=== PATIENT | female | born 1965 | race Caucasian/White ===

== ENCOUNTER → 2020-07-25 13:47 | Outpatient (BNVA) | payer MEDICAID, SELFPAY | PROVIDERS: Visit Provider Physician Assistant | DX: Z47.1 Aftercare following joint replacement surgery (principal); Z48.02 Encounter for removal of sutures; Z96.652 Presence of left artificial knee joint | CPT/HCPCS: 99212 ==

== ENCOUNTER → 2020-08-22 13:46 | Outpatient (BNVA) | payer MEDICAID, SELFPAY | PROVIDERS: PCP Internal Medicine; Referring Provider Internal Medicine; Visit Provider Orthopaedic Surgery | DX: Z47.1 Aftercare following joint replacement surgery (principal); Z96.652 Presence of left artificial knee joint | CPT/HCPCS: 99212 ==

== ENCOUNTER 2020-09-20 10:00 | Outpatient (RCR) | payer MEDICAID, SELFPAY ==
--- NOTE | 2020-08-09 17:09 | MHC.PT.EP ---
[facility] [place] Office [place] Office [place] Office [address] Kevin Womack [address] [phone] F: [phone] F: [phone] F: [phone] F: [phone] Physical Therapy Plan of Care Date of Evaluation: 08/09/20 Date of Surgery: 07/09/2020 Diagnosis: presence of left artificial knee joint Assessment: pt presents to physical therapy with pain, decreased range of motion, decreased strength, impaired functional mobility, impaired postural awareness, and gait deviations. pt is a good candidate for skilled PT due to age, potential remediation of impairments, typical disease/condition progression and prognosis, comorbidities, and motivation. pt would benefit from tailored strengthening and stretching exercise program, functional training, gait training, postural re-training, neuromuscular re-education, modalities as needed for pain, and equipment safety demonstration. Frequency and Duration: The patient will be seen 2x/wk for 6 wks Short Term Goals: pt will be I w/ HEP to promote self-management of condition. pt will improve L knee extension to 0 deg to remediate gait impairments on even ground w/ LRAD. Roll Out Manager Goals: pt will ascend/descend 12 stairs using reciprocal pattern and LRAD to facilitate access to primary living spaces w/in home. pt will ambulate >1500' w/ LRAD on even ground to facilitate return to community ambulation. Treatment Plan: Modalities to reduce pain, spasms and effusion. Manual therapy to restore motion and function. Therapeutic exercise to improve strength and flexibility. Neuromuscular re-education for posture and balance. Therapeutic activities to return to functional activities of daily living. Please sign and return to therapist. Thank you for your referral.
--- NOTE | 2020-09-20 11:13 | MHC.PT.DC ---
[facility] [place] Office [place] Office [place] Office [address] Kevin Womack [address] [phone] F: [phone] F: [phone] F: [phone] F: [phone] Physical Therapy Discharge Report Diagnosis: presence of left artificial knee joint Date of Surgery: 07/09/2020 Date of Evaluation: 08/09/20 Date of Discharge: 09/20/20 Treatments to Date: 11 Cancellations to Date: 0 No Shows to Date: 0 Discharge Status: Achieved Goals Improved Function Independent with HEP Discharge Summary: The patient has improved in her pain severity, pain frequency, and ability to tolerate therapeutic exercise and activity. She reported a statistically significant improvement in her self-reported outcome measure, LEFI. She has achieved full ROM but requires cueing to push her range to maintain the gains she has to this point. She does not feel limited at home and is able to do all the activities she needs to do. She was educated to continue doing her exercises at home to gain strength and continue to work on her range of motion. She was also educated to continue icing her knee at home after exercise. The patient is discharged from this physical therapy plan of care. Electronically signed by: Yarelis Yeh PT, DPT Please sign and return to therapist. Thank you for your referral.
== END 2020-09-20 11:13 | disposition other institution (70) ==
LOC: HO.PT 10:00
PROVIDERS: PCP Internal Medicine; Visit Provider Physician Assistant
DX: Z47.1 Aftercare following joint replacement surgery (principal); Z96.652 Presence of left artificial knee joint
CPT/HCPCS: 97110; 97140; 97161; 97530

== ENCOUNTER → 2020-09-24 13:41 | Outpatient (BNVA) | payer MEDICAID, SELFPAY | PROVIDERS: PCP Internal Medicine; Visit Provider Physician Assistant | DX: M65.322 Trigger finger, left index finger (principal); M65.332 Trigger finger, left middle finger | CPT/HCPCS: 20550; 99202; J1100 ==

== ENCOUNTER 2020-10-22 14:03 | Outpatient (REF) | payer MEDICAID, SELFPAY | END 2020-10-22 14:04 | disposition home or self-care (01) | LOC: HO.HOSX 14:03 | PROVIDERS: Visit Provider Orthopaedic Surgery | DX: Z13.89 Encounter for screening for other disorder (principal) ==

== ENCOUNTER 2020-10-23 13:38 | Outpatient (REF) | payer MEDICAID, SELFPAY ==
--- NOTE | 2020-10-23 13:40 | XR_ITS ---
EXAMINATION: XR KNEE STANDING, BILATERAL XR KNEE, LEFT CLINICAL INFORMATION: Bilateral knee pain. COMPARISON: Left knee radiographs dated 07/10/2020. TECHNIQUE: AP weightbearing view of the right and left knee. Lateral view of the left knee. FINDINGS: Total right knee arthroplasty. No acute hardware or osseous fracture. No perihardware lucency. No abnormal soft tissue calcification. Total left knee arthroplasty. No acute hardware or osseous fracture. No perihardware lucency. Small superior patellar enthesophyte. Small joint effusion. XR/XR knee standing BI IMPRESSION: 1. Total left knee arthroplasty without evidence of complication. Small joint effusion. 2. Total right knee arthroplasty without evidence of complication.
--- NOTE | 2020-10-23 13:40 | XR_ITS ---
EXAMINATION: XR KNEE STANDING, BILATERAL XR KNEE, LEFT CLINICAL INFORMATION: Bilateral knee pain. COMPARISON: Left knee radiographs dated 07/10/2020. TECHNIQUE: AP weightbearing view of the right and left knee. Lateral view of the left knee. FINDINGS: Total right knee arthroplasty. No acute hardware or osseous fracture. No perihardware lucency. No abnormal soft tissue calcification. Total left knee arthroplasty. No acute hardware or osseous fracture. No perihardware lucency. Small superior patellar enthesophyte. Small joint effusion. XR/XR knee LT 2V IMPRESSION: 1. Total left knee arthroplasty without evidence of complication. Small joint effusion. 2. Total right knee arthroplasty without evidence of complication.
== END 2020-10-23 13:39 | disposition home or self-care (01) ==
LOC: HO.HOSX 13:38
PROVIDERS: Visit Provider Orthopaedic Surgery
DX: M25.562 Pain in left knee (principal); M25.561 Pain in right knee; J45.40 Moderate persistent asthma, uncomplicated; Z91.09 Other allergy status, other than to drugs and biological substances
CPT/HCPCS: 73560; 73565; 99212

== ENCOUNTER → 2020-10-26 09:54 | Outpatient (BNVA) | payer MEDICAID, SELFPAY | PROVIDERS: PCP Internal Medicine; Visit Provider Urology | DX: Z76.89 Persons encountering health services in other specified circumstances (principal) ==

== ENCOUNTER 2020-10-30 14:59 | Outpatient (REF) | payer MEDICAID, SELFPAY ==
--- NOTE | 2020-10-31 12:43 | XR_ITS ---
EXAMINATION: XR SHOULDER, RIGHT CLINICAL INFORMATION: Pain and right shoulder. COMPARISON: None TECHNIQUE: AP external rotation, Grashey, scapular Y, and axillary views of the right shoulder. FINDINGS: There is loss of glenohumeral joint space and AC joint space with periarticular spurring. No visible acute fracture, dislocation or lytic process seen. The soft tissues are normal. 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
== END 2020-10-30 15:00 | disposition home or self-care (01) ==
LOC: HO.HOSX 14:59
PROVIDERS: Visit Provider Orthopaedic Surgery
DX: M25.511 Pain in right shoulder (principal)
CPT/HCPCS: 73030

== ENCOUNTER → 2020-10-31 12:42 | Outpatient (BNVA) | payer MEDICAID, SELFPAY | PROVIDERS: PCP Internal Medicine; Visit Provider Orthopaedic Surgery | DX: M75.41 Impingement syndrome of right shoulder (principal) | CPT/HCPCS: 20610; 99212; J1040 ==

== ENCOUNTER 2020-11-21 15:42 | Outpatient (REF) | payer MEDICAID, SELFPAY ==
--- NOTE | ~2020-11-21 | MM_ITS ---
EXAMINATION: MM SCREENING DIGITAL BREAST TOMOSYNTHESIS, BILATERAL CLINICAL INFORMATION: Screening. Asymptomatic. The lifetime risk of breast cancer based on the Tyrer-Cuzick Model is 5.6%. COMPARISON: Mammography: May 06, 2019 and studies dating back to August 20, 2012 TECHNIQUE: Digital breast tomosynthesis is performed in both the craniocaudal and mediolateral oblique views along with computer-aided detection (CAD). Synthesized 2D images are generated from the tomosynthesis. FINDINGS: There are scattered areas of fibroglandular density (ACR BI-RADS breast composition Category b). There are no significant masses, abnormal calcifications, or other abnormalities. MM/MM tomosynthesis screening BI IMPRESSION: There are no significant changes from prior study. ASSESSMENT: BI-RADS 1: Negative RECOMMENDATION: Routine annual mammography screening. This patient's information was entered into a reminder system with a target due date for their next mammogram.
== END 2020-11-21 15:43 | disposition home or self-care (01) ==
LOC: HO.MAMMO 15:42
PROVIDERS: Visit Provider Internal Medicine
DX: Z12.31 Encounter for screening mammogram for malignant neoplasm of breast (principal)
CPT/HCPCS: 77063; 77067

== ENCOUNTER 2020-12-19 15:00 | Outpatient (REF) | payer MEDICAID, SELFPAY ==
[2020-12-23 12:07] LABS: HPV mRNA E6/E7 rflx Not Detected (Not Detected)
== END 2020-12-19 15:01 | disposition home or self-care (01) ==
LOC: HO.LAB 15:00
PROVIDERS: PCP Internal Medicine; Visit Provider Obstetrics & Gynecology
DX: Z01.419 Encounter for gynecological examination (general) (routine) without abnormal findings (principal); Z11.51 Encounter for screening for human papillomavirus (HPV); N95.8 Other specified menopausal and perimenopausal disorders
CPT/HCPCS: 36415; 87624; 88142

== ENCOUNTER → 2021-04-02 09:24 | Outpatient (BNVA) | payer MEDICAID, SELFPAY | PROVIDERS: PCP Internal Medicine; Visit Provider Orthopaedic Surgery | DX: M75.41 Impingement syndrome of right shoulder (principal) | CPT/HCPCS: 20610; 99212; J1040 ==

== ENCOUNTER 2021-04-02 13:45 | Outpatient (RCR) | payer MEDICAID, SELFPAY | END 2021-04-06 13:19 | disposition home or self-care (01) | LOC: HO.PT 13:45 | PROVIDERS: PCP Internal Medicine; Visit Provider Orthopaedic Surgery | DX: M54.40 Lumbago with sciatica, unspecified side (principal) | CPT/HCPCS: 97112; 97161 ==

== ENCOUNTER 2021-04-04 17:20 | Emergency (ER) | payer MEDICAID, SELFPAY ==
[2021-04-04 17:50] VITALS: BP 148/80; PULSE 53; RESP 18; TEMP 36.4; O2SAT 98; BMI 29.0
[2021-04-04] MEDS: Diphth,Pertus(ACell),Tet Adult 0.5 ML SYRINGE IM (19:13)
--- NOTE | 2021-04-04 19:35 | ED_ITS ---
HPI - Wound/Laceration General Chief Complaint: Wound/Laceration Stated Complaint: toe lac Time Seen by Provider: 04/04/21 18:33 History of Present Illness HPI narrative: Patient complains of laceration to right small toe and nail avulsion, she was walking in sandals hit into something and had bleeding and noticed the toe was nail was off as well as a cut to her right little toe Related Data Previous Rx's Medication Instructions Recorded sennosides 8.6 mg capsule 8.6 mg PO DAILY #1 cap 07/12/20 sennosides 8.6 mg capsule 8.6 mg PO BEDTIME #30 cap 07/26/20 Advair Diskus 250 mcg-50 mcg/dose 1 inh INHALATION BID #60 ea NS 08/15/20 powder for inhalation diclofenac sodium 75 mg 75 mg PO BID #60 tab 08/22/20 tablet,delayed release tamsulosin 0.4 mg capsule 0.4 mg PO DAILY 30 Days #30 cap 10/15/20 estradiol 10 mcg vaginal tablet 10 mcg VAGINAL DAILY #30 tab 12/19/20 amoxicillin 500 mg tablet 2,000 mg PO ONCE 1 Days #4 tab 02/13/21 Allergies Allergy/AdvReac Type Severity Reaction Status Date / Time No Known Allergies Allergy Verified 04/04/21 17:50 Review of Systems Review of Systems: positive for laceration and avulsion of nail to right small toe Negatives are no numbness no weakness no tingling, no other injury Yes all other systems are reviewed and are negative [facility]LY [facility] Past Medical History Source: nursing notes reviewed Medical History Hesitancy of micturition Moderate persistent asthma Surgical History History of total left knee replacement (~06/2020) Social History Social History Alcohol intake: former Advance Directives: No Advance Directives Information Provided: No Patient : No Current occupational status: unemployed Current occupation: Right Handed Gender identity: female Physical Exam Vital Signs: Vital Signs: Last Vital Signs Temp 97.6 F 04/04/21 17:50 Pulse 53 04/04/21 17:50 Resp 18 04/04/21 17:50 BP 148/80 H 04/04/21 17:50 Pulse Ox 98 04/04/21 17:50 Body Mass Index 29.0 general appearance no acute distress Head is normocephalic atraumatic Neck is supple Respiratory no distress The back full range of motion neck Extremities full range of motion x4 The right 5th toe has no tenderness or swelling but the nail is avulsed and there is a superficial 1 cm laceration on the distal phalanx of the toe, otherwise neurovascular intact Course Course Course Narrative: superficial laceration of the right big toe was cleansed and irrigated with normal saline, Steri-Strips are applied and a sterile dressing is applied for the nail avulsion and the superficial laceration of the toe Toe had full range of motion and no evidence of fracture on physical exam Discharge Plan Discharge Clinical Impression: Laceration, Avulsion of nail Patient Disposition: Home, Self-Care Additional Instructions: I applied tape to the small laceration and you can remove the tape and 5 days The nail was off and it should grow back on its own over time Return any time any sign of infection any worse condition You got a tetanus shot Prescriptions: No Action senna 8.6 mg capsule 8.6 mg PO DAILY Qty: 1 RF: 0 senna 8.6 mg capsule 8.6 mg PO BEDTIME Qty: 30 RF: 0 fluticasone propion-salmeterol [Advair Diskus] 250-50 mcg/dose blister with device 1 inh inhalation BID Qty: 60 RF: 3 tamsulosin 0.4 mg capsule 0.4 mg PO DAILY 30 Days Qty: 30 RF: 6 amoxicillin 500 mg tablet 2,000 mg PO ONCE 1 Days Qty: 4 RF: 3 estradiol 10 mcg tablet 10 mcg vaginal DAILY Qty: 30 RF: 8 diclofenac sodium 75 mg tablet,delayed release (DR/EC) 75 mg PO BID Qty: 60 RF: 2 Interventions: ED Discharge Assessment Last Done: 04/04/21 19:42 Discharge Date/Time: 04/04/21 19:44
== END 2021-04-04 19:44 | disposition home or self-care (01) ==
PROVIDERS: Emergency Provider Emergency Medicine; PCP Internal Medicine
DX: S91.214A Laceration without foreign body of right lesser toe(s) with damage to nail, initial encounter (principal); J45.40 Moderate persistent asthma, uncomplicated; Z79.899 Other long term (current) drug therapy; W18.40XA Slipping, tripping and stumbling without falling, unspecified, initial encounter; Y93.01 Activity, walking, marching and hiking; Y92.9 Unspecified place or not applicable; Y99.9 Unspecified external cause status
CPT/HCPCS: 90471; 90715; 99284

== ENCOUNTER → 2021-04-17 15:33 | Outpatient (BNVA) | payer MEDICAID, SELFPAY | PROVIDERS: PCP Internal Medicine; Visit Provider Internal Medicine Pulmonary Disease | DX: J45.40 Moderate persistent asthma, uncomplicated (principal); Z91.09 Other allergy status, other than to drugs and biological substances | CPT/HCPCS: 99212 ==

== ENCOUNTER 2021-05-11 12:58 | Emergency (ER) | payer MEDICAID, SELFPAY ==
--- NOTE | ~2021-05-11 | XR_ITS ---
EXAMINATION: XR CHEST CLINICAL INFORMATION: Chest pain COMPARISON: Chest 10/17/2019 TECHNIQUE: Frontal view of the chest was obtained. FINDINGS: The lungs are well-expanded and clear. The heart size and pulmonary vascularity is normal. There is moderate spondylosis dorsal spine. No lytic process seen. XR/XR chest 1V IMPRESSION: Unremarkable chest exam. Moderate dorsal spine spondylosis.
[2021-05-11 13:00] VITALS: BP 120/65; PULSE 74; RESP 18; TEMP 37; O2SAT 97; BMI 27.1
--- NOTE | 2021-05-11 13:26 | ECG_ITS ---
Test Reason : SOB Blood Pressure : / mmHG Vent. Rate : 061 BPM Atrial Rate : 061 BPM P-R Int : 142 ms QRS Dur : 094 ms QT Int : 410 ms P-R-T Axes : 023 010 025 degrees QTc Int : 412 ms Normal sinus rhythm Nonspecific ST and T wave abnormality Abnormal ECG When compared with ECG of 19-JUN-2020 10:56, No significant change was found Referred By: Catrachito Harris Electronically Signed By:MARY OLIVEROS
--- NOTE | 2021-05-11 13:27 | ED.URI ---
HPI - URI/Sore Throat General Chief Complaint: Upper Respiratory Symptoms Stated Complaint: SOB Time Seen by Provider: 05/11/21 13:26 Source: patient Mode of arrival: ambulatory History of Present Illness HPI Narrative: THIS IS OF 56 YEARS OLD THE PATIENT PRESENTED TO THE EMERGENCY DEPARTMENT WITH A CHIEF COMPLAINT OF SHORTNESS OF BREATH SHE STATES THAT SHE HAS A HISTORY OF ASTHMA HE HAS BEEN USING AN INNER WE WITHOUT ANY IMPROVEMENT. SHE HAS BEEN VACCINATED FOR COVID A BUT SHE HAS BEEN IN CONTACT WITH THE DAUGHTER WAS COVID POSITIVE MD elicited complaint: cough Pertinent past history: asthma Onset (ago): day(s) (1) Consistency: constant Severity: moderate Able to tolerate fluids by mouth: Yes Exacerbating factors: nothing Context: sick contacts Related Data Previous Rx's Medication Instructions Recorded sennosides 8.6 mg capsule (senna) 8.6 mg PO DAILY #1 cap 07/12/20 sennosides 8.6 mg capsule (senna) 8.6 mg PO BEDTIME #30 cap 07/26/20 Advair Diskus 250 mcg-50 mcg/dose 1 inh INHALATION BID #60 ea NS 08/15/20 powder for inhalation (fluticasone propion-salmeterol) diclofenac sodium 75 mg 75 mg PO BID #60 tab 08/22/20 tablet,delayed release tamsulosin 0.4 mg capsule 0.4 mg PO DAILY 30 Days #30 cap 10/15/20 estradiol 10 mcg vaginal tablet 10 mcg VAGINAL DAILY #30 tab 12/19/20 amoxicillin 500 mg tablet 2,000 mg PO ONCE 1 Days #4 tab 02/13/21 albuterol sulfate 90 mcg/actuation 2 puff INHALATION Q4-6H PRN 30 04/17/21 aerosol inhaler Days #1 ea prednisone 20 mg tablet 60 mg PO DAILY #15 tab 05/11/21 Allergies Allergy/AdvReac Type Severity Reaction Status Date / Time No Known Allergies Allergy Verified 05/11/21 13:00 Review of Systems Review of Systems: Yes all other systems are reviewed and are negative ENT: Reports system reviewed and no additional complaints, except as documented Cardiovascular: Cardiovascular: Reports chest pain Respiratory: Respiratory: Reports cough Genitourinary: Genitourinary: Reports no additional female genitourinary complaints Integumentary/Breasts: Skin/Breast: Reports system reviewed and no additional complaints, except as docu PMFSH Past Medical History Attestation statement: The following information was validated with the patient. Medical History Anxiety Arthritis Depression Hesitancy of micturition Moderate persistent asthma Surgical History History of total left knee replacement (~06/2020) Social History Social History Alcohol intake: never Patient Tobacco Use Status: Never used Tobacco Use of substances other than those prescribed or required for medical reasons: No Advance Directives: No Advance Directives Information Provided: No Patient : No Current occupational status: unemployed Current occupation: Right Handed Gender identity: female Physical Exam Vital Signs: Vital Signs: Last Vital Signs Temp 98.6 F 05/11/21 13:00 Pulse 57 05/11/21 16:22 Resp 16 05/11/21 16:22 BP 136/80 05/11/21 16:22 Pulse Ox 97 05/11/21 16:22 Body Mass Index 27.1 Const: General: cooperative, comfortable and anxious Nutritional Appearance: average body habitus HENMT: Other: HEAD EYES NOSE AND THROAT EXAM WITHIN NORMAL LIMIT Mouth: Normal oral and palatal mucosa present Neck: Other: NECK IS SUPPLE Thyroid: Thyroid normal Chest: Chest palpation & inspection: normal inspection of the chest and normal palpation of entire chest wall Resp: Effort & Inspection: normal respiratory effort Auscultation: clear to auscultation bilaterally Cardio: Jugular venous distension: no JVD Rate: regular rate Rhythm: regular rhythm GI: Inspection: Yes normal to inspection Palpation (GI): Soft to palpation, nontender and no guarding Auscultation: normal bowel sounds Skin: General skin exam: no rashes or lesions noted Course Course Course Narrative: Patient oxygenating well O2 sat 99% on room air chest x-ray negative she is covid be positive but I think she can go home therefore will proceed with discharge Discharge Plan Discharge Clinical Impression: COVID Patient Disposition: Home, Self-Care Prescriptions: New prednisone 20 mg tablet 60 mg PO DAILY Qty: 15 RF: 0 No Action senna 8.6 mg capsule 8.6 mg PO DAILY Qty: 1 RF: 0 senna 8.6 mg capsule 8.6 mg PO BEDTIME Qty: 30 RF: 0 fluticasone propion-salmeterol [Advair Diskus] 250-50 mcg/dose blister with device 1 inh inhalation BID Qty: 60 RF: 3 tamsulosin 0.4 mg capsule 0.4 mg PO DAILY 30 Days Qty: 30 RF: 6 amoxicillin 500 mg tablet 2,000 mg PO ONCE 1 Days Qty: 4 RF: 3 albuterol sulfate 90 mcg/actuation HFA aerosol inhaler 2 puff inhalation Q4-6H PRN (Reason: shortness of breath or wheezing) 30 Days Qty: 1 RF: 3 estradiol 10 mcg tablet 10 mcg vaginal DAILY Qty: 30 RF: 8 diclofenac sodium 75 mg tablet,delayed release (DR/EC) 75 mg PO BID Qty: 60 RF: 2
[2021-05-11 13:32] VITALS: BP 128/79; PULSE 60; RESP 17; O2SAT 96
[2021-05-11 13:54] LABS: MANUAL DIFF FLAG NO
[2021-05-11 13:56] LABS: Basophils Percent Auto 0.6 % (0-2); Eosinophils Absolute Auto 0.1 X10*3/uL (0.0-0.4); Eosinophils Percent Auto 1.7 % (0-4); Hematocrit 35.9 % (37-47); Hemoglobin 11.5 g/dl (12.0-16.0); Imm Gran Abs Auto 0.01 X10*3/uL (0.00-0.03); Imm Gran Pct Auto 0.2 % (0.0-0.4); Lymphocytes Absolute Auto 1.3 X10*3/uL (1.2-4.9); Lymphocytes Percent Auto 27.6 % (20-40); Mean Corpuscular Hemoglobin 26.8 pg (27.0-33.0); Mean Corpuscular Volume 83.7 fL (80-98); Mean Platelet Volume 10.3 fL (9.4-12.3); Monocytes Absolute Auto 0.7 X10*3/uL (0.1-1.2); Monocytes Percent Auto 14.3 % (2-11); Neutrophils Absolute Auto 2.6 X10*3/uL (2.0-8.3); Neutrophils Percent Auto 55.6 % (45-73); Platelet Count 299 X10*3/uL (160-400); Red Blood Count 4.29 X10*6/uL (4.20-5.50); Red Cell Distribution Width 14.4 % (11.0-16.0); White Blood Count 4.7 X10*3/uL (4.8-10.8)
[2021-05-11 14:04] LABS: COVID-19 Test Positive (Negative)
[2021-05-11 14:08] LABS: D Dimer 336 NG/ML
[2021-05-11 14:19] LABS: Alanine Aminotransferase 22 U/L (0-31); Alkaline Phosphatase 110 U/L (39-117); Anion Gap 14 (12-20); Aspartate Amino Transferase 40 U/L (5-31); Bilirubin Total 0.3 mg/dL (0.0-1.0); Blood Urea Nitrogen 17 mg/dL (9-16); Calcium 8.5 mg/dL (8.4-10.2); Carbon Dioxide 22 mmol/L (22-29); Chloride 109 mmol/L (96-108); Creatinine Clr Calc Pharmacy 79.6; Estimated Glomerular Filt Rate > 60; Glucose Random 110 mg/dL (60-115); Potassium 3.6 mmol/L (3.3-5.1); Sodium 141 mmol/L (135-145); Total Protein 6.9 g/dL (6.5-8.0)
[2021-05-11 14:22] LABS: B Type Natriuretic Peptide < 10 pg/mL (<100); Troponin-I High Sensitivity < 3.5 ng/L (<3.5-17.0)
[2021-05-11 15:35] VITALS: BP 130/68; PULSE 55; RESP 17; O2SAT 99
[2021-05-11] MEDS: methylPREDNISolone Sod Succ 125 MG/2 ML VIAL IVPUSH (16:21)
[2021-05-11 16:22] VITALS: BP 136/80; PULSE 57; RESP 16; O2SAT 97
== END 2021-05-11 17:00 | disposition home or self-care (01) ==
PROVIDERS: Emergency Provider Emergency Medicine; PCP Internal Medicine
DX: U07.1 COVID-19 (principal); R06.02 Shortness of breath; J45.909 Unspecified asthma, uncomplicated
CPT/HCPCS: 36415; 71045; 80053; 83880; 84484; 85025; 85379; 87635; 93005; 96374; 99284; 99285; J2930

== ENCOUNTER → 2021-05-22 14:57 | Outpatient (BNVA) | payer MEDICAID, SELFPAY | PROVIDERS: PCP Internal Medicine | DX: R39.11 Hesitancy of micturition (principal) | CPT/HCPCS: 51798; 99212 ==

== ENCOUNTER 2021-06-27 11:00 | Outpatient (RCR) | payer MEDICAID, SELFPAY | END 2021-06-27 11:52 | disposition home or self-care (01) | LOC: HO.PT 11:00 | PROVIDERS: PCP Internal Medicine; Visit Provider Physician Assistant | DX: M54.5 Low back pain (principal) | CPT/HCPCS: 97110; 97150; 97161 ==

== ENCOUNTER → 2021-08-27 14:52 | Outpatient (BNVA) | payer MEDICAID, SELFPAY | PROVIDERS: PCP Internal Medicine | DX: R33.9 Retention of urine, unspecified (principal); R39.11 Hesitancy of micturition; J45.40 Moderate persistent asthma, uncomplicated; F41.8 Other specified anxiety disorders; Z96.652 Presence of left artificial knee joint | CPT/HCPCS: 99212 ==

== ENCOUNTER 2021-10-22 15:06 | Outpatient (REF) | payer MEDICAID, SELFPAY ==
--- NOTE | ~2021-10-22 | XR_ITS ---
EXAMINATION: XR SHOULDER, LEFT CLINICAL INFORMATION: Other shoulder lesions, left shoulder COMPARISON: Radiographs left shoulder 06/17/2007. TECHNIQUE: Left shoulder is imaged in 4 views. FINDINGS: No fracture, dislocation, destructive process. There is some fine calcific tendinosis in region of distal superior rotator cuff some mild narrowing at the radial tuberosity. There is a small spur superior lateral acromium. The glenohumeral joint and acromioclavicular joints are unremarkable. Left lung apex is clear. There is hardware with probable disc spacers lower cervical spine. XR/XR shoulder LT min 2V IMPRESSION: 1. Mild calcific tendinosis in region of distal supraspinatus tendon. Small spur greater tuberosity. 2. Acromioclavicular alignment normal. Small spur superior lateral acromium.
== END 2021-10-22 15:07 | disposition home or self-care (01) ==
LOC: CF 15:06
PROVIDERS: PCP Internal Medicine; Visit Provider Internal Medicine Pulmonary Disease
DX: J44.9 Chronic obstructive pulmonary disease, unspecified (principal); J45.40 Moderate persistent asthma, uncomplicated; U09.9 Post COVID-19 condition, unspecified; Z87.891 Personal history of nicotine dependence
CPT/HCPCS: 73030; 99212

== ENCOUNTER 2021-11-01 07:21 | Outpatient (REF) | payer MEDICAID, SELFPAY ==
--- NOTE | ~2021-11-01 | CT_ITS ---
EXAMINATION: CT CHEST WITHOUT CONTRAST CLINICAL INFORMATION: Post COVID condition. COMPARISON: Previous chest x-rays, the most recent 05/11/2021. TECHNIQUE: Multidetector volumetric CT imaging of the chest was done. Axial MIP volume rendering provided. Sagittal and coronal reformatted images were obtained. This CT examination was performed using dose optimization techniques as appropriate, variously including the following: *Automated exposure control *Adjustment of mA and/or kV according to patient size (this includes techniques or standardized protocols for targeted exams where dose is matched to indication/reason for exam; i.e. extremities or head) *Use of iterative reconstruction technique DLP: 148 mGy-cm FINDINGS: WEAVING LOOM OPERATOR: Unremarkable. LUNGS: There is a 3 mm peripheral or subpleural left upper lobe nodule (axial image 75, series 7). Peripheral or subpleural left upper lobe nodule (axial image 103, series 7). There is scarring or atelectasis in the medial right lower lobe adjacent to a vertebral body bony osteophyte. No evidence of interstitial lung disease or pulmonary fibrosis is seen. No endobronchial or endotracheal lesion. No bronchiectasis. MEDIASTINUM: The mediastinum is normal. PLEURA: There is no pleural effusion. No pleural mass or thickening. AXILLAE: No lymphadenopathy. UPPER ABDOMEN: There is a 2 cm soft tissue nodule in the left upper quadrant. This probably represents a splenule. This is unchanged from the lumbar spine CT of February 2009. OSSEOUS STRUCTURES: There are degenerative changes of the spine and shoulders. CT/CT chest wo con IMPRESSION: No evidence of fibrotic lung disease. Two small left upper lobe nodules, probably representing subpleural lymph nodes. mild scarring in the right lower lobe adjacent to vertebral body bony osteophyte. Fleischner guidelines were followed.
== END 2021-11-01 07:22 | disposition home or self-care (01) ==
LOC: HO.CT 07:21
PROVIDERS: PCP Internal Medicine; Visit Provider Internal Medicine Pulmonary Disease
DX: U09.9 Post COVID-19 condition, unspecified (principal)
CPT/HCPCS: 71250

== ENCOUNTER 2021-11-15 10:12 | Outpatient (REF) | payer MEDICAID, SELFPAY ==
--- NOTE | 2021-11-15 17:37 | PFT_ITS ---
INDICATION: Dyspnea. SPIROMETRY: The FEV1 to FVC 85% with an FEV1 of 2.11 L, which is 84% predicted, an FVC of 2.49 L which is 79% predicted. No significant response to bronchodilators noted. Maximum voluntary ventilation 73% predicted. LUNG VOLUMES: Total lung capacity 86% predicted with an expiratory reserve volume of 24% predicted. DIFFUSION CAPACITY: DLCO 66% predicted. COMPARISONS: PFTs from 2020. INTERPRETATION: No definitive obstructive nor restrictive ventilatory defects identified. No significant response to bronchodilators noted. There is some mild decrease in maximum voluntary ventilation, which could be due to secondary to deconditioning. Lung volumes demonstrate a low normal total lung capacity and a decrease in the expiratory reserve volume likely secondary to an elevated BMI. The patient does have a moderate diffusion impairment that is out of proportion to the above findings. When compared to previous PFTs in 2020, there is significant decrease in the FVC. No significant change in the FEV1. Significant improvement of total lung capacity, but significant decrease in the diffusion capacity. Clinical correlation warranted. MD MAICO Dewitt/MARIBEL / [id number]
== END 2021-11-15 10:13 | disposition home or self-care (01) ==
LOC: HO.RESP 10:12
PROVIDERS: PCP Internal Medicine; Visit Provider Internal Medicine Pulmonary Disease
DX: U09.9 Post COVID-19 condition, unspecified (principal)
CPT/HCPCS: 94060; 94727; 94729

== ENCOUNTER 2021-11-25 14:16 | Outpatient (REF) | payer MEDICAID, SELFPAY ==
--- NOTE | ~2021-11-25 | MM_ITS ---
EXAMINATION: MM SCREENING DIGITAL BREAST TOMOSYNTHESIS, BILATERAL CLINICAL INFORMATION: Screening. Asymptomatic. The lifetime risk of breast cancer based on the Tyrer-Cuzick Model is 5%. COMPARISON: Mammography: 11/21/2020, 10/06/2019, 09/09/2018 TECHNIQUE: Digital breast tomosynthesis is performed in both the craniocaudal and mediolateral oblique views along with computer-aided detection (CAD). Synthesized 2D images are generated from the tomosynthesis. FINDINGS: There are scattered areas of fibroglandular density (ACR BI-RADS breast composition Category b). There are no significant masses, abnormal calcifications, or other abnormalities. No interval architectural abnormality. Scattered vascular calcifications again seen. Skin contours are smooth. No significant changes from prior exam. MM/MM tomosynthesis screening BI IMPRESSION: No mammographic evidence of malignancy. ASSESSMENT: BI-RADS 1: Negative RECOMMENDATION: Routine annual mammography screening. This patient's information was entered into a reminder system with a target due date for their next mammogram.
== END 2021-11-25 14:17 | disposition home or self-care (01) ==
LOC: HO.MAMMO 14:16
PROVIDERS: Visit Provider Internal Medicine
DX: Z12.31 Encounter for screening mammogram for malignant neoplasm of breast (principal)
CPT/HCPCS: 77063; 77067

== ENCOUNTER 2021-11-27 15:00 | Outpatient (RCR) | payer MEDICAID, SELFPAY | END 2021-12-06 14:40 | disposition home or self-care (01) | LOC: HO.PT 15:00 | PROVIDERS: PCP Internal Medicine; Visit Provider Physical Medicine & Rehabilitation | DX: M67.814 Other specified disorders of tendon, left shoulder (principal) | CPT/HCPCS: 97110; 97161; 97530 ==

== ENCOUNTER → 2021-12-03 14:43 | Outpatient (BNVA) | payer MEDICAID, SELFPAY | PROVIDERS: PCP Internal Medicine | DX: R39.11 Hesitancy of micturition (principal) | CPT/HCPCS: 51798; 99212 ==

== ENCOUNTER → 2021-12-10 07:35 | Outpatient (REF) | payer MEDICAID, SELFPAY ==
--- NOTE | ~2021-12-10 | XR_ITS ---
EXAMINATION: XR LUMBOSACRAL SPINE CLINICAL INFORMATION: Low back pain. COMPARISON: None. TECHNIQUE: 3 views of the lumbosacral spine. 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 There is normal lumbar lordosis. There are cages for disc fusion at L5-S1, L4-L5 and a disc prosthesis with mika at the L3-L4 disc level, stabilized with posterior hardware. Loss of L2-L3, L1-L2, and transitional-L1 vertebral height. There is mild ventral spondylosis in upper lumbar spine. No lytic process. The SI joints are symmetrical and normal. There is minimal dextroscoliosis. The paravertebral soft tissues are normal. XR/XR lumbar spine 2-3V IMPRESSION: There are 6 lumbar vertebrae. The first lumbar vertebra is designated as transitional vertebra. There are disc fusions at L3-L4, L4-L5 L5-S1 disc levels with posterior hardware at the L3-L4 disc level for stabilization. No visible acute fracture or dislocation. There is minimal dextroscoliosis mid lumbar spine.
--- NOTE | 2021-12-10 07:39 | CA_ITS ---
Transthoracic Echocardiogram Patient (Last, First, Middle): Miguelina Watson, Gender: Female Date of : 1965 Age: 56 Procedure Date: 12/10/2021 Procedure Type: Transthoracic Echocardiogram Location: OP Height: 160.02 cm Weight: 74.84 kg BSA: 1.78 m2 Heart Rate: bpm BP: 145 / 80 mmHg Hospice Aide: RENÉ Referring MD: Dutch Snider MD Symptoms: U09.9 - Post COVID-19 condition, unspecified Study Quality: Good ECG Rhythm: Sinus Conclusions: - The left ventricular systolic function is normal. The calculated ejection fraction is 65% by biplane method. - No obvious valvular pathology seen on this study. Findings Left Ventricle Normal left ventricular cavity size. There is mildly increased left ventricular wall thickness. The left ventricular systolic function is normal. The calculated ejection fraction is 65% by biplane method. There is no evidence of regional wall motion abnormalities. Diastolic function is normal for age. Right Ventricle Normal right ventricular cavity size and systolic function. Atria Both atria are normal in size. Aortic Valve There is a normal trileaflet aortic valve. There is no aortic valve stenosis. There is no aortic valve regurgitation. Mitral Valve The mitral valve appears normal. There is trace mitral valve regurgitation. There is no mitral valve stenosis. Pulmonic Valve The pulmonic valve was not well visualized. Tricuspid Valve Normal tricuspid valve structure. There is trace tricuspid valve regurgitation. The pulmonary artery systolic pressure is normal. Great Vessels The aortic annulus, sinuses of valsalva, and asc aorta are normal in size. Venous The inferior vena cava is normal in size and collapses greater than 50% with inspiration. Pericardium/Pleural There is no evidence of pericardial effusion. Prior Study Comparison No prior study available for comparison. Recommendations, Care & Conclusions No obvious valvular pathology seen on this study. Measurements M-Mode Liner Measurements Normals - Women/Men IVSd: 1.26 0.6-0.9/0.6-1.0 cm LVIDd: 5.57 3.9-5.3/4.2-5.9 cm LVIDd Index: 3.13 1.9-3.2 cm/m2 LVPWd: 0.98 0.6-0.9/0.6-1.0 cm LV Mass: 314.95 67-162/88-224g LV Mass Index: 176.94 43-95/49-115 g/m2 M-Mode Volumes LV EDV: 152.00 2D Linear Measurements IVSd: 1.05 0.6-0.9/0.6-1.0 cm LVIDd: 5.65 3.9-5.3/4.2-5.9 cm LVIDd Index: 3.17 2.4-3.2/2.2-3.1 cm/m2 LVIDs: 3.41 2.0-3.6 cm LVPWd: 1.05 0.7-1.1 cm Ao Root: 3.20 2.1-3.5 cm LA Diam: 3.90 2.7-3.8/3.0-4.0 cm LAIDs Index: 2.19 1.5-2.3 cm/m2 LV Mass: 296.53 67-162/88-224 g LV Mass Index: 166.59 43-95/49-115 g/m2 LVOT Diam: 2.10 3.0+(-)1.3 cm 2D Systolic Function EF 4C: 65.40 >55% EF 2C: 64.80 >55% EF BiP: 65.10 >55% Mitral Valve MV Pk E: 0.44 MV PK A: 0.42 MV Decel Time: 227.00 E/A: 1.10 E'Lateral: 7.29 E'Medial: 7.72 E/E' Med: 5.70 E/E' Lat: 6.00 PHT: 66.00 MVA PHT: 3.33 Decel [place]: 1.95 Aortic Valve AoV Pk Wale: 1.57 AoV Pk Grad: 10.00 LVOT LVOT Pk Wale: 1.06 LVOT Mn Wale: 0.70 LVOT VTI: 0.26 LVOT Pk Grad: 4.00 LVOT Mn Grad: 2.00 LVOT Diam: 2.10 LVOT Area: 3.46 Diastolic Function MV Pk E: 0.44 MV Pk A: 0.42 E/A: 1.10 E'Medial: 7.72 E/E' Med: 5.70 E' Laterial: 7.29 E/E' Lat: 6.00 Right Ventricle TAPSE (mm): 2.69 TVS' Wale: 14.90 Tricuspid Valve TR Pk Wale: 2.30 TR Pk Grad: 21.00 RA Press: 3.00 RVSP: 24.00 Great Vessels Aorta Ao Root-2D: 3.20 2.0-3.7 cm Ao Asc: 3.00 2.1-3.4 cm Updated in Other Vendor System with Status of Final Job Webster MD electronically signed on 12/10/2021 5:14:24 PM with status of Final
== END ==
LOC: HO.CARD 07:35
PROVIDERS: Absent Provider Registered Nurse; PCP Internal Medicine; Visit Provider Internal Medicine Pulmonary Disease
DX: M54.50 Low back pain, unspecified (principal)
CPT/HCPCS: 72100; 93306

== ENCOUNTER 2021-12-16 06:17 | Day surgery (SDC) | payer MEDICAID, SELFPAY ==
[2021-12-10 09:39] VITALS: BMI 29.7
--- NOTE | 2021-12-12 12:45 | MHC.SHP ---
Pre-Procedural Eval Section A Date of Service: 12/12/21 The patient is an INPATIENT: No Changes since office visit: No Cold of Flu in the past 2 weeks, No New Medical Problems, No Changes in Medication and No Patient answered all questions The History & Physical has been completed within 30 days and I have reviewed it.: Yes Section B Chief Complaint: cataract right eye Allergies: Allergies Allergy/AdvReac Type Severity Reaction Status Date / Time No Known Allergies Allergy Verified 12/03/21 14:45 Plan Diagnosis/Plan: Unchanged I have reviewed the history and physical and performed a pertinent physical examination on my patient. No changes have occurred unless specified.
[2021-12-16 06:49] VITALS: BP 123/65; PULSE 63; RESP 16; TEMP 36.6; O2SAT 96
[2021-12-16] MEDS: Tetracaine HCl/PF 0.5% Oph Sol 4 ML DROPS 1 DROP EYE-RIGHT (06:50)
[2021-12-16] MEDS: Tropicamide 1 % Ophth Sol 3 ML BTL 1 DROP EYE-RIGHT ×3 (06:52→06:58)
[2021-12-16] MEDS: Phenylephrine HCL 2.5% Oph SoL 2 ML BOTTLE 1 DROP EYE-RIGHT ×3 (06:54→07:00)
--- NOTE | 2021-12-16 07:08 | HO.ANESPROP2 ---
HPI - Anesthesia Eval Consult details Narrative: Right eye Cataract PMFSH Active Problems Active Problems: All Active Problems (Updated 12/10/21 @ 09:42 by Bijal Cisneros RN) Status post left knee replacement (Acute) Trigger finger, left index finger (Acute) Trigger finger, left middle finger (Acute) Environmental allergies (Acute) Rotator cuff impingement syndrome of right shoulder (Acute) COVID (Acute) Post-COVID syndrome (Acute) Hesitancy of micturition (Acute) Moderate persistent asthma (Acute) Past Medical History Medical History (Updated 12/10/21 @ 09:42 by Bijal Cisneros RN) Anxiety Arthritis COPD (chronic obstructive pulmonary disease) COVID-19 vaccine series completed Depression Hesitancy of micturition History of COVID-19 Moderate persistent asthma Post-COVID syndrome Family History Family history of problems with anesthesia: No Surgical History Surgical History (Updated 12/10/21 @ 09:12 by Bijal Cisneros RN) H/O colonoscopy History of back surgery History of carpal tunnel surgery of right wrist History of total left knee replacement (~06/2020) History of total right knee replacement Hx of shoulder surgery History of Problems with Anesthesia: No Social History Social History Are you a primary home health care social worker to a significant other at home: No Do you presently have visiting nurse or other home services: No Alcohol intake: never Patient Tobacco Use Status: Former Tobacco user Quit Date: 1996 Tobacco use type: Cigarette Use of substances other than those prescribed or required for medical reasons: No Have you been hit, kicked, punched, or otherwise hurt by someone within the past year? If so, by whom?: No Are you DNR?: No Advance Directives: Yes Advance Directives Information Provided: Yes Advance Directives on File: Yes Advance Directives Date on File: 11/12/17 Recently lost weight without trying: No Eating poorly because of decreased appetite: No Nutrition Risks: No Nutritional Risk Current occupational status: unemployed Current occupation: Right Handed Gender identity: Female Meds Allergies Allergy/AdvReac Type Severity Reaction Status Date / Time No Known Allergies Allergy Verified 12/03/21 14:45 Active Medications: Current Medications Lactated Ringer's (Lr) 500 mls @ 50 mls/hr IVCONT .Q10H OLESYA Povidone Iodine (Povidone Iodine 5 % Ophth Soln 30 Ml Bottle) 1 appl EYE-RIGHT PREOP PRN PRN Reason: Pre-Op Surgical Implant Prophy Home Medications Medication Instructions Recorded Confirmed Last Taken Type acetaminophen 500 mg tablet 500 mg PO Q12H PRN 12/03/21 12/10/21 Unknown History diphenhydramine HCl 25 mg capsule 25 mg PO BEDTIME 12/03/21 12/10/21 Unknown History (Banophen) fluticasone propionate 50 1 spray INTRANASAL BID 12/03/21 12/10/21 Unknown History mcg/actuation nasal spray,suspension gabapentin 300 mg capsule 300 mg PO BID 12/03/21 12/10/21 Unknown History hydrochlorothiazide 25 mg tablet 25 mg PO DAILY 12/03/21 12/10/21 Unknown History meloxicam 15 mg tablet 15 mg PO DAILY 12/03/21 12/10/21 Unknown History montelukast 10 mg tablet 10 mg PO BEDTIME 12/03/21 12/10/21 Unknown History omeprazole 20 mg capsule,delayed 20 mg PO DAILY 12/03/21 12/10/21 Unknown History release zolpidem 10 mg tablet 10 mg PO BEDTIME 12/03/21 12/10/21 Unknown History albuterol sulfate 2.5 mg INHALATION TID PRN 12/10/21 12/10/21 Unknown History yvwtnlsjdq-ceamrsp-qmzcreym 50 1 cap PO Q8H PRN 12/10/21 12/10/21 Unknown History mg-325 mg-40 mg capsule Exam Exam Date and Time: December 16, 2021 0708 Height,Weight and Vital Signs: Height 5 ft 2.75 in Weight 75.478 kg Last Vital Signs Temp 97.8 F 12/16/21 06:49 Pulse 63 12/16/21 06:49 Resp 16 12/16/21 06:49 BP 123/65 12/16/21 06:49 Pulse Ox 96 12/16/21 06:49 Airway Mallampati Class: II TM Dist: >3cm Neck ROM: Full Loose/Missing/Broken Teeth: No Heart: rrr+s1s2 Lungs: cta b/l Assessment and Plan Assessment Anesthesia Assessment: Anesthesia Plan Discussed and Chart Reviewed Final Anesthetic Review Family History of Problems with Anesthesia: No History of Problems with Anesthesia: No NPO: Yes ASA Class: III Final Preanesthetic Review: No Changes in Pt Med Stat, Meds/Allgs Chart Reviewed, Consent Obtained/Reviewed and Anes Risks/Benef Reviewed Patient Risk: Intermediate Procedure Risk: Low Assessment/Block/Sedation in SS: Assess/Block/Sedation-SS Anesthetic Plan Anesthetic Plan: MAC: and Agree w/ Assess. and Plan Disposition: Standard PACU
[2021-12-16] MEDS: Lactated Ringers 500 ML 50 ML IVCONT (07:18)
--- NOTE | 2021-12-16 07:59 | HO.PNOPHT ---
Ophthalmology Procedure Procedure Date of Service: 12/16/21 Ophthalmology Viscoelastic: Albino Herman Dual Pack Pro Ophthalmology Lenses: ar40m -3 Procedure Notes: PREOPERATIVE DIAGNOSIS: Decreased visual acuity right eye secondary to cataract POSTOPERATIVE DIAGNOSIS: Same PROCEDURE: Right cataract extraction with intraocular lens insertion SURGEON: Anuel Chaves M.D. ANESTHESIA: Topical/MAC ESTIMATED BLOOD LOSS: None COMPLICATIONS: None After obtaining informed consent, the patient was brought to the operating room suite and placed in the supine position. After adequate sedation per anesthesia, topical drops of Tetracaine were given to the right eye. The eye was then prepped and draped in the usual sterile fashion. The operating room microscope was then positioned over the operative eye and a lid speculum placed. A paracentesis was created. Viscoelastic was then instilled into the anterior chamber. A three plane incision was then created temporally, utilizing a 2.85 mm keratome. Capsulotomy forceps were then utilized to create a circular tear capsulotomy. Hydrodissection and hydrodelineation were carried out until adequate mobilization of the nucleus occurred. Phacoemulsification was then utilized to remove the dense central nucleus followed by removal of the cortical material utilizing the automated aspiration irrigation unit. Viscoelastic was instilled into the posterior capsular bag followed by placement of a posterior chamber intraocular lens without difficulty. The residual Viscoelastic was then removed utilizing the automated IA machine. The wound was checked and found to be watertight. The patient tolerated the procedure well and the lid speculum was removed. Intracameral injection of Vigamox 0.1 mL followed by a subtenon injection of Kenalog-40 0.2 mL were administered. The patient will be seen in the a.m.
[2021-12-16 08:30] VITALS: BP 111/71; PULSE 58; RESP 16; TEMP 36.2; O2SAT 96
== END 2021-12-16 08:35 | disposition home or self-care (01) ==
PROVIDERS: PCP Internal Medicine; Visit Provider Ophthalmology
PROC: (CPT 66985; principal; 2021-12-16 07:50)
DX: H25.11 Age-related nuclear cataract, right eye (principal); H44.23 Degenerative myopia, bilateral; J44.9 Chronic obstructive pulmonary disease, unspecified; J45.40 Moderate persistent asthma, uncomplicated; M19.90 Unspecified osteoarthritis, unspecified site; I10 Essential (primary) hypertension; U09.9 Post COVID-19 condition, unspecified; Z87.891 Personal history of nicotine dependence; Z79.51 Long term (current) use of inhaled steroids; Z79.899 Other long term (current) drug therapy; Z96.653 Presence of artificial knee joint, bilateral
CPT/HCPCS: 66984; J2250; J3010; J3300; V2623

== ENCOUNTER → 2021-12-19 12:51 | Outpatient (BNVA) | payer MEDICAID, SELFPAY | PROVIDERS: PCP Internal Medicine; Visit Provider Internal Medicine Pulmonary Disease | DX: J45.40 Moderate persistent asthma, uncomplicated (principal); R06.00 Dyspnea, unspecified; Z79.899 Other long term (current) drug therapy | CPT/HCPCS: 99212 ==

== ENCOUNTER → 2021-12-24 13:49 | Outpatient (BNVA) | payer MEDICAID, SELFPAY | PROVIDERS: PCP Internal Medicine; Visit Provider Advanced Practice Midwife | DX: Z13.89 Encounter for screening for other disorder (principal) ==

== ENCOUNTER 2021-12-30 06:18 | Day surgery (SDC) | payer MEDICAID, SELFPAY ==
[2021-12-10 09:43] VITALS: BMI 29.7
--- NOTE | 2021-12-27 08:42 | P.CONAN_ITS ---
Documented by User: Sara Zaldivar NP 12/27/21 08:43 HPI - Anesthesia Eval Consult details Narrative: 56yo F for Left Cataract Extraction IOL Insertion PCP cleared Right eye 12/16/21 with MAC: Fent 50, Midaz 2 PMFSH Active Problems Active Problems: All Active Problems (Updated 12/19/21 @ 13:14 by Dutch Snider MD) Dyspnea on exertion (Acute) Status post left knee replacement (Acute) Trigger finger, left index finger (Acute) Trigger finger, left middle finger (Acute) Environmental allergies (Acute) Rotator cuff impingement syndrome of right shoulder (Acute) COVID (Acute) Post-COVID syndrome (Acute) Hesitancy of micturition (Acute) Moderate persistent asthma (Acute) Past Medical History Medical History Anxiety Arthritis COPD (chronic obstructive pulmonary disease) COVID-19 vaccine series completed Depression Hesitancy of micturition History of COVID-19 Moderate persistent asthma Post-COVID syndrome Family History Family history of problems with anesthesia: No Surgical History Surgical History H/O colonoscopy History of back surgery History of carpal tunnel surgery of right wrist History of total left knee replacement (~06/2020) History of total right knee replacement Hx of shoulder surgery History of Problems with Anesthesia: No Social History Social History Are you a primary care manager cna to a significant other at home: No Do you presently have visiting nurse or other home services: No Alcohol intake: never Patient Tobacco Use Status: Former Tobacco user Quit Date: 1996 Tobacco use type: Cigarette Use of substances other than those prescribed or required for medical reasons: No Have you been hit, kicked, punched, or otherwise hurt by someone within the past year? If so, by whom?: No Are you DNR?: No Advance Directives: Yes Advance Directives Information Provided: Yes Advance Directives on File: Yes Advance Directives Date on File: 11/12/17 Recently lost weight without trying: No Eating poorly because of decreased appetite: No Nutrition Risks: No Nutritional Risk Current occupational status: unemployed Current occupation: Right Handed Gender identity: Female Meds Allergies Allergy/AdvReac Type Severity Reaction Status Date / Time No Known Allergies Allergy Verified 12/24/21 14:02 Home Medications Medication Instructions Recorded Confirmed Last Taken Type acetaminophen 500 mg tablet 500 mg PO Q12H PRN 12/03/21 12/10/21 Unknown History diphenhydramine HCl 25 mg capsule 25 mg PO BEDTIME 12/03/21 12/10/21 Unknown History (Banophen) fluticasone propionate 50 1 spray INTRANASAL BID 12/03/21 12/10/21 Unknown History mcg/actuation nasal spray,suspension gabapentin 300 mg capsule 300 mg PO BID 12/03/21 12/10/21 12/30/21 History hydrochlorothiazide 25 mg tablet 25 mg PO DAILY 12/03/21 12/10/21 Unknown H istory meloxicam 15 mg tablet 15 mg PO DAILY 12/03/21 12/10/21 Unknown History montelukast 10 mg tablet 10 mg PO BEDTIME 12/03/21 12/10/21 Unknown History omeprazole 20 mg capsule,delayed 20 mg PO DAILY 12/03/21 12/10/21 Unknown History release zolpidem 10 mg tablet 10 mg PO BEDTIME 12/03/21 12/10/21 Unknown History albuterol sulfate 2.5 mg INHALATION TID PRN 12/10/21 12/10/21 Unknown History hvrvialnfx-rjrzwrc-crlalmec 50 1 cap PO Q8H PRN 12/10/21 12/10/21 Unknown History mg-325 mg-40 mg capsule Exam Exam Date and Time: December 27, 2021 0842 Height,Weight and Vital Signs: Height 5 ft 2.75 in Weight 75.478 kg Narrative Narrative: ECHO 12/2021 Conclusions: - The left ventricular systolic function is normal.? The ? calculated ejection fraction is 65% by biplane method. ? - No obvious valvular pathology seen on this study.? ?? Assessment and Plan Assessment Anesthesia Assessment: Chart Reviewed Final Anesthetic Review Family History of Problems with Anesthesia: No History of Problems with Anesthesia: No Documented by User: Abhi Reynoso MD 12/30/21 07:03 [facility] Past Medical History Medical History Anxiety Arthritis COPD (chronic obstructive pulmonary disease) COVID-19 vaccine series completed Depression Hesitancy of micturition History of COVID-19 Moderate persistent asthma Post-COVID syndrome Surgical History Surgical History H/O colonoscopy History of back surgery History of carpal tunnel surgery of right wrist History of total left knee replacement (~06/2020) History of total right knee replacement Hx of shoulder surgery Social History Social History Are you a primary care manager cna to a significant other at home: No Do you presently have visiting nurse or other home services: No Alcohol intake: never Patient Tobacco Use Status: Former Tobacco user Quit Date: 1996 Tobacco use type: Cigarette Use of substances other than those prescribed or required for medical reasons: No Have you been hit, kicked, punched, or otherwise hurt by someone within the past year? If so, by whom?: No Are you DNR?: No Advance Directives: Yes Advance Directives Information Provided: Yes Advance Directives on File: Yes Advance Directives Date on File: 11/12/17 Recently lost weight without trying: No Eating poorly because of decreased appetite: No Nutrition Risks: No Nutritional Risk Current occupational status: unemployed Current occupation: Right Handed Gender identity: Female Meds Allergies Allergy/AdvReac Type Severity Reaction Status Date / Time No Known Allergies Allergy Verified 12/24/21 14:02 Home Medications Medication Instructions Recorded Confirmed Last Taken Type acetaminophen 500 mg tablet 500 mg PO Q12H PRN 12/03/21 12/10/21 Unknown History diphenhydramine HCl 25 mg capsule 25 mg PO BEDTIME 12/03/21 12/10/21 Unknown History (Banophen) fluticasone propionate 50 1 spray INTRANASAL BID 12/03/21 12/10/21 Unknown History mcg/actuation nasal spray,suspension gabapentin 300 mg capsule 300 mg PO BID 12/03/21 12/10/21 12/30/21 History hydrochlorothiazide 25 mg tablet 25 mg PO DAILY 12/03/21 12/10/21 Unknown History meloxicam 15 mg tablet 15 mg PO DAILY 12/03/21 12/10/21 Unknown History montelukast 10 mg tablet 10 mg PO BEDTIME 12/03/21 12/10/21 Unknown History omeprazole 20 mg capsule,delayed 20 mg PO DAILY 12/03/21 12/10/21 Unknown History release zolpidem 10 mg tablet 10 mg PO BEDTIME 12/03/21 12/10/21 Unknown History albuterol sulfate 2.5 mg INHALATION TID PRN 12/10/21 12/10/21 Unknown History iocktckmqp-vylmtks-gzaaqaib 50 1 cap PO Q8H PRN 12/10/21 12/10/21 Unknown History mg-325 mg-40 mg capsule Exam Airway Mallampati Class: II TM Dist: >3cm Neck ROM: Full Loose/Missing/Broken Teeth: Yes (upper and lower back teeth missing) Heart: rrr+s1s2 Lungs: cta b/l Assessment and Plan Assessment Anesthesia Assessment: Anesthesia Plan Discussed Final Anesthetic Review NPO: Yes ASA Class: II Final Preanesthetic Review: No Changes in Pt Med Stat, Meds/Allgs Chart Reviewed, Consent Obtained/Reviewed and Anes Risks/Benef Reviewed Patient Risk: Intermediate Procedure Risk: Low Assessment/Block/Sedation in SS: Assess/Block/Sedation-SS Anesthetic Plan Anesthetic Plan: MAC: and Agree w/ Assess. and Plan Disposition: Standard PACU
--- NOTE | 2021-12-27 13:12 | MHC.SHP ---
Pre-Procedural Eval Section A Date of Service: 12/27/21 The patient is an INPATIENT: No Changes since office visit: No Cold of Flu in the past 2 weeks, No New Medical Problems, No Changes in Medication and No Patient answered all questions The History & Physical has been completed within 30 days and I have reviewed it.: Yes Section B Chief Complaint: cataract left eye Allergies: Allergies Allergy/AdvReac Type Severity Reaction Status Date / Time No Known Allergies Allergy Verified 12/24/21 14:02 Plan Diagnosis/Plan: Unchanged I have reviewed the history and physical and performed a pertinent physical examination on my patient. No changes have occurred unless specified.
[2021-12-30 06:33] VITALS: BP 123/70; PULSE 58; RESP 16; TEMP 36.8; O2SAT 96
[2021-12-30] MEDS: Tetracaine HCl/PF 0.5% Oph Sol 4 ML DROPS 1 DROP EYE-LEFT (06:36)
[2021-12-30] MEDS: Lactated Ringers 500 ML 50 ML IV (06:39)
[2021-12-30] MEDS: Tropicamide 1 % Ophth Sol 3 ML BTL 1 DROP EYE-LEFT ×3 (06:40→06:46)
[2021-12-30] MEDS: Phenylephrine HCL 2.5% Oph SoL 2 ML BOTTLE 1 DROP EYE-LEFT ×3 (06:42→06:48)
--- NOTE | 2021-12-30 08:04 | HO.PNOPHT ---
Ophthalmology Procedure Procedure Date of Service: 12/30/21 Ophthalmology Viscoelastic: Healon Duet Dual Pack Pro Ophthalmology Lenses: SENSAR AR40 (M -2) Procedure Notes: PREOPERATIVE DIAGNOSIS: Decreased visual acuity left eye secondary to cataract POSTOPERATIVE DIAGNOSIS: Same PROCEDURE: Left cataract extraction with intraocular lens insertion SURGEON: Anuel Chaves M.D. ANESTHESIA: Topical/MAC ESTIMATED BLOOD LOSS: None COMPLICATIONS: None After obtaining informed consent, the patient was brought to the operation room suite and placed in the supine position. After adequate sedation per anesthesia, topical drops of Tetracaine were given to the left eye. The eye was then prepped and draped in the usual sterile fashion. The operating room microscope was then positioned over the operative eye and a lid speculum placed. A paracentesis was created. Viscoelastic was then instilled into the anterior chamber. A three plane incision was then created temporally, utilizing a 2.85 mm keratome. Capsulotomy forceps were then utilized to create a circular tear capsulotomy. Hydrodissection and hydrodelineation were carried out until adequate mobilization of the nucleus occurred. Phacoemulsification was then utilized to remove the dense central nucleus followed by removal of the cortical material utilizing the automated aspiration irrigation unit. Viscoat elastic was instilled into the posterior capsular bag followed by placement of a posterior chamber intraocular lens without difficulty. The residual Viscoat elastic was then removed utilizing the automated IA machine. The wound was check and found to be watertight. The patient tolerated the procedure well and the lid speculum was removed. Intracameral injection of Vigamox 0.1 mL followed by a subtenon injection of Kenalog-40 0.2 mL were administered. The patient will be seen in the a.m.
[2021-12-30 08:39] VITALS: BP 117/63; PULSE 56; RESP 14; TEMP 36; O2SAT 98
== END 2021-12-30 08:41 | disposition home or self-care (01) ==
PROVIDERS: PCP Internal Medicine; Visit Provider Ophthalmology
PROC: (CPT 66985; principal; 2021-12-30 07:50)
DX: H25.12 Age-related nuclear cataract, left eye (principal); H44.23 Degenerative myopia, bilateral; I10 Essential (primary) hypertension; J45.40 Moderate persistent asthma, uncomplicated; Z79.51 Long term (current) use of inhaled steroids; Z79.899 Other long term (current) drug therapy; Z86.16 Personal history of COVID-19; Z87.891 Personal history of nicotine dependence
CPT/HCPCS: 66984; J2250; J3010; J3300; V2623

== ENCOUNTER → 2022-01-23 14:14 | Outpatient (BNVA) | payer MEDICAID, SELFPAY | PROVIDERS: PCP Internal Medicine; Visit Provider Advanced Practice Midwife | DX: Z01.419 Encounter for gynecological examination (general) (routine) without abnormal findings (principal) ==

== ENCOUNTER → 2022-01-30 13:10 | Outpatient (BNVA) | payer MEDICAID, SELFPAY | PROVIDERS: PCP Internal Medicine; Referring Provider Internal Medicine; Visit Provider Internal Medicine | DX: R07.2 Precordial pain (principal); R06.02 Shortness of breath | CPT/HCPCS: 93005; 99202 ==

== ENCOUNTER → 2022-02-05 12:38 | Outpatient (BNVA) | payer MEDICAID, SELFPAY | PROVIDERS: PCP Internal Medicine; Visit Provider Internal Medicine Pulmonary Disease | DX: U09.9 Post COVID-19 condition, unspecified (principal); J45.40 Moderate persistent asthma, uncomplicated | CPT/HCPCS: 99212 ==

== ENCOUNTER → 2022-02-28 09:42 | Outpatient (REF) | payer MEDICAID, SELFPAY ==
--- NOTE | ~2022-02-28 | NM_ITS ---
Myocardial perfusion study Indication: Precordial chest pain to evaluate for myocardial ischemia Technique: The patient was brought in for a Lexiscan perfusion study on 02/28/2022. Patient performed low-level exercise and was injected 0.4 mg of Lexiscan intravenously. Within a minute of injection, 25 mCi of sestamibi was given intravenously. Images were obtained using the SPECT gamma camera interlaced with the gating device. Images were obtained in supine position. Resting perfusion study was performed on 03/07/2022. Patient was administered 25 mCi of sestamibi intravenously at rest. Images were then obtained in supine position. Images obtained with and without CT attenuation. Total DLP 102 mGy-cm. Images were processed with the software and compared side to side in short axis, horizontal long axis and vertical long axis views. Findings: The stress perfusion study showed non attenuated images show minimally reduced uptake in the apex of the LV myocardium. Remainder of the LV myocardium is normally perfused. Attenuation corrected images show normal uptake of radiotracer in all segments of LV myocardium. The gated study shows normal LV systolic function with calculated LVEF of 59%. LV cavity is normal in size. The gated study shows normal systolic wall thickening and contraction of segments. Resting study was stopped optimally processed due to tilted images shows on non attenuated images mildly reduced uptake in the apex of the LV myocardium.. Gating at rest reveals normal systolic wall motion with ejection fraction at 64%. The findings are consistent with likely normal myocardial perfusion. NM/NM cardiolite stress test Impression: 1. Myocardial perfusion imaging study shows likely normal myocardial perfusion 2. Gated LVEF is 59% 3. Transient ischemic dilatation not present EKG is nondiagnostic for ischemia
--- NOTE | 2022-02-28 09:46 | CA_ITS ---
Acquisition Time: 2022-02-28 10:06:02 Total Exercise Time: 00:02:00 Test Indications: COPD Medications: SEE CHART Protocol: LEXISCAN Max HR: 103 BPM 63% of Pred: 162 BPM Max BP: 122/072 mmHG Max Work Load: 1.0 METS Pharmacological stress test with Lexiscan injection, while sitting and kicking her legs, without anginal symptoms, without arrythmia, with normotensive response to injection, with nondiagnostic EKG for ischemia. Nuclear images pending. Test reviewed with Dr Webster Referred By: Job Webster Overread By: SIERRA SAUER
== END ==
LOC: HO.CARD 09:42
PROVIDERS: PCP Internal Medicine; Visit Provider Internal Medicine
DX: R07.2 Precordial pain (principal); R06.02 Shortness of breath
CPT/HCPCS: 78452; 93017; A9500; J0280; J2785

== ENCOUNTER → 2022-03-06 14:04 | Outpatient (BNVA) | payer MEDICAID, SELFPAY | PROVIDERS: PCP Internal Medicine; Referring Provider Internal Medicine; Visit Provider Nurse Practitioner Family | DX: R07.2 Precordial pain (principal); R06.02 Shortness of breath | CPT/HCPCS: 99212 ==

== ENCOUNTER → 2022-03-11 14:11 | Outpatient (BNVA) | payer MEDICAID, SELFPAY | PROVIDERS: PCP Internal Medicine; Referring Provider Internal Medicine; Visit Provider Nurse Practitioner Family | DX: Z13.89 Encounter for screening for other disorder (principal) ==

== ENCOUNTER → 2022-08-06 12:39 | Outpatient (BNVA) | payer MEDICAID, SELFPAY | PROVIDERS: PCP Internal Medicine; Visit Provider Internal Medicine Pulmonary Disease | DX: J45.40 Moderate persistent asthma, uncomplicated (principal); Z91.09 Other allergy status, other than to drugs and biological substances; Z79.899 Other long term (current) drug therapy | CPT/HCPCS: 99212 ==

== ENCOUNTER → 2022-09-02 12:39 | Outpatient (BNVA) | payer MEDICAID, SELFPAY | PROVIDERS: PCP Internal Medicine; Referring Provider Internal Medicine; Visit Provider Internal Medicine | DX: R07.2 Precordial pain (principal); R06.02 Shortness of breath | CPT/HCPCS: 99212 ==

== ENCOUNTER 2022-10-24 14:00 | Outpatient (RCR) | payer MEDICAID, SELFPAY ==
--- NOTE | 2022-10-24 14:42 | MHC.OT.DC ---
[address] [phone] F: [phone] Occupational Therapy Discharge Note Provider: Trista David Diagnosis: Right long and ring finger A1 erika release Date of Surgery: 10/15/22 Date of Evaluation: 10/20/22 Date of Discharge: 10/24/22 Treatments to Date: 2 Cancellations to Date: 0 No Shows to Date: 0 Discharge Status: Achieved Goals Improved Function Independent with HEP Discharge Summary: Pt with painfree right hand digit ext to neutral and flexion to DPC Pt reports full use of right hand without difficulty Pt is indep with her HEP including scar massage Goals met Electronically Signed By: Herlinda Toribio OT CHT CLT Reviewed/agree with student documentation: Therapist: Please Sign and return to therapist, thank you for your referral.
== END 2022-10-24 14:43 | disposition home or self-care (01) ==
LOC: HO.OT 14:00
PROVIDERS: PCP Internal Medicine; Visit Provider Orthopaedic Surgery
DX: M79.641 Pain in right hand (principal)
CPT/HCPCS: 97110; 97140; 97166

== ENCOUNTER → 2022-12-05 12:52 | Outpatient (BNVA) | payer MEDICAID, SELFPAY | PROVIDERS: PCP Internal Medicine; Visit Provider Urology | DX: R39.11 Hesitancy of micturition (principal); R39.198 Other difficulties with micturition; M54.9 Dorsalgia, unspecified; Z79.899 Other long term (current) drug therapy | CPT/HCPCS: 51798; 99212 ==

== ENCOUNTER 2022-12-23 11:11 | Outpatient (REF) | payer MEDICAID, SELFPAY ==
--- NOTE | ~2022-12-23 | MM_ITS ---
EXAMINATION: MM SCREENING DIGITAL BREAST TOMOSYNTHESIS, BILATERAL CLINICAL INFORMATION: Screening. Asymptomatic. The lifetime risk of breast cancer based on the Tyrer-Cuzick Model is 5.1%. COMPARISON: Mammography: November 25, 2021 and studies dating back to September 01, 2016 TECHNIQUE: Digital breast tomosynthesis is performed in both the craniocaudal and mediolateral oblique views along with computer-aided detection (CAD). Synthesized 2D images are generated from the tomosynthesis. FINDINGS: There are scattered areas of fibroglandular density (ACR BI-RADS breast composition Category b). There are no significant masses, abnormal calcifications, or other abnormalities. MM/MM tomosynthesis screening BI IMPRESSION: No significant changes from prior exam. ASSESSMENT: BI-RADS 1: Negative RECOMMENDATION: Routine annual mammography screening. This patient's information was entered into a reminder system with a target due date for their next mammogram.
== END 2022-12-23 11:12 | disposition home or self-care (01) ==
LOC: HO.MAMMO 11:11
PROVIDERS: PCP Internal Medicine; Visit Provider Internal Medicine
DX: Z12.31 Encounter for screening mammogram for malignant neoplasm of breast (principal)
CPT/HCPCS: 77063; 77067

== ENCOUNTER → 2023-01-08 15:23 | Outpatient (BNVA) | payer MEDICAID, SELFPAY | PROVIDERS: PCP Internal Medicine; Visit Provider Urology | DX: R39.11 Hesitancy of micturition (principal); R39.198 Other difficulties with micturition; Z79.52 Long term (current) use of systemic steroids; Z79.899 Other long term (current) drug therapy | CPT/HCPCS: 51798; 99212 ==

== ENCOUNTER 2023-01-28 14:12 | Outpatient (REF) | payer MEDICAID, SELFPAY ==
[2023-01-29 03:42] LABS: CT PCR NOT DETECTED (Not Detect.); NG PCR NOT DETECTED (Not Detect.)
== END 2023-01-28 14:13 | disposition home or self-care (01) ==
LOC: HO.LNP 14:12
PROVIDERS: PCP Internal Medicine; Visit Provider Advanced Practice Midwife
DX: Z01.419 Encounter for gynecological examination (general) (routine) without abnormal findings (principal); N95.1 Menopausal and female climacteric states; Z20.2 Contact with and (suspected) exposure to infections with a predominantly sexual mode of transmission
CPT/HCPCS: 0353U

== ENCOUNTER 2023-05-13 08:37 | Outpatient (REF) | payer MEDICAID, SELFPAY ==
[2023-05-13 12:02] LABS: Anion Gap 19 (12-20); Blood Urea Nitrogen 15 mg/dL (9-16); Calcium 9.3 mg/dL (8.4-10.2); Carbon Dioxide 23 mmol/L (22-29); Chloride 103 mmol/L (96-108); Estimated Glomerular Filt Rate > 60; Glucose Random 151 mg/dL (60-115); Potassium 3.5 mmol/L (3.3-5.1); Sodium 141 mmol/L (135-145)
== END 2023-05-13 08:38 | disposition home or self-care (01) ==
LOC: HO.HHCL 08:37
PROVIDERS: Visit Provider Family Medicine
DX: M79.2 Neuralgia and neuritis, unspecified (principal)
CPT/HCPCS: 36415; 80048

== ENCOUNTER 2023-06-18 15:08 | Outpatient (AMB) | payer MEDICAID, SELFPAY ==
--- NOTE | 2023-06-18 15:13 | MHC.OFFVIS ---
Intake Vital Signs 06/18/23 15:14 Height 5 ft 3 in Weight 165 lb 5.547 oz BMI 29.3 BP 127/70 Blood Pressure Location Rt brachial Position Sitting Pulse 97 Pulse Source Doppler Pulse Oximetry (%) 97 Oxygen Delivery Method Room Air Intake Visit Reasons: Asthma (refills) Allergies bethanechol Allergy (Mild, Verified 06/18/23 15:17) Rash HPI Asthma (refills) HPI Details 58-year-old lady, former 20 pack-year smoker, 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 She has been using Advair 250, Singulair, and albuterol MDI/nebs with good control of her symptoms.? She denies any recent exacerbations. She rarely requires to use her albuterol. [facility] Medical History Anxiety Arthritis COPD (chronic obstructive pulmonary disease) COVID-19 vaccine series completed Depression Hesitancy of micturition History of COVID-19 Moderate persistent asthma Post-COVID syndrome Surgical History H/O colonoscopy History of back surgery History of carpal tunnel surgery of right wrist History of total left knee replacement (~06/2020) History of total right knee replacement Hx of shoulder surgery Family History Mother Heart disease Sister HTN (hypertension) Sister HTN (hypertension) Diabetes Social History Household Members: Spouse Are you a primary medical care evaluation specialist to a significant other at home: No Do you presently have visiting nurse or other home services: No Alcohol intake: never Patient Tobacco Use Status: Former Tobacco user Quit Date: 1996 Tobacco use type: Cigarette Advance Directives Date on File: 11/12/17 Current occupational status: unemployed Current occupation: Right Handed Gender identity: Female Review of Systems Const Denies daytime sleepiness, Denies excessive sweating, Denies fatigue, Denies fever(s), Denies lethargy, Denies malaise, Denies night sweats, Denies snoring and Denies weight loss Eyes Denies blurry vision and Denies itchy eyes ENT Denies nasal congestion, Denies post nasal drip, Denies sinus pain, Denies sinus pressure and Denies other ( Thrush) Card Denies chest pain, Denies pedal edema, Denies dyspnea, Denies orthopnea and Denies paroxysmal nocturnal dyspnea Resp Denies cough, Denies hemoptysis, Denies excessive phlegm production, Denies dyspnea, Denies snoring and Denies wheezing GI Denies abdominal pain and Denies heartburn Musc Denies myalgias, Denies arthralgias and Denies joint swelling Skin/Breast Denies rash Neuro Denies memory loss and Denies seizure-like activity Psych Denies abnormal sleep pattern, Denies anxiety and Denies memory loss Endo Denies excessive sweating, Denies fatigue and Denies heat intolerance Darrian/Lymph Denies easy bruising Aller/Immun Denies itchy eyes, Denies seasonal rhinorrhea and Denies wheezing Physical Exam Vital Signs: Last Vital Signs Pulse 97 06/18/23 15:14 BP 127/70 06/18/23 15:14 Pulse Ox 97 06/18/23 15:14 Oxygen Delivery Method Room Air 06/18/23 15:14 BMI result Body Mass Index 29.3 Const General: no acute distress and alert Nutritional Appearance: not obese Orientation/consciousness: Other orientation findings ( oriented) HEENT Head: Yes atraumatic Eyes General: appearance normal, both eyes and all related structures Sclerae: sclerae normal EOM: EOMs intact bilaterally Neck Neck: Yes supple Lymphatic: no lymphadenopathy noted Resp Effort & Inspection: normal respiratory effort and no use of accessory muscles Auscultation: clear to auscultation bilaterally Cardio Rate: regular rate Rhythm: regular rhythm Heart sounds: no gallops, no murmurs and no rubs Skin General skin exam: other ( warm) Extrem General: No clubbing, No cyanosis and No edema Assessment & Plan Assessment & Plan (1) Moderate persistent asthma: Code(s): J45.40 - Moderate persistent asthma, uncomplicated Plan: Well controlled on current regimen of Advair albuterol MDI/nebs. Continue current regimen. (2) Environmental allergies: Code(s): Z91.09 - Other allergy status, other than to drugs and biological substances Plan: Well controlled on as needed Flonase/Singulair. Continue current regimen. Medications: Changed From fluticasone propion-salmeterol 250-50 mcg/dose (Advair Diskus) 1 inh PO BID 60 ea 0RF J45.40 - Moderate persistent asthma, uncomplicated To fluticasone propion-salmeterol 250-50 mcg/dose (Advair Diskus) 1 inh PO BID 60 ea 12RF 30 days J45.40 - Moderate persistent asthma, uncomplicated Coding Level of Care Code Est Pt Level 4 (59766) Diagnoses Moderate persistent asthma J45.40 Environmental allergies Z91.09
[2023-06-18 15:14] VITALS: BP 127/70; PULSE 97; O2SAT 97; BMI 29.3
== END 2023-06-18 15:45 | disposition home or self-care (01) ==
PROVIDERS: PCP Internal Medicine; Visit Provider Internal Medicine Pulmonary Disease
DX: J45.40 Moderate persistent asthma, uncomplicated (principal); Z91.09 Other allergy status, other than to drugs and biological substances
CPT/HCPCS: 99214

== ENCOUNTER → 2023-06-18 15:08 | Outpatient (BNVA) | payer MEDICAID, SELFPAY | PROVIDERS: PCP Internal Medicine; Visit Provider Internal Medicine Pulmonary Disease | DX: J45.40 Moderate persistent asthma, uncomplicated (principal); Z91.09 Other allergy status, other than to drugs and biological substances | CPT/HCPCS: 99212 ==

== ENCOUNTER 2023-07-09 15:45 | Outpatient (AMB) | payer MEDICAID, SELFPAY ==
--- NOTE | 2023-07-09 15:45 | A.OFFVIS_ITS ---
Intake Intake Visit Reasons: 6m/SANDY Intake Note: Patient presents today for a follow-up on Urinary Retention: Meds- Tamsulosin Allergies to Antibiotic- No Known Allergies Blood Thinner- None PVR- 0 mL Internet Manager Required: Yes Internet Manager Language: Uzbek Information Interpreted: non-clinical & clinical Accompanied by: Self / Same As Patient Allergies bethanechol Allergy (Mild, Verified 06/18/23 15:17) Rash HPI HPI Comments History of Present Illness Details Miguelina is a 58-year-old female who presents today to the office for a follow-up. 07/09/2023? She is followed today for voiding dysfunction and incomplete bladder emptying. She has been on Flomax 0.4 mg daily to bid, She was on bethanechol in the past which has been d/c'd. Patient states that she goes to bathroom frequently during the day time, and infrequently she may leak urine. She does consume 3 cups of coffee and she is on HCTZ diuretic medication. I discussed with the patient that this will contribute her going more frequently to the bathroom. I discussed to avoid dietary bladder irritants to help with her symptoms of urinary urgency. 07/09/2023: Evaluation today?UA? leukocy meri: negative; blood: negative; bladder scan PVR: 0 mL. Review of chart: Comorbidity chronic low back pain.? History of back surgery several years ago. h/o lead placement trial for a back stimulator that was unsuccessful --she had significant pain after the lead was placed so it was removed has been on tramadol and gabapentin for pain. previous discussion regarding causes for her voiding dysfunction may be multifactorial; Nerve related, bladder muscle hypo contractility versus bladder outlet dysfunction. Tx options discussed included pelvic floor physical therapy.? 07/09/2023: Plan: Continue Flomax daily. Follow-up in 1 year. [facility] Medical History COVID-19 vaccine series completed Post-COVID syndrome COPD (chronic obstructive pulmonary disease) History of COVID-19 Arthritis Anxiety Depression Hesitancy of micturition Moderate persistent asthma Surgical History Hx of shoulder surgery History of carpal tunnel surgery of right wrist H/O colonoscopy History of total right knee replacement History of back surgery History of total left knee replacement (~06/2020) Family History Mother Heart disease Sister HTN (hypertension) Sister HTN (hypertension) Diabetes Social History Household Members: Spouse Are you a primary property caretaker to a significant other at home: No Do you presently have visiting nurse or other home services: No Alcohol intake: never Patient Tobacco Use Status: Former Tobacco user Quit Date: 1996 Tobacco use type: Cigarette Advance Directives Date on File: 11/12/17 Current occupational status: unemployed Current occupation: Right Handed Gender identity: Female Review of Systems Const Reports no additional complaints Eyes Reports no additional complaints ENT Reports no additional complaints Card Denies dyspnea Resp Denies cough and Denies dyspnea GI Reports no additional complaints Reports no additional complaints Musc Reports no additional complaints Skin/Breast Denies rash and Denies unusual bruising Neuro Reports no additional complaints Psych Reports no additional complaints Endo Reports no additional complaints Darrian/Lymph Reports no additional complaints Aller/Immun Reports no additional complaints Office Procedures Post Void Residual Post Residual Void Post Void Residual (PVR): 0 47192-[id number] Void Residual by ultrasound Results AMB Urinalysis, Automated UA Leukoctes 0 Anand/uL Last Edit by SONIA Ingram on 07/09/23 15:55 UA Nitrite Negative Last Edit by SONIA Ingram on 07/09/23 15:55 UA Urobilinogen 0.2 mg/dL Last Edit by SONIA Ingram on 07/09/23 15:5 5 UA Protein 0 mg/dL Last Edit by SONIA Ingram on 07/09/23 15:55 UA pH 6.0 Last Edit by SONIA Ingram on 07/09/23 15:55 UA Blood 0 Jose/uL Last Edit by SONIA Ingram on 07/09/23 15:55 UA Specific [place] 1.015 Last Edit by SONIA Ingram on 07/09/23 15: 55 UA Ketone Negative Last Edit by SONIA Ingram on 07/09/23 15:55 UA Bilirubin 0 mg/dL Last Edit by SONIA Ingram on 07/09/23 15:55 UA Glucose 0 mg/dL Last Edit by SONIA Ingram on 07/09/23 15:55 Results Reviewed Results Reviewed: Laboratory Last Values Urine pH (Auto) 6.0 07/09/23 15:54 Specific [place] (Auto) 1.015 07/09/23 15:54 Urine Protein (Auto) 0 mg/dL 07/09/23 15:54 Glucose (UA)(Auto) 0 mg/dL 07/09/23 15:54 Urine Ketones (Auto) Negative 07/09/23 15:54 Urine Blood (Auto) 0 Jose/uL 07/09/23 15:54 Urine Nitrite (Auto) Negative 07/09/23 15:54 Urine Bilirubin (Auto) 0 mg/dL 07/09/23 15:54 Urine Urobilinogen (Auto) 0.2 mg/dL 07/09/23 15:54 Leukocyte Esterase (Auto) 0 Anand/uL 07/09/23 15:54 Assessment & Plan Assessment & Plan (1) Voiding dysfunction: Code(s): N39.8 - Other specified disorders of urinary system (2) Incomplete bladder emptying: Code(s): R33.9 - Retention of urine, unspecified (3) Hesitancy of micturition: Code(s): R39.11 - Hesitancy of micturition Plan Continue Flomax daily. Follow-up in 1 year. Orders: Orders AMB Post Void Residual by ultrasound 07/09/23 N39.8 - Other specified disorders of urinary system AMB Urinalysis Automated 07/09/23 Z13.9 - Encounter for screening, unspecified Medications: Refilled tamsulosin 0.4 mg PO DAILY 90 caps 3RF 30 days Patient Instructions: The patient had an opportunity to ask questions regarding treatment plan. All questions were answered. Imaging, Laboratory studies and physical exam results were discussed and reviewed in detail. No major barriers to understanding were identified. The patient expressed understanding and agreement with the above treatment plan.? ? ? The patient is aware they should contact our office by phone for worsening of their current condition or the appearance of new symptoms. Compliance is encouraged with any medications and followup testing that is ordered.? ? ? It is a privilege to be allowed the opportunity to participate in the urologic care of your patient. If you have any questions or concerns regarding treatment for the above conditions please do not hesitate to contact me. The office telephone contact is [phone].? ? ? This note is constructed in part using voice recognition software. While every effort has been made to ensure accuracy color laboratory technician errors may have been included.? ? ? Yours sincerely,? ? ? Charissa Hurd MD? Coding Level of Care Code Est Pt Level 4 (05426) Diagnoses Voiding dysfunction N39.8 Incomplete bladder emptying R33.9 Hesitancy of micturition R39.11 CPT Codes Post Residual Void - PVR CPT Code: 31428-Uudk Void Residual by ultrasound ([id number])
== END 2023-07-09 16:03 | disposition home or self-care (01) ==
PROVIDERS: PCP Internal Medicine; Visit Provider Urology
DX: N39.8 Other specified disorders of urinary system (principal); R33.9 Retention of urine, unspecified; R39.11 Hesitancy of micturition
CPT/HCPCS: 99214

== ENCOUNTER → 2023-07-09 15:45 | Outpatient (BNVA) | payer MEDICAID, SELFPAY | PROVIDERS: Visit Provider Urology | DX: N39.8 Other specified disorders of urinary system (principal); R33.9 Retention of urine, unspecified; R39.11 Hesitancy of micturition; Z79.899 Other long term (current) drug therapy | CPT/HCPCS: 51798; 81003; 99212 ==

== ENCOUNTER 2023-08-04 14:11 | Outpatient (AMB) | payer MEDICAID, SELFPAY ==
--- NOTE | 2023-08-04 14:22 | A.SPINEOV_ITS ---
Intake Intake Visit Reasons: cervical spine re-evaluation Intake Note: Mrs. Juan Pablo Tyalor is here today for re-evaluation of neck pain. Weight Count Operator Required: No Allergies bethanechol Allergy (Mild, Verified 06/18/23 15:17) Rash Assessment & Plan Assessment & Plan (1) Shoulder pain, left: Code(s): M25.512 - Pain in left shoulder Plan Mrs Almeida is back in the office today for another evaluation. This is a patient who underwent a total disc arthroplasty at [facility] by Dr. Rnadhawa a number of years ago and was doing well until she was seen last year having significant shoulder pain. Her MRI did not reveal any significant nerve compression. The anatomical location the implants were in good position. We did not have any reason to suspect nerve compression as the source of her symptoms, as well as the fact that she had very mechanical signs of shoulder pain with movement. She saw Dr. Lees who is considering doing a total shoulder replacement on her and just wanted to double check to make sure there was nothing going on in terms of cervical radiculopathy which might be causing the symptoms. The patient tells me with good confidence that she can feel it is pain coming across the back part of her shoulder. It does not feel like her previous nerve pain. She has a lot of give-way weakness in the left arm with abduction and internal rotation. She grimaces even trying to grab my hand and squeeze. It gives her pain across the back part of her shoulder region. I reviewed her MRI again done at [facility] in December of 2021 and there is no evidence of nerve compression that I can see nor the radiologist report. I will update the imaging just to be sure that nothing is changed because the last MRI is a year and half old. It sounds to me and on my clinical exam I suspect this is shoulder origin. I will review the MRI with Dr. Epstein once that is completed. Total amount of time spent in this visit was 20 minutes in discussion of symptoms, previous cervical imaging results and subsequent plan of care Tr Epstein MD,PhD [facility] Orders: Orders MR cervical spine wo con Today M25.512 - Pain in left shoulder Coding Level of Care Code Est Pt Level 3 (24689) Diagnoses Shoulder pain, left M25.512
== END 2023-08-04 14:52 | disposition home or self-care (01) ==
PROVIDERS: PCP Internal Medicine; Visit Provider Physician Assistant
DX: M25.512 Pain in left shoulder (principal)
CPT/HCPCS: 99213

== ENCOUNTER → 2023-08-04 14:11 | Outpatient (BNVA) | payer MEDICAID, SELFPAY | PROVIDERS: PCP Internal Medicine; Visit Provider Physician Assistant | DX: M25.512 Pain in left shoulder (principal) | CPT/HCPCS: 99212 ==

== ENCOUNTER 2023-08-11 08:52 | Outpatient (REF) | payer MEDICAID, SELFPAY ==
[2023-08-11 11:45] LABS: Glucose Fasting 110 mg/dL (60-99)
== END 2023-08-11 08:53 | disposition home or self-care (01) ==
LOC: HO.HHCL 08:52
PROVIDERS: Visit Provider Internal Medicine
DX: R73.09 Other abnormal glucose (principal)
CPT/HCPCS: 36415; 82947

== ENCOUNTER 2023-09-30 09:58 | Outpatient (REF) | payer MEDICAID, SELFPAY ==
--- NOTE | ~2023-09-30 | MR_ITS ---
EXAMINATION: MR CERVICAL SPINE WITHOUT CONTRAST CLINICAL INFORMATION: Pain left shoulder. COMPARISON: Cervical spine MRI 08/25/2012. TECHNIQUE: MRI of the cervical spine was obtained using routine sequences without contrast. FINDINGS: There are chronic postoperative changes of an anterior cervical discectomy and fusion at C4-C5 and C5-C6. There is slight anterolisthesis of C7 on T1 that appears to be related to advanced facet degenerative changes at this level. Alignment is otherwise normal. Vertebral body heights are preserved. No acute bone marrow signal changes. There is loss of intervertebral disc height and T2 signal intensity at C7. Disc desiccation at multiple additional levels. There is no cord compression or abnormal intramedullary signal changes. The cervicomedullary junction is normal. Limited visualization of the posterior fossa reveals no abnormal finding. Occipital condyles and lateral C1 masses are intact. 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 C1-C2 articular facets are unremarkable. At C2-C3 the annular contour is normal. No canal or neuroforaminal compromise. At C3-C4. There is a shallow central protrusion superimposed upon a bulging disc. No canal stenosis. Minimal uncovertebral joint spurring. No substantial neuroforaminal encroachment. At C4-C5 there is a bulging disc. No canal stenosis. Uncovertebral joint spurring and conjunction with facet degenerative change causes moderate left and mild right neuroforaminal encroachment. At C5-C6 there is a bulging disc. No canal stenosis. Uncovertebral joint spurring and congestion with facet degenerative change causes moderate right and mild left neuroforaminal encroachment. At C6-C7 there is a bulging disc. No canal stenosis. Uncovertebral joint spurring and conjunction with facet degenerative change causes moderate right and mild left neuroforaminal encroachment. At C7-T1 there is a pseudodisc bulge. Advanced bilateral facet degenerative change. No canal stenosis. Mild bilateral neuroforaminal compression. Visualized soft tissues of the neck are normal. Vascular flow voids are maintained. MR/MR cervical spine wo con IMPRESSION: There are chronic postoperative changes of an anterior cervical discectomy and fusion at C4-C5 and C5-C6. There is multilevel degenerative spondylosis below the fusion. Slight anterolisthesis of C7 on T1 related to advanced facet degenerative changes at this level. No canal compromise or cord compression. No abnormal intramedullary signal changes. There are varying degrees of neuroforaminal encroachment related to uncovertebral joint spurring and facet degenerative change as described above.
== END 2023-09-30 09:59 | disposition home or self-care (01) ==
LOC: HO.MRI 09:58
PROVIDERS: PCP Internal Medicine; Visit Provider Physician Assistant
DX: M25.512 Pain in left shoulder (principal)
CPT/HCPCS: 72141

== ENCOUNTER 2023-10-31 11:14 | Emergency (ER) | payer MEDICAID, SELFPAY ==
--- NOTE | ~2023-10-31 | XR_ITS ---
EXAMINATION: XR LUMBAR SPINE CLINICAL INFORMATION: Reason for Exam fall, midline tenderness COMPARISON: None TECHNIQUE: Frontal lateral and coned-down L5-S1 frontal lateral, total of 3 views 3 views sacrum frontal lateral oblique FINDINGS: Five yji-lhe-eervgvv lumbar vertebrae were identified maintaining normal height and alignments. There are 6 nonrib-bearing lumbar vertebrae, the lower vertebra for the sake of this report considered Well-developed lumbarized S1. There are 2 rods and screws through the vertebral body of L4-L5, hardware intact properly positioned. Placement of intervertebral disc spacer at L5-S1 and S1-S2, hardware properly positioned. Narrowing of intervertebral disc spaces suggest underlying degenerative disc disease. Degenerative osteoarthritic changes of the SI joints bilaterally. Sacrum is intact. Paravertebral soft tissues are unremarkable. There are radiolucencies, most likely superimposed bowel gas.. No radiographic evidence of osteolytic or osteoblastic lesions. XR/XR sacrum coccyx min 2V IMPRESSION: 1. No radiographic evidence of acute fracture. 2. Narrowing of intervertebral disc spaces suggest underlying degenerative disc disease. Bone alignments remain satisfactory. 3. Hardware in place properly positioned. 4. Degenerative osteoarthritis of SI joints. 5. There are 6 nonrib-bearing lumbar vertebrae, the lower vertebra for the sake of this report considered Well-developed lumbarized S1.
--- NOTE | ~2023-10-31 | XR_ITS ---
EXAMINATION: XR HAND, RIGHT CLINICAL INFORMATION: Fall COMPARISON: None available. TECHNIQUE: PA, lateral, and oblique views of the right hand. FINDINGS: The bones and soft tissues are normal. No fracture. Alignment is anatomic. Joint spaces are maintained. No erosions or soft tissue calcifications. XR/XR hand RT min 3V IMPRESSION: No fracture or dislocation.
--- NOTE | ~2023-10-31 | XR_ITS ---
EXAMINATION: XR LUMBAR SPINE CLINICAL INFORMATION: Reason for Exam fall, midline tenderness COMPARISON: None TECHNIQUE: Frontal lateral and coned-down L5-S1 frontal lateral, total of 3 views 3 views sacrum frontal lateral oblique FINDINGS: Five ado-vnt-etddlsd lumbar vertebrae were identified maintaining normal height and alignments. There are 6 nonrib-bearing lumbar vertebrae, the lower vertebra for the sake of this report considered Well-developed lumbarized S1. There are 2 rods and screws through the vertebral body of L4-L5, hardware intact properly positioned. Placement of intervertebral disc spacer at L5-S1 and S1-S2, hardware properly positioned. Narrowing of intervertebral disc spaces suggest underlying degenerative disc disease. Degenerative osteoarthritic changes of the SI joints bilaterally. Sacrum is intact. Paravertebral soft tissues are unremarkable. There are radiolucencies, most likely superimposed bowel gas.. No radiographic evidence of osteolytic or osteoblastic lesions. XR/XR lumbar spine 2-3V IMPRESSION: 1. No radiographic evidence of acute fracture. 2. Narrowing of intervertebral disc spaces suggest underlying degenerative disc disease. Bone alignments remain satisfactory. 3. Hardware in place properly positioned. 4. Degenerative osteoarthritis of SI joints. 5. There are 6 nonrib-bearing lumbar vertebrae, the lower vertebra for the sake of this report considered Well-developed lumbarized S1.
--- NOTE | ~2023-10-31 | XR_ITS ---
EXAMINATION:XR knee RT 3V CLINICAL INFORMATION: Fall COMPARISON: 2020 TECHNIQUE: 4 views frontal lateral obliques FINDINGS: BONES: No fracture or dislocation is present. JOINTS: There is total knee replacement prosthesis device, both femoral and tibial component of which is properly positioned maintaining normal alignment's. No radiologic evidence of device loosening. Patella properly positioned. SOFT TISSUE: Normal XR/XR knee RT 3V IMPRESSION: Status post total knee replacement. The prosthesis is stable.
[2023-10-31 11:26] VITALS: BP 134/70; PULSE 55; RESP 17; TEMP 36; O2SAT 96; BMI 28.8
--- NOTE | 2023-10-31 11:26 | ED.GENADULT ---
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 Related Data Home Medications Medication Instructions Recorded Confirmed acetaminophen 500 mg tablet 500 mg PO Q12H PRN headache 12/03/21 01/08/23 diphenhydramine HCl 25 mg capsule 25 mg PO BEDTIME 12/03/21 01/08/23 (Banophen) fluticasone propionate 50 1 spray intranasal BID 12/03/21 01/08/23 mcg/actuation nasal spray,suspension hydrochlorothiazide 25 mg tablet 25 mg PO DAILY 12/03/21 01/08/23 montelukast 10 mg tablet 10 mg PO BEDTIME 12/03/21 01/08/23 omeprazole 20 mg capsule,delayed 20 mg PO DAILY 12/03/21 01/08/23 release zolpidem 10 mg tablet 10 mg PO BEDTIME 12/03/21 01/08/23 albuterol sulfate 2.5 mg/3 mL 2.5 mg inhalation TID PRN 12/10/21 01/08/23 (0.083 %) solution for nebulization Shortness Of Breath wdseagewag-xkiwifl-dluqsecp 50 1 cap PO Q8H PRN Migraine Headache 12/10/21 01/08/23 mg-325 mg-40 mg capsule escitalopram oxalate 5 mg tablet 5 mg PO QAM 09/02/22 01/08/23 lidocaine 5 % topical patch 1 - 2 patch topical Q12H PRN pain 09/02/22 01/08/23 (Lidoderm) nabumetone 750 mg tablet 750 mg PO DAILY 09/02/22 01/08/23 gabapentin 600 mg tablet 600 mg PO TID 12/05/22 01/08/23 Previous Rx's Medication Instructions Recorded diclofenac sodium 75 mg 75 mg PO BID #60 tabs 08/22/20 tablet,delayed release albuterol sulfate 90 mcg/actuation 2 puff inhalation Q4-6H PRN 04/17/21 aerosol inhaler shortness of breath or wheezing 30 days #1 ea tamsulosin 0.4 mg capsule 0.4 mg PO DAILY 30 days #90 caps 07/09/23 budesonide-formoterol HFA 160 2 puff inhalation BID 30 days 10/20/23 mcg-4.5 mcg/actuation aerosol #10.2 grams inhaler (Symbicort) Allergies Allergy/AdvReac Type Severity Reaction Status Date / Time bethanechol Allergy Mild Rash Verified 06/18/23 15:17 Review of Systems Review of Systems: Pertinent positives and negatives as stated in HPI [facility] Past Medical History Source: nursing notes reviewed Onset Date is defined in the Problem List Problems that require an onset date and time if occurred within 24 hrs of arrival to the ED Aortic Dissection and Rupture; Neurologic impairment; Cardiopulmonary Arrest; Endotracheal Intubation; Insertion or Replacement of Mechanical Circulatory Assist Device Medical History COVID-19 vaccine series completed Post-COVID syndrome COPD (chronic obstructive pulmonary disease) History of COVID-19 Arthritis Anxiety Depression Hesitancy of micturition Moderate persistent asthma Surgical History Hx of shoulder surgery History of carpal tunnel surgery of right wrist H/O colonoscopy History of total right knee replacement History of back surgery History of total left knee replacement (~06/2020) Family History Family History Mother Heart disease Sister HTN (hypertension) Sister HTN (hypertension) Diabetes Social History Social History Household Members: Spouse Are you a primary primary care provider to a significant other at home: No Do you presently have visiting nurse or other home services: No Alcohol intake: never Patient Tobacco Use Status: Former Tobacco user Quit Date: 1996 Tobacco use type: Cigarette Advance Directives: Yes Advance Directives on File: Yes Advance Directives Date on File: 11/12/17 Current occupational status: unemployed Current occupation: Right Handed Gender identity: Female Physical Exam ED Vital Signs: Vital Signs - 24 hr 10/31/23 11:26 10/31/23 13:09 Temperature 96.8 F Pulse Rate 55 53 Respiratory Rate 17 12 Blood Pressure 134/70 127/71 Pulse Oximetry 96 94 Oxygen Delivery Method Room Air Room Air BMI result Body Mass Index 28.8 VITAL SIGNS: Reviewed. GENERAL: Well developed, well nourished, in no acute distress. HEAD: Normocephalic/atraumatic EYES: PERRLA, EOMI EARS: Ext canals without abnormality NOSE: Nares patent bilateral OROPHARYNX: no oral lesions noted, posterior pharynx clear NECK: Supple, no adenopathy, no midline cervical spine tenderness to palpation or step-offs noted. LUNGS: Normal breath sounds. No adventitious sounds or accessory muscle use. SpO2<94> CARDIOVASCULAR: Regular rate and rhythm without noted murmurs ABDOMEN: Soft, non-tender, non-distended with bowel sounds. PELVIS: Stable, nontender BACK: No midline vertebral tenderness to palpation or step-offs noted, obvious chronic scar secondary to prior back surgery MUSCULOSKELETAL: No tenderness, deformities, or effusions noted on gross inspection. EXTREMITIES: No cyanosis, clubbing or edema. RIGHT KNEE: There is a small nickel size ecchymosis that is changing color to the anterior aspect of the knee otherwise no deformity or effusion appreciated. SKIN: Inspection of the skin reveals no rashes NEUROLOGIC: Alert and oriented x 4. Strength and sensation to light touch were grossly intact x 4. Course Course Course Narrative: This is a rapid medical exam: Additional HPI, ROS, PE not included below will be deferred to primary provider. Patient is a 58-year-old Irish speaking female presenting to the ED with complaint of right hand, right knee, and low back pain after slipping down 4 stairs a few days ago. Denies head strike or loss of consciousness. Not anticoagulated. Hx of knee replacement to R knee. Ecchymosis noted to knee in triage. Tenderness over left SI joint and lumbar spine. Plan: x-rays Medical Decision Making Medical Decision Making MDM Narrative: 58-year-old female with history and clinical presentation most consistent with soft tissue aches and pains as well as musculoskeletal, but will proceed with imaging studies and on review of these imaging studies there are no acute findings to suggest fractures or dislocations. Evaluation of the pelvis noted to be stable and patient is otherwise noted to ambulate well. Recommendations for snvv-pqt-vlbgqub analgesics, patient states she has lidocaine patch at home. She is otherwise discharged home in stable condition. Differential Diagnosis Differential Diagnoses: The differential diagnosis associated with the presentation includes Please see the discussion above Admission/Observation Consideration of admission/observation: Escalation of care including admission/observation considered Please see the discussion above Radiology Impression Discussion of test interpretation with radiology: I have reviewed the radiologist's reading. Radiologist Impression: Please see the discussion above External Record Review External record reviewed: Outpatient record, Prior outpatient labs and Prior outpatient radiology Critical Care Time Critical Care Time Critical Care Time: Yes Total Critical Care Time: 30 Attestation: I personally attest to this time spent taking care of the patient. Discharge Plan Discharge Clinical Impression: Musculoskeletal pain, Ecchymosis, Contusion of soft tissue Patient Disposition: Home, Self-Care Instructions: Ecchymosis (ED), Musculoskeletal Pain (ED) Additional Instructions: 1. Reanudar todos los medicamentos caseros seg?n lo recetado. 2. Tylenol 1000 mg, por v?a oral, cada 6 horas seg?n sea necesario para controlar el dolor. Recomiende utilizar los parches de lidoca?na que informa tener. 3. Myrna un seguimiento con hayden m?dico de atenci?n primaria el lunes por la ma?evelyn. Regrese a la mo de emergencias si los s?ntomas empeoran. 1. Resume all home medications as prescribed. 2. Tylenol 1000 mg, orally, every 6 hours as needed for pain control. Recommend using the lidocaine patches that you report having. 3. Please follow-up with primary care doctor on Thursday morning. Return to the ER for any worsening symptoms. Prescriptions: No Action budesonide-formoterol [Symbicort] 160-4.5 mcg/actuation HFA aerosol inhaler 2 puff inhalation BID 30 Days Qty: 10.2 6RF albuterol sulfate 2.5 mg /3 mL (0.083 %) Solution For Nebulization 2.5 mg INHALATION TID PRN (Reason: Shortness Of Breath) granzphztu-wtpetkq-yqspngjf [Butalbital Compound] 50-325-40 mg Capsule 1 cap PO Q8H PRN (Reason: Migraine Headache) albuterol sulfate 90 mcg/actuation HFA aerosol inhaler 2 puff inhalation Q4-6H PRN (Reason: shortness of breath or wheezing) 30 Days Qty: 1 3RF diclofenac sodium 75 mg tablet,delayed release (DR/EC) 75 mg PO BID Qty: 60 2RF gabapentin 600 mg tablet 600 mg PO TID nabumetone 750 mg tablet 750 mg PO DAILY escitalopram oxalate 5 mg tablet 5 mg PO QAM lidocaine [Lidoderm] 5 % adhesive patch,medicated 1 - 2 patch topical Q12H PRN (Reason: pain) montelukast 10 mg tablet 10 mg PO BEDTIME diphenhydramine HCl [Banophen] 25 mg capsule 25 mg PO BEDTIME fluticasone propionate 50 mcg/actuation spray,suspension 1 spray intranasal BID omeprazole 20 mg capsule,delayed release(DR/EC) 20 mg PO DAILY zolpidem 10 mg tablet 10 mg PO BEDTIME hydrochlorothiazide 25 mg tablet 25 mg PO DAILY acetaminophen 500 mg tablet 500 mg PO Q12H PRN (Reason: headache) tamsulosin 0.4 mg capsule 0.4 mg PO DAILY 30 Days Qty: 90 3RF Referrals: Ernie Merritt MD [Primary Care Provider] - Print Language: Irish
[2023-10-31 13:09] VITALS: BP 127/71; PULSE 53; RESP 12; O2SAT 94
[2023-10-31] MEDS: traMADoL HCL 50 MG TABLET 25 MG PO (15:07)
[2023-10-31] MEDS: Acetaminophen 325 MG TABLET 975 MG PO (15:07)
== END 2023-10-31 15:16 | disposition home or self-care (01) ==
PROVIDERS: Emergency Provider Student in an Organized Health Care Education/Training Program; PCP Internal Medicine
DX: S80.01XA Contusion of right knee, initial encounter (principal); W10.8XXA Fall (on) (from) other stairs and steps, initial encounter; M79.18 Myalgia, other site; Y93.9 Activity, unspecified; Y92.9 Unspecified place or not applicable; Y99.9 Unspecified external cause status
CPT/HCPCS: 72100; 72220; 73130; 73562; 99283; 99284

== ENCOUNTER 2023-11-05 14:43 | Outpatient (AMB) | payer MEDICAID, SELFPAY ==
--- NOTE | 2023-11-05 14:54 | A.OFFVIS_ITS ---
Intake Intake Visit Reasons: surgical clearance Allergies bethanechol Allergy (Mild, Verified 06/18/23 15:17) Rash [facility] Medical History COVID-19 vaccine series completed Post-COVID syndrome COPD (chronic obstructive pulmonary disease) History of COVID-19 Arthritis Anxiety Depression Hesitancy of micturition Moderate persistent asthma Surgical History Hx of shoulder surgery History of carpal tunnel surgery of right wrist H/O colonoscopy History of total right knee replacement History of back surgery History of total left knee replacement (~06/2020) Family History Mother Heart disease Sister HTN (hypertension) Sister HTN (hypertension) Diabetes Social History Household Members: Spouse Are you a primary healthcare or medical to a significant other at home: No Do you presently have visiting nurse or other home services: No Alcohol intake: never Patient Tobacco Use Status: Former Tobacco user Quit Date: 1996 Tobacco use type: Cigarette Advance Directives Date on File: 11/12/17 Current occupational status: unemployed Current occupation: Right Handed Gender identity: Female Assessment & Plan Assessment & Plan (1) Shoulder pain: Code(s): M25.519 - Pain in unspecified shoulder Plan Dear Dr Lees We saw Mrs Juan Pablo Taylor back in the office today. She still has the same pain in her subscapular area that she had during her last visit. We reviewed her imaging again, she has the 2 artificial discs at C4-5 and C5-6 but we do not see any residual nerve compression that would explain pain in the subscapular area. It seems to be more mechanical and shoulder of origin. Dr. Epstein recommends that you proceed with shoulder surgery if indicated on your end. Total amount of time spent in this visit was 20 minutes in discussion of symptoms, cervical MRI imaging results and subsequent plan of care Tr Epstein MD,PhD [facility] Coding Level of Care Code Est Pt Level 3 (88421) Diagnoses Shoulder pain M25.519
== END 2023-11-05 15:31 | disposition home or self-care (01) ==
PROVIDERS: PCP Internal Medicine; Visit Provider Physician Assistant
DX: M25.519 Pain in unspecified shoulder (principal)
CPT/HCPCS: 99213

== ENCOUNTER → 2023-11-05 14:43 | Outpatient (BNVA) | payer MEDICAID, SELFPAY | PROVIDERS: PCP Internal Medicine; Visit Provider Physician Assistant | DX: M25.519 Pain in unspecified shoulder (principal) | CPT/HCPCS: 99212 ==

== ENCOUNTER 2023-11-19 13:37 | Outpatient (AMB) | payer MEDICAID, SELFPAY ==
--- NOTE | 2023-11-19 13:56 | MHC.OFFVIS ---
Intake Intake Visit Reasons: Newprob- RT knee pain - Hx of Right TKA 07/09/2020 Intake Note: Miguelina is a 58 year old female who presents today with complaints of right knee pain. Hx of Right TKA 11/12/2015 & Left TKA 07/09/2020. Allergies bethanechol Allergy (Mild, Verified 06/18/23 15:17) Rash HPI Newprob- RT knee pain - Hx of Right TKA 07/09/2020 HPI Details Miguelina is a 58 year old woman who presents with complaints of right knee pain. She has a hx of a right TKA, DOS: 11/12/15, and a left TKA, DOS: 07/09/20. She has been having pain for 1-2 years and her pain occurs when standing from a seated position, ascending and descending stairs. The pain is anterior. She feels limited. She denies fever and chills. There is no swelling. There was no injury. She has unresurfaced patella. [facility] Medical History (Updated 11/23/23 @ 07:37 by David Taylor MD) COVID-19 vaccine series completed Post-COVID syndrome COPD (chronic obstructive pulmonary disease) History of COVID-19 Arthritis Anxiety Depression Hesitancy of micturition Moderate persistent asthma Surgical History (Updated 11/23/23 @ 07:37 by David Taylor MD) Hx of shoulder surgery History of carpal tunnel surgery of right wrist H/O colonoscopy History of total right knee replacement History of back surgery History of total left knee replacement (~06/2020) Family History Mother Heart disease Sister HTN (hypertension) Sister HTN (hypertension) Diabetes Social History Household Members: Spouse Are you a primary resident care provider to a significant other at home: No Do you presently have visiting nurse or other home services: No Alcohol intake: never Patient Tobacco Use Status: Former Tobacco user Quit Date: 1996 Tobacco use type: Cigarette Advance Directives Date on File: 11/12/17 Current occupational status: unemployed Current occupation: Right Handed Gender identity: Female Review of Systems Const All systems reviewed & are unremarkable except as noted in HPI and below Physical Exam Const General: no acute distress, alert and awake Orientation/consciousness: patient oriented x3 HEENT Head: Yes normocephalic and Yes atraumatic Eyes EOM: EOMs intact bilaterally Resp Effort & Inspection: normal respiratory effort and able to speak in complete sentences Cardio Jugular venous distension: no JVD Skin General skin exam: turgor normal Rashes: no rashes Neuro General: patient oriented x3 Extrem Other: Well healed incision Retropatellar TTP and + Patellar grind No joint line tendernes Psych Appearance: grossly normal Affect: normal affect Attitude: cooperative Results Reviewed Results Reviewed: I personally reviewed relevant radiographs. Bilateral total knee arthroplasty in expected post operative position with no hardware complications or evidence of loosening. The patellae are not resurfaced. Assessment & Plan Assessment & Plan (1) Pain in knee region after replacement of knee joint: Code(s): M25.569 - Pain in unspecified knee; Z96.659 - Presence of unspecified artificial knee joint Plan: This is an active and healthy 58 yo with anterior knee pain with PF loading activities. This limits her and she feels NSAID;s and activity modification have not been helpful. She feels that she has tried everything and the pain is getting worse. I discussed treatment options. I recommend patellar resurfacing. I explained the procedure and the risks, benefits and aternatives including pain, infection, stiffness, need for further surgery as well as potential medical complications such as blood clots, pulmonary embolism and cardiac complications. She expressed understanding and we will proceed forward Plan Prepared for David Taylor MD by Gallo Hinton, medical interpreter, on 11/19/23 at 2:00 PM, EST. Coding Level of Care Code Est Pt Level 4 (26097) Diagnoses Pain in knee region after replacement of knee joint M25.569; Z96.659
== END 2023-11-19 14:49 | disposition home or self-care (01) ==
PROVIDERS: PCP Internal Medicine; Visit Provider Orthopaedic Surgery
DX: M25.561 Pain in right knee (principal); Z96.651 Presence of right artificial knee joint
CPT/HCPCS: 99214

== ENCOUNTER → 2023-11-19 13:37 | Outpatient (BNVA) | payer MEDICAID, SELFPAY | PROVIDERS: PCP Internal Medicine; Visit Provider Orthopaedic Surgery | DX: M25.561 Pain in right knee (principal); Z96.653 Presence of artificial knee joint, bilateral | CPT/HCPCS: 99212 ==

== ENCOUNTER 2023-12-10 14:10 | Outpatient (AMB) | payer MEDICAID, SELFPAY ==
--- NOTE | 2023-12-10 14:15 | A.OFFVIS_ITS ---
Intake Vital Signs 12/10/23 14:16 Height 5 ft 3 in Weight 162 lb BMI 28.7 Intake Visit Reasons: [employer] [facility] Referral for VV Allergies No Known Allergies Allergy (Verified 12/10/23 14:20) PFSH Medical History COVID-19 vaccine series completed Post-COVID syndrome COPD (chronic obstructive pulmonary disease) History of COVID-19 Arthritis Anxiety Depression Hesitancy of micturition Moderate persistent asthma Surgical History Hx of shoulder surgery History of carpal tunnel surgery of right wrist H/O colonoscopy History of total right knee replacement History of back surgery History of total left knee replacement (~06/2020) Family History Mother Heart disease Sister HTN (hypertension) Sister HTN (hypertension) Diabetes Social History Household Members: Spouse Are you a primary healthcare recruiter to a significant other at home: No Do you presently have visiting nurse or other home services: No Alcohol intake: never Patient Tobacco Use Status: Former Tobacco user Quit Date: 1996 Tobacco use type: Cigarette Advance Directives Date on File: 11/12/17 Current occupational status: unemployed Current occupation: Right Handed Gender identity: Female Physical Exam Vital Signs: BMI result Body Mass Index 28.7 Coding
[2023-12-10 14:16] VITALS: BMI 28.7
--- NOTE | 2023-12-10 14:16 | A.OFFVIS_ITS ---
Intake Vital Signs 12/10/23 14:16 Height 5 ft 3 in Weight 162 lb BMI 28.7 Intake Visit Reasons: [employer] [facility] Referral for VV Intake Note: New patient presents for VV. Has pain in both legs especially after walking. Accompanied by: Spouse Allergies No Known Allergies Allergy (Verified 12/10/23 14:20) HPI [employer] [facility] Referral for VV HPI Details Very pleasant 58-year-old female patient presents for painful varicose veins. Complaints include pain over varicosities, swelling of lower extremities, cramping, fatigue, and heaviness of the lower extremities. It has been affecting there daily activities including walking. It is noted more so in right leg. Of note she is scheduled for patellar resurfacing by Dr. Taylor Patient denies any previous venous surgery or injections. Patient denies any history of DVT/ PE. Patient denies any history of phlebitis. Trial of compression includes - [id number] They now present for vascular evaluation regarding their varicose veins. [facility] Medical History COVID-19 vaccine series completed Post-COVID syndrome COPD (chronic obstructive pulmonary disease) History of COVID-19 Arthritis Anxiety Depression Hesitancy of micturition Moderate persistent asthma Surgical History Hx of shoulder surgery History of carpal tunnel surgery of right wrist H/O colonoscopy History of total right knee replacement History of back surgery History of total left knee replacement (~06/2020) Family History Mother Heart disease Sister HTN (hypertension) Sister HTN (hypertension) Diabetes Social History Household Members: Spouse Are you a primary managed care provider to a significant other at home: No Do you presently have visiting nurse or other home services: No Alcohol intake: never Patient Tobacco Use Status: Former Tobacco user Quit Date: 1996 Tobacco use type: Cigarette Advance Directives Date on File: 11/12/17 Current occupational status: unemployed Current occupation: Right Handed Gender identity: Female Review of Systems Const Reports as per HPI ENT Reports no additional complaints Card Denies chest pain, Denies chest pain at rest and Denies chest pain with activity Resp Denies chest congestion and Denies cough GI Reports no additional complaints Musc Details: pain over varicosities, aching of lower extremities, swelling, cramping, heaviness and tiredness, itching Denies abnormal gait Skin/Breast Reports pruritus and Denies wounds Neuro Reports no additional complaints and Denies abnormal gait Psych Denies no additional complaints Physical Exam Vital Signs: BMI result Body Mass Index 28.7 Const General: cooperative, healthy appearing and comfortable Orientation/consciousness: oriented to person, oriented to place and oriented to time Neck Carotids: no bruits Chest Chest palpation & inspection: normal inspection of the chest and normal palpatio n of entire chest wall Resp Effort & Inspection: normal respiratory effort and able to speak in complete sentences Cardio Rate: regular rate Heart sounds: S1 normal heart sound present and S2 normal heart sound present Peripheral pulses: Peripheral pulses 2+ throughout GI Inspection: Yes normal to inspection Skin Other: +2 edema, large rope-like varicosities greater than 4 mm CEAP Classification C4 - skin color changes Ep - Etiology Primary As - superficial veins P - reflux General skin exam: dry skin Neuro General: oriented to person, oriented to place and oriented to time Extrem Right lower extremity: full ROM, normal capillary refill and edema Left lower extremity: full ROM, normal capillary refill and edema Psych Mental Status: mental status grossly normal Assessment & Plan Assessment & Plan (1) Varicose veins of right lower extremity with inflammation: Code(s): I83.11 - Varicose veins of right lower extremity with inflammation Plan: In short patient has evidence of venous insufficiency. I have taken the liberty of ordering venous insufficiency testing. We will not intervene until after orthopedic surgery. At the current time I did discuss conservative measures including compression elevation and exercise. Thank you for allowing us to assist in her care. Orders: Orders US venous insuf bilat 1 Week I83.11 - Varicose veins of right lower extremity with inflammation Coding Level of Care Code New Pt Level 4 (82109) Diagnoses Varicose veins of right lower extremity with inflammation I83.11
== END 2023-12-10 14:43 | disposition home or self-care (01) ==
PROVIDERS: PCP Internal Medicine; Visit Provider Surgery Vascular Surgery
DX: I83.11 Varicose veins of right lower extremity with inflammation (principal)
CPT/HCPCS: 99203

== ENCOUNTER → 2023-12-10 14:10 | Outpatient (BNVA) | payer MEDICAID, SELFPAY | PROVIDERS: PCP Internal Medicine; Visit Provider Surgery Vascular Surgery | DX: I83.11 Varicose veins of right lower extremity with inflammation (principal) | CPT/HCPCS: 99202 ==

== ENCOUNTER 2024-01-01 08:23 | Outpatient (REF) | payer MEDICAID, SELFPAY ==
--- NOTE | ~2024-01-01 | MM_ITS ---
EXAMINATION: MM SCREENING DIGITAL BREAST TOMOSYNTHESIS, BILATERAL CLINICAL INFORMATION: Screening. Asymptomatic. COMPARISON: Mammography: Most recently 12/23/2022, and dating back to 08/30/2015. TECHNIQUE: Digital breast tomosynthesis is performed in both the craniocaudal and mediolateral oblique views along with computer-aided detection (CAD). Synthesized 2D images are generated from the tomosynthesis. FINDINGS: There are scattered areas of fibroglandular density (ACR BI-RADS breast composition Category b). There are bilateral vascular and benign type dystrophic calcifications. There are no suspicious masses, suspicious grouped calcifications, or areas of architectural distortion in either breast. The parenchymal pattern is stable from prior exams. No axillary or skin abnormalities. MM/MM tomosynthesis screening BI IMPRESSION: No mammographic evidence of malignancy. ASSESSMENT: BI-RADS BI-RADS 2 - Benign Findings RECOMMENDATION: Routine annual mammography screening. 1 year F/U This examination should not preclude the clinical evaluation of a suspicious palpable abnormality. This patient's information was entered into a reminder system with a target due date for their next mammogram.
== END 2024-01-01 08:24 | disposition home or self-care (01) ==
LOC: HO.MAMMO 08:23
PROVIDERS: PCP Internal Medicine; Visit Provider Internal Medicine
DX: Z12.31 Encounter for screening mammogram for malignant neoplasm of breast (principal)
CPT/HCPCS: 77063; 77067

== ENCOUNTER → 2024-01-01 10:15 | Outpatient (BNV) | payer MEDICAID, SELFPAY | PROVIDERS: PCP Internal Medicine; Visit Provider Radiology Diagnostic Radiology | DX: Z12.31 Encounter for screening mammogram for malignant neoplasm of breast (principal) | CPT/HCPCS: 77063; 77067 ==

== ENCOUNTER 2024-01-05 12:42 | Outpatient (REF) | payer MEDICAID, SELFPAY ==
--- NOTE | ~2024-01-05 | US_ITS ---
EXAMINATION: US LOWER EXTREMITY VENOUS (REFLUX EXAM), BILATERAL CLINICAL INFORMATION: Chronic venous insufficiency with lower extremity varicose veins, pain COMPARISON: None. TECHNIQUE: Color flow triplex imaging and compression Doppler was performed to evaluate both the deep and the superficial systems bilaterally. To evaluate the superficial system, the examination was performed in the upright position. Color-flow Doppler ultrasound and compression ultrasound were utilized. In addition, maneuvers were utilized to demonstrate reflux. FINDINGS: 1. DEEP VENOUS ULTRASOUND OF THE RIGHT LOWER EXTREMITY: Common Femoral Vein: Compressible, normal respiratory variation and augmented flow. Femoral Vein: Compressible, normal color flow and augmentation. Popliteal Vein: Compressible, normal augmentation. Deep Reflux: There is no evidence of reflux in the deep system in either the common femoral vein, superficial femoral or the popliteal vein. There is no evidence of a Michele's cyst. 2. SUPERFICIAL ULTRASOUND WITH DOPPLER OF RIGHT LOWER EXTREMITY: GREAT SAPHENOUS VEIN: Saphenofemoral Junction: 0.6 cm; Reflux: 0 ms Proximal Thigh: 0.6 cm; Reflux: 0 ms Mid Thigh: 0.5 cm; Reflux: 0 ms Distal Thigh: 0.4 cm; Reflux: 0 ms At Knee: 0.5 cm; Reflux: 0 ms Proximal Calf: 0.5 cm; Reflux: 0 ms Mid Calf: 0.3 cm; Reflux: 0 ms Distal Calf: 0.3 cm; Reflux: 0 ms DUPLICATED MEDIAL GREAT SAPHENOUS VEIN: Diameter: None imaged Reflux: NA DUPLICATED LATERAL GREAT SAPHENOUS VEIN: Diameter: 4.2 cm Reflux: None SMALL SAPHENOUS VEIN: Saphenopopliteal Junction: 0.2 cm; Reflux: 0 ms Proximal: 0.2 cm; Reflux: 0 ms Distal: 0.1 cm; Reflux: 0 ms VEIN OF GIACOMINI: Size: NA Reflux: NA PERFORATORS: Location: None significant Size: NA Reflux: NA VARICOSITIES: Location: Proximal and mid thigh, proximal calf Size: 0.3 to 0.4 cm Reflux: None 3. DEEP VENOUS ULTRASOUND OF THE LEFT LOWER EXTREMITY: Common Femoral Vein: Compressible, normal respiratory variation and augmented flow. Femoral Vein: Compressible, normal color flow and augmentation. Popliteal Vein: Compressible, normal augmentation. Deep Reflux: There is no evidence of reflux in the deep system in either the common femoral vein, superficial femoral or the popliteal vein. There is no evidence of a Michele's cyst. 4. SUPERFICIAL ULTRASOUND WITH DOPPLER OF LEFT LOWER EXTREMITY: GREAT SAPHENOUS VEIN: Saphenofemoral Junction: 0.7 cm; Reflux: 0 ms Proximal Thigh: 0.6 cm; Reflux: 0 ms Mid Thigh: 0.4 cm; Reflux: 0 ms Distal Thigh: 0.3 cm; Reflux: 0 ms At Knee: 0.3 cm; Reflux: 0 ms Proximal Calf: 0.3 cm; Reflux: 0 ms Mid Calf: 0.2 cm; Reflux: 0 ms Distal Calf: 0.2 cm; Reflux: 0 ms DUPLICATED MEDIAL GREAT SAPHENOUS VEIN: Diameter: None imaged Reflux: NA DUPLICATED LATERAL GREAT SAPHENOUS VEIN: Diameter: None imaged. Reflux: NA SMALL SAPHENOUS VEIN: Saphenopopliteal Junction: 0.4 cm; Reflux: 0 ms Proximal: 0.4 cm; Reflux: 0 ms Distal: 0.2 cm; Reflux: 0 ms VEIN OF GIACOMINI: Size: NA Reflux: NA PERFORATORS: Location: None significant Size: NA Reflux: NA VARICOSITIES: Location: None significant Size: NA Reflux: NA US/US venous insuf bilat IMPRESSION: Right: No significant venous insufficiency or reflux in the great saphenous vein or small saphenous vein. Multiple varicosities within the thigh and calf without significant reflux as described above Left: No significant venous insufficiency or reflux in the great saphenous vein or small saphenous vein.
== END 2024-01-05 12:43 | disposition home or self-care (01) ==
LOC: HO.US 12:42
PROVIDERS: PCP Internal Medicine; Visit Provider Surgery Vascular Surgery
DX: I83.11 Varicose veins of right lower extremity with inflammation (principal)
CPT/HCPCS: 93970

== ENCOUNTER 2024-01-14 09:03 | Outpatient (REF) | payer MEDICAID, SELFPAY ==
[2024-01-14 11:48] LABS: Glucose Fasting 99 mg/dL (60-99)
== END 2024-01-14 09:04 | disposition home or self-care (01) ==
LOC: HO.HHCL 09:03
PROVIDERS: Visit Provider Internal Medicine
DX: R73.09 Other abnormal glucose (principal)
CPT/HCPCS: 36415; 82947

== ENCOUNTER → 2024-01-20 13:18 | Outpatient (BNV) | payer MEDICAID, SELFPAY | PROVIDERS: Admitting Provider Orthopaedic Surgery; PCP Internal Medicine; Visit Provider Internal Medicine Cardiovascular Disease | DX: R94.31 Abnormal electrocardiogram [ECG] [EKG] (principal) | CPT/HCPCS: 93010 ==

== ENCOUNTER 2024-01-21 14:23 | Outpatient (REF) | payer MEDICAID, SELFPAY ==
[2024-01-21 16:14] LABS: MANUAL DIFF FLAG NO
[2024-01-21 16:18] LABS: Basophils Absolute Auto 0.1 X10*3/uL (0.0-0.2); Basophils Percent Auto 0.8 % (0-2); Eosinophils Absolute Auto 0.1 X10*3/uL (0.0-0.4); Eosinophils Percent Auto 1.4 % (0-4); Hematocrit 38.5 % (37.0-47.0); Hemoglobin 12.1 g/dl (12.0-16.0); Imm Gran Abs Auto 0.01 X10*3/uL (0.00-0.03); Imm Gran Pct Auto 0.1 % (0.0-0.4); Lymphocytes Absolute Auto 2.9 X10*3/uL (1.2-4.9); Mean Corpuscular HGB Conc 31.4 g/dl (31.0-35.0); Mean Corpuscular Hemoglobin 27.6 pg (27.0-33.0); Mean Corpuscular Volume 87.9 fL (80.0-98.0); Mean Platelet Volume 10.3 fL (9.4-12.3); Monocytes Absolute Auto 0.5 X10*3/uL (0.1-1.2); Monocytes Percent Auto 5.7 % (2-11); Neutrophils Absolute Auto 4.8 x10*3/uL (2.0-8.3); Platelet Count 366 X10*3/uL (160-400); Red Blood Count 4.38 X10*6/uL (4.20-5.50); Red Cell Distribution Width 13.5 % (11.0-16.0); White Blood Count 8.4 X10*3/uL (4.8-10.8)
[2024-01-21 16:29] LABS: Anion Gap 11 (12-20); Blood Urea Nitrogen 26 mg/dL (9-16); Calcium 9.1 mg/dL (8.4-10.2); Carbon Dioxide 28 mmol/L (22-29); Chloride 104 mmol/L (96-108); Estimated Glomerular Filt Rate > 60; Glucose Random 99 mg/dL (60-115); Potassium 3.9 mmol/L (3.3-5.1); Sodium 139 mmol/L (135-145)
== END 2024-01-21 14:24 | disposition home or self-care (01) ==
LOC: HO.CHCLDS 14:23
PROVIDERS: Visit Provider Internal Medicine
DX: Z01.818 Encounter for other preprocedural examination (principal); I10 Essential (primary) hypertension
CPT/HCPCS: 36415; 80048; 85025

== ENCOUNTER 2024-01-27 10:15 | Outpatient (AMB) | payer MEDICAID, SELFPAY ==
--- NOTE | 2024-01-27 10:24 | A.OFFVIS_ITS ---
Intake Vital Signs 01/27/24 10:26 Weight 159 lb 13.362 oz BP 120/64 Blood Pressure Location Rt brachial Position Sitting Pulse 70 Pulse Source Pulse Oximeter Pulse Oximetry (%) 95 Oxygen Delivery Method Room Air Intake Visit Reasons: COPD/ [id number] 02/02 Allergies No Known Allergies Allergy (Verified 01/27/24 10:28) Medication List - Last Reconciled 01/27/24 by Donna Villavicencio LPN acetaminophen 500 mg PO Q6-8H PRN albuterol sulfate 2.5 mg inhalation Q6-8H PRN albuterol sulfate 90 mcg/actuation 1 puff inhalation Q4-6H PRN cyclobenzaprine 10 mg PO DAILY diclofenac sodium 50 mg PO DAILY diphenhydramine HCl (Banophen) 25 mg PO BEDTIME PRN escitalopram oxalate 5 mg PO QAM fluticasone furoate 50 mcg/actuation 1 inh inhalation BID fluticasone propion-salmeterol 500-50 mcg/dose (Advair Diskus) 1 inh inhalation BID fluticasone propion-salmeterol 500-50 mcg/dose (Wixela Inhub) 1 inh inhalation BID 30 days gabapentin 600 mg PO TID hydrochlorothiazide 25 mg PO DAILY lidocaine 5% (Lidoderm) 1 - 2 patches topical Q12H PRN montelukast 10 mg PO BEDTIME multivitamin 1 tab PO DAILY nabumetone 750 mg PO DAILY omega 8-krm-pyg-fish oil 1,000 mg (120 mg-180 mg) (Fish Oil) 1 cap PO DAILY omeprazole 20 mg PO DAILY tamsulosin 0.4 mg PO DAILY@1700 tramadol 50 mg PO Q8H PRN zolpidem 10 mg PO BEDTIME PRN HPI COPD/ I-SKD-sueibeie 02/02 HPI Details 58-year-old lady, 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 She has been using Advair 250, Singulair, and albuterol MDI/nebs with good control of her symptoms.? She denies any recent exacerbations. She is planned for right total knee replacement. [facility] Medical History (Updated 01/27/24 @ 10:41 by Dutch Snider MD) Low back pain Pre-diabetes Seasonal allergies GERD (gastroesophageal reflux disease) COVID-19 vaccine series completed Post-COVID syndrome COPD (chronic obstructive pulmonary disease) History of COVID-19 Arthritis Anxiety Depression Hesitancy of micturition Moderate persistent asthma Surgical History Hx of shoulder surgery History of carpal tunnel surgery of right wrist H/O colonoscopy History of total right knee replacement History of back surgery History of total left knee replacement (~06/2020) Family History Mother Heart disease Sister HTN (hypertension) Sister HTN (hypertension) Diabetes Social History (Updated 01/20/24 @ 12:32 by Donna Antunez RN) Household Members: Spouse Housing: House Are you a primary urgent care physician to a significant other at home: No Do you presently have visiting nurse or other home services: No Alcohol intake: never Comment: in bathroom, aware of trip hazard Patient Tobacco Use Status: Former Tobacco user Quit Date: 1996 Tobacco use type: Cigarette Substance Use Type: Marijuana Substance Use Frequency: Weekly Substance Use Frequency Other:: marijuana smoked + edibles at times Advance Directives Date on File: 11/12/17 Current occupational status: unemployed Current occupation: Right Handed Gender identity: Female Review of Systems Const Denies daytime sleepiness, Denies excessive sweating, Denies fatigue, Denies fever(s), Denies lethargy, Denies malaise, Denies night sweats, Denies snoring and Denies weight loss Eyes Denies blurry vision and Denies itchy eyes ENT Denies nasal congestion, Denies post nasal drip, Denies sinus pain, Denies sinus pressure and Denies other ( Thrush) Card Denies chest pain, Denies pedal edema, Denies dyspnea, Denies orthopnea and Denies paroxysmal nocturnal dyspnea Resp Denies cough, Denies hemoptysis, Denies excessive phlegm production, Denies dyspnea, Denies snoring and Denies wheezing GI Denies abdominal pain and Denies heartburn Musc Denies myalgias, Denies arthralgias and Denies joint swelling Skin/Breast Denies rash Neuro Denies memory loss and Denies seizure-like activity Psych Denies abnormal sleep pattern, Denies anxiety and Denies memory loss Endo Denies excessive sweating, Denies fatigue and Denies heat intolerance Darrian/Lymph Denies easy bruising Aller/Immun Denies itchy eyes, Denies seasonal rhinorrhea and Denies wheezing Physical Exam Vital Signs: Last Vital Signs Pulse 70 01/27/24 10:26 BP 120/64 01/27/24 10:26 Pulse Ox 95 01/27/24 10:26 Oxygen Delivery Method Room Air 01/27/24 10:26 Const General: no acute distress and alert Nutritional Appearance: not obese Orientation/consciousness: Other orientation findings ( oriented) HEENT Head: Yes atraumatic Eyes General: appearance normal, both eyes and all related structures Sclerae: sclerae normal EOM: EOMs intact bilaterally Neck Neck: Yes supple Lymphatic: no lymphadenopathy noted Resp Effort & Inspection: normal respiratory effort and no use of accessory muscles Auscultation: clear to auscultation bilaterally Cardio Rate: regular rate Rhythm: regular rhythm Heart sounds: no gallops, no murmurs and no rubs Skin General skin exam: other ( warm) Extrem General: No clubbing, No cyanosis and No edema Assessment & Plan Assessment & Plan (1) Moderate persistent asthma: Code(s): J45.40 - Moderate persistent asthma, uncomplicated Plan: Well controlled on current regimen of Advair and albuterol MDI/nebs. Continue current regimen. (2) Environmental allergies: Code(s): Z91.09 - Other allergy status, other than to drugs and biological substances Plan: Well controlled on Singulair and Flonase. Continue current regimen. (3) Encounter for preoperative pulmonary examination: Code(s): Z01.811 - Encounter for preprocedural respiratory examination Plan: At this time patient is at low risk for pulmonary perioperative complications for the proposed right total replacement under general anesthesia. Coding Level of Care Code Est Pt Level 4 (14074) Diagnoses Moderate persistent asthma J45.40 Environmental allergies Z91.09 Encounter for preoperative pulmonary examination Z01.811
[2024-01-27 10:26] VITALS: BP 120/64; PULSE 70; O2SAT 95
== END 2024-01-27 10:53 | disposition home or self-care (01) ==
PROVIDERS: PCP Internal Medicine; Referring Provider Internal Medicine; Visit Provider Internal Medicine Pulmonary Disease
DX: J45.40 Moderate persistent asthma, uncomplicated (principal); Z91.09 Other allergy status, other than to drugs and biological substances; Z01.811 Encounter for preprocedural respiratory examination
CPT/HCPCS: 99214

== ENCOUNTER → 2024-01-27 10:15 | Outpatient (BNVA) | payer MEDICAID, SELFPAY | PROVIDERS: PCP Internal Medicine; Visit Provider Internal Medicine Pulmonary Disease | DX: Z01.811 Encounter for preprocedural respiratory examination (principal); Z91.09 Other allergy status, other than to drugs and biological substances; J45.40 Moderate persistent asthma, uncomplicated | CPT/HCPCS: 99212 ==

== ENCOUNTER 2024-01-28 10:36 | Outpatient (REF) | payer MEDICAID, SELFPAY ==
--- NOTE | ~2024-01-28 | XR_ITS ---
EXAMINATION: XR KNEE, RIGHT XR KNEE AP STANDING CLINICAL INFORMATION: Pain. COMPARISON: Prior radiographs, most recently dated 10/31/2023 TECHNIQUE: Lateral and axial views of the right knee were obtained. AP bilateral standing view of the knees was obtained. FINDINGS: Prosthetic components of the bilateral total knee arthroplasties are appropriately aligned, without periprosthetic fracture or abnormal lucency. No component migration. No joint effusion. Proximal left santos soft tissue calcifications are redemonstrated, consistent with the radiograph dated 10/23/2020. XR/XR knee RT 3V IMPRESSION: Appropriate alignment of the bilateral total knee arthroplasties, without evidence of complications.
== END 2024-01-28 10:37 | disposition home or self-care (01) ==
LOC: HO.HOSX 10:36
PROVIDERS: Visit Provider Physician Assistant
DX: M25.561 Pain in right knee (principal)
CPT/HCPCS: 73562; 99212

== ENCOUNTER 2024-01-28 11:03 | Outpatient (AMB) | payer MEDICAID, SELFPAY ==
--- NOTE | 2024-01-28 11:18 | MHC.OFFVIS ---
Intake Visit Reasons: Pre Op RT TKA revision 02/03/24 NE Intake Note: Miguelina is a 58 year old female who presents today for a pre op appointment for her RT TKA revision 02/03/24 NE. Allergies No Known Allergies Allergy (Verified 01/27/24 10:28) HPI HPI Pre Op RT TKA revision 02/03/24 NE: Details: 58-year-old right hand dominant female, who is Kosovan speaking, presents in the office today for her preoperative history and physical exam prior to a right total knee arthroplasty revision be performed on 02/03/[address] David Taylor. Patient denies having a walker at home. Patient is no longer taking Diclofenac. She also stopped taking the fish oil about a month ago. Patient has no known allergy history. Patient is currently taking, as follows: -Acetaminophen 500 mg PO Q6-8H PRN -Albuterol sulfate 90 mcg/actuation 1 puff inhalation Q4-6H PRN -Albuterol sulfate 2.5 mg inhalation Q6-8H PRN -Cyclobenzaprine 10 mg PO Daily -Diphenhydramine HCI 25 mg PO Bedtime PRN -Escitalopram oxalate 5 mg PO QAM -Fluticasone propion-salmeterol 500-50 mcg/dose 1 inhalation BID -Fluticasone furoate 50 mcg/actuation 1 inhalation BID -Gabapentin 600 mg PO TID -Hydrochlorothiazide 25 mg PO Daily -Lidocaine 5% 1-2 patches topical Q12H PRN -Montelukast 10 mg PO bedtime -Multivitamin 1 tab PO daily -Nabumetone 750 mg PO daily -[place] 7-rai-jlk-fish oil 1,000 mg 1 cap PO daily -Omeprazole 20 mg PO daily -Tamsulosin 0.4 mg PO daily at 5:00 pm -Tramadol 50 mg PO Q8H PRN -Zolpidem 10 mg PO bedtime PRN Patient has a medical history, as follows: -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 -Incomplete bladder emptying -Precordial chest pain -Enviromental allergies -Moderate persistent asthma -Pre-diabetes -GERD -COPD -Anxiety -Depression -Post-COVID syndrome -Lower back pain Patient has a surgical history, as follows: -Hx of shoulder surgery; 2011-left -Hx of carpal tunnel surgery of right wrist; 2010 -Hx of colonoscopy; 2012 -Hx of total right knee replacement; 2015 -Hx of back surgery; 2020 -Hx of total left knee replacement; 06/2020 Patient has a social history, as follows: -Tobacco: Former quit in 1996, cigarette -Substance use: Marijuana [facility] Medical History (Updated 01/27/24 @ 10:41 by Dutch Snider MD) Low back pain Pre-diabetes Seasonal allergies GERD (gastroesophageal reflux disease) COVID-19 vaccine series completed Post-COVID syndrome COPD (chronic obstructive pulmonary disease) History of COVID-19 Arthritis Anxiety Depression Hesitancy of micturition Moderate persistent asthma Surgical History Hx of shoulder surgery History of carpal tunnel surgery of right wrist H/O colonoscopy History of total right knee replacement History of back surgery History of total left knee replacement (~06/2020) Family History Mother Heart disease Sister HTN (hypertension) Sister HTN (hypertension) Diabetes Social History (Updated 01/20/24 @ 12:32 by Donna Antunez RN) Household Members: Spouse Housing: House Are you a primary interior plant caretaker to a significant other at home: No Do you presently have visiting nurse or other home services: No Alcohol intake: never Comment: in bathroom, aware of trip hazard Patient Tobacco Use Status: Former Tobacco user Quit Date: 1996 Tobacco use type: Cigarette Substance Use Type: Marijuana Advance Directives Date on File: 11/12/17 Current occupational status: unemployed Current occupation: Right Handed Gender identity: Female Review of Systems Const All systems reviewed & are unremarkable except as noted in HPI and below Physical Exam Const General: cooperative, healthy appearing, comfortable, no acute distress, well developed, alert and awake Orientation/consciousness: patient oriented x3 HEENT Head: Yes normal to inspection, Yes normocephalic and Yes atraumatic Eyes General: appearance normal, both eyes and all related structures EOM: EOMs intact bilaterally Neck Neck: Yes normal visual inspection and Yes no lymphadenopathy Resp Effort & Inspection: normal respiratory effort and able to speak in complete sentences Cardio Jugular venous distension: no JVD Rate: regular rate Peripheral pulses: Peripheral pulses 2+ throughout GI Inspection: Yes normal to inspection Palpation (GI): Soft to palpation Skin General skin exam: no rashes or lesions noted Rashes: no rashes Neuro General: patient oriented x3 Extrem Other: Well healed incision Retropatellar TTP and + Patellar grind No joint line tendernes Psych Appearance: grossly normal Mental Status: mental status grossly normal Affect: normal affect Attitude: cooperative Assessment & Plan Assessment & Plan (1) Pain in knee region after replacement of knee joint: Code(s): M25.569 - Pain in unspecified knee; Z96.659 - Presence of unspecified artificial knee joint Category: Medical Plan Ms. Julien is a 58-year-old right hand dominant female, who is Kosovan speaking, presents in the office today for her preoperative history and physical exam prior to a right total knee arthroplasty revision be performed on 02/03/[address] David Taylor. Patient denies having a walker at home. Patient is no longer taking Diclofenac. She also stopped taking the fish oil about a month ago. Patient has no known allergy history. Patient is currently taking, as follows: -Acetaminophen 500 mg PO Q6-8H PRN -Albuterol sulfate 90 mcg/actuation 1 puff inhalation Q4-6H PRN -Albuterol sulfate 2.5 mg inhalation Q6-8H PRN -Cyclobenzaprine 10 mg PO Daily -Diphenhydramine HCI 25 mg PO Bedtime PRN -Escitalopram oxalate 5 mg PO QAM -Fluticasone propion-salmeterol 500-50 mcg/dose 1 inhalation BID -Fluticasone furoate 50 mcg/actuation 1 inhalation BID -Gabapentin 600 mg PO TID -Hydrochlorothiazide 25 mg PO Daily -Lidocaine 5% 1-2 patches topical Q12H PRN -Montelukast 10 mg PO bedtime -Multivitamin 1 tab PO daily -Nabumetone 750 mg PO daily -[place] 5-xqo-ora-fish oil 1,000 mg 1 cap PO daily -Omeprazole 20 mg PO daily -Tamsulosin 0.4 mg PO daily at 5:00 pm -Tramadol 50 mg PO Q8H PRN -Zolpidem 10 mg PO bedtime PRN Patient has a medical history, as follows: -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 -Incomplete bladder emptying -Precordial chest pain -Enviromental allergies -Moderate persistent asthma -Pre-diabetes -GERD -COPD -Anxiety -Depression -Post-COVID syndrome -Lower back pain Patient has a surgical history, as follows: -Hx of shoulder surgery; 2011-left -Hx of carpal tunnel surgery of right wrist; 2010 -Hx of colonoscopy; 2012 -Hx of total right knee replacement; 2015 -Hx of back surgery; 2020 -Hx of total left knee replacement; 06/2020 Patient has a social history, as follows: -Tobacco: Former quit in 1996, cigarette -Substance use: Marijuana I discussed in detail the procedure and what to expect pre and post operatively. We discussed the risks, benefits and alternatives to the surgery and the rehabilitation course. The risks include infection, bleeding, nerve injury, ongoing pain, swelling, and stiffness, perioperative risk of injury to bones and soft tissues, and blood clots. I have answered all questions and with their understanding they have consented to move forward with a right total knee arthroplasty revision be performed on 02/03/[address] David Taylor. Prescription for a walker was sent to the pharmacy. X-rays of the right knee obtained in the office today for preoperative planning. Follow-up will be at the post operative appointment on 02/18/2024 at 1:30 pm, or sooner if needed. Call Brandyn, , after surgery at [phone]. Orders: Orders XR knee RT 3V Today M25.569 - Pain in unspecified knee Medications: New walker Folding front wheeled walker 1 ea 0RF Lt knee arthritis M25.569 - Pain in unspecified knee, Z96.659 - Presence of unspecified artificial knee joint Patient Instructions: Brandyn [phone] Scribed by Negra Mcmanus medical claims representative, for Michelle Peguero PA-C on 01/28/2024 at 11:37 am, EST.
== END 2024-01-28 11:33 | disposition home or self-care (01) ==
PROVIDERS: PCP Internal Medicine; Visit Provider Physician Assistant
DX: M25.561 Pain in right knee (principal); Z96.659 Presence of unspecified artificial knee joint
CPT/HCPCS: 99024

== ENCOUNTER 2024-02-03 07:35 | Inpatient (IN) | payer MEDICAID, SELFPAY ==
--- NOTE | 2024-01-20 | ECG_ITS ---
Test Reason : pre op Blood Pressure : / mmHG Vent. Rate : 052 BPM Atrial Rate : 052 BPM P-R Int : 166 ms QRS Dur : 102 ms QT Int : 408 ms P-R-T Axes : 024 012 030 degrees QTc Int : 379 ms Sinus bradycardia Minimal voltage criteria for LVH, may be normal variant ( [place] product ) Nonspecific T wave abnormality Abnormal ECG When compared with ECG of 11-MAY-2021 13:42, No significant change was found Referred By: Sara Zaldivar Electronically Signed By:Esteban Shields
[2024-01-20 12:02] VITALS: BP 135/67; PULSE 57; RESP 16; O2SAT 98; BMI 28.3
--- NOTE | 2024-01-20 12:25 | HO.ANESPROP2 ---
Documented by User: Sara Zaldivar NP 02/02/24 09:19 HPI - Anesthesia Eval Consult details Narrative: 58yo F for Right Knee Total Revision s/p R TKA 2016 Medically cleared Pulmo cleared No recent illness No CP/SOB within limits of knee pain COPD/Asthma. Rare albuterol use. GERD. ppi daily covers PMFSH Active Problems Active Problems: All Active Problems Varicose veins of right lower extremity with inflammation (Acute) Pain in knee region after replacement of knee joint (Acute) Shoulder pain (Acute) Incomplete bladder emptying (Acute) Voiding dysfunction (Acute) Shoulder pain, left (Acute) Back pain (Acute) Slowing of urinary stream (Acute) SOB (shortness of breath) (Acute) Precordial chest pain (Acute) Encounter for annual routine gynecological examination (Acute) Dyspnea on exertion (Acute) Post-COVID syndrome (Acute) COVID (Acute) Rotator cuff impingement syndrome of right shoulder (Acute) Environmental allergies (Acute) Trigger finger, left middle finger (Acute) Trigger finger, left index finger (Acute) Status post left knee replacement (Acute) History of total right knee replacement (Acute) Hesitancy of micturition (Acute) Moderate persistent asthma (Acute) Past Medical History Medical History (Updated 01/27/24 @ 10:41 by Dutch Snider MD) Low back pain Pre-diabetes Seasonal allergies GERD (gastroesophageal reflux disease) COVID-19 vaccine series completed Post-COVID syndrome COPD (chronic obstructive pulmonary disease) History of COVID-19 Arthritis Anxiety Depression Hesitancy of micturition Moderate persistent asthma Family History Family History Mother Heart disease Sister HTN (hypertension) Sister HTN (hypertension) Diabetes Family history of problems with anesthesia: No Surgical History Surgical History Hx of shoulder surgery History of carpal tunnel surgery of right wrist H/O colonoscopy History of total right knee replacement History of back surgery History of total left knee replacement (~06/2020) History of Problems with Anesthesia: No Social History Social History (Updated 01/20/24 @ 12:32 by Donna Antunez RN) Household Members: Spouse Housing: House Are you a primary foster care therapist to a significant other at home: No Do you presently have visiting nurse or other home services: No Alcohol intake: never Comment: in bathroom, aware of trip hazard Patient Tobacco Use Status: Former Tobacco user Quit Date: 1996 Tobacco use type: Cigarette Use of substances other than those prescribed or required for medical reasons: Yes Substance Use Type: Marijuana Substance Use Type Other:: marijuana smoke + edibles Substance Use Frequency: Weekly Are you DNR?: No Advance Directives: Yes Advance Directives Information Provided: No Advance Directives on File: Yes Advance Directives Date on File: 11/12/17 Recently lost weight without trying: No Nutrition Risks: No Nutritional Risk Poor oral hygiene: No Current occupational status: unemployed Current occupation: Right Handed Gender identity: Female Meds Allergies Allergy/AdvReac Type Severity Reaction Status Date / Time No Known Allergies Allergy Verified 01/27/24 10:28 Home Medications ?Medication ?Instructions ?Recorded ?Confirmed ?Last Taken ?Type acetaminophen 500 mg tablet 500 mg PO Q6-8H PRN headache 12/03/21 02/03/24 Unknown History diphenhydramine HCl 25 mg capsule 25 mg PO BEDTIME PRN Insomnia 12/03/21 01/27/24 Unknown History (Banophen) hydrochlorothiazide 25 mg tablet 25 mg PO DAILY 12/03/21 01/27/24 Unknown History montelukast 10 mg tablet 10 mg PO BEDTIME 12/03/21 01/27/24 Unknown History omeprazole 20 mg capsule,delayed 20 mg PO DAILY 12/03/21 01/27/24 02/03/24 History release zolpidem 10 mg tablet 10 mg PO BEDTIME PRN Insomnia 12/03/21 01/27/24 02/02/24 History albuterol sulfate 2.5 mg/3 mL 2.5 mg inhalation Q6-8H PRN 12/10/21 01/27/24 Unknown History (0.083 %) solution for nebulization Shortness Of Breath escitalopram oxalate 5 mg tablet 5 mg PO QAM 09/02/22 01/27/24 Unknown History lidocaine 5 % topical patch 1 - 2 patch topical Q12H PRN pain 09/02/22 01/27/24 Unknown History (Lidoderm) nabumetone 750 mg tablet 750 mg PO DAILY 09/02/22 01/27/24 Unknown History gabapentin 600 mg tablet 600 mg PO TID 12/05/22 01/27/24 Unknown History albuterol sulfate 90 mcg/actuation 1 puff inhalation Q4-6H PRN 11/02/23 01/27/24 Unknown History aerosol inhaler shortness of breath or wheezing cyclobenzaprine 10 mg tablet 10 mg PO DAILY 11/02/23 01/27/24 Unknown History fluticasone furoate 50 1 inh inhalation BID 11/02/23 01/20/24 Unknown History mcg/actuation blister powder for inhalation tramadol 50 mg tablet 50 mg PO Q8H PRN pain 11/02/23 01/27/24 Unknown History diclofenac sodium 50 mg 50 mg PO DAILY 01/20/24 01/27/24 01/27/24 History tablet,delayed release fluticasone 500 mcg-salmeterol 50 1 inh inhalation BID 01/20/24 01/27/24 Unknown History mcg/dose blistr powdr for inhalation (Advair Diskus) multivitamin 1 tab PO DAILY 01/20/24 01/27/24 Unknown History omega 9-xlz-ckx-fish oil 1,000 mg 1 cap PO DAILY 01/20/24 01/27/24 01/27/24 History (120 mg-180 mg) capsule (Fish Oil) tamsulosin 0.4 mg capsule 0.4 mg PO DAILY@1700 01/20/24 01/27/24 Unknown History Exam Height,Weight and Vital Signs: Height 5 ft 3 in Weight 72.575 kg Last Vital Signs Pulse 57 01/20/24 12:02 Resp 16 01/20/24 12:02 BP 135/67 01/20/24 12:02 Pulse Ox 98 01/20/24 12:02 O2 Del Method Room Air 01/20/24 12:02 Pertinent Lab Results Pertinent Lab Results: Lab Results 01/20/24 01/20/24 01/20/24 Range/Units 12:30 13:05 13:17 WBC 7.5 (4.8-10.8) X10*3/uL RBC 4.41 (4.20-5.50) X10*6/uL Hgb 12.3 (12.0-16.0) g/dl Hct 38.9 (37.0-47.0) % MCV 88.2 (80.0-98.0) fL MCH 27.9 (27.0-33.0) pg MCHC 31.6 (31.0-35.0) g/dl RDW 13.3 (11.0-16.0) % Plt Count 344 (160-400) X10*3/uL MPV 10.3 (9.4-12.3) fL Absolute Nucleated RBC 0.000 (0.0-0.012) X10*3/uL Nucleated RBC % (auto) 0.0 (0.0-0.2) /100WBC Sodium 143 (135-145) mmol/L Potassium 4.1 (3.3-5.1) mmol/L Chloride 105 (96-108) mmol/L Carbon Dioxide 29 (22-29) mmol/L Anion Gap 13 (12-20) BUN 25 H (9-16) mg/dL Creatinine 0.85 (0.5-1.4) mg/dL Estim Creat Clear Calc 67.2 Estimated GFR > 60 Random Glucose 99 (60-115) mg/dL Calcium 8.8 (8.4-10.2) mg/dL Nasal Screen MRSA (PCR) NEGATIVE (Negative) Nasal S. aureus Screen NEGATIVE (Negative) Nasal MRSA/S.aureus Interp SEE NOTE Blood Type O Positive Antibody Screen NEGATIVE Narrative Narrative: EKG 01/2024 Vent. Rate : 052 BPM Atrial Rate : 052 BPM P-R Int : 166 ms QRS Dur : 102 ms QT Int : 408 ms P-R-T Axes : 024 012 030 degrees QTc Int : 379 ms Sinus bradycardia Minimal voltage criteria for LVH, may be normal variant ( [place] product ) Nonspecific T wave abnormality Abnormal ECG When compared with ECG of 11-MAY-2021 13:42, No significant change was found NM cardiolite stress test 2021 Impression: 1. Myocardial perfusion imaging study shows likely normal myocardial perfusion 2. Gated LVEF is 59% 3. Transient ischemic dilatation not present EKG is nondiagnostic for ischemia Airway Loose/Missing/Broken Teeth: Yes (Molars pulled) Heart: RRR Lungs: CTAB Assessment and Plan Assessment Anesthesia Assessment: Anesthesia Plan Discussed and PAT Visit Final Anesthetic Review Family History of Problems with Anesthesia: No History of Problems with Anesthesia: No Documented by User: Tobi Caldwell MD 02/03/24 08:43 [facility] Past Medical History Medical History (Updated 01/27/24 @ 10:41 by Dutch Snider MD) Low back pain Pre-diabetes Seasonal allergies GERD (gastroesophageal reflux disease) COVID-19 vaccine series completed Post-COVID syndrome COPD (chronic obstructive pulmonary disease) History of COVID-19 Arthritis Anxiety Depression Hesitancy of micturition Moderate persistent asthma Family History Family History Mother Heart disease Sister HTN (hypertension) Sister HTN (hypertension) Diabetes Surgical History Surgical History Hx of shoulder surgery History of carpal tunnel surgery of right wrist H/O colonoscopy History of total right knee replacement History of back surgery History of total left knee replacement (~06/2020) Social History Social History (Updated 01/20/24 @ 12:32 by Donna Antunez RN) Household Members: Spouse Housing: House Are you a primary foster care therapist to a significant other at home: No Do you presently have visiting nurse or other home services: No Alcohol intake: never Comment: in bathroom, aware of trip hazard Patient Tobacco Use Status: Former Tobacco user Quit Date: 1996 Tobacco use type: Cigarette Use of substances other than those prescribed or required for medical reasons: Yes Substance Use Type: Marijuana Substance Use Type Other:: marijuana smoke + edibles Substance Use Frequency: Weekly Are you DNR?: No Advance Directives: Yes Advance Directives Information Provided: No Advance Directives on File: Yes Advance Directives Date on File: 11/12/17 Recently lost weight without trying: No Nutrition Risks: No Nutritional Risk Poor oral hygiene: No Current occupational status: unemployed Current occupation: Right Handed Gender identity: Female Meds Allergies Allergy/AdvReac Type Severity Reaction Status Date / Time No Known Allergies Allergy Verified 01/27/24 10:28 Home Medications ?Medication ?Instructions ?Recorded ?Confirmed ?Last Taken ?Type acetaminophen 500 mg tablet 500 mg PO Q6-8H PRN headache 12/03/21 02/03/24 Unknown History diphenhydramine HCl 25 mg capsule 25 mg PO BEDTIME PRN Insomnia 12/03/21 01/27/24 Unknown History (Banophen) hydrochlorothiazide 25 mg tablet 25 mg PO DAILY 12/03/21 01/27/24 Unknown History montelukast 10 mg tablet 10 mg PO BEDTIME 12/03/21 01/27/24 Unknown History omeprazole 20 mg capsule,delayed 20 mg PO DAILY 12/03/21 01/27/24 02/03/24 History release zolpidem 10 mg tablet 10 mg PO BEDTIME PRN Insomnia 12/03/21 01/27/24 02/02/24 History albuterol sulfate 2.5 mg/3 mL 2.5 mg inhalation Q6-8H PRN 12/10/21 01/27/24 Unknown History (0.083 %) solution for nebulization Shortness Of Breath escitalopram oxalate 5 mg tablet 5 mg PO QAM 09/02/22 01/27/24 Unknown History lidocaine 5 % topical patch 1 - 2 patch topical Q12H PRN pain 09/02/22 01/27/24 Unknown History (Lidoderm) nabumetone 750 mg tablet 750 mg PO DAILY 09/02/22 01/27/24 Unknown History gabapentin 600 mg tablet 600 mg PO TID 12/05/22 01/27/24 Unknown History albuterol sulfate 90 mcg/actuation 1 puff inhalation Q4-6H PRN 11/02/23 01/27/24 Unknown History aerosol inhaler shortness of breath or wheezing cyclobenzaprine 10 mg tablet 10 mg PO DAILY 11/02/23 01/27/24 Unknown History fluticasone furoate 50 1 inh inhalation BID 11/02/23 01/20/24 Unknown History mcg/actuation blister powder for inhalation tramadol 50 mg tablet 50 mg PO Q8H PRN pain 11/02/23 01/27/24 Unknown History diclofenac sodium 50 mg 50 mg PO DAILY 01/20/24 01/27/24 01/27/24 History tablet,delayed release fluticasone 500 mcg-salmeterol 50 1 inh inhalation BID 01/20/24 01/27/24 Unknown History mcg/dose blistr powdr for inhalation (Advair Diskus) multivitamin 1 tab PO DAILY 01/20/24 01/27/24 Unknown History omega 3-xjf-mpu-fish oil 1,000 mg 1 cap PO DAILY 04/10/24 04/17/24 04/17/24 History (120 mg-180 mg) capsule (Fish Oil) tamsulosin 0.4 mg capsule 0.4 mg PO DAILY@1700 01/20/24 01/27/24 Unknown History Exam Airway Mallampati Class: II TM Dist: <=3cm Neck ROM: Full Assessment and Plan Assessment Anesthesia Assessment: Chart Reviewed Final Anesthetic Review NPO: Yes ASA Class: III Final Preanesthetic Review: No Changes in Pt Med Stat, Meds/Allgs Chart Reviewed, Consent Obtained/Reviewed and Anes Risks/Benef Reviewed Patient Risk: Intermediate Procedure Risk: Intermediate Assessment/Block/Sedation in SS: Assess/Block/Sedation-SS Anesthetic Plan Anesthetic Plan: GA and Regional Block Disposition: Standard PACU
[2024-01-20 14:05] LABS: Hematocrit 38.9 % (37.0-47.0); Hemoglobin 12.3 g/dl (12.0-16.0); Mean Corpuscular HGB Conc 31.6 g/dl (31.0-35.0); Mean Corpuscular Hemoglobin 27.9 pg (27.0-33.0); Mean Corpuscular Volume 88.2 fL (80.0-98.0); Mean Platelet Volume 10.3 fL (9.4-12.3); Platelet Count 344 X10*3/uL (160-400); Red Blood Count 4.41 X10*6/uL (4.20-5.50); Red Cell Distribution Width 13.3 % (11.0-16.0); White Blood Count 7.5 X10*3/uL (4.8-10.8)
[2024-01-20 14:34] LABS: MRSA Nasal PCR NEGATIVE (Negative); SA Nasal PCR NEGATIVE (Negative)
[2024-01-20 14:48] LABS: Anion Gap 13 (12-20); Blood Urea Nitrogen 25 mg/dL (9-16); Calcium 8.8 mg/dL (8.4-10.2); Carbon Dioxide 29 mmol/L (22-29); Chloride 105 mmol/L (96-108); Creatinine Clr Calc Pharmacy 67.2; Estimated Glomerular Filt Rate > 60; Glucose Random 99 mg/dL (60-115); Potassium 4.1 mmol/L (3.3-5.1); Sodium 143 mmol/L (135-145)
[2024-02-03] VITALS (19 sets, daily range): BP systolic 125–152; BP diastolic 60–86; PULSE 51–88; RESP 10–18; TEMP 36.1–36.5; O2SAT 95–100; BMI 28.3
--- NOTE | ~2024-02-03 | XR_ITS ---
EXAMINATION: XR KNEE, RIGHT CLINICAL INFORMATION: Right patella resurfacing COMPARISON: Previous x-ray 01/28/2024 TECHNIQUE: Four views of the right knee. FINDINGS: 3 component right knee replacement in satisfactory position. New patellar component. No fracture or dislocation. Postoperative changes to the soft tissues. XR/XR knee RT 2V IMPRESSION: Satisfactory appearance of 3 component right knee replacement. No fracture or dislocation.
--- OUTSIDE RECORDS SUMMARY | 2024-02-03 07:38 | XMS_ITS | Continuity of Care Document ---
Author Organization 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 [employer] Name Role Phone Shaina CLEMENTE, Ernie Cortez Primary Care Physi dom Encounter [facility] Date(s): 11/13/22 - 11/20/[address] [id number]- Encounter Diagnosis Back pain(Final) - 11/13/22 Discharge Disposition: A-Transfer VNA/Home Health Attending Physician: Leland Tukcer MD Admitting Physician: Jere Andrade DO Referring Physician: Not on Staff, Referring MD Allergies, Adverse Reactions, Alerts No Known Allergies Immunizations Given and Recorded Vaccine Date Status Refusal Reason [id number] 12y+ bivalent booster vax 07/16/22 Recorded SARS-CoV-2 (COVID-19) mRNA-1273 vaccine 08/28/21 R ecorded SARS-CoV-2 (COVID-19) mRNA-1273 vaccine 02/22/21 R ecorded SARS-CoV-2 (COVID-19) mRNA-1273 vaccine 01/24/21 R ecorded Medications Advair Diskus 250 mcg-50 mcg inhalation powder one puff, Inhalation, 2 times a day, Refills 0, Maintenance, 01/03/21 16:38:00 EDT Start Date: 01/03/21 Status: Ordered Albuterol 0.083% inhalation pamela Refills 0, Maintenance, 09/15/17 13:07:24 Start Date: 09/15/17 Status: Ordered Claritin 10 mg oral tablet 10 mg, 1, tablet, By Mouth, Daily, # 14 tablet, Refills 0, Maintenance, 09/15/17 13:06:57 Start Date: 09/15/17 Stop Date: 09/29/17 Status: Ordered Dilaudid 4 mg oral tablet 8 mg, Tablet, By Mouth, 11/20/22 13:00:00 EST Start Date: 11/20/22 Stop Date: 11/20/22 Status: Completed Dilaudid 8 mg oral tablet See Instructions, PRN as needed for pain, 1 tablet po q 4 hrly prn for 3 days then q 6hrly prn for severe pain, # 30 tablet, 0 Refills, Acute 11/26/22 11:45:00 EST, 11/20/22 11:44:00 EST, Tablet, Partial fill upon patient request if the prescription i... Start Date: 11/20/22 Stop Date: 11/26/22 Status: Ordered Dilaudid Inj 1 mg, Injection, IV Push Slowly, Every 6 hours, PRN for Pain , Severe, Routine, 11/18/22 14:23:00 EST Start Date: 11/18/22 Stop Date: 11/20/22 Status: Discontinued Fish Oil one capsule, By Mouth, Daily, 0 Refills, Maintenance, 09/15/17 13:06:41 EST Start Date: 09/15/17 Status: Ordered Gabapentin 600 mg, Capsule, By Mouth, 11/20/22 9:00:00 EST Start Date: 11/20/22 Stop Date: 11/20/22 Status: Completed gabapentin 600 mg oral tablet 1 tablet = 600 mg, By Mouth, 3 times a day, # 90 tablet, 0 Refills, Maintenance, 11/20/22 11:44:00 EST, Tablet, [facility] 3, Partial fill upon patient request if the prescription is for a schedule II opioid drug., 160, cm, 11/18/22 14:10:... Start Date: 11/20/22 Status: Ordered Naproxen = 500 mg, By Mouth, 2 times a day, 0 Refills, Maintenance, 09/15/17 13:06:46 EST Start Date: 09/15/17 Status: Ordered please supply one walker. Diagnosisi: lumbar disc disorder please supply one walker. Diagnosisi: lumbar disc disorder, See Instructions, # 1 each, Refills 0, Tot. Refills 0, Maintenance, see above, 11/20/22 15:05:00 EST, Supply Start Date: 11/20/22 Status: Ordered ProAir HFA 90 mcg/inh inhalation aerosol with adapter 1, puffs, Inhalation, Every 4 hours, PRN, # 8.5 Gm, Refills 0, Maintenance, 09/15/17 13:07:06, Aerosol Start Date: 09/15/17 Status: Ordered Qvar 80 mcg/inh inhalation aerosol Inhalation, 2 times a day, 0 Refills, Maintenance, 09/15/17 13:07:31 Start Date: 09/15/17 Status: Ordered Singulair 10 mg oral tablet 10 mg, 1, tablet, By Mouth, Daily at bedtime, Refills 0, Maintenance, 09/15/17 13:07:42 EST Start Date: 09/15/17 Status: Ordered Valium 5 mg oral tablet 5 mg, 1, tablet, By Mouth, 4 times a day, PRN, # 10 tablet, Refills 0, Tot. Refills 0, Acute 11/25/22 11:44:00 EST, for anxiety, 11/20/22 11:44:00 EST, Print Requisition, Partial fill upon patient request if the prescription is for a schedule II opioi... Start Date: 11/20/22 Stop Date: 11/25/22 Status: Ordered Yuvafem 10 mcg vaginal tablet 1 tablet = 10 mcg, Vaginally, twice a week no specific days, 0 Refills, Maintenance, 01/03/21 16:49:00 EDT, Partial fill upon patient request if the prescription is for a schedule II opioid drug. Start Date: 01/03/21 Status: Ordered Problem List Condition Confirmation Course Effective Dates Status H ealth Status Informant Asthma Confirmed Active Gastritis Confirmed Active GERD (gastroesophageal reflux disease) Confirmed Active Hyperlipidemia Confirmed Active Hypertension Confirmed Active Obese class I Confirmed Active Results Radiology Reports * Exam Date Time Procedure Performing Provider Status 11/16/22 8:09 PM MRI Lumbar Spine W+W/O Contrast Lakshmi Kwan; Tony (Verified) Notes: (MRI Lumbar Spine W+W/O Contrast) Reason For Exam: History of laminectomy with fusion, aborted spinal stimulator implant with bleeding and severe pain, r/o hematoma and other complications;Radiculopathy Right RESULT: MRI Lumbar Spine W+W/O Contrast MRI Lumbar Spine W+W/O Contrast INDICATION: Reason: Radiculopathy Right; History of laminectomy with fusion, aborted spinal stimulator implant with bleeding and severe pain, r o hematoma and other complications; Clinical Question(s): Other:; Order Comment: Please see Reference Text for complete list of contraindications Other: TECHNIQUE: MRI of the lumbar spine was performed with and without intravenous contrast utilizing sagittal T1, sagittal T2, sagittal STIR, axial T1, and axial T2-weighted sequences, and post-contrast sagittal T1 and axial T1-weighted sequences. 16 mL of Clariscan was administered intravenously. COMPARISON: MRI 08/25/2022 FINDINGS: NUMBERING: The study assumes 5 [id number] lumbar type vertebral bodies. No hematoma is noted within or adjacent to the spinal canal. No abnormal fluid collection is demonstrated within the spinal canal. ALIGNMENT, VERTEBRAE, MARROW, AND DISCS: Anterior and posterior fusion is present from L3 through S1 with bone graft cages at each level and bilateral pedicle screws at L4 and L5. A 7 mm L2-3 spondylolisthesis and a 5 mm T12-L1 retrolisthesis are noted. CONUS: The conus is normal in signal and contour, with normal level of termination at L1. There is no abnormal enhancement. PARASPINAL TISSUES: No mass is identified. There is a small loculated fluid collection posterior tothe region of the right lamina of L3, which may have been resected. The fluid collection measures up to 1.3 cm in diameter. There is no marginal enhancement to suggest this represents an abscess. Thefluid collection lies immediately medial to the right L3 pedicle screw. This is unchanged from 08/15/2022. Epidural lipomatosis is present at the T12-L1 level with prominent anterolateral epidural fat and posterior epidural fat scalloping of the subarachnoid space. Mild to moderate stenosis is produced, accentuated by a 5 mm retrolisthesis at this level and a tiny central disc herniation. This appearance is unchanged. Marked disc space narrowing is noted at this level. A similar pattern of epidural lipomatosis is present at T12-L1 with moderate central stenosis produced. There is near effacement of T2 hyperintense CSF within the subarachnoid space. Mild annular bulging and moderate facet arthropathy contributes to the stenosis. Mild disc space narrowing is present. Moderate annular bulging is present at L1-2. There is prominence of anterolateral and posterior epidural fat with mild facet arthropathy. A moderate degree of central stenosis is produced. A 6 mm L2-3 spondylolisthesis is present. Marked disc space narrowing is noted. Marked facet arthropathy and infolding of the left ligamentum flavum is noted. The right lamina and ligamentum flavum appear to have been resected at the level of L3. Mild central stenosis is produced. No compromise of the canal or foramina is noted at the fused L3-4, L4-5 or L5-S1 levels. The appearance at these levels is unchanged. IMPRESSION: 1. No significant change from 08/15/2022. No fluid collection is demonstrated within the spinal canal. No hematoma is appreciated. 2. Mild to moderate central stenosis at T12-L1, largely related to epidural lipomatosis. 3. Moderate central stenosis at L1-2. 4. Mild central stenosis at L2-3. WSN: [id number] Ordering Physician: Karen Light Dictated By: Adonis Sánchez MD Dictated Date/Time: 11/17/22 7:38 am Reviewed By: Adonis Sánchez MD Signed By: Adonis Sánchez MD Signed Date/Time: 11/17/22 7:38 am Transcribed By: DENA Transcribed Date/Time: 11/17/22 7:22 am * Exam Date Time Procedure Performing Provider Status 11/14/22 12:03 PM Knee 1 or 2 Views Right Cristel Miles ica; Auth (Verified) Notes: (Knee 1 or 2 Views Right) Reason For Exam: right knee pain, tender on palpation, h/o right knee joint replacement;Pain RESULT: Knee 1 or 2 Views Right Knee 1 or 2 Views Right, 2 views Reason: Pain; right knee pain, tender on palpation, h o right knee joint replacement; Clinical Question(s): Bursitis COMPARISON: None. FINDINGS: Total knee arthroplasty. Hardware is intact. There a patellar enthesophytes. No evidence of joint effusion. IMPRESSION: Right total knee arthroplasty. No acute osseous findings. No significant joint effusion. WSN: [id number] Ordering Physician: Krista Foreman Dictated By: Catalina Parker MD Dictated Date/Time: 11/14/22 2:16 pm Reviewed By: Catalina Parker MD Signed By: Catalina Parkre MD Signed Date/Time: 11/14/22 2:16 pm Transcribed By: DENA Transcribed Date/Time: 11/14/22 2:15 pm * Exam Date Time Procedure Performing Provider Status 11/13/22 3:[address] Abdomen and Pelvis W/O Contrast Flavio schofield Malick; Auth (Verified) Notes: (CT Abdomen and Pelvis W/O Contrast) Reason For Exam: Trauma RESULT: CT Abdomen and Pelvis W/O Contrast CT Abdomen and Pelvis W/O Contrast Hx of Present Illness: pt states she went today to get a spinal stimulator inserted post op pt reports increased pain and new pain down her right leg, 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 Thisstudy was performed without oral contrast. Weight- based protocol using automatic tube modulation was used to optimize exposure parameters. CTDIvol Body: 10.26 mGy, DLP Body: 513 mGy*cm. COMPARISON: MRI lumbar spine dated 08/15/2022. FINDINGS: Limited evaluation secondary to lack of intravenous contrast. V Belt Inspector View Findings, Lines and Tubes: None. Visualized Chest: Lung bases are clear. No pleural effusion. The heart is normal in size. No pericardial effusion. Diaphragm: Normal. Liver: Normal. Gallbladder: No CT evidence of gallbladder pathology. Bile ducts: No biliary ductal dilation. Spleen: Normal. Accessory splenic tissue is incidentally noted. Pancreas: Atrophic Adrenal glands: Normal. Kidneys and ureters: No hydronephrosis, stones, or noncontrast evidence of suspicious masses. Bladder: Normal. Reproductive organs: Unremarkable. Stomach, small bowel, and large bowel: Normal caliber bowel loops without any evidence of obstruction. Severe sigmoid diverticulosis without evidence of acute diverticulitis. Mild stool retention in the rectum. Focus of calcification in the mid abdomen measuring up to 1.4 cm, series 601, image 48 may be secondary to epiploic appendicitis versus a calcified lymph node. Appendix: Normal. Peritoneum and retroperitoneum: No ascites or pneumoperitoneum. No omental or mesenteric lesions. Lymph nodes: Please see above. Blood vessels: Normal. No aneurysm. Abdominal and pelvic wall: Mild muscular atrophy of the lower paraspinal muscles. Bones: No acute abnormality. Severe multilevel degenerative change of the thoracolumbar spine. Unremarkable spinal fusion hardware L3-L4 and intervertebral disc spacer devices at the L4-L5 and L5-S1 levels. Severe disc space narrowing at the T12-L1 level with bridging osteophytes. A few foci of gas are seen in the thoracic spinal canal, likely related to recent instrumentation versus degenerativechanges. IMPRESSION: 1. Severe sigmoid diverticulosis without any evidence of acute diverticulitis. 2. Focus of calcification in the mid abdomen measuring up to 1.4 cm, may be secondary to epiploic appendicitis versus a calcified lymph node. 3. Postoperative changes at the lower lumbar spine, stable. Findings were cortexted to TINA Turcios at 4:55 PM on 11/13/2022. I have personally reviewed the images and I agree with this report. WSN: [id number] Ordering Physician: Negra Turcios Dictated By: Pedro Barrett MD Dictated Date/Time: 11/13/22 5:10 pm Reviewed By: Tess Malloy MD Signed By: Tess Malloy MD Signed Date/Time: 11/13/22 5:15 pm Transcribed By: DENA Transcribed Date/Time: 11/13/22 4:56 pm Vital Signs Most recent to oldest [Reference Range]: 1 2 3 Height 160 cm (11/18/22 2:10 PM) 160 cm (11/16/22 2:00 PM) 160 cm (11/16/22 5:09 AM) Weight 79.6 kg (11/14/22 6:36 PM) Oxygen Saturation [94-100 %] 100 % (11/20/22 4:00 AM) 99 % (11/19/22 8:00 PM) 96 % (11/19/22 3:00 PM) Pulse Rate [55-90 bpm] 57 bpm (11/20/22 4:00 AM) 57 bpm (11/19/22 8:00 PM) 55 bpm (11/19/22 3:00 PM) Body Mass Index [18.5-24.99 kg/m2] 31.09 kg/m2 *>HHI* (11/14/22 6:36 PM) Blood Pressure [90-138/55-84 mm Hg] 116/66mm Hg (11/20/22 4:00 AM) 137/64mm Hg (11/19/22 8:00 PM) 118/68mm Hg (11/19/22 3:00 PM) Respiratory Rate [16-30 br/min] 18 br/min (11/20/22 12:19 PM) 18 br/min (11/20/22 10:44 AM) 18 br/min (11/20/22 8:26 AM) Temperature [96.8-100.4 DegF] 97.8 DegF (11/20/22 4:00 AM) 97.4 DegF (11/19/22 8:00 PM) 97.3 DegF (11/19/22 3:00 PM) Liters per Minute 2 L/min (11/14/22 5:40 PM) 2 L/min (11/14/22 3:22 PM) 2 L/min (11/14/22 2:39 PM) Mode of Delivery (Oxygen) Room air (11/20/22 4:00 AM) Room air (11/19/22 8:00 PM) Room air (11/19/22 3:00 PM) Blood pressure sites Arm, left (11/20/22 4:00 AM) Arm, left (11/19/22 8:00 PM) Arm, left (11/19/22 3:00 PM) Temperature Route Oral (11/20/22 4:00 AM) Oral (11/19/22 8:00 PM) Oral (11/19/22 3:00 PM) Dry Weight 79.6 kg (11/14/22 6:36 PM) History and physical note * Mihaela White DO: PERFORM, MODIFY, MODIFY Event Display: History and Physical Hospital Authored Date: Patient: ??ISHMAEL HARRISON ? Age:??57 Years?Sex:??Female?:??1965?? Chief Complaint/Reason for Consultation spinal stimulator inserted today her spine today this morning, bleedign x 45 mins post op, increased/ new pain. original pain was lower back now new pain to right thigh. called rep for stimulator equipement tested stimulator removed History of Present Illness This is a 57-year-old female??who is primarily Tanzanian-speaking??with past medical history of hypertension, gastritis, GERD,??hyperlipidemia, and asthma,??who currently presents to the hospital??after she underwent attempted placement??of??a thoracic spinal stimulator??at the surgery Center [facility].?? The patient has a history of previous??L2-L3 decompression surgery??in 2020.?? She statesthat over the past year, she has had increasing pain??in her??low back??for which she was seen??at the surgery center [facility]. ??She previously had??received a couple of spinal injections??andtoday had presented there??for??thoracic spinal??stimulation.?? The patient developed??worsening low back pain with radiation to her right leg??and right thigh??during her procedure.?? Based on this,she was sent to the ED for further assessment.?? She had lab work done here that showed a mildly elevated white count 11.1, with a hemoglobin of 12.4.?? Other labs were fairly unremarkable except fora mildly elevated alk phos of 108.?? The patient did undergo CT scan of the abdomen pelvis today that showed severe sigmoid diverticulosis with focus of calcification in the mid abdomen measuring up to 1.4 cm, possibly from epiploic appendicitis versus a calcified lymph node.?? There is some postope rative changes noted at the lower lumbar spine that were stable, and a few foci of gas seen in the thoracic spinal canal likely due to instrumentation.?? The patient was treated with multiple doses of pain medication and currently reports her pain at 8 out of 10, which she states is similar to the pain she has been experiencing in the past few days.?? She is now admitted for further management.. Review of Systems A complete review of systems was obtained and noted to be negative except as stated above in the HPI. Objective ? Vital Signs?? Temperature: 97.9 DegF (11/13/22 20:12:00) Temperature Route: Oral (11/13/22 20:12:00) Pulse Rate: 62 bpm (11/13/22 23:01:00) Respiratory Rate:??14 br/min??Low (11/14/22 01:31:00) Systolic Blood Pressure: 128 mm Hg (11/13/22 23:01:00) Diastolic Blood Pressure: 64 mm Hg (11/13/22 23::00) Pulse Pressure: 64 mm Hg (11/13/22 23:01:00) Oxygen Saturation: 98 % (11/13/22 23::00) Liters per Minute: 3 L/min (11/13/22 23::00) Mode of Delivery (Oxygen): Nasal cannula (11/13/22 23:01:00) Early Warning Score: 2 (11/14/22 01:36:42) ? Physical Exam General: Alert, in no acute cardiopulmonary distress. Mental Status: Oriented to person, place and time. Normal affect. Head: Normocephalic. Eyes: Pupils are equal, round and reactive to light. Extraocular muscles intact. Ear, Nose and Throat: Oropharynx clear, mucous membranes moist. Ears and nose without masses, lesions or deformities. Trachea midline. Neck: Supple, Full range of motion. Respiratory: Clear to auscultation and percussion. No wheezing, rales or rhonchi. Cardiovascular: Heart sounds normal. Regular rate and rhythm, no murmurs, rubs or gallops. Gastrointestinal: Abdomen soft, non-tender, non-distended. Normal bowel sounds. No pulsatile mass. No hepatosplenomegaly. Neurologic: Cranial nerves II-XII grossly intact. No focal neurological deficits. Moves all extremities spontaneously. Skin: No rashes or lesions. No petechiae or purpura. No edema. Musculoskeletal: No cyanosis or clubbing. No gross deformities. ??Positive mid to low back pain. Assessment/Plan This is a 57-year-old primarily Tanzanian-speaking??female??with past medical history as noted above,who currently presents to the hospital??from??his surgery center??where she was??getting??thoracic spinal stimulator placed.?? She developed severe??pain??during the procedure which was subsequently??aborted, and she was transferred here for further management.?? There was some??concern for bleeding for approximately??30 to 45 minutes??after her procedure. ?? Acute bilateral back pain ??(M54.9) Back pain ??(M54.9) [facility]?? She presents after a thoracic stimulator placement was attempted today.?? Presently, she states that her current pain is similar to what she has been experiencing over the past several weeks.?? She did undergo CT scan of her abdomen and pelvis that did not show any significant abnormality.?? There was reportedly some concern of postprocedural bleeding, so we will trend H&H on her to make sure it remains stable.?? Pain control, we will use IV Dilaudid as needed, as well as a Lidoderm patch.?? We will also resume patient on her home gabapentin. ?? Hypertension. Patient will be resumed on amlodipine??and hydrochlorothiazide as she normally takes. ?? Asthma. We will substitute Breo for the patient's home Advair. ??We will also continue her on Singulair shenormally takes. ?? Urinary retention. Patient is on tamsulosin which will be continued. ?? CODE STATUS. ??Patient is a full code. ?? DVT prophylaxis.?? In the setting of this patient's recent spinal??instrumentation,??we will avoid pharmacological prophylaxis presently, and just use pneumoboots and encourage early mobilization. ?? Patient seen on November 13, 2022. Total time spent with patient and in coordination of care: including reviewing the chart/medical records, speaking with the patient, formulating and discussing the treatment plan, and documenting thefindings and encounter: ??75 + min ? Histories Allergies Allergies ?(Active and Proposed Allergies Only) NKA? (Severity: Unknown severity, Onset: Unknown) ? Past Medical History/Problem List Active Problems??(5) Asthma Gastritis GERD (gastroesophageal reflux disease) Hyperlipidemia Hypertension Left shoulder osteoarthritis ? Past Surgical History Laminotomy and decompression L2-L3??in 2020 Bilateral total??knee replacement ?? Social History Patient and lives with spouse. Substance Abuse Details:??Type: Patient denies Tobacco abuse Former smoker and quit 25 years ago Alcohol abuse Patient denies ?? Family Medical History Mother at 80 with an [place]. ??Father?when patient was very young??after being killed. Medications Home Medications??(Confirmed with the patient) Acetaminophen daily as needed?? Albuterol (ProAir HFA 90 mcg/inh inhalation aerosol with adapter)?1?puff(s)?Inhalation?Every 4 hours?as needed?for wheezing Amlodipine 10 mg??a day Benadryl 25 mg??daily at bedtime Fluticasone-Salmeterol (Advair Diskus 250 mcg-50 mcg inhalation powder)?one puff?Inhalation?2 times a day Flonase nasal spray 50 mcg??1 spray both nares twice daily Gabapentin (gabapentin 300 mg oral capsule)?300?Milligram?1?capsule?By Mouth?2 times a day Hydrochlorothiazide 25 mg??once daily Lidoderm??patch??1 patch??low back daily Montelukast (Singulair 10 mg oral tablet)?10?Milligram?1?tablet?By Mouth?Daily atbedtime Nabumetone 750 mg?By Mouth??daily as needed Omeprazole 20 mg??one capsule?By Mouth?Daily Tamsulosin 0.4 mg??once daily Zolpidem (zolpidem 10 mg oral tablet)?1?tab(s)?10?Milligram?By Mouth?Daily at bedtime?as needed?for sleep ? Results Recent Labs BLOOD BANK Blood Type O Positive ()?? 11/13/2022 14:22 Antibody Screen Negative ()?? 11/13/2022 14:22 ?? BLOOD COUNT & DIFF WBC 11.1 k/mm3 (High)?? 11/13/2022 12:56 RBC 4.40 m/mm3 ()?? 11/13/2022 12:56 Hgb 11.4 Gm/dL (Low)?? 11/13/2022 19:20 Hct 35.0 % (Low)?? 11/13/2022 19:20 MCV 83.6 femtoliters ()?? 11/13/2022 12:56 MCH 28.2 pg ()?? 11/13/2022 12:56 MCHC 33.7 g/dL ()?? 11/13/2022 12:56 Platelet Count 395 k/mm3 ()?? 11/13/2022 12:56 RDW-SD 41.3 femtoliters ()?? 11/13/2022 12:56 MPV 10.1 femtoliters ()?? 11/13/2022 12:56 Nucleated RBC (Automated) 0.0 #/100 WBC'S ()?? 11/13/2022 12:56 Abs. NRBC 0.0 k/mm3 ()?? 11/13/2022 12:56 Abs. Neut 8.1 k/mm3 (High)?? 11/13/2022 12:56 Abs. Lymph 2.2 k/mm3 ()?? 11/13/2022 12:56 Abs. [place] 0.6 k/mm3 ()?? 11/13/2022 12:56 Abs. Eo 0.1 k/mm3 ()?? 11/13/2022 12:56 Abs. Baso 0.1 k/mm3 ()?? 11/13/2022 12:56 Neut % 73.2 % ()?? 11/13/2022 12:56 Lymph % 19.8 % ()?? 11/13/2022 12:56 [place] % 5.8 % ()?? 11/13/2022 12:56 Eos % 0.5 % ()?? 11/13/2022 12:56 Baso % 0.5 % ()?? 11/13/2022 12:56 Imm Gran 0.2 % ()?? 11/13/2022 12:56 Abs. Imm Gran 0.0 k/mm3 ()?? 11/13/2022 12:56 ?? CHEM GENERAL Sodium 139 mmol/L ()?? 11/13/2022 12:56 Potassium 3.9 mmol/L ()?? 11/13/2022 12:56 Chloride 99 mmol/L ()?? 11/13/2022 12:56 Bicarbonate Level 23 mmol/L ()?? 11/13/2022 12:56 Anion Gap 17 ()?? 11/13/2022 12:56 Glucose Level 106 mg/dL (High)?? 11/13/2022 12:56 BUN 18 mg/dL ()?? 11/13/2022 12:56 Creatinine-Blood 0.7 mg/dL ()?? 11/13/2022 12:56 Estimated GFR Creatinine 100 ML/MIN/1.73 M2 ()?? 11/13/2022 12:56 Calcium 9.6 mg/dL ()?? 11/13/2022 12:56 Protein, Total 7.1 Gm/dL ()?? 11/13/2022 12:56 Albumin 4.6 Gm/dL ()?? 11/13/2022 12:56 AG Ratio 1.8 ()?? 11/13/2022 12:56 Alkaline Phosphatase 108 units/L (High)?? 11/13/2022 12:56 AST (SGOT) 18 units/L ()?? 11/13/2022 12:56 ALT (SGPT) 20 units/L ()?? 11/13/2022 12:56 Bilirubin, Total 0.4 mg/dL ()?? 11/13/2022 12:56 ?? COAG INR 1.2 (High)?? 11/13/2022 12:56 Protime (PT) 12.4 seconds (High)?? 11/13/2022 12:56 ?? VIROLOGY COVID-19 by RT-PCR NEGATIVE ()?? 11/13/2022 12:55 ?(11/13/2022 15:[address] Abdomen and Pelvis W/O Contrast) IMPRESSION:? 1. ??Severe sigmoid diverticulosis without any evidence of acute diverticulitis. 2. ??Focus of calcification in the mid abdomen measuring up to 1.4 cm, may be secondary to epiploicappendicitis versus a calcified lymph node. 3. ??Postoperative changes at the lower lumbar spine, stable. [1] [1]??CT Abdomen and Pelvis W/O Contrast; Tess Malloy MD 11/13/2022 15:46 EST Hospital Progress note * Modesta Fairchild RN: PERFORM, SIGN, VERIFY Event Display: Progress Note Hospital Authored Date: Patient: ISHMAEL HARRISON Age: 57 years Sex: Female : 1965 Associated Diagnoses: None Author: Gurinder CAMARILLO, Modesta Findings Problem Related to Alteration in Comfort : Alteration in Comfort/new 11/20/2022 11:00 EST Alteration in Comfort Related to Other: back pain Goals & Outcomes: Comfort Pt will report acceptable level of comfort & pain control, Pt will state importance of adhering to pain strategy regime, Pt will demonstrate necessary skills to manage pain, Non-verbal indicators will indicate comfort/pain control Interventions Implemented: Comfort Assess pain using appropriate pain scale/tools BH Goals/Interventions, Comfort Yes Comfort, Problem Start 11/18/2022 22:30 Reviewed plan with, Comfort Patient Patient Progression, Comfort Pt progressing according to plan Comfort, Problem Ongoing Yes . Nursing Data Vital Signs : VITAL SIGNS SECTION 11/20/2022 4:00 EST Temperature 97.8 DegF Temperature Route Oral Pulse Rate 57 bpm Respiratory Rate 17 br/min Systolic Blood Pressure 116 mm Hg Diastolic Blood Pressure 66 mm Hg Blood pressure sites Arm, left Pulse Pressure 50 mm Hg Oxygen Saturation 100 % Mode of Delivery (Oxygen) Room air . Narrative/Incidental Pt is alert and oriented x 4. Pt is lebanese speaking only and able to make her needs met. Pt took all medications without difficulty. Pt is calm and cooperative. Pt receiving IV pain medications currently but will switch to PO for d/c home. Pt complains of pain 6 - 8 out of 10. Pt has chronic pain at baseline. Nursing will continue to monitor the patient for the duration of her admission.. Discharge Information Case Management Discharge Plan : Case Management Discharge Plan Data 11/20/2022 9:11 EST Discharge Level of Care at Discharge Homehealth/VNA Discharge VNA/Hospice/Home Care [facility] Discharge Transportation Arranged family Mode of Transportation Arranged car Name of Agency #1 [facility] Service Categories #1 Physical Therapy Service Comments #1 [facility] will contact you within 24-48hours for start of service if you do not hear from them please call Rehabilitation Discharge : Rehab Discharge Index 11/19/2022 13:04 EST Walker: distance >50 11/15/2022 9:00 EST Comments on treatment indicated 57 F s/p aborted nerve stimulator placement at outside facility here with LBP. INDEP without AD and lives in home wiht s/o at baseline. Pt unable to sit EOB d/t pain on eval. See for balance, safety, mobility. Rehab indicated at this time. Distance pt will ambulate 25ft or greater Full chart review completed Yes Plan of care PT Gait training, Transfer training, Therapeutic exercise, Functional Activities, Balance training * Obie Sandoval RN: PERFORM, SIGN, VERIFY Event Display: Progress Note Hospital Authored Date: [id number] Patient: ISHMAEL HARRISON Age: 57 years Sex: Female : 1965 Associated Diagnoses: None Author: Obie Sandoval RN Findings Problem Related to Alteration in Comfort : Alteration in Comfort/new 11/20/2022 3:00 EST Alteration in Comfort Related to Other: back pain Goals & Outcomes: Comfort Pt will report acceptable level of comfort & pain control, Pt will state importance of adhering to pain strategy regime, Pt will demonstrate necessary skills to manage pain, Non-verbal indicators will indicate comfort/pain control Interventions Implemented: Comfort Assess pain using appropriate pain scale/tools, Assess aggravating factors & prevent them accordingly, Assess alleviating factors & promote them accordingly BH Goals/Interventions, Comfort Yes Comfort, Problem Start 11/18/2022 22:30 Reviewed plan with, Comfort Patient Patient Progression, Comfort Pt progressing according to plan Comfort, Problem Ongoing Yes . Narrative/Incidental Patient A&OX4. Patient took HS medications with ease. Call light and personal items within reach. . * Caitlin CLEMENTE, Leland Archibald: PERFORM, MODIFY Event Display: Progress Note Hospital Authored Date: [id number] Patient: ??ISHMAEL HARRISON ? Age:??57 Years?Sex:??Female?:??1965?? Subjective Seen and examined by bedside. Reviewed vitals, labs and imaging. Tanzanian speaking, translates c/o Back pain 7/10 intensity,??BM??today.?? Able to walk with physical therapy. ?? Acute pain service recs - PO Dilaudid 8mg q4 with goal to wean to off on discharge (patient does not take chronic home opioid medication for her chronic pain) - IV Dilaudid 1mg q6 PRN for breakthrough pain - Gabapentin to 500 TID (can go up to 1800 per day) - Valium PO 5mgq6 PRN - Continue Physical therapy - Encourage out of bed to chair, and increase in ambulation - Bowel regimen?? - Rest of care per primary team ?? Review of Systems Neg except as mentioned above. Objective Measurements?? Height: 160 cm (11/18/22) Weight: 79.6 kg (11/14/22) Dry Weight: 79.6 kg (11/14/22) Body Mass Index:??31.09 kg/m2??Critical (11/14/22) ? Vital Signs?? Temperature: 98.3 DegF (11/19/22 05:00:00) Temperature Route: Axillary (11/19/22 05:00:00) Pulse Rate:??49 bpm??Low (11/19/22 05:00:00) Respiratory Rate: 16 br/min (11/19/22 14:53:00) Respiratory Rate: 16 br/min (11/19/22 14:53:00) Systolic Blood Pressure:??145 mm Hg??High (11/19/22 05:00:00) Diastolic Blood Pressure: 67 mm Hg (11/19/22 05:00:00) Blood pressure sites: Arm, left (11/19/22 05:00:00) Oxygen Saturation: 99 % (11/19/22 05:00:00) Mode of Delivery (Oxygen): Room air (11/19/22 05:00:00) Early Warning Score: 1 (11/19/22 14:55:49) ? Intake/Output? 11/13 16:57 11/19 07:00 11/18 07:00 11/17 07:00 11/16 07:00 ?? 11/19 15:13 11/19 15:13 08 06:59 11/18 06:59 11/17 06:59 Intake ? 2435 ?0 ?0 ?950 ?0 Output ? 6300 ? 1000 ? 1400 ? 1100 ?500 Net Total ?-3865 ?-1000 ?-1400 ? -150 ? -500 ? Urine Count ?6 ?0 ?1 ?0 ?3 Diaper Count ?5 ?0 ?1 ?0 ?4 ? Physical Exam Constitutional: Alert, in no acute distress. Head EENT: Extraocular muscle movement intact.??Moist mucous membranes.?? Respiratory: Clear to auscultation. No wheezing or crackles. No use of accessory muscles. Cardiovascular: S1S2 regular. No murmurs, rubs or gallops. Gastrointestinal: Abdomen soft, non-tender, non-distended. Normal bowel sounds. Extremities: No lower extremity pitting??edema. No cyanosis or clubbing. Neurologic: AAOx3, Speech normal. No focal neurological deficits. Psychiatric: Normal mood and affect _ Inpatient Medications Medications (27) Active SCHEDULED: (19) Acetaminophen 325 mg Tablet (Tylenol 325 mg oral tablet) ??975 mg, By Mouth, Every 8 hours Breo Ellipta 100 mcg / 25 mcg Inhaler (Breo Ellipta 100 mcg-25 mcg Inhaler) ??1 puffs, Inhalation, Daily Enoxaparin 40 mg Inj (Enoxaparin Inj) ??40 mg 0.4 mL, Subcutaneous Injection, Daily Escitalopram 10 mg Tablet (escitalopram 10 mg oral tablet) ??5 mg, By Mouth, Daily Fluticasone Propionate 50mcg/inh Nasal [place] (fluticasone 50 mcg/inh nasal spray) ??50 mcg 1 sprays, Nares, Both, 2 times a day Gabapentin 300 mg Capsule (Gabapentin) ??600 mg, By Mouth, 3 times a day Hydrochlorothiazide 25 mg Tablet (hydrochlorothiazide 25 mg oral tablet) ??25 mg, By Mouth, Daily HYDROmorphone 4 mg Tablet (Dilaudid 4 mg oral tablet) ??8 mg, By Mouth, Every 4 hours Ketorolac 30 mg/mL Inj (Toradol Inj) ??15 mg 0.5 mL, IV Push, Every 6 hours Lidocaine 5% Topical Patch (Lidocaine 5% Patch) ??1 each, Topically, Daily Magnesium Hydroxide 8% Susp UD (Milk of Magnesia Liquid) ??30 mL, By Mouth, Daily Montelukast 10 mg Tablet (Singulair 10 mg oral tablet) ??10 mg, By Mouth, Daily at bedtime NaCl 0.9% Flush 3ml (NaCL 0.9% Flush) ??3 mL, IV Push, Every 8 hours Pantoprazole 20 mg EC Tablet (Protonix 20 mg oral delayed release tablet) ??20 mg, By Mouth, Daily Polyethylene Glycol 17 Gm Powder (MiraLax Powder) ??17 Gm 1 pack/packet, By Mouth, Daily PredniSONE 20 mg Tablet (predniSONE 20 mg oral tablet) ??60 mg, By Mouth, Daily Remove Patch (Remove Lidocaine Patch) ??1 each, Topically, Daily at bedtime Senna 8.6 mg / Docusate 50 mg tablet (Docusate/Senna Tablet) ??2 tablet, By Mouth, 2 times a day Tamsulosin 0.4 mg Capsule (tamsulosin 0.4 mg oral capsule) ??0.4 mg, By Mouth, Daily CONTINUOUS: (0) PRN: (8) Albuterol 90mcg/Inhalation Inhaler HFA (albuterol CFC free 90 mcg/inh inhalation aerosol) ??90 mcg 1 puffs, Inhalation, Every 4 hours Diazepam 5 mg Tablet (Valium 5 mg oral tablet) ??5 mg, By Mouth, Every 6 hours HYDROmorphone 1 mg/mL Inj Syringe (Dilaudid Inj) ??1 mg 1 mL, IV Push Slowly, Every 6 hours Melatonin 3 mg Tablet (Melatonin Tablet) ??3 mg, By Mouth, Daily at bedtime NaCl 0.9% Flush 3ml (NaCL 0.9% Flush) ??3 mL, IV Push, Every 8 hours nalOXONE ??400mcg/mL Inj (nalOXONE Inj) ??0.1 mg 0.25 mL, IV Push Slowly, Every 5 minutes Ondansetron 2mg/mL Inj (2mL Vial) (Zofran Inj) ??4 mg, IV Push, Every 6 hours Zolpidem 5 mg Tablet (Ambien Tablet) ??10 mg, By Mouth, Daily at bedtime ? Results Recent Labs BLOOD COUNT & DIFF WBC 10.6 k/mm3 ()?? 11/19/2022 09:03 RBC 4.38 m/mm3 ()?? 11/19/2022 09:03 Hgb 12.2 Gm/dL ()?? 11/19/2022 09:03 Hct 38.1 % ()?? 11/19/2022 09:03 MCV 87.0 femtoliters ()?? 11/19/2022 09:03 MCH 27.9 pg ()?? 11/19/2022 09:03 MCHC 32.0 g/dL (Low)?? 11/19/2022 09:03 Platelet Count 350 k/mm3 ()?? 11/19/2022 09:03 RDW-SD 43.0 femtoliters ()?? 11/19/2022 09:03 MPV 10.1 femtoliters ()?? 11/19/2022 09:03 Nucleated RBC (Automated) 0.0 #/100 WBC'S ()?? 11/19/2022 09:03 Abs. NRBC 0.0 k/mm3 ()?? 11/19/2022 09:03 ?? CHEM GENERAL Sodium 137 mmol/L ()?? 11/18/2022 01:04 Potassium 3.9 mmol/L ()?? 11/18/2022 01:04 Chloride 96 mmol/L (Low)?? 11/18/2022 01:04 Bicarbonate Level 31 mmol/L (High)?? 11/18/2022 01:04 Anion Gap 10 ()?? 11/18/2022 01:04 Glucose Level 107 mg/dL (High)?? 11/18/2022 01:04 BUN 26 mg/dL (High)?? 11/19/2022 09:03 Creatinine-Blood 0.8 mg/dL ()?? 11/18/2022 01:04 Estimated GFR Creatinine 84 ML/MIN/1.73 M2 ()?? 11/18/2022 01:04 Calcium 9.1 mg/dL ()?? 11/18/2022 01:04 ? Assessment/Plan Diagnoses Chief Complaint: spinal stimulator inserted today her spine today this morning, bleedign x 45 mins post op, increased/ new pain. original pain was lower back now new pain to right thigh. called rep for stimulator equipement tested stimulator removed ?? Acute on chronic lumbar radiculopathy?? Refractory pain 2/2 above -MRI w/ wo/ contrast did not show hematoma or other acute findings, reviewed with Dr. Hernandez no further inpatient intervention needed APS recs as above. PT recs home with services. ?? Opioid-induced constipation -escalate simple analgesics, if no BM tomorrow consider Relistor -abdomen exam benign, + flatus and tolerating PO low suspicion for ileus ?? HTN, controlled -HCTZ ?? Asthma not in exacerbation -continue Breo and albuterol prn ?? 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 Discussed with RN/APS. ?? VTE Prophylaxis:??Lovenox ?VTE Prophylaxis Assessment:??VTE Prophylaxis Ordered ?? Code Status:??Full ?Order Code Status:??Code Status Ordered ?? Ongoing Medical Necessity:??Acute pain control ?? Discharge Planning:??DC plan am. ? Note * Modesta Fairchild RN: PERFORM Event Display: Discharge/Transfer Note Hospital Authored Date: [id number] Nursing Discharge Note Entered On: 11/20/2022 13:55 EST Performed On: 11/20/2022 14:04 EST by Modesta Fairchild RN Nursing Discharge Note 2 Discharge Time : 11/20/2022 13:54 EST Discharge Level of Care at Discharge : Homehealth/VNA Discharge VNA/Hospice/Home Care(v001) : [facility] Patient Left Unit Via : Wheelchair Patient Accompanied Off Unit with : Significant other DC Instructions Provided & Signed by Pt : Yes Patient Understands D/C Instructions : Yes Patient Instructions Discharge Signed : Yes Did Pt have Specialty Bed or Wound Vac : No Modesta Fairchild RN - 11/20/2022 13:54 EST * Caitlin CLEMENTE, Leland Archibald: PERFORM, MODIFY, MODIFY Event Display: Discharge/Transfer Note Hospital Authored Date: [id number] Patient: ??ISHMAEL HARRISON ? Age:??57 Years?Sex:??Female?:??1965?? Patient Information Discharge Location: 4 Primary Care Physician: Shaina CLEMENTE, Ernie Cortez Admit Date/Time: 11/13/22 16:57 Discharge Disposition Discharge Disposition: ?? Discharge Diagnosis Acute on chronic lumbar radiculopathy? _ Discharge Medications Albuterol (ProAir HFA 90 mcg/inh inhalation aerosol with adapter)?1?puff(s)?Inhalation?Every 4 hours?as needed?for wheezing Beclomethasone (Qvar 80 mcg/inh inhalation aerosol)?Inhalation?2 times a day Diazepam (Valium 5 mg oral tablet)?5?Milligram?1?tablet?By Mouth?4 times a day?as needed?for anxiety Estradiol Topical (Yuvafem 10 mcg vaginal tablet)?1?tab(s)?10?Microgram?Vaginally?twice a week ??no specific days Fluticasone-Salmeterol (Advair Diskus 250 mcg-50 mcg inhalation powder)?one puff?Inhalation?2 times a day Gabapentin (gabapentin 600 mg oral tablet)?1?tab(s)?600?Milligram?By Mouth?3 times a day Hydromorphone (Dilaudid 8 mg oral tablet)?See Instructions?as needed?as needed for pain?1 tablet po q 4 hrly prn for 3 days then q 6hrly prn for severe pain Loratadine (Claritin 10 mg oral tablet)?10?Milligram?1?tablet?By Mouth?Daily?for 14?Days Montelukast (Singulair 10 mg oral tablet)?10?Milligram?1?tablet?By Mouth?Daily atbedtime Naproxen?500?Milligram?By Mouth?2 times a day [place] [address]-3 Polyunsaturated Fatty Acids (Fish Oil)?one capsule?By Mouth?Daily ? Quality Measures Tobacco Use Treatment:? Vaccinations and Immunoprophylaxis SARS-CoV-2 (COVID-19) mRNA-1273 vaccine: 0.25 Unknown (08/28/21 07:00:00) SARS-CoV-2 (COVID-19) mRNA-1273 vaccine: 0.5 Unknown (02/22/21 08:00:00) SARS-CoV-2 (COVID-19) mRNA-1273 vaccine: 0.5 Unknown (01/24/21 08:00:00) [id number] 12y+ bivalent booster vax: 0.3 Unknown (07/16/22 08:00:00) ?? Medications Started Dilaudid and??Valium Medications Discontinued Ambien Doses Changed Gabapentin Allergies Allergies ?(Active and Proposed Allergies Only) NKA? (Severity: Unknown severity, Onset: Unknown) ? PCP Follow-Up/Heads-Up PCP f/u in 1-2 weeks ?? Hospital Course ??This is a 57-year-old female??who is primarily Tanzanian-speaking??with past medical history of hypertension, gastritis, GERD,??hyperlipidemia, and asthma,??who currently presents to the hospital??after she underwent attempted placement??of??a thoracic spinal stimulator??at the surgery Center [facility].?? The patient has a history of previous??L2-L3 decompression surgery??in 2020.?? She states that over the past year, she has had increasing pain??in her??low back??for which she was seen??at the surgery center [facility]. ??She previously had??received a couple of spinal injections??and today had presented there??for??thoracic spinal??stimulation.?? The patient developed??worsening low back pain with radiation to her right leg??and right thigh??during her procedure.?? Based on this, she was sent to the ED for further assessment.?? She had lab work done here that showed a mildly elevated white count 11.1, with a hemoglobin of 12.4.?? Other labs were fairly unremarkable except for a mildly elevated alk phos of 108.?? The patient did undergo CT scan of the abdomen pelvis today that showed severe sigmoid diverticulosis with focus of calcification in the mid abdomen measuring up to 1.4 cm, possibly from epiploic appendicitis versus a calcified lymph node.?? There is some posto perative changes noted at the lower lumbar spine that were stable, and a few foci of gas seen in the thoracic spinal canal likely due to instrumentation.?? The patient was treated with multiple dosesof pain medication and currently reports her pain at 8 out of 10, which she states is similar to the pain she has been experiencing in the past few days.?? She is now admitted for further management.. Objective Assessment and Plan Acute on chronic lumbar radiculopathy? -MRI w/ wo/ contrast?? shows ??Moderate central stenosis at L1-2, mild central stenosis at L2-3, did not show hematoma. Dr. Hernandez no further inpatient intervention needed. ?? Acute pain services recs - PO Dilaudid 8mg q4 with goal to wean to off on discharge (patient does not take chronic home opioid medication for her chronic pain) - Gabapentin to 500 TID (can go up to 1800 per day) - Valium PO 5mgq6 PRN - Continue home Physical therapy. ?? HTN, controlled -HCTZ ?? Asthma -continue Breo and albuterol prn ?? Insomnia -Held Ambien since pt is taking Valium. ?? Pt is clinically and hemodynamically better at discharge. ?? Vital Signs?? Temperature: 97.8 DegF (11/20/22 04:00:00) Temperature Route: Oral (11/20/22 04:00:00) Pulse Rate: 57 bpm (11/20/22 04:00:00) Respiratory Rate: 18 br/min (11/20/22 10:44:00) Systolic Blood Pressure: 116 mm Hg (11/20/22 04:00:00) Diastolic Blood Pressure: 66 mm Hg (11/20/22 04:00:00) Blood pressure sites: Arm, left (11/20/22 04:00:00) Pulse Pressure: 50 mm Hg (11/20/22 04:00:00) Oxygen Saturation: 100 % (11/20/22 04:00:00) Mode of Delivery (Oxygen): Room air (11/20/22 04:00:00) Early Warning Score: 2 (11/20/22 10:47:07) ? . Physical Exam ?Constitutional: Alert, in no acute distress. ?Head EENT: Extraocular muscle movement intact.??Moist mucous membranes.?Respiratory: Clear to auscultation. No wheezing or crackles. No use of accessory muscles. ?Cardiovascular: S1S2 regular. No murmurs, rubs or gallops. ?Gastrointestinal: Abdomen soft, non-tender, non-distended. Normal bowel sounds. ?Extremities: No lower extremity pitting??edema. No cyanosis or clubbing. ?Neurologic: AAOx3, Speech normal. No focal neurological deficits. ?Psychiatric: Normal mood and affect _ Pending Results COVID-19 (2019 Novel Coronavirus) PCR ordered on 11/20/2022 Type and Screen ordered on 11/13/2022 Home Health Face to Face *Denotes mandatory regan ?? *I certify that this patient is under my care and that I or an allowed non- physician working with me had a face to face encounter with the patient on this date:??11/20/2022 11:11 ?? *The encounter with the patient was in whole, or in part, for the following medical condition, which is the primary diagnosis(es) for home health care:??Acute bilateral back pain (M54.9) Back pain (M54.9) ? *Select the indications for the discipline/s that are being arranged for this patient. Nursing (select all that apply): [_] None [_] Medication management (reconciliation, teaching)?? [_] Chronic disease management?? [_] Wound care and treatment?? [_] Home safety evaluation [_] Administer SQ/IM/IV medications?? [_] Cath care?? [_] Drain care?? [_] Trach or GT care?? Other _ Occupation Therapy (select all that apply): [_] None [_] ADL Management [_x] Fall prevention training [_] Energy conservation [_] Cognitive training Other _ Physical Therapy (select all that apply): [_] None [x_] Functional mobility training [_x] Home exercise program to strengthen [_x] Increase ROM?? [_x] Falls prevention training [_] Home maintenance program for chronic disease Other _ Speech Therapy (select all that apply): [_] None [_] Swallow evaluation and training [_] Speech and language training [_] Cognitive training to process, organize, and/or recall information Other _ ? *Homebound due to (select all that apply): [x_] Inability to leave home without assistance/supervision [x_] Inability to ambulate without assistance [_] Pain [_] Decreased strength and endurance [_] Unsteady gait [_] Severe SOB and fatigue [_] Impaired transfers [_] Inability to negotiate stairs [_] Limited weight bearing [_] Mental status change? *Physician Signature: Leland Tucker_ ?? *By signing this, I certify that I have personally evaluated the patient and agree with the findings and recommendations as documented above. ? TF Results Discharge Labs BLOOD BANK Blood Type O Positive ()?? 11/13/2022 14:22 Antibody Screen Negative ()?? 11/13/2022 14:22 ?? BLOOD COUNT & DIFF WBC 10.6 k/mm3 ()?? 11/19/2022 09:03 RBC 4.38 m/mm3 ()?? 11/19/2022 09:03 Hgb 12.2 Gm/dL ()?? 11/19/2022 09:03 Hct 38.1 % ()?? 11/19/2022 09:03 MCV 87.0 femtoliters ()?? 11/19/2022 09:03 MCH 27.9 pg ()?? 11/19/2022 09:03 MCHC 32.0 g/dL (Low)?? 11/19/2022 09:03 Platelet Count 350 k/mm3 ()?? 11/19/2022 09:03 RDW-SD 43.0 femtoliters ()?? 11/19/2022 09:03 MPV 10.1 femtoliters ()?? 11/19/2022 09:03 Nucleated RBC (Automated) 0.0 #/100 WBC'S ()?? 11/19/2022 09:03 Abs. NRBC 0.0 k/mm3 ()?? 11/19/2022 09:03 Abs. Neut 8.1 k/mm3 (High)?? 11/13/2022 12:56 Abs. Lymph 2.2 k/mm3 ()?? 11/13/2022 12:56 Abs. [place] 0.6 k/mm3 ()?? 11/13/2022 12:56 Abs. Eo 0.1 k/mm3 ()?? 11/13/2022 12:56 Abs. Baso 0.1 k/mm3 ()?? 11/13/2022 12:56 Neut % 73.2 % ()?? 11/13/2022 12:56 Lymph % 19.8 % ()?? 11/13/2022 12:56 [place] % 5.8 % ()?? 11/13/2022 12:56 Eos % 0.5 % ()?? 11/13/2022 12:56 Baso % 0.5 % ()?? 11/13/2022 12:56 Imm Gran 0.2 % ()?? 11/13/2022 12:56 Abs. Imm Gran 0.0 k/mm3 ()?? 11/13/2022 12:56 ?? CHEM GENERAL Sodium 137 mmol/L ()?? 11/18/2022 01:04 Potassium 3.9 mmol/L ()?? 11/18/2022 01:04 Chloride 96 mmol/L (Low)?? 11/18/2022 01:04 Bicarbonate Level 31 mmol/L (High)?? 11/18/2022 01:04 Anion Gap 10 ()?? 11/18/2022 01:04 Glucose Level 107 mg/dL (High)?? 11/18/2022 01:04 BUN 24 mg/dL (High)?? 11/20/2022 01:56 Creatinine-Blood 0.8 mg/dL ()?? 11/18/2022 01:04 Estimated GFR Creatinine 84 ML/MIN/1.73 M2 ()?? 11/18/2022 01:04 Calcium 9.1 mg/dL ()?? 11/18/2022 01:04 Protein, Total 7.1 Gm/dL ()?? 11/13/2022 12:56 Albumin 4.6 Gm/dL ()?? 11/13/2022 12:56 AG Ratio 1.8 ()?? 11/13/2022 12:56 Alkaline Phosphatase 108 units/L (High)?? 11/13/2022 12:56 AST (SGOT) 18 units/L ()?? 11/13/2022 12:56 ALT (SGPT) 20 units/L ()?? 11/13/2022 12:56 Bilirubin, Total 0.4 mg/dL ()?? 11/13/2022 12:56 ? COAG INR 1.2 (High)?? 11/13/2022 12:56 Protime (PT) 12.4 seconds (High)?? 11/13/2022 12:56 ?? VIROLOGY COVID-19 by RT-PCR NEGATIVE ()?? 11/13/2022 12:55 COVID-19 PCR Specimen Source NASAL ()?? 11/17/2022 06:27 COVID-19 PCR Result NEGATIVE ()?? 11/17/2022 06:27 ? 25_ minutes spent on discharge * Aminata Russell RN: PERFORM, SIGN, VERIFY Event Display: Case Management Discharge Plan Authored Date: [id number] Patient: ISHMAEL HARRISON Age: 57 years Sex: Female : 1965 Associated Diagnoses: None Author: Aminata Russell RN Discharge Plan Case Management Discharge Plan : Case Management Discharge Plan Data 11/20/2022 9:11 EST Discharge Level of Care at Discharge Homehealth/VNA Discharge VNA/Hospice/Home Care [facility] Discharge Transportation Arranged family Mode of Transportation Arranged car Name of Agency #1 [facility] Service Categories #1 Physical Therapy Service Comments #1 [facility] will contact you within 24-48hours for start of service if you do not hear from them please call * Aminata Russell RN: PERFORM, SIGN, VERIFY Event Display: Case Management Discharge Plan Authored Date: [id number] Patient: ISHMAEL HARRISON Age: 57 years Sex: Female : 1965 Associated Diagnoses: None Author: Aminata Russell RN Discharge Plan Case Management Discharge Plan : Case Management Discharge Plan Data 11/20/2022 9:11 EST Discharge Level of Care at Discharge Homehealth/VNA Discharge VNA/Hospice/Home Care [facility] Discharge Transportation Arranged family Mode of Transportation Arranged car Name of Agency #1 [facility] Service Categories #1 Physical Therapy Service Comments #1 [facility] will contact you within 24-48hours for start of service if you do not hear from them please call * Modesta Fairchild RN: PERFORM Event Display: Patient Education/Instruction Authored Date: [id number] Inpatient Adult Discharge Instructions [address] [id number] Name: ISHMAEL WOMACK : 1965 Visit: 11/13/2022 16:57:00 Current Date: 11/20/2022 11:53 Account: [id number] Inpatient Adult Discharge Instructions We would like to thank you for allowing us to assist you with your healthcare needs. The following includes patient education materials and information regarding your injury/illness. Our entire staffstrives to provide an excellent experience for our patients and their families. PLEASE ENSURE YOU FOLLOW-UP PER THE INSTRUCTIONS BELOW! ?? YOUR OPINION IS IMPORTANT TO US! Please complete the survey you may receive by mail or email. Your feedback will be used to make improvements to the healthcare experiences of our patients and their families. Surveys are administered by [employer]. ?? If further treatment with your primary care physician or another doctor is recommended, it is important for you to keep the appointment. Call your primary care physician or return to the Emergency Department immediately if your condition worsens, fails to improve, or new symptoms develop. If you need to find a doctor, you can call [facility] for a referral at [phone] or toll free at [phone] ([phone]) or log in to [email or web address] ?? You can view and manage your care through the patient portal or by using a health care ethel of your choosing. [employer] is a website that allows you to securely view your medical information including your hospital discharge summary, office visit summaries, medications and follow-up visits. You can also request appointments, renew medications, and request access to your medical information using a health care ethel of your choosing, or just ask a question. You can enroll at [email or web address] or register during your next office visit. You have been discharged from [facility], Patient Care Unit: S64. If you have any questions regarding these instructions after you leave, please call us and we will be happy to assist you. [facility] Your Care Team Attending Physician Leland Tucker MD Discharging Providers Leland Tucker MD Reason for Admission spinal stimulator inserted today her spine today this morning, bleedign x 45 mins post op, increased/ new pain. original pain was lower back now new pain to right thigh. called rep for stimulator equipement tested stimulator removed Your Diagnosis Back pain Acute bilateral back pain Tests Performed Below is a partial list of the tests performed during your hospitalization. You may have had other tests and procedures not included in this list. Please discuss all test results with your provider. Basic Metabolic Panel BUN CBC CBC w/ Differential Comprehensive Metabolic Panel COVID-19 (2019 Novel Coronavirus) PCR?-- Results Pending -- COVID-19 (Novel Coronavirus), Rapid PCR H + H Hgb + Hct INR CT Abdomen and Pelvis W/O Contrast Lumbar Spine MRI W+W/O Contrast XR Knee 1 or 2 Views Right ? You will be contacted within 72 hours with your results. Primary Care Provider Shaina CLEMENTE, Ernie Cortez Advance Directive Health Care Proxy on File Yes - Health Care Proxy Discharge Vitals Temperature: 97.8 DegF Height: 160 cm Pulse Rate: 57 bpm Weight: 79.6 kg Respiratory Rate: 18 br/min Body Mass Index:??31.09 kg/m2??Critical Systolic Blood Pressure: 116 mm Hg Body surface area: 1.88 Diastolic Blood Pressure: 66 mm Hg ?? Oxygen Saturation: 100 % ?? Studies Pending All tests and labs ordered during this hospital stay have been completed unless listed below. Please discuss all pending results with your provider listed above in these instructions. ?? COVID-19 (2019 Novel Coronavirus) PCR Type and Screen What to do next Instructions From Your Doctor Discharge Orders Discharge Medications ISHMAEL HARRISON :1965 Visit Date:11/13/2022 Medications: Please continue your medications until treatment is completed or stopped by your provider. Medications not listed below should be discontinued. Discuss any questions related to medications with your provider. What How Much When Instructions Next Dose New Diazepam (Valium 5 mg oral tablet) 1 tab(s) Oral 4 times a day as needed for for anxiety Printed Prescription as needed today New Hydromorphone (Dilaudid 8 mg oral tablet) See instructions 1 tablet po q 4 hrly prn for 3 days then q 6hrly prn for severe pain ?? Printed Prescription today at 5pm Changed Gabapentin (gabapentin 600 mg oral tablet) 1 tab(s) Oral 3 times a day [facility] tonight Unchanged Albuterol (Albuterol 0.083% inhalation pamela) tomorrow Unchanged Albuterol (ProAir HFA 90 mcg/ inh inhalation aerosol with adapter) 1 puff(s) Inhalation Every 4 hours as needed for for wheezing as needed Unchanged Beclomethasone (Qvar 80 mcg/ inh inhalation aerosol) Inhalation Twice a day tonight Unchanged Estradiol Topical (Yuvafem 10 mcg vaginal tablet) 1 tab(s) Vaginally twice a week ??no specific days ?? as prescribed Unchanged Fluticasone-Salmeterol (Advair Diskus 250 mcg-50 mcg inhalation powder) one puff Inhalation Twice a day tonight Unchanged Loratadine (Claritin 10 mg oral tablet) 1 tab(s) Oral Daily Duration: 14 Days tomorrow Unchanged Montelukast (Singulair 10 mg oral tablet) 1 tab(s) Oral Daily at Bedtime tonight Unchanged Naproxen 500 Milligram Oral Twice a day tonight Unchanged [address]-3 Polyunsaturated Fatty Acids (Fish Oil) one capsule Oral Daily tomorrow Pharmacy Information [facility]: [address] [place], [place] [id number] [phone] ?? What How Much When Comments Stop Taking Zolpidem (zolpidem 10 mg oral tablet) 1 tab(s) Oral Daily at Bedtime as needed for for sleep Test Results Below is a partial list of the most recent Laboratory test results done prior to this discharge. You may have had other tests and procedures not included in this list. Please discuss all test resultswith your provider. Antibody Screen - Negative (11/13/2022) Blood Type - O Positive (11/13/2022) Basic Metabolic Panel (11/18/2022) ???Sodium - 137 mmol/L???Potassium - 3.9 mmol/L???Chloride - 96 mmol/L???Bicarbonate Level - 31 mmol/L???Anion Gap - 10???Glucose Level - 107 mg/dL???BUN - 27 mg/dL???Creatinine-Blood - 0.8 mg/dL???Estimated GFR Creatinine - 84 ML/MIN/1.73 M2???Calcium - 9.1 mg/dL BUN (11/20/2022) ???BUN - 24 mg/dL CBC (11/19/2022) ???WBC - 10.6 k/mm3???RBC - 4.38 m/mm3???Hgb - 12.2 Gm/dL???Hct - 38.1 %???MCV - 87.0 femtoliters???MCH - 27.9 pg???MCHC - 32.0 g/dL???Platelet Count - 350 k/mm3???RDW-SD - 43.0 femtoliters???MPV - 10.1 femtoliters???Nucleated RBC (Automated) - 0.0 #/100 WBC'S???Abs. NRBC - 0.0 k/mm3 CBC w/ Differential (11/13/2022) ???WBC - 11.1 k/mm3???RBC - 4.40 m/mm3???Hgb - 12.4 Gm/dL???Hct - 36.8 %???MCV - 83.6 femtoliters???MCH - 28.2 pg???MCHC - 33.7 g/dL???Platelet Count - 395 k/mm3???RDW-SD - 41.3 femtoliters???MPV - 10.1 femtoliters???Nucleated RBC (Automated) - 0.0 #/100 WBC'S???Abs. NRBC - 0.0 k/mm3???Abs. Neut - 8.1 k/mm3???Abs. Lymph - 2.2 k/mm3???Abs. [place] - 0.6 k/mm3???Abs. Eo - 0.1 k/mm3???Abs. Baso - 0.1 k/mm3???Neut % - 73.2 %???Lymph % - 19.8 %???[place] % - 5.8 %???Eos % - 0.5 %???Baso % - 0.5 %???Imm Gran - 0.2 %???Abs. Imm Gran - 0.0 k/mm3 Comprehensive Metabolic Panel (11/13/2022) ???Sodium - 139 mmol/L???Potassium - 3.9 mmol/L???Chloride - 99 mmol/L???Bicarbonate Level - 23 mmol/L???Anion Gap - 17???Glucose Level - 106 mg/dL???BUN - 18 mg/dL???Creatinine-Blood - 0.7 mg/dL???Estimated GFR Creatinine - 100 ML/MIN/1.73 M2???Calcium - 9.6 mg/dL???Protein, Total - 7.1 Gm/dL???Alb umin - 4.6 Gm/dL???AG Ratio - 1.8???Alkaline Phosphatase - 108 units/L???AST (SGOT) - 18 units/L???ALT (SGPT) - 20 units/L???Bilirubin, Total - 0.4 mg/dL COVID-19 (Novel Coronavirus), Rapid PCR (11/13/2022) ???COVID-19 by RT-PCR - NEGATIVE H + H (11/15/2022) ???Hgb - 10.3 Gm/dL???Hct - 32.6 % Hgb + Hct (11/14/2022) ???Hgb - 11.3 Gm/dL???Hct - 36.1 % INR (11/13/2022) ???INR - 1.2???Protime (PT) - 12.4 seconds Allergies (NKA means No Known Allergies) NKA Problems Active Problems??(10) Anxiety?? Asthma?? Degenerative Lumbar Disc L3-L4?? Depression?? Gastritis?? GERD (gastroesophageal reflux disease)?? Hyperlipidemia?? Hypertension?? OA?? Obese class I?? Education Materials Below is the list of Educational Leaflet Providered with your Discharge Instructions. Valuables and Belongings I fully understand and agree that [facility] accepts no responsibility for all my personal property including clothing, toilet articles, radios, jewelry, dentures, hearing aids, rings, money, or any other property that is in my possession or is brought to me after admission. I understand certain valuables may be placed in a hospital safe for a short period of time. I understand that the hospital is not liable for loss or damage due to accident, fire, or other natural occurrence while said property is in the safe. I accept full responsibility for any personal property that I keep with me, and will not hold the hospital responsible in case of loss or disappearance. I acknowledge that i have been encouraged to send valuables and belongings home. ?? Review of Valuable and Belonging List: With patient Date for Pt to Sign Valuables/Belongings: 11/16/22 16:21:00 ?? Other Discharge Information ? Case Management Discharge Plan?? Discharge Plan?? Discharge Agency Information?? Discharge Level of Care at Discharge: Homehealth/VNA Name of Agency #1: [facility] Discharge Transportation Arranged: family Service Categories #1: Physical Therapy Mode of Transportation Arranged: car Service Comments #1: [facility] will contact you within 24-48 hours for start of service if you do not hear from them please call Discharge VNA/Hospice/Home Care: [facility] ? Pulmonary Rehab Status?? Pulmonary Rehab Discharge Status?? Respiratory Rate: 18 br/min ? Common Emergency Awareness Tips IS IT A STROKE? Act FAST and Check for these signs: FACE Does the face look uneven? ARM Does one arm drift down? SPEECH Does their speech sound strange? TIME Call at any sign of stroke ?? Heart Attack Signs Chest discomfort: Most heart attacks involve discomfort in the center of the chest and lasts more than a few minutes, or goes away and comes back. It can feel like uncomfortable pressure, squeezing, fullness or pain. Discomfort in upper body: Symptoms can include pain or discomfort in one or both arms, back, neck, jaw or stomach. Shortness of breath: With or without discomfort. Other signs: Breaking out in a cold sweat, nausea, or lightheaded. Remember, MINUTES DO MATTER. If you experience any of these heart attack warning signs, call to get immediate medical attention! ?? Smoking can increase your chances of developing chronic health problems and can cause harmful effects to other family members in your house. If you smoke, you are strongly encouraged to quit. Please call [facility] at [phone] or [phone] ([phone]) or log in to [email or web address] for referrals to smoking cessation programs. ?? The National Suicide Prevention Hotline is available 04/05 if you or someone you know needs to find a reason to keep living. By calling 2-248-882-Roundarch (3360) you'll be connected to a skilled, trained counselor at a crisis center in your area. INPATIENT DISCHARGE INSTRUCTIONS SIGNATURE PAGE CAROLINA VU ISHMAEL Location:[facility] Registration Date and Time:11/13/2022 16:57 EST Primary Care Physician: Shaina CLEMENTE, Ernie Cortez, I ISHMAEL HARRISON, have received the above patient education materials/instructions and have verbalized understanding. If ambulance or transport services are being used I further acknowledgebeing given a choice of service. ?? If you need to contact me, please call me at this number: . Patient/Surveyor Chain Helper Name: Patient/Surveyor Chain Helper Signature: Relationship to Patient: Witness Name/Signature: Date: MR Lumbar spine WO and W contrast IV * BHSPowerscribe , CIS S: TRANSCRIBE Adonis Sánchez MD: VERIFY Event Display: Result: Authored Date: [id number] MRI Lumbar Spine W+W/O Contrast INDICATION: Reason: Radiculopathy Right; History of laminectomy with fusion, aborted spinal stimulator implant with bleeding and severe pain, r o hematoma and other complications; Clinical Question(s): Other:; Order Comment: Please see Reference Text for complete list of contraindications Other: TECHNIQUE: MRI of the lumbar spine was performed with and without intravenous contrast utilizing sagittal T1, sagittal T2, sagittal STIR, axial T1, and axial T2-weighted sequences, and post-contrast sagittal T1 and axial T1-weighted sequences. 16 mL of Clariscan was administered intravenously. COMPARISON: MRI 08/25/2022 FINDINGS: NUMBERING: The study assumes 5 [id number] lumbar type vertebral bodies. No hematoma is noted within or adjacent to the spinal canal. No abnormal fluid collection is demonstrated within the spinal canal. ALIGNMENT, VERTEBRAE, MARROW, AND DISCS: Anterior and posterior fusion is present from L3 through S1 with bone graft cages at each level and bilateral pedicle screws at L4 and L5. A 7 mm L2-3 spondylolisthesis and a 5 mm T12-L1 retrolisthesis are noted. CONUS: The conus is normal in signal and contour, with normal level of termination at L1. There is no abnormal enhancement. PARASPINAL TISSUES: No mass is identified. There is a small loculated fluid collection posterior tothe region of the right lamina of L3, which may have been resected. The fluid collection measures up to 1.3 cm in diameter. There is no marginal enhancement to suggest this represents an abscess. Thefluid collection lies immediately medial to the right L3 pedicle screw. This is unchanged from 08/15/2022. Epidural lipomatosis is present at the T12-L1 level with prominent anterolateral epidural fat and posterior epidural fat scalloping of the subarachnoid space. Mild to moderate stenosis is produced, accentuated by a 5 mm retrolisthesis at this level and a tiny central disc herniation. This appearance is unchanged. Marked disc space narrowing is noted at this level. A similar pattern of epidural lipomatosis is present at T12-L1 with moderate central stenosis produced. There is near effacement of T2 hyperintense CSF within the subarachnoid space. Mild annular bulging and moderate facet arthropathy contributes to the stenosis. Mild disc space narrowing is present. Moderate annular bulging is present at L1-2. There is prominence of anterolateral and posterior epidural fat with mild facet arthropathy. A moderate degree of central stenosis is produced. A 6 mm L2-3 spondylolisthesis is present. Marked disc space narrowing is noted. Marked facet arthropathy and infolding of the left ligamentum flavum is noted. The right lamina and ligamentum flavum appear to have been resected at the level of L3. Mild central stenosis is produced. No compromise of the canal or foramina is noted at the fused L3-4, L4-5 or L5-S1 levels. The appearance at these levels is unchanged. IMPRESSION: 1. No significant change from 08/15/2022. No fluid collection is demonstrated within the spinal canal. No hematoma is appreciated. 2. Mild to moderate central stenosis at T12-L1, largely related to epidural lipomatosis. 3. Moderate central stenosis at L1-2. 4. Mild central stenosis at L2-3. WSN: [id number] Ordering Physician: Karen Light Dictated By: Adonis Sánchez MD Dictated Date/Time: 11/17/22 7:38 am Reviewed By: Adonis Sánchez MD Signed By: Adonis Sánchez MD Signed Date/Time: 11/17/22 7:38 am Transcribed By: DENA Transcribed Date/Time: 11/17/22 7:22 am XR Knee - right 1 or 2 Views * ANGELASPowerscribe , CIS S: Catalina Chi MD: VERIFY Event Display: Result: Authored Date: [id number] Knee 1 or 2 Views Right, 2 views Reason: Pain; right knee pain, tender on palpation, h o right knee joint replacement; Clinical Question(s): Bursitis COMPARISON: None. FINDINGS: Total knee arthroplasty. Hardware is intact. There a patellar enthesophytes. No evidence of joint effusion. IMPRESSION: Right total knee arthroplasty. No acute osseous findings. No significant joint effusion. WSN: [id number] Ordering Physician: Krista Foreman Dictated By: Catalina Parker MD Dictated Date/Time: 11/14/22 2:16 pm Reviewed By: Catalina Parker MD Signed By: Catalina Parker MD Signed Date/Time: 11/14/22 2:16 pm Transcribed By: DENA Transcribed Date/Time: 11/14/22 2:[address] Abdomen and Pelvis WO contrast * ANGELASPowerscravenbe , CIS S: Tess Villasenor MD: VERIFY Pedro Barrett MD A: SIGN Event Display: Result: Authored Date: [id number] CT Abdomen and Pelvis W/O Contrast Hx of Present Illness: pt states she went today to get a spinal stimulator inserted post op pt reports increased pain and new pain down her right leg, 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 Thisstudy was performed without oral contrast. Weight- based protocol using automatic tube modulation was used to optimize exposure parameters. CTDIvol Body: 10.26 mGy, DLP Body: 513 mGy*cm. COMPARISON: MRI lumbar spine dated 08/15/2022. FINDINGS: Limited evaluation secondary to lack of intravenous contrast. V Belt Inspector View Findings, Lines and Tubes: None. Visualized Chest: Lung bases are clear. No pleural effusion. The heart is normal in size. No pericardial effusion. Diaphragm: Normal. Liver: Normal. Gallbladder: No CT evidence of gallbladder pathology. Bile ducts: No biliary ductal dilation. Spleen: Normal. Accessory splenic tissue is incidentally noted. Pancreas: Atrophic Adrenal glands: Normal. Kidneys and ureters: No hydronephrosis, stones, or noncontrast evidence of suspicious masses. Bladder: Normal. Reproductive organs: Unremarkable. Stomach, small bowel, and large bowel: Normal caliber bowel loops without any evidence of obstruction. Severe sigmoid diverticulosis without evidence of acute diverticulitis. Mild stool retention in the rectum. Focus of calcification in the mid abdomen measuring up to 1.4 cm, series 601, image 48 may be secondary to epiploic appendicitis versus a calcified lymph node. Appendix: Normal. Peritoneum and retroperitoneum: No ascites or pneumoperitoneum. No omental or mesenteric lesions. Lymph nodes: Please see above. Blood vessels: Normal. No aneurysm. Abdominal and pelvic wall: Mild muscular atrophy of the lower paraspinal muscles. Bones: No acute abnormality. Severe multilevel degenerative change of the thoracolumbar spine. Unremarkable spinal fusion hardware L3-L4 and intervertebral disc spacer devices at the L4-L5 and L5-S1 levels. Severe disc space narrowing at the T12-L1 level with bridging osteophytes. A few foci of gas are seen in the thoracic spinal canal, likely related to recent instrumentation versus degenerativechanges. IMPRESSION: 1. Severe sigmoid diverticulosis without any evidence of acute diverticulitis. 2. Focus of calcification in the mid abdomen measuring up to 1.4 cm, may be secondary to epiploic appendicitis versus a calcified lymph node. 3. Postoperative changes at the lower lumbar spine, stable. Findings were cortexted to TINA Turcios at 4:55 PM on 11/13/2022. I have personally reviewed the images and I agree with this report. WSN: [id number] Ordering Physician: Negra Turcios Dictated By: Pedro Barrett MD Dictated Date/Time: 11/13/22 5:10 pm Reviewed By: Tess Malloy MD Signed By: Tess Malloy MD Signed Date/Time: 11/13/22 5:15 pm Transcribed By: DENA Transcribed Date/Time: 11/13/22 4:56 pm Patient Care team information Care Team Personnel Name: Shaina CLEMENTE, Ernie Cortez Position: [facility] Outreach Member Role: PCP Address: Address: [address] [place] [address] Name: Annita Coates RN Position: [facility] RN Member Role: Primary Care Nurse Name: Dottie Alfred RN Position: [facility] RN Member Role: Primary Care Nurse Name: Jessica Monroy RN Position: [facility] RN Member Role: Primary Care Nurse Name: Maria Elena Waggoner RN, I Position: [facility] RN Member Role: Primary Care Nurse Name: Vadim Sullivan RN Position: [facility] RN Member Role: Primary Care Nurse Name: Sofía RADER Attending Position: [facility] ED Medicine Name: José Aaron RN Position: [facility] RN Member Role: Patient Care Provider Name: Sierra Boyer Position: [facility] ED TA [facility] Name: Nahid Silverio RN Position: [facility] ED RN W/OE and Tasks Member Role: Patient Care Provider Name: Vanessa Carbajal Position: [facility] ED OA Charge Member Role: ED Associate Care Team Related Persons Name: CLAUDIA HINOJOSA Address: home [address] [place] [address]
--- OUTSIDE RECORDS SUMMARY | 2024-02-03 07:38 | XMS_ITS | Continuity of Care Document ---
Author Organization [facility] ter Address [address] [place] [id number]- Care Team Providers Care Automotive Service Advisor Name Role Phone Shaina CLEMENTE, Ernie Cortez Primary Care Physi dom Encounter [facility] Date(s): 11/19/22 - 12/19/[address] [address]- Attending Physician: Not on Staff, Attending MD Admitting Physician: Not on Staff, Admitting MD Referring Physician: Not on Staff, Referring MD Allergies, Adverse Reactions, Alerts No Known Allergies Immunizations Given and Recorded Vaccine Date Status Refusal Reason [id number] 12y+ bivalent booster vax 07/16/22 Recorded SARS-CoV-2 [...] Date: 09/15/17 Stop Date: 09/29/17 Status: Ordered Fish Oil one capsule, By Mouth, Daily, 0 Refills, Maintenance, 09/15/17 13:06:41 EST Start Date: 09/15/17 Status: Ordered gabapentin 600 mg oral tablet 1 tablet = 600 mg, By Mouth, 3 times a day, # 90 tablet, 0 Refills, Maintenance, 11/20/22 11:44:00 EST, Tablet, [facility], Partial fill upon patient request if [...] 13:07:42 EST Start Date: 09/15/17 Status: Ordered Yuvafem 10 mcg vaginal tablet [...] Confirmed Active Obese class I Confirmed Active Patient Care team information Care Team Personnel Name: Shaina CLEMENTE, Ernie Cortez Position: S Outreach Member Role: PCP Address: Address: [address] [place] [id number]- Name: Dottie Alfred RN Position: S RN Member Role: Primary Care Nurse Name: Jessica Monroy RN Position: S RN Member Role: Primary Care Nurse Name: Maria Elena Waggoner RN, I Position: S RN Member Role: Primary Care Nurse Name: Vadim Sullivan RN Position: S RN Member Role: Primary Care Nurse Care Team Related Persons Name: CLAUDIA HINOJOSA Address: home [address] [place] [id number]
--- OUTSIDE RECORDS SUMMARY | 2024-02-03 07:38 | XMS_ITS | Continuity of Care Document ---
Author Organization [facility] Address [address] [place] [id number]- Care Team Providers Care Garbage Stoker Name Role Phone Shaina CLEMENTE, Ernie Cortez Primary Care Physi dom Encounter 11/21/22 - 12/17/22 [facility] [address] [place] [id number] Discharge Disposition: GOALS MET Allergies, Adverse Reactions, Alerts No Known Allergies Immunizations Given and Recorded Vaccine Date Status Refusal Reason [id number] 12y+ bivalent booster vax 07/16/22 Recorded SARS-CoV-2 [...] 0 Refills, Maintenance, 11/20/22 11:44:00 EST, Tablet, [facility], Partial fill upon patient request [...] Personnel Name: Shaina CLEMENTE, Ernie Cortez Position: [facility] Outreach Member Role: PCP Address: Address: [address] [place] [phone]- Name: Dottie Alfred RN Position: S RN Member Role: Primary Care Nurse Name: Jessica Monroy RN Position: S RN Member Role: Primary Care Nurse Name: Maria Elena Waggoner RN, I Position: S RN Member Role: Primary Care Nurse Name: Vadim Sullivan RN Position: [facility] RN Member Role: Primary Care Nurse Care Team Related Persons Name: CLAUDIA HINOJOSA Address: home [address] [place] [id number]
--- NOTE | 2024-02-03 08:15 | PHA.MEDREC ---
Pharmacy Consult ? Medication Reconciliation Pharmacy has completed the medication reconciliation. Reviewed med rec done by nursing
[2024-02-03] MEDS: Lactated Ringers 1,000 ML 100 ML IVCONT ×3 (08:32→22:12)
--- NOTE | 2024-02-03 09:44 | MHC.SHP ---
Pre-Procedural Eval Section A - 24 Hr Update-Section A only Date of Service: 02/03/24 The patient is an INPATIENT: No Changes since office visit: No Cold of Flu in the past 2 weeks, No New Medical Problems, No Changes in Medication and No Patient answered all questions The patient has been examined within 24 hours of the surgical procedure. The History & Physical has been completed within 30 days and I have reviewed it.: Yes Section B - Complete if H&P > 30 days Chief Complaint: right total knee - patella resurfacing Allergies: Allergies Allergy/AdvReac Type Severity Reaction Status Date / Time No Known Allergies Allergy Verified 01/27/24 10:28 Plan I have reviewed the history and physical and performed a pertinent physical examination on my patient. No changes have occurred unless specified. Time Spent With Patient Time: Total time managing care of this patient today ____ minutes.
--- NOTE | 2024-02-03 10:54 | P.BOP_ITS ---
Brief Operative Note Date of Service: 02/03/24 Pre-op diagnosis: Right knee PF OA Post-op diagnosis: same Procedure: Right knee PF arthroplasty Implants: [place] 32a cemented patella Surgeon: David Taylor MD Anesthesia: GLMA and regional Was an Technology Teacher used for this Procedure?: Yes Technology Teacher: Michelle Peguero Estimated blood loss (mL): 20 Tourniquet time (min): 40 Pathology: none sent Condition: stable Disposition: PACU
[2024-02-03] MEDS: HYDROmorphone HCl 0.5 MG/0.5 ML SYRINGE IVPUSH ×2 (12:48→13:12)
--- NOTE | 2024-02-03 14:17 | PC.NURSE ---
Ernestine from health clinician services assisted with admission process
--- NOTE | 2024-02-03 14:19 | P.CONHOSP_ITS ---
History of Present Illness Data of Consult Service Date: 02/03/24 Primary Care Provider: MD SHIRA Jules Reason for consult: Routine medical management This is a 58-year-old female with pertinent history of moderate persistent asthma, mood disorder, peripheral neuropathy, urinary incontinence, insomnia, gastroesophageal reflux disease, essential hypertension who underwent right knee PF arthroplasty by Dr. Taylor on 02/02. Hospital medicine team consulted for routine medical management. Patient postop doing well, denies any significant new complaints. Review of Systems 2 Review of Systems: Yes all other systems are reviewed and are negative Cardiovascular: Cardiovascular: Reports no additional cardiovascular complaints Respiratory: Respiratory: Reports no additional respiratory complaints Gastrointestinal: Gastrointestinal: Reports no additional gastrointestinal complaints Genitourinary: Genitourinary: Reports no additional female genitourinary complaints [facility] Medical History Low back pain Pre-diabetes Seasonal allergies GERD (gastroesophageal reflux disease) COVID-19 vaccine series completed Post-COVID syndrome COPD (chronic obstructive pulmonary disease) History of COVID-19 Arthritis Anxiety Depression Hesitancy of micturition Moderate persistent asthma Family History Mother Heart disease Sister HTN (hypertension) Sister HTN (hypertension) Diabetes Surgical History Hx of shoulder surgery History of carpal tunnel surgery of right wrist H/O colonoscopy History of total right knee replacement History of back surgery History of total left knee replacement (~06/2020) Social History Household Members: Spouse Housing: House Are you a primary primary care md to a significant other at home: No Do you presently have visiting nurse or other home services: No Alcohol intake: never Comment: in bathroom, aware of trip hazard Patient Tobacco Use Status: Former Tobacco user Quit Date: 1996 Tobacco use type: Cigarette Smoked in Last 30 Days: No Patient Interested in Nicotine Replacement: No Patient Given Instructions on How to Stop Smoking: No Second Hand Smoke Exposure: No Use of substances other than those prescribed or required for medical reasons: Yes Substance Use Type: Marijuana Substance Use Type Other:: marijuana smoke + edibles Substance Use Frequency: Daily Last Used Substance: Days (ago) Currently Displaying Signs/Symptoms of Drug Intoxication Withdrawal: No Any prior treatment program specific to substance use: No Have you been hit, kicked, punched, or otherwise hurt by someone within the past year? If so, by whom?: No Do you feel safe in your current relationship?: Yes Is there a partner from a previous relationship who is making you feel unsafe now?: No Are you made to feel afraid or neglected: No Are you DNR?: No Advance Directives: Yes Advance Directives Information Provided: No Advance Directives on File: Yes Advance Directives Date on File: 11/12/17 Do you have a plan to hurt others: No Plan Recently lost weight without trying: No Nutrition Risks: No Nutritional Risk Patient : No : No Poor oral hygiene: No Current occupational status: unemployed Current occupation: Right Handed Gender identity: Female Meds Allergies Allergy/AdvReac Type Severity Reaction Status Date / Time No Known Allergies Allergy Verified 01/27/24 10:28 Active Medications: Current Medications Acetaminophen (Acetaminophen 325 Mg Tablet) 650 mg PO Q6H PRN PRN Reason: Pain, Mild (Pain Scale 1-3) Albuterol Sulfate (Albuterol Sulfate (0.083%) 2.5 Mg/3 Ml Vial.Neb) 2.5 mg INHALE Q6H PRN PRN Reason: Shortness Of Breath Albuterol Sulfate (Albuterol Sulfate 90 Mcg 8 Gm Inhaler) 1 puff INHALE Q4H PRN PRN Reason: shortness of breath or wheezing Aspirin (Aspirin 325 Mg Tablet) 325 mg PO BID [facility] Celecoxib (Celecoxib 200 Mg Capsule) 200 mg PO BID [facility] Cyclobenzaprine HCl (Cyclobenzaprine Hcl 10 Mg Tablet) 10 mg PO DAILY [facility] Diphenhydramine HCl (Diphenhydramine Hcl 25 Mg Capsule) 25 mg PO BEDTIME PRN PRN Reason: Insomnia Escitalopram Oxalate (Escitalopram Oxalate 5 Mg Tablet) 5 mg PO DAILY [facility] Fluticasone/Vilanterol (Fluticasone/Vilanterol 200/25 Blst.W.Dev) 1 puff INHALE RDAILY [facility] Gabapentin (Gabapentin 600 Mg Tablet) 600 mg PO TID [facility] Hydrochlorothiazide (Hydrochlorothiazide 25 Mg Tablet) 25 mg PO DAILY [facility]; Protocol Hydromorphone HCl (Hydromorphone Hcl 0.5 Mg/0.5 Ml Syringe) 0.25 mg IVPUSH Q4H PRN; Protocol PRN Reason: Pain, Severe (Pain Scale 7-10) Lactated Ringer's (Lr) 1,000 mls @ 100 mls/hr IVCONT .Q10H [facility] Cefazolin Sodium/Dextrose (Ancef) 2 gm in 50 mls @ 100 mls/hr IV POSTOP ONE Stop: 02/03/24 16:29 Lidocaine (Lidocaine 4 % Patch Adh..Patch) 1 patch TRANSDERMA DAILY PRN PRN Reason: Pain, Moderate(Pain Scale 4-6) Montelukast Sodium (Montelukast Sodium 10 Mg Tablet) 10 mg PO BEDTIME [facility] Non-Formulary Medication (Nabumetone) 750 mg PO DAILY [facility] Omeprazole (Omeprazole 20 Mg Capsule.Dr) 20 mg PO DAILY@0630 [facility] Oxycodone HCl (Oxycodone Hcl Immed Release 5 Mg Tablet) 5 mg PO Q4H PRN PRN Reason: Pain, Moderate(Pain Scale 4-6) Oxycodone HCl (Oxycodone Hcl Er 10 Mg Tab.Er.12h) 10 mg PO BID [facility] Sodium Chloride (0.9 % Sodium Chloride Flush 3 Ml Syringe) 3 ml IVFLUSH QSHIFT [facility] Tamsulosin HCl (Tamsulosin Hcl 0.4 Mg Capsule) 0.4 mg PO DAILY@1700 [facility] Zolpidem Tartrate (Zolpidem Tartrate 5 Mg Tablet) 5 mg PO BEDTIME PRN PRN Reason: Insomnia Home Medications ?Medication ?Instructions ?Recorded ?Confirmed ?Last Taken ?Type acetaminophen 500 mg tablet 500 mg PO Q6-8H PRN headache 12/03/21 02/03/24 Unknown History diphenhydramine HCl 25 mg capsule 25 mg PO BEDTIME PRN Insomnia 12/03/21 01/27/24 Unknown History (Banophen) hydrochlorothiazide 25 mg tablet 25 mg PO DAILY 12/03/21 01/27/24 Unknown History montelukast 10 mg tablet 10 mg PO BEDTIME 12/03/21 01/27/24 Unknown History omeprazole 20 mg capsule,delayed 20 mg PO DAILY 12/03/21 01/27/24 02/03/24 History release zolpidem 10 mg tablet 10 mg PO BEDTIME PRN Insomnia 12/03/21 01/27/24 02/02/24 History albuterol sulfate 2.5 mg/3 mL 2.5 mg inhalation Q6-8H PRN 12/10/21 01/27/24 Unknown History (0.083 %) solution for nebulization Shortness Of Breath escitalopram oxalate 5 mg tablet 5 mg PO QAM 09/02/22 01/27/24 Unknown History lidocaine 5 % topical patch 1 - 2 patch topical Q12H PRN pain 09/02/22 01/27/24 Unknown History (Lidoderm) nabumetone 750 mg tablet 750 mg PO DAILY 09/02/22 01/27/24 Unknown History gabapentin 600 mg tablet 600 mg PO TID 12/05/22 01/27/24 Unknown History albuterol sulfate 90 mcg/actuation 1 puff inhalation Q4-6H PRN 11/02/23 01/27/24 Unknown History aerosol inhaler shortness of breath or wheezing cyclobenzaprine 10 mg tablet 10 mg PO DAILY 11/02/23 01/27/24 Unknown History fluticasone furoate 50 1 inh inhalation BID 11/02/23 01/20/24 Unknown History mcg/actuation blister powder for inhalation tramadol 50 mg tablet 50 mg PO Q8H PRN pain 11/02/23 01/27/24 Unknown History diclofenac sodium 50 mg 50 mg PO DAILY 01/20/24 01/27/24 01/27/24 History tablet,delayed release fluticasone 500 mcg-salmeterol 50 1 inh inhalation BID 01/20/24 01/27/24 Unknown History mcg/dose blistr powdr for inhalation (Advair Diskus) multivitamin 1 tab PO DAILY 01/20/24 01/27/24 Unknown History omega 3-qaw-gyo-fish oil 1,000 mg 1 cap PO DAILY 01/20/24 01/27/24 01/27/24 History (120 mg-180 mg) capsule (Fish Oil) tamsulosin 0.4 mg capsule 0.4 mg PO DAILY@1700 01/20/24 01/27/24 Unknown History Physical Exam 2 Vital Signs and Narrative: Vital Signs: Last Vital Signs Temp 97.1 F 02/03/24 13:31 Pulse 63 02/03/24 13:31 Resp 18 02/03/24 13:31 BP 146/84 H 02/03/24 13:31 Pulse Ox 96 02/03/24 13:31 O2 Del Method Room Air 02/03/24 13:31 O2 Flow Rate 2 02/03/24 13:17 BMI result Body Mass Index 28.3 Middle-aged female lying in bed in no distress Neck supple, no JVD Regular rate and rhythm, S1-S2 heard Regular breath sounds bilaterally, no wheezing or crackles appreciated Abdomen soft nontender, no guarding, no rigidity Patient is awake, alert and oriented to self, place, time and person ; no focal motor deficit Psych: Normal mood No pedal edema Results Labs 01/20/24 13:17 01/20/24 13:17 Labs: Laboratory Results - last 24 hr 02/03/24 07:56 Blood Type O Positive Antibody Screen NEGATIVE Imaging Radiologist's Impressions: Impressions Knee X-Ray 02/03/24 11:31 IMPRESSION: Satisfactory appearance of 3 component right knee replacement. No fracture or dislocation. Assessment and Plan (1) Essential hypertension: Status: Acute Plan This is a 58-year-old female with pertinent history of moderate persistent asthma, mood disorder, peripheral neuropathy, urinary incontinence, insomnia, gastroesophageal reflux disease, essential hypertension who underwent right knee PF arthroplasty by Dr. Taylor on 02/02. #. Postop day 0 right knee PF arthroplasty: Management up to Orthopedic surgery #. Essential hypertension: Continue hydrochlorothiazide #. Mood disorder: On Lexapro #. Urinary incontinence: On Flomax #. Insomnia: On zolpidem 10 mg p.r.n. #. Moderate asthma: No exacerbation during admission. Continue home inhalers #. Gastroesophageal reflux disease: On PPI Thank you for the consult. Will sign off.
[2024-02-03] MEDS: oxyCODONE HCl Immed Release 5 MG TABLET PO ×2 (14:23→23:34)
[2024-02-03] MEDS: Gabapentin 600 MG TABLET PO ×2 (14:23→19:52)
[2024-02-03] MEDS: Acetaminophen 325 MG TABLET 650 MG PO (14:24)
[2024-02-03] MEDS: Tamsulosin HCL 0.4 MG CAPSULE PO (16:18)
[2024-02-03] MEDS: ceFAZolin Sodium/Dextrose,Iso 2 GM/50 ML PIGGYBACK IV (16:18)
[2024-02-03] MEDS: HYDROmorphone HCl 0.5 MG/0.5 ML SYRINGE 0.25 MG IVPUSH ×2 (16:26→22:15)
[2024-02-03] MEDS: Celecoxib 200 MG CAPSULE PO (19:52)
[2024-02-03] MEDS: oxyCODONE HCl ER 10 MG TAB.ER.12H PO (19:52)
[2024-02-03] MEDS: Montelukast Sodium 10 MG TABLET PO (19:53)
[2024-02-03] MEDS: Zolpidem Tartrate 5 MG TABLET PO (22:15)
[2024-02-04 02:31] VITALS: BP 125/61; PULSE 55; RESP 16; TEMP 36.4; O2SAT 96
[2024-02-04] MEDS: HYDROmorphone HCl 0.5 MG/0.5 ML SYRINGE 0.25 MG IVPUSH ×2 (03:30→08:27)
[2024-02-04] MEDS: Omeprazole 20 MG CAPSULE.DR PO (06:07)
[2024-02-04 06:18] LABS: MANUAL DIFF FLAG NO
[2024-02-04 06:28] LABS: Basophils Percent Auto 0.2 % (0-2); Eosinophils Absolute Auto 0.1 X10*3/uL (0.0-0.4); Eosinophils Percent Auto 0.4 % (0-4); Hematocrit 32.4 % (37.0-47.0); Hemoglobin 10.5 g/dl (12.0-16.0); Imm Gran Abs Auto 0.06 X10*3/uL (0.00-0.03); Imm Gran Pct Auto 0.5 % (0.0-0.4); Lymphocytes Absolute Auto 2.1 X10*3/uL (1.2-4.9); Lymphocytes Percent Auto 18.1 % (20-40); Mean Corpuscular HGB Conc 32.4 g/dl (31.0-35.0); Mean Corpuscular Volume 86.4 fL (80.0-98.0); Mean Platelet Volume 10.4 fL (9.4-12.3); Monocytes Absolute Auto 0.8 X10*3/uL (0.1-1.2); Monocytes Percent Auto 6.5 % (2-11); Neutrophils Absolute Auto 8.8 x10*3/uL (2.0-8.3); Neutrophils Percent Auto 74.3 % (45-73); Platelet Count 276 X10*3/uL (160-400); Red Blood Count 3.75 X10*6/uL (4.20-5.50); Red Cell Distribution Width 13.6 % (11.0-16.0); White Blood Count 11.8 X10*3/uL (4.8-10.8)
[2024-02-04 06:37] LABS: Anion Gap 8 (12-20); Blood Urea Nitrogen 17 mg/dL (9-16); Calcium 8.4 mg/dL (8.4-10.2); Carbon Dioxide 29 mmol/L (22-29); Chloride 108 mmol/L (96-108); Estimated Glomerular Filt Rate > 60; Glucose Fasting 126 mg/dL (60-99); Potassium 3.8 mmol/L (3.3-5.1); Sodium 141 mmol/L (135-145)
[2024-02-04 07:08] VITALS: BP 126/58; PULSE 61; RESP 16; TEMP 36; O2SAT 95
[2024-02-04] MEDS: Lactated Ringers 1,000 ML 100 ML IVCONT (08:30)
[2024-02-04] MEDS: oxyCODONE HCl ER 10 MG TAB.ER.12H PO (08:31)
[2024-02-04] MEDS: Celecoxib 200 MG CAPSULE PO (08:31)
[2024-02-04] MEDS: Escitalopram Oxalate 5 MG TABLET PO (08:31)
[2024-02-04] MEDS: Gabapentin 600 MG TABLET PO (08:31)
[2024-02-04] MEDS: Cyclobenzaprine HCl 10 MG TABLET PO (08:31)
[2024-02-04] MEDS: hydroCHLOROthiazide 25 MG TABLET PO (08:31)
[2024-02-04] MEDS: Aspirin 325 MG TABLET PO (08:31)
[2024-02-04] MEDS: 0.9 % Sodium Chloride Flush 3 ML SYRINGE IVFLUSH (08:32)
[2024-02-04] MEDS: Fluticasone/Vilanterol 200/25 BLST.W.DEV 1 PUFF INHALE (08:44)
[2024-02-04 08:46] VITALS: PULSE 61; RESP 16; O2SAT 97
--- NOTE | 2024-02-04 09:26 | PM.DS ---
DS: Providers Provider Date of Service: 02/04/24 Date of admission: 02/03/24 07:35 Primary care physician: Ernie Merritt MD Consults: 02/03/24 13:31 Consult to Hospitalist Routine Comment: Consulting Provider: Hospitalist Reason For Exam: routine medical management DS: Diagnosis Discharge Diagnosis (1) Essential hypertension: Status: Acute DS: Summary Hospital Course Hospital Course: The patient underwent a successful Right total knee arthroplasty patella on 02/03/24, was transferred to PACU and then to the floor to recover. During their stay, their vitals were stable, afebrile . Labs were unremarkable, H/H 10.5/32.4 . POD 1 she was started on ASA 325mg tabs po bid for DVT ppx, they also received Physical Therapy services twice a day. Physical therapy should include gait training, ROM to tolerance and quad strength. He is WBAT. Prior to discharge, his dressing was changed, incision clean dry and intact, new Aquacel dressing applied. The Aquacel dressing should remain intact and dry at all times. Any concerns with the dressing, please contact orthopedic office. No showering. The plan is to be discharged home with vna services Time Attestation Discharge Coordination Time (in mins): 30 Quality: Safe Use of Opioids Does Pt have an Active Cancer Diagnosis on the Problem List?: No Quality: Stroke Does the patient have a stroke diagnosis?: No Physical Exam Vital Signs: Vital Signs: Last Vital Signs Temp 96.8 F 02/04/24 07:08 Pulse 61 02/04/24 08:46 Resp 16 02/04/24 08:46 BP 126/58 L 02/04/24 07:08 Pulse Ox 95 02/04/24 07:08 O2 Del Method Room Air 02/04/24 07:08 O2 Flow Rate 2 02/03/24 15:40 BMI result Body Mass Index 28.3 DS: Data Data Completed and Pending Pending studies at discharge: Pending at discharge 02/03/24 10:45 Surgical [PTH] Routine Labs on day of discharge: Laboratory Results - last 24 hr 02/04/24 05:46 WBC 11.8 H RBC 3.75 L Hgb 10.5 L Hct 32.4 L MCV 86.4 MCH 28.0 MCHC 32.4 RDW 13.6 Plt Count 276 MPV 10.4 Immature Gran % (Auto) 0.5 H Neut % (Auto) 74.3 H Lymph % (Auto) 18.1 L Angelina % (Auto) 6.5 Eos % (Auto) 0.4 Baso % (Auto) 0.2 Lymph # (Auto) 2.1 Angelina # (Auto) 0.8 Eos # (Auto) 0.1 Baso # (Auto) 0.0 Abs Immat Gran (auto) 0.06 H Absolute Neuts (auto) 8.8 H Absolute Nucleated RBC 0.000 Nucleated RBC % (auto) 0.0 Sodium 141 Potassium 3.8 Chloride 108 Carbon Dioxide 29 Anion Gap 8 L BUN 17 H Creatinine 0.68 Estim Creat Clear Calc 84.0 Estimated GFR > 60 Fasting Glucose 126 H Calcium 8.4 D Discharge Plan Discharge Anticipated Discharge Date/Time: 02/04/24 08:43 Patient Disposition: Home Health Service Discharge Diagnosis: revision rt tka patella Referrals: Michelle Peguero PA-C [Physician Palletiser Operator] - 2 Weeks (02/18/24 13:[address] [facility] Orth[facility] Surgeons Michelle Peguero PA-C) Discharge Medications: New celecoxib 200 mg Capsule 200 mg PO BID 30 Days Qty: 60 0RF acetaminophen 325 mg Tablet 650 mg PO Q6H PRN (Reason: Pain, Mild (Pain Scale 1-3)) 30 Days Qty: 240 0RF aspirin 325 mg Tablet 325 mg PO BID 42 Days Qty: 84 0RF oxycodone 5 mg Tablet 5 mg PO Q4H PRN (Reason: Pain, Moderate(Pain Scale 4-6)) 7 Days Qty: 42 0RF Rx Instructions: Partial Fill upon patient request. Continued fluticasone propion-salmeterol [Wixela Inhub] 500-50 mcg/dose blister with device 1 inh inhalation BID 30 Days Qty: 60 6RF albuterol sulfate 2.5 mg /3 mL (0.083 %) Solution For Nebulization 2.5 mg INHALATION Q6-8H PRN (Reason: Shortness Of Breath) albuterol sulfate 90 mcg/actuation HFA aerosol inhaler 1 puff inhalation Q4-6H PRN (Reason: shortness of breath or wheezing) fluticasone furoate 50 mcg/actuation Blister With Device 1 inh INHALATION BID cyclobenzaprine 10 mg Tablet 10 mg PO DAILY fluticasone propion-salmeterol [Advair Diskus] 500-50 mcg/dose Blister With Device 1 inh INHALATION BID tamsulosin 0.4 mg capsule 0.4 mg PO DAILY@1700 multivitamin Tablet 1 tab PO DAILY gabapentin 600 mg tablet 600 mg PO TID nabumetone 750 mg tablet 750 mg PO DAILY escitalopram oxalate 5 mg tablet 5 mg PO QAM lidocaine [Lidoderm] 5 % adhesive patch,medicated 1 - 2 patch topical Q12H PRN (Reason: pain) montelukast 10 mg tablet 10 mg PO BEDTIME diphenhydramine HCl [Banophen] 25 mg capsule 25 mg PO BEDTIME PRN (Reason: Insomnia) omeprazole 20 mg capsule,delayed release(DR/EC) 20 mg PO DAILY zolpidem 10 mg tablet 10 mg PO BEDTIME PRN (Reason: Insomnia) hydrochlorothiazide 25 mg tablet 25 mg PO DAILY (DME) walker Misc See Rx Instructions .ROUTE .MEDSUPPLY Qty: 1 0RF Rx Instructions: Folding front wheeled walker Discontinued tramadol 50 mg tablet 50 mg PO Q8H PRN (Reason: pain) diclofenac sodium 50 mg tablet,delayed release (DR/EC) 50 mg PO DAILY omega 3-lpf-nli-fish oil [Fish Oil] 1,000 mg (120 mg-180 mg) Capsule 1 cap PO DAILY acetaminophen 500 mg tablet 500 mg PO Q6-8H PRN (Reason: headache) Discharge Orders: Discharge Order (Routine); Ordered 02/04/24 Ordered By: Fatmata Whitehead Diet: Regular diet Activity on Discharge: Use cane or walker Stand Alone Forms: Patient Portal Discharge page Print Language: Kinyarwanda Care Plan Goals: Restore function of joint Health Concerns: none Plan of Treatment: Physical Therapy Pain management DVT prophylaxis Assessment: Physical Therapy for Total knee arthroplasty: WBAT, gait training, ROM 0-12, quad strength Limit stair climbing No showering, no tub bath-keep dressing clean, dry and intact No driving x6 weeks Continue Aspirin twice a day x 6 weeks Follow up with [facility] Orthopedics in 2 weeks:
--- NOTE | 2024-02-04 09:28 | P.F2F_ITS ---
Service Date Service Date: 02/04/24 Encounter Date of encounter: 02/04/24 Reasons for Services Signs and symptoms assessed: Weakness, poor balance, poor gait mechanics Reason for physical therapy: home safety and mobility, therapeutic exercises, restore joint function, gait/transfer training and ADL training Reason for occupational therapy: home safety and mobility, therapeutic exercises, restore joint function, gait/transfer training and ADL training Homebound: Leaving the home is medically contraindicated at this time without the asist of a device and/or another person due th the listed conditions above and below. Reason homebound: unsteady gait / fall risk, pain with ambulation, poor balance / fall risk and unable to drive Homebound supporting statement: Pt. is considered home bound due to recent surgery. Unable to drive, poor b alance, poor gait mechanics. Certification: Based on the above findings, I certify that this patient is confined to the home and needs intermittent [facility] care, physical therapy and/or speech therapy, or continues to need occupational therapy. The patient is under my care, and I have initiated the establishment of the plan of care. The patient will be followed by a physician who will periodically review the plan of care. Time Spent With Patient Time: Total time managing care of this patient today ____ minutes.
--- NOTE | 2024-02-04 10:50 | MHC.CM.PN ---
CM MET WITH PT WITH COMPUTER HELP DESK REPRESENTATIVE AT BEDSIDE. PT LIVES WITH SPOUSE AND IS INDEPENDET AT BASELINE. + HCP PCP DR. STEEEL DP: HOME WITH NEW [facility] ([facility] CHO[facility]) FOR PT/OT. [facility] REFERRAL SENT. PT HAS OWN RIDE HOME
[2024-02-04] MEDS: oxyCODONE HCl Immed Release 5 MG TABLET PO (11:01)
[2024-02-04] MEDS: Acetaminophen 325 MG TABLET 650 MG PO (11:01)
--- NOTE | 2024-02-04 11:44 | HO.POSTANES ---
Post Anesthesia Evaluation Post Anesthesia Evaluation Date of Service: 02/03/24 Vital Signs: Vital Signs Temp Pulse Resp BP Pulse Ox O2 Del Method 02/04/24 08:46 61 16 02/04/24 07:08 96.8 F 61 16 126/58 L 95 Room Air 02/04/24 02:31 97.5 F 55 16 125/61 96 Room Air Anesthesia: General Endotracheal-GETA Mental Status: Awake Pain Control: Satisfactory Nausea/Vomiting: None Hydration: Adequate Anesthesia-Related Issues: No Anes. Related Issues
--- NOTE | 2024-02-08 08:48 | W.PM.OPN ---
Operative Note Operative Note Date of Service: 02/03/24 Narrative: Date of Service: 02/03/24 Pre-op diagnosis: Right knee PF OA Post-op diagnosis: same Procedure: Right knee PF arthroplasty Implants: [place] 32a cemented patella Surgeon: David Taylor MD Anesthesia: GLMA and regional Was an Thread Winder Automatic used for this Procedure?: Yes Thread Winder Automatic: Michelle Peguero Estimated blood loss (mL): 20 Tourniquet time (min): 40 Pathology: none sent Condition: stable Disposition: PACU Procedure in detail: The patient was brought to the operating room and prepped and draped in standard sterile fashion. A time-out was called to identify proper site proper procedure proper surgeon and IV antibiotics were administered. 1 g of IV tranexamic acid was administered. I began by making a midline incision to the retinaculum and performed a medial parapatellar arthrotomy. The infrapatellar fat pad was incised with cautery wand and the patella was everted. I measured and, using an oscillating patellar blade, removed 1 cm from the undersurface of the patella and then trialed a 32a patellar button. The knee was taken through range of motion I was satisfied with the tracking. I mixed one bag of bone cement on the back table using 3rd gen cementation technique. I then cemented the patella and a clamp were used while the cement dried. Once the cement was hard on the back table all excess cement was removed and I took the knee through a range of motion. I was satisfied with the tracking. I then irrigated copiously. The knee was then closed with a running Quill suture, a 3 0 Vicryl and mika on the skin. Patient was then placed in sterile dressing and brought to recovery room in stable condition there were no known complications.
== END 2024-02-04 13:05 | disposition home health service (06) | DRG 326 ==
LOC: HO.SSSA 07:36 → HO.S3 11:58
PROVIDERS: Nurse Practitioner; Physician Assistant; Admitting Provider Orthopaedic Surgery; PCP Internal Medicine; Visit Provider Orthopaedic Surgery
PROC: 0SRC0J9 Replacement of Right Knee Joint with Synthetic Substitute, Cemented, Open Approach (ICD-10-PCS; CPT 27487; principal; 2024-02-03 09:40)
DX: M17.11 Unilateral primary osteoarthritis, right knee (principal); F39 Unspecified mood [affective] disorder; G62.9 Polyneuropathy, unspecified; G89.18 Other acute postprocedural pain; K21.9 Gastro-esophageal reflux disease without esophagitis; I10 Essential (primary) hypertension; R32 Unspecified urinary incontinence; G47.00 Insomnia, unspecified; J44.9 Chronic obstructive pulmonary disease, unspecified; J45.40 Moderate persistent asthma, uncomplicated; Z87.891 Personal history of nicotine dependence; Z79.51 Long term (current) use of inhaled steroids; Z79.899 Other long term (current) drug therapy
CPT/HCPCS: 36415; 73560; 80048; 85025; 85027; 86850; 86900; 86901; 87640; 87641; 88305; 88311; 93005; 94640; 97116; 97162; C1713; C1776; J0131; J0665; J0690; J1100; J1170; J2250; J2405; J2704; J3010; J7120

== ENCOUNTER → 2024-02-03 07:35 | Outpatient (BNV) | payer MEDICAID, SELFPAY | PROVIDERS: Admitting Provider Orthopaedic Surgery; PCP Internal Medicine; Visit Provider Orthopaedic Surgery | DX: M17.11 Unilateral primary osteoarthritis, right knee (principal) | CPT/HCPCS: 27438; 99238; G0180 ==

== ENCOUNTER → 2024-02-03 07:35 | Outpatient (BNV) | payer MEDICAID, SELFPAY | PROVIDERS: Admitting Provider Orthopaedic Surgery; PCP Internal Medicine; Visit Provider Student in an Organized Health Care Education/Training Program | DX: I10 Essential (primary) hypertension (principal) | CPT/HCPCS: 99222 ==

== ENCOUNTER 2024-02-11 15:04 | Outpatient (AMB) | payer MEDICAID, SELFPAY ==
--- NOTE | 2024-02-11 15:05 | MHC.OFFVIS ---
Intake Visit Reasons: po- RT TKA revision 02/03/24 NE Intake Note: Miguelina 58 yr old female presents today with her for a wound check for her S/P Right TKA revision from 02/03/24. States she was seen with her PCP and her doctor wanted her to be seen due to increase swelling and bruising. Allergies No Known Allergies Allergy (Verified 02/18/24 13:28) HPI HPI po- RT TKA revision 02/03/24 NE: Details: 58 yo female returns to the office today S/P Right TKA revision from 02/03/24 with NE. She was seen by her PCP who referred her to our office due to swelling and redness in the operative knee. She denies fever or chills. Denies recent fall or illnesses. [facility] Medical History Low back pain Pre-diabetes Seasonal allergies GERD (gastroesophageal reflux disease) COVID-19 vaccine series completed Post-COVID syndrome COPD (chronic obstructive pulmonary disease) History of COVID-19 Arthritis Anxiety Depression Hesitancy of micturition Moderate persistent asthma Surgical History Hx of shoulder surgery History of carpal tunnel surgery of right wrist H/O colonoscopy History of total right knee replacement History of back surgery History of total left knee replacement (~06/2020) Family History Mother Heart disease Sister HTN (hypertension) Sister HTN (hypertension) Diabetes Social History Household Members: Spouse Housing: House Are you a primary pharmacist critical care to a significant other at home: No Do you presently have visiting nurse or other home services: No Alcohol intake: never Comment: in bathroom, aware of trip hazard Patient Tobacco Use Status: Former Tobacco user Quit Date: 1996 Tobacco use type: Cigarette Second Hand Smoke Exposure: No Substance Use Type: Marijuana Advance Directives Date on File: 11/12/17 service: No Current occupational status: unemployed Current occupation: Right Handed Gender identity: Female Review of Systems Const All systems reviewed & are unremarkable except as noted in HPI and below Physical Exam Extrem Other: right knee incision clean dry and intact. No joint effusion, no pain with ROM. Calf supple non tender, nvi. Assessment & Plan Assessment & Plan (1) Status post total right knee replacement: Code(s): Z96.651 - Presence of right artificial knee joint Category: Surgical Plan: No evidence of infection or DVT. She will continue with PT and daily activities as tolerated. If she has questions or ocncerns she will contact our office otherise prn. Coding Level of Care Code Global (99860) Diagnoses Status post total right knee replacement Z96.651
== END 2024-02-11 15:07 | disposition home or self-care (01) ==
LOC: HO.HOS 15:04
PROVIDERS: PCP Internal Medicine; Visit Provider Physician Assistant
DX: Z96.651 Presence of right artificial knee joint (principal)
CPT/HCPCS: 99024

== ENCOUNTER → 2024-02-11 15:04 | Outpatient (BNVA) | payer MEDICAID, SELFPAY | PROVIDERS: PCP Internal Medicine; Visit Provider Physician Assistant | DX: Z47.1 Aftercare following joint replacement surgery (principal); Z96.651 Presence of right artificial knee joint | CPT/HCPCS: 99212 ==

== ENCOUNTER 2024-02-18 13:23 | Outpatient (AMB) | payer MEDICAID, SELFPAY ==
--- NOTE | 2024-02-18 13:26 | A.OFFVIS_ITS ---
Vital Signs 02/18/24 13:29 Height 5 ft 3 in Weight 163 lb BMI 28.9 Intake Visit Reasons: PO RT TKA revision 02/03/24 NE Intake Note: Miguelina is a 58 year old female presents today with her for a post op appointment S/P Right TKA revision 02/03/24 NE. Patient reports her knee feels better but having some swelling and pain. Allergies No Known Allergies Allergy (Verified 02/18/24 13:28) HPI HPI PO RT TKA revision 02/03/24 NE: Details: 58-year-old female, who is Khmer speaking, presents in the office today 15 days status post right knee patellofemoral arthroplasty, which was performed on 02/03/[address] Taylor. Patient reports her knee is feeling better. Confirms some pain and edema. Patient presents in the office accompanied by her . PFS Medical History Low back pain Pre-diabetes Seasonal allergies GERD (gastroesophageal reflux disease) COVID-19 vaccine series completed Post-COVID syndrome COPD (chronic obstructive pulmonary disease) History of COVID-19 Arthritis Anxiety Depression Hesitancy of micturition Moderate persistent asthma Surgical History Hx of shoulder surgery History of carpal tunnel surgery of right wrist H/O colonoscopy History of total right knee replacement History of back surgery History of total left knee replacement (~06/2020) Family History Mother Heart disease Sister HTN (hypertension) Sister HTN (hypertension) Diabetes Social History Household Members: Spouse Housing: House Are you a primary customer care team coach to a significant other at home: No Do you presently have visiting nurse or other home services: No Alcohol intake: never Comment: in bathroom, aware of trip hazard Patient Tobacco Use Status: Former Tobacco user Quit Date: 1996 Tobacco use type: Cigarette Second Hand Smoke Exposure: No Substance Use Type: Marijuana Advance Directives Date on File: 11/12/17 service: No Current occupational status: unemployed Current occupation: Right Handed Gender identity: Female Review of Systems Const All systems reviewed & are unremarkable except as noted in HPI and below Physical Exam Vital Signs: BMI result Body Mass Index 28.9 Const General: cooperative, healthy appearing and no acute distress Resp Effort & Inspection: normal respiratory effort and able to speak in complete sentences Cardio Rate: regular rate Peripheral pulses: Peripheral pulses 2+ throughout GI Palpation (GI): Soft to palpation Skin Lesions: no lesions Rashes: no rashes Extrem Other: Right knee: Incision site is clean, dry, and intact. [place] intact. No surrounding erythema or drainage. No signs of infection. ROM is 10-100 degrees. NVI. Assessment & Plan Assessment & Plan (1) Pain in knee region after replacement of knee joint: Code(s): M25.569 - Pain in unspecified knee; Z96.659 - Presence of unspecified artificial knee joint Category: Medical Plan Ms. Julien is a 58-year-old female, who is Khmer speaking, presents in the office today 15 days status post right knee patellofemoral arthroplasty, which was performed on 02/03/[address] Taylor. Patient reports her knee is feeling better. Confirms some pain and edema. Patient presents in the office accompanied by her . Rupesh were removed and steri-stripes were applied. She will attend outpatient PT, which a referral was placed today. Follow up will be in [address] Taylor, or sooner if needed. Patient Instructions: Scribed by Negra Mcmanus medical services assistant, for Michelle Peguero PA-C on 02/18/2024 at 1:29 pm, EST. Coding Level of Care Code Global (13617) Diagnoses Pain in knee region after replacement of knee joint M25.569; Z96.659
[2024-02-18 13:29] VITALS: BMI 28.9
== END 2024-02-18 14:04 | disposition home or self-care (01) ==
PROVIDERS: PCP Internal Medicine; Visit Provider Physician Assistant
DX: M25.569 Pain in unspecified knee (principal); Z96.659 Presence of unspecified artificial knee joint
CPT/HCPCS: 99024

== ENCOUNTER → 2024-02-18 13:23 | Outpatient (BNVA) | payer MEDICAID, SELFPAY | PROVIDERS: PCP Internal Medicine; Visit Provider Physician Assistant | DX: Z47.1 Aftercare following joint replacement surgery (principal); M25.569 Pain in unspecified knee; Z96.659 Presence of unspecified artificial knee joint | CPT/HCPCS: 99212 ==

== ENCOUNTER 2024-03-02 14:01 | Outpatient (AMB) | payer MEDICAID, SELFPAY ==
--- NOTE | 2024-03-02 14:04 | A.OFFVIS_ITS ---
Intake Visit Reasons: PO Right TKA 02/03/2024 NE (wound check) Intake Note: Miguelina a 58 year old female who presents today for a post operative right TKA on 02/03/24 NE. Patient reports redness, swelling and warm to the touch. States pain at the anterior aspect of knee. She was seen by PT yesterday who suggested patient be evaluated. Allergies No Known Allergies Allergy (Verified 03/02/24 15:49) HPI HPI PO Right TKA 02/03/2024 NE (wound check): Details: 58-year-old female who returns to the office today for post-op wound check s/p right TKA, 02/03/[address] Taylor. She was seen at physical therapy where she was suggested to return to our office. She states she has redness, swelling and warmth to touch around the incision site. She also c/o pain at the anterior aspect of her knee. She has no other concerns today. [facility] Medical History Low back pain Pre-diabetes Seasonal allergies GERD (gastroesophageal reflux disease) COVID-19 vaccine series completed Post-COVID syndrome COPD (chronic obstructive pulmonary disease) History of COVID-19 Arthritis Anxiety Depression Hesitancy of micturition Moderate persistent asthma Surgical History Hx of shoulder surgery History of carpal tunnel surgery of right wrist H/O colonoscopy History of total right knee replacement History of back surgery History of total left knee replacement (~06/2020) Family History Mother Heart disease Sister HTN (hypertension) Sister HTN (hypertension) Diabetes Social History Household Members: Spouse Housing: House Are you a primary career development coordinator to a significant other at home: No Do you presently have visiting nurse or other home services: No Alcohol intake: never Comment: in bathroom, aware of trip hazard Patient Tobacco Use Status: Former Tobacco user Quit Date: 1996 Tobacco use type: Cigarette Second Hand Smoke Exposure: No Substance Use Type: Marijuana Advance Directives Date on File: 11/12/17 service: No Current occupational status: unemployed Current occupation: Right Handed Gender identity: Female Review of Systems Const All systems reviewed & are unremarkable except as noted in HPI and below Physical Exam Extrem Other: Right knee: Incision well healed. She has some scant erythema along the incision line. She has trace effusion. Full ROM with no significant pain. Calf supple, nontender. NVI. Assessment & Plan Assessment & Plan (1) Status post total right knee replacement: Code(s): Z96.651 - Presence of right artificial knee joint Category: Surgical Plan It appears she may be having a reaction to suture therefore a prescription for Bactrim was sent to her pharmacy that she will take twice a day for 10 days. She will continue with daily activities as tolerated and see me back next Thursday for a follow-up. If she has worsening symptoms till that time, she will contact the office, otherwise follow-up as planned. Medications: New sulfamethoxazole-trimethoprim 800-160 mg (Bactrim DS) 1 tab PO BID 20 tabs 0RF suture abscess 10 days Patient Instructions: Scribed for Fatmata Whitehead PA-C, by Horacio Wyatt medical insurance collector, on 03/02/2024 at 2:15 PM EST.? I, Fatmata Whitehead PA-C, have personally reviewed and agree with the information entered by the scribe. Coding Level of Care Code Global (08441) Diagnoses Status post total right knee replacement Z96.651
== END 2024-03-02 14:41 | disposition home or self-care (01) ==
LOC: HO.HOS 14:01
PROVIDERS: PCP Internal Medicine; Visit Provider Physician Assistant
DX: Z96.651 Presence of right artificial knee joint (principal)
CPT/HCPCS: 99024

== ENCOUNTER → 2024-03-02 14:01 | Outpatient (BNVA) | payer MEDICAID, SELFPAY | PROVIDERS: PCP Internal Medicine; Visit Provider Physician Assistant | DX: Z96.651 Presence of right artificial knee joint (principal) | CPT/HCPCS: 99212 ==

== ENCOUNTER 2024-03-08 13:08 | Outpatient (AMB) | payer MEDICAID, SELFPAY ==
[2024-03-08 13:25] VITALS: BMI 28.9
--- NOTE | 2024-03-08 13:25 | MHC.OFFVIS ---
Vital Signs 03/08/24 13:25 Height 5 ft 3 in Weight 163 lb BMI 28.9 Intake Visit Reasons: PO Right TKA 02/03/2024 NE (wound check) Intake Note: Miguelina a 58 year old female who presents today for a post operative wound check right TKA on 02/03/24 NE. PAtient reports that she is having continued pain and swelling of the right knee. She is continuing her ABX prescribed Allergies No Known Allergies Allergy (Verified 03/02/24 15:49) HPI HPI PO Right TKA 02/03/2024 NE (wound check): Details: 58-year-old female who returns to the office today for a post-op wound check s/p right TKA, 02/03/[address] Taylor. She states the redness has resolved. She is taking her antibiotics as instructed. She has no other concerns today. [facility] Medical History Low back pain Pre-diabetes Seasonal allergies GERD (gastroesophageal reflux disease) COVID-19 vaccine series completed Post-COVID syndrome COPD (chronic obstructive pulmonary disease) History of COVID-19 Arthritis Anxiety Depression Hesitancy of micturition Moderate persistent asthma Surgical History Hx of shoulder surgery History of carpal tunnel surgery of right wrist H/O colonoscopy History of total right knee replacement History of back surgery History of total left knee replacement (~06/2020) Family History Mother Heart disease Sister HTN (hypertension) Sister HTN (hypertension) Diabetes Social History Household Members: Spouse Housing: House Are you a primary sub acute care nurse to a significant other at home: No Do you presently have visiting nurse or other home services: No Alcohol intake: never Comment: in bathroom, aware of trip hazard Patient Tobacco Use Status: Former Tobacco user Quit Date: 1996 Tobacco use type: Cigarette Second Hand Smoke Exposure: No Substance Use Type: Marijuana Advance Directives Date on File: 11/12/17 service: No Current occupational status: unemployed Current occupation: Right Handed Gender identity: Female Review of Systems Const All systems reviewed & are unremarkable except as noted in HPI and below Physical Exam Vital Signs: BMI result Body Mass Index 28.9 Extrem Other: Right knee: Incision well healed. She has a retained suture that is visible. No surrounding erythema. She has full ROM. Calf supple, nontender. NVI. Assessment & Plan Assessment & Plan (1) Status post total right knee replacement: Code(s): Z96.651 - Presence of right artificial knee joint Category: Surgical Plan Retained sutures were removed today. She will continue with daily activities as tolerated and continue her antibiotics until completed. She will see me back in 7-10 days for a wound check, sooner if needed. Patient Instructions: Scribed for Fatmata Whitehead PA-C, by Horacio Wyatt medical case manager, on 03/08/2024 at 1:45 PM EST.? I, Fatmata Whitehead PA-C, have personally reviewed and agree with the information entered by the scribe. Coding Level of Care Code Global (90451) Diagnoses Status post total right knee replacement Z96.651
== END 2024-03-08 15:07 | disposition home or self-care (01) ==
LOC: HO.HOS 13:08
PROVIDERS: PCP Internal Medicine; Visit Provider Physician Assistant
DX: Z96.651 Presence of right artificial knee joint (principal)
CPT/HCPCS: 99024

== ENCOUNTER → 2024-03-08 13:08 | Outpatient (BNVA) | payer MEDICAID, SELFPAY | PROVIDERS: PCP Internal Medicine; Visit Provider Physician Assistant | DX: Z47.1 Aftercare following joint replacement surgery (principal); Z96.651 Presence of right artificial knee joint | CPT/HCPCS: 99212 ==

== ENCOUNTER 2024-03-14 13:26 | Outpatient (AMB) | payer MEDICAID, SELFPAY ==
--- NOTE | 2024-03-14 13:27 | MHC.OFFVIS ---
Vital Signs 03/14/24 13:27 Height 5 ft 3 in Intake Visit Reasons: PO 6 week RT TKA revision 02/03/24 NE Intake Note: Miguelina a 58 year old female who presents today for a post operative appointment s/p right TKA on 02/03/24 NE. She is taking antibiotics for concerns of infection with redness and swelling at the incision site. She finished her ABX 2 days ago, but still notices some redness on the incision. She has some mild pain. Allergies No Known Allergies Allergy (Verified 03/14/24 13:29) HPI HPI PO 6 week RT TKA revision 02/03/24 NE: Details: Right knee doing well No complaints PFSH Medical History Essential hypertension Low back pain Pre-diabetes Seasonal allergies GERD (gastroesophageal reflux disease) COVID-19 vaccine series completed Post-COVID syndrome COPD (chronic obstructive pulmonary disease) History of COVID-19 Arthritis Anxiety Depression Hesitancy of micturition Moderate persistent asthma Surgical History Hx of shoulder surgery History of carpal tunnel surgery of right wrist H/O colonoscopy History of total right knee replacement History of back surgery History of total left knee replacement (~06/2020) Family History Mother Heart disease Sister HTN (hypertension) Sister HTN (hypertension) Diabetes Social History Household Members: Spouse Housing: House Are you a primary child care cook to a significant other at home: No Do you presently have visiting nurse or other home services: No Alcohol intake: never Comment: in bathroom, aware of trip hazard Patient Tobacco Use Status: Former Tobacco user Tobacco use type: Cigarette Second Hand Smoke Exposure: No Substance Use Type: Marijuana Advance Directives Date on File: 11/12/17 service: No Current occupational status: unemployed Current occupation: Right Handed Gender identity: Female Physical Exam Extrem Other: Full ROM Inc c/d/i Assessment & Plan Assessment & Plan (1) Status post total right knee replacement: Code(s): Z96.651 - Presence of right artificial knee joint Category: Surgical Plan: Doing well Continue strengthening and ROM F/u 6 weeks Coding Level of Care Code Global (82593) Diagnoses Status post total right knee replacement Z96.651
== END 2024-03-14 13:52 | disposition home or self-care (01) ==
PROVIDERS: PCP Internal Medicine; Visit Provider Orthopaedic Surgery
DX: Z96.651 Presence of right artificial knee joint (principal)
CPT/HCPCS: 99024

== ENCOUNTER → 2024-03-14 13:26 | Outpatient (BNVA) | payer MEDICAID, SELFPAY | PROVIDERS: PCP Internal Medicine; Visit Provider Orthopaedic Surgery | DX: Z96.651 Presence of right artificial knee joint (principal) | CPT/HCPCS: 99212 ==

== ENCOUNTER 2024-03-18 06:20 | Day surgery (SDC) | payer MEDICAID, SELFPAY ==
--- NOTE | 2023-11-03 09:48 | P.CONAN_ITS ---
HPI - Anesthesia Eval Consult details Narrative: 58yo F for Colonoscopy [facility] Active Problems Active Problems: All Active Problems (Updated 11/01/23 @ 00:00 by Background Daemon) Incomplete bladder emptying (Acute) Voiding dysfunction (Acute) Shoulder pain, left (Acute) Back pain (Acute) Slowing of urinary stream (Acute) SOB (shortness of breath) (Acute) Precordial chest pain (Acute) Encounter for annual routine gynecological examination (Acute) Dyspnea on exertion (Acute) Status post left knee replacement (Acute) Trigger finger, left index finger (Acute) Trigger finger, left middle finger (Acute) Environmental allergies (Acute) Rotator cuff impingement syndrome of right shoulder (Acute) COVID (Acute) Post-COVID syndrome (Acute) Hesitancy of micturition (Acute) Moderate persistent asthma (Acute) Past Medical History Medical History COVID-19 vaccine series completed Post-COVID syndrome COPD (chronic obstructive pulmonary disease) History of COVID-19 Arthritis Anxiety Depression Hesitancy of micturition Moderate persistent asthma Family History Family History Mother Heart disease Sister HTN (hypertension) Sister HTN (hypertension) Diabetes Family history of problems with anesthesia: No Surgical History Surgical History Hx of shoulder surgery History of carpal tunnel surgery of right wrist H/O colonoscopy History of total right knee replacement History of back surgery History of total left knee replacement (~06/2020) History of Problems with Anesthesia: No Social History Social History Household Members: Spouse Are you a primary child care associate to a significant other at home: No Do you presently have visiting nurse or other home services: No Alcohol intake: never Patient Tobacco Use Status: Former Tobacco user Quit Date: 1996 Tobacco use type: Cigarette Advance Directives Date on File: 11/12/17 Current occupational status: unemployed Current occupation: Right Handed Gender identity: Female Meds Allergies Allergy/AdvReac Type Severity Reaction Status Date / Time bethanechol Allergy Mild Rash Verified 06/18/23 15:17 Home Medications Medication Instructions Recorded Confirmed Last Taken Type acetaminophen 500 mg tablet 500 mg PO Q6-8H PRN headache 12/03/21 11/02/23 Unknown History diphenhydramine HCl 25 mg capsule 25 mg PO BEDTIME PRN Insomnia 12/03/21 11/02/23 Unknown History (Banophen) hydrochlorothiazide 25 mg tablet 25 mg PO DAILY 12/03/21 11/02/23 Unknown History montelukast 10 mg tablet 10 mg PO BEDTIME 12/03/21 11/02/23 Unknown History omeprazole 20 mg capsule,delayed 20 mg PO DAILY 12/03/21 11/02/23 Unknown History release zolpidem 10 mg tablet 10 mg PO BEDTIME PRN Insomnia 12/03/21 11/02/23 Unknown History albuterol sulfate 2.5 mg/3 mL 2.5 mg inhalation Q6-8H PRN 12/10/21 11/02/23 Unknown History (0.083 %) solution for nebulization Shortness Of Breath itqxoavhob-acgvdqo-bcxamsex 50 1 cap PO Q4-6H PRN Migraine 12/10/21 11/02/23 Unknown History mg-325 mg-40 mg capsule Headache escitalopram oxalate 5 mg tablet 5 mg PO QAM 09/02/22 11/02/23 Unknown History lidocaine 5 % topical patch 1 - 2 patch topical Q12H PRN pain 09/02/22 11/02/23 Unknown History (Lidoderm) nabumetone 750 mg tablet 750 mg PO DAILY 09/02/22 11/02/23 Unknown History gabapentin 600 mg tablet 600 mg PO DAILY 12/05/22 11/02/23 Unknown History albuterol sulfate 90 mcg/actuation 1 puff inhalation Q4-6H PRN 11/02/23 11/02/23 Unknown History aerosol inhaler shortness of breath or wheezing clonazepam 0.5 mg tablet mg 11/02/23 11/02/23 Unknown History cyclobenzaprine 10 mg tablet mg 11/02/23 Unknown History fluticasone furoate 50 1 inh inhalation BID 11/02/23 11/02/23 Unknown History mcg/actuation blister powder for inhalation tramadol 50 mg tablet 50 mg PO Q8H PRN pain 11/02/23 Unknown History Assessment and Plan Assessment Anesthesia Assessment: Chart Reviewed Final Anesthetic Review Family History of Problems with Anesthesia: No History of Problems with Anesthesia: No
--- NOTE | 2024-03-16 14:31 | HO.ANESPROP2 ---
Documented by User: Sara Zaldivar NP 03/16/24 14:32 HPI - Anesthesia Eval Consult details Narrative: 58yo F for Colonoscopy s/p TKA 01/2024 with WALDO BALLESTEROS Active Problems Active Problems: All Active Problems Status post total right knee replacement (Acute) Encounter for preoperative pulmonary examination (Acute) Varicose veins of right lower extremity with inflammation (Acute) Pain in knee region after replacement of knee joint (Acute) Shoulder pain (Acute) Incomplete bladder emptying (Acute) Voiding dysfunction (Acute) Shoulder pain, left (Acute) Back pain (Acute) Slowing of urinary stream (Acute) SOB (shortness of breath) (Acute) Precordial chest pain (Acute) Encounter for annual routine gynecological examination (Acute) Dyspnea on exertion (Acute) Post-COVID syndrome (Acute) COVID (Acute) Rotator cuff impingement syndrome of right shoulder (Acute) Environmental allergies (Acute) Trigger finger, left middle finger (Acute) Trigger finger, left index finger (Acute) Status post left knee replacement (Acute) History of total right knee replacement (Acute) Hesitancy of micturition (Acute) Moderate persistent asthma (Acute) Past Medical History Medical History Essential hypertension Low back pain Pre-diabetes Seasonal allergies GERD (gastroesophageal reflux disease) COVID-19 vaccine series completed Post-COVID syndrome COPD (chronic obstructive pulmonary disease) History of COVID-19 Arthritis Anxiety Depression Hesitancy of micturition Moderate persistent asthma Family History Family History Mother Heart disease Sister HTN (hypertension) Sister HTN (hypertension) Diabetes Family history of problems with anesthesia: No Surgical History Surgical History Hx of shoulder surgery History of carpal tunnel surgery of right wrist H/O colonoscopy History of total right knee replacement History of back surgery History of total left knee replacement (~06/2020) History of Problems with Anesthesia: No Social History Social History Household Members: Spouse Housing: House Are you a primary care services manager to a significant other at home: No Do you presently have visiting nurse or other home services: No Alcohol intake: never Comment: in bathroom, aware of trip hazard Patient Tobacco Use Status: Former Tobacco user Tobacco use type: Cigarette Second Hand Smoke Exposure: No Use of substances other than those prescribed or required for medical reasons: No Substance Use Type: Marijuana Are you DNR?: No Advance Directives: No Advance Directives Information Provided: Yes Advance Directives Date on File: 11/12/17 service: No Current occupational status: unemployed Current occupation: Right Handed Gender identity: Female Meds Allergies Allergy/AdvReac Type Severity Reaction Status Date / Time No Known Allergies Allergy Verified 03/14/24 13:29 Home Medications ?Medication ?Instructions ?Recorded ?Confirmed ?Last Taken ?Type diphenhydramine HCl 25 mg capsule 25 mg PO BEDTIME PRN Insomnia 12/03/21 01/27/24 Unknown History (Banophen) hydrochlorothiazide 25 mg tablet 25 mg PO DAILY 12/03/21 01/27/24 Unknown History montelukast 10 mg tablet 10 mg PO BEDTIME 12/03/21 01/27/24 Unknown History omeprazole 20 mg capsule,delayed 20 mg PO DAILY 12/03/21 01/27/24 02/03/24 History release zolpidem 10 mg tablet 10 mg PO BEDTIME PRN Insomnia 12/03/21 01/27/24 02/02/24 History albuterol sulfate 2.5 mg/3 mL 2.5 mg inhalation Q6-8H PRN 12/10/21 01/27/24 Unknown History (0.083 %) solution for nebulization Shortness Of Breath escitalopram oxalate 5 mg tablet 5 mg PO QAM 09/02/22 01/27/24 Unknown History lidocaine 5 % topical patch 1 - 2 patch topical Q12H PRN pain 09/02/22 01/27/24 Unknown History (Lidoderm) nabumetone 750 mg tablet 750 mg PO DAILY 09/02/22 01/27/24 Unknown History gabapentin 600 mg tablet 600 mg PO TID 12/05/22 01/27/24 03/18/24 History albuterol sulfate 90 mcg/actuation 1 puff inhalation Q4-6H PRN 11/02/23 01/27/24 Unknown History aerosol inhaler shortness of breath or wheezing cyclobenzaprine 10 mg tablet 10 mg PO DAILY 11/02/23 01/27/24 Unknown History fluticasone furoate 50 1 inh inhalation BID 11/02/23 01/20/24 Unknown History mcg/actuation blister powder for inhalation fluticasone 500 mcg-salmeterol 50 1 inh inhalation BID 01/20/24 01/27/24 Unknown History mcg/dose blistr powdr for inhalation (Advair Diskus) multivitamin 1 tab PO DAILY 01/20/24 01/27/24 Unknown History tamsulosin 0.4 mg capsule 0.4 mg PO DAILY@1700 01/20/24 01/27/24 Unknown History tramadol 50 mg tablet 50 mg PO Q8H PRN pain 03/18/24 03/18/24 03/18/24 History Exam Pertinent Lab Results Pertinent Lab Results: Lab Results 01/20/24 01/20/24 01/20/24 Range/Units 12:30 13:05 13:17 WBC 7.5 (4.8-10.8) X10*3/uL RBC 4.41 (4.20-5.50) X10*6/uL Hgb 12.3 (12.0-16.0) g/dl Hct 38.9 (37.0-47.0) % MCV 88.2 (80.0-98.0) fL MCH 27.9 (27.0-33.0) pg MCHC 31.6 (31.0-35.0) g/dl RDW 13.3 (11.0-16.0) % Plt Count 344 (160-400) X10*3/uL MPV 10.3 (9.4-12.3) fL Absolute Nucleated RBC 0.000 (0.0-0.012) X10*3/uL Nucleated RBC % (auto) 0.0 (0.0-0.2) /100WBC Sodium 143 (135-145) mmol/L Potassium 4.1 (3.3-5.1) mmol/L Chloride 105 (96-108) mmol/L Carbon Dioxide 29 (22-29) mmol/L Anion Gap 13 (12-20) BUN 25 H (9-16) mg/dL Creatinine 0.85 (0.5-1.4) mg/dL Estim Creat Clear Calc 67.2 Estimated GFR > 60 Random Glucose 99 (60-115) mg/dL Calcium 8.8 (8.4-10.2) mg/dL Nasal Screen MRSA (PCR) NEGATIVE (Negative) Nasal S. aureus Screen NEGATIVE (Negative) Nasal MRSA/S.aureus Interp SEE NOTE Blood Type O Positive Antibody Screen NEGATIVE Narrative Narrative: EKG 01/2024 Vent. Rate : 052 BPM Atrial Rate : 052 BPM P-R Int : 166 ms QRS Dur : 102 ms QT Int : 408 ms P-R-T Axes : 024 012 030 degrees QTc Int : 379 ms Sinus bradycardia Minimal voltage criteria for LVH, may be normal variant ( Ace product ) Nonspecific T wave abnormality Abnormal ECG When compared with ECG of 11-MAY-2021 13:42, No significant change was found NM cardiolite stress test 2021 Impression: 1. Myocardial perfusion imaging study shows likely normal myocardial perfusion 2. Gated LVEF is 59% 3. Transient ischemic dilatation not present EKG is nondiagnostic for ischemia Assessment and Plan Assessment Anesthesia Assessment: Chart Reviewed Final Anesthetic Review Family History of Problems with Anesthesia: No History of Problems with Anesthesia: No Documented by User: Mary Dow MD 03/18/24 07:47 PMFSH Past Medical History Medical History Essential hypertension Low back pain Pre-diabetes Seasonal allergies GERD (gastroesophageal reflux disease) COVID-19 vaccine series completed Post-COVID syndrome COPD (chronic obstructive pulmonary disease) History of COVID-19 Arthritis Anxiety Depression Hesitancy of micturition Moderate persistent asthma Family History Family History Mother Heart disease Sister HTN (hypertension) Sister HTN (hypertension) Diabetes Surgical History Surgical History Hx of shoulder surgery History of carpal tunnel surgery of right wrist H/O colonoscopy History of total right knee replacement History of back surgery History of total left knee replacement (~06/2020) Social History Social History Household Members: Spouse Housing: House Are you a primary care services manager to a significant other at home: No Do you presently have visiting nurse or other home services: No Alcohol intake: never Comment: in bathroom, aware of trip hazard Patient Tobacco Use Status: Former Tobacco user Tobacco use type: Cigarette Second Hand Smoke Exposure: No Use of substances other than those prescribed or required for medical reasons: No Substance Use Type: Marijuana Are you DNR?: No Advance Directives: No Advance Directives Information Provided: Yes Advance Directives Date on File: 11/12/17 service: No Current occupational status: unemployed Current occupation: Right Handed Gender identity: Female Meds Allergies Allergy/AdvReac Type Severity Reaction Status Date / Time No Known Allergies Allergy Verified 03/14/24 13:29 Home Medications ?Medication ?Instructions ?Recorded ?Confirmed ?Last Taken ?Type diphenhydramine HCl 25 mg capsule 25 mg PO BEDTIME PRN Insomnia 12/03/21 01/27/24 Unknown History (Banophen) hydrochlorothiazide 25 mg tablet 25 mg PO DAILY 12/03/21 01/27/24 Unknown History montelukast 10 mg tablet 10 mg PO BEDTIME 12/03/21 01/27/24 Unknown History omeprazole 20 mg capsule,delayed 20 mg PO DAILY 12/03/21 01/27/24 02/03/24 History release zolpidem 10 mg tablet 10 mg PO BEDTIME PRN Insomnia 12/03/21 01/27/24 02/02/24 History albuterol sulfate 2.5 mg/3 mL 2.5 mg inhalation Q6-8H PRN 12/10/21 01/27/24 Unknown History (0.083 %) solution for nebulization Shortness Of Breath escitalopram oxalate 5 mg tablet 5 mg PO QAM 09/02/22 01/27/24 Unknown History lidocaine 5 % topical patch 1 - 2 patch topical Q12H PRN pain 09/02/22 01/27/24 Unknown History (Lidoderm) nabumetone 750 mg tablet 750 mg PO DAILY 09/02/22 01/27/24 Unknown History gabapentin 600 mg tablet 600 mg PO TID 12/05/22 01/27/24 03/18/24 History albuterol sulfate 90 mcg/actuation 1 puff inhalation Q4-6H PRN 11/02/23 01/27/24 Unknown History aerosol inhaler shortness of breath or wheezing cyclobenzaprine 10 mg tablet 10 mg PO DAILY 11/02/23 01/27/24 Unknown History fluticasone furoate 50 1 inh inhalation BID 11/02/23 01/20/24 Unknown History mcg/actuation blister powder for inhalation fluticasone 500 mcg-salmeterol 50 1 inh inhalation BID 01/20/24 01/27/24 Unknown History mcg/dose blistr powdr for inhalation (Advair Diskus) multivitamin 1 tab PO DAILY 01/20/24 01/27/24 Unknown History tamsulosin 0.4 mg capsule 0.4 mg PO DAILY@1700 01/20/24 01/27/24 Unknown History tramadol 50 mg tablet 50 mg PO Q8H PRN pain 03/18/24 03/18/24 03/18/24 History Exam Airway Mallampati Class: II TM Dist: >3cm Neck ROM: Full Heart: rrr Lungs: cta Assessment and Plan Assessment Anesthesia Assessment: Anesthesia Plan Discussed Final Anesthetic Review NPO: Yes ASA Class: III Final Preanesthetic Review: No Changes in Pt Med Stat, Meds/Allgs Chart Reviewed, Consent Obtained/Reviewed and Anes Risks/Benef Reviewed Patient Risk: Intermediate Procedure Risk: Low Anesthetic Plan Anesthetic Plan: MAC: Disposition: Standard PACU
[2024-03-18 06:44] VITALS: BMI 28.4
[2024-03-18 06:46] VITALS: BP 135/70; PULSE 54; RESP 16; TEMP 36.4; O2SAT 97
[2024-03-18] MEDS: Lactated Ringers 1,000 ML 100 ML IVCONT (06:58)
--- NOTE | 2024-03-18 08:28 | PM.OP ---
Brief Operative Note Date of Service: 03/18/24 Pre-op diagnosis: Screening Post-op diagnosis: other (Polyp) Procedure: Colonoscopy to the cecum and TI with bx/removal of polyp Surgeon: Rodrick Millan MD Anesthesia: MAC Was an Research Methods Instructor used for this Procedure?: No Estimated blood loss (mL): 2.0 Pathology: other (A. Cecal polyp) Condition: stable Disposition: PACU
[2024-03-18 08:29] VITALS: BP 97/56; PULSE 56; RESP 15; TEMP 36.7; O2SAT 98
--- NOTE | 2024-03-18 09:27 | OP_ITS ---
DATE OF SERVICE: 03/18/2024 SURGEON: Rodrick Millan MD INDICATIONS: The patient presents for evaluation of colorectal cancer screening. Full consent has been obtained from her for this, including risks of bleeding and perforation. PREOPERATIVE DIAGNOSIS: Colorectal cancer screening. POSTOPERATIVE DIAGNOSIS: PROCEDURE PERFORMED: Colonoscopy to the cecum and terminal ileum with biopsy and removal of polyp. ESTIMATED BLOOD LOSS: COMPLICATIONS: ANESTHESIA: Monitored anesthesia care. ASSISTANTS: SPECIMENS: POSTOPERATIVE DIAGNOSES: Colorectal cancer screening, small colon polyp, diverticulosis, and internal hemorrhoids. DESCRIPTION OF PROCEDURE: The patient was placed in the left lateral decubitus position. The digital rectal exam revealed no abnormalities. The Olympus video pediatric colonoscope was then entered into the rectum and advanced easily to the cecum. Once in the cecum, I did identify cecal pouch with appendiceal orifice and a normal-appearing ileocecal valve. The entire cecum was well visualized and appeared normal other than a 3 or 4 mm polyp, which was biopsied and completely removed with the cold biopsy forceps. The terminal ileum was cannulated and appeared normal. The scope was withdrawn back in the colon. The remainder of the cecum appeared normal. Scope was slowly withdrawn assessing all mucosal surfaces carefully. Preparation was excellent. I did not visualize any other polyps, colitis, nor angiodysplasias. There was a mild amount of sigmoid diverticulosis. In the rectum, scope was retroflexed, visualizing internal hemorrhoids, but no other pathology. The rectal mucosa appeared normal. The scope was straightened and withdrawn from the patient. She tolerated the procedure well and was returned to the recovery area in stable condition. IMPRESSION: 1. Small colon polyp. 2. Diverticulosis. 3. Internal hemorrhoids. PLAN: The results of the biopsies will be checked. If this is a tubular adenoma, I would recommend a followup colonoscopy in 5 years. If it is only hyperplastic, I would recommend a followup colonoscopy in 10 years. She will, otherwise, see me on a p.r.n. basis. MD YOHANA Pinzon/MARIBEL / [id number]
--- NOTE | 2024-03-18 11:47 | PC.NURSE ---
24hr update documented on paper chart.
== END 2024-03-18 09:03 | disposition home or self-care (01) ==
PROVIDERS: PCP Internal Medicine; Visit Provider Internal Medicine
PROC: 0DJD8ZZ Inspection of Lower Intestinal Tract, Via Natural or Artificial Opening Endoscopic (ICD-10-PCS; CPT 45378; principal; 2024-03-18 07:30)
DX: Z12.11 Encounter for screening for malignant neoplasm of colon (principal); D12.0 Benign neoplasm of cecum; K57.30 Diverticulosis of large intestine without perforation or abscess without bleeding; K64.8 Other hemorrhoids; I10 Essential (primary) hypertension; J45.909 Unspecified asthma, uncomplicated; Z79.899 Other long term (current) drug therapy; Z01.419 Encounter for gynecological examination (general) (routine) without abnormal findings
CPT/HCPCS: 45380; 88305; 99396; J2704

== ENCOUNTER 2024-03-22 16:00 | Outpatient (RCR) | payer MEDICAID, SELFPAY ==
--- NOTE | 2024-02-18 14:48 | MHC.PT.EP ---
[facility] [place] [facility] [place] [facility] [place] Office [address] Kevin Womack [address] [phone] F: [phone] F: [phone] F: [phone] F: [phone] Physical Therapy Plan of Care Date of Evaluation: 02/17/24 Date of Surgery: 02/03/24 Diagnosis: Pain in unspecified knee Presence of unspecified artificial knee joint s/p patella resurfacing 02/03/24 Assessment: Pt is a pleasant 58yo F who is s/p right patella resurfacing with Dr. Taylor on 02/03/24. She presents to PT with expected impairments in pain, decreased ROM, decreased quad strength, decreased balance/proprioception, and impaired gait. She is limited functionally by sitting, prolonged standing, walking, stair navigation, bending, and sleeping. She is an excellent candidate for skilled PT in order to address current impairments to facilitate return to PLOF. She is recommended to be seen 2x/week for 4 weeks and will be reassessed at that time Frequency and Duration: The patient will be seen 2x/week for 4 weeks Short Term Goals: Pt will be I with HEP to promote self management of symptoms Pt will improve R knee flexion by at least 10 degrees Senior Care Goals: Pt will achieve full ROM and strength all planes of right knee to assist with standing and walking Pt will ascend/descend 1 flight of stairs with reciprocal pattern safely Pt will demonstrate improvements in function as evidenced by statistically significant improvement in LEFI outcome measure Treatment Plan: Modalities to reduce pain, spasms and effusion. Manual therapy to restore motion and function. Therapeutic exercise to improve strength and flexibility. Neuromuscular re-education for posture and balance. Therapeutic activities to return to functional activities of daily living. Electronically signed by: Agnieszka Kraus, PT, DPT Please sign and return to therapist. Thank you for your referral.
--- NOTE | 2024-03-23 16:47 | MHC.PT.DC ---
[facility] [place] Office [place] Office [place] Office [address] Kevin Womack [address] [phone] F: [phone] F: [phone] F: [phone] F: [phone] Physical Therapy Discharge Report Diagnosis: Pain in unspecified knee Presence of unspecified artificial knee joint s/p patella resurfacing 02/03/24 Date of Surgery: 02/03/24 Date of Evaluation: 02/17/24 Date of Discharge: 03/23/24 Treatments to Date: 9 Cancellations to Date: No Shows to Date: Discharge Status: Achieved Goals Improved Function Independent with HEP Discharge Summary: Pt has made excellent progress since SOC. She has achieved ROM 110 degrees right knee flexion. Her incision is healed well with no redness or swelling noted. She has demonstrated improvements in strength and ambulates with steady gait. She is independent with HEP. She is being D/C from skilled PT. Provided pt with printed, updated copy of HEP. Pt reports no further questions or concerns for PT at time of D/C Electronically signed by: Agnieszka Kraus, PT, DPT Please sign and return to therapist. Thank you for your referral.
== END 2024-03-23 16:47 | disposition home or self-care (01) ==
LOC: HO.PT 16:00
PROVIDERS: PCP Internal Medicine; Visit Provider Physician Assistant
DX: T84.84XA Pain due to internal orthopedic prosthetic devices, implants and grafts, initial encounter (principal); Z96.651 Presence of right artificial knee joint
CPT/HCPCS: 97110; 97112; 97162

== ENCOUNTER 2024-04-01 17:05 | Outpatient (REF) | payer MEDICAID, SELFPAY ==
[2024-04-01 17:20] LABS: Appearance Urine Turbid; Color Urine Yellow; Glucose Urine UA Negative (Negative); Leukocyte Esterase Urine Large (3+) (Negative); Nitrite Urine Negative (Negative); PH 5.5 (5.0-9.0); UMIC TRIGGER UACC YES; Urine Blood Large (3+) (Negative); Urine Ketones Trace mg/dL (Negative); Urine Protein 30 (1+) mg/dL (Neg-Trace)
[2024-04-01 17:40] LABS: Bacteria Urine None Seen (None Seen); RBC Urine >20 /HPF (0-2); Squamous Epithelial Cell Urine 0-2 /HPF (0-2); UACC Culture Trigger YES; WBC Urine >50 /HPF (0-5)
== END 2024-04-01 17:06 | disposition home or self-care (01) ==
LOC: HO.HHCLNP 17:05
PROVIDERS: Visit Provider Student in an Organized Health Care Education/Training Program
DX: R30.9 Painful micturition, unspecified (principal)
CPT/HCPCS: 81001; 87086; 87088; 87186

== ENCOUNTER 2024-04-04 13:38 | Outpatient (AMB) | payer MEDICAID, SELFPAY ==
--- NOTE | 2024-04-04 13:45 | A.OFFVIS_ITS ---
Intake Visit Reasons: f/u s/p US 01/05/24 Intake Note: Patient presents for [facility] follow up. Patient states she is getting leg cramps , but no pain or swelling. She attempted to wear compression socks but said they were too tight. Allergies No Known Allergies Allergy (Verified 04/04/24 13:47) HPI HPI f/u s/p 01/05/24: Details: Very pleasant 58-year-old female presents for follow-up evaluation regarding varicose veins. She has a cluster of varicosities in the right calf more so in the posterior aspect which have been a source of pain and discomfort for her. They occasionally swell and actually on occasion have even become phlebitic. She now presents for follow-up with venous insufficiency testing. [facility] Medical History Essential hypertension Low back pain Pre-diabetes Seasonal allergies GERD (gastroesophageal reflux disease) COVID-19 vaccine series completed Post-COVID syndrome COPD (chronic obstructive pulmonary disease) History of COVID-19 Arthritis Anxiety Depression Hesitancy of micturition Moderate persistent asthma Surgical History History of right knee joint replacement Hx of shoulder surgery History of carpal tunnel surgery of right wrist H/O colonoscopy History of total right knee replacement History of back surgery History of total left knee replacement (~06/2020) Family History Mother Heart disease Sister HTN (hypertension) Sister HTN (hypertension) Diabetes Maternal Grandmother Cervical cancer Social History Household Members: Spouse Housing: House Are you a primary md do resident urgent care to a significant other at home: No Do you presently have visiting nurse or other home services: No Alcohol intake: never Comment: in bathroom, aware of trip hazard Patient Tobacco Use Status: Former Tobacco user Tobacco use type: Cigarette Second Hand Smoke Exposure: No Substance Use Type: Marijuana Advance Directives Date on File: 11/12/17 service: No Current occupational status: unemployed Current occupation: Right Handed Gender identity: Female Review of Systems Const Reports as per HPI ENT Reports no additional complaints Card Denies chest pain, Denies chest pain at rest and Denies chest pain with activity Resp Denies chest congestion and Denies cough GI Reports no additional complaints Musc Details: pain over varicosities, aching of lower extremities, swelling, cramping, heavin ess and tiredness, itching Denies abnormal gait Skin/Breast Reports pruritus and Denies wounds Neuro Reports no additional complaints and Denies abnormal gait Psych Denies no additional complaints Physical Exam Const General: cooperative, healthy appearing and comfortable Orientation/consciousness: oriented to person, oriented to place and oriented to time Neck Carotids: no bruits Chest Chest palpation & inspection: normal inspection of the chest and normal palpation of entire chest wall Resp Effort & Inspection: normal respiratory effort and able to speak in complete sentences Cardio Rate: regular rate Heart sounds: S1 normal heart sound present and S2 normal heart sound present Peripheral pulses: Peripheral pulses 2+ throughout GI Inspection: Yes normal to inspection Skin Other: +2 edema, large rope-like varicosities greater than 4 mm right calf CEAP Classification C4 - skin color changes Ep - Etiology Primary As - superficial veins P - reflux General skin exam: dry skin Neuro General: oriented to person, oriented to place and oriented to time Extrem Right lower extremity: full ROM, normal capillary refill and edema Left lower extremity: full ROM, normal capillary refill and edema Psych Mental Status: mental status grossly normal Results Reviewed Results Reviewed: Brief summary of venous insufficiency testing is as follows: right great saphenous vein: negative right small saphenous vein: negative right accessory vein: none present left great saphenous vein: negative left small saphenous vein: negative left accessory vein: none present Please note there is no evidence of any venous aneurysms or significant tortuosity Assessment & Plan Assessment & Plan (1) Varicose veins of right lower extremity with inflammation: Code(s): I83.11 - Varicose veins of right lower extremity with inflammation Category: Medical Plan: This patient has varicose veins with inflammation. They continue to be a source of discomfort for the patient. The patient has tried conservative treatment with compression, leg elevation and exercise program for over 3 months time. They have been compliant with all treatment. This has provided minimal relief for the patient. I do not anticipate this course of treatment will alter the underlying etiology. The patient has been scheduled for lower extremity venous treatment inclusive of --- right leg microphlebectomy. Risks, benefits, and complications of this procedure has been discussed in detail with the patient including but not limited to bleeding, infection, and the development of a DVT. The patient has demonstrated a clear understanding and has consented. We will schedule the patient as soon as possible. Thank you for allowing us to participate in this patient's care. If there are any questions or concerns please do not hesitate to contact us. Coding Level of Care Code Est Pt Level 4 (09008) Diagnoses Varicose veins of right lower extremity with inflammation I83.11
== END 2024-04-04 14:03 | disposition home or self-care (01) ==
PROVIDERS: PCP Internal Medicine; Visit Provider Surgery Vascular Surgery
DX: I83.11 Varicose veins of right lower extremity with inflammation (principal)
CPT/HCPCS: 99214

== ENCOUNTER → 2024-04-04 13:38 | Outpatient (BNVA) | payer MEDICAID, SELFPAY | PROVIDERS: PCP Internal Medicine; Visit Provider Surgery Vascular Surgery | DX: I83.11 Varicose veins of right lower extremity with inflammation (principal) | CPT/HCPCS: 99212 ==

== ENCOUNTER 2024-04-29 10:57 | Outpatient (REF) | payer MEDICAID, SELFPAY ==
--- NOTE | ~2024-04-29 | US_ITS ---
EXAMINATION: US RETROPERITONEAL COMPLETE (RENAL) CLINICAL INFORMATION: Pain with urination. COMPARISON: CT chest November 01, 2021 TECHNIQUE: Real-time imaging of the kidneys and bladder. FINDINGS: RIGHT KIDNEY: 11.2 x 5.2 x 5.3 cm (SAG x AP x TRV). The kidney is normal in size, contour, and echogenicity. Renal cortical thickness is normal. No calculi or focal parenchymal lesions. No hydronephrosis. LEFT KIDNEY: 10.5 x 5.0 x 4.0 cm (SAG x AP x TRV). The kidney is normal in size and echogenicity. Renal cortical thickness is normal. No renal calculi or hydronephrosis. BLADDER: Well distended and normal. Bilateral ureteral jets are demonstrated. Prevoid bladder volume is 189 mL. Postvoid bladder volume is 7.7 mL. Splenule noted adjacent to the left kidney measuring 1.4 x 1.3 x 1.1 cm, similar to prior chest CT. US/US retroperitoneal comp IMPRESSION: No nephrolithiasis.
== END 2024-04-29 10:58 | disposition home or self-care (01) ==
LOC: HO.US 10:57
PROVIDERS: PCP Internal Medicine; Visit Provider Student in an Organized Health Care Education/Training Program
DX: R30.0 Dysuria (principal); R31.9 Hematuria, unspecified
CPT/HCPCS: 76770

== ENCOUNTER 2024-05-02 10:47 | Outpatient (AMB) | payer MEDICAID, SELFPAY ==
--- NOTE | 2024-05-02 11:04 | MHC.OFFVIS ---
Vital Signs 05/02/24 11:11 Height 5 ft 3 in Weight 159 lb BMI 28.2 Intake Visit Reasons: PO 6 week RT TKA revision 02/03/24 NE Intake Note: Miguelina a 59 year old female who presents today with her spouse for a post operative visit s/p right TKA revision on 02/03/24. Patient reports she is doing well, states her pain has been tolerable. She has no concerns today. Allergies No Known Allergies Allergy (Verified 05/02/24 11:11) HPI HPI PO 6 week RT TKA revision 02/03/24 NE: Details: Miguelina is doing well with no complaints She is walking well [facility] Medical History Essential hypertension Low back pain Pre-diabetes Seasonal allergies GERD (gastroesophageal reflux disease) COVID-19 vaccine series completed Post-COVID syndrome COPD (chronic obstructive pulmonary disease) History of COVID-19 Arthritis Anxiety Depression Hesitancy of micturition Moderate persistent asthma Surgical History History of right knee joint replacement Hx of shoulder surgery History of carpal tunnel surgery of right wrist H/O colonoscopy History of total right knee replacement History of back surgery History of total left knee replacement (~06/2020) Family History Mother Heart disease Sister HTN (hypertension) Sister HTN (hypertension) Diabetes Maternal Grandmother Cervical cancer Social History Household Members: Spouse Housing: House Are you a primary childcare attendant to a significant other at home: No Do you presently have visiting nurse or other home services: No Alcohol intake: never Comment: in bathroom, aware of trip hazard Patient Tobacco Use Status: Former Tobacco user Tobacco use type: Cigarette Second Hand Smoke Exposure: No Substance Use Type: Marijuana Advance Directives Date on File: 11/12/17 service: No Current occupational status: unemployed Current occupation: Right Handed Gender identity: Female Physical Exam Vital Signs: BMI result Body Mass Index 28.2 Extrem Other: full ROM right knee incision c/d/i No effusion Assessment & Plan Assessment & Plan (1) Pain in knee region after replacement of knee joint: Code(s): M25.569 - Pain in unspecified knee; Z96.659 - Presence of unspecified artificial knee joint Category: Medical Plan: s/p PFA in setting of prior unresurfeced patella. She is doing well. May follow up as needed. Coding Level of Care Code Global (90143) Diagnoses Pain in knee region after replacement of knee joint M25.569; Z96.659
[2024-05-02 11:11] VITALS: BMI 28.2
== END 2024-05-02 11:29 | disposition home or self-care (01) ==
PROVIDERS: PCP Internal Medicine; Visit Provider Orthopaedic Surgery
DX: M25.569 Pain in unspecified knee (principal); Z96.659 Presence of unspecified artificial knee joint
CPT/HCPCS: 99024

== ENCOUNTER → 2024-05-02 10:47 | Outpatient (BNVA) | payer MEDICAID, SELFPAY | PROVIDERS: PCP Internal Medicine; Visit Provider Orthopaedic Surgery | DX: Z47.1 Aftercare following joint replacement surgery (principal); M25.561 Pain in right knee; Z96.659 Presence of unspecified artificial knee joint | CPT/HCPCS: 99212 ==

== ENCOUNTER 2024-06-07 14:14 | Outpatient (REF) | payer MEDICAID, SELFPAY ==
--- NOTE | ~2024-06-07 | XR_ITS ---
EXAMINATION: XR PELVIS CLINICAL INFORMATION: Initial pain status post fall. Coccygeal pain. COMPARISON: X-ray of the sacrum and coccyx October 2023 TECHNIQUE: AP view of the pelvis. FINDINGS: No fracture. Hip joint spaces are maintained. Alignment is anatomic. Sacroiliac joints and pubic symphysis are normal. No abnormal soft tissue calcifications. Incidental note made of postsurgical changes in the partially visualized lumbar sacral spine. XR/XR pelvis 1-2V IMPRESSION: No acute osseous abnormalities of the pelvis. Electronically signed by: Ran Still MD 06/28/2024 07:17 AM EDT
== END 2024-06-07 14:15 | disposition home or self-care (01) ==
LOC: HO.HHCX 14:14
PROVIDERS: Visit Provider Internal Medicine
DX: M25.551 Pain in right hip (principal)
CPT/HCPCS: 72170

== ENCOUNTER 2024-06-14 09:25 | Emergency (ER) | payer MEDICAID, SELFPAY ==
--- NOTE | ~2024-06-14 | CT_ITS ---
EXAMINATION: CT PELVIS WITHOUT CONTRAST CLINICAL INFORMATION: Right hip and pelvic pain after fall one week ago COMPARISON: Pelvis radiograph 06/07/2024 TECHNIQUE: Helical scanning was performed with submillimeter collimation through the pelvis. Sagittal and coronal multiplanar 2-D reconstructions were obtained. This CT examination was performed using dose optimization techniques as appropriate, variously including the following: *Automated exposure control *Adjustment of mA and/or kV according to patient size (this includes techniques or standardized protocols for targeted exams where dose is matched to indication/reason for exam; i.e. extremities or head) *Use of iterative reconstruction technique DLP: 352 mGy-cm FINDINGS: There is a large hematoma present in the medial thigh/buttock, measuring 7.3 x 4.3 x 5.1 cm. There are varying degrees of density within this indicating a this is a likely from the patient's injury one week ago is resolving. No acute pelvic or hip fracture is seen. Spinal fusion hardware is present with anteriorly placed interbody devices at L4-L5 and L5-S1. The visualized bowel appears unremarkable aside from colonic diverticulosis without diverticulitis. Retroverted uterus is unremarkable. CT/CT bony pelvis IMPRESSION: 1. No evidence of an acute pelvic or hip fracture. 2. Hematoma in the medial right thigh/buttock as described above. 3. Other incidental findings as described above. Electronically signed by: Jimi Rodriguez MD 06/14/2024 11:40 AM EDT
[2024-06-14 09:30] VITALS: BP 121/62; PULSE 61; RESP 19; TEMP 36.6; O2SAT 99; BMI 28.9
--- NOTE | 2024-06-14 12:31 | ED.GENADULT ---
HPI - General Adult General Chief complaint: General Medical Stated complaint: Fall last week Time Seen by Provider: 06/14/24 09:45 Source: patient and RN notes reviewed Mode of arrival: ambulatory Limitations: no limitations History of Present Illness ED Provider: Wanda Yeung PA-C HPI narrative: This is a 59-year-old female, with a history of COPD, anxiety, depression, asthma, who presents emergency department with complaints of right upper leg, pelvic, and buttock pain status post mechanical fall which occurred 1 week ago. Patient states that she was cleaning out her tub when she accidentally fell and slipped onto her right side. She denies hitting her head or loss consciousness. She went to her primary care physician who ordered an x-ray however she has not heard what the results were. She reports that she has bruising to her leg. She has been able to ambulate without any difficulty. Denies any numbness, tingling or weakness. Denies taking any medications prior to arrival. Chest pain or shortness for breath. No dizziness, blurred vision, headaches. No abdominal tenderness. No other complaints or concerns at this time. MD complaint: Right leg pain, pelvic pain, buttock pain Onset (ago): week(s) Pain Consistency: constant Relieving factors: none Exacerbating factors: none Associated symptoms: denies other symptoms Treatments prior to arrival: none Related Data Home Medications ?Medication ?Instructions ?Recorded ?Confirmed diphenhydramine HCl 25 mg capsule 25 mg PO BEDTIME PRN Insomnia 12/03/21 01/27/24 (Banophen) hydrochlorothiazide 25 mg tablet 25 mg PO DAILY 12/03/21 01/27/24 montelukast 10 mg tablet 10 mg PO BEDTIME 12/03/21 01/27/24 omeprazole 20 mg capsule,delayed 20 mg PO DAILY 12/03/21 01/27/24 release zolpidem 10 mg tablet 10 mg PO BEDTIME PRN Insomnia 12/03/21 01/27/24 albuterol sulfate 2.5 mg/3 mL 2.5 mg inhalation Q6-8H PRN 12/10/21 01/27/24 (0.083 %) solution for nebulization Shortness Of Breath escitalopram oxalate 5 mg tablet 5 mg PO QAM 09/02/22 01/27/24 lidocaine 5 % topical patch 1 - 2 patch topical Q12H PRN pain 09/02/22 01/27/24 (Lidoderm) nabumetone 750 mg tablet 750 mg PO DAILY 09/02/22 01/27/24 gabapentin 600 mg tablet 600 mg PO TID 12/05/22 01/27/24 albuterol sulfate 90 mcg/actuation 1 puff inhalation Q4-6H PRN 11/02/23 01/27/24 aerosol inhaler shortness of breath or wheezing cyclobenzaprine 10 mg tablet 10 mg PO DAILY 11/02/23 01/27/24 fluticasone furoate 50 1 inh inhalation BID 11/02/23 01/20/24 mcg/actuation blister powder for inhalation fluticasone 500 mcg-salmeterol 50 1 inh inhalation BID 01/20/24 01/27/24 mcg/dose blistr powdr for inhalation (Advair Diskus) multivitamin 1 tab PO DAILY 01/20/24 01/27/24 tamsulosin 0.4 mg capsule 0.4 mg PO DAILY@1700 01/20/24 01/27/24 tramadol 50 mg tablet 50 mg PO Q8H PRN pain 03/18/24 03/18/24 Previous Rx's ?Medication ?Instructions ?Recorded walker #1 ea 01/28/24 celecoxib 200 mg capsule 200 mg PO BID 30 days #60 caps 02/19/24 acetaminophen 325 mg tablet 650 mg (2 x 325 mg) PO Q6H PRN for 03/01/24 pain #240 tabs docusate sodium 100 mg capsule 200 mg (2 x 100 mg) PO BID #120 03/04/24 caps fluticasone 500 mcg-salmeterol 50 1 ea PO BID #60 ea 05/23/24 mcg/dose blistr powdr for inhalation (Advair Diskus) acetaminophen 650 mg 650 mg PO Q8H PRN pain #30 tabs 06/14/24 tablet,extended release (Tylenol 8 Hour) ibuprofen 600 mg tablet 600 mg PO Q6H PRN pain #30 tabs 06/14/24 Allergies Allergy/AdvReac Type Severity Reaction Status Date / Time No Known Allergies Allergy Verified 06/14/24 09:33 Review of Systems Review of Systems: Yes all other systems are reviewed and are negative Constitutional: Constitutional: Reports as per [facility] Past Medical History Attestation statement: The following information was validated with the patient. Medical History Essential hypertension Low back pain Pre-diabetes Seasonal allergies GERD (gastroesophageal reflux disease) COVID-19 vaccine series completed Post-COVID syndrome COPD (chronic obstructive pulmonary disease) History of COVID-19 Arthritis Anxiety Depression Hesitancy of micturition Moderate persistent asthma Surgical History History of right knee joint replacement Hx of shoulder surgery History of carpal tunnel surgery of right wrist H/O colonoscopy History of total right knee replacement History of back surgery History of total left knee replacement (~06/2020) Family History Family History Mother Heart disease Sister HTN (hypertension) Sister HTN (hypertension) Diabetes Maternal Grandmother Cervical cancer Social History Social History Household Members: Spouse Housing: House Are you a primary daycare manager to a significant other at home: No Do you presently have visiting nurse or other home services: No Alcohol intake: never Comment: in bathroom, aware of trip hazard Patient Tobacco Use Status: Former Tobacco user Tobacco use type: Cigarette Second Hand Smoke Exposure: No Substance Use Type: Marijuana Advance Directives: Yes Advance Directives on File: Yes Advance Directives Date on File: 12/17/21 Do you have a plan to hurt others: No Plan service: No Current occupational status: unemployed Current occupation: Right Handed Gender identity: Female Physical Exam ED Vital Signs: Vital Signs - 24 hr 06/14/24 09:30 06/14/24 12:50 Temperature 98 F 98 F Pulse Rate 61 61 Respiratory Rate 19 19 Blood Pressure 121/62 121/62 Pulse Oximetry 99 99 Oxygen Delivery Method Room Air Room Air BMI result Body Mass Index 28.9 Const General: cooperative, comfortable and no acute distress Orientation/consciousness: patient oriented x3 Limitations: no limitations HENMT Head: Yes normal to inspection, Yes normocephalic and Yes atraumatic Ears: hearing grossly normal bilaterally General nose exam: Normal external nose present Face and sinus: Yes normal facial exam Mouth: Normal oral and palatal mucosa present, oropharynx normal and moist mucous membranes Throat: Yes posterior oropharynx normal Eyes General: appearance normal, both eyes and all related structures Eyelids: Yes eyelids normal Conjunctivae: conjunctivae normal Sclerae: sclerae normal Pupils: Equal, round and reactive pupils present EOM: EOMs intact bilaterally Neck Neck: Yes normal visual inspection, Yes full ROM and Yes no lymphadenopathy Lymphatic: no lymphadenopathy noted Chest Chest palpation & inspection: normal inspection of the chest Resp Effort & Inspection: normal respiratory effort and able to speak in complete sentences Auscultation: clear to auscultation bilaterally, no crackles, no rales, no rhonchi and no wheezes Cardio Rate: regular rate Rhythm: regular rhythm Heart sounds: S1 normal heart sound present and S2 normal heart sound present GI Inspection: Yes normal to inspection Skin General skin exam: no rashes or lesions noted Trauma: no lacerations or abrasions Wounds: no wounds Neuro General: patient oriented x3 and moves all extremities Cranial nerves: Yes Equal, round and reactive pupils present Extrem Other: Right buttock with extensive healing hematoma noted with mild tenderness palpation, patient has tenderness palpation along the anterior and posterior hip. Able to flex and extend at the hip without difficulty. Scant ecchymosis seen in the pelvic rami region. Mild tenderness palpation. She is ambulatory with steady gait. No open wounds, sores, erythema or warmth. No calf tenderness General: Yes normal to inspection Right upper extremity: normal to inspection Left upper extremity: normal to inspection Right lower extremity: normal to inspection Left lower extremity: normal to inspection Course Reevaluation(s) Reevaluation #1: CT scan reviewed as hematoma in the right medial thigh/buttock. Discussed findings with patient and rehab consultant at bedside. Advised follow-up with PCP. She understands and agrees with plan. Given strict return precautions. Patient stable for discharge. Time: 12:40 Medical Decision Making Medical Decision Making MDM Narrative: This is a 59-year-old female who presents emergency department with complaints of right leg, hip, and pelvic region pain status post mechanical fall which occurred 1 week ago. Patient was cleaning her tub when suddenly she slipped and fell landed onto her right side. She was seen by her primary care physician and an x-ray was ordered, she is unsure what the results were. Patient has extensive bruising noted to her posterior leg, buttocks, and pelvic region. Concerning for fracture. Will obtain pelvic CT to rule out pubic rami fracture. She is ambulatory with steady gait. Fall was purely mechanical, denies any symptoms prior to fall. Denies any head strike or LOC. She is not on blood thinners. Will order CT scan for further evaluation to rule out fracture Differential Diagnosis Differential Diagnoses: The differential diagnosis associated with the presentation includes Fracture, contusion, sprain, strain Admission/Observation Consideration of admission/observation: Escalation of care including admission/observation considered Radiology Impression Discussion of test interpretation with radiology: I have reviewed the radiologist's reading. Radiologist Impression: CT/CT bony pelvis IMPRESSION: 1. No evidence of an acute pelvic or hip fracture. 2. Hematoma in the medial right thigh/buttock as described above. 3. Other incidental findings as described above. Electronically signed by: Jimi Rodriguez MD 06/14/2024 11:40 AM EDT RP Dictated By: Jimi Rodriguez MD External Record Review External record reviewed: Inpatient record, Office record, Outpatient record, Prior outpatient labs, Prior outpatient radiology, Primary care record and Outside ED record Discharge Plan Discharge Clinical Impression: Hematoma Patient Disposition: Home, Self-Care Instructions: Bone Bruise (ED) Additional Instructions: You were seen in the emergency department due to pain in your right leg. Your CT scan shows a hematoma, which has a bruise. Your CT scan did not reveal any broken bones. Please rest, apply ice for your symptoms. Alternate between ibuprofen and Tylenol as needed for pain. If any new or worsening symptoms occur including but not limited to worsening pain, fevers, chills, chest pain, shortness of breath, please return for re-evaluation. Prescriptions: New ibuprofen 600 mg tablet 600 mg PO Q6H PRN (Reason: pain) Qty: 30 0RF acetaminophen [Tylenol 8 Hour] 650 mg tablet extended release 650 mg PO Q8H PRN (Reason: pain) Qty: 30 0RF No Action celecoxib 200 mg capsule 200 mg PO BID 30 Days Qty: 60 0RF acetaminophen 325 mg tablet 650 mg PO Q6H PRN (Reason: for pain) Qty: 240 0RF docusate sodium 100 mg capsule 200 mg PO BID Qty: 120 0RF fluticasone propion-salmeterol [Advair Diskus] 500-50 mcg/dose blister with device 1 ea PO BID Qty: 60 6RF albuterol sulfate 2.5 mg /3 mL (0.083 %) Solution For Nebulization 2.5 mg INHALATION Q6-8H PRN (Reason: Shortness Of Breath) albuterol sulfate 90 mcg/actuation HFA aerosol inhaler 1 puff inhalation Q4-6H PRN (Reason: shortness of breath or wheezing) fluticasone furoate 50 mcg/actuation Blister With Device 1 inh INHALATION BID cyclobenzaprine 10 mg Tablet 10 mg PO DAILY tramadol 50 mg tablet 50 mg PO Q8H PRN (Reason: pain) fluticasone propion-salmeterol [Advair Diskus] 500-50 mcg/dose Blister With Device 1 inh INHALATION BID tamsulosin 0.4 mg capsule 0.4 mg PO DAILY@1700 multivitamin Tablet 1 tab PO DAILY gabapentin 600 mg tablet 600 mg PO TID nabumetone 750 mg tablet 750 mg PO DAILY escitalopram oxalate 5 mg tablet 5 mg PO QAM lidocaine [Lidoderm] 5 % adhesive patch,medicated 1 - 2 patch topical Q12H PRN (Reason: pain) montelukast 10 mg tablet 10 mg PO BEDTIME diphenhydramine HCl [Banophen] 25 mg capsule 25 mg PO BEDTIME PRN (Reason: Insomnia) omeprazole 20 mg capsule,delayed release(DR/EC) 20 mg PO DAILY zolpidem 10 mg tablet 10 mg PO BEDTIME PRN (Reason: Insomnia) hydrochlorothiazide 25 mg tablet 25 mg PO DAILY (DME) walker Misc See Rx Instructions .ROUTE .MEDSUPPLY Qty: 1 0RF Rx Instructions: Folding front wheeled walker Interventions: ED Discharge Assessment Last Done: 06/14/24 12:50 Discharge Date/Time: 06/14/24 12:52 Print Language: Guinean
[2024-06-14 12:50] VITALS: BP 121/62; PULSE 61; RESP 19; TEMP 36.6; O2SAT 99
== END 2024-06-14 12:52 | disposition home or self-care (01) ==
PROVIDERS: Emergency Provider Emergency Medicine; PCP Internal Medicine
DX: S80.11XA Contusion of right lower leg, initial encounter (principal); R10.2 Pelvic and perineal pain; X58.XXXA Exposure to other specified factors, initial encounter; Y92.89 Other specified places as the place of occurrence of the external cause; Y99.8 Other external cause status; Z79.899 Other long term (current) drug therapy; Z87.891 Personal history of nicotine dependence
CPT/HCPCS: 72192; 99282; 99284

== ENCOUNTER 2024-06-24 09:26 | Emergency (ER) | payer MEDICAID, SELFPAY ==
[2024-06-24 09:34] VITALS: BP 122/83; PULSE 54; RESP 16; TEMP 36.8; O2SAT 96; BMI 29.2
--- NOTE | 2024-06-24 11:23 | ED.GENADULT ---
HPI - General Adult General Chief complaint: Back Pain/Injury Stated complaint: Fall-lump on buttock Time Seen by Provider: 06/24/24 10:45 Source: patient Mode of arrival: ambulatory Limitations: no limitations History of Present Illness ED Provider: Speedy Guillermo PA-C HPI narrative: 59-year-old female past medical history of varicose vein, rotator cuff impingement, post COVID syndrome, knee replacement, asthma, presents to ED for evaluation of right buttock hematoma. Patient states she fell 2 weeks ago and was seen here found to have painful lump on right buttock to inner thigh. Patient states it was very blue and black. Patient states over the past week ecchymosis of hematoma has resolved and is actually getting smaller. Patient states area is just [employer] and painful. Patient denies any new trauma Related Data Home Medications ?Medication ?Instructions ?Recorded ?Confirmed diphenhydramine HCl 25 mg capsule 25 mg PO BEDTIME PRN Insomnia 12/03/21 01/27/24 (Banophen) hydrochlorothiazide 25 mg tablet 25 mg PO DAILY 12/03/21 01/27/24 montelukast 10 mg tablet 10 mg PO BEDTIME 12/03/21 01/27/24 omeprazole 20 mg capsule,delayed 20 mg PO DAILY 12/03/21 01/27/24 release zolpidem 10 mg tablet 10 mg PO BEDTIME PRN Insomnia 12/03/21 01/27/24 albuterol sulfate 2.5 mg/3 mL 2.5 mg inhalation Q6-8H PRN 12/10/21 01/27/24 (0.083 %) solution for nebulization Shortness Of Breath escitalopram oxalate 5 mg tablet 5 mg PO QAM 09/02/22 01/27/24 lidocaine 5 % topical patch 1 - 2 patch topical Q12H PRN pain 09/02/22 01/27/24 (Lidoderm) nabumetone 750 mg tablet 750 mg PO DAILY 09/02/22 01/27/24 gabapentin 600 mg tablet 600 mg PO TID 12/05/22 01/27/24 albuterol sulfate 90 mcg/actuation 1 puff inhalation Q4-6H PRN 11/02/23 01/27/24 aerosol inhaler shortness of breath or wheezing cyclobenzaprine 10 mg tablet 10 mg PO DAILY 11/02/23 01/27/24 fluticasone furoate 50 1 inh inhalation BID 11/02/23 01/20/24 mcg/actuation blister powder for inhalation fluticasone 500 mcg-salmeterol 50 1 inh inhalation BID 01/20/24 01/27/24 mcg/dose blistr powdr for inhalation (Advair Diskus) multivitamin 1 tab PO DAILY 01/20/24 01/27/24 tamsulosin 0.4 mg capsule 0.4 mg PO DAILY@1700 01/20/24 01/27/24 tramadol 50 mg tablet 50 mg PO Q8H PRN pain 03/18/24 03/18/24 Previous Rx's ?Medication ?Instructions ?Recorded walker #1 ea 01/28/24 celecoxib 200 mg capsule 200 mg PO BID 30 days #60 caps 02/19/24 acetaminophen 325 mg tablet 650 mg (2 x 325 mg) PO Q6H PRN for 03/01/24 pain #240 tabs docusate sodium 100 mg capsule 200 mg (2 x 100 mg) PO BID #120 03/04/24 caps fluticasone 500 mcg-salmeterol 50 1 ea PO BID #60 ea 05/23/24 mcg/dose blistr powdr for inhalation (Advair Diskus) acetaminophen 650 mg 650 mg PO Q8H PRN pain #30 tabs 06/14/24 tablet,extended release (Tylenol 8 Hour) ibuprofen 600 mg tablet 600 mg PO Q6H PRN pain #30 tabs 06/14/24 Allergies Allergy/AdvReac Type Severity Reaction Status Date / Time No Known Allergies Allergy Verified 06/24/24 09:36 Review of Systems Review of Systems: Right buttock hematoma Yes all other systems are reviewed and are negative [facility] Past Medical History Medical History Essential hypertension Low back pain Pre-diabetes Seasonal allergies GERD (gastroesophageal reflux disease) COVID-19 vaccine series completed Post-COVID syndrome COPD (chronic obstructive pulmonary disease) History of COVID-19 Arthritis Anxiety Depression Hesitancy of micturition Moderate persistent asthma Surgical History History of right knee joint replacement Hx of shoulder surgery History of carpal tunnel surgery of right wrist H/O colonoscopy History of total right knee replacement History of back surgery History of total left knee replacement (~06/2020) Family History Family History Mother Heart disease Sister HTN (hypertension) Sister HTN (hypertension) Diabetes Maternal Grandmother Cervical cancer Social History Social History Household Members: Spouse Housing: House Are you a primary resident care manager to a significant other at home: No Do you presently have visiting nurse or other home services: No Alcohol intake: never Comment: in bathroom, aware of trip hazard Patient Tobacco Use Status: Former Tobacco user Tobacco use type: Cigarette Second Hand Smoke Exposure: No Substance Use Type: Marijuana Advance Directives Date on File: 12/17/21 service: No Current occupational status: unemployed Current occupation: Right Handed Gender identity: Female Physical Exam ED Vital Signs: Vital Signs - 24 hr 06/24/24 09:34 06/24/24 11:57 Temperature 98.3 F 98.3 F Pulse Rate 54 54 Respiratory Rate 16 16 Blood Pressure 122/83 122/83 Pulse Oximetry 96 96 Oxygen Delivery Method Room Air Room Air BMI result Body Mass Index 29.2 Const General: cooperative, healthy appearing, comfortable, no acute distress, well developed, alert, awake and Physically active Orientation/consciousness: patient oriented x3 HENMT Head: Yes normal to inspection, Yes No palpable skull fracture present, Yes normocephalic and Yes atraumatic Eyes General: appearance normal, both eyes and all related structures Neck Neck: Yes normal visual inspection, Yes full ROM, Yes no lymphadenopathy, Yes no meningeal signs, Yes trachea midline, Yes supple, No anterior neck swelling and No tender Chest Chest palpation & inspection: normal inspection of the chest and normal palpation of entire chest wall Resp Effort & Inspection: normal respiratory effort and able to speak in complete sentences Auscultation: clear to auscultation bilaterally Cardio Jugular venous distension: no JVD Heart sounds: S1 normal heart sound present and S2 normal heart sound present GI Inspection: Yes normal to inspection Palpation (GI): Soft to palpation, not firm, nontender, no guarding and not rigid General: No CVA tenderness and Yes no CVA tenderness Back/Spine/Pelvis Back: no CVA tenderness, No CVA tenderness and No back tenderness Skin General skin exam: no rashes or lesions noted, elasticity normal and turgor normal Full body images: 1. lump tender on palpation. Negative for erythema, crepitus, ecchymosis, hotness, coldness, pus discharge, or foul odor. Rectal exam negative for signs of perirectal abscess. Patient actually states hematoma did get smaller. Neuro General: patient oriented x3, gait normal, tone normal, moves all extremities, Normal light touch and pain sensation, no meningeal signs, no focal motor deficits, CN's II-XI intact bilaterally and normal sensation to monofilament Extrem General: Yes normal to inspection, Yes full ROM and Yes capillary refill normal Psych Appearance: grossly normal, well kempt and not disheveled Medical Decision Making Medical Decision Making MDM Narrative: 59-year-old female presents to the ED for right buttock hematoma evaluation. Patient states [employer] but swelling has improved and no longer bluish black. Physical exam negative for signs of cellulitis, necrotizing fasciitis, or worsening hematoma/hematoma extravasasion. Negative for signs of perirectal abscess. Negative for signs of compartment syndrome. Hematoma is improving and getting smaller as per patient. Patient given reassurance and explained worrisome signs informed to return to the ED immediately. No further intervention needed. Differential Diagnosis Differential Diagnoses: The differential diagnosis associated with the presentation includes (Hematoma, contusion) Admission/Observation Consideration of admission/observation: Escalation of care including admission/observation considered Independent Historian Clinical information obtained from an independent historian. History obtained from or confirmed by: Other (Patient) External Record Review External record reviewed: Other (Prior visits) Discharge Plan Discharge Clinical Impression: Hematoma Patient Disposition: Home, Self-Care Instructions: Hematoma (ED), Bone Bruise (ED) Additional Instructions: Your hematoma is improving. Continue taking pain medication as needed. Recommend sitting on a cushion doughnut. Return to the ED immediately for worsening pain, increased in size, redness, bluish black discoloration, pus discharge, foul odor, back pain, rectal bleeding, pain in rectum, urinary/bowel incontinence, lower extremity weakness, severe back pain, fever, chills, or any other concerning symptoms. Prescriptions: No Action celecoxib 200 mg capsule 200 mg PO BID 30 Days Qty: 60 0RF acetaminophen 325 mg tablet 650 mg PO Q6H PRN (Reason: for pain) Qty: 240 0RF docusate sodium 100 mg capsule 200 mg PO BID Qty: 120 0RF fluticasone propion-salmeterol [Advair Diskus] 500-50 mcg/dose blister with device 1 ea PO BID Qty: 60 6RF albuterol sulfate 2.5 mg /3 mL (0.083 %) Solution For Nebulization 2.5 mg INHALATION Q6-8H PRN (Reason: Shortness Of Breath) ibuprofen 600 mg tablet 600 mg PO Q6H PRN (Reason: pain) Qty: 30 0RF acetaminophen [Tylenol 8 Hour] 650 mg tablet extended release 650 mg PO Q8H PRN (Reason: pain) Qty: 30 0RF albuterol sulfate 90 mcg/actuation HFA aerosol inhaler 1 puff inhalation Q4-6H PRN (Reason: shortness of breath or wheezing) fluticasone furoate 50 mcg/actuation Blister With Device 1 inh INHALATION BID cyclobenzaprine 10 mg Tablet 10 mg PO DAILY tramadol 50 mg tablet 50 mg PO Q8H PRN (Reason: pain) fluticasone propion-salmeterol [Advair Diskus] 500-50 mcg/dose Blister With Device 1 inh INHALATION BID tamsulosin 0.4 mg capsule 0.4 mg PO DAILY@1700 multivitamin Tablet 1 tab PO DAILY gabapentin 600 mg tablet 600 mg PO TID nabumetone 750 mg tablet 750 mg PO DAILY escitalopram oxalate 5 mg tablet 5 mg PO QAM lidocaine [Lidoderm] 5 % adhesive patch,medicated 1 - 2 patch topical Q12H PRN (Reason: pain) montelukast 10 mg tablet 10 mg PO BEDTIME diphenhydramine HCl [Banophen] 25 mg capsule 25 mg PO BEDTIME PRN (Reason: Insomnia) omeprazole 20 mg capsule,delayed release(DR/EC) 20 mg PO DAILY zolpidem 10 mg tablet 10 mg PO BEDTIME PRN (Reason: Insomnia) hydrochlorothiazide 25 mg tablet 25 mg PO DAILY (DME) walker Misc See Rx Instructions .ROUTE .MEDSUPPLY Qty: 1 0RF Rx Instructions: Folding front wheeled walker Stand Alone Forms: Work/School Release Interventions: ED Discharge Assessment Last Done: 06/24/24 11:57 Discharge Date/Time: 06/24/24 11:57 Print Language: Vietnamese
[2024-06-24 11:57] VITALS: BP 122/83; PULSE 54; RESP 16; TEMP 36.8; O2SAT 96
== END 2024-06-24 11:57 | disposition home or self-care (01) ==
PROVIDERS: Emergency Provider Emergency Medicine; PCP Internal Medicine
DX: M54.50 Low back pain, unspecified (principal); S30.0XXD Contusion of lower back and pelvis, subsequent encounter; W18.30XD Fall on same level, unspecified, subsequent encounter
CPT/HCPCS: 99282

== ENCOUNTER 2024-08-05 14:06 | Outpatient (AMB) | payer MEDICAID, SELFPAY ==
--- NOTE | 2024-08-05 14:10 | MHC.OFFVIS ---
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: Yes Heavy Equipment Operating Engineer Language: Operations Research Manager Name: [id number] Information Interpreted: non-clinical & clinical Accompanied by: Self / Same As Patient Allergies No Known Allergies Allergy (Verified 08/11/24 14:22) Medication List - Last Reconciled 08/05/24 by Charissa Hurd MD acetaminophen 500 mg PO Q12H PRN albuterol sulfate 2.5 mg inhalation Q6-8H PRN albuterol sulfate 90 mcg/actuation 2 puffs inhalation Q4-6H PRN diclofenac potassium 50 mg PO BID diphenhydramine HCl (Banophen) 25 - 50 mg PO BEDTIME escitalopram oxalate 5 mg PO QAM fluticasone propion-salmeterol 250-50 mcg/dose (Advair Diskus) 1 inh inhalation BID fluticasone propionate 50 mcg/actuation 2 sprays intranasal BID gabapentin 300 mg PO TID hydrochlorothiazide 25 mg PO DAILY lidocaine 5% (Lidoderm) 1 - 2 patches topical Q12H PRN montelukast 10 mg PO BEDTIME multivitamin 1 tab PO DAILY omega [id number]-fish oil 1,000 mg (120 mg-180 mg) (Fish Oil) 1 cap PO DAILY omeprazole 20 mg PO DAILY tamsulosin 0.4 mg PO DAILY@1700 90 days valacyclovir 2,000 mg PO BID walker Folding front wheeled walker zolpidem 10 mg PO BEDTIME PRN HPI Comments Details: 08/05/24--Miguelina is a 59-year-old female who presents today to the office for a follow-up. She is followed today for voiding dysfunction and incomplete bladder emptying. She has been on Flomax 0.4 mg daily to bid, She was on bethanechol in the past which has been d/c'd. Patient states that she goes to bathroom frequently during the day time, and infrequently she may leak urine. She does consume 3 cups of coffee and she is on HCTZ diuretic medication. I discussed with the patient that this will contribute her going more frequently to the bathroom. I discussed to avoid dietary bladder irritants to help with her symptoms of urinary urgency. Review of chart: Comorbidity chronic low back pain.? History of back surgery several years ago. h/o lead placement trial for a back stimulator that was unsuccessful --she had significant pain after the lead was placed so it was removed has been on tramadol and gabapentin for pain. previous discussion regarding causes for her voiding dysfunction may be multifactorial; Nerve related, bladder muscle hypo contractility versus bladder outlet dysfunction. Tx options discussed included pelvic floor physical therapy.? [facility] Medical History (Updated 08/03/24 @ 07:24 by Maria Elena Romero RN) Right-sided ischial pain Tubular adenoma of colon Hematuria Dysuria Overweight Varicose vein of leg Chronic tension-type headache, not intractable Neuropathic pain Hyperlipidemia Carpal tunnel syndrome Cervical radiculopathy Depressive disorder Diverticulosis HTN (hypertension) Osteoarthritis Asthma Essential hypertension Low back pain Pre-diabetes Seasonal allergies GERD (gastroesophageal reflux disease) COVID-19 vaccine series completed Post-COVID syndrome COPD (chronic obstructive pulmonary disease) History of COVID-19 Arthritis Anxiety Depression Hesitancy of micturition Moderate persistent asthma Surgical History (Updated 08/03/24 @ 07:24 by Maria Elena Romero RN) Hx of total knee arthroplasty History of right knee joint replacement Hx of shoulder surgery History of carpal tunnel surgery of right wrist H/O colonoscopy History of total right knee replacement History of back surgery History of total left knee replacement (~06/2020) Family History Mother Heart disease Sister HTN (hypertension) Sister HTN (hypertension) Diabetes Maternal Grandmother Cervical cancer Social History Household Members: Spouse Housing: House Are you a primary acute care surgeon to a significant other at home: No Do you presently have visiting nurse or other home services: No Alcohol intake: never Comment: in bathroom, aware of trip hazard Patient Tobacco Use Status: Former Tobacco user Tobacco use type: Cigarette Second Hand Smoke Exposure: No Substance Use Type: Marijuana Advance Directives Date on File: 12/17/21 service: No Current occupational status: unemployed Current occupation: Right Handed Gender identity: Female Review of Systems Const All systems reviewed & are unremarkable except as noted in HPI and below Reports no additional complaints Eyes Reports no additional complaints ENT Reports no additional complaints Card Reports no additional complaints Resp Reports no additional complaints GI Reports no additional complaints Reports as per HPI Musc Reports no additional complaints Skin/Breast Reports system reviewed and no additional complaints, except as documented Neuro Reports no additional complaints Psych Reports no additional complaints Endo Reports no additional complaints Darrian/Lymph Reports no additional complaints Aller/Immun Reports no additional complaints Office Procedures Post Void Residual Post Residual Void Post Void Residual (PVR): 0 [id number] Void Residual by ultrasound Results AMB Urinalysis, Automated UA Leukoctes 0 Anand/uL Last Edit by YOVANI Barker on 08/05/24 14:24 UA Nitrite Negative Last Edit by Lubna Alvares [facility] on 08/05/24 14:24 UA Urobilinogen 0.2 mg/dL Last Edit by YOVANI Barker on 08/05/24 14:24 UA Protein 0 mg/dL Last Edit by Lubna Alvares [facility] on 08/05/24 14:24 UA pH 6.0 Last Edit by Lubna Alvares [facility] on 08/05/24 14:24 UA Blood 0 Jose/uL Last Edit by Lubna Alvares [facility] on 08/05/24 14:24 UA Specific [place] 1.010 Last Edit by YOVANI Barker on 08/05/24 14:24 UA Ketone Negative Last Edit by Lubna Alvares [facility] on 08/05/24 14:24 UA Bilirubin 0 mg/dL Last Edit by Lubna Alvares [facility] on 08/05/24 14:24 UA Glucose 0 mg/dL Last Edit by Lubna Alvares [facility] on 08/05/24 14:24 Results Reviewed Results Reviewed: Laboratory Last Values Urine pH (Auto) 6.0 08/05/24 14:23 Specific [place] (Auto) 1.010 08/05/24 14:23 Urine Protein (Auto) 0 mg/dL 08/05/24 14:23 Glucose (UA)(Auto) 0 mg/dL 08/05/24 14:23 Urine Ketones (Auto) Negative 08/05/24 14:23 Urine Blood (Auto) 0 Jose/uL 08/05/24 14:23 Urine Nitrite (Auto) Negative 08/05/24 14:23 Urine Bilirubin (Auto) 0 mg/dL 08/05/24 14:23 Urine Urobilinogen (Auto) 0.2 mg/dL 08/05/24 14:23 Leukocyte Esterase (Auto) 0 Anand/uL 08/05/24 14:23 Assessment & Plan Assessment & Plan (1) Voiding dysfunction: Code(s): N39.8 - Other specified disorders of urinary system Category: Medical (2) Incomplete bladder emptying: Code(s): R33.9 - Retention of urine, unspecified Category: Medical (3) Hesitancy of micturition: Code(s): R39.11 - Hesitancy of micturition Category: Medical Plan Continue Flomax daily. Follow-up in 1 year. Orders: Orders AMB Urinalysis Automated 08/05/24 Z13.9 - Encounter for screening, unspecified Coding Level of Care Code Est Pt Level 3 (94855) Diagnoses Voiding dysfunction N39.8 Incomplete bladder emptying R33.9 Hesitancy of micturition R39.11 CPT Codes Post Residual Void - PVR CPT Code: 32351-Btcm Void Residual by ultrasound ([id number])
== END 2024-08-05 14:40 | disposition home or self-care (01) ==
PROVIDERS: PCP Internal Medicine; Referring Provider Internal Medicine; Visit Provider Urology
DX: N39.8 Other specified disorders of urinary system (principal); R33.9 Retention of urine, unspecified; R39.11 Hesitancy of micturition
CPT/HCPCS: 99213

== ENCOUNTER → 2024-08-05 14:06 | Outpatient (BNVA) | payer MEDICAID, SELFPAY | PROVIDERS: PCP Internal Medicine; Visit Provider Urology | DX: N39.8 Other specified disorders of urinary system (principal); R33.9 Retention of urine, unspecified; R39.11 Hesitancy of micturition | CPT/HCPCS: 51798; 81003; 99212 ==

== ENCOUNTER 2024-08-08 07:55 | Day surgery (SDC) | payer MEDICAID, SELFPAY ==
[2024-08-03 07:45] VITALS: BMI 28.3
[2024-08-08] MEDS: Tetracaine HCl/PF 0.5% Oph Sol 4 ML DROPS 1 DROP EYE-LEFT (09:03)
[2024-08-08] MEDS: Cyclopentolate 1 % Ophth Sol 2 ML DRPBTL 1 DROP EYE-LEFT ×3 (09:08→09:29)
[2024-08-08] MEDS: Tropicamide 1 % Ophth Sol 3 ML BTL 1 DROP EYE-LEFT ×3 (09:14→09:31)
[2024-08-08] MEDS: Ketorolac Tromethamine 0.5% Op 10 ML DROPS 1 DROP EYE-LEFT ×3 (09:15→09:33)
[2024-08-08] MEDS: Phenylephrine HCL 2.5% Oph SoL 2 ML BOTTLE 1 DROP EYE-LEFT ×3 (09:17→09:34)
--- NOTE | 2024-08-08 09:18 | P.CONAN_ITS ---
[facility] Active Problems Active Problems: All Active Problems Encounter for well woman exam with routine gynecological exam (Acute) Status post total right knee replacement (Acute) Encounter for preoperative pulmonary examination (Acute) Varicose veins of right lower extremity with inflammation (Acute) Pain in knee region after replacement of knee joint (Acute) Shoulder pain (Acute) Incomplete bladder emptying (Acute) Voiding dysfunction (Acute) Shoulder pain, left (Acute) Back pain (Acute) Slowing of urinary stream (Acute) SOB (shortness of breath) (Acute) Precordial chest pain (Acute) Encounter for annual routine gynecological examination (Acute) Dyspnea on exertion (Acute) Post-COVID syndrome (Acute) COVID (Acute) Rotator cuff impingement syndrome of right shoulder (Acute) Environmental allergies (Acute) Trigger finger, left middle finger (Acute) Trigger finger, left index finger (Acute) Status post left knee replacement (Acute) History of total right knee replacement (Acute) Hesitancy of micturition (Acute) Moderate persistent asthma (Acute) Past Medical History Medical History (Updated 08/03/24 @ 07:24 by Maria Elena Romero RN) Right-sided ischial pain Tubular adenoma of colon Hematuria Dysuria Overweight Varicose vein of leg Chronic tension-type headache, not intractable Neuropathic pain Hyperlipidemia Carpal tunnel syndrome Cervical radiculopathy Depressive disorder Diverticulosis HTN (hypertension) Osteoarthritis Asthma Essential hypertension Low back pain Pre-diabetes Seasonal allergies GERD (gastroesophageal reflux disease) COVID-19 vaccine series completed Post-COVID syndrome COPD (chronic obstructive pulmonary disease) History of COVID-19 Arthritis Anxiety Depression Hesitancy of micturition Moderate persistent asthma Family History Family History Mother Heart disease Sister HTN (hypertension) Sister HTN (hypertension) Diabetes Maternal Grandmother Cervical cancer Family history of problems with anesthesia: No Surgical History Surgical History (Updated 08/03/24 @ 07:24 by Maria Elena Romero RN) Hx of total knee arthroplasty History of right knee joint replacement Hx of shoulder surgery History of carpal tunnel surgery of right wrist H/O colonoscopy History of total right knee replacement History of back surgery History of total left knee replacement (~06/2020) History of Problems with Anesthesia: No Social History Social History Household Members: Spouse Housing: House Are you a primary acute care occupational therapist to a significant other at home: No Do you presently have visiting nurse or other home services: No Alcohol intake: never Comment: in bathroom, aware of trip hazard Patient Tobacco Use Status: Former Tobacco user Tobacco use type: Cigarette Second Hand Smoke Exposure: No Substance Use Type: Marijuana Are you DNR?: No Advance Directives: Yes Advance Directives Information Provided: No Advance Directives on File: Yes Advance Directives Date on File: 12/17/21 Recently lost weight without trying: No Eating poorly because of decreased appetite: No Nutrition Risks: No Nutritional Risk Patient : No : No service: No Current occupational status: unemployed Current occupation: Right Handed Gender identity: Female Meds Allergies Allergy/AdvReac Type Severity Reaction Status Date / Time No Known Allergies Allergy Verified 06/24/24 09:36 Active Medications: Current Medications Cyclopentolate HCl (Cyclopentolate 1 % Ophth Valentina 2 Ml Drpbtl) 1 drop EYE-LEFT Q5M OLESYA Stop: 08/08/24 09:26 Ketorolac Tromethamine (Ketorolac Tromethamine 0.5% Op 10 Ml Drops) 1 drop EYE- LEFT Q5M OLESYA Stop: 08/08/24 09:26 Naloxone HCl (Naloxone Hcl 0.4 Mg/Ml Vial) 0.04 mg IVPUSH Q5M PRN PRN Reason: Excessive sedation or RR < 8 Phenylephrine HCl (Phenylephrine Hcl 2.5% Oph Valentina 2 Ml Bottle) 1 drop EYE-LEFT Q5M OLESYA Stop: 08/08/24 09:26 Povidone Iodine (Povidone Iodine 5 % Ophth Soln 30 Ml Bottle) 1 appl EYE-LEFT PREOP PRN PRN Reason: Pre-Op Surgical Implant Prophy Tropicamide (Tropicamide 1 % Ophth Valentina 3 Ml Btl) 1 drop EYE-LEFT Q5M OLESYA Stop: 08/08/24 09:26 Home Medications ?Medication ?Instructions ?Recorded ?Confirmed ?Last Taken ?Type hydrochlorothiazide 25 mg tablet 25 mg PO DAILY 12/03/21 08/05/24 Unknown History montelukast 10 mg tablet 10 mg PO BEDTIME 12/03/21 08/05/24 Unknown History omeprazole 20 mg capsule,delayed 20 mg PO DAILY 12/03/21 08/05/24 02/03/24 History release zolpidem 10 mg tablet 10 mg PO BEDTIME PRN Insomnia 12/03/21 08/05/24 02/02/24 History albuterol sulfate 2.5 mg/3 mL 2.5 mg inhalation Q6-8H PRN 12/10/21 08/05/24 Unknown History (0.083 %) solution for nebulization Shortness Of Breath escitalopram oxalate 5 mg tablet 5 mg PO QAM 09/02/22 08/05/24 Unknown History lidocaine 5 % topical patch 1 - 2 patch topical Q12H PRN pain 09/02/22 08/05/24 Unknown History (Lidoderm) albuterol sulfate 90 mcg/actuation 2 puff inhalation Q4-6H PRN 11/02/23 08/05/24 Unknown History aerosol inhaler shortness of breath or wheezing multivitamin 1 tab PO DAILY 01/20/24 08/05/24 Unknown History acetaminophen 500 mg tablet 500 mg PO Q12H PRN pain 08/03/24 08/05/24 Unknown History diclofenac potassium 50 mg tablet 50 mg PO BID 08/03/24 08/05/24 Unknown History diphenhydramine HCl 25 mg capsule 25 - 50 mg PO BEDTIME 08/03/24 08/05/24 Unknown History (Banophen) fluticasone 250 mcg-salmeterol 50 1 inh inhalation BID 08/03/24 08/05/24 Unknown History mcg/dose blistr powdr for inhalation (Advair Diskus) fluticasone propionate 50 2 spray intranasal BID 08/03/24 08/05/24 Unknown History mcg/actuation nasal spray,suspension gabapentin 300 mg capsule 300 mg PO TID 08/03/24 08/05/24 Unknown History omega 1-xiz-xmo-fish oil 1,000 mg 1 cap PO DAILY 08/03/24 08/05/24 Unknown History (120 mg-180 mg) capsule (Fish Oil) valacyclovir 1 gram tablet 2,000 mg PO BID 08/03/24 08/05/24 Unknown History Exam Height,Weight and Vital Signs: Height 5 ft 3 in Weight 72.575 kg Airway Mallampati Class: II TM Dist: >3cm Neck ROM: Full Heart: rrr Lungs: cta Assessment and Plan Assessment Anesthesia Assessment: Anesthesia Plan Discussed and Chart Reviewed Final Anesthetic Review Family History of Problems with Anesthesia: No History of Problems with Anesthesia: No NPO: Yes ASA Class: II Final Preanesthetic Review: No Changes in Pt Med Stat, Meds/Allgs Chart Reviewed and Consent Obtained/Reviewed Patient Risk: Low Procedure Risk: Low Anesthetic Plan Anesthetic Plan: MAC: Disposition: Standard PACU
--- NOTE | 2024-08-08 09:43 | MHC.SHP ---
Pre-Procedural Eval Section A - 24 Hr Update-Section A only Date of Service: 08/08/24 The patient is an INPATIENT: No Changes since office visit: No Cold of Flu in the past 2 weeks, No New Medical Problems, No Changes in Medication and No Patient answered all questions The patient has been examined within 24 hours of the surgical procedure. The History & Physical has been completed within 30 days and I have reviewed it.: Yes Section B - Complete if H&P > 30 days Chief Complaint: Displacement of intraocular lens, sequela Allergies: Allergies Allergy/AdvReac Type Severity Reaction Status Date / Time No Known Allergies Allergy Verified 06/24/24 09:36 Plan Diagnosis/Plan: Unchanged I have reviewed the history and physical and performed a pertinent physical examination on my patient. No changes have occurred unless specified. Time Spent With Patient Time: Total time managing care of this patient today ____ minutes.
[2024-08-08 10:18] VITALS: BP 121/61; PULSE 67; RESP 16; TEMP 36.4; O2SAT 100
--- NOTE | 2024-08-08 12:26 | OP_ITS ---
DATE OF SERVICE: 08/08/2024 SURGEON: Anuel Chaves MD PREOPERATIVE DIAGNOSIS: POSTOPERATIVE DIAGNOSIS: Repositioning of intraocular lens, OS. PROCEDURE PERFORMED: Repositioning of intraocular lens, OS. ESTIMATED BLOOD LOSS: COMPLICATIONS: ANESTHESIA: MAC. ASSISTANTS: SPECIMENS: DESCRIPTION OF PROCEDURE: After obtaining informed consent, the patient was brought to the operating room suite and placed in supine position. The left eye was prepped and draped in usual sterile fashion. The operating room microscope was positioned over the left eye. Kenalog injection at the tenons 0.15 mL was given. A paracentesis was created followed by clear cornea utilizing a 3.2 mm keratome. Viscoelastic was then instilled into the anterior chamber where it was noted that the superior haptic was out of the capsular bag. The needle was positioned on the viscoelastic and utilized to break through the scar tissue of that capsule that was surrounding the superior haptic. Viscoelastic was then instilled posteriorly below the intraocular lens to free the lens. The lens was then rotated and the superior haptic was grasped with capsulotomy forceps and then placed directly into the capsular bag. Automated irrigation and aspiration was then utilized to remove as much as viscoelastic as possible. Antibiotic Vigamox 0.1 mL was given intracameral. The wound was water tight. The patient tolerated the procedure well and will be seen in followup. MD BRENNEN Graves/MODL / [id number] MTDD
== END 2024-08-08 10:34 | disposition home or self-care (01) ==
PROVIDERS: PCP Internal Medicine; Visit Provider Ophthalmology
PROC: (CPT 66985; principal; 2024-08-08 09:30)
DX: H52.12 Myopia, left eye (principal); T85 Complications of other internal prosthetic devices, implants and grafts; Y77.2 Prosthetic and other implants, materials and accessory ophthalmic devices associated with adverse incidents; H43.393 Other vitreous opacities, bilateral; Z96.1 Presence of intraocular lens; H04.123 Dry eye syndrome of bilateral lacrimal glands; I10 Essential (primary) hypertension; E78.00 Pure hypercholesterolemia, unspecified; R73.03 Prediabetes; J45.909 Unspecified asthma, uncomplicated; Z79.51 Long term (current) use of inhaled steroids; Z79.899 Other long term (current) drug therapy; Z98.890 Other specified postprocedural states; Z87.891 Personal history of nicotine dependence
CPT/HCPCS: 66825; J2250; J3301

== ENCOUNTER 2024-08-11 13:59 | Outpatient (AMB) | payer MEDICAID, SELFPAY ==
--- NOTE | 2024-08-11 14:19 | MHC.OFFVIS ---
Vital Signs 08/11/24 14:20 Height 5 ft 3 in Weight 163 lb BMI 28.9 BP 111/64 Blood Pressure Location Rt brachial Position Sitting Pulse 62 Pulse Source Doppler Pulse Oximetry (%) 97 Intake Visit Reasons: COPD Allergies No Known Allergies Allergy (Verified 08/11/24 14:22) HPI HPI COPD: Details: 59-year-old lady, former 20 pack-year smoker, 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 She has been using Advair 250, Singulair, and albuterol MDI/nebs with good control of her symptoms.? She denies any recent exacerbations. [facility] Medical History (Updated 08/03/24 @ 07:24 by Maria Elena Romero RN) Right-sided ischial pain Tubular adenoma of colon Hematuria Dysuria Overweight Varicose vein of leg Chronic tension-type headache, not intractable Neuropathic pain Hyperlipidemia Carpal tunnel syndrome Cervical radiculopathy Depressive disorder Diverticulosis HTN (hypertension) Osteoarthritis Asthma Essential hypertension Low back pain Pre-diabetes Seasonal allergies GERD (gastroesophageal reflux disease) COVID-19 vaccine series completed Post-COVID syndrome COPD (chronic obstructive pulmonary disease) History of COVID-19 Arthritis Anxiety Depression Hesitancy of micturition Moderate persistent asthma Surgical History (Updated 08/03/24 @ 07:24 by Maria Elena Romero RN) Hx of total knee arthroplasty History of right knee joint replacement Hx of shoulder surgery History of carpal tunnel surgery of right wrist H/O colonoscopy History of total right knee replacement History of back surgery History of total left knee replacement (~06/2020) Family History Mother Heart disease Sister HTN (hypertension) Sister HTN (hypertension) Diabetes Maternal Grandmother Cervical cancer Social History Household Members: Spouse Housing: House Are you a primary career services director to a significant other at home: No Do you presently have visiting nurse or other home services: No Alcohol intake: never Comment: in bathroom, aware of trip hazard Patient Tobacco Use Status: Former Tobacco user Tobacco use type: Cigarette Second Hand Smoke Exposure: No Substance Use Type: Marijuana Advance Directives Date on File: 12/17/21 service: No Current occupational status: unemployed Current occupation: Right Handed Gender identity: Female Review of Systems Const Denies daytime sleepiness, Denies excessive sweating, Denies fatigue, Denies fever(s), Denies lethargy, Denies malaise, Denies night sweats, Denies snoring and Denies weight loss Eyes Denies blurry vision and Denies itchy eyes ENT Denies nasal congestion, Denies post nasal drip, Denies sinus pain, Denies sinus pressure and Denies other ( Thrush) Card Denies chest pain, Denies pedal edema, Denies dyspnea, Denies orthopnea and Denies paroxysmal nocturnal dyspnea Resp Denies cough, Denies hemoptysis, Denies excessive phlegm production, Denies dyspnea, Denies snoring and Denies wheezing GI Denies abdominal pain and Denies heartburn Musc Denies myalgias, Denies arthralgias and Denies joint swelling Skin/Breast Denies rash Neuro Denies memory loss and Denies seizure-like activity Psych Denies abnormal sleep pattern, Denies anxiety and Denies memory loss Endo Denies excessive sweating, Denies fatigue and Denies heat intolerance Darrian/Lymph Denies easy bruising Aller/Immun Denies itchy eyes, Denies seasonal rhinorrhea and Denies wheezing Physical Exam Vital Signs: Last Vital Signs Pulse 62 08/11/24 14:20 BP 111/64 08/11/24 14:20 Pulse Ox 97 08/11/24 14:20 BMI result Body Mass Index 28.9 Const General: no acute distress and alert Nutritional Appearance: not obese Orientation/consciousness: Other orientation findings ( oriented) HEENT Head: Yes atraumatic Eyes General: appearance normal, both eyes and all related structures Sclerae: sclerae normal EOM: EOMs intact bilaterally Neck Neck: Yes supple Lymphatic: no lymphadenopathy noted Resp Effort & Inspection: normal respiratory effort and no use of accessory muscles Auscultation: clear to auscultation bilaterally Cardio Rate: regular rate Rhythm: regular rhythm Heart sounds: no gallops, no murmurs and no rubs Skin General skin exam: other ( warm) Extrem General: No clubbing, No cyanosis and No edema Assessment & Plan Assessment & Plan (1) Moderate persistent asthma: Code(s): J45.40 - Moderate persistent asthma, uncomplicated Category: Medical Plan: Well controlled on current regimen of Advair, albuterol MDI/nebs. Continue current regimen. (2) Environmental allergies: Code(s): Z91.09 - Other allergy status, other than to drugs and biological substances Category: Medical Plan: Well controlled on Flonase and Singulair, continue current regimen. Coding Level of Care Code Est Pt Level 4 (60207) Diagnoses Moderate persistent asthma J45.40 Environmental allergies Z91.09
[2024-08-11 14:20] VITALS: BP 111/64; PULSE 62; O2SAT 97; BMI 28.9
== END 2024-08-11 14:52 | disposition home or self-care (01) ==
LOC: HO.HPS 14:00
PROVIDERS: PCP Internal Medicine; Visit Provider Internal Medicine Pulmonary Disease
DX: J45.40 Moderate persistent asthma, uncomplicated (principal); Z91.09 Other allergy status, other than to drugs and biological substances
CPT/HCPCS: 99214

== ENCOUNTER → 2024-08-11 13:59 | Outpatient (BNVA) | payer MEDICAID, SELFPAY | PROVIDERS: PCP Internal Medicine; Visit Provider Internal Medicine Pulmonary Disease | DX: J45.40 Moderate persistent asthma, uncomplicated (principal); Z91.09 Other allergy status, other than to drugs and biological substances | CPT/HCPCS: 99212 ==

== ENCOUNTER 2024-08-26 11:09 | Emergency (ER) | payer MEDICAID, SELFPAY ==
--- NOTE | ~2024-08-26 | XR_ITS ---
EXAMINATION: XR LUMBOSACRAL SPINE CLINICAL INFORMATION: Left-sided back pain. Prior surgery. COMPARISON: Most recent lumbar spine radiographs dated 10/31/2023. TECHNIQUE: Three views of the lumbosacral spine. FINDINGS: Redemonstration of 6 nonrib-bearing lumbar-type vertebral bodies with lumbarization of the S1 vertebral body. Posterior stabilization hardware redemonstrated at L4-L5 with intervertebral disc hardware at L5-S1 and S1-S2. No evidence of hardware complication. Grade 1 retrolisthesis of L1 on L2 is unchanged. Multilevel degenerative disc disease with facet arthropathy, unchanged. No acute fracture. No new lytic or blastic osseous lesion. Surgical clips. XR/XR lumbar spine 2-3V IMPRESSION: 1. Posterior stabilization hardware at L4-L5 and L5-S1 without evidence of hardware complication. 2. Grade 1 retrolisthesis of L1 on L2 and multilevel degenerative disc disease and facet arthropathy, unchanged. Electronically signed by: Luc Lieberman MD 08/26/2024 01:29 PM [facility]
[2024-08-26 11:30] VITALS: BP 133/69; PULSE 59; RESP 16; TEMP 36.7; O2SAT 94; BMI 28.7
--- NOTE | 2024-08-26 11:31 | ED_ITS ---
HPI - Back Pain/Injury General Chief Complaint: Back Pain/Injury Stated Complaint: lower L back pain Time Seen by Provider: 08/26/24 14:31 Source: patient Mode of arrival: ambulatory Limitations: no limitations History of Present Illness ED Provider: Speedy LUCAS HPI Narrative: 59-year-old female history of rotator cuff impingement, chronic back pain, and varicose veins presents to ED for low back pain exacerbation. Patient denies any trauma. Patient denies any urinary/bowel incontinence. Patient states no fever or chills. Patient denies any paralysis of lower extremity pain. Patient denies any history of IV drug use or history of any immunocompromise diseases. Related Data Home Medications ?Medication ?Instructions ?Recorded ?Confirmed hydrochlorothiazide 25 mg tablet 25 mg PO DAILY 12/03/21 08/05/24 montelukast 10 mg tablet 10 mg PO BEDTIME 12/03/21 08/05/24 omeprazole 20 mg capsule,delayed 20 mg PO DAILY 12/03/21 08/05/24 release zolpidem 10 mg tablet 10 mg PO BEDTIME PRN Insomnia 12/03/21 08/05/24 albuterol sulfate 2.5 mg/3 mL 2.5 mg inhalation Q6-8H PRN 12/10/21 08/05/24 (0.083 %) solution for nebulization Shortness Of Breath escitalopram oxalate 5 mg tablet 5 mg PO QAM 09/02/22 08/05/24 lidocaine 5 % topical patch 1 - 2 patch topical Q12H PRN pain 09/02/22 08/05/24 (Lidoderm) albuterol sulfate 90 mcg/actuation 2 puff inhalation Q4-6H PRN 11/02/23 08/05/24 aerosol inhaler shortness of breath or wheezing multivitamin 1 tab PO DAILY 01/20/24 08/05/24 acetaminophen 500 mg tablet 500 mg PO Q12H PRN pain 08/03/24 08/05/24 diclofenac potassium 50 mg tablet 50 mg PO BID 08/03/24 08/05/24 diphenhydramine HCl 25 mg capsule 25 - 50 mg PO BEDTIME 08/03/24 08/05/24 (Banophen) fluticasone 250 mcg-salmeterol 50 1 inh inhalation BID 08/03/24 08/05/24 mcg/dose blistr powdr for inhalation (Advair Diskus) fluticasone propionate 50 2 spray intranasal BID 08/03/24 08/05/24 mcg/actuation nasal spray,suspension gabapentin 300 mg capsule 300 mg PO TID 08/03/24 08/05/24 omega 5-gga-nar-fish oil 1,000 mg 1 cap PO DAILY 08/03/24 08/05/24 (120 mg-180 mg) capsule (Fish Oil) valacyclovir 1 gram tablet 2,000 mg PO BID 08/03/24 08/05/24 Previous Rx's ?Medication ?Instructions ?Recorded walker #1 ea 01/28/24 tamsulosin 0.4 mg capsule 0.4 mg PO DAILY@1700 90 days #90 07/07/24 caps oxycodone 5 mg tablet 5 mg PO Q8H PRN pain 3 days #9 tabs 08/26/24 prednisone 20 mg tablet 40 mg (2 x 20 mg) PO DAILY 5 days 08/26/24 #10 tabs Allergies Allergy/AdvReac Type Severity Reaction Status Date / Time No Known Allergies Allergy Verified 08/26/24 11:36 Review of Systems Review of Systems: chronic back pain Yes all other systems are reviewed and are negative PMF Past Medical History Medical History (Updated 08/26/24 @ 15:37 by TINA Felipe) Right-sided ischial pain Tubular adenoma of colon Hematuria Dysuria Overweight Varicose vein of leg Chronic tension-type headache, not intractable Neuropathic pain Hyperlipidemia Carpal tunnel syndrome Cervical radiculopathy Depressive disorder Diverticulosis HTN (hypertension) Osteoarthritis Asthma Essential hypertension Low back pain Pre-diabetes Seasonal allergies GERD (gastroesophageal reflux disease) COVID-19 vaccine series completed Post-COVID syndrome COPD (chronic obstructive pulmonary disease) History of COVID-19 Arthritis Anxiety Depression Hesitancy of micturition Moderate persistent asthma Surgical History (Updated 08/03/24 @ 07:24 by Maria Elena Romero RN) Hx of total knee arthroplasty History of right knee joint replacement Hx of shoulder surgery History of carpal tunnel surgery of right wrist H/O colonoscopy History of total right knee replacement History of back surgery History of total left knee replacement (~06/2020) Family History Family History Mother Heart disease Sister HTN (hypertension) Sister HTN (hypertension) Diabetes Maternal Grandmother Cervical cancer Social History Social History Household Members: Spouse Housing: House Are you a primary progressive care unit registered nurse to a significant other at home: No Do you presently have visiting nurse or other home services: No Alcohol intake: never Comment: in bathroom, aware of trip hazard Patient Tobacco Use Status: Former Tobacco user Tobacco use type: Cigarette Second Hand Smoke Exposure: No Substance Use Type: Marijuana Advance Directives: Yes Advance Directives on File: Yes Advance Directives Date on File: 12/17/21 service: No Current occupational status: unemployed Current occupation: Right Handed Gender identity: Female Physical Exam Vital Signs: Vital Signs: Last Vital Signs Temp 97.6 F 08/26/24 16:00 Pulse 78 08/26/24 16:00 Resp 16 08/26/24 16:00 BP 138/56 L 08/26/24 16:00 Pulse Ox 99 08/26/24 16:00 O2 Del Method Room Air 08/26/24 16:00 BMI result Body Mass Index 28.7 Const: General: cooperative, healthy appearing, comfortable, no acute distress, well developed, alert, awake and Physically active Orientation/consciousness: patient oriented x3 HEENT: Head: Yes normal to inspection, Yes No palpable skull fracture present and Yes normocephalic Eyes: General: appearance normal, both eyes and all related structures Neck: Neck: Yes normal visual inspection, Yes full ROM, Yes no lymphadenopathy, Yes no meningeal signs, Yes trachea midline, Yes supple, No anterior neck swelling and No tender Chest: Chest palpation & inspection: normal inspection of the chest and normal palpation of entire chest wall Resp: Effort & Inspection: normal respiratory effort and able to speak in complete sentences Auscultation: clear to auscultation bilaterally Cardio: Jugular venous distension: no JVD Heart sounds: S1 normal heart sound present and S2 normal heart sound present GI: Inspection: Yes normal to inspection Palpation (GI): Soft to palpation, not firm, nontender, no guarding and not rigid : General: Yes no CVA tenderness Back/Spine/Pelvis: Back: no CVA tenderness and back tenderness (Lumbar spine tenderness) Skin: General skin exam: no rashes or lesions noted, elasticity normal and turgor normal Neuro: General: patient oriented x3, gait normal, tone normal, moves all extremities, Normal light touch and pain sensation, no meningeal signs, no focal motor deficits, CN's II-XI intact bilaterally and normal sensation to monofilament Extrem: General: Yes normal to inspection, Yes full ROM and Yes capillary refill normal Psych: Appearance: grossly normal, well kempt and not disheveled Course Course Course Narrative: This is an RME performed by Katheryn Uribe, [employer]: Additional HPI, ROS, PE not included below will be deferred to primary provider. Patient is a 59-year-old female who presents to the emergency department for evaluation of acute on chronic left lower back pain that radiates down her leg. She admits to a longstanding history of this and has underwent surgery in the past with rods and screws to the lumbar spine through [facility] about 5 years ago. She does admit that the onset of this exacerbation was approximately 1 month ago, and does admit to a fall around this time. Denies bladder bowel dysfunction/incontinence, saddle paresthesias. Has been taking diclofenac and gabapentin as well as Tylenol without any improvement. Plan: XR, placed in waiting room pending bed availability Medications Administered Discontinued Medications Generic Name Dose Route Start Last Admin Trade Name Freq PRN Reason Stop Dose Admin Ketorolac Tromethamine 30 mg 08/26/24 15:13 08/26/24 15:37 Ketorolac Tromethamine 30 Mg/Ml Vial IM 08/26/24 15:14 30 mg ONCE ONE Administration Oxycodone HCl 5 mg 08/26/24 15:13 08/26/24 15:37 Oxycodone Hcl Immed Release 5 Mg Tablet PO 08/26/24 15:14 5 mg ONCE ONE Administration Prednisone 40 mg 08/26/24 15:13 08/26/24 15:37 Prednisone 20 Mg Tablet PO 08/26/24 15:14 40 mg ONCE ONE Administration Medical Decision Making Medical Decision Making [facility] Narrative: See 1-year-old female history of chronic back pain presents to ED for back pain exacerbation without any trauma. Patient denies any urinary/bowel incontinence. Patient states no relief with diclofenac and gabapentin at home. Not suspecting cauda equinus, epidural abscess, kidney stones, osteomyelitis, UTI, hydronephrosis, pyelonephritis. X-ray shows lumbar radiculopathy. We will give Toradol oxycodone and prednisone. Patient explained worrisome signs and informed to return to the ED immediately. Differential Diagnosis Differential Diagnoses: The differential diagnosis associated with the presentation includes (Chronic back pain, fracture, diloscation,) Admission/Observation Consideration of admission/observation: Escalation of care including admission/observation considered Independent Interpretation I performed an independent interpretation of an: Plain X-Ray Radiology Impression Discussion of test interpretation with radiology: I have reviewed the radiologist's reading. Radiologist Impression: XR/XR lumbar spine 2-3V IMPRESSION: 1. Posterior stabilization hardware at L4-L5 and L5-S1 without evidence of hardware complication. 2. Grade 1 retrolisthesis of L1 on L2 and multilevel degenerative disc disease and facet arthropathy, unchanged. Electronically signed by: Luc Lieberman MD 08/26/2024 01:29 PM [employer] Independent Historian Clinical information obtained from an independent historian. History obtained from or confirmed by: Other (patinet) External Record Review External record reviewed: Other (prior visits) Prescription Management I considered prescription management with: Pain Medication Discharge Plan Discharge Clinical Impression: Lumbar radiculopathy Patient Disposition: Home, Self-Care Instructions: Lumbar Radiculopathy (ED) Additional Instructions: You will need follow-up with your primary care provider for referral to physical therapy and possible maybe repeat MRI. Return to the ED immediately for worsening back pain, inability to walk, urinary/bowel incontinence, we akness/paralysis of lower extremities, dysuria, hematuria, flank pain, fever, chills, nausea, vomiting, abdominal pain, or any other concerning symptoms. XR/XR lumbar spine 2-3V IMPRESSION: 1. Posterior stabilization hardware at L4-L5 and L5-S1 without evidence of hardware complication. 2. Grade 1 retrolisthesis of L1 on L2 and multilevel degenerative disc disease and facet arthropathy, unchanged. Electronically signed by: Luc Lieberman MD 08/26/2024 01:29 PM [email or web address] RP Prescriptions: New prednisone 20 mg tablet 40 mg PO DAILY 5 Days Qty: 10 0RF oxycodone 5 mg tablet 5 mg PO Q8H PRN (Reason: pain) 3 Days Qty: 9 0RF Rx Instructions: Partial Fill upon patient request. No Action tamsulosin 0.4 mg capsule 0.4 mg PO DAILY@1700 90 Days Qty: 90 1RF albuterol sulfate 2.5 mg /3 mL (0.083 %) Solution For Nebulization 2.5 mg INHALATION Q6-8H PRN (Reason: Shortness Of Breath) fluticasone propion-salmeterol [Advair Diskus] 250-50 mcg/dose blister with device 1 inh INHALATION BID valacyclovir 1 gram Tablet 2,000 mg PO BID acetaminophen 500 mg tablet 500 mg PO Q12H PRN (Reason: pain) diphenhydramine HCl [Banophen] 25 mg capsule 25 - 50 mg PO BEDTIME diclofenac potassium 50 mg tablet 50 mg PO BID gabapentin 300 mg capsule 300 mg PO TID fluticasone propionate 50 mcg/actuation spray,suspension 2 spray intranasal BID omega 0-iup-xma-fish oil [Fish Oil] 1,000 mg (120 mg-180 mg) Capsule 1 cap PO DAILY albuterol sulfate 90 mcg/actuation HFA aerosol inhaler 2 puff inhalation Q4-6H PRN (Reason: shortness of breath or wheezing) multivitamin Tablet 1 tab PO DAILY escitalopram oxalate 5 mg tablet 5 mg PO QAM lidocaine [Lidoderm] 5 % adhesive patch,medicated 1 - 2 patch topical Q12H PRN (Reason: pain) montelukast 10 mg tablet 10 mg PO BEDTIME omeprazole 20 mg capsule,delayed release(DR/EC) 20 mg PO DAILY zolpidem 10 mg tablet 10 mg PO BEDTIME PRN (Reason: Insomnia) hydrochlorothiazide 25 mg tablet 25 mg PO DAILY (DME) walker Misc See Rx Instructions .ROUTE .MEDSUPPLY Qty: 1 0RF Rx Instructions: Folding front wheeled walker Referrals: Tye Epstein MD, PhD [Physician] - (Lumbar radiculopathy) Interventions: ED Discharge Assessment Last Done: 08/26/24 16:00 Discharge Date/Time: 08/26/24 16:10 Print Language: Malay
[2024-08-26 12:41] VITALS: BP 127/67; PULSE 54; RESP 16; TEMP 36.6; O2SAT 96
[2024-08-26 14:29] VITALS: BP 134/62; PULSE 66; RESP 16; TEMP 36.8; O2SAT 95
[2024-08-26] MEDS: predniSONE 20 MG TABLET 40 MG PO (15:37)
[2024-08-26] MEDS: Ketorolac Tromethamine 30 MG/ML VIAL IM (15:37)
[2024-08-26] MEDS: oxyCODONE HCl Immed Release 5 MG TABLET PO (15:37)
[2024-08-26 16:00] VITALS: BP 138/56; PULSE 78; RESP 16; TEMP 36.4; O2SAT 99
== END 2024-08-26 16:10 | disposition home or self-care (01) ==
PROVIDERS: Emergency Provider Student in an Organized Health Care Education/Training Program; PCP Internal Medicine
DX: M54.16 Radiculopathy, lumbar region (principal); M54.9 Dorsalgia, unspecified; I10 Essential (primary) hypertension; J44.9 Chronic obstructive pulmonary disease, unspecified; J45.40 Moderate persistent asthma, uncomplicated; Z79.899 Other long term (current) drug therapy
CPT/HCPCS: 72100; 96372; 99283; 99284; J1885

== ENCOUNTER 2024-08-29 11:54 | Outpatient (REF) | payer MEDICAID, SELFPAY | END 2024-08-29 11:55 | disposition home or self-care (01) | LOC: HO.HOSX 11:54 | PROVIDERS: Visit Provider Orthopaedic Surgery | DX: M25.561 Pain in right knee (principal); M25.562 Pain in left knee | CPT/HCPCS: 73560; 73562; 99212 ==

== ENCOUNTER 2024-08-29 13:43 | Outpatient (AMB) | payer MEDICAID, SELFPAY ==
--- NOTE | 2024-08-29 13:44 | A.OFFVIS_ITS ---
Vital Signs 08/29/24 14:01 Height 5 ft 3 in Weight 162 lb BMI 28.7 Intake Visit Reasons: OV- RT knee pain TKA revision 02/03/24 NE Intake Note: Miguelina a 59 year old female who presents today with her spouse for a post operative visit s/p right TKA revision(PFA in setting of prior unresurfeced patella) on 02/03/24. Allergies No Known Allergies Allergy (Verified 08/26/24 11:36) HPI HPI OV- RT knee pain TKA revision 02/03/24 NE: Details: Miguelina a 59 year old female who presents today with her spouse for a post operative visit s/p right TKA revision(PFA in setting of prior unresurfeced patella) on 02/03/24. She feels better than before the surgery but still has occasional pain with stairs and with activity. Denies fevers and chills and there is no effusion. [facility] Medical History Right-sided ischial pain Tubular adenoma of colon Hematuria Dysuria Overweight Varicose vein of leg Chronic tension-type headache, not intractable Neuropathic pain Hyperlipidemia Carpal tunnel syndrome Cervical radiculopathy Depressive disorder Diverticulosis HTN (hypertension) Osteoarthritis Asthma Essential hypertension Low back pain Pre-diabetes Seasonal allergies GERD (gastroesophageal reflux disease) COVID-19 vaccine series completed Post-COVID syndrome COPD (chronic obstructive pulmonary disease) History of COVID-19 Arthritis Anxiety Depression Hesitancy of micturition Moderate persistent asthma Surgical History Hx of total knee arthroplasty History of right knee joint replacement Hx of shoulder surgery History of carpal tunnel surgery of right wrist H/O colonoscopy History of total right knee replacement History of back surgery History of total left knee replacement (~06/2020) Family History Mother Heart disease Sister HTN (hypertension) Sister HTN (hypertension) Diabetes Maternal Grandmother Cervical cancer Social History Household Members: Spouse Housing: House Are you a primary healthcare risk control consultant to a significant other at home: No Do you presently have visiting nurse or other home services: No Alcohol intake: never Comment: in bathroom, aware of trip hazard Patient Tobacco Use Status: Former Tobacco user Tobacco use type: Cigarette Second Hand Smoke Exposure: No Substance Use Type: Marijuana Advance Directives Date on File: 12/17/21 service: No Current occupational status: unemployed Current occupation: Right Handed Gender identity: Female Physical Exam Vital Signs: BMI result Body Mass Index 28.7 Extrem Other: Well-healed incision. Full range of motion. No effusion. No pain with palpation. Results Reviewed Results Reviewed: I personally reviewed relevant radiographs. Stable appearance right resurface patella with distal patellar osteophyte but stable. Assessment & Plan Assessment & Plan (1) Status post total right knee replacement: Code(s): Z96.651 - Presence of right artificial knee joint Category: Surgical Plan: Small bony ossicle of the distal patella that was likely present postoperatively although to a lesser extent. This is not really causing her pain or consistent with her symptomatology. I recommend she continue range of motion. No intervention warranted at this time. Orders: Orders 2 XR knee RT 3V 08/29/24 M25.561 - Pain in right knee XR knee LT 1V 08/29/24 M25.569 - Pain in unspecified knee Coding Level of Care Code Est Pt Level 3 (69005) Diagnoses Status post total right knee replacement Z96.651
[2024-08-29 14:01] VITALS: BMI 28.7
== END 2024-08-29 14:39 | disposition home or self-care (01) ==
PROVIDERS: PCP Internal Medicine; Visit Provider Orthopaedic Surgery
DX: Z47.1 Aftercare following joint replacement surgery (principal); Z96.651 Presence of right artificial knee joint
CPT/HCPCS: 99212

== ENCOUNTER 2024-09-02 14:48 | Outpatient (AMB) | payer MEDICAID, SELFPAY ==
--- NOTE | 2024-09-02 15:42 | HO.SPINEOV ---
Intake Visit Reasons: ED f/u Intake Note: Mrs. Julien is here today to f/u after an ED visit. 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 The patient has an extensive lumbar history, with 3 level fusion from L3-S1. Over the last 6 months or so she has been having a increase in back pain on the left side shooting down her left leg. She has been trying to just work around it and hope it would go away. Her back surgeries were done many many years ago and she has not followed up with a back surgeon quite some time. She has been trying [id number] pain medications like Tylenol and diclofenac without much relief. She is starting to feel like her leg is weak. It is very painful and she is unable to sleep at night or walk for more than a few minutes. On my exam she is uncomfortable standing, has tenderness over the lumbar spine. She has a foot long well-healed incision on her midline lumbar spine. She has absent reflexes bilaterally at the patella, straight leg raise at about 45 degrees and some mild iliopsoas weakness. Her x-rays done in the emergency room a few weeks ago show that she has a degenerative listhesis at L2-3. I suspect this is where her issues are coming from, I would like an lumbar MRI with and without tracy and to see her back in the office. Total amount of time spent in this visit was 20 minutes in discussion of symptoms, lumbar imaging results and subsequent plan of care Tr Epstein MD,PhD [facility] Orders: Orders MR lumbar spine wo/w con Today M54.9 - Dorsalgia, unspecified Coding Level of Care Code Est Pt Level 3 (22235) Diagnoses Back pain M54.9
== END 2024-09-02 16:20 | disposition home or self-care (01) ==
PROVIDERS: PCP Internal Medicine; Visit Provider Physician Assistant
DX: M54.9 Dorsalgia, unspecified (principal)
CPT/HCPCS: 99213

== ENCOUNTER → 2024-09-02 14:48 | Outpatient (BNVA) | payer MEDICAID, SELFPAY | PROVIDERS: PCP Internal Medicine; Visit Provider Physician Assistant | DX: M54.9 Dorsalgia, unspecified (principal) | CPT/HCPCS: 99212 ==

== ENCOUNTER 2024-09-23 13:43 | Outpatient (REF) | payer MEDICAID, SELFPAY | END 2024-09-23 13:44 | disposition home or self-care (01) | LOC: HO.HOSX 13:43 | PROVIDERS: PCP Internal Medicine; Visit Provider Physician Assistant | DX: M54.9 Dorsalgia, unspecified (principal); Z98.1 Arthrodesis status | CPT/HCPCS: 72110; 99212 ==

== ENCOUNTER 2024-09-23 13:43 | Outpatient (AMB) | payer MEDICAID, SELFPAY ==
--- NOTE | 2024-09-23 13:52 | A.SPINEOV_ITS ---
Intake Visit Reasons: MRI f/u and surgical discussion Intake Note: Ms. Julien is here today to F/u on the results to her MRI Rn Gyn Required: Yes Rn Gyn Name: Tablet Allergies No Known Allergies Allergy (Verified 09/23/24 13:53) Assessment & Plan Assessment & Plan (1) Back pain: Code(s): M54.9 - Dorsalgia, unspecified Category: Medical Plan Mrs Julien was seen in the office today, I used the specialty development consultant phone iPad with specialty development consultant [phone]. She has had chronic back pain in the middle center of the back more on the left side radiating upward. She also has a component of left leg radiculopathy which radiates down to her calf. She had a previous fusion from L3-S1. These were done at [facility] with . She has been through numerous rounds of postoperative injections and physical therapy since her last surgery and her pain only continues to escalate. Dr. Epstein and I reviewed her MRI done at [facility], CT done at [facility] in her standing x-rays done here in the office today. 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 This would include L2-3, L1-2 and T12 region. There are signs of degenerative endplate sclerosis, Modic endplate changes and a spondylolisthesis at L2-3. Certainly these things could be involved with her chronic back pain, but there is no way to know 100% if this is a cause. In order to treat this with surgery it would involve fusing all of the above- mentioned segments. Specifically the surgery would be an oblique lumbar interbody fusion L2-3, trans Kambin lumbar interbody fusion L1-2 and T12-L1, as well as pedicle screws at T11 to stabilize the thoracolumbar junction. The only thing is, we have no way to guarantee significant success with her chronic pain. In fact there is a chance we could give her more pain by fusing all of her lumbar spine [address] Epstein would only offer this to the patient if she absolutely was in intractable chronic pain that caused her profound impact on her quality of life. I urged her to take some time to think about this and to have an open discussion with her about what this would mean [facility] in terms of recovery, her overall spine health etc.. I would like to see her back in a few months and we can re-evaluate see where she is at. I did discuss the possibility of a spinal cord stimulator but this was already trialed and it made her pain worse. Total amount of time spent in this visit was 20 minutes in discussion of symptoms, lumbar imaging results and subsequent plan of care Tr Epstein MD,PhD [facility] Orders: Orders XR lumbar spine 4V min Today M54.9 - Dorsalgia, unspecified Coding Level of Care Code Est Pt Level 3 (20068) Diagnoses Back pain M54.9
== END 2024-09-23 15:26 | disposition home or self-care (01) ==
PROVIDERS: PCP Internal Medicine; Visit Provider Physician Assistant
DX: M54.9 Dorsalgia, unspecified (principal)
CPT/HCPCS: 99213

== ENCOUNTER 2024-10-20 13:04 | Outpatient (AMB) | payer MEDICAID, SELFPAY ==
[2024-10-20 13:10] VITALS: BP 133/65; PULSE 70; O2SAT 97; BMI 28.9
--- NOTE | 2024-10-20 13:10 | MHC.OFFVIS ---
Vital Signs 10/20/24 13:10 Height 5 ft 3 in Weight 163 lb 4 oz BMI 28.9 BP 133/65 Blood Pressure Location Lt brachial Position Sitting Pulse 70 Pulse Source Pulse Oximeter Pulse Oximetry (%) 97 Oxygen Delivery Method Room Air Intake Visit Reasons: Chronic midline low back pain Allergies No Known Allergies Allergy (Verified 10/20/24 13:14) HPI HPI Chronic midline low back pain: Details: Patient is a pleasant 59 years old Lao speaking female with history of rotator cuff impingement, chronic back pain with h/o lumbar fusion L3-S1 in 2003, posterior neural foraminotomy at L2-L3 [place] [address] Bailey, varicose veins, mild persistent asthma, chronic neuropathy, osteoarthritis, cervical radiculopathy, chronic headaches, depression, h/o bilateral TKR, chronic left shoulder pain, presents today for initial evaluation for chronic low back pain with radiculopathy. Denies any recent trauma, injury or falls. Reports history of multiple surgeries and falls. Patient reports midline low back pain with radiation into both lower lower extremities predominantly posteriorly but also experiences significant bilateral groin pain, worse on the right side with SLR testing. She reports her back pain is also radiates upward and into her left flank and partially left side of middle of abdomen. Patient was previously followed by [facility] by Dr. Clint Newberry in the past and had undergone multiple injection and incomplete SCS trial in the past which she attributes to miscommunication due to language barrier. Per referral notes, patient was admitted to [facility] 11/13/22-11/20/22 due to worsening low back pain with radiation to her right thigh and right leg after an thoracic spinal stimulation procedure which was aborted due to severe pain during the procedure. She was treated with gabapentin, diazepam and hydromorphine. She is willing to undergo repeat SCS trial in the near future in our office but requests epidural steroid injection to alleviate her radicular symptoms. Patient was also seen at [facility] on 08/26/24 with c/o low back pain with radiculopathy. Patient was seen by [facility] providers last month and was deemed not surgical after recent lumbar spine MRI results. Per most recent Neurosurgical evaluation, patient was discussed about an oblique lumbar interbody fusion L2-3, trans Kambin lumbar interbody fusion L1-2 and T12-L1, as well as pedicle screws at T11 to stabilize the thoracolumbar junction if her back pain caused a profound impact on her quality of life. Patient is hesitant towards additional back surgery.?Pain affects her daily activities and functioning, mobility, sleep, mood, social interactions and quality of life. Patient receives Psychological counseling for chronic pain and depression through [facility]. Back pain has been resistant to physical therapy (completed 02/17/24-03/23/24), home exercise program, TENS unit, oral and topical medication and activity modifications. Denies any fever or chills, bladder or bowel dysfunction or saddle anesthesia. Reports bilateral weakness of lower extremities due to back pain, left worse than right. Oswestry Low Back Pain Disability Score=32 (severe disability) Location: Lower back pain radiates upward (more on left) and lower extremities, L>R Duration: Chronic pain, worsening for past 1-2 years Characteristics of symptom or complaint: Throbbing, shooting, stabbing, pinching, radiating, tingling, burning, sore Aggravating or associated factors: Movements, walking, standing, bending, lifting, ADLs, sleep, cold Relieving factors: Rest, heat/cold, Tylenol, NSAIDs, gabapentin, PFSH Medical History Right-sided ischial pain Tubular adenoma of colon Hematuria Dysuria Overweight Varicose vein of leg Chronic tension-type headache, not intractable Neuropathic pain Hyperlipidemia Carpal tunnel syndrome Cervical radiculopathy Depressive disorder Diverticulosis HTN (hypertension) Osteoarthritis Asthma Essential hypertension Low back pain Pre-diabetes Seasonal allergies GERD (gastroesophageal reflux disease) COVID-19 vaccine series completed Post-COVID syndrome COPD (chronic obstructive pulmonary disease) History of COVID-19 Arthritis Anxiety Depression Hesitancy of micturition Moderate persistent asthma Surgical History Hx of total knee arthroplasty History of right knee joint replacement Hx of shoulder surgery History of carpal tunnel surgery of right wrist H/O colonoscopy History of total right knee replacement History of back surgery History of total left knee replacement (~06/2020) Family History Mother Heart disease Sister HTN (hypertension) Sister HTN (hypertension) Diabetes Maternal Grandmother Cervical cancer Social History Household Members: Spouse Housing: House Are you a primary acute care surgeon to a significant other at home: No Do you presently have visiting nurse or other home services: No Alcohol intake: never Comment: in bathroom, aware of trip hazard Patient Tobacco Use Status: Former Tobacco user Tobacco use type: Cigarette Second Hand Smoke Exposure: No Substance Use Type: Marijuana Advance Directives Date on File: 12/17/21 service: No Current occupational status: unemployed Current occupation: Right Handed Gender identity: Female Review of Systems Const All systems reviewed & are unremarkable except as noted in HPI and below Physical Exam Vital Signs: Last Vital Signs Pulse 70 10/20/24 13:10 BP 133/65 10/20/24 13:10 Pulse Ox 97 10/20/24 13:10 Oxygen Delivery Method Room Air 10/20/24 13:10 BMI result Body Mass Index 28.9 General: Appears afebrile. Moderate distress due to back pain. Alert and oriented. Mood and affect appropriate. Pleasant. Follows and participates in conversation appropriately. Respiratory effort is unlabored. No cough. Able to transition from sit to stand unassisted. Reports moderate-severe increase in lower back pain and cramping in her toes, L>R with toe standing, looses balance with heel standing due to increased back pain. General: Yes no CVA tenderness Back/Spine/Pelvis Other: Unable to perform lumbar ROM due to pain. Antalgic gait, no limping. Demonstrates 4/5 strength of quadriceps bilaterally as well as flexion/dorsiflexion of bilateral feet against resistance. 2+ pedal pulses bilaterally. Straight leg rise with dorsiflexion positive bilaterally. Diminished patellar and achilles reflexes bilaterally. Facet loading test positive bilaterally. Abbey sign positive bilaterally. SLR testing reproduces moderate-severe groin pain, right worse than left. Valsalva maneuver is positive. Back: no CVA tenderness Cervical Spine: cervical ROM normal, cervical muscular tenderness, pain with cervical ROM and No Cervical spine tenderness Thoracic/Lumbar Spine: thoracic and lumbar spine normal to inspection, Thoracic/lumbar spine scar(s), Lasegue's sign positive bilateral and localized, pain with thoraco-lumbar ROM, paraspinal muscle tenderness, thoraco-lumbar ROM limited, thoracic spinal tenderness (mid to lower thoracic) and lumbar spinal tenderness (L4-S1) Pelvis: buttock tenderness bilaterally and sciatic notch tenderness bilateral Sacroiliac joints: bilaterally tender to palpation Results Reviewed Results Reviewed: MR SPINE LUMBAR w + wo CONTRAST 09/16/24 at [facility] INDICATION: Dorsalgia. Lower back pain intermittently radiating down right leg for two years. Additional History: Lumbar fusion five years ago. TECHNIQUE: Unenhanced and enhanced multiplanar, multisequence MR imaging of the lumbar spine. Dotarem 15 mL was administered intravenously. No contrast waste documented. COMPARISON: None Available. FINDINGS: Straightening of normal lumbar lordosis. Approximate 5 mm degenerative retrolisthesis of T12 on L1. Approximate 5 mm degenerative anterolisthesis of L2 on L3. Postoperative changes of L3, L4 and L5 fusion with bilateral pedicle screws L3-L4 and laminectomies at these levels. Loss of intervertebral disc space height throughout the remainder the examination with endplate Modic type II changes and facet arthrosis. Conus and cauda equina of normal appearance. The conus tip T12-L1. Question a disc protrusion and extrusion at the level of T11. This is only partially visualized on this lumbar examination. Question a moderate associated central stenosis and contribution to moderate LEFT foraminal narrowing. Examination through the T12-L1 intervertebral level revealing facet arthrosis. Posterior disc osteophyte. Approximate 5 mm degenerative retrolisthesis of T12 on L1. There is a moderate central stenosis. Bilateral lateral recess encroachment. Mild LEFT foraminal narrowing. Moderate RIGHT foraminal narrowing. Examination through the L1-L2 intervertebral level revealing facet arthrosis. Prominence of ligamentum flavum. Posterior disc osteophyte. Moderate central stenosis. Bilateral lateral recess encroachment. Mild bilateral foraminal narrowing. Examination through the L2-L3 intervertebral level revealing facet arthrosis. Prominence of the ligamentum flavum. Apparent RIGHT laminectomy. Mild central stenosis. Bilateral lateral recess encroachment. No significant foraminal narrowing. Examination through the fused L3-L4 intervertebral level without central stenosis or foraminal narrowing. Examination through the fused L4-L5 intervertebral level without central stenosis or significant foraminal narrowing. Examination through the fused L5-S1 intervertebral level without central stenosis or foraminal narrowing. IMPRESSION: Straightening of normal lumbar lordosis. Approximate 5 mm degenerative retrolisthesis of T12 on L1. Approximate 5 mm degenerative anterolisthesis of L2 on L3. Postoperative changes of L3, L4 and L5 fusion with bilateral pedicle screws L3 and L4 and laminectomies at these levels. Loss of intervertebral disc space height throughout the remainder the examination with endplate Modic type II changes and facet arthrosis. The conus tip T12-L1. Question a disc protrusion and extrusion at the level of T11. This is only partially visualized on this lumbar examination. Question a moderate associated central stenosis and contribution to moderate LEFT foraminal narrowing. Consider dedicated evaluation of the lower thoracic spine with and without the use of intravenous contrast. T12-L1 facet arthrosis. Posterior disc osteophyte. Approximate 5 mm degenerative retrolisthesis of T12 on L1. There is a moderate central stenosis. Bilateral lateral recess encroachment. Mild LEFT foraminal narrowing. Moderate RIGHT foraminal narrowing. L1-L2 facet arthrosis. Prominence of ligamentum flavum. Posterior disc osteophyte. Moderate central stenosis. Bilateral lateral recess encroachment. Mild bilateral foraminal narrowing. L2-L3 facet arthrosis. Prominence of the ligamentum flavum. Apparent RIGHT laminectomy. Mild central stenosis. No significant foraminal narrowing. Examination through the postoperative levels without central stenosis or significant foraminal narrowing. XR LUMBOSACRAL SPINE 08/26/24 CLINICAL INFORMATION: Left-sided back pain. Prior surgery. COMPARISON: Most recent lumbar spine radiographs dated 10/31/2023. TECHNIQUE: Three views of the lumbosacral spine. FINDINGS: Redemonstration of 6 nonrib-bearing lumbar-type vertebral bodies with lumbarization of the S1 vertebral body. Posterior stabilization hardware redemonstrated at L4-L5 with intervertebral disc hardware at L5-S1 and S1-S2. No evidence of hardware complication. Grade 1 retrolisthesis of L1 on L2 is unchanged. Multilevel degenerative disc disease with facet arthropathy, unchanged. No acute fracture. No new lytic or blastic osseous lesion. Surgical clips. IMPRESSION: 1. Posterior stabilization hardware at L4-L5 and L5-S1 without evidence of hardware complication. 2. Grade 1 retrolisthesis of L1 on L2 and multilevel degenerative disc disease and facet arthropathy, unchanged. Assessment & Plan Assessment & Plan (1) Lumbar post-laminectomy syndrome: Code(s): M96.1 - Postlaminectomy syndrome, not elsewhere classified Category: Medical (2) Lumbar spinal stenosis: Code(s): M48.061 - Spinal stenosis, lumbar region without neurogenic claudication Category: Medical (3) Degenerative thoracic spinal stenosis: Code(s): M48.04 - Spinal stenosis, thoracic region Category: Medical (4) Thoracic radiculopathy: Code(s): M54.14 - Radiculopathy, thoracic region Category: Medical (5) Spondylolisthesis of thoracolumbar region: Code(s): M43.15 - Spondylolisthesis, thoracolumbar region Category: Medical (6) Chronic low back pain: Code(s): M54.50 - Low back pain, unspecified; G89.29 - Other chronic pain Category: Medical Plan Discussed interventional treatments for chronic back pain with spinal stenosis and radicular components as well as post-laminectomy syndrome. We will proceed with Caudal NIC with Catheter under sedation and fluoroscopy for radicular pain. Expectations, risks and benefits were reviewed. Patient is aware she will be contacted to schedule this procedure. Medical release request sent to [facility] for previous injections and procedures. We reviewed neuromodulation procedures today including SCS trial vs implant. Patient is willing to reconsider this in the near future. Informative pamphlets were provided to patient today. Thoracic spine MRI to evaluate moderate associated central stenosis and contribution to moderate LEFT foraminal narrowing at T11-T12 noted on recent lumbar spine and recommendation to consider thoracic MRI with and without contrast. Patient reports radicular symptoms with mid back pain radiating into her left side and left flank areas. Short script sent for acute on chronic back pain with radicular symptoms. Patient report prior use of oxycodone without any side effects. She is aware to continue to monitor for any side effects. Precautions, safety and storage of medication were discussed with patient and her . Narcan sent today as well. All questions were answered and the patient is in agreement of plan. Follow-up after injection/MRI results and sooner as needed. Orders: Orders MR thoracic spine wo/w con Today M43.15 - Spondylolisthesis, thoracolumbar region, M48.04 - Spinal stenosis, thoracic region, M54.14 - Radiculopathy, thoracic region Medications: New naloxone 4 mg/actuation (Narcan) spray 1 dose into ONE nostril; alternate nostrils w each dose until help arrives 4 mg intranasal Q2M PRN 2 ea 0RF opioid overdose M96.1 - Postlaminectomy syndrome, not elsewhere classified oxycodone Partial Fill upon patient request. 5 mg PO Q8H 10 days PRN 30 tabs 0RF pain (scale score 7-10) M48.061 - Spinal stenosis, lumbar region without neurogenic claudication, M96.1 - Postlaminectomy syndrome, not elsewhere classified Coding Level of Care Code New Pt Level 4 (55546) Complex EM visit Add On G2211 Diagnoses Lumbar post-laminectomy syndrome M96.1 Lumbar spinal stenosis M48.061 Degenerative thoracic spinal stenosis M48.04 Thoracic radiculopathy M54.14 Spondylolisthesis of thoracolumbar region M43.15 Chronic low back pain M54.50; G89.29
== END 2024-10-20 13:54 | disposition home or self-care (01) ==
PROVIDERS: PCP Internal Medicine; Visit Provider Nurse Practitioner Family
DX: M96.1 Postlaminectomy syndrome, not elsewhere classified (principal); M48.061 Spinal stenosis, lumbar region without neurogenic claudication; M48.04 Spinal stenosis, thoracic region; M54.14 Radiculopathy, thoracic region; M43.15 Spondylolisthesis, thoracolumbar region; M54.50 Low back pain, unspecified; G89.29 Other chronic pain
CPT/HCPCS: 99204

== ENCOUNTER → 2024-10-20 13:04 | Outpatient (BNVA) | payer MEDICAID, SELFPAY | PROVIDERS: PCP Internal Medicine; Visit Provider Nurse Practitioner Family | DX: M96.1 Postlaminectomy syndrome, not elsewhere classified (principal); M48.061 Spinal stenosis, lumbar region without neurogenic claudication; M48.04 Spinal stenosis, thoracic region; M54.14 Radiculopathy, thoracic region; M43.15 Spondylolisthesis, thoracolumbar region; M54.50 Low back pain, unspecified; G89.29 Other chronic pain | CPT/HCPCS: 99212 ==

== ENCOUNTER 2024-10-25 17:20 | Outpatient (REF) | payer MEDICAID, SELFPAY ==
[2024-10-25 17:31] LABS: Appearance Urine Clear; Color Urine Yellow; Glucose Urine UA Negative (Negative); Leukocyte Esterase Urine Negative (Negative); Nitrite Urine Negative (Negative); PH 5.5 (5.0-9.0); Specific Gravity - Urine 1.015 (1.005-1.025); Urine Blood Negative (Negative); Urine Ketones Negative (Negative); Urine Protein Negative (Neg-Trace)
[2024-10-25 17:33] LABS: Bacteria Urine None Seen (None Seen); Hyaline Casts Urine 0-2 /LPF (0-2); RBC Urine 0-2 /HPF (0-2); Squamous Epithelial Cell Urine 0-2 /HPF (0-2); WBC Urine 0-5 /HPF (0-5)
== END 2024-10-25 17:21 | disposition home or self-care (01) ==
LOC: HO.HHCLNP 17:20
PROVIDERS: Visit Provider Family Medicine
DX: R39.9 Unspecified symptoms and signs involving the genitourinary system (principal)
CPT/HCPCS: 81001

== ENCOUNTER 2024-11-08 15:06 | Outpatient (AMB) | payer MEDICAID, SELFPAY ==
--- NOTE | 2024-11-08 15:15 | A.OFFVIS_ITS ---
Vital Signs 11/08/24 15:20 Height 5 ft 3 in Weight 163 lb BMI 28.9 BP 144/70 H Blood Pressure Location Lt brachial Position Sitting Pulse 61 Pulse Source Pulse Oximeter Intake Visit Reasons: Discuss MRI Results Intake Note: Pain today 07/21 Sanding Machine Tender Automatic Required: Yes Sanding Machine Tender Automatic Language: Plant Pathologist Services: Sanding Machine Tender Automatic Offered & Declined Sanding Machine Tender Automatic Name: Spouse Brandyn Accompanied by: Spouse Allergies No Known Allergies Allergy (Verified 11/08/24 15:21) HPI Comments Details: Patient presents today for follow up to discuss recent thoracic spine MRI results. Patient reports worsening mid and low back pain with radiculopathy. She reports recent fall over 2 weeks ago when she fell on ice and reports increased back pain. We are awaiting insurance approval for Caudal NIC. Thoracic spine MRI results were discussed with patient and her Brandyn who she requested as mortgage specialist. We will proceed with Oncology evaluation to further evaluate T11 thoracic epidural lesion. Patient became emotionally tearful as her brother from liver cancer. She is aware lesion might represent disc protrusion and extrusion or fibrous calcified lesion. Denies any recent cough, cold, infection, fever or any significant changes in medical history since last office visit. PRIOR: Patient is a pleasant 59 years old Portuguese speaking female with history of rotator cuff impingement, chronic back pain with h/o lumbar fusion L3-S1 in 2003, posterior neural foraminotomy at L2-L3 [place] [address] Bailey, varicose veins, mild persistent asthma, chronic neuropathy, osteoarthritis, cervical radiculopathy, chronic headaches, depression, h/o bilateral TKR, chronic left shoulder pain, presents today for initial evaluation for chronic low back pain with radiculopathy. Denies any recent trauma, injury or falls. Reports history of multiple surgeries and falls. Patient reports midline low back pain with radiation into both lower lower extremities predominantly posteriorly but also experiences significant bilateral groin pain, worse on the right side with SLR testing. She reports her back pain is also radiates upward and into her left flank and partially left side of middle of abdomen. Patient was previously followed by [facility] by Dr. Clint Newberry in the past and had undergone multiple injection and incomplete SCS trial in the past which she attributes to miscommunication due to language barrier. Per referral notes, patient was admitted to [facility] 11/13/22-11/20/22 due to worsening low back pain with radiation to her right thigh and right leg after an thoracic spinal stimulation procedure which was aborted due to severe pain during the procedure. She was treated with gabapentin, diazepam and hydromorphine. She is willing to undergo repeat SCS trial in the near future in our office but requests epidural steroid injection to alleviate her radicular symptoms. Patient was also seen at [facility] on 08/26/24 with c/o low back pain with radiculopathy. Patient was seen by [facility] providers last month and was deemed not surgical after recent lumbar spine MRI results. Per most recent Neurosurgical evaluation, patient was discussed about an oblique lumbar interbody fusion L2- 3, trans Kambin lumbar interbody fusion L1-2 and T12-L1, as well as pedicle screws at T11 to stabilize the thoracolumbar junction if her back pain caused a profound impact on her quality of life. Patient is hesitant towards additional back surgery. Pain affects her daily activities and functioning, mobility, sleep, mood, social interactions and quality of life. Patient receives Psychological counseling for chronic pain and depression through [facility]. Back pain has been resistant to physical therapy (completed 02/17/24-03/23/24), home exercise program, TENS unit, oral and topical medication and activity modifications. Denies any fever or chills, bladder or bowel dysfunction or saddle anesthesia. Reports bilateral weakness of lower extremities due to back pain, left worse than right. Oswestry Low Back Pain Disability Score=32 (severe disability) Location: Lower back pain radiates upward (more on left) and lower extremities, L>R Duration: Chronic pain, worsening for past 1-2 years Characteristics of symptom or complaint: Throbbing, shooting, stabbing, pinching, radiating, tingling, burning, sore Aggravating or associated factors: Movements, walking, standing, bending, liftin g, ADLs, sleep, cold Relieving factors: Rest, heat/cold, Tylenol, NSAIDs, gabapentin, PFSH Medical History Right-sided ischial pain Tubular adenoma of colon Hematuria Dysuria Overweight Varicose vein of leg Chronic tension-type headache, not intractable Neuropathic pain Hyperlipidemia Carpal tunnel syndrome Cervical radiculopathy Depressive disorder Diverticulosis HTN (hypertension) Osteoarthritis Asthma Essential hypertension Low back pain Pre-diabetes Seasonal allergies GERD (gastroesophageal reflux disease) COVID-19 vaccine series completed Post-COVID syndrome COPD (chronic obstructive pulmonary disease) History of COVID-19 Arthritis Anxiety Depression Hesitancy of micturition Moderate persistent asthma Surgical History Hx of total knee arthroplasty History of right knee joint replacement Hx of shoulder surgery History of carpal tunnel surgery of right wrist H/O colonoscopy History of total right knee replacement History of back surgery History of total left knee replacement (~06/2020) Family History Mother Heart disease Sister HTN (hypertension) Sister HTN (hypertension) Diabetes Maternal Grandmother Cervical cancer Social History Household Members: Spouse Housing: House Are you a primary care team assistant to a significant other at home: No Do you presently have visiting nurse or other home services: No Alcohol intake: never Comment: in bathroom, aware of trip hazard Patient Tobacco Use Status: Former Tobacco user Tobacco use type: Cigarette Second Hand Smoke Exposure: No Substance Use Type: Marijuana Advance Directives Date on File: 12/17/21 service: No Current occupational status: unemployed Current occupation: Right Handed Gender identity: Female Review of Systems Const All systems reviewed & are unremarkable except as noted in HPI and below Physical Exam Vital Signs: Last Vital Signs Pulse 61 11/08/24 15:20 BP 144/70 H 11/08/24 15:20 BMI result Body Mass Index 28.9 General: Appears afebrile. Moderate distress due to back pain. Alert and oriented. Mood and affect appropriate. Pleasant. Follows and participates in conversation appropriately. Respiratory effort is unlabored. No cough. Able to transition from sit to stand unassisted. Reports moderate-severe increase in lower back pain and cramping in her toes, L>R with toe standing, looses balance with heel standing due to increased back pain. General: Yes no CVA tenderness Back/Spine/Pelvis Other: Unable to perform lumbar ROM due to pain. Antalgic gait, no limping. Demonstrates 4/5 strength of quadriceps bilaterally as well as flexion/dorsiflexion of bilateral feet against resistance. 2+ pedal pulses bilaterally. Straight leg rise with dorsiflexion positive bilaterally. Diminished patellar and achilles reflexes bilaterally. Facet loading test positive bilaterally. Abbey sign positive bilaterally. SLR testing reproduces moderate-severe groin pain, right worse than left. Valsalva maneuver is positive. Back: no CVA tenderness Cervical Spine: cervical ROM normal, cervical muscular tenderness, pain with cervical ROM, No cervical spasm and No Cervical spine tenderness Thoracic/Lumbar Spine: thoracic and lumbar spine normal to inspection, Thoracic/lumbar spine scar(s), Lasegue's sign positive bilateral and localized, pain with thoraco-lumbar ROM, paraspinal muscle tenderness, thoraco-lumbar ROM limited, thoracic spinal tenderness (mid to lower thoracic) and lumbar spinal tenderness (L4-S1) Pelvis: buttock tenderness bilaterally and sciatic notch tenderness bilateral Sacroiliac joints: bilaterally tender to palpation Extrem General: Yes capillary refill normal, Yes no clubbing, cyanosis or edema and Yes no calf tenderness Results Reviewed Results Reviewed: MR THORACIC w + wo CONTRAST 11/01/24 INDICATION: Spinal stenosis, thoracic region. Spondylosis, thoracolumbar region. TECHNIQUE: Unenhanced and enhanced multiplanar, multisequence MR imaging of the thoracic spine. Dotarem 15 mL was administered intravenously. No contrast waste documented. COMPARISON: None available. FINDINGS: Normal alignment is demonstrated. Vertebral heights are well maintained. Bone marrow signal is within normal limits, and no suspicious osseous lesion is identified. Thoracic cord demonstrates normal course, caliber, and signal characteristics. No epidural fluid collection or hematoma is identified. There is a stable anterior epidural enhancing T1 hypointense and T2 hyperintense lesion at T11 impressing upon the anterior aspect of the thecal sac and thoracic cord along with hypertrophic facet arthropathy and ligamentum flavum hypertrophy causing moderate T11 central canal stenosis. Neural foramina are patent throughout. Visualized chest and abdomen are grossly unremarkable. IMPRESSION: 1.There is a stable anterior epidural enhancing lesion at the level of T11 along with hypertrophic facet arthropathy and ligamentum flavum hypertrophy causing moderate T11 central canal stenosis. Imaging characteristics suggest either disc fragment in the epidural space versus a fibrous calcified lesion. 2.No focal disc herniation or exiting nerve root encroachment seen. MR SPINE LUMBAR w + wo CONTRAST 09/16/24 at [facility] INDICATION: Dorsalgia. Lower back pain intermittently radiating down right leg for two years. Additional History: Lumbar fusion five years ago. TECHNIQUE: Unenhanced and enhanced multiplanar, multisequence MR imaging of the lumbar spine. Dotarem 15 mL was administered intravenously. No contrast waste documented. COMPARISON: None Available. FINDINGS: Straightening of normal lumbar lordosis. Approximate 5 mm degenerative retrolisthesis of T12 on L1. Approximate 5 mm degenerative anterolisthesis of L2 on L3. Postoperative changes of L3, L4 and L5 fusion with bilateral pedicle screws L3-L4 and laminectomies at these levels. Loss of intervertebral disc space heig ht throughout the remainder the examination with endplate Modic type II changes and facet arthrosis. Conus and cauda equina of normal appearance. The conus tip T12-L1. Question a disc protrusion and extrusion at the level of T11. This is only partially visualized on this lumbar examination. Question a moderate associated central stenosis and contribution to moderate LEFT foraminal narrowing. Examination through the T12-L1 intervertebral level revealing facet arthrosis. Posterior disc osteophyte. Approximate 5 mm degenerative retrolisthesis of T12 on L1. There is a moderate central stenosis. Bilateral lateral recess encroachment. Mild LEFT foraminal narrowing. Moderate RIGHT foraminal narrowing. Examination through the L1-L2 intervertebral level revealing facet arthrosis. Prominence of ligamentum flavum. Posterior disc osteophyte. Moderate central stenosis. Bilateral lateral recess encroachment. Mild bilateral foraminal narrowing. Examination through the L2-L3 intervertebral level revealing facet arthrosis. Prominence of the ligamentum flavum. Apparent RIGHT laminectomy. Mild central stenosis. Bilateral lateral recess encroachment. No significant foraminal narrowing. Examination through the fused L3-L4 intervertebral level without central stenosis or foraminal narrowing. Examination through the fused L4-L5 intervertebral level without central stenosis or significant foraminal narrowing. Examination through the fused L5-S1 intervertebral level without central stenosis or foraminal narrowing. IMPRESSION: Straightening of normal lumbar lordosis. Approximate 5 mm degenerative retrolisthesis of T12 on L1. Approximate 5 mm degenerative anterolisthesis of L2 on L3. Postoperative changes of L3, L4 and L5 fusion with bilateral pedicle screws L3 and L4 and laminectomies at these levels. Loss of intervertebral disc space height throughout the remainder the examination with endplate Modic type II changes and facet arthrosis. The conus tip T12-L1. Question a disc protrusion and extrusion at the level of T11. This is only partially visualized on this lumbar examination. Question a moderate associated central stenosis and contribution to moderate LEFT foraminal na rrowing. Consider dedicated evaluation of the lower thoracic spine with and without the use of intravenous contrast. T12-L1 facet arthrosis. Posterior disc osteophyte. Approximate 5 mm degenerative retrolisthesis of T12 on L1. There is a moderate central stenosis. Bilateral lateral recess encroachment. Mild LEFT foraminal narrowing. Moderate RIGHT foraminal narrowing. L1-L2 facet arthrosis. Prominence of ligamentum flavum. Posterior disc osteophyte. Moderate central stenosis. Bilateral lateral recess encroachment. Mild bilateral foraminal narrowing. L2-L3 facet arthrosis. Prominence of the ligamentum flavum. Apparent RIGHT laminectomy. Mild central stenosis. No significant foraminal narrowing. Examination through the postoperative levels without central stenosis or significant foraminal narrowing. XR LUMBOSACRAL SPINE 08/26/24 CLINICAL INFORMATION: Left-sided back pain. Prior surgery. COMPARISON: Most recent lumbar spine radiographs dated 10/31/2023. TECHNIQUE: Three views of the lumbosacral spine. FINDINGS: Redemonstration of 6 nonrib-bearing lumbar-type vertebral bodies with lumbarization of the S1 vertebral body. Posterior stabilization hardware redemonstrated at L4-L5 with intervertebral disc hardware at L5-S1 and S1-S2. No evidence of hardware complication. Grade 1 retrolisthesis of L1 on L2 is unchanged. Multilevel degenerative disc disease with facet arthropathy, unchanged. No acute fracture. No new lytic or blastic osseous lesion. Surgical clips. IMPRESSION: 1. Posterior stabilization hardware at L4-L5 and L5-S1 without evidence of hardware complication. 2. Grade 1 retrolisthesis of L1 on L2 and multilevel degenerative disc disease and facet arthropathy, unchanged. Assessment & Plan Assessment & Plan (1) Epidural adhesions: Code(s): G96.12 - Meningeal adhesions (cerebral) (spinal) Category: Medical (2) Degenerative thoracic spinal stenosis: Code(s): M48.04 - Spinal stenosis, thoracic region Category: Medical (3) Lumbar post-laminectomy syndrome: Code(s): M96.1 - Postlaminectomy syndrome, not elsewhere classified Category: Medical (4) Lumbar spinal stenosis: Code(s): M48.061 - Spinal stenosis, lumbar region without neurogenic claudication Category: Medical (5) Spondylolisthesis of thoracolumbar region: Code(s): M43.15 - Spondylolisthesis, thoracolumbar region Category: Medical (6) Chronic low back pain: Code(s): M54.50 - Low back pain, unspecified; G89.29 - Other chronic pain Category: Medical Plan Discussed thoracic spine MRI results with patient and family. Will proceed with [facility] Oncology evaluation of epidural lesion at T11. Pending prior authorization for Caudal NIC with catheter for radicular and spinal stenosis related pain. Expectations, risks and benefits were reviewed again today. Patient is aware she will be contacted to schedule this procedure. She reports short script of oxycodone has been partially effective for her symptoms without any side effects. Patient is aware to call if pain worsens or if she develops any red flag symptoms to seek emergency care. Patient denies any cauda equina syndrome symptoms at this time. All questions were answered and the patient is in agreement of plan. Follow-up after injection and sooner as needed. Orders: Referrals Hematology & Oncology Referral G96.12 - Meningeal adhesions (cerebral) (spinal), M48.04 - Spinal stenosis, thoracic region, R93.7 - Abnormal findings on diagnostic imaging of other parts of musculoskeletal system Coding Level of Care Code Est Pt Level 4 (67340) Complex EM visit Add On G2211 Diagnoses Epidural adhesions G96.12 Degenerative thoracic spinal stenosis M48.04 Lumbar post-laminectomy syndrome M96.1 Lumbar spinal stenosis M48.061 Spondylolisthesis of thoracolumbar region M43.15 Chronic low back pain M54.50; G89.29
[2024-11-08 15:20] VITALS: BP 144/70; PULSE 61; BMI 28.9
--- OUTSIDE RECORDS SUMMARY | 2024-11-08 16:04 | XMS_ITS | Encounter Summary ---
Author Organization [employer] Address [address] [place] [address] [address] [place] [address] Care Team Providers Care Valve Repairer Reclamation Name Role Phone Ernie Noriega MD Primary Care Provide r Reason for Visit * Reason Onset Date Comments Med Refill 03/15/2024 Encounter Details Date Type Department Care Team ([facility] st Contact Info) Description 03/15/2024 Refill [facility] [address] [place] [address] Ofelia Melgar MD [address] [place] [address] Chronic midline low back pain without sciatica; Cervical radiculopathy Social History Tobacco Use Types Packs/Day Years Used Date Smoking Tobacco: Former Cigarettes Passive Smoke Exposure: Past Smokeless Tobacco: Never Alcohol Use Standard Drinks/Week Comments Never 0 (1 standard drink = 0.6 oz pur e alcohol) Depression Answer Date Recorded Patient Health Questionnaire-9 Score 2 01/21/2024 Patient Health Questionnaire-9 Score 2 01/21/2024 Last PHQ-9: Questionnaire Data Not on file 0 01/21/2024 Housing Stability Answer Date Recorded What is your housing situation today? I have robinmerrick ramírez 01/21/[address] you li ve. Do you have problems with any of the following? None of the above 01/21/2024 Food Insecurity Answer Date Recorded Within the past 12 months, y ou worried that your food would run out before you got money to buy more: Never True 01/21/2024 Within the past 12 months,th e food you bought just didn't last and you didn't have enough money to get more: Never True 08/2024 Transportation Answer Date Recorded In the past 12 months, has l ack of transportation kept you from medical appts, meetings, work or from getting things needed for daily living? No 01/21/2024 Utilities Answer Date Recorded In the past 12 months, has t he electric, gas, oil or water company threatened to shut off services in your home? No 01/21/2024 Depression Answer Date Recorded Patient Health Questionnaire-2 Score 1 01/21/2024 Comments Unknown Sex and Gender Information Value Date Recorded Sex Assigned at Female 08/11/2022 10:15 AM EDT Legal Sex Female 10:15 AM EDT Gender Identity Female 08/11/2022 10:15 AM EDT Sexual Orientation Straight 08/11/2022 10 :15 AM EDT documented as of this encounter Plan of Treatment Upcoming Encounters Date Type Department Care Team (Late st Contact Info) Description 01/12/2025 3:00 PM EDT Office Visit [facility] [address] [place] [address] Ernie Noriega MD [address] [place] [address] documented as of this encounter Visit Diagnoses Diagnosis Chronic midline low back pain without sciatica Cervical radiculopathy Brachial neuritis or radiculitis nos documented in this encounter Additional Health Concerns Assessment Noted Time PHQ-9 Depression Total Score: 2 01/21/20 24 1:25 PM EDT documented as of this encounter Care Teams Valve Repairer Reclamation Relationship Specialty Start Date End Date Ernie Noriega MD [address] [place] [address] PCP - General Internal Medicine 08/25/19 documented as of this encounter
--- OUTSIDE RECORDS SUMMARY | 2024-11-08 16:04 | XMS_ITS | Encounter Summary ---
Author Organization [employer] Address [address] [place] [address] [address] [place] [address] Care Team Providers Care Procurement Forester Name Role Phone Ernie Noriega MD Primary Care Provide r Reason for Visit * Reason Onset Date Comments Med Refill 06/25/2024 Encounter Details Date Type Department Care Team ([facility] st Contact Info) Description 06/25/2024 Refill [facility] [address] [place] [address] Ernie Noriega MD [address] [place] [address] Chronic midline low back pain without sciatica; [...] is your housing situation today? I have robin desiree 01/21/[address] you li [...] Description 01/12/2025 3:00 PM EDT Office Visit [facility] [address] [place] [address] Ernie Noriega MD [address] [place] [address] documented as of this encounter Visit Diagnoses Diagnosis Chronic midline low back pain without sciatica Cervical radiculopathy Brachial neuritis or radiculitis nos documented in this encounter Additional Health Concerns Assessment Noted Time PHQ-9 Depression Total Score: 2 01/21/20 24 1:25 PM EDT documented as of this encounter Care Teams Procurement Forester Relationship Specialty Start Date End Date Ernie Noriega MD [address] [place] [address] PCP - General Internal Medicine 08/25/19 documented as of this encounter
--- OUTSIDE RECORDS SUMMARY | 2024-11-08 16:04 | XMS_ITS | Encounter Summary ---
Author Organization [employer] Address [address] [place] [address] [address] [place] [address] Care Team Providers Care Dye Weigher Helper Name Role Phone Ernie Noriega MD Primary Care Provide r Reason for Visit * Reason Onset Date Comments Med Refill 01/26/2024 Encounter Details Date Type Department Care Team ([facility] st Contact Info) Description 01/26/2024 Refill [facility] [address] [place] [address] Ilsa Robison, ANP [address] [place] [address] Chronic midline low back pain without sciatica; [...] Description 01/12/2025 3:00 PM EDT Office Visit [facility] [address] [place] [address] Ernie Noriega MD [address] [place] [address] documented as of this encounter Visit Diagnoses Diagnosis Chronic midline low back pain without sciatica Cervical radiculopathy Brachial neuritis or radiculitis nos documented in this encounter Additional Health Concerns Assessment Noted Time PHQ-9 Depression Total Score: 2 01/21/20 24 1:25 PM EDT documented as of this encounter Care Teams Dye Weigher Helper Relationship Specialty Start Date End Date Ernie Noriega MD [address] [place] [address] PCP - General Internal Medicine 08/25/19 documented as of this encounter
--- OUTSIDE RECORDS SUMMARY | 2024-11-08 16:04 | XMS_ITS | Clinical Summary ---
Author Organization 175 [facility] Address [address] [place] [phone] Phone Care Team Providers Care Deicer Repairer Electric Name Role Phone Ernie Merritt MD Primary Care Provi bobo Allergies No known active allergies Medications Medication Sig Dispensed Refills Start Date End Date Status acetaminophen (TYLENOL) 500 mg tablet TOME DEBBIE TABLETA ABRAHAM VECES AL FERNANDO FOR PAIN 04/03/2023 Active fluticasone propion-salmetero L (ADVAIR DISKUS) 100-50 mcg/dose diskus inhaler Inhale 1 Puff into the lungs every 12 hours. Active gabapentin (NEURONTIN) 300 mg capsule Take 300 mg by mouth 2 times daily. Active hydroCHLOROthiazi de 12.5 mg tablet Take 12.5 mg by mouth daily. Active ibuprofen (ADVIL,MOTRIN) 600 mg tablet Take 1 Tablet by mouth every 8 hours as needed for Pain (Take with food. do not take with meloxicam) for up to 60 doses. 08/14/2023 Active montelukast (SINGULAIR) 10 mg tablet Take 10 mg by mouth at bedtime. Active zolpidem (AMBIEN) 10 mg tablet Take 10 mg by mouth at bedtime as needed. Active oxyCODONE (ROXICODONE) 5 mg immediate release tablet every 4 (four) hours if needed for severe pain. Active diclofenac (VOLTAREN) 50 mg EC tablet TOME DEBBIE TABLETA POR VIA ORAL DOS VECES AL FERNANDO CUANDO SEA NECESARIO PARA EL DOLOR CON ALIMENTO, DONT TAKE WITH IBUPROFEN 03/01/2024 11/07/2024 Discontinued tamsulosin (FLOMAX) 0.4 mg 24 hr capsule Take 0.4 mg by mouth daily. Take 30 mins after same meal every day. 11/07/2024 Discontinued Active Problems Problem Noted Date Diagnosed Date Acquired trigger finger of left index finger De Quervain's tenosynovitis, left 09/01/2023 Trigger thumb of right hand 07/03/2021 Encounters Date Type Department Care Team Description 11/04/2024 Telephone Orthopedic Surgery [facility] 175 [facility] [address] [place] [phone] Eulalia Velez 08/15/2024 Telephone Orthopedic Surgery [facility] 160 175 [facility] 160 [place] [phone] [place] [address] Scan (LT Shoulder Blueprint - Continued Documentation) from Last 3 Months Surgical History Surgery Date Site/Laterality Comments CARPAL TUNNEL RELEASE Bilateral Medical History Medical History Date Comments Essential hypertension DX:Essent ial hypertension Asthma Arthritis Joint pain Social History Tobacco Use Types Packs/Day Years Used Date Smoking Tobacco: Never Smokeless Tobacco: Never Alcohol Use Standard Drinks/Week Comments Never 0 (1 standard drink = 0.6 oz pur e alcohol) Sex and Gender Information Value Date Recorded Sex Assigned at Not on file Gender Identity Not on file Sexual Orientation Not on file Job Start Date Occupation Industry Not on file Not on file Not on file Obstetrics History Last Filed Vital Signs Vital Sign Reading Time Taken Comments Blood Pressure 136/72 11/02/2023 3:03 PM EST R A rm Pulse 59 11/02/2023 3:03 PM EST Temperature - - Respiratory Rate - - Oxygen Saturation - - Inhaled Oxygen Concentration - - Weight 73.9 kg (163 lb) 11/07/2024 10:00 AM EST Height 160 cm (5' 3 ) 11/07/2024 10:00 AM EST Body Mass Index 28.87 11/07/2024 10:00 AM EST Plan of Treatment Upcoming Encounters Date Type Department Care Team (Latest Contact Info) Description 11/23/2024 11:00 AM EST Office Visit Orthopedic Surgery [facility] 160 175 [facility] [address] [place] [address] Leroy Lees MD 175 [facility] 160 [place] [address] 12/07/2024 1:30 PM EST Hospital Encounter [facility] Main OR [address] [place] [phone] Trista David MD [address] [phone] 12/07/2024 1:30 PM EST - 12/07/2024 3:00 PM EST Surgery [facility] Main OR [address] [place] [phone] Trista David MD [address] [phone] LEFT A1 JOAO/TRIGGER FINGER RELEASE INDEX FINGER [[id number] (CPT??)] Scheduled Procedures Name Priority Associated Diagnoses Date/Ti me RELEASE TRIGGER FINGER Trigger finger, unspecified finger 12/07/2024 1:30 PM EST Health Maintenance Due Date Last Done Comments Breast Cancer Screening 1963 DTaP,Tdap,and Td Vaccines (1 - Tdap) 1982 Cervical Cancer Screening: P ap Smear 1984 Zoster Vaccines (1 of 2) 2013 Colorectal Cancer Screening: Colonoscopy 09/21/2022 Depression Screening 09/21/2022 HIV Screening 09/21/2022 Hepatitis C Screening 09/21/2022 Social Influencers of Health Screening 09/21/2022 COVID-19 Vaccine ( - 2023-2 5 season) 2024 Influenza Vaccine (#1) 2024 RSV Immunization Patients 60 + Years Old (1 - 1-dose 75+ series) 2038 HIB Vaccines Aged Out No longer eligi ble based on patient's age to complete this topic HPV Vaccines Aged Out No longer eligi ble based on patient's age to complete this topic Hepatitis A Vaccines Aged Out No long er eligible based on patient's age to complete this topic Hepatitis B Vaccines Aged Out No long er eligible based on patient's age to complete this topic IPV Vaccines Aged Out No longer eligi ble based on patient's age to complete this topic MMR Vaccines Aged Out No longer eligi ble based on patient's age to complete this topic Meningococcal ACWY Vaccine Aged Out N o longer eligible based on patient's age to complete this topic Pneumococcal Vaccine: Pediat rics (0 to 5 Years) and At-Risk Patients (6 to 64 Years) Aged Out No longer eligible b ased on patient's age to complete this topic RSV Immunization Patients Un bobo 20 months Aged Out No longer eligible b ased on patient's age to complete this topic Varicella Vaccines Aged Out No longer eligible based on patient's age to complete this topic Care Teams Deicer Repairer Electric Relationship Specialty Start Date End Date Ernie Merritt MD [address] [place] [address] [place] [phone] PCP - General Internal Medicine 05/20/21
--- OUTSIDE RECORDS SUMMARY | 2024-11-08 16:05 | XMS_ITS | Encounter Summary ---
Author Organization [employer] Address [address] [place] [address] 7t [place] [address] Care Team Providers Care Business Solutions Director Name Role Phone Ernie Noriega MD Primary Care Provide r Reason for Visit * Reason Onset Date Comments Med Refill 08/17/2023 Encounter Details Date Type Department Care Team ([facility] st Contact Info) Description 08/17/2023 Telephone [facility] MEDICINE [address] [place], [place] [phone] Ernie Noriega MD 230 [place], [place] [phone] Med Refill Social History Tobacco Use Types Packs/Day Years Used Date Smoking Tobacco: Former Cigarettes Passive Smoke Exposure: Past Smokeless Tobacco: Never Alcohol Use Standard Drinks/Week Comments Never 0 (1 standard drink = 0.6 oz pur e alcohol) Depression Answer Date Recorded Patient Health Questionnaire-9 Score 0 12/02/2022 Housing Stability Answer Date Recorded What is your housing situation today? I have robin ramírez 07/29/[address] you li ve. Do you have problems with any of the following? None of the above 07/29/2023 Food Insecurity Answer Date Recorded Within the past 12 months, y ou worried that your food would run out before you got money to buy more: Never True 07/29/2023 Within the past 12 months,th e food you bought just didn't last and you didn't have enough money to get more: Never True Transportation Answer Date Recorded In the past 12 months, has l ack of transportation kept you from medical appts, meetings, work or from getting things needed for daily living? No 07/29/2023 Utilities Answer Date Recorded In the past 12 months, has t he electric, gas, oil or water company threatened to shut off services in your home? No 07/29/2023 Depression Answer Date Recorded Patient Health Questionnaire-2 Score 0 12/02/2022 Comments Unknown Sex and Gender Information Value Date Recorded Sex Assigned at Female 08/11/2022 10:15 AM EDT Legal Sex Female 10:15 AM EDT Gender Identity Female 08/11/2022 10:15 AM EDT Sexual Orientation Straight 08/11/2022 10 :15 AM EDT documented as of this encounter Miscellaneous Notes * Telephone Encounter - Tiffanie Emmanuel - 08/17/2023 9:23 AM EST Tc from pt requesting med refill on traMADol (Ultram) 50 MG tablet Please sent to [facility]/pharmacy #[id number] [place], [place] - [address] [place] [address] documented in this encounter Plan of Treatment Upcoming Encounters Date Type Department Care Team (Late st Contact Info) Description 01/12/2025 3:00 PM EDT Office Visit [facility] MEDICINE [address] [place] [address] Ernie Noriega MD 230 [place] [address] documented as of this encounter Visit Diagnoses Not on filedocumented in this encounter Additional Health Concerns Assessment Noted Time PHQ-9 Depression Total Score: 0 12/02/19 23 2:38 PM EST documented as of this encounter Care Teams Business Solutions Director Relationship Specialty Start Date End Date Ernie Noriega MD 230 [place] [address] PCP - General Internal Medicine 08/25/19 documented as of this encounter
--- OUTSIDE RECORDS SUMMARY | 2024-11-08 16:05 | XMS_ITS | Encounter Summary ---
Author Organization [employer] Address [address] [place] [address] 7t [place] [address] Care Team Providers Care Business Team Leader Name Role Phone Ernie Noriega MD Primary Care Provide r Reason for Visit * Reason Comments Med Refill Encounter Details Date Type Department Care Team ([facility] st Contact Info) Description 07/28/2024 Refill [facility] MEDICINE 230 [place], [place] [phone] Ernie Noriega MD 230 [place] [address] Primary osteoarthritis of knee, unspecified laterality Social History Tobacco Use Types Packs/Day Years [...] housing situation today? I have robin ramírez 01/21/[address] you [...] Description 01/12/2025 3:00 PM EDT Office Visit [facility] MEDICINE [address] [place] [phone] Ernie Noriega MD [address] [place] [phone] documented as of this encounter Visit Diagnoses Diagnosis Primary osteoarthritis of knee, unspecified laterality documented in this encounter Additional Health Concerns Assessment Noted Time PHQ-9 Depression Total Score: 2 01/21/20 24 1:25 PM EDT documented as of this encounter Care Teams Business Team Leader Relationship Specialty Start Date End Date Ernie Noriega MD [address] [place] [phone] PCP - General Internal Medicine 08/25/19 documented as of this encounter
--- OUTSIDE RECORDS SUMMARY | 2024-11-08 16:05 | XMS_ITS | Encounter Summary ---
Author Organization [employer] Address [address] [place] [address] 7t [place] [address] Care Team Providers Care Forklift Material Handler Name Role Phone Ernie Noriega MD Primary Care Provide r Reason for Visit * Reason Onset Date Comments Med Refill 10/27/2023 Encounter Details Date Type Department Care Team ([facility] st Contact Info) Description 10/27/2023 Refill [facility] MEDICINE 230 [place] [address] Ernie Noriega MD 230 [place] [address] Mild persistent asthma without complication; Pain; Chronic midline low back pain without sciatica; [...] housing situation today? I have robinmerrick ramírez 07/29/[address] you [...] Description 01/12/2025 3:00 PM EDT Office Visit [facility] MEDICINE [address] [place] [phone] Ernie Noriega MD [address] [place] [address] documented as of this encounter Visit Diagnoses Diagnosis Mild persistent asthma without complication Pain Generalized pain Chronic midline low back pain without sciatica Cervical radiculopathy Brachial neuritis or radiculitis nos documented in this encounter Additional Health Concerns Assessment Noted Time PHQ-9 Depression Total Score: 0 12/02/19 23 2:38 PM EST documented as of this encounter Care Teams Forklift Material Handler Relationship Specialty Start Date End Date Ernie Noriega MD [address] [place] [phone] PCP - General Internal Medicine 08/25/19 documented as of this encounter
--- OUTSIDE RECORDS SUMMARY | 2024-11-08 16:05 | XMS_ITS | Encounter Summary ---
Author Organization [employer] Address [address] [place] [address] 7t [place] [address] Care Team Providers Care Ui Developer Designer Name Role Phone Ernie Noriega MD Primary Care Provide r Reason for Visit * Reason Comments Med Refill Encounter Details Date Type Department Care Team ([facility] st Contact Info) Description 10/16/2024 Refill [facility] MEDICINE 230 [place] [address] Sugar Mitchell MD 230 [place] [address] Social History Tobacco Use Types Packs/Day Years [...] Recorded Patient Health Questionnaire-2 Score 1 01/21/2024 Internet Access Answer Date Recorded Internet Access Q1 Yes 10/03/2024 Internet Access Q2 Not on file 10/03/2024 Comments Unknown Sex and Gender Information Value [...] Description 01/12/2025 3:00 PM EDT Office Visit [facility] 230 [place] [address] Ernie Noriega MD 230 [place] [address] documented as of this encounter Visit Diagnoses Not on filedocumented in this encounter Additional Health Concerns Assessment Noted Time PHQ-9 Depression Total Score: 2 01/21/20 24 1:25 PM EDT documented as of this encounter Care Teams Ui Developer Designer Relationship Specialty Start Date End Date Ernie Noriega MD [address] [place] [phone] PCP - General Internal Medicine 08/25/19 documented as of this encounter
--- OUTSIDE RECORDS SUMMARY | 2024-11-08 16:05 | XMS_ITS | Encounter Summary ---
Author Organization [employer] Address [address] [place] [address] 7t [place] [address] Care Team Providers Care Mail Distribution Clerk Name Role Phone Ernie Noriega MD Primary Care Provide r Reason for Visit * Reason Onset Date Comments Med Refill 10/25/2024 Encounter Details Date Type Department Care Team ([facility] st Contact Info) Description 10/25/2024 Refill [facility] MEDICINE 230 [place] [address] Ernie Noriega MD 230 [place] [address] Chronic midline low back pain without sciatica Social History Tobacco Use Types Packs/Day Years [...] your housing situation today? I have robin sing 01/21/[address] you li [...] Description 01/12/2025 3:00 PM EDT Office Visit [facility] MEDICINE 230 [place] [address] Ernie Noriega MD 230 [place] [address] documented as of this encounter Visit Diagnoses Diagnosis Chronic midline low back pain without sciatica documented in this encounter Additional Health Concerns Assessment Noted Time PHQ-9 Depression Total Score: 2 01/21/20 24 1:25 PM EDT documented as of this encounter Care Teams Mail Distribution Clerk Relationship Specialty Start Date End Date Ernie Noriega MD [address] [place] [phone] PCP - General Internal Medicine 08/25/19 documented as of this encounter
--- OUTSIDE RECORDS SUMMARY | 2024-11-08 16:05 | XMS_ITS | Encounter Summary ---
Author Organization [employer] [facility] Address [address] [place] [address] 7t [place] [address] Care Team Providers Care Concert Singer Name Role Phone Ernie Noriega MD Primary Care Provide r Encounter Details Date Type Department Care Team (Late st Contact Info) Description 04/13/2023 Orders Only [facility] MEDICINE [address] [place] [address] [phone] Sugar Mitchell MD [address] [place] [address] [phone] Neuropathic pain of right lower extremity (Primary Dx) Social History Tobacco Use Types Packs/Day Years Used Date Smoking Tobacco: Former Cigarettes Passive Smoke Exposure: Past Smokeless Tobacco: Never Alcohol Use Standard Drinks/Week Comments Never 0 (1 standard drink = 0.6 oz pur e alcohol) Depression Answer Date Recorded Patient Health Questionnaire-9 Score 0 12/02/2022 Depression Answer Date Recorded Patient Health Questionnaire-2 [...] Description 01/12/2025 3:00 PM EDT Office Visit [facility] MEDICINE [address] [place] [address] Ernie Noriega MD 230 [place], [place] [phone] documented as of this encounter Procedures Procedure Name Priority Date/Time Associated Diagnosis Comments BASIC METABOLIC PANEL Routine 05/13/2023 8:40 AM EDT Neuropathic pain of right lower extremity documented in this encounter Results * (ABNORMAL) Basic Metabolic Panel (05/13/2023 8:40 AM EDT) Sodium 141 135 - 145 mmol/L [facility] Potassium 3.5 3.3 - 5.1 mmol/L [facility] Chloride 103 96 - 108 mmol/L [facility] Carbon Dioxide 23 22 - 29 mmol/L [facility] Anion Gap 19 12 - 20 [facility] Urea Nitrogen (BUN) 15 9 - 16 mg/dL [facility] Creatinine, Serum 0.78 0.5 - 1.4 mg/dL [facility] Estimated Glomerular Filt Rate >60 [facility] Comment:NOTE: For -Am erican individuals, multiply the result by 1.210.Chronic Kidney Disease: Estimated GFR < 60 mL/min/1.27n4Flhxhw Kidney Disease: Estimated GFR < 15 mL/min/1.73m2 Glucose 151(H) 60 - 115 mg/dL [facility] Calcium 9.3 8.4 - 10.2 mg/dL [facility] Blood Venous blood specimen / Unknown 05/13/2023 8:40 AM EDT 05/13/2023 11:14 AM EDT us Sugar Mitchell MD LAB BLOOD ORDERABLES Final Resul t [facility] [address] [place] [phone] documented in this encounter Visit Diagnoses Diagnosis Neuropathic pain of right lower extremity- Primary documented in this encounter Additional Health Concerns Assessment Noted Time PHQ-9 Depression Total Score: 0 12/02/19 23 2:38 PM EST documented as of this encounter Care Teams Concert Singer Relationship Specialty Start Date End Date Ernie Noriega MD 230 [place] [address] PCP - General Internal Medicine 08/25/19 documented as of this encounter
--- OUTSIDE RECORDS SUMMARY | 2024-11-08 16:05 | XMS_ITS | Encounter Summary ---
Author Organization [employer] Address [address] [place] [address] 7t [place] [address] Care Team Providers Care Director Of Partner Marketing Name Role Phone Ernie Noriega MD Primary Care Provide r Reason for Visit * Reason Onset Date Comments Med Refill 08/13/2024 Encounter Details Date Type Department Care Team ([facility] st Contact Info) Description 08/13/2024 Refill [facility] MEDICINE 230 [place] [address] Ernie Noriega MD 230 [place] [address] Seasonal allergies Social History Tobacco Use Types Packs/Day Years [...] Description 01/12/2025 3:00 PM EDT Office Visit [facility] MEDICINE [address] [place] [phone] Ernie Noriega MD 230 [place] [address] documented as of this encounter Visit Diagnoses Diagnosis Seasonal allergies Allergic rhinitis, cause unspecified documented in this encounter Additional Health Concerns Assessment Noted Time PHQ-9 Depression Total Score: 2 01/21/20 24 1:25 PM EDT documented as of this encounter Care Teams Director Of Partner Marketing Relationship Specialty Start Date End Date Ernie Noriega MD [address] [place] [phone] PCP - General Internal Medicine 08/25/19 documented as of this encounter
--- OUTSIDE RECORDS SUMMARY | 2024-11-08 16:05 | XMS_ITS | Encounter Summary ---
Author Organization [employer] [facility] Address [address] [place] [address] 7 [place] [address] Care Team Providers Care Facing Baster Name Role Phone Ernie Noriega MD Primary Care Provide r Reason for Visit * Reason Onset Date Comments Appointment Request 02/17/2023 Encounter Details Date Type Department Care Team ([facility] st Contact Info) Description 02/17/2023 Telephone [facility] MEDICINE 230 [place] [address] Ernie Noriega MD 230 [place] [address] Appointment Request Social History Tobacco Use Types Packs/Day Years [...] * Telephone Encounter - Tiffanie Emmanuel - 02/17/2023 12:05 PM EDT Tc from pt requesting an appt with provider in regards to discuss regarding a colonoscopy due to advise by her hospital mortician in [facility] Please contact pt AT [phone] Upper Sorbian Speaker documented in this encounter Plan of Treatment Upcoming Encounters Date Type Department Care Team (Late st Contact Info) Description 01/12/2025 3:00 PM EDT Office Visit [facility] MEDICINE [address] [place] [address] Ernie Noriega MD 230 [place] [address] documented as of this encounter Visit Diagnoses Not on filedocumented in this encounter Additional Health Concerns Assessment Noted Time PHQ-9 Depression Total Score: 0 12/02/19 23 2:38 PM EST documented as of this encounter Care Teams Facing Baster Relationship Specialty Start Date End Date Ernie Noriega MD 230 [place], [place] [phone] PCP - General Internal Medicine 08/25/19 documented as of this encounter
--- OUTSIDE RECORDS SUMMARY | 2024-11-08 16:05 | XMS_ITS | Encounter Summary ---
Author Organization [employer] Address [address] [place] [address] 7 [place] [address] Care Team Providers Care Sanitary Aide Name Role Phone Ernie Noriega MD Primary Care Provide r Reason for Visit * Reason Onset Date Comments Med Refill 10/25/2023 Encounter Details Date Type Department Care Team ([facility] st Contact Info) Description 10/25/2023 Refill [facility] MEDICINE 230 [place] [address] Ernie Noriega MD 230 [place] [address] Social History Tobacco Use Types Packs/Day Years [...] Description 01/12/2025 3:00 PM EDT Office Visit [facility] MEDICINE [address] [place] [address] Ernie Noriega MD 230 [place] [address] documented as of this encounter Visit Diagnoses Not on filedocumented in this encounter Additional Health Concerns Assessment Noted Time PHQ-9 Depression Total Score: 0 12/02/19 23 2:38 PM EST documented as of this encounter Care Teams Sanitary Aide Relationship Specialty Start Date End Date Ernie Noriega MD 230 [place] [address] PCP - General Internal Medicine 08/25/19 documented as of this encounter
--- OUTSIDE RECORDS SUMMARY | 2024-11-08 16:05 | XMS_ITS | Encounter Summary ---
Author Organization [employer] Address [address] [place] [address] 7t [place] [address] Care Team Providers Care Foundation Drill Operator Helper Name Role Phone Ernie Noriega MD Primary Care Provide r Reason for Visit * Reason Onset Date Comments Med Refill 11/04/2023 Encounter Details Date Type Department Care Team ([facility] st Contact Info) Description 11/04/2023 Refill [facility] MEDICINE [address] [place] [address] Ernie Noriega MD 230 [place] [address] Chronic midline low back pain without sciatica; Cervical radiculopathy; Seasonal allergies Social History Tobacco Use Types [...] Description 01/12/2025 3:00 PM EDT Office Visit [facility] MEDICINE [address] [place] [address] Ernie Noriega MD [address] [place] [phone] documented as of this encounter Visit Diagnoses Diagnosis Chronic midline low back pain without sciatica Cervical radiculopathy Brachial neuritis or radiculitis nos Seasonal allergies Allergic rhinitis, cause unspecified documented in this encounter Additional Health Concerns Assessment Noted Time PHQ-9 Depression Total Score: 0 12/02/19 23 2:38 PM EST documented as of this encounter Care Teams Foundation Drill Operator Helper Relationship Specialty Start Date End Date Ernie Noriega MD [address] [place] [phone] PCP - General Internal Medicine 08/25/19 documented as of this encounter
--- OUTSIDE RECORDS SUMMARY | 2024-11-08 16:05 | XMS_ITS | Encounter Summary ---
Author Organization [employer] Address [address] [place] [address] 7t [place] [address] Care Team Providers Care Toll Test Desk Worker Name Role Phone Ernie Noriega MD Primary Care Provide r Reason for Visit * Reason Onset Date Comments Med Refill 08/12/2024 Encounter Details Date Type Department Care Team ([facility] st Contact Info) Description 08/12/2024 Refill [facility] 230 [place] [address] Ilsa Robison, ANP 230 [place] [address] Primary osteoarthritis of knee, unspecified laterality Social [...] your housing situation today? I have robin ramíerz 01/21/[address] you li [...] Description 01/12/2025 3:00 PM EDT Office Visit [facility] [address] [place] [address] Ernie Noriega MD [address] [place] [address] documented as of this encounter Visit Diagnoses Diagnosis Primary osteoarthritis of knee, unspecified laterality documented in this encounter Additional Health Concerns Assessment Noted Time PHQ-9 Depression Total Score: 2 01/21/20 24 1:25 PM EDT documented as of this encounter Care Teams Toll Test Desk Worker Relationship Specialty Start Date End Date Ernie Noriega MD [address] [place] [address] PCP - General Internal Medicine 08/25/19 documented as of this encounter
--- OUTSIDE RECORDS SUMMARY | 2024-11-08 16:05 | XMS_ITS | Encounter Summary ---
Author Organization [employer] Address [address] [place] [address] 7t [place] [address] Care Team Providers Care Import/Export Freight Forwarder Name Role Phone Ernie Noriega MD Primary Care Provide r Reason for Visit * Reason Comments Med Refill Encounter Details Date Type Department Care Team ([facility] st Contact Info) Description 11/20/2023 Refill [facility] 230 [place], [place] [phone] Ernie Noriega MD 230 [place] [address] Pain Social History Tobacco Use Types Packs/Day Years [...] Description 01/12/2025 3:00 PM EDT Office Visit [facility] 230 [place] [address] Ernie Noriega MD 230 [place] [address] documented as of this encounter Visit Diagnoses Diagnosis Pain Generalized pain documented in this encounter Additional Health Concerns Assessment Noted Time PHQ-9 Depression Total Score: 0 12/02/19 23 2:38 PM EST documented as of this encounter Care Teams Import/Export Freight Forwarder Relationship Specialty Start Date End Date Ernie Noriega MD 230 [place] [address] PCP - General Internal Medicine 08/25/19 documented as of this encounter
--- OUTSIDE RECORDS SUMMARY | 2024-11-08 16:05 | XMS_ITS | Encounter Summary ---
Author Organization [employer] Address [address] [place] [address] 7 [place] [address] Care Team Providers Care Metal Hanging Supervisor Name Role Phone Ernie Noriega MD Primary Care Provide r Reason for Visit * Reason Onset Date Comments Med Refill 10/14/2024 Encounter Details Date Type Department Care Team ([facility] st Contact Info) Description 10/14/2024 Telephone [facility] MED[facility]INE 230 [place] [address] Ernie Noriega MD 230 [place], [place] [phone] Med Refill Social History Tobacco Use Types [...] encounter Miscellaneous Notes * Telephone Encounter - Tess Perez LPN - 10/14/2024 2:33 PM EST Script was sent to [facility] #[id number] on 10/13/24. * Telephone Encounter - Mansoor Chavez - 10/14/2024 2:28 PM EST TC from pt requesting medication refill. Medications needing refill : gabapentin (Neurontin) 300 MG capsule To be sent to: [facility]/pharmacy #[id number] - documented in this encounter Plan of Treatment Upcoming Encounters Date Type Department Care Team (Late st Contact Info) Description 01/12/2025 3:00 PM EDT Office Visit [facility] MED[facility]INE 230 [place] [address] Ernie Noriega MD 230 [place] [address] documented as of this encounter Visit Diagnoses Not on filedocumented in this encounter Additional Health Concerns Assessment Noted Time PHQ-9 Depression Total Score: 2 01/21/20 24 1:25 PM EDT documented as of this encounter Care Teams Metal Hanging Supervisor Relationship Specialty Start Date End Date Ernie Noriega MD [address] [place] [address] PCP - General Internal Medicine 08/25/19 documented as of this encounter
--- OUTSIDE RECORDS SUMMARY | 2024-11-08 16:05 | XMS_ITS | Encounter Summary ---
Author Organization [employer] Address [address] [place] [address] 7t [place] [address] Care Team Providers Care Manager Internal Name Role Phone Ernie Noriega MD Primary Care Provide r Reason for Visit * Reason Onset Date Comments Med Refill 10/17/2024 Encounter Details Date Type Department Care Team ([facility] st Contact Info) Description 10/17/2024 Refill [facility] 230 [place] [address] Ernie Noriega MD 230 [place] [address] Primary osteoarthritis of knee, unspecified laterality Social [...] Description 01/12/2025 3:00 PM EDT Office Visit [facility] [address] [place] [address] Ernie Noriega MD 230 [place] [address] documented as of this encounter Visit Diagnoses Diagnosis Primary osteoarthritis of knee, unspecified laterality documented in this encounter Additional Health Concerns Assessment Noted Time PHQ-9 Depression Total Score: 2 01/21/20 24 1:25 PM EDT documented as of this encounter Care Teams Manager Internal Relationship Specialty Start Date End Date Ernie Noriega MD [address] [place] [address] PCP - General Internal Medicine 08/25/19 documented as of this encounter
--- OUTSIDE RECORDS SUMMARY | 2024-11-08 16:05 | XMS_ITS | Encounter Summary ---
Author Organization [employer] [facility] Address [address] [place] [address] 7t [place] [address] Care Team Providers Care Product Applications Scientist Name Role Phone Ernie Noriega MD Primary Care Provide r Encounter Details Date Type Department Care Team (Latest Contact Info) Description 06/19/2022 Abstract [facility] CONVERSIONS Dental, Provider, DDS Social History Tobacco Use Types Packs/Day Years Used Date Smoking Tobacco: Never Assessed Comments Unknown Sex and Gender Information Value [...] 3:00 PM EDT Office Visit [facility] MEDICINE 230 [place] [address] Ernie Noriega MD [address] [place] [address] documented as of this encounter Visit Diagnoses Not on filedocumented in this encounter Care Teams Product Applications Scientist Relationship Specialty Start Date End Date Ernie Noriega MD [address] [place] [address] PCP - General Internal Medicine 08/25/19 documented as of this encounter
--- OUTSIDE RECORDS SUMMARY | 2024-11-08 16:05 | XMS_ITS | Encounter Summary ---
Author Organization [employer] Address [address] [place] [address] 7t [place] [address] Care Team Providers Care Nuclear Medicine Technologist Name Role Phone Ernie Noriega MD Primary Care Provide r Reason for Visit * Reason Onset Date Comments Med Refill 11/03/2023 Encounter Details Date Type Department Care Team ([facility] st Contact Info) Description 11/03/2023 Refill [facility] 230 [place] [address] Ernie Noriega MD 230 [place] [address] Seasonal allergies Social History Tobacco Use Types [...] Description 01/12/2025 3:00 PM EDT Office Visit [facility] 230 [place] [address] Ernie Noriega MD [address] [place] [address] documented as of this encounter Visit Diagnoses Diagnosis Seasonal allergies Allergic rhinitis, cause unspecified documented in this encounter Additional Health Concerns Assessment Noted Time PHQ-9 Depression Total Score: 0 12/02/19 23 2:38 PM EST documented as of this encounter Care Teams Nuclear Medicine Technologist Relationship Specialty Start Date End Date Ernie Noriega MD 230 [place] [address] PCP - General Internal Medicine 08/25/19 documented as of this encounter
--- OUTSIDE RECORDS SUMMARY | 2024-11-08 16:05 | XMS_ITS | Encounter Summary ---
Author Organization [employer] [facility] Address [address] [place] [address] 7t [place] [address] Care Team Providers Care Family Medicine Chair Name Role Phone Ernie Noriega MD Primary Care Provide r Encounter Details Date Type Department Care Team (Latest Contact Info) Description 03/07/2021 Abstract [facility] CONVERSIONS [...] [facility] MEDICINE 230 [place] [address] Ernie Noriega MD 230 [place] [address] documented as of this encounter Visit Diagnoses Not on filedocumented in this encounter Care Teams Family Medicine Chair Relationship Specialty Start Date End Date Ernie Noriega MD [address] [place] [address] PCP - General Internal Medicine 08/25/19 documented as of this encounter
--- OUTSIDE RECORDS SUMMARY | 2024-11-08 16:05 | XMS_ITS | Encounter Summary ---
Author Organization [employer] Address [address] [place] [address] 7t [place] [address] Care Team Providers Care Financial Aid Manager Name Role Phone Ernie Noriega MD Primary Care Provide r Reason for Visit * Reason Onset Date Comments Med Refill 11/07/2024 Encounter Details Date Type Department Care Team ([facility] st Contact Info) Description 11/07/2024 Refill [facility] 230 [place] [address] Ernie Noriega MD [address] [place] [address] Chronic midline low back pain without sciatica [...] Description 01/12/2025 3:00 PM EDT Office Visit [facility] [address] [place] [address] Ernie Noriega MD [address] [place] [address] documented as of this encounter Visit Diagnoses Diagnosis Chronic midline low back pain without sciatica documented in this encounter Additional Health Concerns Assessment Noted Time PHQ-9 Depression Total Score: 2 01/21/20 24 1:25 PM EDT documented as of this encounter Care Teams Financial Aid Manager Relationship Specialty Start Date End Date Ernie Noriega MD [address] [place] [address] PCP - General Internal Medicine 08/25/19 documented as of this encounter
--- OUTSIDE RECORDS SUMMARY | 2024-11-08 16:05 | XMS_ITS | Encounter Summary ---
Author Organization [facility] Address [address] [place] [address] Care Team Providers Care Senior Civil Engineer Name Role Phone Ernie Merritt MD Primary Care [phone] Encounter Details Date Type Department Care Team (Late st Contact Info) Description 11/04/2024 Telephone Orthopedic Surgery - [place] [facility] [address] [place] [phone] Eulalia Velez Social History Tobacco Use Types Packs/Day Years [...] file Not on file Not on file documented as of this encounter Progress Notes * Eulalia Velez - 11/04/2024 11:08 AM EST Spoke with the patient via spanish medical interpreter regarding possibly moving her surgery to November as we had a cancellation. The patient stated that she would like to keep the surgery on the as she is scheduled to have a cortisone injection in her shoulder. Looking at the patient's appointment desk, that visit is scheduled for 11/23/[address] Lees. documented in this encounter Plan of Treatment Upcoming Encounters Date Type Department Care Team (Latest Contact Info) Description 11/23/2024 11:00 AM EST Office Visit Orthopedic Surgery [facility] [address] [facility] [address] [place] [address] Leroy Lees MD 175 [facility] [address] [place], [place] [phone] 12/07/2024 1:30 PM EST Hospital Encounter [facility] Main [place] [address] [place] [phone] Trista David MD 175 [facility] [address] [place] [address] 12/07/2024 1:30 PM EST - 12/07/2024 3:00 PM EST Surgery [facility] [place] [address] [place] [address] Trista David MD 175 [facility] [address] [place] [phone] LEFT A1 JOAO/TRIGGER FINGER RELEASE INDEX FINGER [05213 (CPT??)] Scheduled Procedures Name Priority Associated Diagnoses Date/Ti me RELEASE TRIGGER FINGER Trigger finger, unspecified finger 12/07/2024 1:30 PM EST documented as of this encounter Visit Diagnoses Not on filedocumented in this encounter Care Teams Senior Civil Engineer Relationship Specialty Start Date End Date Ernie Merritt MD [address] [place] [address] [place] [phone] PCP - General Internal Medicine 05/20/21 documented as of this encounter
--- OUTSIDE RECORDS SUMMARY | 2024-11-08 16:05 | XMS_ITS | Encounter Summary ---
Author Organization [employer] Address [address] [place] [address] 7t [place] [address] Care Team Providers Care Dolly Operator Name Role Phone Ernie Noriega MD Primary Care Provide r Reason for Visit * Reason Comments Med Refill Encounter Details Date Type Department Care Team ([facility] st Contact Info) Description 08/28/2023 Refill [facility] 230 [place] [address] Perlita Woody MD 230 [place] [address] Primary hypertension Social History Tobacco Use Types Packs/Day Years [...] Description 01/12/2025 3:00 PM EDT Office Visit [facility] MEDICINE [address] [place] [address] Ernie Noriega MD 230 [place] [address] documented as of this encounter Visit Diagnoses Diagnosis Primary hypertension Unspecified essential hypertension documented in this encounter Additional Health Concerns Assessment Noted Time PHQ-9 Depression Total Score: 0 12/02/19 23 2:38 PM EST documented as of this encounter Care Teams Dolly Operator Relationship Specialty Start Date End Date Ernie Noriega MD 230 [place] [address] PCP - General Internal Medicine 08/25/19 documented as of this encounter
--- OUTSIDE RECORDS SUMMARY | 2024-11-08 16:05 | XMS_ITS | Encounter Summary ---
Author Organization [employer] [facility] Address [address] [place] [address] 7 [place] [address] Care Team Providers Care Middle School Coach Name Role Phone Ernie Noriega MD Primary Care Provide r Encounter Details Date Type Department Care Team (Late st Contact Info) Description 02/18/2023 Abstract [facility] MEDICINE [address] [place] [phone] Ernie Noriega MD [address] [place] [address] [phone] Social History Tobacco Use Types Packs/Day Years [...] Office Visit [facility] MEDICINE [address] [place] [phone] Ernie Noriega MD [address] [place] [address] [phone] documented as of this encounter Procedures Procedure Name Priority Date/Time Associated Diagnosis Comments COLONOSCOPY Routine 06/15/2013 documented in this encounter Results * Colonoscopy (06/15/2013) Colonoscopy Normal Normal 06/15/2013 Narrative Lis, Chery - 06/15/2013 12:03 PM EDT Recommended 10 years follow up us Historical Provider HEALTH MAINTENANCE Edited Result - Final documented in this encounter Visit Diagnoses Not on filedocumented in this encounter Additional Health Concerns Assessment Noted Time PHQ-9 Depression Total Score: 0 12/02/19 23 2:38 PM EST documented as of this encounter Care Teams Middle School Coach Relationship Specialty Start Date End Date Ernie Noriega MD [address] [place] [address] PCP - General Internal Medicine 08/25/19 documented as of this encounter
--- OUTSIDE RECORDS SUMMARY | 2024-11-08 16:05 | XMS_ITS | Encounter Summary ---
Author Organization [employer] Address [address] [facility] 7t [place] [address] Care Team Providers Care Instructional Systems Specialist Name Role Phone Ernie Noriega MD Primary Care Provide r Reason for Visit * Reason Comments UTI Encounter Details Date Type Department Care Team ([facility] st Contact Info) Description 10/25/2024 1:20 PM EST Office Visit [facility] 230 [place] [address] Ofelia Melgar MD 230 [place] [address] UTI symptoms Social History Tobacco Use Types Packs/Day Years [...] AM EDT documented as of this encounter Last Filed Vital Signs Vital Sign Reading Time Taken Comments Blood Pressure 139/84 10/25/2024 12:58 PM EST Pulse 69 10/25/2024 12:58 PM EST Temperature 36.7 ??C (98.1 ??F) 10/25/2024 12:[address] Respiratory Rate 16 10/25/2024 12:58 PM EST Oxygen Saturation 98% 10/25/2024 12:58 PM EST Inhaled Oxygen Concentration - - Weight 74.8 kg (165 lb) 10/25/2024 12:58 PM EST Height - - Body Mass Index 29.23 10/13/2024 2:49 PM EST documented in this encounter Progress Notes * Ofelia Melgar MD - 10/25/2024 1:20 PM EST Gurdeep Julien is a 59 y.o. female here for evaluation of dysuria and frequency beginning 1 weeks ago. Other associated symptoms include: chills, diarrhea, and hematuria. Fever has been absent. Symptoms which are not present include: abdominal pain, chills, and hematuria. UTI history: none and Last03/2024 . Antibiotic use within past three months: none Treated 04/01/24 for UTI for following isolate: Escherichia coli Quant > 100,000 cfu/mL Escherichia coli: Ampicillin >=32(R) Escherichia coli: Cefazolin <=4(S) Escherichia coli: Ceftriaxone <=0.25(S) Escherichia coli: Gentamicin <=1(S) Escherichia coli: Levofloxacin <=0.12(S) Escherichia coli: Nitrofurantoin 64(I) Escherichia coli: Trimethoprim/Sulfamethoxazole <=20(S) Specimen Source: Urine clean catch Treated with cefadroxile 500 mg BID for 5 days 03/2024 Renal US 04/29/24 RIGHT KIDNEY: 11.2 x 5.2 x 5.3 cm (SAG x AP x TRV). The kidney is normal in size, contour, and echogenicity. Renal cortical thickness is normal. No calculi or focal parenchymal lesions. No hydronephrosis. LEFT KIDNEY: 10.5 x 5.0 x 4.0 cm (SAG x AP x TRV). The kidney is normal in size and echogenicity. Renal cortical thickness is normal. No renal calculi or hydronephrosis. BLADDER: Well distended and normal. Bilateral ureteral jets are demonstrated. Prevoid bladder volume is 189 mL. Postvoid bladder volume is 7.7 mL. Splenule noted adjacent to the left kidney measuring 1.4 x 1.3 x 1.1 cm, similar to prior chest CT. Office Visit on 10/25/2024 Component Date Value Ref Range Status Color, UA 10/25/2024 Yellow Final Clarity, UA 10/25/2024 Clear Final Glucose, UA 10/25/2024 Negative Final Bilirubin, UA 10/25/2024 Negative Final Ketones, UA 10/25/2024 Negative Final Spec Grav, UA 10/25/2024 1.010 Final Blood, UA 10/25/2024 Negative Negative, None Detected Final pH, UA 10/25/2024 5.5 Final Protein, UA 10/25/2024 Negative Final Urobilinogen, UA 10/25/2024 0.2 Final Leukocytes, UA 10/25/2024 Negative Negative, Rare, Trace Final Nitrite, UA 10/25/2024 Negative Negative, None Detected Final Appearance, UA 10/25/2024 OK Final Objective BP 139/84 (BP Location: Right arm, Patient Position: Sitting, BP Cuff Size: Adult) Pulse 69 Temp 98.1 ??F (36.7 ??C) (Oral) Resp 16 Wt 165 lb (74.8 kg) SpO2 98% BMI 29.23 kg/m?? Physical Exam Constitutional: Appearance: Normal appearance. Cardiovascular: Rate and Rhythm: Normal rate and regular rhythm. Heart sounds: Normal heart sounds. Pulmonary: Effort: Pulmonary effort is normal. Breath sounds: Normal breath sounds. Abdominal: Tenderness: There is no abdominal tenderness. Comments: Mild supropubic tenderness No CVA tenderness Musculoskeletal: Cervical back: Normal range of motion and neck supple. Neurological: General: No focal deficit present. Mental Status: She is alert. Psychiatric: Behavior: Behavior normal. Miguelina was seen today for uti. Diagnoses and all orders for this visit: UTI symptoms - POCT urinalysis dipstick manually resulted - Urinalysis, Complete, with Reflex to Culture; Future - sulfamethoxazole-trimethoprim (Bactrim DS) 800-160 MG tablet; Take 1 tablet by mouth 2 times daily for 3 days. Problem List Items Addressed This Visit UTI symptoms Relevant Medications sulfamethoxazole-trimethoprim (Bactrim DS) 800-160 MG tablet Other Relevant Orders POCT urinalysis dipstick manually resulted (Completed) Urinalysis, Complete, with Reflex to Culture Likely acute UTI based on history, exam and urine dip. No clinical evidence of acute abdomen or pyelonephritis. Denies antibiotic use in the past 90 days. Allergies reviewed. -Urinalysis and urine culture sent to the lab -Empiric antibiotics started -Potential adverse effects of the medication reviewed -Discussed strategies to prevent future infections: Increase fluids. Urinate after sex. Avoid bladder irritants. -Report fever, chills, worsening symptoms or abdominal/flank pain -Advised to seek medical attention if no improvement or worsening of symptoms -ER precautions reviewed. documented in this encounter Miscellaneous Notes * Assessment & Plan Note - Ofelia Melgar MD - 10/25/2024 1:16 PM EST Associated Problem(s): UTI symptoms documented in this encounter Plan of Treatment Upcoming Encounters Date Type Department Care Team (Late st Contact Info) Description 01/12/2025 3:00 PM EDT Office Visit [facility] 230 [place] [address] Ernie Noriega MD 230 [place] [address] documented as of this encounter Procedures Procedure Name Priority Date/Time Associated Diagnosis Comments POCT URINALYSIS DIPSTICK Routine 10/25/2024 1:03 PM EST UTI symptoms URINALYSIS, COMPLETE, WITH REFLEX TO CULTURE Routine 10/25/2024 12:00 AM EST UTI symptoms documented in this encounter Results * POCT urinalysis dipstick manually resulted (10/25/2024 1:03 PM EST) Color, UA Yellow Clarity, UA Clear Glucose, UA Negative Bilirubin, UA Negative Ketones, UA Negative Spec Grav, UA 1.010 Blood, UA Negative Negative, None Detected pH, UA 5.5 Protein, UA Negative Urobilinogen, UA 0.2 Leukocytes, UA Negative Negative, Rare, Trace Nitrite, UA Negative Negative, None Detected Appearance, UA OK Urine 10/25/2024 1:03 PM EST Ofelia Melgar MD POINT OF CARE TEST ENTER/E DIT ORDERABLES Final Result * Urinalysis, Complete, with Reflex to Culture (10/25/2024 12:00 AM EST) Color Urine Yellow [facility] Appearance Urine Clear [facility] PH 5.5 5.0 - 9.0 [facility] Glucose Urine UA Negative Negative mg/dL [facility] Urine Blood Negative Negative [facility] Specific [place] - Urine 1.015 1.005 - 1.025 [facility] Urine Protein Negative Neg-Trace mg/dL [facility] Urine Ketones Negative Negative mg/dL [facility] Nitrite Urine Negative Negative [facility] Leukocyte Esterase Urine Negative Negative [facility] RBC Urine 0-2 0 - 2 /HPF [facility] Urine WBC 0-5 0 - 5 /HPF [facility] Urine Squamous Epithelial Cell 0-2 0 - 2 /HPF [facility] Urine Bacteria None Seen None Seen [facility] Hyaline Casts, Urine 0-2 0 - 2 /LPF [facility] Urine 10/25/2024 10/25/2024 Narrative [facility] - 10/25/2024 5:35 PM EST Urine, Clean Catch us Ofelia Melgar MD LAB URINE ORDERABLES Final Result [facility] [address] [place] [phone] documented in this encounter Visit Diagnoses Diagnosis UTI symptoms documented in this encounter Additional Health Concerns Assessment Noted Time PHQ-9 Depression Total Score: 2 01/21/20 24 1:25 PM EDT documented as of this encounter Care Teams Instructional Systems Specialist Relationship Specialty Start Date End Date Ernie Noriega MD [address] [place] [phone] PCP - General Internal Medicine 08/25/19 documented as of this encounter
--- OUTSIDE RECORDS SUMMARY | 2024-11-08 16:05 | XMS_ITS | Encounter Summary ---
Author Organization [employer] Address [address] [place] [address] 7t [place] [address] Care Team Providers Care Property Disposal Officer Name Role Phone Ernie Noriega MD Primary Care Provide r Reason for Visit * Reason Comments Med Refill Encounter Details Date Type Department Care Team ([facility] st Contact Info) Description 08/10/2023 Refill [facility] [address] [place] [address] Ernie Noriega MD [address] [place] [address] Primary osteoarthritis of knee, unspecified laterality; Chronic midline low back pain without sciatica; Cervical radiculopathy; Pain Social History Tobacco Use Types Packs/Day Years Used Date Smoking Tobacco: Former Cigarettes Passive Smoke Exposure: Past Smokeless Tobacco: Never Alcohol Use Standard Drinks/Week Comments Never 0 (1 standard drink = 0.6 oz pur e alcohol) Depression Answer Date Recorded Patient Health Questionnaire-9 Score 0 12/02/2022 Housing Stability Answer Date Recorded What is your housing situation today? I have robni ramírez 07/29/[address] you [...] Description 01/12/2025 3:00 PM EDT Office Visit [facility] [address] [place] [address] Ernie Noriega MD [address] [place] [address] documented as of this encounter Visit Diagnoses Diagnosis Primary osteoarthritis of knee, unspecified laterality Chronic midline low back pain without sciatica Cervical radiculopathy Brachial neuritis or radiculitis nos Pain Generalized pain documented in this encounter Additional Health Concerns Assessment Noted Time PHQ-9 Depression Total Score: 0 12/02/19 23 2:38 PM EST documented as of this encounter Care Teams Property Disposal Officer Relationship Specialty Start Date End Date Ernie Noriega MD [address] [place] [address] PCP - General Internal Medicine 08/25/19 documented as of this encounter
--- OUTSIDE RECORDS SUMMARY | 2024-11-08 16:05 | XMS_ITS | Encounter Summary ---
Author Organization [employer] Address [address] [place] [address] 7t [place] [address] Care Team Providers Care Agricultural Pilot Name Role Phone Ernie Noriega MD Primary Care Provide r Reason for Visit * Reason Comments Med Refill Encounter Details Date Type Department Care Team ([facility] st Contact Info) Description 08/26/2023 Refill [facility] [address] [place] [address] Perlita Woody MD [address] [place] [address] Seasonal allergies Social History Tobacco Use Types [...] Description 01/12/2025 3:00 PM EDT Office Visit [facility] [address] [place] [address] Ernie Noriega MD [address] [place] [address] documented as of this encounter Visit Diagnoses Diagnosis Seasonal allergies Allergic rhinitis, cause unspecified documented in this encounter Additional Health Concerns Assessment Noted Time PHQ-9 Depression Total Score: 0 12/02/19 23 2:38 PM EST documented as of this encounter Care Teams Agricultural Pilot Relationship Specialty Start Date End Date Ernie Noriega MD [address] [place] [address] PCP - General Internal Medicine 08/25/19 documented as of this encounter
--- OUTSIDE RECORDS SUMMARY | 2024-11-08 16:05 | XMS_ITS | Encounter Summary ---
Author Organization [employer] Address [address] [place] [address] 7t [place] [address] Care Team Providers Care Safety Instructor Name Role Phone Ernie Noriega MD Primary Care Provide r Reason for Visit * Reason Onset Date Comments Med Refill 11/01/2024 Encounter Details Date Type Department Care Team ([facility] st Contact Info) Description 11/01/2024 Refill [facility] [address] [place] [address] Sugar Mitchell MD [address] [place] [address] Seasonal allergies Social History Tobacco Use Types [...] Description 01/12/2025 3:00 PM EDT Office Visit [facility] [address] [place] [address] Ernie Noriega MD [address] [place] [address] documented as of this encounter Visit Diagnoses Diagnosis Seasonal allergies Allergic rhinitis, cause unspecified documented in this encounter Additional Health Concerns Assessment Noted Time PHQ-9 Depression Total Score: 2 01/21/20 24 1:25 PM EDT documented as of this encounter Care Teams Safety Instructor Relationship Specialty Start Date End Date Ernie Noriega MD [address] [place] [address] PCP - General Internal Medicine 08/25/19 documented as of this encounter
--- OUTSIDE RECORDS SUMMARY | 2024-11-08 16:05 | XMS_ITS | Encounter Summary ---
Author Organization [employer] Address [address] [place] [address] 7t [place] [address] Care Team Providers Care Appliance Line Assembler Name Role Phone Ernie Noriega MD Primary Care Provide r Reason for Visit * Reason Onset Date Comments Med Refill 10/27/2023 Encounter Details Date Type Department Care Team ([facility] st Contact Info) Description 10/27/2023 Refill [facility] [address] [place] [address] Ernie Noriega MD [address] [place] [address] Seasonal allergies; Pain Social History Tobacco Use Types Packs/Day [...] 3:00 PM EDT Office Visit [facility] [address] [place] [address] Ernie Noriega MD [address] [place] [address] documented as of this encounter Visit Diagnoses Diagnosis Seasonal allergies Allergic rhinitis, cause unspecified Pain Generalized pain documented in this encounter Additional Health Concerns Assessment Noted Time PHQ-9 Depression Total Score: 0 12/02/19 23 2:38 PM EST documented as of this encounter Care Teams Appliance Line Assembler Relationship Specialty Start Date End Date Ernie Noriega MD [address] [place] [address] PCP - General Internal Medicine 08/25/19 documented as of this encounter
--- OUTSIDE RECORDS SUMMARY | 2024-11-08 16:05 | XMS_ITS | Encounter Summary ---
Author Organization [employer] Address [address] [place] [address] 7t [place] [address] Care Team Providers Care School Library Media Program Director Name Role Phone Ernie Noriega MD Primary Care Provide r Reason for Visit * Reason Onset Date Comments Med Refill 11/01/2024 Encounter Details Date Type Department Care Team ([facility] st Contact Info) Description 11/01/2024 Refill [facility] [address] [place] [address] Sugar Mitchell MD [address] [place] [address] Seasonal allergies Social History Tobacco Use Types [...] 01/12/2025 3:00 PM EDT Office Visit [facility] [address] [place] [address] Ernie Noriega MD [address] [place] [address] documented as of this encounter Visit Diagnoses Diagnosis Seasonal allergies Allergic rhinitis, cause unspecified documented in this encounter Additional Health Concerns Assessment Noted Time PHQ-9 Depression Total Score: 2 01/21/20 24 1:25 PM EDT documented as of this encounter Care Teams School Library Media Program Director Relationship Specialty Start Date End Date Ernie Noriega MD [address] [place] [address] PCP - General Internal Medicine 08/25/19 documented as of this encounter
--- OUTSIDE RECORDS SUMMARY | 2024-11-08 16:05 | XMS_ITS | Encounter Summary ---
Author Organization [employer] Address [address] [facility] 7t [place] [address] Care Team Providers Care General Accounting Manager Name Role Phone Ernie Noriega MD Primary Care Provide r Encounter Details Date Type Department Care Team (Latest Contact Info) Description 10/25/2024 Travel Social History Tobacco Use Types Packs/Day Years [...] Description 01/12/2025 3:00 PM EDT Office Visit [facility] [address] [place] [address] Ernie Noriega MD 230 [place] [address] documented as of this encounter Visit Diagnoses Not on filedocumented in this encounter Additional Health Concerns Assessment Noted Time PHQ-9 Depression Total Score: 2 01/21/20 24 1:25 PM EDT documented as of this encounter Care Teams General Accounting Manager Relationship Specialty Start Date End Date Ernie Noriega MD [address] [place] [address] PCP - General Internal Medicine 08/25/19 documented as of this encounter
--- OUTSIDE RECORDS SUMMARY | 2024-11-08 16:05 | XMS_ITS | Encounter Summary ---
Author Organization [employer] Address [address] [place] [address] 7t [place] [address] Care Team Providers Care Mobile Web Application Developer Name Role Phone Ernie Noriega MD Primary Care Provide r Reason for Visit * Reason Onset Date Comments Med Refill 11/04/2023 Encounter Details Date Type Department Care Team ([facility] st Contact Info) Description 11/04/2023 Refill [facility] 230 [place] [address] Ernie Noriega MD 230 [place] [address] Pain Social History Tobacco Use Types Packs/Day [...] Description 01/12/2025 3:00 PM EDT Office Visit [facility] [address] [place] [address] Ernie Noriega MD [address] [place] [address] documented as of this encounter Visit Diagnoses Diagnosis Pain Generalized pain documented in this encounter Additional Health Concerns Assessment Noted Time PHQ-9 Depression Total Score: 0 12/02/19 23 2:38 PM EST documented as of this encounter Care Teams Mobile Web Application Developer Relationship Specialty Start Date End Date Ernie Noriega MD [address] [place] [address] PCP - General Internal Medicine 08/25/19 documented as of this encounter
--- OUTSIDE RECORDS SUMMARY | 2024-11-08 16:05 | XMS_ITS | Encounter Summary ---
Author Organization [employer] Address [address] [place] [address] 7t [place] [address] Care Team Providers Care Sizer Hand Name Role Phone Ernie Noriega MD Primary Care Provide r Reason for Visit * Reason Onset Date Comments Med Refill 04/16/2024 Encounter Details Date Type Department Care Team ([facility] st Contact Info) Description 04/16/2024 Refill [facility] [address] [place] [address] Ernie Noriega MD [address] [place] [address] Essential hypertension Social History Tobacco Use Types Packs/Day [...] Description 01/12/2025 3:00 PM EDT Office Visit [facility] 230 [place] [address] Ernie Noriega MD [address] [place] [address] documented as of this encounter Visit Diagnoses Diagnosis Essential hypertension Unspecified essential hypertension documented in this encounter Additional Health Concerns Assessment Noted Time PHQ-9 Depression Total Score: 2 01/21/20 24 1:25 PM EDT documented as of this encounter Care Teams Sizer Hand Relationship Specialty Start Date End Date Ernie Noriega MD [address] [place] [address] PCP - General Internal Medicine 08/25/19 documented as of this encounter
--- OUTSIDE RECORDS SUMMARY | 2024-11-08 16:05 | XMS_ITS | Encounter Summary ---
Author Organization [employer] Address [address] [place] [address] 7t [place] [address] Care Team Providers Care Sales And Customer Relations Rep Name Role Phone Ernie Noriega MD Primary Care Provide r Reason for Visit * Reason Onset Date Comments Med Refill 10/27/2023 Encounter Details Date Type Department Care Team ([facility] st Contact Info) Description 10/27/2023 Refill [facility] 230 [place] [address] Perlita Woody MD [address] [place] [address] Primary hypertension Social History Tobacco Use Types [...] 01/12/2025 3:00 PM EDT Office Visit [facility] [address] [place] [address] Ernie Noriega MD [address] [place] [address] documented as of this encounter Visit Diagnoses Diagnosis Primary hypertension Unspecified essential hypertension documented in this encounter Additional Health Concerns Assessment Noted Time PHQ-9 Depression Total Score: 0 12/02/19 23 2:38 PM EST documented as of this encounter Care Teams Sales And Customer Relations Rep Relationship Specialty Start Date End Date Ernie Noriega MD 230 [place] [address] PCP - General Internal Medicine 08/25/19 documented as of this encounter
--- OUTSIDE RECORDS SUMMARY | 2024-11-08 16:05 | XMS_ITS | Encounter Summary ---
Author Organization [employer] Address [address] [place] [address] 7t [place] [address] Care Team Providers Care Low Voltage Electrician Name Role Phone Ernie Noriega MD Primary Care Provide r Reason for Visit * Reason Comments Med Refill Encounter Details Date Type Department Care Team ([facility] st Contact Info) Description 10/16/2023 Refill [facility] [address] [place], [place] [phone] Ernie Noriega MD [address] [place] [address] Pain Social History Tobacco Use Types Packs/Day [...] [facility] [address] [place] [address] Ernie Noriega MD [address] [place] [address] documented as of this encounter Visit Diagnoses Diagnosis Pain Generalized pain documented in this encounter Additional Health Concerns Assessment Noted Time PHQ-9 Depression Total Score: 0 12/02/19 23 2:38 PM EST documented as of this encounter Care Teams Low Voltage Electrician Relationship Specialty Start Date End Date Ernie Noriega MD [address] [place] [address] PCP - General Internal Medicine 08/25/19 documented as of this encounter
--- OUTSIDE RECORDS SUMMARY | 2024-11-08 16:05 | XMS_ITS | Encounter Summary ---
Author Organization [employer] Address [address] [place] [address] 7t [place] [address] Care Team Providers Care Echo Vascular Technologist Name Role Phone Ernie Noriega MD Primary Care Provide r Reason for Visit * Reason Onset Date Comments Med Refill 04/24/2024 Encounter Details Date Type Department Care Team ([facility] st Contact Info) Description 04/24/2024 Refill [facility] 230 [place] [address] Ernie Noriega MD [address] [place] [address] Essential hypertension Social History Tobacco Use Types [...] Description 01/12/2025 3:00 PM EDT Office Visit [facility] [address] [place] [address] Ernie Noriega MD [address] [place] [address] documented as of this encounter Visit Diagnoses Diagnosis Essential hypertension Unspecified essential hypertension documented in this encounter Additional Health Concerns Assessment Noted Time PHQ-9 Depression Total Score: 2 01/21/20 24 1:25 PM EDT documented as of this encounter Care Teams Echo Vascular Technologist Relationship Specialty Start Date End Date Ernie Noriega MD [address] [place] [address] PCP - General Internal Medicine 08/25/19 documented as of this encounter
--- OUTSIDE RECORDS SUMMARY | 2024-11-08 16:05 | XMS_ITS | Encounter Summary ---
Author Organization [employer] Address [address] [place] [address] 7 [place] [address] Care Team Providers Care Benefits Counselor Name Role Phone Ernie Noriega MD Primary Care Provide r Reason for Visit * Reason Onset Date Comments Med Refill 10/25/2024 Encounter Details Date Type Department Care Team ([facility] Contact Info) Description 10/25/2024 Telephone [facility] [address] [place] [address] Ernie Noriega MD [address] [place] [address] Med Refill Social History Tobacco Use Types [...] encounter Miscellaneous Notes * Telephone Encounter - Catalina West RN - 10/25/2024 1:12 PM EST TC placed to pt and LVM to call back the office regarding Gabapentin prescription * Telephone Encounter - Shirley Kwong - 10/25/2024 12:23 PM EST Pt walked in stating pcp prescribed pt 300mg of gabapentin pt states she needs 600mg due to medication only lasting a month. documented in this encounter Plan of Treatment Upcoming Encounters Date Type Department Care Team (Late st Contact Info) Description 01/12/2025 3:00 PM EDT Office Visit [facility] [address] [place] [address] Ernie Noriega MD [address] [place] [address] documented as of this encounter Visit Diagnoses Not on filedocumented in this encounter Additional Health Concerns Assessment Noted Time PHQ-9 Depression Total Score: 2 01/21/20 24 1:25 PM EDT documented as of this encounter Care Teams Benefits Counselor Relationship Specialty Start Date End Date Ernie Noriega MD [address] [place] [address] PCP - General Internal Medicine 08/25/19 documented as of this encounter
--- OUTSIDE RECORDS SUMMARY | 2024-11-08 16:05 | XMS_ITS | Encounter Summary ---
Author Organization [employer] Address [address] [place] [address] 7t [place] [address] Care Team Providers Care Tack Maker Name Role Phone Ernie Noriega MD Primary Care Provide r Reason for Visit * Reason Onset Date Comments Med Refill 10/25/2023 Encounter Details Date Type Department Care Team ([facility] st Contact Info) Description 10/25/2023 Refill [facility] 230 [place] [address] Perlita Woody MD [address] [place] [address] Primary hypertension Social History Tobacco Use Types [...] Description 01/12/2025 3:00 PM EDT Office Visit [facility] [address] [place] [address] Ernie Noriega MD 230 [place] [address] documented as of this encounter Visit Diagnoses Diagnosis Primary hypertension Unspecified essential hypertension documented in this encounter Additional Health Concerns Assessment Noted Time PHQ-9 Depression Total Score: 0 12/02/19 23 2:38 PM EST documented as of this encounter Care Teams Tack Maker Relationship Specialty Start Date End Date Ernie Noriega MD [address] [place] [address] PCP - General Internal Medicine 08/25/19 documented as of this encounter
--- OUTSIDE RECORDS SUMMARY | 2024-11-08 16:06 | XMS_ITS | Encounter Summary ---
Author Organization [facility] Address [address] [place] [address] 7t [place] [address] Care Team Providers Care Pinking Machine Operator Name Role Phone Ernie Noriega MD Primary Care Provide r Encounter Details Date Type Department Care Team ([facility] Contact Info) Description 12/09/2022 Orders Only [facility] [address] [place] [address] Suha Alexander, RN Social History Tobacco Use Types Packs/Day Years [...] Orientation Straight 08/11/2022 10 :15 AM EDT COVID-19 Exposure Response Date Recorded In the last 10 days, have yo u been in contact with someone who was confirmed or suspected to have Coronavirus/COVID-19? No / Unsure 12/02/2022 2:22 PM EST documented as of this encounter Plan of Treatment Upcoming Encounters Date Type Department Care Team ([facility] Contact Info) Description 01/12/2025 3:00 PM EDT Office Visit [facility] 230 [place] [address] Ernie Noriega MD 230 [place] [address] documented as of this encounter Procedures Procedure Name Priority Date/Time Associated Diagnosis Comments BI MAMMOGRAM SCREENING TOMOSYNTHESIS BILATERAL Routine 12/23/2022 11:35 AM EDT documented in this encounter Results * BI Mammogram Screening Tomosynthesis Bilateral (12/23/2022 11:35 AM EDT) Anatomical Region Laterality Modality Breast Bilateral Mammography 12/23/2022 11:3 5 AM EDT Narrative 12/24/2022 5:15 PM EDT ? [facility] [place] ? [address] ?[place] [id number] ? Mammography Report ? Signed ? Patient: Miguelina Watson ?MR#: ?? [id number] ? : 1965 ?Acct:[id number] ? Age/Sex: 57 / F ?ADM Date: 12/23/22 ? Loc: HO.MAMMO ? Attending Dr: Ernie Merritt MD ? Ordering Physician: Ernie Merritt MD ?Resu ?? lts: 1Negative ? Date of Service: 12/23/22 ?Follow Up: 1 Year From Orig ?? inal Mammogram ? Procedure(s): MM tomosynthesis screening BI ?? Accession Number(s): [id number] ? cc: Ernie Merritt MD ? EXAMINATION: ?? MM SCREENING DIGITAL BREAST TOMOSYNTHESIS, BILATERAL ? CLINICAL INFORMATION: ? Screening. Asymptomatic. ? The lifetime risk of breast cancer based on the Tyrer-Cuzick Model is ?? 5.1%. ? COMPARISON: ?? Mammography: November 25, 2021 and studies dating back to September 01, ?? 2016 ? TECHNIQUE: ?? Digital breast tomosynthesis is performed in both the craniocaudal and ?? mediolateral oblique views along with computer-aided detection (CAD). ?? Synthesized 2D images are generated from the tomosynthesis. ? FINDINGS: ?? There are scattered areas of fibroglandular density (ACR BI-RADS breast ?? composition Category b). ? There are no significant masses, abnormal calcifications, or other ?? abnormalities. ? MM/MM tomosynthesis screening BI ?? IMPRESSION: ?? No significant changes from prior exam. ? ASSESSMENT: ? BI-RADS 1: Negative ? RECOMMENDATION: ?? Routine annual mammography screening. ? This patient's information was entered into a reminder system with a ?? target due date for their next mammogram. ? Dictated By: ?Eyad Zelaya MD ? Signed By: ?<Electronically signed by Eyad Zelaya MD in OV> ?12/24/22 1712 ? DD/ 1135 ? TD/TT: ? Reconstructive Surgeon: SK ? Procedure Note Tiesha, Rene - 12/24/2022 [facility] [address] [place] [address] Dr. [place], [place] T [id number] Mammography Report Signed [id number] : 1965Acct:[id number] Age/Sex: 57 / FADM Date: 12/23/22 Loc: [facility] Attending Dr: Ernie Merritt MD Ordering Physician: Ernie Merritt MDResu lts: 1Negative Date of Service: 12/23/22Follow Up: 1 Year From Orig inal Mammogram Procedure(s): MM tomosynthesis screening BI Accession Number(s): [id number] cc: Ernie Merritt MD EXAMINATION: MM SCREENING DIGITAL BREAST TOMOSYNTHESIS, BILATERAL CLINICAL INFORMATION: Screening. Asymptomatic. The lifetime risk of breast cancer based on the Tyrer-Cuzick Model is 5.1%. COMPARISON: Mammography: November 25, 2021 and studies dating back to September 01, 2016 TECHNIQUE: Digital breast tomosynthesis is performed in both the craniocaudal and mediolateral oblique views along with computer-aided detection (CAD). Synthesized 2D images are generated from the tomosynthesis. FINDINGS: There are scattered areas of fibroglandular density (ACR BI-RADS breast composition Category b). There are no significant masses, abnormal calcifications, or other abnormalities. MM/MM tomosynthesis screening BI IMPRESSION: No significant changes from prior exam. ASSESSMENT: BI-RADS 1: Negative RECOMMENDATION: Routine annual mammography screening. This patient's information was entered into a reminder system with a target due date for their next mammogram. Dictated By: Eyad Zelaya MD Signed By: <Electronically signed by Eyad Zelaya MD in OV> 12/24/22 1712 DD/ 1135 TD/TT: Reconstructive Surgeon: [facility] External Provider IMG BI PROCEDURES Edited Result - Final documented in this encounter Visit Diagnoses Not on filedocumented in this encounter Additional Health Concerns Assessment Noted Time PHQ-9 Depression Total Score: 0 12/02/19 23 2:38 PM EST documented as of this encounter Care Teams Pinking Machine Operator Relationship Specialty Start Date End Date Ernie Noriega MD [address] [place] [address] PCP - General Internal Medicine 08/25/19 documented as of this encounter
--- OUTSIDE RECORDS SUMMARY | 2024-11-08 16:06 | XMS_ITS ---
Author Organization [facility] Address [address] [place] [address] Care Team Providers Care Injection Molding Supervisor Name Role Phone Milton Ro MD, Ernie Primary Care Provide r Rodrick Juarez [phone] REASON FOR VISIT screening Encounters Encounter Location Date Provider Diagnosis [facility] [address] [place], [place] [id number] 02/03/2024 Rodrick Millan PLAN OF TREATMENT No Information
--- OUTSIDE RECORDS SUMMARY | 2024-11-08 16:06 | XMS_ITS | Encounter Summary ---
Author Organization [employer] Address [address] [place] [address] [address] [place] [address] Care Team Providers Care Toe Puncher Name Role Phone Ernie Noriega MD Primary Care Provide r Reason for Visit * Reason Onset Date Comments Med Refill 09/18/2023 Encounter Details Date Type Department Care Team ([facility] st Contact Info) Description 09/18/2023 Telephone [facility] [address] [place] [address] Ernie Noriega MD [address] [place], [place] [phone] Med Refill Social History Tobacco Use Types [...] * Telephone Encounter - Tiffanie Emmanuel - 09/18/2023 1:01 PM EST Tc from pt requesting med refill on traMADol (Ultram) 50 MG tablet Please sent to [facility]/pharmacy #[id number] [place], [place] - [address] [place] [address] documented in this encounter Plan of Treatment Upcoming Encounters Date Type Department Care Team (Late st Contact Info) Description 01/12/2025 3:00 PM EDT Office Visit [facility] [address] [place], [place] [phone] Ernie Noriega MD [address] [place] [address] documented as of this encounter Visit Diagnoses Not on filedocumented in this encounter Additional Health Concerns Assessment Noted Time PHQ-9 Depression Total Score: 0 12/02/19 23 2:38 PM EST documented as of this encounter Care Teams Toe Puncher Relationship Specialty Start Date End Date Ernie Noriega MD [address] [place], [place] [phone] PCP - General Internal Medicine 08/25/19 documented as of this encounter
--- OUTSIDE RECORDS SUMMARY | 2024-11-08 16:06 | XMS_ITS | Clinical Summary ---
Author Organization [employer] Address [address] [place] [address] [address] [place] [address] Care Team Providers Care Rubber Compounder Name Role Phone Ernie Noriega MD Primary Care Provide r Allergies No known active allergies Medications zolpidem (Ambien) 10 MG tablet Take 1 tablet by mouth. 09/29/20 19 Active albuterol 108 (90 Base) MCG/ACT inhaler Inhale 2 puffs every 4 (four) hours if needed. 08/25/20 19 Active Fluticasone-Salme terol 250-50 MCG/ACT aerosol powder Inhale 1 puff every 12 (twelve) hours. Active Banophen 25 MG capsule Take 1-2 capsules by mouth if needed at bedtime. 11/10/19 23 Active escitalopram (Lexapro) 5 MG tablet Take 1 tablet by mouth in the morning. 11/01/19 23 Active tamsulosin (Flomax) 0.4 MG 24 hr capsule Take 1 capsule by mouth 1 (one) time each day. 09/23/20 22 Active Multiple Vitamins-Minerals (Centrum Women) tablet Take 1 tablet by mouth 1 (one) time each day. OTC Active omega-3 (Fish Oil) 1000 MG capsule Take 1,000 mg by mouth in the morning. OTC Active valACYclovir (Valtrex) 1 g tablet Take 2 tabs twice daily for one day per flare 12 tablet 02/24/20 23 Active omeprazole (PriLOSEC) [address] capsuleIndication s:Gastritis without bleeding, unspecified chronicity, unspecified gastritis type TAKE 1 CAPSULE BY MOUTH EVERY DAY BEFORE A MEAL 90 capsule 3 12/15/19 24 Active Blood Pressure kitIndications:Es sential hypertension Use daily 1 kit 07/16/20 24 Active montelukast (Singulair) 10 MG tabletIndications :Mild persistent asthma without complication TAKE 1 TABLET BY MOUTH EVERY DAY 90 tablet 2 06/07/20 24 Active hydroCHLOROthiazi de (HYDRODiuril) 25 MG tabletIndications :Primary hypertension TOME 1 TABLETA POR VIA ORAL TODOS LOS SUAREZ EN LA MANANA 90 tablet 08/17/20 24 Active diclofenac (Cataflam) 50 MG tabletIndications :Ischial pain, right TAKE 1 TABLET BY MOUTH TWICE A DAY 60 tablet 3 09/20/20 24 Active lidocaine (Lidoderm) 5 % patchIndications: Primary osteoarthritis of knee, unspecified laterality APPLY 1 TO 2 PATCHES TOPICALLY AND LEAVE ON UP TO 12 HOURS DAILY IF NEEDED FOR PAIN 60 patch 1 09/20/20 24 Active Acetaminophen Extra Strength 500 MG tabletIndications :Pain TAKE 1 TABLET BY MOUTH EVERY 12 HOURS IF NEEDED FOR PAIN 60 tablet 3 10/11/20 24 Active gabapentin (Neurontin) 300 MG capsuleIndication s:Chronic midline low back pain without sciatica Take 2 capsules (600 mg) by mouth 3 times daily. 180 capsule 1 10/13/19 25 Active albuterol (2.5 MG/3ML) 0.083% nebulizer solution INHALE 1 VIAL (3ML) VIA NEBULIZER THREE TIMES A DAY 75 mL 1 11/03/19 25 Active fluticasone (Flonase) 50 MCG/ACT nasal sprayIndications: Seasonal allergies USE 2 SPRAYS INTO EACH NOSTRIL 2 TIMES DAILY 48 mL 11/03/19 25 Active Acetaminophen Extra Strength 500 MG tabletIndications :Pain TAKE 1 TABLET BY MOUTH EVERY 12 HOURS IF NEEDED FOR PAIN 60 tablet 3 04/26/20 24 2023 Discontinued albuterol (2.5 MG/3ML) 0.083% nebulizer solution INHALE 1 VIAL (3ML) VIA NEBULIZER THREE TIMES A DAY 75 mL 1 08/15/20 24 2024 Discontinued fluticasone (Flonase) 50 MCG/ACT nasal sprayIndications: Seasonal allergies USE 2 SPRAYS INTO EACH NOSTRIL 2 TIMES DAILY 48 mL 08/15/20 24 2024 Discontinued(R eorder (will not trigger notification to Pharmacy)) gabapentin (Neurontin) 300 MG capsuleIndication s:Chronic midline low back pain without sciatica,Cervical radiculopathy TOME 1 CAPSULA POR VIA ORAL ABRAHAM VECES AL FERNANDO 90 capsule 11 09/28/20 24 2024 Discontinued(R eorder (will not trigger notification to Pharmacy)) albuterol (2.5 MG/3ML) 0.083% nebulizer solution INHALE 1 VIAL (3ML) VIA NEBULIZER THREE TIMES A DAY 75 mL 1 10/17/19 25 2024 Discontinued(R eorder (will not trigger notification to Pharmacy)) sulfamethoxazole- trimethoprim (Bactrim DS) 800-160 MG tabletIndications :Urinary Tract Infection Take 1 tablet by mouth 2 times daily for 3 days. 6 tablet 10/25/192024 Active Problems Problem Noted Date Diagnosed Date UTI symptoms 10/25/2024 Assessment & Plan (10/25/2024 1:16 PM EST): Tubular adenoma of colon 06/07/2024 Assessment & Plan (06/07/2024 12:52 PM EDT): Seen on colonoscopy 03/18/2024 Dr Millan, 5 years recommended Ischial pain, right 06/07/2024 Assessment & Plan (06/07/2024 1:57 PM EDT): Pt s/p fall, landed on her buttocks while taking a shower in her bath tub On exam large ecchymosis right buttock. Pt c/o pain when sitting Plan: Plain films of her pelvis and coccyx Donut sit NSAIDS Dysuria 04/01/2024 Assessment & Plan (04/01/2024 4:48 PM EDT): -urine dipstick today : blood large, ketones trace,protein 100, nitrates neg and LE small Will tx empirically for possible UTI for cystitis w no clinical finding for pyelonephritis ,given hematuria at her age and chronic bladder complaints will obtain image -UA w reflex to cx -bladder US to r/o masses/stones -start cefadroxile 500 mg BID for 5 days ,will call pt if need to change ATB or stop -pyridium x 3 days -tylenol prn -alarm signs and Symptoms discussed -continue care w urologist -PCP apt 06/07/2024 Hematuria 04/01/2024 Overweight (BMI 25.0-29.9) 02/11/2024 Assessment & Plan (02/11/2024 2:30 PM EDT): Patient has been counseled and educated about diet and exercise. Personal goal of weight loss discussed Varicose veins of leg with pain, right Assessment & Plan (06/07/2024 12:50 PM EDT): Painful Evaluated by Dr Adarsh Villalba, last note from 03/2024 Assessment & Plan (11/03/2023 1:29 PM EST): Painful Will refer to Dr Adarsh Villalba Pre-diabetes 05/28/2023 Assessment & Plan (11/03/2023 1:20 PM EST): Random Glucose was 151 but non fasting Fasting was 110 08/11/2023 Assessment & Plan (05/28/2023 3:36 PM EDT): Glucose was 151 but non fasting Will repeat fasting Chronic tension-type headache, not intractable 0 05/28/2023 Assessment & Plan (05/28/2023 3:45 PM EDT): Uses Tramadol PRN Preventative health care 03/12/2023 Assessment & Plan (06/07/2024 12:53 PM EDT): Mammogram: 01/01/2024 NL Pap Smear: 11/21/2020 Negative with co-testing 5 yr f/u Colonoscopy: 03/18/2024 Tubular adenoma, 5 year follow up recommended Dr. Millan Assessment & Plan (02/11/2024 2:31 PM EDT): Mammogram: 01/01/2024 NL Pap Smear: 11/21/2020 Negative with co-testing 5 yr f/u Colonoscopy: 06/15/2013. Already scheduled for Follow up April 04, 2024 Assessment & Plan (05/28/2023 3:46 PM EDT): Mammogram: 12/23/2022 NL Pap Smear: 11/21/2020 Negative with co-testing 5 yr f/u Colonoscopy: 06/15/2013. Already scheduled for Follow up Assessment & Plan (03/12/2023 11:31 AM EDT): Mammogram: 12/23/2022 NL Pap Smear: 11/21/2020 Negative with co-testing 5 yr f/u Colonoscopy: 06/15/2013. Will refer back Neuropathic pain of right lower extremity 2022 Assessment & Plan (01/12/2023 2:03 PM EDT): Pt here explicitly requesting a second opinion with a Neurologist given her moderate to severe and debilitating right Lower extremity Pain Of note she has chronic low back pain, treated at [facility] by Dr Clint Newberry. Hx of AP fusion from L4-sacrum in 2003. She has received epidural injections initially with good results but that is no longer the case. Pt developed lumbar spinal stenosis and on 01/14/2021 underwent Posterior neural foraminotomy L2-L3 by Dr. Bailey. She was admitted to [facility] from 11/13/2022 until 11/20/2022 due to worsening low back pain with radiation to her right thigh and right leg after an experimental thoracic spinal stimulation procedure at the surgery center [facility] (She was referred there by [facility]). Procedure was aborted after pt experienced severe pain during the procedure. Patient treated with multiple rounds of pain medication with reported pain of 8/10. Acute pain service recommended increase in gabapentin dose hydromorphone and diazepam. Per Dr. Bethea, no further inpatient intervention needed. Patient to continue PT. Condition stabilized and patient was discharged home to follow up with us. Her Gabapentin was increased to 600 mg po TID Today she says she is always in pain. She requires assistance walking to bathroom during the night or morning. She does not want to follow-up with [facility] d/t the severe pain she experienced with her procedure which was attempted placement of thoracic spinal stimulator. She completed PT at home and she has been trying acupuncture with minimal benefit. Pt wants a second opinion by a Neurologist. She uses Tramadol for pain. Referral to neurology will be placed Hyperlipidemia 12/04/2022 Shoulder pain, left 12/04/2022 Assessment & Plan (01/06/2023 3:24 PM EDT): Pt under the care of Orthopaedic specialist Dr Lees at [facility]. Pt would like to hold off on procedure until her back feels better. I contacted the office of Orthopaedic surgeon who stated this was an elective procedure and was ok with delaying until pt felt ready Assessment & Plan (12/04/2022 8:31 AM EST): Pt had initially come in for a Preoperative exam. Under the care of Orthopaedic specialist Dr Lees at [facility]. Pt would like to hold off on procedure until her back feels better. I contacted the office of Orthopaedic surgeon who stated this was an elective procedure and was ok with delaying until pt felt ready Essential hypertension 10/03/2022 Assessment & Plan (10/13/2024 3:36 PM EST): Patient with Hypertension currently controlled on a regimen of Hctz 25 mg po daily Most recent electrolytes, Bun and Creatinine done on: Lab Results Component Value Date NA 139 01/21/2024 NA 141 05/13/2023 K 3.9 01/21/2024 K 3.5 05/13/2023 CL 104 01/21/2024 CL 103 05/13/2023 BUN 26 (H) 01/21/2024 BUN 15 05/13/2023 CREATININE 0.79 01/21/2024 CREATININE 0.78 05/13/2023 were within normal limits. Plan: Continue current regimen patient advised to adhere to a low sodium diet, encouraged about medication compliance, counseled about weight loss. Assessment & Plan (06/07/2024 1:52 PM EDT): Patient with Hypertension currently controlled on a regimen of Hctz 25 mg po daily Most recent electrolytes, Bun and Creatinine done on: 01/21/2024 were within normal limits. Plan: Continue current regimen patient advised to adhere to a low sodium diet, encouraged about medication compliance, counseled about weight loss. Assessment & Plan (02/11/2024 2:21 PM EDT): Patient with Hypertension currently controlled on a regimen of Hctz 25 mg po daily Most recent electrolytes, Bun and Creatinine done on: 01/21/2024 were within normal limits. Plan: Continue current regimen patient advised to adhere to a low sodium diet, encouraged about medication compliance, counseled about weight loss. Assessment & Plan (01/21/2024 1:54 PM EDT): Patient with Hypertension currently controlled on a regimen of Hctz 25 mg po daily Most recent electrolytes, Bun and Creatinine done on: 05/13/2023 were within normal limits. Today will order a repeat BMP Plan: Continue current regimen patient advised to adhere to a low sodium diet, encouraged about medication compliance, counseled about weight loss. Pt instructed to take his hydrochlorothiazide with a small sip of water to prevent her BP from going up during the procedure Assessment & Plan (11/03/2023 1:19 PM EST): Patient with Hypertension currently controlled on a regimen of Hctz 25 mg po daily Most recent electrolytes, Bun and Creatinine done on: 05/13/2023 were within normal limits. Plan: Continue current regimen patient advised to adhere to a low sodium diet, encouraged about medication compliance, counseled about weight loss. Assessment & Plan (05/28/2023 3:34 PM EDT): Patient with Hypertension currently controlled on a regimen of Hctz 25 mg po daily Most recent electrolytes, Bun and Creatinine done on: 05/2023 were within normal limits. Plan: Continue current regimen patient advised to adhere to a low sodium diet, encouraged about medication compliance, counseled about weight loss. Grade I hemorrhoids 12/21/2018 Cervical radiculopathy 09/22/2017 Assessment & Plan (11/03/2023 1:23 PM EST): Patient is here for a f/u She is s/p C4-5, C5-C6 ACDF. MRI of her C-spine on 05/25/2017 showed a right paramedian disc herniation C4-C5 slightly impinging on spinal cord with mild degree of spondylitic myelomalacia with bilateral neural foraminal narrowing ( left > right ) . central disc herniation at C5-C6, and C6-C7 as well as progression of facet arthropathy C7- T1 for pain control she was taking medication: Naproxen and Gabapentin She also has a [employer] [place] Card recommended by [facility] treating physician. pt utilizes the liquid form. She is no longer under the care of [facility] I had been prescribing tramadol to use 1 tab po q 8 hrs prn for pain and Nabumetone 750 mg po daily ( 06/05/2022) Pt used to follow with Neurosurgery Dr Randhawa who performed a C4-5, C5-6 anterior Cervical discectomy with placement of artificial disc and last saw her 11/18/2018 NCS of her right upper extremity that was Normal Pt received Pt with no good results in the past. Most recent MRI Cervical Spine 09/30/2023 showed: IMPRESSION: There are chronic postoperative changes of an anterior cervical discectomy and fusion at C4-C5 and C5-C6. There is multilevel degenerative spondylosis below the fusion. Slight anterolisthesis of C7 on T1 related to advanced facet degenerative changes at this level. No canal compromise or cord compression. No abnormal intramedullary signal changes. There are varying degrees of neuroforaminal encroachment related to uncovertebral joint spurring and facet degenerative change as described above. Assessment & Plan (05/28/2023 3:26 PM EDT): Patient is here for a f/u She is s/p C4-5, C5-C6 ACDF. Initially she was happy with her post op results and reported no longer pain on her arm. Previous MRI of her C-spine on 05/25/2017 showed a right paramedian disc herniation C4-C5 slightly impinging on spinal cord with mild degree of spondylitic myelomalacia with bilateral neural foraminal narrowing ( left > right ) . central disc herniation at C5-C6, and C6-C7 as well as progression of facet arthropathy C7- T1 for pain control she was taking medication: Naproxen and Gabapentin She also has a [employer] [place] Card recommended by [facility] treating physician. pt utilizes the liquid form. She is no longer under the care of [facility] I had been prescribing tramadol to use 1 tab po q 8 hrs prn for pain and Nabumetone 750 mg po daily ( 06/05/2022) Pt used to follow with Neurosurgery Dr Randhawa who performed a C4-5, C5-6 anterior Cervical discectomy with placement of artificial disc and last saw her 11/18/2018 NCS of her right upper extremity that was Normal Pt received Pt with no good results in the past. Assessment & Plan (12/02/2022 3:00 PM EST): Patient is here for a f/u She is s/p C4-5, C5-C6 ACDF. Initially she was happy with her post op results and reported no longer pain on her arm. Previous MRI of her C-spine on 05/25/2017 showed a right paramedian disc herniation C4-C5 slightly impinging on spinal cord with mild degree of spondylitic myelomalacia with bilateral neural foraminal narrowing ( left > right ) . central disc herniation at C5-C6, and C6-C7 as well as progression of facet arthropathy C7- T1 for pain control she was taking medication: Naproxen and Gabapentin She also has a [employer] [place] Card recommended by [facility] treating physician. pt utilizes the liquid form. She is no longer under the care of [facility] I had been prescribing tramadol to use 1 tab po q 8 hrs prn for pain and Nabumetone 750 mg po daily ( 06/05/2022) Pt used to follow with Neurosurgery Dr Randhawa who performed a C4-5, C5-6 anterior Cervical discectomy with placement of artificial disc and last saw her 11/18/2018 NCS of her right upper extremity that was Normal Pt received Pt with no good results in the past. Pt was seen on a subsequent visit by Dr Soto who referred her back to [facility] for back pain History of total knee arthroplasty 07/15/2016 Assessment & Plan (06/07/2024 12:49 PM EDT): S/P Right TKR by Dr Arenas Last seen by Dr Taylor 04/2024 Assessment & Plan (05/28/2023 3:43 PM EDT): S/P Right TKR by Dr Arenas Mild persistent asthma 10/18/2015 Assessment & Plan (10/13/2024 3:27 PM EST): Patient is here for a f/u no recent exacerbations She is also on a regimen of: Advair, Pro-Air MDI QID PRN and Singulair 10 mg po daily she is under the care of Pulmonology Dr Snider, last seen 08/11/2024 Continue current regimen 6 month f/u Assessment & Plan (02/11/2024 2:23 PM EDT): Patient is here for a f/u no recent exacerbations She is also on a regimen of: Flovent 220mcg 1 puffs BID, Pro-Air MDI QID PRN and Singulair 10 mg po daily she is under the care of Pulmonology Dr Snider Continue current regimen 6 month f/u Assessment & Plan (05/28/2023 3:46 PM EDT): Patient is here for a f/u no recent exacerbations She is also on a regimen of: Flovent 220mcg 1 puffs BID, Pro-Air MDI QID PRN and Singulair 10 mg po daily she is under the care of Pulmonology Dr Snider Continue current regimen 6 month f/u Osteoarthritis of knee 03/10/2014 Assessment & Plan (06/07/2024 12:49 PM EDT): Pt S/p right TKR 02/03/[address] Taylor 04/2024 Assessment & Plan (02/11/2024 2:29 PM EDT): Pt S/p right TKR 02/03/2024 Today she has a dressing in place, she has a follow up appointment for 02/18/2024 Carpal tunnel syndrome 03/10/2014 Assessment & Plan (05/28/2023 3:47 PM EDT): Pt with c/o this, evaluated in the past with steroid injections Seem by Dr castaneda in the past Diverticulosis of sigmoid colon 07/18/2013 Assessment & Plan (05/28/2023 3:44 PM EDT): Pt underwent colorectal cancer screening by Dr Millan on 06/15/2013 and showed sigmoid diverticulosis and internal hemorrhoids. 10 year f/u recommended 2022, already scheduled Depressive disorder 10/29/2012 Assessment & Plan (05/28/2023 3:42 PM EDT): Under the care of Dr Almeida at [facility]. see med list for current psychiatric meds, no changes. she has been stable they have requested me to continue his medications for insomnia, Ambien and Benadryl Chronic low back pain 05/12/2012 Assessment & Plan (10/13/2024 3:42 PM EST): Pt here for a f/u Hx of chronic low back pain, treated in the past at [facility] by Dr Clint Newberry. Hx of AP fusion from L4-sacrum in 2003. She received epidural injections with good results in the past. but that was no longer the case. Pt developed lumbar spinal stenosis and on 01/14/2021 underwent Posterior neural foraminotomy L2-L3by Dr. Bailey. She was admitted to [facility] from 11/13/2022 until 11/20/2022 due to worsening low back pain with radiation to her right thigh and right leg after an experimental thoracic spinal stimulation procedure at the surgery center [facility] (She was referred there by [facility]). Procedure was aborted after pt experienced severe pain during the procedure. Patient treated with multiple rounds of pain medication with reported pain of 8/10. Acute pain service recommended increase in gabapentin dose hydromorphone and diazepam. Per Dr. Bethea, no further inpatient intervention needed. Patient to continue PT. Condition stabilized and patient was discharged home to follow up with us. Her Gabapentin was increased to 600 mg po TID She was seen by Neurology as well who recommended no further work up from their perspective Since our last visit pt hasd presented to the ER with c/o low back pain She was referred to Spine surgeon Dr. 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 This would include L2-3, L1-2 and T12 region. There are signs of degenerative endplate sclerosis, Modic endplate changes and a spondylolisthesis at L2-3. He also stated that any potential surgical intervention would be an oblique lumbar interbody fusion L2-3, trans Kambin lumbar interbody fusion L1-2 and T12-L1, as well as pedicle screws at T11 to stabilize the thoracolumbar junction. The only thing is, they have no way to guarantee significant success with her chronic pain. In fact there is a chance they could give her more pain by fusing all of her lumbar spine [address] Epstein would only offer this to the patient if she absolutely was in intractable chronic pain that caused her profound impact on her quality of life. Given the fact that the spine surgeon is unable to offer any surgical intervention that could help, pt is interested in being evaluated at the pain clinic. Pt today c/o pain 07/21 Plan: Refer to Pain Clinic Assessment & Plan (05/28/2023 3:25 PM EDT): Pt here for a f/u Hx of chronic low back pain, she had been receiving treatment at [facility] by Dr Clint Newberry. Hx of AP fusion from L4-sacrum in 2003. She has received epidural injections with good results in the past. but that was no longer the case. Pt developed lumbar spinal stenosis and on 01/14/2021 underwent Posterior neural foraminotomy L2-L3by Dr. Bailey. Patient is here for a follow up. She was recently admitted to [facility] from 11/13/2022 until 11/20/2022 due to worsening low back pain with radiation to her right thigh and right leg after an experimental thoracic spinal stimulation procedure at the surgery center [facility] (She was referred there by [facility]). Procedure was aborted after pt experienced severe pain during the procedure. Patient treated with multiple rounds of pain medication with reported pain of 8/10. Acute pain service recommended increase in gabapentin dose hydromorphone and diazepam. Per Dr. Bethea, no further inpatient intervention needed. Patient to continue PT. Condition stabilized and patient was discharged home to follow up with us. Her Gabapentin was increased to 600 mg po TID Today she says she is always in pain but pain is not very strong. She requires assistance walking to bathroom during the night or morning. She does not want to follow-up with [facility] d/t the severe pain she experienced with her procedure which was attempted placement of thoracic spinal stimulator. I have recommended she at least followed one more time to close the loop. She was seen recently and was told there was nothing lse they could do for her She was seen by Neurology as well who recommended no further work up from their perspective Assessment & Plan (01/06/2023 3:24 PM EDT): Pt here for a f/u She has chronic low back pain, she had been receiving treatment at [facility] by Dr Clint Newberry. Hx of AP fusion from L4-sacrum in 2003. She has received epidural injections with good results in the past. but that was no longer the case. Pt developed lumbar spinal stenosis and on 01/14/2021 underwent Posterior neural foraminotomy L2-L3by Dr. Bailey. She was admitted to [facility] from 11/13/2022 until 11/20/2022 due to worsening low back pain with radiation to her right thigh and right leg after an experimental thoracic spinal stimulation procedure at the surgery center [facility] (She was referred there by [facility]). Procedure was aborted after pt experienced severe pain during the procedure. Patient treated with multiple rounds of pain medication with reported pain of 8/10. Acute pain service recommended increase in gabapentin dose hydromorphone and diazepam. Per Dr. Bethea, no further inpatient intervention needed. Patient to continue PT. Condition stabilized and patient was discharged home to follow up with us. Her Gabapentin was increased to 600 mg po TID Today she says she is always in pain but pain. She requires assistance walking to bathroom during the night or morning. She does not want to follow-up with [facility] d/t the severe pain she experienced with her procedure which was attempted placement of thoracic spinal stimulator. I have recommended she at least followed one more time to close the loop. But she refuses She completed PT at home and she has been trying acupuncture with minimal benefit. Pt would like a second opinion by a Neurologist. She uses Tramadol for pain. Referral to neurology will be placed Assessment & Plan (12/04/2022 8:23 AM EST): Pt here for a f/u Hx of chronic low back pain, she had been receiving treatment at [facility] by Dr Clint Newberry. Hx of AP fusion from L4-sacrum in 2003. She has received epidural injections with good results in the past. but that was no longer the case. Pt developed lumbar spinal stenosis and on 01/14/2021 underwent Posterior neural foraminotomy L2-L3by Dr. Bailey. Patient is here for a follow up. She was recently admitted to [facility] from 11/13/2022 until 11/20/2022 due to worsening low back pain with radiation to her right thigh and right leg after an experimental thoracic spinal stimulation procedure at the surgery center [facility] (She was referred there by [facility]). Procedure was aborted after pt experienced severe pain during the procedure. Patient treated with multiple rounds of pain medication with reported pain of 8/10. Acute pain service recommended increase in gabapentin dose hydromorphone and diazepam. Per Dr. Bethea, no further inpatient intervention needed. Patient to continue PT. Condition stabilized and patient was discharged home to follow up with us. Her Gabapentin was increased to 600 mg po TID Today she says she is always in pain but pain is not very strong. She requires assistance walking to bathroom during the night or morning. She does not want to follow-up with [facility] d/t the severe pain she experienced with her procedure which was attempted placement of thoracic spinal stimulator. I have recommended she at least followed one more time to close the loop. She does have PT at home. She is eager to try acupuncture. She understands not to take tramadol with dilaudid. GERD (gastroesophageal reflux disease) 2 Resolved Problems Problem Noted Date Diagnosed Date Resolved Date Preoperative examination 01/21/202411/2023 Assessment & Plan (01/21/2024 5:01 PM EDT): Patient is here for a preoperative exam Patient is scheduled for:Right total Knee Revision Date of Surgery: 02/03/2024 By: Dr. David Taylor Anesthesia:General & a Nerve Block After careful review of patient's most recent laboratory tests: BMP, CBC 01/21/2024 normal EKG: within normal limits And today's Physical examination I do not see any contraindication for patient to undergo this: intermediate Risk surgical intervention. Patient has been advised to follow up after the procedure has been completed Hordeolum externum of left lower eyelid 07/29/2023 11/03/2023 Assessment & Plan (07/29/2023 11:24 AM EDT): -Recommended warm compresses. -No evidence of infection. Encounters Date Type Department Care Team Description 11/07/2024 Refill [facility] [address] [place] [address] Ernie Noriega MD Chronic midline low back pain without sciatica 11/01/2024 Refill [facility] [address] [place] [address] Sugar Mitchell MD Seasonal allergies 11/01/2024 Refill [facility] [address] [place] [address] Sugar Mitchell MD Seasonal allergies 10/25/2024 1:20 PM EST Office Visit [facility] [address] [place] [address] Ofelia Melgar MD UTI symptoms 10/25/2024 Refill [facility] [address] [place] [address] Ernie Noriega MD Chronic midline low back pain without sciatica 10/25/2024 Telephone [facility] [address] [place] [address] Ernie Noriega MD Med Refill 10/25/2024 Travel 10/17/2024 Refill [facility] [address] [place] [address] Ernie Noriega MD Primary osteoarthritis of knee, unspecified laterality 10/16/2024 Refill [facility] [address] [place] [address] Sugar Mitchell MD 10/14/2024 Telephone [facility] [address] [place] [address] Ernie Noriega MD Med Refill 10/13/2024 3:00 PM EST Office Visit [facility] [address] [place] [address] Ernie Noriega MD Essential hypertension (Primary Dx); Mild persistent asthma without complication; Chronic midline low back pain without sciatica 10/13/2024 Refill [facility] [address], [place] [address] Ernie Noriega MD Chronic midline low back pain without sciatica 10/13/2024 Travel 10/12/2024 Travel 10/12/2024 Refill [facility] [address] [place] [address] Ernie Noriega MD Primary osteoarthritis of knee, unspecified laterality 10/10/2024 Refill [facility] [address], [place] [address] Ernie Noriega MD Pain 10/06/2024 Travel 10/03/2024 Telephone [facility] [address] [place] [address] Ernie Noriega MD 10/03/2024 Patient Outreach [facility] [address] [place] [address] Ernie Noriega MD Pre-visit Planning (SDOH screening was completed on 01/21/2024) 09/28/2024 Telephone [facility] [address] [place] [address] Ernie Noriega MD Med Refill 09/28/2024 Refill [facility] [address], [place] [address] Ernie Noriega MD Primary osteoarthritis of knee, unspecified laterality 09/28/2024 Refill [facility] [address], [place] [address] Ernie Noriega MD Chronic midline low back pain without sciatica; Cervical radiculopathy 09/27/2024 Refill [facility] [address], [place] [address] Ernie Noriega MD Chronic midline low back pain without sciatica; Cervical radiculopathy 09/18/2024 Refill [facility] [address], [place] [address] Ilsa Robison ANP Primary osteoarthritis of knee, unspecified laterality 09/18/2024 Refill [facility] [address] [place] [address] Ernie Noriega MD Ischial pain, right; Primary osteoarthritis of knee, unspecified laterality 09/13/2024 Telephone [facility] [place] [address] Chris ReginaMARIA T robb DME Donut cushion L&C 09/02/2024 Telephone [facility] [address] [place] [address] Filipe Perez MA DME form L&C 08/30/2024 Telephone [facility] [address] [place] [address] Mady Caldwell, DIRECTOR VETERINARY Follow-up 08/29/2024 Patient Outreach [facility] [address] [place] [address] Kiana Randolph RN Transition Of Care (Tcm) 08/26/2024 Orders Only [facility] External Provider, [facility] 08/19/2024 Telephone [facility] [address] [place] [address] Ernie Noriega MD october08/18/2024 Telephone [facility] [address] [place] [address] Ernie Noriega MD Durable Medical Equipment 08/16/2024 Refill [facility] [address] [place] [address] Ernie Noriega MD Primary hypertension 08/13/2024 Refill [facility] [address] [place] [address] Ilsa Robison ANP Seasonal allergies 08/13/2024 Refill [facility] [address] [place] [address] Ernie Noriega MD Seasonal allergies 08/12/2024 Telephone [facility] [address] [place] [address] Ernie Noriega MD Durable Medical Equipment 08/12/2024 Refill [facility] [address] [place] [address] Ilsa Robison ANP Primary osteoarthritis of knee, unspecified laterality from Last 3 Months Immunizations Name Administration Dates Next Due Influenza injectable quadriv alent IIV4 with preservative 07/22/2018,07/07/2017,08/09/2015 Influenza injectable quadriv alent preservative free 07/21/2023,07/16/2022,08/03/2021,06/20,06/14/2019,07/15/2016 Influenza, IIV3, injectable 06/28/2014 Influenza, Split (incl. manuel fied surface antigen) 07/18/2013,08/17/2012 Influenza, seasonal, injecta ble, preservative free 07/09/2024 Moderna Covid-19 Vaccine 12+ 08/28/2021,02/23/20 21,01/24/2021 Pfizer Covid-19 Vaccine 12+ Bivalent 07/16/2022 Pneumococcal Conjugate PCV 20 05/13/2023 Pneumococcal Polysaccharide PPSV23 11/12/2015, TD (adult), 2 Lf tetanus tox oid, preservative free, adsorbed 05/12/2012 Tdap 04/04/2021,03/10/2014 Zoster, Recombinant 08/15/2020,05/26/2020 Social History Tobacco Use Types Packs/Day Years Used Date Smoking Tobacco: Former Cigarettes Passive Smoke Exposure: Past Smokeless Tobacco: Never Tobacco Cessation:Counseling Given: Not Answered Alcohol Use Standard Drinks/Week Comments Never 0 [...] Orientation Straight 08/11/2022 10 :15 AM EDT Last Filed Vital Signs Vital Sign Reading Time Taken Comments Blood Pressure 139/84 10/25/2024 12:58 PM EST Pulse 69 10/25/2024 12:58 PM EST Temperature 36.7 ??C (98.1 ??F) 10/25/2024 12:[address] Respiratory Rate 16 10/25/2024 12:58 PM EST Oxygen Saturation 98% 10/25/2024 12:58 PM EST Inhaled Oxygen Concentration - - Weight 74.8 kg (165 lb) 10/25/2024 12:58 PM EST Height 160 cm (5' 3 ) 10/13/2024 2:49 PM EST Body Mass Index 29.23 10/13/2024 2:49 PM EST Plan of Treatment Upcoming Encounters Date Type Department Care Team (Late st Contact Info) Description 01/12/2025 3:00 PM EDT Office Visit [facility] [address] [place] [address] Ernie Noriega MD [address] [place] [address] Health Maintenance Due Date Last Done Comments CT Colonography 1965 FIT DNA/Cologuard 1965 FIT 1965 FOBT 1965 HIV Screening 1965 Sigmoidoscopy 1965 Pap Smear 1984 RSV Patients and Patients Aged 60 years or older (1 - Risk 60-74 years 1-dose series) 2023 COVID-19 Vaccine ( season) 2024 07/16/2022, 08/28/2021, 02/22/2021, Additional history exists Depression Screening 01/20/2025 01/21/2024, 01/21/20 SDOH Screening 01/20/2025 01/21/2024 Alcohol/Substance Use Screening 10/13/2025 10/13/2024 Tobacco Screening 10/13/2025 10/13/2024 Cervical Cancer Screening 12/19/2025 HPV/Cotest 12/19/2025 12/19/2020, 12/10, 09/02/2019 Mammogram 12/31/2025 01/01/2024, 12/10, 11/25/2021, Additional history exists Lipid Panel 11/07/2027 11/07/2022, 03/27/2021 Colonoscopy 03/18/2029 03/18/2024, 06/15/2013 Colorectal Cancer Screening 03/18/2029 DTaP/Tdap/Td Vaccines (3 - Td or Tdap) 04/04/2031 04/04/2021, 03/10/2014, 05/12/2012 Zoster Vaccines Completed 08/15/2020, 05/26/2020 Hepatitis C Screening Completed 11/07/2022 Pneumococcal Vaccine: Pediatrics (0 to 5 Years) and At-Risk Patients (6 to 64 Years) Completed 05/13/2023, 11/12/2015, 05/12/2012 Influenza Vaccine Completed 07/09/2024, , 07/16/2022, Additional history exists HIB Vaccines Aged Out No longer eligi [...] patient's age to complete this topic Meningococcal Vaccine Aged Out No rizwana blaine eligible based on patient's age to complete this topic RSV under 20 months Aged Out No longe r eligible based on patient's age to complete this topic Rotavirus Vaccines Aged Out No longer eligible based on patient's age to complete this topic Procedures Procedure Name Priority Date/Time Associated Diagnosis Comments POCT URINALYSIS DIPSTICK Routine 10/25/2024 1:03 PM EST UTI symptoms URINALYSIS, COMPLETE, WITH REFLEX TO CULTURE Routine 10/25/2024 12:00 AM EST UTI symptoms XR LUMBAR SPINE 2-3 VIEWS Routine 08/26/2024 11:48 AM EST HM COLONOSCOPY Routine 03/18/2024 BI MAMMOGRAM SCREENING TOMOSYNTHESIS BILATERAL Routine 01/01/2024 8:45 AM EDT HEPATITIS C AB W/REFL TO HCV RNA, QN, PCR Routine 11/07/2022 8:24 AM EST Essential hypertension LIPID PANEL WITH REFLEX TO DIRECT LDL Routine 11/07/2022 8:24 AM EST Essential hypertension ZZZ HISTORICAL HPV E6/E7 RFLX SERGIO 16 18/45 Routine 12/19/2020 3:40 PM EST from Last 3 Months or Most Recently Relevant to Health Maintenance Results * POCT urinalysis dipstick manually resulted [...] (10/25/2024 12:00 AM EST) Color Urine Yellow [facility] Appearance Urine Clear [facility] PH 5.5 5.0 - 9.0 [facility] Glucose Urine UA Negative Negative mg/dL [facility] Urine Blood Negative Negative [facility] Specific [place] - Urine 1.015 1.005 - 1.025 [facility] Urine Protein Negative Neg-Trace mg/dL [facility] Urine Ketones Negative Negative mg/dL [facility] Nitrite Urine Negative Negative [facility] Leukocyte Esterase Urine Negative Negative [facility] RBC Urine 0-2 0 - 2 /HPF [facility] Urine WBC 0-5 0 - 5 /HPF [facility] Urine Squamous Epithelial Cell 0-2 0 - 2 /HPF [facility] Urine Bacteria None Seen None Seen [facility] Hyaline Casts, Urine 0-2 0 - 2 /LPF [facility] Urine 10/25/2024 10/25/2024 Narrative [facility] - 10/25/2024 5:35 PM EST Urine, Clean Catch us Ofelia Melgar MD LAB URINE ORDERABLES Final Result Performing Organization Address [facility]/State/[facility] Co de Phone Number [facility] [address] [place] [phone] * XR Lumbar Spine 2-3 Views (08/26/2024 11:48 AM EST) Anatomical Region Laterality Modality Spine, L-spine Radiographic Anabella ging 08/26/2024 11:4 8 AM EST Narrative 08/26/2024 1:32 PM EST ? [facility] ?[address] ?[place] [address] ?XRay Report ? Signed ? Patient: Julien,Idalia ?MR#: [id number] ?? 12 ? : 1965 ?Acct:[id number] ? Age/Sex: 59 / F ?ADM Date: 11/15/24 ? Loc: HO.ED ? Attending Dr: ? Ordering Physician: Mady Uribe CNP ?? Date of Service: 08/26/24 ?? Procedure(s): XR lumbar spine 2-3V ?? Accession Number(s): [id number] ? cc: Mady Uribe CNP; Ernie Merritt MD ? EXAMINATION: ?? XR LUMBOSACRAL SPINE ? CLINICAL INFORMATION: ?? Left-sided back pain. Prior surgery. ? COMPARISON: ?? Most recent lumbar spine radiographs dated 10/31/2023. ? TECHNIQUE: ?? Three views of the lumbosacral spine. ? FINDINGS: ?? Redemonstration of 6 nonrib-bearing lumbar-type vertebral bodies with ?? lumbarization of the S1 vertebral body. Posterior stabilization ?? hardware redemonstrated at L4-L5 with intervertebral disc hardware at ?? L5-S1 and S1-S2. No evidence of hardware complication. Grade 1 ?? retrolisthesis of L1 on L2 is unchanged. Multilevel degenerative disc ?? disease with facet arthropathy, unchanged. No acute fracture. No new ?? lytic or blastic osseous lesion. Surgical clips. ? XR/XR lumbar spine 2-3V ?? IMPRESSION: ?? 1. Posterior stabilization hardware at L4-L5 and L5-S1 without evidence ?? of hardware complication. ? 2. Grade 1 retrolisthesis of L1 on L2 and multilevel degenerative disc ?? disease and facet arthropathy, unchanged. ? Electronically signed by: ??Lcu Lieberman MD ??08/26/2024 01:29 PM EST ?? Workstation: [id number] [facility] ? Dictated By: ?Luc Lieberman MD ? Signed By: ?<Electronically signed by Luc Lieberman MD in OV> ?08/26/24 1329 ? DD/ 1148 ? TD/TT: 08/26/24 1155 ? Asbestos Shingle Inspector: SR ? Procedure Note Rene Motley - 08/26/2024 [facility] [address] [place] [address] XRay Report Signed Patient: Miguelina Julien#: [id number] 12 : 1965Acct:[id number] Age/Sex: 59 / FADM Date: 08/26/24 Loc: HO.ED Attending Dr: Ordering Physician: Mady Uribe CNP Date of Service: 08/26/24 Procedure(s): XR lumbar spine 2-3V Accession Number(s): [id number] cc: Mady Uribe CNP; Ernie Merritt MD EXAMINATION: XR LUMBOSACRAL SPINE CLINICAL INFORMATION: Left-sided back pain. Prior surgery. COMPARISON: Most recent lumbar spine radiographs dated 10/31/2023. TECHNIQUE: Three views of the lumbosacral spine. FINDINGS: Redemonstration of 6 nonrib-bearing lumbar-type vertebral bodies with lumbarization of the S1 vertebral body. Posterior stabilization hardware redemonstrated at L4-L5 with intervertebral disc hardware at L5-S1 and S1-S2. No evidence of hardware complication. Grade 1 retrolisthesis of L1 on L2 is unchanged. Multilevel degenerative disc disease with facet arthropathy, unchanged. No acute fracture. No new lytic or blastic osseous lesion. Surgical clips. XR/XR lumbar spine 2-3V IMPRESSION: 1. Posterior stabilization hardware at L4-L5 and L5-S1 without evidence of hardware complication. 2. Grade 1 retrolisthesis of L1 on L2 and multilevel degenerative disc disease and facet arthropathy, unchanged. Electronically signed by: Luc Lieberman MD 08/26/2024 01:29 PM [facility] Dictated By: Luc Lieberman MD Signed By: <Electronically signed by Luc Lieberman MD in OV> 08/26/24 1329 DD/ 1148 TD/TT: 08/26/24 1155 Asbestos Shingle Inspector: SR [facility] External Provider IMG XR PROCEDURES Final Result * (ABNORMAL) Hm Colonoscopy (03/18/2024) Colonoscopy Abnormal( A) Normal Comment:Tubular Adenoma 03/18/2024 Historical Provider HEALTH MAINTENANCE Final Result * BI Mammogram Screening Tomosynthesis Bilateral (01/01/2024 8:45 AM EDT) Anatomical Region Laterality Modality Breast Bilateral Mammography 01/01/2024 8:45 AM EDT Narrative 01/19/2024 10:06 AM EDT ? [facility] ? [address] ?[place] [address] ? Mammography Report ? Signed ? Patient: Miguelina Watson ?MR#: ?? [id number] ? : 1965 ?Acct:[id number] ? Age/Sex: 58 / F ?ADM Date: 01/01/24 ? Loc: HO.MAMMO ? Attending Dr: Ernie Merritt MD ? Ordering Physician: Ernie Merritt MD ?Resu ?? lts: 2Benign Findings ? Date of Service: 01/01/24 ?Follow Up: 1 Year From Orig ?? inal Mammogram ? Procedure(s): MM tomosynthesis screening BI ?? Accession Number(s): [id number] ? cc: Ernie Merritt MD ? EXAMINATION: ?? MM SCREENING DIGITAL BREAST TOMOSYNTHESIS, BILATERAL ? CLINICAL INFORMATION: ? Screening. Asymptomatic. ? COMPARISON: ?? Mammography: Most recently 12/23/2022, and dating back to 08/30/2015. ? TECHNIQUE: ?? Digital breast tomosynthesis is performed in both the craniocaudal and ?? mediolateral oblique views along with computer-aided detection (CAD). ?? Synthesized 2D images are generated from the tomosynthesis. ? FINDINGS: ?? There are scattered areas of fibroglandular density (ACR BI-RADS breast ?? composition Category b). ? There are bilateral vascular and benign type dystrophic calcifications. ?? There are no suspicious masses, suspicious grouped calcifications, or ?? areas of architectural distortion in either breast. The parenchymal ?? pattern is stable from prior exams. ??No axillary or skin abnormalities. ? MM/MM tomosynthesis screening BI ?? IMPRESSION: ?? No mammographic evidence of malignancy. ? ASSESSMENT: ? BI-RADS BI-RADS 2 - Benign Findings ? RECOMMENDATION: ?? Routine annual mammography screening. ? 1 year F/U ? This examination should not preclude the clinical evaluation of a ?? suspicious palpable abnormality. ? This patient's information was entered into a reminder system with a ?? target due date for their next mammogram. ? Dictated By: ?Stone Vann MD ? Signed By: ?<Electronically signed by Stone Vann MD in OV> ?01/19/24 1003 ? DD/ 0845 ? TD/TT: ? Asbestos Shingle Inspector: ? Procedure Note Genetanya, Image - 01/19/2024 [facility] [address] [place] [address] Mammography Report Signed [id number] : 1965Acct:[id number] Age/Sex: 58 / FADM Date: 01/01/24 Loc: [facility] Attending Dr: Ernie Merritt MD Ordering Physician: Ernie Merritt MDResu lts: 2Benign Findings Date of Service: 01/01/24Follow Up: 1 Year From Orig inal Mammogram Procedure(s): MM tomosynthesis screening BI Accession Number(s): [id number] cc: Ernie Merritt MD EXAMINATION: MM SCREENING DIGITAL BREAST TOMOSYNTHESIS, BILATERAL CLINICAL INFORMATION: Screening. Asymptomatic. COMPARISON: Mammography: Most recently 12/23/2022, and dating back to 08/30/2015. TECHNIQUE: Digital breast tomosynthesis is performed in both the craniocaudal and mediolateral oblique views along with computer-aided detection (CAD). Synthesized 2D images are generated from the tomosynthesis. FINDINGS: There are scattered areas of fibroglandular density (ACR BI-RADS breast composition Category b). There are bilateral vascular and benign type dystrophic calcifications. There are no suspicious masses, suspicious grouped calcifications, or areas of architectural distortion in either breast. The parenchymal pattern is stable from prior exams. No axillary or skin abnormalities. MM/MM tomosynthesis screening BI IMPRESSION: No mammographic evidence of malignancy. ASSESSMENT: BI-RADS BI-RADS 2 - Benign Findings RECOMMENDATION: Routine annual mammography screening. 1 year F/U This examination should not preclude the clinical evaluation of a suspicious palpable abnormality. This patient's information was entered into a reminder system with a target due date for their next mammogram. Dictated By: Stone Vann MD Signed By: <Electronically signed by Stone Vann MD in OV> 01/19/24 1003 DD/ 0845 TD/TT: Asbestos Shingle Inspector: us Ernie Ro MD IMG BI PROCEDURES Fin al Result * (ABNORMAL) Lipid Panel with Reflex to Direct LDL (11/07/2022 8:24 AM EST) Cholesterol, Total 235(H) <200 mg/dL [employer] HDL Cholesterol 64 > OR = 50 mg/dL [employer] Triglycerides 252(H) <150 mg/dL [employer] Comment: If a non-fasting specimen was collected, consider repeat triglyceride testing on a fasting specimen if clinically indicated. Bebo et al. J. of Clin. Lipidol. 2015;9:129-169. LDL Cholesterol 132(H) mg/dL (calc) [employer] [facility] Comment: Reference range: <100 Desirable range <100 mg/dL for primary prevention; ?? <70 mg/dL for patients with CHD or diabetic patients with > or = 2 CHD risk factors. LDL-C is now calculated using the Charlie calculation, which is a validated novel method providing better accuracy than the Friedewald equation in the estimation of LDL-C. Jordan CARREON et al. BHARAT. 2013;310(19): 3803-4266 (http://education.Upworthy.Empower2adapt/faq/PCA771) Chol/HDLC Ratio 3.7 <5.0 (calc) [employer] [facility] Non-HDL Cholesterol 171(H) <130 mg/dL (calc) [employer] Comment: For patients with diabetes plus 1 major ASCVD risk factor, treating to a non-HDL-C goal of <100 mg/dL (LDL-C of <70 mg/dL) is considered a therapeutic option. 11/07/2022 8:24 AM EST 11/07/2022 8:25 AM EST Narrative [facility] - 11/08/2022 12:51 AM EST FASTING:YES FASTING: YES us Ernie Ro MD LAB BLOOD ORDERABLES Final Result [facility] [address], [place] [address] [employer] [address] [facility], ([address]) [place] [address] * Hepatitis C Antibody with Reflex to HCV, RNA, Quantitative, Real-Time PCR (11/07/2022 8:24 AM EST) Hepatitis C Antibody NON-REACT TAMARA NON-REACT TAMARA [employer] [facility] Index 0.12 <1.00 [employer] Comment: HCV antibody was non-reactive. There is no laboratory evidence of HCV infection. In most cases, no further action is required. However, if recent HCV exposure is suspected, a test for HCV RNA (test code 93872) is suggested. For additional information please refer to http://education.[employer] State/faq/NLK82y9 (This link is being provided for informational/ educational purposes only.) Blood Venous blood specimen / Unknown 11/07/2022 8:24 AM EST 11/07/2022 8:25 AM EST Narrative [facility] - 11/08/2022 12:51 AM EST FASTING:YES FASTING: YES Ernie Ro MD LAB BLOOD ORDERABLES Final Result Performing Organization Address City/[facility]/ZIP Co de Phone Number [address], [place] [address] [employer] [facility] [facility] [address] [place] [address], ([address]) [place] [address] * HPV E6/E7 RFLX SERGIO 16 18/45 (12/19/2020 3:40 PM EST) Pathologist [facility] HPV 16 RNA [facility] HPV 18/45 RNA [facility] HPV E6 E7 ADD [facility] HPV mRNA E6/E7 rflx Not Detected Not Detected [facility] Comment: Methodology: Electronic News Gathering Editor-Mediated Amplification This assay detects E6/E7 viral messenger RNA (mRNA) from 14 high-risk HPV types (16,18,31,33,35,39,45,51,52,56,58,59,66,68). The analytical performance characteristics of this assay have been determined by [employer]. The modifications have not been cleared or approved by the FDA. This assay has been validated pursuant to the CLIA regulations and is used for clinical purposes. For additional information, please refer to http://education.Zoomingo.Empower2adapt/faq/ORO822x3 (This link if provided for information/ educational purposes only.) THIS TEST WAS PERFORMED AT: [facility] [address] [place] [address],[address] [place], [place] ??[phone] FLACA ANTONY MD 12/19/2020 3:40 PM EST us Historical Provider HISTORICAL/NON ORDERABLE LABS Final Result [facility] [address] from Last 3 Months or Most Recently Relevant to Health Maintenance Insurance [facility] C3 Care Teams Rubber Compounder Relationship Specialty Start Date End Date Ernie Noriega MD [address] [place] [address] PCP - General Internal Medicine 08/25/19
--- OUTSIDE RECORDS SUMMARY | 2024-11-08 16:06 | XMS_ITS | Encounter Summary ---
Author Organization [employer] Address [address] [facility] 7t [place] [address] Care Team Providers Care Geothermal System Installer Name Role Phone Ernie Noriega MD Primary Care Provide r Reason for Visit * Reason Onset Date Comments Med Refill 09/18/2023 Encounter Details Date Type Department Care Team ([facility] st Contact Info) Description 09/18/2023 Refill [facility] [address] [place] [address] Ernie Noriega MD [address] [facility] [place] [address] Chronic midline low back pain without sciatica; [...] Description 01/12/2025 3:00 PM EDT Office Visit [facility] 230 [place] [address] Ernie Noriega MD 230 [place] [address] documented as of this encounter Visit Diagnoses Diagnosis Chronic midline low back pain without sciatica Cervical radiculopathy Brachial neuritis or radiculitis nos documented in this encounter Additional Health Concerns Assessment Noted Time PHQ-9 Depression Total Score: 0 12/02/19 23 2:38 PM EST documented as of this encounter Care Teams Geothermal System Installer Relationship Specialty Start Date End Date Ernie Noriega MD 230 [place] [address] PCP - General Internal Medicine 08/25/19 documented as of this encounter
--- OUTSIDE RECORDS SUMMARY | 2024-11-08 16:06 | XMS_ITS | Encounter Summary ---
Author Organization [employer] Address [address] [place] [address] 7t [place] [address] Care Team Providers Care Workforce Analyst Name Role Phone Ernie Noriega MD Primary Care Provide r Reason for Visit * Reason Comments Med Refill Encounter Details Date Type Department Care Team ([facility] st Contact Info) Description 10/11/2023 Refill [facility] 230 [place] [address] Ernie Noriega MD 230 [place] [address] Social History Tobacco Use Types Packs/Day Years [...] Description 01/12/2025 3:00 PM EDT Office Visit [facility] [address] [place] [address] Ernie Noriega MD [address] [place] [address] documented as of this encounter Visit Diagnoses Not on filedocumented in this encounter Additional Health Concerns Assessment Noted Time PHQ-9 Depression Total Score: 0 12/02/19 23 2:38 PM EST documented as of this encounter Care Teams Workforce Analyst Relationship Specialty Start Date End Date Ernie Noriega MD [address] [place] [address] PCP - General Internal Medicine 08/25/19 documented as of this encounter
--- OUTSIDE RECORDS SUMMARY | 2024-11-08 16:06 | XMS_ITS | Encounter Summary ---
Author Organization [employer] Address [address] [place] [address] 7t [place] [address] Care Team Providers Care Sommelier Name Role Phone Ernie Noriega MD Primary Care Provide r Reason for Visit * Reason Comments Med Refill Encounter Details Date Type Department Care Team ([facility] st Contact Info) Description 08/10/2023 Refill [facility] 230 [place] [address] Perlita Woody MD 230 [place] [address] Seasonal allergies; Primary hypertension Social History Tobacco Use Types [...] Description 01/12/2025 3:00 PM EDT Office Visit [facility] 230 [place] [address] Ernie Noriega MD 230 [place] [address] documented as of this encounter Visit Diagnoses Diagnosis Seasonal allergies Allergic rhinitis, cause unspecified Primary hypertension Unspecified essential hypertension documented in this encounter Additional Health Concerns Assessment Noted Time PHQ-9 Depression Total Score: 0 12/02/19 23 2:38 PM EST documented as of this encounter Care Teams Sommelier Relationship Specialty Start Date End Date Ernie Noriega MD 230 [place] [address] PCP - General Internal Medicine 08/25/19 documented as of this encounter
--- OUTSIDE RECORDS SUMMARY | 2024-11-08 16:06 | XMS_ITS | Encounter Summary ---
Author Organization [employer] [facility] Address [address] [facility] [address] 7t [place] [address] Care Team Providers Care Paper Cone Machine Tender Name Role Phone Ernie Noriega MD Primary Care Provide r Reason for Visit * Reason Onset Date Comments Med Refill Referral 12/10/2022 Patient walked i n requesting for referral to a neurologist. It is difficult for her to walk and do her morton activities. Pt has had [facility] go to her house for therapy, but it has not made any improvements. Encounter Details Date Type Department Care Team (Late st Contact Info) Description 12/10/2022 Refill [facility] 230 [place], [place] [phone] Ernie Noriega MD 230 [place], [place] [phone] Pain Social History Tobacco Use Types Packs/Day [...] PM EST documented as of this encounter Miscellaneous Notes * Telephone Encounter - Agnieszka Fonseca - 12/19/2022 1:21 PM EST Patient walked in requesting for referral to a neurologist. It is difficult for her to walk and do her morton activities. Pt has had [facility] go to her house for therapy, but it has not made any improvements. documented in this encounter Plan of Treatment Upcoming Encounters Date Type Department Care Team (Late st Contact Info) Description 01/12/2025 3:00 PM EDT Office Visit [facility] 230 [place] [address] Ernie Noriega MD 230 [place] [address] documented as of this encounter Visit Diagnoses Diagnosis Pain Generalized pain documented in this encounter Additional Health Concerns Assessment Noted Time PHQ-9 Depression Total Score: 0 12/02/19 23 2:38 PM EST documented as of this encounter Care Teams Paper Cone Machine Tender Relationship Specialty Start Date End Date Ernie Noriega MD 230 [place] [address] PCP - General Internal Medicine 08/25/19 documented as of this encounter
--- OUTSIDE RECORDS SUMMARY | 2024-11-08 16:06 | XMS_ITS ---
Author Organization [facility] Address [address] [place] [address] Care Team Providers Care Manager Life Name Role Phone Milton Ro MD, Ernie Primary Care Provide r Unavailable Rodrick Millan Unavailable [phone] REASON FOR VISIT screening PROBLEMS Problem Type ICD Code Onset Dates Problem Status W/U Status Risk SNOMED Code Notes Problem Diverticulosis of large intestine without perforation or abscess without bleeding (K57.30) Active confirmed Diverticul ar disease of colon (543544769) Encounters Encounter Location Date Provider Diagnosis [facility] Outpatient [address] [place], [place] [phone] 03/18/2024 Rodrick Millan Encounter for scre ening colonoscopy Z12.11 ; Colon polyps K63.5 ; Diverticulosis of large intestine without perforation or abscess without bleeding K57.30 and Internal hemorrhoids K64.8 ASSESSMENTS Encounter Date Diagnosis Assessment Notes Treatment Notes Treatment Clinical Notes 03/18/2024 Encounter for screening colonoscopy (ICD-10 - Z12.11) 03/18/2024 Colon polyps (ICD-10 - K63.5) 03/18/2024 Diverticulosis of large intestine without perforation or abscess without bleeding (ICD-10 - K57.30) 03/18/2024 Internal hemorrhoids (ICD-10 - K64.8) PLAN OF TREATMENT No Information
--- OUTSIDE RECORDS SUMMARY | 2024-11-08 16:07 | XMS_ITS | Encounter Summary ---
Author Organization [employer] Address [address] [place] [address] 7t [place] [address] Care Team Providers Care Foot Setter Name Role Phone Ernie Noriega MD Primary Care Provide r Reason for Visit * Reason Onset Date Comments Med Refill 09/28/2024 Encounter Details Date Type Department Care Team ([facility] Contact Info) Description 09/28/2024 Telephone [facility]INE 230 [place] [address] Ernie Noriega MD 230 [place] [address] Med Refill Social History Tobacco Use Types [...] Telephone Encounter - Tess Perez LPN - 09/28/2024 10:39 AM EST Medication pended to PCP. * Telephone Encounter - Isai Ashley - 09/28/2024 10:28 AM EST TC from pt requesting medication refill. Medications needing refill : gabapentin (Neurontin) 300 MG capsule To be sent to: [facility]/pharmacy [address] [place] [address] documented in this encounter Plan of Treatment Upcoming Encounters Date Type Department Care Team (Late st Contact Info) Description 01/12/2025 3:00 PM EDT Office Visit [facility] 230 [place] [address] Ernie Noriega MD 230 [place], [place] [phone] documented as of this encounter Visit Diagnoses Not on filedocumented in this encounter Additional Health Concerns Assessment Noted Time PHQ-9 Depression Total Score: 2 01/21/20 24 1:25 PM EDT documented as of this encounter Care Teams Foot Setter Relationship Specialty Start Date End Date Ernie Noriega MD 230 [place] [address] PCP - General Internal Medicine 08/25/19 documented as of this encounter
--- OUTSIDE RECORDS SUMMARY | 2024-11-08 16:07 | XMS_ITS | Encounter Summary ---
Author Organization [employer] Address [address] [facility] 7t [place] [address] Care Team Providers Care Power Builder Developer Name Role Phone Ernie Noriega MD Primary Care Provide r Encounter Details Date Type Department Care Team (Latest Contact Info) Description 10/13/2024 Travel Social History Tobacco Use Types Packs/Day [...] 3:00 PM EDT Office Visit [facility] 230 [place] [address] Ernie Noriega MD 230 [place] [address] documented as of this encounter Visit Diagnoses Not on filedocumented in this encounter Additional Health Concerns Assessment Noted Time PHQ-9 Depression Total Score: 2 01/21/20 24 1:25 PM EDT documented as of this encounter Care Teams Power Builder Developer Relationship Specialty Start Date End Date Ernie Noriega MD 230 [place] [address] PCP - General Internal Medicine 08/25/19 documented as of this encounter
--- OUTSIDE RECORDS SUMMARY | 2024-11-08 16:07 | XMS_ITS | Encounter Summary ---
Author Organization [facility] Address [address] [place] [address] 7t [place] [address] Care Team Providers Care Pressure Supervisor Name Role Phone Ernie Noriega MD Primary Care Provide r Encounter Details Date Type Department Care Team (Late st Contact Info) Description 10/03/2022 Orders Only [facility] [address] [place] [phone] Suha Alexander, RN Social History Tobacco Use [...] Description 01/12/2025 3:00 PM EDT Office Visit [facility] [address] [place] [phone] Ernie Noriega MD [address] [place] [address] documented as of this encounter Visit Diagnoses Not on filedocumented in this encounter Care Teams Pressure Supervisor Relationship Specialty Start Date End Date Ernie Noriega MD [address] [place] [address] PCP - General Internal Medicine 08/25/19 documented as of this encounter
--- OUTSIDE RECORDS SUMMARY | 2024-11-08 16:07 | XMS_ITS | Encounter Summary ---
Author Organization [employer] Address [address] [place] [address] 7t [place] [address] Care Team Providers Care Health Policy Analyst Name Role Phone Ernie Noriega MD Primary Care Provide r Reason for Visit * Reason Comments Med Refill Encounter Details Date Type Department Care Team ([facility] st Contact Info) Description 12/25/2023 Refill [facility] 230 [place], [place] [phone] Ernie Noriega MD 230 [place], [place] [phone] Pain; Primary hypertension; Seasonal allergies Social History Tobacco Use Types [...] Description 01/12/2025 3:00 PM EDT Office Visit [facility] 230 [place] [address] Ernie Noriega MD 230 [place] [address] documented as of this encounter Visit Diagnoses Diagnosis Pain Generalized pain Primary hypertension Unspecified essential hypertension Seasonal allergies Allergic rhinitis, cause unspecified documented in this encounter Additional Health Concerns Assessment Noted Time PHQ-9 Depression Total Score: 0 12/02/19 23 2:38 PM EST documented as of this encounter Care Teams Health Policy Analyst Relationship Specialty Start Date End Date Ernie Noriega MD 230 [place] [address] PCP - General Internal Medicine 08/25/19 documented as of this encounter
--- OUTSIDE RECORDS SUMMARY | 2024-11-08 16:07 | XMS_ITS | Encounter Summary ---
Author Organization [employer] Address [address] [place] [address] 7 [place] [address] Care Team Providers Care Ethnic Origins Teacher Name Role Phone Ernie Noriega MD Primary Care Provide r Reason for Visit * Reason Onset Date Comments Medication Question 10/03/2022 returning call 10/03/2022 Encounter Details Date Type Department Care Team ([facility] st Contact Info) Description 10/03/2022 Telephone [facility] 230 [place] [address] Ernie Noriega MD 230 [place] [address] Medication Question; returning call Social History Tobacco Use Types Packs/Day Years Used Date Smoking Tobacco: Never Assessed Comments Unknown Sex and Gender Information Value Date Recorded Sex Assigned at Female 08/11/2022 10:15 AM EDT Legal Sex Female 10:15 AM EDT Gender Identity Female 08/11/2022 10:15 AM EDT Sexual Orientation Straight 08/11/2022 10 :15 AM EDT documented as of this encounter Miscellaneous Notes * Telephone Encounter - Jere Robles - 10/10/2022 11:31 AM EST Tc from pt returning call Please contact pt at [phone] * Telephone Encounter - Peg Scott RN - 10/10/2022 11:17 AM EST T/C placed to pt x2AM re below message. No answer, left v/m. Will retask to [facility] for third attempt. * Telephone Encounter - Peg Scott RN - 10/08/2022 3:32 PM EST Incoming T/C from Sylvia CAMARILLO from [facility]. She states spoke with MIDWIFE PRACTITIONER who saw pt 09/24. It is not in the OV note (which is located in Epic under Media tab) but that pt reported pain during appt and MIDWIFE PRACTITIONER advised pt speak to her PCP and see if he recommends an increase in gabapentin. They stated that they did not tell her to increase without consulting us first and they did not recommend an increase, they recommended she consult us re it. T/C placed to pt to schedule appt with PCP to discuss, no answer. Pt is also on recall and should be scheduled within the next month with PCP. Will send to [facility] to attempt second call. [place] sending to PCP as FYI. * Telephone Encounter - Peg Scott RN - 10/08/2022 10:34 AM EST Reviewed most recent note from [facility] note. No mention of increased dose. T/C placed to them who stated they don't see anything but will send message to provider who is out onvacation and will be back next week. Provided my direct ext for call back. * Telephone Encounter - Marjorie Bass - 10/03/2022 10:42 AM EST Tc from pt calling to inform was told by her [facility]icians DR to request a higher dose for medication gabapentin 300 mg . States would like to know if it can be changed to 600 or 800mg . Where she is taking about a 1000 something mg a day . Pt informs she's been taking more tablets as advised by her spine dr . Please call to clarify . documented in this encounter Plan of Treatment Upcoming Encounters Date Type Department Care Team (Late st Contact Info) Description 01/12/2025 3:00 PM EDT [facility] [address] [facility] [place] [address] Ernie Noriega MD 230 [place] [address] documented as of this encounter Visit Diagnoses Not on filedocumented in this encounter Care Teams Ethnic Origins Teacher Relationship Specialty Start Date End Date Ernie Noriega MD 230 [facility] [place] [address] PCP - General Internal Medicine 08/25/19 documented as of this encounter
--- OUTSIDE RECORDS SUMMARY | 2024-11-08 16:07 | XMS_ITS | Encounter Summary ---
Author Organization [employer] Address [address] [place] [address] 7t [place] [address] Care Team Providers Care Certified Nurses' Aide Name Role Phone Ernie Noriega MD Primary Care Provide r Reason for Visit * Reason Onset Date Comments Med Refill 10/12/2024 Encounter Details Date Type Department Care Team ([facility] st Contact Info) Description 10/12/2024 Refill [facility] 230 [place] [address] Enrie Noriega MD 230 [place] [address] Primary osteoarthritis of knee, unspecified laterality Social [...] 3:00 PM EDT Office Visit [facility] 230 [place] [address] Ernie Noriega MD [address] [place] [address] documented as of this encounter Visit Diagnoses Diagnosis Primary osteoarthritis of knee, unspecified laterality documented in this encounter Additional Health Concerns Assessment Noted Time PHQ-9 Depression Total Score: 2 01/21/20 24 1:25 PM EDT documented as of this encounter Care Teams Certified Nurses' Aide Relationship Specialty Start Date End Date Ernie Noriega MD [address] [place] [address] PCP - General Internal Medicine 08/25/19 documented as of this encounter
--- OUTSIDE RECORDS SUMMARY | 2024-11-08 16:07 | XMS_ITS ---
Author Organization [facility] Address [address] [place] [address] Care Team Providers Care Ophthalmic Nurse Name Role Phone Milton oR MD, Ernie Primary Care Provide r Rodrick Juarez [phone] REASON FOR VISIT PROCEDURE TOMORROW Encounters Encounter Location Date Provider Diagnosis [facility] [address] [place] [address] 03/17/2024 Rodrick Millan PLAN OF TREATMENT No Information
--- OUTSIDE RECORDS SUMMARY | 2024-11-08 16:07 | XMS_ITS | Patient Health Record ---
Author Organization [facility] Address [address] [place] [address] Care Team Providers Care Coat Padder Name Role Phone Milton Ro MD, Ernie Primary Care Provide r Unavailable Rodrick Millan Unavailable [phone] ALLERGIES No Known Allergies RESULTS Component Value Reference Range Notes Pathology (Not yet reviewed by provider) Interpretation: Performing Lab:[facility], [address] [place] [id number] Notes/Report: REASON FOR REFERRAL No Information MEDICATIONS Medication SIG (Take, Route, Frequency, Duration) Notes Start Date End Date Status diphenhydrAMINE HCl 25 MG 1 capsule at bedtime as needed Orally Once a day for 30 day(s) Active Escitalopram Oxalate 5 MG 1 tablet Orall y Once a day for 30 day(s) Active Albuterol Sulfate HFA 108 (9 0 Base) MCG/ACT 1 puff as needed Inhalation every 4 hrs Active Nsaufpdesy-Eyumilq-Olalgygg 50-325-40 MG 1 capsule as needed Orally every 4 hrs Active Montelukast Sodium 10 MG 1 tablet Orally Once a day for 30 day(s) Active Nabumetone 750 MG as directed Orally Active Diclofenac Potassium 50 MG 1 tablet with food or milk as needed Orally Twice a day Not-Taking hydroCHLOROthiazide 25 MG 1 tablet in morning Orally Once a day for 30 day(s) Active Lidocaine 5 % 1 patch remove after 12 hours Externally Once a day Active Fluticasone Furoate 50 MCG/ACT 1 puff Inhalation Once a day Active Dulcolax (colon prep) 5 MG take at 3:00 p.m and 7:00p.m. Orally two tablets twice a day for one day for 1 day 08/12/2023 Active Gabapentin 600 MG 1 tablet Orally Once a day for 30 day(s) Active Fluticasone Propionate (Inhal) 250 MCG/ACT 1 puff Inhalation Twice a day Active Triamcinolone Acetonide 0.1% Active Zolpidem Tartrate 10 MG 1 tablet at bedt nithin as needed Orally Once a day Active buPROPion HCl 100mg Active Claritin 10mg Active Omeprazole 20 MG 1 capsule 30 minutes before morning meal Orally Once a day for 30 day(s) Active Zolpidem & Diet Manage Prod 10mg Active Tamsulosin HCl 0.4 MG 1 capsule Orally Once a day for 30 day(s) Active clonazePAM 0.5mg Act nayla Acetaminophen 500 MG 1 capsule as needed Orally every 6 hrs Active Albuterol Sulfate (2.5 MG/3ML) 0.083% 3 mL as needed Inhalation every 6 hrs Active ProAir HFA 90mcg Act nayla Ibuprofen 800mg Not- Taking Cyclobenzaprine HCl 10mg Active traMADol HCl 50mg Ac tive MiraLax (colon prep) 17 GM/SCOOP 1 238Gm bottle mixed with Gatorade or Crystal Light Orally begin at 5:00 p.m. the day before the procedure for 1 day 08/12/2023 Active SOCIAL HISTORY Sex Assigned At : Social History Observation Description Sex Assigned At Unknown PROBLEMS Problem Type ICD Code Onset Dates Problem Status W/U Status Risk SNOMED Code Notes Problem Colon cancer screening (Z12.11) Active confirmed 123584720 Problem Diverticulosis of large intestine without perforation or abscess without bleeding (K57.30) Active confirmed Diverticul ar disease of colon (914257472) Problem Preprocedural examination (Z01.818) Active confirmed 416004960109976 Problem Encounter for long-term (current) use of NSAIDs (Z79.1) Active confirmed 515228830 Encounters Encounter Location Date Provider Diagnosis [facility] Outpatient [address] [place] [phone] 02/03/2024 Rodrick Millan [facility] Outpatient [address] [place] [phone] 03/18/2024 Rodrick Millan Encounter for screen ing colonoscopy Z12.11 ; Colon polyps K63.5 ; Diverticulosis of large intestine without perforation or abscess without bleeding K57.30 and Internal hemorrhoids K64.8 [facility] [address] [place] [address] 12/14/2023 Rodrick Millan [facility] [address] [place] [address] 03/17/2024 Rodrick Millan ASSESSMENTS Encounter Date Diagnosis Assessment Notes Treatment Notes Treatment Clinical Notes 03/18/2024 Encounter for screening colonoscopy (ICD-10 - Z12.11) 03/18/2024 Colon polyps (ICD-10 - K63.5) 03/18/2024 Diverticulosis of large intestine without perforation or abscess without bleeding (ICD-10 - K57.30) 03/18/2024 Internal hemorrhoids (ICD-10 - K64.8) PLAN OF TREATMENT Pending Test Test Name Order Date Pathology 03/18/2024 Future Test Test Name Order Date COLONOSCOPY 03/24/2013 COLONOSCOPY 08/11/2023 Insurance Providers Payer Name Payer Address Payer Phone Subscriber Number Group Number Insured Name Patient Relationship to Insured Coverage Start Date Coverage End Date MEDICA[employer] OF [employer] [address] [facility] [place] [id number] [facility] Self - patient is the insured MEDICAL (GENERAL) HISTORY Medical History History ICD Code Denies VA,DM,CVA,renal disease Asthma Depression/anxiety Hypertension Negative screening colonoscopy in 06/2013 Arthritis/Body aches Surgical History Surgery Date(Month/Year) Back surgery for disc disease Bilateral carpal tunnel Left shoulder C-spine disc surgery Bilateral knee replacements Might be having a left shoulder replacem ent as of the 07/2023 OV
--- OUTSIDE RECORDS SUMMARY | 2024-11-08 16:07 | XMS_ITS | Encounter Summary ---
Author Organization [employer] Address [address] [place] [address] 7t [place] [address] Care Team Providers Care Manager Story Name Role Phone Ernie Noriega MD Primary Care Provide r Reason for Referral * Consultation (Routine) - Closed Specialty Diagnoses / Procedures Referred By Contac t Referred To Contact Pain Medicine Diagnoses Chronic midline low back pain without sciatica Ernie Noriega MD [address] [place] [address] Phone: tel: fax: [facility] Referral ID Status Reason Start Date Expiration Date V isits Requested Visits Authorized [id number] Closed Specialty Services Required 10/14/2024 10/14/2025 12 12 Reason for Visit * Reason Comments Hypertension Encounter Details Date Type Department Care Team (Late st Contact Info) Description 10/13/2024 3:00 PM EST Office Visit [facility] MEDICINE [address] [place], [place] [phone] Ernie Noriega MD [address] [place], [place] [phone] Essential hypertension (Primary Dx); Mild persistent asthma [...] Sign Reading Time Taken Comments Blood Pressure 127/77 10/13/2024 2:49 PM EST Pulse 60 10/13/2024 2:49 PM EST Temperature 36.1 ??C (96.9 ??F) 10/13/2024 2:49 PM ES T Respiratory Rate 20 10/13/2024 2:49 PM EST Oxygen Saturation 96% 10/13/2024 2:49 PM EST Inhaled Oxygen Concentration - - Weight 74.9 kg (165 lb 3.2 oz) 10/13/2024 2:49 P M EST Height 160 cm (5' 3 ) 10/13/2024 2:49 PM EST Body Mass Index 29.26 10/13/2024 2:49 PM EST documented in this encounter Progress Notes * Ernie Ro MD - 10/13/2024 3:00 PM EST REBEKAH Julien is a 59 y.o. female who presents for Hypertension. Hypertension This is a chronic problem. Pertinent negatives include no chest pain, headaches or shortness of breath. Review of Systems Constitutional: Negative for fever. HENT: Negative for sore throat. Respiratory: Negative for cough and shortness of breath. Cardiovascular: Negative for chest pain. Gastrointestinal: Negative for abdominal pain. Neurological: Negative for headaches. No Known Allergies OBJECTIVE Vitals: 10/13/24 1449 BP: 127/77 BP Location: Left arm Patient Position: Sitting BP Cuff Size: Adult Pulse: 60 Resp: 20 Temp: 96.9 ??F (36.1 ??C) TempSrc: Temporal SpO2: 96% Weight: 165 lb 3.2 oz (74.9 kg) Height: 5' 3 (1.6 m) Physical Exam Vitals reviewed. Constitutional: Appearance: Normal appearance. HENT: Head: Normocephalic and atraumatic. Right Ear: External ear normal. Left Ear: External ear normal. Nose: Nose normal. Mouth/Throat: Mouth: Mucous membranes are moist. Eyes: Conjunctiva/sclera: Conjunctivae normal. Cardiovascular: Rate and Rhythm: Normal rate and regular rhythm. Pulmonary: Effort: Pulmonary effort is normal. Breath sounds: Normal breath sounds. Skin: General: Skin is warm. Neurological: Mental Status: She is alert. Mental status is at baseline. Assessment/Plan Problem List Items Addressed This Visit Essential hypertension - Primary Patient with Hypertension currently controlled on a [...] about medication compliance, counseled about weight loss. Mild persistent asthma Patient is here for a f/u no recent exacerbations She is also on a regimen of: Advair, Pro-Air MDI QID PRN and Singulair 10 mg po daily she is under the care of Pulmonology Dr Snider, last seen 08/11/2024 Continue current regimen 6 month f/u Chronic low back pain Pt here for a f/u Hx of chronic low back pain, treated in the past at [facility] by Dr Clint Newberry. Hx of AP fusion from L4-sacrum in 2003. She received epidural injections with good results in the past. but that was no longer the case. Pt developed lumbar spinal stenosis and on 01/14/2021 underwent Posterior neural foraminotomy L2-L3byDr. Bailey. She was admitted to [facility] from 11/13/2022 until 11/20/2022 due to worsening low back pain with radiation to her right thigh and right leg after an experimental thoracic spinal stimulation procedure at the surgery center [facility] (She was referred there by [facility]). Procedure was aborted after pt experienced severe pain during the procedure. Patient treated with multiple rounds of pain medication with reported pain of 8/10. Acute pain service recommended increase in gabapentin dose hydromorphone and diazepam. Per Dr. Bethea, no further inpatient intervention needed. Patient to continue PT. Condition stabilized and patient was discharged home to follow up with us. Her Gabapentin was increased t o 600 mg po TID She was seen by Neurology as well who recommended no further work up from their perspective Since our last visit pt karleyd presented to the ER with c/o low [...] intervention would be an oblique lumbar interbody fusionL2-3, trans Kambin lumbar interbody fusion L1-2 and [...] to offer any surgical intervention that could help,pt is interested in being evaluated at the pain clinic. Pt today c/o pain 07/21 Plan: Refer to Pain Clinic Relevant Medications gabapentin (Neurontin) 300 MG capsule Other Relevant Orders Referral to Pain Medicine documented in this encounter Miscellaneous Notes * Assessment & Plan Note - Ernie Ro MD - 10/13/2024 3:36 PM EST Associated Problem(s): Essential hypertension Patient with Hypertension currently controlled on a [...] about medication compliance, counseled about weight loss. * Assessment & Plan Note - Ernie Ro MD - 10/13/2024 3:35 PM EST Associated Problem(s): Chronic low back pain Pt here for a f/u Hx of chronic low back pain, treated in the past at [facility] by Dr Clint Newberry. Hx of AP fusion from L4-sacrum in 2003. She received epidural injections with good results in the past. but that was no longer the case. Pt developed lumbar spinal stenosis and on 01/14/2021 underwent Posterior neural foraminotomy L2-L3WillieHammad Bailey. She was admitted to [facility] from 11/13/2022 until 11/20/2022 due to worsening low back pain with radiation to her right thigh and right leg after an experimental thoracic spinal stimulation procedure at the surgery center [facility] (She was referred there by [facility]). [...] up with us. Her Gabapentin was increased t o 600 mg po TID She was seen [...] intervention would be an oblique lumbar interbody fusionL2-3, trans Kambin lumbar interbody fusion L1-2 and [...] to offer any surgical intervention that could help,pt is interested in being evaluated at the pain clinic. Pt today c/o pain 07/21 Plan: Refer to Pain Clinic * Assessment & Plan Note - Ernie Ro MD - 10/13/2024 3:27 PM EST Associated Problem(s): Mild persistent asthma Patient is here for a f/u no recent exacerbations She is also on a regimen of: Advair, Pro-Air MDI QID PRN and Singulair 10 mg po daily she is under the care of Pulmonology Dr Snider, last seen 08/11/2024 Continue current regimen 6 month f/u documented in this encounter Plan of Treatment Upcoming Encounters Date Type Department Care Team (Late st Contact Info) Description 01/12/2025 3:00 PM EDT Office Visit [facility] MEDICINE [address] [place] [address] Ernie Noriega MD [address] [place] [address] Scheduled Referrals Name Type Priority Associated Diagnoses Orde r Schedule Referral to Pain Medicine Outpatient Referral Routine Chronic midline low back pain without sciatica Expected: 10/13/2024 (Approximate), Expires: 10/13/2025 documented as of this encounter Visit Diagnoses Diagnosis Essential hypertension- Primary Unspecified essential hypertension Mild persistent asthma without complication Chronic midline low back pain without sciatica documented in this encounter Additional Health Concerns Assessment Noted Time PHQ-9 Depression Total Score: 2 01/21/20 24 1:25 PM EDT documented as of this encounter Care Teams Manager Story Relationship Specialty Start Date End Date Ernie Noriega MD [address] [place] [address] PCP - General Internal Medicine 08/25/19 documented as of this encounter
--- OUTSIDE RECORDS SUMMARY | 2024-11-08 16:07 | XMS_ITS | Encounter Summary ---
Author Organization [employer] Address [address] [facility] 7t [place] [address] Care Team Providers Care Educational Adviser Name Role Phone Ernie Noriega MD Primary Care Provide r Encounter Details Date Type Department Care Team (Latest Contact Info) Description 10/12/2024 Travel Social History Tobacco Use Types Packs/Day [...] Description 01/12/2025 3:00 PM EDT Office Visit [facility] MED[facility]INE [address] [place] [address] Ernie Noriega MD [address] [place] [address] documented as of this encounter Visit Diagnoses Not on filedocumented in this encounter Additional Health Concerns Assessment Noted Time PHQ-9 Depression Total Score: 2 01/21/20 24 1:25 PM EDT documented as of this encounter Care Teams Educational Adviser Relationship Specialty Start Date End Date Ernie Noriega MD [address] [place] [address] PCP - General Internal Medicine 08/25/19 documented as of this encounter
--- OUTSIDE RECORDS SUMMARY | 2024-11-08 16:07 | XMS_ITS | Encounter Summary ---
Author Organization [employer] Address [address] [place] [address] 7t [place] [address] Care Team Providers Care Squeegeer And Former Name Role Phone Ernie Noriega MD Primary Care Provide r Reason for Visit * Reason Comments Med Refill Encounter Details Date Type Department Care Team ([facility] st Contact Info) Description 10/10/2024 Refill [facility] MEDICINE [address] [place], [place] [phone] Ernie Noriega MD [address] [place] [address] Pain Social History Tobacco Use Types Packs/Day [...] Description 01/12/2025 3:00 PM EDT Office Visit [facility] MED[facility]INE [address] [place] [address] Ernie Noriega MD [address] [place] [address] documented as of this encounter Visit Diagnoses Diagnosis Pain Generalized pain documented in this encounter Additional Health Concerns Assessment Noted Time PHQ-9 Depression Total Score: 2 01/21/20 24 1:25 PM EDT documented as of this encounter Care Teams Squeegeer And Former Relationship Specialty Start Date End Date Ernie Noriega MD [address] [place] [id number] PCP - General Internal Medicine 08/25/19 documented as of this encounter
--- OUTSIDE RECORDS SUMMARY | 2024-11-08 16:07 | XMS_ITS | Encounter Summary ---
Author Organization [employer] Address [address] [place] [address] 7t [place] [address] Care Team Providers Care Cold Food Packer Name Role Phone Ernie Noriega MD Primary Care Provide r Reason for Visit * Reason Onset Date Comments Med Refill 09/28/2024 Encounter Details Date Type Department Care Team ([facility] st Contact Info) Description 09/28/2024 Refill [facility] MEDICINE [address] [place] [address] Ernie Noriega MD [address] [place] [address] Primary osteoarthritis of knee, unspecified laterality Social [...] [facility] [address] [place] [address] Ernie Noriega MD [address] [place] [address] documented as of this encounter Visit Diagnoses Diagnosis Primary osteoarthritis of knee, unspecified laterality documented in this encounter Additional Health Concerns Assessment Noted Time PHQ-9 Depression Total Score: 2 01/21/20 24 1:25 PM EDT documented as of this encounter Care Teams Cold Food Packer Relationship Specialty Start Date End Date Ernie Noriega MD [address] [place] [phone] PCP - General Internal Medicine 08/25/19 documented as of this encounter
--- OUTSIDE RECORDS SUMMARY | 2024-11-08 16:07 | XMS_ITS | Encounter Summary ---
Author Organization [employer] Address [address] [place] [address] 7t [place] [address] Care Team Providers Care Roller Presser Operator Name Role Phone Ernie Noriega MD Primary Care Provide r Reason for Visit * Reason Onset Date Comments Med Refill 09/28/2024 Encounter Details Date Type Department Care Team ([facility] st Contact Info) Description 09/28/2024 Refill [facility] MEDICINE [address] [place] [address] Ernie Noriega MD [address] [place] [address] Chronic midline low back pain without sciatica; [...] Description 01/12/2025 3:00 PM EDT Office Visit [facility] MEDICINE [address] [place] [address] Ernie Noriega MD [address] [place] [address] documented as of this encounter Visit Diagnoses Diagnosis Chronic midline low back pain without sciatica Cervical radiculopathy Brachial neuritis or radiculitis nos documented in this encounter Additional Health Concerns Assessment Noted Time PHQ-9 Depression Total Score: 2 01/21/20 24 1:25 PM EDT documented as of this encounter Care Teams Roller Presser Operator Relationship Specialty Start Date End Date Ernie Noriega MD [address] [place] [address] PCP - General Internal Medicine 08/25/19 documented as of this encounter
--- OUTSIDE RECORDS SUMMARY | 2024-11-08 16:07 | XMS_ITS | Encounter Summary ---
Author Organization [employer] Address [address] [place] [address] 7t [place] [address] Care Team Providers Care Sole Dyer Name Role Phone Ernie Noriega MD Primary Care Provide r Reason for Visit * Reason Onset Date Comments verbal order 11/21/2022 Encounter Details Date Type Department Care Team (Late Contact Info) Description 11/21/2022 Telephone [facility] MEDICINE [address] [place] [address] Ernie Noriega MD [address] [place] [address] verbal order Social History Tobacco Use Types Packs/Day Years Used Date Smoking Tobacco: Never Assessed Comments Unknown Sex and Gender Information Value Date Recorded Sex Assigned at Female 08/11/2022 10:15 AM EDT Legal Sex Female 10:15 AM EDT Gender Identity Female 08/11/2022 10:15 AM EDT Sexual Orientation Straight 08/11/2022 10 :15 AM EDT documented as of this encounter Miscellaneous Notes * Telephone Encounter - Marjorie Bass - 11/21/2022 1:08 PM EST Tc from [facility] from [facility] calling to inform pt started home services today . [facility] is also requesting a verbal order for pt to start physical therapy for 2x a week for 4 weeks . Best contact # [phone]. documented in this encounter Plan of Treatment Upcoming Encounters Date Type Department Care Team (Late Contact Info) Description 01/12/2025 3:00 PM EDT Office Visit [facility] [address] [facility] [place] [address] Ernie Noriega MD [address] [place] [address] documented as of this encounter Visit Diagnoses Not on filedocumented in this encounter Care Teams Sole Dyer Relationship Specialty Start Date End Date Ernie Noriega MD [facility] [place] [address] PCP - General Internal Medicine 08/25/19 documented as of this encounter
--- OUTSIDE RECORDS SUMMARY | 2024-11-08 16:07 | XMS_ITS | Encounter Summary ---
Author Organization [facility] [employer] Address [address] [place] [address] 7t [place] [address] Care Team Providers Care Nuclear Control Room Operator Name Role Phone Ernie Noriega MD Primary Care Provide r Reason for Visit * Reason Onset Date Comments Med Refill 10/13/2024 Encounter Details Date Type Department Care Team ([facility] st Contact Info) Description 10/13/2024 Refill [facility] MEDICINE [address] [place] [address] Ernie Noriega MD [address] [place] [address] Chronic midline low back pain without sciatica [...] Description 01/12/2025 3:00 PM EDT Office Visit [facility] MEDICINE [address] [place] [address] Ernie Noriega MD [address] [place] [address] documented as of this encounter Visit Diagnoses Diagnosis Chronic midline low back pain without sciatica documented in this encounter Additional Health Concerns Assessment Noted Time PHQ-9 Depression Total Score: 2 01/21/20 24 1:25 PM EDT documented as of this encounter Care Teams Nuclear Control Room Operator Relationship Specialty Start Date End Date Ernie Noriega MD [address] [place] [phone] PCP - General Internal Medicine 08/25/19 documented as of this encounter
== END 2024-11-08 15:40 | disposition home or self-care (01) ==
PROVIDERS: PCP Internal Medicine; Visit Provider Nurse Practitioner Family
DX: G96.12 Meningeal adhesions (cerebral) (spinal) (principal); M48.04 Spinal stenosis, thoracic region; M96.1 Postlaminectomy syndrome, not elsewhere classified; M48.061 Spinal stenosis, lumbar region without neurogenic claudication; M43.15 Spondylolisthesis, thoracolumbar region; M54.50 Low back pain, unspecified; G89.29 Other chronic pain
CPT/HCPCS: 99214

== ENCOUNTER → 2024-11-08 15:06 | Outpatient (BNVA) | payer MEDICAID, SELFPAY | PROVIDERS: PCP Internal Medicine; Visit Provider Nurse Practitioner Family | DX: G62.9 Polyneuropathy, unspecified (principal); G96.12 Meningeal adhesions (cerebral) (spinal); M48.04 Spinal stenosis, thoracic region; M96.1 Postlaminectomy syndrome, not elsewhere classified; M48.061 Spinal stenosis, lumbar region without neurogenic claudication; M43.15 Spondylolisthesis, thoracolumbar region; G89.29 Other chronic pain | CPT/HCPCS: 99212 ==

== ENCOUNTER 2024-12-09 08:11 | Day surgery (SDC) | payer MEDICAID, SELFPAY ==
[2024-12-07 13:28] VITALS: BMI 28.9
--- OUTSIDE RECORDS SUMMARY | 2024-12-07 15:00 | XMS_ITS | Referral Summary ---
Author Organization [facility] Address [address] [place] [address] Care Team Providers Care Credit Collections Rep Name Role Phone Ernie Merritt Primary Care Provider + Allergies No known active allergies Medications acetaminophen (TYLENOL) 500 mg tablet SMARTSI Tablet(s) By Mouth Every 12 Hours PRN 3 Active docosahexaenoic acid-epa 120-180 mg capsule Take 1,000 mg by mouth daily. Active escitalopram (LEXAPRO) 5 mg tablet Take 5 mg by mouth once a day. 3 Active Advair Diskus 250-50 mcg/dose inhaler SMARTSI inhalation By Mouth Twice Daily 3 Active fluticasone propionate (FLONASE) 50 mcg/actuation nasal spray SMARTSI [place](s) Both Nares Twice Daily 3 Active tamsulosin (FLOMAX) 0.4 mg capsule Take 0.4 mg by mouth once a day. 3 Active nabumetone (RELAFEN) 750 mg tablet Take 750 mg by mouth once a day. 3 Active lidocaine (LIDODERM) 5% patch Apply 1 patch topically to the affected area once a day. 3 Active montelukast (SINGULAIR) 10 mg tablet Take 10 mg by mouth nightly. 3 Active hydroCHLOROthia zide (HYDRODIURIL) 25 mg tablet Take 25 mg by mouth daily. 2 Active omeprazole (PriLOSEC) 20 mg capsule Take 20 mg by mouth once a day. 3 Active zolpidem (AMBIEN) 10 mg tablet Take 10 mg by mouth nightly as needed for sleep. 3 Active traMADoL (ULTRAM) 50 mg tablet SMARTSI Tablet(s) By Mouth Every 8 Hours PRN 3 Active gabapentin (NEURONTIN) 600 mg tablet Take 600 mg by mouth 3 times a day. Active Active Problems Problem Noted Date Diagnosed Date Lump In / On The Skin 09/24/2010 Anxiety Disorder NOS 09/24/2010 Social History Tobacco Use Types Packs/Day Years Used Date Smoking Tobacco: Former Cigarettes Q uit: 2002 Smokeless Tobacco: Never Tobacco Cessation:Counseling Given: Not Answered Alcohol Use Standard Drinks/Week Comments Never 0 (1 standard drink = 0.6 oz pur e alcohol) Comments Unknown Sex and Gender Information Value Date Recorded Sex Assigned at Female 03/16/2023 8:41 AM EDT Legal Sex Female 3:56 AM EDT Gender Identity Female 03/16/2023 8:41 AM EDT Sexual Orientation Bisexual 03/16/2023 8: 41 AM EDT Last Filed Vital Signs Vital Sign Reading Time Taken Comments Blood Pressure 130/79 03/19/2023 1:15 PM EDT Pulse 58 03/19/2023 1:15 PM EDT Temperature 36.8 ??C (98.3 ??F) 03/19/2023 1:15 PM ED T Respiratory Rate 16 03/19/2023 1:15 PM EDT Oxygen Saturation 100% 09/24/2010 2:26 PM EST Inhaled Oxygen Concentration - - Weight 77 kg (169 lb 12.1 oz) 03/19/2023 1:15 PM EDT Height 160 cm (5' 3 ) 03/19/2023 1:15 PM EDT Body Mass Index 30.07 03/19/2023 1:15 PM EDT Plan of Treatment Upcoming Encounters Date Type Department Care Team (Late st Contact Info) Description 12/12/2024 3:30 PM EST Office Visit [facility] [address] [place] [phone] Neema Bhagat MD [address] [place] [phone] [place] Care Teams Credit Collections Rep Relationship Specialty Start Date End Date Ernie Merritt [address] [place] [phone] PCP - General Internal Medicine 11/29/24
--- OUTSIDE RECORDS SUMMARY | 2024-12-07 15:00 | XMS_ITS | Encounter Summary ---
Author Organization [employer] Address [address] [place] [address] 7t [place] [address] Care Team Providers Care Securities Lending Trader Name Role Phone Ernie Noriega MD Primary Care Provide r Reason for Visit * Reason Comments Med Refill Encounter Details Date Type Department Care Team ([facility] st Contact Info) Description 08/10/2023 Refill [facility] MEDICINE [address] [place] [address] Ernie Noriega MD [address] [place] [address] Primary osteoarthritis of knee, unspecified laterality; Chronic [...] Description 01/12/2025 3:00 PM EDT Office Visit [facility] MEDICINE [address] [place] [address] Ernie Noriega MD [address] [place] [address] documented as of this encounter Visit Diagnoses Diagnosis Primary osteoarthritis of knee, unspecified laterality Chronic midline low back pain without sciatica Cervical radiculopathy Brachial neuritis or radiculitis nos Pain Generalized pain documented in this encounter Additional Health Concerns Assessment Noted Time PHQ-9 Depression Total Score: 0 12/02/19 23 2:38 PM EST documented as of this encounter Care Teams Securities Lending Trader Relationship Specialty Start Date End Date Ernie Noriega MD [address] [place] [address] PCP - General Internal Medicine 08/25/19 documented as of this encounter
--- OUTSIDE RECORDS SUMMARY | 2024-12-07 15:00 | XMS_ITS | Encounter Summary ---
Author Organization [employer] Address [address] [place] [address] 7 [place] [address] Care Team Providers Care Admitting Clerk Name Role Phone Ernie Noriega MD Primary Care Provide r Reason for Visit * Reason Onset Date Comments Med Refill 10/25/2023 Encounter Details Date Type Department Care Team ([facility] st Contact Info) Description 10/25/2023 Refill [facility] MEDICINE [address] [place] [address] Ernie Noriega MD [address] [place] [address] Social History Tobacco Use Types Packs/Day Years [...] 3:00 PM EDT Office Visit [facility] MEDICINE [address] [place] [address] Ernie Noriega MD [address] [place] [address] documented as of this encounter Visit Diagnoses Not on filedocumented in this encounter Additional Health Concerns Assessment Noted Time PHQ-9 Depression Total Score: 0 12/02/19 23 2:38 PM EST documented as of this encounter Care Teams Admitting Clerk Relationship Specialty Start Date End Date Ernie Noriega MD [address] [place] [address] PCP - General Internal Medicine 08/25/19 documented as of this encounter
--- OUTSIDE RECORDS SUMMARY | 2024-12-07 15:00 | XMS_ITS | Encounter Summary ---
Author Organization [employer] Address [address] [place] [address] 7t [place] [address] Care Team Providers Care Dragger Name Role Phone Ernie Noriega MD Primary Care Provide r Reason for Visit * Reason Onset Date Comments Med Refill 10/27/2023 Encounter Details Date Type Department Care Team ([facility] st Contact Info) Description 10/27/2023 Refill [facility] [address] [place] [address] Ernie Noriega MD [address] [place] [address] Seasonal allergies; Pain Social History Tobacco Use [...] 3:00 PM EDT Office Visit [facility] [address] [place] [address] Ernie Noriega MD [address] [place] [address] documented as of this encounter Visit Diagnoses Diagnosis Seasonal allergies Allergic rhinitis, cause unspecified Pain Generalized pain documented in this encounter Additional Health Concerns Assessment Noted Time PHQ-9 Depression Total Score: 0 12/02/19 23 2:38 PM EST documented as of this encounter Care Teams Dragger Relationship Specialty Start Date End Date Ernie Noriega MD [address] [place] [address] PCP - General Internal Medicine 08/25/19 documented as of this encounter
--- OUTSIDE RECORDS SUMMARY | 2024-12-07 15:00 | XMS_ITS | Encounter Summary ---
Author Organization [employer] Address [address] [place] [address] 7t [place] [address] Care Team Providers Care Customer Advocacy Manager Name Role Phone Ernie Noriega MD Primary Care Provide r Reason for Visit * Reason Onset Date Comments Med Refill 10/27/2023 Encounter Details Date Type Department Care Team ([facility] st Contact Info) Description 10/27/2023 Refill [facility] [address] [place] [address] Ernie Noriega MD [address] [place] [address] Mild persistent asthma without complication; Pain; Chronic [...] 3:00 PM EDT Office Visit [facility] [address] [place] [address] Ernie Noriega MD [address] [place] [phone] documented as of this encounter Visit Diagnoses Diagnosis Mild persistent asthma without complication Pain Generalized pain Chronic midline low back pain without sciatica Cervical radiculopathy Brachial neuritis or radiculitis nos documented in this encounter Additional Health Concerns Assessment Noted Time PHQ-9 Depression Total Score: 0 12/02/19 23 2:38 PM EST documented as of this encounter Care Teams Customer Advocacy Manager Relationship Specialty Start Date End Date Ernie Noriega MD [address] [place] [address] PCP - General Internal Medicine 08/25/19 documented as of this encounter
--- OUTSIDE RECORDS SUMMARY | 2024-12-07 15:00 | XMS_ITS | Encounter Summary ---
Author Organization [employer] Address [address] [place] [address] 7t [place] [address] Care Team Providers Care Checkroom Chief Name Role Phone Ernie Noriega MD Primary Care Provide r Reason for Visit * Reason Onset Date Comments Med Refill 10/25/2024 Encounter Details Date Type Department Care Team ([facility] st Contact Info) Description 10/25/2024 Refill [facility] [address] [place] [address] Ernie Noriega MD [address] [place] [address] Chronic midline low back pain without sciatica [...] Visit [facility] [address] [place] [address] Ernie Noriega MD [address] [place] [address] documented as of this encounter Visit Diagnoses Diagnosis Chronic midline low back pain without sciatica documented in this encounter Additional Health Concerns Assessment Noted Time PHQ-9 Depression Total Score: 2 01/21/20 24 1:25 PM EDT documented as of this encounter Care Teams Checkroom Chief Relationship Specialty Start Date End Date Ernie Noriega MD [address] [place] [phone] PCP - General Internal Medicine 08/25/19 documented as of this encounter
--- OUTSIDE RECORDS SUMMARY | 2024-12-07 15:00 | XMS_ITS | Encounter Summary ---
Author Organization [employer] Address [address] [place] [address] 7t [place] [address] Care Team Providers Care Layer Off Name Role Phone Ernie Noriega MD Primary Care Provide r Reason for Visit * Reason Onset Date Comments Med Refill 10/27/2023 Encounter Details Date Type Department Care Team ([facility] st Contact Info) Description 10/27/2023 Refill [facility] [address] [place] [address] Perlita Woody MD [address] [place] [address] Primary hypertension Social History Tobacco Use Types [...] 3:00 PM EDT Office Visit [facility] [address] [place] [address] Ernie Noriega MD [address] [place] [address] documented as of this encounter Visit Diagnoses Diagnosis Primary hypertension Unspecified essential hypertension documented in this encounter Additional Health Concerns Assessment Noted Time PHQ-9 Depression Total Score: 0 12/02/19 23 2:38 PM EST documented as of this encounter Care Teams Layer Off Relationship Specialty Start Date End Date Ernie Noriega MD [address] [place] [address] PCP - General Internal Medicine 08/25/19 documented as of this encounter
--- OUTSIDE RECORDS SUMMARY | 2024-12-07 15:00 | XMS_ITS | Encounter Summary ---
Author Organization [employer] Address [address] [place] [address] 7t [place] [address] Care Team Providers Care Driller Hand Name Role Phone Ernie Noriega MD Primary Care Provide r Reason for Visit * Reason Onset Date Comments Med Refill 10/25/2023 Encounter Details Date Type Department Care Team ([facility] st Contact Info) Description 10/25/2023 Refill [facility] [address] [place] [address] Perlita Woody MD [address] [place] [address] Primary hypertension Social History Tobacco Use Types [...] Description 01/12/2025 3:00 PM EDT Office Visit [facility] MED[facility] [address] [place] [address] Ernie Noriega MD [address] [place] [address] documented as of this encounter Visit Diagnoses Diagnosis Primary hypertension Unspecified essential hypertension documented in this encounter Additional Health Concerns Assessment Noted Time PHQ-9 Depression Total Score: 0 12/02/19 23 2:38 PM EST documented as of this encounter Care Teams Driller Hand Relationship Specialty Start Date End Date Ernie Noriega MD [address] [place] [address] PCP - General Internal Medicine 08/25/19 documented as of this encounter
--- OUTSIDE RECORDS SUMMARY | 2024-12-07 15:00 | XMS_ITS | Encounter Summary ---
Author Organization [employer] Address [address] [place] [address] 7t [place] [address] Care Team Providers Care Artificial Breast Fabricator Name Role Phone Ernie Noriega MD Primary Care Provide r Reason for Visit * Reason Onset Date Comments Med Refill 11/01/2024 Encounter Details Date Type Department Care Team ([facility] st Contact Info) Description 11/01/2024 Refill [facility] [address] [place] [address] Sugar Mitchell MD [address] [place] [address] Seasonal allergies Social History Tobacco Use Types [...] Description 01/12/2025 3:00 PM EDT Office Visit [facility] [address] [place] [address] Ernie Noriega MD [address] [place] [address] documented as of this encounter Visit Diagnoses Diagnosis Seasonal allergies Allergic rhinitis, cause unspecified documented in this encounter Additional Health Concerns Assessment Noted Time PHQ-9 Depression Total Score: 2 01/21/20 24 1:25 PM EDT documented as of this encounter Care Teams Artificial Breast Fabricator Relationship Specialty Start Date End Date Ernie Noriega MD [address] [place] [address] PCP - General Internal Medicine 08/25/19 documented as of this encounter
--- OUTSIDE RECORDS SUMMARY | 2024-12-07 15:00 | XMS_ITS | Encounter Summary ---
Author Organization [facility] Address [address] [place] [address] 7t [place] [address] Care Team Providers Care Threshing Department Supervisor Name Role Phone Ernie Noriega MD Primary Care Provide r Encounter Details Date Type Department Care Team (Late st Contact Info) Description 04/13/2023 Orders Only [facility] MED[facility] [address] [place] [address] [phone] Sugar Mitchell MD [address] [place] [address] [phone] Neuropathic pain of right lower extremity (Primary [...] Description 01/12/2025 3:00 PM EDT Office Visit [facility] [address] [place] [address] Ernie Noriega MD [address] [place], [place] [phone] documented as of this encounter Procedures Procedure Name Priority Date/Time Associated Diagnosis Comments BASIC METABOLIC PANEL Routine 05/13/2023 8:40 AM EDT Neuropathic pain of right lower extremity documented in this encounter Results * (ABNORMAL) Basic Metabolic Panel (05/13/2023 8:40 AM EDT) Sodium 141 135 - 145 mmol/L [facility] Potassium 3.5 3.3 - 5.1 mmol/L [facility] Chloride 103 96 - 108 mmol/L [facility] Carbon Dioxide 23 22 - 29 mmol/L [facility] Anion Gap 19 12 - 20 [facility] Urea Nitrogen (BUN) 15 9 - 16 mg/dL [facility] Creatinine, Serum 0.78 0.5 - 1.4 mg/dL [facility] Estimated Glomerular Filt Rate >60 [facility] Comment:NOTE: For -Am erican individuals, multiply the result by 1.210.Chronic Kidney Disease: Estimated GFR < 60 mL/min/[id number] Kidney Disease: Estimated GFR < 15 mL/min/1.73m2 Glucose 151(H) 60 - 115 mg/dL [facility] Calcium 9.3 8.4 - 10.2 mg/dL [facility] Blood Venous blood specimen / Unknown 05/13/2023 8:40 AM EDT 05/13/2023 11:14 AM EDT us Sugar Mitchell MD LAB BLOOD ORDERABLES Final Resul t [facility] [address] [place] [phone] [phone] documented in this encounter Visit Diagnoses Diagnosis Neuropathic pain of right lower extremity- Primary documented in this encounter Additional Health Concerns Assessment Noted Time PHQ-9 Depression Total Score: 0 12/02/19 23 2:38 PM EST documented as of this encounter Care Teams Threshing Department Supervisor Relationship Specialty Start Date End Date Ernie Noriega MD [address] [place] [address] PCP - General Internal Medicine 08/25/19 documented as of this encounter
--- OUTSIDE RECORDS SUMMARY | 2024-12-07 15:00 | XMS_ITS | Encounter Summary ---
Author Organization [employer] Address [address] [place] [address] 7t [place] [address] Care Team Providers Care Bellows Filler Name Role Phone Ernie Noriega MD Primary Care Provide r Reason for Visit * Reason Onset Date Comments Med Refill 04/16/2024 Encounter Details Date Type Department Care Team ([facility] st Contact Info) Description 04/16/2024 Refill [facility] [address] [place] [address] Ernie Noriega MD [address] [place] [address] Essential hypertension Social History Tobacco Use Types [...] Description 01/12/2025 3:00 PM EDT Office Visit [facility] [address] [place] [address] Ernie Noriega MD [address] [place] [address] documented as of this encounter Visit Diagnoses Diagnosis Essential hypertension Unspecified essential hypertension documented in this encounter Additional Health Concerns Assessment Noted Time PHQ-9 Depression Total Score: 2 01/21/20 24 1:25 PM EDT documented as of this encounter Care Teams Bellows Filler Relationship Specialty Start Date End Date Ernie Noriega MD [address] [place] [address] PCP - General Internal Medicine 08/25/19 documented as of this encounter
--- OUTSIDE RECORDS SUMMARY | 2024-12-07 15:00 | XMS_ITS | Encounter Summary ---
Author Organization [employer] Address [address] [place] [address] 7t [place] [address] Care Team Providers Care Oven Tender Bagels Name Role Phone Ernie Noriega MD Primary Care Provide r Reason for Visit * Reason Onset Date Comments Med Refill 01/26/2024 Encounter Details Date Type Department Care Team ([facility] st Contact Info) Description 01/26/2024 Refill [facility] [address] [place] [address] Ilsa Robison, ANP [address] [place] [address] Chronic midline low back pain without sciatica; [...] Description 01/12/2025 3:00 PM EDT Office Visit [facility] [address] [place] [address] Ernie Noriega MD [address] [place] [address] documented as of this encounter Visit Diagnoses Diagnosis Chronic midline low back pain without sciatica Cervical radiculopathy Brachial neuritis or radiculitis nos documented in this encounter Additional Health Concerns Assessment Noted Time PHQ-9 Depression Total Score: 2 01/21/20 24 1:25 PM EDT documented as of this encounter Care Teams Oven Tender Bagels Relationship Specialty Start Date End Date Ernie Noriega MD [address] [place] [address] PCP - General Internal Medicine 08/25/19 documented as of this encounter
--- OUTSIDE RECORDS SUMMARY | 2024-12-07 15:00 | XMS_ITS | Encounter Summary ---
Author Organization [employer] Address [address] [place] [address] 7t [place] [address] Care Team Providers Care Metalizer Field Operation Name Role Phone Ernie Noriega MD Primary Care Provide r Reason for Visit * Reason Onset Date Comments Med Refill 03/15/2024 Encounter Details Date Type Department Care Team ([facility] st Contact Info) Description 03/15/2024 Refill [facility] [address] [place] [address] Ofelia Melgar MD [address] [place] [address] Chronic midline low back pain without sciatica; [...] Description 01/12/2025 3:00 PM EDT Office Visit [facility] [address] [place] [address] Ernie Noriega MD [address] [place] [address] documented as of this encounter Visit Diagnoses Diagnosis Chronic midline low back pain without sciatica Cervical radiculopathy Brachial neuritis or radiculitis nos documented in this encounter Additional Health Concerns Assessment Noted Time PHQ-9 Depression Total Score: 2 01/21/20 24 1:25 PM EDT documented as of this encounter Care Teams Metalizer Field Operation Relationship Specialty Start Date End Date Ernie Noriega MD [address] [place] [address] PCP - General Internal Medicine 08/25/19 documented as of this encounter
--- OUTSIDE RECORDS SUMMARY | 2024-12-07 15:00 | XMS_ITS | Clinical Summary ---
Author Organization [facility] Address [address] [place] [address] Care Team Providers Care Bull Riveter Name Role Phone Ernie Merritt Primary Care [...] propionate (FLONASE) 50 mcg/actuation nasal spray [employer] [place](s) Both Nares Twice Daily 3 Active tamsulosin [...] Description 12/12/2024 3:30 PM EST Office Visit [facility] [address] [place] [phone] Neema Bhagat MD [address] [place] [phone] Health Maintenance Due Date Last Done Comments Cervical Cancer Screening 1965 Cologuard 1963 Colon Cancer Screening 1963 Colonoscopy 1963 FOBT / Fit Test 1963 HIV Screening 1965 HPV and Pap Smear 1963 Pap Smear 1963 Sigmoidoscopy 1963 RSV Vaccine (60+ years old and patients) (1 - Risk 60-74 years 1-dose series) 2023 COVID-19 Vaccine ( season) 2024 07/16/2022, 08/28/2021, 02/22/2021, Additional history exists Alcohol/Substance Use Screening 10/12/2024 Depression Screening and Follow-Up 10/12/2024 [employer] Annual Screening 10/12/2024 Mammogram 12/23/2024 12/23/2022, 09/12, 09/10/2018 DTaP,Tdap,and Td Vaccines (3 - Td or Tdap) 04/04/2031 04/04/2021, 03/10/2014, 05/12/2012 Zoster Vaccines Completed 08/15/2020, 05/26/2020 Hepatitis C Screening Completed 11/07/2022 Pneumococcal Vaccine: 50+ Years Completed 05/13/2023, 11/12/2015, 05/12/2012 Influenza Vaccine Completed 07/09/2024, , 07/16/2022, Additional history exists Hepatitis B Vaccines Aged Out No long er eligible based on patient's age to complete this topic Insurance [employer] [facility] Care Teams Bull Riveter Relationship Specialty Start Date End Date Ernie Merritt [address] [place] [address] [place] [address] PCP - General Internal Medicine 11/29/24
--- OUTSIDE RECORDS SUMMARY | 2024-12-07 15:00 | XMS_ITS | Encounter Summary ---
Author Organization [employer] [facility] Address [address] [place] [address] 7 [place] [address] Care Team Providers Care Lottery Manager Name Role Phone Ernie Noriega MD Primary Care Provide r Reason for Visit * Reason Onset Date Comments Appointment Request 02/17/2023 Encounter Details Date Type Department Care Team ([facility] st Contact Info) Description 02/17/2023 Telephone [facility] [address] [place] [address] Ernie Noriega MD [address] [place] [address] Appointment Request Social History Tobacco Use Types [...] a colonoscopy due to advise by her employment specialist in [facility] hospital Please contact pt AT [phone] Mal[place]ian Speaker documented in this encounter Plan of Treatment Upcoming Encounters Date Type Department Care Team (Late st Contact Info) Description 01/12/2025 3:00 PM EDT Office Visit [facility] [address] [place] [address] Ernie Noriega MD [address] [place] [address] documented as of this encounter Visit Diagnoses Not on filedocumented in this encounter Additional Health Concerns Assessment Noted Time PHQ-9 Depression Total Score: 0 12/02/19 23 2:38 PM EST documented as of this encounter Care Teams Lottery Manager Relationship Specialty Start Date End Date Ernie Noriega MD [address] [place], [place] [phone] PCP - General Internal Medicine 08/25/19 documented as of this encounter
--- OUTSIDE RECORDS SUMMARY | 2024-12-07 15:00 | XMS_ITS | Encounter Summary ---
Author Organization [employer] Address [address] [place] [address] 7 [place] [address] Care Team Providers Care Hardness Inspector Name Role Phone Ernie Noriega MD Primary Care Provide r Reason for Visit * Reason Onset Date Comments Med Refill 10/17/2024 Encounter Details Date Type Department Care Team ([facility] st Contact Info) Description 10/17/2024 Refill [facility] [address] [place] [address] Ernie Noriega MD [address] [place] [address] Primary osteoarthritis of knee, unspecified laterality Social [...] 3:00 PM EDT Office Visit [facility] [address] [place] [address] Ernie Noriega MD [address] [place] [address] documented as of this encounter Visit Diagnoses Diagnosis Primary osteoarthritis of knee, unspecified laterality documented in this encounter Additional Health Concerns Assessment Noted Time PHQ-9 Depression Total Score: 2 01/21/20 24 1:25 PM EDT documented as of this encounter Care Teams Hardness Inspector Relationship Specialty Start Date End Date Ernie Noriega MD [address] [place] [phone] PCP - General Internal Medicine 08/25/19 documented as of this encounter
--- OUTSIDE RECORDS SUMMARY | 2024-12-07 15:00 | XMS_ITS | Encounter Summary ---
Author Organization [employer] Address [address] [place] [address] 7t [place] [address] Care Team Providers Care Air Conditioning Technician Name Role Phone Ernie Noriega MD Primary Care Provide r Reason for Visit * Reason Onset Date Comments Med Refill 11/07/2024 Encounter Details Date Type Department Care Team ([facility] st Contact Info) Description 11/07/2024 Refill [facility] [address] [place] [address] Ernie Noriega MD [address] [place] [address] Chronic midline low back pain without sciatica [...] 01/12/2025 3:00 PM EDT Office Visit [facility] [address] [place] [address] Ernie Noriega MD [address] [place] [address] documented as of this encounter Visit Diagnoses Diagnosis Chronic midline low back pain without sciatica documented in this encounter Additional Health Concerns Assessment Noted Time PHQ-9 Depression Total Score: 2 01/21/20 24 1:25 PM EDT documented as of this encounter Care Teams Air Conditioning Technician Relationship Specialty Start Date End Date Ernie Noriega MD [address] [place] [phone] PCP - General Internal Medicine 08/25/19 documented as of this encounter
--- OUTSIDE RECORDS SUMMARY | 2024-12-07 15:00 | XMS_ITS | Clinical Summary ---
Author Organization [facility] Address [address] [place] [address] Phone Care Team Providers Care Contract Agent Name Role Phone Ernie Merritt MD Primary Care Provi bobo Allergies No known active allergies Medications fluticasone propion-salmet Nader (ADVAIR DISKUS) 100-50 mcg/dose diskus inhaler Inhale 1 Puff into the lungs every 12 hours. Active gabapentin (NEURONTIN) 300 mg capsule Take 300 mg by mouth 2 times daily. Active hydroCHLOROthi azide 12.5 mg tablet Take 12.5 mg by mouth daily. Active montelukast (SINGULAIR) 10 mg tablet Take 10 mg by mouth at bedtime. Active zolpidem (AMBIEN) 10 mg tablet Take 10 mg by mouth at bedtime as needed. Active acetaminophen (TYLENOL) 500 mg tablet Take 2 tablets (1,000 mg total) by mouth every 8 (eight) hours if needed for mild pain. 30 tablet 5 Active oxyCODONE (ROXICODONE) 5 mg immediate release tablet Take 1 tablet (5 mg total) by mouth every 4 (four) hours if needed for severe pain. Max Daily Amount: 30 mg 8 tablet 5 Active ibuprofen (ADVIL,MOTRIN) 600 mg tablet Take 1 tablet (600 mg total) by mouth every 6 (six) hours if needed for mild pain. 30 each 5 Active acetaminophen (TYLENOL) 500 mg tablet TOME DEBBIE TABLETA ABRAHAM VECES AL FERNANDO FOR PAIN 3 12/07/19 25 Discontinued ibuprofen (ADVIL,MOTRIN) 600 mg tablet Take 1 Tablet by mouth every 8 hours as needed for Pain (Take with food. do not take with meloxicam) for up to 60 doses. 12/07/19 25 Discontinued oxyCODONE (ROXICODONE) 5 mg immediate release tablet every 4 (four) hours if needed for severe pain. 12/07/19 25 Discontinued Hospital, Clinic, or Other Facility Administered Medication Ordered Dose Route Frequency Start Date End Date Status BUPivacaine HCl (MARCAINE) 0.5 % injection 2 mLIndications:Rotato r cuff arthropathy, left 2 mL inj Once PRN Procedure 11/23/2024 11/23/2024 Ended lidocaine (XYLOCAINE) 1 % injection 2 mLIndications:Rotato r cuff arthropathy, left 2 mL inj Once PRN Procedure 11/23/2024 11/23/2024 Ended triamcinolone acetonide (KENALOG-40) 40 mg/mL injection 40 mgIndications:Rotato r cuff arthropathy, left 40 mg OTHER Once PRN Procedure 11/23/2024 11/23/2024 Ended Active Problems Problem Noted Date Diagnosed Date Acquired trigger finger of left index finger De Quervain's tenosynovitis, left 09/01/2023 Trigger thumb of right hand 07/03/2021 Encounters Date Type Department Care Team Description 12/07/2024 1:30 PM EST - 12/07/2024 3:00 PM EST Surgery [facility] OR [address] [place] [phone] Trista David MD LEFT A1 JOAO/TRIGGER FINGER RELEASE INDEX FINGER [05814 (CPT??)] 12/07/2024 12:30 PM EST Anesthesia Event [facility] OR [address] [place] [phone] Irvin Fields MD Decandio, Laura, CRNA 12/07/2024 11:51 AM EST - 12/07/2024 2:43 PM EST Hospital Encounter [facility] OR [address] [place] [phone] Trista David MD Discharge Disposition: Home or Self Care 11/23/2024 11:00 AM EST Office Visit Orthopedic Surgery [facility] [address] [facility] 160 [place] [address] Leroy Lees MD Rotator cuff arthropathy, left (Primary Dx) 11/22/2024 10:45 AM EST Consult Orthopedic Surgery [facility] 175 [facility] [address] [place] [address] Trista David MD Acquired trigger finger of left index finger (Primary Dx) 11/04/2024 Telephone Orthopedic Surgery [facility] 175 [facility] [address] [place] [address] Eulalia Velez from Last 3 Months Surgical History Surgery Date Site/Laterality Comments CARPAL TUNNEL RELEASE Bilateral SHOULDER SURGERY Left at least 10 years ago (pre-2014?) BACK SURGERY HARDWARD CERVICAL & LUMBAR TOTAL KNEE ARTHROPLASTY Bilateral Medical History Medical History Date Comments Essential hypertension DX:Essent ial hypertension Asthma Arthritis Joint pain Social History Tobacco Use Types Packs/Day Years Used Date Smoking Tobacco: Never Smokeless Tobacco: Never Alcohol Use Standard Drinks/Week Comments Never 0 (1 standard drink = 0.6 oz pur e alcohol) Comments No Sex and Gender Information Value Date Recorded Sex Assigned at Female 12/05/2024 9:25 AM EST Legal Sex Female 6:19 PM EST Gender Identity Female 12/05/2024 9:25 AM EST Sexual Orientation Not on file Obstetrics History Last Filed Vital Signs Vital Sign Reading Time Taken Comments Blood Pressure 106/54 12/07/2024 1:50 PM EST Pulse 54 12/07/2024 1:50 PM EST Temperature 36.2 ??C (97.2 ??F) 12/07/2024 1:21 PM ES T Respiratory Rate 16 12/07/2024 1:50 PM EST Oxygen Saturation 96% 12/07/2024 1:50 PM EST Inhaled Oxygen Concentration - - Weight 73.9 kg (163 lb) 11/23/2024 10:47 AM EST Height 160 cm (5' 3 ) 11/23/2024 10:47 AM EST Body Mass Index 28.87 11/23/2024 10:47 AM EST Plan of Treatment Upcoming Encounters Date Type Department Care Team (Late st Contact Info) Description 12/16/2024 11:00 AM EST Office Visit Orthopedic Surgery - [place] 175 [facility] [address] [place] [address] Nicolasa Yu PA [address] [facility] [place] [address] [place] [address] Scheduled Procedures Name Priority Associated Diagnoses Date/Ti me RELEASE TRIGGER FINGER Trigger finger, unspecified finger 12/07/2024 12:32 PM EST Health Maintenance Due Date Last Done Comments Breast Cancer Screening 1965 Cervical Cancer Screening: Pap Smear 1984 Cholesterol Screening (Lipid Panel) 09/21/2022 Colorectal Cancer Screening: Colonoscopy 09/21/2022 HIV Screening 09/21/2022 Social Influencers of Health Screening 09/21/2022 RSV Immunization Patients 60+ Years Old (1 - Risk 60-74 years 1-dose series) 2023 COVID-19 Vaccine ( season) 2024 07/16/2022, 08/28/2021, 02/22/2021, Additional history exists Hypertension/CHF/CAD Annual BMP Blood Test 11/22/2024 Depression Screening 01/20/2025 01/21/2024 DTaP,Tdap,and Td Vaccines (4 - Td or Tdap) 04/04/2031 04/04/2021, 03/10/2014, 05/12/2012 Zoster Vaccines Completed 08/15/2020, 05/26/2020 Hepatitis C Screening Completed 11/07/2022 Pneumococcal Vaccine: 50+ Years Completed 05/13/2023, 11/12/2015, 05/12/2012 Pneumococcal Vaccine: Pediatrics (0 to 5 Years) [...] patient's age to complete this topic Meningococcal B Vacine Aged Out No lo nger eligible based on patient's age to complete this topic RSV Immunization Patients Under 20 months Aged Out No longer eligible based on patient's age to complete this topic Varicella Vaccines Aged Out No longer eligible based on patient's age to complete this topic Procedures Procedure Name Priority Date/Time Associated Diagnosis Comments MT ARTHROCENTESIS/ASPI RATION/INJECTION MAJOR JOINT/BURSA W/O U/S GUIDANCE Routine 11/23/2024 11:00 AM EST Rotator cuff arthropathy, left from Last 3 Months Results * MT ARTHROCENTESIS/ASPIRATION/INJECTION MAJOR JOINT/BURSA W/O U/S GUIDANCE (11/23/2024 11:00 AM EST) Narrative Leroy Lees MD - 11/23/2024 11:00 AM EST Leroy Lees MD ? 11/23/2024 11:55 AM L Inj/Asp: L subacromial bursa Indications: pain Details: 21 G needle, posterior approach Medications: 40 mg triamcinolone acetonide 40 mg/mL; 2 mL BUPivacaine HCl 0.5 %; 2 mL lidocaine 1 % Informed Consent: ??Site: ??Left Subacromial ??Laterality: ??Left ??Relevant images/test results available and reviewed: yes ?Health status cleared: ??Yes ??Procedure/treatment, purpose, treatment alternatives, risks/potential complications and benefits explained: yes ?Patient questions answered: yes ?Patient agrees, verbalizes understanding, and wants to proceed: yes ?Consent given by: ??Patient ??Informed consent discussion completed by Physician/KOBY with patient: ?? Verbal ??Pre-procedure timeout performed: yes ?? us Leroy Lees MD IN CLINIC/BEDSIDE ORDERABLES F inal Result from Last 3 Mon[place] [phone] MEDICAID - [place] Advance Directives * Full Code - Default (Latest Code Status on File) Date Activated Date Inactivated Comments 12/07/2024 12:02 PM This is order is used when code status has not been discussed with the patient, or code status is otherwise unknown/unconfirmed To update the patient's code status, place a code status order. Do not modify or discontinue any currently active code status orders. Care Teams Contract Agent Relationship Specialty Start Date End Date Ernie Merritt MD [address] [place] [phone] PCP - General Internal Medicine 05/20/21
--- OUTSIDE RECORDS SUMMARY | 2024-12-07 15:00 | XMS_ITS | Encounter Summary ---
Author Organization [employer] Address [address] [place] [address] [address] [place] [address] Care Team Providers Care Electrical Research Engineer Name Role Phone Ernie Noriega MD Primary Care Provide r Reason for Visit * Reason Onset Date Comments Med Refill 04/24/2024 Encounter Details Date Type Department Care Team ([facility] st Contact Info) Description 04/24/2024 Refill [facility] MED[facility]INE [address] [place] [address] Ernie Noriega MD [address] [place] [address] Essential hypertension Social History Tobacco Use Types [...] Description 01/12/2025 3:00 PM EDT Office Visit [facility] [address] [place] [address] Ernie Noriega MD [address] [place] [address] documented as of this encounter Visit Diagnoses Diagnosis Essential hypertension Unspecified essential hypertension documented in this encounter Additional Health Concerns Assessment Noted Time PHQ-9 Depression Total Score: 2 01/21/20 24 1:25 PM EDT documented as of this encounter Care Teams Electrical Research Engineer Relationship Specialty Start Date End Date Ernie Noriega MD [address] [place] [address] PCP - General Internal Medicine 08/25/19 documented as of this encounter
--- OUTSIDE RECORDS SUMMARY | 2024-12-07 15:00 | XMS_ITS | Encounter Summary ---
Author Organization [employer] [facility] Address [address] [place] [address] 7 [place] [address] Care Team Providers Care Child Life Assistant Name Role Phone Ernie Noriega MD Primary Care Provide r Encounter Details Date Type Department Care Team (Late st Contact Info) Description 02/18/2023 Abstract [facility] MEDICINE [address] [place] [address] [phone] Ernie Noriega MD [address] [place] [address] [phone] Social History Tobacco Use Types Packs/Day Years [...] 3:00 PM EDT Office Visit [facility] [address] [place] [address] [phone] Ernie Noriega MD [address] [place] [address] [phone] documented as of this encounter Procedures Procedure [...] documented as of this encounter Care Teams Child Life Assistant Relationship Specialty Start Date End Date Ernie Noriega MD [address] [place] [phone] PCP - General Internal Medicine 08/25/19 documented as of this encounter
--- OUTSIDE RECORDS SUMMARY | 2024-12-07 15:00 | XMS_ITS | Encounter Summary ---
Author Organization [employer] Address [address] [place] [address] 7t [place] [address] Care Team Providers Care Registered Nurses Name Role Phone Ernie Noriega MD Primary Care Provide r Reason for Visit * Reason Onset Date Comments Med Refill 06/25/2024 Encounter Details Date Type Department Care Team ([facility] st Contact Info) Description 06/25/2024 Refill [facility] MEDICINE [address] [place] [address] Ernie Noriega MD [address] [place] [phone] Chronic midline low back pain without sciatica; [...] 01/12/2025 3:00 PM EDT Office Visit [facility] [address] [place] [address] Ernie Noriega MD [address] [place] [address] documented as of this encounter Visit Diagnoses Diagnosis Chronic midline low back pain without sciatica Cervical radiculopathy Brachial neuritis or radiculitis nos documented in this encounter Additional Health Concerns Assessment Noted Time PHQ-9 Depression Total Score: 2 01/21/20 24 1:25 PM EDT documented as of this encounter Care Teams Registered Nurses Relationship Specialty Start Date End Date Ernie Noriega MD [address] [place] [address] PCP - General Internal Medicine 08/25/19 documented as of this encounter
--- OUTSIDE RECORDS SUMMARY | 2024-12-07 15:00 | XMS_ITS | Encounter Summary ---
Author Organization [employer] Address [address] [place] [address] 7t [place] [address] Care Team Providers Care Traverse Rod Assembler Name Role Phone Ernie Noriega MD Primary Care Provide r Reason for Visit * Reason Comments Med Refill Encounter Details Date Type Department Care Team ([facility] st Contact Info) Description 07/28/2024 Refill [facility] MEDICINE [address] [place], [place] [phone] Ernie Noriega MD [address] [place] [address] Primary osteoarthritis of knee, unspecified laterality Social [...] Description 01/12/2025 3:00 PM EDT Office Visit [facility] MEDICINE [address] [place] [phone] Ernie Noriega MD [address] [place] [phone] documented as of this encounter Visit Diagnoses Diagnosis Primary osteoarthritis of knee, unspecified laterality documented in this encounter Additional Health Concerns Assessment Noted Time PHQ-9 Depression Total Score: 2 01/21/20 24 1:25 PM EDT documented as of this encounter Care Teams Traverse Rod Assembler Relationship Specialty Start Date End Date Ernie Noriega MD [address] [place] [phone] PCP - General Internal Medicine 08/25/19 documented as of this encounter
--- OUTSIDE RECORDS SUMMARY | 2024-12-07 15:00 | XMS_ITS | Encounter Summary ---
Author Organization [employer] Address [address] [place] [address] 7 [place] [address] Care Team Providers Care Pole Climber Name Role Phone Ernie Noriega MD Primary Care Provide r Reason for Visit * Reason Onset Date Comments Med Refill 08/13/2024 Encounter Details Date Type Department Care Team ([facility] st Contact Info) Description 08/13/2024 Refill [facility] MEDICINE [address] [place] [address] Ernie Noriega MD [address] [place] [address] Seasonal allergies Social History Tobacco Use Types [...] Description 01/12/2025 3:00 PM EDT Office Visit [facility] MEDICINE [address] [place] [phone] Ernie Noriega MD [address] [place] [address] documented as of this encounter Visit Diagnoses Diagnosis Seasonal allergies Allergic rhinitis, cause unspecified documented in this encounter Additional Health Concerns Assessment Noted Time PHQ-9 Depression Total Score: 2 01/21/20 24 1:25 PM EDT documented as of this encounter Care Teams Pole Climber Relationship Specialty Start Date End Date Ernie Noriega MD [address] [place] [phone] PCP - General Internal Medicine 08/25/19 documented as of this encounter
--- OUTSIDE RECORDS SUMMARY | 2024-12-07 15:00 | XMS_ITS | Encounter Summary ---
Author Organization [employer] Address [address] [place] [address] 7[address] [place] [address] Care Team Providers Care Acid Patroller Name Role Phone Ernie Noriega MD Primary Care Provide r Reason for Visit * Reason Onset Date Comments Med Refill 08/12/2024 Encounter Details Date Type Department Care Team ([facility] st Contact Info) Description 08/12/2024 Refill [facility] MEDICINE [address] [place] [address] Ilsa Robison, ANP [address] [place] [address] Primary osteoarthritis of knee, unspecified laterality Social [...] 01/12/2025 3:00 PM EDT Office Visit [facility] MEDICINE [address] [place] [phone] Ernie Noriega MD [address] [place] [phone] documented as of this encounter Visit Diagnoses Diagnosis Primary osteoarthritis of knee, unspecified laterality documented in this encounter Additional Health Concerns Assessment Noted Time PHQ-9 Depression Total Score: 2 01/21/20 24 1:25 PM EDT documented as of this encounter Care Teams Acid Patroller Relationship Specialty Start Date End Date Ernie Noriega MD [address] [place] [phone] PCP - General Internal Medicine 08/25/19 documented as of this encounter
--- OUTSIDE RECORDS SUMMARY | 2024-12-07 15:01 | XMS_ITS | Encounter Summary ---
Author Organization [employer] Address [address] [place] [address] 7t [place] [address] Care Team Providers Care Clinical Services Director Name Role Phone Ernie Noriega MD Primary Care Provide r Reason for Visit * Reason Comments Med Refill Encounter Details Date Type Department Care Team ([facility] st Contact Info) Description 11/28/[address] [facility] MEDICINE [address] [place], [place] [phone] Ernie Noriega MD [address] [place], [place] [phone] Gastritis without bleeding, unspecified chronicity, unspecified gastritis type Social History Tobacco Use Types Packs/Day Years [...] Visit [facility] [address] [place] [address] Ernie Noriega MD [address] [place] [address] documented as of this encounter Visit Diagnoses Diagnosis Gastritis without bleeding, unspecified chronicity, unspecified gastritis type documented in this encounter Additional Health Concerns Assessment Noted Time PHQ-9 Depression Total Score: 2 01/21/20 24 1:25 PM EDT documented as of this encounter Care Teams Clinical Services Director Relationship Specialty Start Date End Date Ernie Noriega MD [address] [place] [address] PCP - General Internal Medicine 08/25/19 documented as of this encounter
--- OUTSIDE RECORDS SUMMARY | 2024-12-07 15:01 | XMS_ITS | Encounter Summary ---
Author Organization [employer] Address [address] [place] [address] [address]t [place] [address] Care Team Providers Care Business Liaison Manager Name Role Phone Ernie Norigea MD Primary Care Provide r Reason for Visit * Reason Comments Med Refill Encounter Details Date Type Department Care Team ([facility] st Contact Info) Description 10/16/2023 Refill [facility] [address] [place], [place] [phone] Ernie Noriega MD [address] [place] [address] Pain Social History Tobacco Use Types Packs/Day [...] 3:00 PM EDT Office Visit [facility] MEDICINE [address] [place] [address] Ernie Noriega MD [address] [place] [address] documented as of this encounter Visit Diagnoses Diagnosis Pain Generalized pain documented in this encounter Additional Health Concerns Assessment Noted Time PHQ-9 Depression Total Score: 0 12/02/19 23 2:38 PM EST documented as of this encounter Care Teams Business Liaison Manager Relationship Specialty Start Date End Date Ernie Noriega MD [address] [place] [address] PCP - General Internal Medicine 08/25/19 documented as of this encounter
--- OUTSIDE RECORDS SUMMARY | 2024-12-07 15:01 | XMS_ITS | Clinical Summary ---
Author Organization [employer] Address [address] [place] [address] 7[address] [place] [address] Care Team Providers Care Storage Battery Charger Name Role Phone Ernie Noriega MD Primary [...] per flare 12 tablet 02/24/20 23 Active Blood Pressure kitIndications:Es sential hypertension Use daily 1 kit 04/26/20 24 Active montelukast (Singulair) 10 MG tabletIndications :Mild persistent asthma without complication TAKE 1 TABLET BY MOUTH EVERY DAY 90 tablet 2 06/07/20 24 Active diclofenac (Cataflam) 50 MG tabletIndications :Ischial pain, right TAKE 1 TABLET BY MOUTH TWICE A DAY 60 tablet 3 09/20/20 24 Active Acetaminophen Extra Strength 500 [...] TIMES DAILY 48 mL 11/03/19 25 Active lidocaine (Lidoderm) 5 % patchIndications: Primary osteoarthritis of knee, unspecified laterality APPLY 1 TO 2 PATCHES TOPICALLY AND LEAVE ON UP TO 12 HOURS DAILY IF NEEDED FOR PAIN 60 patch 1 11/15/19 25 Active hydroCHLOROthiazi de (HYDRODiuril) 25 MG tabletIndications :Primary hypertension TAKE 1 TABLET BY MOUTH EVERY MORNING 90 tablet 11/18/19 25 Active omeprazole (PriLOSEC) [address] capsuleIndication s:Gastritis without bleeding, unspecified chronicity, unspecified gastritis type TOME 1 CAPSULA POR VIA ORAL TODOS LOS SUAREZ BEFORE A MEAL 90 capsule 3 11/29/19 25 Active omeprazole (PriLOSEC) [address] capsuleIndication s:Gastritis without bleeding, unspecified chronicity, unspecified gastritis type TAKE 1 CAPSULE BY MOUTH EVERY DAY BEFORE A MEAL 90 capsule 3 12/15/19 24 025 Discontinued hydroCHLOROthiazi de (HYDRODiuril) 25 MG tabletIndications :Primary hypertension TOME 1 TABLETA POR VIA ORAL TODOS LOS SUAREZ EN LA MANANA 90 tablet 08/17/20 24 025 Discontinued lidocaine (Lidoderm) 5 % patchIndications: Primary osteoarthritis of knee, unspecified laterality APPLY 1 TO 2 PATCHES TOPICALLY AND LEAVE ON UP TO 12 HOURS DAILY IF NEEDED FOR PAIN 60 patch 1 09/20/20 24 025 Discontinued Active Problems Problem Noted Date Diagnosed [...] has chronic low back pain, treated at [facility] by Dr Clint Newberry. Hx of AP fusion from L4-sacrum in 2003. She has received epidural injections initially with good results but that is no longer the case. Pt developed lumbar spinal stenosis and on 01/14/2021 underwent Posterior neural foraminotomy L2-L3 by Dr. Bailey. She was admitted to [facility] from 11/13/2022 until 11/20/2022 due to worsening low back pain with radiation to her right thigh and right leg after an experimental thoracic spinal stimulation procedure at the surgery center [facility] (She was referred there by [facility]). Procedure was aborted after pt experienced severe [...] does not want to follow-up with [facility] [place] d/t the severe pain she experienced with [...] care of Orthopaedic specialist Dr Lees at [facility]. Pt would like to hold off on procedure until her back feels better. I contacted the office of Orthopaedic surgeon who stated this was an elective procedure and was ok with delaying until pt felt ready Assessment & Plan (12/04/2022 8:31 AM EST): Pt had initially come in for a Preoperative exam. Under the care of Orthopaedic specialist Dr Lees at [facility]. Pt would like to hold off on [...] has a Medical [employer] Card recommended by [facility] treating physician. pt utilizes the liquid form. [...] has a Medical [place] Card recommended by [facility] treating physician. pt utilizes the liquid form. [facility] I had been prescribing tramadol to use [...] has a Medical [place] Card recommended by [facility] treating physician. pt utilizes the liquid form. She is no longer under the care of [facility] I had been prescribing tramadol to use [...] Dr Soto who referred her back to [facility] for back pain History of total knee [...] Under the care of Dr Almeida at [facility]. see med list for current psychiatric meds, no changes. she has been stable they have requested me to continue his medications for insomnia, Ambien and Benadryl Chronic low back pain 05/12/2012 Assessment & Plan (10/13/2024 3:42 PM EST): Pt here for a f/u Hx of chronic low back pain, treated in the past at [facility] by Dr Clint Newberry. Hx of AP fusion from L4-sacrum in 2003. She received epidural injections with good results in the past. but that was no longer the case. Pt developed lumbar spinal stenosis and on 01/14/2021 underwent Posterior neural foraminotomy L2-L3by Dr. Bailey. She was admitted to [facility] from 11/13/2022 until 11/20/2022 due to worsening low back pain with radiation to her right thigh and right leg after an experimental thoracic spinal stimulation procedure at the surgery center [facility] (She was referred there by [facility]). [...] pain, she had been receiving treatment at [facility] by Dr Clint Newberry. Hx of AP fusion from L4-sacrum in 2003. She has received epidural injections with good results in the past. but that was no longer the case. Pt developed lumbar spinal stenosis and on 01/14/2021 underwent Posterior neural foraminotomy L2-L3by Dr. Bailey. Patient is here for a follow up. She was recently admitted to [facility] from 11/13/2022 until 11/20/2022 due to worsening low back pain with radiation to her right thigh and right leg after an experimental thoracic spinal stimulation procedure at the surgery center [facility] (She was referred there by [facility]). Procedure was aborted after pt experienced severe [...] does not want to follow-up with [facility] [place] d/t the severe pain she experienced with [...] pain, she had been receiving treatment at [facility] by Dr Clint Newberry. Hx of AP fusion from L4-sacrum in 2003. She has received epidural injections with good results in the past. but that was no longer the case. Pt developed lumbar spinal stenosis and on 01/14/2021 underwent Posterior neural foraminotomy L2-L3by Dr. Bailey. She was admitted to [facility] from 11/13/2022 until 11/20/2022 due to worsening low back pain with radiation to her right thigh and right leg after an experimental thoracic spinal stimulation procedure at the surgery [facility] (She was referred there by [facility]). Procedure was aborted after pt experienced severe [...] does not want to follow-up with [facility] [place] d/t the severe pain she experienced with [...] pain, she had been receiving treatment at [facility] by Dr Clint Newberry. Hx of AP fusion from L4-sacrum in 2003. She has received epidural injections with good results in the past. but that was no longer the case. Pt developed lumbar spinal stenosis and on 01/14/2021 underwent Posterior neural foraminotomy L2-L3by Dr. Bailey. Patient is here for a follow up. She was recently admitted to [facility] from 11/13/2022 until 11/20/2022 due to worsening low back pain with radiation to her right thigh and right leg after an experimental thoracic spinal stimulation procedure at the surgery [facility] (She was referred there by [facility]). Procedure was aborted after pt experienced severe [...] does not want to follow-up with [facility] [place] d/t the severe pain she experienced with [...] Encounters Date Type Department Care Team Description 11/28/2024 Refill [facility] MEDICINE [address] [place] [address] Ernie Noriega MD Gastritis without bleeding, unspecified chronicity, unspecified gastritis type 11/18/2024 Refill [facility] MOBILE VACCINE CLINIC [address] [place] [address] Ernie Noriega MD Primary hypertension 11/17/2024 Refill [facility] MEDICINE [address] [place] [address] Ernie Noriega MD Seasonal allergies 11/14/2024 Refill [facility] [address] [facility] [place] [address] Ernie Noriega MD Primary osteoarthritis of knee, unspecified laterality 11/07/2024 Refill [facility] [address] [facility] [place] [address] Ernie Noriega MD Chronic midline low back pain without sciatica 11/01/2024 Refill [facility] [address] [facility] [place] [address] Sugar Mitchell MD Seasonal allergies 11/01/2024 Refill [facility] [address] [facility] [place] [address] Sugar Mitchell MD Seasonal allergies 10/25/2024 1:20 PM EST Office Visit [facility] [address] [facility] [place] [address] Ofelia Melgar MD UTI symptoms 10/25/2024 Refill [facility] [address] [facility] [place] [address] Ernie Noriega MD Chronic midline low back pain without sciatica 10/25/2024 Telephone [facility] [address] [facility] [place] [address] Ernie Noriega MD Med Refill 10/25/2024 Travel 10/17/2024 Refill [facility] [address] [facility] [place] [address] Ernie Noriega MD Primary osteoarthritis of knee, unspecified laterality 10/16/2024 Refill [facility] [address] [facility] [place] [address] Sugar Mitchell MD 10/14/2024 Telephone [facility] [address] [facility] [place] [address] Ernie Noriega MD Med Refill 10/13/2024 3:00 PM EST Office Visit [facility] [address] [facility] [place] [address] Ernie Noriega MD Essential hypertension (Primary Dx); Mild persistent asthma without complication; Chronic midline low back pain without sciatica 10/13/2024 Refill [facility] [address] [place], [place] [address] Ernie Noriega MD Chronic midline low back pain without sciatica 10/13/2024 Travel 10/12/2024 Travel 10/12/2024 Refill [facility] [address] [place], [place] [address] Ernie Noriega MD Primary osteoarthritis of knee, unspecified laterality 10/10/2024 Refill [facility] [address] [place], [place] [address] Ernie Noriega MD Pain 10/06/2024 Travel 10/03/2024 Telephone [facility] [address] [place], [place] [address] Ernie Noriega MD 10/03/2024 Patient Outreach [facility] [address] [place], [place] [address] Ernie Noriega MD Pre-visit Planning (SDOH screening was completed on 01/21/2024) 09/28/2024 Telephone [facility] [address] [place] [address] Ernie Noriega MD Med Refill 09/28/2024 Refill [facility] [address] [place], [place] [address] Ernie Noriega MD Primary osteoarthritis of knee, unspecified laterality 09/28/2024 Refill [facility] [address] [place], [place] [address] Ernie Noriega MD Chronic midline low back pain without sciatica; Cervical radiculopathy 09/27/2024 Refill [facility] [address] [place], [place] [address] Ernie Noriega MD Chronic midline low back pain without sciatica; Cervical radiculopathy 09/18/2024 Refill [facility] [address] [place], [place] [address] Ilsa Robison ANP Primary osteoarthritis of knee, unspecified laterality 09/18/2024 Refill [facility] [address] [facility] [place] [address] Ernie Noriega MD Ischial pain, right; Primary osteoarthritis of knee, unspecified laterality 09/13/2024 Telephone [facility] MED[facility] [address] [facility] [place] [address] Filipe Perez [place] Donut cushion L&C from Last 3 Months Immunizations Name Administration [...] your housing situation today? I have robin dseiree 01/21/[address] you li [...] Description 01/12/2025 3:00 PM EDT Office Visit [facility] MEDICINE [address] [place] [address] Ernie Noriega MD [address] [place] [address] Health Maintenance Due Date Last Done Comments CT Colonography 1965 FIT DNA/Cologuard 1965 FIT 1965 FOBT 1965 HIV Screening 1965 Sigmoidoscopy 1965 Pap Smear 1984 RSV Patients and Patients Aged 60 years or older (1 - Risk 60-74 years 1-dose series) 2023 COVID-19 Vaccine ( season) 2024 07/16/2022, 08/28/2021, 02/22/2021, Additional history exists Depression Screening 01/20/2025 01/21/2024, 01/21/20 24 SDOH Screening 01/20/2025 01/21/2024 Alcohol/Substance Use Screening [...] AM EST UTI symptoms XR LUMBAR SPINE COMPLETE 4+ VIEWS Routine 09/23/2024 2:10 PM EST HM COLONOSCOPY Routine 03/18/2024 BI MAMMOGRAM [...] (10/25/2024 12:00 AM EST) Color Urine Yellow [facility] Appearance Urine Clear [facility] PH 5.5 5.0 - 9.0 [facility] Glucose Urine UA Negative Negative mg/dL [facility] Urine Blood Negative Negative [facility] Specific Enloe - Urine 1.015 1.005 - 1.025 [facility] Urine Protein Negative Neg-Trace mg/dL [facility] Urine Ketones Negative Negative mg/dL [facility] Nitrite Urine Negative Negative [facility] Leukocyte Esterase Urine Negative Negative [facility] RBC Urine 0-2 0 - 2 /HPF [facility] Urine WBC 0-5 0 - 5 /HPF [facility] Urine Squamous Epithelial Cell 0-2 0 - 2 /HPF [facility] Urine Bacteria None Seen None Seen [facility] Hyaline Casts, Urine 0-2 0 - 2 /LPF [facility] Urine 10/25/2024 10/25/2024 Narrative [facility] - 10/25/2024 5:35 PM EST Urine, Clean Catch Ofelia Melgar MD LAB URINE ORDERABLES Final Result [facility] [address] [place] [address] [phone] * XR Lumbar Spine Complete 4+ Views (09/23/2024 2:10 PM EST) Anatomical Region Laterality Modality Spine, L-spine Radiographic Anabella ging 09/23/2024 2:10 PM EST Narrative 11/10/2024 9:14 AM EST ? [facility] ? [address] ?[place] [address] ?XRay Report ? Signed ? Patient: Julien,Avon ?MR#: [id number] ?? 12 ? : 1965 ?Acct:[id number] ? Age/Sex: 59 / F ?ADM Date: 09/23/24 ? Loc: HO.HOSX ? Attending Dr: Tr WILDER ? Ordering Physician: Tr Soliman ?? Date of Service: 09/23/24 ?? Procedure(s): XR lumbar spine 4V min ?? Accession Number(s): [id number] ? cc: Tr Soliman; Ernie Merritt MD ? EXAMINATION: ?? XR LUMBAR SPINE ? CLINICAL INFORMATION: ?? Dorsalgia, unspecified M54.9. ? COMPARISON: ?? XR Lumbosacral spine 08/26/2024. ? TECHNIQUE: ?? 4 views of lumbar spine. Standing, AP and lateral with ?? flexion-extension views. ? FINDINGS: ?? Intervertebral disc hardware at L4-L5 and L5-S1 as well as posterior ?? stabilization hardware at L3-L4, unchanged. No evidence of hardware ?? complication. Unchanged vertebral body alignment with straightening of ?? normal lumbar lordosis as well as grade 1 retrolisthesis of T12 on L1. ?? No acute fracture or subluxation. No loss of vertebral body height. ?? Prominent loss of intervertebral disc height at L1-L3 with degenerative ?? endplate changes. More moderate degenerative disc disease within the ?? lower thoracic spine. No concerning lytic or blastic osseous lesion. No ?? significant subluxation with flexion or extension. Nwex-bq-jgftilsj ?? stool burden. ? XR/XR lumbar spine 4V min ?? IMPRESSION: ?? 1. Postsurgical changes at L3-S1 without evidence of hardware ?? complication. ? 2. Grade 1 retrolisthesis of T12 on L1 and straightening of the normal ?? lumbar lordosis, unchanged. No significant subluxation with flexion or ?? extension. ? 3. Multilevel degenerative disc disease, most prominent at L1-L3. ? 4. Daee-td-sschfecz stool burden. No significant subluxation with ?? flexion or extension. ? Electronically signed by: ??Luc Lieberman MD ??11/10/2024 09:11 AM EST ?? RP ? Dictated By: ?Luc Lieberman MD ? Signed By: ?<Electronically signed by Luc Lieberman MD in OV> ?11/10/24 0911 ? DD/DT: 09/23/ 1410 ? TD/TT: 09/23/24 1415 ? Registered Medical Transcriptionist: ? Procedure Note Donotuseinterpreter, Image - 11/10/2024 [facility] [address] [place] [address] Drive [address] [place] [address] XRay Report Signed Patient: Miguelina JulienMR#: [id number] 12 : 1965Acct:[id number] Age/Sex: 59 / FADM Date: 09/23/24 Loc: [facility] Attending Dr: Tr WILDER Ordering Physician: Tr Soliman Date of Service: 09/23/24 Procedure(s): XR lumbar spine 4V min Accession Number(s): [id number] cc: Tr Soliman; Ernie Merritt MD EXAMINATION: XR LUMBAR SPINE CLINICAL INFORMATION: Dorsalgia, unspecified M54.9. COMPARISON: XR Lumbosacral spine 08/26/2024. TECHNIQUE: 4 views of lumbar spine. Standing, AP and lateral with flexion-extension views. FINDINGS: Intervertebral disc hardware at L4-L5 and L5-S1 as well as posterior stabilization hardware at L3-L4, unchanged. No evidence of hardware complication. Unchanged vertebral body alignment with straightening of normal lumbar lordosis as well as grade 1 retrolisthesis of T12 on L1. No acute fracture or subluxation. No loss of vertebral body height. Prominent loss of intervertebral disc height at L1-L3 with degenerative endplate changes. More moderate degenerative disc disease within the lower thoracic spine. No concerning lytic or blastic osseous lesion. No significant subluxation with flexion or extension. Lljh-zf-slfprrqu stool burden. XR/XR lumbar spine 4V min IMPRESSION: 1. Postsurgical changes at L3-S1 without evidence of hardware complication. 2. Grade 1 retrolisthesis of T12 on L1 and straightening of the normal lumbar lordosis, unchanged. No significant subluxation with flexion or extension. 3. Multilevel degenerative disc disease, most prominent at L1-L3. 4. Ijxd-ld-pvuqghua stool burden. No significant subluxation with flexion or extension. Electronically signed by: Luc Lieberman MD 11/10/2024 09:11 AM EST Dictated By: Luc Lieberman MD Signed By: <Electronically signed by Luc Lieberman MD in OV> 11/10/24 0911 DD/ 1410 TD/TT: 09/23/24 1415 Registered Medical Transcriptionist: [facility] External Provider IMG XR PROCEDURES Edited Result - Final * (ABNORMAL) Hm Colonoscopy (03/18/2024) Colonoscopy Abnormal( A) Normal Comment:Tubular Adenoma 03/18/2024 Historical Provider HEALTH MAINTENANCE Final Result * BI Mammogram Screening Tomosynthesis Bilateral (01/01/2024 8:45 AM EDT) Anatomical Region Laterality Modality Breast Bilateral Mammography 01/01/2024 8:45 AM EDT Narrative 01/19/2024 10:06 AM EDT ? [facility] [place] ? [address] ?[place] [address] ? Mammography Report ? Signed ? Patient: Juan Pablo Taylor,Avon ?MR#: ?? [id number] ? : 1965 ?Acct:[id number] ? Age/Sex: 58 / F ?ADM Date: 03/22/24 ? Loc: HO.MAMMO ? Attending Dr: Ernie Merritt MD ? Ordering Physician: Ernie Merritt MD ?Resu ?? lts: 2Benign Findings ? Date of Service: 01/01/24 ?Follow Up: 1 Year From Orig ?? inal Mammogram ? Procedure(s): MM tomosynthesis screening BI ?? Accession Number(s): [id number] ? cc: Ernie Merritt MD ? EXAMINATION: [...] 1003 ? DD/ 0845 ? TD/TT: ? Registered Medical Transcriptionist: ? Procedure Note Donotuseinterpreter, Image - 01/19/2024 [facility] [address] [place] [address] Mammography Report Signed Patient: Miguelina Watson#: [id number] : 1965Acct:[id number] Age/Sex: 58 / FADM Date: 01/01/24 Loc: HO.MAMMO Attending Dr: Ernie Merritt MD Ordering Physician: Ernie Merritt MDResu lts: 2Benign Findings Date of Service: 01/01/24Follow Up: 1 Year From Orig inal Mammogram Procedure(s): MM tomosynthesis screening BI Accession Number(s): [id number] cc: Ernie Merritt MD EXAMINATION: MM SCREENING [...] in OV> 01/19/24 1003 DD/ 0845 TD/TT: Registered Medical Transcriptionist: Ernie Ro MD IMG BI PROCEDURES Fin al Result * (ABNORMAL) Lipid Panel with Reflex to Direct LDL (11/07/2022 8:24 AM EST) Cholesterol, Total 235(H) <200 mg/dL [facility] [place] [facility] HDL Cholesterol 64 > OR = 50 mg/dL [facility] [place] [facility] Triglycerides 252(H) <150 mg/dL [facility] Comment: If a non-fasting specimen was collected, consider repeat triglyceride testing on a fasting specimen if clinically indicated. Bebo et al. J. of Clin. Lipidol. 2015;9:129-169. LDL Cholesterol 132(H) mg/dL (calc) [facility] Comment: Reference range: <100 Desirable range <100 mg/dL for primary prevention; ?? <70 mg/dL for patients with CHD or diabetic patients with > or = 2 CHD risk factors. LDL-C is now calculated using the Jordan-Dawn calculation, which is a validated novel method providing better accuracy than the Friedewald equation in the estimation of LDL-C. Jordan SS et al. BHARAT. 2013;310(19): 0675-4759 (http://education.[employer]/faq/JXV678) Chol/HDLC Ratio 3.7 <5.0 (calc) [facility] Non-HDL Cholesterol 171(H) <130 mg/dL (calc) [facility] Comment: For patients with diabetes plus 1 major ASCVD risk factor, treating to a non-HDL-C goal of <100 mg/dL (LDL-C of <70 mg/dL) is considered a therapeutic option. 11/07/2022 8:24 AM EST 11/07/2022 8:25 AM EST Narrative [facility] - 11/08/2022 12:51 AM EST FASTING:YES FASTING: YES Ernie Ro MD LAB BLOOD ORDERABLES Final Result Performing Organization Address City/[facility]/ZIP Co de Phone Number [address], [place] [address] [facility] [address] [place] [address], (Nl2) [place] [address] * Hepatitis C Antibody with Reflex to HCV, RNA, Quantitative, Real-Time PCR (11/07/2022 8:24 AM EST) Pathologist [facility] Hepatitis C Antibody NON-REACT TAMARA NON-REACT TAMARA [facility] [place] [facility] Index 0.12 <1.00 [facility] [place] [facility] Comment: HCV antibody was non-reactive. There is no laboratory evidence of HCV infection. In most cases, no further action is required. However, if recent HCV exposure is suspected, a test for HCV RNA (test code 96213) is suggested. For additional information please refer to http://[employer]/faq/JBH96r2 (This link is being provided for informational/ educational purposes only.) Blood Venous blood specimen / Unknown 11/07/2022 8:24 AM EST 11/07/2022 8:25 AM EST Narrative [facility] - 11/08/2022 12:51 AM EST FASTING:YES FASTING: YES Ernie Ro MD LAB BLOOD ORDERABLES Final Result Performing Organization Address City/[facility]/ZIP Co de Phone Number [address], [place] [address] [facility] [place] [facility] [address] [place] [address], (Nl2) [place] [address] * HPV E6/E7 RFLX SERGIO 16 18/45 (12/19/2020 3:40 PM EST) Pathologist [facility] HPV 16 RNA TNP [facility] HPV 18/45 RNA TNP [facility] HPV E6 E7 ADD TNP [facility] HPV mRNA E6/E7 rflx Not Detected Not Detected [facility] Comment: Methodology: End Finder Twisting Department-Mediated Amplification This assay detects E6/E7 viral messenger RNA (mRNA) from 14 high-risk HPV types (16,18,31,33,35,39,45,51,52,56,58,59,66,68). The analytical performance characteristics of this assay have been determined by [facility]. The modifications have not been cleared or approved by the FDA. This assay has been validated pursuant to the CLIA regulations and is used for clinical purposes. For additional information, please refer to http://education.[employer]/faq/DMC851t4 (This link if provided for information/ educational purposes only.) THIS TEST WAS PERFORMED AT: [facility] [address] [place] [address] [address] [place], [place] ??[phone] FLACA ANTONY MD 12/19/2020 3:40 PM EST us Historical Provider HISTORICAL/NON ORDERABLE LABS Final Result Performing Organization Address City/State/[facility] Co ct Phone Number [facility] [address] from Last 3 Months or Most Recently Relevant to Health Maintenance Insurance [employer] Care Teams Storage Battery Charger Relationship Specialty Start Date End Date Ernie Noriega MD [address] [place] [address] [phone] PCP - General Internal Medicine 08/25/19
--- OUTSIDE RECORDS SUMMARY | 2024-12-07 15:01 | XMS_ITS | Encounter Summary ---
Author Organization [facility] Address [address] [place] [address] 7t [place] [address] Care Team Providers Care Active Directory Engineer Name Role Phone Ernie Noriega MD Primary Care Provide r Encounter Details Date Type Department Care Team (Latest Contact Info) Description 03/07/2021 Abstract [facility] CONVERSIONS Dental, Provider, DDS Social History Tobacco [...] Description 01/12/2025 3:00 PM EDT Office Visit [facility] MEDICINE [address] [place] [address] Ernie Noriega MD [address] [place] [address] documented as of this encounter Visit Diagnoses Not on filedocumented in this encounter Care Teams Active Directory Engineer Relationship Specialty Start Date End Date Ernie Noriega MD [address] [place] [address] PCP - General Internal Medicine 08/25/19 documented as of this encounter
--- OUTSIDE RECORDS SUMMARY | 2024-12-07 15:01 | XMS_ITS | Encounter Summary ---
Author Organization [employer] Address [address] [place] [address] 7t [place] [address] Care Team Providers Care Typewriter Mechanic Name Role Phone Ernie Noriega MD Primary Care Provide r Reason for Visit * Reason Onset Date Comments Med Refill 11/04/2023 Encounter Details Date Type Department Care Team ([facility] st Contact Info) Description 11/04/2023 Refill [facility] [address] [place] [address] Ernie Noriega MD [address] [place] [address] Pain Social History Tobacco Use Types Packs/Day [...] Description 01/12/2025 3:00 PM EDT Office Visit [facility] MEDICINE [address] [place] [address] Ernie Noriega MD [address] [place] [address] documented as of this encounter Visit Diagnoses Diagnosis Pain Generalized pain documented in this encounter Additional Health Concerns Assessment Noted Time PHQ-9 Depression Total Score: 0 12/02/19 23 2:38 PM EST documented as of this encounter Care Teams Typewriter Mechanic Relationship Specialty Start Date End Date Ernie Noriega MD [address] [place] [phone] PCP - General Internal Medicine 08/25/19 documented as of this encounter
--- OUTSIDE RECORDS SUMMARY | 2024-12-07 15:01 | XMS_ITS | Encounter Summary ---
Author Organization [employer] Address [address] [place] [address] 7t [place] [address] Care Team Providers Care Key Attendant Name Role Phone Ernie Noriega MD Primary Care Provide r Reason for Visit * Reason Comments Med Refill Encounter Details Date Type Department Care Team ([facility] st Contact Info) Description 11/14/2024 Refill [facility] 230 [place], [place] [phone] Ernie Noriega MD 230 [place], [place] [phone] Primary osteoarthritis of knee, unspecified laterality Social [...] EDT Office Visit [facility] [address] [place] [address] Ernie Noriega MD [address] [place] [address] documented as of this encounter Visit Diagnoses Diagnosis Primary osteoarthritis of knee, unspecified laterality documented in this encounter Additional Health Concerns Assessment Noted Time PHQ-9 Depression Total Score: 2 01/21/20 24 1:25 PM EDT documented as of this encounter Care Teams Key Attendant Relationship Specialty Start Date End Date Ernie Noriega MD [address] [place] [address] PCP - General Internal Medicine 08/25/19 documented as of this encounter
--- OUTSIDE RECORDS SUMMARY | 2024-12-07 15:01 | XMS_ITS | Encounter Summary ---
Author Organization [employer] Address [address] [place] [address] 7 [place] [address] Care Team Providers Care Dough Panner Name Role Phone Ernie Noriega MD Primary Care Provide r Reason for Visit * Reason Onset Date Comments Med Refill 11/17/2024 Encounter Details Date Type Department Care Team ([facility] st Contact Info) Description 11/17/[address] [facility] MEDICINE [address] [place] [address] Ernie Noriega MD [address] [place] [address] Seasonal allergies Social History Tobacco Use Types [...] Description 01/12/2025 3:00 PM EDT Office Visit [facility] MEDICINE [address] [place] [address] Ernie Noriega MD [address] [place] [address] documented as of this encounter Visit Diagnoses Diagnosis Seasonal allergies Allergic rhinitis, cause unspecified documented in this encounter Additional Health Concerns Assessment Noted Time PHQ-9 Depression Total Score: 2 01/21/20 24 1:25 PM EDT documented as of this encounter Care Teams Dough Panner Relationship Specialty Start Date End Date Ernie Noriega MD [address] [place] [phone] PCP - General Internal Medicine 08/25/19 documented as of this encounter
--- OUTSIDE RECORDS SUMMARY | 2024-12-07 15:01 | XMS_ITS | Encounter Summary ---
Author Organization [employer] Address [address] [place] [address] 7t [place] [address] Care Team Providers Care Automatic Dispenser Mechanic Name Role Phone Ernie Noriega MD Primary Care Provide r Reason for Visit * Reason Comments Med Refill Encounter Details Date Type Department Care Team ([facility] st Contact Info) Description 08/26/2023 Refill [facility] [address] [place] [address] Perlita Woody MD [address] [place] [address] Seasonal allergies Social History Tobacco Use Types [...] Description 01/12/2025 3:00 PM EDT Office Visit [facility] MEDICINE [address] [place] [address] Ernie Noriega MD [address] [place] [address] documented as of this encounter Visit Diagnoses Diagnosis Seasonal allergies Allergic rhinitis, cause unspecified documented in this encounter Additional Health Concerns Assessment Noted Time PHQ-9 Depression Total Score: 0 12/02/19 23 2:38 PM EST documented as of this encounter Care Teams Automatic Dispenser Mechanic Relationship Specialty Start Date End Date Ernie Noriega MD [address] [place] [address] PCP - General Internal Medicine 08/25/19 documented as of this encounter
--- OUTSIDE RECORDS SUMMARY | 2024-12-07 15:01 | XMS_ITS | Encounter Summary ---
Author Organization [employer] Address [address] [place] [address] 7t [place] [address] Care Team Providers Care Alumni Relations Coordinator Name Role Phone Ernie Noriega MD Primary Care Provide r Reason for Visit * Reason Onset Date Comments Med Refill 08/17/2023 Encounter Details Date Type Department Care Team ([facility] st Contact Info) Description 08/17/2023 Telephone [facility] MEDICINE 230 [place], [place] [phone] Ernie Noriega MD 230 [place], [place] [phone] Med Refill Social History Tobacco Use Types [...] (Ultram) 50 MG tablet Please sent to [facility]/pharmacy #[id number] [place], [place] - [address] [place] [address] documented in this encounter Plan of Treatment Upcoming Encounters Date Type Department Care Team (Late st Contact Info) Description 01/12/2025 3:00 PM EDT Office Visit [facility] MEDICINE [address] [place] [address] Ernie Noriega MD [address] [place] [address] documented as of this encounter Visit Diagnoses Not on filedocumented in this encounter Additional Health Concerns Assessment Noted Time PHQ-9 Depression Total Score: 0 12/02/19 23 2:38 PM EST documented as of this encounter Care Teams Alumni Relations Coordinator Relationship Specialty Start Date End Date Ernie Noriega MD [address] [place] [address] PCP - General Internal Medicine 08/25/19 documented as of this encounter
--- OUTSIDE RECORDS SUMMARY | 2024-12-07 15:01 | XMS_ITS | Encounter Summary ---
Author Organization [employer] Address [address] [place] [address] 7t [place] [address] Care Team Providers Care Manager Market Name Role Phone Ernie Noriega MD Primary Care Provide r Reason for Visit * Reason Onset Date Comments Med Refill 11/04/2023 Encounter Details Date Type Department Care Team ([facility] st Contact Info) Description 11/04/2023 Refill [facility] MEDICINE [address] [place] [address] Ernie Noriega MD 230 [place] [address] Chronic midline low back pain without sciatica; [...] Description 01/12/2025 3:00 PM EDT Office Visit [facility] MEDICINE [address] [place] [address] Ernie Noriega MD [address] [place] [address] documented as of this encounter Visit Diagnoses Diagnosis Chronic midline low back pain without sciatica Cervical radiculopathy Brachial neuritis or radiculitis nos Seasonal allergies Allergic rhinitis, cause unspecified documented in this encounter Additional Health Concerns Assessment Noted Time PHQ-9 Depression Total Score: 0 12/02/19 23 2:38 PM EST documented as of this encounter Care Teams Manager Market Relationship Specialty Start Date End Date Ernie Noriega MD [address] [place] [address] PCP - General Internal Medicine 08/25/19 documented as of this encounter
--- OUTSIDE RECORDS SUMMARY | 2024-12-07 15:01 | XMS_ITS | Encounter Summary ---
Author Organization [facility] Address [address] [place] [address] 7t [place] [address] Care Team Providers Care Passementerie Worker Name Role Phone Ernie Noriega MD Primary Care Provide r Encounter Details Date Type Department Care Team (Latest Contact Info) Description 06/19/2022 Abstract [facility] CONVERSIONS Dental, Provider, DDS Social History [...] Description 01/12/2025 3:00 PM EDT Office Visit [facility] MEDICINE [address] [place] [address] Ernie Noriega MD [address] [place] [address] documented as of this encounter Visit Diagnoses Not on filedocumented in this encounter Care Teams Passementerie Worker Relationship Specialty Start Date End Date Ernie Noriega MD [address] [place] [phone] PCP - General Internal Medicine 08/25/19 documented as of this encounter
--- OUTSIDE RECORDS SUMMARY | 2024-12-07 15:01 | XMS_ITS | Encounter Summary ---
Author Organization [employer] Address [address] [place] [address] 7 [place] [address] Care Team Providers Care Prosthetic Lab Technician Name Role Phone Ernie Noriega MD Primary Care Provide r Reason for Visit * Reason Onset Date Comments Med Refill 11/03/2023 Encounter Details Date Type Department Care Team ([facility] st Contact Info) Description 11/03/2023 Refill [facility] 230 [place] [address] Ernie Noriega MD 230 [place] [address] Seasonal allergies Social History Tobacco Use Types [...] Description 01/12/2025 3:00 PM EDT Office Visit [facility] MEDICINE [address] [place] [address] Ernie Noriega MD 230 [place] [address] documented as of this encounter Visit Diagnoses Diagnosis Seasonal allergies Allergic rhinitis, cause unspecified documented in this encounter Additional Health Concerns Assessment Noted Time PHQ-9 Depression Total Score: 0 12/02/19 23 2:38 PM EST documented as of this encounter Care Teams Prosthetic Lab Technician Relationship Specialty Start Date End Date Ernie Noriega MD [address] [place] [address] PCP - General Internal Medicine 08/25/19 documented as of this encounter
--- OUTSIDE RECORDS SUMMARY | 2024-12-07 15:01 | XMS_ITS | Encounter Summary ---
Author Organization [employer] Address [address] [facility] 7t [place] [address] Care Team Providers Care Communications Administrator Name Role Phone Ernie Noriega MD Primary Care Provide r Reason for Visit * Reason Comments Med Refill Encounter Details Date Type Department Care Team ([facility] st Contact Info) Description 11/18/2024 Refill [facility] [address] [place] [address] Ernie Noriega MD [address] [place] [address] Primary hypertension Social History Tobacco Use Types [...] Description 01/12/2025 3:00 PM EDT Office Visit [facility] MEDICINE [address] [place] [address] Ernie Noriega MD [address] [place] [address] documented as of this encounter Visit Diagnoses Diagnosis Primary hypertension Unspecified essential hypertension documented in this encounter Additional Health Concerns Assessment Noted Time PHQ-9 Depression Total Score: 2 01/21/20 24 1:25 PM EDT documented as of this encounter Care Teams Communications Administrator Relationship Specialty Start Date End Date Ernie Noriega MD [address] [place] [address] PCP - General Internal Medicine 08/25/19 documented as of this encounter
--- OUTSIDE RECORDS SUMMARY | 2024-12-07 15:01 | XMS_ITS | Encounter Summary ---
Author Organization [employer] Address [address] [place] [address] 7t [place] [address] Care Team Providers Care Order Takers Supervisor Name Role Phone Ernie Noriega MD Primary Care Provide r Reason for Visit * Reason Comments Med Refill Encounter Details Date Type Department Care Team ([facility] st Contact Info) Description 11/20/2023 Refill [facility] CLIN[facility] [address] [place], [place] [phone] Ernie Noriega MD [address] [place] [address] Pain Social History Tobacco Use Types Packs/Day [...] 3:00 PM EDT Office Visit [facility] MEDICINE [address] [place] [address] Ernie Noriega MD [address] [place] [address] documented as of this encounter Visit Diagnoses Diagnosis Pain Generalized pain documented in this encounter Additional Health Concerns Assessment Noted Time PHQ-9 Depression Total Score: 0 12/02/19 23 2:38 PM EST documented as of this encounter Care Teams Order Takers Supervisor Relationship Specialty Start Date End Date Ernie Noriega MD [address] [place] [address] PCP - General Internal Medicine 08/25/19 documented as of this encounter
--- OUTSIDE RECORDS SUMMARY | 2024-12-07 15:01 | XMS_ITS | Encounter Summary ---
Author Organization [employer] Address [address] [place] [address] 7t [place] [address] Care Team Providers Care Cutter Machine Name Role Phone Ernie Noriega MD Primary Care Provide r Reason for Visit * Reason Comments Med Refill Encounter Details Date Type Department Care Team ([facility] st Contact Info) Description 08/28/2023 Refill [facility] CL[facility] [address] [place] [address] Perlita Woody MD [address] [place] [address] Primary hypertension Social History Tobacco Use Types [...] Description 01/12/2025 3:00 PM EDT Office Visit [facility] MEDICINE [address] [place] [address] Ernie Noriega MD [address] [place] [address] documented as of this encounter Visit Diagnoses Diagnosis Primary hypertension Unspecified essential hypertension documented in this encounter Additional Health Concerns Assessment Noted Time PHQ-9 Depression Total Score: 0 12/02/19 23 2:38 PM EST documented as of this encounter Care Teams Cutter Machine Relationship Specialty Start Date End Date Ernie Noriega MD [address] [place] [address] PCP - General Internal Medicine 08/25/19 documented as of this encounter
--- OUTSIDE RECORDS SUMMARY | 2024-12-07 15:02 | XMS_ITS | Encounter Summary ---
Author Organization [employer] Address [address] [place] [address] 7 [place] [address] Care Team Providers Care Denitrator Name Role Phone Ernie Noriega MD Primary Care Provide r Reason for Visit * Reason Onset Date Comments Med Refill 10/12/2024 Encounter Details Date Type Department Care Team ([facility] st Contact Info) Description 10/12/2024 Refill [facility] MEDICINE 230 [place] [address] Ernie Noriega MD [address] [place] [address] Primary osteoarthritis of knee, unspecified laterality Social [...] 01/12/2025 3:00 PM EDT Office Visit [facility] MEDICINE [address] [place] [address] Ernie Noriega MD [address] [place] [address] documented as of this encounter Visit Diagnoses Diagnosis Primary osteoarthritis of knee, unspecified laterality documented in this encounter Additional Health Concerns Assessment Noted Time PHQ-9 Depression Total Score: 2 01/21/20 24 1:25 PM EDT documented as of this encounter Care Teams Denitrator Relationship Specialty Start Date End Date Ernie Noriega MD [address] [place] [address] PCP - General Internal Medicine 08/25/19 documented as of this encounter
--- OUTSIDE RECORDS SUMMARY | 2024-12-07 15:02 | XMS_ITS | Encounter Summary ---
Author Organization [employer] Address [address] [place] [address] 7t [place] [address] Care Team Providers Care Core Drill Operator Helper Name Role Phone Ernie Noriega MD Primary Care Provide r Reason for Visit * Reason Onset Date Comments Med Refill 09/28/2024 Encounter Details Date Type Department Care Team ([facility] st Contact Info) Description 09/28/2024 Refill [facility] MEDICINE [address] [place] [address] Ernie Noriega MD [address] [place] [address] Chronic midline low back pain without sciatica; [...] EDT Office Visit [facility] MEDICINE [address] [place] [address] Ernie Noriega MD [address] [place] [address] documented as of this encounter Visit Diagnoses Diagnosis Chronic midline low back pain without sciatica Cervical radiculopathy Brachial neuritis or radiculitis nos documented in this encounter Additional Health Concerns Assessment Noted Time PHQ-9 Depression Total Score: 2 01/21/20 24 1:25 PM EDT documented as of this encounter Care Teams Core Drill Operator Helper Relationship Specialty Start Date End Date Ernie Noriega MD [address] [place] [address] PCP - General Internal Medicine 08/25/19 documented as of this encounter
--- OUTSIDE RECORDS SUMMARY | 2024-12-07 15:02 | XMS_ITS | Encounter Summary ---
Author Organization [employer] Address [address] [place] [address] 7t [place] [address] Care Team Providers Care Traveling Representative Name Role Phone Ernie Noriega MD Primary Care Provide r Reason for Visit * Reason Comments Med Refill Encounter Details Date Type Department Care Team ([facility] st Contact Info) Description 08/10/2023 Refill [facility] 230 [place] [address] Perlita Woody MD [address] [place] [address] Seasonal allergies; Primary hypertension Social History Tobacco [...] Description 01/12/2025 3:00 PM EDT Office Visit [facility] MEDICINE 230 [place] [address] rEnie Noriega MD [address] [place] [address] documented as of this encounter Visit Diagnoses Diagnosis Seasonal allergies Allergic rhinitis, cause unspecified Primary hypertension Unspecified essential hypertension documented in this encounter Additional Health Concerns Assessment Noted Time PHQ-9 Depression Total Score: 0 12/02/19 23 2:38 PM EST documented as of this encounter Care Teams Traveling Representative Relationship Specialty Start Date End Date Ernie Noriega MD [address] [place] [address] PCP - General Internal Medicine 08/25/19 documented as of this encounter
--- OUTSIDE RECORDS SUMMARY | 2024-12-07 15:02 | XMS_ITS ---
Author Organization [facility] Address [address] [place] [address] Care Team Providers Care Health Care Assistant Name Role Phone Milton Ro MD, Ernie Primary Care Provide r Unavailable Rodrick Millan Unavailable [phone] REASON FOR VISIT screening PROBLEMS Problem Type ICD Code Onset Dates Problem Status W/U Status Risk SNOMED Code Notes Problem Diverticulosis of large intestine without perforation or abscess without bleeding (K57.30) Active confirmed Diverticul ar disease of colon ([id number]) Encounters Encounter Location Date Provider Diagnosis [facility] Outpatient [address] [place] [id number] 03/18/2024 Rodrick Millan Encounter for scre ening [...]
--- OUTSIDE RECORDS SUMMARY | 2024-12-07 15:02 | XMS_ITS | Encounter Summary ---
Author Organization [employer] Address [address] [place] [address] 7t [place] [address] Care Team Providers Care Senior Project Manager Name Role Phone Ernie Noriega MD Primary Care Provide r Reason for Visit * Reason Onset Date Comments Med Refill 09/18/2023 Encounter Details Date Type Department Care Team ([facility] st Contact Info) Description 09/18/2023 Telephone [facility] MEDICINE [address] [place] [address] Ernie Noriega MD 230 [place], [place] [phone] Med Refill Social History Tobacco Use Types [...] (Ultram) 50 MG tablet Please sent to [facility]/pharmacy #[id number] [place], [place] - [address] [place] [address] documented in this encounter Plan of Treatment Upcoming Encounters Date Type Department Care Team (Late st Contact Info) Description 01/12/2025 3:00 PM EDT Office Visit [facility] MEDICINE 230 [place], [place] [phone] Ernie Noriega MD [address] [place] [address] documented as of this encounter Visit Diagnoses Not on filedocumented in this encounter Additional Health Concerns Assessment Noted Time PHQ-9 Depression Total Score: 0 12/02/19 23 2:38 PM EST documented as of this encounter Care Teams Senior Project Manager Relationship Specialty Start Date End Date Ernie Noriega MD 230 [place], [place] [phone] PCP - General Internal Medicine 08/25/19 documented as of this encounter
--- OUTSIDE RECORDS SUMMARY | 2024-12-07 15:02 | XMS_ITS ---
Author Organization [facility] Address [address] [place] [address] Care Team Providers Care Motor Grader Operator Name Role Phone Milton Ro MD, Ernie Primary Care Provide r Rodrick Juarez [phone] REASON FOR VISIT PROCEDURE TOMORROW Encounters Encounter Location Date Provider Diagnosis [facility] [address] [place] [address] 03/17/2024 Rodrick Millan PLAN OF TREATMENT No Information
--- OUTSIDE RECORDS SUMMARY | 2024-12-07 15:02 | XMS_ITS | Encounter Summary ---
Author Organization [employer] Address [address] [facility] 7t [place] [address] Care Team Providers Care Aerotriangulation Specialist Name Role Phone Ernie Noriega MD Primary Care Provide r Reason for Visit * Reason Onset Date Comments Med Refill 09/18/2023 Encounter Details Date Type Department Care Team ([facility] st Contact Info) Description 09/18/2023 Refill [facility] [address] [place] [address] Ernei Noriega MD [address] [facility] [place] [address] Chronic midline low back pain without sciatica; [...] 3:00 PM EDT Office Visit [facility] MEDICINE 230 [place] [address] Ernie Noriega MD [address] [place] [address] documented as of this encounter Visit Diagnoses Diagnosis Chronic midline low back pain without sciatica Cervical radiculopathy Brachial neuritis or radiculitis nos documented in this encounter Additional Health Concerns Assessment Noted Time PHQ-9 Depression Total Score: 0 12/02/19 23 2:38 PM EST documented as of this encounter Care Teams Aerotriangulation Specialist Relationship Specialty Start Date End Date Ernie Noriega MD 230 [place] [address] PCP - General Internal Medicine 08/25/19 documented as of this encounter
--- OUTSIDE RECORDS SUMMARY | 2024-12-07 15:02 | XMS_ITS | Encounter Summary ---
Author Organization [employer] [facility] Address [address] [place] [address] 7t [place] [address] Care Team Providers Care Senior Marketing Analyst Name Role Phone Ernie Noriega MD Primary Care Provide r Encounter Details Date Type Department Care Team (Late st Contact Info) Description 10/03/2022 Orders Only [facility] [address] [place] [address] [phone] Suha Alexander, RN Social History Tobacco Use [...] Description 01/12/2025 3:00 PM EDT Office Visit [facility] [address] [place] [address] [phone] Ernie Noriega MD [address] [place] [phone] documented as of this encounter Visit Diagnoses Not on filedocumented in this encounter Care Teams Senior Marketing Analyst Relationship Specialty Start Date End Date Ernie Noriega MD [address] [place] [phone] PCP - General Internal Medicine 08/25/19 documented as of this encounter
--- OUTSIDE RECORDS SUMMARY | 2024-12-07 15:02 | XMS_ITS | Encounter Summary ---
Author Organization [employer] Address [address] [place] [address] 7t [place] [address] Care Team Providers Care Payroll Human Resources Assistant Name Role Phone Ernie Noriega MD Primary Care Provide r Reason for Visit * Reason Comments Med Refill Encounter Details Date Type Department Care Team ([facility] st Contact Info) Description 12/25/[address] [facility] MED[facility]INE [address] [place], [place] [phone] Ernie Noriega MD [address] [place], [place] [phone] Pain; Primary hypertension; Seasonal allergies Social History [...] PM EDT Office Visit [facility] MED[facility]INE [address] [place] [address] Ernie Noriega MD [address] [place] [address] documented as of this encounter Visit Diagnoses Diagnosis Pain Generalized pain Primary hypertension Unspecified essential hypertension Seasonal allergies Allergic rhinitis, cause unspecified documented in this encounter Additional Health Concerns Assessment Noted Time PHQ-9 Depression Total Score: 0 12/02/19 23 2:38 PM EST documented as of this encounter Care Teams Payroll Human Resources Assistant Relationship Specialty Start Date End Date Ernie Noriega MD [address] [place] [address] PCP - General Internal Medicine 08/25/19 documented as of this encounter
--- OUTSIDE RECORDS SUMMARY | 2024-12-07 15:02 | XMS_ITS | Encounter Summary ---
Author Organization [facility] Address [address] [place] [address] Care Team Providers Care Personal Chef Name Role Phone Ernie Merritt MD Primary Care Provi bobo Reason for Visit * Reason Comments Pre-op Visit TF release DOS: 12/07 Encounter Details Date Type Department Care Team (Late st Contact Info) Description 11/22/2024 10:45 AM EST Consult Orthopedic Surgery - [place] [address] [facility] [address] [place] [address] Trista David MD 175 [facility] [address] [place] [phone] Acquired trigger finger of left index finger (Primary Dx) Social History Tobacco Use Types [...] AM EST Sexual Orientation Not on file documented as of this encounter Last Filed Vital Signs Vital Sign Reading Time Taken Comments Blood Pressure 133/70 11/22/2024 10:50 AM EST Pulse 58 11/22/2024 10:50 AM EST Temperature 36.4 ??C (97.5 ??F) 11/22/2024 10:[address] Respiratory Rate - - Oxygen Saturation - - Inhaled Oxygen Concentration - - Weight 73.9 kg (163 lb) 11/22/2024 10:50 AM EST Height 160 cm (5' 3 ) 11/22/2024 10:50 AM EST Body Mass Index 28.87 11/22/2024 10:50 AM EST documented in this encounter Progress Notes * Trista David MD - 11/22/2024 10:45 AM EST PRE-OPERATIVE HISTORY & PHYSICAL PATIENT: Miguelina Julien :1965 VISIT DATE:11/22/2024 HPI: Miguelina Julien IS A 59 y.o. YEAR OLD female who presents for pre-operative exam. The patient is scheduled for left index finger A1 erika release. Patient has been having locking and catching of her digit for some time. She has had this before and other fingers. At this time we will proceed with surgery. ROS: No recent colds flus or infections ALLERGIES: No Known Allergies PROBLEM LIST: Patient Active Problem List Diagnosis Acquired trigger finger of left index finger De Quervain's tenosynovitis, left Trigger thumb of right hand PAST SURGERIES: Past Surgical History: Procedure Laterality Date CARPAL TUNNEL RELEASE Bilateral SHOULDER SURGERY Left at least 10 years ago (pre-2014?) SOCIAL HISTORY: Social History Tobacco Use Smoking status: Never Smokeless tobacco: Never Substance Use Topics Alcohol use: Never MEDICATIONS: Current Outpatient Medications: acetaminophen (TYLENOL) 500 mg tablet, TOME DEBBIE TABLETA ABRAHAM VECES AL FERNANDO FOR PAIN, Disp: , Rfl: fluticasone propion-salmeteroL (ADVAIR DISKUS) 100-50 mcg/dose diskus inhaler, Inhale 1 Puff into the lungs every 12 hours., Disp: , Rfl: gabapentin (NEURONTIN) 300 mg capsule, Take 300 mg by mouth 2 times daily., Disp: , Rfl: hydroCHLOROthiazide 12.5 mg tablet, Take 12.5 mg by mouth daily., Disp: , Rfl: ibuprofen (ADVIL,MOTRIN) 600 mg tablet, Take 1 Tablet by mouth every 8 hours as needed for Pain (Take with food. do not take with meloxicam) for up to 60 doses., Disp: , Rfl: montelukast (SINGULAIR) 10 mg tablet, Take 10 mg by mouth at bedtime., Disp: , Rfl: oxyCODONE (ROXICODONE) 5 mg immediate release tablet, every 4 (four) hours if needed for severe pain., Disp: , Rfl: zolpidem (AMBIEN) 10 mg tablet, Take 10 mg by mouth at bedtime as needed., Disp: , Rfl: PHYSICAL EXAM: Visit Vitals BP 133/70 Pulse 58 Temp 36.4 ??C (97.5 ??F) Ht 1.6 m (63 ) Wt 73.9 kg (163 lb) BMI 28.87 kg/m?? Smoking Status Never BSA 1.77 m?? APPEARANCE: Patient is alert and oriented and in no acute distress. HEENT: Normocephalic. Pupils are equal round and reactive to light. HEART: Heart rate is regular. There are no appreciable murmurs, rubs, or gallops. There is no JVD. LUNGS: Clear to auscultation. EXTREMITIES: Patient has tenderness over the A1 erika of the left index finger demonstrates locking. None the other A1 pulleys right now are tender. Patient is neurovascular intact. Patient did note that she has some weakness and small finger abduction adduction. Visibly no intrinsic weakness. Active abduction adduction seems to be intact although was not as brisk as the opposite side. Grossly intact sensation on the fingers on the left. Negative Tinel's over the carpal tunnel. She is a little discomfort when I palpate over Guyon's canal. ASSESSMENT & PLAN: ICD-10-CM ICD-9-CM 1. Acquired trigger finger of left index finger M65.322 727.03 I reviewed the surgery with the patient. I showed the patient where the incisions would be. We talked about the surgery and the postoperative course. Risks of the procedure were reviewed. These can include, but are not limited to, nerve, tendon, or artery damage. There can also be complications with infection, bleeding, persistent pain, incomplete resolution of symptoms, and possibly the need foradditional interventions. Any of these events could compromise the limb on a temporary or permanentbasis. There can also be medical complications such as heart or lung dysfunction or blood clots that can put the patient at risk. We reviewed the recuperative time and limitations. Pain management was reviewed with the patient. Typically Tylenol, an anti- inflammatory, and then, if necessary, a few tablets of pain medication. The patient indicated understanding. Patient's questions were answered. Consent was obtained. In regards to the patient's other issue that she brought up during the visit we will look and see when her last EMG was. If we need to get a new one we can order at a later time. POST-OPERATIVE APPOINTMENT DATE: 12/16/2024 with Nicolasa documented in this encounter Plan of Treatment Upcoming Encounters Date Type Department Care Team (Late st Contact Info) Description 12/16/2024 11:00 AM EST Office Visit Orthopedic Surgery - [place] [address] [facility] [address] [place] [phone] Nicolasa Yu PA [address] [facility] [place] [address] [place] [phone] Scheduled Procedures Name Priority Associated Diagnoses Date/Ti me RELEASE TRIGGER FINGER Trigger finger, unspecified finger 12/07/2024 12:32 PM EST documented as of this encounter Visit Diagnoses Diagnosis Acquired trigger finger of left index finger- Primary documented in this encounter Care Teams Personal Chef Relationship Specialty Start Date End Date Ernie Merritt MD [address] [place] [address] [place] [phone] PCP - General Internal Medicine 05/20/21 documented as of this encounter
--- OUTSIDE RECORDS SUMMARY | 2024-12-07 15:02 | XMS_ITS | Encounter Summary ---
Author Organization [employer] [facility] Address [address] [place] [address] Care Team Providers Care Sprayer Leather Name Role Phone Ernie Merritt MD Primary Care Provi bobo Reason for Visit * Auth/Cert (Routine) Specialty Diagnoses / Procedures Referred By Contkishore t Referred To Contact Diagnoses Trigger finger, unspecified finger TRIGGER FINGER LEFT INDEX FINGER Procedures ME INCISION TENDON SHEATH LEFT A1 JOAO/TRIGGER FINGER RELEASE INDEX FINGER Trista David MD [address] [address] Phone: tel: fax: [facility] OR [address] [place] [address] Phone: tel: Referral ID Status Reason Start Date Expiration Date Visits Re quested Visits Authorized [id number] 1 1 Encounter Details Date Type Department Care Team (Late st Contact Info) Description 12/07/2024 12:30 PM EST Anesthesia Event [facility] Main OR [address] [place] [address] Irvin Fields MD [address] [place] [address] Agnieszka Villatoro CRNA [address] [place] [phone] Anesthesia Record Procedure Summary Procedure Name Responsible Anesthesiologist Anesthesia Start Time Anesthesia Stop Time LEFT A1 JOAO/TRIGGER FINGER RELEASE INDEX FINGER (Left: Fingers) Irvin Fields MD 12/07/24 1230 12/07/24 1323 Events Date Time Event Comment 12/07/2024 1227 1230 An Start 1232 In Room 1234 An Start Data The patient wa s reevaluated immediately before moderate or deep sedation use and before anesthesia induction. 1240 Anesthesia Ready 1248 Ethan Local injection by surgeon 1254 Proc Start 1309 Proc Fin 1316 Out of Room 1317 an stop data 1323 Handoff to RN I completed my handoff to the receiving nurse during which we: 1. Identified the patient 2. Identified the responsible provider 3. Reviewed the pertinent medical history 4. Discussed the surgical course 5. Reviewed intra-op anesthesia management and issues during anesthesia 6. Set expectations for post-procedure period 7. Allowed opportunity for questions and acknowledgement of understanding. 1323 An Stop Meds Name Total fentaNYL 0.05 mg/mL 50 mcg midazolam 1 mg/mL 2 mg ondansetron 2 mg/mL 4 mg ketorolac 30 mg 15 mg propofol (DIPRIVAN) injection 10 mg/mL 7 0 mg propofol (DIPRIVAN) infusion 10 mg/mL 24 8.3 mg lidocaine PF (XYLOCAINE-MPF) local injec tion 2% 50 mg ceFAZolin (ANCEF) 2 g in sterile water 2 0 mL IV syringe 2 g lactated Ringer's infusion 700 mL * Agents Name O2 N2O Air Sevoflurane Inspired Sevoflurane * Blood No blood administrations on file. Lines, Drains, and Airways Type Details Placement Removal Wound Incision; Finger D2, Index; Anterior, Left, Lower 12/07/24 1256 by Peripheral IV Placement Date: 11/13 04/05; Placement Time: 121; Catheter Size: 20 G; Orientation: Posterior, Right; Location: Forearm; Site Prep: Chlorhexidine; Inserted by: Dragan PEREZ RN; Insertion Attempts: 1; Patient Tolerance: Tolerated well; Removal Date: 12/07/24; Removal Time: 1442 12/07/24 1211 by Mirna Perez RN 12/07/24 1442 by Rachel Berman RN documented in this encounter Social History Tobacco Use Types Packs/Day Years [...] as of this encounter Progress Notes * Agnieszka Villatoro CRNA - 12/07/2024 1:23 PM EST Patient: Miguelina Julien Procedure Summary Date: 12/07/24 Room / Location: [address] OR Anesthesia Start: 1230 Anesthesia Stop: 1323 Procedure: LEFT A1 JOAO/TRIGGER FINGER RELEASE INDEX FINGER (Left: Fingers) Diagnosis: Trigger finger, unspecified finger (TRIGGER FINGER LEFT INDEX FINGER) Surgeons: Trista David MD Responsible Provider: Irvin Fields MD Anesthesia Type: MAC ASA Status: 2 Anesthesia Plan: MAC Last Vitals: Vitals Value Taken Time BP 103/59 12/07/24 1321 Temp 36.2 ??C (97.2 ??F) 12/07/24 1321 Pulse 55 12/07/24 1321 Resp 16 12/07/24 1321 SpO2 94 % 12/07/24 1321 Pain Score: 0 - No pain Anesthesia Post Evaluation Patient location during evaluation: PACU Patient participation: complete - patient participated Level of consciousness: awake Pain management: adequate Airway patency: patent Anesthetic complications: no Cardiovascular status: acceptable Respiratory status: acceptable Hydration status: acceptable Nausea: No Vomiting: No There were no known notable events for this encounter. * Irvin Fields MD - 12/07/2024 10:10 AM EST Relevant Problems No relevant active problems Clinical information reviewed: Tobacco Meds Med Hx Surg Hx Fam Hx Soc Hx Anesthesia Plan ASA 2 Anesthesia Plan: MAC Induction method: N/A Anesthetic plan and risks discussed with patient. Anesthesia Evaluation Airway Mallampati: II Dental - normal exam Pulmonary - normal exam (+) asthma Cardiovascular - normal exam (+) hypertension Neuro/Psych Comments: Chronic back pain GI/Hepatic/Renal Endo/Other (+) arthritis Abdominal PONV RISK SCORE: 2 Vitals: 11/07/24 1000 Weight: 73.9 kg (163 lb) Height: 1.6 m (63 ) SpO2 Readings from Last 1 Encounters: No data found for SpO2 No results found for: WBC , RBC , HGB , HCT , PLT , MCV No Known Allergies STOP BANG: No data recorded NPO Status: No data recorded documented in this encounter Plan of Treatment Upcoming Encounters Date Type Department Care Team (Late st Contact Info) Description 12/16/2024 11:00 AM EST Office Visit Orthopedic Surgery - [place] [address] [facility] [address] [place] [address] Nicolasa Yu PA 174 [facility] [place] [address] [place] [address] Scheduled Procedures Name Priority Associated Diagnoses Date/Ti me RELEASE TRIGGER FINGER Trigger finger, unspecified finger 12/07/2024 12:32 PM EST documented as of this encounter Visit Diagnoses Not on filedocumented in this encounter Administered Medications Inactive Administered Medications - up to 3 most recent administrations Medication Order MAR Action Action Date Dose Rate Site ceFAZolin (ANCEF) 2 g in sterile water 20 mL IV syringe 2 g, intravenous, Administer over 3 Minutes, Once, On Thu12/07/24 at 1230, For 1 dose, Preprocedure, -IV Push over 3 minutes -Administer within 60 minutes of incision, Indication: Prophylaxis-Surgical New Bag 12/07/2024 12:45 PM EST 2 g fentaNYL (PF) (SUBLIMAZE) injection intravenous, As needed, Starting on Thu12/07/24 at 1236, Anesthesia Intraprocedure Given 12/07/2024 12:47 PM EST 25 mcg Given 12/07/2024 12:36 PM EST 25 mcg ketorolac (TORADOL) injection intravenous, As needed, Starting on Thu12/07/24 at 1311, Anesthesia Intraprocedure Given 12/07/2024 1:11 PM EST 15 mg lactated Ringer's infusion intravenous, Continuous PRN, Starting on Thu12/07/24 at 1224, Anesthesia Intraprocedure New Bag 12/07/2024 12:24 PM EST lidocaine (PF) (XYLOCAINE-MPF) 2 % injection injection, As needed, Starting on Thu12/07/24 at 1237, Anesthesia Intraprocedure Given 12/07/2024 12:37 PM EST 50 mg midazolam (VERSED) injection intravenous, As needed, Starting on Thu12/07/24 at 1230, Anesthesia Intraprocedure Given 12/07/2024 12:30 PM EST 2 mg ondansetron (PF) (ZOFRAN) injection intravenous, As needed, Starting on Thu12/07/24 at 1313, Anesthesia Intraprocedure Given 12/07/2024 1:13 PM EST 4 mg propofoL (DIPRIVAN) infusion 10 mg/mL intravenous, Continuous PRN, Starting on Thu12/07/24 at 1237, Anesthesia Intraprocedure Rate/Dose Change 12/07/2024 1:01 PM EST 80 mcg/kg/min 35.472 mL/hr New Bag 12/07/2024 12:37 PM EST 100 mcg/kg/min 44.34 mL /hr propofoL (DIPRIVAN) injection intravenous, As needed, Starting on Thu12/07/24 at 1238, Anesthesia Intraprocedure Given 12/07/2024 12:47 PM EST 40 mg Given 12/07/2024 12:38 PM EST 30 mg documented in this encounter Care Teams Sprayer Leather Relationship Specialty Start Date End Date Ernie Merritt MD [address] [place] [address] [place] [address] PCP - General Internal Medicine 05/20/21 documented as of this encounter
--- OUTSIDE RECORDS SUMMARY | 2024-12-07 15:02 | XMS_ITS | Encounter Summary ---
Author Organization [employer] Address [address] [place] [address] 7 [place] [address] Care Team Providers Care Flame Hardening Machine Operator Name Role Phone Ernie Noriega MD Primary Care Provide r Reason for Visit * Reason Onset Date Comments Med Refill 09/28/2024 Encounter Details Date Type Department Care Team ([facility] Contact Info) Description 09/28/2024 Telephone [facility] MEDICINE [address] [place] [address] Ernie Noriega MD [address] [place] [address] Med Refill Social History Tobacco Use Types [...] 300 MG capsule To be sent to: [facility]/pharmacy [address] [place] [address] documented in this encounter Plan of Treatment Upcoming Encounters Date Type Department Care Team (Late st Contact Info) Description 01/12/2025 3:00 PM EDT Office Visit [facility] MEDICINE [address] [place] [address] Ernie Noriega MD [address] [place], [place] [phone] documented as of this encounter Visit Diagnoses Not on filedocumented in this encounter Additional Health Concerns Assessment Noted Time PHQ-9 Depression Total Score: 2 01/21/20 24 1:25 PM EDT documented as of this encounter Care Teams Flame Hardening Machine Operator Relationship Specialty Start Date End Date Ernie Noriega MD [address] [place] [address] PCP - General Internal Medicine 08/25/19 documented as of this encounter
--- OUTSIDE RECORDS SUMMARY | 2024-12-07 15:02 | XMS_ITS | Encounter Summary ---
Author Organization [employer] Address [address] [place] [address] 7t [place] [address] Care Team Providers Care Form Grader Operator Name Role Phone Ernie Noriega MD Primary Care Provide r Reason for Visit * Reason Onset Date Comments Med Refill 10/13/2024 Encounter Details Date Type Department Care Team ([facility] st Contact Info) Description 10/13/2024 Refill [facility] MEDICINE [address] [place] [address] Ernie Noriega MD [address] [place] [address] Chronic midline low back pain without sciatica [...] 01/12/2025 3:00 PM EDT Office Visit [facility] MEDICINE [address] [place] [address] Ernie Noriega MD [address] [place] [address] documented as of this encounter Visit Diagnoses Diagnosis Chronic midline low back pain without sciatica documented in this encounter Additional Health Concerns Assessment Noted Time PHQ-9 Depression Total Score: 2 01/21/20 24 1:25 PM EDT documented as of this encounter Care Teams Form Grader Operator Relationship Specialty Start Date End Date Ernie Noriega MD [address] [place] [address] PCP - General Internal Medicine 08/25/19 documented as of this encounter
--- OUTSIDE RECORDS SUMMARY | 2024-12-07 15:02 | XMS_ITS | Encounter Summary ---
Author Organization [employer] [facility] Address [address] 7[address] [place] [address] Care Team Providers Care Financial Aid Manager Name Role Phone Ernie Noriega MD Primary Care Provide r Reason for Visit * Reason Onset Date Comments Med Refill Referral 12/10/2022 Patient walked i n requesting for referral to a neurologist. It is difficult for her to walk and do her [place] activities. Pt has had [facility] go to her house for therapy, but it has not made any improvements. Encounter Details Date Type Department Care Team (Late st Contact Info) Description 12/10/[address] [facility] MEDICINE [address] [place], [place] [phone] Ernie Noriega MD [address] [place], [place] [phone] Pain Social History Tobacco Use Types Packs/Day [...] PM EDT Office Visit [facility] MEDICINE [address] [place] [address] Ernie Noriega MD [address] [place] [address] documented as of this encounter Visit Diagnoses Diagnosis Pain Generalized pain documented in this encounter Additional Health Concerns Assessment Noted Time PHQ-9 Depression Total Score: 0 12/02/19 23 2:38 PM EST documented as of this encounter Care Teams Financial Aid Manager Relationship Specialty Start Date End Date Ernei Noriega MD [address] [place] [address] PCP - General Internal Medicine 08/25/19 documented as of this encounter
--- OUTSIDE RECORDS SUMMARY | 2024-12-07 15:02 | XMS_ITS | Encounter Summary ---
Author Organization [employer] Address [address] [place] [address] 7t [place] [address] Care Team Providers Care Physician General Internal Medicine Name Role Phone Ernie Noriega MD Primary Care Provide r Reason for Visit * Reason Onset Date Comments Med Refill 09/28/2024 Encounter Details Date Type Department Care Team ([facility] st Contact Info) Description 09/28/2024 Refill [facility] MEDICINE [address] [place] [address] Ernie Noriega MD [address] [place] [address] Primary osteoarthritis of knee, unspecified laterality Social [...] 01/12/2025 3:00 PM EDT Office Visit [facility] MEDICINE [address] [place] [address] Ernie Noriega MD [address] [place] [address] documented as of this encounter Visit Diagnoses Diagnosis Primary osteoarthritis of knee, unspecified laterality documented in this encounter Additional Health Concerns Assessment Noted Time PHQ-9 Depression Total Score: 2 01/21/20 24 1:25 PM EDT documented as of this encounter Care Teams Physician General Internal Medicine Relationship Specialty Start Date End Date Ernie Noriega MD [address] [place] [address] PCP - General Internal Medicine 08/25/19 documented as of this encounter
--- OUTSIDE RECORDS SUMMARY | 2024-12-07 15:02 | XMS_ITS | Encounter Summary ---
Author Organization [employer] [facility] Address [address] [place] [address] 7t [place] [address] Care Team Providers Care Rug Scratcher Name Role Phone Ernie Noriega MD Primary Care Provide r Encounter Details Date Type Department Care Team ([facility] Contact Info) Description 12/09/2022 Orders Only [facility] PEDIATRICS [address] [place] [address] Suha Alexander, RN Social History Tobacco [...] Upcoming Encounters Date Type Department Care Team ([facility] Contact Info) Description 01/12/2025 3:00 PM EDT Office Visit [facility] MEDICINE [address] [place] [address] Ernie Noriega MD [address] [place] [address] documented as of this encounter Procedures Procedure Name Priority Date/Time Associated Diagnosis Comments BI MAMMOGRAM SCREENING TOMOSYNTHESIS BILATERAL Routine 12/23/2022 11:35 AM EDT documented in this encounter Results * BI Mammogram Screening Tomosynthesis Bilateral (12/23/2022 11:35 AM EDT) Anatomical Region Laterality Modality Breast Bilateral Mammography 12/23/2022 11:3 5 AM EDT Narrative 12/24/2022 5:15 PM EDT ? [facility] [place] ? [address] ?[place] [address] ? Mammography Report ? Signed ? Patient: Miguelina Watson ?MR#: ?? [id number] ? : 1965 ?Acct:[id number] ? Age/Sex: 57 / F ?ADM Date: 12/23/22 ? Loc: HO.MAMMO ? Attending Dr: Ernie Merritt MD ? Ordering Physician: Ernie Merritt MD ?Resu ?? lts: 1Negative ? Date of Service: 12/23/22 ?Follow Up: 1 Year From Orig ?? inal Mammogram ? Procedure(s): MM tomosynthesis screening BI ?? Accession Number(s): [id number] ? cc: Ernie Merritt MD ? EXAMINATION: [...] 1712 ? DD/ 1135 ? TD/TT: ? Shoemaking Finisher: SK ? Procedure Note Tiesha, Rene - 12/24/2022 [facility] [address] [place] [address] Dr. [place], [place] T [address] Mammography Report Signed [id number] : 1965Acct:[id number] Age/Sex: 57 / FADM Date: 12/23/22 Loc: DANIELE Attending Dr: Ernie Merritt MD Ordering Physician: Ernie Merritt MDResu lts: 1Negative Date of Service: 12/23/22Follow Up: 1 Year From Orig inal Mammogram Procedure(s): MM tomosynthesis screening BI Accession Number(s): [id number] cc: Ernie Merritt MD EXAMINATION: MM SCREENING [...] in OV> 12/24/22 1712 DD/ 1135 TD/TT: Shoemaking Finisher: SMITHA [facility] External Provider IMG BI PROCEDURES Edited Result - Final documented in this encounter Visit Diagnoses Not on filedocumented in this encounter Additional Health Concerns Assessment Noted Time PHQ-9 Depression Total Score: 0 12/02/19 23 2:38 PM EST documented as of this encounter Care Teams Rug Scratcher Relationship Specialty Start Date End Date Ernie Noriega MD [address] [place] [address] PCP - General Internal Medicine 08/25/19 documented as of this encounter
--- OUTSIDE RECORDS SUMMARY | 2024-12-07 15:02 | XMS_ITS | Patient Health Record ---
Author Organization [facility] Address [address] [place] [address] Care Team Providers Care Inventory Control/Shipping Receiving Name Role Phone Milton Ro MD, Ernie Primary Care Provide r Unavailable Rodrick Millan Unavailable [phone] ALLERGIES No Known Allergies RESULTS Component Value Reference Range Notes Pathology (Not yet reviewed by provider) Interpretation: Performing Lab:[facility], [address] [place] [id number] Notes/Report: REASON FOR REFERRAL No Information MEDICATIONS [...] as needed Inhalation every 4 hrs Active Cwjqaykrwe-Ajbikgq-Scuccxnj 50-325-40 MG 1 capsule as needed Orally [...] Problem Colon cancer screening (Z12.11) Active confirmed 102709322 Problem Diverticulosis of large intestine without perforation or abscess without bleeding (K57.30) Active confirmed Diverticul ar disease of colon (386965470) Problem Preprocedural examination (Z01.818) Active confirmed 593974759774683 Problem Encounter for long-term (current) use of NSAIDs (Z79.1) Active confirmed 609480339 Encounters Encounter Location Date Provider Diagnosis [facility] [address] [place] [id number] 02/03/2024 Rodrick Millan [facility] [address] [place] [id number] 03/18/2024 Rodrick Millan Encounter for screen ing colonoscopy Z12.11 ; Colon polyps K63.5 ; Diverticulosis of large intestine without perforation or abscess without bleeding K57.30 and Internal hemorrhoids K64.8 [facility] [address] [place] [address] 12/14/2023 Rodrick Millan [facility] [address] [place] [address] 03/17/2024 Rodrick Millan ASSESSMENTS Encounter Date Diagnosis [...] Start Date Coverage End Date MEDICAID [place] [address] [facility] [phone] [id number] [facility] Self - patient is the insured MEDICAL (GENERAL) HISTORY Medical History History ICD Code Denies AK,DM,CVA,renal disease Asthma Depression/anxiety Hypertension Negative screening colonoscopy in 06/2013 Arthritis/Body aches Surgical History Surgery Date(Month/Year) Back surgery for disc disease Bilateral carpal tunnel Left shoulder C-spine disc surgery Bilateral knee replacements Might be having a left shoulder replacem ent as of the 07/2023 OV
--- OUTSIDE RECORDS SUMMARY | 2024-12-07 15:02 | XMS_ITS | Encounter Summary ---
Author Organization [employer] Address [address] [place] [address] 7 [place] [address] Care Team Providers Care Buncher Hand Name Role Phone Ernie Noriega MD Primary Care Provide r Reason for Visit * Reason Onset Date Comments Medication Question 10/03/2022 returning call 10/03/2022 Encounter Details Date Type Department Care Team ([facility] st Contact Info) Description 10/03/2022 Telephone [facility] MEDICINE [address] [place] [address] Ernie Noriega MD [address] [place] [address] Medication Question; returning call Social History Tobacco [...] pt returning call Please contact pt at [phone] * Telephone Encounter - Peg Scott RN - 10/10/2022 11:17 AM EST T/C placed to pt x2AM re below message. No answer, left v/m. Will retask to [facility] for third attempt. * Telephone Encounter - Peg Scott RN - 10/08/2022 3:32 PM EST Incoming T/C from Sylvia CAMARILLO from [facility]. She states spoke with APPAREL PATTERN MAKER who saw pt 09/24. It is not in the OV note (which is located in Epic under Media tab) but that pt reported pain during appt and APPAREL PATTERN MAKER advised pt speak to her PCP and [...] next month with PCP. Will send to [facility] to attempt second call. [place] sending to PCP as FYI. * Telephone Encounter - Peg Scott RN - 10/08/2022 10:34 AM EST Reviewed most recent note from [facility] note. No mention of increased dose. T/C placed to them who stated they don't see anything but will send message to provider who is out onvacation and will be back next week. Provided my direct ext for call back. * Telephone Encounter - Marjorie Bass - 10/03/2022 10:42 AM EST Tc from pt calling to inform was told by her [facility] Physicians DR to request [...] Description 01/12/2025 3:00 PM EDT Office Visit [facility] [address] [facility] [place] [address] Ernie Noriega MD [address] [place] [address] documented as of this encounter Visit Diagnoses Not on filedocumented in this encounter Care Teams Buncher Hand Relationship Specialty Start Date End Date Ernie Noriega MD [address] [facility] [address] PCP - General Internal Medicine 08/25/19 documented as of this encounter
--- OUTSIDE RECORDS SUMMARY | 2024-12-07 15:02 | XMS_ITS | Encounter Summary ---
Author Organization [employer] Address [address] [place] [address] 7t [place] [address] Care Team Providers Care Automobile Designer Name Role Phone Ernie Noriega MD Primary Care Provide r Reason for Visit * Reason Comments Med Refill Encounter Details Date Type Department Care Team ([facility] st Contact Info) Description 10/11/2023 Refill [facility] MEDICINE [address] [place] [address] Ernie Noriega MD [address] [place] [address] Social History Tobacco Use Types Packs/Day Years [...] Description 01/12/2025 3:00 PM EDT Office Visit [facility] MEDICINE [address] [place] [address] Ernie Noriega MD [address] [place] [address] documented as of this encounter Visit Diagnoses Not on filedocumented in this encounter Additional Health Concerns Assessment Noted Time PHQ-9 Depression Total Score: 0 12/02/19 23 2:38 PM EST documented as of this encounter Care Teams Automobile Designer Relationship Specialty Start Date End Date Ernie Noriega MD [address] [place] [address] PCP - General Internal Medicine 08/25/19 documented as of this encounter
--- OUTSIDE RECORDS SUMMARY | 2024-12-07 15:05 | XMS_ITS | Encounter Summary ---
Author Organization [facility] Address [address] [place] [address] Care Team Providers Care Mold Changer Name Role Phone Ernie Merritt MD Primary Care Provi [facility] Reason for Visit * Auth/Cert (Routine) Specialty Diagnoses / Procedures Referred By Bro t Referred To Contact Diagnoses Trigger finger, unspecified finger TRIGGER FINGER LEFT INDEX FINGER Procedures [place] INCISION TENDON SHEATH LEFT A1 JOAO/TRIGGER FINGER RELEASE INDEX FINGER Trista David MD [address] [address] Phone: tel: fax: [facility] OR [address] [place] [phone] Phone: tel: Referral ID Status Reason Start Date Expiration Date Visits Re quested Visits Authorized [id number] 1 1 Encounter Details Date Type Department Care Team (Latest Contact Info) Description 12/07/2024 11:51 AM EST - 12/07/2024 2:43 PM EST Hospital Encounter [facility] OR [address] [place] [address] Trista David MD [address] [address] Discharge Disposition: Home or Self Care Social History Tobacco Use Types Packs/Day Years [...] Mass Index 28.87 11/07/2024 10:00 AM EST documented in this encounter Discharge Instructions * Discharge Instructions* TINA Staley - 12/07/2024 1:12 PM EST ORTHOPEDIC DISCHARGE INSTRUCTIONS status post A1 joao release performed by Dr David 12/07/24 FOLLOW UP: Please follow up with Dr David as previously scheduled. Please call the office if you donot have an appointment and it is not listed above. ACTIVITY: Minimize weightbearing right upper extremity - Encourage strict elevation above the level of the heart and wiggle fingers gently to reduce pain and swelling. Bruising and swelling is normal - You may use the hand lightly as tolerated for self care. DRESSING: - Keep dressing clean and dry, May cover with plastic bag and avoid immersing the hand in water. - After 4 days, Dressing may loosen. You may change the dressing. Leave sutures and / or steri-strips in place. Re-cover with dry dressing. Keep covered with dry dressing at all times until follow upappt. - No driving until you can use the hand adequately to safely handling your vehicle. PAIN MANAGEMENT: Please take Tylenol and ibuprofen for pain. You may take oxycodone for breakthrough pain. You may cut pills in half and taper dose as tolerated. - Continue bowel medications such as Colace (stool softener) and Senna (laxative/stimulant) while taking narcotic pain medications. These may be obtained over the counter. Call if you have any questions or concerns such as fever, redness, drainage, gross swelling, discoloration. [facility] Trista David MD [address] [place] [address] If you have any questions and or cannot keep your appointment, please contact the [facility] office at [phone] * Attachments The following attachments cannot be sent through Care Everywhere. * Sedation (Yi) documented in this encounter Medications at Time of Discharge acetaminophen (TYLENOL) 500 mg tablet Take 2 tablets (1,000 mg total) by mouth every 8 (eight) hours if needed for mild pain. 30 tablet 12/07/2024 fluticasone propion-salmetero L (ADVAIR DISKUS) 100-50 mcg/dose diskus inhaler Inhale 1 Puff into the lungs every 12 hours. gabapentin (NEURONTIN) 300 mg capsule Take 300 mg by mouth 2 times daily. hydroCHLOROthiazi de 12.5 mg tablet Take 12.5 mg by mouth daily. ibuprofen (ADVIL,MOTRIN) 600 mg tablet Take 1 tablet (600 mg total) by mouth every 6 (six) hours if needed for mild pain. 30 each 12/07/2024 montelukast (SINGULAIR) 10 mg tablet Take 10 mg by mouth at bedtime. oxyCODONE (ROXICODONE) 5 mg immediate release tablet Take 1 tablet (5 mg total) by mouth every 4 (four) hours if needed for severe pain. Max Daily Amount: 30 mg 8 tablet 12/07/2024 zolpidem (AMBIEN) 10 mg tablet Take 10 mg by mouth at bedtime as needed. documented as of this encounter Ordered Prescriptions Prescription Sig Dispense Quantity Refills Last Filled Start Date End Date ibuprofen (ADVIL,MOTRIN) 600 mg tablet Take 1 tablet (600 mg total) by mouth every 6 (six) hours if needed for mild pain. 30 each 12/07/2024 oxyCODONE (ROXICODONE) 5 mg immediate release tablet Take 1 tablet (5 mg total) by mouth every 4 (four) hours if needed for severe pain. Max Daily Amount: 30 mg 8 tablet 12/07/2024 acetaminophen (TYLENOL) 500 mg tablet Take 2 tablets (1,000 mg total) by mouth every 8 (eight) hours if needed for mild pain. 30 tablet 12/07/2024 documented in this encounter Discharge Disposition Disposition Code Departure Means Destination Comment s Home or Self Care Wheelchair documented in this encounter H&P Notes * Trista David MD - 12/07/2024 12:19 PM EST Pt seen Site marked and consent confirmed Source Note - Trista David MD - 11/22/2024 10:45 AM EST PRE-OPERATIVE HISTORY & PHYSICAL PATIENT: Miguelina Julien :1965 VISIT DATE:11/22/2024 HPI: Miguelina Julien IS A 59 y.o. YEAR OLD female who presents for pre-operative exam. The patient is scheduled for left index finger A1 joao release. Patient has been having locking and [...] EXTREMITIES: Patient has tenderness over the A1 joao of the left index finger demonstrates locking. [...] 12/16/2024 with Nicolasa documented in this encounter Procedure Notes * Trista David MD - 12/07/2024 12:54 PM EST LEFT A1 JOAO/TRIGGER FINGER RELEASE INDEX FINGER (L) OPERATIVE NOTE Date: 12/07/2024 Location: [facility] OR Name: Miguelina Julien, : 1965, Diagnosis Pre-op Diagnosis * Trigger finger, unspecified finger [M65.30] Post-op Diagnosis * Trigger finger, unspecified finger [M65.30] Procedures LEFT A1 JOAO/TRIGGER FINGER RELEASE INDEX FINGER [address] - [place] INCISION TENDON SHEATH Indications: Miguelina Julien is an 59 y.o. female who is having surgery for TRIGGER FINGER LEFT INDEX FINGER. She has had multiple surgeries at other sites previously for triggering. Surgeon(s) & Smoke Jumper(s) * Trista David MD - Primary Anesthesia: Monitor Anesthesia Care and local anesthesia ASA: II Estimated Blood Loss: Minimal Procedure Details: ICD-9: 727.03 ICD-10: M65.30 (UNSPECIFIED) cpt: 79064 The patient was identified in the preoperative holding area. The site of surgery was confirmed and marked at the left index finger. The patient was taken to the operative suite. The arm border was brought up next to the side of the stretcher. Padding and a tourniquet was placed about the upper limb. The remainder of the limb was scrubbed, prepped and draped in usual sterile manner. The timeout was done. IV sedation was given. Local anesthesia of 1% lidocaine with epinephrine buffered sodium bicarbonate was used. 4 mL was injected at the intended incision site. While this was setting up we gotall the dressings ready to go and lined up. We then elevated the limb, exsanguinated it and raised the tourniquet. An oblique incision was made over the A1 joao of the finger. Blunt dissection was done. The flexor sheath was identified. A small self-retaining retractor was placed. My grants assistant held the Ragnell retractors as well to provide visualization. The flexor sheath and A1 joao were identified. The sheath was divided as was the A1 joao. In a proximal direction and under direct visualization I gently split the palmar aponeurosis at the level of the distal palmar crease in the midline. In a distaldirection I confirmed that we were up to the level of the A2 joao. I then move the finger back and forth to confirm that there is no locking or catching. The tendons were inspected. No additional debridement was necessary. The tourniquet was let down. The wound was washed out. The hand pinked up and there was no untoward bleeding. The skin was closed with interrupted Prolene. The wound was dressed with Xeroform and light soft sterile dressings and an Anderson wrap. The patient was taken to the recovery room in stable condition. Complications: None; patient tolerated the procedure well. Disposition: PACU - hemodynamically stable. Condition: stable documented in this encounter Plan of Treatment Upcoming Encounters Date Type Department Care Team (Late st Contact Info) Description 12/16/2024 11:00 AM EST Office Visit [facility] [place] 175 [facility] [address] [place] [address] Nicolasa Yu PA 174 [facility] [address] [place] [phone] Scheduled Procedures Name Priority Associated Diagnoses Date/Ti me RELEASE TRIGGER FINGER Trigger finger, unspecified finger 12/07/2024 12:32 PM EST documented as of this encounter Visit Diagnoses Not on filedocumented in this encounter Administered Medications Active Administered Medications - up to 3 most recent administrations Medication Order MAR Action Action Date Dose Rate Site sodium chloride 0.9 % flush 10 mL 10 mL, intravenous, 2 times daily, First dose on Thu12/07/24 at 1230, Preprocedure sodium chloride 0.9 % flush 10 mL 10 mL, intravenous, As needed, line care, Starting on Thu12/07/24 at 1202, Preprocedure documented in this encounter Discontinued Medications Medication Sig Discontinue Reason Start Date End Da te tamsulosin (FLOMAX) 0.4 mg 24 hr capsule Take 0.4 mg by mouth daily. Take 30 mins after same meal every day. 11/07/2024 diclofenac (VOLTAREN) 50 mg EC tablet TOME DEBBIE TABLETA POR VIA ORAL DOS VECES AL FERNANDO CUANDO SEA NECESARIO PARA EL DOLOR CON ALIMENTO, DONT TAKE WITH IBUPROFEN 03/01/2024 11/07/2024 acetaminophen (TYLENOL) 500 mg tablet TOME DEBBIE TABLETA ABRAHAM VECES AL FERNANDO FOR PAIN 04/03/2023 12/07/2024 ibuprofen (ADVIL,MOTRIN) 600 mg tablet Take 1 Tablet by mouth every 8 hours as needed for Pain (Take with food. do not take with meloxicam) for up to 60 doses. 08/14/2023 12/07/2024 oxyCODONE (ROXICODONE) 5 mg immediate release tablet every 4 (four) hours if needed for severe pain. 12/07/2024 documented as of this encounter Historical Medications * This list may reflect changes made after this encounter. oxyCODONE (ROXICODONE) 5 mg immediate release tablet every 4 (four) hours if needed for severe pain. 12/07/2024 added in this encounter Active and Recently Administered Medications Times are shown in EST. Scheduled Medication Order 12/05/2024 12/06/2024 12/07/2024 ceFAZolin (ANCEF) 2 g in sterile water 20 mL IV syringe (COMPLETED) 2 g, intravenous, Administer over 3 Minutes, Once, On Thu12/07/24 at 1230, For 1 dose, Preprocedure, -IV Push over 3 minutes -Administer within 60 minutes of incision, Indication: Prophylaxis-Surgical 1245 (New Bag - Prov ider: Agnieszka Villatoro CRNA) sodium chloride 0.9 % flush 10 mL(Linked Group 1) 10 mL, intravenous, 2 times daily, First dose on Thu12/07/24 at 1230, Preprocedure 1230 (Due)2100 (Due) PRN Medication Order 12/05/2024 12/06/2024 12/07/2024 lidocaine-EPINEPHrine (XYLOCAINE W/EPI) 1 %-1:100,000 injection (CANCELED) As needed, Starting on Thu12/07/24 at 1254, Intraprocedure 1254 (Given - Provid er: Trista David MD - Comment: MIXED W SOD BICARB) sodium bicarbonate injection (CANCELED) As needed, Starting on Thu12/07/24 at 1254, Intraprocedure 1254 (Given - Provid er: Trista David MD - Comment: MIXED W LIDO 1% W EPI) sodium chloride 0.9 % flush 10 mL(Linked Group 1) 10 mL, intravenous, As needed, line care, Starting on Thu12/07/24 at 1202, Preprocedure Linked Groups Order Group 1: Insert peripheral IV STAT, Once, On Thu12/07/24 at 1203, For 1 occurrence, Preprocedure And Maintain IV access Until discontinued, Starting on Thu12/07/24 at 1203, Until Specified, Preprocedure And Saline lock IV Routine, Once, On Thu12/07/24 at 1203, For 1 occurrence, Preprocedure And sodium chloride 0.9 % flush 10 mLJump to med 10 mL, intravenous, 2 times daily, First dose on Thu12/07/24 at 1230, Preprocedure And sodium chloride 0.9 % flush 10 mLJump to med 10 mL, intravenous, As needed, line care, Starting on Thu12/07/24 at 1202, Preprocedure documented in this encounter Orders Medications Ordered That Aaron ht Not Have Been Administered Count Last Ordered Date First Ordered Date ceFAZolin (ANCEF) 2 g in earl rile water 20 mL IV syringe 1 12/07/2024 lidocaine-EPINEPHrine (XYLOC JULIO W/EPI) 1 %-1:100,000 injection 1 12/07/2024 sodium bicarbonate injection 1 12/07/2024 sodium chloride 0.9 % flush 10 mL 2 025 Diet Count Last Ordered Date First Orde red Date ADULT NPO DIET 1 12/07/2024 Nursing Count Last Ordered Date First Orde red Date MAINTAIN IV ACCESS 1 12/07/2024 MEASURE HEIGHT 1 12/07/2024 MEASURE WEIGHT 1 12/07/2024 PULSE OXIMETRY 1 12/07/2024 VITAL SIGNS 1 12/07/2024 Code Status Count Last Ordered Date First Orde red Date FULL CODE DEFAULT 1 12/07/2024 IV Count Last Ordered Date First Orde red Date INSERT PERIPHERAL IV 1 12/07/2024 SALINE LOCK IV 1 12/07/2024 Discharge Count Last Ordered Date First Orde red Date DISCHARGE PATIENT 1 12/07/2024 CORE MEASURES Count Last Ordered Date First Ord ered Date REASON FOR NO VTE PROPHYLAXI S - HOSPITAL ADMISSION - MECHANICAL 1 12/07/2024 documented in this encounter Care Teams Mold Changer Relationship Specialty Start Date End Date Ernie Merritt MD [address] [place] [address] [place] [address] PCP - General Internal Medicine 05/20/21 documented as of this encounter
--- OUTSIDE RECORDS SUMMARY | 2024-12-07 15:05 | XMS_ITS | Encounter Summary ---
Author Organization [employer] Address [address] [place] [address] 7t [place] [address] Care Team Providers Care Community Placement Worker Name Role Phone Ernie Noriega MD Primary Care Provide r Reason for Visit * Reason Onset Date Comments verbal order 11/21/2022 Encounter Details Date Type Department Care Team (Late Contact Info) Description 11/21/2022 Telephone [facility] MEDICINE [address] [place] [address] Ernie Noriega MD [address] [place] [address] verbal order Social History Tobacco Use Types [...] 1:08 PM EST Tc from Baldemar from [facility] calling to inform pt started home services today . Baldemar is also requesting a verbal order for pt to start physical therapy for 2x a week for 4 weeks . Best contact # [phone]. documented in this encounter Plan of Treatment Upcoming Encounters Date Type Department Care Team (Late Contact Info) Description 01/12/2025 3:00 PM EDT Office Visit [facility] MEDICINE [address] [facility] [place] [address] Ernie Noriega MD [address] [place] [address] documented as of this encounter Visit Diagnoses Not on filedocumented in this encounter Care Teams Community Placement Worker Relationship Specialty Start Date End Date Ernie Noriega MD [facility] [place] [address] PCP - General Internal Medicine 08/25/19 documented as of this encounter
--- OUTSIDE RECORDS SUMMARY | 2024-12-07 15:05 | XMS_ITS | Encounter Summary ---
Author Organization [facility] Address [address] [place] [address] Care Team Providers Care Hospital Tray Service Worker Name Role Phone Ernie Merritt MD Primary Care Provi [facility] Reason for Referral * Orthopedic (Routine) - Pending Review Specialty Diagnoses / Procedures Referred By Contac t Referred To Contact Orthopedic Surgery / Orthopaedic Surgery Diagnoses Rotator cuff arthropathy, left Procedures L Inj/Asp: L subacromial bursa Leroy Lees MD [address] [address] Phone: tel: fax: Referral ID Status Reason Start Date Expiration Date V isits Requested Visits Authorized [id number] Pending Review 11/23/2024 11/23/2025 1 1 Reason for Visit * Reason Comments Follow-up Encounter Details Date Type Department Care Team (Late st Contact Info) Description 11/23/2024 11:00 AM EST Office Visit Orthopedic Surgery - [place] [address] [address] Leroy Lees MD [address] [address] Rotator cuff arthropathy, left (Primary Dx) Social History Tobacco Use Types [...] Sign Reading Time Taken Comments Blood Pressure - - Pulse - - Temperature - - Respiratory Rate - - Oxygen Saturation - - Inhaled Oxygen Concentration - - Weight 73.9 kg (163 lb) 11/23/2024 10:47 AM EST Height 160 cm (5' 3 ) 11/23/2024 10:47 AM EST Body Mass Index 28.87 11/23/2024 10:47 AM EST documented in this encounter Progress Notes * Leroy Lees MD - 11/23/2024 11:00 AM ESTAssociated Order(s): L Inj/Asp: L subacromial bursa Post-Procedure Diagnose(s): Rotator cuff arthropathy, left Reason For Visit: Follow-up of the Left Shoulder Patient: Miguelina Julien : 1965 VISIT DATE: 11/23/2024 HPI: Miguelina Julien is a 59 y.o. year old female who presents follow up on her left shoulder. Known rotator cuff arthropathy. Last shoulder injection helped her for approximately 3 to 4 months. She does have an upcoming carpal tunnel surgery. She would like another subacromial injection today. ROS: GENERAL: negative MUSCULOSKELETAL: See HPI The remainder of the review of systems is noncontributory Allergies: No Known Allergies Past Medical History: has a past medical history of Arthritis, Asthma, Essential hypertension, and Joint pain. Social History: Social History Tobacco Use Smoking status: Never Smokeless tobacco: Never Substance Use Topics Alcohol use: Never Past Surgeries: Past Surgical History: Procedure Laterality Date CARPAL TUNNEL RELEASE Bilateral SHOULDER SURGERY Left at least 10 years ago (pre-2014?) Medications: No outpatient medications have been marked as taking for the 11/23/24 encounter (Office Visit) with Leroy Lees MD. Physical Exam: Vitals: 11/23/24 1047 Weight: 73.9 kg (163 lb) Height: 1.6 m (63 ) APPEARANCE: Alert, oriented, no acute distress LEFTSHOULDER SHOULDER EXAM: LEFT Inspection: Healed surgical scars. No signs of infection. Skin is normal. Palpation: Diffuse tenderness around the glenohumeral joint ROM: Active 130/20/L5 Passive 160/60/L5 Neurovascular: No gross deficits distally. Axillary nerve sensation intact. Strength: 3/5 supraspinatus, 3/5 infraspinatus, 3/5 subscapularis. She sets her deltoid well. Special Tests: Imaging: ORTHO X-RAY EXAM OF SHOULDER (2 VIEWS) Left shoulder x-rays July 20, 2024. AP, Grashey, Y lateral, axillary views. Located glenohumeral joint. Degenerative changes noted of the glenohumeral joint. No significant interval change from previous x-rays. Procedure: LEFTSHOULDER SUBACROMIAL SPACE INJECTION was performed under sterile conditions today. Patient tolerated procedure well. No complications encountered. L Inj/Asp: L subacromial bursa Indications: pain Details: 21 G needle, posterior approach Medications: 40 mg triamcinolone acetonide 40 mg/mL; 2 mL BUPivacaine HCl 0.5 %; 2 mL lidocaine 1 % Informed Consent: Site: Left Subacromial Laterality: Left Relevant images/test results available and reviewed: yes Health status cleared: Yes Procedure/treatment, purpose, treatment alternatives, risks/potential complications and benefits explained: yes Patient questions answered: yes Patient agrees, verbalizes understanding, and wants to proceed: yes Consent given by: Patient Informed consent discussion completed by Physician/KOBY with patient: Verbal Pre-procedure timeout performed: yes Assessment and Plan: 1. Rotator cuff arthropathy, left Persistently symptomatic shoulder. Is considering reverse arthroplasty. She would like to put this off for as long as possible. I agree. She is young for reverse arthroplasty and if she can manage her symptoms without surgery, that would be the preferred plan for now. Will proceed with her upcomingtrigger finger surgery. Once again reviewed reverse arthroplasty. If she decides she wants to proceed with surgery, she will contact us. We will need to reorder CT scan of her left shoulder as her previous one has . Physical Therapy: Perform HEP Leroy Lees MD documented in this encounter Plan of Treatment Upcoming Encounters Date Type Department Care Team (Late st Contact Info) Description 12/16/2024 11:00 AM EST Office Visit Orthopedic Surgery - [address] [place] [address] Nicolasa Yu PA [address] [facility] [address] [place] [address] Scheduled Procedures Name Priority Associated Diagnoses Date/Ti me RELEASE TRIGGER FINGER Trigger finger, unspecified finger 12/07/2024 12:32 PM EST documented as of this encounter Procedures Procedure Name Priority Date/Time Associated Diagnosis Comments OK ARTHROCENTESIS/ASPI RATION/INJECTION MAJOR JOINT/BURSA W/O U/S GUIDANCE Routine 11/23/2024 11:00 AM EST Rotator cuff arthropathy, left documented in this encounter Results * OK ARTHROCENTESIS/ASPIRATION/INJECTION MAJOR JOINT/BURSA W/O U/S GUIDANCE (11/23/2024 [...] MD IN CLINIC/BEDSIDE ORDERABLES F inal Result documented in this encounter Visit Diagnoses Diagnosis Rotator cuff arthropathy, left- Primary documented in this encounter Administered Medications Inactive Administered Medications - up to 3 most recent administrations Medication Order MAR Action Action Date Dose Rate Site BUPivacaine HCl (MARCAINE) 0.5 % injection 2 mL 2 mL, injection, Once PRN Procedure, Starting on Thu11/23/24 at 1100, For 1 doseIndications:Rotator cuff arthropathy, left Given 11/23/2024 11:00 AM EST 2 mL lidocaine (XYLOCAINE) 1 % injection 2 mL 2 mL, injection, Once PRN Procedure, Starting on Thu11/23/24 at 1100, For 1 doseIndications:Rotator cuff arthropathy, left Given 11/23/2024 11:00 AM EST 2 mL triamcinolone acetonide (KENALOG-40) 40 mg/mL injection 40 mg 40 mg, Other, Once PRN Procedure, Starting on Thu11/23/24 at 1100, For 1 doseIndications:Rotator cuff arthropathy, left Given 11/23/2024 11:00 AM EST 40 mg documented in this encounter Care Teams Hospital Tray Service Worker Relationship Specialty Start Date End Date Ernie Merritt MD [address] [place] [address] [place] [address] PCP - General Internal Medicine 05/20/21 documented as of this encounter
--- NOTE | 2024-12-08 12:27 | HO.ANESPROP2 ---
Documented by User: Sara Zaldivar NP 12/08/24 12:29 HPI - Anesthesia Eval Consult details Narrative: 59yo F for Caudal Epidural Steroid Injection with catheter PMFSH Active Problems Active Problems: All Active Problems Arachnoid cyst of spine (Acute) Epidural adhesions (Acute) Abnormal MRI, thoracic spine (Acute) Spondylolisthesis of thoracolumbar region (Acute) Thoracic radiculopathy (Acute) Degenerative thoracic spinal stenosis (Acute) Chronic low back pain (Acute) Lumbar spinal stenosis (Acute) Lumbar post-laminectomy syndrome (Acute) Back pain (Acute) Encounter for well woman exam with routine gynecological exam (Acute) Status post total right knee replacement (Acute) Encounter for preoperative pulmonary examination (Acute) Varicose veins of right lower extremity with inflammation (Acute) Pain in knee region after replacement of knee joint (Acute) Shoulder pain (Acute) Incomplete bladder emptying (Acute) Voiding dysfunction (Acute) Shoulder pain, left (Acute) Back pain (Acute) Slowing of urinary stream (Acute) SOB (shortness of breath) (Acute) Precordial chest pain (Acute) Encounter for annual routine gynecological examination (Acute) Dyspnea on exertion (Acute) Post-COVID syndrome (Acute) COVID (Acute) Rotator cuff impingement syndrome of right shoulder (Acute) Environmental allergies (Acute) Trigger finger, left middle finger (Acute) Trigger finger, left index finger (Acute) Status post left knee replacement (Acute) History of total right knee replacement (Acute) Hesitancy of micturition (Acute) Moderate persistent asthma (Acute) Past Medical History Medical History (Updated 12/07/24 @ 13:29 by Bijal Cisneros RN) Right-sided ischial pain Tubular adenoma of colon Hematuria Dysuria Overweight Varicose vein of leg Chronic tension-type headache, not intractable Neuropathic pain Hyperlipidemia Carpal tunnel syndrome Cervical radiculopathy Depressive disorder Diverticulosis HTN (hypertension) Osteoarthritis Asthma Essential hypertension Low back pain Pre-diabetes Seasonal allergies GERD (gastroesophageal reflux disease) Post-COVID syndrome COPD (chronic obstructive pulmonary disease) Arthritis Anxiety Depression Hesitancy of micturition Moderate persistent asthma Family History Family History Mother Heart disease Sister HTN (hypertension) Sister HTN (hypertension) Diabetes Maternal Grandmother Cervical cancer Family history of problems with anesthesia: No Surgical History Surgical History (Updated 12/09/24 @ 08:36 by Lilly Kidd RN) History of carpal tunnel release Hx of eye surgery Hx of cataract extraction Hx of shoulder surgery History of carpal tunnel surgery of right wrist H/O colonoscopy History of total right knee replacement History of back surgery History of total left knee replacement (~06/2020) History of Problems with Anesthesia: No Social History Social History Household Members: Spouse Housing: House Are you a primary healthcare specialist to a significant other at home: No Do you presently have visiting nurse or other home services: No Alcohol intake: never Comment: in bathroom, aware of trip hazard Patient Tobacco Use Status: Former Tobacco user Tobacco use type: Cigarette Second Hand Smoke Exposure: No Substance Use Type: Marijuana Advance Directives: No Advance Directives Information Provided: Yes Advance Directives Date on File: 12/17/21 service: No Current occupational status: unemployed Current occupation: Right Handed Gender identity: Female Meds Allergies Allergy/AdvReac Type Severity Reaction Status Date / Time No Known Allergies Allergy Verified 11/08/24 15:21 Home Medications ?Medication ?Instructions ?Recorded ?Confirmed ?Last Taken ?Type hydrochlorothiazide 25 mg tablet 25 mg PO DAILY 12/03/21 12/09/24 12/08/24 History montelukast 10 mg tablet 10 mg PO BEDTIME 12/03/21 12/07/24 Unknown History omeprazole 20 mg capsule,delayed 20 mg PO DAILY 12/03/21 12/07/24 02/03/24 History release zolpidem 10 mg tablet 10 mg PO BEDTIME PRN Insomnia 12/03/21 12/07/24 02/02/24 History albuterol sulfate 2.5 mg/3 mL 2.5 mg inhalation Q6-8H PRN 12/10/21 12/07/24 Unknown History (0.083 %) solution for nebulization Shortness Of Breath escitalopram oxalate 5 mg tablet 5 mg PO QAM 09/02/22 12/07/24 Unknown History lidocaine 5 % topical patch 1 - 2 patch topical Q12H PRN pain 09/02/22 12/07/24 Unknown History (Lidoderm) multivitamin 1 tab PO DAILY 01/20/24 12/07/24 Unknown History acetaminophen 500 mg tablet 500 mg PO Q12H PRN pain 08/03/24 12/07/24 Unknown History diclofenac potassium 50 mg tablet 50 mg PO BID 08/03/24 12/07/24 Unknown History diphenhydramine HCl 25 mg capsule 25 - 50 mg PO BEDTIME 08/03/24 12/07/24 Unknown History (Banophen) fluticasone propionate 50 2 spray intranasal BID 08/03/24 12/07/24 Unknown History mcg/actuation nasal spray,suspension gabapentin 300 mg capsule 300 mg PO TID 08/03/24 12/07/24 Unknown History omega 0-jub-wfi-fish oil 1,000 mg 1 cap PO DAILY 08/03/24 12/09/24 11/30/24 History (120 mg-180 mg) capsule (Fish Oil) valacyclovir 1 gram tablet 2,000 mg PO BID 08/03/24 12/07/24 Unknown History Exam Height,Weight and Vital Signs: Height 5 ft 3 in Weight 73.936 kg Pertinent Lab Results Pertinent Lab Results: Laboratory Tests 02/04/24 05:46 WBC 11.8 H Hgb 10.5 L Hct 32.4 L Plt Count 276 Sodium 141 Potassium 3.8 Chloride 108 Carbon Dioxide 29 BUN 17 H Creatinine 0.68 Narrative Narrative: EKG 2023 Vent. Rate : 052 BPM Atrial Rate : 052 BPM P-R Int : 166 ms QRS Dur : 102 ms QT Int : 408 ms P-R-T Axes : 024 012 030 degrees QTc Int : 379 ms Sinus bradycardia Minimal voltage criteria for LVH, may be normal variant ( Ace product ) Nonspecific T wave abnormality Abnormal ECG When compared with ECG of 11-MAY-2021 13:42, No significant change was found Assessment and Plan Assessment Anesthesia Assessment: Chart Reviewed Final Anesthetic Review Family History of Problems with Anesthesia: No History of Problems with Anesthesia: No Documented by User: Yarelis Baker MD 12/09/24 08:54 [facility] Past Medical History Medical History (Updated 12/07/24 @ 13:29 by Bijal Cisneros RN) Right-sided ischial pain Tubular adenoma of colon Hematuria Dysuria Overweight Varicose vein of leg Chronic tension-type headache, not intractable Neuropathic pain Hyperlipidemia Carpal tunnel syndrome Cervical radiculopathy Depressive disorder Diverticulosis HTN (hypertension) Osteoarthritis Asthma Essential hypertension Low back pain Pre-diabetes Seasonal allergies GERD (gastroesophageal reflux disease) Post-COVID syndrome COPD (chronic obstructive pulmonary disease) Arthritis Anxiety Depression Hesitancy of micturition Moderate persistent asthma Family History Family History Mother Heart disease Sister HTN (hypertension) Sister HTN (hypertension) Diabetes Maternal Grandmother Cervical cancer Surgical History Surgical History (Updated 12/09/24 @ 08:36 by Lilly Kidd RN) History of carpal tunnel release Hx of eye surgery Hx of cataract extraction Hx of shoulder surgery History of carpal tunnel surgery of right wrist H/O colonoscopy History of total right knee replacement History of back surgery History of total left knee replacement (~06/2020) History of Problems with Anesthesia: No Social History Social History Household Members: Spouse Housing: House Are you a primary healthcare specialist to a significant other at home: No Do you presently have visiting nurse or other home services: No Alcohol intake: never Comment: in bathroom, aware of trip hazard Patient Tobacco Use Status: Former Tobacco user Tobacco use type: Cigarette Second Hand Smoke Exposure: No Substance Use Type: Marijuana Advance Directives: No Advance Directives Information Provided: Yes Advance Directives Date on File: 12/17/21 service: No Current occupational status: unemployed Current occupation: Right Handed Gender identity: Female Meds Allergies Allergy/AdvReac Type Severity Reaction Status Date / Time No Known Allergies Allergy Verified 11/08/24 15:21 Home Medications ?Medication ?Instructions ?Recorded ?Confirmed ?Last Taken ?Type hydrochlorothiazide 25 mg tablet 25 mg PO DAILY 12/03/21 12/09/24 12/08/24 History montelukast 10 mg tablet 10 mg PO BEDTIME 12/03/21 12/07/24 Unknown History omeprazole 20 mg capsule,delayed 20 mg PO DAILY 12/03/21 12/07/24 02/03/24 History release zolpidem 10 mg tablet 10 mg PO BEDTIME PRN Insomnia 12/03/21 12/07/24 02/02/24 History albuterol sulfate 2.5 mg/3 mL 2.5 mg inhalation Q6-8H PRN 12/10/21 12/07/24 Unknown History (0.083 %) solution for nebulization Shortness Of Breath escitalopram oxalate 5 mg tablet 5 mg PO QAM 09/02/22 12/07/24 Unknown History lidocaine 5 % topical patch 1 - 2 patch topical Q12H PRN pain 09/02/22 12/07/24 Unknown History (Lidoderm) multivitamin 1 tab PO DAILY 01/20/24 12/07/24 Unknown History acetaminophen 500 mg tablet 500 mg PO Q12H PRN pain 08/03/24 12/07/24 Unknown History diclofenac potassium 50 mg tablet 50 mg PO BID 08/03/24 12/07/24 Unknown History diphenhydramine HCl 25 mg capsule 25 - 50 mg PO BEDTIME 08/03/24 12/07/24 Unknown History (Banophen) fluticasone propionate 50 2 spray intranasal BID 08/03/24 12/07/24 Unknown History mcg/actuation nasal spray,suspension gabapentin 300 mg capsule 300 mg PO TID 08/03/24 12/07/24 Unknown History omega 4-pbz-ips-fish oil 1,000 mg 1 cap PO DAILY 08/03/24 12/09/24 11/30/24 History (120 mg-180 mg) capsule (Fish Oil) valacyclovir 1 gram tablet 2,000 mg PO BID 08/03/24 12/07/24 Unknown History Exam Airway Mallampati Class: II TM Dist: >3cm Neck ROM: Full Heart: rrr Lungs: cta Assessment and Plan Assessment Anesthesia Assessment: Anesthesia Plan Discussed Final Anesthetic Review History of Problems with Anesthesia: No NPO: Yes ASA Class: II Final Preanesthetic Review: No Changes in Pt Med Stat, Meds/Allgs Chart Reviewed and Consent Obtained/Reviewed Patient Risk: Low Procedure Risk: Low Anesthetic Plan Anesthetic Plan: MAC: Disposition: Standard PACU
--- NOTE | ~2024-12-09 | FL_ITS ---
EXAMINATION: FL GUIDANCE ONLY HISTORY: caudal epidural steroid injection COMPARISON: None available. TECHNIQUE: Fluoroscopy time: 16.6 seconds. Cumulative Dose: 11.461 mGy. DAP: 4.1886 mGym2 Images: 2. FINDINGS: Images demonstrate a needle at the dorsal aspect of the lower sacrum. FL/FL guidance in OR IMPRESSION: Fluoroscopy during procedure. Please see procedure report for additional information. Electronically signed by: Rodrick Williamson MD 12/09/2024 09:45 AM [facility]
[2024-12-09 08:38] VITALS: BP 120/82; PULSE 56; RESP 16; TEMP 36.6; O2SAT 96
[2024-12-09 08:41] VITALS: BMI 28.9
--- NOTE | 2024-12-09 08:52 | MHC.SHP ---
Pre-Procedural Eval Section A - 24 Hr Update-Section A only Date of Service: 12/09/24 The patient is an INPATIENT: No Changes since office visit: Yes Patient answered all questions The patient has been examined within 24 hours of the surgical procedure. The History & Physical has been completed within 30 days and I have reviewed it.: No Section B - Complete if H&P > 30 days Chief Complaint: Postlaminectomy syndrome, not elsewhere classified Details of Present Illness: as above Relevant Family History (Specify if Yes): No Relevant Social History: None Present Medications: None Medical History: No relevant PMH History of Previous Operations: Relevant previous surgery/procedure and date(s) Allergies: Allergies Allergy/AdvReac Type Severity Reaction Status Date / Time No Known Allergies Allergy Verified 11/08/24 15:21 Review of Systems Sugical H&P ROS: Negative: Constitution, Cardiovascular, Psychiatric, Hem-Onc, Allergic/Immunologic, Gastrointestinal, Integumentary, Endocrine and Eyes/Ears/Nose/Throat and Yes, Specify: Respiratory ( post COVID syndrome, moderate persistent asthma), Neurological ( arachnoid cyst of spine), Genitourinary ( voiding dysfunction) and Musculoskeletal ( postlaminectomy syndrome) Exam Surgical H&P Exam: Normal: HEENT, Normal: Heart, Normal: Lungs, Normal: Extremities, Normal: Abdomen, Normal: Skin and Normal: Neurological Plan Diagnosis/Plan: Unchanged I have reviewed the history and physical and performed a pertinent physical examination on my patient. No changes have occurred unless specified. Time Spent With Patient Time: Total time managing care of this patient today ____ minutes.
[2024-12-09] MEDS: Lactated Ringers 1,000 ML 100 ML IVCONT (08:57)
--- NOTE | 2024-12-09 09:01 | PC.NURSE ---
Patient arrived to preop. General Claims Agent at bedside. Left hand wrapped in ABD and tape. Per patient I had carpal tunnel release two days ago at [facility] . Hand pain per patient currently 07/21. Dr. Casas at bedside to discuss with patient. Question about steroid use and healing of hand post op. Both him and patient agreed to proceed with surgery today.
[2024-12-09 09:35] VITALS: BP 107/57; PULSE 49; RESP 16; TEMP 36.5; O2SAT 93
--- NOTE | 2024-12-09 09:35 | P.BOP_ITS ---
Brief Operative Note Date of Service: 12/09/24 Pre-op diagnosis: postlaminectomy seen Post-op diagnosis: same Procedure: caudal epidural steroid injection with catheter Surgeon: Aldo Casas MD Anesthesia: MAC Was an Engineering Illustrator used for this Procedure?: No Estimated blood loss (mL): 0 Condition: stable Disposition: PACU
--- NOTE | 2024-12-09 09:38 | W.PM.OPN ---
Operative Note Operative Note Date of Service: 12/02/24 Narrative: Caudal NIC with catheter After obtaining informed consent the patient was taken to the operating room where she was position on operating table prone.? ASA monitors applied and patient was moderately sedated ?Time-out was performed delineating correct site, side, the nature of the procedure, patient's allergy need for antibiotic therapy.? All operating room staff was participating in OR time-out procedure.? Her lower back, bilateral buttocks and intergluteal cleft were thoroughly prepped with ChloraPrep and draped with sterile self adhesive utility towels.? Fluoroscopy C-arm was brought over the operating field and picture of midline sacral bone superimposing on symphysis pubis was obtained on the C-arm screen.? After that the position of the C-arm was turned into the lateral.? The position of sacral hiatus was noted on the screen.? 2.5 cm below the sacral hiatus opening local anesthetic lidocaine 2% 3 cc was injected into the skin with 25 gauge 1/2 inch needle.? After that 10 cm 18 gauge Touhy needle was inserted through the skin and advanced into the opening of sacral hiatus on intermittent anterior posterior and lateral views.? When needle entered the sacral canal injection of the contrast performed into the needle demonstrating epidural spread of the contrast.? After that 22 gauge epidural catheter was inserted through the needle and it was advanced into the epidural space until resistance was met. Injection of the contrast was repeated into the catheter this time and spread of the contrast was detected in L5-S1 epidural space mostly to the left. After that injection of the 30 cc of normal saline performed into the catheter, upon completion of the injection of the normal saline injection of the lidocaine 1% preservative-free mixed with Kenalog 40 mg into the catheter. Upon completion of the injection catheter was withdrawn and needle were withdrawn EN mass. Tip of the catheter was intact. After that dressing with bacitracin and sterile 4x4s was applied to the skin using Medipore tape. The patient tolerated procedure well she was awakened and transferred stable to PACU.
[2024-12-09 09:40] VITALS: BP 112/66; PULSE 46; RESP 13; O2SAT 92
[2024-12-09 09:45] VITALS: BP 120/65; PULSE 45; RESP 10; O2SAT 92
[2024-12-09 09:50] VITALS: BP 128/66; PULSE 49; RESP 14; O2SAT 100
[2024-12-09 10:05] VITALS: BP 128/61; PULSE 51; RESP 16; TEMP 36.8; O2SAT 97
== END 2024-12-09 10:38 | disposition home or self-care (01) ==
PROVIDERS: PCP Family Medicine; Visit Provider Anesthesiology
PROC: 3E0R3GC Introduction of Other Therapeutic Substance into Spinal Canal, Percutaneous Approach (ICD-10-PCS; CPT 62322; principal; 2024-12-09 09:50)
DX: M96.1 Postlaminectomy syndrome, not elsewhere classified (principal); M48.061 Spinal stenosis, lumbar region without neurogenic claudication; M48.04 Spinal stenosis, thoracic region; Z91.81 History of falling; G89.29 Other chronic pain; M54.50 Low back pain, unspecified; M43.15 Spondylolisthesis, thoracolumbar region; G96.12 Meningeal adhesions (cerebral) (spinal); G62.9 Polyneuropathy, unspecified; J45.40 Moderate persistent asthma, uncomplicated; I10 Essential (primary) hypertension; R73.03 Prediabetes; Z98.1 Arthrodesis status; Z98.890 Other specified postprocedural states
CPT/HCPCS: 62323; J2003; J2250; J2704; J3010; J3301; Q9965

== ENCOUNTER → 2024-12-09 08:11 | Outpatient (BNV) | payer MEDICAID, SELFPAY | PROVIDERS: PCP Family Medicine; Visit Provider Anesthesiology | DX: M96.1 Postlaminectomy syndrome, not elsewhere classified (principal) | CPT/HCPCS: 62323 ==

== ENCOUNTER 2024-12-21 09:41 | Outpatient (REF) | payer MEDICAID, SELFPAY ==
--- NOTE | ~2024-12-21 | XR_ITS ---
EXAMINATION: XR FOOT 3 OR MORE VIEWS RIGHT HISTORY: atraumatic pain and swelling in dorsal surface of right foot. COMPARISON: There are no prior studies available for comparison. FINDINGS: Three views of the right foot are submitted. Osseous mineralization is normal. There is no fracture or dislocation. The joint spaces are preserved. The soft tissues are unremarkable. XR/XR foot RT min 3V IMPRESSION: Unremarkable examination of the right foot. Electronically signed by: Rodrick Williamson MD 12/21/2024 10:00 AM EDT
--- OUTSIDE RECORDS SUMMARY | 2024-12-21 10:42 | XMS_ITS | Encounter Summary ---
Author Organization [employer] Address [address] [place] [address] [address] [place] [address] Care Team Providers Care Volunteer Firefighter Name Role Phone Ernie Noriega MD Primary Care Provide r Reason for Visit * Reason Comments Med Refill Encounter Details Date Type Department Care Team ([facility] st Contact Info) Description 08/10/2023 Refill [facility] [address] [place] [address] Ernie Noriega MD [address] [place] [address] Primary osteoarthritis of knee, unspecified laterality; Chronic [...] Description 01/12/2025 3:00 PM EDT Office Visit [facility] [address] [place] [id number] Ernie Noriega MD [address] [place] [phone] documented as of this encounter Visit Diagnoses Diagnosis Primary osteoarthritis of knee, unspecified laterality Chronic midline low back pain without sciatica Cervical radiculopathy Brachial neuritis or radiculitis nos Pain Generalized pain documented in this encounter Additional Health Concerns Assessment Noted Time PHQ-9 Depression Total Score: 0 12/02/19 23 2:38 PM EST documented as of this encounter Care Teams Volunteer Firefighter Relationship Specialty Start Date End Date Ernie Noriega MD [address] [place] [id number] PCP - General Internal Medicine 08/25/19 documented as of this encounter
--- OUTSIDE RECORDS SUMMARY | 2024-12-21 10:42 | XMS_ITS | Encounter Summary ---
Author Organization [employer] Address [address] [place] [address] 7t [place] [address] Care Team Providers Care Fishery Division Chief Name Role Phone Ernie Noriega MD Primary Care Provide r Reason for Visit * Reason Onset Date Comments Med Refill 10/25/2024 Encounter Details Date Type Department Care Team ([facility] st Contact Info) Description 10/25/2024 Refill [facility] [address] [place] [address] Ernie Noriega MD 230 [place] [address] Chronic midline low back pain without sciatica [...] EDT Office Visit [facility] [address] [place] [address] Ernie Noriega MD [address] [place] [address] documented as of this encounter Visit Diagnoses Diagnosis Chronic midline low back pain without sciatica documented in this encounter Additional Health Concerns Assessment Noted Time PHQ-9 Depression Total Score: 2 01/21/20 24 1:25 PM EDT documented as of this encounter Care Teams Fishery Division Chief Relationship Specialty Start Date End Date Ernie Noriega MD [address] [place] [address] PCP - General Internal Medicine 08/25/19 documented as of this encounter
--- OUTSIDE RECORDS SUMMARY | 2024-12-21 10:42 | XMS_ITS | Encounter Summary ---
Author Organization [employer] Address [address] [place] [address] 7t [place] [address] Care Team Providers Care Tree Wrapper Name Role Phone Ernie Noriega MD Primary Care Provide r Reason for Visit * Reason Onset Date Comments Med Refill 03/15/2024 Encounter Details Date Type Department Care Team ([facility] st Contact Info) Description 03/15/2024 Refill [facility] [address] [place] [address] Ofelia Melgar MD [address] [place] [address] Chronic midline low back pain without sciatica; [...] Description 01/12/2025 3:00 PM EDT Office Visit [facility] [address] [place] [address] Ernie Noriega MD [address] [place] [address] documented as of this encounter Visit Diagnoses Diagnosis Chronic midline low back pain without sciatica Cervical radiculopathy Brachial neuritis or radiculitis nos documented in this encounter Additional Health Concerns Assessment Noted Time PHQ-9 Depression Total Score: 2 01/21/20 24 1:25 PM EDT documented as of this encounter Care Teams Tree Wrapper Relationship Specialty Start Date End Date Ernie Noriega MD [address] [place] [address] PCP - General Internal Medicine 08/25/19 documented as of this encounter
--- OUTSIDE RECORDS SUMMARY | 2024-12-21 10:42 | XMS_ITS | Encounter Summary ---
Author Organization [employer] Address [address] [place] [address] 7t [place] [address] Care Team Providers Care Laundry Routeman Name Role Phone Ernie Noriega MD Primary Care Provide r Reason for Visit * Reason Onset Date Comments Med Refill 08/13/2024 Encounter Details Date Type Department Care Team ([facility] st Contact Info) Description 08/13/2024 Refill [facility] [address] [place] [address] Ernie Noriega MD [address] [place] [address] Seasonal allergies Social History Tobacco Use Types [...] Description 01/12/2025 3:00 PM EDT Office Visit [facility] [address] [place] [address] Ernie Noriega MD [address] [place] [address] documented as of this encounter Visit Diagnoses Diagnosis Seasonal allergies Allergic rhinitis, cause unspecified documented in this encounter Additional Health Concerns Assessment Noted Time PHQ-9 Depression Total Score: 2 01/21/20 24 1:25 PM EDT documented as of this encounter Care Teams Laundry Routeman Relationship Specialty Start Date End Date Ernie Noriega MD [address] [place] [address] PCP - General Internal Medicine 08/25/19 documented as of this encounter
--- OUTSIDE RECORDS SUMMARY | 2024-12-21 10:42 | XMS_ITS | Encounter Summary ---
Author Organization [employer] Address [address] [place] [address] 7t [place] [address] Care Team Providers Care Silk Screen Frame Assembler Name Role Phone Ernie Noriega MD Primary Care Provide r Reason for Visit * Reason Onset Date Comments Med Refill 11/01/2024 Encounter Details Date Type Department Care Team ([facility] st Contact Info) Description 11/01/2024 Refill [facility] 230 [place] [address] Sugar Mitchell MD [address] [place] [address] Seasonal allergies Social History Tobacco Use Types [...] Office Visit [facility] [address] [place] [address] Ernie Noriega MD [address] [place] [address] documented as of this encounter Visit Diagnoses Diagnosis Seasonal allergies Allergic rhinitis, cause unspecified documented in this encounter Additional Health Concerns Assessment Noted Time PHQ-9 Depression Total Score: 2 01/21/20 24 1:25 PM EDT documented as of this encounter Care Teams Silk Screen Frame Assembler Relationship Specialty Start Date End Date Ernie Noriega MD [address] [place] [address] PCP - General Internal Medicine 08/25/19 documented as of this encounter
--- OUTSIDE RECORDS SUMMARY | 2024-12-21 10:42 | XMS_ITS | Encounter Summary ---
Author Organization [facility] Address [address] [place] [address] Care Team Providers Care Human Service Technician Name Role Phone Ernie Merritt MD Primary Care Provi bobo Reason for Visit * Reason Comments Post-op Encounter Details Date Type Department Care Team ([facility] st Contact Info) Description 12/16/2024 11:00 AM EST Office Visit Orthopedic Surgery - [place] [address] [place] [phone] Nicolasa Yu PA [address] [place] [phone] S/P trigger finger release (Primary Dx) Social History Tobacco Use Types [...] as of this encounter Progress Notes * TINA Miles - 12/16/2024 11:00 AM EST Patient: Miguelina Julien : 1965 VISIT DATE: 12/16/2024 HPI: Wily is a 59 y.o. year old female who presents for post-operative follow- up. Patient underwent left index finger A1 erika release with Dr. David on 12/07/2024. Patient is doing well with minimal pain. No triggering. Physical Exam: Surgical incision site is clean dry and intact, all sutures removed. She can make a full fist no signs of infection Images: None Assessment and Plan: 1. S/P trigger finger release Patient is status post the above doing well. Discussed slowly resuming regular activities to tolerance. She does not need any therapy. She is not working. No follow-up needed but if there is any problems with the surgical site she knows to call the office. There are no diagnoses linked to this encounter. TINA Miles documented in this encounter Plan of Treatment Not on file documented as of this encounter Visit Diagnoses Diagnosis S/P trigger finger release- Primary documented in this encounter Care Teams Human Service Technician Relationship Specialty Start Date End Date Ernie Merritt MD [address] [place] [address] PCP - General Internal Medicine 05/20/21 documented as of this encounter
--- OUTSIDE RECORDS SUMMARY | 2024-12-21 10:42 | XMS_ITS | Encounter Summary ---
Author Organization [employer] Address [address] [place] [address] 7t [place] [address] Care Team Providers Care Collar Tailor Name Role Phone Ernie Noriega MD Primary Care Provide r Reason for Visit * Reason Onset Date Comments Med Refill 06/25/2024 Encounter Details Date Type Department Care Team ([facility] st Contact Info) Description 06/25/[address] [facility]INE 230 [place] [address] Ernie Noriega MD [address] [place] [address] Chronic midline low back pain without sciatica; [...] [facility] [address] [place] [address] Ernie Noriega MD [address] [place] [address] documented as of this encounter Visit Diagnoses Diagnosis Chronic midline low back pain without sciatica Cervical radiculopathy Brachial neuritis or radiculitis nos documented in this encounter Additional Health Concerns Assessment Noted Time PHQ-9 Depression Total Score: 2 01/21/20 24 1:25 PM EDT documented as of this encounter Care Teams Collar Tailor Relationship Specialty Start Date End Date Ernie Noriega MD [address] [place] [address] PCP - General Internal Medicine 08/25/19 documented as of this encounter
--- OUTSIDE RECORDS SUMMARY | 2024-12-21 10:42 | XMS_ITS | Encounter Summary ---
Author Organization [employer] Address [address] [facility] 7t [place] [address] Care Team Providers Care Mender Hand Name Role Phone Ernie Noriega MD Primary Care Provide r Reason for Visit * Reason Comments Foot Swelling Encounter Details Date Type Department Care Team ([facility] st Contact Info) Description 12/21/2024 9:00 AM EDT Office Visit [facility] 230 [place], [place] [phone] Right foot pain (Primary Dx); Ecchymoses, spontaneous Social History Tobacco Use Types Packs/Day Years [...] Sign Reading Time Taken Comments Blood Pressure 128/75 12/21/2024 8:58 AM EDT Pulse 70 12/21/2024 8:58 AM EDT Temperature 36.6 ??C (97.9 ??F) 12/21/2024 8:58 AM ED T Respiratory Rate 17 12/21/2024 8:58 AM EDT Oxygen Saturation 96% 12/21/2024 8:58 AM EDT Inhaled Oxygen Concentration - - Weight 75.6 kg (166 lb 9.6 oz) 12/21/2024 8:58 A M EDT Height - - Body Mass Index 29.51 10/13/2024 2:49 PM EST documented in this encounter Plan of Treatment Upcoming Encounters Date Type Department Care Team (Late st Contact Info) Description 01/12/2025 3:00 PM EDT Office Visit [facility] [address] [place] [address] Ernie Noriega MD [address] [place] [address] Scheduled Orders Name Type Priority Associated Diagnoses Orde r Schedule Uric acid Lab Routine Right foot pain Expected: 12/21/2024 (Approximate), Expires: 12/21/2025 Lyme Disease Ab with Reflex to Blot (IgG, IgM) Lab Routine Right foot pain Expected: 12/21/2024, Expires: 12/21/2025 CBC auto differential Lab Routine Right foot pain Expected: 12/21/2024 (Approximate), Expires: 12/21/2025 Prothrombin Time-INR Lab Routine Right foot pain Expected: 12/21/2024 (Approximate), Expires: 12/21/2025 Partial Thromboplastin Time, Activated (APTT) Lab Routine Right foot pain Expected: 12/21/2024, Expires: 12/21/2025 documented as of this encounter Procedures Procedure Name Priority Date/Time Associated Diagnosis Comments XR FOOT 3+ VIEWS RIGHT Routine 12/21/2024 9:42 AM EDT Right foot pain documented in this encounter Results * XR Foot 3+ Views Right (12/21/2024 9:42 AM EDT) Anatomical Region Laterality Modality Lower Extremities, Foot Right Radiogra phic Imaging 12/21/2024 9:42 AM EDT Narrative 12/21/2024 10:03 AM EDT ?[facility] ?[address] ?[place] [address] ?XRay Report ? Signed ? Patient: Miguelina Julien ?MR#: [id number] ?? 12 ? : 1965 ?Acct:[id number] ? Age/Sex: 59 / F ?ADM Date: 12/21/24 ? Loc: HO.HHCX ? Attending Dr: Marty Haney MD ? Ordering Physician: MARTY HANEY MD ?? Date of Service: 12/21/24 ?? Procedure(s): XR foot RT min 3V ?? Accession Number(s): [id number] ? cc: MARTY HANEY MD ? EXAMINATION: ??XR FOOT 3 OR MORE VIEWS RIGHT ? HISTORY: atraumatic pain and swelling in dorsal surface of right foot. ? COMPARISON: There are no prior studies available for comparison. ? FINDINGS: ? Three views of the right foot are submitted. ??Osseous mineralization is ?? normal. ??There is no fracture or dislocation. ??The joint spaces are ?? preserved. ??The soft tissues are unremarkable. ? XR/XR foot RT min 3V ?? IMPRESSION: ? Unremarkable examination of the right foot. ? Electronically signed by: ??Rodrick Williamson MD ??12/21/2024 10:00 AM EDT ?? RP ? Dictated By: ?Rodrick Williamson MD ? Signed By: ?<Electronically signed by Rodrick Williamson MD in OV> ?12/21/24 1000 ? DD/ 0942 ? TD/TT: 12/21/24 0956 ? Customer Support Representative: ? Procedure Note Donotuseinterpreter, Image - 12/21/[address] [address] XRay Report Signed Patient: Miguelina JulienMR#: [id number] 12 : 1965Acct:[id number] Age/Sex: 59 / FADM Date: 12/21/24 Loc: .HHCX Attending Dr: Marty Haney MD Ordering Physician: MARTY HANEY MD Date of Service: 12/21/24 Procedure(s): XR foot RT min 3V Accession Number(s): [id number] cc: MARTY HANEY MD EXAMINATION: XR FOOT 3 OR MORE VIEWS RIGHT HISTORY: atraumatic pain and swelling in dorsal surface of right foot. COMPARISON: There are no prior studies available for comparison. FINDINGS: Three views of the right foot are submitted. Osseous mineralization is normal. There is no fracture or dislocation. The joint spaces are preserved. The soft tissues are unremarkable. XR/XR foot RT min 3V IMPRESSION: Unremarkable examination of the right foot. Electronically signed by: Rodrick Williamson MD 12/21/2024 10:00 AM EDT Dictated By: Rodrick Williamson MD Signed By: <Electronically signed by Rodrick Williamson MD in OV> 12/21/24 1000 DD/ 0942 TD/TT: 12/21/24 0956 Customer Support Representative: Marty Haney MD IMG XR PROCEDURES Final Result documented in this encounter Visit Diagnoses Diagnosis Right foot pain- Primary Pain in soft tissues of limb Ecchymoses, spontaneous documented in this encounter Additional Health Concerns Assessment Noted Time PHQ-9 Depression Total Score: 2 01/21/20 24 1:25 PM EDT documented as of this encounter Care Teams Mender Hand Relationship Specialty Start Date End Date Ernie Noriega MD [address] [place] [address] PCP - General Internal Medicine 08/25/19 documented as of this encounter
--- OUTSIDE RECORDS SUMMARY | 2024-12-21 10:42 | XMS_ITS | Encounter Summary ---
Author Organization [employer] Address [address] [place] [address] 7t [place] [address] Care Team Providers Care Cytology Teacher Name Role Phone Ernie Noriega MD Primary Care Provide r Reason for Visit * Reason Onset Date Comments Med Refill 04/16/2024 Encounter Details Date Type Department Care Team ([facility] st Contact Info) Description 04/16/2024 Refill [facility] [address] [place] [address] Ernie Noriega MD [address] [place] [address] Essential hypertension Social History Tobacco Use Types [...] 3:00 PM EDT Office Visit [facility] [address] [place] [address] Ernie Noriega MD [address] [place] [address] documented as of this encounter Visit Diagnoses Diagnosis Essential hypertension Unspecified essential hypertension documented in this encounter Additional Health Concerns Assessment Noted Time PHQ-9 Depression Total Score: 2 01/21/20 24 1:25 PM EDT documented as of this encounter Care Teams Cytology Teacher Relationship Specialty Start Date End Date Ernie Noriega MD [address] [place] [address] PCP - General Internal Medicine 08/25/19 documented as of this encounter
--- OUTSIDE RECORDS SUMMARY | 2024-12-21 10:42 | XMS_ITS | Encounter Summary ---
Author Organization [employer] Address [address] [place] [address] 7t [place] [address] Care Team Providers Care Setter Cold Rolling Machine Name Role Phone Ernie Noriega MD Primary Care Provide r Reason for Visit * Reason Onset Date Comments Med Refill 10/17/2024 Encounter Details Date Type Department Care Team ([facility] st Contact Info) Description 10/17/2024 Refill [facility] [address] [place] [address] Ernie Noriega MD [address] [place] [address] Primary osteoarthritis of knee, unspecified laterality Social [...] Description 01/12/2025 3:00 PM EDT Office Visit [facility] [address] [place] [address] Ernie Noriega MD [address] [place] [address] documented as of this encounter Visit Diagnoses Diagnosis Primary osteoarthritis of knee, unspecified laterality documented in this encounter Additional Health Concerns Assessment Noted Time PHQ-9 Depression Total Score: 2 01/21/20 24 1:25 PM EDT documented as of this encounter Care Teams Setter Cold Rolling Machine Relationship Specialty Start Date End Date Ernie Noriega MD [address] [place] [address] PCP - General Internal Medicine 08/25/19 documented as of this encounter
--- OUTSIDE RECORDS SUMMARY | 2024-12-21 10:42 | XMS_ITS | Clinical Summary ---
Author Organization [address] [facility] Address [address] [place] [address] Phone Care Team Providers Care Batter Depositor Name Role Phone Ernie Merritt MD Primary [...] with meloxicam) for up to 60 doses. 3 12/07/19 25 Discontinued oxyCODONE (ROXICODONE) 5 mg [...] Encounters Date Type Department Care Team Description 12/16/2024 11:00 AM EST Office Visit Orthopedic Surgery - [place] [address] [facility] [address] [place] [phone] Nicolasa Yu PA S/P trigger finger release (Primary Dx) 12/07/2024 1:30 PM EST - 12/07/2024 3:00 PM EST Surgery [facility] [place] [address] [place] [phone] Trista David MD LEFT A1 JOAO/TRIGGER FINGER RELEASE INDEX FINGER [54786 (CPT??)] 12/07/2024 12:30 PM EST Anesthesia Event [facility] OR [address] [place] [phone] Irvin Fields MD Decandio, Laura, CRNA 12/07/2024 11:51 AM EST - 12/07/2024 2:43 PM EST Hospital Encounter [facility] OR [address] [place] [address] Trista David MD Discharge Disposition: Home or Self Care 11/23/2024 11:00 AM EST Office Visit Orthopedic Surgery [facility] [address] [facility] [address] [place] [phone] Leroy Lees MD Rotator cuff arthropathy, left (Primary Dx) 11/22/2024 10:45 AM EST Consult Orthopedic Surgery [facility] [address] [facility] [address] [place] [address] Trista David MD Acquired trigger finger of left index finger (Primary Dx) 11/04/2024 Telephone Orthopedic Surgery [facility] [address] [facility] [address] [place] [address] Eulalia Velez from Last 3 Months Surgical History Surgery Date Site/Laterality Comments CARPAL TUNNEL RELEASE Bilateral SHOULDER SURGERY Left at least 10 years ago (pre-2015?) BACK SURGERY HARDWARD CERVICAL & LUMBAR TOTAL [...] 11/23/2024 10:47 AM EST Plan of Treatment Health Maintenance Due Date Last Done Comments [...] Procedure Name Priority Date/Time Associated Diagnosis Comments [place] INCISION TENDON SHEATH 12/07/2024 12:32 PM EST Trigger finger, unspecified finger Case Notes PA ASSIST MA ARTHROCENTESIS/ PIRATION/INJECTIO N MAJOR JOINT/BURSA W/O U/S GUIDANCE Routine 11/23/2024 11:00 AM EST Rotator cuff arthropathy, left from Last 3 Months Results * [place] ARTHROCENTESIS/ASPIRATION/INJECTION MAJOR JOINT/BURSA W/O U/S GUIDANCE (11/23/2024 [...] inal Result from Last 3 [place] [id number] MEDICAID - [place] Advance Directives * Full Code - Default (Latest Code Status on File) Date Activated Date Inactivated Comments 12/07/2024 12:02 PM 12/07/2024 4:53 PM This is ord er is used when code status has not been discussed with the patient, or code status is otherwise unknown/unconfirmed To update the patient's code status, place a code status order. Do not modify or discontinue any currently active code status orders. Care Teams Batter Depositor Relationship Specialty Start Date End Date Ernie Merritt MD [address] [place] [address] PCP - General Internal Medicine 05/20/21
--- OUTSIDE RECORDS SUMMARY | 2024-12-21 10:42 | XMS_ITS | Encounter Summary ---
Author Organization [employer] Address [address] [place] [address] 7t [place] [address] Care Team Providers Care Kit Assembler Name Role Phone Ernie Noriega MD Primary Care Provide r Reason for Visit * Reason Comments Med Refill Encounter Details Date Type Department Care Team ([facility] st Contact Info) Description 12/15/2024 Refill [facility] MEDICINE [address] [place], [place] [phone] Ernie Noriega MD [address] [place] [address] Social History Tobacco Use Types Packs/Day Years [...] Description 01/12/2025 3:00 PM EDT Office Visit [facility] MEDICINE [address] [place] [address] Ernie Noriega MD [address] [place] [address] documented as of this encounter Visit Diagnoses Not on filedocumented in this encounter Additional Health Concerns Assessment Noted Time PHQ-9 Depression Total Score: 2 01/21/20 24 1:25 PM EDT documented as of this encounter Care Teams Kit Assembler Relationship Specialty Start Date End Date Ernie Noriega MD [address] [place] [address] PCP - General Internal Medicine 08/25/19 documented as of this encounter
--- OUTSIDE RECORDS SUMMARY | 2024-12-21 10:42 | XMS_ITS | Encounter Summary ---
Author Organization [facility] Address [address] [place] [address] 7 [place] [address] Care Team Providers Care Housekeeper Caregiver Name Role Phone Ernie Noriega MD Primary Care Provide r Reason for Visit * Reason Onset Date Comments Appointment Request 02/17/2023 Encounter Details Date Type Department Care Team ([facility] st Contact Info) Description 02/17/2023 Telephone [facility] [address] [place] [address] Ernie Noriega MD [address] [place] [address] Appointment Request Social History Tobacco Use Types [...] a colonoscopy due to advise by her technical services rep in [facility] Please contact pt AT [phone] Indonesian Speaker documented in this encounter Plan of Treatment Upcoming Encounters Date Type Department Care Team (Late st Contact Info) Description 01/12/2025 3:00 PM EDT Office Visit [facility] [address] [place] [address] Ernie Noriega MD [address] [place] [address] documented as of this encounter Visit Diagnoses Not on filedocumented in this encounter Additional Health Concerns Assessment Noted Time PHQ-9 Depression Total Score: 0 12/02/19 23 2:38 PM EST documented as of this encounter Care Teams Housekeeper Caregiver Relationship Specialty Start Date End Date Ernie Noriega MD [address] [place], [place] [phone] PCP - General Internal Medicine 08/25/19 documented as of this encounter
--- OUTSIDE RECORDS SUMMARY | 2024-12-21 10:42 | XMS_ITS | Encounter Summary ---
Author Organization [employer] Address [address] [place] [address] 7t [place] [address] Care Team Providers Care Senior Radiation Protection Technician Name Role Phone Ernie Noriega MD Primary Care Provide r Reason for Visit * Reason Onset Date Comments Med Refill 11/07/2024 Encounter Details Date Type Department Care Team ([facility] st Contact Info) Description 11/07/2024 Refill [facility] [address] [place] [address] Ernie Noriega MD [address] [place] [address] Chronic midline low back pain without sciatica [...] Description 01/12/2025 3:00 PM EDT Office Visit [facility] [address] [place] [address] Ernie Noriega MD [address] [place] [address] documented as of this encounter Visit Diagnoses Diagnosis Chronic midline low back pain without sciatica documented in this encounter Additional Health Concerns Assessment Noted Time PHQ-9 Depression Total Score: 2 01/21/20 24 1:25 PM EDT documented as of this encounter Care Teams Senior Radiation Protection Technician Relationship Specialty Start Date End Date Ernie Noriega MD [address] [place] [address] PCP - General Internal Medicine 08/25/19 documented as of this encounter
--- OUTSIDE RECORDS SUMMARY | 2024-12-21 10:42 | XMS_ITS | Encounter Summary ---
Author Organization [employer] Address [address] [place] [address] 7t [place] [address] Care Team Providers Care Type Casting Machine Operator Name Role Phone Ernie Noriega MD Primary Care Provide r Reason for Visit * Reason Onset Date Comments Med Refill 08/12/2024 Encounter Details Date Type Department Care Team ([facility] st Contact Info) Description 08/12/2024 Refill [facility] [address] [place] [address] Ilsa Robison, ANP [address] [place] [address] Primary osteoarthritis of knee, unspecified laterality Social [...] Description 01/12/2025 3:00 PM EDT Office Visit [facility] [address] [place] [phone] Ernie Noriega MD [address] [place] [address] documented as of this encounter Visit Diagnoses Diagnosis Primary osteoarthritis of knee, unspecified laterality documented in this encounter Additional Health Concerns Assessment Noted Time PHQ-9 Depression Total Score: 2 01/21/20 24 1:25 PM EDT documented as of this encounter Care Teams Type Casting Machine Operator Relationship Specialty Start Date End Date Ernie Noriega MD [address] [place] [phone] PCP - General Internal Medicine 08/25/19 documented as of this encounter
--- OUTSIDE RECORDS SUMMARY | 2024-12-21 10:42 | XMS_ITS | Encounter Summary ---
Author Organization [employer] Address [address] [place] [address] 7t [place] [address] Care Team Providers Care Bulb Packer Name Role Phone Ernie Noriega MD Primary Care Provide r Reason for Visit * Reason Onset Date Comments Med Refill 01/26/2024 Encounter Details Date Type Department Care Team ([facility] st Contact Info) Description 01/26/2024 Refill [facility] [address] [place] [address] Ilsa Robison, ANP [address] [place] [address] Chronic midline low back pain without sciatica; [...] EDT Office Visit [facility] [address] [place] [address] Ernie Noriega MD [address] [place] [address] documented as of this encounter Visit Diagnoses Diagnosis Chronic midline low back pain without sciatica Cervical radiculopathy Brachial neuritis or radiculitis nos documented in this encounter Additional Health Concerns Assessment Noted Time PHQ-9 Depression Total Score: 2 01/21/20 24 1:25 PM EDT documented as of this encounter Care Teams Bulb Packer Relationship Specialty Start Date End Date Ernie Noriega MD [address] [place] [address] PCP - General Internal Medicine 08/25/19 documented as of this encounter
--- OUTSIDE RECORDS SUMMARY | 2024-12-21 10:42 | XMS_ITS | Encounter Summary ---
Author Organization [employer] [facility] Address [address] [place] [address] 7 [place] [address] Care Team Providers Care Auto Porter Name Role Phone Ernie Noriega MD Primary Care Provide r Encounter Details Date Type Department Care Team (Late st Contact Info) Description 02/18/2023 Abstract [facility] [address] [place] [address] [phone] Ernie Noriega MD [address] [place] [address] [phone] Social History Tobacco Use Types Packs/Day Years [...] Description 01/12/2025 3:00 PM EDT Office Visit [facility] [address] [place] [address] [phone] Ernie Noriega MD [address] [place] [address] [phone] documented as of this encounter Procedures Procedure [...] documented as of this encounter Care Teams Auto Porter Relationship Specialty Start Date End Date Ernie Noriega MD [address] [place] [address] PCP - General Internal Medicine 08/25/19 documented as of this encounter
--- OUTSIDE RECORDS SUMMARY | 2024-12-21 10:42 | XMS_ITS | Encounter Summary ---
Author Organization [employer] Address [address] [facility] 7t [place] [address] Care Team Providers Care Apricot Washer Name Role Phone Ernie Noriega MD Primary Care Provide r Encounter Details Date Type Department Care Team (Late st Contact Info) Description 12/09/2024 Orders Only [facility] External Provider, [facility] Social History Tobacco Use Types Packs/Day Years [...] Office Visit [facility] [address] [place] [address] Ernie Noriega MD [address] [place] [address] documented as of this encounter Procedures Procedure Name Priority Date/Time Associated Diagnosis Comments FL GUIDANCE IN OR Routine 12/09/2024 9:0 8 AM EST documented in this encounter Results * FL Guidance in OR (12/09/2024 9:08 AM EST) Anatomical Region Laterality Modality X-Ray Angiograph y 12/09/2024 9:08 AM EST Narrative 12/09/2024 9:48 AM EST ? [facility] ?[address] ?[place] [address] ? Fluoroscopy Report ? Signed ? Patient: Julien,Miguelina ?MR#: [id number] ?? 12 ? : 1965 ?Acct:[id number] ? Age/Sex: 59 / F ?ADM Date: 02/28/25 ? Loc: HO.SSS ? Attending Sue Casas MD ? Ordering Physician: Aldo Casas MD ?? Date of Service: 12/09/24 ?? Procedure(s): FL guidance in OR ?? Accession Number(s): [id number] ? cc: Ofelia Melgar MD; Aldo Casas MD ? EXAMINATION: ??FL GUIDANCE ONLY ? HISTORY: caudal epidural steroid injection ? COMPARISON: ?? None available. ? TECHNIQUE: ?? Fluoroscopy time: 16.6 seconds. ?? Cumulative Dose: 11.461 mGy. ?? DAP: 4.1886 mGym2 ?? Images: 2. ? FINDINGS: ?? Images demonstrate a needle at the dorsal aspect of the lower sacrum. ? FL/FL guidance in OR ?? IMPRESSION: ?? Fluoroscopy during procedure. Please see procedure report for ?? additional information. ? Electronically signed by: ??Rodrick Williamson MD ??12/09/2024 09:45 AM EST ?? RP ? Dictated By: ?Rodrick Williamson MD ? Signed By: ?<Electronically signed by Rodrick Williamson MD in OV> ?12/09/24 0945 ? DD/ 0908 ? TD/TT: 12/09/24 0930 ? Maintenance Supervisor 2Nd Shift: ? Procedure Note [place], Image - 12/09/2024 [place] [address] Fluoroscopy Report Signed Patient: Miguelina Julien#: [id number] [birth year] : 1965Acct:[id number] Age/Sex: 59 / FADM Date: 12/09/24 Loc: HO.[facility] Attending Dr: Aldo Casas MD Ordering Physician: Aldo Casas MD Date of Service: 12/09/24 Procedure(s): FL guidance in OR Accession Number(s): [id number] cc: Ofelia Melgar MD; Aldo Casas MD EXAMINATION: FL GUIDANCE ONLY HISTORY: caudal epidural steroid injection COMPARISON: None available. TECHNIQUE: Fluoroscopy time: 16.6 seconds. Cumulative Dose: 11.461 mGy. DAP: 4.1886 mGym2 Images: 2. FINDINGS: Images demonstrate a needle at the dorsal aspect of the lower sacrum. FL/FL guidance in OR IMPRESSION: Fluoroscopy during procedure. Please see procedure report for additional information. Electronically signed by: Rodrick Williamson MD 12/09/2024 09:45 AM EST Dictated By: Rodrick Williamson MD Signed By: <Electronically signed by Rodrick Williamson MD in OV> 02/28/25 0945 DD/ 0908 TD/TT: 12/09/24 09 Maintenance Supervisor 2Nd Shift: [facility] External Provider IMG IR PROCEDURES Final Result documented in this encounter Visit Diagnoses Not on filedocumented in this encounter Additional Health Concerns Assessment Noted Time PHQ-9 Depression Total Score: 2 01/21/20 24 1:25 PM EDT documented as of this encounter Care Teams Apricot Washer Relationship Specialty Start Date End Date Ernie Noriega MD [address] [place] [address] PCP - General Internal Medicine 08/25/19 documented as of this encounter
--- OUTSIDE RECORDS SUMMARY | 2024-12-21 10:42 | XMS_ITS | Encounter Summary ---
Author Organization [employer] Address [address] [place] [address] 7t [place] [address] Care Team Providers Care Credit Officer Name Role Phone Ernie Noriega MD Primary Care Provide r Reason for Visit * Reason Comments Med Refill Encounter Details Date Type Department Care Team ([facility] st Contact Info) Description 07/28/2024 Refill [facility] [address] [place], [place] [phone] Ernie Noriega MD [address] [place] [address] Primary osteoarthritis of knee, unspecified laterality Social [...] Visit [facility] [address] [place] [address] Ernie Noriega MD [address] [place] [address] documented as of this encounter Visit Diagnoses Diagnosis Primary osteoarthritis of knee, unspecified laterality documented in this encounter Additional Health Concerns Assessment Noted Time PHQ-9 Depression Total Score: 2 01/21/20 24 1:25 PM EDT documented as of this encounter Care Teams Credit Officer Relationship Specialty Start Date End Date Ernie Noriega MD [address] [place] [phone] PCP - General Internal Medicine 08/25/19 documented as of this encounter
--- OUTSIDE RECORDS SUMMARY | 2024-12-21 10:43 | XMS_ITS | Encounter Summary ---
Author Organization [employer] Address [address] [place] [address] 7 [place] [address] Care Team Providers Care Shipping And Receiving Clerk Name Role Phone Ernie Noriega MD Primary Care Provide r Reason for Visit * Reason Onset Date Comments Med Refill 10/25/2023 Encounter Details Date Type Department Care Team ([facility] st Contact Info) Description 10/25/2023 Refill [facility] [address] [place] [address] Ernie Noriega MD [address] [place] [address] Social History Tobacco Use Types Packs/Day Years [...] Office Visit [facility] [address] [place] [address] Ernie Noriega MD [address] [place] [address] documented as of this encounter Visit Diagnoses Not on filedocumented in this encounter Additional Health Concerns Assessment Noted Time PHQ-9 Depression Total Score: 0 12/02/19 23 2:38 PM EST documented as of this encounter Care Teams Shipping And Receiving Clerk Relationship Specialty Start Date End Date Ernie Noriega MD [address] [place] [address] PCP - General Internal Medicine 08/25/19 documented as of this encounter
--- OUTSIDE RECORDS SUMMARY | 2024-12-21 10:43 | XMS_ITS | Encounter Summary ---
Author Organization [employer] Address [address] [place] [address] [address]t [place] [address] Care Team Providers Care Army Officer Name Role Phone Ernie Noriega MD Primary Care Provide r Reason for Visit * Reason Onset Date Comments Med Refill 11/03/2023 Encounter Details Date Type Department Care Team ([facility] st Contact Info) Description 11/03/2023 Refill [facility] [address] [place] [address] Ernie Noriega MD [address] [place] [address] Seasonal allergies Social History Tobacco Use Types [...] 01/12/2025 3:00 PM EDT Office Visit [facility] [address] [place] [address] Ernie Noriega MD [address] [place] [address] documented as of this encounter Visit Diagnoses Diagnosis Seasonal allergies Allergic rhinitis, cause unspecified documented in this encounter Additional Health Concerns Assessment Noted Time PHQ-9 Depression Total Score: 0 12/02/19 23 2:38 PM EST documented as of this encounter Care Teams Army Officer Relationship Specialty Start Date End Date Ernie Noriega MD [address] [place] [address] PCP - General Internal Medicine 08/25/19 documented as of this encounter
--- OUTSIDE RECORDS SUMMARY | 2024-12-21 10:43 | XMS_ITS | Encounter Summary ---
Author Organization [employer] Address [address] [place] [address] 7[address] [place] [address] Care Team Providers Care Bioinformatics Assistant Name Role Phone Ernie Noriega MD Primary Care Provide r Reason for Visit * Reason Onset Date Comments Med Refill 11/17/2024 Encounter Details Date Type Department Care Team ([facility] st Contact Info) Description 11/17/2024 Refill [facility] [address] [place] [address] Ernie Noriega MD [address] [place] [address] Seasonal allergies Social History Tobacco Use Types [...] Office Visit [facility] [address] [place] [address] Ernie Noriega MD [address] [place] [address] documented as of this encounter Visit Diagnoses Diagnosis Seasonal allergies Allergic rhinitis, cause unspecified documented in this encounter Additional Health Concerns Assessment Noted Time PHQ-9 Depression Total Score: 2 01/21/20 24 1:25 PM EDT documented as of this encounter Care Teams Bioinformatics Assistant Relationship Specialty Start Date End Date Ernie Noriega MD [address] [place] [phone] PCP - General Internal Medicine 08/25/19 documented as of this encounter
--- OUTSIDE RECORDS SUMMARY | 2024-12-21 10:43 | XMS_ITS | Encounter Summary ---
Author Organization [facility] Address [address] [place] [address] Care Team Providers Care Bed Placement Coordinator Name Role Phone Ernie Merritt Primary Care Provider + Encounter Details Date Type Department Care Team (Late st Contact Info) Description 12/13/2024 Telephone [facility] [address] [place] [address] Christopher Peres MD [address] [place], [place] [phone] Social History Tobacco Use Types Packs/Day Years Used Date Smoking Tobacco: Former Cigarettes Q uit: 2002 Smokeless Tobacco: Never Alcohol Use Standard Drinks/Week Comments Never 0 (1 standard drink = 0.6 oz pur e alcohol) Comments Unknown Sex and Gender Information Value Date Recorded Sex Assigned at Female 03/16/2023 8:41 AM EDT Legal Sex Female 3:56 AM EDT Gender Identity Female 03/16/2023 8:41 AM EDT Sexual Orientation Bisexual 03/16/2023 8: 41 AM EDT documented as of this encounter Miscellaneous Notes * Telephone Encounter - Francia Granda - 12/13/2024 12:54 PM EST Patient has been rescheduled * Telephone Encounter - Rubin Navas - 12/13/2024 11:00 AM EST Left voicemail using motor vehicle parts interpreter services to let patient know that Dr Peres would not be available on due to an emergency and we need her to call back to be rescheduled. documented in this encounter Plan of Treatment Upcoming Encounters Date Type Department Care Team (Late st Contact Info) Description 03/14/2025 3:00 PM EDT Follow-Up [facility] [address] [place] [address] Christopher Peres MD [address] [place] [address] documented as of this encounter Visit Diagnoses Not on filedocumented in this encounter Care Teams Bed Placement Coordinator Relationship Specialty Start Date End Date Ernie Merritt [address] [place] [address] PCP - General Internal Medicine 11/29/24 documented as of this encounter
--- OUTSIDE RECORDS SUMMARY | 2024-12-21 10:43 | XMS_ITS | Clinical Summary ---
Author Organization [employer] Address [address] [place] [address] 7[address] [place] [address] Care Team Providers Care Family Assessment Worker Name Role Phone Ernie Noriega MD [...] daily. 180 capsule 1 10/13/19 25 Active fluticasone (Flonase) 50 MCG/ACT nasal [...] MEAL 90 capsule 3 11/29/19 25 Active albuterol (2.5 MG/3ML) 0.083% nebulizer solution INHALE THE CONTENTS OF 1 VIAL WITH NEBULIZER 3 TIMES A DAY 75 mL 1 12/17/19 25 Active omeprazole (PriLOSEC) [address] capsuleIndication s:Gastritis without bleeding, unspecified chronicity, unspecified gastritis type TAKE 1 CAPSULE BY MOUTH EVERY DAY BEFORE A MEAL 90 capsule 3 12/15/19 24 025 Discontinued albuterol (2.5 MG/3ML) 0.083% nebulizer solution INHALE 1 VIAL (3ML) VIA NEBULIZER THREE TIMES A DAY 75 mL 1 11/03/19 25 025 Discontinued Active Problems Problem Noted Date [...] has chronic low back pain, treated at [facility] by Dr Clint Newberry. Hx of AP fusion from L4-sacrum in 2003. She has received epidural injections initially with good results but that is no longer the case. Pt developed lumbar spinal stenosis and on 01/14/2021 underwent Posterior neural foraminotomy L2-L3 by Dr. Bailey. She was admitted to [facility] from 11/13/2022 until 11/20/2022 due to worsening low back pain with radiation to her right thigh and right leg after an experimental thoracic spinal stimulation procedure at the surgery center [facility] (She was referred there by [facility]). [...] does not want to follow-up with [facility] [place] d/t the severe pain she experienced with [...] care of Orthopaedic specialist Dr Lees at [facility]. Pt would like to hold off on procedure until her back feels better. I contacted the office of Orthopaedic surgeon who stated this was an elective procedure and was ok with delaying until pt felt ready Assessment & Plan (12/04/2022 8:31 AM EST): Pt had initially come in for a Preoperative exam. Under the care of Orthopaedic specialist Dr Lees at [facility]. Pt would like to hold off on [...] has a Medical [employer] Card [facility]. pt utilizes the liquid form. [...] has a Medical [place] Card recommended by [facility] treating physician. pt utilizes the liquid form. She is no longer under the care of [facility] I had been prescribing tramadol to use [...] Dr Soto who referred her back to [facility] for back pain History of total knee [...] Under the care of Dr Almeida at [facility]. see med list for current psychiatric meds, no changes. she has been stable they have requested me to continue his medications for insomnia, Ambien and Benadryl Chronic low back pain 05/12/2012 Assessment & Plan (10/13/2024 3:42 PM EST): Pt here for a f/u Hx of chronic low back pain, treated in the past at [facility] by Dr Clint Newberry. Hx of AP fusion from L4-sacrum in 2003. She received epidural injections with good results in the past. but that was no longer the case. Pt developed lumbar spinal stenosis and on 01/14/2021 underwent Posterior neural foraminotomy L2-L3by Dr. Bailey. She was admitted to [facility] from 11/13/2022 until 11/20/2022 due to worsening low back pain with radiation to her right thigh and right leg after an experimental thoracic spinal stimulation procedure at the surgery center [facility] (She was referred there by [facility]). Procedure was aborted after pt experienced severe [...] their perspective Since our last visit pt naeem presented to the ER with c/o low [...] pain, she had been receiving treatment at [facility] by Dr Clint Newberry. Hx of AP fusion from L4-sacrum in 2003. She has received epidural injections with good results in the past. but that was no longer the case. Pt developed lumbar spinal stenosis and on 01/14/2021 underwent Posterior neural foraminotomy L2-L3by Dr. Bailey. Patient is here for a follow up. She was recently admitted to [facility] from 11/13/2022 until 11/20/2022 due to worsening low back pain with radiation to her right thigh and right leg after an experimental thoracic spinal stimulation procedure at the surgery [facility] (She was referred there by [facility]). Procedure was aborted after pt experienced severe [...] does not want to follow-up with [facility] [place] d/t the severe pain she experienced with [...] pain, she had been receiving treatment at [facility] by Dr Clint Newberry. Hx of AP fusion from L4-sacrum in 2003. She has received epidural injections with good results in the past. but that was no longer the case. Pt developed lumbar spinal stenosis and on 01/14/2021 underwent Posterior neural foraminotomy L2-L3liv Bailey. She was admitted to [facility] from 11/13/2022 until 11/20/2022 due to worsening low back pain with radiation to her right thigh and right leg after an experimental thoracic spinal stimulation procedure at the surgery [facility] (She was referred there by [facility]). Procedure was aborted after pt experienced severe [...] does not want to follow-up with [facility] [place] d/t the severe pain she experienced with [...] pain, she had been receiving treatment at [facility] by Dr Clint Newberry. Hx of AP fusion from L4-sacrum in 2003. She has received epidural injections with good results in the past. but that was no longer the case. Pt developed lumbar spinal stenosis and on 01/14/2021 underwent Posterior neural foraminotomy L2-L3by Dr. Bailey. Patient is here for a follow up. She was recently admitted to [facility] from 11/13/2022 until 11/20/2022 due to worsening low back pain with radiation to her right thigh and right leg after an experimental thoracic spinal stimulation procedure at the surgery center [facility] (She was referred there by [facility]). Procedure was aborted after pt experienced severe [...] does not want to follow-up with [place] [place] d/t the severe pain she experienced with [...] Encounters Date Type Department Care Team Description 12/21/2024 9:00 AM EDT Office Visit [facility] [address] [place] [address] Right foot pain (Primary Dx); Ecchymoses, spontaneous 12/15/2024 Refill [facility] [address], [place] [phone] Ernie Noriega MD 12/09/2024 Orders Only [facility] External Provider, [facility] 11/28/2024 Refill [facility] [address] [place] [address] Ernie Noriega MD Gastritis without bleeding, unspecified chronicity, unspecified gastritis type 11/18/2024 Refill [facility] [address], [place] [phone] Ernie Noriega MD Primary hypertension 11/17/2024 Refill [facility] [address] [facility] [place] [address] Ernie Noriega MD Seasonal allergies 11/14/2024 Refill [facility] [address] [facility] [place] [address] Ernie Noriega MD Primary osteoarthritis of knee, unspecified laterality 11/07/2024 Refill [facility] [address] [facility] [place] [address] Ernie Noriega MD Chronic midline low back pain without sciatica 11/01/2024 Refill [facility] [address] [place] [address] Sugar Mitchell MD Seasonal allergies 11/01/2024 Refill [facility] [address] [place] [address] Sugar Mitchell MD Seasonal allergies 10/25/2024 1:20 PM EST Office Visit [facility] [address] [facility] [place] [address] Ofelia Melgar MD UTI symptoms 10/25/2024 Refill [facility] [address] [place] [address] Ernie Noriega MD Chronic midline low back pain without sciatica 10/25/2024 Telephone [facility] [address] [place] [address] Ernie Noriega MD Med Refill 10/25/2024 Travel 10/17/2024 Refill [facility] [address] [place] [address] Ernie Noriega MD Primary osteoarthritis of knee, unspecified laterality 10/16/2024 Refill [facility] [address] [facility] [place] [address] Sugar Mitchell MD 10/14/2024 Telephone [facility] [address] [place] [address] Ernie Noriega MD Med Refill 10/13/2024 3:00 PM EST Office Visit [facility] [address] [place] [address] Ernie Noriega MD Essential hypertension (Primary Dx); Mild persistent asthma without complication; Chronic midline low back pain without sciatica 10/13/2024 Refill [facility] [address] [place] [address] Ernie Noriega MD Chronic midline low back pain without sciatica 10/13/2024 Travel 10/12/2024 Travel 10/12/2024 Refill [facility] [address] [place] [address] Ernie Noriega MD Primary osteoarthritis of knee, unspecified laterality 10/10/2024 Refill [facility] [address] [place], [place] [address] Ernie Noriega MD Pain 10/06/2024 Travel 10/03/2024 Telephone [facility] [address] [place] [address] Ernie Noriega MD 10/03/2024 Patient Outreach [facility] [address] [place], [place] [address] Ernie Noriega MD Pre-visit Planning (SDOH screening was completed on 01/21/2024) 09/28/2024 Telephone [facility] [address] [place] [address] Ernie Noriega MD Med Refill 09/28/2024 Refill [facility] [address] [place] [address] Ernie Noriega MD Primary osteoarthritis of knee, unspecified laterality 09/28/2024 Refill [facility] [address] [place] [address] Ernie Noriega MD Chronic midline low back pain without sciatica; Cervical radiculopathy 09/27/2024 Refill [facility] [address] [place] [address] Ernie Noriega MD Chronic midline low back pain without sciatica; Cervical radiculopathy from Last 3 Months Immunizations Name Administration [...] oz) 12/21/2024 8:58 A M EDT Height 160 cm (5' 3 ) 10/13/2024 2:49 PM EST Body Mass Index 29.51 10/13/2024 2:49 PM EST Plan of Treatment Upcoming Encounters Date Type Department Care Team (Late st Contact Info) Description 01/12/2025 3:00 PM EDT Office Visit [facility] [address] [place] [address] Ernie Noriega MD [address] [place] [address] Health Maintenance Due Date Last Done Comments [...] 01/20/2025 01/21/2024 Alcohol/Substance Use Screening 10/13/2025 10/13/2024 Cervical Cancer Screening 12/19/2025 HPV/Cotest 12/19/2025 12/19/2020, 12/10, 09/02/2019 Tobacco Screening 12/21/2025 12/21/2024 Mammogram 12/31/2025 01/01/2024, 12/10, 11/25/2021, Additional history [...] 12/21/2024 9:42 AM EDT Right foot pain FL GUIDANCE IN OR Routine 12/09/2024 9:0 8 AM EST POCT URINALYSIS DIPSTICK Routine 10/25/2024 1:03 PM [...] Recently Relevant to Health Maintenance Results * XR Foot 3+ Views Right (12/21/2024 9:42 AM EDT) Anatomical Region Laterality Modality Lower Extremities, Foot Right [facility] 12/21/2024 9:42 AM EDT Narrative 12/21/2024 10:03 AM EDT ?[facility] ?[address] ?[place] [address] ?XRay Report ? Signed ? Patient: Julien,Fairdale ?MR#: [id number] ?? 12 ? : 1965 ?Acct:[id number] ? Age/Sex: 59 / F ?ADM Date: 12/21/24 ? Loc: HO.HHCX ? Attending Dr: Marty Soto MD ? Ordering Physician: MARTY SOTO MD ?? Date of Service: 12/21/24 ?? Procedure(s): XR foot RT min 3V ?? Accession Number(s): [id number] ? cc: MARTY SOTO MD ? EXAMINATION: ??XR FOOT 3 OR [...] DD/ 0942 ? TD/TT: 12/21/24 0956 ? Head Baggage Porter: ? Procedure Note Tiesha, Image - 12/21/[address] [address] XRay Report Signed Patient: Miguelina Julien#: [id number] 12 : 1965Acct:[id number] Age/Sex: 59 / FADM Date: 12/21/24 Loc: HO.HHCX Attending Dr: Marty Soto MD Ordering Physician: MARTY SOTO MD Date of Service: 12/21/24 Procedure(s): XR foot RT min 3V Accession Number(s): [id number] cc: MARTY SOTO MD EXAMINATION: XR FOOT 3 OR MORE [...] 12/21/24 1000 DD/ 0942 TD/TT: 12/21/24 0956 Head Baggage Porter: us Marty Stoo MD IMG XR PROCEDURES Final Result * FL Guidance in OR (12/09/2024 9:08 AM EST) Anatomical Region Laterality Modality X-Ray Angiograph y 12/09/2024 9:08 AM EST Narrative 12/09/2024 9:48 AM EST ? [facility] ?[address] ?[place] [address] ? Fluoroscopy Report ? Signed ? Patient: Miguelina Julien ?MR#: [id number] ?? 12 ? : 1965 ?Acct:[id number] ? Age/Sex: 59 / F ?ADM Date: 12/09/24 ? Loc: HO.SSS ? Attending Dr: Aldo Casas MD ? Ordering Physician: Aldo Casas MD ?? Date of Service: 12/09/24 ?? Procedure(s): FL guidance in OR ?? Accession Number(s): [id number] ? cc: Ofelia Melagr MD; Aldo Casas MD ? EXAMINATION: ??FL [...] DD/ 0908 ? TD/TT: 12/09/24 0930 ? Head Baggage Porter: ? Procedure Note Donsomter, Image - 12/09/[address] [address] Fluoroscopy Report Signed Patient: Miguelina JulienMR#: [id number] 12 : 1965Acct:[id number] Age/Sex: 59 / FADM Date: 12/09/24 Loc: [facility] Attending Dr: Aldo Casas MD Ordering Physician: Aldo Casas MD Date of Service: 12/09/24 Procedure(s): FL guidance in OR Accession Number(s): [id number] cc: Ofelia Melgar MD; Aldo Casas MD [...] signed by Rodrick Williamson MD in OV> 12/09/24944 DD/ 7 TD/TT: 12/09/24929 Head Baggage Porter: [facility] External Provider IMG IR PROCEDURES Final Result * POCT urinalysis dipstick manually resulted (10/25/2024 [...] (10/25/2024 12:00 AM EST) Color Urine Yellow [facility] Appearance Urine Clear [facility] PH 5.5 5.0 - 9.0 [facility] Glucose Urine UA Negative Negative mg/dL [facility] Urine Blood Negative Negative [facility] Specific [place] - Urine 1.015 1.005 - 1.025 [facility] Urine Protein Negative Neg-Trace mg/dL [facility] Urine Ketones Negative Negative mg/dL [facility] Nitrite Urine Negative Negative [facility] Leukocyte Esterase Urine Negative Negative [facility] RBC Urine 0-2 0 - 2 /HPF [facility] Urine WBC 0-5 0 - 5 /HPF [facility] Urine Squamous Epithelial Cell 0-2 0 - 2 /HPF [facility] Urine Bacteria None Seen None Seen [facility] Hyaline Casts, Urine 0-2 0 - 2 /LPF [facility] Urine 10/25/2024 10/25/2024 Narrative [facility] - 10/25/2024 5:35 PM EST Urine, Clean Catch Ofelia Melgar MD LAB URINE ORDERABLES Final Result [facility] [address] [place] [address] [phone] * XR Lumbar Spine Complete 4+ Views (09/23/2024 2:10 PM EST) Anatomical Region Laterality Modality Spine, L-spine Radiographic Anabella ging 09/23/2024 2:10 PM EST Narrative 11/10/2024 9:14 AM EST ? [facility] ? [address] ?[place] [address] ?XRay Report ? Signed ? Patient: Julien,Fairdale ?MR#: [id number] ?? 12 ? : 1965 ?Acct:[id number] ? Age/Sex: 59 / F ?ADM Date: 09/23/24 ? Loc: HO.HOSX ? Attending Dr: Tr WILDER ? Ordering Physician: Tr Soliman ?? Date of Service: 09/23/24 ?? Procedure(s): XR lumbar spine 4V min ?? Accession Number(s): [id number] ? cc: Tr Soliman; Ernie Merritt MD [...] ?? significant subluxation with flexion or extension. Eikc-yh-xrodwybs ?? stool burden. ? XR/XR lumbar spine 4V min ?? IMPRESSION: ?? 1. Postsurgical changes at L3-S1 without evidence of hardware ?? complication. ? 2. Grade 1 retrolisthesis of T12 on L1 and straightening of the normal ?? lumbar lordosis, unchanged. No significant subluxation with flexion or ?? extension. ? 3. Multilevel degenerative disc disease, most prominent at L1-L3. ? 4. Octg-qi-utrmalhg stool burden. No significant subluxation with ?? flexion or extension. ? Electronically signed by: ??Luc Lieberman MD ??11/10/2024 09:11 AM EST ?? RP ? Dictated By: ?Luc Lieberman MD ? Signed By: ?<Electronically signed by Luc Lieberman MD in OV> ?11/10/24 0911 ? DD/ 1410 ? TD/TT: 09/23/24 1415 ? Head Baggage Porter: SR ? Procedure Note Donsomter, Image - 11/10/2024 [facility] [address] [place] [address] [address] [place] [address] XRay Report Signed Patient: Miguelina JulienMR#: [id number] 12 : 1965Acct:[id number] Age/Sex: 59 / FADM Date: 09/23/24 Loc: [facility] Attending Dr: Tr WILDER Ordering Physician: Tr Soliman Date of Service: 09/23/24 Procedure(s): XR lumbar spine 4V min Accession Number(s): [id number] cc: Tr Soliman; Ernie Merritt MD EXAMINATION: [...] No significant subluxation with flexion or extension. Hdhv-ow-mmrrexyw stool burden. XR/XR lumbar spine 4V min IMPRESSION: 1. Postsurgical changes at L3-S1 without evidence of hardware complication. 2. Grade 1 retrolisthesis of T12 on L1 and straightening of the normal lumbar lordosis, unchanged. No significant subluxation with flexion or extension. 3. Multilevel degenerative disc disease, most prominent at L1-L3. 4. Ihuq-xv-opzbdoei stool burden. No significant subluxation with flexion or extension. Electronically signed by: Luc Lieberman MD 11/10/2024 09:11 AM EST Dictated By: Luc Lieberman MD Signed By: <Electronically signed by Luc Lieberman MD in OV> 11/10/24 0911 DD/ 1410 TD/TT: 09/23/24 141 Head Baggage Porter: [facility] External Provider IMG XR PROCEDURES Edited Result - Final * (ABNORMAL) Colonoscopy (03/18/2024) Colonoscopy Abnormal( A) Normal Comment:Tubular Adenoma 03/18/2024 Historical Provider HEALTH MAINTENANCE Final Result * BI Mammogram Screening Tomosynthesis Bilateral (01/01/2024 8:45 AM EDT) Anatomical Region Laterality Modality Breast Bilateral Mammography 01/01/2024 8:45 AM EDT Narrative 01/19/2024 10:06 AM EDT ? [facility] ? [address] ?[place] [address] ? Mammography Report ? Signed ? Patient: Juan Pablo Taylor,Miguelina ?MR#: ?? [id number] ? : 1965 ?Acct:[id number] ? Age/Sex: 58 / F ?ADM Date: 03/22/24 ? Loc: HO.MAMMO ? Attending Dr: Ernie Merritt MD ? Ordering Physician: Ernie Merritt MD ?Resu ?? lts: 2Benign Findings ? Date of Service: 01/01/24 ?Follow Up: 1 Year From Orig ?? inal Mammogram ? Procedure(s): MM tomosynthesis screening BI ?? Accession Number(s): [id number] ? cc: Ernie Merritt MD ? EXAMINATION: [...] 1003 ? DD/ 0845 ? TD/TT: ? Head Baggage Porter: ? Procedure Note Donvernaazarjuliannter, Image - 01/19/2024 [facility] [address] [place], [place] [address] Mammography Report Signed Patient: Miguelina Watson#: [id number] : 1965Acct:[id number] Age/Sex: 58 / FADM Date: 01/01/24 Loc: HO.MAMMO Attending Dr: Ernie Merritt MD Ordering Physician: Ernie Merritt MDResu lts: 2Benign Findings Date of Service: 01/01/24Follow Up: 1 Year From Orig inal Mammogram Procedure(s): MM tomosynthesis screening BI Accession Number(s): [id number] cc: Ernie Merritt MD EXAMINATION: MM SCREENING [...] in OV> 01/19/24 1003 DD/ 0845 TD/TT: Head Baggage Porter: us Ernie Ro MD IMG BI PROCEDURES Fin al Result * (ABNORMAL) Lipid Panel with Reflex to Direct LDL (11/07/2022 8:24 AM EST) Cholesterol, Total 235(H) <200 mg/dL [facility] HDL Cholesterol 64 > OR = 50 mg/dL [facility] Triglycerides 252(H) <150 mg/dL [facility] Comment: If a non-fasting specimen was collected, consider repeat triglyceride testing on a fasting specimen if clinically indicated. Bebo et al. J. of Clin. Lipidol. 2015;9:129-169. LDL Cholesterol 132(H) mg/dL (calc) [facility] Comment: Reference range: <100 Desirable range <100 mg/dL for primary prevention; ?? <70 mg/dL for patients with CHD or diabetic patients with > or = 2 CHD risk factors. LDL-C is now calculated using the Jordan-Nereyda calculation, which is a validated novel method providing better accuracy than the Friedewald equation in the estimation of LDL-C. Jordan CARREON et al. BHARAT. 2013;310(19): 6356-5288 (http://education.Tyfone/faq/UZV009) Chol/HDLC Ratio 3.7 <5.0 (calc) [facility] Non-HDL Cholesterol 171(H) <130 mg/dL (calc) [facility] Comment: For patients with diabetes plus 1 major ASCVD risk factor, treating to a non-HDL-C goal of <100 mg/dL (LDL-C of <70 mg/dL) is considered a therapeutic option. 11/07/2022 8:24 AM EST 11/07/2022 8:25 AM EST Narrative [facility] - 11/08/2022 12:51 AM EST FASTING:YES FASTING: YES Ernie Ro MD LAB BLOOD ORDERABLES Final Result Performing Organization Address City/[facility]/ZIP Co de Phone Number [address], [place] [address] [facility] [employer] [address] [place] [address], (Nl2) [place] [address] * Hepatitis C Antibody with Reflex to HCV, RNA, Quantitative, Real-Time PCR (11/07/2022 8:24 AM EST) Pathologist [facility] Hepatitis C Antibody NON-REACT TAMARA NON-REACT TAMARA [facility] [employer] Index 0.12 <1.00 [facility] [employer] Comment: HCV antibody was non-reactive. There is no laboratory evidence of HCV infection. In most cases, no further action is required. However, if recent HCV exposure is suspected, a test for HCV RNA (test code 99829) is suggested. For additional information please refer to http://education.Yazino/faq/IOU15c3 (This link is being provided for informational/ educational purposes only.) Blood Venous blood specimen / Unknown 11/07/2022 8:24 AM EST 11/07/2022 8:25 AM EST Narrative [facility] - 11/08/2022 12:51 AM EST FASTING:YES FASTING: YES Result [facility] Ernie Ro MD LAB BLOOD ORDERABLES Final Result Performing Organization Address City/[facility]/ZIP Co de Phone Number [address], [place] [address] [facility] [place] [employer] [address] [place] [address], (Nl2) [place] [address] * HPV E6/E7 RFLX SERGIO 16 18/45 (12/19/2020 3:40 PM EST) Pathologist [facility] HPV 16 RNA [facility] HPV 18/45 RNA TNP F[facility]DA [facility] HPV E6 E7 ADD TNP [facility]OUNDA [facility] HPV mRNA E6/E7 rflx Not Detected Not Detected [facility] Comment: Methodology: Postal Service Mail Processor-Mediated Amplification This assay detects E6/E7 viral messenger RNA (mRNA) from 14 high-risk HPV types (16,18,31,33,35,39,45,51,52,56,58,59,66,68). The analytical performance characteristics of this assay have been determined by [facility]. The modifications have not been cleared or approved by the FDA. This assay has been validated pursuant to the CLIA regulations and is used for clinical purposes. For additional information, please refer to http://education.Yazino/faq/ZQJ322o1 (This link if provided for information/ educational purposes only.) THIS TEST WAS PERFORMED AT: [employer] [address] [place] [address],[address] [place], [place] ??[phone] FLACA ANTONY MD 12/19/2020 3:40 PM EST us Historical Provider HISTORICAL/NON ORDERABLE LABS Final Result [facility] [address] from Last 3 Months or Most Recently Relevant to Health Maintenance Insurance [facility] C3 Care Teams Family Assessment Worker Relationship Specialty Start Date End Date Ernie Noriega MD [address] [place] [phone] PCP - General Internal Medicine 08/25/19
--- OUTSIDE RECORDS SUMMARY | 2024-12-21 10:43 | XMS_ITS | Encounter Summary ---
Author Organization [employer] Address [address] [place] [address] 7t [place] [address] Care Team Providers Care Almond Paste Mixer Name Role Phone Ernie Noriega MD Primary Care Provide r Reason for Visit * Reason Comments Med Refill Encounter Details Date Type Department Care Team ([facility] st Contact Info) Description 11/28/2024 Refill [facility] MEDICINE [address] [place], [place] [phone] Ernie Noriega MD [address] [place], [place] [phone] Gastritis without bleeding, unspecified chronicity, unspecified gastritis [...] Description 01/12/2025 3:00 PM EDT Office Visit [facility] MEDICINE [address] [place] [address] Ernie Noriega MD [address] [place] [address] documented as of this encounter Visit Diagnoses Diagnosis Gastritis without bleeding, unspecified chronicity, unspecified gastritis type documented in this encounter Additional Health Concerns Assessment Noted Time PHQ-9 Depression Total Score: 2 01/21/20 24 1:25 PM EDT documented as of this encounter Care Teams Almond Paste Mixer Relationship Specialty Start Date End Date Ernie Noriega MD [address] [place] [address] PCP - General Internal Medicine 08/25/19 documented as of this encounter
--- OUTSIDE RECORDS SUMMARY | 2024-12-21 10:43 | XMS_ITS ---
Author Organization [facility] Address [address] [place] [address] Care Team Providers Care Grinder Set Up Operator Name Role Phone Milton Ro MD, Ernie Primary Care Provide r Rodrick Juarez [phone] REASON FOR VISIT screening Encounters Encounter Location Date Provider Diagnosis [facility] Outpatient [address] [place], [place] [id number] 02/03/2024 Rodrick Millan Plan Of Treatment No Information Progress Notes * ISHMAEL HINOJOSADOB: 3 (59 yo F)Acc No.[id number]:02/03/2024 COLON WITH MAC Patient:?ISHMAEL HINOJOSA Provider:?Rodrick Millan MD :1965???Age:58 Y???Sex:Female D ate:02/03/2024 Address:[address] [place], [place] [address] [facility] Pcp:Ernie bonilla MD Subjective: * Chief Complaints: * ???1. Screening. * Medical History:? Objective: * Vitals:? Assessment: Plan: * Treatment: * * The named appointment provid er may or may not be the originator of this progress note, and it is not deemed complete until electronically signed by the appointment provider. Sign off status: Pending * Provider:?Rodrick Millan MD Date:? 024 Generated for Printi ng/Faanjelg/eTransmitting on:?12/21/2024 10:43 AM EDT
--- OUTSIDE RECORDS SUMMARY | 2024-12-21 10:43 | XMS_ITS | Encounter Summary ---
Author Organization [employer] [facility] Address [address] [place] [address] 7t [place] [address] Care Team Providers Care Handbag Finisher Name Role Phone Ernie Noriega MD Primary Care Provide r Encounter Details Date Type Department Care Team (Latest Contact Info) Description 03/07/2021 Abstract [facility] CONVERSIONS Dental, Provider, DDS Social History [...] EDT Office Visit [facility] MEDICINE [address] [place] [address] Ernie Noriega MD [address] [place] [address] documented as of this encounter Visit Diagnoses Not on filedocumented in this encounter Care Teams Handbag Finisher Relationship Specialty Start Date End Date Ernie Noriega MD [address] [place] [address] PCP - General Internal Medicine 08/25/19 documented as of this encounter
--- OUTSIDE RECORDS SUMMARY | 2024-12-21 10:43 | XMS_ITS ---
Author Organization [facility] Address [address] [place] [address] Care Team Providers Care Cdl Dedicated Truck Driver Name Role Phone Milton Ro MD, [facility] Primary Care Provide r Unavailable Rodrick Millan Unavailable [phone] REASON FOR VISIT screening Problems Problem Type SNOMED Code ICD Code Onset Dates Problem Status W/U Status Risk Notes Problem Diverticular disease of colon (240818658) Diverticulosis of large intestine without perforation or abscess without bleeding (K57.30) Active confirmed Encounters Encounter Location Date Provider Diagnosis [facility] Outpatient [address] [place], [place] [phone] 03/18/2024 Rodrick Millan Encounter for scre ening [...] * ISHMAEL HINOJOSADOB: 3 (59 yo F)Acc No.[id number]:03/18/2024 COLON WITH MAC Patient:?ISHMAEL HINOJOSA Provider:?Rodrick Millan MD :1965???Age:58 Y???Sex:Female D ate:03/18/2024 Address:[address] [place], [place] [address]M[facility] Pcp:Ernie bonilla MD Subjective: * Chief Complaints: * ???1. Screening. * Medical History:? Objective: * Vitals:? Assessment: * Assessment: 1.?Encounter for screening c olonoscopy - Z12.11 (Primary)???2.?Colon polyps - K63.5???3.?Diverticulosis of large intestine without perforation or abscess without bleeding - K57.30???4.?Internal hemorrhoids - K64.8??? Plan: * Treatment: * Procedure Codes:?07907 COLON OSCOPY AND BIOPSY * * The named appointment provid er may or may not be the originator of this progress note, and it is not deemed complete until electronically signed by the appointment provider. Sign off status: Pending * Provider:?Rodrick Millan MD Date:? 024 Generated for Landon westbrook/Jean-Paul/eTransmitting on:?12/21/2024 08:53 AM EDT
--- OUTSIDE RECORDS SUMMARY | 2024-12-21 10:43 | XMS_ITS | Encounter Summary ---
Author Organization [employer] Address [address] [place] [address] 7t [place] [address] Care Team Providers Care Sql Ssrs Ssis Developer Name Role Phone Ernie Noriega MD Primary Care Provide r Reason for Visit * Reason Onset Date Comments Med Refill 10/25/2023 Encounter Details Date Type Department Care Team ([facility] st Contact Info) Description 10/25/2023 Refill [facility] CL[facility]IC [address] [place] [address] Perlita Woody MD [address] [place] [address] Primary hypertension Social History Tobacco Use Types [...] Description 01/12/2025 3:00 PM EDT Office Visit [facility] MEDICINE [address] [place] [address] Ernie Noriega MD [address] [place] [address] documented as of this encounter Visit Diagnoses Diagnosis Primary hypertension Unspecified essential hypertension documented in this encounter Additional Health Concerns Assessment Noted Time PHQ-9 Depression Total Score: 0 12/02/19 23 2:38 PM EST documented as of this encounter Care Teams Sql Ssrs Ssis Developer Relationship Specialty Start Date End Date Ernie Noriega MD [address] [place] [address] PCP - General Internal Medicine 08/25/19 documented as of this encounter
--- OUTSIDE RECORDS SUMMARY | 2024-12-21 10:43 | XMS_ITS | Encounter Summary ---
Author Organization [employer] Address [address] [place] [address] 7t [place] [address] Care Team Providers Care Sales Representative Metals Name Role Phone Ernie Noriega MD Primary Care Provide r Reason for Visit * Reason Onset Date Comments Med Refill 10/27/2023 Encounter Details Date Type Department Care Team ([facility] st Contact Info) Description 10/27/2023 Refill [facility] MEDICINE [address] [place] [address] Ernie Noriega MD [address] [place] [address] Mild persistent asthma without complication; Pain; Chronic [...] 01/12/2025 3:00 PM EDT Office Visit [facility] MEDICINE [address] [place] [address] Ernie Noriega MD [address] [place] [address] documented as of this encounter Visit Diagnoses Diagnosis Mild persistent asthma without complication Pain Generalized pain Chronic midline low back pain without sciatica Cervical radiculopathy Brachial neuritis or radiculitis nos documented in this encounter Additional Health Concerns Assessment Noted Time PHQ-9 Depression Total Score: 0 12/02/19 23 2:38 PM EST documented as of this encounter Care Teams Sales Representative Metals Relationship Specialty Start Date End Date Ernie Noriega MD [address] [place] [address] PCP - General Internal Medicine 08/25/19 documented as of this encounter
--- OUTSIDE RECORDS SUMMARY | 2024-12-21 10:43 | XMS_ITS | Encounter Summary ---
Author Organization [employer] Address [address] [place] [address] 7t [place] [address] Care Team Providers Care Marine Pilot Name Role Phone Ernie Noriega MD Primary Care Provide r Reason for Visit * Reason Onset Date Comments Med Refill 11/04/2023 Encounter Details Date Type Department Care Team ([facility] st Contact Info) Description 11/04/2023 Refill [facility] MEDICINE [address] [place] [address] Ernie Noriega MD [address] [place] [address] Chronic midline low back pain without sciatica; [...] Description 01/12/2025 3:00 PM EDT Office Visit [facility] MEDICINE [address] [place] [address] Ernie Noriega MD [address] [place] [address] documented as of this encounter Visit Diagnoses Diagnosis Chronic midline low back pain without sciatica Cervical radiculopathy Brachial neuritis or radiculitis nos Seasonal allergies Allergic rhinitis, cause unspecified documented in this encounter Additional Health Concerns Assessment Noted Time PHQ-9 Depression Total Score: 0 12/02/19 23 2:38 PM EST documented as of this encounter Care Teams Marine Pilot Relationship Specialty Start Date End Date Ernie Noriega MD [address] [place] [address] PCP - General Internal Medicine 08/25/19 documented as of this encounter
--- OUTSIDE RECORDS SUMMARY | 2024-12-21 10:43 | XMS_ITS | Referral Summary ---
Author Organization [facility] Address [address] [place] [address] Care Team Providers Care Textile Bag Sewer Name Role Phone Ernie Merritt Primary Care Provider + Encounters Date Type Department Care Team Description 12/14/2024 9:00 AM EST Office Visit [facility] [address] [place] [address] Christopher Peres MD Chronic bilateral low back pain with bilateral sciatica (Primary Dx); H/O cervical spine surgery 12/13/2024 Telephone [facility] [address] [place] [address] Christopher Peres MD 12/08/2024 Telephone [facility] [address] [place] [address] Christopher Peres MD 11/01/2024 Orders Only [facility] - External Imaging [address] [place] [address] Radiology, External from Last 3 Months Allergies No known active allergies Medications acetaminophen [...] propionate (FLONASE) 50 mcg/actuation nasal spray [employer] [place](s) Both Nares Twice Daily 3 Active tamsulosin [...] Sign Reading Time Taken Comments Blood Pressure 125/74 12/14/2024 9:13 AM EST Pulse 59 12/14/2024 9:13 AM EST Temperature 36.8 ??C (98.3 ??F) 03/19/2023 1:15 PM ED T Respiratory Rate 18 12/14/2024 9:13 AM EST Oxygen Saturation 99% 12/14/2024 9:13 AM EST Inhaled Oxygen Concentration - - Weight 77 kg (169 lb 12.1 oz) 03/19/2023 1:15 PM EDT Height 160 cm (5' 3 ) 03/19/2023 1:15 PM EDT Body Mass Index 30.07 03/19/2023 1:15 PM EDT Plan of Treatment Upcoming Encounters Date Type Department Care Team (Late st Contact Info) Description 03/14/2025 3:00 PM EDT Follow-Up [facility] [address] [place] [address] Christopher Peres MD [address] [place] [address] Procedures * Due to [place] [employer] law, this organization might not be sharing negative HIV tests. Procedure Name Priority Date/Time Associated Diagnosis Comments XR SCOLIOSIS 1 VIEW Routine 12/14/2024 1 0:30 AM EST Chronic bilateral low back pain with bilateral sciatica XR LUMBAR SPINE 4+ VIEWS INCLUDING FLEXION/EXTENSION Routine 12/14/2024 10:30 AM EST Chronic bilateral low back pain with bilateral sciatica AMB EXTERNAL MRI THORACIC AND LUMBAR SPINE, OUTSIDE RESULT 11/01/2024 from Last 3 Months Results * Due to [place] [employer] law, this organization might not be sharing negative HIV tests. * X-ray lumbar spine flexion and extension only 4+ views (12/14/2024 10:30 AM EST) Anatomical Region Laterality Modality Spine, L-spine Computed Radiogr aphy 12/14/2024 4:32 PM EST Impressions 12/14/2024 5:30 PM EST FINDINGS/IMPRESSION: Lumbar spine: The normal lumbar lordosis is straightened. ??Grade 1 anterolisthesis of L2-L3 similar with flexion relative to extension. ??Mild retrolisthesis of T12-L1 decreases with ??flexion relative to extension. ??Prior posterior instrumented spinal fusion of L3-L4 with paired posterior rods and transpedicular screws with interbody device. ??Prior interbody fusions of L4-L5 and L5-S1. ??No radiographic evidence of hardware complications. ??There is chronic appearing mild loss of height of the L2 and T12 vertebral bodies; recommend correlation for point tenderness at these levels. ??Multilevel disc degeneration, moderate to severe at L2-L3 and T12-L1. ??Multilevel facet arthropathy. Scoliosis series: Large field of view imaging precludes fine osseous and soft tissue evaluation. ??Images were obtained for biometric analysis. ??There is shallow S-shaped scoliotic curvature the thoracolumbar spine. ??Multilevel degenerative changes of the partially cervical and thoracic spine. ??Multilevel flowing ossification bridging multiple thoracic vertebral bodies, in keeping with diffuse idiopathic skeletal hyperostosis (DISH). ??Prior disc replacement within the cervical spine. ??The sacroiliac joints are congruent. ??The sacrum is obscured by overlying soft tissue structures. If this radiology report contains a blank impression section, it is an incomplete radiology report. ??Please contact the interpreting radiologist or applicable radiology division as soon as possible to obtain the completed interpretation. ? Workstation ID: [id number] Narrative 12/14/2024 5:30 PM EST COMPARISON: There are no prior studies available for comparison at this time. Resulting Agency Comment [id number] Procedure Note Stone Reid MD - 12/14/2024 COMPARISON: There are no prior studies available for comparison at thistime. IMPRESSION: FINDINGS/IMPRESSION: Lumbar spine: The normal lumbar lordosis is straightened. Grade 1anterolisthesis of L2-L3 similar with flexion relative to extension. Mildretrolisthesis of T12-L1 decreases with flexion relative to extension.Prior posterior instrumented spinal fusion of L3-L4 with paired posteriorrods and transpedicular screws with interbody device. Prior interbodyfusions of L4-L5 and L5-S1. No radiographic evidence of hardwarecomplications. There is chronic appearing mild loss of height of the L2and T12 vertebral bodies; recommend correlation for point tenderness atthese levels. Multilevel disc degeneration, moderate to severe at L2-L3and T12-L1. Multilevel facet arthropathy. Scoliosis series: Large field of view imaging precludes fine osseous andsoft tissue evaluation. Images were obtained for biometric analysis.There is shallow S- shaped scoliotic curvature the thoracolumbar spine.Multilevel degenerative changes of the partially cervical and thoracicspine. Multilevel flowing ossification bridging multiple thoracicvertebral bodies, in keeping with diffuse idiopathic skeletal hyperostosis(DISH). Prior disc replacement within the cervical spine. The sacroiliacjoints are congruent. The sacrum is obscured by overlying soft tissuestructures. If this radiology report contains a blank impression section, it is anincomplete radiology report. Please contact the interpreting radiologistor applicable radiology division as soon as possible to obtain thecompleted interpretation. Workstation ID: [id number] us Christopher Peres MD IMG XR PROCEDURES Final Res ult * XR Scoliosis 1 View (12/14/2024 10:30 AM EST) Anatomical Region Laterality Modality Spine Computed Radiogr aphy 12/14/2024 4:32 PM EST Impressions 12/14/2024 5:30 PM EST FINDINGS/IMPRESSION: Lumbar spine: The normal lumbar lordosis is straightened. ??Grade 1 anterolisthesis of L2-L3 similar with flexion relative to extension. ??Mild retrolisthesis of T12-L1 decreases with ??flexion relative to extension. ??Prior posterior instrumented spinal fusion of L3-L4 with paired posterior rods and transpedicular screws with interbody device. ??Prior interbody fusions of L4-L5 and L5-S1. ??No radiographic evidence of hardware complications. ??There is chronic appearing mild loss of height of the L2 and T12 vertebral bodies; recommend correlation for point tenderness at these levels. ??Multilevel disc degeneration, moderate to severe at L2-L3 and T12-L1. ??Multilevel facet arthropathy. Scoliosis series: Large field of view imaging precludes fine osseous and soft tissue evaluation. ??Images were obtained for biometric analysis. ??There is shallow S-shaped scoliotic curvature the thoracolumbar spine. ??Multilevel degenerative changes of the partially cervical and thoracic spine. ??Multilevel flowing ossification bridging multiple thoracic vertebral bodies, in keeping with diffuse idiopathic skeletal hyperostosis (DISH). ??Prior disc replacement within the cervical spine. ??The sacroiliac joints are congruent. ??The sacrum is obscured by overlying soft tissue structures. If this radiology report contains a blank impression section, it is an incomplete radiology report. ??Please contact the interpreting radiologist or applicable radiology division as soon as possible to obtain the completed interpretation. ? Workstation ID: [id number] Narrative 12/14/2024 5:30 PM EST COMPARISON: There are no prior studies available for comparison at this time. Resulting Agency Comment [id number] Procedure Note Stone Reid MD - 12/14/2024 COMPARISON: There are no prior studies available for comparison at thistime. IMPRESSION: FINDINGS/IMPRESSION: Lumbar spine: The normal lumbar lordosis is straightened. Grade 1anterolisthesis of L2-L3 similar with flexion relative to extension. Mildretrolisthesis of T12-L1 decreases with flexion relative to extension.Prior posterior instrumented spinal fusion of L3-L4 with paired posteriorrods and transpedicular screws with interbody device. Prior interbodyfusions of L4-L5 and L5-S1. No radiographic evidence of hardwarecomplications. There is chronic appearing mild loss of height of the L2and T12 vertebral bodies; recommend correlation for point tenderness atthese levels. Multilevel disc degeneration, moderate to severe at L2-L3and T12-L1. Multilevel facet arthropathy. Scoliosis series: Large field of view imaging precludes fine osseous andsoft tissue evaluation. Images were obtained for biometric analysis.There is shallow S- shaped scoliotic curvature the thoracolumbar spine.Multilevel degenerative changes of the partially cervical and thoracicspine. Multilevel flowing ossification bridging multiple thoracicvertebral bodies, in keeping with diffuse idiopathic skeletal hyperostosis(DISH). Prior disc replacement within the cervical spine. The sacroiliacjoints are congruent. The sacrum is obscured by overlying soft tissuestructures. If this radiology report contains a blank impression section, it is anincomplete radiology report. Please contact the interpreting radiologistor applicable radiology division as soon as possible to obtain thecompleted interpretation. Workstation ID: [id number] us Christopher Peres MD IMG XR PROCEDURES Final Res ult * MRI Thoracic and Lumbar Spine, Outside Result (11/01/2024) Anatomical Region Laterality Modality Other 11/01/2024 us Onbase Scan Carol AMB EXTERNAL RESULT PROCEDURE S Final Result from Last 3 Months [facility] [address] [place], [place] [address]HEALTH Care Teams Textile Bag Sewer Relationship Specialty Start Date End Date Ernie Merritt [address] [place] [address] [place] [address] PCP - General Internal Medicine 11/29/24
--- OUTSIDE RECORDS SUMMARY | 2024-12-21 10:43 | XMS_ITS | Encounter Summary ---
Author Organization [employer] Address [address] [place] [address] 7t [place] [address] Care Team Providers Care Associate Store Leader Name Role Phone Ernie Noriega MD Primary Care Provide r Reason for Visit * Reason Comments Med Refill Encounter Details Date Type Department Care Team ([facility] st Contact Info) Description 08/28/2023 Refill [facility] [address] [place] [address] Perlita Woody MD [address] [place] [address] Primary hypertension Social History Tobacco Use Types [...] Description 01/12/2025 3:00 PM EDT Office Visit [facility] MEDICINE [address] [place] [address] Ernie Noriega MD [address] [place] [address] documented as of this encounter Visit Diagnoses Diagnosis Primary hypertension Unspecified essential hypertension documented in this encounter Additional Health Concerns Assessment Noted Time PHQ-9 Depression Total Score: 0 12/02/19 23 2:38 PM EST documented as of this encounter Care Teams Associate Store Leader Relationship Specialty Start Date End Date Ernie Noriega MD [address] [place] [address] PCP - General Internal Medicine 08/25/19 documented as of this encounter
--- OUTSIDE RECORDS SUMMARY | 2024-12-21 10:43 | XMS_ITS | Encounter Summary ---
Author Organization [employer] Address [address] [facility] 7t [place] [address] Care Team Providers Care Pie Bottomer Name Role Phone Ernie Noriega MD Primary Care Provide r Reason for Visit * Reason Onset Date Comments Med Refill 09/18/2023 Encounter Details Date Type Department Care Team ([facility] st Contact Info) Description 09/18/2023 Refill [facility] [address] [place] [address] Ernie Noriega MD [address] [facility] [place] [address] Chronic midline low back pain without sciatica; [...] PM EDT Office Visit [facility] MEDICINE [address] [place] [address] Ernie Noriega MD [address] [place] [address] documented as of this encounter Visit Diagnoses Diagnosis Chronic midline low back pain without sciatica Cervical radiculopathy Brachial neuritis or radiculitis nos documented in this encounter Additional Health Concerns Assessment Noted Time PHQ-9 Depression Total Score: 0 12/02/19 23 2:38 PM EST documented as of this encounter Care Teams Pie Bottomer Relationship Specialty Start Date End Date Ernie Noriega MD [address] [place] [address] PCP - General Internal Medicine 08/25/19 documented as of this encounter
--- OUTSIDE RECORDS SUMMARY | 2024-12-21 10:43 | XMS_ITS | Encounter Summary ---
Author Organization [employer] [facility] Address [address] [place] [address] 7t [place] [address] Care Team Providers Care Wired Sweatband Cutter Name Role Phone Ernie Noriega MD Primary Care Provide r Encounter Details Date Type Department Care Team (Late st Contact Info) Description 04/13/2023 Orders Only [facility] [address] [place] [address] [phone] Sugar Mitchell MD [address] [place] [address] [phone] Neuropathic pain of right lower extremity (Primary [...] PM EDT Office Visit [facility] [address] [place] [phone] Ernie Noriega MD [address] [place], [place] [phone] documented as of this encounter Procedures Procedure Name Priority Date/Time Associated Diagnosis Comments BASIC METABOLIC PANEL Routine 05/13/2023 8:40 AM EDT Neuropathic pain of right lower extremity documented in this encounter Results * (ABNORMAL) Basic Metabolic Panel (05/13/2023 8:40 AM EDT) Sodium 141 135 - 145 mmol/L [facility] Potassium 3.5 3.3 - 5.1 mmol/L [facility] Chloride 103 96 - 108 mmol/L [facility] Carbon Dioxide 23 22 - 29 mmol/L [facility] Anion Gap 19 12 - 20 [facility] Urea Nitrogen (BUN) 15 9 - 16 mg/dL [facility] Creatinine, Serum 0.78 0.5 - 1.4 mg/dL [facility] Estimated Glomerular Filt Rate >60 [facility] Comment:NOTE: For -Am erican individuals, multiply the result by 1.210.Chronic Kidney Disease: Estimated GFR < 60 mL/min/[id number] Kidney Disease: Estimated GFR < 15 mL/min/1.73m2 Glucose 151(H) 60 - 115 mg/dL [facility] Calcium 9.3 8.4 - 10.2 mg/dL [facility] Blood Venous blood specimen / Unknown 05/13/2023 8:40 AM EDT 05/13/2023 11:14 AM EDT us Sugar Mitchell MD LAB BLOOD ORDERABLES Final Resul t [facility] [address] [place] [address] [phone] documented in this encounter Visit Diagnoses Diagnosis Neuropathic pain of right lower extremity- Primary documented in this encounter Additional Health Concerns Assessment Noted Time PHQ-9 Depression Total Score: 0 12/02/19 23 2:38 PM EST documented as of this encounter Care Teams Wired Sweatband Cutter Relationship Specialty Start Date End Date Ernie Noriega MD [address] [place] [address] PCP - General Internal Medicine 08/25/19 documented as of this encounter
--- OUTSIDE RECORDS SUMMARY | 2024-12-21 10:43 | XMS_ITS | Encounter Summary ---
Author Organization [employer] Address [address] [place] [address] 7t [place] [address] Care Team Providers Care Osteopathic Resident Name Role Phone Ernie Noriega MD Primary Care Provide r Reason for Visit * Reason Comments Med Refill Encounter Details Date Type Department Care Team ([facility] st Contact Info) Description 10/11/2023 Refill [facility] [address] [place] [address] Ernie Noriega MD [address] [place] [address] Social History Tobacco Use Types Packs/Day Years [...] Description 01/12/2025 3:00 PM EDT Office Visit [facility] [address] [place] [address] Ernie Noriega MD [address] [place] [address] documented as of this encounter Visit Diagnoses Not on filedocumented in this encounter Additional Health Concerns Assessment Noted Time PHQ-9 Depression Total Score: 0 12/02/19 23 2:38 PM EST documented as of this encounter Care Teams Osteopathic Resident Relationship Specialty Start Date End Date Ernie Noriega MD [address] [place] [address] PCP - General Internal Medicine 08/25/19 documented as of this encounter
--- OUTSIDE RECORDS SUMMARY | 2024-12-21 10:43 | XMS_ITS | Clinical Summary ---
Author Organization [facility] Address [address] [place] [address] Care Team Providers Care Medical Imaging Technician Name Role Phone Ernie Merritt Primary Care [...] propionate (FLONASE) 50 mcg/actuation nasal spray [employer] [place](s) Both Nares Twice Daily 3 Active tamsulosin [...] The Skin 09/24/2010 Anxiety Disorder NOS 09/24/2010 Encounters Date Type Department Care Team Description 12/14/2024 9:00 AM EST Office Visit [facility] [address] [place] [address] Christopher Peres MD Chronic bilateral low back pain with bilateral sciatica (Primary Dx); H/O cervical spine surgery 12/13/2024 Telephone [facility] [address] [place] [phone] Christopher Peres MD 12/08/2024 Telephone [facility] [address] [place] [address] Christopher Peres MD 11/01/2024 Orders Only [facility] - External Imaging [address] [place] [address] Radiology, External from Last 3 Months Social History Tobacco Use Types Packs/Day Years [...] Info) Description 03/14/2025 3:00 PM EDT Follow-Up [facility] Clinic [address] [place] [address] Christopher Peres MD [address] [place], [place] [phone] Health Maintenance Due Date Last Done Comments [...] Screening 10/12/2024 Depression Screening and Follow-Up 10/12/2024 Social Drivers of Health Annual Screening 10/12/2024 Mammogram 12/23/2024 [...] patient's age to complete this topic Procedures * Due to [place] [employer] law, this organization might not be sharing [...] Last 3 Months Results * Due to [place] [employer] law, this organization might not be sharing [...] obtain the completed interpretation. ? Workstation ID: [id number] Narrative 12/14/2024 5:30 PM EST COMPARISON: There are no prior studies available for comparison at this time. Resulting Agency Comment [id number] Procedure Note Stone Reid MD - 12/14/2024 [...] possible to obtain thecompleted interpretation. Workstation ID: [id number] us Christopher Peres MD IMG XR PROCEDURES [...] obtain the completed interpretation. ? Workstation ID: [id number] Narrative 12/14/2024 5:30 PM EST COMPARISON: There are no prior studies available for comparison at this time. Resulting Agency Comment [id number] Procedure Note Stone Reid MD - 12/14/2024 [...] possible to obtain thecompleted interpretation. Workstation ID: [id number] us Christopher Peres MD IMG XR PROCEDURES Final Res ult * MRI Thoracic and Lumbar Spine, Outside Result (11/01/2024) Anatomical Region Laterality Modality Other 11/01/2024 us Onbase Scan Carol AMB EXTERNAL RESULT PROCEDURE S Final Result from Last 3 Months Insurance [facility] Care Teams Medical Imaging Technician Relationship Specialty Start Date End Date Ernie Merritt [address] [place] [address] PCP - General Internal Medicine 11/29/24
--- OUTSIDE RECORDS SUMMARY | 2024-12-21 10:43 | XMS_ITS | Encounter Summary ---
Author Organization [employer] Address [address] [place] [address] 7t [place] [address] Care Team Providers Care Industrial Relations Representative Name Role Phone Ernie Noriega MD Primary Care Provide r Reason for Visit * Reason Onset Date Comments Med Refill 10/27/2023 Encounter Details Date Type Department Care Team ([facility] st Contact Info) Description 10/27/2023 Refill [facility] [address] [place] [address] Perlita Woody MD [address] [place] [address] Primary hypertension Social History Tobacco Use Types [...] 3:00 PM EDT Office Visit [facility] [address] [place] [address] Ernie Noriega MD [address] [place] [address] documented as of this encounter Visit Diagnoses Diagnosis Primary hypertension Unspecified essential hypertension documented in this encounter Additional Health Concerns Assessment Noted Time PHQ-9 Depression Total Score: 0 12/02/19 23 2:38 PM EST documented as of this encounter Care Teams Industrial Relations Representative Relationship Specialty Start Date End Date Ernie Noriega MD [address] [place] [address] PCP - General Internal Medicine 08/25/19 documented as of this encounter
--- OUTSIDE RECORDS SUMMARY | 2024-12-21 10:43 | XMS_ITS | Encounter Summary ---
Author Organization [employer] Address [address] [place] [address] 7t [place] [address] Care Team Providers Care Bead Preparer Name Role Phone Ernie Noriega MD Primary Care Provide r Reason for Visit * Reason Onset Date Comments Med Refill 04/24/2024 Encounter Details Date Type Department Care Team ([facility] st Contact Info) Description 04/24/2024 Refill [facility] [address] [place] [address] Ernie Noriega MD [address] [place] [address] Essential hypertension Social History Tobacco Use Types [...] Description 01/12/2025 3:00 PM EDT Office Visit [facility] [address] [place] [address] Ernie Noriega MD [address] [place] [address] documented as of this encounter Visit Diagnoses Diagnosis Essential hypertension Unspecified essential hypertension documented in this encounter Additional Health Concerns Assessment Noted Time PHQ-9 Depression Total Score: 2 01/21/20 24 1:25 PM EDT documented as of this encounter Care Teams Bead Preparer Relationship Specialty Start Date End Date Ernie Noriega MD [address] [place] [address] PCP - General Internal Medicine 08/25/19 documented as of this encounter
--- OUTSIDE RECORDS SUMMARY | 2024-12-21 10:43 | XMS_ITS | Encounter Summary ---
Author Organization [facility] Address [address] 7t [place] [address] Care Team Providers Care Hoe Worker Name Role Phone Ernie Noriega MD Primary Care Provide r Reason for Visit * Reason Onset Date Comments Med Refill Referral 12/10/2022 Patient walked i n requesting for referral to a neurologist. It is difficult for her to walk and do her [place] activities. Pt has had [facility] go to her house for therapy, but it has not made any improvements. Encounter Details Date Type Department Care Team (Late st Contact Info) Description 12/10/2022 Refill [facility] [address] [place], [place] [phone] Ernie Noriega MD [address] [place], [place] [phone] Pain Social History Tobacco Use Types Packs/Day [...] 01/12/2025 3:00 PM EDT Office Visit [facility] [address] [place] [address] Ernie Noriega MD [address] [place] [address] documented as of this encounter Visit Diagnoses Diagnosis Pain Generalized pain documented in this encounter Additional Health Concerns Assessment Noted Time PHQ-9 Depression Total Score: 0 12/02/19 23 2:38 PM EST documented as of this encounter Care Teams Hoe Worker Relationship Specialty Start Date End Date Ernie Noriega MD [address] [place] [address] PCP - General Internal Medicine 08/25/19 documented as of this encounter
--- OUTSIDE RECORDS SUMMARY | 2024-12-21 10:43 | XMS_ITS | Encounter Summary ---
Author Organization [employer] Address [address] [place] [address] 7t [place] [address] Care Team Providers Care Assembler For Puller Over Machine Name Role Phone Ernie Noriega MD Primary Care Provide r Reason for Visit * Reason Onset Date Comments Med Refill 08/17/2023 Encounter Details Date Type Department Care Team ([facility] st Contact Info) Description 08/17/2023 Telephone [facility] [address] [place], [place] [phone] Ernie Noriega MD [address] [place], [place] [phone] Med Refill Social History Tobacco Use Types [...] (Ultram) 50 MG tablet Please sent to [facility]/pharmacy #[id number] [place], [place] - [address] [place] [address] documented in this encounter Plan of Treatment Upcoming Encounters Date Type Department Care Team (Late st Contact Info) Description 01/12/2025 3:00 PM EDT Office Visit [facility] [address] [place] [address] Ernie Noriega MD [address] [place] [address] documented as of this encounter Visit Diagnoses Not on filedocumented in this encounter Additional Health Concerns Assessment Noted Time PHQ-9 Depression Total Score: 0 12/02/19 23 2:38 PM EST documented as of this encounter Care Teams Assembler For Puller Over Machine Relationship Specialty Start Date End Date Ernie Noriega MD [address] [place] [address] PCP - General Internal Medicine 08/25/19 documented as of this encounter
--- OUTSIDE RECORDS SUMMARY | 2024-12-21 10:43 | XMS_ITS | Encounter Summary ---
Author Organization [employer] Address [address] [place] [address] 7t [place] [address] Care Team Providers Care Emergency Medicine Name Role Phone Ernie Noriega MD Primary Care Provide r Reason for Visit * Reason Onset Date Comments Med Refill 09/18/2023 Encounter Details Date Type Department Care Team ([facility] st Contact Info) Description 09/18/2023 Telephone [facility] [address] [place] [address] Ernie Noriega MD [address] [place], [place] [phone] Med Refill Social History Tobacco Use Types [...] 50 MG tablet Please sent to [facility]/pharmacy #[id number] [place], [place] - [address] [place] [address] documented in this encounter Plan of Treatment Upcoming Encounters Date Type Department Care Team (Late st Contact Info) Description 01/12/2025 3:00 PM EDT Office Visit [facility] [address] [place], [place] [phone] Ernie Noriega MD [address] [place] [address] documented as of this encounter Visit Diagnoses Not on filedocumented in this encounter Additional Health Concerns Assessment Noted Time PHQ-9 Depression Total Score: 0 12/02/19 23 2:38 PM EST documented as of this encounter Care Teams Emergency Medicine Relationship Specialty Start Date End Date Ernie Noriega MD [address] [place], [place] [phone] PCP - General Internal Medicine 08/25/19 documented as of this encounter
--- OUTSIDE RECORDS SUMMARY | 2024-12-21 10:43 | XMS_ITS | Encounter Summary ---
Author Organization [facility] Address [address] [place] [address] Care Team Providers Care Director Federal Name Role Phone Ernie Merritt Primary Care Provider + Encounter Details Date Type Department Care Team (Late st Contact Info) Description 12/08/2024 Telephone [facility] [address] [place] [address] Christopher Peres MD [address] [place], [place] [phone] Social History Tobacco Use Types Packs/Day Years [...] encounter Miscellaneous Notes * Telephone Encounter - Allyn Macario - 12/08/2024 3:41 PM EST Patient called back and we got assembly associate Rodger ID [id number] on the line. We rescheduled appointment with Dr. Peres for 12/15 at 8:00 am. Patient is aware of date, time and location and ok with these changes. * Telephone Encounter - Allyn Macario - 12/08/2024 3:27 PM EST Called patient using assembly associate Perlita ID [id number] and left voicemail with both patient and asking for a call back to reschedule Thursday's appointment with another provider. Patient should be scheduled with Dr. Peres. documented in this encounter Plan of Treatment Upcoming Encounters Date Type Department Care Team (Late st Contact Info) Description 03/14/2025 3:00 PM EDT Follow-Up [facility] [address] [place], [place] [phone] Christopher Peres MD [address] [place], [place] [phone] documented as of this encounter Visit Diagnoses Not on filedocumented in this encounter Care Teams Director Federal Relationship Specialty Start Date End Date Ernie Merritt [address] [place] [address] PCP - General Internal Medicine 11/29/24 documented as of this encounter
--- OUTSIDE RECORDS SUMMARY | 2024-12-21 10:43 | XMS_ITS | Encounter Summary ---
Author Organization [employer] Address [address] [place] [address] 7t [place] [address] Care Team Providers Care Data Analytics Developer Name Role Phone Ernie Noriega MD Primary Care Provide r Reason for Visit * Reason Comments Med Refill Encounter Details Date Type Department Care Team ([facility] st Contact Info) Description 08/10/2023 Refill [facility] [address] [place] [address] Perlita Woody MD [address] [place] [address] Seasonal allergies; Primary hypertension Social History Tobacco [...] Description 01/12/2025 3:00 PM EDT Office Visit [facility] [address] [place] [address] Ernie Noriega MD [address] [place] [address] documented as of this encounter Visit Diagnoses Diagnosis Seasonal allergies Allergic rhinitis, cause unspecified Primary hypertension Unspecified essential hypertension documented in this encounter Additional Health Concerns Assessment Noted Time PHQ-9 Depression Total Score: 0 12/02/19 23 2:38 PM EST documented as of this encounter Care Teams Data Analytics Developer Relationship Specialty Start Date End Date Ernie Noriega MD [address] [place] [address] PCP - General Internal Medicine 08/25/19 documented as of this encounter
--- OUTSIDE RECORDS SUMMARY | 2024-12-21 10:43 | XMS_ITS | Encounter Summary ---
Author Organization [employer] Address [address] [place] [address] 7t [place] [address] Care Team Providers Care Africana Studies Professor Name Role Phone Ernie Noriega MD Primary Care Provide r Reason for Visit * Reason Onset Date Comments Med Refill 11/04/2023 Encounter Details Date Type Department Care Team ([facility] st Contact Info) Description 11/04/2023 Refill [facility] [address] [place] [address] Ernie Noriega MD [address] [place] [address] Pain Social History Tobacco Use Types Packs/Day [...] 3:00 PM EDT Office Visit [facility] [address] [place] [address] Ernie Noriega MD [address] [place] [address] documented as of this encounter Visit Diagnoses Diagnosis Pain Generalized pain documented in this encounter Additional Health Concerns Assessment Noted Time PHQ-9 Depression Total Score: 0 12/02/19 23 2:38 PM EST documented as of this encounter Care Teams Africana Studies Professor Relationship Specialty Start Date End Date Ernie Noriega MD [address] [place] [address] PCP - General Internal Medicine 08/25/19 documented as of this encounter
--- OUTSIDE RECORDS SUMMARY | 2024-12-21 10:43 | XMS_ITS | Encounter Summary ---
Author Organization [employer] Address [address] [place] [address] 7t [place] [address] Care Team Providers Care Lead Pressman Name Role Phone Ernie Noriega MD Primary Care Provide r Reason for Visit * Reason Onset Date Comments Med Refill 10/27/2023 Encounter Details Date Type Department Care Team ([facility] st Contact Info) Description 10/27/2023 Refill [facility] [address] [place] [address] Ernie Noriega MD [address] [place] [address] Seasonal allergies; Pain Social History Tobacco Use [...] Description 01/12/2025 3:00 PM EDT Office Visit [facility] [address] [place] [address] Ernie Noriega MD [address] [place] [address] documented as of this encounter Visit Diagnoses Diagnosis Seasonal allergies Allergic rhinitis, cause unspecified Pain Generalized pain documented in this encounter Additional Health Concerns Assessment Noted Time PHQ-9 Depression Total Score: 0 12/02/19 23 2:38 PM EST documented as of this encounter Care Teams Lead Pressman Relationship Specialty Start Date End Date Ernie Noriega MD [address] [place] [address] PCP - General Internal Medicine 08/25/19 documented as of this encounter
--- OUTSIDE RECORDS SUMMARY | 2024-12-21 10:43 | XMS_ITS | Encounter Summary ---
Author Organization [employer] Address [address] [place] [address] 7t [place] [address] Care Team Providers Care Crop Nutrition Scientist Name Role Phone Ernie Noriega MD Primary Care Provide r Reason for Visit * Reason Comments Med Refill Encounter Details Date Type Department Care Team ([facility] st Contact Info) Description 10/16/2023 Refill [facility] [address] [place], [place] [phone] Ernie Noriega MD [address] [place] [address] Pain Social History Tobacco Use Types Packs/Day [...] 3:00 PM EDT Office Visit [facility] [address] [place] [address] Ernie Noriega MD [address] [place] [address] documented as of this encounter Visit Diagnoses Diagnosis Pain Generalized pain documented in this encounter Additional Health Concerns Assessment Noted Time PHQ-9 Depression Total Score: 0 12/02/19 23 2:38 PM EST documented as of this encounter Care Teams Crop Nutrition Scientist Relationship Specialty Start Date End Date Ernie Noriega MD [address] [place] [address] PCP - General Internal Medicine 08/25/19 documented as of this encounter
--- OUTSIDE RECORDS SUMMARY | 2024-12-21 10:43 | XMS_ITS | Encounter Summary ---
Author Organization [employer] Address [address] [place] [address] 7t [place] [address] Care Team Providers Care Chaser Apprentice Name Role Phone Ernie Noriega MD Primary Care Provide r Reason for Visit * Reason Comments Med Refill Encounter Details Date Type Department Care Team ([facility] st Contact Info) Description 08/26/2023 Refill [facility] [address] [place] [address] Perlita Woody MD [address] [place] [address] Seasonal allergies Social History Tobacco Use Types [...] Office Visit [facility] [address] [place] [address] Ernie Noriega MD [address] [place] [address] documented as of this encounter Visit Diagnoses Diagnosis Seasonal allergies Allergic rhinitis, cause unspecified documented in this encounter Additional Health Concerns Assessment Noted Time PHQ-9 Depression Total Score: 0 12/02/19 23 2:38 PM EST documented as of this encounter Care Teams Chaser Apprentice Relationship Specialty Start Date End Date Ernie Noriega MD [address] [place] [address] PCP - General Internal Medicine 08/25/19 documented as of this encounter
--- OUTSIDE RECORDS SUMMARY | 2024-12-21 10:43 | XMS_ITS | Encounter Summary ---
Author Organization [employer] Address [address] [place] [address] 7t [place] [address] Care Team Providers Care Sieve Grader Tender Name Role Phone Ernie Noriega MD Primary Care Provide r Reason for Visit * Reason Comments Med Refill Encounter Details Date Type Department Care Team ([facility] st Contact Info) Description 11/20/2023 Refill [facility] [address] [place], [place] [phone] Ernie Noriega MD [address] [place] [address] Pain Social History Tobacco Use Types Packs/Day [...] 3:00 PM EDT Office Visit [facility] [address] [place] [address] Ernie Noriega MD [address] [place] [address] documented as of this encounter Visit Diagnoses Diagnosis Pain Generalized pain documented in this encounter Additional Health Concerns Assessment Noted Time PHQ-9 Depression Total Score: 0 12/02/19 23 2:38 PM EST documented as of this encounter Care Teams Sieve Grader Tender Relationship Specialty Start Date End Date Ernie Noriega MD [address] [place] [address] PCP - General Internal Medicine 08/25/19 documented as of this encounter
--- OUTSIDE RECORDS SUMMARY | 2024-12-21 10:43 | XMS_ITS | Encounter Summary ---
Author Organization [employer] [facility] Address [address] [place] [address] 7t [place] [address] Care Team Providers Care Cyber Security Systems Engineer Name Role Phone Ernie Noriega MD Primary Care Provide r Encounter Details Date Type Department Care Team (Latest Contact Info) Description 06/19/2022 Abstract [facility] CON[facility]S Dental, Provider, DDS Social History [...] Description 01/12/2025 3:00 PM EDT Office Visit [facility] [address] [place] [address] Ernie Noriega MD [address] [place] [address] documented as of this encounter Visit Diagnoses Not on filedocumented in this encounter Care Teams Cyber Security Systems Engineer Relationship Specialty Start Date End Date Ernie Noriega MD [address] [place] [address] PCP - General Internal Medicine 08/25/19 documented as of this encounter
--- OUTSIDE RECORDS SUMMARY | 2024-12-21 10:43 | XMS_ITS | Encounter Summary ---
Author Organization [employer] [facility] Address [address] [place] [address] 7t [place] [address] Care Team Providers Care Daily Sales Audit Clerk Name Role Phone Ernie Noriega MD Primary Care Provide r Encounter Details Date Type Department Care Team ([facility] Contact Info) Description 12/09/2022 Orders Only [facility] PEDIATR[facility] [address] [place] [address] Suha Alexander, RN Social History Tobacco [...] Upcoming Encounters Date Type Department Care Team ([facility] Contact Info) Description 01/12/2025 3:00 PM EDT Office Visit [facility] MEDICINE [address] [place] [address] Ernie Noriega MD [address] [place] [address] documented as of this encounter Procedures Procedure Name Priority Date/Time Associated Diagnosis Comments BI MAMMOGRAM SCREENING TOMOSYNTHESIS BILATERAL Routine 12/23/2022 11:35 AM EDT documented in this encounter Results * BI Mammogram Screening Tomosynthesis Bilateral (12/23/2022 11:35 AM EDT) Anatomical Region Laterality Modality Breast Bilateral Mammography 12/23/2022 11:3 5 AM EDT Narrative 12/24/2022 5:15 PM EDT ? [facility] ? [address] ?[place] [id number] ? Mammography Report ? Signed ? Patient: Miguelina Watson ?MR#: ?? [id number] ? : 1965 ?Acct:[id number] ? Age/Sex: 57 / F ?ADM Date: 12/23/22 ? Loc: HO.MAMMO ? Attending Dr: Ernie Merritt MD ? Ordering Physician: Ernie Merritt MD ?Resu ?? lts: 1Negative ? Date of Service: 12/23/22 ?Follow Up: 1 Year From Orig ?? inal Mammogram ? Procedure(s): MM tomosynthesis screening BI ?? Accession Number(s): [id number] ? cc: Ernie Merritt MD ? EXAMINATION: [...] 1712 ? DD/ 1135 ? TD/TT: ? Concrete Craftsman: SK ? Procedure Note Tiesha, Rene - 12/24/2022 [facility] [address] [place] [address] Dr. [place]re[place], [place] T [address] Mammography Report Signed [facility] [id number] : 1965Acct:[id number] Age/Sex: 57 / FADM Date: 12/23/22 Loc: DANIELE Attending Dr: Ernie Merritt MD Ordering Physician: Ernie Merritt MDResu lts: 1Negative Date of Service: 12/23/22Follow Up: 1 Year From Orig inal Mammogram Procedure(s): MM tomosynthesis screening BI Accession Number(s): [id number] cc: Ernie Merritt MD EXAMINATION: MM SCREENING [...] in OV> 12/24/22 1712 DD/ 1135 TD/TT: Concrete Craftsman: [facility] External Provider IMG BI PROCEDURES Edited Result - Final documented in this encounter Visit Diagnoses Not on filedocumented in this encounter Additional Health Concerns Assessment Noted Time PHQ-9 Depression Total Score: 0 12/02/19 23 2:38 PM EST documented as of this encounter Care Teams Daily Sales Audit Clerk Relationship Specialty Start Date End Date Ernie Noriega MD [address] [place] [address] PCP - General Internal Medicine 08/25/19 documented as of this encounter
--- OUTSIDE RECORDS SUMMARY | 2024-12-21 10:43 | XMS_ITS | Encounter Summary ---
Author Organization [facility] Address [address] [place] [address] Care Team Providers Care Creative Services Producer Name Role Phone Ernie Merritt Primary Care Provider + Reason for Referral * MRI/CAT/PET Scan (Routine) - Authorized Specialty Diagnoses / Procedures Referred By Contac t Referred To Contact Diagnoses H/O cervical spine surgery Procedures MRI Cervical Spine WO Contrast Christopher Peres MD [address] [place] [address] Phone: tel: fax: Referral ID Status Reason Start Date Expiration Date V isits Requested Visits Authorized [id number] Authorized 12/14/2024 06/15/2026 1 1 * MRI/CAT/PET Scan (Routine) - Pending Review Specialty Diagnoses / Procedures Referred By Contac t Referred To Contact Radiology Diagnoses Chronic bilateral low back pain with bilateral sciatica Procedures CT Lumbar Spine WO Contrast Christopher Peres MD [address] [place] [address] Phone: tel: fax: Referral ID Status Reason Start Date Expiration Date V isits Requested Visits Authorized [id number] Pending Review 12/14/2024 06/15/2026 1 1 * MRI/CAT/PET Scan (Routine) - Pending Review Specialty Diagnoses / Procedures Referred By Contac t Referred To Contact Radiology Diagnoses Chronic bilateral low back pain with bilateral sciatica Procedures CT Thoracic Spine WO Contrast Christopher Peres MD [address] [place] [address] Phone: tel: fax: Referral ID Status Reason Start Date Expiration Date V isits Requested Visits Authorized [id number] Pending Review 12/14/2024 06/15/2026 1 1 * Physical Therapy (Routine) - Pending Review Specialty Diagnoses / Procedures Referred By Contac t Referred To Contact Physical Therapy Diagnoses Chronic bilateral low back pain with bilateral sciatica Christopher Peres MD [address] [place] [address] Phone: tel: fax: Referral ID Status Reason Start Date Expiration Date Visits Requested Visits Authorized [id number] Pending Review Specialty Services Required 12/14/2024 06/15/2026 6 6 Reason for Visit * Reason Comments New Patient * Consultation (Urgent) - Pending Review Specialty Diagnoses / Procedures Referred By Contac t Referred To Contact Neurosurgery Diagnoses Abnormal findings on diagnostic imaging of other parts of musculoskeletal system Other disorders of meninges, not elsewhere classified Radiculopathy, thoracic region Spinal stenosis, thoracic region T11 epidural lesion noted on the Thoracic MRI, Imaging reviewed with [facility] colleagues: There is a large arachnoid cyst extending most of the mid to lower Thoracic spine not reported by the Radiologist. It does compress the cord. the area in question lower down at T11, ? disc herniation. There are no cord signal changes. Anna Navas [address] [place] [address] Phone: tel: Neema Bhagat MD [address] [place] [address] Phone: tel: fax: Referral ID Status Reason Start Date Expiration Date V isits Requested Visits Authorized [id number] Pending Review 11/29/2024 05/31/2026 6 6 Encounter Details Date Type Department Care Team (Latest Contact Info) Description 12/14/2024 9:00 AM EST Office Visit [facility] [address] [place], [place] [phone] Christopher Peres MD [address] [place] [address] Chronic bilateral low back pain with bilateral sciatica (Primary Dx); H/O cervical spine surgery Social History Tobacco Use Types Packs/Day Years [...] Pulse 59 12/14/2024 9:13 AM EST Temperature - - Respiratory Rate 18 12/14/2024 9:13 AM EST Oxygen Saturation 99% 12/14/2024 9:13 AM EST Inhaled Oxygen Concentration - - Weight - - Height - - Body Mass Index - - documented in this encounter Progress Notes * Christopher Peres MD - 12/14/2024 9:36 AM EST HISTORY AND PHYSICAL VISIT DIAGNOSIS (M54.42, M54.41, G89.29) Chronic bilateral low back pain with bilateral sciatica (primary encounter diagnosis) Plan: Ambulatory referral to Physical Therapy, X-ray lumbar spine flexion and extension only 4+ views, CT Thoracic Spine WO Contrast, CT Lumbar Spine WO Contrast, X-ray scoliosis complete including supine and erect, CANCELED: X-ray scoliosis complete including supine and erect (Z98.890) H/O cervical spine surgery Plan: MRI Cervical Spine WO Contrast Subjective CHIEF COMPLAINT: Back pain HISTORY OF PRESENT ILLNESS: Miguelina Julien is a very pleasant 59-year-old female who presents with pain in her back and legs over the last 2 to 3 years which is progressively getting worse. She notes the pain starts in her lower back and runs down the entirety of both legs nondermatomal distribution. The back is worse than the leg pain. She also notes numbness in her right lateral thigh and some numbness in her abdomen. Otherwise denies weakness bowel or bladder issues. She does have a history of 2 lumbar spine surgeries 10/30/1998 [address] Claros. She does note that she had a CSF leak on the first 1. She has had multilevel disc replacements in her cervical spine as well. She notes that after her first lumbar surgeries she initially felt better but then slowly got worse and worse. She has tried injections which did not help she has not done physical therapy. She takes Tylenol. 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 Past medical history of osteoarthritis No drinking no smoking no drugs other than medicinal marijuana for pain control Review of Systems PAST MEDICAL HISTORY: No past medical history on file. PAST SURGICAL HISTORY: No past surgical history on file. MEDICATIONS: Prescriptions Prior to Admission[1] ALLERGIES: Patient has no known allergies. SOCIAL HISTORY: Social History Tobacco Use Smoking status: Former Current packs/day: 0.00 Types: Cigarettes Quit date: 2002 Years since quittin.1 Smokeless tobacco: Never Substance Use Topics Alcohol use: Never Social Documentation No social documentation on file. FAMILY HISTORY: No family history on file. OB History No obstetric history on file. Objective PHYSICAL EXAM: General: Awake, Alert, Oriented, Fluent BUE 5/5 BLE 5/5 pain limited Reflexes diminished Negative hoffmans Negative babinski Absent clonus SILT except right lateral thigh numbness IMAGING /OTHER STUDIES: I have personally reviewed the patient's imaging results MRI of both her thoracic and lumbar spine which do show multilevel arachnoid cysts in the thoracic spine and severe degenerative disease in the lumbar spine with a lumbar fusion as discussed. Assessment & Plan Miguelina Julien is a very pleasant 59-year-old female who presents with severe back pain likely related to degenerative changes caused by prior failed back surgeries. She has tried injections but not physical therapy. I have ordered her PT. I do not believe that her arachnoid cysts are symptomatic as she does not have myelopathy evident on exam nor any other findings that would be attributable to cyst at these levels. I have ordered her an MRI of her cervical spine to be sure there is no residual stenosis. In addition I ordered her standing scoliosis films and flexion-extension lumbar spine films as well as CTs of her thoracic and lumbar spine. I will see her back when she is completed PT todiscuss possible surgical intervention. She is in understanding and agreement this plan. I spent a total of 52 minutes on the date of encounter, which included: ?? Preparing to see the patient (e.g., review of test results) ?? Obtaining and/or reviewing separately obtained history ?? Performing a medically appropriate exam and/or evaluation ?? Counseling and educating the patient/family/caregiver ?? Ordering medications, tests, procedures ?? Documenting clinical information in the health record Christopher Peres MD [1] Not in a hospital admission. documented in this encounter Plan of Treatment Upcoming Encounters Date Type Department Care Team (Late st Contact Info) Description 03/14/2025 3:00 PM EDT Follow-Up [facility] [address] [place] [address] Christopher Peres MD [address] [place] [address] Scheduled Orders Name Type Priority Associated Diagnoses Orde r Schedule CT Thoracic Spine WO Contrast Imaging Routine Chronic bilateral low back pain with bilateral sciatica Expected: 12/14/2024, Expires: 02/13/2026 CT Lumbar Spine WO Contrast Imaging Routine Chronic bilateral low back pain with bilateral sciatica Expected: 12/14/2024, Expires: 02/13/2026 MRI Cervical Spine WO Contrast Imaging [facility] Routine H/O cervical spine surgery Expected: 12/14/2024, Expires: 01/14/2026 X-ray scoliosis complete including supine and erect Imaging Routine Chronic bilateral low back pain with bilateral sciatica Expected: 12/14/2024, Expires: 02/13/2026 Scheduled Referrals Name Type Priority Associated Diagnoses Order Schedule Ambulatory referral to Physical Therapy Outpatient Referral Routine Chronic bilateral low back pain with bilateral sciatica Expected: 12/14/2024, Expires: 06/16/2025 documented as of this encounter Results * Due to [place] state law, this organization might not be sharing [...] obtain the completed interpretation. ? Workstation ID: [id number] Narrative 12/14/2024 5:30 PM EST COMPARISON: There are no prior studies available for comparison at this time. Resulting Agency Comment [id number] Procedure Note Stone Reid MD - 12/14/2024 [...] possible to obtain thecompleted interpretation. Workstation ID: [id number] us Christopher Peres MD IMG XR PROCEDURES Final Res ult documented in this encounter Visit Diagnoses Diagnosis Chronic bilateral low back pain with bilateral sciatica- Primary H/O cervical spine surgery documented in this encounter Care Teams Creative Services Producer Relationship Specialty Start Date End Date Ernie Merritt [address] [place] [address] PCP - General Internal Medicine 11/29/24 documented as of this encounter
--- OUTSIDE RECORDS SUMMARY | 2024-12-21 10:44 | XMS_ITS | Encounter Summary ---
Author Organization [employer] Address [address] [place] [address] 7t [place] [address] Care Team Providers Care Bath Solution Maker Name Role Phone Ernie Noriega MD Primary Care Provide r Reason for Visit * Reason Onset Date Comments Med Refill 09/28/2024 Encounter Details Date Type Department Care Team ([facility] Contact Info) Description 09/28/2024 Telephone [facility] MEDICINE [address] [place] [address] Ernie Noriega MD [address] [place] [address] Med Refill Social History Tobacco Use Types [...] 300 MG capsule To be sent to: [facility]/pharmacy [address] [place] [address] documented in this encounter Plan of Treatment Upcoming Encounters Date Type Department Care Team (Late st Contact Info) Description 01/12/2025 3:00 PM EDT Office Visit [facility] MEDICINE [address] [place] [address] Ernie Noriega MD [address] [place], [place] [phone] documented as of this encounter Visit Diagnoses Not on filedocumented in this encounter Additional Health Concerns Assessment Noted Time PHQ-9 Depression Total Score: 2 01/21/20 24 1:25 PM EDT documented as of this encounter Care Teams Bath Solution Maker Relationship Specialty Start Date End Date Ernie Noriega MD [address] [place] [address] PCP - General Internal Medicine 08/25/19 documented as of this encounter
--- OUTSIDE RECORDS SUMMARY | 2024-12-21 10:44 | XMS_ITS | Patient Health Record ---
Author Organization [facility] Address [address] [place] [address] Care Team Providers Care Design Analyst Name Role Phone Milton Ro MD, Ernie Primary Care Provide r Rodrick Juarez Unavailable [phone] Allergies No Known Allergies Results Component Value Reference Range Notes Pathology (Not yet reviewed by provider) Interpretation: Performing Lab:[facility], [address] [place] [place] [phone] Notes/Report: Name: Ishmael Julien Age/Sex: 58/F : 1965 Unit#: [id number] Attend Dr: Rodrick Millan Re03/18/24 Status : [facility] Location: [facility] Disch: SPEC : [id number] REC STATUS: RUBY GILLESPIE NUM: [id number] SANDEEP: 03/18/24 [facility] DR: Rodrick Millan ENTERED: 03/18/24-06 22 SP TYPE: Surgical OTHR DR: Ernie Merritt MD ORDERED: HE Stain/3, Gross Micro L4 Diagnosis Colon, cecal polyp: Tubular adenoma; negative for high-grade dysplasia and carcinoma. Clinical History Pre-Op Dx: Screening Post-Op Dx: Polyp, diverticulosis, hemorrhoids Microscopic Description Microscopic sections reviewed. Material Received Cecal polyp Gross Description Received in formalin labeled ?cecal polyp? is a 0.25 cm jacques-pink irregular tissue fragment, submitted in toto in a cassette labeled A. CEDS Copies To: Ernie Merritt MD [address] [place] [id number] Rodrick Millan [address] [place] [address] [address] [place] [address] Signed (si gnature on file) Donna Industry 03/22/24 1450 END OF REPORT Reason For Referral No Information Medications Medication SIG (Take, Route, Frequency, Duration) Notes Start Date End Date Status diphenhydrAMINE HCl 25 MG 1 capsule at bedtime as needed Orally Once a day for 30 day(s) Active Escitalopram Oxalate 5 MG 1 tablet Orall y Once a day for 30 day(s) Active Albuterol Sulfate HFA 108 (9 0 Base) MCG/ACT 1 puff as needed Inhalation every 4 hrs Active Drfrxrdoat-Ywmmkry-Ngkrmlqi 50-325-40 MG 1 capsule as needed Orally [...] the procedure for 1 day 08/12/2023 Active Problems Problem Type SNOMED Code ICD Code Onset Dates Problem Status W/U Status Risk Notes Problem 356055284 Colon cancer screening (Z12.11) Active confirmed Problem Diverticular disease of colon (882527921) Diverticulosis of large intestine without perforation or abscess without bleeding (K57.30) Active confirmed Problem 486038197650107 Preprocedural examination (Z01.818) Active confirmed Problem 343474677 Encounter for long-term (current) use of NSAIDs (Z79.1) Active confirmed Encounters Encounter Location Date Provider Diagnosis [facility] [address] [place], [place] [phone] 03/18/2024 Rodrick Millan Encounter for screen ing colonoscopy Z12.11 ; Colon polyps K63.5 ; Diverticulosis of large intestine without perforation or abscess without bleeding K57.30 and Internal hemorrhoids K64.8 [facility] [address] [place] [address] 03/17/2024 Rodrick Millan Assessments Encounter Date Diagnosis (ICD Code) Assessment Notes Treatment Notes Treatment Clinical Notes Section Notes 03/18/2024 Encounter for screening colonoscopy (ICD-10 - Z12.11) 03/18/2024 Colon polyps (ICD-10 - K63.5) 03/18/2024 Diverticulosis of large intestine without perforation or abscess without bleeding (ICD-10 - K57.30) 03/18/2024 Internal hemorrhoids (ICD-10 - K64.8) Plan Of Treatment Pending Test Test Name Order Date Pathology 03/18/2024 Future Test Test Name Order Date COLONOSCOPY 03/24/2013 COLONOSCOPY 08/11/2023 Insurance Providers Payer Name Payer Address Payer Phone Subscriber Number Group Number Insured Name Patient Relationship to Insured Coverage Start Date Coverage End Date MEDICAID OF [employer] [address] [place] [address] [id number] JULIEN ISHMAEL Self - patient is the insured Medical (General) History Medical History History ICD Code Denies IA,DM,CVA,renal disease Asthma Depression/anxiety Hypertension Negative screening colonoscopy in 06/2013 Arthritis/Body aches Surgical History Surgery Date(Month/Year) Back surgery for disc disease Bilateral carpal tunnel Left shoulder C-spine disc surgery Bilateral knee replacements Might be having a left shoulder replacem ent as of the 07/2023 OV
--- OUTSIDE RECORDS SUMMARY | 2024-12-21 10:44 | XMS_ITS | Encounter Summary ---
Author Organization [employer] Address [address] [place] [address] 7t [place] [address] Care Team Providers Care Box Toe Maker Name Role Phone Ernie Noriega MD Primary Care Provide r Reason for Visit * Reason Onset Date Comments Med Refill 10/13/2024 Encounter Details Date Type Department Care Team ([facility] st Contact Info) Description 10/13/2024 Refill [facility] MEDICINE [address] [place] [address] Ernie Noriega MD [address] [place] [address] Chronic midline low back pain without sciatica [...] 3:00 PM EDT Office Visit [facility] MED[facility] [address] [place] [address] Ernie Noriega MD [address] [place] [address] documented as of this encounter Visit Diagnoses Diagnosis Chronic midline low back pain without sciatica documented in this encounter Additional Health Concerns Assessment Noted Time PHQ-9 Depression Total Score: 2 01/21/20 24 1:25 PM EDT documented as of this encounter Care Teams Box Toe Maker Relationship Specialty Start Date End Date Ernie Noriega MD [address] [place] [address] PCP - General Internal Medicine 08/25/19 documented as of this encounter
--- OUTSIDE RECORDS SUMMARY | 2024-12-21 10:44 | XMS_ITS | Encounter Summary ---
Author Organization [facility] Address [address] [place] [address] Care Team Providers Care Sledger Name Role Phone Ernie Merritt Primary Care Provider + Encounter Details Date Type Department Care Team (Late st Contact Info) Description 11/01/2024 Orders Only [facility] - External Imaging [address] [place] [address] Radiology, External [address] [place] [address] Social History Tobacco Use Types Packs/Day Years [...] Info) Description 03/14/2025 3:00 PM EDT Follow-Up [facility] [address] [place], [place] [phone] Christopher Peres MD [address] [place], [place] [phone] Pending Results Name Type Priority Associated Diagnoses Date /Time MRI Transfer of Outside Films Lower Extremity Imaging [place] Routine 12/08/2024 11:00 AM EST Scheduled Orders Name Type Priority Associated Diagnoses Orde r Schedule MRI Transfer of Outside Films Lower Extremity Imaging [place] Routine 1 Occurrences starting 12/08/2024 until 01/05/2026 documented as of this encounter Visit Diagnoses Not on filedocumented in this encounter Care Teams Sledger Relationship Specialty Start Date End Date Ernie Merritt [address] [place] [address] PCP - General Internal Medicine 11/29/24 documented as of this encounter
--- OUTSIDE RECORDS SUMMARY | 2024-12-21 10:44 | XMS_ITS | Encounter Summary ---
Author Organization [facility] Address [address] [place] [address] Care Team Providers Care Forging Press Lever Tender Name Role Phone Ernie Merritt MD Primary Care Provi bobo Reason for Visit * Reason Comments Pre-op Visit TF release DOS: 12/07 Encounter Details Date Type Department Care Team (Late st Contact Info) Description 11/22/2024 10:45 AM EST Consult Orthopedic Surgery - [place] [address] [place] [address] Trista David MD [address] [facility] [address] [place] [phone] Acquired trigger finger of left index finger [...] Primary documented in this encounter Care Teams Forging Press Lever Tender Relationship Specialty Start Date End Date Ernie Merritt MD [address] [place] [address] [place] [phone] PCP - General Internal Medicine 05/20/21 documented as of this encounter
--- OUTSIDE RECORDS SUMMARY | 2024-12-21 10:44 | XMS_ITS | Encounter Summary ---
Author Organization [employer] Address [address] [place] [address] 7t [place] [address] Care Team Providers Care High School Academic Coach Name Role Phone Ernie Noriega MD Primary Care Provide r Reason for Visit * Reason Onset Date Comments Med Refill 09/28/2024 Encounter Details Date Type Department Care Team ([facility] st Contact Info) Description 09/28/2024 Refill [facility] MEDICINE [address] [place] [address] Ernie Noriega MD [address] [place] [address] Primary osteoarthritis of knee, unspecified laterality Social [...] Description 01/12/2025 3:00 PM EDT Office Visit [facility] MEDICINE [address] [place] [address] Ernie Noriega MD [address] [place] [address] documented as of this encounter Visit Diagnoses Diagnosis Primary osteoarthritis of knee, unspecified laterality documented in this encounter Additional Health Concerns Assessment Noted Time PHQ-9 Depression Total Score: 2 01/21/20 24 1:25 PM EDT documented as of this encounter Care Teams High School Academic Coach Relationship Specialty Start Date End Date Ernie Noriega MD [address] [place] [address] PCP - General Internal Medicine 08/25/19 documented as of this encounter
--- OUTSIDE RECORDS SUMMARY | 2024-12-21 10:44 | XMS_ITS | Encounter Summary ---
Author Organization [employer] Address [address] [place] [address] 7t [place] [address] Care Team Providers Care Television Reporter Name Role Phone Ernie Noriega MD Primary Care Provide r Reason for Visit * Reason Comments Med Refill Encounter Details Date Type Department Care Team ([facility] st Contact Info) Description 12/25/2023 Refill [facility] MEDICINE [address] [place], [place] [phone] Ernie Noriega MD [address] [place], [place] [phone] Pain; Primary hypertension; Seasonal allergies Social History [...] Description 01/12/2025 3:00 PM EDT Office Visit [facility] MED[facility]INE [address] [place] [address] Ernie Noriega MD [address] [place] [address] documented as of this encounter Visit Diagnoses Diagnosis Pain Generalized pain Primary hypertension Unspecified essential hypertension Seasonal allergies Allergic rhinitis, cause unspecified documented in this encounter Additional Health Concerns Assessment Noted Time PHQ-9 Depression Total Score: 0 12/02/19 23 2:38 PM EST documented as of this encounter Care Teams Television Reporter Relationship Specialty Start Date End Date Ernie Noriega MD [address] [place] [address] PCP - General Internal Medicine 08/25/19 documented as of this encounter
--- OUTSIDE RECORDS SUMMARY | 2024-12-21 10:44 | XMS_ITS | Encounter Summary ---
Author Organization [employer] Address [address] [place] [address] 7t [place] [address] Care Team Providers Care Outfitter Cabin Name Role Phone Ernie Noriega MD Primary Care Provide r Reason for Visit * Reason Onset Date Comments Med Refill 09/28/2024 Encounter Details Date Type Department Care Team ([facility] st Contact Info) Description 09/28/2024 Refill [facility] MEDICINE [address] [place] [address] Ernie Noriega MD [address] [place] [address] Chronic midline low back pain without sciatica; [...] EDT Office Visit [facility]INE [address] [place] [address] Ernie Noriega MD [address] [place] [address] documented as of this encounter Visit Diagnoses Diagnosis Chronic midline low back pain without sciatica Cervical radiculopathy Brachial neuritis or radiculitis nos documented in this encounter Additional Health Concerns Assessment Noted Time PHQ-9 Depression Total Score: 2 01/21/20 24 1:25 PM EDT documented as of this encounter Care Teams Outfitter Cabin Relationship Specialty Start Date End Date Ernie Noriega MD [address] [place] [address] PCP - General Internal Medicine 08/25/19 documented as of this encounter
--- OUTSIDE RECORDS SUMMARY | 2024-12-21 10:44 | XMS_ITS | Encounter Summary ---
Author Organization [facility] Address [address] [place] [address] Care Team Providers Care Poured Pipe Maker Name Role Phone Ernie Merritt Primary Care Provider + Encounter Details Date Type Department Care Team (Late st Contact Info) Description 09/16/2024 Orders Only [facility] - External Imaging [address] [place] [address] Radiology, External [address] [place] [address] Social History Tobacco Use Types Packs/Day Years [...] Info) Description 03/14/2025 3:00 PM EDT Follow-Up [facility] [address] [place], [place] [phone] Christopher Peres MD [address] [place], [place] [phone] Pending Results Name Type Priority Associated Diagnoses Date /Time MRI Transfer of Outside Films L-Spine Imaging [place] Routine 12/08/2024 11:00 AM EST Scheduled Orders Name Type Priority Associated Diagnoses Orde r Schedule MRI Transfer of Outside Films L-Spine Imaging [place] Routine 1 Occurrences starting 12/08/2024 until 01/05/2026 documented as of this encounter Visit Diagnoses Not on filedocumented in this encounter Care Teams Poured Pipe Maker Relationship Specialty Start Date End Date Ernie Merritt [address] [place] [address] PCP - General Internal Medicine 11/29/24 documented as of this encounter
--- OUTSIDE RECORDS SUMMARY | 2024-12-21 10:44 | XMS_ITS | Encounter Summary ---
Author Organization [employer] Address [address] [place] [address] 7t [place] [address] Care Team Providers Care Decoration Checker Name Role Phone Ernie Noriega MD Primary Care Provide r Reason for Visit * Reason Onset Date Comments Med Refill 10/12/2024 Encounter Details Date Type Department Care Team ([facility] st Contact Info) Description 10/12/2024 Refill [facility] MEDICINE [address] [place] [address] Ernie Noriega MD [address] [place] [address] Primary osteoarthritis of knee, unspecified laterality Social [...] EDT Office Visit [facility] MED[facility] [address] [place] [address] Ernie Noriega MD [address] [place] [address] documented as of this encounter Visit Diagnoses Diagnosis Primary osteoarthritis of knee, unspecified laterality documented in this encounter Additional Health Concerns Assessment Noted Time PHQ-9 Depression Total Score: 2 01/21/20 24 1:25 PM EDT documented as of this encounter Care Teams Decoration Checker Relationship Specialty Start Date End Date Ernie Noriega MD [address] [place] [address] PCP - General Internal Medicine 08/25/19 documented as of this encounter
--- OUTSIDE RECORDS SUMMARY | 2024-12-21 10:44 | XMS_ITS | Encounter Summary ---
Author Organization [facility] Address [address] [place] [address] 7t [place] [address] Care Team Providers Care Customer Acquisition Manager Name Role Phone Ernie Noriega MD Primary Care Provide r Encounter Details Date Type Department Care Team (Late st Contact Info) Description 10/03/2022 Orders Only [facility] MEDICINE [address] [place] [address] [phone] Suha Alexander, RN Social History Tobacco Use [...] EDT Office Visit [facility] MEDICINE [address] [place] [address] [phone] Ernie Noriega MD [address] [place] [address] documented as of this encounter Visit Diagnoses Not on filedocumented in this encounter Care Teams Customer Acquisition Manager Relationship Specialty Start Date End Date Ernie Noriega MD [address] [place] [address] PCP - General Internal Medicine 08/25/19 documented as of this encounter
--- OUTSIDE RECORDS SUMMARY | 2024-12-21 10:44 | XMS_ITS | Encounter Summary ---
Author Organization [employer] Address [address] [place] [address] 7 [place] [address] Care Team Providers Care Junior Analyst Name Role Phone Ernie Noriega MD Primary Care Provide r Reason for Visit * Reason Onset Date Comments Medication Question 10/03/2022 returning call 10/03/2022 Encounter Details Date Type Department Care Team ([facility] st Contact Info) Description 10/03/2022 Telephone [facility] MEDICINE [address] [place] [address] Ernie Noriega MD [address] [place] [address] Medication Question; returning call Social History Tobacco [...] pt returning call Please contact pt at [phone] * Telephone Encounter - Peg Scott RN - 10/10/2022 11:17 AM EST T/C placed to pt x2AM re below message. No answer, left v/m. Will retask to [facility] for third attempt. * Telephone Encounter - Peg Scott RN - 10/08/2022 3:32 PM EST Incoming T/C from Sylvia CAMARILLO from [facility]. She states spoke with WICK TENDER who saw pt 09/24. It is not in the OV note (which is located in Epic under Media tab) but that pt reported pain during appt and WICK TENDER advised pt speak to her PCP and [...] next month with PCP. Will send to [facility] to attempt second call. Al;so sending to PCP as FYI. * Telephone Encounter - Peg Scott RN - 10/08/2022 10:34 AM EST Reviewed most recent note from [facility]. No mention of increased dose. T/C placed to them who stated they don't see anything but will send message to provider who is out onvacation and will be back next week. Provided my direct ext for call back. * Telephone Encounter - Marjorie Bass - 10/03/2022 10:42 AM EST Tc from pt calling to inform was told by her [facility] DR to request [...] 01/12/2025 3:00 PM EDT Office Visit [facility] MEDICINE [address] [facility] [place] [address] Ernie Noriega MD [address] [place] [address] documented as of this encounter Visit Diagnoses Not on filedocumented in this encounter Care Teams Junior Analyst Relationship Specialty Start Date End Date Ernie Noriega MD [address] [facility] [place] [address] PCP - General Internal Medicine 08/25/19 documented as of this encounter
--- OUTSIDE RECORDS SUMMARY | 2024-12-21 10:45 | XMS_ITS ---
Author Organization [facility] Address [address] [place] [address] Care Team Providers Care Mail List Processor Name Role Phone Milton Ro MD, Ernie Primary Care Provide r Rodrick Juarez [phone] REASON FOR VISIT PROCEDURE TOMORROW Encounters Encounter Location Date Provider Diagnosis [facility] [address] [place] [address] 03/17/2024 Rodrick Millan Plan Of Treatment No Information Progress Notes * ISHMAEL HINOJOSADOB: 3 (58 yo F)Acc No.[id number]:03/17/2024 Patient:?ISHMAEL HINOJOSA :1965???Age:58 Y???Sex:Female Address:[address] [place], [address] * true * Date:? Generated for Printi pietro/Jean-Paul/eTransmitting on:?12/21/2024 10:44 AM EDT
--- OUTSIDE RECORDS SUMMARY | 2024-12-21 10:45 | XMS_ITS | Encounter Summary ---
Author Organization [facility] Address [address] [place] [address] Care Team Providers Care Assembler Dry Cell And Battery Name Role Phone Ernie Merritt MD Primary Care [facility] Reason for Referral * Orthopedic (Routine) - Pending Review Specialty Diagnoses / Procedures Referred By Contac t Referred To Contact Orthopedic Surgery / Orthopaedic Surgery Diagnoses Rotator cuff arthropathy, left Procedures L Inj/Asp: L subacromial bursa Leroy Lees MD [address] [address] Phone: tel: fax: Referral ID Status Reason Start Date Expiration Date V isits Requested Visits Authorized [id number] Pending Review 11/23/2024 11/23/2025 1 1 Reason for Visit * Reason Comments Follow-up Encounter Details Date Type Department Care Team (Late st Contact Info) Description 11/23/2024 11:00 AM EST Office Visit [facility] - [place] [address] [address] Leroy Lees MD [address] [address] Rotator cuff arthropathy, left (Primary Dx) Social [...] on file documented as of this encounter Procedures Procedure Name Priority Date/Time Associated Diagnosis Comments [place] ARTHROCENTESIS/ASPI RATION/INJECTION MAJOR JOINT/BURSA W/O U/S GUIDANCE Routine 11/23/2024 11:00 AM EST Rotator cuff arthropathy, left documented in this encounter Results * [place] ARTHROCENTESIS/ASPIRATION/INJECTION MAJOR JOINT/BURSA W/O U/S GUIDANCE (11/23/2024 [...] mg documented in this encounter Care Teams Assembler Dry Cell And Battery Relationship Specialty Start Date End Date Ernie Merritt MD [address] [place] [address] PCP - General Internal Medicine 05/20/21 documented as of this encounter
--- OUTSIDE RECORDS SUMMARY | 2024-12-21 10:45 | XMS_ITS | Encounter Summary ---
Author Organization [facility] Address [address] [place] [address] Care Team Providers Care Dry Press Operator Name Role Phone Ernie Merritt MD Primary Care Provi [facility] Reason for Visit * Auth/Cert (Routine) Specialty Diagnoses / Procedures Referred By Bro t Referred To Contact Diagnoses Trigger finger, unspecified finger TRIGGER FINGER LEFT INDEX FINGER Procedures [place] INCISION TENDON SHEATH LEFT A1 JOAO/TRIGGER FINGER RELEASE INDEX FINGER Trista David MD [address] [address] Phone: tel: fax: [facility] OR [address] [place] [phone] Phone: tel: Referral ID Status Reason Start Date Expiration Date Visits Re quested Visits Authorized [id number] 1 1 Encounter Details Date Type Department Care Team (Late st Contact Info) Description 12/07/2024 1:30 PM EST - 12/07/2024 3:00 PM EST Surgery [facility] OR [address] [place] [address] Trista David MD [address] [address] LEFT A1 JOAO/TRIGGER FINGER RELEASE INDEX FINGER [86305 (CPT??)] Surgery Details Date/Time Status Location OR Service Patient Class Case Cl ass Case Type Trauma Case? 12/07/2024 1:30 PM Posted [facility] OR [facility] Orthopedics [facility] Outpatient Surgery F - Elective Panel 1 Procedure LRB Anes Op Region Wound Class Comments LEFT A1 JOAO/TRIGGER FINGER RELEASE INDEX FINGER Left Moderate Sedation Fingers Class I/ Clean Surgeon Surgeon Role Service Panel Trista David MD Primary Orthopedics 1 Case Notes PA ASSIST documented in this encounter Social History Tobacco [...] dry dressing at all times [facility] - No driving until you can use [...] discoloration. [facility] Trista David MD [address] [place] [address] If you have any questions and or cannot keep your appointment, please contact the [facility] office at [phone] * Attachments The following attachments cannot be sent through Care Everywhere. * Sedation (Eritrean) documented in this encounter Medications at Time [...] FINGER (L) OPERATIVE NOTE Date: 12/07/2024 Location: [facility] OR Name: Miguelina Julien, : 1965, Diagnosis Pre-op Diagnosis * Trigger finger, unspecified finger [M65.30] Post-op Diagnosis * Trigger finger, unspecified finger [M65.30] Procedures LEFT A1 JOAO/TRIGGER FINGER RELEASE INDEX FINGER [address] - [place] INCISION TENDON SHEATH Indications: Miguelina Julien is an 59 y.o. female who is having surgery for TRIGGER FINGER LEFT INDEX FINGER. She has had multiple surgeries at other sites previously for triggering. Surgeon(s) & Adjunct Physics Instructor(s) * Trista David MD - Primary Anesthesia: Monitor Anesthesia Care and local anesthesia ASA: II Estimated Blood Loss: Minimal Procedure Details: ICD-9: 727.03 ICD-10: M65.30 (UNSPECIFIED) cpt: 64707 The patient was identified in the preoperative [...] A small self-retaining retractor was placed. My funeral home assistant held the Ragnell retractors as well [...] Procedure Name Priority Date/Time Associated Diagnosis Comments [place] INCISION TENDON SHEATH 12/07/2024 12:32 PM EST Trigger finger, unspecified finger Case Notes PA LEONEL documented in this encounter Visit Diagnoses Diagnosis Trigger finger, unspecified finger documented in this encounter Administered Medications Inactive Administered Medications - up to 3 most recent administrations Medication Order MAR Action Action Date Dose Rate Site lidocaine-EPINEPHrine (XYLOCAINE W/EPI) 1 %-1:100,000 injection As needed, Starting on Thu12/07/24 at 1254, Intraprocedure Given 12/07/2024 12:54 PM EST 4 mL sodium bicarbonate injection As needed, Starting on Thu12/07/24 at 1254, Intraprocedure Given 12/07/2024 12:54 PM EST 1 mEq sodium chloride 0.9 % flush 10 mL [...] 1245 (New Bag - Prov ider: Agnieszka Villatoro, DROP SHIPMENT CLERK) sodium chloride 0.9 % flush 10 mL(Linked Group 1) 10 mL, intravenous, 2 times daily, First dose on Thu12/07/24 at 1230, Preprocedure 1230 (Canceled Entry - Provider: Automatic Discharge Provider - Comment: Automatically canceled at discontinue of medication order) PRN Medication Order 12/05/2024 12/06/2024 12/07/2024 lidocaine-EPINEPHrine [...] Groups Order Group 1: Insert peripheral IV (CANCELED) STAT, Once, On Thu12/07/24 at 1203, For 1 occurrence, Preprocedure And Maintain IV access (CANCELED) Until discontinued, Starting on Thu12/07/24 at 1203, Until Specified, Preprocedure And Saline lock IV (CANCELED) Routine, Once, On Thu12/07/24 at 1203, For [...] Ordered Date ceFAZolin (ANCEF) 2 g in dalia rile water 20 mL IV syringe 1 12/07/2024 sodium chloride 0.9 % flush 10 mL 2 025 Discharge Count Last Ordered Date First Orde red Date DISCHARGE PATIENT 1 12/07/2024 CORE MEASURES Count Last Ordered Date First Ord ered Date REASON FOR NO VTE PROPHYLAXI S - HOSPITAL ADMISSION - MECHANICAL 1 12/07/2024 documented in this encounter Care Teams Dry Press Operator Relationship Specialty Start Date End Date Ernie Merritt MD [address] [place] [address] [place] [address] PCP - General Internal Medicine 05/20/21 documented as of this encounter
--- OUTSIDE RECORDS SUMMARY | 2024-12-21 10:45 | XMS_ITS | Encounter Summary ---
Author Organization [facility] Address [address] [place] [address] Care Team Providers Care Nougat Candy Maker Helper Name Role Phone Ernie Merritt MD Primary Care [facility] Reason for Visit * Auth/Cert (Routine) Specialty Diagnoses / Procedures Referred By Bro t Referred To Contact Diagnoses Trigger finger, unspecified finger TRIGGER FINGER LEFT INDEX FINGER Procedures [place] INCISION TENDON SHEATH LEFT A1 JOAO/TRIGGER FINGER RELEASE INDEX FINGER Trista David MD [address] [address] Phone: tel: fax: [facility] OR [address] [place] [phone] Phone: tel: Referral ID Status Reason Start Date Expiration Date Visits Re quested Visits Authorized [id number] 1 1 Encounter Details Date Type Department Care Team (Latest Contact Info) Description 12/07/2024 11:51 AM EST - 12/07/2024 2:43 PM EST Hospital Encounter [facility] OR [address] [place] [address] Trista David MD [address] [address] Discharge Disposition: Home or Self [...] [facility] Trista David MD [address] [place] [address] If you have any questions and or cannot keep your appointment, please contact the [facility] office at [phone] * Attachments The following attachments cannot be sent through Care Everywhere. * Sedation (Yoruba) documented in this encounter Medications at Time [...] FINGER (L) OPERATIVE NOTE Date: 12/07/2024 Location: [facility] OR Name: Miguelina Julien, : 1965, Diagnosis Pre-op Diagnosis * Trigger finger, unspecified finger [M65.30] Post-op Diagnosis * Trigger finger, unspecified finger [M65.30] Procedures LEFT A1 JOAO/TRIGGER FINGER RELEASE INDEX FINGER [address] - [place] INCISION TENDON SHEATH Indications: Miguelina Julien is an 59 y.o. female who is having surgery for TRIGGER FINGER LEFT INDEX FINGER. She has had multiple surgeries at other sites previously for triggering. Surgeon(s) & Senior Technologist(s) * Trista David MD - Primary Anesthesia: Monitor Anesthesia Care and local anesthesia ASA: II Estimated Blood Loss: Minimal Procedure Details: ICD-9: 727.03 ICD-10: M65.30 (UNSPECIFIED) cpt: 03427 The patient was identified in the preoperative [...] A small self-retaining retractor was placed. My microbiology lab assistant held the Ragnell retractors as well [...] Procedure Name Priority Date/Time Associated Diagnosis Comments [place] INCISION TENDON SHEATH 12/07/2024 12:32 PM EST Trigger finger, unspecified finger Case Notes PA ASSIST documented in this encounter Visit Diagnoses Not [...] (New Bag - Prov ider: Agnieszka Villatoro, UNBUNDLER) sodium chloride 0.9 % flush 10 mL(Linked [...] 12/07/2024 documented in this encounter Care Teams Nougat Candy Maker Helper Relationship Specialty Start Date End Date Ernie Merritt MD [address] [place] [address] [place] [address] PCP - General Internal Medicine 05/20/21 documented as of this encounter
--- OUTSIDE RECORDS SUMMARY | 2024-12-21 10:45 | XMS_ITS | Encounter Summary ---
Author Organization [facility] Address [address] [place] [address] Care Team Providers Care Mechanic Name Role Phone Ernie Merritt MD Primary Care Provi bobo Reason for Visit * Auth/Cert (Routine) Specialty Diagnoses / Procedures Referred By Contkishore t Referred To Contact Diagnoses Trigger finger, unspecified finger TRIGGER FINGER LEFT INDEX FINGER Procedures [place] INCISION TENDON SHEATH LEFT A1 JOAO/TRIGGER FINGER RELEASE INDEX FINGER Trista David MD [address] [address] Phone: tel: fax: [facility] OR [address] [place] [address] Phone: tel: Referral ID Status Reason Start Date Expiration Date Visits Re quested Visits Authorized [id number] 1 1 Encounter Details Date Type Department Care Team (Late st Contact Info) Description 12/07/2024 12:30 PM EST Anesthesia Event [facility] Main OR [address] [place] [address] Irvin Fields MD [address] [place] [address] Agnieszka Villatoro CRNA [address] [place] [phone] Anesthesia Record Procedure Summary Procedure Name Responsible [...] Procedure Summary Date: 12/07/24 Room / Location: [address] [place] Anesthesia Start: 1230 Anesthesia Stop: [...] mg documented in this encounter Care Teams Mechanic Relationship Specialty Start Date End Date Ernie Merritt MD [address] [place] [address] [place] [address] PCP - General Internal Medicine 05/20/21 documented as of this encounter
--- OUTSIDE RECORDS SUMMARY | 2024-12-21 10:45 | XMS_ITS | Encounter Summary ---
Author Organization [employer] Address [address] [place] [address] 7t [place] [address] Care Team Providers Care Publicity Agent Name Role Phone Ernie Noriega MD Primary Care Provide r Reason for Visit * Reason Onset Date Comments verbal order 11/21/2022 Encounter Details Date Type Department Care Team (Late Contact Info) Description 11/21/2022 Telephone [facility] MEDICINE [address] [place] [address] Ernie Noriega MD [address] [place] [address] verbal order Social History Tobacco Use Types [...] 1:08 PM EST Tc from [facility] from [facility] calling to inform pt started home services today . Baldemar is also requesting a verbal order for pt to start physical therapy for 2x a week for 4 weeks . Best contact # [phone]. documented in this encounter Plan of Treatment Upcoming Encounters Date Type Department Care Team (Late Contact Info) Description 01/12/2025 3:00 PM EDT Office Visit [facility] MEDICINE [address] [place] [address] Ernie Noriega MD [address] [place] [address] documented as of this encounter Visit Diagnoses Not on filedocumented in this encounter Care Teams Publicity Agent Relationship Specialty Start Date End Date Ernie Noriega MD [facility] [place] [address] PCP - General Internal Medicine 08/25/19 documented as of this encounter
== END 2024-12-21 09:42 | disposition home or self-care (01) ==
LOC: HO.HHCX 09:41
PROVIDERS: Visit Provider Emergency Medicine
DX: M79.671 Pain in right foot (principal)
CPT/HCPCS: 73630

== ENCOUNTER → 2024-12-21 09:42 | Outpatient (BNV) | payer MEDICAID, SELFPAY | PROVIDERS: Visit Provider Radiology Diagnostic Radiology | DX: M79.671 Pain in right foot (principal); R22.41 Localized swelling, mass and lump, right lower limb | CPT/HCPCS: 73630 ==

== ENCOUNTER 2024-12-21 10:05 | Outpatient (REF) | payer MEDICAID, SELFPAY ==
--- OUTSIDE RECORDS SUMMARY | 2024-12-21 11:28 | XMS_ITS | Clinical Summary ---
Author Organization [facility] Address [address] [place] [address] Phone Care Team Providers Care School Bus Inspector Name Role Phone Ernie Merritt MD Primary [...] AM EST Office Visit Orthopedic Surgery - [place] [facility] [address] [place] [phone] Nicolasa Yu PA S/P trigger finger release (Primary Dx) 12/07/2024 1:30 PM EST - 12/07/2024 3:00 PM EST Surgery [facility] OR [address] [place] [phone] Trista David MD LEFT A1 JOAO/TRIGGER FINGER RELEASE INDEX FINGER [62374 (CPT??)] 12/07/2024 12:30 PM EST Anesthesia Event [facility] OR [address] [place] [phone] Irvin Fields MD Decandio, Laura, CRNA 12/07/2024 11:51 AM EST - 12/07/2024 2:43 PM EST Hospital Encounter [facility] Main OR [address] [place] [address] Trista David MD Discharge Disposition: Home or Self Care 11/23/2024 11:00 AM EST Office Visit Orthopedic Surgery [facility] 160 [facility] 160 [place] [phone] Leroy Lees MD Rotator cuff arthropathy, left (Primary Dx) 11/22/2024 10:45 AM EST Consult Orthopedic Surgery [facility] 175 [facility] 140 [place] [address] Trista David MD Acquired trigger finger of left index finger (Primary Dx) 11/04/2024 Telephone Orthopedic Surgery [facility] 175 [facility] 140 [place] [address] Eulalia Velez from Last 3 [...] Procedure Name Priority Date/Time Associated Diagnosis Comments RI INCISION TENDON SHEATH 12/07/2024 12:32 PM EST Trigger finger, unspecified finger Case Notes PA ASSIST RI ARTHROCENTESIS/ PIRATION/INJECTIO N MAJOR JOINT/BURSA W/O U/S GUIDANCE Routine 11/23/2024 11:00 AM EST Rotator cuff arthropathy, left from Last 3 Months Results * RI ARTHROCENTESIS/ASPIRATION/INJECTION MAJOR JOINT/BURSA W/O U/S GUIDANCE (11/23/2024 [...] Result from Last 3 [place] [id number] MEDICAID - [place] Advance Directives * Full [...] currently active code status orders. Care Teams School Bus Inspector Relationship Specialty Start Date End Date Ernie Merritt MD [address] [place] [phone] PCP - General Internal Medicine 05/20/21
--- OUTSIDE RECORDS SUMMARY | 2024-12-21 11:28 | XMS_ITS | Encounter Summary ---
Author Organization [employer] Address [address] [place] [address] 7t [place] [address] Care Team Providers Care Abatement Worker Name Role Phone Ernie Noriega MD Primary Care Provide r Reason for Visit * Reason Onset Date Comments Med Refill 03/15/2024 Encounter Details Date Type Department Care Team ([facility] st Contact Info) Description 03/15/2024 Refill [facility] MEDICINE [address] [place] [address] Ofelia Melgar MD 230 [place] [address] Chronic midline low back pain without sciatica; [...] Office Visit [facility] MEDICINE [address] [place] [address] Ernie Noriega MD [address] [place] [address] documented as of this encounter Visit Diagnoses Diagnosis Chronic midline low back pain without sciatica Cervical radiculopathy Brachial neuritis or radiculitis nos documented in this encounter Additional Health Concerns Assessment Noted Time PHQ-9 Depression Total Score: 2 01/21/20 24 1:25 PM EDT documented as of this encounter Care Teams Abatement Worker Relationship Specialty Start Date End Date Ernie Noriega MD 230 [place] [address] PCP - General Internal Medicine 08/25/19 documented as of this encounter
--- OUTSIDE RECORDS SUMMARY | 2024-12-21 11:28 | XMS_ITS | Encounter Summary ---
Author Organization [employer] Address [address] [facility] 7t [place] [address] Care Team Providers Care Reconnaissance Crewmember Name Role Phone Ernie Noriega MD Primary Care Provide r Encounter Details Date Type Department Care Team (Late st Contact Info) Description 12/09/2024 Orders Only [facility] External Provider, [facility] Social History Tobacco Use Types Packs/Day Years [...] EDT Office Visit [facility] [address] [facility] [place] [place] [address] Ernie Noriega MD [address] [facility] [place] [address] documented as of this encounter Procedures Procedure Name Priority Date/Time Associated Diagnosis Comments FL GUIDANCE IN OR Routine 12/09/2024 9:0 8 AM EST documented in this encounter Results * FL Guidance in OR (12/09/2024 9:08 AM EST) Anatomical Region Laterality Modality X-Ray Angiograph y 12/09/2024 9:08 AM EST Narrative 12/09/2024 9:48 AM EST ? [facility] ?[address] ?[place] [address] ? Fluoroscopy Report ? Signed ? Patient: Julien,Miguelina ?MR#: [id number] ?? 12 ? : 1965 ?Acct:[id number] ? Age/Sex: 59 / F ?ADM Date: 02/28/25 ? Loc: HO.SSS ? Attending Sue Casas MD ? Ordering Physician: Aldo Casas MD ?? Date of Service: 12/09/24 ?? Procedure(s): FL guidance in OR ?? Accession Number(s): [id number] ? cc: Ofelia Melgar MD; Aldo Casas [...] DD/ 0908 ? TD/TT: 12/09/24 0930 ? Hide Trimmer: ? Procedure Note Donsomter, Image - 12/09/2024 [place] [address] Fluoroscopy Report Signed Patient: Miguelina Julien#: [id number] 12 : 1965Acct:[id number] Age/Sex: 59 / FADM Date: 12/09/24 Loc: HO.[facility] Attending Dr: Aldo Casas MD Ordering Physician: Aldo Casas MD Date of Service: 12/09/24 Procedure(s): FL guidance in OR Accession Number(s): [id number] cc: Ofelia Melgar MD; Aldo Casas MD [...] 02/28/25 0945 DD/ 0908 TD/TT: 12/09/24 09 Hide Trimmer: [facility] External Provider IMG IR PROCEDURES Final Result documented in this encounter Visit Diagnoses Not on filedocumented in this encounter Additional Health Concerns Assessment Noted Time PHQ-9 Depression Total Score: 2 01/21/20 24 1:25 PM EDT documented as of this encounter Care Teams Reconnaissance Crewmember Relationship Specialty Start Date End Date Ernie Noriega MD [address] [place] [address] PCP - General Internal Medicine 08/25/19 documented as of this encounter
--- OUTSIDE RECORDS SUMMARY | 2024-12-21 11:28 | XMS_ITS | Encounter Summary ---
Author Organization [employer] Address 75 [facility] 7t [place] [address] Care Team Providers Care Clinical Auditor Name Role Phone Ernie Noriega MD Primary Care Provide r Reason for Visit * Reason Comments Foot Swelling Encounter Details Date Type Department Care Team ([facility] st Contact Info) Description 12/21/2024 9:00 AM EDT Office Visit [facility] 230 [place], [place] [phone] Right foot pain (Primary Dx); Ecchymoses, spontaneous [...] PM EDT Office Visit [facility] MEDICINE [address] [place] [address] Ernie Noriega MD 230 [place] [address] Scheduled Orders Name Type Priority Associated Diagnoses [...] AM EDT Narrative 12/21/2024 10:03 AM EDT ?[facility] ?[address] ?[place] [address] ?XRay Report ? Signed ? Patient: Miguelina Julien ?MR#: [id number] ?? 12 ? : 1965 ?Acct:[id number] ? Age/Sex: 59 / F ?ADM Date: 12/21/24 ? Loc: HO.HHCX ? Attending Dr: Marty Haney MD ? Ordering Physician: MARTY HANEY MD ?? Date of Service: 12/21/24 ?? Procedure(s): XR foot RT min 3V ?? Accession Number(s): [id number] ? cc: MARTY HANEY MD ? EXAMINATION: [...] DD/ 0942 ? TD/TT: 12/21/24 0956 ? Rand Tacker: ? Procedure Note Donotuseinterpreter, Image - 12/21/[address] [address] XRay Report Signed Patient: Miguelina JulienMR#: [id number] 12 : 1965Acct:[id number] Age/Sex: 59 / FADM Date: 12/21/24 Loc: .HHCX Attending Dr: Marty Haney MD Ordering Physician: MARTY HANEY MD Date of Service: 12/21/24 Procedure(s): XR foot RT min 3V Accession Number(s): [id number] cc: MARTY HANEY MD EXAMINATION: XR FOOT [...] 12/21/24 1000 DD/ 0942 TD/TT: 12/21/24 0956 Rand Tacker: Marty Haney MD IMG XR PROCEDURES Final Result documented in this encounter Visit Diagnoses Diagnosis Right foot pain- Primary Pain in soft tissues of limb Ecchymoses, spontaneous documented in this encounter Additional Health Concerns Assessment Noted Time PHQ-9 Depression Total Score: 2 01/21/20 24 1:25 PM EDT documented as of this encounter Care Teams Clinical Auditor Relationship Specialty Start Date End Date Ernie Noriega MD [address] [place] [address] PCP - General Internal Medicine 08/25/19 documented as of this encounter
--- OUTSIDE RECORDS SUMMARY | 2024-12-21 11:28 | XMS_ITS | Encounter Summary ---
Author Organization [employer] Address [address] [place] [address] 7t [place] [address] Care Team Providers Care Unit Aide Tech Name Role Phone Ernie Noriega MD Primary Care Provide r Reason for Visit * Reason Onset Date Comments Med Refill 10/25/2024 Encounter Details Date Type Department Care Team ([facility] st Contact Info) Description 10/25/2024 Refill [facility] MEDICINE 230 [place] [address] Ernie Noriega MD 230 [place] [address] Chronic midline low back pain without sciatica [...] 3:00 PM EDT Office Visit [facility] MEDICINE 230 [place] [address] Ernie Noriega MD 230 [place] [address] documented as of this encounter Visit Diagnoses Diagnosis Chronic midline low back pain without sciatica documented in this encounter Additional Health Concerns Assessment Noted Time PHQ-9 Depression Total Score: 2 01/21/20 24 1:25 PM EDT documented as of this encounter Care Teams Unit Aide Tech Relationship Specialty Start Date End Date Enrie Noriega MD [address] [place] [address] PCP - General Internal Medicine 08/25/19 documented as of this encounter
--- OUTSIDE RECORDS SUMMARY | 2024-12-21 11:28 | XMS_ITS | Encounter Summary ---
Author Organization [employer] Address [address] [place] [address] 7t [place] [address] Care Team Providers Care Instructional Systems Designer Name Role Phone Ernie Noriega MD Primary Care Provide r Reason for Visit * Reason Onset Date Comments Med Refill 11/07/2024 Encounter Details Date Type Department Care Team ([facility] st Contact Info) Description 11/07/2024 Refill [facility] MEDICINE 230 [place] [address] Ernie Noriega MD 230 [place] [address] Chronic midline low back pain without sciatica [...] Description 01/12/2025 3:00 PM EDT Office Visit [facility] MEDICINE [address] [place] [address] Ernie Noriega MD 230 [place] [address] documented as of this encounter Visit Diagnoses Diagnosis Chronic midline low back pain without sciatica documented in this encounter Additional Health Concerns Assessment Noted Time PHQ-9 Depression Total Score: 2 01/21/20 24 1:25 PM EDT documented as of this encounter Care Teams Instructional Systems Designer Relationship Specialty Start Date End Date Ernie Noriega MD [address] [place] [address] PCP - General Internal Medicine 08/25/19 documented as of this encounter
--- OUTSIDE RECORDS SUMMARY | 2024-12-21 11:28 | XMS_ITS | Encounter Summary ---
Author Organization [employer] Address [address] [place] [address] 7t [place] [address] Care Team Providers Care Sales Recruiter Name Role Phone Ernie Noriega MD Primary Care Provide r Reason for Visit * Reason Onset Date Comments Med Refill 06/25/2024 Encounter Details Date Type Department Care Team ([facility] st Contact Info) Description 06/25/2024 Refill [facility] MEDICINE 230 [place] [address] Ernie Noriega MD 230 [place] [address] Chronic midline low back pain without sciatica; [...] Description 01/12/2025 3:00 PM EDT Office Visit [facility] MEDICINE 230 [place] [address] Ernie Noriega MD [address] [place] [address] documented as of this encounter Visit Diagnoses Diagnosis Chronic midline low back pain without sciatica Cervical radiculopathy Brachial neuritis or radiculitis nos documented in this encounter Additional Health Concerns Assessment Noted Time PHQ-9 Depression Total Score: 2 01/21/20 24 1:25 PM EDT documented as of this encounter Care Teams Sales Recruiter Relationship Specialty Start Date End Date Ernie Noriega MD [address] [place] [address] PCP - General Internal Medicine 08/25/19 documented as of this encounter
--- OUTSIDE RECORDS SUMMARY | 2024-12-21 11:28 | XMS_ITS | Encounter Summary ---
Author Organization [employer] Address [address] [place] [address] 7t [place] [address] Care Team Providers Care Vp Home Health Name Role Phone Ernie Noriega MD Primary Care Provide r Reason for Visit * Reason Onset Date Comments Med Refill 11/01/2024 Encounter Details Date Type Department Care Team ([facility] st Contact Info) Description 11/01/2024 Refill [facility] MEDICINE 230 [place] [address] Sugar Mitchell MD [address] [place] [address] Seasonal allergies Social History Tobacco Use Types [...] 01/12/2025 3:00 PM EDT Office Visit [facility] MEDICINE 230 [place] [address] Ernie Noriega MD 230 [place] [address] documented as of this encounter Visit Diagnoses Diagnosis Seasonal allergies Allergic rhinitis, cause unspecified documented in this encounter Additional Health Concerns Assessment Noted Time PHQ-9 Depression Total Score: 2 01/21/20 24 1:25 PM EDT documented as of this encounter Care Teams Vp Home Health Relationship Specialty Start Date End Date Ernie Noriega MD [address] [place] [address] PCP - General Internal Medicine 08/25/19 documented as of this encounter
--- OUTSIDE RECORDS SUMMARY | 2024-12-21 11:28 | XMS_ITS | Encounter Summary ---
Author Organization [employer] Address [address] [place] [address] 7t [place] [address] Care Team Providers Care Surveyor Hydrographic Name Role Phone Ernie Noriega MD Primary Care Provide r Reason for Visit * Reason Comments Med Refill Encounter Details Date Type Department Care Team ([facility] st Contact Info) Description 12/15/2024 Refill [facility] MEDICINE 230 [place], [place] [phone] Ernie Noriega MD 230 [place] [address] Social History Tobacco Use Types Packs/Day Years [...] Description 01/12/2025 3:00 PM EDT Office Visit [facility] MEDICINE [address] [place] [address] Ernie Noriega MD 230 [place] [address] documented as of this encounter Visit Diagnoses Not on filedocumented in this encounter Additional Health Concerns Assessment Noted Time PHQ-9 Depression Total Score: 2 01/21/20 24 1:25 PM EDT documented as of this encounter Care Teams Surveyor Hydrographic Relationship Specialty Start Date End Date Ernie Noriega MD [address] [place] [address] PCP - General Internal Medicine 08/25/19 documented as of this encounter
--- OUTSIDE RECORDS SUMMARY | 2024-12-21 11:28 | XMS_ITS | Encounter Summary ---
Author Organization [employer] Address [address] [place] [address] 7t [place] [address] Care Team Providers Care Cessation Systems Outreach Specialist Name Role Phone Ernie Noriega MD Primary Care Provide r Reason for Visit * Reason Onset Date Comments Med Refill 01/26/2024 Encounter Details Date Type Department Care Team ([facility] st Contact Info) Description 01/26/2024 Refill [facility] MEDICINE 230 [place] [address] Ilas Robison, ANP 230 [place] [address] Chronic midline low back pain without sciatica; [...] Description 01/12/2025 3:00 PM EDT Office Visit [facility] MEDICINE 230 [place] [address] Ernie Noriega MD 230 [place] [address] documented as of this encounter Visit Diagnoses Diagnosis Chronic midline low back pain without sciatica Cervical radiculopathy Brachial neuritis or radiculitis nos documented in this encounter Additional Health Concerns Assessment Noted Time PHQ-9 Depression Total Score: 2 01/21/20 24 1:25 PM EDT documented as of this encounter Care Teams Cessation Systems Outreach Specialist Relationship Specialty Start Date End Date Ernie Noriega MD 230 [place] [address] PCP - General Internal Medicine 08/25/19 documented as of this encounter
--- OUTSIDE RECORDS SUMMARY | 2024-12-21 11:28 | XMS_ITS | Encounter Summary ---
Author Organization [employer] Address [address] [place] [address] 7t [place] [address] Care Team Providers Care Clinical Rehabilitation Liaison Name Role Phone Ernie Noriega MD Primary Care Provide r Reason for Visit * Reason Comments Med Refill Encounter Details Date Type Department Care Team ([facility] st Contact Info) Description 08/10/2023 Refill [facility] MEDICINE 230 [place] [address] Ernie Noriega MD 230 [place] [address] Primary osteoarthritis of knee, unspecified laterality; Chronic [...] 01/12/2025 3:00 PM EDT Office Visit [facility] MEDICINE [address] [place] [address] Ernie Noriega MD [address] [place] [address] documented as of this encounter Visit Diagnoses Diagnosis Primary osteoarthritis of knee, unspecified laterality Chronic midline low back pain without sciatica Cervical radiculopathy Brachial neuritis or radiculitis nos Pain Generalized pain documented in this encounter Additional Health Concerns Assessment Noted Time PHQ-9 Depression Total Score: 0 12/02/19 23 2:38 PM EST documented as of this encounter Care Teams Clinical Rehabilitation Liaison Relationship Specialty Start Date End Date Ernie Noriega MD [address] [place] [address] PCP - General Internal Medicine 08/25/19 documented as of this encounter
--- OUTSIDE RECORDS SUMMARY | 2024-12-21 11:28 | XMS_ITS | Encounter Summary ---
Author Organization [facility] Address [address] [place] [address] Care Team Providers Care Occupational Therapist Assistants Name Role Phone Ernie Merritt MD Primary Care Provi bobo Reason for Visit * Reason Comments Post-op Encounter Details Date Type Department Care Team ([facility] st Contact Info) Description 12/16/2024 11:00 AM EST Office Visit Orthopedic Surgery - [place] [address] [facility] [address] [place] [phone] Nicolasa Yu PA [address] [facility] [address] [place] [phone] S/P trigger finger release (Primary Dx) Social [...] Primary documented in this encounter Care Teams Occupational Therapist Assistants Relationship Specialty Start Date End Date Ernie Merritt MD [address] [place] [address] PCP - General Internal Medicine 05/20/21 documented as of this encounter
--- OUTSIDE RECORDS SUMMARY | 2024-12-21 11:29 | XMS_ITS | Encounter Summary ---
Author Organization [employer] Address [address] [facility] 7t [place] [address] Care Team Providers Care Facilities Engineer Name Role Phone Ernie Noriega MD Primary Care Provide r Reason for Visit * Reason Onset Date Comments Med Refill 09/18/2023 Encounter Details Date Type Department Care Team ([facility] st Contact Info) Description 09/18/2023 Refill [facility] MED & PEDS [address] [place] [address] Ernie Noriega MD [address] [facility] [place] [address] Chronic midline low back pain without sciatica; [...] Visit [facility] MEDICINE 230 [place] [address] Ernie Noriega MD 230 [place] [address] documented as of this encounter Visit Diagnoses Diagnosis Chronic midline low back pain without sciatica Cervical radiculopathy Brachial neuritis or radiculitis nos documented in this encounter Additional Health Concerns Assessment Noted Time PHQ-9 Depression Total Score: 0 12/02/19 23 2:38 PM EST documented as of this encounter Care Teams Facilities Engineer Relationship Specialty Start Date End Date Ernie Noriega MD [address] [place] [address] PCP - General Internal Medicine 08/25/19 documented as of this encounter
--- OUTSIDE RECORDS SUMMARY | 2024-12-21 11:29 | XMS_ITS | Encounter Summary ---
Author Organization [employer] Address [address] [place] [address] 7t [place] [address] Care Team Providers Care Graduate Rn Name Role Phone Ernie Noriega MD Primary Care Provide r Reason for Visit * Reason Comments Med Refill Encounter Details Date Type Department Care Team ([facility] st Contact Info) Description 08/28/2023 Refill [facility] [address] [place] [address] Perlita Woody MD [address] [place] [address] Primary hypertension Social History Tobacco Use Types [...] Office Visit [facility] MEDICINE [address] [place] [address] Ernie Noriega MD 230 [place] [address] documented as of this encounter Visit Diagnoses Diagnosis Primary hypertension Unspecified essential hypertension documented in this encounter Additional Health Concerns Assessment Noted Time PHQ-9 Depression Total Score: 0 12/02/19 23 2:38 PM EST documented as of this encounter Care Teams Graduate Rn Relationship Specialty Start Date End Date Ernie Noriega MD 230 [place] [address] PCP - General Internal Medicine 08/25/19 documented as of this encounter
--- OUTSIDE RECORDS SUMMARY | 2024-12-21 11:29 | XMS_ITS | Encounter Summary ---
Author Organization [employer] Address [address] [place] [address] 7t [place] [address] Care Team Providers Care Lead Qa Analyst Name Role Phone Ernie Noriega MD Primary Care Provide r Reason for Visit * Reason Onset Date Comments Med Refill 09/18/2023 Encounter Details Date Type Department Care Team ([facility] st Contact Info) Description 09/18/2023 Telephone [facility] MEDICINE 230 [place] [address] Ernie Noriega MD 230 [place], [place] [phone] Med Refill Social History Tobacco Use Types [...] (Ultram) 50 MG tablet Please sent to [facility]/pharmacy #[id number] [place], [place] - [address] [place] [address] documented in this encounter Plan of Treatment Upcoming Encounters Date Type Department Care Team (Late st Contact Info) Description 01/12/2025 3:00 PM EDT Office Visit [facility] MEDICINE 230 [place], [place] [phone] Ernie Noriega MD [address] [place] [address] documented as of this encounter Visit Diagnoses Not on filedocumented in this encounter Additional Health Concerns Assessment Noted Time PHQ-9 Depression Total Score: 0 12/02/19 23 2:38 PM EST documented as of this encounter Care Teams Lead Qa Analyst Relationship Specialty Start Date End Date Ernie Noriega MD [address] [place], [place] [phone] PCP - General Internal Medicine 08/25/19 documented as of this encounter
--- OUTSIDE RECORDS SUMMARY | 2024-12-21 11:29 | XMS_ITS | Encounter Summary ---
Author Organization [facility] Address [address] [place] [address] Care Team Providers Care Extension Division Director Name Role Phone Ernie Merritt Primary Care Provider + Encounter Details Date Type Department Care Team (Late st Contact Info) Description 12/13/2024 Telephone [facility] [address] [place] [phone] Christopher Peres MD [address] [place], [place] [phone] Social History Tobacco Use Types Packs/Day Years [...] 12/13/2024 11:00 AM EST Left voicemail using compliance nurse services to let patient know that Dr Peres would not be available on due to an emergency and we need her to call back to be rescheduled. documented in this encounter Plan of Treatment Upcoming Encounters Date Type Department Care Team (Late st Contact Info) Description 03/14/2025 3:00 PM EDT Follow-Up [facility] [address] [place] [address] Christopher Peres MD [address] [place] [address] documented as of this encounter Visit Diagnoses Not on filedocumented in this encounter Care Teams Extension Division Director Relationship Specialty Start Date End Date Ernie Merritt [address] [place] [address] PCP - General Internal Medicine 11/29/24 documented as of this encounter
--- OUTSIDE RECORDS SUMMARY | 2024-12-21 11:29 | XMS_ITS | Encounter Summary ---
Author Organization [employer] Address [address] [place] [address] 7t [place] [address] Care Team Providers Care Train Reservation Clerk Name Role Phone Ernie Noriega MD Primary Care Provide r Reason for Visit * Reason Onset Date Comments Med Refill 10/25/2023 Encounter Details Date Type Department Care Team ([facility] st Contact Info) Description 10/25/2023 Refill [facility] [address] [place] [address] Perlita Woody MD [address] [place] [address] Primary hypertension Social History Tobacco Use Types [...] Description 01/12/2025 3:00 PM EDT Office Visit [facility] [address] [place] [address] Ernie Noriega MD [address] [place] [address] documented as of this encounter Visit Diagnoses Diagnosis Primary hypertension Unspecified essential hypertension documented in this encounter Additional Health Concerns Assessment Noted Time PHQ-9 Depression Total Score: 0 12/02/19 23 2:38 PM EST documented as of this encounter Care Teams Train Reservation Clerk Relationship Specialty Start Date End Date Ernie Noriega MD [address] [place] [address] PCP - General Internal Medicine 08/25/19 documented as of this encounter
--- OUTSIDE RECORDS SUMMARY | 2024-12-21 11:29 | XMS_ITS | Encounter Summary ---
Author Organization [employer] Address [address] [place] [address] 7t [place] [address] Care Team Providers Care Real Estate Transaction Coordinator Name Role Phone Ernie Noriega MD Primary Care Provide r Reason for Visit * Reason Onset Date Comments Med Refill 04/24/2024 Encounter Details Date Type Department Care Team ([facility] st Contact Info) Description 04/24/2024 Refill [facility] [address] [place] [address] Ernie Noriega MD [address] [place] [address] Essential hypertension Social History Tobacco Use Types [...] Office Visit [facility] [address] [place] [address] Ernie Noriega MD [address] [place] [address] documented as of this encounter Visit Diagnoses Diagnosis Essential hypertension Unspecified essential hypertension documented in this encounter Additional Health Concerns Assessment Noted Time PHQ-9 Depression Total Score: 2 01/21/20 24 1:25 PM EDT documented as of this encounter Care Teams Real Estate Transaction Coordinator Relationship Specialty Start Date End Date Ernie Noriega MD [address] [place] [address] PCP - General Internal Medicine 08/25/19 documented as of this encounter
--- OUTSIDE RECORDS SUMMARY | 2024-12-21 11:29 | XMS_ITS | Encounter Summary ---
Author Organization [facility] Address [address] [place] [address] 7t [place] [address] Care Team Providers Care Park Landscape Architect Name Role Phone Ernie Noriega MD Primary Care Provide r Encounter Details Date Type Department Care Team (Latest Contact Info) Description 06/19/2022 Abstract [facility] CONVERSION[facility] Dental, Provider, DDS Social History Tobacco [...] 3:00 PM EDT Office Visit [facility] [address] [place] [address] Ernie Noriega MD [address] [place] [address] documented as of this encounter Visit Diagnoses Not on filedocumented in this encounter Care Teams Park Landscape Architect Relationship Specialty Start Date End Date Ernie Noriega MD [address] [place] [address] PCP - General Internal Medicine 08/25/19 documented as of this encounter
--- OUTSIDE RECORDS SUMMARY | 2024-12-21 11:29 | XMS_ITS | Encounter Summary ---
Author Organization [employer] Address [address] [place] [address] 7t [place] [address] Care Team Providers Care Ski Tow Operator Name Role Phone Ernie Noriega MD Primary Care Provide r Reason for Visit * Reason Comments Med Refill Encounter Details Date Type Department Care Team ([facility] st Contact Info) Description 11/28/2024 Refill [facility] [address] [place], [place] [phone] Ernie Noriega MD [address] [place], [place] [phone] Gastritis without bleeding, unspecified chronicity, unspecified gastritis [...] PM EDT Office Visit [facility] [address] [place] [address] Ernie Noriega MD [address] [place] [address] documented as of this encounter Visit Diagnoses Diagnosis Gastritis without bleeding, unspecified chronicity, unspecified gastritis type documented in this encounter Additional Health Concerns Assessment Noted Time PHQ-9 Depression Total Score: 2 01/21/20 24 1:25 PM EDT documented as of this encounter Care Teams Ski Tow Operator Relationship Specialty Start Date End Date Ernie Noriega MD [address] [place] [address] PCP - General Internal Medicine 08/25/19 documented as of this encounter
--- OUTSIDE RECORDS SUMMARY | 2024-12-21 11:29 | XMS_ITS | Encounter Summary ---
Author Organization [employer] Address [address] [place] [address] 7[address] [place] [address] Care Team Providers Care Hot Strip Finisher Name Role Phone Ernie Noriega MD Primary Care Provide r Reason for Visit * Reason Onset Date Comments Med Refill 11/03/2023 Encounter Details Date Type Department Care Team ([facility] st Contact Info) Description 11/03/2023 Refill [facility] [address] [place] [address] Ernie Noriega MD [address] [place] [address] Seasonal allergies Social History Tobacco Use Types [...] Description 01/12/2025 3:00 PM EDT Office Visit [facility] [address] [place] [address] Ernie Noriega MD [address] [place] [address] documented as of this encounter Visit Diagnoses Diagnosis Seasonal allergies Allergic rhinitis, cause unspecified documented in this encounter Additional Health Concerns Assessment Noted Time PHQ-9 Depression Total Score: 0 12/02/19 23 2:38 PM EST documented as of this encounter Care Teams Hot Strip Finisher Relationship Specialty Start Date End Date Ernie Noriega MD [address] [place] [address] PCP - General Internal Medicine 08/25/19 documented as of this encounter
--- OUTSIDE RECORDS SUMMARY | 2024-12-21 11:29 | XMS_ITS | Encounter Summary ---
Author Organization [employer] Address [address] [place] [address] [address] [place] [address] Care Team Providers Care Supervisor Model Making Name Role Phone Ernie Noriega MD Primary Care Provide r Reason for Visit * Reason Comments Med Refill Encounter Details Date Type Department Care Team ([facility] st Contact Info) Description 08/10/2023 Refill [facility] [address] [place] [address] Perlita Woody MD [address] [place] [address] Seasonal allergies; Primary hypertension Social History Tobacco [...] Description 01/12/2025 3:00 PM EDT Office Visit [facility] [address] [place] [address] Ernie Noriega MD [address] [place] [address] documented as of this encounter Visit Diagnoses Diagnosis Seasonal allergies Allergic rhinitis, cause unspecified Primary hypertension Unspecified essential hypertension documented in this encounter Additional Health Concerns Assessment Noted Time PHQ-9 Depression Total Score: 0 12/02/19 23 2:38 PM EST documented as of this encounter Care Teams Supervisor Model Making Relationship Specialty Start Date End Date Ernie Noriega MD [address] [place] [address] PCP - General Internal Medicine 08/25/19 documented as of this encounter
--- OUTSIDE RECORDS SUMMARY | 2024-12-21 11:29 | XMS_ITS | Encounter Summary ---
Author Organization [employer] [facility] Address [address] [place] [address] 7 [place] [address] Care Team Providers Care Youth Counselor Name Role Phone Ernie Noriega MD Primary Care Provide r Reason for Visit * Reason Onset Date Comments Appointment Request 02/17/2023 Encounter Details Date Type Department Care Team ([facility] st Contact Info) Description 02/17/2023 Telephone [facility] [address] [place] [address] Ernie Noriega MD [address] [place] [address] Appointment Request Social History Tobacco Use Types [...] a colonoscopy due to advise by her fifth hand in [facility] Please contact pt AT [phone] Hungarian 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 documented in this encounter Plan of Treatment Upcoming Encounters Date Type Department Care Team (Late st Contact Info) Description 01/12/2025 3:00 PM EDT Office Visit [facility] [address] [place] [address] Ernie Noriega MD [address] [place] [address] documented as of this encounter Visit Diagnoses Not on filedocumented in this encounter Additional Health Concerns Assessment Noted Time PHQ-9 Depression Total Score: 0 12/02/19 23 2:38 PM EST documented as of this encounter Care Teams Youth Counselor Relationship Specialty Start Date End Date Ernie Noriega MD [address] [place], [place] [phone] PCP - General Internal Medicine 08/25/19 documented as of this encounter
--- OUTSIDE RECORDS SUMMARY | 2024-12-21 11:29 | XMS_ITS | Referral Summary ---
Author Organization [facility] Address [address] [place] [address] Care Team Providers Care Master Carpenter Name Role Phone Ernie Merritt Primary Care Provider + Encounters Date Type Department Care Team Description 12/14/2024 9:00 AM EST Office Visit [facility] [address] [place] [phone] Christopher Peres MD Chronic bilateral low back pain with bilateral sciatica (Primary Dx); H/O cervical spine surgery 12/13/2024 Telephone [facility] [address] [place] [phone] Christopher Peres MD 12/08/2024 Telephone [facility] [address] [place] [address] Christopher Peres MD 11/01/2024 Orders Only [facility] - External Imaging [address] [place] [id number] Radiology, External from Last 3 Months Allergies [...] propionate (FLONASE) 50 mcg/actuation nasal spray [employer] [place](s) Both Nares Twice Daily 3 Active tamsulosin [...] Info) Description 03/14/2025 3:00 PM EDT Follow-Up [facility] [address] [place] [address] Christopher Peres MD [address] [place] [address] Procedures * Due to [place] [employer] law, this organization might not be sharing [...] Last 3 Months Results * Due to [place] law, this organization might not be sharing [...] obtain the completed interpretation. ? Workstation ID: [id number] Narrative 12/14/2024 5:30 PM EST COMPARISON: There are no prior studies available for comparison at this time. Resulting Agency Comment [id number] Procedure Note Stone Reid MD - 12/14/2024 [...] possible to obtain thecompleted interpretation. Workstation ID: [id number] us Christopher Peres MD IMG XR PROCEDURES [...] obtain the completed interpretation. ? Workstation ID: [id number] Narrative 12/14/2024 5:30 PM EST COMPARISON: There are no prior studies available for comparison at this time. Resulting Agency Comment [id number] Procedure Note Stone Reid MD - 12/14/2024 [...] possible to obtain thecompleted interpretation. Workstation ID: [id number] us Christopher Peres MD IMG XR PROCEDURES Final Res ult * MRI Thoracic and Lumbar Spine, Outside Result (11/01/2024) Anatomical Region Laterality Modality Other 11/01/2024 us Onbase Scan Carol AMB EXTERNAL RESULT PROCEDURE S Final Result from Last 3 Months [facility] [address] [place] [place] [address]HEALTH Care Teams Master Carpenter Relationship Specialty Start Date End Date Ernie Merritt [address] [place] [address] [place] [address] PCP - General Internal Medicine 11/29/24
--- OUTSIDE RECORDS SUMMARY | 2024-12-21 11:29 | XMS_ITS | Clinical Summary ---
Author Organization [employer] Address [address] [place] [address] 7[address] [place] [address] Care Team Providers Care Burn Out Scarfing Operator Name Role Phone Ernie Noriega MD [...] has chronic low back pain, treated at [facility] by Dr Clint Newberry. Hx of AP fusion from L4-sacrum in 2003. She has received epidural injections initially with good results but that is no longer the case. Pt developed lumbar spinal stenosis and on 01/14/2021 underwent Posterior neural foraminotomy L2-L3 by Dr. Bailey. She was admitted to [facility] from 11/13/2022 until 11/20/2022 due to worsening low back pain with radiation to her right thigh and right leg after an experimental thoracic spinal stimulation procedure at the surgery center [facility] (She was referred there by [facility]). Procedure [...] does not want to follow-up with Spinal [place] d/t the severe pain she experienced with [...] care of Orthopaedic specialist Dr Lees at [facility]. Pt would like to hold off on procedure until her back feels better. I contacted the office of Orthopaedic surgeon who stated this was an elective procedure and was ok with delaying until pt felt ready Assessment & Plan (12/04/2022 8:31 AM EST): Pt had initially come in for a Preoperative exam. Under the care of Orthopaedic specialist Dr Lees at [facility]. Pt would like to hold off [...] has a Medical [place] Card [facility]. pt utilizes the liquid form. [...] has a Medical [place] Card recommended by [facility] treating physician. pt utilizes the liquid form. She is no longer under the care of [facility] I had been prescribing tramadol to use [...] Dr Soto who referred her back to [facility] for back pain History of total knee [...] Pt underwent colorectal cancer screening by Dr Mlilan on 06/15/2013 and showed sigmoid diverticulosis and internal hemorrhoids. 10 year f/u recommended 2022, already scheduled Depressive disorder 10/29/2012 Assessment & Plan (05/28/2023 3:42 PM EDT): Under the care of Dr Almeida at [facility]. see med list for current psychiatric meds, no changes. she has been stable they have requested me to continue his medications for insomnia, Ambien and Benadryl Chronic low back pain 05/12/2012 Assessment & Plan (10/13/2024 3:42 PM EST): Pt here for a f/u Hx of chronic low back pain, treated in the past at [facility] by Dr Clint Newberry. Hx of AP fusion from L4-sacrum in 2003. She received epidural injections with good results in the past. but that was no longer the case. Pt developed lumbar spinal stenosis and on 01/14/2021 underwent Posterior neural foraminotomy L2-L3by Dr. Bailey. She was admitted to [facility] from 11/13/2022 until 11/20/2022 due to worsening low back pain with radiation to her right thigh and right leg after an experimental thoracic spinal stimulation procedure at the surgery center [facility] (She was referred there by [facility]). Procedure was aborted after pt experienced severe [...] pain, she had been receiving treatment at [facility] by Dr Clint Newberry. Hx of AP fusion from L4-sacrum in 2003. She has received epidural injections with good results in the past. but that was no longer the case. Pt developed lumbar spinal stenosis and on 01/14/2021 underwent Posterior neural foraminotomy L2-L3by Dr. Bailey. Patient is here for a follow up. She was recently admitted to [facility] from 11/13/2022 until 11/20/2022 due to worsening low back pain with radiation to her right thigh and right leg after an experimental thoracic spinal stimulation procedure at the surgery [facility] (She was referred there by [facility]). Procedure was aborted after pt experienced severe [...] does not want to follow-up with Spinal [place] d/t the severe pain she experienced with [...] pain, she had been receiving treatment at [facility] by Dr Clint Newberry. Hx of AP fusion from L4-sacrum in 2003. She has received epidural injections with good results in the past. but that was no longer the case. Pt developed lumbar spinal stenosis and on 01/14/2021 underwent Posterior neural foraminotomy L2-L3liv Bailey. She was admitted to [facility] from 11/13/2022 until 11/20/2022 due to worsening low back pain with radiation to her right thigh and right leg after an experimental thoracic spinal stimulation procedure at the surgery [facility] (She was referred there by [facility]). Procedure was aborted after pt experienced severe [...] does not want to follow-up with Spinal [place] d/t the severe pain she experienced with [...] pain, she had been receiving treatment at [facility] by Dr Clint Newberry. Hx of AP fusion from L4-sacrum in 2003. She has received epidural injections with good results in the past. but that was no longer the case. Pt developed lumbar spinal stenosis and on 01/14/2021 underwent Posterior neural foraminotomy L2-L3by Dr. Bailey. Patient is here for a follow up. She was recently admitted to [facility] from 11/13/2022 until 11/20/2022 due to worsening low back pain with radiation to her right thigh and right leg after an experimental thoracic spinal stimulation procedure at the surgery center [facility] (She was referred there by [facility]). Procedure was aborted after pt experienced severe [...] does not want to follow-up with Spinal [place] d/t the severe pain she experienced with [...] Description 12/21/2024 9:00 AM EDT Office Visit [facility] [address] [place] [address] Right foot pain (Primary Dx); Ecchymoses, spontaneous 12/15/2024 Refill [facility] [address] [place], [place] [id number] Ernie Noriega MD 12/09/2024 Orders Only [facility] External Provider, [facility] 11/28/2024 Refill [facility] [address] [place] [address] Ernie Noriega MD Gastritis without bleeding, unspecified chronicity, unspecified gastritis type 11/18/2024 Refill [facility] [address] [place], [place] [phone] Ernie Noriega MD Primary hypertension 11/17/2024 Refill [facility] [address] [facility] [address] Ernie Noriega MD Seasonal allergies 11/14/2024 Refill [facility] [address] [facility] [address] Ernie Noriega MD Primary osteoarthritis of knee, unspecified laterality 11/07/2024 Refill [facility] [address] [facility] [place] [address] Ernie Noriega MD Chronic midline low back pain without sciatica 11/01/2024 Refill [facility] [address] [place] [address] Sugar Mitchell MD Seasonal allergies 11/01/2024 Refill [facility] [address] [place] [address] Sugar Mitchell MD Seasonal allergies 10/25/2024 1:20 PM EST Office Visit [facility] [address] [facility] [place] [address] Ofelia Melgar MD UTI symptoms 10/25/2024 Refill [facility] [address] [place] [address] Ernie Noriega MD Chronic midline low back pain without sciatica 10/25/2024 Telephone [facility] [address] [place] [address] Ernie Noriega MD Med Refill 10/25/2024 Travel 10/17/2024 Refill [facility] [address] [place] [address] Ernie Noreiga MD Primary osteoarthritis of knee, unspecified laterality 10/16/2024 Refill [facility] [address] [facility] [place] [address] Sugar Mitchell MD 10/14/2024 Telephone [facility] [address] [place] [address] Ernie Noriega MD Med Refill 10/13/2024 3:00 PM EST Office Visit [facility] [address] [place] [address] Ernie Noriega MD Essential hypertension (Primary Dx); Mild persistent asthma without complication; Chronic midline low back pain without sciatica 10/13/2024 Refill [facility] [address] [place] [address] Ernie Noriega MD Chronic midline low back pain without sciatica 10/13/2024 Travel 10/12/2024 Travel 10/12/2024 Refill [facility] [address] [place] [address] Erine Noriega MD Primary osteoarthritis of knee, unspecified laterality 10/10/2024 Refill [facility] [address] [place], [place] [address] Ernie Noriega MD Pain 10/06/2024 Travel 10/03/2024 Telephone [facility] [address] [place] [address] Ernie Noriega MD 10/03/2024 Patient Outreach [facility] [address] [place], [place] [address] Ernie Noriega MD Pre-visit Planning (SDOH screening was completed on 01/21/2024) 09/28/2024 Telephone [facility] [address] [place] [address] Ernie Noriega MD Med Refill 09/28/2024 Refill [facility] [address] [place] [address] Ernie Noriega MD Primary osteoarthritis of knee, unspecified laterality 09/28/2024 Refill [facility] [address] [place] [address] Ernie Noriega MD Chronic midline low back pain without sciatica; Cervical radiculopathy 09/27/2024 Refill [facility] [address] [place] [address] Ernie Noriega MD Chronic midline low back [...] EDT Office Visit [facility] [address] [place] [address] Ernie Noriega MD [address] [place] [address] Health Maintenance Due Date Last Done Comments [...] Laterality Modality Lower Extremities, Foot Right Radiogra psychiatricc Imaging 12/21/2024 9:42 AM EDT Narrative 12/21/2024 10:03 AM EDT ?[facility] ?[address] ?[place] [address] ?XRay Report ? Signed ? Patient: Julien,[place] ?MR#: [id number] ?? 12 ? : 1965 ?Acct:[id number] ? Age/Sex: 59 / F ?ADM Date: 12/21/24 ? Loc: HO.HHCX ? Attending Dr: Marty Soto MD ? Ordering Physician: MARTY SOTO MD ?? Date of Service: 12/21/24 ?? Procedure(s): XR foot RT min 3V ?? Accession Number(s): [id number] ? cc: MARTY SOTO MD ? EXAMINATION: [...] DD/ 0942 ? TD/TT: 12/21/24 0956 ? Drying Can Worker: ? Procedure Note Tiesha, Image - 12/21/[address] [address] XRay Report Signed Patient: Miguelina Julien#: [id number] [birth year] : 1965Acct:[id number] Age/Sex: 59 / FADM Date: 12/21/24 Loc: HO.HHCX Attending Dr: Marty Soto MD Ordering Physician: MARTY SOTO MD Date of Service: 12/21/24 Procedure(s): XR foot RT min 3V Accession Number(s): [id number] cc: MARTY SOTO MD EXAMINATION: XR FOOT [...] 12/21/24 1000 DD/ 0942 TD/TT: 12/21/24 0956 Drying Can Worker: us Marty Soto MD IMG XR PROCEDURES Final Result * FL Guidance in OR (12/09/2024 9:08 AM EST) Anatomical Region Laterality Modality X-Ray Angiograph y 12/09/2024 9:08 AM EST Narrative 12/09/2024 9:48 AM EST ? [facility] ?[address] ?[place] [address] ? Fluoroscopy Report ? Signed ? Patient: Miguelina Julien ?MR#: [id number] ?? 12 ? : 1965 ?Acct:[id number] ? Age/Sex: 59 / F ?ADM Date: 12/09/24 ? Loc: HO.SSS ? Attending Dr: Aldo Casas MD ? Ordering Physician: Aldo Casas MD ?? Date of Service: 12/09/24 ?? Procedure(s): FL guidance in OR ?? Accession Number(s): [id number] ? cc: Ofelia Melgar MD; Aldo Casas [...] DD/ 0908 ? TD/TT: 12/09/24 0930 ? Drying Can Worker: ? Procedure Note Donsomter, Image - 12/09/[address] [address] Fluoroscopy Report Signed Patient: Miguelina JulienMR#: [id number] 12 : 1965Acct:[id number] Age/Sex: 59 / FADM Date: 12/09/24 Loc: [facility] Attending Dr: Aldo Casas MD Ordering Physician: Aldo Cassa MD Date of Service: 12/09/24 Procedure(s): FL guidance in OR Accession Number(s): [id number] cc: Ofelia Melgar MD; Aldo Casas MD [...] in OV> 12/09/249[address] DD/ 7 TD/TT: 12/09/[address] Drying Can Worker: [facility] External Provider IMG IR PROCEDURES Final [...] (10/25/2024 12:00 AM EST) Color Urine Yellow [facility] Appearance Urine Clear [facility] PH 5.5 5.0 - 9.0 [facility] Glucose Urine UA Negative Negative mg/dL [facility] Urine Blood Negative Negative [facility] Specific Joffre - Urine 1.015 1.005 - 1.025 [facility] Urine Protein Negative Neg-Trace mg/dL [facility] Urine Ketones Negative Negative mg/dL [facility] Nitrite Urine Negative Negative [facility] Leukocyte Esterase Urine Negative Negative [facility] RBC Urine 0-2 0 - 2 /HPF [facility] Urine WBC 0-5 0 - 5 /HPF [facility] Urine Squamous Epithelial Cell 0-2 0 - 2 /HPF [facility] Urine Bacteria None Seen None Seen [facility] Hyaline Casts, Urine 0-2 0 - 2 /LPF [facility] Urine 10/25/2024 10/25/2024 Narrative [facility] - 10/25/2024 5:35 PM EST Urine, Clean Catch Ofelia Melgar MD LAB URINE ORDERABLES Final Result [facility] [address] [place] [address] [phone] * XR Lumbar Spine Complete 4+ Views (09/23/2024 2:10 PM EST) Anatomical Region Laterality Modality Spine, L-spine Radiographic Anabella ging 09/23/2024 2:10 PM EST Narrative 11/10/2024 9:14 AM EST ? [facility] ? [address] ?[place] [address] ?XRay Report ? Signed ? Patient: Julien,[place] ?MR#: [id number] ?? 12 ? : 1965 ?Acct:[id number] ? Age/Sex: 59 / F ?ADM Date: 09/23/24 ? Loc: HO.HOSX ? Attending Dr: Tr WILDER ? Ordering Physician: Tr Soliman ?? Date of Service: 09/23/24 ?? Procedure(s): XR lumbar spine 4V min ?? Accession Number(s): [id number] ? cc: Tr Soliman; Ernei Merritt MD ? EXAMINATION: ?? XR LUMBAR [...] ?? significant subluxation with flexion or extension. Scgz-yi-pdhuvafh ?? stool burden. ? XR/XR lumbar spine 4V min ?? IMPRESSION: ?? 1. Postsurgical changes at L3-S1 without evidence of hardware ?? complication. ? 2. Grade 1 retrolisthesis of T12 on L1 and straightening of the normal ?? lumbar lordosis, unchanged. No significant subluxation with flexion or ?? extension. ? 3. Multilevel degenerative disc disease, most prominent at L1-L3. ? 4. Oywx-xy-iuhdxfpf stool burden. No significant subluxation with ?? flexion or extension. ? Electronically signed by: ??Luc Lieberman MD ??11/10/2024 09:11 AM EST ?? RP ? Dictated By: ?Luc Lieberman MD ? Signed By: ?<Electronically signed by Luc Lieberman MD in OV> ?11/10/24 0911 ? DD/ 1410 ? TD/TT: 09/23/24 1415 ? Drying Can Worker: SR ? Procedure Note Donsomter, Image - 11/10/2024 [facility] [address] [place] [address] [address] [place] [address] XRay Report Signed Patient: Miguelina JulienMR#: [id number] 12 : 1965Acct:[id number] Age/Sex: 59 / FADM Date: 09/23/24 Loc: [facility] Attending Dr: Tr WILDER Ordering Physician: Tr Soliman Date of Service: 09/23/24 Procedure(s): XR lumbar spine 4V min Accession Number(s): [id number] cc: Tr Soliman; Ernie Merritt MD EXAMINATION: [...] No significant subluxation with flexion or extension. Hrkx-lp-xqyylait stool burden. XR/XR lumbar spine 4V min IMPRESSION: 1. Postsurgical changes at L3-S1 without evidence of hardware complication. 2. Grade 1 retrolisthesis of T12 on L1 and straightening of the normal lumbar lordosis, unchanged. No significant subluxation with flexion or extension. 3. Multilevel degenerative disc disease, most prominent at L1-L3. 4. Miix-my-dcogpgdr stool burden. No significant subluxation with flexion or extension. Electronically signed by: Luc Lieberman MD 11/10/2024 09:11 AM EST Dictated By: Luc Lieberman MD Signed By: <Electronically signed by Luc Lieberman MD in OV> 11/10/24 0911 DD/ 1410 TD/TT: 09/23/24 141 Drying Can Worker: [facility] External Provider IMG XR PROCEDURES Edited Result - Final * (ABNORMAL) Colonoscopy (03/18/2024) Colonoscopy Abnormal( A) Normal Comment:Tubular Adenoma 03/18/2024 Historical Provider HEALTH MAINTENANCE Final Result * BI Mammogram Screening Tomosynthesis Bilateral (01/01/2024 8:45 AM EDT) Anatomical Region Laterality Modality Breast Bilateral Mammography 01/01/2024 8:45 AM EDT Narrative 01/19/2024 10:06 AM EDT ? [facility] [place] ? [address] ?[place] [address] ? Mammography Report ? Signed ? Patient: Juan Pablo Taylor,Miguelina ?MR#: ?? [id number] ? : 1965 ?Acct:[id number] ? Age/Sex: 58 / F ?ADM Date: 03/22/24 ? Loc: HO.MAMMO ? Attending Dr: Ernie Merritt MD ? Ordering Physician: Ernie Merritt MD ?Resu ?? lts: 2Benign Findings ? Date of Service: 01/01/24 ?Follow Up: 1 Year From Orig ?? inal Mammogram ? Procedure(s): MM tomosynthesis screening BI ?? Accession Number(s): [id number] ? cc: Ernie Merritt MD ? EXAMINATION: [...] 1003 ? DD/ 0845 ? TD/TT: ? Drying Can Worker: ? Procedure Note Donvernaazarjuliannter, Image - 01/19/2024 [facility] [address] [place], [place] [address] Mammography Report Signed Patient: Miguelina Watson#: [id number] : 1965Acct:[id number] Age/Sex: 58 / FADM Date: 01/01/24 Loc: HO.MAMMO Attending Dr: Ernie Merritt MD Ordering Physician: Ernie Merritt MDResu lts: 2Benign Findings Date of Service: 01/01/24Follow Up: 1 Year From Orig inal Mammogram Procedure(s): MM tomosynthesis screening BI Accession Number(s): [id number] cc: Ernie Merritt MD EXAMINATION: MM SCREENING [...] in OV> 01/19/24 1003 DD/ 0845 TD/TT: Drying Can Worker: us Ernie Ro MD IMG BI PROCEDURES Fin al Result * (ABNORMAL) Lipid Panel with Reflex to Direct LDL (11/07/2022 8:24 AM EST) Cholesterol, Total 235(H) <200 mg/dL [facility] HDL Cholesterol 64 > OR = 50 mg/dL [facility] Triglycerides 252(H) <150 mg/dL [facility] Comment: If a non-fasting specimen was collected, consider repeat triglyceride testing on a fasting specimen if clinically indicated. Bebo et al. J. of Clin. Lipidol. 2015;9:129-169. LDL Cholesterol 132(H) mg/dL (calc) [facility] Comment: Reference range: <100 Desirable range <100 mg/dL for primary prevention; ?? <70 mg/dL for patients with CHD or diabetic patients with > or = 2 CHD risk factors. LDL-C is now calculated using the Jordan-Nereyda calculation, which is a validated novel method providing better accuracy than the Friedewald equation in the estimation of LDL-C. Jordan CARREON et al. BHARAT. 2013;310(19): 6571-9222 (http://education.AntCor/faq/ZWY377) Chol/HDLC Ratio 3.7 <5.0 (calc) [facility] Non-HDL Cholesterol 171(H) <130 mg/dL (calc) [facility] Comment: For patients with diabetes plus 1 major ASCVD risk factor, treating to a non-HDL-C goal of <100 mg/dL (LDL-C of <70 mg/dL) is considered a therapeutic option. 11/07/2022 8:24 AM EST 11/07/2022 8:25 AM EST Narrative [facility] - 11/08/2022 12:51 AM EST FASTING:YES FASTING: YES Ernie Ro MD LAB BLOOD ORDERABLES Final Result Performing Organization Address City/[facility]/ZIP Co de Phone Number [address], [place] [address] [employer] [facility] [address] [place] [address], (Nl2) [place] [address] * Hepatitis C Antibody with Reflex to HCV, RNA, Quantitative, Real-Time PCR (11/07/2022 8:24 AM EST) Pathologist [facility] Hepatitis C Antibody NON-REACT TAMARA NON-REACT TAMARA [employer] [facility] Index 0.12 <1.00 [employer] [facility] Comment: HCV antibody was non-reactive. There is no laboratory evidence of HCV infection. In most cases, no further action is required. However, if recent HCV exposure is suspected, a test for HCV RNA (test code 54156) is suggested. For additional information please refer to http://education.AppInstitute/faq/PSO58t2 (This link is being provided for informational/ educational purposes only.) Blood Venous blood specimen / Unknown 11/07/2022 8:24 AM EST 11/07/2022 8:25 AM EST Narrative [facility] - 11/08/2022 12:51 AM EST FASTING:YES FASTING: YES Result [facility] Ernie Ro MD LAB BLOOD ORDERABLES Final Result Performing Organization Address City/[facility]/ZIP Co de Phone Number [address], [place] [address] [employer] [place] [employer] [address] [place] [address], (Nl2) [place] [address] * HPV E6/E7 RFLX SERGIO 16 18/45 (12/19/2020 3:40 PM EST) Pathologist [facility] HPV 16 RNA [facility] HPV 18/45 RNA [facility]NP [facility] HPV E6 E7 ADD [facility]NP [facility] HPV mRNA E6/E7 rflx Not Detected Not Detected [facility] Comment: Methodology: Shopper Marketing Manager-Mediated Amplification This assay detects E6/E7 viral messenger RNA (mRNA) from 14 high-risk HPV types (16,18,31,33,35,39,45,51,52,56,58,59,66,68). The analytical performance characteristics of this assay have been determined by [employer]. The modifications have not been cleared or approved by the FDA. This assay has been validated pursuant to the CLIA regulations and is used for clinical purposes. For additional information, please refer to http://education.AppInstitute/faq/AAA877g4 (This link if provided for information/ educational purposes only.) THIS TEST WAS PERFORMED AT: [facility] [address] [place] [address],[address] [place], [place] ??[address] FLACA ANTONY MD 12/19/2020 3:40 PM EST us Historical Provider HISTORICAL/NON ORDERABLE LABS Final Result [facility] [address] from Last 3 Months or Most Recently Relevant to Health Maintenance Insurance [facility] C3 Care Teams Burn Out Scarfing Operator Relationship Specialty Start Date End Date Ernie Noriega MD [address] [place] [phone] PCP - General Internal Medicine 08/25/19
--- OUTSIDE RECORDS SUMMARY | 2024-12-21 11:29 | XMS_ITS | Encounter Summary ---
Author Organization [employer] Address [address] [place] [address] 7 [place] [address] Care Team Providers Care Automobile Mechanic Radiator Name Role Phone Ernie Noriega MD Primary Care Provide r Reason for Visit * Reason Onset Date Comments Med Refill 10/25/2023 Encounter Details Date Type Department Care Team ([facility] st Contact Info) Description 10/25/2023 Refill [facility] [address] [place] [address] Ernie Noriega MD [address] [place] [address] Social History Tobacco Use Types Packs/Day Years [...] 3:00 PM EDT Office Visit [facility] [address] [place] [address] Ernie Noriega MD [address] [place] [address] documented as of this encounter Visit Diagnoses Not on filedocumented in this encounter Additional Health Concerns Assessment Noted Time PHQ-9 Depression Total Score: 0 12/02/19 23 2:38 PM EST documented as of this encounter Care Teams Automobile Mechanic Radiator Relationship Specialty Start Date End Date Ernie Noriega MD [address] [place] [address] PCP - General Internal Medicine 08/25/19 documented as of this encounter
--- OUTSIDE RECORDS SUMMARY | 2024-12-21 11:29 | XMS_ITS | Encounter Summary ---
Author Organization [employer] Address [address] [place] [address] 7t [place] [address] Care Team Providers Care Health Assistant Name Role Phone Ernie Noriega MD Primary Care Provide r Reason for Visit * Reason Onset Date Comments Med Refill 11/04/2023 Encounter Details Date Type Department Care Team ([facility] st Contact Info) Description 11/04/2023 Refill [facility] MEDICINE [address] [place] [address] Ernie Noriega MD 230 [place] [address] Chronic midline low back pain without sciatica; [...] Visit [facility] MEDICINE [address] [place] [address] Ernie Noriega MD [address] [place] [address] documented as of this encounter Visit Diagnoses Diagnosis Chronic midline low back pain without sciatica Cervical radiculopathy Brachial neuritis or radiculitis nos Seasonal allergies Allergic rhinitis, cause unspecified documented in this encounter Additional Health Concerns Assessment Noted Time PHQ-9 Depression Total Score: 0 12/02/19 23 2:38 PM EST documented as of this encounter Care Teams Health Assistant Relationship Specialty Start Date End Date Ernie Noriega MD [address] [place] [address] PCP - General Internal Medicine 08/25/19 documented as of this encounter
--- OUTSIDE RECORDS SUMMARY | 2024-12-21 11:29 | XMS_ITS | Encounter Summary ---
Author Organization [employer] Address [address] [place] [address] 7t [place] [address] Care Team Providers Care Short Goods Drier Name Role Phone Ernie Noriega MD Primary Care Provide r Reason for Visit * Reason Onset Date Comments Med Refill 08/12/2024 Encounter Details Date Type Department Care Team ([facility] st Contact Info) Description 08/12/2024 Refill [facility] MEDICINE 230 [place] [address] Ilsa Robison, ANP 230 [place] [address] Primary osteoarthritis of knee, unspecified laterality Social [...] Description 01/12/2025 3:00 PM EDT Office Visit [facility] MEDICINE [address] [place] [address] Ernie Noriega MD [address] [place] [address] documented as of this encounter Visit Diagnoses Diagnosis Primary osteoarthritis of knee, unspecified laterality documented in this encounter Additional Health Concerns Assessment Noted Time PHQ-9 Depression Total Score: 2 01/21/20 24 1:25 PM EDT documented as of this encounter Care Teams Short Goods Drier Relationship Specialty Start Date End Date Ernie Noriega MD [address] [place] [address] PCP - General Internal Medicine 08/25/19 documented as of this encounter
--- OUTSIDE RECORDS SUMMARY | 2024-12-21 11:29 | XMS_ITS | Encounter Summary ---
Author Organization [employer] Address [address] [place] [address] 7t [place] [address] Care Team Providers Care Biophysics Professor Name Role Phone Ernie Noriega MD Primary Care Provide r Reason for Visit * Reason Comments Med Refill Encounter Details Date Type Department Care Team ([facility] st Contact Info) Description 11/20/2023 Refill [facility] [address] [place], [place] [phone] Ernie oNriega MD [address] [place] [address] Pain Social History Tobacco Use Types Packs/Day [...] Visit [facility] MEDICINE [address] [place] [address] Ernie Noriega MD [address] [place] [address] documented as of this encounter Visit Diagnoses Diagnosis Pain Generalized pain documented in this encounter Additional Health Concerns Assessment Noted Time PHQ-9 Depression Total Score: 0 12/02/19 23 2:38 PM EST documented as of this encounter Care Teams Biophysics Professor Relationship Specialty Start Date End Date Ernie Noriega MD [address] [place] [address] PCP - General Internal Medicine 08/25/19 documented as of this encounter
--- OUTSIDE RECORDS SUMMARY | 2024-12-21 11:29 | XMS_ITS | Encounter Summary ---
Author Organization [email or web address] Address [address] [place] [address] 7t [place] [address] Care Team Providers Care Labour Market Economist Name Role Phone Ernie Noriega MD Primary Care Provide r Reason for Visit * Reason Onset Date Comments Med Refill 04/16/2024 Encounter Details Date Type Department Care Team ([facility] st Contact Info) Description 04/16/2024 Refill [facility] MEDICINE 230 [place] [address] Ernie Noriega MD [address] [place] [address] Essential hypertension Social History Tobacco Use Types [...] Office Visit [facility] MEDICINE [address] [place] [address] Ernie Noriega MD [address] [place] [address] documented as of this encounter Visit Diagnoses Diagnosis Essential hypertension Unspecified essential hypertension documented in this encounter Additional Health Concerns Assessment Noted Time PHQ-9 Depression Total Score: 2 01/21/20 24 1:25 PM EDT documented as of this encounter Care Teams Labour Market Economist Relationship Specialty Start Date End Date Ernie Noriega MD [address] [place] [address] PCP - General Internal Medicine 08/25/19 documented as of this encounter
--- OUTSIDE RECORDS SUMMARY | 2024-12-21 11:29 | XMS_ITS | Encounter Summary ---
Author Organization [employer] Address [address] [place] [address] 7t [place] [address] Care Team Providers Care Engineering Mechanic Name Role Phone Ernie Noriega MD Primary Care Provide r Reason for Visit * Reason Onset Date Comments Med Refill 08/17/2023 Encounter Details Date Type Department Care Team ([facility] st Contact Info) Description 08/17/2023 Telephone [facility] MEDICINE 230 [place], [place] [phone] Ernie Noriega MD 230 [place], [place] [phone] Med Refill Social History Tobacco Use Types [...] 50 MG tablet Please sent to [facility]/pharmacy #[id number] [place], [place] - [address] [place] [address] documented in this encounter Plan of Treatment Upcoming Encounters Date Type Department Care Team (Late st Contact Info) Description 01/12/2025 3:00 PM EDT Office Visit [facility] MEDICINE 230 [place] [address] Ernie Noriega MD 230 [place] [address] documented as of this encounter Visit Diagnoses Not on filedocumented in this encounter Additional Health Concerns Assessment Noted Time PHQ-9 Depression Total Score: 0 12/02/19 23 2:38 PM EST documented as of this encounter Care Teams Engineering Mechanic Relationship Specialty Start Date End Date Ernie Noriega MD 230 [place] [address] PCP - General Internal Medicine 08/25/19 documented as of this encounter
--- OUTSIDE RECORDS SUMMARY | 2024-12-21 11:29 | XMS_ITS | Encounter Summary ---
Author Organization [employer] Address [address] [place] [address] 7t [place] [address] Care Team Providers Care Record Tabulating Clerk Name Role Phone Ernie Noriega MD Primary Care Provide r Reason for Visit * Reason Onset Date Comments Med Refill 10/27/2023 Encounter Details Date Type Department Care Team ([facility] st Contact Info) Description 10/27/2023 Refill [facility] 230 [place] [address] Perlita Woody MD 230 [place] [address] Primary hypertension Social History Tobacco Use Types Packs/Day Years Used Date Smoking Tobacco: Former Cigarettes Passive Smoke Exposure: Past Smokeless Tobacco: Never Alcohol Use Standard Drinks/Week Comments Never 0 (1 standard drink = 0.6 oz pur e alcohol) Depression Answer Date Recorded Patient Health Questionnaire-9 Score 0 12/02/2022 Housing Stability Answer Date Recorded What is your housing situation today? I have robin ramírze 07/29/[address] you li [...] 01/12/2025 3:00 PM EDT Office Visit [facility] MEDICINE 230 [place] [address] Ernie Noriega MD 230 [place] [address] documented as of this encounter Visit Diagnoses Diagnosis Primary hypertension Unspecified essential hypertension documented in this encounter Additional Health Concerns Assessment Noted Time PHQ-9 Depression Total Score: 0 12/02/19 23 2:38 PM EST documented as of this encounter Care Teams Record Tabulating Clerk Relationship Specialty Start Date End Date Ernie Noriega MD 230 [place] [address] PCP - General Internal Medicine 08/25/19 documented as of this encounter
--- OUTSIDE RECORDS SUMMARY | 2024-12-21 11:29 | XMS_ITS | Encounter Summary ---
Author Organization [employer] Address [address] [place] [address] 7t [place] [address] Care Team Providers Care International Relations Professor Name Role Phone Ernie Noriega MD Primary Care Provide r Reason for Visit * Reason Onset Date Comments Med Refill 11/17/2024 Encounter Details Date Type Department Care Team ([facility] st Contact Info) Description 11/17/2024 Refill [facility] MEDICINE 230 [place] [address] Ernie Noriega MD 230 [place] [address] Seasonal allergies Social History Tobacco Use Types [...] Visit [facility] MEDICINE [address] [place] [address] Ernie Noriega MD 230 [place] [address] documented as of this encounter Visit Diagnoses Diagnosis Seasonal allergies Allergic rhinitis, cause unspecified documented in this encounter Additional Health Concerns Assessment Noted Time PHQ-9 Depression Total Score: 2 01/21/20 24 1:25 PM EDT documented as of this encounter Care Teams International Relations Professor Relationship Specialty Start Date End Date Ernie Noriega MD [address] [place] [address] PCP - General Internal Medicine 08/25/19 documented as of this encounter
--- OUTSIDE RECORDS SUMMARY | 2024-12-21 11:29 | XMS_ITS | Encounter Summary ---
Author Organization [employer] Address [address] [place] [address] 7t [place] [address] Care Team Providers Care Dehydrogenation Supervisor Name Role Phone Ernie Noriega MD Primary Care Provide r Reason for Visit * Reason Onset Date Comments Med Refill 08/13/2024 Encounter Details Date Type Department Care Team ([facility] st Contact Info) Description 08/13/2024 Refill [facility] MEDICINE 230 [place] [address] Ernie Noriega MD [address] [place] [address] Seasonal allergies Social History Tobacco Use Types [...] Office Visit [facility] MEDICINE [address] [place] [address] Ernie Noriega MD [address] [place] [address] documented as of this encounter Visit Diagnoses Diagnosis Seasonal allergies Allergic rhinitis, cause unspecified documented in this encounter Additional Health Concerns Assessment Noted Time PHQ-9 Depression Total Score: 2 01/21/20 24 1:25 PM EDT documented as of this encounter Care Teams Dehydrogenation Supervisor Relationship Specialty Start Date End Date Ernie Noriega MD [address] [place] [address] PCP - General Internal Medicine 08/25/19 documented as of this encounter
--- OUTSIDE RECORDS SUMMARY | 2024-12-21 11:29 | XMS_ITS | Clinical Summary ---
Author Organization [facility] Address [address] [place] [address] Care Team Providers Care Labeling Strategist Name Role Phone Ernie Merritt Primary Care [...] propionate (FLONASE) 50 mcg/actuation nasal spray [employer] [place](s) Both Nares Twice Daily 3 Active tamsulosin [...] 12/14/2024 9:00 AM EST Office Visit [facility] [address] [place] [address] Christopher Peres MD Chronic bilateral low back pain with bilateral sciatica (Primary Dx); H/O cervical spine surgery 12/13/2024 Telephone [facility] [address] [place] [address] Christopher Peres MD 12/08/2024 Telephone [facility] [address] [place] [address] Christopher Peres MD 11/01/2024 Orders Only [facility] - External Imaging [address] [place] [address] Radiology, External from Last 3 Months Social [...] Info) Description 03/14/2025 3:00 PM EDT Follow-Up [facility] [address] [place] [address] Christopher Peres MD [address] [place], [place] [phone] Health Maintenance Due Date Last Done Comments [...] complete this topic Procedures * Due to [place] [employer] law, this organization might not be sharing [...] Last 3 Months Results * Due to [place] [employer] law, this organization might not be sharing [...] obtain the completed interpretation. ? Workstation ID: [id number] Narrative 12/14/2024 5:30 PM EST COMPARISON: There are no prior studies available for comparison at this time. Resulting Agency Comment [id number] Procedure Note Stone Reid MD - 12/14/2024 [...] possible to obtain thecompleted interpretation. Workstation ID: [id number] us Christopher Peres MD IMG XR PROCEDURES [...] obtain the completed interpretation. ? Workstation ID: [id number] Narrative 12/14/2024 5:30 PM EST COMPARISON: There are no prior studies available for comparison at this time. Resulting Agency Comment [id number] Procedure Note Stone Reid MD - 12/14/2024 [...] possible to obtain thecompleted interpretation. Workstation ID: [id number] us Christopher Peres MD IMG XR PROCEDURES Final Res ult * MRI Thoracic and Lumbar Spine, Outside Result (11/01/2024) Anatomical Region Laterality Modality Other 11/01/2024 us Onbase Scan Carol AMB EXTERNAL RESULT PROCEDURE S Final Result from Last 3 Months [facility] Care Teams Labeling Strategist Relationship Specialty Start Date End Date Ernie Merritt [address] [place] [address] PCP - General Internal Medicine 11/29/24
--- OUTSIDE RECORDS SUMMARY | 2024-12-21 11:29 | XMS_ITS | Encounter Summary ---
Author Organization [facility] Address [address] [place] [address] Care Team Providers Care Interface Developer Name Role Phone Ernie Merritt Primary Care Provider + Reason for Referral * MRI/CAT/PET Scan (Routine) - Authorized Specialty Diagnoses / Procedures Referred By Contac t Referred To Contact Diagnoses H/O cervical spine surgery Procedures MRI Cervical Spine WO Contrast Christopher Peres MD [address] [place] [address] Phone: tel: fax: Referral ID Status Reason Start Date Expiration Date V isits Requested Visits Authorized [id number] Authorized 12/14/2024 06/15/2026 1 1 * MRI/CAT/PET Scan (Routine) - Pending Review Specialty Diagnoses / Procedures Referred By Contac t Referred To Contact Radiology Diagnoses Chronic bilateral low back pain with bilateral sciatica Procedures CT Lumbar Spine WO Contrast Christopher Peres MD [address] [place] [address] Phone: tel: fax: Referral ID Status Reason Start Date Expiration Date V isits Requested Visits Authorized [id number] Pending Review 12/14/2024 06/15/2026 1 1 * MRI/CAT/PET Scan (Routine) - Pending Review Specialty Diagnoses / Procedures Referred By Contac t Referred To Contact Radiology Diagnoses Chronic bilateral low back pain with bilateral sciatica Procedures CT Thoracic Spine WO Contrast Christopher Peres MD [address] [place] [address] Phone: tel: fax: Referral ID Status Reason Start Date Expiration Date V isits Requested Visits Authorized [id number] Pending Review 12/14/2024 06/15/2026 1 1 * Physical Therapy (Routine) - Pending Review Specialty Diagnoses / Procedures Referred By Contac t Referred To Contact Physical Therapy Diagnoses Chronic bilateral low back pain with bilateral sciatica Christopher Peres MD [address] [place] [address] Phone: tel: fax: Referral ID Status Reason Start Date Expiration Date Visits Requested Visits Authorized [id number] Pending Review Specialty Services Required 12/14/2024 06/15/2026 [...] on the Thoracic MRI, Imaging reviewed with [facility] colleagues: There is a large arachnoid cyst extending most of the mid to lower Thoracic spine not reported by the Radiologist. It does compress the cord. the area in question lower down at T11, ? disc herniation. There are no cord signal changes. Anna Navas [address] [place] [address] Phone: tel: Neema Bhagat MD [address] [place] [address] Phone: tel: fax: Referral ID Status Reason Start Date Expiration Date V isits Requested Visits Authorized [id number] Pending Review 11/29/2024 05/31/2026 6 6 Encounter Details Date Type Department Care Team (Latest Contact Info) Description 12/14/2024 9:00 AM EST Office Visit [facility] [address] [place], [place] [phone] Christopher Peres MD [address] [place] [address] Chronic bilateral low back pain with bilateral [...] Info) Description 03/14/2025 3:00 PM EDT Follow-Up [facility] [address] [place] [address] Christopher Peres MD [address] [place] [address] Scheduled Orders Name Type Priority Associated Diagnoses [...] of this encounter Results * Due to [place] state law, this organization might not be [...] obtain the completed interpretation. ? Workstation ID: [id number] Narrative 12/14/2024 5:30 PM EST COMPARISON: There are no prior studies available for comparison at this time. Resulting Agency Comment [id number] Procedure Note Stone Reid MD - 12/14/2024 [...] possible to obtain thecompleted interpretation. Workstation ID: [id number] us Christopher Peres MD IMG XR PROCEDURES Final Res ult documented in this encounter Visit Diagnoses Diagnosis Chronic bilateral low back pain with bilateral sciatica- Primary H/O cervical spine surgery documented in this encounter Care Teams Interface Developer Relationship Specialty Start Date End Date Ernie Merritt [address] [place] [address] PCP - General Internal Medicine 11/29/24 documented as of this encounter
--- OUTSIDE RECORDS SUMMARY | 2024-12-21 11:29 | XMS_ITS | Encounter Summary ---
Author Organization [employer] Address [address] [place] [address] 7t [place] [address] Care Team Providers Care Elevator Runner Name Role Phone Ernie Noriega MD Primary Care Provide r Reason for Visit * Reason Onset Date Comments Med Refill 11/04/2023 Encounter Details Date Type Department Care Team ([facility] st Contact Info) Description 11/04/2023 Refill [facility] CL[facility]IC [address] [place] [address] Ernie Noriega MD [address] [place] [address] Pain Social History Tobacco Use Types Packs/Day [...] Description 01/12/2025 3:00 PM EDT Office Visit [facility] MEDICINE [address] [place] [address] Ernie Noriega MD [address] [place] [address] documented as of this encounter Visit Diagnoses Diagnosis Pain Generalized pain documented in this encounter Additional Health Concerns Assessment Noted Time PHQ-9 Depression Total Score: 0 12/02/19 23 2:38 PM EST documented as of this encounter Care Teams Elevator Runner Relationship Specialty Start Date End Date Ernie Noriega MD [address] [place] [address] PCP - General Internal Medicine 08/25/19 documented as of this encounter
--- OUTSIDE RECORDS SUMMARY | 2024-12-21 11:29 | XMS_ITS | Encounter Summary ---
Author Organization [employer] Address [address] [place] [address] 7t [place] [address] Care Team Providers Care Tank Car Repairer Name Role Phone Ernie Noriega MD Primary Care Provide r Reason for Visit * Reason Comments Med Refill Encounter Details Date Type Department Care Team ([facility] st Contact Info) Description 08/26/2023 Refill [facility] CL[facility]IC [address] [place] [address] Perlita Woody MD [address] [place] [address] Seasonal allergies Social History Tobacco Use Types [...] 01/12/2025 3:00 PM EDT Office Visit [facility] MEDICINE [address] [place] [address] Ernie Noriega MD [address] [place] [address] documented as of this encounter Visit Diagnoses Diagnosis Seasonal allergies Allergic rhinitis, cause unspecified documented in this encounter Additional Health Concerns Assessment Noted Time PHQ-9 Depression Total Score: 0 12/02/19 23 2:38 PM EST documented as of this encounter Care Teams Tank Car Repairer Relationship Specialty Start Date End Date Ernie Noriega MD [address] [place] [address] PCP - General Internal Medicine 08/25/19 documented as of this encounter
--- OUTSIDE RECORDS SUMMARY | 2024-12-21 11:29 | XMS_ITS | Encounter Summary ---
Author Organization [employer] Address [address] [place] [address] 7t [place] [address] Care Team Providers Care Diathermy Equipment Repairer Name Role Phone Ernie Noriega MD Primary Care Provide r Reason for Visit * Reason Onset Date Comments Med Refill 10/17/2024 Encounter Details Date Type Department Care Team ([facility] st Contact Info) Description 10/17/2024 Refill [facility] MEDICINE [address] [place] [address] Ernie Noriega MD [address] [place] [address] Primary osteoarthritis of knee, unspecified laterality Social [...] Description 01/12/2025 3:00 PM EDT Office Visit [facility] MEDICINE [address] [place] [address] Ernie Noriega MD [address] [place] [address] documented as of this encounter Visit Diagnoses Diagnosis Primary osteoarthritis of knee, unspecified laterality documented in this encounter Additional Health Concerns Assessment Noted Time PHQ-9 Depression Total Score: 2 01/21/20 24 1:25 PM EDT documented as of this encounter Care Teams Diathermy Equipment Repairer Relationship Specialty Start Date End Date Ernie Noriega MD [address] [place] [address] PCP - General Internal Medicine 08/25/19 documented as of this encounter
--- OUTSIDE RECORDS SUMMARY | 2024-12-21 11:29 | XMS_ITS | Encounter Summary ---
Author Organization [employer] Address [address] [place] [address] 7t [place] [address] Care Team Providers Care Patient Appointment Coordinator Name Role Phone Ernie Noriega MD Primary Care Provide r Reason for Visit * Reason Comments Med Refill Encounter Details Date Type Department Care Team ([facility] st Contact Info) Description 10/16/[address] [facility]BI[facility]ACCINE CLINIC [address] [place], [place] [phone] Ernie Noriega MD [address] [place] [address] Pain Social History Tobacco Use Types Packs/Day [...] 01/12/2025 3:00 PM EDT Office Visit [facility] MEDICINE [address] [place] [address] Ernie Noriega MD [address] [place] [address] documented as of this encounter Visit Diagnoses Diagnosis Pain Generalized pain documented in this encounter Additional Health Concerns Assessment Noted Time PHQ-9 Depression Total Score: 0 12/02/19 23 2:38 PM EST documented as of this encounter Care Teams Patient Appointment Coordinator Relationship Specialty Start Date End Date Ernie Noriega MD [address] [place] [address] PCP - General Internal Medicine 08/25/19 documented as of this encounter
--- OUTSIDE RECORDS SUMMARY | 2024-12-21 11:29 | XMS_ITS | Encounter Summary ---
Author Organization [employer] Address [address] [place] [address] 7t [place] [address] Care Team Providers Care Fuel Verification Technician Name Role Phone Ernie Noriega MD Primary Care Provide r Reason for Visit * Reason Comments Med Refill Encounter Details Date Type Department Care Team ([facility] st Contact Info) Description 07/28/2024 Refill [facility] [address] [place], [place] [phone] Ernie Noriega MD 230 [place] [address] Primary osteoarthritis of knee, unspecified laterality Social [...] Description 01/12/2025 3:00 PM EDT Office Visit [facility] [address] [place] [address] Ernie Noriega MD [address] [place] [address] documented as of this encounter Visit Diagnoses Diagnosis Primary osteoarthritis of knee, unspecified laterality documented in this encounter Additional Health Concerns Assessment Noted Time PHQ-9 Depression Total Score: 2 01/21/20 24 1:25 PM EDT documented as of this encounter Care Teams Fuel Verification Technician Relationship Specialty Start Date End Date Ernie Noriega MD [address] [place] [address] PCP - General Internal Medicine 08/25/19 documented as of this encounter
--- OUTSIDE RECORDS SUMMARY | 2024-12-21 11:29 | XMS_ITS | Encounter Summary ---
Author Organization [email or web address] [facility] Address [address] [place] [address] 7 [place] [address] Care Team Providers Care Retail Brand Ambassador Name Role Phone Ernie Noriega MD Primary Care Provide r Encounter Details Date Type Department Care Team (Late st Contact Info) Description 02/18/[address] [facility] MED[facility]INE [address] [place] [address] [phone] Ernie Noriega MD [address] [place] [address] [phone] Social History Tobacco Use Types Packs/Day Years [...] Office Visit [facility] [address] [place] [address] [phone] Ernie Noriega MD [address] [place] [address] [phone] documented as of this encounter Procedures Procedure [...] documented as of this encounter Care Teams Retail Brand Ambassador Relationship Specialty Start Date End Date Ernie Noriega MD [address] [place] [address] PCP - General Internal Medicine 08/25/19 documented as of this encounter
--- OUTSIDE RECORDS SUMMARY | 2024-12-21 11:29 | XMS_ITS | Encounter Summary ---
Author Organization [employer] Address [address] [place] [address] 7t [place] [address] Care Team Providers Care Invas Tech Name Role Phone Ernie Noriega MD Primary Care Provide r Reason for Visit * Reason Onset Date Comments Med Refill 10/27/2023 Encounter Details Date Type Department Care Team ([facility] st Contact Info) Description 10/27/2023 Refill [facility] 230 [place] [address] Ernie Noriega MD 230 [place] [address] Mild persistent asthma without complication; Pain; Chronic [...] EDT Office Visit [facility] [address] [place] [address] Ernie Noriega MD [address] [place] [address] documented as of this encounter Visit Diagnoses Diagnosis Mild persistent asthma without complication Pain Generalized pain Chronic midline low back pain without sciatica Cervical radiculopathy Brachial neuritis or radiculitis nos documented in this encounter Additional Health Concerns Assessment Noted Time PHQ-9 Depression Total Score: 0 12/02/19 23 2:38 PM EST documented as of this encounter Care Teams Invas Tech Relationship Specialty Start Date End Date Ernie Noriega MD [address] [place] [address] PCP - General Internal Medicine 08/25/19 documented as of this encounter
--- OUTSIDE RECORDS SUMMARY | 2024-12-21 11:29 | XMS_ITS | Encounter Summary ---
Author Organization [employer] Address [address] [place] [address] 7t [place] [address] Care Team Providers Care Network Security Officer Name Role Phone Ernie Noriega MD Primary Care Provide r Reason for Visit * Reason Onset Date Comments Med Refill 10/27/2023 Encounter Details Date Type Department Care Team ([facility] st Contact Info) Description 10/27/2023 Refill [facility] 230 [place] [address] Ernie Noriega MD 230 [place] [address] Seasonal allergies; Pain Social History Tobacco Use [...] 3:00 PM EDT Office Visit [facility] MEDICINE 230 [place] [address] Ernie Noriega MD 230 [place] [address] documented as of this encounter Visit Diagnoses Diagnosis Seasonal allergies Allergic rhinitis, cause unspecified Pain Generalized pain documented in this encounter Additional Health Concerns Assessment Noted Time PHQ-9 Depression Total Score: 0 12/02/19 23 2:38 PM EST documented as of this encounter Care Teams Network Security Officer Relationship Specialty Start Date End Date Ernie Noriega MD 230 [place] [address] PCP - General Internal Medicine 08/25/19 documented as of this encounter
--- OUTSIDE RECORDS SUMMARY | 2024-12-21 11:29 | XMS_ITS | Encounter Summary ---
Author Organization [facility] Address [address] [place] [address] 7t [place] [address] Care Team Providers Care Director Of Distribution Name Role Phone Ernie Noriega MD Primary Care Provide r Encounter Details Date Type Department Care Team (Late st Contact Info) Description 04/13/2023 Orders Only [facility] MED[facility] [address] [place] [address] [phone] Sugar Mitchell MD [address] [place] [address] [phone] Neuropathic pain of right lower extremity (Primary [...] EDT Office Visit [facility] [address] [place] [address] Ernie Noriega MD 230 [place], [place] [phone] documented as of this encounter Procedures Procedure Name Priority Date/Time Associated Diagnosis Comments BASIC METABOLIC PANEL Routine 05/13/2023 8:40 AM EDT Neuropathic pain of right lower extremity documented in this encounter Results * (ABNORMAL) Basic Metabolic Panel (05/13/2023 8:40 AM EDT) Sodium 141 135 - 145 mmol/L [facility] Potassium 3.5 3.3 - 5.1 mmol/L [facility] Chloride 103 96 - 108 mmol/L [facility] Carbon Dioxide 23 22 - 29 mmol/L [facility] Anion Gap 19 12 - 20 [facility] Urea Nitrogen (BUN) 15 9 - 16 mg/dL [facility] Creatinine, Serum 0.78 0.5 - 1.4 mg/dL [facility] Estimated Glomerular Filt Rate >60 [facility] Comment:NOTE: For -Am erican individuals, multiply the result by 1.210.Chronic Kidney Disease: Estimated GFR < 60 mL/min/1.80b8Zbmuvi Kidney Disease: Estimated GFR < 15 mL/min/1.73m2 Glucose 151(H) 60 - 115 mg/dL [facility] Calcium 9.3 8.4 - 10.2 mg/dL [facility] Blood Venous blood specimen / Unknown 05/13/2023 8:40 AM EDT 05/13/2023 11:14 AM EDT us Sugar Mitchell MD LAB BLOOD ORDERABLES Final Resul t [facility] [address] [place] [address] [phone] documented in this encounter Visit Diagnoses Diagnosis Neuropathic pain of right lower extremity- Primary documented in this encounter Additional Health Concerns Assessment Noted Time PHQ-9 Depression Total Score: 0 12/02/19 23 2:38 PM EST documented as of this encounter Care Teams Director Of Distribution Relationship Specialty Start Date End Date Ernie Noriega MD 230 [place] [address] PCP - General Internal Medicine 08/25/19 documented as of this encounter
--- OUTSIDE RECORDS SUMMARY | 2024-12-21 11:29 | XMS_ITS | Encounter Summary ---
Author Organization [email or web address] [facility] Address [address] [place] [address] 7t [place] [address] Care Team Providers Care Bmw Sales Consultant Name Role Phone Ernie Noriega MD Primary Care Provide r Encounter Details Date Type Department Care Team (Latest Contact Info) Description 03/07/2021 Abstract [facility] CON[facility]S Dental, Provider, DDS Social History [...] Description 01/12/2025 3:00 PM EDT Office Visit [facility] [address] [place] [address] Ernie Noriega MD [address] [place] [address] documented as of this encounter Visit Diagnoses Not on filedocumented in this encounter Care Teams Bmw Sales Consultant Relationship Specialty Start Date End Date Ernie Noriega MD [address] [place] [address] PCP - General Internal Medicine 08/25/19 documented as of this encounter
--- OUTSIDE RECORDS SUMMARY | 2024-12-21 11:30 | XMS_ITS | Encounter Summary ---
Author Organization [facility] Address [address] [place] [address] Care Team Providers Care Embedded Software Manager Name Role Phone Ernie Merritt Primary Care Provider + Encounter Details Date Type Department Care Team (Late st Contact Info) Description 09/16/2024 Orders Only [facility] - External Imaging [address] [place] [address] Radiology, External [address] [place] [address] Social History Tobacco Use Types Packs/Day Years [...] Info) Description 03/14/2025 3:00 PM EDT Follow-Up [facility] [address] [place], [place] [phone] Christopher Peres MD 55 [place], [place] [phone] Pending Results Name Type Priority Associated Diagnoses Date /Time MRI Transfer of Outside Films L-Spine Imaging [place] Routine 12/08/2024 11:00 AM EST Scheduled Orders Name Type Priority Associated Diagnoses Orde r Schedule MRI Transfer of Outside Films L-Spine Imaging [place] Routine 1 Occurrences starting 12/08/2024 until 01/05/2026 documented as of this encounter Visit Diagnoses Not on filedocumented in this encounter Care Teams Embedded Software Manager Relationship Specialty Start Date End Date Ernie Merritt 230 [place] [address] PCP - General Internal Medicine 11/29/24 documented as of this encounter
--- OUTSIDE RECORDS SUMMARY | 2024-12-21 11:30 | XMS_ITS | Encounter Summary ---
Author Organization [facility] Address [address] [place] [address] Care Team Providers Care Food Processing Scientist Name Role Phone Ernie Merritt MD Primary Care Provi bobo Reason for Visit * Reason Comments Pre-op Visit TF release DOS: 12/07 Encounter Details Date Type Department Care Team (Late st Contact Info) Description 11/22/2024 10:45 AM EST Consult Orthopedic Surgery - [place] [address] [facility] [address] [place] [address] Trista David MD [address] [facility] [address] [place] [phone] Acquired trigger finger of left index finger [...] Primary documented in this encounter Care Teams Food Processing Scientist Relationship Specialty Start Date End Date Ernie Merritt MD [address] [place] [address] [place] [phone] PCP - General Internal Medicine 05/20/21 documented as of this encounter
--- OUTSIDE RECORDS SUMMARY | 2024-12-21 11:30 | XMS_ITS | Encounter Summary ---
Author Organization [facility] Address [address] [place] [address] Care Team Providers Care Staff Sonographer Name Role Phone Ernie Merritt MD Primary Care Provi bobo Reason for Visit * Auth/Cert (Routine) Specialty Diagnoses / Procedures Referred By Contkishore t Referred To Contact Diagnoses Trigger finger, unspecified finger TRIGGER FINGER LEFT INDEX FINGER Procedures DC INCISION TENDON SHEATH LEFT A1 JOAO/TRIGGER FINGER RELEASE INDEX FINGER Trista David MD [address] [phone] Phone: tel: fax: [facility] OR [address] [place] [address] Phone: tel: Referral ID Status Reason Start Date Expiration Date Visits Re quested Visits Authorized [id number] 1 1 Encounter Details Date Type Department Care Team (Late st Contact Info) Description 12/07/2024 12:30 PM EST Anesthesia Event [facility] Main OR [address] [place] [address] Irvin Fields MD [address] [place] [address] Agnieszka Villatoro CRNA [address] [place] [phone] Anesthesia Record Procedure Summary Procedure Name Responsible [...] Procedure Summary Date: 12/07/24 Room / Location: [address] OR Anesthesia Start: 1230 Anesthesia Stop: [...] notable events for this encounter. * Irvin Feilds MD - 12/07/2024 10:10 AM EST Relevant [...] mg documented in this encounter Care Teams Staff Sonographer Relationship Specialty Start Date End Date Ernie Merritt MD [address] [place] [address] [place] [address] PCP - General Internal Medicine 05/20/21 documented as of this encounter
--- OUTSIDE RECORDS SUMMARY | 2024-12-21 11:30 | XMS_ITS | Encounter Summary ---
Author Organization [employer] [facility] Address [address] 7t [place] [address] Care Team Providers Care Sole Sewer Hand Name Role Phone Ernie Noriega MD Primary Care Provide r Reason for Visit * Reason Onset Date Comments Med Refill Referral 12/10/2022 Patient walked i n requesting for referral to a neurologist. It is difficult for her to walk and do her [place] activities. Pt has had [facility] go to her house for therapy, but it has not made any improvements. Encounter Details Date Type Department Care Team (Late st Contact Info) Description 12/10/[address] [facility] MEDICINE [address] [place], [place] [phone] Ernie Noriega MD 230 [place], [place] [phone] Pain Social History Tobacco Use Types Packs/Day [...] PM EDT Office Visit [facility] MEDICINE [address] [place] [address] Ernie Noriega MD [address] [place] [address] documented as of this encounter Visit Diagnoses Diagnosis Pain Generalized pain documented in this encounter Additional Health Concerns Assessment Noted Time PHQ-9 Depression Total Score: 0 12/02/19 23 2:38 PM EST documented as of this encounter Care Teams Sole Sewer Hand Relationship Specialty Start Date End Date Ernie Noriega MD [address] [place] [address] PCP - General Internal Medicine 08/25/19 documented as of this encounter
--- OUTSIDE RECORDS SUMMARY | 2024-12-21 11:30 | XMS_ITS | Encounter Summary ---
Author Organization [facility] Address [address] [place] [address] Care Team Providers Care Tub Mender Name Role Phone Ernie Merritt Primary Care Provider + Encounter Details Date Type Department Care Team (Late st Contact Info) Description 11/01/2024 Orders Only [facility] - External Imaging [address] [place] [address] Radiology, External [address] [place] [address] Social History Tobacco Use Types Packs/Day Years [...] Info) Description 03/14/2025 3:00 PM EDT Follow-Up [facility] [address] [place], [place] [phone] Christopher Peres MD 55 [place], [place] [phone] Pending Results Name Type Priority Associated Diagnoses [...] on filedocumented in this encounter Care Teams Tub Mender Relationship Specialty Start Date End Date Ernie Merritt [address] [place] [address] PCP - General Internal Medicine 11/29/24 documented as of this encounter
--- OUTSIDE RECORDS SUMMARY | 2024-12-21 11:30 | XMS_ITS | Encounter Summary ---
Author Organization [employer] Address [address] [place] [address] 7 [place] [address] Care Team Providers Care Buckle Stringer Name Role Phone Ernie Noriega MD Primary Care Provide r Reason for Visit * Reason Onset Date Comments Medication Question 10/03/2022 returning call 10/03/2022 Encounter Details Date Type Department Care Team ([facility] st Contact Info) Description 10/03/2022 Telephone [facility] MEDICINE [address] [place] [address] Ernie Noriega MD [address] [place] [address] Medication Question; returning call Social History Tobacco [...] pt returning call Please contact pt at [phone] * Telephone Encounter - Peg Scott RN - 10/10/2022 11:17 AM EST T/C placed to pt x2AM re below message. No answer, left v/m. Will retask to [facility] for third attempt. * Telephone Encounter - Peg Scott RN - 10/08/2022 3:32 PM EST Incoming T/C from Sylvia CAMARILLO from [facility]. She states spoke with AUDIOVISUAL PRODUCTION SPECIALIST who saw pt 09/24. It is not in the OV note (which is located in Epic under Media tab) but that pt reported pain during appt and AUDIOVISUAL PRODUCTION SPECIALIST advised pt speak to her PCP and [...] next month with PCP. Will send to [facility] to attempt second call. [place] sending to PCP as FYI. * Telephone Encounter - Peg Scott RN - 10/08/2022 10:34 AM EST Reviewed most recent note from [facility]. No [...] calling to inform was told by her [facility] Physicians DR to request [...] Office Visit [facility] 230 [facility] [place] [address] Ernie Noriega MD [address] [place] [address] documented as of this encounter Visit Diagnoses Not on filedocumented in this encounter Care Teams Buckle Stringer Relationship Specialty Start Date End Date Ernie Noriega MD [address] [facility] [place] [address] PCP - General Internal Medicine 08/25/19 documented as of this encounter
--- OUTSIDE RECORDS SUMMARY | 2024-12-21 11:30 | XMS_ITS | Encounter Summary ---
Author Organization [employer] Address [address] [place] [address] 7t [place] [address] Care Team Providers Care Novelty Candy Maker Name Role Phone Ernie Noriega MD Primary Care Provide r Reason for Visit * Reason Comments Med Refill Encounter Details Date Type Department Care Team ([facility] st Contact Info) Description 12/25/2023 Refill [facility] MEDICINE [address] [place], [place] [phone] Ernie Noriega MD 230 [place], [place] [phone] Pain; Primary hypertension; Seasonal allergies Social History [...] 01/12/2025 3:00 PM EDT Office Visit [facility] MEDICINE [address] [place] [address] Ernie Noriega MD [address] [place] [address] documented as of this encounter Visit Diagnoses Diagnosis Pain Generalized pain Primary hypertension Unspecified essential hypertension Seasonal allergies Allergic rhinitis, cause unspecified documented in this encounter Additional Health Concerns Assessment Noted Time PHQ-9 Depression Total Score: 0 12/02/19 23 2:38 PM EST documented as of this encounter Care Teams Novelty Candy Maker Relationship Specialty Start Date End Date Ernie Noriega MD [address] [place] [address] PCP - General Internal Medicine 08/25/19 documented as of this encounter
--- OUTSIDE RECORDS SUMMARY | 2024-12-21 11:30 | XMS_ITS | Encounter Summary ---
Author Organization [employer] Address [address] [place] [address] 7t [place] [address] Care Team Providers Care C Architect Name Role Phone Ernie Noriega MD Primary Care Provide r Reason for Visit * Reason Onset Date Comments Med Refill 10/12/2024 Encounter Details Date Type Department Care Team ([facility] st Contact Info) Description 10/12/2024 Refill [facility] MEDICINE [address] [place] [address] Ernie Noriega MD [address] [place] [address] Primary osteoarthritis of knee, unspecified laterality Social [...] Visit [facility] MEDICINE [address] [place] [address] Ernie Noriega MD [address] [place] [address] documented as of this encounter Visit Diagnoses Diagnosis Primary osteoarthritis of knee, unspecified laterality documented in this encounter Additional Health Concerns Assessment Noted Time PHQ-9 Depression Total Score: 2 01/21/20 24 1:25 PM EDT documented as of this encounter Care Teams C Architect Relationship Specialty Start Date End Date Ernie Noriega MD [address] [place] [address] PCP - General Internal Medicine 08/25/19 documented as of this encounter
--- OUTSIDE RECORDS SUMMARY | 2024-12-21 11:30 | XMS_ITS | Encounter Summary ---
Author Organization [employer] Address [address] [place] [address] 7t [place] [address] Care Team Providers Care Manager Exchange Name Role Phone Ernie Noriega MD Primary Care Provide r Reason for Visit * Reason Comments Med Refill Encounter Details Date Type Department Care Team ([facility] st Contact Info) Description 10/11/2023 Refill [facility] MEDICINE 230 [place] [address] Ernie Noriega MD [address] [place] [address] Social History Tobacco Use Types Packs/Day Years [...] EDT Office Visit [facility] MEDICINE [address] [place] [address] Ernie Noriega MD [address] [place] [address] documented as of this encounter Visit Diagnoses Not on filedocumented in this encounter Additional Health Concerns Assessment Noted Time PHQ-9 Depression Total Score: 0 12/02/19 23 2:38 PM EST documented as of this encounter Care Teams Manager Exchange Relationship Specialty Start Date End Date Ernie Noriega MD [address] [place] [address] PCP - General Internal Medicine 08/25/19 documented as of this encounter
--- OUTSIDE RECORDS SUMMARY | 2024-12-21 11:30 | XMS_ITS | Encounter Summary ---
Author Organization [employer] Address [address] [place] [address] 7t [place] [address] Care Team Providers Care Family Program Specialist Name Role Phone Ernie Noriega MD Primary Care Provide r Reason for Visit * Reason Onset Date Comments Med Refill 09/28/2024 Encounter Details Date Type Department Care Team ([facility] Contact Info) Description 09/28/2024 Telephone [facility] MEDICINE [address] [place] [address] Ernie Noriega MD [address] [place] [address] Med Refill Social History Tobacco Use Types [...] 300 MG capsule To be sent to: [facility]/pharmacy [address] [place] [address] documented in this encounter Plan of Treatment Upcoming Encounters Date Type Department Care Team (Late st Contact Info) Description 01/12/2025 3:00 PM EDT Office Visit [facility] MED[facility]INE [address] [place] [address] Ernie Noriega MD 230 [place], [place] [phone] documented as of this encounter Visit Diagnoses Not on filedocumented in this encounter Additional Health Concerns Assessment Noted Time PHQ-9 Depression Total Score: 2 01/21/20 24 1:25 PM EDT documented as of this encounter Care Teams Family Program Specialist Relationship Specialty Start Date End Date Ernie Noriega MD [address] [place] [address] PCP - General Internal Medicine 08/25/19 documented as of this encounter
--- OUTSIDE RECORDS SUMMARY | 2024-12-21 11:30 | XMS_ITS | Encounter Summary ---
Author Organization [employer] Address [address] [place] [address] 7t [place] [address] Care Team Providers Care Invoice Control Clerk Name Role Phone Ernie Noriega MD Primary Care Provide r Reason for Visit * Reason Onset Date Comments Med Refill 09/28/2024 Encounter Details Date Type Department Care Team ([facility] st Contact Info) Description 09/28/2024 Refill [facility] MEDICINE [address] [place] [address] Ernie Noriega MD [address] [place] [address] Primary osteoarthritis of knee, unspecified laterality Social [...] 01/12/2025 3:00 PM EDT Office Visit [facility] MEDICINE [address] [place] [address] Ernie Noriega MD [address] [place] [address] documented as of this encounter Visit Diagnoses Diagnosis Primary osteoarthritis of knee, unspecified laterality documented in this encounter Additional Health Concerns Assessment Noted Time PHQ-9 Depression Total Score: 2 01/21/20 24 1:25 PM EDT documented as of this encounter Care Teams Invoice Control Clerk Relationship Specialty Start Date End Date Ernie Noriega MD [address] [place] [address] PCP - General Internal Medicine 08/25/19 documented as of this encounter
--- OUTSIDE RECORDS SUMMARY | 2024-12-21 11:30 | XMS_ITS | Encounter Summary ---
Author Organization [facility] Address [address] [place] [address] Care Team Providers Care Double Backer Name Role Phone Ernie Merritt Primary Care Provider + Encounter Details Date Type Department Care Team (Late st Contact Info) Description 12/08/2024 Telephone [facility] [address] [place] [address] Christopher Peres MD [address] [place], [place] [phone] Social History Tobacco Use Types Packs/Day Years [...] EST Patient called back and we got ferry terminal supervisor Rodger ID [id number] on the line. We rescheduled appointment with Dr. Peres for 12/15 at 8:00 am. Patient is aware of date, time and location and ok with these changes. * Telephone Encounter - Allyn Macario - 12/08/2024 3:27 PM EST Called patient using ferry terminal supervisor Perlita ID [id number] and left voicemail with both patient and asking for a call back to reschedule Thursday's appointment with another provider. Patient should be scheduled with Dr. Peres. documented in this encounter Plan of Treatment Upcoming Encounters Date Type Department Care Team (Late st Contact Info) Description 03/14/2025 3:00 PM EDT Follow-Up [facility] [address] [place], [place] [phone] Christopher Peres MD [address] [place], [place] [phone] documented as of this encounter Visit Diagnoses Not on filedocumented in this encounter Care Teams Double Backer Relationship Specialty Start Date End Date Ernie Merritt [address] [place] [address] PCP - General Internal Medicine 11/29/24 documented as of this encounter
--- OUTSIDE RECORDS SUMMARY | 2024-12-21 11:30 | XMS_ITS | Encounter Summary ---
Author Organization [facility] [employer] [facility] Address [address] [place] [address] 7t [place] [address] Care Team Providers Care Box Attacher Name Role Phone Ernie Noriega MD Primary Care Provide r Encounter Details Date Type Department Care Team ([facility] Contact Info) Description 12/09/2022 Orders Only [facility] [address] [place] [address] Suha Alexander, RN Social History Tobacco [...] Upcoming Encounters Date Type Department Care Team ([facility] Contact Info) Description 01/12/2025 3:00 PM EDT Office Visit [facility] [address] [place] [address] Ernie Noriega MD [address] [place] [address] documented as of this encounter Procedures Procedure Name Priority Date/Time Associated Diagnosis Comments BI MAMMOGRAM SCREENING TOMOSYNTHESIS BILATERAL Routine 12/23/2022 11:35 AM EDT documented in this encounter Results * BI Mammogram Screening Tomosynthesis Bilateral (12/23/2022 11:35 AM EDT) Anatomical Region Laterality Modality Breast Bilateral Mammography 12/23/2022 11:3 5 AM EDT Narrative 12/24/2022 5:15 PM EDT ? [facility] [place] ? [address] ?[place] [address] ? Mammography Report ? Signed ? Patient: Miguelina Watson ?MR#: ?? [id number] ? : 1965 ?Acct:[id number] ? Age/Sex: 57 / F ?ADM Date: 12/23/22 ? Loc: HO.MAMMO ? Attending Dr: Ernie Merritt MD ? Ordering Physician: Ernie Merritt MD ?Resu ?? lts: 1Negative ? Date of Service: 12/23/22 ?Follow Up: 1 Year From Orig ?? inal Mammogram ? Procedure(s): MM tomosynthesis screening BI ?? Accession Number(s): [id number] ? cc: Ernie Merritt MD ? EXAMINATION: [...] 1712 ? DD/ 1135 ? TD/TT: ? Tankerman: SK ? Procedure Note Tiesha, Rene - 12/24/2022 [facility] [address] [place] [address] Dr. [place], [place] T [address] Mammography Report Signed [id number] : 1965Acct:[id number] Age/Sex: 57 / FADM Date: 12/23/22 Loc: [facility] Attending Dr: Ernie Merritt MD Ordering Physician: Ernie Merritt MDResu lts: 1Negative Date of Service: 12/23/22Follow Up: 1 Year From Orig inal Mammogram Procedure(s): MM tomosynthesis screening BI Accession Number(s): [id number] cc: Ernie Merritt MD EXAMINATION: MM SCREENING [...] in OV> 12/24/22 1712 DD/ 1135 TD/TT: Tankerman: [facility] External Provider IMG BI PROCEDURES Edited Result - Final documented in this encounter Visit Diagnoses Not on filedocumented in this encounter Additional Health Concerns Assessment Noted Time PHQ-9 Depression Total Score: 0 12/02/19 23 2:38 PM EST documented as of this encounter Care Teams Box Attacher Relationship Specialty Start Date End Date Ernie Noriega MD [address] [place] [address] PCP - General Internal Medicine 08/25/19 documented as of this encounter
--- OUTSIDE RECORDS SUMMARY | 2024-12-21 11:30 | XMS_ITS | Encounter Summary ---
Author Organization [employer] Address [address] [place] [address] 7t [place] [address] Care Team Providers Care Explosion Welder Name Role Phone Ernie Noriega MD Primary Care Provide r Reason for Visit * Reason Onset Date Comments Med Refill 09/28/2024 Encounter Details Date Type Department Care Team ([facility] st Contact Info) Description 09/28/2024 Refill [facility] [address] [place] [address] Ernie Noriega MD [address] [place] [address] Chronic midline low back pain without sciatica; [...] Description 01/12/2025 3:00 PM EDT Office Visit [facility] [address] [place] [address] Ernie Noriega MD [address] [place] [address] documented as of this encounter Visit Diagnoses Diagnosis Chronic midline low back pain without sciatica Cervical radiculopathy Brachial neuritis or radiculitis nos documented in this encounter Additional Health Concerns Assessment Noted Time PHQ-9 Depression Total Score: 2 01/21/20 24 1:25 PM EDT documented as of this encounter Care Teams Explosion Welder Relationship Specialty Start Date End Date Ernie Noriega MD [address] [place] [address] PCP - General Internal Medicine 08/25/19 documented as of this encounter
--- OUTSIDE RECORDS SUMMARY | 2024-12-21 11:30 | XMS_ITS | Encounter Summary ---
Author Organization [employer] Address [address] [place] [address] 7t [place] [address] Care Team Providers Care Delivery Specialist Name Role Phone Ernie Noriega MD Primary Care Provide r Reason for Visit * Reason Onset Date Comments Med Refill 10/13/2024 Encounter Details Date Type Department Care Team ([facility] st Contact Info) Description 10/13/2024 Refill [facility] [address] [place] [address] Ernie Noriega MD [address] [place] [address] Chronic midline low back pain without sciatica [...] Office Visit [facility] [address] [place] [address] Ernie Noriega MD [address] [place] [address] documented as of this encounter Visit Diagnoses Diagnosis Chronic midline low back pain without sciatica documented in this encounter Additional Health Concerns Assessment Noted Time PHQ-9 Depression Total Score: 2 01/21/20 24 1:25 PM EDT documented as of this encounter Care Teams Delivery Specialist Relationship Specialty Start Date End Date Ernie Noriega MD [address] [place] [address] PCP - General Internal Medicine 08/25/19 documented as of this encounter
--- OUTSIDE RECORDS SUMMARY | 2024-12-21 11:30 | XMS_ITS | Encounter Summary ---
Author Organization [employer] [facility] Address [address] [place] [address] 7t [place] [address] Care Team Providers Care Spring Forger Name Role Phone Ernie Noriega MD Primary Care Provide r Encounter Details Date Type Department Care Team (Late st Contact Info) Description 10/03/2022 Orders Only [facility] [address] [place] [address] [phone] Suha Alexander, RN Social History Tobacco Use [...] Office Visit [facility] [address] [place] [address] [phone] Ernie Noriega MD [address] [place] [address] documented as of this encounter Visit Diagnoses Not on filedocumented in this encounter Care Teams Spring Forger Relationship Specialty Start Date End Date Ernie Noriega MD [address] [place] [address] PCP - General Internal Medicine 08/25/19 documented as of this encounter
--- OUTSIDE RECORDS SUMMARY | 2024-12-21 11:31 | XMS_ITS | Encounter Summary ---
Author Organization [facility] Address [address] [place] [address] Care Team Providers Care Box Spring Upholsterer Name Role Phone Ernie Merritt MD Primary Care Provi bobo Reason for Visit * Auth/Cert (Routine) Specialty Diagnoses / Procedures Referred By Bro t Referred To Contact Diagnoses Trigger finger, unspecified finger TRIGGER FINGER LEFT INDEX FINGER Procedures [place] INCISION TENDON SHEATH LEFT A1 JOAO/TRIGGER FINGER RELEASE INDEX FINGER Trista David MD [address] [address] Phone: tel: fax: [facility] OR [address] [place] [phone] Phone: tel: Referral ID Status Reason Start Date Expiration Date Visits Re quested Visits Authorized [id number] 1 1 Encounter Details Date Type Department Care Team (Late st Contact Info) Description 12/07/2024 1:30 PM EST - 12/07/2024 3:00 PM EST Surgery [facility] OR [address] [place] [address] Trista David MD [address] [address] LEFT A1 JOAO/TRIGGER FINGER RELEASE INDEX FINGER [80136 (CPT??)] Surgery Details Date/Time Status Location OR Service Patient Class Case Cl ass Case Type Trauma Case? 12/07/2024 1:30 PM Posted [facility] OR [facility] Orthopedics [facility] Outpatient Surgery F - Elective Panel 1 [...] dry dressing at all times [facility] - No driving until you can use [...] discoloration. [facility] Trista David MD [address] [place] [address] If you have any questions and or cannot keep your appointment, please contact the [facility] office at [phone] * Attachments The following attachments cannot be sent through Care Everywhere. * Sedation (Kosovan) documented in this encounter Medications at Time [...] FINGER (L) OPERATIVE NOTE Date: 12/07/2024 Location: [facility] OR Name: Miguelina Julien, : 1965, Diagnosis Pre-op Diagnosis * Trigger finger, unspecified finger [M65.30] Post-op Diagnosis * Trigger finger, unspecified finger [M65.30] Procedures LEFT A1 JOAO/TRIGGER FINGER RELEASE INDEX FINGER [address]71 - [place] INCISION TENDON SHEATH Indications: Miguelina Julien is an 59 y.o. female who is having surgery for TRIGGER FINGER LEFT INDEX FINGER. She has had multiple surgeries at other sites previously for triggering. Surgeon(s) & Agricultural Produce Sorter(s) * Trista David MD - Primary Anesthesia: Monitor Anesthesia Care and local anesthesia ASA: II Estimated Blood Loss: Minimal Procedure Details: ICD-9: 727.03 ICD-10: M65.30 (UNSPECIFIED) cpt: 59907 The patient was identified in the preoperative [...] A small self-retaining retractor was placed. My treasury assistant held the Ragnell retractors as well [...] Procedure Name Priority Date/Time Associated Diagnosis Comments [place] INCISION TENDON SHEATH 12/07/2024 12:32 PM EST [...] (New Bag - Prov ider: Agnieszka Villatoro, TIME CHECKER) sodium chloride 0.9 % flush 10 mL(Linked [...] 12/07/2024 documented in this encounter Care Teams Box Spring Upholsterer Relationship Specialty Start Date End Date Ernie Merritt MD [address] [place] [address] [place] [address] PCP - General Internal Medicine 05/20/21 documented as of this encounter
--- OUTSIDE RECORDS SUMMARY | 2024-12-21 11:31 | XMS_ITS | Encounter Summary ---
Author Organization [employer] Address [address] [place] [address] 7t [place] [address] Care Team Providers Care Workforce Specialist Name Role Phone Ernie Noriega MD Primary Care Provide r Reason for Visit * Reason Onset Date Comments verbal order 11/21/2022 Encounter Details Date Type Department Care Team (Late Contact Info) Description 11/21/[address] [facility] [address] [place] [address] Ernie Noriega MD [address] [place] [address] verbal order Social History Tobacco Use Types [...] 1:08 PM EST Tc from Baldemar from [facility] calling to inform pt started home services today . Baldemar is also requesting a verbal order for pt to start physical therapy for 2x a week for 4 weeks . Best contact # [phone]. documented in this encounter Plan of Treatment Upcoming Encounters Date Type Department Care Team (Late Contact Info) Description 01/12/2025 3:00 PM EDT Office Visit [facility] [address] [facility] [place] [address] Ernie Noriega MD [address] [place] [address] documented as of this encounter Visit Diagnoses Not on filedocumented in this encounter Care Teams Workforce Specialist Relationship Specialty Start Date End Date Ernie Noriega MD [facility] [place] [address] PCP - General Internal Medicine 08/25/19 documented as of this encounter
--- OUTSIDE RECORDS SUMMARY | 2024-12-21 11:31 | XMS_ITS | Encounter Summary ---
[facility] Address [address] [place] [address] Care Team Providers Care Recycling Tech Name Role Phone Ernie Merritt MD Primary Care Provi [facility] Reason for Referral * Orthopedic (Routine) - Pending Review Specialty Diagnoses / Procedures Referred By Contac t Referred To Contact Orthopedic Surgery / Orthopaedic Surgery Diagnoses Rotator cuff arthropathy, left Procedures L Inj/Asp: L subacromial bursa Leroy Lees MD [address] [address] Phone: tel: fax: Referral ID Status Reason Start Date Expiration Date V isits Requested Visits Authorized [id number] Pending Review 11/23/2024 11/23/2025 1 1 Reason for Visit * Reason Comments Follow-up Encounter Details Date Type Department Care Team (Late st Contact Info) Description 11/23/2024 11:00 AM EST Office Visit [facility] - [place] [address] [address] Leroy Lees MD [address] [address] Rotator cuff arthropathy, left (Primary Dx) Social [...] Procedure Name Priority Date/Time Associated Diagnosis Comments OR ARTHROCENTESIS/ASPI RATION/INJECTION MAJOR JOINT/BURSA W/O U/S GUIDANCE Routine 11/23/2024 11:00 AM EST Rotator cuff arthropathy, left documented in this encounter Results * OR ARTHROCENTESIS/ASPIRATION/INJECTION MAJOR JOINT/BURSA W/O U/S GUIDANCE (11/23/2024 [...] mg documented in this encounter Care Teams Recycling Tech Relationship Specialty Start Date End Date Ernie Merritt MD [address] [place] [address] PCP - General Internal Medicine 05/20/21 documented as of this encounter
--- OUTSIDE RECORDS SUMMARY | 2024-12-21 11:31 | XMS_ITS | Encounter Summary ---
Author Organization [facility] Address [address] [place] [address] Care Team Providers Care Resp Ther Name Role Phone Ernie Merritt MD Primary Care Provi [facility] Reason for Visit * Auth/Cert (Routine) Specialty Diagnoses / Procedures Referred By Bro t Referred To Contact Diagnoses Trigger finger, unspecified finger TRIGGER FINGER LEFT INDEX FINGER Procedures [place] INCISION TENDON SHEATH LEFT A1 JOAO/TRIGGER FINGER RELEASE INDEX FINGER Trista David MD [address] [address] Phone: tel: fax: [facility] OR [address] [place] [phone] Phone: tel: Referral ID Status Reason Start Date Expiration Date Visits Re quested Visits Authorized [id number] 1 1 Encounter Details Date Type Department Care Team (Latest Contact Info) Description 12/07/2024 11:51 AM EST - 12/07/2024 2:43 PM EST Hospital Encounter [facility] OR [address] [place] [address] Trista David MD [address] [address] Discharge Disposition: Home or Self [...] discoloration. [facility] Trista David MD [address] [place] [address] If you have any questions and or cannot keep your appointment, please contact the [facility] office at [phone] * Attachments The following attachments cannot be sent through Care Everywhere. * Sedation (German) documented in this encounter Medications at Time [...] FINGER (L) OPERATIVE NOTE Date: 12/07/2024 Location: [facility] OR Name: Miguelina Julien, : 1965, Diagnosis Pre-op Diagnosis * Trigger finger, unspecified finger [M65.30] Post-op Diagnosis * Trigger finger, unspecified finger [M65.30] Procedures LEFT A1 JOAO/TRIGGER FINGER RELEASE INDEX FINGER 78660 - [place] INCISION TENDON SHEATH Indications: Miguelina Julien is an 59 y.o. female who is having surgery for TRIGGER FINGER LEFT INDEX FINGER. She has had multiple surgeries at other sites previously for triggering. Surgeon(s) & Meat Manager(s) * Trista David MD - Primary Anesthesia: Monitor Anesthesia Care and local anesthesia ASA: II Estimated Blood Loss: Minimal Procedure Details: ICD-9: 727.03 ICD-10: M65.30 (UNSPECIFIED) cpt: 28627 The patient was identified in the preoperative [...] A small self-retaining retractor was placed. My environmental services assistant held the Ragnell retractors as well [...] Procedure Name Priority Date/Time Associated Diagnosis Comments [place] INCISION TENDON SHEATH 12/07/2024 12:32 PM EST [...] (New Bag - Prov ider: Agnieszka Villatoro, MACHINE OPERATORS) sodium chloride 0.9 % flush 10 mL(Linked [...] 12/07/2024 documented in this encounter Care Teams Resp Ther Relationship Specialty Start Date End Date Ernie Merritt MD [address] [place] [address] [place] [address] PCP - General Internal Medicine 05/20/21 documented as of this encounter
[2024-12-21 11:51] LABS: MANUAL DIFF FLAG NO
[2024-12-21 11:59] LABS: Prothrombin Time 11.4 SEC (10.9-12.4)
[2024-12-21 12:00] LABS: Basophils Absolute Auto 0.1 X10*3/uL (0.0-0.2); Basophils Percent Auto 0.6 % (0-2); Eosinophils Absolute Auto 0.1 X10*3/uL (0.0-0.4); Eosinophils Percent Auto 1.4 % (0-4); Hematocrit 37.3 % (37.0-47.0); Hemoglobin 11.6 g/dl (12.0-16.0); Imm Gran Abs Auto 0.03 X10*3/uL (0.00-0.03); Imm Gran Pct Auto 0.4 % (0.0-0.4); Lymphocytes Absolute Auto 2.9 X10*3/uL (1.2-4.9); Lymphocytes Percent Auto 35.1 % (20-40); Mean Corpuscular HGB Conc 31.1 g/dl (31.0-35.0); Mean Corpuscular Volume 90.1 fL (80.0-98.0); Mean Platelet Volume 10.2 fL (9.4-12.3); Monocytes Absolute Auto 0.6 X10*3/uL (0.1-1.2); Monocytes Percent Auto 7.3 % (2-11); Neutrophils Absolute Auto 4.5 x10*3/uL (2.0-8.3); Neutrophils Percent Auto 55.2 % (45-73); Platelet Count 312 X10*3/uL (160-400); Red Blood Count 4.14 X10*6/uL (4.20-5.50); Red Cell Distribution Width 13.6 % (11.0-16.0); White Blood Count 8.1 X10*3/uL (4.8-10.8)
[2024-12-21 12:02] LABS: Partial Thromboplastin Time 33.7 SEC (26.0-36.8)
[2024-12-21 12:34] LABS: Uric Acid 4.6 mg/dL (2.4-5.7)
[2024-12-22 09:07] LABS: Lyme Abs Screen <0.90 index
== END 2024-12-21 10:06 | disposition home or self-care (01) ==
LOC: HO.HHCL 10:05
PROVIDERS: Visit Provider Emergency Medicine
DX: M79.671 Pain in right foot (principal)
CPT/HCPCS: 36415; 84550; 85025; 85610; 85730; 86617; 86618

== ENCOUNTER 2024-12-22 14:17 | Emergency (ER) | payer MEDICAID, SELFPAY ==
[2024-12-22 15:10] VITALS: BP 132/73; PULSE 62; RESP 16; TEMP 36.3; O2SAT 97; BMI 28.5
--- NOTE | 2024-12-22 15:10 | ED.GENADULT ---
HPI - General Adult General Chief complaint: Extremity Problem Stated complaint: R foot swelling, no injury Time Seen by Provider: 12/22/24 15:18 Source: patient, family and RN notes reviewed Mode of arrival: ambulatory Limitations: no limitations History of Present Illness ED Provider: Wanda Yeung PA-C HPI narrative: This is a 59-year-old female who presents emergency department for evaluation of right foot pain x2 weeks. Patient denies any recent trauma injury. Patient states that she followed up with her primary care who ordered an x-ray, which was normal. She states that she was supposed to follow-up with orthopedics or podiatry however she is still awaiting for an appointment. Denies any fevers or chills. No new footwear. No calf pain. She has been taking gabapentin for her pain which has provided her with minimal relief No other complaints or concerns at this time. MD complaint: Foot pain Onset (ago): week(s) Relieving factors: none Exacerbating factors: movement Associated symptoms: denies other symptoms Treatments prior to arrival: none Related Data Home Medications ?Medication ?Instructions ?Recorded ?Confirmed hydrochlorothiazide 25 mg tablet 25 mg PO DAILY 12/03/21 12/09/24 montelukast 10 mg tablet 10 mg PO BEDTIME 12/03/21 12/07/24 omeprazole 20 mg capsule,delayed 20 mg PO DAILY 12/03/21 12/07/24 release zolpidem 10 mg tablet 10 mg PO BEDTIME PRN Insomnia 12/03/21 12/07/24 albuterol sulfate 2.5 mg/3 mL 2.5 mg inhalation Q6-8H PRN 12/10/21 12/07/24 (0.083 %) solution for nebulization Shortness Of Breath escitalopram oxalate 5 mg tablet 5 mg PO QAM 09/02/22 12/07/24 lidocaine 5 % topical patch 1 - 2 patch topical Q12H PRN pain 09/02/22 12/07/24 (Lidoderm) multivitamin 1 tab PO DAILY 01/20/24 12/07/24 acetaminophen 500 mg tablet 500 mg PO Q12H PRN pain 08/03/24 12/07/24 diclofenac potassium 50 mg tablet 50 mg PO BID 08/03/24 12/07/24 diphenhydramine HCl 25 mg capsule 25 - 50 mg PO BEDTIME 08/03/24 12/07/24 (Banophen) fluticasone propionate 50 2 spray intranasal BID 08/03/24 12/07/24 mcg/actuation nasal spray,suspension gabapentin 300 mg capsule 300 mg PO TID 08/03/24 12/07/24 omega 9-kit-sly-fish oil 1,000 mg 1 cap PO DAILY 08/03/24 12/09/24 (120 mg-180 mg) capsule (Fish Oil) valacyclovir 1 gram tablet 2,000 mg PO BID 08/03/24 12/07/24 Previous Rx's ?Medication ?Instructions ?Recorded walker #1 ea 01/28/24 tamsulosin 0.4 mg capsule 0.4 mg PO DAILY@1700 90 days #90 07/07/24 caps albuterol sulfate 90 mcg/actuation 2 puff inhalation Q4-6H PRN 09/19/24 aerosol inhaler shortness of breath or wheezing #8.5 grams naloxone 4 mg/actuation nasal 4 mg intranasal Q2M PRN opioid 10/20/24 spray (Narcan) overdose #2 ea oxycodone 5 mg tablet 5 mg PO Q8H PRN pain (scale score 10/20/24 7-10) 10 days #30 tabs fluticasone 500 mcg-salmeterol 50 1 ea inhalation BID #60 ea 12/01/24 mcg/dose blistr powdr for inhalation (Advair Diskus) acetaminophen 500 mg tablet 1,000 mg (2 x 500 mg) PO QID PRN 12/22/24 (Tylenol Extra Strength) pain #30 tabs ibuprofen 600 mg tablet 600 mg PO Q6H PRN pain #30 tabs 12/22/24 Allergies Allergy/AdvReac Type Severity Reaction Status Date / Time No Known Allergies Allergy Verified 12/22/24 15:14 Review of Systems Review of Systems: Yes all other systems are reviewed and are negative [facility] Past Medical History Attestation statement: The following information was validated with the patient. Medical History Right-sided ischial pain Tubular adenoma of colon Hematuria Dysuria Overweight Varicose vein of leg Chronic tension-type headache, not intractable Neuropathic pain Hyperlipidemia Carpal tunnel syndrome Cervical radiculopathy Depressive disorder Diverticulosis HTN (hypertension) Osteoarthritis Asthma Essential hypertension Low back pain Pre-diabetes Seasonal allergies GERD (gastroesophageal reflux disease) Post-COVID syndrome COPD (chronic obstructive pulmonary disease) Arthritis Anxiety Depression Hesitancy of micturition Moderate persistent asthma Surgical History History of carpal tunnel release Hx of eye surgery Hx of cataract extraction Hx of shoulder surgery History of carpal tunnel surgery of right wrist H/O colonoscopy History of total right knee replacement History of back surgery History of total left knee replacement (~06/2020) Family History Family History Mother Heart disease Sister HTN (hypertension) Sister HTN (hypertension) Diabetes Maternal Grandmother Cervical cancer Social History Social History Household Members: Spouse Housing: House Are you a primary medicare sales executive to a significant other at home: No Do you presently have visiting nurse or other home services: No Alcohol intake: never Comment: in bathroom, aware of trip hazard Patient Tobacco Use Status: Former Tobacco user Tobacco use type: Cigarette Second Hand Smoke Exposure: No Substance Use Type: Marijuana Advance Directives: Yes Advance Directives on File: Yes Advance Directives Date on File: 12/17/21 service: No Current occupational status: unemployed Current occupation: Right Handed Gender identity: Female Physical Exam ED Vital Signs: Vital Signs - 24 hr 12/22/24 15:10 12/22/24 15:41 Temperature 97.3 F 97.3 F Pulse Rate 62 62 Respiratory Rate 16 16 Blood Pressure 132/73 132/73 Pulse Oximetry 97 97 Oxygen Delivery Method Room Air Room Air BMI result Body Mass Index 28.5 General: Awake, alert, and oriented X3. No acute distress. HEENT: Normal inspection CVS: Normal heart rate and rhythm. Pulses normal. Respiratory: No respiratory distress Skin: Warm, dry, no rashes noted to exposed skin. Normal skin color. Normal skin turgor. Extremities: Right foot, dorsal aspect, there is tenderness palpation along the 2nd proximal tarsal. No erythema or warmth. No induration or fluctuance. Strong DP pulse. No open wounds Neuro: Oriented X 3. No motor deficit. No sensory deficit. Course Course Course Narrative: This is an RME: Additional HPI, ROS, PE not included below will be deferred to primary provider. RME assessment and note performed by: Wanda Yeung PA-C This is a 04-sahu-xzr-polish speaking female who presents to the ER with complaints of right foot pain for 2 weeks. seen by PCP. Plan: Medical Decision Making Medical Decision Making [facility] Narrative: This is a 59-year-old female who presents emergency department with complaints of right foot pain. On arrival, vital signs within normal limits. She was ambulatory with steady gait. Patient has tenderness palpation along the proximal 2nd metatarsal. No open wounds, erythema or warmth. No new trauma or injury. X-ray of her right foot was performed yesterday which was unremarkable. Given no new injury, I discussed with patient that patient does not need to have repeat images at this time. Given referral to orthopedist. Also encouraged to follow-up with PCP to have Podiatry set up an appointment. Given strict return precautions. Patient stable for discharge Differential Diagnosis Differential Diagnoses: The differential diagnosis associated with the presentation includes Fracture, contusion, sprain, strain, osteoarthritis Radiology Impression Discussion of test interpretation with radiology: I have reviewed the radiologist's reading. Radiologist Impression: EXAMINATION: XR FOOT 3 OR MORE VIEWS RIGHT HISTORY: atraumatic pain and swelling in dorsal surface of right foot. COMPARISON: There are no prior studies available for comparison. FINDINGS: Three views of the right foot are submitted. Osseous mineralization is normal. There is no fracture or dislocation. The joint spaces are preserved. The soft tissues are unremarkable. XR/XR foot RT min 3V IMPRESSION: Unremarkable examination of the right foot. Electronically signed by: Rodrick Williamson MD 12/21/2024 10:00 AM EDT Dictated By: Rodrick Williamson MD Discharge Plan Discharge Clinical Impression: Foot pain, right Patient Disposition: Home, Self-Care Instructions: Arthralgia (ED) Additional Instructions: You were seen in the emergency department due to right foot pain. You already have an x-ray which was unremarkable. You need to follow-up with the orthopedist, call to make an appointment. If any new or worsening symptoms occur including but not limited to worsening pain, please seek emergent care. Prescriptions: New ibuprofen 600 mg tablet 600 mg PO Q6H PRN (Reason: pain) Qty: 30 0RF acetaminophen [Tylenol Extra Strength] 500 mg tablet 1,000 mg PO QID PRN (Reason: pain) Qty: 30 0RF No Action tamsulosin 0.4 mg capsule 0.4 mg PO DAILY@1700 90 Days Qty: 90 1RF albuterol sulfate 90 mcg/actuation HFA aerosol inhaler 2 puff inhalation Q4-6H PRN (Reason: shortness of breath or wheezing) Qty: 8.5 11RF fluticasone propion-salmeterol [Advair Diskus] 500-50 mcg/dose blister with device 1 ea inhalation BID Qty: 60 6RF albuterol sulfate 2.5 mg /3 mL (0.083 %) Solution For Nebulization 2.5 mg INHALATION Q6-8H PRN (Reason: Shortness Of Breath) valacyclovir 1 gram Tablet 2,000 mg PO BID acetaminophen 500 mg tablet 500 mg PO Q12H PRN (Reason: pain) diphenhydramine HCl [Banophen] 25 mg capsule 25 - 50 mg PO BEDTIME diclofenac potassium 50 mg tablet 50 mg PO BID gabapentin 300 mg capsule 300 mg PO TID fluticasone propionate 50 mcg/actuation spray,suspension 2 spray intranasal BID omega 6-vpu-lsy-fish oil [Fish Oil] 1,000 mg (120 mg-180 mg) Capsule 1 cap PO DAILY multivitamin Tablet 1 tab PO DAILY escitalopram oxalate 5 mg tablet 5 mg PO QAM lidocaine [Lidoderm] 5 % adhesive patch,medicated 1 - 2 patch topical Q12H PRN (Reason: pain) montelukast 10 mg tablet 10 mg PO BEDTIME omeprazole 20 mg capsule,delayed release(DR/EC) 20 mg PO DAILY zolpidem 10 mg tablet 10 mg PO BEDTIME PRN (Reason: Insomnia) hydrochlorothiazide 25 mg tablet 25 mg PO DAILY oxycodone 5 mg tablet 5 mg PO Q8H PRN (Reason: pain (scale score 7-10)) 10 Days Qty: 30 0RF Rx Instructions: Partial Fill upon patient request. naloxone [Narcan] 4 mg/actuation spray,non-aerosol 4 mg intranasal Q2M PRN (Reason: opioid overdose) Qty: 2 0RF Rx Instructions: spray 1 dose into ONE nostril; alternate nostrils w each dose until help arrives [facility]JULI[facility] See [facility] Instructions .ROUTE .MEDSUPPLY Qty: 1 0RF Rx Instructions: Folding front wheeled walker Referrals: [facility] Orthopedic Surgeons [Provider Group] Interventions: ED Discharge Assessment Last Done: 12/22/24 15:41 Discharge Date/Time: 12/22/24 16:34 Print Language: [place]
[2024-12-22 15:41] VITALS: BP 132/73; PULSE 62; RESP 16; TEMP 36.3; O2SAT 97
--- OUTSIDE RECORDS SUMMARY | 2024-12-22 19:20 | XMS_ITS | Clinical Summary ---
Author Organization [address] [facility] Address [address] [place] [address] Phone Care Team Providers Care Elevator Technician Name Role Phone Ernie Merritt MD [...] AM EST Office Visit Orthopedic Surgery - [place] [address] [facility] [address] [place] [phone] Nicolasa Yu PA S/P trigger finger release (Primary Dx) 12/07/2024 1:30 PM EST - 12/07/2024 3:00 PM EST Surgery [facility] OR [address] [place] [phone] Trista David MD LEFT A1 JOAO/TRIGGER FINGER RELEASE INDEX FINGER [45262 (CPT??)] 12/07/2024 12:30 PM EST Anesthesia Event [facility] OR [address] [place] [phone] Irvin Fields MD Decandio, Laura, CRNA 12/07/2024 11:51 AM EST - 12/07/2024 2:43 PM EST Hospital Encounter [facility] OR [address] [place] [address] Trista David MD Discharge Disposition: Home or Self Care 11/23/2024 11:00 AM EST Office Visit Orthopedic Surgery [facility] [address] [facility] [address] [place] [phone] Leroy Lees MD Rotator cuff arthropathy, left (Primary Dx) 11/22/2024 10:45 AM EST Consult Orthopedic Surgery [facility] [address] [facility] [address] [place] [address] Trista David MD Acquired trigger finger of left index finger (Primary Dx) 11/04/2024 Telephone Orthopedic Surgery [facility] [address] [facility] [address] [place] [address] Eulalia Velez from Last 3 [...] Procedure Name Priority Date/Time Associated Diagnosis Comments [place] INCISION TENDON SHEATH 12/07/2024 12:32 PM EST Trigger finger, unspecified finger Case Notes PA ASSIST [place] ARTHROCENTESIS/ PIRATION/INJECTIO N MAJOR JOINT/BURSA W/O U/S GUIDANCE Routine 11/23/2024 11:00 AM EST Rotator cuff arthropathy, left from Last 3 Months Results * [place] ARTHROCENTESIS/ASPIRATION/INJECTION MAJOR JOINT/BURSA W/O U/S GUIDANCE (11/23/2024 [...] Result from Last 3 [place] [id number] MEDICAID [place] Advance Directives * Full [...] currently active code status orders. Care Teams Elevator Technician Relationship Specialty Start Date End Date Ernie Merritt MD [address] [place] [address] [place] [phone] PCP - General Internal Medicine 05/20/21
--- OUTSIDE RECORDS SUMMARY | 2024-12-22 19:20 | XMS_ITS | Encounter Summary ---
Author Organization [employer] Address [address] [place] [address] [address] [place] [address] Care Team Providers Care Heavy Equipment Field Mechanic Name Role Phone Ernie Noriega MD Primary Care Provide r Reason for Visit * Reason Onset Date Comments Med Refill 03/15/2024 Encounter Details Date Type Department Care Team ([facility] st Contact Info) Description 03/15/2024 Refill [facility] [address] [place] [address] Ofelia Melgar MD [address] [place] [address] Chronic midline low back pain without sciatica; [...] Visit [facility] [address] [place] [address] Ernie Noriega MD [address] [place] [address] documented as of this encounter Visit Diagnoses Diagnosis Chronic midline low back pain without sciatica Cervical radiculopathy Brachial neuritis or radiculitis nos documented in this encounter Additional Health Concerns Assessment Noted Time PHQ-9 Depression Total Score: 2 01/21/20 24 1:25 PM EDT documented as of this encounter Care Teams Heavy Equipment Field Mechanic Relationship Specialty Start Date End Date Ernie Noriega MD [address] [place] [address] PCP - General Internal Medicine 08/25/19 documented as of this encounter
--- OUTSIDE RECORDS SUMMARY | 2024-12-22 19:21 | XMS_ITS | Encounter Summary ---
Author Organization [employer] Address [address] [place] [address] [address] [place] [address] Care Team Providers Care Silvering Applicator Name Role Phone Ernie Noriega MD Primary Care Provide r Reason for Visit * Reason Comments Med Refill Encounter Details Date Type Department Care Team ([facility] st Contact Info) Description 11/28/2024 Refill [facility] [address] [place], [place] [phone] Ernie Noriega MD [address] [place], [place] [phone] Gastritis without bleeding, unspecified chronicity, unspecified gastritis [...] Description 01/12/2025 3:00 PM EDT Office Visit [facility] [address] [place] [address] Ernie Noriega MD [address] [place] [address] documented as of this encounter Visit Diagnoses Diagnosis Gastritis without bleeding, unspecified chronicity, unspecified gastritis type documented in this encounter Additional Health Concerns Assessment Noted Time PHQ-9 Depression Total Score: 2 01/21/20 24 1:25 PM EDT documented as of this encounter Care Teams Silvering Applicator Relationship Specialty Start Date End Date Ernie Noriega MD [address] [place] [address] PCP - General Internal Medicine 08/25/19 documented as of this encounter
--- OUTSIDE RECORDS SUMMARY | 2024-12-22 19:21 | XMS_ITS | Referral Summary ---
Author Organization [facility] Address [address] [place] [address] Care Team Providers Care Senior Network Architect Name Role Phone Ernie Merritt Primary Care Provider + Encounters Date Type Department Care Team Description 12/14/2024 9:00 AM EST Office Visit [facility] [address] [place] [phone] Christopher Peres MD Chronic bilateral low back pain with bilateral sciatica (Primary Dx); H/O cervical spine surgery 12/13/2024 Telephone [facility] [address] [place] [phone] Christopher Peres MD 12/08/2024 Telephone [facility] [address] [place] [address] Christopher Peres MD 11/01/2024 Orders Only [facility] - External Imaging [address] [place] [address] Radiology, External from Last 3 Months Allergies [...] propionate (FLONASE) 50 mcg/actuation nasal spray SMARTSI Sweet [place](s) Both Nares Twice Daily 3 Active tamsulosin [...] Info) Description 03/14/2025 3:00 PM EDT Follow-Up [facility] [address] [place] [address] Christopher Peres MD [address] [place], [place] [phone] Procedures * Due to [place] iConnect[employer] law, this organization might not be sharing negative HIV tests. Procedure Name Priority Date/Time Associated Diagnosis Comments MRI CERVICAL SPINE WO CONTRAST Routine 12/21/2024 7:55 AM EDT H/O cervical spine surgery AMB EXTERNAL MRI C-SPINE, OUTSIDE RESULT 12/21/2024 XR SCOLIOSIS 1 VIEW Routine 12/14/2024 1 0:30 AM EST Chronic bilateral low back pain with bilateral sciatica XR LUMBAR SPINE 4+ VIEWS INCLUDING FLEXION/EXTENSION Routine 12/14/2024 10:30 AM EST Chronic bilateral low back pain with bilateral sciatica AMB EXTERNAL MRI THORACIC AND LUMBAR SPINE, OUTSIDE RESULT 11/01/2024 from Last 3 Months Results * Due to [place] [employer] law, this organization might not be sharing negative HIV tests. * MRI Cervical Spine WO Contrast (12/21/2024 7:55 AM EDT) Anatomical Region Laterality Modality Spine, C-spine Magnetic Resonan ce 12/21/2024 7:30 AM EDT Narrative 12/22/2024 2:31 PM EDT [facility] Accession Number: [id number] Patient Name: Miguelina Julien Date of : 1965 Date of Exam: 12-21-2024 Referring Physician: Christopher Peres ?[facility] ?[address] [place] [address] ?[place], [place] [address] Exam: MR Cervical Spine (C-) CPT 44770 Room Description: [facility] 1.5 MR Cervical Spine (C-) CPT 30655 INDICATION: previous C spine surgery, appears tight on MRI T spine bellperson ?? TECHNIQUE: Multiplanar, multisequence MRI of the cervical spine was performed without intravenous contrast. COMPARISON: MRI cervical spine 05/25/2017. FINDINGS: ALIGNMENT, VERTEBRAE, MARROW, AND DISCS: There has been prior ACDF at C4-5 and C5-6. Hardware and immediately adjacent structures are not directly assessed due to susceptibility artifact. Alignment is preserved. Vertebral body heights are preserved. There is no significant marrow signal abnormality. Intervertebral discs are mildly desiccated. There is moderate loss of disc space at C6-7. POSTERIOR FOSSA AND CORD: Visualized posterior fossa is normal. The cervical cord is normal in signal and caliber. PARASPINAL TISSUES: Soft tissues of the neck are unremarkable. Major cervical flow voids are present. DETAILED FINDINGS BY LEVEL: C2-C3: No significant disc herniation, central stenosis, or neural foraminal narrowing. C3-C4: Central disc protrusion, increased from prior, as well as left greater than right uncovertebral and facet spurring. This results in focal moderate central stenosis with disc bulge abutting the ventral cord, though there is a preserved rim of CSF space dorsally and no cord signal change. Mild to moderate left and no significant right neural foraminal narrowing. C4-C5: Interval ACDF. Posterior osteophyte spurring and left greater than right uncovertebral spurring. Minimal central stenosis, improved from prior. Severe left and mild right neural foraminal narrowing is similar to prior. C5-C6: Interval ACDF. Bilateral uncovertebral spurring. Minimal central stenosis, improved from prior. Severe right neural foraminal narrowing, similar prior. C6-C7: Broad-based disc osteophyte complex with bilateral facet spurring. Mild central stenosis. Moderate to severe right and minimal left neural foraminal narrowing, which appears increased on the right from the prior study. C7-T1: Bilateral facet hypertrophy. Mild broad-based disc bulge. No significant central stenosis. Mild to moderate bilateral neural foraminal narrowing. IMPRESSION: Degenerative and post surgical changes of the cervical spine as detailed above. * ??There has been increase in focal moderate central stenosis at C3-4 since the prior study due to an increased central disc protrusion. Disc protrusion abuts the cord, but there is a preserved rim of CSF space and no cord signal abnormality. * ??Multilevel neural foraminal narrowing, including severe neural foraminal narrowing on the left at C4-5 and on the right at C5-6 which appears similar to prior, as well as moderate to severe right-sided neural foraminal narrowing at C6-7 which appears increased from prior. Electronically Signed By: Priti Mendez MD Procedure Note Provider, Porsche - 12/22/2024 [facility] Accession Number: [id number] Patient Name: Miguelina Julien Date of : 1965 Date of Exam: 12-21-2024 Referring Physician: Christopher Peres [place] [id number] Exam: MR Cervical Spine (C-) CPT 09152 Room Description: [facility] 1.5 MR Cervical Spine (C-) CPT 94398 INDICATION: previous C spine surgery, appears tight on MRI T spine bellperson TECHNIQUE: Multiplanar, multisequence MRI of the cervical spine was performed without intravenous contrast. COMPARISON: MRI cervical spine 05/25/2017. FINDINGS: ALIGNMENT, VERTEBRAE, MARROW, AND DISCS: There has been prior ACDF at C4-5 and C5-6. Hardware and immediately adjacent structures are not directly assessed due to susceptibility artifact. Alignment is preserved. Vertebral body heights are preserved. There is no significant marrow signal abnormality. Intervertebral discs are mildly desiccated. There is moderate loss of disc space at C6-7. POSTERIOR FOSSA AND CORD: Visualized posterior fossa is normal. The cervical cord is normal in signal and caliber. PARASPINAL TISSUES: Soft tissues of the neck are unremarkable. Major cervical flow voids are present. DETAILED FINDINGS BY LEVEL: C2-C3: No significant disc herniation, central stenosis, or neural foraminal narrowing. C3-C4: Central disc protrusion, increased from prior, as well as left greater than right uncovertebral and facet spurring. This results in focal moderate central stenosis with disc bulge abutting the ventral cord, though there is a preserved rim of CSF space dorsally and no cord signal change. Mild to moderate left and no significant right neural foraminal narrowing. C4-C5: Interval ACDF. Posterior osteophyte spurring and left greater than right uncovertebral spurring. Minimal central stenosis, improved from prior. Severe left and mild right neural foraminal narrowing is similar to prior. C5-C6: Interval ACDF. Bilateral uncovertebral spurring. Minimal central stenosis, improved from prior. Severe right neural foraminal narrowing, similar prior. C6-C7: Broad-based disc osteophyte complex with bilateral facet spurring. Mild central stenosis. Moderate to severe right and minimal left neural foraminal narrowing, which appears increased on the right from the prior study. C7-T1: Bilateral facet hypertrophy. Mild broad-based disc bulge. No significant central stenosis. Mild to moderate bilateral neural foraminal narrowing. IMPRESSION: Degenerative and post surgical changes of the cervical spine as detailed above. * There has been increase in focal moderate central stenosis at C3-4 since the prior study due to an increased central disc protrusion. Disc protrusion abuts the cord, but there is a preserved rim of CSF space and no cord signal abnormality. * Multilevel neural foraminal narrowing, including severe neural foraminal narrowing on the left at C4-5 and on the right at C5-6 which appears similar to prior, as well as moderate to severe right-sided neural foraminal narrowing at C6-7 which appears increased from prior. Electronically Signed By: Priti Mendez MD Christopher Peres MD [facility] MRI PROCEDURES Final Re sult * MRI C-Spine, Outside Result (12/21/2024) Anatomical Region Laterality Modality Other 12/21/2024 us Onbase Scan Carol AMB EXTERNAL RESULT PROCEDURE S Final Result * X-ray lumbar spine flexion and extension [...] obtain the completed interpretation. ? Workstation ID: [id number] Narrative 12/14/2024 5:30 PM EST COMPARISON: There are no prior studies available for comparison at this time. Resulting Agency Comment [id number] Procedure Note Stone Reid MD - 12/14/2024 [...] possible to obtain thecompleted interpretation. Workstation ID: [id number] us Christopher Peres MD IMG XR PROCEDURES [...] obtain the completed interpretation. ? Workstation ID: [id number] Narrative 12/14/2024 5:30 PM EST COMPARISON: There are no prior studies available for comparison at this time. Resulting Agency Comment [id number] Procedure Note Stone Reid MD - 12/14/2024 [...] possible to obtain thecompleted interpretation. Workstation ID: [id number] us Christopher Peres MD IMG XR PROCEDURES Final Res ult * MRI Thoracic and Lumbar Spine, Outside Result (11/01/2024) Anatomical Region Laterality Modality Other 11/01/2024 us Onbase Scan Carol AMB EXTERNAL RESULT PROCEDURE S Final Result from Last 3 Mon[place] [id number] Care Teams Senior Network Architect Relationship Specialty Start Date End Date Ernie Merritt [address] [place] [address] PCP - General Internal Medicine 11/29/24
--- OUTSIDE RECORDS SUMMARY | 2024-12-22 19:21 | XMS_ITS | Encounter Summary ---
Author Organization [employer] Address [address] [place] [address] [address] [place] [address] Care Team Providers Care Tax Services Professional Name Role Phone Ernie Noriega MD Primary Care Provide r Reason for Visit * Reason Onset Date Comments Med Refill 10/27/2023 Encounter Details Date Type Department Care Team ([facility] st Contact Info) Description 10/27/2023 Refill [facility] [address] [place] [address] Ernie Noriega MD [address] [place] [address] Seasonal allergies; Pain Social History Tobacco Use [...] 01/12/2025 3:00 PM EDT Office Visit [facility] [address] [place] [address] Ernie Noriega MD [address] [place] [address] documented as of this encounter Visit Diagnoses Diagnosis Seasonal allergies Allergic rhinitis, cause unspecified Pain Generalized pain documented in this encounter Additional Health Concerns Assessment Noted Time PHQ-9 Depression Total Score: 0 12/02/19 23 2:38 PM EST documented as of this encounter Care Teams Tax Services Professional Relationship Specialty Start Date End Date Ernie Noriega MD [address] [place] [address] PCP - General Internal Medicine 08/25/19 documented as of this encounter
--- OUTSIDE RECORDS SUMMARY | 2024-12-22 19:21 | XMS_ITS | Encounter Summary ---
Author Organization [employer] Address [address] [place] [address] 7t [place] [address] Care Team Providers Care Transfer Knitter Name Role Phone Ernie Noriega MD Primary Care Provide r Reason for Visit * Reason Comments Med Refill Encounter Details Date Type Department Care Team ([facility] st Contact Info) Description 10/16/2023 Refill [facility] [address] [place], [place] [phone] Ernie Noriega MD [address] [place] [address] Pain Social History Tobacco Use Types Packs/Day [...] Visit [facility] [address] [place] [address] Ernie Noriega MD [address] [place] [address] documented as of this encounter Visit Diagnoses Diagnosis Pain Generalized pain documented in this encounter Additional Health Concerns Assessment Noted Time PHQ-9 Depression Total Score: 0 12/02/19 23 2:38 PM EST documented as of this encounter Care Teams Transfer Knitter Relationship Specialty Start Date End Date Ernie Noriega MD [address] [place] [address] PCP - General Internal Medicine 08/25/19 documented as of this encounter
--- OUTSIDE RECORDS SUMMARY | 2024-12-22 19:21 | XMS_ITS | Encounter Summary ---
Author Organization [employer] Address [address] [place] [address] 7t [place] [address] Care Team Providers Care Kit Assembler Name Role Phone Ernie Noriega MD Primary Care Provide r Reason for Visit * Reason Onset Date Comments Med Refill 04/16/2024 Encounter Details Date Type Department Care Team ([facility] st Contact Info) Description 04/16/2024 Refill [facility] [address] [place] [address] Ernie Noriega MD [address] [place] [address] Essential hypertension Social History Tobacco Use Types [...] Office Visit [facility] [address] [place] [address] Ernie Noriega MD [address] [place] [address] documented as of this encounter Visit Diagnoses Diagnosis Essential hypertension Unspecified essential hypertension documented in this encounter Additional Health Concerns Assessment Noted Time PHQ-9 Depression Total Score: 2 01/21/20 24 1:25 PM EDT documented as of this encounter Care Teams Kit Assembler Relationship Specialty Start Date End Date Ernie Noriega MD [address] [place] [address] PCP - General Internal Medicine 08/25/19 documented as of this encounter
--- OUTSIDE RECORDS SUMMARY | 2024-12-22 19:21 | XMS_ITS | Encounter Summary ---
Author Organization [employer] Address [address] [place] [address] 7t [place] [address] Care Team Providers Care Technical Account Manager Name Role Phone Ernie Noriega MD Primary Care Provide r Reason for Visit * Reason Onset Date Comments Med Refill 11/07/2024 Encounter Details Date Type Department Care Team ([facility] st Contact Info) Description 11/07/2024 Refill [facility] [address] [place] [address] Ernie Noriega MD [address] [place] [address] Chronic midline low back pain without sciatica [...] Description 01/12/2025 3:00 PM EDT Office Visit [facility] [address] [place] [address] Ernie Noriega MD [address] [place] [address] documented as of this encounter Visit Diagnoses Diagnosis Chronic midline low back pain without sciatica documented in this encounter Additional Health Concerns Assessment Noted Time PHQ-9 Depression Total Score: 2 01/21/20 24 1:25 PM EDT documented as of this encounter Care Teams Technical Account Manager Relationship Specialty Start Date End Date Ernie Noriega MD [address] [place] [phone] PCP - General Internal Medicine 08/25/19 documented as of this encounter
--- OUTSIDE RECORDS SUMMARY | 2024-12-22 19:21 | XMS_ITS | Encounter Summary ---
Author Organization [employer] Address [address] [place] [address] 7[address] [place] [address] Care Team Providers Care Research Quality Assurance Analyst Name Role Phone Ernie Noriega MD Primary Care Provide r Reason for Visit * Reason Onset Date Comments Med Refill 10/17/2024 Encounter Details Date Type Department Care Team ([facility] st Contact Info) Description 10/17/2024 Refill [facility] [address] [place] [address] Ernie Noriega MD [address] [place] [address] Primary osteoarthritis of knee, unspecified laterality Social [...] 01/12/2025 3:00 PM EDT Office Visit [facility] [address] [place] [address] Ernie Noriega MD [address] [place] [address] documented as of this encounter Visit Diagnoses Diagnosis Primary osteoarthritis of knee, unspecified laterality documented in this encounter Additional Health Concerns Assessment Noted Time PHQ-9 Depression Total Score: 2 01/21/20 24 1:25 PM EDT documented as of this encounter Care Teams Research Quality Assurance Analyst Relationship Specialty Start Date End Date Ernie Noriega MD [address] [place] [phone] PCP - General Internal Medicine 08/25/19 documented as of this encounter
--- OUTSIDE RECORDS SUMMARY | 2024-12-22 19:21 | XMS_ITS | Encounter Summary ---
Author Organization [facility] Address [address] [place] [address] Care Team Providers Care Division Order Technician Name Role Phone Ernie Merritt MD Primary Care Provi bobo Reason for Visit * Reason Comments Post-op Encounter Details Date Type Department Care Team ([facility] st Contact Info) Description 12/16/2024 11:00 AM EST Office Visit [facility] [place] [address] [place] [phone] Nicolasa Yu PA [address] [place] [phone] S/P trigger finger release (Primary Dx) Social [...] Primary documented in this encounter Care Teams Division Order Technician Relationship Specialty Start Date End Date Ernie Merritt MD [address] [place] [phone] PCP - General Internal Medicine 05/20/21 documented as of this encounter
--- OUTSIDE RECORDS SUMMARY | 2024-12-22 19:21 | XMS_ITS | Encounter Summary ---
Author Organization [employer] Address [address] [place] [address] 7[address] [place] [address] Care Team Providers Care State Pilot Name Role Phone Ernie Noriega MD Primary Care Provide r Reason for Visit * Reason Onset Date Comments Med Refill 01/26/2024 Encounter Details Date Type Department Care Team ([facility] st Contact Info) Description 01/26/[address] [facility] [address] [place] [address] Ilsa Robison, ANP [address] [place] [address] Chronic midline low back pain without sciatica; [...] 01/12/2025 3:00 PM EDT Office Visit [facility] [address] [place] [address] Ernie Noriega MD [address] [place] [address] documented as of this encounter Visit Diagnoses Diagnosis Chronic midline low back pain without sciatica Cervical radiculopathy Brachial neuritis or radiculitis nos documented in this encounter Additional Health Concerns Assessment Noted Time PHQ-9 Depression Total Score: 2 01/21/20 24 1:25 PM EDT documented as of this encounter Care Teams State Pilot Relationship Specialty Start Date End Date Ernie Noriega MD [address] [place] [address] PCP - General Internal Medicine 08/25/19 documented as of this encounter
--- OUTSIDE RECORDS SUMMARY | 2024-12-22 19:21 | XMS_ITS | Encounter Summary ---
Author Organization [employer] Address [address] [place] [address] 7t [place] [address] Care Team Providers Care Local Intermodal Truck Driver Name Role Phone Ernie Noriega MD Primary Care Provide r Reason for Visit * Reason Onset Date Comments Med Refill 08/17/2023 Encounter Details Date Type Department Care Team ([facility] st Contact Info) Description 08/17/2023 Telephone [facility] [address] [place], [place] [phone] Ernie Noriega MD [address] [place], [place] [phone] Med Refill Social History Tobacco Use Types [...] MG tablet Please sent to [facility]/pharmacy #[id number] [place], [place] - [address] [place] [address] documented in this encounter Plan of Treatment Upcoming Encounters Date Type Department Care Team (Late st Contact Info) Description 01/12/2025 3:00 PM EDT Office Visit [facility] [address] [place] [address] Ernie Noriega MD [address] [place] [address] documented as of this encounter Visit Diagnoses Not on filedocumented in this encounter Additional Health Concerns Assessment Noted Time PHQ-9 Depression Total Score: 0 12/02/19 23 2:38 PM EST documented as of this encounter Care Teams Local Intermodal Truck Driver Relationship Specialty Start Date End Date Ernie Noriega MD [address] [place] [address] PCP - General Internal Medicine 08/25/19 documented as of this encounter
--- OUTSIDE RECORDS SUMMARY | 2024-12-22 19:21 | XMS_ITS | Encounter Summary ---
Author Organization [employer] Address [address] [place] [address] 7[address] [place] [address] Care Team Providers Care Coal Picker Name Role Phone Ernie Noriega MD Primary Care Provide r Reason for Visit * Reason Onset Date Comments Med Refill 11/17/2024 Encounter Details Date Type Department Care Team ([facility] st Contact Info) Description 11/17/2024 Refill [facility] [address] [place] [address] Ernie Noriega MD [address] [place] [address] Seasonal allergies Social History Tobacco Use Types [...] 3:00 PM EDT Office Visit [facility] [address] [place] [address] Ernie Noriega MD [address] [place] [address] documented as of this encounter Visit Diagnoses Diagnosis Seasonal allergies Allergic rhinitis, cause unspecified documented in this encounter Additional Health Concerns Assessment Noted Time PHQ-9 Depression Total Score: 2 01/21/20 24 1:25 PM EDT documented as of this encounter Care Teams Coal Picker Relationship Specialty Start Date End Date Ernie Noriega MD [address] [place] [phone] PCP - General Internal Medicine 08/25/19 documented as of this encounter
--- OUTSIDE RECORDS SUMMARY | 2024-12-22 19:21 | XMS_ITS | Encounter Summary ---
Author Organization [employer] Address [address] [place] [address] [address] [place] [address] Care Team Providers Care Highway Maintenance Supervisor Name Role Phone Ernie Noriega MD Primary Care Provide r Reason for Visit * Reason Comments Med Refill Encounter Details Date Type Department Care Team ([facility] st Contact Info) Description 12/15/2024 Refill [facility] [address] [place], [place] [phone] Ernie Noriega MD [address] [place] [address] Social History Tobacco Use Types Packs/Day Years [...] Description 01/12/2025 3:00 PM EDT Office Visit [facility] [address] [place] [address] Ernie Noriega MD [address] [place] [address] documented as of this encounter Visit Diagnoses Not on filedocumented in this encounter Additional Health Concerns Assessment Noted Time PHQ-9 Depression Total Score: 2 01/21/20 24 1:25 PM EDT documented as of this encounter Care Teams Highway Maintenance Supervisor Relationship Specialty Start Date End Date Ernie Noriega MD [address] [place] [address] PCP - General Internal Medicine 08/25/19 documented as of this encounter
--- OUTSIDE RECORDS SUMMARY | 2024-12-22 19:21 | XMS_ITS | Encounter Summary ---
Author Organization [employer] [facility] Address [address] [place] [address] 7 [place] [address] Care Team Providers Care Lubrication Supervisor Name Role Phone Ernie Noriega MD Primary Care Provide r Reason for Visit * Reason Onset Date Comments Appointment Request 02/17/2023 Encounter Details Date Type Department Care Team ([facility] st Contact Info) Description 02/17/2023 Telephone [facility] MED[facility] [address] [place] [address] Ernie Noriega MD [address] [place] [address] Appointment Request Social History Tobacco Use Types [...] a colonoscopy due to advise by her insulator tester in [facility] Please contact pt AT [phone] Lithuanian Speaker documented in this encounter Plan of Treatment Upcoming Encounters Date Type Department Care Team (Late st Contact Info) Description 01/12/2025 3:00 PM EDT Office Visit [facility] MED[facility]INE [address] [place] [address] Ernie Noriega MD [address] [place] [address] documented as of this encounter Visit Diagnoses Not on filedocumented in this encounter Additional Health Concerns Assessment Noted Time PHQ-9 Depression Total Score: 0 12/02/19 23 2:38 PM EST documented as of this encounter Care Teams Lubrication Supervisor Relationship Specialty Start Date End Date Ernie Noriega MD [address] [place], [place] [phone] PCP - General Internal Medicine 08/25/19 documented as of this encounter
--- OUTSIDE RECORDS SUMMARY | 2024-12-22 19:21 | XMS_ITS | Encounter Summary ---
Author Organization [employer] Address [address] [place] [address] 7 [place] [address] Care Team Providers Care Research Program Assistant Name Role Phone Ernie Noriega MD Primary Care Provide r Reason for Visit * Reason Onset Date Comments Med Refill 10/25/2023 Encounter Details Date Type Department Care Team ([facility] st Contact Info) Description 10/25/2023 Refill [facility] MEDICINE [address] [place] [address] Ernie Noriega MD [address] [place] [address] Social History Tobacco Use Types Packs/Day Years [...] Description 01/12/2025 3:00 PM EDT Office Visit [facility] [address] [place] [address] Ernie Noriega MD [address] [place] [address] documented as of this encounter Visit Diagnoses Not on filedocumented in this encounter Additional Health Concerns Assessment Noted Time PHQ-9 Depression Total Score: 0 12/02/19 23 2:38 PM EST documented as of this encounter Care Teams Research Program Assistant Relationship Specialty Start Date End Date Ernie Noriega MD [address] [place] [address] PCP - General Internal Medicine 08/25/19 documented as of this encounter
--- OUTSIDE RECORDS SUMMARY | 2024-12-22 19:21 | XMS_ITS | Encounter Summary ---
Author Organization [employer] [facility] Address [address] [place] [address] 7t [place] [address] Care Team Providers Care Asset Management Coordinator Name Role Phone Ernie Noriega MD Primary Care Provide r Encounter Details Date Type Department Care Team (Latest Contact Info) Description 06/19/2022 Abstract [facility] CONVERSIONS Dental, Provider, DDS Social History Tobacco [...] [facility] MEDICINE [address] [place] [address] Ernie Noriega MD [address] [place] [address] documented as of this encounter Visit Diagnoses Not on filedocumented in this encounter Care Teams Asset Management Coordinator Relationship Specialty Start Date End Date Ernie Noriega MD [address] [place] [address] PCP - General Internal Medicine 08/25/19 documented as of this encounter
--- OUTSIDE RECORDS SUMMARY | 2024-12-22 19:21 | XMS_ITS | Encounter Summary ---
Author Organization [employer] Address [address] [place] [address] 7t [place] [address] Care Team Providers Care Poultry Processing Supervisor Name Role Phone Ernie Noriega MD Primary Care Provide r Reason for Visit * Reason Onset Date Comments Med Refill 10/25/2024 Encounter Details Date Type Department Care Team ([facility] st Contact Info) Description 10/25/2024 Refill [facility] MEDICINE [address] [place] [address] Ernie Noriega MD 230 [place] [address] Chronic midline low back pain without sciatica [...] Visit [facility] MEDICINE [address] [place] [address] Ernie Noriega MD [address] [place] [address] documented as of this encounter Visit Diagnoses Diagnosis Chronic midline low back pain without sciatica documented in this encounter Additional Health Concerns Assessment Noted Time PHQ-9 Depression Total Score: 2 01/21/20 24 1:25 PM EDT documented as of this encounter Care Teams Poultry Processing Supervisor Relationship Specialty Start Date End Date Ernie Noriega MD [address] [place] [address] PCP - General Internal Medicine 08/25/19 documented as of this encounter
--- OUTSIDE RECORDS SUMMARY | 2024-12-22 19:21 | XMS_ITS | Encounter Summary ---
Author Organization [employer] Address [address] [place] [address] 7t [place] [address] Care Team Providers Care Community Dietitian Name Role Phone Ernie Noriega MD Primary Care Provide r Reason for Visit * Reason Onset Date Comments Med Refill 11/04/2023 Encounter Details Date Type Department Care Team ([facility] st Contact Info) Description 11/04/2023 Refill [facility] MEDICINE [address] [place] [address] Ernie Noriega MD 230 [place] [address] Chronic midline low back pain without sciatica; [...] EDT Office Visit [facility] MEDICINE [address] [place] [address] Ernie Noriega MD [address] [place] [address] documented as of this encounter Visit Diagnoses Diagnosis Chronic midline low back pain without sciatica Cervical radiculopathy Brachial neuritis or radiculitis nos Seasonal allergies Allergic rhinitis, cause unspecified documented in this encounter Additional Health Concerns Assessment Noted Time PHQ-9 Depression Total Score: 0 12/02/19 23 2:38 PM EST documented as of this encounter Care Teams Community Dietitian Relationship Specialty Start Date End Date Ernie Noriega MD [address] [place] [address] PCP - General Internal Medicine 08/25/19 documented as of this encounter
--- OUTSIDE RECORDS SUMMARY | 2024-12-22 19:21 | XMS_ITS | Encounter Summary ---
Author Organization [employer] Address [address] [facility] 7t [place] [address] Care Team Providers Care Planner Chief Name Role Phone Ernie Noriega MD Primary Care Provide r Reason for Visit * Reason Onset Date Comments Results 12/22/2024 Encounter Details Date Type Department Care Team ([facility] Contact Info) Description 12/22/2024 Telephone [facility] 230 [place] [address] Marty Soto MD 230 [place] [address] Results Social History Tobacco Use Types Packs/Day Years [...] encounter Miscellaneous Notes * Telephone Encounter - Lianet Sanders RN - 12/22/2024 12:19 PM EDT Call placed to patient to relay message below. Advised patient that her right foot x-ray was read as normal. Additionally informed patient that her blood tests did not reveal the cause of her foot pain. Advised patient that Dr. Soto placed a referral to orthopedic surgery and that she will receive either a letter in the mail or a phone call with appointment information. All questions answered. Patient verbalizes understanding and agreement with plan of care at this time[place] [id number] ----- Message from Marty Soto MD sent at 12/22/2024 12:03 PM EDT ----- Please let Miguelina know that her right foot x-rays were read as normal, and her blood tests did notreveal the cause of her foot pain. I sent a referral to orthopedic surgery. Thanks. Gurinder documented in this encounter Plan of Treatment Upcoming Encounters Date Type Department Care Team (Late st Contact Info) Description 01/12/2025 3:00 PM EDT Office Visit [facility] MED[facility] [address] [place] [address] Ernie Noriega MD 230 [place] [address] documented as of this encounter Visit Diagnoses Not on filedocumented in this encounter Additional Health Concerns Assessment Noted Time PHQ-9 Depression Total Score: 2 01/21/20 24 1:25 PM EDT documented as of this encounter Care Teams Planner Chief Relationship Specialty Start Date End Date Ernie Noriega MD 230 [place] [address] PCP - General Internal Medicine 08/25/19 documented as of this encounter
--- OUTSIDE RECORDS SUMMARY | 2024-12-22 19:21 | XMS_ITS | Encounter Summary ---
Author Organization [employer] Address [address] [place] [address] 7t [place] [address] Care Team Providers Care Hand Shoes Sewer Name Role Phone Ernie Noriega MD Primary Care Provide r Reason for Visit * Reason Onset Date Comments Med Refill 11/04/2023 Encounter Details Date Type Department Care Team ([facility] st Contact Info) Description 11/04/2023 Refill [facility] 230 [place] [address] Ernie Noriega MD [address] [place] [address] Pain Social History Tobacco Use Types Packs/Day [...] PM EDT Office Visit [facility] MEDICINE [address] [place] [address] Ernie Noriega MD [address] [place] [address] documented as of this encounter Visit Diagnoses Diagnosis Pain Generalized pain documented in this encounter Additional Health Concerns Assessment Noted Time PHQ-9 Depression Total Score: 0 12/02/19 23 2:38 PM EST documented as of this encounter Care Teams Hand Shoes Sewer Relationship Specialty Start Date End Date Ernie Noriega MD [address] [place] [address] PCP - General Internal Medicine 08/25/19 documented as of this encounter
--- OUTSIDE RECORDS SUMMARY | 2024-12-22 19:21 | XMS_ITS | Encounter Summary ---
Author Organization [employer] [facility] Address [address] [place] [address] 7t [place] [address] Care Team Providers Care Hand Sizer Name Role Phone Ernie Noriega MD Primary Care Provide r Encounter Details Date Type Department Care Team (Latest Contact Info) Description 03/07/2021 Abstract [facility] CONVERSIONS Dental, Provider, DDS Social History [...] Office Visit [facility] MEDICINE [address] [place] [address] Ernie Noriega MD [address] [place] [address] documented as of this encounter Visit Diagnoses Not on filedocumented in this encounter Care Teams Hand Sizer Relationship Specialty Start Date End Date Ernie Noriega MD [address] [place] [address] PCP - General Internal Medicine 08/25/19 documented as of this encounter
--- OUTSIDE RECORDS SUMMARY | 2024-12-22 19:21 | XMS_ITS | Clinical Summary ---
Author Organization [facility] Address [address] [place] [address] Care Team Providers Care General Inspector Name Role Phone Ernie Merritt Primary Care [...] propionate (FLONASE) 50 mcg/actuation nasal spray [employer] [place](s) Both Nares Twice Daily 3 Active tamsulosin [...] Description 12/14/2024 9:00 AM EST Office Visit [facility] [address] [place] [address] Christopher Peres MD Chronic bilateral low back pain with bilateral sciatica (Primary Dx); H/O cervical spine surgery 12/13/2024 Telephone [facility] [address] [place] [address] Christopher Peres MD 12/08/2024 Telephone [facility] [address] [place] [address] Christopher Peres MD 11/01/2024 Orders Only [facility] - External Imaging [address] [place] [address] Radiology, External from Last 3 Months Social [...] Info) Description 03/14/2025 3:00 PM EDT Follow-Up [facility] [address] [place] [address] Christopher Peres MD [address] [place], [place] [phone] Health Maintenance Due Date Last Done Comments [...] complete this topic Procedures * Due to [place] law, this organization might not be sharing [...] 3 Months Results * Due to [place] law, this organization might not be sharing negative HIV tests. * MRI Cervical Spine WO Contrast (12/21/2024 7:55 AM EDT) Anatomical Region Laterality Modality Spine, C-spine Magnetic Resonan ce 12/21/2024 7:30 AM EDT Narrative 12/22/2024 2:31 PM EDT [facility] Accession Number: [id number] Patient Name: Miguelina Julien Date of : 1965 Date of Exam: 12-21-2024 Referring Physician: Christopher Peres ?[facility] ?[address] [place] [address] ?[place] [address] Exam: MR Cervical Spine (C-) CPT 78516 Room Description: [facility] 1.5 MR Cervical Spine (C-) CPT 83909 INDICATION: previous C spine surgery, appears tight on MRI T spine freight engineer ?? TECHNIQUE: Multiplanar, multisequence MRI of the [...] MD Procedure Note Provider, Porsche - 12/22/2024 [facility] Accession Number: [id number] Patient Name: Miguelina Julien Date of : 1965 Date of Exam: 12-21-2024 Referring Physician: Christopher Peres [place] [address] Exam: MR Cervical Spine (C-) CPT 74598 Room Description: [facility] Espr 1.5 MR Cervical Spine (C-) CPT 21582 INDICATION: previous C spine surgery, appears tight on MRI T spine freight engineer TECHNIQUE: Multiplanar, multisequence MRI of the cervical [...] prior. Electronically Signed By: Priti Mendez MD us Christopher Peres MD IMG MRI PROCEDURES Final Re sult * MRI [...] obtain the completed interpretation. ? Workstation ID: [id number] Narrative 12/14/2024 5:30 PM EST COMPARISON: There are no prior studies available for comparison at this time. Resulting Agency Comment [id number] Procedure Note [place] Reid MD - 12/14/2024 [...] possible to obtain thecompleted interpretation. Workstation ID: [id number] us Christopher Peres MD IMG XR PROCEDURES [...] obtain the completed interpretation. ? Workstation ID: [id number] Narrative 12/14/2024 5:30 PM EST COMPARISON: There are no prior studies available for comparison at this time. Resulting Agency Comment [id number] Procedure Note [place] Reid MD - 12/14/2024 [...] possible to obtain thecompleted interpretation. Workstation ID: [id number] us Christopher Peres MD IMG XR PROCEDURES Final Res ult * MRI Thoracic and Lumbar Spine, Outside Result (11/01/2024) Anatomical Region Laterality Modality Other 11/01/2024 us Onbase Scan Carol AMB EXTERNAL RESULT PROCEDURE S Final Result from Last [address] [place], [place] [address] [id number] [place] Care Teams General Inspector Relationship Specialty Start Date End Date Ernie Merritt [address] [place] [address] PCP - General Internal Medicine 11/29/24
--- OUTSIDE RECORDS SUMMARY | 2024-12-22 19:21 | XMS_ITS | Encounter Summary ---
Author Organization [employer] Address [address] [facility] 7t [place] [address] Care Team Providers Care Director Of Outside Sales Name Role Phone Ernie Noriega MD Primary Care Provide r Encounter Details Date Type Department Care Team (Late st Contact Info) Description 12/09/2024 Orders Only [facility] External Provider, [facility] Social History Tobacco Use Types Packs/Day Years [...] 3:00 PM EDT Office Visit [facility] [address] [facility] [place] [address] Ernie Noriega MD [address] [facility] [place] [address] documented as of this encounter Procedures Procedure Name Priority Date/Time Associated Diagnosis Comments FL GUIDANCE IN OR Routine 12/09/2024 9:0 8 AM EST documented in this encounter Results * FL Guidance in OR (12/09/2024 9:08 AM EST) Anatomical Region Laterality Modality X-Ray Angiograph y 12/09/2024 9:08 AM EST Narrative 12/09/2024 9:48 AM EST ? [facility] ?[address] ?[place] [address] ? Fluoroscopy Report ? Signed ? Patient: Julien,Miguelina ?MR#: [id number] ?? 12 ? : 1965 ?Acct:[id number] ? Age/Sex: 59 / F ?ADM Date: 02/28/25 ? Loc: HO.SSS ? Attending Sue Casas MD ? Ordering Physician: Aldo Casas MD ?? Date of Service: 12/09/24 ?? Procedure(s): FL guidance in OR ?? Accession Number(s): [id number] ? cc: Ofelia Melgar MD; Aldo Casas [...] additional information. ? Electronically signed by: ??Rodrick iWlliamson MD ??12/09/2024 09:45 AM EST ?? RP ? Dictated By: ?Rodrick Williamson MD ? Signed By: ?<Electronically signed by Rodrick Williamson MD in OV> ?12/09/24 0945 ? DD/ 0908 ? TD/TT: 12/09/24 0930 ? Sewer Separation Designer: ? Procedure Note Donsomter, Image - 12/09/2024 [place] [address] Fluoroscopy Report Signed Patient: Miguelina Julien#: [id number] 12 : 1965Acct:[id number] Age/Sex: 59 / FADM Date: 12/09/24 Loc: HO.[facility] Attending Dr: Aldo Casas MD Ordering Physician: Aldo Casas MD Date of Service: 12/09/24 Procedure(s): FL guidance in OR Accession Number(s): [id number] cc: Ofelia Melgar MD; Aldo Casas MD [...] 02/28/25 0945 DD/ 0908 TD/TT: 12/09/24 09 Sewer Separation Designer: [facility] External Provider IMG IR PROCEDURES Final Result documented in this encounter Visit Diagnoses Not on filedocumented in this encounter Additional Health Concerns Assessment Noted Time PHQ-9 Depression Total Score: 2 01/21/20 24 1:25 PM EDT documented as of this encounter Care Teams Director Of Outside Sales Relationship Specialty Start Date End Date Ernie Noriega MD [address] [place] [address] PCP - General Internal Medicine 08/25/19 documented as of this encounter
--- OUTSIDE RECORDS SUMMARY | 2024-12-22 19:21 | XMS_ITS | Encounter Summary ---
Author Organization [employer] [facility] Address [address] [place] [address] 7t [place] [address] Care Team Providers Care Health Care Recruiter Name Role Phone Ernie Noriega MD Primary Care Provide r Encounter Details Date Type Department Care Team (Late st Contact Info) Description 04/13/2023 Orders Only [facility] MED[facility]INE [address] [place] [phone] Sugar Mitchell MD [address] [place] [address] [phone] Neuropathic pain of right lower extremity (Primary [...] Office Visit [facility] MED[facility] [address] [place] [address] Ernie Noriega MD [address] [place], [place] [phone] documented as of this encounter Procedures Procedure Name Priority Date/Time Associated Diagnosis Comments BASIC METABOLIC PANEL Routine 05/13/2023 8:40 AM EDT Neuropathic pain of right lower extremity documented in this encounter Results * (ABNORMAL) Basic Metabolic Panel (05/13/2023 8:40 AM EDT) Sodium 141 135 - 145 mmol/L [facility] Potassium 3.5 3.3 - 5.1 mmol/L [facility] Chloride 103 96 - 108 mmol/L [facility] Carbon Dioxide 23 22 - 29 mmol/L [facility] Anion Gap 19 12 - 20 [facility] Urea Nitrogen (BUN) 15 9 - 16 mg/dL [facility] Creatinine, Serum 0.78 0.5 - 1.4 mg/dL [facility] Estimated Glomerular Filt Rate >60 [facility] Comment:NOTE: For -Am erican individuals, multiply the result by 1.210.Chronic Kidney Disease: Estimated GFR < 60 mL/min/1.41w8Gbnplf Kidney Disease: Estimated GFR < 15 mL/min/1.73m2 Glucose 151(H) 60 - 115 mg/dL [facility] Calcium 9.3 8.4 - 10.2 mg/dL [facility] Blood Venous blood specimen / Unknown 05/13/2023 8:40 AM EDT 05/13/2023 11:14 AM EDT us Sugar Mitchell MD LAB BLOOD ORDERABLES Final Resul t [facility] [address] [place] [phone] documented in this encounter Visit Diagnoses Diagnosis Neuropathic pain of right lower extremity- Primary documented in this encounter Additional Health Concerns Assessment Noted Time PHQ-9 Depression Total Score: 0 12/02/19 23 2:38 PM EST documented as of this encounter Care Teams Health Care Recruiter Relationship Specialty Start Date End Date Ernie Noriega MD [address] [place] [address] PCP - General Internal Medicine 08/25/19 documented as of this encounter
--- OUTSIDE RECORDS SUMMARY | 2024-12-22 19:21 | XMS_ITS | Encounter Summary ---
Author Organization [employer] Address [address] [place] [address] 7t [place] [address] Care Team Providers Care Hourly Manager Name Role Phone Ernie Noriega MD Primary Care Provide r Reason for Visit * Reason Onset Date Comments Med Refill 10/27/2023 Encounter Details Date Type Department Care Team ([facility] st Contact Info) Description 10/27/[address] [facility] MED[facility] [address] [place] [address] Ernie Noriega MD [address] [place] [address] Mild persistent asthma without complication; Pain; Chronic [...] 01/12/2025 3:00 PM EDT Office Visit [facility] [address] [place] [address] Ernie Noriega MD [address] [place] [address] documented as of this encounter Visit Diagnoses Diagnosis Mild persistent asthma without complication Pain Generalized pain Chronic midline low back pain without sciatica Cervical radiculopathy Brachial neuritis or radiculitis nos documented in this encounter Additional Health Concerns Assessment Noted Time PHQ-9 Depression Total Score: 0 12/02/19 23 2:38 PM EST documented as of this encounter Care Teams Hourly Manager Relationship Specialty Start Date End Date Ernie Noriega MD [address] [place] [address] PCP - General Internal Medicine 08/25/19 documented as of this encounter
--- OUTSIDE RECORDS SUMMARY | 2024-12-22 19:21 | XMS_ITS | Encounter Summary ---
Author Organization [employer] Address [address] [place] [address] 7t [place] [address] Care Team Providers Care Tray Server Name Role Phone Ernie Noriega MD Primary Care Provide r Reason for Visit * Reason Onset Date Comments Med Refill 11/03/2023 Encounter Details Date Type Department Care Team ([facility] st Contact Info) Description 11/03/2023 Refill [facility] [address] [place] [address] Ernie Noriega MD [address] [place] [address] Seasonal allergies Social History Tobacco Use Types [...] 01/12/2025 3:00 PM EDT Office Visit [facility] [address] [place] [address] Ernie Noriega MD [address] [place] [address] documented as of this encounter Visit Diagnoses Diagnosis Seasonal allergies Allergic rhinitis, cause unspecified documented in this encounter Additional Health Concerns Assessment Noted Time PHQ-9 Depression Total Score: 0 12/02/19 23 2:38 PM EST documented as of this encounter Care Teams Tray Server Relationship Specialty Start Date End Date Ernie Noriega MD [address] [place] [address] PCP - General Internal Medicine 08/25/19 documented as of this encounter
--- OUTSIDE RECORDS SUMMARY | 2024-12-22 19:21 | XMS_ITS | Encounter Summary ---
Author Organization [employer] Address [address] [place] [address] 7t [place] [address] Care Team Providers Care Manager School Name Role Phone Ernie Noriega MD Primary Care Provide r Reason for Visit * Reason Comments Med Refill Encounter Details Date Type Department Care Team ([facility] st Contact Info) Description 08/10/2023 Refill [facility] [address] [place] [address] Ernie Noriega MD [address] [place] [address] Primary osteoarthritis of knee, unspecified laterality; Chronic [...] 01/12/2025 3:00 PM EDT Office Visit [facility] [address] [place] [phone] Ernie Noriega MD [address] [place] [phone] documented as of this encounter Visit Diagnoses Diagnosis Primary osteoarthritis of knee, unspecified laterality Chronic midline low back pain without sciatica Cervical radiculopathy Brachial neuritis or radiculitis nos Pain Generalized pain documented in this encounter Additional Health Concerns Assessment Noted Time PHQ-9 Depression Total Score: 0 12/02/19 23 2:38 PM EST documented as of this encounter Care Teams Manager School Relationship Specialty Start Date End Date Ernie Noriega MD [address] [place] [phone] PCP - General Internal Medicine 08/25/19 documented as of this encounter
--- OUTSIDE RECORDS SUMMARY | 2024-12-22 19:21 | XMS_ITS | Encounter Summary ---
Author Organization [employer] Address [address] [facility] 7t [place] [address] Care Team Providers Care Statistician Name Role Phone Ernie Noriega MD Primary Care Provide r Reason for Visit * Reason Comments Foot Swelling Encounter Details Date Type Department Care Team ([facility] st Contact Info) Description 12/21/2024 9:00 AM EDT Office Visit [facility] [address] [place] [address] Marty Haney MD [address] [place] [address] Right foot pain (Primary Dx); Ecchymoses, spontaneous [...] documented in this encounter Progress Notes * Marty Haney MD - 12/21/2024 9:00 AM EDT Subjective Patient ID: Miguelina Julien is a 59 y.o. female. 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 Ice, heat, lidocaine patches, Tylenol, ibuprofen, gabapentin, oxycodone don't help. No trauma, joint swelling, fever, chills, rash, tick bite, family history of gout. Also states that for many years has had spontaneous bruising on diffuse areas, no recent change. Lives with . Not employed. Former smoker. Patient Active Problem List Diagnosis Osteoarthritis of knee Mild persistent asthma History of total knee arthroplasty Grade I hemorrhoids GERD (gastroesophageal reflux disease) Essential hypertension Diverticulosis of sigmoid colon Depressive disorder Cervical radiculopathy Chronic low back pain Carpal tunnel syndrome Hyperlipidemia Shoulder pain, left Neuropathic pain of right lower extremity Preventative health care Pre-diabetes Chronic tension-type headache, not intractable Varicose veins of leg with pain, right Overweight (BMI 25.0-29.9) Dysuria Hematuria Tubular adenoma of colon Ischial pain, right UTI symptoms The following portions of the chart were reviewed this encounter and updated as appropriate: Tobacco Allergies Meds Problems Med Hx Surg Hx Fam Hx Review of Systems Constitutional: Negative for fever. Respiratory: Negative for shortness of breath. Cardiovascular: Negative for chest pain. Gastrointestinal: Negative for abdominal pain. Musculoskeletal: Positive for arthralgias. Skin: Positive for color change. Negative for rash. Neurological: Negative for headaches. Objective Physical Exam Constitutional: Appearance: Normal appearance. HENT: Nose: Nose normal. Eyes: Conjunctiva/sclera: Conjunctivae normal. Pupils: Pupils are equal, round, and reactive to light. Cardiovascular: Rate and Rhythm: Normal rate and regular rhythm. Pulses: Dorsalis pedis pulses are 2+ on the right side. Heart sounds: No murmur heard. Pulmonary: Effort: Pulmonary effort is normal. Breath sounds: Normal breath sounds. Musculoskeletal: General: Normal range of motion. Cervical back: No tenderness. Feet: Comments: Right foot: Minimal swelling, moderate tenderness over the mid dorsum of foot. Full range of motion of toes and ankle. Skin: Findings: No rash. Comments: 2 irregular, oval ecchymosis over extensor surface of right distal forearm. Neurological: Mental Status: She is alert. Gait: Gait is intact. Psychiatric: Mood and Affect: Mood normal. Behavior: Behavior normal. Procedures Assessment/Plan Diagnoses and all orders for this visit: Right foot pain x-rays, lab test ordered. Will call patient with results. If no etiology found, will refer to [facility]. Return to clinic if not improving - XR Foot 3+ Views Right; Future - Uric acid; Future - Lyme Disease Ab with Reflex to Blot (IgG, IgM); Future - CBC auto differential; Future - Prothrombin Time-INR; Future - Partial Thromboplastin Time, Activated (APTT); Future Ecchymoses, spontaneous Lab test pending. Will call patient with results. Has PCP appointment in 3 weeks. documented in this encounter Plan of Treatment Upcoming Encounters Date Type Department Care Team (Late st Contact Info) Description 01/12/2025 3:00 PM EDT Office Visit [facility] [address] [place] [address] Ernie Noriega MD [address] [place] [address] documented as of this encounter Procedures Procedure Name Priority Date/Time Associated Diagnosis Comments LYME DISEASE AB W/REFL TO BLOT (IGG, IGM) Routine 12/21/2024 10:13 AM EDT Right foot pain CBC WITH AUTO DIFFERENTIAL Routine 12/21/2024 10:13 AM EDT Right foot pain APTT Routine 12/21/2024 10:13 AM EDT Right foot pain PROTHROMBIN TIME-INR Routine 12/21/2024 10:13 AM EDT Right foot pain URIC ACID Routine 12/21/2024 10:13 AM EDT Right foot pain XR FOOT 3+ VIEWS RIGHT Routine 12/21/2024 9:42 AM EDT Right foot pain documented in this encounter Results * Partial Thromboplastin Time, Activated (APTT) (12/21/2024 10:13 AM EDT) Partial Thromboplastin Time 33.7 26.0 - 36.8 SEC [facility] Comment:For information rega rding the monitoring of direct thrombininhibitors, please refer to Pharmacy. Blood Venous blood specimen / Unknown 12/21/2024 10:13 AM EDT 12/21/2024 11:45 AM EDT us Marty Haney MD LAB BLOOD ORDERABLES Final Resul t Performing Organization Address [facility] Co de Phone Number [facility] [address] [place] [phone] * Prothrombin Time-INR (12/21/2024 10:13 AM EDT) Pathologist [facility] Prothrombin Time 11.4 10.9 - 12.4 [facility] INTERNATIONAL NORM RATIO 1.0 0.9 - 1.1 [facility] Comment:INTERNATIONAL NORMAL IZED RATIO (INR) REFERENCE RANGES Reference RangeFor patients not on anticoagulant therapy: 0.9 - 1.1INR ranges for oral anticoagulanttherapy:For prevention and treatment of venous thrombosis and pulmonary embolism: 2.0 - 3.0For acute myocardial infarction with aspirin therapy: 2.0 - 3.0For acute myocardial infarction without aspirin therapy: 3.0 - 4.0For patients with mechanical prosthetic heart valves: 2.5 - 3.5 Blood Venous blood specimen / Unknown 12/21/2024 10:13 AM EDT 12/21/2024 11:45 AM EDT us Marty Haney MD LAB BLOOD ORDERABLES Final Resul t Performing Organization Address [facility] Co de Phone Number [facility] [address] [place] [phone] * (ABNORMAL) CBC auto differential (12/21/2024 10:13 AM EDT) Pathologist [facility] White Blood Count 8.1 4.8 - 10.8 X10*3/uL [facility] Red Blood Count 4.14(L) 4.20 - 5.50 X10*6/uL [facility] Hemoglobin 11.6(L) 12.0 - 16.0 g/dl [facility] Hematocrit 37.3 37.0 - 47.0 % [facility] Mean Corpuscular Volume 90.1 80.0 - 98.0 fL [facility] Mean Corpuscular Hemoglobin 28.0 27.0 - 33.0 pg [facility] Mean Corpuscular HGB Conc 31.1 31.0 - 35.0 g/dl [facility] Red Cell Distribution Width 13.6 11.0 - 16.0 % [facility] Platelet Count 312 160 - 400 X10*3/uL [facility] Mean Platelet Volume 10.2 9.4 - 12.3 fL [facility] Neutrophils Percent Auto 55.2 45 - 73 % [facility] Imm Gran Pct Auto 0.4 0.0 - 0.4 % [facility] Lymphocytes Percent Auto 35.1 20 - 40 % [facility] Monocytes Percent Auto 7.3 2 - 11 % [facility] Eosinophils Percent Auto 1.4 0 - 4 % [facility] Basophils Percent Auto 0.6 0 - 2 % [facility] NRBC Pct Auto 0.0 0.0 - 0.2 /100WBC [facility] Neutrophils Absolute Auto 4.5 2.0 - 8.3 x10*3/uL [facility] Imm Gran Abs Auto 0.03 0.00 - 0.03 X10*3/uL [facility] Lymphocytes Absolute Auto 2.9 1.2 - 4.9 X10*3/uL [facility] Monocytes Absolute Auto 0.6 0.1 - 1.2 X10*3/uL [facility] Eosinophils Absolute Auto 0.1 0.0 - 0.4 X10*3/uL [facility] Basophils Absolute Auto 0.1 0.0 - 0.2 X10*3/uL [facility] NRBC Abs Auto 0.000 0.0 - 0.012 X10*3/uL [facility] Blood Venous blood specimen / Unknown 12/21/2024 10:13 AM EDT 12/21/2024 11:45 AM EDT us Marty Haney MD LAB BLOOD ORDERABLES Final Resul t [facility] [address] [place] [phone] [phone] * Lyme Disease Ab with Reflex to Blot (IgG, IgM) (12/21/2024 10:13 AM EDT) Lyme Antibody Screen <0.90 index [facility] Comment:Index Interpretation ----- < 0.90 Negative 0.90-1.09 Equivocal > 1.09 PositiveAs recommended by the Food and Drug Administration(FDA), all samples with positive or equivocalresults in a Borrelia burgdorferi antibody screenwill be tested using a blot method. Positive orequivocal screening test results should not beinterpreted as truly positive until verified as suchusing a supplemental assay (e.g., B. burgdorferi blot).The screening test and/or blot for B. burgdorferiantibodies may be falsely negative in early stagesof Lyme disease, including the period when erythemamigrans is apparent.THIS TEST WAS PERFORMED AT:[facility] [place] [phone] ANTONY MD Lyme Blot [facility] 12/21/2024 10:1 3 AM EDT 12/21/2024 11:45 AM EDT us Marty Haney MD LAB BLOOD ORDERABLES Final Resul t Performing Organization Address City/[facility]/ZIP Co de Phone Number [facility] [address] [place] [phone] * Uric acid (12/21/2024 10:13 AM EDT) [facility] Uric Acid 4.6 2.4 - 5.7 mg/dL [facility] Blood Venous blood specimen / Unknown 12/21/2024 10:13 AM EDT 12/21/2024 11:45 AM EDT us Marty Haney MD LAB BLOOD ORDERABLES Final Resul t Performing Organization Address [facility] Co de Phone Number [facility] [address] [place] [phone] * XR Foot 3+ Views Right (12/21/2024 9:42 AM EDT) Anatomical Region Laterality Modality Lower Extremities, Foot Right Radiogra phic Imaging 12/21/2024 9:42 AM EDT Narrative 12/21/2024 10:03 AM EDT ?[facility] ?[address] ?[place] [address] ?XRay Report ? Signed ? Patient: Julien,Miguelina ?MR#: [id number] ?? 12 ? : 1965 ?Acct:[id number] ? Age/Sex: 59 / F ?ADM Date: 12/21/24 ? Loc: HO.HHCX ? Attending Dr: Marty Haney MD ? Ordering Physician: MARTY HANEY MD ?? Date of Service: 12/21/24 ?? Procedure(s): XR foot RT min 3V ?? Accession Number(s): [id number] ? cc: MARTY HANEY MD ? EXAMINATION: [...] DD/ 0942 ? TD/TT: 12/21/24 0956 ? Radio Frequency Engineer: ? Procedure Note Rene Motley - 12/21/[address] [address] XRay Report Signed Patient: Miguelina Julien#: [id number] [birth year] : 1965Acct:[id number] Age/Sex: 59 / FADM Date: 12/21/24 Loc: HO.HHCX Attending Dr: Marty Haney MD Ordering Physician: MARTY HANEY MD Date of Service: 12/21/24 Procedure(s): XR foot RT min 3V Accession Number(s): [id number] cc: MARTY HANEY MD EXAMINATION: XR FOOT [...] Rodrick Williamson MD 12/21/2024 10:00 AM EDT RP Dictated By: Rodrick Williamson MD Signed By: <Electronically signed by Rodrick Williamson MD in OV> 12/21/24 1000 DD/ 0942 TD/TT: 12/21/24 0956 Radio Frequency Engineer: Marty Haney MD IMG XR PROCEDURES Final Result documented in this encounter Visit Diagnoses Diagnosis Right foot pain- Primary Pain in soft tissues of limb Ecchymoses, spontaneous documented in this encounter Additional Health Concerns Assessment Noted Time PHQ-9 Depression Total Score: 2 01/21/20 24 1:25 PM EDT documented as of this encounter Care Teams Statistician Relationship Specialty Start Date End Date Ernie Noriega MD [address] [place] [phone] PCP - General Internal Medicine 08/25/19 documented as of this encounter
--- OUTSIDE RECORDS SUMMARY | 2024-12-22 19:21 | XMS_ITS | Encounter Summary ---
Author Organization [employer] Address [address] [place] [address] 7t [place] [address] Care Team Providers Care Flat Drier Name Role Phone Ernie Noriega MD Primary Care Provide r Reason for Visit * Reason Onset Date Comments Med Refill 04/24/2024 Encounter Details Date Type Department Care Team ([facility] st Contact Info) Description 04/24/2024 Refill [facility] [address] [place] [address] Ernie Noriega MD [address] [place] [address] Essential hypertension Social History Tobacco Use Types [...] [facility] [address] [place] [address] Ernie Noriega MD [address] [place] [address] documented as of this encounter Visit Diagnoses Diagnosis Essential hypertension Unspecified essential hypertension documented in this encounter Additional Health Concerns Assessment Noted Time PHQ-9 Depression Total Score: 2 01/21/20 24 1:25 PM EDT documented as of this encounter Care Teams Flat Drier Relationship Specialty Start Date End Date Ernie Noriega MD [address] [place] [address] PCP - General Internal Medicine 08/25/19 documented as of this encounter
--- OUTSIDE RECORDS SUMMARY | 2024-12-22 19:21 | XMS_ITS | Encounter Summary ---
Author Organization [employer] Address [address] [place] [address] 7t [place] [address] Care Team Providers Care Railroad Operating Engineer Name Role Phone Ernie Noriega MD Primary Care Provide r Reason for Visit * Reason Onset Date Comments Nurse Triage 12/22/2024 Encounter Details Date Type Department Care Team ([facility] st Contact Info) Description 12/22/2024 Telephone [facility] [address] [place] [address] Ernie Noriega MD [address] [place] [address] Nurse Triage Social History Tobacco Use Types Packs/Day Years [...] encounter Miscellaneous Notes * Telephone Encounter - Mayda Aiken RN - 12/22/2024 10:03 AM EDT Called pt. [facility] deaf interpreter [phone] [address]. Pt. States that she went to walk in yesterday due toher right leg being swollen. Pt. Leg still swollen and painful. Gave pt. Results of Foot Xrays and lab work. Pt. States that it is the front of her foot is painful near her toes, red and swollen. Pt. States she has been taking Oxycodone for pain but, she has run out of the medication. Pt. Has been keeping her foot elevated and icing foot with also using a heating pad but, swelling is not going down. No fever. Pt. Can bear weight on right foot with her walker but, it is painful. Pain scale 8/10. Pt. Is laying on sofa on first floor of home due to not being able walk up stairs. Pt states she had left over Oxycodone that she received from her finger surgery x 2 weeks ago and that helped relieve her pain over the past 2 days but, she ran out and is wondering if she can have a refill until she can come back into office in the next 3 days. Oxycodone 5mg every 8 hors as need for pain. Pt states she was not taking it every 8 hours because she has been trying to take Ibuprofen with no relief. Please call pt. Back with response as to whether she can have a few Oxycodone pills to get her through. Protocol Used: Foot Pain (Adult) Protocol-Based Disposition: See in Office or Video Visit Today- Pt. Will try to go to walk in todayor tomorrow. Positive Triage Question: * Severe pain (e.g., excruciating, unable to do any normal activities) * All higher-acuity triage questions were negative Care Advice Discussed: * Reassurance and Education - Foot Pain * Reassurance and Education - Overuse * Foot Pain - Aggravating Factors * Pain Medicines * Foot Care - Cleaning * Wear Shoes That Fit * Telephone Encounter - Og Sargent - 12/22/2024 9:39 AM EDT Symptom: Leg Swelling - Not From Injury Outcome: Schedule an urgent appointment (within 1 hour) or talk to a nurse or provider soon Reason: Severe leg pain now Please contact pt at [phone]. (Hebrew Speaker) documented in this encounter Plan of Treatment Upcoming Encounters Date Type Department Care Team (Late st Contact Info) Description 01/12/2025 3:00 PM EDT Office Visit [facility] [address] [place] [address] Ernie Noriega MD [address] [place] [address] documented as of this encounter Visit Diagnoses Not on filedocumented in this encounter Additional Health Concerns Assessment Noted Time PHQ-9 Depression Total Score: 2 01/21/20 24 1:25 PM EDT documented as of this encounter Care Teams Railroad Operating Engineer Relationship Specialty Start Date End Date Ernie Noriega MD [address] [place] [address] PCP - General Internal Medicine 08/25/19 documented as of this encounter
--- OUTSIDE RECORDS SUMMARY | 2024-12-22 19:21 | XMS_ITS | Encounter Summary ---
Author Organization [employer] Address [address] [place] [address] 7t [place] [address] Care Team Providers Care Community Outreach Manager Name Role Phone Ernie Noriega MD Primary Care Provide r Reason for Visit * Reason Onset Date Comments Med Refill 10/27/2023 Encounter Details Date Type Department Care Team ([facility] st Contact Info) Description 10/27/2023 Refill [facility] [address] [place] [address] Perlita Woody MD [address] [place] [address] Primary hypertension Social History Tobacco Use Types [...] [facility] [address] [place] [address] Ernie Noriega MD [address] [place] [address] documented as of this encounter Visit Diagnoses Diagnosis Primary hypertension Unspecified essential hypertension documented in this encounter Additional Health Concerns Assessment Noted Time PHQ-9 Depression Total Score: 0 12/02/19 23 2:38 PM EST documented as of this encounter Care Teams Community Outreach Manager Relationship Specialty Start Date End Date Ernie Noriega MD [address] [place] [address] PCP - General Internal Medicine 08/25/19 documented as of this encounter
--- OUTSIDE RECORDS SUMMARY | 2024-12-22 19:21 | XMS_ITS | Encounter Summary ---
Author Organization [employer] Address [address] [place] [address] 7t [place] [address] Care Team Providers Care Certified Public Accountant Name Role Phone Ernie Noriega MD Primary Care Provide r Reason for Visit * Reason Comments Med Refill Encounter Details Date Type Department Care Team ([facility] st Contact Info) Description 07/28/2024 Refill [facility] [address] [place], [place] [phone] Ernie Noriega MD [address] [place] [address] Primary osteoarthritis of knee, unspecified laterality Social [...] 3:00 PM EDT Office Visit [facility] [address] [place] [phone] Ernie Noriega MD [address] [place] [address] documented as of this encounter Visit Diagnoses Diagnosis Primary osteoarthritis of knee, unspecified laterality documented in this encounter Additional Health Concerns Assessment Noted Time PHQ-9 Depression Total Score: 2 01/21/20 24 1:25 PM EDT documented as of this encounter Care Teams Certified Public Accountant Relationship Specialty Start Date End Date Ernie Noriega MD [address] [place] [phone] PCP - General Internal Medicine 08/25/19 documented as of this encounter
--- OUTSIDE RECORDS SUMMARY | 2024-12-22 19:21 | XMS_ITS | Encounter Summary ---
Author Organization [employer] Address [address] [place] [address] 7t [place] [address] Care Team Providers Care Automotive Warranty Administrator Name Role Phone Ernie Noriega MD Primary Care Provide r Reason for Visit * Reason Comments Med Refill Encounter Details Date Type Department Care Team ([facility] st Contact Info) Description 11/20/2023 Refill [facility] [address] [place], [place] [phone] Ernie Noriega MD [address] [place] [address] Pain Social History Tobacco Use Types Packs/Day [...] 3:00 PM EDT Office Visit [facility] [address] [place] [address] Ernie Noriega MD [address] [place] [address] documented as of this encounter Visit Diagnoses Diagnosis Pain Generalized pain documented in this encounter Additional Health Concerns Assessment Noted Time PHQ-9 Depression Total Score: 0 12/02/19 23 2:38 PM EST documented as of this encounter Care Teams Automotive Warranty Administrator Relationship Specialty Start Date End Date Ernie Noriega MD [address] [place] [address] PCP - General Internal Medicine 08/25/19 documented as of this encounter
--- OUTSIDE RECORDS SUMMARY | 2024-12-22 19:21 | XMS_ITS | Encounter Summary ---
Author Organization [employer] Address [address] [place] [address] 7t [place] [address] Care Team Providers Care Nurse Recruiter Name Role Phone Ernie Noriega MD Primary Care Provide r Reason for Visit * Reason Comments Med Refill Encounter Details Date Type Department Care Team ([facility] st Contact Info) Description 08/28/[address] [facility] [address] [place] [address] Perlita Woody MD [address] [place] [address] Primary hypertension Social History Tobacco Use Types [...] PM EDT Office Visit [facility] [address] [place] [address] Ernie Noriega MD [address] [place] [address] documented as of this encounter Visit Diagnoses Diagnosis Primary hypertension Unspecified essential hypertension documented in this encounter Additional Health Concerns Assessment Noted Time PHQ-9 Depression Total Score: 0 12/02/19 23 2:38 PM EST documented as of this encounter Care Teams Nurse Recruiter Relationship Specialty Start Date End Date Ernie Noriega MD [address] [place] [address] PCP - General Internal Medicine 08/25/19 documented as of this encounter
--- OUTSIDE RECORDS SUMMARY | 2024-12-22 19:21 | XMS_ITS | Encounter Summary ---
Author Organization [employer] Address [address] [place] [address] 7t [place] [address] Care Team Providers Care Engine Hostler Name Role Phone Ernie Noriega MD Primary Care Provide r Reason for Visit * Reason Onset Date Comments Med Refill 10/25/2023 Encounter Details Date Type Department Care Team ([facility] st Contact Info) Description 10/25/2023 Refill [facility] [address] [place] [address] Perlita Woody MD [address] [place] [address] Primary hypertension Social History Tobacco Use Types [...] Visit [facility] [address] [place] [address] Ernie Noriega MD [address] [place] [address] documented as of this encounter Visit Diagnoses Diagnosis Primary hypertension Unspecified essential hypertension documented in this encounter Additional Health Concerns Assessment Noted Time PHQ-9 Depression Total Score: 0 12/02/19 23 2:38 PM EST documented as of this encounter Care Teams Engine Hostler Relationship Specialty Start Date End Date Ernie Noriega MD [address] [place] [address] PCP - General Internal Medicine 08/25/19 documented as of this encounter
--- OUTSIDE RECORDS SUMMARY | 2024-12-22 19:21 | XMS_ITS | Encounter Summary ---
Author Organization [employer] Address [address] [place] [address] 7t [place] [address] Care Team Providers Care Dairy Products Maker Name Role Phone Ernie Noriega MD Primary Care Provide r Reason for Referral * Consultation (Routine) - Authorized Specialty Diagnoses / Procedures Referred By Contac t Referred To Contact Orthopaedic Surgery Diagnoses Right foot pain Marty Soto MD [address] [place] [phone] Phone: tel: fax: [facility] [address] [place] [address] Phone: tel: Referral ID Status Reason Start Date Expiration Date Visits Requested Visits Authorized [id number] Authorized Specialty Services Required 12/22/2024 12/22/2025 6 6 Encounter Details Date Type Department Care Team (Late st Contact Info) Description 12/22/2024 Orders Only [facility] [address] [place] [phone] Marty Soto MD [address] [place] [phone] Right foot pain (Primary Dx) Social History Tobacco Use Types [...] Description 01/12/2025 3:00 PM EDT Office Visit [facility] [address] [place] [address] Ernie Noriega MD [address] [place] [address] Scheduled Referrals Name Type Priority Associated Diagnoses Order Schedule Referral to Orthopaedic Surgery Outpatient Referral Routine Right foot pain Expected: 12/22/2024 (Approximate), Expires: 12/22/2025 documented as of this encounter Visit Diagnoses Diagnosis Right foot pain- Primary Pain in soft tissues of limb documented in this encounter Additional Health Concerns Assessment Noted Time PHQ-9 Depression Total Score: 2 01/21/20 24 1:25 PM EDT documented as of this encounter Care Teams Dairy Products Maker Relationship Specialty Start Date End Date Ernie Noriega MD [address] [place] [phone] PCP - General Internal Medicine 08/25/19 documented as of this encounter
--- OUTSIDE RECORDS SUMMARY | 2024-12-22 19:21 | XMS_ITS | Encounter Summary ---
Author Organization [employer] [facility] Address [address] [place] [address] 7 [place] [address] Care Team Providers Care Egg Gatherer Name Role Phone Ernie Noriega MD Primary Care Provide r Encounter Details Date Type Department Care Team (Late st Contact Info) Description 02/18/2023 Abstract [facility] [address] [place] [phone] [phone] Ernie Noriega MD [address] [place] [address] [phone] Social History Tobacco Use Types Packs/Day Years [...] PM EDT Office Visit [facility] [address] [place] [address] [phone] Ernie Noriega MD [address] [place] [address] [phone] documented as of this encounter Procedures Procedure [...] documented as of this encounter Care Teams Egg Gatherer Relationship Specialty Start Date End Date Ernie Noriega MD [address] [place] [phone] PCP - General Internal Medicine 08/25/19 documented as of this encounter
--- OUTSIDE RECORDS SUMMARY | 2024-12-22 19:21 | XMS_ITS | Encounter Summary ---
Author Organization [employer] Address [address] [place] [address] 7t [place] [address] Care Team Providers Care Mainframe Systems Programmer Name Role Phone Ernie Noriega MD Primary Care Provide r Reason for Visit * Reason Onset Date Comments Med Refill 08/12/2024 Encounter Details Date Type Department Care Team ([facility] st Contact Info) Description 08/12/2024 Refill [facility] [address] [place] [address] Ilsa Robison, ANP [address] [place] [address] Primary osteoarthritis of knee, unspecified laterality Social [...] 01/12/2025 3:00 PM EDT Office Visit [facility] [address] [place] [phone] Ernie Noriega MD [address] [place] [phone] documented as of this encounter Visit Diagnoses Diagnosis Primary osteoarthritis of knee, unspecified laterality documented in this encounter Additional Health Concerns Assessment Noted Time PHQ-9 Depression Total Score: 2 01/21/20 24 1:25 PM EDT documented as of this encounter Care Teams Mainframe Systems Programmer Relationship Specialty Start Date End Date Ernie Noriega MD [address] [place] [phone] PCP - General Internal Medicine 08/25/19 documented as of this encounter
--- OUTSIDE RECORDS SUMMARY | 2024-12-22 19:21 | XMS_ITS | Encounter Summary ---
Author Organization [employer] Address [address] [place] [address] 7t [place] [address] Care Team Providers Care Assembler For Puller Over Hand Name Role Phone Ernie Noriega MD Primary Care Provide r Reason for Visit * Reason Onset Date Comments Med Refill 11/01/2024 Encounter Details Date Type Department Care Team ([facility] st Contact Info) Description 11/01/2024 Refill [facility] [address] [place] [address] Sugar Mitchell MD [address] [place] [address] Seasonal allergies Social History Tobacco Use Types [...] Visit [facility] [address] [place] [address] Ernie Noriega MD [address] [place] [address] documented as of this encounter Visit Diagnoses Diagnosis Seasonal allergies Allergic rhinitis, cause unspecified documented in this encounter Additional Health Concerns Assessment Noted Time PHQ-9 Depression Total Score: 2 01/21/20 24 1:25 PM EDT documented as of this encounter Care Teams Assembler For Puller Over Hand Relationship Specialty Start Date End Date Ernie Noriega MD [address] [place] [address] PCP - General Internal Medicine 08/25/19 documented as of this encounter
--- OUTSIDE RECORDS SUMMARY | 2024-12-22 19:21 | XMS_ITS | Encounter Summary ---
Author Organization [employer] Address [address] [place] [address] 7t [place] [address] Care Team Providers Care Reversing Mill Roller Name Role Phone Ernie Noriega MD Primary Care Provide r Reason for Visit * Reason Onset Date Comments Med Refill 06/25/2024 Encounter Details Date Type Department Care Team ([facility] st Contact Info) Description 06/25/2024 Refill [facility] [address] [place] [address] Ernie Noriega MD [address] [place] [address] Chronic midline low back pain without sciatica; [...] [facility] [address] [place] [address] Ernie Noriega MD [address] [place] [address] documented as of this encounter Visit Diagnoses Diagnosis Chronic midline low back pain without sciatica Cervical radiculopathy Brachial neuritis or radiculitis nos documented in this encounter Additional Health Concerns Assessment Noted Time PHQ-9 Depression Total Score: 2 01/21/20 24 1:25 PM EDT documented as of this encounter Care Teams Reversing Mill Roller Relationship Specialty Start Date End Date Ernie Noriega MD [address] [place] [address] PCP - General Internal Medicine 08/25/19 documented as of this encounter
--- OUTSIDE RECORDS SUMMARY | 2024-12-22 19:21 | XMS_ITS | Encounter Summary ---
Author Organization [employer] Address [address] [place] [address] 7t [place] [address] Care Team Providers Care Gold Leaf Layer Name Role Phone Ernie Noriega MD Primary Care Provide r Reason for Visit * Reason Onset Date Comments Med Refill 08/13/2024 Encounter Details Date Type Department Care Team ([facility] st Contact Info) Description 08/13/2024 Refill [facility] [address] [place] [address] Ernie Noriega MD [address] [place] [address] Seasonal allergies Social History Tobacco Use Types [...] Office Visit [facility] [address] [place] [phone] Ernie Noriega MD [address] [place] [address] documented as of this encounter Visit Diagnoses Diagnosis Seasonal allergies Allergic rhinitis, cause unspecified documented in this encounter Additional Health Concerns Assessment Noted Time PHQ-9 Depression Total Score: 2 01/21/20 24 1:25 PM EDT documented as of this encounter Care Teams Gold Leaf Layer Relationship Specialty Start Date End Date Ernie Noriega MD [address] [place] [id number] PCP - General Internal Medicine 08/25/19 documented as of this encounter
--- OUTSIDE RECORDS SUMMARY | 2024-12-22 19:22 | XMS_ITS | Encounter Summary ---
Author Organization [employer] Address [address] [place] [address] 7t [place] [address] Care Team Providers Care Sweatband Cutting Machine Operator Name Role Phone Ernie Noriega MD Primary Care Provide r Reason for Visit * Reason Onset Date Comments Med Refill 09/28/2024 Encounter Details Date Type Department Care Team ([facility] st Contact Info) Description 09/28/[address] [facility] [address] [place] [address] Ernie Noriega MD [address] [place] [address] Primary osteoarthritis of knee, unspecified laterality Social [...] [facility] [address] [place] [address] Ernie Noriega MD [address] [place] [address] documented as of this encounter Visit Diagnoses Diagnosis Primary osteoarthritis of knee, unspecified laterality documented in this encounter Additional Health Concerns Assessment Noted Time PHQ-9 Depression Total Score: 2 01/21/20 24 1:25 PM EDT documented as of this encounter Care Teams Sweatband Cutting Machine Operator Relationship Specialty Start Date End Date Ernie Noriega MD [address] [place] [phone] PCP - General Internal Medicine 08/25/19 documented as of this encounter
--- OUTSIDE RECORDS SUMMARY | 2024-12-22 19:22 | XMS_ITS | Clinical Summary ---
Author Organization [employer] Address [address] [place] [address] [address] [place] [address] Care Team Providers Care Measurement Department Chief Clerk Name Role Phone Ernie Noriega MD [...] DAY 75 mL 1 12/17/19 25 Active oxyCODONE (Roxicodone) 5 MG immediate release tablet Take 5 mg by mouth every 6 (six) hours if needed. 10/20/19 25 Active omeprazole (PriLOSEC) [address] [...] has chronic low back pain, treated at [facility] by Dr Clint Newberry. Hx of AP fusion from L4-sacrum in 2003. She has received epidural injections initially with good results but that is no longer the case. Pt developed lumbar spinal stenosis and on 01/14/2021 underwent Posterior neural foraminotomy L2-L3 by Dr. Bailey. She was admitted to [facility] from 11/13/2022 until 11/20/2022 due to worsening low back pain with radiation to her right thigh and right leg after an experimental thoracic spinal stimulation procedure at the surgery center [facility] (She was referred there by [facility]). Procedure was aborted after pt experienced [...] does not want to follow-up with [place] d/t the severe pain she experienced with [...] care of Orthopaedic specialist Dr Lees at [facility]. Pt would like to hold off on procedure until her back feels better. I contacted the office of Orthopaedic surgeon who stated this was an elective procedure and was ok with delaying until pt felt ready Assessment & Plan (12/04/2022 8:31 AM EST): Pt had initially come in for a Preoperative exam. Under the care of Orthopaedic specialist Dr Lees at [facility]. Pt would like to hold off [...] has a [employer] Card recommended by [facility] treating physician. pt utilizes the liquid form. She is no longer under the care of [facility] I had been prescribing tramadol to [...] Dr Soto who referred her back to [facility] for back pain History of total [...] Under the care of Dr Almeida at [facility]. see med list for current psychiatric meds, no changes. she has been stable they have requested me to continue his medications for insomnia, Ambien and Benadryl Chronic low back pain 05/12/2012 Assessment & Plan (10/13/2024 3:42 PM EST): Pt here for a f/u Hx of chronic low back pain, treated in the past at [facility] by Dr Clint Newberry. Hx of AP fusion from L4-sacrum in 2003. She received epidural injections with good results in the past. but that was no longer the case. Pt developed lumbar spinal stenosis and on 01/14/2021 underwent Posterior neural foraminotomy L2-L3by Dr. Bailey. She was admitted to [facility] from 11/13/2022 until 11/20/2022 due to worsening low back pain with radiation to her right thigh and right leg after an experimental thoracic spinal stimulation procedure at the surgery center [facility] (She was referred there by [facility]). Procedure [...] pain, she had been receiving treatment at [facility] by Dr Clint Newberry. Hx of AP fusion from L4-sacrum in 2003. She has received epidural injections with good results in the past. but that was no longer the case. Pt developed lumbar spinal stenosis and on 01/14/2021 underwent Posterior neural foraminotomy L2-L3by Dr. Bailey. Patient is here for a follow up. She was recently admitted to [facility] from 11/13/2022 until 11/20/2022 due to worsening low back pain with radiation to her right thigh and right leg after an experimental thoracic spinal stimulation procedure at the surgery center [facility] (She was referred there by [facility]). Procedure was aborted after pt experienced [...] does not want to follow-up with [place] d/t the severe pain she experienced with [...] pain, she had been receiving treatment at [facility] by Dr Clint Newberry. Hx of AP fusion from L4-sacrum in 2003. She has received epidural injections with good results in the past. but that was no longer the case. Pt developed lumbar spinal stenosis and on 01/14/2021 underwent Posterior neural foraminotomy L2-L3by Dr. Bailey. She was admitted to [facility] from 11/13/2022 until 11/20/2022 due to worsening low back pain with radiation to her right thigh and right leg after an experimental thoracic spinal stimulation procedure at the surgery center [facility] (She was referred there by [facility]). Procedure was aborted after pt experienced [...] does not want to follow-up with [place] d/t the severe pain she experienced with [...] pain, she had been receiving treatment at [facility] by Dr Clint Newberry. Hx of AP fusion from L4-sacrum in 2003. She has received epidural injections with good results in the past. but that was no longer the case. Pt developed lumbar spinal stenosis and on 01/14/2021 underwent Posterior neural foraminotomy L2-L3by Dr. Bailey. Patient is here for a follow up. She was recently admitted to [facility] from 11/13/2022 until 11/20/2022 due to worsening low back pain with radiation to her right thigh and right leg after an experimental thoracic spinal stimulation procedure at the surgery [facility] (She was referred there by [facility]). Procedure was aborted after pt experienced [...] does not want to follow-up with [place] d/t the severe pain she experienced with [...] Encounters Date Type Department Care Team Description 12/22/2024 Telephone [facility] [address] [place] [phone] Marty Soto MD Results 12/22/2024 Orders Only [facility] [address] [place] [phone] Marty Soto MD Right foot pain (Primary Dx) 12/22/2024 Telephone [facility] [address] [place] [phone] Ernie Noriega MD Nurse Triage 12/21/2024 9:00 AM EDT Office Visit [facility] [address] [place] [phone] Marty Soto MD Right foot pain (Primary Dx); Ecchymoses, spontaneous 12/15/2024 Refill [facility] [address] [place] [address] Ernie Noriega MD 12/09/2024 Orders Only [facility] External Provider, [facility] 11/28/2024 Refill [facility] [address] [place] [address] Ernie Noriega MD Gastritis without bleeding, unspecified chronicity, unspecified gastritis type 11/18/2024 Refill [facility] [address] [place] [address] Ernie Noirega MD Primary hypertension 11/17/2024 Refill [facility] [address] [place] [address] Ernie Noriega MD Seasonal allergies 11/14/2024 Refill [facility] [address] [place] [address] Ernie Noriega MD Primary osteoarthritis of knee, unspecified laterality 11/07/2024 Refill [facility] [address] [place] [address] Ernie Noriega MD Chronic midline low back pain without sciatica 11/01/2024 Refill [facility] [address] [place] [address] Sugar Mitchell MD Seasonal allergies 11/01/2024 Refill [facility] [address] [place] [address] Sugar Mitchell MD Seasonal allergies 10/25/2024 1:20 PM EST Office Visit [facility] [address] [place] [address] Ofelia Melgar MD UTI symptoms 10/25/2024 Refill [facility] [address] [place] [address] Ernie Noriega MD Chronic midline low back pain without sciatica 10/25/2024 Telephone [facility] [address] [place] [address] Ernie Noriega MD Med Refill 10/25/2024 Travel 10/17/2024 Refill [facility] [address] [place] [address] Ernie Noriega MD Primary osteoarthritis of knee, unspecified laterality 10/16/2024 Refill [facility] [address] [place] [address] Sugar Mitchell MD 10/14/2024 Telephone [facility] [address] [place] [address] Ernie Noriega MD Med Refill 10/13/2024 3:00 PM EST Office Visit [facility] [place] [address] Ernie Noriega MD Essential hypertension (Primary Dx); Mild persistent asthma without complication; Chronic midline low back pain without sciatica 10/13/2024 Refill [facility] [address] [place] [address] Ernie Noriega MD Chronic midline low back pain without sciatica 10/13/2024 Travel 10/12/2024 Travel 10/12/2024 Refill [facility] [address] [place] [address] Ernie Noriega MD Primary osteoarthritis of knee, unspecified laterality 10/10/2024 Refill [place] [address] Ernie Noriega MD Pain 10/06/2024 Travel 10/03/2024 Telephone [facility] [place] [address] Ernie Noriega MD 10/03/2024 Patient Outreach [facility] [place] [address] Ernie Noriega MD Pre-visit Planning (SDOH screening was completed on 01/21/2024) 09/28/2024 Telephone [facility] [place] [address] Ernie Noriega MD Med Refill 09/28/2024 Refill [facility] [address] [place] [address] Ernie Noriega MD Primary osteoarthritis of knee, unspecified laterality 09/28/2024 Refill [facility] [address] [place] [address] Ernie Noriega MD Chronic midline low back pain without sciatica; Cervical radiculopathy 09/27/2024 Refill [facility] [address] [place] [address] Ernie Noriega MD Chronic midline low back [...] Visit [facility] [address] [place] [address] Ernie Noriega MD [address] [place] [address] Health Maintenance Due Date Last Done Comments [...] Procedure Name Priority Date/Time Associated Diagnosis Comments APTT Routine 12/21/2024 10:13 AM EDT Right foot pain PROTHROMBIN TIME-INR Routine 12/21/2024 10:13 AM EDT Right foot pain CBC WITH AUTO DIFFERENTIAL Routine 12/21/2024 10:13 AM EDT Right foot pain LYME DISEASE AB W/REFL TO BLOT (IGG, [...] ZZZ HISTORICAL HPV E6/E7 RFLX SERGIO 16 18 Routine 12/19/2020 3:40 PM EST from Last 3 Months or Most Recently Relevant to Health Maintenance Results * Lyme Disease Ab with Reflex to Blot (IgG, IgM) (12/21/2024 10:13 AM EDT) Lyme Antibody Screen <0.90 index [facility] Comment:Index Interpretation ----- < 0.90 Negative [...] when erythemamigrans is apparent.THIS TEST WAS PERFORMED AT:[facility] [place] [phone] ANTONY MD Lyme Blot TNP [facility] 12/21/2024 10:1 3 AM EDT 12/21/2024 11:45 AM EDT us Marty Soto MD LAB BLOOD ORDERABLES Final Resul t [facility] [address] [place] [address] [phone] * (ABNORMAL) CBC auto differential (12/21/2024 10:13 AM EDT) White Blood Count 8.1 4.8 - 10.8 X10*3/uL [facility] Red Blood Count 4.14(L) 4.20 - 5.50 X10*6/uL [facility] Hemoglobin 11.6(L) 12.0 - 16.0 g/dl [facility] Hematocrit 37.3 37.0 - 47.0 % [facility] Mean Corpuscular Volume 90.1 80.0 - 98.0 fL [facility] Mean Corpuscular Hemoglobin 28.0 27.0 - 33.0 pg [facility] Mean Corpuscular HGB Conc 31.1 31.0 - 35.0 g/dl [facility] Red Cell Distribution Width 13.6 11.0 - 16.0 % [facility] Platelet Count 312 160 - 400 X10*3/uL [facility] Mean Platelet Volume 10.2 9.4 - 12.3 fL [facility] Neutrophils Percent Auto 55.2 45 - 73 % [facility] Imm Gran Pct Auto 0.4 0.0 - 0.4 % [facility] Lymphocytes Percent Auto 35.1 20 - 40 % [facility] Monocytes Percent Auto 7.3 2 - 11 % [facility] Eosinophils Percent Auto 1.4 0 - 4 % [facility] Basophils Percent Auto 0.6 0 - 2 % [facility] NRBC Pct Auto 0.0 0.0 - 0.2 /100WBC [facility] Neutrophils Absolute Auto 4.5 2.0 - 8.3 x10*3/uL [facility] Imm Gran Abs Auto 0.03 0.00 - 0.03 X10*3/uL [facility] Lymphocytes Absolute Auto 2.9 1.2 - 4.9 X10*3/uL [facility] Monocytes Absolute Auto 0.6 0.1 - 1.2 X10*3/uL [facility] Eosinophils Absolute Auto 0.1 0.0 - 0.4 X10*3/uL [facility] Basophils Absolute Auto 0.1 0.0 - 0.2 X10*3/uL [facility] NRBC Abs Auto 0.000 0.0 - 0.012 X10*3/uL [facility] Blood Venous blood specimen / Unknown 12/21/2024 10:13 AM EDT 12/21/2024 11:45 AM EDT us Marty Soto MD LAB BLOOD ORDERABLES Final Resul t Performing Organization Address [facility] Co de Phone Number [facility] [address] [place] [phone] * Partial Thromboplastin Time, Activated (APTT) (12/21/2024 10:13 AM EDT) Partial Thromboplastin Time 33.7 26.0 - 36.8 SEC [facility] Comment:For information rega rding the monitoring of direct thrombininhibitors, please refer to Pharmacy. Blood Venous blood specimen / Unknown 12/21/2024 10:13 AM EDT 12/21/2024 11:45 AM EDT us Marty Soto MD LAB BLOOD ORDERABLES Final Resul t Performing Organization Address [facility]/ZIP Co de Phone Number [facility] [address] [place] [phone] [phone] * Prothrombin Time-INR (12/21/2024 10:13 AM EDT) Prothrombin Time 11.4 10.9 - 12.4 SEC [facility] INTERNATIONAL NORM RATIO 1.0 0.9 - 1.1 [facility] Comment:INTERNATIONAL NORMAL IZED RATIO (INR) REFERENCE [...] EDT 12/21/2024 11:45 AM EDT us Marty Soto MD LAB BLOOD ORDERABLES Final Resul t Performing Organization Address [facility] de Phone Number [facility] [address] [place] [phone] * Uric acid (12/21/2024 10:13 AM EDT) Uric Acid 4.6 2.4 - 5.7 mg/dL [facility] Blood Venous blood specimen / Unknown 12/21/2024 10:13 AM EDT 12/21/2024 11:45 AM EDT us Marty Soto MD LAB BLOOD ORDERABLES Final Resul t Performing Organization Address [facility] de Phone Number [facility] [address] [place] [phone] * XR Foot 3+ Views Right (12/21/2024 9:42 AM EDT) Anatomical Region Laterality Modality Lower Extremities, Foot Right Radiogra phic Imaging 12/21/2024 9:42 AM EDT Narrative 12/21/2024 10:03 AM EDT ?[facility] ?[address] ?[place] [address] ?XRay Report ? Signed ? Patient: Julien,[place] ?MR#: [id number] ?? 12 ? : 1965 ?Acct:[id number] ? Age/Sex: 59 / F ?ADM Date: 03/12/25 ? Loc: HO.HHCX ? Attending Dr: Marty Soto MD ? Ordering Physician: MARTY SOTO MD ?? Date of Service: 12/21/24 ?? Procedure(s): XR foot RT min 3V ?? Accession Number(s): [id number] ? cc: MARTY SOTO MD ? EXAMINATION: [...] DD/ 0942 ? TD/TT: 12/21/24 0956 ? [facility] Presser: ? Procedure Note Tiesha, Image - 12/21/2024 [place] [address] XRay Report Signed Patient: Miguelina JulienMR#: [id number] 12 : 1965Acct:[id number] Age/Sex: 59 / FADM Date: 12/21/24 Loc: HO.HHCX Attending Dr: Marty Soto MD Ordering Physician: MARTY SOTO MD Date of Service: 12/21/24 Procedure(s): XR foot RT min 3V Accession Number(s): [id number] cc: MARTY SOTO MD EXAMINATION: XR FOOT [...] 12/21/24 1000 DD/ 0942 TD/TT: 12/21/24 0956 [facility] Presser: us Marty Soto MD IMG XR PROCEDURES Final Result * FL Guidance in OR (12/09/2024 9:08 AM EST) Anatomical Region Laterality Modality X-Ray Angiograph y 12/09/2024 9:08 AM EST Narrative 12/09/2024 9:48 AM EST ? [facility] ?[address] ?[place] [address] ? Fluoroscopy Report ? Signed ? Patient: Julien,[place] ?MR#: [id number] ?? 12 ? : 1965 ?Acct:[id number] ? Age/Sex: 59 / F ?ADM Date: 12/09/24 ? Loc: HO.SSS ? Attending Dr: Aldo Casas MD ? Ordering Physician: Aldo Casas MD ?? Date of Service: 12/09/24 ?? Procedure(s): FL guidance in OR ?? Accession Number(s): [id number] ? cc: Ofelia Melgar MD; Aldo Casas [...] DD/ 0908 ? TD/TT: 12/09/24 0930 ? Rouge Presser: ? Procedure Note Donotmonater, Image - 12/09/[address] [address] Fluoroscopy Report Signed Patient: Miguelina JulienMR#: [id number] 12 : 1965Acct:[id number] Age/Sex: 59 / FADM Date: 12/09/24 Loc: HO.[facility] Attending Dr: Aldo Casas MD Ordering Physician: Aldo Casas MD Date of Service: 12/09/24 Procedure(s): FL guidance in OR Accession Number(s): [id number] cc: Ofelia Melgar MD; Aldo Casas MD [...] in OV> 12/09/24944 DD/ 7 TD/TT: 12/09/24929 [facility] Presser: us [facility] External Provider IMG IR PROCEDURES Final [...] (10/25/2024 12:00 AM EST) Color Urine Yellow [facility] Appearance Urine Clear [facility] PH 5.5 5.0 - 9.0 [facility] Glucose Urine UA Negative Negative mg/dL [facility] Urine Blood Negative Negative [facility] Specific [place] - Urine 1.015 1.005 - 1.025 [facility] Urine Protein Negative Neg-Trace mg/dL [facility] Urine Ketones Negative Negative mg/dL [facility] Nitrite Urine Negative Negative [facility] Leukocyte Esterase Urine Negative Negative [facility] RBC Urine 0-2 0 - 2 /HPF [facility] Urine WBC 0-5 0 - 5 /HPF [facility] Urine Squamous Epithelial Cell 0-2 0 - 2 /HPF [facility] Urine Bacteria None Seen None Seen [facility] Hyaline Casts, Urine 0-2 0 - 2 /LPF [facility] Urine 10/25/2024 10/25/2024 Narrative [facility] - 10/25/2024 5:35 PM EST Urine, Clean Catch Ofelia Melgar MD LAB URINE ORDERABLES Final Result [facility] [address] [place] [phone] [phone] * XR Lumbar Spine Complete 4+ Views (09/23/2024 2:10 PM EST) Anatomical Region Laterality Modality Spine, L-spine Radiographic Anabella ging 09/23/2024 2:10 PM EST Narrative 11/10/2024 9:14 AM EST ? [facility] ? [address] ?[place] [address] ?XRay Report ? Signed ? Patient: Julien,Miguelina ?MR#: [id number] ?? 12 ? : 1965 ?Acct:[id number] ? Age/Sex: 59 / F ?ADM Date: 09/23/24 ? Loc: HO.HOSX ? Attending Dr: Tr WILDER ? Ordering Physician: Tr Soliman ?? Date of Service: 09/23/24 ?? Procedure(s): XR lumbar spine 4V min ?? Accession Number(s): [id number] ? cc: Tr Soliman; Ernie Merritt MD [...] ?? significant subluxation with flexion or extension. Mfrl-an-iyaitagd ?? stool burden. ? XR/XR lumbar spine 4V min ?? IMPRESSION: ?? 1. Postsurgical changes at L3-S1 without evidence of hardware ?? complication. ? 2. Grade 1 retrolisthesis of T12 on L1 and straightening of the normal ?? lumbar lordosis, unchanged. No significant subluxation with flexion or ?? extension. ? 3. Multilevel degenerative disc disease, most prominent at L1-L3. ? 4. Edss-zs-agscewkl stool burden. No significant subluxation with ?? flexion or extension. ? Electronically signed by: ??Luc Lieberman MD ??11/10/2024 09:11 AM EST ?? RP ? Dictated By: ?Luc Lieberman MD ? Signed By: ?<Electronically signed by Luc Lieberman MD in OV> ?11/10/24 0911 ? DD/ 1410 ? TD/TT: 09/23/24 1415 ? Rouge Presser: ? Procedure Note Donsomter, Image - 11/10/2024 [facility] [address] [place] [address] Drive [address] [place] [address] XRay Report Signed Patient: Miguelina Julien#: [id number] 12 : 1965Acct:[id number] Age/Sex: 59 / FADM Date: 09/23/24 Loc: [facility] Attending Dr: Tr WILDER Ordering Physician: Tr Soliman Date of Service: 09/23/24 Procedure(s): XR lumbar spine 4V min Accession Number(s): [id number] cc: Tr Soliman; Ernie Merritt MD EXAMINATION: [...] No significant subluxation with flexion or extension. Fric-of-jttfhhcl stool burden. XR/XR lumbar spine 4V min IMPRESSION: 1. Postsurgical changes at L3-S1 without evidence of hardware complication. 2. Grade 1 retrolisthesis of T12 on L1 and straightening of the normal lumbar lordosis, unchanged. No significant subluxation with flexion or extension. 3. Multilevel degenerative disc disease, most prominent at L1-L3. 4. Phnc-yr-jjsbddqd stool burden. No significant subluxation with flexion or extension. Electronically signed by: Luc Lieberman MD 11/10/2024 09:11 AM EST Dictated By: Luc Lieberman MD Signed By: <Electronically signed by Luc Lieberman MD in OV> 11/10/24 0911 DD/ 1410 TD/TT: 09/23/24 1415 Rouge Presser: [facility] External Provider IMG XR PROCEDURES Edited Result - Final * (ABNORMAL) Colonoscopy (03/18/2024) Colonoscopy Abnormal( A) Normal Comment:Tubular Adenoma 03/18/2024 Historical Provider HEALTH MAINTENANCE Final Result * BI Mammogram Screening Tomosynthesis Bilateral (01/01/2024 8:45 AM EDT) Anatomical Region Laterality Modality Breast Bilateral Mammography 01/01/2024 8:45 AM EDT Narrative 01/19/2024 10:06 AM EDT ? [facility] ? [address] ?[place] [address] ? Mammography Report ? Signed ? Patient: Juan Pablo Taylor,Miguelina ?MR#: ?? [id number] ? : 1965 ?Acct:[id number] ? Age/Sex: 58 / F ?ADM Date: //24 ? Loc: HO.MAMMO ? Attending Dr: Ernie Merritt MD ? Ordering Physician: Ernie Merritt MD ?Resu ?? lts: 2Benign Findings ? Date of Service: 01/01/24 ?Follow Up: 1 Year From Orig ?? inal Mammogram ? Procedure(s): MM tomosynthesis screening BI ?? Accession Number(s): [id number] ? cc: Ernie Merritt MD ? EXAMINATION: [...] 1003 ? DD/ 0845 ? TD/TT: ? Rouge Presser: ? Procedure Note Donotmonater, Image - 01/19/2024 [place] [facility] [address] [place] [address] Mammography Report Signed Patient: Miguelina Watson#: [id number] : 1965Acct:[id number] Age/Sex: 58 / FADM Date: 01/01/24 Loc: HO.MAMMO Attending Dr: Ernie Merritt MD Ordering Physician: Ernie Merritt MDResu lts: 2Benign Findings Date of Service: 01/01/24Follow Up: 1 Year From Orig inal Mammogram Procedure(s): MM tomosynthesis screening BI Accession Number(s): [id number] cc: Ernie Merritt MD EXAMINATION: MM SCREENING [...] in OV> 01/19/24 1003 DD/ 0845 TD/TT: Rouge Presser: Ernie Ro MD IMG BI PROCEDURES Fin al Result * (ABNORMAL) Lipid Panel with Reflex to Direct LDL (11/07/2022 8:24 AM EST) Cholesterol, Total 235(H) <200 mg/dL [facility] HDL Cholesterol 64 > OR = 50 mg/dL [facility] Triglycerides 252(H) <150 mg/dL [facility] Comment: If a non-fasting specimen was collected, consider repeat triglyceride testing on a fasting specimen if clinically indicated. Bebo et al. J. of Clin. Lipidol. 2015;9:129-169. LDL Cholesterol 132(H) mg/dL (calc) [facility] Comment: Reference range: <100 Desirable range <100 mg/dL for primary prevention; ?? <70 mg/dL for patients with CHD or diabetic patients with > or = 2 CHD risk factors. LDL-C is now calculated using the Jordan-Dawn calculation, which is a validated novel method providing better accuracy than the Friedewald equation in the estimation of LDL-C. Jordan SS et al. BHARAT. 2013;310(19): 8147-3800 (http://education.Engine Yard.MailMag/faq/OPV445) Chol/HDLC Ratio 3.7 <5.0 (calc) [facility] Non-HDL Cholesterol 171(H) <130 mg/dL (calc) [facility] Comment: For patients with diabetes plus 1 major ASCVD risk factor, treating to a non-HDL-C goal of <100 mg/dL (LDL-C of <70 mg/dL) is considered a therapeutic option. 11/07/2022 8:24 AM EST 11/07/2022 8:25 AM EST Narrative [facility] - 11/08/2022 12:51 AM EST FASTING:YES FASTING: YES Ernie Ro MD LAB BLOOD ORDERABLES Final Result Performing Organization Address City/[facility]/ZIP Co de Phone Number [address], [place] [address] [employer] [place] [employer] [address] [place] [address], (Nl2) [place] [address] * Hepatitis C Antibody with Reflex to HCV, RNA, Quantitative, Real-Time PCR (11/07/2022 8:24 AM EST) [facility] Hepatitis C Antibody NON-REACT TAMARA NON-REACT TAMARA [facility] [place] [employer] Index 0.12 <1.00 [facility] [place] [employer] Comment: HCV antibody was non-reactive. There is no laboratory evidence of HCV infection. In most cases, no further action is required. However, if recent HCV exposure is suspected, a test for HCV RNA (test code 43893) is suggested. For additional information please refer to http://education.H-art (WPP)/faq/ONF58h6 (This link is being provided for informational/ educational purposes only.) Blood Venous blood specimen / Unknown 11/07/2022 8:24 AM EST 11/07/2022 8:25 AM EST Narrative [facility] - 11/08/2022 12:51 AM EST FASTING:YES FASTING: YES Ernie Ro MD LAB BLOOD ORDERABLES Final Result Performing Organization Address City/[facility]/ZIP Co de Phone Number [address], [place] [address] [employer] [place] [employer] [address] [place] [address], (Nl2) [place] [address] * HPV E6/E7 RFLX SERGIO 16 18/45 (12/19/2020 3:40 PM EST) [facility] HPV 16 RNA [facility] HPV 18/45 RNA [facility] HPV E6 E7 ADD [facility] HPV mRNA E6/E7 rflx Not Detected Not Detected [facility] Comment: Methodology: Garden Labourer-Mediated Amplification This assay detects E6/E7 viral messenger RNA (mRNA) from 14 high-risk HPV types (16,18,31,33,35,39,45,51,52,56,58,59,66,68). The analytical performance characteristics of this assay have been determined by [facility]. The modifications have not been cleared or approved by the FDA. This assay has been validated pursuant to the CLIA regulations and is used for clinical purposes. For additional information, please refer to http://education.H-art (WPP)/faq/WZV022q4 (This link if provided for information/ educational purposes only.) THIS TEST WAS PERFORMED AT: [facility] [address] [place] [address] [address]LO[address] [place], [place] ??[address] FLACA ANTONY MD 12/19/2020 3:40 PM EST us Historical Provider MD HISTORICAL/NON ORDERABLE LABS Final Result Performing Organization Address City/State/[facility] Co wa Phone Number [facility] [address] from Last 3 Months or Most Recently Relevant to Health Maintenance Insurance C3 Care Teams Measurement Department Chief Clerk Relationship Specialty Start Date End Date Ernie Noriega MD [address] [place] [address] PCP - General Internal Medicine 08/25/19
--- OUTSIDE RECORDS SUMMARY | 2024-12-22 19:22 | XMS_ITS | Encounter Summary ---
Author Organization [employer] Address [address] [place] [address] 7t [place] [address] Care Team Providers Care Community Service Officer Name Role Phone Ernie Noriega MD Primary Care Provide r Reason for Visit * Reason Comments Med Refill Encounter Details Date Type Department Care Team ([facility] st Contact Info) Description 12/25/2023 Refill [facility] MEDICINE [address] [place], [place] [phone] Ernie Noriega MD [address] [place], [place] [phone] Pain; Primary hypertension; Seasonal allergies Social History [...] Description 01/12/2025 3:00 PM EDT Office Visit [facility] MEDICINE [address] [place] [address] Ernie Noriega MD [address] [place] [address] documented as of this encounter Visit Diagnoses Diagnosis Pain Generalized pain Primary hypertension Unspecified essential hypertension Seasonal allergies Allergic rhinitis, cause unspecified documented in this encounter Additional Health Concerns Assessment Noted Time PHQ-9 Depression Total Score: 0 12/02/19 23 2:38 PM EST documented as of this encounter Care Teams Community Service Officer Relationship Specialty Start Date End Date Ernie Noriega MD [address] [place] [address] PCP - General Internal Medicine 08/25/19 documented as of this encounter
--- OUTSIDE RECORDS SUMMARY | 2024-12-22 19:22 | XMS_ITS | Encounter Summary ---
Author Organization [employer] Address [address] [place] [address] 7t [place] [address] Care Team Providers Care Journalism Intern Name Role Phone Ernie Noriega MD Primary Care Provide r Reason for Visit * Reason Comments Med Refill Encounter Details Date Type Department Care Team ([facility] st Contact Info) Description 10/11/2023 Refill [facility] MEDICINE [address] [place] [address] Ernie Noriega MD [address] [place] [address] Social History Tobacco Use Types Packs/Day Years [...] 3:00 PM EDT Office Visit [facility] [address] [place] [address] Ernie Noriega MD [address] [place] [address] documented as of this encounter Visit Diagnoses Not on filedocumented in this encounter Additional Health Concerns Assessment Noted Time PHQ-9 Depression Total Score: 0 12/02/19 23 2:38 PM EST documented as of this encounter Care Teams Journalism Intern Relationship Specialty Start Date End Date Ernie Noriega MD [address] [place] [address] PCP - General Internal Medicine 08/25/19 documented as of this encounter
--- OUTSIDE RECORDS SUMMARY | 2024-12-22 19:22 | XMS_ITS | Encounter Summary ---
Author Organization [facility] Address [address] [place] [address] Care Team Providers Care Bituminous Paving Machine Operator Name Role Phone Ernie Merritt Primary Care Provider + Encounter Details Date Type Department Care Team (Late st Contact Info) Description 11/01/2024 Orders Only [facility] - External Imaging [address] [place] [address] Radiology, External [address] [place] [address] Social History Tobacco Use Types Packs/Day Years [...] Info) Description 03/14/2025 3:00 PM EDT Follow-Up [facility] 55 [place], [place] [phone] Christopher Peres MD 55 [place], [place] [phone] Pending Results Name Type Priority Associated Diagnoses [...] on filedocumented in this encounter Care Teams Bituminous Paving Machine Operator Relationship Specialty Start Date End Date Ernie Merritt 230 [place] [address] PCP - General Internal Medicine 11/29/24 documented as of this encounter
--- OUTSIDE RECORDS SUMMARY | 2024-12-22 19:22 | XMS_ITS | Encounter Summary ---
Author Organization [employer] Address [address] [place] [address] 7t [place] [address] Care Team Providers Care .Net Programmer Name Role Phone Ernie Noriega MD Primary Care Provide r Reason for Visit * Reason Comments Med Refill Encounter Details Date Type Department Care Team ([facility] st Contact Info) Description 08/10/2023 Refill [facility] [address] [place] [address] Perlita Woody MD [address] [place] [address] Seasonal allergies; Primary hypertension Social History Tobacco [...] 01/12/2025 3:00 PM EDT Office Visit [facility] MEDICINE [address] [place] [address] Ernie Noriega MD [address] [place] [address] documented as of this encounter Visit Diagnoses Diagnosis Seasonal allergies Allergic rhinitis, cause unspecified Primary hypertension Unspecified essential hypertension documented in this encounter Additional Health Concerns Assessment Noted Time PHQ-9 Depression Total Score: 0 12/02/19 23 2:38 PM EST documented as of this encounter Care Teams .Net Programmer Relationship Specialty Start Date End Date Ernie Noriega MD [address] [place] [address] PCP - General Internal Medicine 08/25/19 documented as of this encounter
--- OUTSIDE RECORDS SUMMARY | 2024-12-22 19:22 | XMS_ITS | Encounter Summary ---
Author Organization [employer] [facility] Address [address] [place] [address] 7t [place] [address] Care Team Providers Care Electronic Parts Salesperson Name Role Phone Ernie Noriega MD Primary Care Provide r Encounter Details Date Type Department Care Team ([facility] Contact Info) Description 12/09/2022 Orders Only [facility] PEDIATRICS [address] [place] [address] Suha Alexander, RN Social History Tobacco [...] Upcoming Encounters Date Type Department Care Team ([facility] Contact Info) Description 01/12/2025 3:00 PM EDT Office Visit [facility] MEDICINE 230 [place], [place] [phone] Ernie Noriega MD 230 [place] [address] documented as of this encounter Procedures Procedure Name Priority Date/Time Associated Diagnosis Comments BI MAMMOGRAM SCREENING TOMOSYNTHESIS BILATERAL Routine 12/23/2022 11:35 AM EDT documented in this encounter Results * BI Mammogram Screening Tomosynthesis Bilateral (12/23/2022 11:35 AM EDT) Anatomical Region Laterality Modality Breast Bilateral Mammography 12/23/2022 11:3 5 AM EDT Narrative 12/24/2022 5:15 PM EDT ? [facility] [place] ? [address] ?[place] [address] ? Mammography Report ? Signed ? Patient: Miguelina Watson ?MR#: ?? [id number] ? : 1965 ?Acct:[id number] ? Age/Sex: 57 / F ?ADM Date: 12/23/22 ? Loc: HO.MAMMO ? Attending Dr: Ernie Merritt MD ? Ordering Physician: Ernie Merritt MD ?Resu ?? lts: 1Negative ? Date of Service: 12/23/22 ?Follow Up: 1 Year From Orig ?? inal Mammogram ? Procedure(s): MM tomosynthesis screening BI ?? Accession Number(s): [id number] ? cc: Ernie Merritt MD ? EXAMINATION: [...] 1712 ? DD/ 1135 ? TD/TT: ? Driver Helper: SK ? Procedure Note Tiesha, Rene - 12/24/2022 [facility] [address] [place] [address] Dr. [place], [place] T [address] Mammography Report Signed [id number] : 1965Acct:[id number] Age/Sex: 57 / FADM Date: 12/23/22 Loc: DANIE[facility] Attending Dr: Ernie Merritt MD Ordering Physician: Ernie Merrtit MDResu lts: 1Negative Date of Service: 12/23/22Follow Up: 1 Year From Orig inal Mammogram Procedure(s): MM tomosynthesis screening BI Accession Number(s): [id number] cc: Ernie Merritt MD EXAMINATION: MM SCREENING [...] in OV> 12/24/22 1712 DD/ 1135 TD/TT: Driver Helper: SMITHA [facility] External Provider IMG BI PROCEDURES Edited Result - Final documented in this encounter Visit Diagnoses Not on filedocumented in this encounter Additional Health Concerns Assessment Noted Time PHQ-9 Depression Total Score: 0 12/02/19 23 2:38 PM EST documented as of this encounter Care Teams Electronic Parts Salesperson Relationship Specialty Start Date End Date Ernie Noriega MD [address] [place] [address] PCP - General Internal Medicine 08/25/19 documented as of this encounter
--- OUTSIDE RECORDS SUMMARY | 2024-12-22 19:22 | XMS_ITS | Encounter Summary ---
Author Organization [facility] Address [address] [place] [address] Care Team Providers Care Clinical Nursing Manager Name Role Phone Ernie Merritt Primary Care Provider + Encounter Details Date Type Department Care Team (Late st Contact Info) Description 12/13/2024 Telephone [facility] [address] [place] [address] Christopher Peres MD [address] [place], [place] [phone] Social History Tobacco Use Types Packs/Day Years [...] 12/13/2024 11:00 AM EST Left voicemail using c[employer] services to let patient know that Dr Peres would not be available on due to an emergency and we need her to call back to be rescheduled. documented in this encounter Plan of Treatment Upcoming Encounters Date Type Department Care Team (Late st Contact Info) Description 03/14/2025 3:00 PM EDT Follow-Up [facility] [address] [place] [address] Christopher Peres MD [address] [place] [address] documented as of this encounter Visit Diagnoses Not on filedocumented in this encounter Care Teams Clinical Nursing Manager Relationship Specialty Start Date End Date Ernie Merritt 230 [place] [address] PCP - General Internal Medicine 11/29/24 documented as of this encounter
--- OUTSIDE RECORDS SUMMARY | 2024-12-22 19:22 | XMS_ITS | Encounter Summary ---
Author Organization [employer] [facility] Address [address] [place] [address] 7t [place] [address] Care Team Providers Care Aqueduct And Reservoir Keeper Name Role Phone Ernie Noriega MD Primary Care Provide r Encounter Details Date Type Department Care Team (Late st Contact Info) Description 10/03/2022 Orders Only [facility] MEDICINE [address] [place] [address] [phone] Suha Alexander, RN Social History Tobacco Use [...] 3:00 PM EDT Office Visit [facility] MEDICINE [address] [place] [address] [phone] Ernie Noriega MD [address] [place] [address] documented as of this encounter Visit Diagnoses Not on filedocumented in this encounter Care Teams Aqueduct And Reservoir Keeper Relationship Specialty Start Date End Date Ernie Noriega MD [address] [place] [address] PCP - General Internal Medicine 08/25/19 documented as of this encounter
--- OUTSIDE RECORDS SUMMARY | 2024-12-22 19:22 | XMS_ITS | Encounter Summary ---
Author Organization [facility] Address [address] [place] [address] Care Team Providers Care Commercial Lending Assistant Name Role Phone Ernie Merritt Primary Care Provider + Reason for Referral * MRI/CAT/PET Scan (Routine) - Closed Specialty Diagnoses / Procedures Referred By Contac t Referred To Contact Diagnoses H/O cervical spine surgery Procedures MRI Cervical Spine WO Contrast Christopher Peres MD [address] [place] [address] Phone: tel: fax: Referral ID Status Reason Start Date Expiration Date Visits Re quested Visits Authorized [id number] Closed 12/14/2024 06/15/2026 1 1 * MRI/CAT/PET Scan (Routine) - Pending Review Specialty Diagnoses / Procedures Referred By Contac t Referred To Contact Radiology Diagnoses Chronic bilateral low back pain with bilateral sciatica Procedures CT Lumbar Spine WO Contrast Christopher Peres MD [address] [place] [address] Phone: tel: fax: Referral ID Status Reason Start Date Expiration Date V isits Requested Visits Authorized [id number] Pending Review 12/14/2024 06/15/2026 1 1 * MRI/CAT/PET Scan (Routine) - Pending Review Specialty Diagnoses / Procedures Referred By Contac t Referred To Contact Radiology Diagnoses Chronic bilateral low back pain with bilateral sciatica Procedures CT Thoracic Spine WO Contrast Christopher Peres MD [address] [place] [address] Phone: tel: fax: Referral ID Status Reason Start Date Expiration Date V isits Requested Visits Authorized [id number] Pending Review 12/14/2024 06/15/2026 1 1 * Physical Therapy (Routine) - Pending Review Specialty Diagnoses / Procedures Referred By Contac t Referred To Contact Physical Therapy Diagnoses Chronic bilateral low back pain with bilateral sciatica Christopher Peres MD [address] [place] [address] Phone: tel: fax: Referral ID Status Reason Start Date Expiration Date Visits Requested Visits Authorized [id number] Pending Review Specialty Services Required 12/14/2024 06/15/2026 [...] on the Thoracic MRI, Imaging reviewed with [facility] colleagues: There is a large arachnoid cyst extending most of the mid to lower Thoracic spine not reported by the Radiologist. It does compress the cord. the area in question lower down at T11, ? disc herniation. There are no cord signal changes. Anna Navas [address] [place] [address] Phone: tel: Neema Bhagat MD [address] [place] [address] Phone: tel: fax: Referral ID Status Reason Start Date Expiration Date V isits Requested Visits Authorized [id number] Pending Review 11/29/2024 05/31/2026 6 6 Encounter Details Date Type Department Care Team (Latest Contact Info) Description 12/14/2024 9:00 AM EST Office Visit [facility] [address] [place], [place] [phone] Christopher Peres MD [address] [place] [address] Chronic bilateral low back pain with bilateral [...] Info) Description 03/14/2025 3:00 PM EDT Follow-Up [facility] [address] [place] [address] Christopher Peres MD [address] [place] [address] Scheduled Orders Name Type Priority Associated Diagnoses Orde r Schedule CT Thoracic Spine WO Contrast Imaging Routine Chronic bilateral low back pain with bilateral sciatica Expected: 12/14/2024, Expires: 02/13/2026 CT Lumbar Spine WO Contrast Imaging Routine Chronic bilateral low back pain with bilateral sciatica Expected: 12/14/2024, Expires: 02/13/2026 X-ray scoliosis complete including supine and erect Imaging Routine Chronic bilateral low back pain with bilateral sciatica Expected: 12/14/2024, Expires: 02/13/2026 Scheduled Referrals Name Type Priority Associated Diagnoses Order Schedule Ambulatory referral to Physical Therapy Outpatient Referral Routine Chronic bilateral low back pain with bilateral sciatica Expected: 12/14/2024, Expires: 06/16/2025 documented as of this encounter Results * Due to [place] state law, this organization might not be sharing negative HIV tests. * MRI Cervical Spine WO Contrast (12/21/2024 7:55 AM EDT) Anatomical Region Laterality Modality Spine, C-spine Magnetic Resonan ce 12/21/2024 7:30 AM EDT Narrative 12/22/2024 2:31 PM EDT [facility] Accession Number: [id number] Patient Name: Miguelina Julien Date of : 1965 Date of Exam: 12-21-2024 Referring Physician: Christopher Peres ?[facility] ?[address] [place] [address] ?[place] [address] Exam: MR Cervical Spine (C-) CPT 44850 Room Description: [facility] Esp 1.5 MR Cervical Spine (C-) CPT 65411 INDICATION: previous C spine surgery, appears tight on MRI T spine derrick hand ?? TECHNIQUE: Multiplanar, multisequence MRI of the [...] By: Priti Mendez MD Procedure Note Provider, Morrell - 12/22/2024 [facility] Accession Number: [id number] Patient Name: Miguelina Julien Date of : 1965 Date of Exam: 12-21-2024 Referring Physician: Christopher Peres [place] [address] Exam: MR Cervical Spine (C-) CPT 85390 Room Description: [facility] Espr 1.5 MR Cervical Spine (C-) CPT 96884 INDICATION: previous C spine surgery, appears tight on MRI T spine derrick hand TECHNIQUE: Multiplanar, multisequence MRI of the cervical [...] Priti Mendez MD us Christopher Peres MD IM MRI PROCEDURES Final Re sult * X-ray lumbar spine flexion and extension [...] obtain the completed interpretation. ? Workstation ID: [id number] Narrative 12/14/2024 5:30 PM EST COMPARISON: There are no prior studies available for comparison at this time. Resulting Agency Comment [id number] Procedure Note Stone Reid MD - 12/14/2024 [...] possible to obtain thecompleted interpretation. Workstation ID: [id number] Christopher Peres MD IMG XR PROCEDURES Final Res ult documented in this encounter Visit Diagnoses Diagnosis Chronic bilateral low back pain with bilateral sciatica- Primary H/O cervical spine surgery documented in this encounter Care Teams Commercial Lending Assistant Relationship Specialty Start Date End Date Ernie Merritt [address] [place] [address] PCP - General Internal Medicine 11/29/24 documented as of this encounter
--- OUTSIDE RECORDS SUMMARY | 2024-12-22 19:22 | XMS_ITS | Encounter Summary ---
Author Organization [employer] Address [address] [place] [address] 7 [place] [address] Care Team Providers Care High School Hvac R Instructor Name Role Phone Ernie Noriega MD Primary Care Provide r Reason for Visit * Reason Onset Date Comments Medication Question 10/03/2022 returning call 10/03/2022 Encounter Details Date Type Department Care Team ([facility] st Contact Info) Description 10/03/2022 Telephone [facility] MEDICINE [address] [place] [address] Ernie Noriega MD [address] [place] [address] Medication Question; returning call Social History Tobacco [...] pt returning call Please contact pt at [phone] * Telephone Encounter - Peg Scott RN - 10/10/2022 11:17 AM EST T/C placed to pt x2AM re below message. No answer, left v/m. Will retask to [facility] for third attempt. * Telephone Encounter - Peg Scott RN - 10/08/2022 3:32 PM EST Incoming T/C from Sylvia CAMARILLO from [facility]. She states spoke with MEDIA DEVELOPER who saw pt 09/24. It is not in the OV note (which is located in Epic under Media tab) but that pt reported pain during appt and MEDIA DEVELOPER advised pt speak to her PCP and [...] next month with PCP. Will send to [facility] to attempt second call. [place] sending to PCP as FYI. * Telephone Encounter - Peg Scott RN - 10/08/2022 10:34 AM EST Reviewed most recent note from [facility] note. No mention of increased dose. T/C placed to them who stated they don't see anything but will send message to provider who is out onvacation and will be back next week. Provided my direct ext for call back. * Telephone Encounter - Marjorie Bass - 10/03/2022 10:42 AM EST Tc from pt calling to inform was told by her [facility] Phys[facility] DR to request [...] Office Visit [facility] [address] [facility] [address] Ernie Noriega MD [address] [place] [address] documented as of this encounter Visit Diagnoses Not on filedocumented in this encounter Care Teams High School Hvac R Instructor Relationship Specialty Start Date End Date Ernie Noriega MD [address] [facility] [place] [address] PCP - General Internal Medicine 08/25/19 documented as of this encounter
--- OUTSIDE RECORDS SUMMARY | 2024-12-22 19:22 | XMS_ITS | Encounter Summary ---
Author Organization [employer] Address [address] [place] [address] 7t [place] [address] Care Team Providers Care Statistical Methods Professor Name Role Phone Ernie Noriega MD Primary Care Provide r Reason for Visit * Reason Onset Date Comments Med Refill 09/18/2023 Encounter Details Date Type Department Care Team ([facility] st Contact Info) Description 09/18/2023 Telephone [facility] MEDICINE [address] [place] [address] Ernie Noriega MD [address] [place], [place] [phone] Med Refill Social History Tobacco Use Types [...] (Ultram) 50 MG tablet Please sent to [facility]/pharmacy #[id number] [place], [place] - [address] [place] [address] documented in this encounter Plan of Treatment Upcoming Encounters Date Type Department Care Team (Late st Contact Info) Description 01/12/2025 3:00 PM EDT Office Visit [facility] MEDICINE [address] [place], [place] [phone] Ernie Noriega MD [address] [place] [address] documented as of this encounter Visit Diagnoses Not on filedocumented in this encounter Additional Health Concerns Assessment Noted Time PHQ-9 Depression Total Score: 0 12/02/19 23 2:38 PM EST documented as of this encounter Care Teams Statistical Methods Professor Relationship Specialty Start Date End Date Ernie Noriega MD [address] [place], [place] [phone] PCP - General Internal Medicine 08/25/19 documented as of this encounter
--- OUTSIDE RECORDS SUMMARY | 2024-12-22 19:22 | XMS_ITS | Encounter Summary ---
Author Organization [facility] Address [address] [place] [address] Care Team Providers Care Home Energy Consultant Name Role Phone Ernie Merritt MD Primary Care Provi bobo Reason for Visit * Reason Comments Pre-op Visit TF release DOS: 12/07 Encounter Details Date Type Department Care Team (Late st Contact Info) Description 11/22/2024 10:45 AM EST Consult Orthopedic Surgery - [place] [address] [facility] [address] [place] [address] Trista David MD 175 [facility] [address] [place] [phone] Acquired trigger finger of left index finger [...] Primary documented in this encounter Care Teams Home Energy Consultant Relationship Specialty Start Date End Date Ernie Merritt MD [address] [place] [address] [place] [address] PCP - General Internal Medicine 05/20/21 documented as of this encounter
--- OUTSIDE RECORDS SUMMARY | 2024-12-22 19:22 | XMS_ITS | Encounter Summary ---
Author Organization [facility] Address [address] 7t [place] [address] Care Team Providers Care Mold Setter Name Role Phone Ernie Noriega MD Primary Care Provide r Reason for Visit * Reason Onset Date Comments Med Refill Referral 12/10/2022 Patient walked i n requesting for referral to a neurologist. It is difficult for her to walk and do her morton activities. Pt has had [facility] go to her house for therapy, but it has not made any improvements. Encounter Details Date Type Department Care Team (Late st Contact Info) Description 12/10/2022 Refill [facility] MEDICINE [address] [place], [place] [phone] Ernie Noriega MD 230 [place], [place] [phone] Pain Social History Tobacco Use Types Packs/Day [...] Office Visit [facility] [address] [place] [address] Ernie Noriega MD 230 [place] [address] documented as of this encounter Visit Diagnoses Diagnosis Pain Generalized pain documented in this encounter Additional Health Concerns Assessment Noted Time PHQ-9 Depression Total Score: 0 12/02/19 23 2:38 PM EST documented as of this encounter Care Teams Mold Setter Relationship Specialty Start Date End Date Ernie Noriega MD 230 [place] [address] PCP - General Internal Medicine 08/25/19 documented as of this encounter
--- OUTSIDE RECORDS SUMMARY | 2024-12-22 19:22 | XMS_ITS | Encounter Summary ---
Author Organization [employer] Address [address] [place] [address] 7t [place] [address] Care Team Providers Care Banking Center Manager Name Role Phone Ernie Noriega MD Primary Care Provide r Reason for Visit * Reason Onset Date Comments Med Refill 10/13/2024 Encounter Details Date Type Department Care Team ([facility] st Contact Info) Description 10/13/2024 Refill [facility] MED[facility] [address] [place] [address] Ernie Noriega MD [address] [place] [address] Chronic midline low back pain without sciatica [...] Description 01/12/2025 3:00 PM EDT Office Visit [facility] [address] [place] [address] Ernie Noriega MD 230 [place] [address] documented as of this encounter Visit Diagnoses Diagnosis Chronic midline low back pain without sciatica documented in this encounter Additional Health Concerns Assessment Noted Time PHQ-9 Depression Total Score: 2 01/21/20 24 1:25 PM EDT documented as of this encounter Care Teams Banking Center Manager Relationship Specialty Start Date End Date Ernie Noriega MD [address] [place] [address] PCP - General Internal Medicine 08/25/19 documented as of this encounter
--- OUTSIDE RECORDS SUMMARY | 2024-12-22 19:22 | XMS_ITS | Encounter Summary ---
Author Organization [facility] Address [address] [place] [address] Care Team Providers Care Food Expeditor Name Role Phone Ernie Merritt Primary Care Provider + Encounter Details Date Type Department Care Team (Late st Contact Info) Description 12/08/2024 Telephone [facility] [address] [place] [address] Christopher Peres MD [address] [place], [place] [address] Social History Tobacco Use Types Packs/Day Years [...] EST Patient called back and we got hourly sign language interpreter Rodger [place] [id number] on the line. We rescheduled appointment with Dr. Peres for 12/15 at 8:00 am. Patient is aware of date, time and location and ok with these changes. * Telephone Encounter - Allyn Macario - 12/08/2024 3:27 PM EST Called patient using hourly sign language interpreter Perlita [place] [id number] and left voicemail with both patient and asking for a call back to reschedule Thursday's appointment with another provider. Patient should be scheduled with Dr. Peres. documented in this encounter Plan of Treatment Upcoming Encounters Date Type Department Care Team (Late st Contact Info) Description 03/14/2025 3:00 PM EDT Follow-Up [facility] [address] [place], [place] [phone] Christopher Peres MD [address] [place], [place] [phone] documented as of this encounter Visit Diagnoses Not on filedocumented in this encounter Care Teams Food Expeditor Relationship Specialty Start Date End Date Ernie Merritt 230 [place] [address] PCP - General Internal Medicine 11/29/24 documented as of this encounter
--- OUTSIDE RECORDS SUMMARY | 2024-12-22 19:22 | XMS_ITS ---
Author Organization [facility] Address [address] [place] [address] Care Team Providers Care Chauffeur Motorbus Name Role Phone Milton Ro MD, [facility] Primary Care Provide r Unavailable Rodrick Millan Unavailable [phone] REASON FOR VISIT screening Problems Problem Type SNOMED Code ICD Code Onset Dates Problem Status W/U Status Risk Notes Problem Diverticular disease of colon (018333330) Diverticulosis of large intestine without perforation or abscess without bleeding (K57.30) Active confirmed Encounters Encounter Location Date Provider Diagnosis [facility] [place] [address] [place], [place] [phone] 03/18/2024 Rodrick Millan Encounter for scre ening [...] Of Treatment No Information Progress Notes * ISMHAEL HINOJOSADOB: 3 (59 yo F)Acc No.[id number]:03/18/2024 COLON WITH MAC Patient:?ISHMAEL HINOJOSA Provider:?Rodrick Millan MD :1965???Age:58 Y???Sex:Female D ate:03/18/2024 Address:[address] [place], [place] [address] Pcp:Ernie bonilla MD Subjective: * Chief Complaints: * ???1. Screening. * Medical History:? Objective: * Vitals:? Assessment: * Assessment: 1.?Encounter for screening c olonoscopy - Z12.11 (Primary)???2.?Colon polyps - K63.5???3.?Diverticulosis of large intestine without perforation or abscess without bleeding - K57.30???4.?Internal hemorrhoids - K64.8??? Plan: * Treatment: * Procedure Codes:?17968 COLON OSCOPY AND BIOPSY * * The named appointment provid er may or may not be the originator of this progress note, and it is not deemed complete until electronically signed by the appointment provider. Sign off status: Pending * Provider:?Rodrick Millan MD Date:? 024 Generated for Landon westbrook/Jean-Paul/eTransmitting on:?12/22/2024 02:37 PM EDT
--- OUTSIDE RECORDS SUMMARY | 2024-12-22 19:22 | XMS_ITS ---
Author Organization [facility] Address [address] [place] [address] Care Team Providers Care Furniture Mover Name Role Phone Milton Ro MD, Ernie Primary Care Provide r Rodrick Juarez [phone] REASON FOR VISIT screening Encounters Encounter Location Date Provider Diagnosis [facility] Outpatient [address] [place], [place] [phone] 02/03/2024 Rodrick Millan Plan Of Treatment No Information Progress Notes * ISHMAEL HINOJOSADOB: 3 (59 yo F)Acc No.[id number]:02/03/2024 COLON WITH MAC Patient:?ISHMAEL HINOJOSA Provider:?Rodrick Millan MD :1965???Age:58 Y???Sex:Female D ate:02/03/2024 Address:[address] [place], [place] [address] Megan [place]O [facility] Pcp:Ernie bonilla MD Subjective: * Chief Complaints: * ???1. Screening. * Medical History:? Objective: * Vitals:? Assessment: Plan: * Treatment: * * The named appointment provid er may or may not be the originator of this progress note, and it is not deemed complete until electronically signed by the appointment provider. Sign off status: Pending * Provider:?Rodrick Mlilan MD Date:? 024 Generated for Printi ng/Faanjelg/eTransmitting on:?12/22/2024 07:21 PM EDT
--- OUTSIDE RECORDS SUMMARY | 2024-12-22 19:22 | XMS_ITS | Encounter Summary ---
Author Organization [facility] Address [address] [place] [address] Care Team Providers Care Wire Sawyer Name Role Phone Ernie Merritt Primary Care Provider + Encounter Details Date Type Department Care Team (Late st Contact Info) Description 09/16/2024 Orders Only [facility] - External Imaging [address] [place] [address] Radiology, External [address] [place] [address] Social History Tobacco Use Types Packs/Day Years [...] Info) Description 03/14/2025 3:00 PM EDT Follow-Up [facility] [address] [place], [place] [phone] Christopher Peres MD [address] [place], [place] [phone] Pending Results Name Type Priority Associated Diagnoses Date /Time MRI Transfer of Outside Films L-Spine Imaging [place] Routine 12/08/2024 11:00 AM EST Scheduled Orders Name Type Priority Associated Diagnoses Orde r Schedule MRI Transfer of Outside Films L-Spine Imaging [place] Routine 1 Occurrences starting 12/08/2024 until 01/05/2026 documented as of this encounter Visit Diagnoses Not on filedocumented in this encounter Care Teams Wire Sawyer Relationship Specialty Start Date End Date Ernie Merritt [address] [place] [address] PCP - General Internal Medicine 11/29/24 documented as of this encounter
--- OUTSIDE RECORDS SUMMARY | 2024-12-22 19:22 | XMS_ITS | Encounter Summary ---
Author Organization [employer] Address [address] [place] [address] 7t [place] [address] Care Team Providers Care Chemistry Account Manager Name Role Phone Ernie Noriega MD Primary Care Provide r Reason for Visit * Reason Onset Date Comments Med Refill 09/28/2024 Encounter Details Date Type Department Care Team ([facility] st Contact Info) Description 09/28/2024 Refill [facility] MEDICINE [address] [place] [address] Ernie Noriega MD [address] [place] [address] Chronic midline low back pain without sciatica; [...] Description 01/12/2025 3:00 PM EDT Office Visit [facility] MED[facility] [address] [place] [address] Ernie Noriega MD [address] [place] [address] documented as of this encounter Visit Diagnoses Diagnosis Chronic midline low back pain without sciatica Cervical radiculopathy Brachial neuritis or radiculitis nos documented in this encounter Additional Health Concerns Assessment Noted Time PHQ-9 Depression Total Score: 2 01/21/20 24 1:25 PM EDT documented as of this encounter Care Teams Chemistry Account Manager Relationship Specialty Start Date End Date Ernie Noriega MD [address] [place] [address] PCP - General Internal Medicine 08/25/19 documented as of this encounter
--- OUTSIDE RECORDS SUMMARY | 2024-12-22 19:22 | XMS_ITS | Encounter Summary ---
Author Organization [employer] Address [address] [place] [address] 7t [place] [address] Care Team Providers Care Second Operator Name Role Phone Ernie Noriega MD Primary Care Provide r Reason for Visit * Reason Comments Med Refill Encounter Details Date Type Department Care Team ([facility] st Contact Info) Description 08/26/2023 Refill [facility] [address] [place] [address] Perlita Woody MD [address] [place] [address] Seasonal allergies Social History Tobacco Use Types [...] Visit [facility] MED[facility] [address] [place] [address] Ernie Noriega MD [address] [place] [address] documented as of this encounter Visit Diagnoses Diagnosis Seasonal allergies Allergic rhinitis, cause unspecified documented in this encounter Additional Health Concerns Assessment Noted Time PHQ-9 Depression Total Score: 0 12/02/19 23 2:38 PM EST documented as of this encounter Care Teams Second Operator Relationship Specialty Start Date End Date Ernie Noriega MD [address] [place] [address] PCP - General Internal Medicine 08/25/19 documented as of this encounter
--- OUTSIDE RECORDS SUMMARY | 2024-12-22 19:22 | XMS_ITS | Encounter Summary ---
Author Organization [employer] Address [address] [facility] 7t [place] [address] Care Team Providers Care Protective Signal Repairer Helper Name Role Phone Ernie Noriega MD Primary Care Provide r Reason for Visit * Reason Onset Date Comments Med Refill 09/18/2023 Encounter Details Date Type Department Care Team ([facility] st Contact Info) Description 09/18/2023 Refill [facility] [address] [place] [address] Ernie Noriega MD 230 [facility] [place] [address] Chronic midline low back pain without sciatica; [...] PM EDT Office Visit [facility] MEDICINE [address] [place] [address] Ernie Noriega MD [address] [place] [address] documented as of this encounter Visit Diagnoses Diagnosis Chronic midline low back pain without sciatica Cervical radiculopathy Brachial neuritis or radiculitis nos documented in this encounter Additional Health Concerns Assessment Noted Time PHQ-9 Depression Total Score: 0 12/02/19 23 2:38 PM EST documented as of this encounter Care Teams Protective Signal Repairer Helper Relationship Specialty Start Date End Date Ernie Noriega MD [address] [place] [address] PCP - General Internal Medicine 08/25/19 documented as of this encounter
--- OUTSIDE RECORDS SUMMARY | 2024-12-22 19:22 | XMS_ITS | Encounter Summary ---
Author Organization [employer] Address [address] [place] [address] 7t [place] [address] Care Team Providers Care Patrol Agent Name Role Phone Ernie Noriega MD Primary Care Provide r Reason for Visit * Reason Onset Date Comments Med Refill 09/28/2024 Encounter Details Date Type Department Care Team ([facility] Contact Info) Description 09/28/2024 Telephone [facility] MEDICINE [address] [place] [address] Ernie Noriega MD [address] [place] [address] Med Refill Social History Tobacco Use Types [...] 300 MG capsule To be sent to: [facility]/pharmacy [address] [place] [address] documented in this encounter Plan of Treatment Upcoming Encounters Date Type Department Care Team (Late st Contact Info) Description 01/12/2025 3:00 PM EDT Office Visit [facility] MED[facility] [address] [place] [address] Ernie Noriega MD [address] [place], [place] [phone] documented as of this encounter Visit Diagnoses Not on filedocumented in this encounter Additional Health Concerns Assessment Noted Time PHQ-9 Depression Total Score: 2 01/21/20 24 1:25 PM EDT documented as of this encounter Care Teams Patrol Agent Relationship Specialty Start Date End Date Ernie Noriega MD [address] [place] [address] PCP - General Internal Medicine 08/25/19 documented as of this encounter
--- OUTSIDE RECORDS SUMMARY | 2024-12-22 19:22 | XMS_ITS | Patient Health Record ---
Author Organization [facility] Address [address] [place] [address] Care Team Providers Care Time Recorder Name Role Phone Milton Ro MD, Ernie Primary Care Provide r Rodrick Juarez Unavailable [phone] Allergies No Known Allergies Results Component Value Reference Range Notes Pathology (Not yet reviewed by provider) Interpretation: Performing Lab:[facility], [address] [place] [id number] Notes/Report: Name: Ishmael Julien Age/Sex: 58/F : 1965 Unit#: [id number] Attend Dr: Rodrick Millan Re03/18/24 Status : [facility] Location: [facility] Disch: SPEC : [id number] REC STATUS: RUBY GILLESPIE NUM: [id number] SANDEEP: 03/18/[address] [facility] [address]: Rodrick Millan ENTERED: 03/18/24-06 22 SP [...] A. CEDS Copies To: Ernie Merritt MD [address] [place] [id number] Rodrick Millan [address] [place] [address] [address] [place] [address] Signed (si gnature on file) Donna Enfield 03/22/24 1450 END OF REPORT Reason For [...] as needed Inhalation every 4 hrs Active Tlabtiyvkm-Foiebuk-Fxvftlrs 50-325-40 MG 1 capsule as needed Orally [...] Problem Status W/U Status Risk Notes Problem 981906057 Colon cancer screening (Z12.11) Active confirmed Problem Diverticular disease of colon (735181667) Diverticulosis of large intestine without perforation or abscess without bleeding (K57.30) Active confirmed Problem [id number] Preprocedural examination (Z01.818) Active confirmed Problem 094879036 Encounter for long-term (current) use of NSAIDs (Z79.1) Active confirmed Encounters Encounter Location Date Provider Diagnosis [facility] Outpatient [address] [place], [place] [phone] 03/18/2024 Rodrick Millan Encounter for screen ing colonoscopy Z12.11 ; Colon polyps K63.5 ; Diverticulosis of large intestine without perforation or abscess without bleeding K57.30 and Internal hemorrhoids K64.8 [facility] [address] [place] [address] 03/17/2024 Rodrick Millan Assessments Encounter Date Diagnosis [...] Start Date Coverage End Date MEDICAID OF [employer] [address] [place] [phone] [id number] JULIEN ISHMAEL Self - patient is the insured Medical (General) History Medical History History ICD Code Denies [place],DM,CVA,renal disease Asthma Depression/anxiety Hypertension Negative screening colonoscopy in 06/2013 Arthritis/Body aches Surgical History Surgery Date(Month/Year) Back surgery for disc disease Bilateral carpal tunnel Left shoulder C-spine disc surgery Bilateral knee replacements Might be having a left shoulder replacem ent as of the 07/2023 OV
--- OUTSIDE RECORDS SUMMARY | 2024-12-22 19:23 | XMS_ITS | Encounter Summary ---
Author Organization [facility] Address [address] [place] [address] Care Team Providers Care Laundry Pricing Clerk Name Role Phone Ernie Merritt MD Primary Care Provi [facility] Reason for Visit * Auth/Cert (Routine) Specialty Diagnoses / Procedures Referred By Bro t Referred To Contact Diagnoses Trigger finger, unspecified finger TRIGGER FINGER LEFT INDEX FINGER Procedures UT INCISION TENDON SHEATH LEFT A1 JOAO/TRIGGER FINGER RELEASE INDEX FINGER Trista David MD [address] [address] Phone: tel: fax: [facility] [place] [address] [place] [address] Phone: tel: Referral ID Status Reason Start Date Expiration Date Visits Re quested Visits Authorized [id number] 1 1 Encounter Details Date Type Department Care Team (Latest Contact Info) Description 12/07/2024 11:51 AM EST - 12/07/2024 2:43 PM EST Hospital Encounter [facility] [place] [address] [place] [address] Trista David MD [address] [address] Discharge Disposition: Home or Self [...] discoloration. [facility] Trista David MD [address] [place] [address] If you have any questions and or cannot keep your appointment, please contact the [facility] office at [phone] * Attachments The following attachments cannot be sent through Care Everywhere. * Sedation (Sinhala) documented in this encounter Medications at Time [...] FINGER (L) OPERATIVE NOTE Date: 12/07/2024 Location: [facility] OR Name: Miguelina Julien, : 1965, Diagnosis Pre-op Diagnosis * Trigger finger, unspecified finger [M65.30] Post-op Diagnosis * Trigger finger, unspecified finger [M65.30] Procedures LEFT A1 JOAO/TRIGGER FINGER RELEASE INDEX FINGER 21531 - UT INCISION TENDON SHEATH Indications: Miguelina Julien is an 59 y.o. female who is having surgery for TRIGGER FINGER LEFT INDEX FINGER. She has had multiple surgeries at other sites previously for triggering. Surgeon(s) & Debt Collection Specialist(s) * Trista David MD - Primary Anesthesia: Monitor Anesthesia Care and local anesthesia ASA: II Estimated Blood Loss: Minimal Procedure Details: ICD-9: 727.03 ICD-10: M65.30 (UNSPECIFIED) cpt: 98410 The patient was identified in the preoperative [...] A small self-retaining retractor was placed. My contact center assistant held the Ragnell retractors as well [...] Procedure Name Priority Date/Time Associated Diagnosis Comments UT INCISION TENDON SHEATH 12/07/2024 12:32 PM EST [...] (New Bag - Prov ider: Agnieszka Villatoro, MEMBERSHIP ADMINISTRATOR) sodium chloride 0.9 % flush 10 mL(Linked [...] 12/07/2024 documented in this encounter Care Teams Laundry Pricing Clerk Relationship Specialty Start Date End Date Ernie Merritt MD [address] [place] [address] [facility] [address] PCP - General Internal Medicine 05/20/21 documented as of this encounter
--- OUTSIDE RECORDS SUMMARY | 2024-12-22 19:23 | XMS_ITS | Encounter Summary ---
Author Organization [employer] Address [address] [place] [address] 7t [place] [address] Care Team Providers Care Senior Software Systems Engineer Name Role Phone Ernie Noriega MD Primary Care Provide r Reason for Visit * Reason Onset Date Comments verbal order 11/21/2022 Encounter Details Date Type Department Care Team (Late Contact Info) Description 11/21/2022 Telephone [facility] MEDICINE [address] [place] [address] Ernie Noriega MD [address] [place] [address] verbal order Social History Tobacco Use Types [...] 1:08 PM EST Tc from Baldemar from [facility] calling to inform pt started home services today . Baldemar is also requesting a verbal order for pt to start physical therapy for 2x a week for 4 weeks . Best contact # [phone]. documented in this encounter Plan of Treatment Upcoming Encounters Date Type Department Care Team (Late Contact Info) Description 01/12/2025 3:00 PM EDT Office Visit [facility] 230 [facility] [place] [address] Ernie Noriega MD [address] [place] [address] documented as of this encounter Visit Diagnoses Not on filedocumented in this encounter Care Teams Senior Software Systems Engineer Relationship Specialty Start Date End Date Ernie Noriega MD [facility] [place] [address] PCP - General Internal Medicine 08/25/19 documented as of this encounter
--- OUTSIDE RECORDS SUMMARY | 2024-12-22 19:23 | XMS_ITS | Encounter Summary ---
Author Organization [facility] Address [address] [place] [address] Care Team Providers Care Surgical Services Assistant Name Role Phone Ernie Merritt MD [facility] Reason for Referral * Orthopedic (Routine) - Pending Review Specialty Diagnoses / Procedures Referred By Contac t Referred To Contact Orthopedic Surgery / Orthopaedic Surgery Diagnoses Rotator cuff arthropathy, left Procedures L Inj/Asp: L subacromial bursa Leroy Lees MD [address] [address] Phone: tel: fax: Referral ID Status Reason Start Date Expiration Date V isits Requested Visits Authorized [id number] Pending Review 11/23/2024 11/23/2025 1 1 Reason for Visit * Reason Comments Follow-up Encounter Details Date Type Department Care Team (Late st Contact Info) Description 11/23/2024 11:00 AM EST Office Visit Orthopedic Surgery - [place] [address] [phone] Leroy Lees MD [address] [address] Rotator cuff arthropathy, left (Primary Dx) Social [...] Procedure Name Priority Date/Time Associated Diagnosis Comments [place] ARTHROCENTESIS/ASPI RATION/INJECTION MAJOR JOINT/BURSA W/O U/S GUIDANCE Routine 11/23/2024 11:00 AM EST Rotator cuff arthropathy, left documented in this encounter Results * NV ARTHROCENTESIS/ASPIRATION/INJECTION MAJOR JOINT/BURSA W/O U/S GUIDANCE (11/23/2024 [...] Verbal ??Pre-procedure timeout performed: yes ?? us Leryo Lees MD IN CLINIC/BEDSIDE ORDERABLES F inal [...] mg documented in this encounter Care Teams Surgical Services Assistant Relationship Specialty Start Date End Date Ernie Merritt MD [address] [place] [address] PCP - General Internal Medicine 05/20/21 documented as of this encounter
--- OUTSIDE RECORDS SUMMARY | 2024-12-22 19:23 | XMS_ITS | Encounter Summary ---
Author Organization [employer] Address [address] [place] [address] 7 [place] [address] Care Team Providers Care Carton Catcher Name Role Phone Ernie Noriega MD Primary Care Provide r Reason for Visit * Reason Onset Date Comments Med Refill 10/12/2024 Encounter Details Date Type Department Care Team ([facility] st Contact Info) Description 10/12/2024 Refill [facility] [address] [place] [address] Ernie Noriega MD [address] [place] [address] Primary osteoarthritis of knee, unspecified laterality Social [...] Office Visit [facility] [address] [place] [address] Ernie Noriega MD [address] [place] [address] documented as of this encounter Visit Diagnoses Diagnosis Primary osteoarthritis of knee, unspecified laterality documented in this encounter Additional Health Concerns Assessment Noted Time PHQ-9 Depression Total Score: 2 01/21/20 24 1:25 PM EDT documented as of this encounter Care Teams Carton Catcher Relationship Specialty Start Date End Date Ernie Noriega MD [address] [place] [address] PCP - General Internal Medicine 08/25/19 documented as of this encounter
--- OUTSIDE RECORDS SUMMARY | 2024-12-22 19:23 | XMS_ITS ---
Author Organization [facility] Address [address] [place] [address] Care Team Providers Care Energy Specialist Name Role Phone [place] Ro MD, Ernie Primary Care Provide r Rodrick Juarez [phone] REASON FOR VISIT PROCEDURE TOMORROW Encounters Encounter Location Date Provider Diagnosis [facility] [address] [place] [address] 03/17/2024 Rodrick Millan Plan Of Treatment No Information Progress Notes * ISHMAEL HINOJOSADOB: 3 (58 yo F)Acc No.[id number]:03/17/2024 Patient:?ISHMAEL HINOJOSA :1965???Age:58 Y???Sex:Female Address:[address] [place], [address] * true * Date:? Generated for Gonzálezi pietro/Jean-Paul/eTransmitting on:?12/22/2024 07:22 PM EDT
--- OUTSIDE RECORDS SUMMARY | 2024-12-22 19:23 | XMS_ITS | Encounter Summary ---
Author Organization [facility] Address [address] [place] [address] Care Team Providers Care Flexboard Operator Name Role Phone Ernie Merritt MD Primary Care Provi bobo Reason for Visit * Auth/Cert (Routine) Specialty Diagnoses / Procedures Referred By Bro t Referred To Contact Diagnoses Trigger finger, unspecified finger TRIGGER FINGER LEFT INDEX FINGER Procedures [place] INCISION TENDON SHEATH LEFT A1 JOAO/TRIGGER FINGER RELEASE INDEX FINGER Trista David MD [address] [address] Phone: tel: fax: [facility] OR [address] [place] [address] Phone: tel: Referral ID Status Reason Start Date Expiration Date Visits Re quested Visits Authorized [id number] 1 1 Encounter Details Date Type Department Care Team (Late st Contact Info) Description 12/07/2024 1:30 PM EST - 12/07/2024 3:00 PM EST Surgery [facility] OR [address] [place] [address] Trista David MD [address] [address] LEFT A1 JOAO/TRIGGER FINGER RELEASE INDEX FINGER [97514 (CPT??)] Surgery Details Date/Time Status Location OR Service Patient Class Case Cl ass Case Type Trauma Case? 12/07/2024 1:30 PM Posted [facility] OR [facility] Orthopedics [facility] Outpatient Surgery F - Elective [...] dry dressing at [facility] - No driving until [...] discoloration. [facility] Trista David MD [address] [place] [address] If you have any questions and or cannot keep your appointment, please contact the [facility] office at [phone] * Attachments The following attachments cannot be sent through Care Everywhere. * Sedation (Barbadian) documented in this encounter Medications at Time [...] FINGER (L) OPERATIVE NOTE Date: 12/07/2024 Location: [facility] OR Name: Miguelina Julien, : 1965, Diagnosis Pre-op Diagnosis * Trigger finger, unspecified finger [M65.30] Post-op Diagnosis * Trigger finger, unspecified finger [M65.30] Procedures LEFT A1 JOAO/TRIGGER FINGER RELEASE INDEX FINGER 20988 - [place] INCISION TENDON SHEATH Indications: Miguelina Julien is an 59 y.o. female who is having surgery for TRIGGER FINGER LEFT INDEX FINGER. She has had multiple surgeries at other sites previously for triggering. Surgeon(s) & Union Organiser(s) * Trista David MD - Primary Anesthesia: Monitor Anesthesia Care and local anesthesia ASA: II Estimated Blood Loss: Minimal Procedure Details: ICD-9: 727.03 ICD-10: M65.30 (UNSPECIFIED) cpt: 98687 The patient was identified in the preoperative [...] A small self-retaining retractor was placed. My buyer assistant held the Ragnell retractors as well [...] Procedure Name Priority Date/Time Associated Diagnosis Comments [place] INCISION TENDON SHEATH 12/07/2024 12:32 PM EST [...] (New Bag - Prov ider: Agnieszka Villatoro, PRE BILLING CLINICIAN) sodium chloride 0.9 % flush 10 mL(Linked [...] 12/07/2024 documented in this encounter Care Teams Flexboard Operator Relationship Specialty Start Date End Date Ernie Merritt MD [address] [place] [address] [place] [address] PCP - General Internal Medicine 05/20/21 documented as of this encounter
--- OUTSIDE RECORDS SUMMARY | 2024-12-22 19:23 | XMS_ITS | Encounter Summary ---
Author Organization [facility] Address [address] [place] [address] Care Team Providers Care Alodize Machine Operator Name Role Phone Ernie Merritt MD Primary Care Provi bobo Reason for Visit * Auth/Cert (Routine) Specialty Diagnoses / Procedures Referred By Contkishore t Referred To Contact Diagnoses Trigger finger, unspecified finger TRIGGER FINGER LEFT INDEX FINGER Procedures [place] INCISION TENDON SHEATH LEFT A1 JOAO/TRIGGER FINGER RELEASE INDEX FINGER Trista David MD [address] [address] Phone: tel: fax: [facility] OR [address] [place] [address] Phone: tel: Referral ID Status Reason Start Date Expiration Date Visits Re quested Visits Authorized [id number] 1 1 Encounter Details Date Type Department Care Team (Late st Contact Info) Description 12/07/2024 12:30 PM EST Anesthesia Event [facility] Main OR [address] [place] [address] Irvin Fields MD [address] [place] [address] Agnieszka Villatoro CRNA [address] [place] [phone] Anesthesia Record Procedure Summary Procedure Name Responsible [...] Procedure Summary Date: 12/07/24 Room / Location: [address] [place] Anesthesia Start: 1230 Anesthesia Stop: [...] mg documented in this encounter Care Teams Alodize Machine Operator Relationship Specialty Start Date End Date Ernie Merritt MD [address] [place] [address] [place] [address] PCP - General Internal Medicine 05/20/21 documented as of this encounter
== END 2024-12-22 16:34 | disposition home or self-care (01) ==
LOC: HO.ED 16:27
PROVIDERS: Emergency Provider Emergency Medicine; PCP Internal Medicine
DX: M79.671 Pain in right foot (principal)
CPT/HCPCS: 99282; 99283

== ENCOUNTER 2025-01-05 09:49 | Outpatient (REF) | payer MEDICAID, SELFPAY ==
--- OUTSIDE RECORDS SUMMARY | 2025-01-05 12:11 | XMS_ITS | Encounter Summary ---
Author [facility] Address [address] [place] [address] Care Team Providers Care Information Systems Manager Name Role Phone Ernie Merritt MD Primary Care Provi bobo Reason for Visit * Reason Comments Post-op Encounter Details Date Type Department Care Team ([facility] st Contact Info) Description 12/16/2024 11:00 AM EST Office Visit Orthopedic Surgery - [place] [address] [facility] [address] [place] [phone] Nicolasa Yu PA [address] [facility] [address] [place] [phone] S/P trigger finger release (Primary Dx) Social [...] Primary documented in this encounter Care Teams Information Systems Manager Relationship Specialty Start Date End Date Ernie Merritt MD [address] [place] [address] PCP - General Internal Medicine 05/20/21 documented as of this encounter
--- OUTSIDE RECORDS SUMMARY | 2025-01-05 12:12 | XMS_ITS | Encounter Summary ---
Author Organization [facility] Address [address] [place] [address] Care Team Providers Care Library Technology Instructor Name Role Phone Ernie Merritt Primary Care Provider + Encounter Details Date Type Department Care Team (Late st Contact Info) Description 09/16/2024 Orders Only [facility] - External Imaging [address] [place] [address] Radiology, External [address] [place] [address] Social History Tobacco Use Types Packs/Day Years [...] Info) Description 03/14/2025 3:00 PM EDT Follow-Up [facility] [address] [place], [place] [phone] Christopher Peres MD [address] [place] [address] Pending Results Name Type Priority Associated Diagnoses Date /Time MRI Transfer of Outside Films L-Spine Imaging [place] Routine 12/08/2024 11:00 AM EST Scheduled Orders Name Type Priority Associated Diagnoses Orde r Schedule MRI Transfer of Outside Films L-Spine Imaging [place] Routine 1 Occurrences starting 12/08/2024 until 01/05/2026 documented as of this encounter Visit Diagnoses Not on filedocumented in this encounter Care Teams Library Technology Instructor Relationship Specialty Start Date End Date Ernie Merritt [address] [place] [address] PCP - General Internal Medicine 11/29/24 documented as of this encounter
--- OUTSIDE RECORDS SUMMARY | 2025-01-05 12:12 | XMS_ITS | Clinical Summary ---
Author Organization 175 [facility] Address [address] [place] [address] Phone Care Team Providers Care Accountant Controller Name Role Phone Ernie Merritt MD Primary [...] needed for severe pain. 12/07/19 25 Discontinued Active Problems Problem Noted Date Diagnosed Date Acquired trigger finger of left index finger De Quervain's tenosynovitis, left 09/01/2023 Trigger thumb of right hand 07/03/2021 Encounters Date Type Department Care Team Description 12/16/2024 11:00 AM EST Office Visit Orthopedic Surgery [facility] [address] [phone] Nicolasa Yu PA S/P trigger finger release (Primary Dx) 12/07/2024 1:30 PM EST - 12/07/2024 3:00 PM EST Surgery [facility] OR [address] [place] [phone] Trista David MD LEFT A1 JOAO/TRIGGER FINGER RELEASE INDEX FINGER [17836 (CPT??)] 12/07/2024 12:30 PM EST Anesthesia Event [facility] OR [address] [place] [phone] Irvin Fields MD Decandio, Laura, CRNA 12/07/2024 11:51 AM EST - 12/07/2024 2:43 PM EST Hospital Encounter [facility] OR [address] [place] [phone] Trista David MD Discharge Disposition: Home or Self Care 11/23/2024 11:00 AM EST Office Visit Orthopedic [facility] 160 175 [facility] 160 [place] [phone] Leroy Lees MD Rotator cuff arthropathy, left (Primary Dx) 11/22/2024 10:45 AM EST Consult Orthopedic Surgery [facility] 175 [facility] [address] [place] [phone] Trista David MD Acquired trigger finger of left index finger (Primary Dx) 11/04/2024 Telephone Orthopedic Surgery - [address] [place] [address] Eulalia Velez from Last 3 [...] finger, unspecified finger Case Notes PA ASSIST UT ARTHROCENTESIS/ PIRATION/INJECTIO N MAJOR JOINT/BURSA W/O U/S GUIDANCE Routine 11/23/2024 11:00 AM EST Rotator cuff arthropathy, left from Last 3 Months Results * [place] ARTHROCENTESIS/ASPIRATION/INJECTION MAJOR JOINT/BURSA W/O U/S GUIDANCE (11/23/2024 [...] inal Result from Last 3 Months Insurance MEDICAID - [place] Advance Directives * Full [...] currently active code status orders. Care Teams Accountant Controller Relationship Specialty Start Date End Date Ernie Merritt MD [address] [place] [address] [facility] [place] [address] PCP - General Internal Medicine 05/20/21
--- OUTSIDE RECORDS SUMMARY | 2025-01-05 12:12 | XMS_ITS | Referral Summary ---
Author Organization [facility] Address [address] [place] [address] Care Team Providers Care Paint Stockman Name Role Phone Ernie Merritt Primary Care Provider + Encounters Date Type Department Care Team Description 12/14/2024 9:00 AM EST Office Visit [facility] [address] [place] [address] Christopher Peres MD Chronic bilateral low back pain with bilateral sciatica (Primary Dx); H/O cervical spine surgery 12/13/2024 Telephone [facility] [address] [place] [address] Christopher Peres MD 12/08/2024 Telephone [facility] [address] [place] [address] Christopher Peres MD 11/01/2024 Orders Only [facility] - External Imaging [address] [place] [address] Radiology, External from Last 3 Months Allergies [...] propionate (FLONASE) 50 mcg/actuation nasal spray [employer] [place](s) Both Nares Twice Daily 3 Active tamsulosin [...] Info) Description 03/14/2025 3:00 PM EDT Follow-Up [facility] [address] [place] [address] Christopher Peres MD [address] [place], [place] [phone] Procedures * Due to [place] [employer] law, this organization might not be sharing [...] Last 3 Months Results * Due to [place] [employer] law, this organization might not be sharing negative HIV tests. * MRI Cervical Spine WO Contrast (12/21/2024 7:55 AM EDT) Anatomical Region Laterality Modality Spine, C-spine Magnetic Resonan ce 12/21/2024 7:30 AM EDT Narrative 12/22/2024 2:31 PM EDT [facility] Accession Number: [id number] Patient Name: Miguelina Julien Date of : 1965 Date of Exam: 12-21-2024 Referring Physician: Christopher Peres ?[facility] ?[address] [place] [address] ?[place], [place] [address] Exam: MR Cervical Spine (C-) CPT 20757 Room Description: [facility] 1.5 MR Cervical Spine (C-) CPT 97595 INDICATION: previous C spine surgery, appears tight on MRI 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 ? Workstation ID: [id number] Narrative 12/14/2024 5:30 PM EST COMPARISON: There are no prior studies available for comparison at this time. Resulting Agency Comment [id number] Procedure Note Stone Reid MD - 12/14/2024 [...] possible to obtain thecompleted interpretation. Workstation ID: [id number] us Christopher Peres MD IMG XR PROCEDURES [...] obtain the completed interpretation. ? Workstation ID: [id number] Narrative 12/14/2024 5:30 PM EST COMPARISON: There are no prior studies available for comparison at this time. Resulting Agency Comment [id number] Procedure Note Stone Reid MD - 12/14/2024 [...] possible to obtain thecompleted interpretation. Workstation ID: [id number] us Christopher Peres MD IMG XR PROCEDURES Final Res ult * MRI Thoracic and Lumbar Spine, Outside Result (11/01/2024) Anatomical Region Laterality Modality Other 11/01/2024 us Onbase Scan Carol AMB EXTERNAL RESULT PROCEDURE S Final Result from Last 3 Months [place] [id number] Care Teams Paint Stockman Relationship Specialty Start Date End Date Ernie Merritt [address] [place] [address] PCP - General Internal Medicine 11/29/24
--- OUTSIDE RECORDS SUMMARY | 2025-01-05 12:12 | XMS_ITS | Encounter Summary ---
Author Organization [facility] Address [address] [place] [address] Care Team Providers Care Able Seaman Name Role Phone Ernie Merritt MD Primary Care Provi bobo Reason for Visit * Auth/Cert (Routine) Specialty Diagnoses / Procedures Referred By Contkishore t Referred To Contact Diagnoses Trigger finger, unspecified finger TRIGGER FINGER LEFT INDEX FINGER Procedures [place] INCISION TENDON SHEATH LEFT A1 JOAO/TRIGGER FINGER RELEASE INDEX FINGER Trista David MD [address] [address] Phone: tel: fax: [facility] OR [address] [place] [address] Phone: tel: Referral ID Status Reason Start Date Expiration Date Visits Re quested Visits Authorized [id number] 1 1 Encounter Details Date Type Department Care Team (Late st Contact Info) Description 12/07/2024 12:30 PM EST Anesthesia Event [facility] Main OR [address] [place] [address] Irvin Fields MD [address] [place] [address] Agnieszka Villatoro CRNA [address] [place] [phone] Anesthesia Record Procedure Summary Procedure Name Responsible [...] Procedure Summary Date: 12/07/24 Room / Location: [address] [place] Anesthesia Start: 1230 Anesthesia Stop: [...] mg documented in this encounter Care Teams Able Seaman Relationship Specialty Start Date End Date Ernie Merritt MD [address] [place] [address] [place] [address] PCP - General Internal Medicine 05/20/21 documented as of this encounter
--- OUTSIDE RECORDS SUMMARY | 2025-01-05 12:12 | XMS_ITS ---
Author Organization [facility] Address [address] [place] [address] Care Team Providers Care Foiling Machine Operator Name Role Phone [place] Ro MD, Ernie Primary Care Provide r Rodrick Juarez [phone] REASON FOR VISIT screening Encounters Encounter Location Date Provider Diagnosis [facility] [address] [place], [place] [phone] 02/03/2024 Rodrick Millan Plan Of Treatment No Information Progress Notes * ISHMAEL HINOJOSADOB: 3 (59 yo F)Acc No.[id number]:02/03/2024 COLON WITH MAC Patient:?ISHMAEL HINOJOSA Provider:?Rodrick Millan MD :1965???Age:58 Y???Sex:Female D ate:02/03/2024 Address:[address] [place], [place] [address]PEPE NEIL Megan [facility] Pcp:Ernie bonilla MD Subjective: * Chief Complaints: [...] MD Date:? 024 Generated for Printi ng/Faanjelg/eTransmitting on:?01/05/2025 12:12 PM EDT
--- OUTSIDE RECORDS SUMMARY | 2025-01-05 12:12 | XMS_ITS | Clinical Summary ---
Author Organization [facility] Address [address] [place] [address] Care Team Providers Care Manager Fraud Name Role Phone Ernie Merritt Primary Care [...] propionate (FLONASE) 50 mcg/actuation nasal spray SMARTSI [place](s) Both Nares Twice Daily 3 Active tamsulosin [...] Description 12/14/2024 9:00 AM EST Office Visit [facility] [address] [place] [address] Christopher Peres MD Chronic bilateral low back pain with bilateral sciatica (Primary Dx); H/O cervical spine surgery 12/13/2024 Telephone [facility] [address] [place] [address] Christopher Peres MD 12/08/2024 Telephone [facility] [address] [place] [address] Christopher Peres MD 11/01/2024 Orders Only [facility] - External Imaging [address] [place] [address] Radiology, External from Last 3 Months Social [...] Info) Description 03/14/2025 3:00 PM EDT Follow-Up [facility] Neurosurgery Clinic [address] [place] [address] Christopher Peres MD [address] [place], [place] [phone] Health Maintenance Due Date Last Done Comments [...] complete this topic Procedures * Due to [place] [employer] law, this organization might not be sharing [...] Last 3 Months Results * Due to [place] [employer] law, this organization might not be sharing negative HIV tests. * MRI Cervical Spine WO Contrast (12/21/2024 7:55 AM EDT) Anatomical Region Laterality Modality Spine, C-spine Magnetic Resonan ce 12/21/2024 7:30 AM EDT Narrative 12/22/2024 2:31 PM EDT [facility] Accession Number: [id number] Patient Name: Miguelina Julien Date of : 1965 Date of Exam: 12-21-2024 Referring Physician: Christopher Peres ?[facility] ?[address] [place] [address] ?[place] [address] Exam: MR Cervical Spine (C-) CPT 46928 Room Description: [facility] 1.5 MR Cervical Spine (C-) CPT 75245 INDICATION: previous C spine surgery, appears tight on MRI 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 ? Workstation ID: [id number] Narrative 12/14/2024 5:30 PM EST COMPARISON: There are no prior studies available for comparison at this time. Resulting Agency Comment [id number] Procedure Note Stone Reid MD - 12/14/2024 [...] possible to obtain thecompleted interpretation. Workstation ID: [id number] us Christopher Peres MD IMG XR PROCEDURES [...] obtain the completed interpretation. ? Workstation ID: [id number] Narrative 12/14/2024 5:30 PM EST COMPARISON: There are no prior studies available for comparison at this time. Resulting Agency Comment [id number] Procedure Note Stone Reid MD - 12/14/2024 [...] possible to obtain thecompleted interpretation. Workstation ID: [id number] us Christopher Peres MD IMG XR PROCEDURES Final Res ult * MRI Thoracic and Lumbar Spine, Outside Result (11/01/2024) Anatomical Region Laterality Modality Other 11/01/2024 us Onbase Scan Carol AMB EXTERNAL RESULT PROCEDURE S Final Result from Last [address] [place], [place] [address]HE[facility] [place] [id number] [place] Care Teams Manager Fraud Relationship Specialty Start Date End Date Ernie Merritt [address] [place] [address] PCP - General Internal Medicine 11/29/24
--- OUTSIDE RECORDS SUMMARY | 2025-01-05 12:12 | XMS_ITS | Encounter Summary ---
Author Organization [facility] Address [address] [place] [address] Care Team Providers Care Patch Finisher Name Role Phone Ernie Merritt MD Primary Care Provi bobo Reason for Visit * Auth/Cert (Routine) Specialty Diagnoses / Procedures Referred By Bro t Referred To Contact Diagnoses Trigger finger, unspecified finger TRIGGER FINGER LEFT INDEX FINGER Procedures SC INCISION TENDON SHEATH LEFT A1 JOAO/TRIGGER FINGER RELEASE INDEX FINGER Trista David MD [address] [address] Phone: tel: fax: [facility] OR [address] [place] [phone] Phone: tel: Referral ID Status Reason Start Date Expiration Date Visits Re quested Visits Authorized [id number] 1 1 Encounter Details Date Type Department Care Team (Late st Contact Info) Description 12/07/2024 1:30 PM EST - 12/07/2024 3:00 PM EST Surgery [facility] OR [address] [place] [address] Trista David MD [address] [address] LEFT A1 JOAO/TRIGGER FINGER RELEASE INDEX FINGER [37364 (CPT??)] Surgery Details Date/Time Status Location OR Service Patient Class Case Cl ass Case Type Trauma Case? 12/07/2024 1:30 PM Posted [facility] OR [facility] Orthopedics [facility] Outpatient Surgery F - Elective Panel [...] dry dressing at all times until [facility] - No driving until you [...] discoloration. [facility] Trista David MD [address] [place] [address] If you have any questions and or cannot keep your appointment, please contact the [facility] office at [phone] * Attachments The following attachments cannot be sent through Care Everywhere. * Sedation (Andorran) documented in this encounter Medications at Time [...] FINGER (L) OPERATIVE NOTE Date: 12/07/2024 Location: [facility] OR Name: Miguelina Julien, : 1965, Diagnosis Pre-op Diagnosis * Trigger finger, unspecified finger [M65.30] Post-op Diagnosis * Trigger finger, unspecified finger [M65.30] Procedures LEFT A1 JOAO/TRIGGER FINGER RELEASE INDEX FINGER 78115 - SC INCISION TENDON SHEATH Indications: Miguelina Julien is an 59 y.o. female who is having surgery for TRIGGER FINGER LEFT INDEX FINGER. She has had multiple surgeries at other sites previously for triggering. Surgeon(s) & Protection Analyst(s) * Trista David MD - Primary Anesthesia: Monitor Anesthesia Care and local anesthesia ASA: II Estimated Blood Loss: Minimal Procedure Details: ICD-9: 727.03 ICD-10: M65.30 (UNSPECIFIED) cpt: 31363 The patient was identified in the preoperative [...] A small self-retaining retractor was placed. My therapy assistant held the Ragnell retractors as well [...] Procedure Name Priority Date/Time Associated Diagnosis Comments SC INCISION TENDON SHEATH 12/07/2024 12:32 PM EST [...] (New Bag - Prov ider: Agnieszka Villatoro, SENIOR RESEARCH EXECUTIVE) sodium chloride 0.9 % flush 10 mL(Linked [...] 1254, Intraprocedure 1254 (Given - Provid er: Trsita David MD - Comment: MIXED W LIDO [...] 12/07/2024 documented in this encounter Care Teams Patch Finisher Relationship Specialty Start Date End Date Ernie Merritt MD [address] [place] [address] [place] [address] PCP - General Internal Medicine 05/20/21 documented as of this encounter
--- OUTSIDE RECORDS SUMMARY | 2025-01-05 12:12 | XMS_ITS | Encounter Summary ---
Author Organization [facility] Address [address] [place] [address] Care Team Providers Care Horse Show Judge Name Role Phone Ernie Merritt Primary Care Provider + Encounter Details Date Type Department Care Team (Late st Contact Info) Description 12/13/2024 Telephone [facility] [address] [place] [address] Christopher Peres MD [address] [place], [place] [phone] Social History Tobacco Use Types Packs/Day Years [...] 12/13/2024 11:00 AM EST Left voicemail using airport electrician services to let patient know that Dr Peres would not be available on due to an emergency and we need her to call back to be rescheduled. documented in this encounter Plan of Treatment Upcoming Encounters Date Type Department Care Team (Late st Contact Info) Description 03/14/2025 3:00 PM EDT Follow-Up [facility] [address] [place] [address] Christopher Peres MD [address] [place] [address] documented as of this encounter Visit Diagnoses Not on filedocumented in this encounter Care Teams Horse Show Judge Relationship Specialty Start Date End Date Ernie Merritt [address] [place] [address] PCP - General Internal Medicine 11/29/24 documented as of this encounter
--- OUTSIDE RECORDS SUMMARY | 2025-01-05 12:12 | XMS_ITS ---
Author Organization [facility] Address [address] [place] [address] Care Team Providers Care Pamphlet Distributor Name Role Phone Milton Ro MD, Ernie Primary Care Provide r Rodrick Juarez [phone] REASON FOR VISIT PROCEDURE TOMORROW Encounters Encounter Location Date Provider Diagnosis [facility] [address] [place] [address] 03/17/2024 Rodrick Millan Plan Of Treatment No Information Progress Notes * ISHMAEL HINOJOSADOB: [birth year] (58 yo F)Acc No.[id number]:03/17/2024 Patient:?ISHMAEL HINOJOSA :1965???Age:58 Y???Sex:Female Address:[address] [place], [address] * true * Date:? Generated for Gonzálezi pietro/Jean-Paul/eTransmitting on:?01/05/2025 12:12 PM EDT
--- OUTSIDE RECORDS SUMMARY | 2025-01-05 12:12 | XMS_ITS | Encounter Summary ---
Author Organization [facility] Address [address] [place] [address] Care Team Providers Care Die Repairer Stamping Name Role Phone Ernie Merritt Primary Care Provider + Reason for Referral * MRI/CAT/PET Scan (Routine) - Closed Specialty Diagnoses / Procedures Referred By Contac t Referred To Contact Diagnoses H/O cervical spine surgery Procedures MRI Cervical Spine WO Contrast Christopher Peres MD [address] [place] [address] Phone: tel: fax: Referral ID Status Reason Start Date Expiration Date Visits Re quested Visits Authorized [id number] Closed 12/14/2024 06/15/2026 1 1 * MRI/CAT/PET Scan (Routine) - Pending Review Specialty Diagnoses / Procedures Referred By Contac t Referred To Contact Radiology Diagnoses Chronic bilateral low back pain with bilateral sciatica Procedures CT Lumbar Spine WO Contrast Christopher Peres MD [address] [place] [address] Phone: tel: fax: Referral ID Status Reason Start Date Expiration Date V isits Requested Visits Authorized [id number] Pending Review 12/14/2024 06/15/2026 1 1 * MRI/CAT/PET Scan (Routine) - Pending Review Specialty Diagnoses / Procedures Referred By Contac t Referred To Contact Radiology Diagnoses Chronic bilateral low back pain with bilateral sciatica Procedures CT Thoracic Spine WO Contrast Christopher Peres MD [address] [place] [address] Phone: tel: fax: Referral ID Status Reason Start Date Expiration Date V isits Requested Visits Authorized [id number] Pending Review 12/14/2024 06/15/2026 1 1 * Physical Therapy (Routine) - Pending Review Specialty Diagnoses / Procedures Referred By Contac t Referred To Contact Physical Therapy Diagnoses Chronic bilateral low back pain with bilateral sciatica Christopher Peres MD [address] [place] [address] Phone: tel: fax: Referral ID Status Reason Start Date Expiration Date Visits Requested Visits Authorized [id number] Pending Review Specialty Services Required 12/14/2024 06/15/2026 [...] on the Thoracic MRI, Imaging reviewed with [facility] colleagues: There is a large arachnoid cyst extending most of the mid to lower Thoracic spine not reported by the Radiologist. It does compress the cord. the area in question lower down at T11, ? disc herniation. There are no cord signal changes. Anna Navas [address] [place] [address] Phone: tel: Neema Bhagat MD [address] [place] [address] Phone: tel: fax: Referral ID Status Reason Start Date Expiration Date V isits Requested Visits Authorized [id number] Pending Review 11/29/2024 05/31/2026 6 6 Encounter Details Date Type Department Care Team (Latest Contact Info) Description 12/14/2024 9:00 AM EST Office Visit [facility] [address] [place], [place] [phone] Christopher Peres MD [address] [place] [address] Chronic bilateral low back pain with bilateral [...] Info) Description 03/14/2025 3:00 PM EDT Follow-Up [facility] [address] [place] [address] Christopher Peres MD [address] [place] [address] Scheduled Orders Name Type Priority Associated Diagnoses [...] Narrative 12/22/2024 2:31 PM EDT [facility] Accession Number: [id number] Patient Name: Miguelina Julien Date of : 1965 Date of Exam: 12-21-2024 Referring Physician: Christopher Peres ?[facility] ?[address] [place] [address] ?[place] [address] Exam: MR Cervical Spine (C-) CPT 57832 Room Description: [facility] Esp 1.5 MR Cervical Spine (C-) CPT 33255 INDICATION: previous C spine surgery, appears tight on MRI 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 ? Workstation ID: [id number] Narrative 12/14/2024 5:30 PM EST COMPARISON: There are no prior studies available for comparison at this time. Resulting Agency Comment [id number] Procedure Note Stone Reid MD - 12/14/2024 [...] possible to obtain thecompleted interpretation. Workstation ID: [id number] Christopher Peres MD IMG XR PROCEDURES Final Res ult documented in this encounter Visit Diagnoses Diagnosis Chronic bilateral low back pain with bilateral sciatica- Primary H/O cervical spine surgery documented in this encounter Care Teams Die Repairer Stamping Relationship Specialty Start Date End Date Ernie Merritt [address] [place] [address] PCP - General Internal Medicine 11/29/24 documented as of this encounter
--- OUTSIDE RECORDS SUMMARY | 2025-01-05 12:12 | XMS_ITS | Encounter Summary ---
Author Organization [facility] Address [address] [place] [address] Care Team Providers Care Case Management Assistant Name Role Phone Ernie Merritt Primary Care Provider + Encounter Details Date Type Department Care Team (Late st Contact Info) Description 11/01/2024 Orders Only [facility] - External Imaging [address] [place] [address] Radiology, External [address] [place] [address] Social History Tobacco Use Types Packs/Day Years [...] 3:00 PM EDT Follow-Up [facility] Neurosurgery Clinic [address] [place], [place] [phone] Christopher Peres MD [address] [place], [place] [phone] Pending Results Name Type Priority Associated Diagnoses [...] on filedocumented in this encounter Care Teams Case Management Assistant Relationship Specialty Start Date End Date Enrie Merritt [address] [place] [address] PCP - General Internal Medicine 11/29/24 documented as of this encounter
--- OUTSIDE RECORDS SUMMARY | 2025-01-05 12:13 | XMS_ITS | Encounter Summary ---
Author Organization [facility] Address [address] [place] [address] Care Team Providers Care Stone Carriage Operator Name Role Phone Ernie Merritt Primary Care Provider + Encounter Details Date Type Department Care Team (Late st Contact Info) Description 12/08/2024 Telephone [facility]surgery [facility] [address] [place] [address] Christopher Peres MD [address] [place] [phone] Social History Tobacco Use Types Packs/Day Years [...] EST Patient called back and we got parts interpreter Rodger ID [id number] on the line. We rescheduled appointment with Dr. Peres for 12/15 at 8:00 am. Patient is aware of date, time and location and ok with these changes. * Telephone Encounter - Allyn Macario - 12/08/2024 3:27 PM EST Called patient using parts interpreter Perlita ID [id number] and left voicemail with both patient and asking for a call back to reschedule Thursday's appointment with another provider. Patient should be scheduled with Dr. Peres. documented in this encounter Plan of Treatment Upcoming Encounters Date Type Department Care Team (Late st Contact Info) Description 03/14/2025 3:00 PM EDT Follow-Up [facility] Neurosurgery Clinic [address] [place], [place] [phone] Christopher Peres MD [address] [place], [place] [phone] documented as of this encounter Visit Diagnoses Not on filedocumented in this encounter Care Teams Stone Carriage Operator Relationship Specialty Start Date End Date Ernie Merritt [address] [place] [address] PCP - General Internal Medicine 11/29/24 documented as of this encounter
--- OUTSIDE RECORDS SUMMARY | 2025-01-05 12:13 | XMS_ITS | Encounter Summary ---
Author Organization [facility] Address [address] [place] [address] Care Team Providers Care Communication Assistant Name Role Phone Ernie Merritt MD Primary Care Provi [facility] Reason for Visit * Auth/Cert (Routine) Specialty Diagnoses / Procedures Referred By Bro t Referred To Contact Diagnoses Trigger finger, unspecified finger TRIGGER FINGER LEFT INDEX FINGER Procedures NM INCISION TENDON SHEATH LEFT A1 JOAO/TRIGGER FINGER RELEASE INDEX FINGER Trista David MD [address] [address] Phone: tel: fax: [facility] OR [address] [place] [phone] Phone: tel: Referral ID Status Reason Start Date Expiration Date Visits Re quested Visits Authorized [id number] 1 1 Encounter Details Date Type Department Care Team (Latest Contact Info) Description 12/07/2024 11:51 AM EST - 12/07/2024 2:43 PM EST Hospital Encounter [facility] OR [address] [place] [address] Trista David MD [address] [address] Discharge Disposition: Home or Self [...] discoloration. [facility] Trista David MD [address] [place] [address] If you have any questions and or cannot keep your appointment, please contact the [facility] office at [phone] * Attachments The following attachments cannot be sent through Care Everywhere. * Sedation (Kiswahili) documented in this encounter Medications at Time [...] FINGER (L) OPERATIVE NOTE Date: 12/07/2024 Location: [facility] OR Name: Miguelina Julien, : 1965, Diagnosis Pre-op Diagnosis * Trigger finger, unspecified finger [M65.30] Post-op Diagnosis * Trigger finger, unspecified finger [M65.30] Procedures LEFT A1 JOAO/TRIGGER FINGER RELEASE INDEX FINGER 33645 - NM INCISION TENDON SHEATH Indications: Miguelina Julien is an 59 y.o. female who is having surgery for TRIGGER FINGER LEFT INDEX FINGER. She has had multiple surgeries at other sites previously for triggering. Surgeon(s) & Box Fabricator(s) * Trista David MD - Primary Anesthesia: Monitor Anesthesia Care and local anesthesia ASA: II Estimated Blood Loss: Minimal Procedure Details: ICD-9: 727.03 ICD-10: M65.30 (UNSPECIFIED) cpt: 39755 The patient was identified in the preoperative [...] A small self-retaining retractor was placed. My retail sales assistant held the Ragnell retractors as well [...] Procedure Name Priority Date/Time Associated Diagnosis Comments NM INCISION TENDON SHEATH 12/07/2024 12:32 PM EST [...] (New Bag - Prov ider: Agnieszka Villatoro, PROCESSING ASSISTANT) sodium chloride 0.9 % flush 10 mL(Linked [...] 12/07/2024 documented in this encounter Care Teams Communication Assistant Relationship Specialty Start Date End Date Ernie Merritt MD [address] [place] [address] [facility] [place] [address] PCP - General Internal Medicine 05/20/21 documented as of this encounter
== END 2025-01-05 09:50 | disposition home or self-care (01) ==
LOC: HO.MAMMO 09:49
PROVIDERS: PCP Internal Medicine; Visit Provider Internal Medicine
DX: Z12.31 Encounter for screening mammogram for malignant neoplasm of breast (principal)
CPT/HCPCS: 77063; 77067

== ENCOUNTER → 2025-01-05 10:00 | Outpatient (BNV) | payer MEDICAID, SELFPAY | PROVIDERS: PCP Internal Medicine; Visit Provider Internal Medicine | DX: Z12.31 Encounter for screening mammogram for malignant neoplasm of breast (principal) | CPT/HCPCS: 77063; 77067 ==

== ENCOUNTER 2025-01-10 10:44 | Outpatient (AMB) | payer MEDICAID, SELFPAY ==
--- NOTE | 2025-01-10 11:07 | MHC.OFFVIS ---
Intake Visit Reasons: R leg micro consultation Intake Note: Patient presents for micro consult. She has bilateral varicose veins that are painful to the touch. She gets swelling, cramping and her legs feel hot to the touch. States she has pain on and off for about two years. Accompanied by: Unknown Allergies No Known Allergies Allergy (Verified 01/10/25 11:10) HPI HPI R leg micro consultation: Details: The patient is a 59-year-old female presenting with concerns regarding varicose veins predominantly affecting the right leg. She had a weighted intervention to undergo knee surgery 1st. She had undergone right knee surgery on 02/03/2024. She reports symptoms affecting both legs, with the right leg being more significantly impacted. She notes a deterioration in her symptoms over time. She does have prominent varicosities which have been a source of pain and discomfort for her. She has used compression with minimal relief. [facility] Medical History Right-sided ischial pain Tubular adenoma of colon Hematuria Dysuria Overweight Varicose vein of leg Chronic tension-type headache, not intractable Neuropathic pain Hyperlipidemia Carpal tunnel syndrome Cervical radiculopathy Depressive disorder Diverticulosis HTN (hypertension) Osteoarthritis Asthma Essential hypertension Low back pain Pre-diabetes Seasonal allergies GERD (gastroesophageal reflux disease) Post-COVID syndrome COPD (chronic obstructive pulmonary disease) Arthritis Anxiety Depression Hesitancy of micturition Moderate persistent asthma Surgical History History of carpal tunnel release Hx of eye surgery Hx of cataract extraction Hx of shoulder surgery History of carpal tunnel surgery of right wrist H/O colonoscopy History of total right knee replacement History of back surgery History of total left knee replacement (~06/2020) Family History Mother Heart disease Sister HTN (hypertension) Sister HTN (hypertension) Diabetes Maternal Grandmother Cervical cancer Social History Household Members: Spouse Housing: House Are you a primary intensive care ambulance paramedic to a significant other at home: No Do you presently have visiting nurse or other home services: No Alcohol intake: never Comment: in bathroom, aware of trip hazard Patient Tobacco Use Status: Former Tobacco user Tobacco use type: Cigarette Second Hand Smoke Exposure: No Substance Use Type: Marijuana Advance Directives Date on File: 12/17/21 service: No Current occupational status: unemployed Current occupation: Right Handed Gender identity: Female Review of Systems Const Reports as per HPI ENT Reports no additional complaints Card Denies chest pain, Denies chest pain at rest and Denies chest pain with activity Resp Denies chest congestion and Denies cough GI Reports no additional complaints Musc Details: pain over varicosities, aching of lower extremities, swelling, cramping, heaviness and tiredness, itching Denies abnormal gait Skin/Breast Reports pruritus and Denies wounds Neuro Reports no additional complaints and Denies abnormal gait Psych Denies no additional complaints Physical Exam Const General: cooperative, healthy appearing and comfortable Orientation/consciousness: oriented to person, oriented to place and oriented to time Neck Carotids: no bruits Chest Chest palpation & inspection: normal inspection of the chest and normal palpation of entire chest wall Resp Effort & Inspection: normal respiratory effort and able to speak in complete sentences Cardio Rate: regular rate Heart sounds: S1 normal heart sound present and S2 normal heart sound present Peripheral pulses: Peripheral pulses 2+ throughout GI Inspection: Yes normal to inspection Skin Other: +2 edema, large rope-like varicosities greater than 4 mm CEAP Classification C4 - skin color changes Ep - Etiology Primary As - superficial veins P - reflux General skin exam: dry skin Neuro General: oriented to person, oriented to place and oriented to time Extrem Right lower extremity: full ROM, normal capillary refill and edema Left lower extremity: full ROM, normal capillary refill and edema Psych Mental Status: mental status grossly normal Results Reviewed Results Reviewed: Brief summary of venous insufficiency testing is as follows 01/05/2024: right great saphenous vein: negative right small saphenous vein: negative right accessory vein: none present left great saphenous vein: negative left small saphenous vein: negative left accessory vein: none present Please note there is no evidence of any venous aneurysms or significant tortuosity Assessment & Plan Assessment & Plan (1) Varicose veins of right lower extremity with inflammation: Code(s): I83.11 - Varicose veins of right lower extremity with inflammation Category: Medical Plan: This patient has varicose veins with inflammation. They continue to be a source of discomfort for the patient. The patient has tried conservative treatment with compression, leg elevation and exercise program for over 3 months time. They have been compliant with all treatment. This has provided minimal relief for the patient. I do not anticipate this course of treatment will alter the underlying etiology. The patient has been scheduled for lower extremity venous treatment inclusive of --- right leg microphlebectomy. Risks, benefits, and complications of this procedure has been discussed in detail with the patient including but not limited to bleeding, infection, and the development of a DVT. The patient has demonstrated a clear understanding and has consented. We will schedule the patient as soon as possible. Thank you for allowing us to participate in this patient's care. If there are any questions or concerns please do not hesitate to contact us. Coding Level of Care Code Est Pt Level 4 (62010) Diagnoses Varicose veins of right lower extremity with inflammation I83.11
--- OUTSIDE RECORDS SUMMARY | 2025-01-10 12:51 | XMS_ITS | Encounter Summary ---
Author Organization [employer] Address [address] [place] [address] 7[address] [place] [address] Care Team Providers Care Dancing Teacher Name Role Phone Ernie Noriega MD Primary Care Provide r Reason for Visit * Reason Onset Date Comments Med Refill 08/13/2024 Encounter Details Date Type Department Care Team ([facility] st Contact Info) Description 08/13/2024 Refill [facility] MEDICINE [address] [place] [address] Ernie Noriega MD [address] [place] [address] Seasonal allergies Social History Tobacco Use Types [...] Office Visit [facility] MEDICINE [address] [place] [address] Ernie Noriega MD 230 [place] [address] documented as of this encounter Visit Diagnoses Diagnosis Seasonal allergies Allergic rhinitis, cause unspecified documented in this encounter Additional Health Concerns Assessment Noted Time PHQ-9 Depression Total Score: 2 01/21/20 24 1:25 PM EDT documented as of this encounter Care Teams Dancing Teacher Relationship Specialty Start Date End Date Ernie Noriega MD [address] [place] [phone] PCP - General Internal Medicine 08/25/19 documented as of this encounter
--- OUTSIDE RECORDS SUMMARY | 2025-01-10 12:51 | XMS_ITS | Encounter Summary ---
Author Organization [employer] Address [address] [place] [address] 7t [place] [address] Care Team Providers Care Invasive Cardiovascular Technologist Name Role Phone Ernie Noriega MD Primary Care Provide r Reason for Visit * Reason Onset Date Comments Med Refill 01/10/2025 Encounter Details Date Type Department Care Team ([facility] st Contact Info) Description 01/10/2025 Refill [facility] MEDICINE 230 [place] [address] Ernie Noriega MD 230 [place] [address] Chronic midline low back pain without sciatica [...] PM EDT Office Visit [facility] MEDICINE [address] [place] [address] Ernie Noriega MD [address] [place] [address] documented as of this encounter Visit Diagnoses Diagnosis Chronic midline low back pain without sciatica documented in this encounter Additional Health Concerns Assessment Noted Time PHQ-9 Depression Total Score: 2 01/21/20 24 1:25 PM EDT documented as of this encounter Care Teams Invasive Cardiovascular Technologist Relationship Specialty Start Date End Date Ernie Noriega MD [address] [place] [phone] PCP - General Internal Medicine 08/25/19 documented as of this encounter
--- OUTSIDE RECORDS SUMMARY | 2025-01-10 12:51 | XMS_ITS | Encounter Summary ---
Author Organization [employer] Address [address] [place] [address] 7t [place] [address] Care Team Providers Care Tape Control Skin Or Spar Mill Operator Name Role Phone Ernie Noriega MD Primary Care Provide r Reason for Visit * Reason Onset Date Comments Med Refill 01/26/2024 Encounter Details Date Type Department Care Team ([facility] st Contact Info) Description 01/26/2024 Refill [facility] MEDICINE 230 [place] [address] Ilsa Robison, ANP [address] [place] [address] Chronic midline low back pain without sciatica; [...] [facility] [address] [place] [address] Ernie Noriega MD [address] [place] [address] documented as of this encounter Visit Diagnoses Diagnosis Chronic midline low back pain without sciatica Cervical radiculopathy Brachial neuritis or radiculitis nos documented in this encounter Additional Health Concerns Assessment Noted Time PHQ-9 Depression Total Score: 2 01/21/20 24 1:25 PM EDT documented as of this encounter Care Teams Tape Control Skin Or Spar Mill Operator Relationship Specialty Start Date End Date Ernie Noriega MD [address] [place] [address] PCP - General Internal Medicine 08/25/19 documented as of this encounter
--- OUTSIDE RECORDS SUMMARY | 2025-01-10 12:51 | XMS_ITS | Encounter Summary ---
Author Organization [employer] Address [address] [place] [address] 7t [place] [address] Care Team Providers Care Stemmer Machine Name Role Phone Ernie Noriega MD Primary Care Provide r Reason for Visit * Reason Comments Med Refill Encounter Details Date Type Department Care Team ([facility] st Contact Info) Description 07/28/2024 Refill [facility] MEDICINE 230 [place], [place] [phone] Ernie Noriega MD [address] [place] [address] Primary osteoarthritis of knee, unspecified laterality Social [...] 01/12/2025 3:00 PM EDT Office Visit [facility] MEDICINE [address] [place] [address] Ernie Noriega MD [address] [place] [address] documented as of this encounter Visit Diagnoses Diagnosis Primary osteoarthritis of knee, unspecified laterality documented in this encounter Additional Health Concerns Assessment Noted Time PHQ-9 Depression Total Score: 2 01/21/20 24 1:25 PM EDT documented as of this encounter Care Teams Stemmer Machine Relationship Specialty Start Date End Date Ernie Noriega MD [address] [place] [address] PCP - General Internal Medicine 08/25/19 documented as of this encounter
--- OUTSIDE RECORDS SUMMARY | 2025-01-10 12:51 | XMS_ITS | Clinical Summary ---
Author Organization [facility] Address 175 [place] [address] Phone Care Team Providers Care Cake Wringer Name Role Phone Ernie Merritt MD Primary Care Provi bobo Allergies No known active allergies Medications fluticasone propion-salmete roL (ADVAIR DISKUS) 100-50 mcg/dose diskus inhaler Inhale 1 Puff into the lungs every 12 hours. Active gabapentin (NEURONTIN) 300 mg capsule Take 300 mg by mouth 2 times daily. Active hydroCHLOROthia zide 12.5 mg tablet Take 12.5 mg by mouth daily. Active montelukast (SINGULAIR) 10 mg tablet Take 10 mg by mouth at bedtime. Active zolpidem (AMBIEN) 10 mg tablet Take 10 mg by mouth at bedtime as needed. Active acetaminophen (TYLENOL) 500 mg tablet Take 2 tablets (1,000 mg total) by mouth every 8 (eight) hours if needed for mild pain. 30 tablet 12/07/2024 Active oxyCODONE (ROXICODONE) 5 mg immediate release tablet Take 1 tablet (5 mg total) by mouth every 4 (four) hours if needed for severe pain. Max Daily Amount: 30 mg 8 tablet 12/07/2024 Active ibuprofen (ADVIL,MOTRIN) 600 mg tablet Take 1 tablet (600 mg total) by mouth every 6 (six) hours if needed for mild pain. 30 each 12/07/2024 Active Active Problems Problem Noted Date Diagnosed Date Acquired trigger finger of left index finger De Quervain's tenosynovitis, left 09/01/2023 Trigger thumb of right hand 07/03/2021 Encounters Date Type Department Care Team Description 12/16/2024 11:00 AM EST Office Visit Orthopedic Surgery [facility] 175 [facility] [address] [place] [phone] Nicolasa Yu PA S/P trigger finger release (Primary Dx) 12/07/2024 1:30 PM EST - 12/07/2024 3:00 PM EST Surgery [facility] OR [address] [place] [phone] Trista David MD LEFT A1 JOAO/TRIGGER FINGER RELEASE INDEX FINGER [[id number] (CPT??)] 12/07/2024 12:30 PM EST Anesthesia Event [facility] OR [address] [place] [phone] Irvin Fields MD Decandio, Laura, CRNA 12/07/2024 11:51 AM EST - 12/07/2024 2:43 PM EST Hospital Encounter [facility] OR [address] [place] [phone] Trista David MD Discharge Disposition: Home or Self Care 11/23/2024 11:00 AM EST Office Visit Orthopedic [facility] 160 [address] [facility] 160 [place] [phone] Leroy Lees MD Rotator cuff arthropathy, left (Primary Dx) 11/22/2024 10:45 AM EST Consult Orthopedic Surgery [facility] 175 [facility] [address] [place] [phone] Trista David MD Acquired trigger finger of left index finger (Primary Dx) 11/04/2024 Telephone Orthopedic Surgery [facility] [address] [phone] Eulalia Velez from Last 3 Months Surgical [...] finger, unspecified finger Case Notes PA ASSIST NM ARTHROCENTESIS/ PIRATION/INJECTIO N MAJOR JOINT/BURSA W/O U/S GUIDANCE Routine 11/23/2024 11:00 AM EST Rotator cuff arthropathy, left from Last 3 Months Results * NM ARTHROCENTESIS/ASPIRATION/INJECTION MAJOR JOINT/BURSA W/O U/S GUIDANCE (11/23/2024 [...] currently active code status orders. Care Teams Cake Wringer Relationship Specialty Start Date End Date Ernie Merritt MD [address] [place] [phone] PCP - General Internal Medicine 05/20/21
--- OUTSIDE RECORDS SUMMARY | 2025-01-10 12:51 | XMS_ITS | Encounter Summary ---
Author Organization [employer] Address [address] [place] [address] 7t [place] [address] Care Team Providers Care Clinical Support Associate Name Role Phone Ernie Noriega MD Primary Care Provide r Reason for Visit * Reason Comments Med Refill Encounter Details Date Type Department Care Team ([facility] st Contact Info) Description 01/09/2025 Refill [facility] MEDICINE [address] [place] [address] Ofelia Melgar MD [address] [place] [address] Social History Tobacco Use Types Packs/Day Years [...] [facility] [address] [place] [address] Ernie Noriega MD [address] [place] [address] documented as of this encounter Visit Diagnoses Not on filedocumented in this encounter Additional Health Concerns Assessment Noted Time PHQ-9 Depression Total Score: 2 01/21/20 24 1:25 PM EDT documented as of this encounter Care Teams Clinical Support Associate Relationship Specialty Start Date End Date Ernie Noriega MD [address] [place] [phone] PCP - General Internal Medicine 08/25/19 documented as of this encounter
--- OUTSIDE RECORDS SUMMARY | 2025-01-10 12:51 | XMS_ITS | Encounter Summary ---
Author Organization [employer] Address [address] [place] [address] 7t [place] [address] Care Team Providers Care Combat Systems Engineer Name Role Phone Ernie Noriega MD Primary Care Provide r Reason for Visit * Reason Onset Date Comments Med Refill 10/25/2024 Encounter Details Date Type Department Care Team ([facility] st Contact Info) Description 10/25/[address] [facility] MEDICINE [address] [place] [address] Ernie Noriega MD [address] [place] [address] Chronic midline low back pain without sciatica [...] EDT Office Visit [facility] MEDICINE [address] [place] [address] Ernie Noriega MD [address] [place] [address] documented as of this encounter Visit Diagnoses Diagnosis Chronic midline low back pain without sciatica documented in this encounter Additional Health Concerns Assessment Noted Time PHQ-9 Depression Total Score: 2 01/21/20 24 1:25 PM EDT documented as of this encounter Care Teams Combat Systems Engineer Relationship Specialty Start Date End Date Ernie Noriega MD [address] [place] [address] PCP - General Internal Medicine 08/25/19 documented as of this encounter
--- OUTSIDE RECORDS SUMMARY | 2025-01-10 12:51 | XMS_ITS | Encounter Summary ---
Author Organization [employer] Address [address] [place] [address] 7t [place] [address] Care Team Providers Care Linux Vmware Administrator Name Role Phone Ernie Noirega MD Primary Care Provide r Reason for Visit * Reason Comments Med Refill Encounter Details Date Type Department Care Team ([facility] st Contact Info) Description 01/09/2025 Refill [facility] MEDICINE [address] [place] [address] Ernie Noriega MD [address] [place] [address] Ischial pain, right; Chronic midline low back pain without sciatica; Primary osteoarthritis of knee, unspecified laterality Social [...] Office Visit [facility] MEDICINE 230 [place] [address] Ernie Noriega MD [address] [place] [address] documented as of this encounter Visit Diagnoses Diagnosis Ischial pain, right Chronic midline low back pain without sciatica Primary osteoarthritis of knee, unspecified laterality documented in this encounter Additional Health Concerns Assessment Noted Time PHQ-9 Depression Total Score: 2 01/21/20 24 1:25 PM EDT documented as of this encounter Care Teams Linux Vmware Administrator Relationship Specialty Start Date End Date Ernie Noriega MD [address] [place] [address] PCP - General Internal Medicine 08/25/19 documented as of this encounter
--- OUTSIDE RECORDS SUMMARY | 2025-01-10 12:51 | XMS_ITS | Encounter Summary ---
Author Organization [employer] Address [address] [place] [address] 7t [place] [address] Care Team Providers Care Ammonia Distiller Name Role Phone Ernie Noriega MD Primary Care Provide r Reason for Visit * Reason Onset Date Comments Med Refill 08/12/2024 Encounter Details Date Type Department Care Team ([facility] st Contact Info) Description 08/12/2024 Refill [facility] MEDICINE 230 [place] [address] Ilsa Robison, ANP 230 [place] [address] Primary osteoarthritis of knee, unspecified laterality Social [...] 01/12/2025 3:00 PM EDT Office Visit [facility] MEDICINE [address] [place] [address] Ernie Noriega MD [address] [place] [address] documented as of this encounter Visit Diagnoses Diagnosis Primary osteoarthritis of knee, unspecified laterality documented in this encounter Additional Health Concerns Assessment Noted Time PHQ-9 Depression Total Score: 2 01/21/20 24 1:25 PM EDT documented as of this encounter Care Teams Ammonia Distiller Relationship Specialty Start Date End Date Ernie Noriega MD [address] [place] [phone] PCP - General Internal Medicine 08/25/19 documented as of this encounter
--- OUTSIDE RECORDS SUMMARY | 2025-01-10 12:51 | XMS_ITS | Encounter Summary ---
Author Organization [employer] Address [address] [place] [address] 7 [place] [address] Care Team Providers Care Dip Dyer Name Role Phone Ernie Noriega MD Primary Care Provide r Reason for Visit * Reason Onset Date Comments Med Refill 01/10/2025 Encounter Details Date Type Department Care Team ([facility] st Contact Info) Description 01/10/2025 Refill [facility] MEDICINE 230 [place] [address] Ernie Noriega MD [address] [place] [address] Primary osteoarthritis of knee, unspecified laterality Social [...] 01/12/2025 3:00 PM EDT Office Visit [facility] MEDICINE [address] [place] [address] Ernie Noriega MD [address] [place] [address] documented as of this encounter Visit Diagnoses Diagnosis Primary osteoarthritis of knee, unspecified laterality documented in this encounter Additional Health Concerns Assessment Noted Time PHQ-9 Depression Total Score: 2 01/21/20 24 1:25 PM EDT documented as of this encounter Care Teams Dip Dyer Relationship Specialty Start Date End Date Ernie Noriega MD [address] [place] [phone] PCP - General Internal Medicine 08/25/19 documented as of this encounter
--- OUTSIDE RECORDS SUMMARY | 2025-01-10 12:51 | XMS_ITS | Encounter Summary ---
Author Organization [employer] Address [address] [place] [address] 7t [place] [address] Care Team Providers Care Shipping And Receiving Assistant Name Role Phone Ernie Noriega MD Primary Care Provide r Reason for Visit * Reason Onset Date Comments Med Refill 10/17/2024 Encounter Details Date Type Department Care Team ([facility] st Contact Info) Description 10/17/2024 Refill [facility] MEDICINE [address] [place] [address] Ernie Noriega MD [address] [place] [address] Primary osteoarthritis of knee, unspecified laterality Social [...] Office Visit [facility] MEDICINE [address] [place] [address] Ernie Noriega MD [address] [place] [address] documented as of this encounter Visit Diagnoses Diagnosis Primary osteoarthritis of knee, unspecified laterality documented in this encounter Additional Health Concerns Assessment Noted Time PHQ-9 Depression Total Score: 2 01/21/20 24 1:25 PM EDT documented as of this encounter Care Teams Shipping And Receiving Assistant Relationship Specialty Start Date End Date Ernie Noriega MD [address] [place] [address] PCP - General Internal Medicine 08/25/19 documented as of this encounter
--- OUTSIDE RECORDS SUMMARY | 2025-01-10 12:51 | XMS_ITS | Encounter Summary ---
Author Organization [employer] Address [address] [place] [address] 7t [place] [address] Care Team Providers Care Director Of Strategic Initiatives Name Role Phone Ernie Noriega MD Primary Care Provide r Reason for Visit * Reason Onset Date Comments Med Refill 06/25/2024 Encounter Details Date Type Department Care Team ([facility] st Contact Info) Description 06/25/2024 Refill [facility] MEDICINE [address] [place] [address] Ernie Noriega MD [address] [place] [address] Chronic midline low back pain without sciatica; [...] PM EDT Office Visit [facility] MEDICINE [address] [place] [address] Ernie Noriega MD [address] [place] [address] documented as of this encounter Visit Diagnoses Diagnosis Chronic midline low back pain without sciatica Cervical radiculopathy Brachial neuritis or radiculitis nos documented in this encounter Additional Health Concerns Assessment Noted Time PHQ-9 Depression Total Score: 2 01/21/20 24 1:25 PM EDT documented as of this encounter Care Teams Director Of Strategic Initiatives Relationship Specialty Start Date End Date Ernie Noriega MD 230 [place] [address] PCP - General Internal Medicine 08/25/19 documented as of this encounter
--- OUTSIDE RECORDS SUMMARY | 2025-01-10 12:51 | XMS_ITS | Encounter Summary ---
Author Organization [employer] Address [address] [place] [address] 7t [place] [address] Care Team Providers Care Educational Institution President Name Role Phone Ernie Noriega MD Primary Care Provide r Reason for Visit * Reason Onset Date Comments Nurse Triage 12/22/2024 Encounter Details Date Type Department Care Team ([facility] st Contact Info) Description 12/22/2024 Telephone [facility] MEDICINE [address] [place] [address] Ernie Noriega MD [address] [place] [address] Nurse Triage Social History Tobacco Use Types [...] 12/22/2024 10:03 AM EDT 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 Pt. States that she went to [...] leg pain now Please contact pt at [phone]. 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) documented in this encounter Plan of Treatment Upcoming Encounters Date Type Department Care Team (Late st Contact Info) Description 01/12/2025 3:00 PM EDT Office Visit [facility] MEDICINE [address] [place] [address] Ernie Noriega MD [address] [place] [address] documented as of this encounter Visit Diagnoses Not on filedocumented in this encounter Additional Health Concerns Assessment Noted Time PHQ-9 Depression Total Score: 2 01/21/20 24 1:25 PM EDT documented as of this encounter Care Teams Educational Institution President Relationship Specialty Start Date End Date Ernie Noriega MD [address] [place] [address] PCP - General Internal Medicine 08/25/19 documented as of this encounter
--- OUTSIDE RECORDS SUMMARY | 2025-01-10 12:51 | XMS_ITS | Encounter Summary ---
Author Organization [facility] [facility] Address [address] [place] [address] 7 [place] [address] Care Team Providers Care Medical Director Name Role Phone Ernie Noriega MD Primary Care Provide r Encounter Details Date Type Department Care Team (Late st Contact Info) Description 02/18/2023 Abstract [facility] MEDICINE [address] [place] [address] [phone] Ernie Noriega MD [address] [place] [address] [phone] Social History Tobacco Use Types Packs/Day Years [...] EDT Office Visit [facility] MEDICINE [address] [place] [address] [phone] Ernie Noriega MD [address] [place] [address] [phone] documented as of this encounter Procedures Procedure [...] documented as of this encounter Care Teams Medical Director Relationship Specialty Start Date End Date Ernie Noriega MD [address] [place] [address] PCP - General Internal Medicine 08/25/19 documented as of this encounter
--- OUTSIDE RECORDS SUMMARY | 2025-01-10 12:51 | XMS_ITS | Encounter Summary ---
Author Organization [employer] Address [address] [place] [address] 7t [place] [address] Care Team Providers Care Enterprise Application Architect Name Role Phone Ernie Noriega MD Primary Care Provide r Reason for Visit * Reason Comments Med Refill Encounter Details Date Type Department Care Team ([facility] st Contact Info) Description 08/10/2023 Refill [facility] MEDICINE [address] [place] [address] Ernie Noriega MD [address] [place] [address] Primary osteoarthritis of knee, unspecified laterality; Chronic [...] Description 01/12/2025 3:00 PM EDT Office Visit [facility] MEDICINE [address] [place] [address] Ernie Noriega MD [address] [place] [address] documented as of this encounter Visit Diagnoses Diagnosis Primary osteoarthritis of knee, unspecified laterality Chronic midline low back pain without sciatica Cervical radiculopathy Brachial neuritis or radiculitis nos Pain Generalized pain documented in this encounter Additional Health Concerns Assessment Noted Time PHQ-9 Depression Total Score: 0 12/02/19 23 2:38 PM EST documented as of this encounter Care Teams Enterprise Application Architect Relationship Specialty Start Date End Date Ernie Noriega MD [address] [place] [address] PCP - General Internal Medicine 08/25/19 documented as of this encounter
--- OUTSIDE RECORDS SUMMARY | 2025-01-10 12:51 | XMS_ITS | Encounter Summary ---
Author Organization [employer] Address [address] [place] [address] 7t [place] [address] Care Team Providers Care Tunnel Heading Supervisor Name Role Phone Ernie Noriega MD Primary Care Provide r Reason for Visit * Reason Onset Date Comments Med Refill 11/01/2024 Encounter Details Date Type Department Care Team ([facility] st Contact Info) Description 11/01/2024 Refill [facility] MEDICINE 230 [place] [address] Sugar Mitchell MD [address] [place] [address] Seasonal allergies Social History Tobacco Use Types [...] 3:00 PM EDT Office Visit [facility] MEDICINE [address] [place] [address] Ernie Noriega MD [address] [place] [address] documented as of this encounter Visit Diagnoses Diagnosis Seasonal allergies Allergic rhinitis, cause unspecified documented in this encounter Additional Health Concerns Assessment Noted Time PHQ-9 Depression Total Score: 2 01/21/20 24 1:25 PM EDT documented as of this encounter Care Teams Tunnel Heading Supervisor Relationship Specialty Start Date End Date Ernie Noriega MD [address] [place] [address] PCP - General Internal Medicine 08/25/19 documented as of this encounter
--- OUTSIDE RECORDS SUMMARY | 2025-01-10 12:51 | XMS_ITS | Encounter Summary ---
Author Organization [employer] Address [address] [place] [address] 7t [place] [address] Care Team Providers Care Jewelry Sorter Name Role Phone Ernie Noriega MD Primary Care Provide r Reason for Visit * Reason Onset Date Comments Med Refill 03/15/2024 Encounter Details Date Type Department Care Team ([facility] st Contact Info) Description 03/15/2024 Refill [facility] MEDICINE [address] [place] [address] Ofelia Melgar MD [address] [place] [address] Chronic midline low back pain without sciatica; [...] EDT Office Visit [facility] MEDICINE 230 [place] [address] Ernie Noriega MD [address] [place] [address] documented as of this encounter Visit Diagnoses Diagnosis Chronic midline low back pain without sciatica Cervical radiculopathy Brachial neuritis or radiculitis nos documented in this encounter Additional Health Concerns Assessment Noted Time PHQ-9 Depression Total Score: 2 01/21/20 24 1:25 PM EDT documented as of this encounter Care Teams Jewelry Sorter Relationship Specialty Start Date End Date Ernie Noriega MD [address] [place] [address] PCP - General Internal Medicine 08/25/19 documented as of this encounter
--- OUTSIDE RECORDS SUMMARY | 2025-01-10 12:51 | XMS_ITS | Encounter Summary ---
Author Organization [employer] Address [address] [facility] 7t [place] [address] Care Team Providers Care Javascript Ui Developer Name Role Phone Ernie Noriega MD Primary Care Provide r Encounter Details Date Type Department Care Team (Latest Contact Info) Description 01/05/2025 Travel Social History Tobacco Use Types Packs/Day [...] EDT Office Visit [facility] MEDICINE 230 [place] [address] Ernie Noriega MD 230 [place] [address] documented as of this encounter Visit Diagnoses Not on filedocumented in this encounter Additional Health Concerns Assessment Noted Time PHQ-9 Depression Total Score: 2 01/21/20 24 1:25 PM EDT documented as of this encounter Care Teams Javascript Ui Developer Relationship Specialty Start Date End Date Ernie Noriega MD [address] [place] [address] PCP - General Internal Medicine 08/25/19 documented as of this encounter
--- OUTSIDE RECORDS SUMMARY | 2025-01-10 12:51 | XMS_ITS | Encounter Summary ---
Author Organization [employer] [facility] Address [address] [place] [address] 7 [place] [address] Care Team Providers Care Edge Inker Name Role Phone Ernie Noriega MD Primary Care Provide r Reason for Visit * Reason Onset Date Comments Appointment Request 02/17/2023 Encounter Details Date Type Department Care Team ([facility] st Contact Info) Description 02/17/2023 Telephone [facility] MEDICINE 230 [place] [address] Ernie Noriega MD [address] [place] [address] Appointment Request Social History Tobacco Use Types [...] a colonoscopy due to advise by her microfiche camera operator in [facility] hospital Please contact pt AT [phone] 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 documented in this encounter Plan of Treatment Upcoming Encounters Date Type Department Care Team (Late st Contact Info) Description 01/12/2025 3:00 PM EDT Office Visit [facility] MEDICINE [address] [place] [address] Ernie Noriega MD [address] [place] [address] documented as of this encounter Visit Diagnoses Not on filedocumented in this encounter Additional Health Concerns Assessment Noted Time PHQ-9 Depression Total Score: 0 12/02/19 23 2:38 PM EST documented as of this encounter Care Teams Edge Inker Relationship Specialty Start Date End Date Ernie Noriega MD [address] [place], [place] [phone] PCP - General Internal Medicine 08/25/19 documented as of this encounter
--- OUTSIDE RECORDS SUMMARY | 2025-01-10 12:51 | XMS_ITS | Encounter Summary ---
Author Organization [employer] Address [address] [place] [address] 7t [place] [address] Care Team Providers Care Dice Person Name Role Phone Ernie Noriega MD Primary Care Provide r Reason for Visit * Reason Onset Date Comments Med Refill 04/16/2024 Encounter Details Date Type Department Care Team ([facility] st Contact Info) Description 04/16/2024 Refill [facility] MEDICINE 230 [place] [address] Ernie Noriega MD [address] [place] [address] Essential hypertension Social History Tobacco Use Types [...] Description 01/12/2025 3:00 PM EDT Office Visit [facility] MEDICINE [address] [place] [address] Ernie Noriega MD [address] [place] [address] documented as of this encounter Visit Diagnoses Diagnosis Essential hypertension Unspecified essential hypertension documented in this encounter Additional Health Concerns Assessment Noted Time PHQ-9 Depression Total Score: 2 01/21/20 24 1:25 PM EDT documented as of this encounter Care Teams Dice Person Relationship Specialty Start Date End Date Ernie Noriega MD 230 [place] [address] PCP - General Internal Medicine 08/25/19 documented as of this encounter
--- OUTSIDE RECORDS SUMMARY | 2025-01-10 12:51 | XMS_ITS | Encounter Summary ---
Author Organization [employer] Address [address] [place] [address] 7t [place] [address] Care Team Providers Care Supervisor International Reservations Name Role Phone Ernie Noriega MD Primary Care Provide r Reason for Visit * Reason Onset Date Comments Med Refill 11/07/2024 Encounter Details Date Type Department Care Team ([facility] st Contact Info) Description 11/07/2024 Refill [facility] MEDICINE [address] [place] [address] Ernie Noriega MD [address] [place] [address] Chronic midline low back pain without sciatica [...] [facility] MED[facility] [address] [place] [address] Ernie Noriega MD [address] [place] [address] documented as of this encounter Visit Diagnoses Diagnosis Chronic midline low back pain without sciatica documented in this encounter Additional Health Concerns Assessment Noted Time PHQ-9 Depression Total Score: 2 01/21/20 24 1:25 PM EDT documented as of this encounter Care Teams Supervisor International Reservations Relationship Specialty Start Date End Date Ernie Noriega MD [address] [place] [address] PCP - General Internal Medicine 08/25/19 documented as of this encounter
--- OUTSIDE RECORDS SUMMARY | 2025-01-10 12:52 | XMS_ITS | Encounter Summary ---
Author Organization [employer] Address [address] [place] [address] 7t [place] [address] Care Team Providers Care Home Restoration Service Cleaner Name Role Phone Ernie Noriega MD Primary Care Provide r Reason for Visit * Reason Onset Date Comments Med Refill 10/27/2023 Encounter Details Date Type Department Care Team ([facility] st Contact Info) Description 10/27/2023 Refill [facility] [address] [place] [address] Perlita Woody MD [address] [place] [address] Primary hypertension Social History Tobacco Use Types [...] 01/12/2025 3:00 PM EDT Office Visit [facility] MEDICINE [address] [place] [address] Ernie Noriega MD [address] [place] [address] documented as of this encounter Visit Diagnoses Diagnosis Primary hypertension Unspecified essential hypertension documented in this encounter Additional Health Concerns Assessment Noted Time PHQ-9 Depression Total Score: 0 12/02/19 23 2:38 PM EST documented as of this encounter Care Teams Home Restoration Service Cleaner Relationship Specialty Start Date End Date Ernie Noriega MD [address] [place] [address] PCP - General Internal Medicine 08/25/19 documented as of this encounter
--- OUTSIDE RECORDS SUMMARY | 2025-01-10 12:52 | XMS_ITS | Encounter Summary ---
Author Organization [facility] Address [address] [place] [address] 7t [place] [address] Care Team Providers Care Safety Physician Name Role Phone Ernie Noriega MD Primary Care Provide r Encounter Details Date Type Department Care Team ([facility] Contact Info) Description 12/09/2022 Orders Only [facility] [address] [place] [address] Suha Alexander, RN Social History Tobacco [...] Upcoming Encounters Date Type Department Care Team ([facility] Contact Info) Description 01/12/2025 3:00 PM EDT Office Visit [facility] MEDICINE 230 [place], [place] [phone] Ernie Noriega MD 230 [place] [address] documented as of this encounter Procedures Procedure Name Priority Date/Time Associated Diagnosis Comments BI MAMMOGRAM SCREENING TOMOSYNTHESIS BILATERAL Routine 12/23/2022 11:35 AM EDT documented in this encounter Results * BI Mammogram Screening Tomosynthesis Bilateral (12/23/2022 11:35 AM EDT) Anatomical Region Laterality Modality Breast Bilateral Mammography 12/23/2022 11:3 5 AM EDT Narrative 12/24/2022 5:15 PM EDT ? [facility] ? [address] ?[place] [address] ? Mammography Report ? Signed ? Patient: Miguelina Watson ?MR#: ?? [id number] ? : 1965 ?Acct:[id number] ? Age/Sex: 57 / F ?ADM Date: 12/23/22 ? Loc: HO.MAMMO ? Attending Dr: Ernie Merritt MD ? Ordering Physician: Ernie Merritt MD ?Resu ?? lts: 1Negative ? Date of Service: 12/23/22 ?Follow Up: 1 Year From Orig ?? inal Mammogram ? Procedure(s): MM tomosynthesis screening BI ?? Accession Number(s): [id number] ? cc: Ernie Merritt MD ? EXAMINATION: [...] 1712 ? DD/ 1135 ? TD/TT: ? Client Leader: SK ? Procedure Note Tiesha, Rene - 12/24/2022 [facility] [address] [place] [address] Dr. [place], [place] T [address] Mammography Report Signed [id number] : 1965Acct:[id number] Age/Sex: 57 / FADM Date: 12/23/22 Loc: [facility]AN[facility] Attending Dr: Ernie Merritt MD Ordering Physician: Ernie Merritt MDResu lts: 1Negative Date of Service: 12/23/22Follow Up: 1 Year From Orig inal Mammogram Procedure(s): MM tomosynthesis screening BI Accession Number(s): [id number] cc: Ernie Merritt MD EXAMINATION: MM SCREENING [...] in OV> 12/24/22 1712 DD/ 1135 TD/TT: Client Leader: [facility] External Provider IMG BI PROCEDURES Edited Result - Final documented in this encounter Visit Diagnoses Not on filedocumented in this encounter Additional Health Concerns Assessment Noted Time PHQ-9 Depression Total Score: 0 12/02/19 23 2:38 PM EST documented as of this encounter Care Teams Safety Physician Relationship Specialty Start Date End Date Ernie Noriega MD [address] [place] [address] PCP - General Internal Medicine 08/25/19 documented as of this encounter
--- OUTSIDE RECORDS SUMMARY | 2025-01-10 12:52 | XMS_ITS | Encounter Summary ---
Author Organization [employer] Address [address] [place] [address] 7t [place] [address] Care Team Providers Care Metal Mockup Maker Name Role Phone Ernie Noriega MD Primary Care Provide r Reason for Visit * Reason Onset Date Comments Med Refill 08/17/2023 Encounter Details Date Type Department Care Team ([facility] st Contact Info) Description 08/17/2023 Telephone [facility] MEDICINE 230 [place], [place] [phone] Ernie Noriega MD [address] [place], [place] [phone] Med Refill Social History Tobacco Use Types [...] (Ultram) 50 MG tablet Please sent to [facility]/pharmacy #[id number] [place], [place] - [address] [place] [address] documented in this encounter Plan of Treatment Upcoming Encounters Date Type Department Care Team (Late st Contact Info) Description 01/12/2025 3:00 PM EDT Office Visit [facility] MEDICINE [address] [place] [address] Ernie Noriega MD [address] [place] [address] documented as of this encounter Visit Diagnoses Not on filedocumented in this encounter Additional Health Concerns Assessment Noted Time PHQ-9 Depression Total Score: 0 12/02/19 23 2:38 PM EST documented as of this encounter Care Teams Metal Mockup Maker Relationship Specialty Start Date End Date Ernie Noriega MD [address] [place] [address] PCP - General Internal Medicine 08/25/19 documented as of this encounter
--- OUTSIDE RECORDS SUMMARY | 2025-01-10 12:52 | XMS_ITS | Encounter Summary ---
Author Organization [employer] Address [address] [place] [address] 7t [place] [address] Care Team Providers Care Schedule Planning Manager Name Role Phone Ernie Noriega MD Primary Care Provide r Reason for Visit * Reason Onset Date Comments Med Refill 11/04/2023 Encounter Details Date Type Department Care Team ([facility] st Contact Info) Description 11/04/2023 Refill [facility] [address] [place] [address] Ernie Noriega MD [address] [place] [address] Pain Social History Tobacco Use Types Packs/Day [...] 3:00 PM EDT Office Visit [facility] MEDICINE [address] [place] [address] Ernie Noriega MD [address] [place] [address] documented as of this encounter Visit Diagnoses Diagnosis Pain Generalized pain documented in this encounter Additional Health Concerns Assessment Noted Time PHQ-9 Depression Total Score: 0 12/02/19 23 2:38 PM EST documented as of this encounter Care Teams Schedule Planning Manager Relationship Specialty Start Date End Date Ernie Noriega MD [address] [place] [address] PCP - General Internal Medicine 08/25/19 documented as of this encounter
--- OUTSIDE RECORDS SUMMARY | 2025-01-10 12:52 | XMS_ITS | Encounter Summary ---
Author Organization [employer] Address [address] [place] [address] 7t [place] [address] Care Team Providers Care Finance Accounting Internship Name Role Phone Ernie Noriega MD Primary Care Provide r Reason for Visit * Reason Comments Med Refill Encounter Details Date Type Department Care Team ([facility] st Contact Info) Description 10/11/2023 Refill [facility] MEDICINE [address] [place] [address] Ernie Noriega MD [address] [place] [address] Social History Tobacco Use Types Packs/Day Years [...] 01/12/2025 3:00 PM EDT Office Visit [facility] MEDICINE [address] [place] [address] Ernie Noriega MD [address] [place] [address] documented as of this encounter Visit Diagnoses Not on filedocumented in this encounter Additional Health Concerns Assessment Noted Time PHQ-9 Depression Total Score: 0 12/02/19 23 2:38 PM EST documented as of this encounter Care Teams Finance Accounting Internship Relationship Specialty Start Date End Date Ernie Noriega MD [address] [place] [address] PCP - General Internal Medicine 08/25/19 documented as of this encounter
--- OUTSIDE RECORDS SUMMARY | 2025-01-10 12:52 | XMS_ITS | Encounter Summary ---
Author Organization [employer] Address [address] [place] [address] 7t [place] [address] Care Team Providers Care Shower Enclosure Installer Name Role Phone Ernie Noriega MD Primary Care Provide r Reason for Visit * Reason Onset Date Comments Med Refill 04/24/2024 Encounter Details Date Type Department Care Team ([facility] st Contact Info) Description 04/24/2024 Refill [facility] MEDICINE [address] [place] [address] Ernie Noriega MD [address] [place] [address] Essential hypertension Social History Tobacco Use Types [...] 3:00 PM EDT Office Visit [facility] MEDICINE [address] [place] [address] Ernie Noriega MD [address] [place] [address] documented as of this encounter Visit Diagnoses Diagnosis Essential hypertension Unspecified essential hypertension documented in this encounter Additional Health Concerns Assessment Noted Time PHQ-9 Depression Total Score: 2 01/21/20 24 1:25 PM EDT documented as of this encounter Care Teams Shower Enclosure Installer Relationship Specialty Start Date End Date Ernie Noriega MD [address] [place] [address] PCP - General Internal Medicine 08/25/19 documented as of this encounter
--- OUTSIDE RECORDS SUMMARY | 2025-01-10 12:52 | XMS_ITS | Encounter Summary ---
Author Organization [employer] Address [address] [place] [address] 7t [place] [address] Care Team Providers Care Speeder Frame Tender Name Role Phone Ernie Noriega MD Primary Care Provide r Reason for Visit * Reason Onset Date Comments Med Refill 11/03/2023 Encounter Details Date Type Department Care Team ([facility] st Contact Info) Description 11/03/2023 Refill [facility] [address] [place] [address] Ernie Noriega MD [address] [place] [address] Seasonal allergies Social History Tobacco Use Types [...] Visit [facility] MEDICINE [address] [place] [address] Ernie Noriega MD [address] [place] [address] documented as of this encounter Visit Diagnoses Diagnosis Seasonal allergies Allergic rhinitis, cause unspecified documented in this encounter Additional Health Concerns Assessment Noted Time PHQ-9 Depression Total Score: 0 12/02/19 23 2:38 PM EST documented as of this encounter Care Teams Speeder Frame Tender Relationship Specialty Start Date End Date Ernie Noriega MD [address] [place] [address] PCP - General Internal Medicine 08/25/19 documented as of this encounter
--- OUTSIDE RECORDS SUMMARY | 2025-01-10 12:52 | XMS_ITS | Encounter Summary ---
Author Organization [facility] Address [address] [place] [address] 7t [place] [address] Care Team Providers Care Grave Digger Name Role Phone Ernie Noriega MD Primary Care Provide r Encounter Details Date Type Department Care Team (Latest Contact Info) Description 06/19/2022 Abstract [facility] CONVERSIONS Dental, Provider, DDS Social [...] Visit [facility] MEDICINE [address] [place] [address] Ernie Noriega MD [address] [place] [address] documented as of this encounter Visit Diagnoses Not on filedocumented in this encounter Care Teams Grave Digger Relationship Specialty Start Date End Date Ernie Noriega MD [address] [place] [address] PCP - General Internal Medicine 08/25/19 documented as of this encounter
--- OUTSIDE RECORDS SUMMARY | 2025-01-10 12:52 | XMS_ITS | Encounter Summary ---
Author Organization [employer] Address [address] [place] [address] 7t [place] [address] Care Team Providers Care Sap Basis Consultant Name Role Phone Ernie Noriega MD Primary Care Provide r Reason for Visit * Reason Onset Date Comments Med Refill 11/17/2024 Encounter Details Date Type Department Care Team ([facility] st Contact Info) Description 11/17/2024 Refill [facility] MEDICINE [address] [place] [address] Ernie Noriega MD [address] [place] [address] Seasonal allergies Social History Tobacco Use Types [...] [facility] [address] [place] [address] Ernie Noriega MD [address] [place] [address] documented as of this encounter Visit Diagnoses Diagnosis Seasonal allergies Allergic rhinitis, cause unspecified documented in this encounter Additional Health Concerns Assessment Noted Time PHQ-9 Depression Total Score: 2 01/21/20 24 1:25 PM EDT documented as of this encounter Care Teams Sap Basis Consultant Relationship Specialty Start Date End Date Ernie Noriega MD [address] [place] [address] PCP - General Internal Medicine 08/25/19 documented as of this encounter
--- OUTSIDE RECORDS SUMMARY | 2025-01-10 12:52 | XMS_ITS | Encounter Summary ---
Author Organization [facility] Address [address] [place] [address] 7t [place] [address] Care Team Providers Care Horse Groomer Name Role Phone Ernie Noriega MD Primary Care Provide r Encounter Details Date Type Department Care Team (Latest Contact Info) Description 03/07/2021 Abstract [facility] CONVERSIONS Dental, Provider, DDS Social [...] Visit [facility] MEDICINE [address] [place] [address] Ernie Noriega MD [address] [place] [address] documented as of this encounter Visit Diagnoses Not on filedocumented in this encounter Care Teams Horse Groomer Relationship Specialty Start Date End Date Ernie Noriega MD [address] [place] [address] PCP - General Internal Medicine 08/25/19 documented as of this encounter
--- OUTSIDE RECORDS SUMMARY | 2025-01-10 12:52 | XMS_ITS | Referral Summary ---
Author Organization [facility] Address [address] [place] [address] Care Team Providers Care Hedge Fund Principal Name Role Phone Ernie Merritt Primary Care Provider + Encounters Date Type Department Care Team Description 12/14/2024 9:00 AM EST Office Visit [facility] [address] [place] [address] Christopher Peres MD Chronic bilateral low back pain with bilateral sciatica (Primary Dx); H/O cervical spine surgery 12/13/2024 Telephone [facility] [address] [place] [address] Christopher Peres MD 12/08/2024 Telephone [facility] [address] [place] [address] Christopher Peres MD 11/01/2024 Orders Only [facility] - External Imaging [address] [place] [address] Radiology, External from Last 3 Months Allergies [...] propionate (FLONASE) 50 mcg/actuation nasal spray [employer] [place](s) Both Nares Twice Daily 3 Active tamsulosin [...] Follow-Up [facility] [address] [place] [address] Christopher Peres MD [address] [place], [place] [phone] Procedures * Due to [place] [employer] law, this organization might not be sharing [...] Last 3 Months Results * Due to [place] [employer] law, this organization might not be sharing negative HIV tests. * MRI Cervical Spine WO Contrast (12/21/2024 7:55 AM EDT) Anatomical Region Laterality Modality Spine, C-spine Magnetic Resonan ce 12/21/2024 7:30 AM EDT Narrative 12/22/2024 2:31 PM EDT [facility] Accession Number: [id number] Patient Name: Miguelina Julien Date of : 1965 Date of Exam: 12-21-2024 Referring Physician: Christopher Peres ?[facility] ?[address] [place] [address] ?[place], [place] [address] Exam: MR Cervical Spine (C-) CPT 12058 Room Description: [facility] 1.5 MR Cervical Spine (C-) CPT 39187 INDICATION: previous C spine surgery, appears tight on MRI T spine cytogenetics laboratory manager ?? TECHNIQUE: Multiplanar, multisequence MRI of the [...] MD Procedure Note Provider, Porsche - 12/22/2024 [facility] Accession Number: [id number] Patient Name: Miguelina Julien Date of : 1965 Date of Exam: 12-21-2024 Referring Physician: Christopher Peres [place] [address] Exam: MR Cervical Spine (C-) CPT 42900 Room Description: [facility] Espr 1.5 MR Cervical Spine (C-) CPT 60938 INDICATION: previous C spine surgery, appears tight on MRI T spine cytogenetics laboratory manager TECHNIQUE: Multiplanar, multisequence MRI of the cervical [...] By: Priti Mendez MD Christopher Peres MD [facility] [place] PROCEDURES Final Re sult * MRI [...] obtain the completed interpretation. ? Workstation ID: [id number] Narrative 12/14/2024 5:30 PM EST COMPARISON: There are no prior studies available for comparison at this time. Resulting Agency Comment [id number] Procedure Note Stone Reid MD - 12/14/2024 [...] possible to obtain thecompleted interpretation. Workstation ID: [id number] us Christopher Peres MD IMG XR PROCEDURES [...] obtain the completed interpretation. ? Workstation ID: [id number] Narrative 12/14/2024 5:30 PM EST COMPARISON: There are no prior studies available for comparison at this time. Resulting Agency Comment [id number] Procedure Note Stone Reid MD - 12/14/2024 [...] possible to obtain thecompleted interpretation. Workstation ID: [id number] us Christopher Peres MD IMG XR PROCEDURES Final Res ult * MRI Thoracic and Lumbar Spine, Outside Result (11/01/2024) Anatomical Region Laterality Modality Other 11/01/2024 us Onbase Scan Carol AMB EXTERNAL RESULT PROCEDURE S Final Result from Last 3 Mon[place] [id number] Care Teams Hedge Fund Principal Relationship Specialty Start Date End Date Ernie Merritt [address] [place] [address] PCP - General Internal Medicine 11/29/24
--- OUTSIDE RECORDS SUMMARY | 2025-01-10 12:52 | XMS_ITS | Encounter Summary ---
Author Organization [employer] Address [address] [place] [address] 7t [place] [address] Care Team Providers Care Golf Shoe Spike Assembler Name Role Phone Ernie Noriega MD Primary Care Provide r Reason for Visit * Reason Comments Med Refill Encounter Details Date Type Department Care Team ([facility] st Contact Info) Description 08/26/2023 Refill [facility] [address] [place] [address] Perlita Woody MD [address] [place] [address] Seasonal allergies Social History Tobacco Use Types [...] 3:00 PM EDT Office Visit [facility] MEDICINE [address] [place] [address] Ernie Noriega MD [address] [place] [address] documented as of this encounter Visit Diagnoses Diagnosis Seasonal allergies Allergic rhinitis, cause unspecified documented in this encounter Additional Health Concerns Assessment Noted Time PHQ-9 Depression Total Score: 0 12/02/19 23 2:38 PM EST documented as of this encounter Care Teams Golf Shoe Spike Assembler Relationship Specialty Start Date End Date Ernie Noriega MD [address] [place] [address] PCP - General Internal Medicine 08/25/19 documented as of this encounter
--- OUTSIDE RECORDS SUMMARY | 2025-01-10 12:52 | XMS_ITS ---
Author Organization [facility] Address [address] [place] [address] Care Team Providers Care Program Specialist Name Role Phone Milton Ro MD, Ernie Primary Care Provide r Rodrick Juarez [phone] REASON FOR VISIT screening Encounters Encounter Location Date Provider Diagnosis [facility] Outpatient [address] [place], [place] [id number] 02/03/2024 Rodrick Millan Plan Of Treatment No Information Progress Notes * ISHMAEL HINOJOSADOB: 3 (59 yo F)Acc No.[id number]:02/03/2024 COLON WITH MAC Patient:?ISHMAEL HINOJOSA Provider:?Rodrick Millan MD :1965???Age:58 Y???Sex:Female D ate:02/03/2024 Address:[address] [place], [place] [address]PEPE NEIL Megan [facility] Pcp:Ernie bonilla MD Subjective: * Chief Complaints: [...] MD Date:? 024 Generated for Printi ng/Faanjelg/eTransmitting on:?01/10/2025 12:52 PM EDT
--- OUTSIDE RECORDS SUMMARY | 2025-01-10 12:52 | XMS_ITS | Clinical Summary ---
Author Organization [facility] Address [address] [place] [address] Care Team Providers Care Water Resources Program Director Name Role Phone Ernie Merritt Primary [...] propionate (FLONASE) 50 mcg/actuation nasal spray [employer] [place](s) Both Nares Twice Daily 3 Active tamsulosin [...] Description 12/14/2024 9:00 AM EST Office Visit [facility] [address] [place] [address] Christopher Peres MD Chronic bilateral low back pain with bilateral sciatica (Primary Dx); H/O cervical spine surgery 12/13/2024 Telephone [facility] [address] [place] [address] Christopher Peres MD 12/08/2024 Telephone [facility] [address] [place] [address] Christopher Peres MD 11/01/2024 Orders Only [facility] - External Imaging [address] [place] [address] Radiology, External from Last 3 Months Social [...] Info) Description 03/14/2025 3:00 PM EDT Follow-Up [facility] [address] [place] [address] Christopher Peres MD [address] [place], [place] [phone] Health Maintenance Due Date Last Done Comments [...] complete this topic Procedures * Due to [place] [employer] [place] law, this organization might not be sharing [...] Last 3 Months Results * Due to [place] [employer] [place] law, this organization might not be sharing negative HIV tests. * MRI Cervical Spine WO Contrast (12/21/2024 7:55 AM EDT) Anatomical Region Laterality Modality Spine, C-spine Magnetic Resonan ce 12/21/2024 7:30 AM EDT Narrative 12/22/2024 2:31 PM EDT [facility] Accession Number: [id number] Patient Name: Miguelina Julien Date of : 1965 Date of Exam: 12-21-2024 Referring Physician: Christopher Peres ?[facility] ?[address] [place] [address] ?[place] [address] Exam: MR Cervical Spine (C-) CPT 90205 Room Description: [facility] 1.5 MR Cervical Spine (C-) CPT 93733 INDICATION: previous C spine surgery, appears tight on MRI T spine office administration ?? TECHNIQUE: Multiplanar, multisequence MRI of the [...] MD Procedure Note Provider, Porsche - 12/22/2024 [facility] Accession Number: [id number] Patient Name: Miguelina Julien Date of : 1965 Date of Exam: 12-21-2024 Referring Physician: Christopher Peres [place] [address] Exam: MR Cervical Spine (C-) CPT 51276 Room Description: [facility] Espr 1.5 MR Cervical Spine (C-) CPT 59667 INDICATION: previous C spine surgery, appears tight on MRI T spine office administration TECHNIQUE: Multiplanar, multisequence MRI of the cervical [...] obtain the completed interpretation. ? Workstation ID: [id number] Narrative 12/14/2024 5:30 PM EST COMPARISON: There are no prior studies available for comparison at this time. Resulting Agency Comment [id number] Procedure Note Stone Reid MD - 12/14/2024 [...] possible to obtain thecompleted interpretation. Workstation ID: [id number] us Christopher Peres MD IMG XR PROCEDURES [...] obtain the completed interpretation. ? Workstation ID: [id number] Narrative 12/14/2024 5:30 PM EST COMPARISON: There are no prior studies available for comparison at this time. Resulting Agency Comment [id number] Procedure Note Stone Reid MD - 12/14/2024 [...] possible to obtain thecompleted interpretation. Workstation ID: [id number] us Christopher Peres MD IMG XR PROCEDURES Final Res ult * MRI Thoracic and Lumbar Spine, Outside Result (11/01/2024) Anatomical Region Laterality Modality Other 11/01/2024 us Onbase Scan Carol AMB EXTERNAL RESULT PROCEDURE S Final Result from Last [address] [place], [place] [address] [id number] [place] Care Teams Water Resources Program Director Relationship Specialty Start Date End Date Ernie Merritt [address] [place] [address] PCP - General Internal Medicine 11/29/24
--- OUTSIDE RECORDS SUMMARY | 2025-01-10 12:52 | XMS_ITS | Encounter Summary ---
Author Organization [employer] Address [address] [facility] 7t [place] [address] Care Team Providers Care Lead Miner Blasting Name Role Phone Ernie Noriega MD Primary Care Provide r Reason for Visit * Reason Onset Date Comments Med Refill 09/18/2023 Encounter Details Date Type Department Care Team ([facility] st Contact Info) Description 09/18/2023 Refill [facility] MED & PEDS [address] [place] [address] Ernie Noriega MD [address] [facility] [place] [address] Chronic midline low back pain without sciatica; [...] [facility] MED[facility] [address] [place] [address] Ernie Noriega MD 230 [place] [address] documented as of this encounter Visit Diagnoses Diagnosis Chronic midline low back pain without sciatica Cervical radiculopathy Brachial neuritis or radiculitis nos documented in this encounter Additional Health Concerns Assessment Noted Time PHQ-9 Depression Total Score: 0 12/02/19 23 2:38 PM EST documented as of this encounter Care Teams Lead Miner Blasting Relationship Specialty Start Date End Date Ernie Noriega MD [address] [place] [address] PCP - General Internal Medicine 08/25/19 documented as of this encounter
--- OUTSIDE RECORDS SUMMARY | 2025-01-10 12:52 | XMS_ITS | Encounter Summary ---
Author Organization [employer] Address [address] [place] [address] 7t [place] [address] Care Team Providers Care Research Leader Name Role Phone Ernie Noriega MD Primary Care Provide r Reason for Visit * Reason Comments Med Refill Encounter Details Date Type Department Care Team ([facility] st Contact Info) Description 10/16/[address] [facility] [address] [place], [place] [phone] Ernie Noriega MD [address] [place] [address] Pain Social History Tobacco Use Types Packs/Day [...] Office Visit [facility] MEDICINE [address] [place] [address] Ernie Noriega MD [address] [place] [address] documented as of this encounter Visit Diagnoses Diagnosis Pain Generalized pain documented in this encounter Additional Health Concerns Assessment Noted Time PHQ-9 Depression Total Score: 0 12/02/19 23 2:38 PM EST documented as of this encounter Care Teams Research Leader Relationship Specialty Start Date End Date Ernie Noriega MD [address] [place] [address] PCP - General Internal Medicine 08/25/19 documented as of this encounter
--- OUTSIDE RECORDS SUMMARY | 2025-01-10 12:52 | XMS_ITS | Encounter Summary ---
Author Organization [employer] Address [address] [place] [address] 7t [place] [address] Care Team Providers Care Track Template Maker Name Role Phone Ernie Noriega MD Primary Care Provide r Reason for Visit * Reason Onset Date Comments Med Refill 11/04/2023 Encounter Details Date Type Department Care Team ([facility] st Contact Info) Description 11/04/2023 Refill [facility] MEDICINE [address] [place] [address] Ernie Noriega MD [address] [place] [address] Chronic midline low back pain without sciatica; [...] Description 01/12/2025 3:00 PM EDT Office Visit [facility] MEDICINE [address] [place] [address] Ernie Noriega MD [address] [place] [address] documented as of this encounter Visit Diagnoses Diagnosis Chronic midline low back pain without sciatica Cervical radiculopathy Brachial neuritis or radiculitis nos Seasonal allergies Allergic rhinitis, cause unspecified documented in this encounter Additional Health Concerns Assessment Noted Time PHQ-9 Depression Total Score: 0 12/02/19 23 2:38 PM EST documented as of this encounter Care Teams Track Template Maker Relationship Specialty Start Date End Date Ernie Noriega MD [address] [place] [address] PCP - General Internal Medicine 08/25/19 documented as of this encounter
--- OUTSIDE RECORDS SUMMARY | 2025-01-10 12:52 | XMS_ITS | Encounter Summary ---
Author Organization [employer] Address [address] [place] [address] 7t [place] [address] Care Team Providers Care Machine Adjuster Leader Case Trim Name Role Phone Ernie Noriega MD Primary Care Provide r Reason for Visit * Reason Onset Date Comments Med Refill 09/18/2023 Encounter Details Date Type Department Care Team ([facility] st Contact Info) Description 09/18/2023 Telephone [facility] MEDICINE [address] [place] [address] Ernie Noriega MD [address] [place], [place] [phone] Med Refill Social History Tobacco Use Types [...] MG tablet Please sent to [facility]/pharmacy #[id number] [place], [place] - [address] [place] [address] documented in this encounter Plan of Treatment Upcoming Encounters Date Type Department Care Team (Late st Contact Info) Description 01/12/2025 3:00 PM EDT Office Visit [facility] MEDICINE [address] [place], [place] [phone] Ernie Noriega MD [address] [place] [address] documented as of this encounter Visit Diagnoses Not on filedocumented in this encounter Additional Health Concerns Assessment Noted Time PHQ-9 Depression Total Score: 0 12/02/19 23 2:38 PM EST documented as of this encounter Care Teams Machine Adjuster Leader Case Trim Relationship Specialty Start Date End Date Ernie Noriega MD [address] [place], [place] [phone] PCP - General Internal Medicine 08/25/19 documented as of this encounter
--- OUTSIDE RECORDS SUMMARY | 2025-01-10 12:52 | XMS_ITS | Encounter Summary ---
Author Organization [employer] Address [address] [place] [address] 7t [place] [address] Care Team Providers Care Review Appraiser Name Role Phone Ernie Noriega MD Primary Care Provide r Reason for Visit * Reason Onset Date Comments Med Refill 10/27/2023 Encounter Details Date Type Department Care Team ([facility] st Contact Info) Description 10/27/2023 Refill [facility] [address] [place] [address] Ernie Noriega MD [address] [place] [address] Seasonal allergies; Pain Social History Tobacco Use [...] Office Visit [facility] MEDICINE [address] [place] [address] Ernie Noriega MD [address] [place] [address] documented as of this encounter Visit Diagnoses Diagnosis Seasonal allergies Allergic rhinitis, cause unspecified Pain Generalized pain documented in this encounter Additional Health Concerns Assessment Noted Time PHQ-9 Depression Total Score: 0 12/02/19 23 2:38 PM EST documented as of this encounter Care Teams Review Appraiser Relationship Specialty Start Date End Date Ernie Noriega MD [address] [place] [address] PCP - General Internal Medicine 08/25/19 documented as of this encounter
--- OUTSIDE RECORDS SUMMARY | 2025-01-10 12:52 | XMS_ITS | Encounter Summary ---
Author Organization [employer] Address [address] [place] [address] 7t [place] [address] Care Team Providers Care Sorter Pricer Name Role Phone Ernie Noriega MD Primary Care Provide r Reason for Visit * Reason Onset Date Comments Med Refill 10/25/2023 Encounter Details Date Type Department Care Team ([facility] st Contact Info) Description 10/25/2023 Refill [facility] [address] [place] [address] Perlita Woody MD [address] [place] [address] Primary hypertension Social History Tobacco Use Types [...] Visit [facility] MEDICINE [address] [place] [address] Ernie Noriega MD [address] [place] [address] documented as of this encounter Visit Diagnoses Diagnosis Primary hypertension Unspecified essential hypertension documented in this encounter Additional Health Concerns Assessment Noted Time PHQ-9 Depression Total Score: 0 12/02/19 23 2:38 PM EST documented as of this encounter Care Teams Sorter Pricer Relationship Specialty Start Date End Date Ernie Noriega MD [address] [place] [address] PCP - General Internal Medicine 08/25/19 documented as of this encounter
--- OUTSIDE RECORDS SUMMARY | 2025-01-10 12:52 | XMS_ITS | Encounter Summary ---
Author Organization [employer] Address [address] [place] [address] 7t [place] [address] Care Team Providers Care Sensor Technician Name Role Phone Ernie Noriega MD Primary Care Provide r Reason for Visit * Reason Comments Med Refill Encounter Details Date Type Department Care Team ([facility] st Contact Info) Description 11/20/2023 Refill [facility] [address] [place], [place] [phone] Ernie Noriega MD [address] [place] [address] Pain Social History Tobacco Use Types Packs/Day [...] 01/12/2025 3:00 PM EDT Office Visit [facility] MEDICINE [address] [place] [address] Ernie Noriega MD [address] [place] [address] documented as of this encounter Visit Diagnoses Diagnosis Pain Generalized pain documented in this encounter Additional Health Concerns Assessment Noted Time PHQ-9 Depression Total Score: 0 12/02/19 23 2:38 PM EST documented as of this encounter Care Teams Sensor Technician Relationship Specialty Start Date End Date Ernie Noriega MD [address] [place] [address] PCP - General Internal Medicine 08/25/19 documented as of this encounter
--- OUTSIDE RECORDS SUMMARY | 2025-01-10 12:52 | XMS_ITS | Encounter Summary ---
Author Organization [employer] Address [address] [place] [address] 7t [place] [address] Care Team Providers Care Cigar Patcher Name Role Phone Ernie Noriega MD Primary Care Provide r Reason for Visit * Reason Comments Med Refill Encounter Details Date Type Department Care Team ([facility] st Contact Info) Description 08/10/2023 Refill [facility] [address] [place] [address] Perlita Woody MD [address] [place] [address] Seasonal allergies; Primary hypertension Social History Tobacco [...] [facility] MEDICINE [address] [place] [address] Ernie Noriega MD [address] [place] [address] documented as of this encounter Visit Diagnoses Diagnosis Seasonal allergies Allergic rhinitis, cause unspecified Primary hypertension Unspecified essential hypertension documented in this encounter Additional Health Concerns Assessment Noted Time PHQ-9 Depression Total Score: 0 12/02/19 23 2:38 PM EST documented as of this encounter Care Teams Cigar Patcher Relationship Specialty Start Date End Date Ernie Noriega MD [address] [place] [address] PCP - General Internal Medicine 08/25/19 documented as of this encounter
--- OUTSIDE RECORDS SUMMARY | 2025-01-10 12:52 | XMS_ITS | Encounter Summary ---
Author Organization [employer] Address [address] [place] [address] 7 [place] [address] Care Team Providers Care Head Of Sales Promotion Name Role Phone Ernie Noriega MD Primary Care Provide r Reason for Visit * Reason Onset Date Comments Med Refill 10/25/2023 Encounter Details Date Type Department Care Team ([facility] st Contact Info) Description 10/25/2023 Refill [facility] MEDICINE [address] [place] [address] Ernie Noriega MD [address] [place] [address] Social History Tobacco Use Types Packs/Day Years [...] EDT Office Visit [facility] MEDICINE [address] [place] [address] Ernie Noriega MD [address] [place] [address] documented as of this encounter Visit Diagnoses Not on filedocumented in this encounter Additional Health Concerns Assessment Noted Time PHQ-9 Depression Total Score: 0 12/02/19 23 2:38 PM EST documented as of this encounter Care Teams Head Of Sales Promotion Relationship Specialty Start Date End Date Ernie Noriega MD [address] [place] [address] PCP - General Internal Medicine 08/25/19 documented as of this encounter
--- OUTSIDE RECORDS SUMMARY | 2025-01-10 12:52 | XMS_ITS ---
Author Organization [facility] Address [address] [place] [address] Care Team Providers Care Sql Report Writer Name Role Phone Milton Ro MD, [facility] Primary Care Provide r Unavailable Rodrick Millan Unavailable [phone] REASON FOR VISIT screening Problems Problem Type SNOMED Code ICD Code Onset Dates Problem Status W/U Status Risk Notes Problem Diverticular disease of colon (720416374) Diverticulosis of large intestine without perforation or abscess without bleeding (K57.30) Active confirmed Encounters Encounter Location Date Provider Diagnosis [facility] [place] [address] [place], [place] [phone] 03/18/2024 Rodrick Millan Encounter for scre ening [...] * ISHMAEL HINOJOSADOB: [birth year] (59 yo F)Acc No.[id number]:03/18/2024 COLON WITH MAC Patient:?ISHMAEL HINOJOSA Provider:?Rodrick Millan MD :1965???Age:58 Y???Sex:Female D ate:03/18/2024 Address:[address] [place], [place] [id number] Pcp:Ernie bonilla MD Subjective: * Chief Complaints: * ???1. Screening. * Medical History:? Objective: * Vitals:? Assessment: * Assessment: 1.?Encounter for screening c olonoscopy - Z12.11 (Primary)???2.?Colon polyps - K63.5???3.?Diverticulosis of large intestine without perforation or abscess without bleeding - K57.30???4.?Internal hemorrhoids - K64.8??? Plan: * Treatment: * Procedure Codes:?15140 COLON OSCOPY AND BIOPSY * * The named appointment provid er may or may not be the originator of this progress note, and it is not deemed complete until electronically signed by the appointment provider. Sign off status: Pending * Provider:?Rodrick Millan MD Date:? 024 Generated for Landon westbrook/Jean-Paul/eTransmitting on:?01/10/2025 12:52 PM EDT
--- OUTSIDE RECORDS SUMMARY | 2025-01-10 12:52 | XMS_ITS | Encounter Summary ---
Author Organization [employer] Address [address] [place] [address] [address] [place] [address] Care Team Providers Care Bottom Crane Operator Name Role Phone Ernie Noriega MD Primary Care Provide r Reason for Visit * Reason Comments Med Refill Encounter Details Date Type Department Care Team ([facility] st Contact Info) Description 08/28/2023 Refill [facility] [address] [place] [address] Perlita Woody MD [address] [place] [address] Primary hypertension Social History Tobacco Use Types [...] Visit [facility] MEDICINE [address] [place] [address] Ernie Noriega MD [address] [place] [address] documented as of this encounter Visit Diagnoses Diagnosis Primary hypertension Unspecified essential hypertension documented in this encounter Additional Health Concerns Assessment Noted Time PHQ-9 Depression Total Score: 0 12/02/19 23 2:38 PM EST documented as of this encounter Care Teams Bottom Crane Operator Relationship Specialty Start Date End Date Ernie Noriega MD [address] [place] [address] PCP - General Internal Medicine 08/25/19 documented as of this encounter
--- OUTSIDE RECORDS SUMMARY | 2025-01-10 12:52 | XMS_ITS | Patient Health Record ---
Author Organization [facility] Address [address] [place] [address] Care Team Providers Care Transformation Lead Name Role Phone Milton Ro MD, Ernie Primary Care Provide r Rodrick Juarez Unavailable [phone] Allergies No Known Allergies Results Component Value Reference Range Notes Pathology (Not yet reviewed by provider) Interpretation: Performing Lab:[facility], [address] [place] [id number] Notes/Report: Name: Ishmael Julien Age/Sex: 58/F : 1965 Unit#: [id number] Attend Dr: Rodrick Millan Re03/18/24 Status : [facility] Location: [facility] Disch: SPEC : [id number] REC STATUS: RUBY GILLESPIE NUM: [id number] SANDEEP: 03/18/24 [facility] DR: Rodrick Millan ENTERED: 03/18/24-06 22 [...] A. CEDS Copies To: Ernie Merritt MD [address] [place] [id number] Rodrick Millan [address] [place] [address] [address] [place] [address] Signed (si gnature on file) Donna Northford 03/22/24 1450 END OF REPORT Reason For [...] as needed Inhalation every 4 hrs Active Ipxlcxqwiv-Mgzxfmf-Frgsohrm 50-325-40 MG 1 capsule as needed Orally [...] Problem Status W/U Status Risk Notes Problem 362971124 Colon cancer screening (Z12.11) Active confirmed Problem Diverticular disease of colon (206926088) Diverticulosis of large intestine without perforation or abscess without bleeding (K57.30) Active confirmed Problem [id number] Preprocedural examination (Z01.818) Active confirmed Problem 360507419 Encounter for long-term (current) use of NSAIDs (Z79.1) Active confirmed Encounters Encounter Location Date Provider Diagnosis [facility] [place] Out[place] [address] [place], [place] [phone] 03/18/2024 Rodrick Millan Encounter for screen ing colonoscopy Z12.11 ; Colon polyps K63.5 ; Diverticulosis of large intestine without perforation or abscess without bleeding K57.30 and Internal hemorrhoids K64.8 [facility] [address] [place] [address] 03/17/2024 Rodrick Millan Assessments Encounter Date Diagnosis [...] Start Date Coverage End Date MEDICA[place] [address] [place] [address] [id number] JULIEN ISHMAEL Self - patient is the insured Medical (General) History Medical History History ICD Code Denies LA,DM,CVA,renal disease Asthma Depression/anxiety Hypertension Negative screening colonoscopy in 06/2013 Arthritis/Body aches Surgical History Surgery Date(Month/Year) Back surgery for disc disease Bilateral carpal tunnel Left shoulder C-spine disc surgery Bilateral knee replacements Might be having a left shoulder replacem ent as of the 07/2023 OV
--- OUTSIDE RECORDS SUMMARY | 2025-01-10 12:52 | XMS_ITS | Encounter Summary ---
Author Organization [employer] Address [address] [place] [address] [address] [place] [address] Care Team Providers Care Mailmaster Name Role Phone Ernie Noriega MD Primary Care Provide r Reason for Visit * Reason Onset Date Comments Med Refill 10/27/2023 Encounter Details Date Type Department Care Team ([facility] st Contact Info) Description 10/27/2023 Refill [facility] MED[facility] [address] [place] [address] Ernie Noriega MD [address] [place] [address] Mild persistent asthma without complication; Pain; Chronic [...] EDT Office Visit [facility] [address] [place] [address] Ernie Noriega MD [address] [place] [address] documented as of this encounter Visit Diagnoses Diagnosis Mild persistent asthma without complication Pain Generalized pain Chronic midline low back pain without sciatica Cervical radiculopathy Brachial neuritis or radiculitis nos documented in this encounter Additional Health Concerns Assessment Noted Time PHQ-9 Depression Total Score: 0 12/02/19 23 2:38 PM EST documented as of this encounter Care Teams Mailmaster Relationship Specialty Start Date End Date Ernie Noriega MD [address] [place] [address] PCP - General Internal Medicine 08/25/19 documented as of this encounter
--- OUTSIDE RECORDS SUMMARY | 2025-01-10 12:52 | XMS_ITS | Clinical Summary ---
Author Organization [employer] Address [address] [place] [address] [address] [place] [address] Care Team Providers Care Scrub Woman Name Role Phone Ernie Noriega MD Primary [...] (six) hours if needed. 10/20/19 25 Active albuterol (2.5 MG/3ML) 0.083% nebulizer [...] has chronic low back pain, treated at [facility] by Dr Clint Newberry. Hx of AP fusion from L4-sacrum in 2003. She has received epidural injections initially with good results but that is no longer the case. Pt developed lumbar spinal stenosis and on 01/14/2021 underwent Posterior neural foraminotomy L2-L3 by Dr. Bailey. She was admitted to [facility] from 11/13/2022 until 11/20/2022 due to worsening low back pain with radiation to her right thigh and right leg after an experimental thoracic spinal stimulation procedure at the surgery center [facility] (She was referred there by [...] does not want to follow-up with [facility] [place] d/t the severe pain she experienced with [...] has a Medical [employer] Card recommended by [facility] treating physician. pt utilizes the liquid form. [facility] I had been prescribing tramadol to [...] has a Medical [employer] Card recommended by [facility] treating physician. pt utilizes the liquid form. She is no longer under the care of [facility] I had been prescribing tramadol to [...] Dr Soto who referred her back to [facility] for back pain History of total [...] Under the care of Dr Almeida at [facility]. see med list for current psychiatric meds, no changes. she has been stable they have requested me to continue his medications for insomnia, Ambien and Benadryl Chronic low back pain 05/12/2012 Assessment & Plan (10/13/2024 3:42 PM EST): Pt here for a f/u Hx of chronic low back pain, treated in the past at [facility] by Dr Clint Newberry. Hx of AP fusion from L4-sacrum in 2003. She received epidural injections with good results in the past. but that was no longer the case. Pt developed lumbar spinal stenosis and on 01/14/2021 underwent Posterior neural foraminotomy L2-L3by Dr. Bailey. She was admitted to [facility] from 11/13/2022 until 11/20/2022 due to worsening low back pain with radiation to her right thigh and right leg after an experimental thoracic spinal stimulation procedure at the surgery center of [facility] (She was referred there by [facility]). Procedure was aborted after pt experienced [...] the pain clinic. Pt today c/o pain 10 Plan: Refer to Pain Clinic Assessment & Plan (05/28/2023 3:25 PM EDT): Pt here for a f/u Hx of chronic low back pain, she had been receiving treatment at [facility] by Dr Clint Newberry. Hx of AP fusion from L4-sacrum in 2003. She has received epidural injections with good results in the past. but that was no longer the case. Pt developed lumbar spinal stenosis and on 01/14/2021 underwent Posterior neural foraminotomy L2-L3by Dr. Bailey. Patient is here for a follow up. She was recently admitted to [facility] from 11/13/2022 until 11/20/2022 due to worsening low back pain with radiation to her right thigh and right leg after an experimental thoracic spinal stimulation procedure at the surgery [facility] (She was referred there by [facility]). Procedure was aborted after pt experienced [...] does not want to follow-up with [facility] [place] d/t the severe pain she experienced with [...] pain, she had been receiving treatment at [facility] by Dr Clint Newberry. Hx of AP fusion from L4-sacrum in 2003. She has received epidural injections with good results in the past. but that was no longer the case. Pt developed lumbar spinal stenosis and on 01/14/2021 underwent Posterior neural foraminotomy L2-L3by Dr. Bailey. She was admitted to [facility] from 11/13/2022 until 11/20/2022 due to worsening low back pain with radiation to her right thigh and right leg after an experimental thoracic spinal stimulation procedure at the surgery [facility] (She was referred there by [facility]). Procedure was aborted after pt experienced [...] does not want to follow-up with [facility] [place] d/t the severe pain she experienced with [...] pain, she had been receiving treatment at [facility] by Dr Clint Newberry. Hx of AP fusion from L4-sacrum in 2003. She has received epidural injections with good results in the past. but that was no longer the case. Pt developed lumbar spinal stenosis and on 01/14/2021 underwent Posterior neural foraminotomy L2-L3by Dr. Bailey. Patient is here for a follow up. She was recently admitted to [facility] from 11/13/2022 until 11/20/2022 due to worsening low back pain with radiation to her right thigh and right leg after an experimental thoracic spinal stimulation procedure at the surgery center [facility] (She was referred there by [facility]). Procedure was aborted after pt experienced [...] does not want to follow-up with [facility] [place] d/t the severe pain she experienced with [...] Encounters Date Type Department Care Team Description 01/10/2025 Refill [facility] MEDICINE [address] [place] [address] Ernie Noriega MD Primary osteoarthritis of knee, unspecified laterality 01/10/2025 Refill [facility] MEDICINE [address] [place] [address] Ernie Noriega MD Chronic midline low back pain without sciatica 01/09/2025 Refill [facility] MEDICINE [address] [facility] [place] [address] Ofelia Melgar MD 01/09/2025 Refill [facility] MEDICINE [address] [place] [address] Ernie Noriega MD Ischial pain, right; Chronic midline low back pain without sciatica; Primary osteoarthritis of knee, unspecified laterality 01/05/2025 Travel 12/29/2024 Telephone [facility] MEDICINE [address] [place] [address] Ernie Noirega MD Chart Prep 12/23/2024 Population Health Risk Score [facility] (C[facility]) Department [address] [place] [address] [phone] Provider, Population Health Generic 12/23/2024 Telephone [facility] MEDICINE [address] [place] [address] Ernie Noriega MD Referral 12/22/2024 Telephone [facility] WALK-IN CENTER [address] [place] [address] Marty Soto MD Results 12/22/2024 Orders Only [facility] WALK[facility] CENTER [address] [place] [phone] Marty Soto MD Right foot pain (Primary Dx) 12/22/2024 Telephone [facility] MEDICINE [address] [place] [phone] Ernie Noriega MD Nurse Triage 12/21/2024 9:00 AM EDT Office Visit [facility] [address] [place] [address] Marty Soto MD Right foot pain (Primary Dx); Ecchymoses, spontaneous 12/15/2024 Refill [facility] MEDICINE [address] [place] [address] Ernie Noriega MD 12/09/2024 Orders Only [facility] External Provider, [facility] 11/28/2024 Refill [facility] MEDICINE [address] [place] [address] Ernie Noriega MD Gastritis without bleeding, unspecified chronicity, unspecified gastritis type 11/18/2024 Refill [facility] MOBILE VACCINE CLINIC [address] [place] [address] Ernie Noriega MD Primary hypertension 11/17/2024 Refill [facility] MEDICINE [address] [place] [address] Ernie Noriega MD Seasonal allergies 11/14/2024 Refill [facility] MEDICINE [address] [place] [address] Ernie Noriega MD Primary osteoarthritis of knee, unspecified laterality 11/07/2024 Refill [facility] MEDICINE [address] [facility] [place] [address] Ernie Noriega MD Chronic midline low back pain without sciatica 11/01/2024 Refill [facility] MEDICINE [address] [facility] [place] [address] Sugar Mitchell MD Seasonal allergies 11/01/2024 Refill [facility] MEDICINE [address] [facility] [place] [address] Sugar Mitchell MD Seasonal allergies 10/25/2024 1:20 PM EST Office Visit [facility] WALK[facility]IN [facility]ENTER [address] [facility] [place] [address] Ofelia Melgar MD UTI symptoms 10/25/2024 Refill [facility] MEDICINE [address] [place] [address] Ernie Noriega MD Chronic midline low back pain without sciatica 10/25/2024 Telephone [facility] MEDICINE [address] [facility] [place] [address] Ernie Noriega MD Med Refill 10/25/2024 Travel 10/17/2024 Refill [facility] MEDICINE [address] [facility] [place] [address] Ernie Noriega MD Primary osteoarthritis of knee, unspecified laterality 10/16/2024 Refill [facility] MEDICINE [address] [facility] [place] [address] Sugar Mitchell MD 10/14/2024 Telephone [facility] MEDICINE 230 [facility] [place] [address] Ernie Noriega MD Med Refill 10/13/2024 3:00 PM EST Office Visit [facility] MEDICINE [address] [facility] [place] [address] Ernie Noriega MD Essential hypertension (Primary Dx); Mild persistent asthma without complication; Chronic midline low back pain without sciatica 10/13/2024 Refill [facility] MEDICINE [address] [facility] [place] [address] Ernie Noriega MD Chronic midline low back pain without sciatica 10/13/2024 Travel 10/12/2024 Travel 10/12/2024 Refill [facility] MEDICINE [address] [place] [address] Ernie Noriega MD Primary osteoarthritis of knee, unspecified laterality from [...] [facility] MEDICINE [address] [place], [place] [phone] Ernie Noriega MD [address] [place] [address] Health Maintenance Due Date Last Done Comments [...] Routine 10/25/2024 12:00 AM EST UTI symptoms HM COLONOSCOPY Routine 03/18/2024 BI MAMMOGRAM SCREENING [...] Blot (IgG, IgM) (12/21/2024 10:13 AM EDT) Pathologist [facility] Lyme Antibody Screen <0.90 index [facility] Comment:Index Interpretation ----- < 0.90 Negative [...] when erythemamigrans is apparent.THIS TEST WAS PERFORMED AT:[employer] [place] [phone] ANTONY MD Lyme Blot [facility] 12/21/2024 10:1 3 AM EDT 12/21/2024 11:45 AM EDT us Marty Soto MD LAB BLOOD ORDERABLES Final Resul t [facility] [address] [place] [phone] * (ABNORMAL) CBC auto differential (12/21/2024 10:13 AM EDT) [facility] White Blood Count 8.1 4.8 - 10.8 X10*3/uL [facility] Red Blood Count 4.14(L) 4.20 - 5.50 X10*6/uL [facility] Hemoglobin 11.6(L) 12.0 - 16.0 g/dl [facility] Hematocrit 37.3 37.0 - 47.0 % [facility] Mean Corpuscular Volume 90.1 80.0 - 98.0 fL [facility] Mean Corpuscular Hemoglobin 28.0 27.0 - 33.0 pg [facility] Mean Corpuscular HGB Conc 31.1 31.0 - 35.0 g/dl [facility] Red Cell Distribution Width 13.6 11.0 - 16.0 % [facility] Platelet Count 312 160 - 400 X10*3/uL [facility] Mean Platelet Volume 10.2 9.4 - 12.3 fL [facility] Neutrophils Percent Auto 55.2 45 - 73 % [facility] Imm Gran Pct Auto 0.4 0.0 - 0.4 % [facility] Lymphocytes Percent Auto 35.1 20 - 40 % [facility] Monocytes Percent Auto 7.3 2 - 11 % [facility] Eosinophils Percent Auto 1.4 0 - 4 % [facility] Basophils Percent Auto 0.6 0 - 2 % [facility] NRBC Pct Auto 0.0 0.0 - 0.2 /100WBC [facility] Neutrophils Absolute Auto 4.5 2.0 - 8.3 x10*3/uL [facility] Imm Gran Abs Auto 0.03 0.00 - 0.03 X10*3/uL [facility] Lymphocytes Absolute Auto 2.9 1.2 - 4.9 X10*3/uL [facility] Monocytes Absolute Auto 0.6 0.1 - 1.2 X10*3/uL [facility] Eosinophils Absolute Auto 0.1 0.0 - 0.4 X10*3/uL [facility] Basophils Absolute Auto 0.1 0.0 - 0.2 X10*3/uL [facility] NRBC Abs Auto 0.000 0.0 - 0.012 X10*3/uL [facility] Blood Venous blood specimen / Unknown 12/21/2024 10:13 AM EDT 12/21/2024 11:45 AM EDT us Marty Soto MD LAB BLOOD ORDERABLES Final Resul t Performing Organization Address [facility] Co de Phone Number [facility] [address] [place] [phone] * Partial Thromboplastin Time, Activated (APTT) (12/21/2024 10:13 AM EDT) Partial Thromboplastin Time 33.7 26.0 - 36.8 SEC [facility] Comment:For information rega rding the monitoring of direct thrombininhibitors, please refer to Pharmacy. Blood Venous blood specimen / Unknown 12/21/2024 10:13 AM EDT 12/21/2024 11:45 AM EDT us Marty Soto MD LAB BLOOD ORDERABLES Final Resul t Performing Organization Address [facility] Co de Phone Number [facility] [address] [place] [phone] * Prothrombin Time-INR (12/21/2024 10:13 AM EDT) Prothrombin Time 11.4 10.9 - 12.4 SEC [facility] INTERNATIONAL NORM RATIO 1.0 0.9 - 1.1 [facility] Comment:INTERNATIONAL NORMAL IZED RATIO (INR) REFERENCE [...] ORDERABLES Final Resul t Performing Organization Address [facility] Co de Phone Number [facility] [address] [place] [address] [phone] * Uric acid (12/21/2024 10:13 AM EDT) Uric Acid 4.6 2.4 - 5.7 mg/dL [facility] Blood Venous blood specimen / Unknown 12/21/2024 10:13 AM EDT 12/21/2024 11:45 AM EDT us Marty Soto MD LAB BLOOD ORDERABLES Final Resul t Performing Organization Address [facility] Co de Phone Number [facility] [address] [place] [phone] * XR Foot 3+ Views Right (12/21/2024 9:42 AM EDT) Anatomical Region Laterality Modality Lower Extremities, Foot Right Radiogra phic Imaging 12/21/2024 9:42 AM EDT Narrative 12/21/2024 10:03 AM EDT ?[facility] ?[address] ?[place] [address] ?XRay Report ? Signed ? Patient: Julien,Mcneal ?MR#: [id number] ?? 12 ? : 1965 ?Acct:[id number] ? Age/Sex: 59 / F ?ADM Date: 03/12/25 ? Loc: HO.HHCX ? Attending Dr: Marty Soto MD ? Ordering Physician: MARTY SOTO MD ?? Date of Service: 03/12/25 ?? Procedure(s): XR foot RT min 3V ?? Accession Number(s): [id number] ? cc: MARTY SOTO MD ? EXAMINATION: [...] ??Rodrick Williamson MD ??12/21/2024 10:00 AM EDT ? Dictated By: ?Rodrick Williamson MD ? Signed By: ?<Electronically signed by Rodrick Williamson MD in OV> ?12/21/24 1000 ? DD/ 0942 ? TD/TT: 12/21/24 0956 ? [employer]: ? Procedure Note Donotazarinterpreter, Image - 12/21/2024 [place] [address] XRay Report Signed Patient: Miguelina JulienMR#: [id number] 12 : 1965Acct:[id number] Age/Sex: 59 / FADM Date: 12/21/24 Loc: HO.HHCX Attending Dr: Marty Soto MD Ordering Physician: MARTY SOTO MD Date of Service: 12/21/24 Procedure(s): XR foot RT min 3V Accession Number(s): [id number] cc: MARTY SOTO MD EXAMINATION: XR FOOT [...] Williamson MD in OV> 12/21/24 1000 DD/ 1 TD/TT: 12/21/24955 [employer]: us Marty Soto MD [facility] XR PROCEDURES Final Result * FL Guidance in OR (12/09/2024 9:08 AM EST) Anatomical Region Laterality Modality X-Ray Angiograph y 12/09/2024 9:08 AM EST Narrative 12/09/2024 9:48 AM EST ? [facility] ?[address] ?[place] [address] ? Fluoroscopy Report ? Signed ? Patient: Julien,Mcneal ?MR#: [id number] ?? 12 ? : 1965 ?Acct:[id number] ? Age/Sex: 59 / F ?ADM Date: 12/09/24 ? Loc: HO.SSS ? Attending Dr: Aldo Casas MD ? Ordering Physician: Aldo Casas MD ?? Date of Service: 12/09/24 ?? Procedure(s): FL guidance in OR ?? Accession Number(s): [id number] ? cc: Ofelia Melgar MD; Aldo Casas [...] DD/ 0908 ? TD/TT: 12/09/24 0930 ? [employer]: ? Procedure Note Rene Motley - 12/09/[address] [address] Fluoroscopy Report Signed Patient: Miguelina Julien#: [id number] [birth year] : 1965Acct:[id number] Age/Sex: 59 / FADM Date: 12/09/24 Loc: HO.SSS Attending Dr: Aldo Casas MD Ordering Physician: Aldo Casas MD Date of Service: 12/09/24 Procedure(s): FL guidance in OR Accession Number(s): [id number] cc: Ofelia Melgar MD; Aldo Casas MD [...] signed by Rodrick Williamson MD in OV> 12/09/2445 DD/ 0908 TD/TT: 12/09/24 09 [employer]: [facility] External Provider IMG IR PROCEDURES Final Result [...] (10/25/2024 12:00 AM EST) Color Urine Yellow [facility] Appearance Urine Clear [facility] PH 5.5 5.0 - 9.0 [facility] Glucose Urine UA Negative Negative mg/dL [facility] Urine Blood Negative Negative [facility] Specific [place] - Urine 1.015 1.005 - 1.025 [facility] Urine Protein Negative Neg-Trace mg/dL [facility] Urine Ketones Negative Negative mg/dL [facility] Nitrite Urine Negative Negative [facility] Leukocyte Esterase Urine Negative Negative [facility] RBC Urine 0-2 0 - 2 /HPF [facility] Urine WBC 0-5 0 - 5 /HPF [facility] Urine Squamous Epithelial Cell 0-2 0 - 2 /HPF [facility] Urine Bacteria None Seen None Seen [facility] Hyaline Casts, Urine 0-2 0 - 2 /LPF [facility] Urine 10/25/2024 10/25/2024 Narrative [facility] - 10/25/2024 5:35 PM EST Urine, Clean Catch Ofelia Melgar MD LAB URINE ORDERABLES Final Result Performing Organization Address [facility] Co de Phone Number [facility] [address] [place] [phone] * (ABNORMAL) Hm Colonoscopy (03/18/2024) Colonoscopy Abnormal( A) Normal Comment:Tubular Adenoma 03/18/2024 Historical Provider HEALTH MAINTENANCE Final Result * BI Mammogram Screening Tomosynthesis Bilateral (01/01/2024 8:45 AM EDT) Anatomical Region Laterality Modality Breast Bilateral Mammography 01/01/2024 8:45 AM EDT Narrative 01/19/2024 10:06 AM EDT ? [facility] ? [address] ?[place] [address] ? Mammography Report ? Signed ? Patient: Juan Pablo Taylor,Mcneal ?MR#: ?? [id number] ? : 1965 ?Acct:[id number] ? Age/Sex: 58 / F ?ADM Date: 01/01/24 ? Loc: HO.MAMMO ? Attending Dr: Ernie Merritt MD ? Ordering Physician: Ernie Merritt MD ?Resu ?? lts: 2Benign Findings ? Date of Service: 01/01/24 ?Follow Up: 1 Year From Orig ?? inal Mammogram ? Procedure(s): MM tomosynthesis screening BI ?? Accession Number(s): [id number] ? cc: Ernie Merritt MD ? EXAMINATION: [...] 1003 ? DD/ 0845 ? TD/TT: ? [employer]: ? Procedure Note Tiesha, Image - 01/19/2024 [facility] [address] [place] [address] Mammography Report Signed Patient: Miguelina Watson#: [id number] : 1965Acct:[id number] Age/Sex: 58 / FADM Date: 01/01/24 Loc: HO.MAMMO Attending Dr: Ernie Merritt MD Ordering Physician: Ernie Merritt MDResu lts: 2Benign Findings Date of Service: 01/01/24Follow Up: 1 Year From Orig inal Mammogram Procedure(s): MM tomosynthesis screening BI Accession Number(s): [id number] cc: Ernie Merritt MD EXAMINATION: MM SCREENING [...] in OV> 01/19/24 1003 DD/ 0845 TD/TT: [employer]: us Ernie Ro MD IMG BI PROCEDURES Fin al Result * (ABNORMAL) Lipid Panel with Reflex to Direct LDL (11/07/2022 8:24 AM EST) Cholesterol, Total 235(H) <200 mg/dL [facility] [employer] HDL Cholesterol 64 > OR = 50 mg/dL [facility] [place] [employer] Triglycerides 252(H) <150 mg/dL [facility] Comment: If a non-fasting specimen was collected, consider repeat triglyceride testing on a fasting specimen if clinically indicated. Bebo et al. J. of Clin. Lipidol. 2015;9:129-169. LDL Cholesterol 132(H) mg/dL (calc) [facility] [employer] Comment: Reference range: <100 Desirable range <100 mg/dL for primary prevention; ?? <70 mg/dL for patients with CHD or diabetic patients with > or = 2 CHD risk factors. LDL-C is now calculated using the Charlie calculation, which is a validated novel method providing better accuracy than the Friedewald equation in the estimation of LDL-C. Jordan CARREON et al. BHARAT. 2013;310(19): 3582-0458 (http://education.[employer]/faq/QEB617) Chol/HDLC Ratio 3.7 <5.0 (calc) [facility] Non-HDL Cholesterol 171(H) <130 mg/dL (calc) [facility] Comment: For patients with diabetes plus 1 major ASCVD risk factor, treating to a non-HDL-C goal of <100 mg/dL (LDL-C of <70 mg/dL) is considered a therapeutic option. 11/07/2022 8:24 AM EST 11/07/2022 8:25 AM EST Narrative [facility] - 11/08/2022 12:51 AM EST FASTING:YES FASTING: YES Ernie Ro MD LAB BLOOD ORDERABLES Final Result [address], [place] [phone] [facility] [place] [employer] [address] [facility], ([address]) [place] [phone] * Hepatitis C Antibody with Reflex to HCV, RNA, Quantitative, Real-Time PCR (11/07/2022 8:24 AM EST) Hepatitis C Antibody NON-REACT TAMARA NON-REACT TAMARA [facility] [employer] Index 0.12 <1.00 [facility] [employer] Comment: HCV antibody was non-reactive. There is no laboratory evidence of HCV infection. In most cases, no further action is required. However, if recent HCV exposure is suspected, a test for HCV RNA (test code 27798) is suggested. For additional information please refer to http://education.[facility].[employer]/faq/SIA75s1 (This link is being provided for informational/ educational purposes only.) Blood Venous blood specimen / Unknown 11/07/2022 8:24 AM EST 11/07/2022 8:25 AM EST Narrative [facility] - 11/08/2022 12:51 AM EST FASTING:YES FASTING: YES Ernie Ro MD LAB BLOOD ORDERABLES Final Result [facility] [address] [place] [address], [place] [phone] [facility] [place] [facility] [address] [facility], ([address]) [place] [address] * HPV E6/E7 RFLX SERGIO 16 18/45 (12/19/2020 3:40 PM EST) HPV 16 RNA [facility] HPV 18/45 RNA [facility] HPV E6 E7 ADD [facility] HPV mRNA E6/E7 rflx Not Detected Not Detected [facility] Comment: Methodology: Thread Winder-Mediated Amplification This assay detects E6/E7 viral messenger RNA (mRNA) from 14 high-risk HPV types (16,18,31,33,35,39,45,51,52,56,58,59,66,68). The analytical performance characteristics of this assay have been determined by [facility]. The modifications have not been cleared or approved by the FDA. This assay has been validated pursuant to the CLIA regulations and is used for clinical purposes. For additional information, please refer to http://education.i-marker/faq/INX766w3 (This link if provided for information/ educational purposes only.) THIS TEST WAS PERFORMED AT: [facility] [employer] [address] [place] [address],[address] [place], [place] ??[phone] FLACA ANTONY MD 12/19/2020 3:40 PM EST us Historical Provider HISTORICAL/NON ORDERABLE LABS Final Result [facility] [address] from Last 3 Months or Most Recently Relevant to Health Maintenance Insurance [employer] C3 Care Teams Scrub Woman Relationship Specialty Start Date End Date Ernie Noriega MD [address] [place] [address] PCP - General Internal Medicine 08/25/19
--- OUTSIDE RECORDS SUMMARY | 2025-01-10 12:52 | XMS_ITS | Encounter Summary ---
Author Organization [facility] Address [address] 7t [place] [address] Care Team Providers Care Scaffolding Helper Name Role Phone Ernie Noriega MD Primary Care Provide r Reason for Visit * Reason Onset Date Comments Med Refill Referral 12/10/2022 Patient walked i n requesting for referral to a neurologist. It is difficult for her to walk and do her mort[place] activities. Pt has had [facility] go to her house for therapy, but it has not made any improvements. Encounter Details Date Type Department Care Team (Late st Contact Info) Description 12/10/2022 Refill [facility] [address] [place], [place] [phone] Ernie Noriega MD [address] [place], [place] [phone] Pain Social History Tobacco Use Types Packs/Day [...] [facility] [address] [place] [address] Ernie Noriega MD [address] [place] [address] documented as of this encounter Visit Diagnoses Diagnosis Pain Generalized pain documented in this encounter Additional Health Concerns Assessment Noted Time PHQ-9 Depression Total Score: 0 12/02/19 23 2:38 PM EST documented as of this encounter Care Teams Scaffolding Helper Relationship Specialty Start Date End Date Ernie Noriega MD [address] [place] [address] PCP - General Internal Medicine 08/25/19 documented as of this encounter
--- OUTSIDE RECORDS SUMMARY | 2025-01-10 12:52 | XMS_ITS | Encounter Summary ---
Author Organization [facility] Address [address] [place] [address] 7t [place] [address] Care Team Providers Care Touch Up Carver Name Role Phone Ernie Noriega MD Primary Care Provide r Encounter Details Date Type Department Care Team (Late st Contact Info) Description 04/13/2023 Orders Only [facility] MEDICINE [address] [place] [address] [phone] Sugar Mitchell MD [address] [place] [address] [phone] Neuropathic pain of right lower extremity (Primary [...] [facility] [address] [place] [phone] Ernie Noriega MD [address] [place], [place] [phone] documented as of this encounter Procedures Procedure Name Priority Date/Time Associated Diagnosis Comments BASIC METABOLIC PANEL Routine 05/13/2023 8:40 AM EDT Neuropathic pain of right lower extremity documented in this encounter Results * (ABNORMAL) Basic Metabolic Panel (05/13/2023 8:40 AM EDT) Sodium 141 135 - 145 mmol/L [facility] Potassium 3.5 3.3 - 5.1 mmol/L [facility] Chloride 103 96 - 108 mmol/L [facility] Carbon Dioxide 23 22 - 29 mmol/L [facility] Anion Gap 19 12 - 20 [facility] Urea Nitrogen (BUN) 15 9 - 16 mg/dL [facility] Creatinine, Serum 0.78 0.5 - 1.4 mg/dL [facility] Estimated Glomerular Filt Rate >60 [facility] Comment:NOTE: For -Am erican individuals, multiply the result by 1.210.Chronic Kidney Disease: Estimated GFR < 60 mL/min/1.54u5Tuenbq Kidney Disease: Estimated GFR < 15 mL/min/1.73m2 Glucose 151(H) 60 - 115 mg/dL [facility] Calcium 9.3 8.4 - 10.2 mg/dL [facility] Blood Venous blood specimen / Unknown 05/13/2023 8:40 AM EDT 05/13/2023 11:14 AM EDT us Sugar Mitchell MD LAB BLOOD ORDERABLES Final Resul t [facility] [address] [place] [address] [phone] documented in this encounter Visit Diagnoses Diagnosis Neuropathic pain of right lower extremity- Primary documented in this encounter Additional Health Concerns Assessment Noted Time PHQ-9 Depression Total Score: 0 12/02/19 23 2:38 PM EST documented as of this encounter Care Teams Touch Up Carver Relationship Specialty Start Date End Date Ernie Noriega MD [address] [place] [address] PCP - General Internal Medicine 08/25/19 documented as of this encounter
--- OUTSIDE RECORDS SUMMARY | 2025-01-10 12:53 | XMS_ITS | Encounter Summary ---
Author Organization [employer] Address [address] [place] [address] 7t [place] [address] Care Team Providers Care Granite Sandblaster Apprentice Name Role Phone Ernie Noriega MD Primary Care Provide r Reason for Visit * Reason Onset Date Comments Med Refill 09/28/2024 Encounter Details Date Type Department Care Team ([facility] st Contact Info) Description 09/28/2024 Refill [facility] [address] [place] [address] Ernie Noriega MD [address] [place] [address] Primary osteoarthritis of knee, unspecified laterality Social [...] Office Visit [facility] [address] [place] [address] Ernie Noriega MD [address] [place] [address] documented as of this encounter Visit Diagnoses Diagnosis Primary osteoarthritis of knee, unspecified laterality documented in this encounter Additional Health Concerns Assessment Noted Time PHQ-9 Depression Total Score: 2 01/21/20 24 1:25 PM EDT documented as of this encounter Care Teams Granite Sandblaster Apprentice Relationship Specialty Start Date End Date Ernie Noriega MD [address] [place] [address] PCP - General Internal Medicine 08/25/19 documented as of this encounter
--- OUTSIDE RECORDS SUMMARY | 2025-01-10 12:53 | XMS_ITS | Encounter Summary ---
Author Organization [employer] Address [address] [place] [address] 7 [place] [address] Care Team Providers Care Social Science Research Assistant Name Role Phone Ernie Noriega MD Primary Care Provide r Reason for Visit * Reason Onset Date Comments Medication Question 10/03/2022 returning call 10/03/2022 Encounter Details Date Type Department Care Team ([facility] st Contact Info) Description 10/03/2022 Telephone [facility] [address] [place] [address] Ernie Noriega MD [address] [place] [address] Medication Question; returning call Social History Tobacco [...] pt returning call Please contact pt at [phone] * Telephone Encounter - Peg Scott RN - 10/10/2022 11:17 AM EST T/C placed to pt x2AM re below message. No answer, left v/m. Will retask to [place] [facility] for third attempt. * Telephone Encounter - Peg Scott RN - 10/08/2022 3:32 PM EST Incoming T/C from Sylvia CAMARILLO from [facility]. She states spoke with SUPERVISOR FERTILIZER PROCESSING who saw pt 09/24. It is not in the OV note (which is located in Epic under Media tab) but that pt reported pain during appt and SUPERVISOR FERTILIZER PROCESSING advised pt speak to her PCP and [...] next month with PCP. Will send to [place] [facility] to attempt second call. [place] sending to PCP as FYI. * Telephone Encounter - Peg Scott RN - 10/08/2022 10:34 AM EST Reviewed most recent note from [facility] note. No mention of increased dose. T/C placed to them who stated they don't see anything but will send message to provider who is out onvacation and will be back next week. Provided my direct ext for call back. * Telephone Encounter - Marjorie Bass - 10/03/2022 10:42 AM EST Tc from pt calling to inform was told by her [facility] DR to request [...] EDT Office Visit [facility] [address] [facility] [place] [address] Ernie Noriega MD [address] [place] [address] documented as of this encounter Visit Diagnoses Not on filedocumented in this encounter Care Teams Social Science Research Assistant Relationship Specialty Start Date End Date Ernie Noriega MD [address] [facility] [place] [address] PCP - General Internal Medicine 08/25/19 documented as of this encounter
--- OUTSIDE RECORDS SUMMARY | 2025-01-10 12:53 | XMS_ITS | Encounter Summary ---
Author Organization [employer] Address [address] [place] [address] 7 [place] [address] Care Team Providers Care Inorganic Chemistry Professor Name Role Phone Ernie Noriega MD Primary Care Provide r Reason for Visit * Reason Onset Date Comments Med Refill 09/28/2024 Encounter Details Date Type Department Care Team ([facility] Contact Info) Description 09/28/2024 Telephone [facility] [address] [place] [address] Ernie Noriega MD [address] [place] [address] Med Refill Social History Tobacco Use Types [...] 300 MG capsule To be sent to: [facility]/pharmacy [address] [place] [address] documented in this encounter Plan of Treatment Upcoming Encounters Date Type Department Care Team (Late st Contact Info) Description 01/12/2025 3:00 PM EDT Office Visit [facility] [address] [place] [address] Ernie Noriega MD [address] [place], [place] [phone] documented as of this encounter Visit Diagnoses Not on filedocumented in this encounter Additional Health Concerns Assessment Noted Time PHQ-9 Depression Total Score: 2 01/21/20 24 1:25 PM EDT documented as of this encounter Care Teams Inorganic Chemistry Professor Relationship Specialty Start Date End Date Ernie Noriega MD [address] [place] [address] PCP - General Internal Medicine 08/25/19 documented as of this encounter
--- OUTSIDE RECORDS SUMMARY | 2025-01-10 12:53 | XMS_ITS ---
Author Organization [facility] Address [address] [place] [address] Care Team Providers Care Design And Sales Consultant Name Role Phone Milton Ro MD, Ernie Primary Care Provide r Rodrick Juarez [phone] REASON FOR VISIT PROCEDURE TOMORROW Encounters Encounter Location Date Provider Diagnosis [facility] [address] [place] [address] 03/17/2024 Rodrick Millan Plan Of Treatment No Information Progress Notes * ISHMAEL HINOJOSADOB: [birth year] (58 yo F)Acc No.[id number]:03/17/2024 Patient:?ISHMAEL HINOJOSA :1965???Age:58 Y???Sex:Female Address:[address] [place], [address] * true * Date:? Generated for Gonzálezi pietro/Jean-Paul/eTransmitting on:?01/10/2025 12:52 PM EDT
--- OUTSIDE RECORDS SUMMARY | 2025-01-10 12:53 | XMS_ITS | Encounter Summary ---
Author Organization [employer] Address [address] [place] [address] 7t [place] [address] Care Team Providers Care Industrial Ecology Technician Name Role Phone Ernie Noriega MD Primary Care Provide r Reason for Visit * Reason Comments Med Refill Encounter Details Date Type Department Care Team ([facility] st Contact Info) Description 12/25/2023 Refill [facility] [address] [place], [place] [phone] Ernie Noriega MD [address] [place], [place] [phone] Pain; Primary hypertension; Seasonal allergies Social History [...] EDT Office Visit [facility] [address] [place] [address] Ernie Noriega MD [address] [place] [address] documented as of this encounter Visit Diagnoses Diagnosis Pain Generalized pain Primary hypertension Unspecified essential hypertension Seasonal allergies Allergic rhinitis, cause unspecified documented in this encounter Additional Health Concerns Assessment Noted Time PHQ-9 Depression Total Score: 0 12/02/19 23 2:38 PM EST documented as of this encounter Care Teams Industrial Ecology Technician Relationship Specialty Start Date End Date Ernie Noriega MD [address] [place] [address] PCP - General Internal Medicine 08/25/19 documented as of this encounter
--- OUTSIDE RECORDS SUMMARY | 2025-01-10 12:53 | XMS_ITS | Encounter Summary ---
Author Organization [employer] Address [address] [place] [address] 7t [place] [address] Care Team Providers Care Autopsy Assistant Name Role Phone Ernie Noriega MD Primary Care Provide r Reason for Visit * Reason Onset Date Comments Med Refill 10/13/2024 Encounter Details Date Type Department Care Team ([facility] st Contact Info) Description 10/13/2024 Refill [facility] [address] [place] [address] Ernie Noriega MD [address] [place] [address] Chronic midline low back pain without sciatica [...] PM EDT Office Visit [facility] [address] [place] [address] Ernie Noriega MD [address] [place] [address] documented as of this encounter Visit Diagnoses Diagnosis Chronic midline low back pain without sciatica documented in this encounter Additional Health Concerns Assessment Noted Time PHQ-9 Depression Total Score: 2 01/21/20 24 1:25 PM EDT documented as of this encounter Care Teams Autopsy Assistant Relationship Specialty Start Date End Date Ernie Noriega MD [address] [place] [address] PCP - General Internal Medicine 08/25/19 documented as of this encounter
--- OUTSIDE RECORDS SUMMARY | 2025-01-10 12:53 | XMS_ITS | Encounter Summary ---
Author Organization [employer] [facility] Address [address] [place] [address] 7t [place] [address] Care Team Providers Care Wheat Buyer Name Role Phone Ernie Noriega MD Primary Care Provide r Reason for Visit * Reason Onset Date Comments verbal order 11/21/2022 Encounter Details Date Type Department Care Team (Late Contact Info) Description 11/21/2022 Telephone [facility] [address] [place] [address] Ernie Noriega MD [address] [place] [address] verbal order Social History Tobacco Use Types [...] 1:08 PM EST Tc from Baldemar from [facility] calling to inform pt started home services today . Baldemar is also requesting a verbal order for pt to start physical therapy for 2x a week for 4 weeks . Best contact # [phone]. documented in this encounter Plan of Treatment Upcoming Encounters Date Type Department Care Team (Late Contact Info) Description 01/12/2025 3:00 PM EDT Office Visit [facility] [address] [facility] [place] [address] Ernie Noriega MD [address] [place] [address] documented as of this encounter Visit Diagnoses Not on filedocumented in this encounter Care Teams Wheat Buyer Relationship Specialty Start Date End Date Ernie Noriega MD [facility] [place] [address] PCP - General Internal Medicine 08/25/19 documented as of this encounter
--- OUTSIDE RECORDS SUMMARY | 2025-01-10 12:53 | XMS_ITS | Encounter Summary ---
Author Organization [employer] Address [address] [place] [address] 7t [place] [address] Care Team Providers Care Flight Steward Name Role Phone Ernie Noriega MD Primary Care Provide r Reason for Visit * Reason Onset Date Comments Med Refill 10/12/2024 Encounter Details Date Type Department Care Team ([facility] st Contact Info) Description 10/12/2024 Refill [facility] [address] [place] [address] Ernie Noriega MD [address] [place] [address] Primary osteoarthritis of knee, unspecified laterality Social [...] [facility] [address] [place] [address] Ernie Noriega MD [address] [place] [address] documented as of this encounter Visit Diagnoses Diagnosis Primary osteoarthritis of knee, unspecified laterality documented in this encounter Additional Health Concerns Assessment Noted Time PHQ-9 Depression Total Score: 2 01/21/20 24 1:25 PM EDT documented as of this encounter Care Teams Flight Steward Relationship Specialty Start Date End Date Ernie Noriega MD [address] [place] [address] PCP - General Internal Medicine 08/25/19 documented as of this encounter
--- OUTSIDE RECORDS SUMMARY | 2025-01-10 12:53 | XMS_ITS | Encounter Summary ---
Author Organization [employer] Address [address] [place] [address] 7t [place] [address] Care Team Providers Care Cheese Wrapper Name Role Phone Ernie Noriega MD Primary Care Provide r Reason for Visit * Reason Onset Date Comments Med Refill 09/28/2024 Encounter Details Date Type Department Care Team ([facility] st Contact Info) Description 09/28/2024 Refill [facility] [address] [place] [address] Ernie Noriega MD [address] [place] [address] Chronic midline low back pain without sciatica; [...] Visit [facility] [address] [place] [address] Ernie Noriega MD [address] [place] [address] documented as of this encounter Visit Diagnoses Diagnosis Chronic midline low back pain without sciatica Cervical radiculopathy Brachial neuritis or radiculitis nos documented in this encounter Additional Health Concerns Assessment Noted Time PHQ-9 Depression Total Score: 2 01/21/20 24 1:25 PM EDT documented as of this encounter Care Teams Cheese Wrapper Relationship Specialty Start Date End Date Ernie Noriega MD [address] [place] [address] PCP - General Internal Medicine 08/25/19 documented as of this encounter
--- OUTSIDE RECORDS SUMMARY | 2025-01-10 12:53 | XMS_ITS | Encounter Summary ---
Author Organization [employer] [facility] Address [address] [place] [address] 7t [place] [address] Care Team Providers Care Business Line Controller Name Role Phone Ernie Noriega MD Primary Care Provide r Encounter Details Date Type Department Care Team (Late st Contact Info) Description 10/03/2022 Orders Only [facility] [address] [place] [address] Suha Alexander, RN Social History Tobacco Use [...] 01/12/2025 3:00 PM EDT Office Visit [facility] [address] [place] [address] Ernie Noriega MD [address] [place] [address] documented as of this encounter Visit Diagnoses Not on filedocumented in this encounter Care Teams Business Line Controller Relationship Specialty Start Date End Date Ernie Noriega MD [address] [place] [address] PCP - General Internal Medicine 08/25/19 documented as of this encounter
== END 2025-01-10 11:34 | disposition home or self-care (01) ==
LOC: HO.HVS 10:44
PROVIDERS: PCP Internal Medicine; Visit Provider Surgery Vascular Surgery
DX: I83.11 Varicose veins of right lower extremity with inflammation (principal)
CPT/HCPCS: 99214

== ENCOUNTER → 2025-01-10 10:44 | Outpatient (BNVA) | payer MEDICAID, SELFPAY | PROVIDERS: PCP Internal Medicine; Visit Provider Surgery Vascular Surgery | DX: I83.11 Varicose veins of right lower extremity with inflammation (principal) | CPT/HCPCS: 99212 ==

== ENCOUNTER 2025-01-13 10:55 | Outpatient (AMB) | payer MEDICAID, SELFPAY ==
[2025-01-13 11:05] VITALS: BP 143/72; PULSE 64; O2SAT 98; BMI 28.9
--- NOTE | 2025-01-13 11:05 | MHC.OFFVIS ---
Vital Signs 01/13/25 11:05 Height 5 ft 3 in Weight 163 lb BMI 28.9 BP 143/72 H Blood Pressure Location Lt brachial Position Sitting Pulse 64 Pulse Source Pulse Oximeter Pulse Oximetry (%) 98 Oxygen Delivery Method Room Air Intake Visit Reasons: S/p Caudal NIC w/ Catheter 12/09/24 Dividing Machine Operator Helper Required: Yes Dividing Machine Operator Helper Services: Dividing Machine Operator Helper Offered & Declined Dividing Machine Operator Helper Name: Pt requested that her Information Interpreted: non-clinical & clinical Allergies No Known Allergies Allergy (Verified 01/13/25 11:07) Medication List - Last Reconciled 01/13/25 by Alyson Hernandez, THERAPY ADMINISTRATIVE ASSISTANT acetaminophen 500 mg PO Q12H PRN acetaminophen (Tylenol Extra Strength) 1,000 mg (2 x 500 mg) PO QID PRN albuterol sulfate 2.5 mg inhalation Q6-8H PRN albuterol sulfate 90 mcg/actuation 2 puffs inhalation Q4-6H PRN diclofenac potassium 50 mg PO BID diphenhydramine HCl (Banophen) 25 - 50 mg PO BEDTIME escitalopram oxalate 5 mg PO QAM fluticasone propion-salmeterol 500-50 mcg/dose (Advair Diskus) 1 ea inhalation BID fluticasone propionate 50 mcg/actuation 2 sprays intranasal BID gabapentin 300 mg PO TID hydrochlorothiazide 25 mg PO DAILY ibuprofen 600 mg PO Q6H PRN lidocaine 5% (Lidoderm) 1 - 2 patches topical Q12H PRN montelukast 10 mg PO BEDTIME multivitamin 1 tab PO DAILY naloxone 4 mg/actuation (Narcan) 4 mg intranasal Q2M PRN omega 3-bnb-lyf-fish oil 1,000 (120-180) mg (Fish Oil) 1 cap PO DAILY omeprazole 20 mg PO DAILY oxycodone 5 mg PO Q8H PRN 10 days tamsulosin 0.4 mg PO DAILY@1700 90 days valacyclovir 2,000 mg PO BID walker Folding front wheeled walker zolpidem 10 mg PO BEDTIME PRN HPI Comments Details: The patient is a 59-year-old female presenting with chronic back pain. The pain has continued despite a Caudal Epidural Steroid Injection administered on December 09, from which no relief was achieved. Initially managed with oxycodone, the patient's discomfort has persisted, necessitating further evaluation. Radiating pain affects both lower extremities and is aggravated by physical activity, movements or walking. Recent physical therapy sessions, a precondition for potential surgical consideration at [facility] due to insurance requirements, have intensified her pain. Pain is rated 10/10. The ongoing concern involves a T11 epidural lesion, previously evaluated with no immediate intervention required per patient after she was seen at [facility]. In consultation with a neurosurgeon, a follow-up is scheduled for March to discuss back surgery to address spinal stenosis related pain. Current pain management strategies, including ibuprofen, gabapentin and medical marijuana, offer minimal alleviation. Recent episodes required emergency oxycodone use, highlighting the chronic nature of the pain. She reports good pain relief with oxycodone but notes it causes her significant drowsiness. Initially, she want me to provide her short term oxycodone until back surgery. Upon discussion for opioid program entrance, patient declined opioids for its side effects and elected to continue pain management with Ibuprofen as this has been partially effective for her. - Onset and Timing: Persistent pain, no relief from Caudal epidural steroid injection. - Quality and Character: Chronic, radiating pain affecting both lower extremities. - Primary Location: Mid-back and lower back. - Radiation: From the back down both legs laterally and posteriorly with numbness and tingling. - Exacerbating Factors: Physical therapy and activity. - Alleviating Factors: Limited; minimal relief with ibuprofen, gabapentin, Tylenol and medical marijuana. - Interference: Affects mobility and performance of daily tasks due to persistent pain. - Affect: Heightened mood disturbance due to chronic pain, affecting her daily life and comfort and sleep. - Analgesia: Current use of ibuprofen, Tylenol, gabapentin and medical marijuana with inadequate pain control. Previously took oxycodone for severe episodes. - Adverse Effects: No specific side effects from recent NIC. Reports drowsiness with oxycodone. - Activities of Daily Living: Pain significantly impacts mobility; physical therapy worsens symptoms but is an insurance requirement for surgery. - Aberrant Drug-Related Behaviors: Episodic use of oxycodone when pain is unmanageable, with potential for opioid contract initiation. However, due to significant drowsiness, patient elected not to continue with opioids. Past Procedures: 12/09/24: Caudal NIC with catheter-0% pain relief PRIOR: Patient presents today for follow up to discuss recent thoracic spine MRI results. Patient reports worsening mid and low back pain with radiculopathy. She reports recent fall over 2 weeks ago when she fell on ice and reports increased back pain. We are awaiting insurance approval for Caudal NIC. Thoracic spine MRI results were discussed with patient and her Brandyn who she requested as supervisor correspondence section. We will proceed with Oncology evaluation to further evaluate T11 thoracic epidural lesion. Patient became emotionally tearful as her brother from liver cancer. She is aware lesion might represent disc protrusion and extrusion or fibrous calcified lesion. Denies any recent cough, cold, infection, fever or any significant changes in medical history since last office visit. PRIOR: Patient is a pleasant 59 years old Urdu speaking female with history of rotator cuff impingement, chronic back pain with h/o lumbar fusion L3-S1 in 2003, posterior neural foraminotomy at L2-L3 [address] Bailey, varicose veins, mild persistent asthma, chronic neuropathy, osteoarthritis, cervical radiculopathy, chronic headaches, depression, h/o bilateral TKR, chronic left shoulder pain, presents today for initial evaluation for chronic low back pain with radiculopathy. Denies any recent trauma, injury or falls. Reports history of multiple surgeries and falls. Patient reports midline low back pain with radiation into both lower lower extremities predominantly posteriorly but also experiences significant bilateral groin pain, worse on the right side with SLR testing. She reports her back pain is also radiates upward and into her left flank and partially left side of middle of abdomen. Patient was previously followed by [facility] by Dr. Clint Newberry in the past and had undergone multiple injection and incomplete SCS trial in the past which she attributes to miscommunication due to language barrier. Per referral notes, [place] [facility] [place] due to worsening low back pain with radiation to her right thigh and right leg after an thoracic spinal stimulation procedure which was aborted due to severe pain during the procedure. She was treated with gabapentin, diazepam and hydromorphine. She is willing to undergo repeat SCS trial in the near future in our office but requests epidural steroid injection to alleviate her radicular symptoms. Patient was also seen at [facility] on 08/26/24 with c/o low back pain with radiculopathy. Patient was seen by [facility] providers last month and was deemed not surgical after recent lumbar spine MRI results. Per most recent Neurosurgical evaluation, patient was discussed about an oblique lumbar interbody fusion L2-3, trans Kambin lumbar interbody fusion L1-2 and T12-L1, as well as pedicle screws at T11 to stabilize the thoracolumbar junction if her back pain caused a profound impact on her quality of life. Patient is hesitant towards additional back surgery. Pain affects her daily activities and functioning, mobility, sleep, mood, social interactions and quality of life. Patient receives Psychological counseling for chronic pain and depression through [facility]. Back pain has been resistant to physical therapy (completed 02/17/24-03/23/24), home exercise program, TENS unit, oral and topical medication and activity modifications. Denies any fever or chills, bladder or bowel dysfunction or saddle anesthesia. Reports bilateral weakness of lower extremities due to back pain, left worse than right. Oswestry Low Back Pain Disability Score=32 (severe disability) Location: Lower back pain radiates upward (more on left) and lower extremities, L>R Duration: Chronic pain, worsening for past 1-2 years Characteristics of symptom or complaint: Throbbing, shooting, stabbing, pinching, radiating, tingling, burning, sore Aggravating or associated factors: Movements, walking, standing, bending, lifting, ADLs, sleep, cold Relieving factors: Rest, heat/cold, Tylenol, NSAIDs, gabapentin, PFSH Medical History Right-sided ischial pain Tubular adenoma of colon Hematuria Dysuria Overweight Varicose vein of leg Chronic tension-type headache, not intractable Neuropathic pain Hyperlipidemia Carpal tunnel syndrome Cervical radiculopathy Depressive disorder Diverticulosis HTN (hypertension) Osteoarthritis Asthma Essential hypertension Low back pain Pre-diabetes Seasonal allergies GERD (gastroesophageal reflux disease) Post-COVID syndrome COPD (chronic obstructive pulmonary disease) Arthritis Anxiety Depression Hesitancy of micturition Moderate persistent asthma Surgical History History of carpal tunnel release Hx of eye surgery Hx of cataract extraction Hx of shoulder surgery History of carpal tunnel surgery of right wrist H/O colonoscopy History of total right knee replacement History of back surgery History of total left knee replacement (~06/2020) Family History Mother Heart disease Sister HTN (hypertension) Sister HTN (hypertension) Diabetes Maternal Grandmother Cervical cancer Social History Household Members: Spouse Housing: House Are you a primary progressive care manager to a significant other at home: No Do you presently have visiting nurse or other home services: No Alcohol intake: never Comment: in bathroom, aware of trip hazard Patient Tobacco Use Status: Former Tobacco user Tobacco use type: Cigarette Second Hand Smoke Exposure: No Substance Use Type: Marijuana Advance Directives Date on File: 12/17/21 service: No Current occupational status: unemployed Current occupation: Right Handed Gender identity: Female Review of Systems Const Details: - Musculoskeletal: Reports worsening back pain with radiation to both legs. - Neurological: Denies weakness, but recent visits indicate pain makes her feel less mobile. Denies bladder or bowel dysfunction or saddle anesthesia. All systems reviewed & are unremarkable except as noted in HPI and below Physical Exam Vital Signs: Last Vital Signs Pulse 64 01/13/25 11:05 BP 143/72 H 01/13/25 11:05 Pulse Ox 98 01/13/25 11:05 Oxygen Delivery Method Room Air 01/13/25 11:05 BMI result Body Mass Index 28.9 General: Appears afebrile. Moderate-severe distress due to back pain. Alert and oriented. Mood and affect appropriate. Pleasant. Follows and participates in conversation appropriately. Respiratory effort is unlabored. No cough. Able to transition from sit to stand unassisted. Reports moderate-severe increase in lower back pain and cramping in her toes, L>R with toe standing, looses balance with heel standing due to increased back pain. General: Yes no CVA tenderness Back/Spine/Pelvis Other: Limited lumbar ROM due to pain. Antalgic gait, no limping. Demonstrates 4/5 strength of quadriceps bilaterally as well as flexion/dorsiflexion of bilateral feet against resistance. 2+ pedal pulses bilaterally. Straight leg rise with dorsiflexion positive bilaterally. Diminished patellar and achilles reflexes bilaterally. Facet loading test positive bilaterally. Abbey sign positive bilaterally. SLR testing reproduces moderate-severe groin pain, right worse than left. Valsalva maneuver is positive. Back: no CVA tenderness Cervical Spine: cervical ROM normal, cervical muscular tenderness, pain with cervical ROM, No cervical spasm and No Cervical spine tenderness Thoracic/Lumbar Spine: thoracic and lumbar spine normal to inspection, Thoracic/lumbar spine scar(s), Lasegue's sign positive bilateral and localized, pain with thoraco-lumbar ROM, paraspinal muscle tenderness, thoraco-lumbar ROM limited, thoracic spinal tenderness (mid to lower thoracic) and lumbar spinal tenderness (L4-S1) Pelvis: buttock tenderness bilaterally and sciatic notch tenderness (right>left) bilateral Sacroiliac joints: bilaterally tender to palpation Extrem General: Yes capillary refill normal, Yes no clubbing, cyanosis or edema and Yes no calf tenderness Psych Appearance: grossly normal Mental Status: mental status grossly normal Speech and movement: Clear speech present Affect: normal affect and Sad affect present Attitude: cooperative Thought process: Normal thought process present Thought content: Normal thought content present, suicidality (none), no hallucinations and Depressive thoughts present Insight: Good insight present (Psych) Judgement: Good judgement present (Psych) Results Reviewed Results Reviewed: MR THORACIC w + wo CONTRAST 11/01/24 INDICATION: Spinal stenosis, thoracic region. Spondylosis, thoracolumbar region. TECHNIQUE: Unenhanced and enhanced multiplanar, multisequence MR imaging of the thoracic spine. Dotarem 15 mL was administered intravenously. No contrast waste documented. COMPARISON: None available. FINDINGS: Normal alignment is demonstrated. Vertebral heights are well maintained. Bone marrow signal is within normal limits, and no suspicious osseous lesion is identified. Thoracic cord demonstrates normal course, caliber, and signal characteristics. No epidural fluid collection or hematoma is identified. There is a stable anterior epidural enhancing T1 hypointense and T2 hyperintense lesion at T11 impressing upon the anterior aspect of the thecal sac and thoracic cord along with hypertrophic facet arthropathy and ligamentum flavum hypertrophy causing moderate T11 central canal stenosis. Neural foramina are patent throughout. Visualized chest and abdomen are grossly unremarkable. IMPRESSION: 1.There is a stable anterior epidural enhancing lesion at the level of T11 along with hypertrophic facet arthropathy and ligamentum flavum hypertrophy causing moderate T11 central canal stenosis. Imaging characteristics suggest either disc fragment in the epidural space versus a fibrous calcified lesion. 2.No focal disc herniation or exiting nerve root encroachment seen. MR SPINE LUMBAR w + wo CONTRAST 09/16/24 at [facility] INDICATION: Dorsalgia. Lower back pain intermittently radiating down right leg for two years. Additional History: Lumbar fusion five years ago. TECHNIQUE: Unenhanced and enhanced multiplanar, multisequence MR imaging of the lumbar spine. Dotarem 15 mL was administered intravenously. No contrast waste documented. COMPARISON: None Available. FINDINGS: Straightening of normal lumbar lordosis. Approximate 5 mm degenerative retrolisthesis of T12 on L1. Approximate 5 mm degenerative anterolisthesis of L2 on L3. Postoperative changes of L3, L4 and L5 fusion with bilateral pedicle screws L3-L4 and laminectomies at these levels. Loss of intervertebral disc space height throughout the remainder the examination with endplate Modic type II changes and facet arthrosis. Conus and cauda equina of normal appearance. The conus tip T12-L1. Question a disc protrusion and extrusion at the level of T11. This is only partially visualized on this lumbar examination. Question a moderate associated central stenosis and contribution to moderate LEFT foraminal narrowing. Examination through the T12-L1 intervertebral level revealing facet arthrosis. Posterior disc osteophyte. Approximate 5 mm degenerative retrolisthesis of T12 on L1. There is a moderate central stenosis. Bilateral lateral recess encroachment. Mild LEFT foraminal narrowing. Moderate RIGHT foraminal narrowing. Examination through the L1-L2 intervertebral level revealing facet arthrosis. Prominence of ligamentum flavum. Posterior disc osteophyte. Moderate central stenosis. Bilateral lateral recess encroachment. Mild bilateral foraminal narrowing. Examination through the L2-L3 intervertebral level revealing facet arthrosis. Prominence of the ligamentum flavum. Apparent RIGHT laminectomy. Mild central stenosis. Bilateral lateral recess encroachment. No significant foraminal narrowing. Examination through the fused L3-L4 intervertebral level without central stenosis or foraminal narrowing. Examination through the fused L4-L5 intervertebral level without central stenosis or significant foraminal narrowing. Examination through the fused L5-S1 intervertebral level without central stenosis or foraminal narrowing. IMPRESSION: Straightening of normal lumbar lordosis. Approximate 5 mm degenerative retrolisthesis of T12 on L1. Approximate 5 mm degenerative anterolisthesis of L2 on L3. Postoperative changes of L3, L4 and L5 fusion with bilateral pedicle screws L3 and L4 and laminectomies at these levels. Loss of intervertebral disc space height throughout the remainder the examination with endplate Modic type II changes and facet arthrosis. The conus tip T12-L1. Question a disc protrusion and extrusion at the level of T11. This is only partially visualized on this lumbar examination. Question a moderate associated central stenosis and contribution to moderate LEFT foraminal narrowing. Consider dedicated evaluation of the lower thoracic spine with and without the use of intravenous contrast. T12-L1 facet arthrosis. Posterior disc osteophyte. Approximate 5 mm degenerative retrolisthesis of T12 on L1. There is a moderate central stenosis. Bilateral lateral recess encroachment. Mild LEFT foraminal narrowing. Moderate RIGHT foraminal narrowing. L1-L2 facet arthrosis. Prominence of ligamentum flavum. Posterior disc osteophyte. Moderate central stenosis. Bilateral lateral recess encroachment. Mild bilateral foraminal narrowing. L2-L3 facet arthrosis. Prominence of the ligamentum flavum. Apparent RIGHT laminectomy. Mild central stenosis. No significant foraminal narrowing. Examination through the postoperative levels without central stenosis or significant foraminal narrowing. XR LUMBOSACRAL SPINE 08/26/24 CLINICAL INFORMATION: Left-sided back pain. Prior surgery. COMPARISON: Most recent lumbar spine radiographs dated 10/31/2023. TECHNIQUE: Three views of the lumbosacral spine. FINDINGS: Redemonstration of 6 nonrib-bearing lumbar-type vertebral bodies with lumbarization of the S1 vertebral body. Posterior stabilization hardware redemonstrated at L4-L5 with intervertebral disc hardware at L5-S1 and S1-S2. No evidence of hardware complication. Grade 1 retrolisthesis of L1 on L2 is unchanged. Multilevel degenerative disc disease with facet arthropathy, unchanged. No acute fracture. No new lytic or blastic osseous lesion. Surgical clips. IMPRESSION: 1. Posterior stabilization hardware at L4-L5 and L5-S1 without evidence of hardware complication. 2. Grade 1 retrolisthesis of L1 on L2 and multilevel degenerative disc disease and facet arthropathy, unchanged. Assessment & Plan Assessment & Plan (1) Lumbar spinal stenosis: Code(s): M48.061 - Spinal stenosis, lumbar region without neurogenic claudication Category: Medical (2) Chronic low back pain: Code(s): M54.50 - Low back pain, unspecified; G89.29 - Other chronic pain Category: Medical (3) Lumbar post-laminectomy syndrome: Code(s): M96.1 - Postlaminectomy syndrome, not elsewhere classified Category: Medical (4) Spondylolisthesis of thoracolumbar region: Code(s): M43.15 - Spondylolisthesis, thoracolumbar region Category: Medical (5) Arachnoid cyst of spine: Code(s): G96.198 - Other disorders of meninges, not elsewhere classified Category: Medical Plan The patient will continue physical therapy sessions as they are essential for insurance approval related to back surgery considerations at [facility]. A follow-up with the neurosurgeon is scheduled for March. We discussed short-term prescription of oxycodone for pain management while patient awaits back surgery. Upon opioid contract review, patient admitted that oxycodone and opioids in general are causing her significant drowsiness. Ibuprofen, gabapentin, Tylenol and medical marijuana usage as auxiliary pain management will continue. Refill provided for Ibuprofen on as needed basis only per patient's request. Reviewed risks associated with long-term NSAID intake. Patient is aware to call if pain worsens or if she develops any red flag symptoms to seek emergency care. Patient denies any cauda equina syndrome symptoms at this time. All questions and concerns have been answered and patient agreed with the plan. Follow up as needed. Patient was informed and verbally consented to the use of an ambient scribe for clinic note documentation during this visit. Medications: Refilled ibuprofen 600 mg PO Q6H PRN 60 tabs 0RF pain G89.29 - Other chronic pain, M48.061 - Spinal stenosis, lumbar region without neurogenic claudication, M54.50 - Low back pain, unspecified Patient Instructions: During the consultation, I reviewed the patient's pain management options, primarily focusing on ongoing physical therapy as an insurance necessity for future surgical intervention. I advised the patient on the importance of communicating symptom deterioration with the neurosurgeon if physical therapy exacerbates pain. We will monitor her response to the current regimen and consider adjustments after her upcoming neurosurgical evaluation. I discussed the urinalysis and opioid contract as prerequisites for short-term oxycodone prescription, patient declined oxycodone or opioids medications due to significant drowsiness effect. - Continue attending scheduled physical therapy sessions. - Call the neurosurgeon's office if back pain worsens due to therapy. - Report any significant changes in pain or new symptoms immediately. - Continue Ibuprofen, Tylenol, gabapentin, heat, activity modifications. Patient also utilizes medical marijuana for sleep and pain. - Follow up as needed for ongoing pain management. Coding Level of Care Code Est Pt Level 4 (13668) Complex EM visit Add On G2211 Diagnoses Lumbar spinal stenosis M48.061 Chronic low back pain M54.50; G89.29 Lumbar post-laminectomy syndrome M96.1 Spondylolisthesis of thoracolumbar region M43.15 Arachnoid cyst of spine G96.198
--- OUTSIDE RECORDS SUMMARY | 2025-01-13 12:38 | XMS_ITS | Encounter Summary ---
Author Organization [employer] Address [address] [place] [address] Care Team Providers Care Buhr Mill Operator Name Role Phone Ernie Noriega MD Primary Care Provide r Encounter Details Date Type Department Care Team (Latest Contact Info) Description 01/12/2025 Travel Social History Tobacco Use Types Packs/Day Years Used Date Smoking Tobacco: Former Cigarettes Passive Smoke Exposure: Past Smokeless Tobacco: Never Alcohol Use Standard Drinks/Week Comments Never 0 (1 standard drink = 0.6 oz pur e alcohol) Depression Answer Date Recorded Patient Health Questionnaire-9 Score 4 01/12/2025 Patient Health Questionnaire-9 Score 4 01/12/2025 Last PHQ-9: Questionnaire Data Not on file 0 01/12/2025 Housing Stability Answer Date Recorded What is [...] Date Recorded Patient Health Questionnaire-2 Score 1 01/12/2025 Internet Access Answer Date Recorded Internet Access [...] Care Team (Late st Contact Info) Description 04/13/2025 2:15 PM EDT Office Visit [facility] [address] [place] [address] Ernie Noriega MD [address] [place] [address] documented as of this encounter Visit Diagnoses Not on filedocumented in this encounter Additional Health Concerns Assessment Noted Time PHQ-9 Depression Total Score: 4 01/13/20 25 2:57 PM EDT documented as of this encounter Care Teams Buhr Mill Operator Relationship Specialty Start Date End Date Ernie Noriega MD [address] [place] [address] PCP - General Internal Medicine 08/25/19 documented as of this encounter
--- OUTSIDE RECORDS SUMMARY | 2025-01-13 12:38 | XMS_ITS | Encounter Summary ---
Author Organization [employer] Address [address] [place] [address] 7[address] [place] [address] Care Team Providers Care Icing Machine Operator Name Role Phone Ernie Noriega MD Primary Care Provide r Reason for Visit * Reason Onset Date Comments Appointment Request 01/12/2025 Encounter Details Date Type Department Care Team ([facility] Contact Info) Description 01/12/2025 Telephone [facility] [address] [place] [address] Ernie Noriega MD [address] [place] [address] Appointment Request Social History Tobacco Use Types [...] * Telephone Encounter - Agnieszka Fonseca - 01/12/2025 4:07 PM EDT Called Patient left vm, advised to call back and schedule 15min f/u with PCP for HTN beginning of April if possible. OK to schedule if Patient calls back documented in this encounter Plan of Treatment Upcoming Encounters Date Type Department Care Team (Late st Contact Info) Description 04/13/2025 2:15 PM EDT Office Visit [facility] [address] [place] [address] Ernie Noriega MD [address] [place] [address] documented as of this encounter Visit Diagnoses Not on filedocumented in this encounter Additional Health Concerns Assessment Noted Time PHQ-9 Depression Total Score: 4 01/13/20 25 2:57 PM EDT documented as of this encounter Care Teams Icing Machine Operator Relationship Specialty Start Date End Date Ernie Noriega MD [address] [place] [address] PCP - General Internal Medicine 08/25/19 documented as of this encounter
--- OUTSIDE RECORDS SUMMARY | 2025-01-13 12:38 | XMS_ITS | Encounter Summary ---
Author Organization [employer] Address [address] [place] [address] 7t [place] [address] Care Team Providers Care Public Health Sanitarian Name Role Phone Ernie Noriega MD Primary Care Provide r Encounter Details Date Type Department Care Team ([facility] st Contact Info) Description 01/12/2025 3:00 PM EDT Office Visit [facility] [address] [place] [address] Ernie Noriega MD [address] [place] [address] Varicose veins of leg with pain, right (Primary Dx); Right foot pain; Chronic midline low back pain without sciatica; Essential hypertension Social History Tobacco Use Types [...] Sign Reading Time Taken Comments Blood Pressure 138/78 01/12/2025 3:28 PM EDT Pulse 97 01/12/2025 2:57 PM EDT Temperature 36 ??C (96.8 ??F) 01/12/2025 2:57 PM EDT Respiratory Rate 17 01/12/2025 2:57 PM EDT Oxygen Saturation 98% 01/12/2025 2:57 PM EDT Inhaled Oxygen Concentration - - Weight 75 kg (165 lb 6.4 oz) 01/12/2025 2:57 PM EDT Height 160 cm (5' 3 ) 01/12/2025 2:57 PM EDT Body Mass Index 29.3 01/12/2025 2:57 PM EDT documented in this encounter Progress Notes * Ernie Ro MD - 01/12/2025 3:00 PM EDT REBEKAH Julien is a 59 y.o. female who presents for No chief complaint on file.. Pt here for a follow up Review of Systems Constitutional: Negative for fever. HENT: Negative for sore throat. Respiratory: Negative for cough and shortness of breath. Cardiovascular: Negative for chest pain. Gastrointestinal: Negative for abdominal pain. Neurological: Negative for headaches. No Known Allergies OBJECTIVE Vitals: 01/12/25 1457 01/12/25 1528 BP: (!) 144/79 138/78 BP Location: Left arm Patient Position: Sitting Pulse: 97 Resp: 17 Temp: 96.8 ??F (36 ??C) TempSrc: Temporal SpO2: 98% Weight: 165 lb 6.4 oz (75 kg) Height: 5' 3 (1.6 m) Physical [...] Assessment/Plan Problem List Items Addressed This Visit Varicose veins of leg with pain, right - Primary Painful Evaluated by Dr Adarsh Villalba, last note from 01/2025 scheduled for microablation Right foot pain Seen in the ER 12/22/2024 X-ray did not show abnormality. Dr. Gurinder Soto had placed a referral for orthopaedic specialist No visits with results within 3 Week(s) from this visit. Latest known visit with results is: Office Visit on 12/21/2024 Component Date Value Uric Acid 12/21/2024 4.6 Lyme Antibody Screen 12/21/2024 <0.90 Lyme Blot 12/21/2024 TNP White Blood Count 12/21/2024 8.1 Red Blood Count 12/21/2024 4.14 (L) Hemoglobin 12/21/2024 11.6 (L) Hematocrit 12/21/2024 37.3 Mean Corpuscular Volume 12/21/2024 90.1 Mean Corpuscular Hemoglo* 12/21/2024 28.0 Mean Corpuscular HGB Conc 12/21/2024 31.1 Red Cell Distribution Wi* 12/21/2024 13.6 Platelet Count 12/21/2024 312 Mean Platelet Volume 12/21/2024 10.2 Neutrophils Percent Auto 12/21/2024 55.2 Imm Gran Pct Auto 12/21/2024 0.4 Lymphocytes Percent Auto 12/21/2024 35.1 Monocytes Percent Auto 12/21/2024 7.3 Eosinophils Percent Auto 12/21/2024 1.4 Basophils Percent Auto 12/21/2024 0.6 NRBC Pct Auto 12/21/2024 0.0 Neutrophils Absolute Auto 12/21/2024 4.5 Imm Gran Abs Auto 12/21/2024 0.03 Lymphocytes Absolute Au* 12/21/2024 2.9 Monocytes Absolute Auto 12/21/2024 0.6 Eosinophils Absolute Auto 12/21/2024 0.1 Basophils Absolute Auto 12/21/2024 0.1 NRBC Abs Auto 12/21/2024 0.000 Prothrombin Time 12/21/2024 11.4 INTERNATIONAL NORM RATIO 12/21/2024 1.0 Partial Thromboplastin T* 12/21/2024 33.7 Recent blood work ordered by Dr. Soto was unrevealing with normal Uric Acid and Lyme titers Chronic low back pain Pt here for a f/u Hx of chronic low back pain, treated in the past at [facility] by Dr Clint Newberry. Hx of AP fusion from L4-sacrum in 2003. She received epidural injections with good results in the past. but that was no longer the case. Pt developed lumbar spinal stenosis and on 01/14/2021 underwent Posterior neural foraminotomy L2-L3byDr. Bailey. She was admitted to [facility] from 11/13/2022 until 11/20/2022 due to worsening low back pain with radiation to her right thigh and right leg after an experimental thoracic spinal stimulation procedure at the surgery center [facility] (She was referred there by [facility]). Procedure was aborted after pt experienced severe [...] offer any surgical intervention that could help,pt was interested in being evaluated at the pain clinic. Pt was evaluated at [facility] clinic: 11/08/2024 they did an MRI thoracic spine that showed: 1.There is a stable anterior epidural enhancing lesion at the level of T11 along with hypertrophic facet arthropathy and ligamentum flavum hypertrophy causing moderate T11 central canal stenosis. Imaging characteristics suggest either disc fragment in the epidural space versus a fibrous calcified lesion. 2.No focal disc herniation or exiting nerve root encroachment seen. Subsequently she was referred to [facility], seen Their assesment was:that patient hadsevere back pain likely related to degenerative changes caused by prior failed back surgeries. She has tried injections but not physical therapy. I have ordered her PT. They did not believe that her arachnoid cysts were symptomatic as she does not have myelopathyevident on exam nor any other findings that would be attributable to cyst at these levels. They ordered her an MRI of her cervical spine to be sure there is no residual stenosis. In addition they ordered her standing scoliosis films and flexion-extension lumbar spine films as well as CTs of her thoracic and lumbar spine. They are going to see her back when she is completed PT to discuss possible surgical intervention. Essential hypertension Patient with Hypertension currently controlled [...] were within normal limits. Plan: Continue current regimen, repeat BMP patient advised to adhere to a low sodium diet, encouraged about medication compliance, counseled about weight loss. Relevant Orders Lipid Panel, Standard Comprehensive Metabolic Panel documented in this encounter Miscellaneous Notes * Assessment & Plan Note - Ernie Ro MD - 01/12/2025 3:27 PM EDT Associated Problem(s): Essential hypertension Patient with Hypertension [...] were within normal limits. Plan: Continue current regimen, repeat BMP patient advised to adhere to a low sodium diet, encouraged about medication compliance, counseled about weight loss. * Assessment & Plan Note - Ernie Ro MD - 01/12/2025 3:19 PM EDT Associated Problem(s): Chronic low back pain Pt here for a f/u Hx of chronic low back pain, treated in the past at [facility] by Dr Clint Newberry. Hx of AP fusion from L4-sacrum in 2003. She received epidural injections with good results in the past. but that was no longer the case. Pt developed lumbar spinal stenosis and on 01/14/2021 underwent Posterior neural foraminotomy L2-L3byDr. Bailey. She was admitted to [facility] from 11/13/2022 until 11/20/2022 due to worsening low back pain with radiation to her right thigh and right leg after an experimental thoracic spinal stimulation procedure at the surgery center [facility] (She was referred there by [facility]). Procedure [...] offer any surgical intervention that could help,pt was interested in being evaluated at the pain clinic. Pt was evaluated at [facility]: 11/08/2024 they did an MRI thoracic spine that showed: 1.There is a stable anterior epidural enhancing lesion at the level of T11 along with hypertrophic facet arthropathy and ligamentum flavum hypertrophy causing moderate T11 central canal stenosis. Imaging characteristics suggest either disc fragment in the epidural space versus a fibrous calcified lesion. 2.No focal disc herniation or exiting nerve root encroachment seen. Subsequently she was referred to [facility], seen Their assesment was:that patient hadsevere back pain likely related to degenerative changes caused by prior failed back surgeries. She has tried injections but not physical therapy. I have ordered her PT. They did not believe that her arachnoid cysts were symptomatic as she does not have myelopathyevident on exam nor any other findings that would be attributable to cyst at these levels. They ordered her an MRI of her cervical spine to be sure there is no residual stenosis. In addition they ordered her standing scoliosis films and flexion-extension lumbar spine films as well as CTs of her thoracic and lumbar spine. They are going to see her back when she is completed PT to discuss possible surgical intervention. * Assessment & Plan Note - Ernie Ro MD - 01/12/2025 3:11 PM EDT Associated Problem(s): Right foot pain Seen in the ER 12/22/2024 X-ray did not show abnormality. Dr. Gurinder Soto had placed a referral for orthopaedic specialist No visits with results within 3 Week(s) from this visit. Latest known visit with results is: Office Visit on 12/21/2024 Component Date Value Uric Acid 12/21/2024 4.6 Lyme Antibody Screen 12/21/2024 <0.90 Lyme Blot 12/21/2024 TNP White Blood Count 12/21/2024 8.1 Red Blood Count 12/21/2024 4.14 (L) Hemoglobin 12/21/2024 11.6 (L) Hematocrit 12/21/2024 37.3 Mean Corpuscular Volume 12/21/2024 90.1 Mean Corpuscular Hemoglo* 12/21/2024 28.0 Mean Corpuscular HGB Conc 12/21/2024 31.1 Red Cell Distribution Wi* 12/21/2024 13.6 Platelet Count 12/21/2024 312 Mean Platelet Volume 12/21/2024 10.2 Neutrophils Percent Auto 12/21/2024 55.2 Imm Gran Pct Auto 12/21/2024 0.4 Lymphocytes Percent Auto 12/21/2024 35.1 Monocytes Percent Auto 12/21/2024 7.3 Eosinophils Percent Auto 12/21/2024 1.4 Basophils Percent Auto 12/21/2024 0.6 NRBC Pct Auto 12/21/2024 0.0 Neutrophils Absolute Auto 12/21/2024 4.5 Imm Gran Abs Auto 12/21/2024 0.03 Lymphocytes Absolute Au* 12/21/2024 2.9 Monocytes Absolute Auto 12/21/2024 0.6 Eosinophils Absolute Auto 12/21/2024 0.1 Basophils Absolute Auto 12/21/2024 0.1 NRBC Abs Auto 12/21/2024 0.000 Prothrombin Time 12/21/2024 11.4 INTERNATIONAL NORM RATIO 12/21/2024 1.0 Partial Thromboplastin T* 12/21/2024 33.7 Recent blood work ordered by Dr. Soto was unrevealing with normal Uric Acid and Lyme titers * Assessment & Plan Note - Ernie Ro MD - 01/12/2025 3:09 PM EDT Associated Problem(s): Varicose veins of leg with pain, right Painful Evaluated by Dr Adarsh Villalba, last note from 01/2025 scheduled for microablation documented in this encounter Plan of Treatment Upcoming Encounters Date Type Department Care Team (Late st Contact Info) Description 04/13/2025 2:15 PM EDT Office Visit [facility] [address] [place], [place] [phone] Ernie Noriega MD [address] [place] [address] Scheduled Orders Name Type Priority Associated Diagnoses Orde r Schedule Lipid Panel, Standard Lab Routine Essential hypertension Ordered: 01/12/2025 Comprehensive Metabolic Panel Lab Routine Essential hypertension Ordered: 01/12/2025 documented as of this encounter Visit Diagnoses Diagnosis Varicose veins of leg with pain, right- Primary Right foot pain Pain in soft tissues of limb Chronic midline low back pain without sciatica Essential hypertension Unspecified essential hypertension documented in this encounter Additional Health Concerns Assessment Noted Time PHQ-9 Depression Total Score: 4 01/13/20 25 2:57 PM EDT documented as of this encounter Care Teams Public Health Sanitarian Relationship Specialty Start Date End Date Ernie Noriega MD [address] [place] [phone] PCP - General Internal Medicine 08/25/19 documented as of this encounter
--- OUTSIDE RECORDS SUMMARY | 2025-01-13 12:39 | XMS_ITS | Encounter Summary ---
Author Organization [employer] [facility] Address [address] [place] [address] 7t [place] [address] Care Team Providers Care City Carrier Name Role Phone Ernie Noriega MD Primary Care Provide r Encounter Details Date Type Department Care Team (Late st Contact Info) Description 04/13/2023 Orders Only [facility] [address] [place] [address] [phone] Sugar Mitchell MD [address] [place] [address] [phone] Neuropathic pain of right lower extremity (Primary [...] Description 04/13/2025 2:15 PM EDT Office Visit [facility] [address] [place] [phone] Ernie Noriega MD [address] [place], [place] [phone] documented as of this encounter Procedures Procedure Name Priority Date/Time Associated Diagnosis Comments BASIC METABOLIC PANEL Routine 05/13/2023 8:40 AM EDT Neuropathic pain of right lower extremity documented in this encounter Results * (ABNORMAL) Basic Metabolic Panel (05/13/2023 8:40 AM EDT) Sodium 141 135 - 145 mmol/L [facility] Potassium 3.5 3.3 - 5.1 mmol/L [facility] Chloride 103 96 - 108 mmol/L [facility] Carbon Dioxide 23 22 - 29 mmol/L [facility] Anion Gap 19 12 - 20 [facility] Urea Nitrogen (BUN) 15 9 - 16 mg/dL [facility] Creatinine, Serum 0.78 0.5 - 1.4 mg/dL [facility] Estimated Glomerular Filt Rate >60 [facility] Comment:NOTE: For -Am erican individuals, multiply the result by 1.210.Chronic Kidney Disease: Estimated GFR < 60 mL/min/1.44i3Onsovf Kidney Disease: Estimated GFR < 15 mL/min/1.73m2 Glucose 151(H) 60 - 115 mg/dL [facility] Calcium 9.3 8.4 - 10.2 mg/dL [facility] Blood Venous blood specimen / Unknown 05/13/2023 8:40 AM EDT 05/13/2023 11:14 AM EDT us Sugar Mitchell MD LAB BLOOD ORDERABLES Final Resul t [facility] [address] [place] [address] [phone] documented in this encounter Visit Diagnoses Diagnosis Neuropathic pain of right lower extremity- Primary documented in this encounter Additional Health Concerns Assessment Noted Time PHQ-9 Depression Total Score: 0 12/02/19 23 2:38 PM EST documented as of this encounter Care Teams City Carrier Relationship Specialty Start Date End Date Ernie Noriega MD [address] [place] [address] PCP - General Internal Medicine 08/25/19 documented as of this encounter
--- OUTSIDE RECORDS SUMMARY | 2025-01-13 12:39 | XMS_ITS | Encounter Summary ---
Author Organization [employer] Address [address] [place] [address] 7t [place] [address] Care Team Providers Care Developer Prover Mechanical Name Role Phone Ernie Noriega MD Primary Care Provide r Reason for Visit * Reason Onset Date Comments Med Refill 11/01/2024 Encounter Details Date Type Department Care Team ([facility] st Contact Info) Description 11/01/2024 Refill [facility] [address] [place] [address] Sugar Mitchell MD [address] [place] [address] Seasonal allergies Social History Tobacco Use Types [...] Description 04/13/2025 2:15 PM EDT Office Visit [facility] [address] [place] [address] Ernie Noriega MD [address] [place] [address] documented as of this encounter Visit Diagnoses Diagnosis Seasonal allergies Allergic rhinitis, cause unspecified documented in this encounter Additional Health Concerns Assessment Noted Time PHQ-9 Depression Total Score: 2 01/21/20 24 1:25 PM EDT documented as of this encounter Care Teams Developer Prover Mechanical Relationship Specialty Start Date End Date Ernie Noriega MD [address] [place] [address] PCP - General Internal Medicine 08/25/19 documented as of this encounter
--- OUTSIDE RECORDS SUMMARY | 2025-01-13 12:39 | XMS_ITS | Referral Summary ---
Author Organization [facility] Address [address] [place] [address] Care Team Providers Care Ward Clerk Name Role Phone Ernie Merritt Primary Care Provider + Encounters Date Type Department Care Team Description 12/14/2024 9:00 AM EST Office Visit [facility] [address] [place] [phone] Christopher Peres MD Chronic bilateral low back pain with bilateral sciatica (Primary Dx); H/O cervical spine surgery 12/13/2024 Telephone [facility] [address] [place] [address] Christopher Peres MD 12/08/2024 Telephone [facility] [address] [place] [phone] Christopher Peres MD 11/01/2024 Orders Only [facility] - External Imaging [address] [place] [phone] Radiology, External from Last 3 Months Allergies [...] propionate (FLONASE) 50 mcg/actuation nasal spray SMART[employer] Warrior(s) Both Nares Twice Daily 3 Active tamsulosin [...] Info) Description 03/14/2025 3:00 PM EDT Follow-Up [facility] [address] [place] [address] Chirstopher Peres MD [address] [place], [place] [phone] Procedures * Due to [place] [employer] law, this organization might not be sharing [...] Last 3 Months Results * Due to [place] [employer] law, this organization might not be sharing negative HIV tests. * MRI Cervical Spine WO Contrast (12/21/2024 7:55 AM EDT) Anatomical Region Laterality Modality Spine, C-spine Magnetic Resonan ce 12/21/2024 7:30 AM EDT Narrative 12/22/2024 2:31 PM EDT [facility] Accession Number: [id number] Patient Name: Miguelina Julien Date of : 1965 Date of Exam: 12-21-2024 Referring Physician: Christopher Peres ?[facility] ?[address] [place] [address] ?[place], [place] [address] Exam: MR Cervical Spine (C-) CPT 51150 Room Description: [facility] 1.5 MR Cervical Spine (C-) CPT 08896 INDICATION: previous C spine surgery, appears tight on MRI T spine ibm websphere portal developer ?? TECHNIQUE: Multiplanar, multisequence MRI of the [...] MD Procedure Note Provider, Porsche - 12/22/2024 [facility] Accession Number: [id number] Patient Name: Miguelina Julien Date of : 1965 Date of Exam: 12-21-2024 Referring Physician: Christopher Peres [place] [id number] Exam: MR Cervical Spine (C-) CPT 65765 Room Description: [facility] 1.5 MR Cervical Spine (C-) CPT 45559 INDICATION: previous C spine surgery, appears tight on MRI T spine ibm websphere portal developer TECHNIQUE: Multiplanar, multisequence MRI of the cervical [...] By: Priti Mendez MD Christopher Peres MD [facility] MRI PROCEDURES Final Re sult * MRI [...] obtain the completed interpretation. ? Workstation ID: [id number] Narrative 12/14/2024 5:30 PM EST COMPARISON: There are no prior studies available for comparison at this time. Resulting Agency Comment [id number] Procedure Note Stone Reid MD - 12/14/2024 [...] possible to obtain thecompleted interpretation. Workstation ID: [id number] us Christopher Peres MD IMG XR PROCEDURES [...] obtain the completed interpretation. ? Workstation ID: [id number] Narrative 12/14/2024 5:30 PM EST COMPARISON: There are no prior studies available for comparison at this time. Resulting Agency Comment [id number] Procedure Note Stone Reid MD - 12/14/2024 [...] possible to obtain thecompleted interpretation. Workstation ID: [id number] us Christopher Peres MD IMG XR PROCEDURES Final Res ult * MRI Thoracic and Lumbar Spine, Outside Result (11/01/2024) Anatomical Region Laterality Modality Other 11/01/2024 us Onbase Scan Carol AMB EXTERNAL RESULT PROCEDURE S Final Result from Last 3 Mon[place] [id number] Care Teams Ward Clerk Relationship Specialty Start Date End Date Ernie Merritt [address] [place] [phone] PCP - General Internal Medicine 11/29/24
--- OUTSIDE RECORDS SUMMARY | 2025-01-13 12:39 | XMS_ITS | Encounter Summary ---
Author Organization [employer] Address [address] [place] [address] [address] [place] [address] Care Team Providers Care Boy'S Adviser Name Role Phone Ernie Noriega MD Primary Care Provide r Reason for Visit * Reason Onset Date Comments Med Refill 01/10/2025 Encounter Details Date Type Department Care Team ([facility] st Contact Info) Description 01/10/2025 Refill [facility] MED[facility]INE [address] [place] [address] Ernie Noriega MD [address] [place] [address] Primary osteoarthritis of knee, unspecified laterality Social [...] Description 04/13/2025 2:15 PM EDT Office Visit [facility] [address] [place] [address] Ernie Noriega MD [address] [place] [address] documented as of this encounter Visit Diagnoses Diagnosis Primary osteoarthritis of knee, unspecified laterality documented in this encounter Additional Health Concerns Assessment Noted Time PHQ-9 Depression Total Score: 2 01/21/20 24 1:25 PM EDT documented as of this encounter Care Teams Boy'S Adviser Relationship Specialty Start Date End Date Ernie Noriega MD [address] [place] [phone] PCP - General Internal Medicine 08/25/19 documented as of this encounter
--- OUTSIDE RECORDS SUMMARY | 2025-01-13 12:39 | XMS_ITS | Encounter Summary ---
Author Organization [employer] Address [address] [place] [address] [address]t [place] [address] Care Team Providers Care Ordinary Seaman Name Role Phone Ernie Noriega MD Primary Care Provide r Reason for Visit * Reason Onset Date Comments Med Refill 10/27/2023 Encounter Details Date Type Department Care Team ([facility] st Contact Info) Description 10/27/2023 Refill [facility] [address] [place] [address] Perlita Woody MD [address] [place] [address] Primary hypertension Social History Tobacco Use Types [...] 2:15 PM EDT Office Visit [facility] [address] [place] [address] Ernie Noriega MD [address] [place] [address] documented as of this encounter Visit Diagnoses Diagnosis Primary hypertension Unspecified essential hypertension documented in this encounter Additional Health Concerns Assessment Noted Time PHQ-9 Depression Total Score: 0 12/02/19 23 2:38 PM EST documented as of this encounter Care Teams Ordinary Seaman Relationship Specialty Start Date End Date Ernie Noriega MD [address] [place] [phone] PCP - General Internal Medicine 08/25/19 documented as of this encounter
--- OUTSIDE RECORDS SUMMARY | 2025-01-13 12:39 | XMS_ITS | Encounter Summary ---
Author Organization [employer] Address [address] [place] [address] 7t [place] [address] Care Team Providers Care Field Evidence Technician Name Role Phone Ernie Noriega MD Primary Care Provide r Reason for Visit * Reason Onset Date Comments Med Refill 04/16/2024 Encounter Details Date Type Department Care Team ([facility] st Contact Info) Description 04/16/2024 Refill [facility] [address] [place] [address] Ernie Noriega MD 230 [place] [address] Essential hypertension Social History Tobacco Use Types [...] Description 04/13/2025 2:15 PM EDT Office Visit [facility] [address] [place] [address] Ernie Noriega MD 230 [place] [address] documented as of this encounter Visit Diagnoses Diagnosis Essential hypertension Unspecified essential hypertension documented in this encounter Additional Health Concerns Assessment Noted Time PHQ-9 Depression Total Score: 2 01/21/20 24 1:25 PM EDT documented as of this encounter Care Teams Field Evidence Technician Relationship Specialty Start Date End Date Ernie Noriega MD 230 [place] [address] PCP - General Internal Medicine 08/25/19 documented as of this encounter
--- OUTSIDE RECORDS SUMMARY | 2025-01-13 12:39 | XMS_ITS | Clinical Summary ---
Author Organization 175 [facility] Address [address] [place] [address] Phone Care Team Providers Care Press Operator Meat Name Role Phone Ernie Merritt MD Primary [...] 11:00 AM EST Office Visit Orthopedic Surgery [facility] 175 [facility] [address] [place] [phone] Nicolasa Yu PA S/P trigger finger release (Primary Dx) 12/07/2024 1:30 PM EST - 12/07/2024 3:00 PM EST Surgery [facility] OR [address] [place] [phone] Trisat David MD LEFT A1 JOAO/TRIGGER FINGER RELEASE INDEX FINGER [16612 (CPT??)] 12/07/2024 12:30 PM EST Anesthesia Event [facility] OR [address] [place] [phone] Irvin Fields MD Decandio, Laura, CRNA 12/07/2024 11:51 AM EST - 12/07/2024 2:43 PM EST Hospital Encounter [facility] OR [address] [place] [phone] Trista David MD Discharge Disposition: Home or Self Care 11/23/2024 11:00 AM EST Office Visit Orthopedic [facility] 160 175 [facility] [address] [place] [phone] Leroy Lees MD Rotator cuff arthropathy, left (Primary Dx) 11/22/2024 10:45 AM EST Consult Orthopedic Surgery [facility] 175 [facility] [address] [place] [phone] Trista David MD Acquired trigger finger of left index finger (Primary Dx) 11/04/2024 Telephone Orthopedic Surgery [facility] [address] [phone] Eulalia Velez from Last 3 Months Surgical [...] [employer] of Health Screening 09/21/2022 RSV Immunization Adult Patients (1 - Risk 60-74 years 1-dose series) [...] Procedure Name Priority Date/Time Associated Diagnosis Comments MS INCISION TENDON SHEATH 12/07/2024 12:32 PM EST Trigger finger, unspecified finger Case Notes PA ASSIST MS ARTHROCENTESIS/ PIRATION/INJECTIO N MAJOR JOINT/BURSA W/O U/S GUIDANCE Routine 11/23/2024 11:00 AM EST Rotator cuff arthropathy, left from Last 3 Months Results * MS ARTHROCENTESIS/ASPIRATION/INJECTION MAJOR JOINT/BURSA W/O U/S GUIDANCE (11/23/2024 [...] currently active code status orders. Care Teams Press Operator Meat Relationship Specialty Start Date End Date Ernie Merritt MD [address] [place] [address] [place] [phone] PCP - General Internal Medicine 05/20/21
--- OUTSIDE RECORDS SUMMARY | 2025-01-13 12:39 | XMS_ITS | Encounter Summary ---
Author Organization [employer] Address [address] [place] [address] 7t [place] [address] Care Team Providers Care Online Publisher Name Role Phone Ernie Noriega MD Primary Care Provide r Reason for Visit * Reason Onset Date Comments Med Refill 08/13/2024 Encounter Details Date Type Department Care Team ([facility] st Contact Info) Description 08/13/2024 Refill [facility] 230 [place] [address] Ernie Noriega MD 230 [place] [address] Seasonal allergies Social History Tobacco Use Types [...] PM EDT Office Visit [facility] [address] [place] [address] Ernie Noriega MD [address] [place] [address] documented as of this encounter Visit Diagnoses Diagnosis Seasonal allergies Allergic rhinitis, cause unspecified documented in this encounter Additional Health Concerns Assessment Noted Time PHQ-9 Depression Total Score: 2 01/21/20 24 1:25 PM EDT documented as of this encounter Care Teams Online Publisher Relationship Specialty Start Date End Date Ernie Noriega MD [address] [place] [address] PCP - General Internal Medicine 08/25/19 documented as of this encounter
--- OUTSIDE RECORDS SUMMARY | 2025-01-13 12:39 | XMS_ITS | Encounter Summary ---
Author Organization [employer] Address [address] [place] [address] 7t [place] [address] Care Team Providers Care Automatic Embroidery Machine Tender Name Role Phone Ernie Noriega MD Primary Care Provide r Reason for Visit * Reason Comments Med Refill Encounter Details Date Type Department Care Team ([facility] st Contact Info) Description 01/09/2025 Refill [facility] [address] [place] [address] Ofelia Melgar MD 230 [place] [address] Social History Tobacco Use Types Packs/Day Years [...] Description 04/13/2025 2:15 PM EDT Office Visit [facility] [address] [place] [address] Ernie Noriega MD 230 [place] [address] documented as of this encounter Visit Diagnoses Not on filedocumented in this encounter Additional Health Concerns Assessment Noted Time PHQ-9 Depression Total Score: 2 01/21/20 24 1:25 PM EDT documented as of this encounter Care Teams Automatic Embroidery Machine Tender Relationship Specialty Start Date End Date Ernie Noriega MD [address] [place] [address] PCP - General Internal Medicine 08/25/19 documented as of this encounter
--- OUTSIDE RECORDS SUMMARY | 2025-01-13 12:39 | XMS_ITS | Encounter Summary ---
Author Organization [employer] Address [address] [place] [address] 7t [place] [address] Care Team Providers Care Court Collections Officer Name Role Phone Ernie Noriega MD Primary Care Provide r Reason for Visit * Reason Onset Date Comments Med Refill 03/15/2024 Encounter Details Date Type Department Care Team ([facility] st Contact Info) Description 03/15/2024 Refill [facility] 230 [place] [address] Ofelia Melgar MD [address] [place] [address] Chronic midline low back pain without sciatica; [...] Description 04/13/2025 2:15 PM EDT Office Visit [facility] [address] [place] [address] Ernie Noriega MD [address] [place] [address] documented as of this encounter Visit Diagnoses Diagnosis Chronic midline low back pain without sciatica Cervical radiculopathy Brachial neuritis or radiculitis nos documented in this encounter Additional Health Concerns Assessment Noted Time PHQ-9 Depression Total Score: 2 01/21/20 24 1:25 PM EDT documented as of this encounter Care Teams Court Collections Officer Relationship Specialty Start Date End Date Ernie Noriega MD [address] [place] [address] PCP - General Internal Medicine 08/25/19 documented as of this encounter
--- OUTSIDE RECORDS SUMMARY | 2025-01-13 12:39 | XMS_ITS | Encounter Summary ---
Author Organization [employer] Address [address] [place] [address] 7 [place] [address] Care Team Providers Care Wall Covering Contractor Name Role Phone Ernie Noriega MD Primary Care Provide r Reason for Visit * Reason Onset Date Comments Med Refill 10/25/2023 Encounter Details Date Type Department Care Team ([facility] st Contact Info) Description 10/25/2023 Refill [facility] MED[facility]INE 230 [place] [address] Ernie Noriega MD [address] [place] [address] Social History Tobacco Use Types Packs/Day Years [...] Description 04/13/2025 2:15 PM EDT Office Visit [facility] MED[facility]INE 230 [place] [address] Ernie Noriega MD [address] [place] [address] documented as of this encounter Visit Diagnoses Not on filedocumented in this encounter Additional Health Concerns Assessment Noted Time PHQ-9 Depression Total Score: 0 12/02/19 23 2:38 PM EST documented as of this encounter Care Teams Wall Covering Contractor Relationship Specialty Start Date End Date Ernie Noriega MD [address] [place] [address] PCP - General Internal Medicine 08/25/19 documented as of this encounter
--- OUTSIDE RECORDS SUMMARY | 2025-01-13 12:39 | XMS_ITS | Encounter Summary ---
Author Organization [employer] Address [address] [place] [address] 7 [place] [address] Care Team Providers Care Shake Backboard Notcher Name Role Phone Ernie Noriega MD Primary Care Provide r Reason for Visit * Reason Onset Date Comments Med Refill 10/17/2024 Encounter Details Date Type Department Care Team ([facility] st Contact Info) Description 10/17/2024 Refill [facility] 230 [place] [address] Ernie Noriega MD 230 [place] [address] Primary osteoarthritis of knee, unspecified laterality Social [...] Description 04/13/2025 2:15 PM EDT Office Visit [facility] [address] [place] [address] Ernie Noriega MD 230 [place] [address] documented as of this encounter Visit Diagnoses Diagnosis Primary osteoarthritis of knee, unspecified laterality documented in this encounter Additional Health Concerns Assessment Noted Time PHQ-9 Depression Total Score: 2 01/21/20 24 1:25 PM EDT documented as of this encounter Care Teams Shake Backboard Notcher Relationship Specialty Start Date End Date Ernie Noriega MD [address] [place] [address] PCP - General Internal Medicine 08/25/19 documented as of this encounter
--- OUTSIDE RECORDS SUMMARY | 2025-01-13 12:39 | XMS_ITS | Encounter Summary ---
Author Organization [employer] [facility] Address [address] [place] [address] 7 [place] [address] Care Team Providers Care Salesforce Trainer Name Role Phone Ernie Noriega MD Primary Care Provide r Reason for Visit * Reason Onset Date Comments Appointment Request 02/17/2023 Encounter Details Date Type Department Care Team ([facility] st Contact Info) Description 02/17/2023 Telephone [facility] 230 [place] [address] Ernie Noriega MD 230 [place] [address] Appointment Request Social History Tobacco Use Types [...] a colonoscopy due to advise by her breast worker in [facility] hospital Please contact pt AT [phone] Chinese Speaker documented in this encounter Plan of Treatment Upcoming Encounters Date Type Department Care Team (Late st Contact Info) Description 04/13/2025 2:15 PM EDT Office Visit [facility] 230 [place] [address] Ernie Noriega MD [address] [place] [address] documented as of this encounter Visit Diagnoses Not on filedocumented in this encounter Additional Health Concerns Assessment Noted Time PHQ-9 Depression Total Score: 0 12/02/19 23 2:38 PM EST documented as of this encounter Care Teams Salesforce Trainer Relationship Specialty Start Date End Date Ernie Noriega MD 230 [place], [place] [phone] PCP - General Internal Medicine 08/25/19 documented as of this encounter
--- OUTSIDE RECORDS SUMMARY | 2025-01-13 12:39 | XMS_ITS | Encounter Summary ---
Author Organization [employer] Address [address] [place] [address] 7t [place] [address] Care Team Providers Care Power Transformer Assembler Name Role Phone Ernie Noriega MD Primary Care Provide r Reason for Visit * Reason Onset Date Comments Med Refill 08/12/2024 Encounter Details Date Type Department Care Team ([facility] st Contact Info) Description 08/12/2024 Refill [facility] MED[facility]INE 230 [place] [address] Ilsa Robison, ANP 230 [place] [address] Primary osteoarthritis of knee, unspecified laterality Social [...] Description 04/13/2025 2:15 PM EDT Office Visit [facility] MEDICINE [address] [place] [address] Ernie Noriega MD [address] [place] [address] documented as of this encounter Visit Diagnoses Diagnosis Primary osteoarthritis of knee, unspecified laterality documented in this encounter Additional Health Concerns Assessment Noted Time PHQ-9 Depression Total Score: 2 01/21/20 24 1:25 PM EDT documented as of this encounter Care Teams Power Transformer Assembler Relationship Specialty Start Date End Date Ernie Noriega MD [address] [place] [address] PCP - General Internal Medicine 08/25/19 documented as of this encounter
--- OUTSIDE RECORDS SUMMARY | 2025-01-13 12:39 | XMS_ITS | Encounter Summary ---
Author Organization [employer] Address [address] [place] [address] 7t [place] [address] Care Team Providers Care Clinical Counselor Name Role Phone Ernie Noriega MD Primary Care Provide r Reason for Visit * Reason Onset Date Comments Med Refill 06/25/2024 Encounter Details Date Type Department Care Team ([facility] st Contact Info) Description 06/25/2024 Refill [facility] MEDICINE [address] [place] [address] Ernie Noriega MD [address] [place] [address] Chronic midline low back pain without sciatica; [...] Description 04/13/2025 2:15 PM EDT Office Visit [facility] [address] [place] [address] Ernie Noriega MD [address] [place] [address] documented as of this encounter Visit Diagnoses Diagnosis Chronic midline low back pain without sciatica Cervical radiculopathy Brachial neuritis or radiculitis nos documented in this encounter Additional Health Concerns Assessment Noted Time PHQ-9 Depression Total Score: 2 01/21/20 24 1:25 PM EDT documented as of this encounter Care Teams Clinical Counselor Relationship Specialty Start Date End Date Ernie Noriega MD [address] [place] [address] PCP - General Internal Medicine 08/25/19 documented as of this encounter
--- OUTSIDE RECORDS SUMMARY | 2025-01-13 12:39 | XMS_ITS | Encounter Summary ---
Author Organization [employer] Address [address] [place] [address] 7t [place] [address] Care Team Providers Care Airfield Engineer Officer Name Role Phone Ernie Noriega MD Primary Care Provide r Reason for Visit * Reason Onset Date Comments Med Refill 04/24/2024 Encounter Details Date Type Department Care Team ([facility] st Contact Info) Description 04/24/2024 Refill [facility]INE 230 [place] [address] Ernie Noriega MD [address] [place] [address] Essential hypertension Social History Tobacco Use Types [...] Description 04/13/2025 2:15 PM EDT Office Visit [facility] 230 [place] [address] Ernie Noriega MD 230 [place] [address] documented as of this encounter Visit Diagnoses Diagnosis Essential hypertension Unspecified essential hypertension documented in this encounter Additional Health Concerns Assessment Noted Time PHQ-9 Depression Total Score: 2 01/21/20 24 1:25 PM EDT documented as of this encounter Care Teams Airfield Engineer Officer Relationship Specialty Start Date End Date Ernie Noriega MD [address] [place] [address] PCP - General Internal Medicine 08/25/19 documented as of this encounter
--- OUTSIDE RECORDS SUMMARY | 2025-01-13 12:39 | XMS_ITS | Encounter Summary ---
Author Organization [employer] Address [address] [place] [address] 7t [place] [address] Care Team Providers Care Grid Casting Machine Operator Helper Name Role Phone Ernie Noriega MD Primary Care Provide r Reason for Visit * Reason Comments Med Refill Encounter Details Date Type Department Care Team ([facility] st Contact Info) Description 07/28/2024 Refill [facility] MEDICINE 230 [place], [place] [phone] Ernie Noriega MD 230 [place] [address] Primary osteoarthritis of knee, unspecified laterality Social [...] Description 04/13/2025 2:15 PM EDT Office Visit [facility] [address] [place] [address] Ernie Noriega MD [address] [place] [address] documented as of this encounter Visit Diagnoses Diagnosis Primary osteoarthritis of knee, unspecified laterality documented in this encounter Additional Health Concerns Assessment Noted Time PHQ-9 Depression Total Score: 2 01/21/20 24 1:25 PM EDT documented as of this encounter Care Teams Grid Casting Machine Operator Helper Relationship Specialty Start Date End Date Ernie Noriega MD [address] [place] [address] PCP - General Internal Medicine 08/25/19 documented as of this encounter
--- OUTSIDE RECORDS SUMMARY | 2025-01-13 12:39 | XMS_ITS | Clinical Summary ---
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); H/O cervical spine surgery 12/13/2024 Telephone [facility] [address] [place] [address] Christopher Peres MD 12/08/2024 Telephone [facility] [address] [place] [address] Christopher Peres MD 11/01/2024 Orders Only [facility] - External Imaging [address] [place] [address] Radiology, External from Last 3 Months Social [...] Info) Description 03/14/2025 3:00 PM EDT Follow-Up [facility] [address] [place] [address] Christopher Peres MD [address] [place], [place] [phone] Health Maintenance Due Date Last Done Comments [...] complete this topic Procedures * Due to [place] [employer] law, this organization might not be sharing [...] Months Results * Due to [place] [employer] law, this organization might not be sharing negative HIV tests. * MRI Cervical Spine WO Contrast (12/21/2024 7:55 AM EDT) Anatomical Region Laterality Modality Spine, C-spine Magnetic Resonan ce 12/21/2024 7:30 AM EDT Narrative 12/22/2024 2:31 PM EDT [facility] Accession Number: [id number] Patient Name: Miguelina Julien Date of : 1965 Date of Exam: 12-21-2024 Referring Physician: Christopher Peres ?[facility] ?[address] [place] [address] ?[place] [address] Exam: MR Cervical Spine (C-) CPT 58339 Room Description: [facility] 1.5 MR Cervical Spine (C-) CPT 13209 INDICATION: previous C spine surgery, appears tight on MRI T spine windows migration technician ?? TECHNIQUE: Multiplanar, multisequence MRI of the [...] MD Procedure Note Provider, Porsche - 12/22/2024 [facility] Accession Number: [id number] Patient Name: Miguelina Julien Date of : 1965 Date of Exam: 12-21-2024 Referring Physician: Christopher Peres [place] [address] Exam: MR Cervical Spine (C-) CPT 95255 Room Description: [facility] 1.5 MR Cervical Spine (C-) CPT 75027 INDICATION: previous C spine surgery, appears tight on MRI T spine windows migration technician TECHNIQUE: Multiplanar, multisequence MRI of the cervical [...] obtain the completed interpretation. ? Workstation ID: [id number] Narrative 12/14/2024 5:30 PM EST COMPARISON: There are no prior studies available for comparison at this time. Resulting Agency Comment [id number] Procedure Note Stone Reid MD - 12/14/2024 [...] possible to obtain thecompleted interpretation. Workstation ID: [id number] us Christopher Peres MD IMG XR PROCEDURES [...] obtain the completed interpretation. ? Workstation ID: [id number] Narrative 12/14/2024 5:30 PM EST COMPARISON: There are no prior studies available for comparison at this time. Resulting Agency Comment [id number] Procedure Note Stone Reid MD - 12/14/2024 [...] possible to obtain thecompleted interpretation. Workstation ID: [id number] us Christopher Peres MD IMG XR PROCEDURES Final Res ult * MRI Thoracic and Lumbar Spine, Outside Result (11/01/2024) Anatomical Region Laterality Modality Other 11/01/2024 us Onbase Scan Carol AMB EXTERNAL RESULT PROCEDURE S Final Result from Last [address] [place], [place] [address]HEALTH [place] [id number] [place] Care Teams Etl Informatica Developer Relationship Specialty Start Date End Date Ernie Merritt [address] [place] [address] PCP - General Internal Medicine 11/29/24
--- OUTSIDE RECORDS SUMMARY | 2025-01-13 12:39 | XMS_ITS | Encounter Summary ---
Author Organization [employer] Address [address] [place] [address] 7t [place] [address] Care Team Providers Care Behavioral Health Director Name Role Phone Ernie Noriega MD Primary Care Provide r Reason for Visit * Reason Onset Date Comments Med Refill 10/25/2024 Encounter Details Date Type Department Care Team ([facility] st Contact Info) Description 10/25/2024 Refill [facility] MEDICINE [address] [place] [address] Ernie Noriega MD 230 [place] [address] Chronic midline low back pain without sciatica [...] Description 04/13/2025 2:15 PM EDT Office Visit [facility] [address] [place] [address] Ernie Noriega MD [address] [place] [address] documented as of this encounter Visit Diagnoses Diagnosis Chronic midline low back pain without sciatica documented in this encounter Additional Health Concerns Assessment Noted Time PHQ-9 Depression Total Score: 2 01/21/20 24 1:25 PM EDT documented as of this encounter Care Teams Behavioral Health Director Relationship Specialty Start Date End Date Ernie Noriega MD [address] [place] [address] PCP - General Internal Medicine 08/25/19 documented as of this encounter
--- OUTSIDE RECORDS SUMMARY | 2025-01-13 12:39 | XMS_ITS | Encounter Summary ---
Author Organization [employer] Address [address] [place] [address] 7t [place] [address] Care Team Providers Care Wood Shingle Roofer Name Role Phone Ernie Noriega MD Primary Care Provide r Reason for Visit * Reason Onset Date Comments Med Refill 01/26/2024 Encounter Details Date Type Department Care Team ([facility] st Contact Info) Description 01/26/2024 Refill [facility] [address] [place] [address] Ilsa Robison, ANP [address] [place] [address] Chronic midline low back pain without sciatica; [...] Description 04/13/2025 2:15 PM EDT Office Visit [facility] [address] [place] [address] Ernie Noriega MD [address] [place] [address] documented as of this encounter Visit Diagnoses Diagnosis Chronic midline low back pain without sciatica Cervical radiculopathy Brachial neuritis or radiculitis nos documented in this encounter Additional Health Concerns Assessment Noted Time PHQ-9 Depression Total Score: 2 01/21/20 24 1:25 PM EDT documented as of this encounter Care Teams Wood Shingle Roofer Relationship Specialty Start Date End Date Ernie Noriega MD [address] [place] [address] PCP - General Internal Medicine 08/25/19 documented as of this encounter
--- OUTSIDE RECORDS SUMMARY | 2025-01-13 12:39 | XMS_ITS | Encounter Summary ---
Author Organization [employer] Address [address] [place] [address] 7t [place] [address] Care Team Providers Care Community Dietitian Name Role Phone Ernie Noriega MD Primary Care Provide r Reason for Visit * Reason Onset Date Comments Med Refill 01/10/2025 Encounter Details Date Type Department Care Team ([facility] st Contact Info) Description 01/10/2025 Refill [facility] [address] [place] [address] Ernie Noriega MD [address] [place] [address] Chronic midline low back pain without sciatica [...] Description 04/13/2025 2:15 PM EDT Office Visit [facility] [address] [place] [address] Ernie Noriega MD [address] [place] [address] documented as of this encounter Visit Diagnoses Diagnosis Chronic midline low back pain without sciatica documented in this encounter Additional Health Concerns Assessment Noted Time PHQ-9 Depression Total Score: 2 01/21/20 24 1:25 PM EDT documented as of this encounter Care Teams Community Dietitian Relationship Specialty Start Date End Date Ernie Noriega MD [address] [place] [phone] PCP - General Internal Medicine 08/25/19 documented as of this encounter
--- OUTSIDE RECORDS SUMMARY | 2025-01-13 12:39 | XMS_ITS | Encounter Summary ---
Author Organization [employer] Address [address] [place] [address] 7t [place] [address] Care Team Providers Care Product Applications Engineer Name Role Phone Ernie Noriega MD Primary Care Provide r Reason for Visit * Reason Onset Date Comments Med Refill 10/27/2023 Encounter Details Date Type Department Care Team ([facility] st Contact Info) Description 10/27/2023 Refill [facility] [address] [place] [address] Ernie Noriega MD [address] [place] [address] Seasonal allergies; Pain Social History Tobacco Use [...] Description 04/13/2025 2:15 PM EDT Office Visit [facility] [address] [place] [address] Ernie Noriega MD [address] [place] [address] documented as of this encounter Visit Diagnoses Diagnosis Seasonal allergies Allergic rhinitis, cause unspecified Pain Generalized pain documented in this encounter Additional Health Concerns Assessment Noted Time PHQ-9 Depression Total Score: 0 12/02/19 23 2:38 PM EST documented as of this encounter Care Teams Product Applications Engineer Relationship Specialty Start Date End Date Ernie Noriega MD [address] [place] [address] PCP - General Internal Medicine 08/25/19 documented as of this encounter
--- OUTSIDE RECORDS SUMMARY | 2025-01-13 12:39 | XMS_ITS | Encounter Summary ---
Author Organization [employer] Address [address] [place] [address] 7t [place] [address] Care Team Providers Care Magazine Writer Name Role Phone Ernie Noriega MD Primary Care Provide r Reason for Visit * Reason Onset Date Comments Med Refill 10/25/2023 Encounter Details Date Type Department Care Team ([facility] st Contact Info) Description 10/25/2023 Refill [facility] [address] [place] [address] Perlita Woody MD 230 [place] [address] Primary hypertension Social History Tobacco Use Types [...] Description 04/13/2025 2:15 PM EDT Office Visit [facility] [address] [place] [address] Ernie Noriega MD 230 [place] [address] documented as of this encounter Visit Diagnoses Diagnosis Primary hypertension Unspecified essential hypertension documented in this encounter Additional Health Concerns Assessment Noted Time PHQ-9 Depression Total Score: 0 12/02/19 23 2:38 PM EST documented as of this encounter Care Teams Magazine Writer Relationship Specialty Start Date End Date Ernie Noriega MD [address] [place] [address] PCP - General Internal Medicine 08/25/19 documented as of this encounter
--- OUTSIDE RECORDS SUMMARY | 2025-01-13 12:39 | XMS_ITS | Encounter Summary ---
Author Organization [employer] Address [address] [place] [address] 7t [place] [address] Care Team Providers Care Geological Science Teacher Name Role Phone Ernie Noriega MD Primary Care Provide r Reason for Visit * Reason Onset Date Comments Med Refill 11/07/2024 Encounter Details Date Type Department Care Team ([facility] st Contact Info) Description 11/07/[address] [facility] MEDICINE [address] [place] [address] Ernie Noriega MD [address] [place] [address] Chronic midline low back pain without sciatica [...] Description 04/13/2025 2:15 PM EDT Office Visit [facility] MEDICINE [address] [place] [address] Ernie Noriega MD [address] [place] [address] documented as of this encounter Visit Diagnoses Diagnosis Chronic midline low back pain without sciatica documented in this encounter Additional Health Concerns Assessment Noted Time PHQ-9 Depression Total Score: 2 01/21/20 24 1:25 PM EDT documented as of this encounter Care Teams Geological Science Teacher Relationship Specialty Start Date End Date Ernie Noriega MD [address] [place] [id number] PCP - General Internal Medicine 08/25/19 documented as of this encounter
--- OUTSIDE RECORDS SUMMARY | 2025-01-13 12:39 | XMS_ITS | Encounter Summary ---
Author Organization [employer] Address [address] [place] [address] 7t [place] [address] Care Team Providers Care Manager Of Network Name Role Phone Ernie Noriega MD Primary Care Provide r Reason for Visit * Reason Comments Med Refill Encounter Details Date Type Department Care Team ([facility] st Contact Info) Description 08/10/2023 Refill [facility] MED[facility]INE 230 [place] [address] Ernie Noriega MD [address] [place] [address] Primary osteoarthritis of knee, unspecified laterality; Chronic [...] 2:15 PM EDT Office Visit [facility] MEDICINE [address] [place] [address] Ernie Noriega MD [address] [place] [address] documented as of this encounter Visit Diagnoses Diagnosis Primary osteoarthritis of knee, unspecified laterality Chronic midline low back pain without sciatica Cervical radiculopathy Brachial neuritis or radiculitis nos Pain Generalized pain documented in this encounter Additional Health Concerns Assessment Noted Time PHQ-9 Depression Total Score: 0 12/02/19 23 2:38 PM EST documented as of this encounter Care Teams Manager Of Network Relationship Specialty Start Date End Date Ernie Noriega MD [address] [place] [phone] PCP - General Internal Medicine 08/25/19 documented as of this encounter
--- OUTSIDE RECORDS SUMMARY | 2025-01-13 12:39 | XMS_ITS | Encounter Summary ---
Author Organization [facility] Address [address] [place] [address] 7 [place] [address] Care Team Providers Care Cnc Machine Setter Name Role Phone Ernie Noriega MD Primary Care Provide r Encounter Details Date Type Department Care Team (Late st Contact Info) Description 02/18/2023 Abstract [facility] MEDICINE [address] [place] [address] [phone] Ernie Noriega MD [address] [place] [address] [phone] Social History Tobacco Use Types Packs/Day Years [...] Description 04/13/2025 2:15 PM EDT Office Visit [facility] MEDICINE [address] [place] [address] [phone] Ernie Noriega MD [address] [place] [address] [phone] documented as of this encounter Procedures Procedure [...] documented as of this encounter Care Teams Cnc Machine Setter Relationship Specialty Start Date End Date Ernie Noriega MD [address] [place] [phone] PCP - General Internal Medicine 08/25/19 documented as of this encounter
--- OUTSIDE RECORDS SUMMARY | 2025-01-13 12:39 | XMS_ITS | Encounter Summary ---
Author Organization [employer] Address [address] [place] [address] 7t [place] [address] Care Team Providers Care Theatre Program Director Name Role Phone Ernie Noriega MD Primary Care Provide r Reason for Visit * Reason Onset Date Comments Nurse Triage 12/22/2024 Encounter Details Date Type Department Care Team ([facility] st Contact Info) Description 12/22/2024 Telephone [facility] MEDICINE [address] [place] [address] Ernie Noriega MD [address] [place] [address] Nurse Triage Social History Tobacco Use Types [...] 12/22/2024 10:03 AM EDT Called pt. Via [employer] spanish interpreter/translator [phone] [place]. Pt. States that she went to [...] leg pain now Please contact pt at [phone]. (Mohawk Speaker) documented in this encounter Plan of Treatment Upcoming Encounters Date Type Department Care Team (Late st Contact Info) Description 04/13/2025 2:15 PM EDT Office Visit [facility] MEDICINE [address] [place] [address] Ernie Noriega MD [address] [place] [address] documented as of this encounter Visit Diagnoses Not on filedocumented in this encounter Additional Health Concerns Assessment Noted Time PHQ-9 Depression Total Score: 2 01/21/20 24 1:25 PM EDT documented as of this encounter Care Teams Theatre Program Director Relationship Specialty Start Date End Date Ernie Noriega MD [address] [place] [address] PCP - General Internal Medicine 08/25/19 documented as of this encounter
--- OUTSIDE RECORDS SUMMARY | 2025-01-13 12:39 | XMS_ITS | Encounter Summary ---
Author Organization [employer] Address [address] [place] [address] 7t [place] [address] Care Team Providers Care Rn Trauma Name Role Phone Ernie Noriega MD Primary Care Provide r Reason for Visit * Reason Onset Date Comments Med Refill 10/27/2023 Encounter Details Date Type Department Care Team ([facility] st Contact Info) Description 10/27/2023 Refill [facility] [address] [place] [address] Ernie Noriega MD 230 [place] [address] Mild persistent asthma without complication; Pain; Chronic [...] 2:15 PM EDT Office Visit [facility] [address] [place] [address] Ernie Noriega MD [address] [place] [phone] documented as of this encounter Visit Diagnoses Diagnosis Mild persistent asthma without complication Pain Generalized pain Chronic midline low back pain without sciatica Cervical radiculopathy Brachial neuritis or radiculitis nos documented in this encounter Additional Health Concerns Assessment Noted Time PHQ-9 Depression Total Score: 0 12/02/19 23 2:38 PM EST documented as of this encounter Care Teams Rn Trauma Relationship Specialty Start Date End Date Ernie Noriega MD [address] [place] [phone] PCP - General Internal Medicine 08/25/19 documented as of this encounter
--- OUTSIDE RECORDS SUMMARY | 2025-01-13 12:39 | XMS_ITS | Encounter Summary ---
Author Organization [employer] Address [address] [place] [address] 7t [place] [address] Care Team Providers Care Scrap Worker Name Role Phone Ernie Noriega MD Primary Care Provide r Reason for Visit * Reason Onset Date Comments Med Refill 11/04/2023 Encounter Details Date Type Department Care Team ([facility] st Contact Info) Description 11/04/2023 Refill [facility] [address] [place] [address] Ernie Noriega MD [address] [place] [address] Pain Social History Tobacco Use Types Packs/Day [...] Description 04/13/2025 2:15 PM EDT Office Visit [facility] MEDIC[facility] [address] [place] [address] Ernie Noriega MD [address] [place] [address] documented as of this encounter Visit Diagnoses Diagnosis Pain Generalized pain documented in this encounter Additional Health Concerns Assessment Noted Time PHQ-9 Depression Total Score: 0 12/02/19 23 2:38 PM EST documented as of this encounter Care Teams Scrap Worker Relationship Specialty Start Date End Date Ernie Noriega MD [address] [place] [phone] PCP - General Internal Medicine 08/25/19 documented as of this encounter
--- OUTSIDE RECORDS SUMMARY | 2025-01-13 12:39 | XMS_ITS | Encounter Summary ---
Author Organization [employer] Address [address] [place] [address] 7t [place] [address] Care Team Providers Care Sap Gatherer Name Role Phone Ernie Noriega MD Primary Care Provide r Reason for Visit * Reason Comments Med Refill Encounter Details Date Type Department Care Team ([facility] st Contact Info) Description 10/16/2023 Refill [facility] [address] [place], [place] [phone] Ernie Noriega MD [address] [place] [address] Pain Social History Tobacco Use Types Packs/Day [...] 04/13/2025 2:15 PM EDT Office Visit [facility] [address] [place] [address] Ernie Noriega MD [address] [place] [address] documented as of this encounter Visit Diagnoses Diagnosis Pain Generalized pain documented in this encounter Additional Health Concerns Assessment Noted Time PHQ-9 Depression Total Score: 0 12/02/19 23 2:38 PM EST documented as of this encounter Care Teams Sap Gatherer Relationship Specialty Start Date End Date Ernie Noriega MD [address] [place] [address] PCP - General Internal Medicine 08/25/19 documented as of this encounter
--- OUTSIDE RECORDS SUMMARY | 2025-01-13 12:39 | XMS_ITS | Encounter Summary ---
Author Organization [employer] Address [address] [place] [address] 7[address] [place] [address] Care Team Providers Care Jump Roll Operator Name Role Phone Ernie Noriega MD Primary Care Provide r Reason for Visit * Reason Comments Med Refill Encounter Details Date Type Department Care Team ([facility] st Contact Info) Description 01/09/2025 Refill [facility] MEDICINE [address] [place] [address] Ernie Noriega MD [address] [place] [address] Ischial pain, right; Chronic midline low back [...] 2:15 PM EDT Office Visit [facility] MEDIC[facility] [address] [place] [address] Ernie Noriega MD [address] [place] [address] documented as of this encounter Visit Diagnoses Diagnosis Ischial pain, right Chronic midline low back pain without sciatica Primary osteoarthritis of knee, unspecified laterality documented in this encounter Additional Health Concerns Assessment Noted Time PHQ-9 Depression Total Score: 2 01/21/20 24 1:25 PM EDT documented as of this encounter Care Teams Jump Roll Operator Relationship Specialty Start Date End Date Ernie Noriega MD [address] [place] [address] PCP - General Internal Medicine 08/25/19 documented as of this encounter
--- OUTSIDE RECORDS SUMMARY | 2025-01-13 12:40 | XMS_ITS | Encounter Summary ---
Author Organization [employer] Address [address] [place] [address] 7t [place] [address] Care Team Providers Care Burn Crew Member Name Role Phone Ernie Noriega MD Primary Care Provide r Reason for Visit * Reason Onset Date Comments Med Refill 08/17/2023 Encounter Details Date Type Department Care Team ([facility] st Contact Info) Description 08/17/2023 Telephone [facility] MEDICINE [address] [place], [place] [phone] Ernie Noriega MD [address] [place], [place] [phone] Med Refill Social History Tobacco Use Types [...] (Ultram) 50 MG tablet Please sent to [facility]/pharmacy #[id number] [place], [place] - [address] [place] [address] documented in this encounter Plan of Treatment Upcoming Encounters Date Type Department Care Team (Late st Contact Info) Description 04/13/2025 2:15 PM EDT Office Visit [facility] MEDICINE [address] [place] [address] Ernie Noriega MD [address] [place] [address] documented as of this encounter Visit Diagnoses Not on filedocumented in this encounter Additional Health Concerns Assessment Noted Time PHQ-9 Depression Total Score: 0 12/02/19 23 2:38 PM EST documented as of this encounter Care Teams Burn Crew Member Relationship Specialty Start Date End Date Ernie Noriega MD [address] [place] [address] PCP - General Internal Medicine 08/25/19 documented as of this encounter
--- OUTSIDE RECORDS SUMMARY | 2025-01-13 12:40 | XMS_ITS | Clinical Summary ---
Author Organization [employer] Address [address] [place] [address] 7[address] [place] [address] Care Team Providers Care Venereal Disease Control Head Name Role Phone Ernie Noriega MD Primary [...] DAY 90 tablet 2 06/07/20 24 Active Acetaminophen Extra Strength 500 MG tabletIndications :Pain TAKE 1 TABLET BY MOUTH EVERY 12 HOURS IF NEEDED FOR PAIN 60 tablet 3 10/11/20 24 Active fluticasone (Flonase) 50 MCG/ACT nasal sprayIndications: Seasonal allergies USE 2 SPRAYS INTO EACH NOSTRIL 2 TIMES DAILY 48 mL 11/03/19 25 Active hydroCHLOROthiazi de (HYDRODiuril) 25 MG tabletIndications :Primary hypertension TAKE 1 TABLET BY MOUTH EVERY MORNING 90 tablet 11/18/19 25 Active omeprazole (PriLOSEC) [address] capsuleIndication s:Gastritis without bleeding, unspecified chronicity, unspecified gastritis type TOME 1 CAPSULA POR VIA ORAL TODOS [place]ARE[place] BEFORE A MEAL 90 capsule 3 11/29/19 25 Active oxyCODONE (Roxicodone) 5 MG immediate release tablet Take 5 mg by mouth every 6 (six) hours if needed. 10/20/19 25 Active diclofenac (Cataflam) 50 MG tabletIndications :Ischial pain, right TOME 1 TABLETA POR VIA ORAL DOS VECES AL FERNANDO 60 tablet 3 01/12/20 25 Active gabapentin (Neurontin) 300 MG capsuleIndication s:Chronic midline low back pain without sciatica TAKE 2 CAPSULES BY MOUTH 3 TIMES DAILY. 180 capsule 1 01/12/20 25 Active lidocaine (Lidoderm) 5 % patchIndications: Primary osteoarthritis of knee, unspecified laterality APPLY 1 TO 2 PATCHES TOPICALLY AND LEAVE ON UP TO 12 HOURS DAILY IF NEEDED FOR PAIN 60 patch 1 01/12/20 25 Active albuterol (2.5 MG/3ML) 0.083% nebulizer solution INHALE THE CONTENTS OF 1 VIAL WITH NEBULIZER 3 TIMES A DAY 75 mL 1 01/12/20 25 Active diclofenac (Cataflam) 50 MG tabletIndications :Ischial pain, right TAKE 1 TABLET BY MOUTH TWICE A DAY 60 tablet 3 09/20/20 24 2024 Discontinued gabapentin (Neurontin) 300 MG capsuleIndication s:Chronic midline low back pain without sciatica Take 2 capsules (600 mg) by mouth 3 times daily. 180 capsule 1 10/13/19 25 2024 Discontinued albuterol (2.5 MG/3ML) 0.083% nebulizer solution INHALE 1 VIAL (3ML) VIA NEBULIZER THREE TIMES A DAY 75 mL 1 11/03/19 25 2024 Discontinued lidocaine (Lidoderm) 5 % patchIndications: Primary osteoarthritis of knee, unspecified laterality APPLY 1 TO 2 PATCHES TOPICALLY AND LEAVE ON UP TO 12 HOURS DAILY IF NEEDED FOR PAIN 60 patch 1 11/15/19 25 2024 Discontinued albuterol (2.5 MG/3ML) 0.083% nebulizer solution INHALE THE CONTENTS OF 1 VIAL WITH NEBULIZER 3 TIMES A DAY 75 mL 1 12/17/19 25 2024 Discontinued(R eorder (will not trigger notification to Pharmacy)) Active Problems Problem Noted Date Diagnosed Date Right foot pain 01/12/2025 Assessment & Plan (01/12/2025 3:13 PM EDT): Seen in the ER 12/22/2024 X-ray did [...] with normal Uric Acid and Lyme titers UTI symptoms 10/25/2024 Assessment & Plan (10/25/2024 [...] leg with pain, right Assessment & Plan (01/12/2025 3:09 PM EDT): Painful Evaluated by Dr Adarsh Villalba, last note from 01/2025 scheduled for microablation Assessment & Plan (06/07/2024 12:50 PM EDT): [...] chronic low back pain, treated at [facility] by Dr Clint Newberry. Hx of AP fusion from L4-sacrum in 2003. She has received epidural injections initially with good results but that is no longer the case. Pt developed lumbar spinal stenosis and on 01/14/2021 underwent Posterior neural foraminotomy L2-L3 by Dr. Bailey. She was admitted to [facility] [place] [place] from 11/13/2022 until 11/20/2022 due to worsening low back pain with radiation to her right thigh and right leg after an experimental thoracic spinal stimulation procedure at the surgery center [facility] (She was referred there by [facility]). Procedure was aborted after pt experienced [...] does not want to follow-up with [place] d/t the severe pain she experienced with [...] care of Orthopaedic specialist Dr Lees at [facility]. Pt would like to hold off on procedure until her back feels better. I contacted the office of Orthopaedic surgeon who stated this was an elective procedure and was ok with delaying until pt felt ready Assessment & Plan (12/04/2022 8:31 AM EST): Pt had initially come in for a Preoperative exam. Under the care of Orthopaedic specialist Dr Lees at [facility]. Pt would like to hold off on procedure until her back feels better. I contacted the office of Orthopaedic surgeon who stated this was an elective procedure and was ok with delaying until pt felt ready Essential hypertension 10/03/2022 Assessment & Plan (01/12/2025 3:27 PM EDT): Patient with Hypertension currently controlled [...] counseled about weight loss. Assessment & Plan (10/13/2024 3:36 PM EST): [...] a Medical [employer] Card recommended by [facility] treating physician. pt utilizes the liquid form. She is no longer under the care of [facility] I had been prescribing tramadol to [...] a Medical [employer] Card recommended by [facility] treating physician. pt utilizes the liquid form. She is no longer under the care of [facility] I had been prescribing tramadol to use [...] Soto who referred her back to [facility] for back pain History of total [...] Under the care of Dr Almeida at [facility]. see med list for current psychiatric meds, no changes. she has been stable they have requested me to continue his medications for insomnia, Ambien and Benadryl Chronic low back pain 05/12/2012 Assessment & Plan (01/12/2025 3:22 PM EDT): Pt here for a f/u Hx of chronic low back pain, treated in the past at [facility] by Dr Clint Newberry. Hx of AP fusion from L4-sacrum in 2004. She received epidural injections with good results in the past. but that was no longer the case. Pt developed lumbar spinal stenosis and on 01/14/2021 underwent Posterior neural foraminotomy L2-L3by Dr. Bailey. She was admitted to [facility] [place] [place] from 11/13/2022 until 11/20/2022 due to worsening low back pain with radiation to her right thigh and right leg after an experimental thoracic spinal stimulation procedure at the surgery center of [place] (She was referred there by [facility]). Procedure was aborted after pt experienced [...] any surgical intervention that could help, pt was interested in being evaluated at the pain clinic. Pt was evaluated at [facility] Pain clinic: 11/08/2024 they did an MRI [...] encroachment seen. Subsequently she was referred to [facility] Neurosurgery, seen Their assesment was:that patient hadsevere back pain likely related to degenerative changes caused by prior failed back surgeries. She has tried injections but not physical therapy. I have ordered her PT. They did not believe that her arachnoid cysts were symptomatic as she does not have myelopathy [...] completed PT to discuss possible surgical intervention. Assessment & Plan (10/13/2024 3:42 PM EST): Pt here for a f/u Hx of chronic low back pain, treated in the past at [facility] by Dr Clint Newberry. Hx of AP fusion from L4-sacrum in 2003. She received epidural injections with good results in the past. but that was no longer the case. Pt developed lumbar spinal stenosis and on 01/14/2021 underwent Posterior neural foraminotomy L2-L3by Dr. Bailey. She was admitted to [facility] [place] [place] from 11/13/2022 until 11/20/2022 due to worsening low back pain with radiation to her right thigh and right leg after an experimental thoracic spinal stimulation procedure at the surgery center [facility] (She was referred there by [facility]). Procedure was aborted after pt experienced [...] she had been receiving treatment at [facility] by Dr Clint Newberry. Hx of AP fusion from L4-sacrum in 2003. She has received epidural injections with good results in the past. but that was no longer the case. Pt developed lumbar spinal stenosis and on 01/14/2021 underwent Posterior neural foraminotomy L2-L3by Dr. Bailey. Patient is here for a follow up. She was recently admitted to [facility] [place] [place] from 11/13/2022 until 11/20/2022 due to worsening low back pain with radiation to her right thigh and right leg after an experimental thoracic spinal stimulation procedure at the surgery center [facility] (She was referred there by [facility]). Procedure was aborted after pt experienced [...] does not want to follow-up with [place] d/t the severe pain she experienced with [...] she had been receiving treatment at [facility] by Dr Clint Newberry. Hx of AP fusion from L4-sacrum in 2003. She has received epidural injections with good results in the past. but that was no longer the case. Pt developed lumbar spinal stenosis and on 01/14/2021 underwent Posterior neural foraminotomy L2-L3by Dr. Bailey. She was admitted to [facility] [place] [place] from 11/13/2022 until 11/20/2022 due to worsening low back pain with radiation to her right thigh and right leg after an experimental thoracic spinal stimulation procedure at the surgery center [facility] (She was referred there by [facility]). Procedure was aborted after pt experienced [...] does not want to follow-up with [place] d/t the severe pain she experienced with [...] she had been receiving treatment at [facility] by Dr Clint Newberry. Hx of AP fusion from L4-sacrum in 2003. She has received epidural injections with good results in the past. but that was no longer the case. Pt developed lumbar spinal stenosis and on 01/14/2021 underwent Posterior neural foraminotomy L2-L3by Dr. Bailey. Patient is here for a follow up. She was recently admitted to [facility] [place] [place] from 11/13/2022 until 11/20/2022 due to worsening low back pain with radiation to her right thigh and right leg after an experimental thoracic spinal stimulation procedure at the surgery center [facility] (She was referred there by [facility]). Procedure [...] does not want to follow-up with [place] d/t the severe pain she experienced with [...] Encounters Date Type Department Care Team Description 01/12/2025 3:00 PM EDT Office Visit [facility] [address] [place] [address] Ernie Noriega MD Varicose veins of leg with pain, right (Primary Dx); Right foot pain; Chronic midline low back pain without sciatica; Essential hypertension 01/12/2025 Telephone [facility] [address] [place] [address] Ernie Noriega MD Appointment Request 01/12/2025 Travel 01/10/2025 Refill [facility] [address] [place] [address] Ernie Noriega MD Primary osteoarthritis of knee, unspecified laterality 01/10/2025 Refill [facility] [address] [place] [address] Ernie Noriega MD Chronic midline low back pain without sciatica 01/09/2025 Refill [facility] [address] [place] [address] Ofelia Melgar MD 01/09/2025 Refill [facility] [address] [place] [address] Ernie Noriega MD Ischial pain, right; Chronic midline low back pain without sciatica; Primary osteoarthritis of knee, unspecified laterality 01/05/2025 Travel 12/29/2024 Telephone [facility] [address] [place] [address] Ernie Noriega MD Chart Prep 12/23/2024 Population Health Risk Score [facility] [address] [place] [id number] Provider, Population Health Generic 12/23/2024 Telephone [facility] [address] [place] [address] Ernie Noriega MD Referral 12/22/2024 Telephone [facility] [address] [facility] [place] [address] Marty Soto MD Results 12/22/2024 Orders Only [facility] [address] [place] [address] Marty Soto MD Right foot pain (Primary Dx) 12/22/2024 Telephone [facility] [address] [place] [address] Ernie Noriega MD Nurse Triage 12/21/2024 9:00 AM EDT Office Visit [facility] [address] [place] [address] Marty Soto MD Right foot pain (Primary Dx); Ecchymoses, spontaneous 12/15/2024 Refill [facility] [address] [place] [address] Ernie Noriega MD 12/09/2024 Orders Only [facility] External Provider, [facility] 11/28/2024 Refill [facility] [address] [place] [address] Ernie Noriega MD Gastritis without bleeding, unspecified chronicity, unspecified gastritis type 11/18/2024 Refill [facility] [address] [place] [address] Ernie Noriega MD Primary hypertension 11/17/2024 Refill [facility] [address] [place] [address] Ernie Noriega MD Seasonal allergies 11/14/2024 Refill [facility] [address] [place] [address] Ernie Noriega MD Primary osteoarthritis of knee, unspecified laterality 11/07/2024 Refill [facility] [address] [place] [address] Ernie Noriega MD Chronic midline low back pain without sciatica 11/01/2024 Refill [facility] [address] [place] [address] Sugar Mitchell MD Seasonal allergies 11/01/2024 Refill [facility] [address] [place] [address] Sugar Mitchell MD Seasonal allergies 10/25/2024 1:20 PM EST Office Visit [facility] [address] [place] [address] Ofelia Melgar MD UTI symptoms 10/25/2024 Refill [facility] [address] [place] [address] Ernie Noriega MD Chronic midline low back pain without sciatica 10/25/2024 Telephone [facility] [address] [place] [address] Ernie Noriega MD Med Refill 10/25/2024 Travel 10/17/2024 Refill [facility] [address] [place], [place] [phone] Ernie Noriega MD Primary osteoarthritis of knee, unspecified laterality 10/16/2024 Refill [facility] [address] [place], [place] [phone] Sugar Mitchell MD from Last 3 Months Immunizations Name Administration [...] Mass Index 29.3 01/12/2025 2:57 PM EDT Plan of Treatment Upcoming Encounters Date Type Department Care Team (Late st Contact Info) Description 04/13/2025 2:15 PM EDT Office Visit [facility] [address] [place] [address] Ernie Noriega MD [address] [place] [address] Health Maintenance Due Date Last Done Comments CT Colonography 1965 FIT DNA/Cologuard 1965 FIT 1965 FOBT 1965 HIV Screening 1965 Sigmoidoscopy 1965 Pap Smear 1984 RSV Patients and Patients Aged 60 years or older (1 - Risk 60-74 years 1-dose series) 2023 COVID-19 Vaccine ( season) 2024 07/16/2022, 08/28/2021, 02/22/2021, Additional history exists Alcohol/Substance Use Screening 10/13/2025 10/13/2024 Cervical Cancer Screening 12/19/2025 HPV/Cotest 12/19/2025 12/19/2020, 12/10, 09/02/2019 Mammogram 12/31/2025 01/01/2024, 12/10, 11/25/2021, Additional history exists Depression Screening 01/12/2026 01/12/2025, 01/13/20 SDOH Screening 01/12/2026 01/12/2025 Tobacco Screening 01/12/2026 01/12/2025 Lipid Panel 11/07/2027 11/07/2022, 03/27/2021 Colonoscopy 03/18/2029 [...] AM EDT) Lyme Antibody Screen <0.90 index [facility] Comment:Index Interpretation ----- < 0.90 Negative [...] when erythemamigrans is apparent.THIS TEST WAS PERFORMED AT:[facility] [place] [id number] ANTONY MD Lyme Blot TNP [facility] 12/21/2024 10:1 3 AM EDT 12/21/2024 11:45 AM EDT us Marty Soto MD LAB BLOOD ORDERABLES Final Resul t [facility] [address] [place] [address] [phone] * (ABNORMAL) CBC auto differential (12/21/2024 10:13 AM EDT) White Blood Count 8.1 4.8 - 10.8 X10*3/uL [facility] Red Blood Count 4.14(L) 4.20 - 5.50 X10*6/uL [facility] Hemoglobin 11.6(L) 12.0 - 16.0 g/dl [facility] Hematocrit 37.3 37.0 - 47.0 % [facility] Mean Corpuscular Volume 90.1 80.0 - 98.0 fL [facility] Mean Corpuscular Hemoglobin 28.0 27.0 - 33.0 pg [facility] Mean Corpuscular HGB Conc 31.1 31.0 - 35.0 g/dl [facility] Red Cell Distribution Width 13.6 11.0 - 16.0 % [facility] Platelet Count 312 160 - 400 X10*3/uL [facility] Mean Platelet Volume 10.2 9.4 - 12.3 fL [facility] Neutrophils Percent Auto 55.2 45 - 73 % [facility] Imm Gran Pct Auto 0.4 0.0 - 0.4 % [facility] Lymphocytes Percent Auto 35.1 20 - 40 % [facility] Monocytes Percent Auto 7.3 2 - 11 % [facility] Eosinophils Percent Auto 1.4 0 - 4 % [facility] Basophils Percent Auto 0.6 0 - 2 % [facility] NRBC Pct Auto 0.0 0.0 - 0.2 /100WBC [facility] Neutrophils Absolute Auto 4.5 2.0 - 8.3 x10*3/uL [facility] Imm Gran Abs Auto 0.03 0.00 - 0.03 X10*3/uL [facility] Lymphocytes Absolute Auto 2.9 1.2 - 4.9 X10*3/uL [facility] Monocytes Absolute Auto 0.6 0.1 - 1.2 X10*3/uL [facility] Eosinophils Absolute Auto 0.1 0.0 - 0.4 X10*3/uL [facility] Basophils Absolute Auto 0.1 0.0 - 0.2 X10*3/uL [facility] NRBC Abs Auto 0.000 0.0 - 0.012 X10*3/uL [facility] Blood Venous blood specimen / Unknown 12/21/2024 10:13 AM EDT 12/21/2024 11:45 AM EDT us Marty Soto MD LAB BLOOD ORDERABLES Final Resul t Performing Organization Address City/[facility]/ZIP Co de Phone Number [facility] [address] [place] [phone] * Partial Thromboplastin Time, Activated (APTT) (12/21/2024 10:13 AM EDT) Partial Thromboplastin Time 33.7 26.0 - 36.8 SEC [facility] Comment:For information rega rding the monitoring of direct thrombininhibitors, please refer to Pharmacy. Blood Venous blood specimen / Unknown 12/21/2024 10:13 AM EDT 12/21/2024 11:45 AM EDT us Marty Soto MD LAB BLOOD ORDERABLES Final Resul t Performing Organization Address City/[facility]/ZIP Co de Phone Number [facility] [address] [place] [phone] * Prothrombin Time-INR (12/21/2024 10:13 AM EDT) Prothrombin Time 11.4 10.9 - 12.4 SEC [facility] INTERNATIONAL NORM RATIO 1.0 0.9 - 1.1 [facility] Comment:INTERNATIONAL NORMAL IZED RATIO (INR) REFERENCE [...] ORDERABLES Final Resul t Performing Organization Address [facility] Co de Phone Number [facility] [address] [place] [phone] * Uric acid (12/21/2024 10:13 AM EDT) Uric Acid 4.6 2.4 - 5.7 mg/dL [facility] Blood Venous blood specimen / Unknown 12/21/2024 10:13 AM EDT 12/21/2024 11:45 AM EDT us Marty Soto MD LAB BLOOD ORDERABLES Final Resul t Performing Organization Address [facility] de Phone Number [facility] [address] [place] [address] [phone] * XR Foot 3+ Views Right (12/21/2024 9:42 AM EDT) Anatomical Region Laterality Modality Lower Extremities, Foot Right Radiogra phic Imaging 12/21/2024 9:42 AM EDT Narrative 12/21/2024 10:03 AM EDT ?[facility] ?[address] ?[place] [address] ?XRay Report ? Signed ? Patient: Julien,Miguelina ?MR#: [id number] ?? 12 ? : 1965 ?Acct:[id number] ? Age/Sex: 59 / F ?ADM Date: 03/12/25 ? Loc: HO.HHCX ? Attending Dr: Marty Soto MD ? Ordering Physician: MARTY SOTO MD ?? Date of Service: 12/21/24 ?? Procedure(s): XR foot RT min 3V ?? Accession Number(s): [id number] ? cc: MARTY SOTO MD ? EXAMINATION: [...] DD/ 0942 ? TD/TT: 12/21/24 0956 ? Loading Manager: ? Procedure Note Tiesha, Rene - 12/21/2024 [place] [address] XRay Report Signed Patient: Miguelina Julien#: [id number] [birth year] : 1965Acct:[id number] Age/Sex: 59 / FADM Date: 12/21/24 Loc: HO.HHCX Attending Dr: Marty Soto MD Ordering Physician: MARTY SOTO MD Date of Service: 12/21/24 Procedure(s): XR foot RT min 3V Accession Number(s): [id number] cc: MARTY SOTO MD EXAMINATION: XR FOOT [...] 12/21/24 1000 DD/ 0942 TD/TT: 12/21/24 0956 Loading Manager: us Marty Soto MD IMG XR PROCEDURES Final Result * FL Guidance in OR (12/09/2024 9:08 AM EST) Anatomical Region Laterality Modality X-Ray Angiograph y 12/09/2024 9:08 AM EST Narrative 12/09/2024 9:48 AM EST ? [facility] ?[address] ?[place] [address] ? Fluoroscopy Report ? Signed ? Patient: Miguelina Julien ?MR#: [id number] ?? 12 ? : 1965 ?Acct:[id number] ? Age/Sex: 59 / F ?ADM Date: 12/09/24 ? Loc: HO.SSS ? Attending Dr: Aldo Casas MD ? Ordering Physician: Aldo Casas MD ?? Date of Service: 12/09/24 ?? Procedure(s): FL guidance in OR ?? Accession Number(s): [id number] ? cc: Ofelia Melgar MD; Aldo Casas [...] DD/ 0908 ? TD/TT: 12/09/24 0930 ? Loading Manager: ? Procedure Note Donotmonater, Image - 12/09/[address] [address] Fluoroscopy Report Signed Patient: Miguelina Julien#: [id number] [birth year] : 1965Acct:[id number] Age/Sex: 59 / FADM Date: 12/09/24 Loc: HO.[facility] Attending Dr: Aldo Casas MD Ordering Physician: Aldo Casas MD Date of Service: 12/09/24 Procedure(s): FL guidance in OR Accession Number(s): [id number] cc: Ofelia Melgar MD; Aldo Casas MD [...] signed by Rodrick Williamson MD in OV> 12/09/24 0945 DD/ 7 TD/TT: 12/09/24929 Loading Manager: [facility] External Provider IMG IR PROCEDURES Final [...] UA OK Urine 10/25/2024 1:03 PM EST Oeflia Melgar MD POINT OF CARE TEST ENTER/E DIT ORDERABLES Final Result * Urinalysis, Complete, with Reflex to Culture (10/25/2024 12:00 AM EST) Color Urine Yellow [facility] Appearance Urine Clear [facility] PH 5.5 5.0 - 9.0 [facility] Glucose Urine UA Negative Negative mg/dL [facility] Urine Blood Negative Negative [facility] Specific Stanton - Urine 1.015 1.005 - 1.025 [facility] Urine Protein Negative Neg-Trace mg/dL [facility] Urine Ketones Negative Negative mg/dL [facility] Nitrite Urine Negative Negative [facility] Leukocyte Esterase Urine Negative Negative [facility] RBC Urine 0-2 0 - 2 /HPF [facility] Urine WBC 0-5 0 - 5 /HPF [facility] Urine Squamous Epithelial Cell 0-2 0 - 2 /HPF [facility] Urine Bacteria None Seen None Seen [facility] Hyaline Casts, Urine 0-2 0 - 2 /LPF [facility] Urine 10/25/2024 10/25/2024 Narrative [facility] - 10/25/2024 5:35 PM EST Urine, Clean Catch Ofelia Melgar MD LAB URINE ORDERABLES Final Result [facility] [address] [place] [phone] * (ABNORMAL) Hm Colonoscopy (03/18/2024) Colonoscopy Abnormal( A) Normal Comment:Tubular Adenoma 03/18/2024 us Historical Provider MD HEALTH MAINTENANCE Final Result * BI Mammogram Screening Tomosynthesis Bilateral (01/01/2024 8:45 AM EDT) Anatomical Region Laterality Modality Breast Bilateral Mammography 01/01/2024 8:45 AM EDT Narrative 01/19/2024 10:06 AM EDT ? [facility] [place] ? [address] ?[place] [address] ? Mammography Report ? Signed ? Patient: Miguelina Watson ?MR#: ?? [id number] ? : 1965 ?Acct:[id number] ? Age/Sex: 58 / F ?ADM Date: 01/01/24 ? Loc: HO.MAMMO ? Attending Dr: Ernie Merritt MD ? Ordering Physician: Ernie Merritt MD ?Resu ?? lts: 2Benign Findings ? Date of Service: 01/01/24 ?Follow Up: 1 Year From Orig ?? inal Mammogram ? Procedure(s): MM tomosynthesis screening BI ?? Accession Number(s): [id number] ? cc: Ernie Merritt MD ? EXAMINATION: [...] 1003 ? DD/ 0845 ? TD/TT: ? Loading Manager: ? Procedure Note Tiesha, Image - 01/19/2024 [facility] [address] [place] [address] Dr. [place], [place] T [address] Mammography Report Signed [id number] : 1965Acct:[id number] Age/Sex: 58 / FADM Date: 01/01/24 Loc: HO.MAMMO Attending Dr: Ernie Merritt MD Ordering Physician: Ernie Merrittu lts: 2Benign Findings Date of Service: 01/01/24Follow Up: 1 Year From Orig ina Mammogram Procedure(s): MM tomosynthesis screening BI Accession Number(s): [id number] cc: Ernie Merritt MD EXAMINATION: MM SCREENING [...] in OV> 01/19/24 1003 DD/ 0845 TD/TT: Loading Manager: us Ernie Ro MD IMG BI PROCEDURES Fin al Result * (ABNORMAL) Lipid Panel with Reflex to Direct LDL (11/07/2022 8:24 AM EST) Cholesterol, Total 235(H) <200 mg/dL [employer] [place] [employer] HDL Cholesterol 64 > OR = 50 mg/dL [employer] [place] [facility] Triglycerides 252(H) <150 mg/dL [employer] [facility] Comment: If a non-fasting specimen was collected, consider repeat triglyceride testing on a fasting specimen if clinically indicated. Bebo et al. J. of Clin. Lipidol. 2015;9:129-169. LDL Cholesterol 132(H) mg/dL (calc) [employer] Comment: Reference range: <100 Desirable range <100 mg/dL for primary prevention; ?? <70 mg/dL for patients with CHD or diabetic patients with > or = 2 CHD risk factors. LDL-C is now calculated using the Charlie calculation, which is a validated novel method providing better accuracy than the Friedewald equation in the estimation of LDL-C. Jordan SS et al. BHARAT. 2013;310(19): 8574-4179 (http://education.[employer]/faq/TGH075) Chol/HDLC Ratio 3.7 <5.0 (calc) [employer] Non-HDL Cholesterol 171(H) <130 mg/dL (calc) [employer] Comment: For patients with diabetes plus 1 major ASCVD risk factor, treating to a non-HDL-C goal of <100 mg/dL (LDL-C of <70 mg/dL) is considered a therapeutic option. 11/07/2022 8:24 AM EST 11/07/2022 8:25 AM EST Narrative [facility] - 11/08/2022 12:51 AM EST FASTING:YES FASTING: YES us Ernie Ro MD LAB BLOOD ORDERABLES Final Result [facility] [address], [place] [address] [employer] 200 [facility], (Nl2) [place] [address] * Hepatitis C Antibody with Reflex to HCV, RNA, Quantitative, Real-Time PCR (11/07/2022 8:24 AM EST) Hepatitis C Antibody NON-REACT TAMARA NON-REACT TAMARA [employer] Index 0.12 <1.00 [employer] Comment: HCV antibody was non-reactive. There is no laboratory evidence of HCV infection. In most cases, no further action is required. However, if recent HCV exposure is suspected, a test for HCV RNA (test code 89509) is suggested. For additional information please refer to http://[employer]/faq/HFS69j7 (This link is being provided for informational/ educational purposes only.) Blood Venous blood specimen / Unknown 11/07/2022 8:24 AM EST 11/07/2022 8:25 AM EST Narrative [facility] - 11/08/2022 12:51 AM EST FASTING:YES FASTING: YES Ernie Ro MD LAB BLOOD ORDERABLES Final Result [address], [place] [address] [facility] [employer] [address] [place] [address], (Nl2) [place] [address] * HPV E6/E7 RFLX SERGIO 16 18/45 (12/19/2020 3:40 PM EST) [facility] HPV 16 RNA [facility] HPV 18/45 RNA [facility] HPV E6 E7 ADD [facility] HPV mRNA E6/E7 rflx Not Detected Not Detected [facility] Comment: Methodology: Control Panel Assembler-Mediated Amplification This assay detects E6/E7 viral messenger RNA (mRNA) from 14 high-risk HPV types (16,18,31,33,35,39,45,51,52,56,58,59,66,68). The analytical performance characteristics of this assay have been determined by [employer]. The modifications have not been cleared or approved by the FDA. This assay has been validated pursuant to the CLIA regulations and is used for clinical purposes. For additional information, please refer to http://Sina[employer]/faq/PMJ120u7 (This link if provided for information/ educational purposes only.) THIS TEST WAS PERFORMED AT: [facility] [address] [place] [address],[address] [place], [place] ??[address] FLACA ANTONY MD 12/19/2020 3:40 PM EST us Historical Provider HISTORICAL/NON ORDERABLE LABS Final Result [facility] [address] from Last 3 Months or Most Recently Relevant to Health Maintenance Insurance [employer]3 Care Teams Venereal Disease Control Head Relationship Specialty Start Date End Date Ernie Noriega MD [address] [place] [address] PCP - General Internal Medicine 08/25/19
--- OUTSIDE RECORDS SUMMARY | 2025-01-13 12:40 | XMS_ITS | Encounter Summary ---
Author Organization [employer] Address [address] [place] [address] 7t [place] [address] Care Team Providers Care Template Reproduction Technician Name Role Phone Ernie Noriega MD Primary Care Provide r Reason for Visit * Reason Comments Med Refill Encounter Details Date Type Department Care Team ([facility] st Contact Info) Description 08/28/2023 Refill [facility] [address] [place] [address] Perlita Woody MD 230 [place] [address] Primary hypertension Social History Tobacco Use Types [...] 04/13/2025 2:15 PM EDT Office Visit [facility] MED[facility] [address] [place] [address] Ernie Noriega MD [address] [place] [address] documented as of this encounter Visit Diagnoses Diagnosis Primary hypertension Unspecified essential hypertension documented in this encounter Additional Health Concerns Assessment Noted Time PHQ-9 Depression Total Score: 0 12/02/19 23 2:38 PM EST documented as of this encounter Care Teams Template Reproduction Technician Relationship Specialty Start Date End Date Ernie Noriega MD 230 [place] [address] PCP - General Internal Medicine 08/25/19 documented as of this encounter
--- OUTSIDE RECORDS SUMMARY | 2025-01-13 12:40 | XMS_ITS ---
Author Organization [facility] Address [address] [place] [address] Care Team Providers Care Handstitching Machine Armhole Feller Name Role Phone Milton Ro MD, [facility] Primary Care Provide r Unavailable Rodrick Millan Unavailable [phone] REASON FOR VISIT screening Problems Problem Type SNOMED Code ICD Code Onset Dates Problem Status W/U Status Risk Notes Problem Diverticular disease of colon (470917112) Diverticulosis of large intestine without perforation or abscess without bleeding (K57.30) Active confirmed Encounters Encounter Location Date Provider Diagnosis [facility] [address] [place], [place] [id number] 03/18/2024 Rodrick Millan Encounter for scre ening [...] * ISHMAEL HINOJOSADOB: [birth year] (59 yo F)Acc No.[id number]:03/18/2024 COLON WITH MAC Patient:?ISHMAEL HINOJOSA Provider:?Rodrick Millan MD :1965???Age:58 Y???Sex:Female D ate:03/18/2024 Address:[address] [place], [place] [id number] Pcp:Ernie bonilla MD Subjective: * Chief Complaints: * ???1. Screening. * Medical History:? Objective: * Vitals:? Assessment: * Assessment: 1.?Encounter for screening c olonoscopy - Z12.11 (Primary)???2.?Colon polyps - K63.5???3.?Diverticulosis of large intestine without perforation or abscess without bleeding - K57.30???4.?Internal hemorrhoids - K64.8??? Plan: * Treatment: * Procedure Codes:?00736 COLON OSCOPY AND BIOPSY * * The named appointment provid er may or may not be the originator of this progress note, and it is not deemed complete until electronically signed by the appointment provider. Sign off status: Pending * Provider:?Rodrick Millan MD Date:? 024 Generated for Landon westbrook/Jean-Paul/eTransmitting on:?01/13/2025 12:40 PM EDT
--- OUTSIDE RECORDS SUMMARY | 2025-01-13 12:40 | XMS_ITS | Encounter Summary ---
Author Organization [employer] Address [address] [place] [address] 7t [place] [address] Care Team Providers Care Renewable Energy Division Manager Name Role Phone Ernie Noriega MD Primary Care Provide r Reason for Visit * Reason Onset Date Comments Med Refill 09/28/2024 Encounter Details Date Type Department Care Team ([facility] st Contact Info) Description 09/28/2024 Refill [facility] [address] [place] [address] Ernie Noriega MD [address] [place] [address] Chronic midline low back pain without sciatica; [...] Description 04/13/2025 2:15 PM EDT Office Visit [facility] [address] [place] [address] Ernie Noriega MD [address] [place] [address] documented as of this encounter Visit Diagnoses Diagnosis Chronic midline low back pain without sciatica Cervical radiculopathy Brachial neuritis or radiculitis nos documented in this encounter Additional Health Concerns Assessment Noted Time PHQ-9 Depression Total Score: 2 01/21/20 24 1:25 PM EDT documented as of this encounter Care Teams Renewable Energy Division Manager Relationship Specialty Start Date End Date Ernie Noriega MD [address] [place] [address] PCP - General Internal Medicine 08/25/19 documented as of this encounter
--- OUTSIDE RECORDS SUMMARY | 2025-01-13 12:40 | XMS_ITS | Encounter Summary ---
Author Organization [employer] Address [address] [place] [address] 7t [place] [address] Care Team Providers Care Winch Operator Name Role Phone Ernie Noriega MD Primary Care Provide r Reason for Visit * Reason Onset Date Comments Med Refill 10/13/2024 Encounter Details Date Type Department Care Team ([facility] st Contact Info) Description 10/13/2024 Refill [facility] MEDIC[facility] [address] [place] [address] Ernie Noriega MD [address] [place] [address] Chronic midline low back pain without sciatica [...] Description 04/13/2025 2:15 PM EDT Office Visit [facility] MED[facility] [address] [place] [address] Ernie Noriega MD [address] [place] [address] documented as of this encounter Visit Diagnoses Diagnosis Chronic midline low back pain without sciatica documented in this encounter Additional Health Concerns Assessment Noted Time PHQ-9 Depression Total Score: 2 01/21/20 24 1:25 PM EDT documented as of this encounter Care Teams Winch Operator Relationship Specialty Start Date End Date Ernie Noriega MD [address] [place] [address] PCP - General Internal Medicine 08/25/19 documented as of this encounter
--- OUTSIDE RECORDS SUMMARY | 2025-01-13 12:40 | XMS_ITS | Encounter Summary ---
Author Organization [employer] Address [address] [facility] 7t [place] [address] Care Team Providers Care Brand Engineer Name Role Phone Ernie Noriega MD Primary Care Provide r Reason for Visit * Reason Onset Date Comments Med Refill 09/18/2023 Encounter Details Date Type Department Care Team ([facility] st Contact Info) Description 09/18/2023 Refill [facility] [address] [place] [address] rEnie Noriega MD 230 [facility] [place] [address] Chronic midline low back pain without sciatica; [...] Description 04/13/2025 2:15 PM EDT Office Visit [facility] MED[facility] 230 [place] [address] Ernie Noriega MD 230 [place] [address] documented as of this encounter Visit Diagnoses Diagnosis Chronic midline low back pain without sciatica Cervical radiculopathy Brachial neuritis or radiculitis nos documented in this encounter Additional Health Concerns Assessment Noted Time PHQ-9 Depression Total Score: 0 12/02/19 23 2:38 PM EST documented as of this encounter Care Teams Brand Engineer Relationship Specialty Start Date End Date Ernie Noriega MD 230 [place] [address] PCP - General Internal Medicine 08/25/19 documented as of this encounter
--- OUTSIDE RECORDS SUMMARY | 2025-01-13 12:40 | XMS_ITS | Encounter Summary ---
Author Organization [employer] [facility] Address [address] 7t [place] [address] Care Team Providers Care Home Help Aide Name Role Phone Ernie Noriega MD Primary Care Provide r Reason for Visit * Reason Onset Date Comments Med Refill Referral 12/10/2022 Patient walked i n requesting for referral to a neurologist. It is difficult for her to walk and do her [place] activities. Pt has had [facility] go to her house for therapy, but it has not made any improvements. Encounter Details Date Type Department Care Team (Late st Contact Info) Description 12/10/2022 Refill [facility] [address] [place], [place] [phone] Ernie Noriega MD 230 [place], [place] [phone] Pain Social History Tobacco Use Types Packs/Day [...] Description 04/13/2025 2:15 PM EDT Office Visit [facility] [address] [place] [address] Ernie Noriega MD [address] [place] [address] documented as of this encounter Visit Diagnoses Diagnosis Pain Generalized pain documented in this encounter Additional Health Concerns Assessment Noted Time PHQ-9 Depression Total Score: 0 12/02/19 23 2:38 PM EST documented as of this encounter Care Teams Home Help Aide Relationship Specialty Start Date End Date Ernie Noriega MD [address] [place] [address] PCP - General Internal Medicine 08/25/19 documented as of this encounter
--- OUTSIDE RECORDS SUMMARY | 2025-01-13 12:40 | XMS_ITS | Encounter Summary ---
Author Organization [employer] Address [address] [place] [address] 7t [place] [address] Care Team Providers Care Farm Equipment Assembler Name Role Phone Ernie Noriega MD Primary Care Provide r Reason for Visit * Reason Comments Med Refill Encounter Details Date Type Department Care Team ([facility] st Contact Info) Description 08/10/2023 Refill [facility] [address] [place] [address] Perlita Woody MD [address] [place] [address] Seasonal allergies; Primary hypertension Social History Tobacco [...] Description 04/13/2025 2:15 PM EDT Office Visit [facility] MED[facility] [address] [place] [address] Ernie Noriega MD [address] [place] [address] documented as of this encounter Visit Diagnoses Diagnosis Seasonal allergies Allergic rhinitis, cause unspecified Primary hypertension Unspecified essential hypertension documented in this encounter Additional Health Concerns Assessment Noted Time PHQ-9 Depression Total Score: 0 12/02/19 23 2:38 PM EST documented as of this encounter Care Teams Farm Equipment Assembler Relationship Specialty Start Date End Date Ernie Noriega MD [address] [place] [address] PCP - General Internal Medicine 08/25/19 documented as of this encounter
--- OUTSIDE RECORDS SUMMARY | 2025-01-13 12:40 | XMS_ITS | Encounter Summary ---
Author Organization [employer] [facility] Address [address] [place] [address] 7t [place] [address] Care Team Providers Care County Engineer Name Role Phone Ernie Noriega MD Primary Care Provide r Encounter Details Date Type Department Care Team ([facility] Contact Info) Description 12/09/[address] [facility] [address] [place] [address] Suha Alexander, RN Social History Tobacco [...] Upcoming Encounters Date Type Department Care Team ([facility] Contact Info) Description 04/13/2025 2:15 PM EDT Office Visit [facility] [address] [place] [address] Ernie Noriega MD [address] [place] [address] documented as of this encounter Procedures Procedure Name Priority Date/Time Associated Diagnosis Comments BI MAMMOGRAM SCREENING TOMOSYNTHESIS BILATERAL Routine 12/23/2022 11:35 AM EDT documented in this encounter Results * BI Mammogram Screening Tomosynthesis Bilateral (12/23/2022 11:35 AM EDT) Anatomical Region Laterality Modality Breast Bilateral Mammography 12/23/2022 11:3 5 AM EDT Narrative 12/24/2022 5:15 PM EDT ? [facility] [place] ? [address] ?[place] [address] ? Mammography Report ? Signed ? Patient: Miguelina Watson ?MR#: ?? [id number] ? : 1965 ?Acct:[id number] ? Age/Sex: 57 / F ?ADM Date: 12/23/22 ? Loc: HO.MAMMO ? Attending Dr: Ernie Merritt MD ? Ordering Physician: Ernie Merritt MD ?Resu ?? lts: 1Negative ? Date of Service: 12/23/22 ?Follow Up: 1 Year From Orig ?? inal Mammogram ? Procedure(s): MM tomosynthesis screening BI ?? Accession Number(s): [id number] ? cc: Ernie Merritt MD ? EXAMINATION: [...] 1712 ? DD/ 1135 ? TD/TT: ? Shirt Bander: SK ? Procedure Note Tiesha, Rene - 12/24/2022 [facility] [address] [place] [address] Dr. [place], [place] T [address] Mammography Report Signed [id number] : 1965Acct:[id number] Age/Sex: 57 / FADM Date: 12/23/22 Loc: DANIELE Attending Dr: Ernie Merritt MD Ordering Physician: Ernie Merritt MDResu lts: 1Negative Date of Service: 12/23/22Follow Up: 1 Year From Orig inal Mammogram Procedure(s): MM tomosynthesis screening BI Accession Number(s): [id number] cc: Ernie Merritt MD EXAMINATION: MM SCREENING [...] in OV> 12/24/22 1712 DD/ 1135 TD/TT: Shirt Bander: SMITHA [facility] External Provider IMG BI PROCEDURES Edited Result - Final documented in this encounter Visit Diagnoses Not on filedocumented in this encounter Additional Health Concerns Assessment Noted Time PHQ-9 Depression Total Score: 0 12/02/19 23 2:38 PM EST documented as of this encounter Care Teams County Engineer Relationship Specialty Start Date End Date Ernie Noriega MD [address] [place] [address] PCP - General Internal Medicine 08/25/19 documented as of this encounter
--- OUTSIDE RECORDS SUMMARY | 2025-01-13 12:40 | XMS_ITS | Encounter Summary ---
Author Organization [employer] Address [address] [place] [address] 7t [place] [address] Care Team Providers Care Junk Removal Specialist Name Role Phone Ernie Noriega MD Primary Care Provide r Reason for Visit * Reason Comments Med Refill Encounter Details Date Type Department Care Team ([facility] st Contact Info) Description 08/26/2023 Refill [facility] [address] [place] [address] Perlita Woody MD [address] [place] [address] Seasonal allergies Social History Tobacco Use Types [...] Description 04/13/2025 2:15 PM EDT Office Visit [facility] MED[facility] [address] [place] [address] Ernie Noriega MD [address] [place] [address] documented as of this encounter Visit Diagnoses Diagnosis Seasonal allergies Allergic rhinitis, cause unspecified documented in this encounter Additional Health Concerns Assessment Noted Time PHQ-9 Depression Total Score: 0 12/02/19 23 2:38 PM EST documented as of this encounter Care Teams Junk Removal Specialist Relationship Specialty Start Date End Date Ernie Noriega MD [address] [place] [address] PCP - General Internal Medicine 08/25/19 documented as of this encounter
--- OUTSIDE RECORDS SUMMARY | 2025-01-13 12:40 | XMS_ITS | Encounter Summary ---
Author Organization [employer] [facility] Address [address] [place] [address] 7t [place] [address] Care Team Providers Care Department Store General Manager Name Role Phone Ernie Noriega MD Primary Care Provide r Encounter Details Date Type Department Care Team (Latest Contact Info) Description 03/07/2021 Abstract [facility] CONVERSIONS Dental, Provider, DDS Social History [...] Description 04/13/2025 2:15 PM EDT Office Visit [facility] MEDIC[facility] [address] [place] [address] Ernie Noriega MD [address] [place] [address] documented as of this encounter Visit Diagnoses Not on filedocumented in this encounter Care Teams Department Store General Manager Relationship Specialty Start Date End Date Ernie Noriega MD [address] [place] [address] PCP - General Internal Medicine 08/25/19 documented as of this encounter
--- OUTSIDE RECORDS SUMMARY | 2025-01-13 12:40 | XMS_ITS | Encounter Summary ---
Author Organization [employer] Address [address] [place] [address] 7t [place] [address] Care Team Providers Care Olive Packer Name Role Phone Ernie Noriega MD Primary Care Provide r Reason for Visit * Reason Onset Date Comments Med Refill 11/04/2023 Encounter Details Date Type Department Care Team ([facility] st Contact Info) Description 11/04/2023 Refill [facility] [address] [place] [address] Ernie Noriega MD [address] [place] [address] Chronic midline low back pain without sciatica; [...] Description 04/13/2025 2:15 PM EDT Office Visit [facility] [address] [place] [address] Ernie Noriega MD [address] [place] [address] documented as of this encounter Visit Diagnoses Diagnosis Chronic midline low back pain without sciatica Cervical radiculopathy Brachial neuritis or radiculitis nos Seasonal allergies Allergic rhinitis, cause unspecified documented in this encounter Additional Health Concerns Assessment Noted Time PHQ-9 Depression Total Score: 0 12/02/19 23 2:38 PM EST documented as of this encounter Care Teams Olive Packer Relationship Specialty Start Date End Date Erine Noriega MD [address] [place] [address] PCP - General Internal Medicine 08/25/19 documented as of this encounter
--- OUTSIDE RECORDS SUMMARY | 2025-01-13 12:40 | XMS_ITS | Encounter Summary ---
Author Organization [employer] [facility] Address [address] [place] [address] 7t [place] [address] Care Team Providers Care Electronics Test Engineer Name Role Phone Ernie Noriega MD Primary Care Provide r Encounter Details Date Type Department Care Team (Late st Contact Info) Description 10/03/2022 Orders Only [facility] MEDICINE [address] [place] [phone] Suha Alexander, RN Social History Tobacco Use [...] 2:15 PM EDT Office Visit [facility] [address] [place] [phone] Ernie Noriega MD [address] [place] [address] documented as of this encounter Visit Diagnoses Not on filedocumented in this encounter Care Teams Electronics Test Engineer Relationship Specialty Start Date End Date Ernie Noriega MD [address] [place] [address] PCP - General Internal Medicine 08/25/19 documented as of this encounter
--- OUTSIDE RECORDS SUMMARY | 2025-01-13 12:40 | XMS_ITS | Encounter Summary ---
Author Organization [employer] Address [address] [place] [address] 7t [place] [address] Care Team Providers Care Orange Peel Operator Name Role Phone Ernie Noriega MD Primary Care Provide r Reason for Visit * Reason Comments Med Refill Encounter Details Date Type Department Care Team ([facility] st Contact Info) Description 11/20/2023 Refill [facility] [address] [place], [place] [phone] Ernie Noriega MD [address] [place] [address] Pain Social History Tobacco Use Types Packs/Day [...] Description 04/13/2025 2:15 PM EDT Office Visit [facility] MEDICINE [address] [place] [address] Ernie Noriega MD [address] [place] [address] documented as of this encounter Visit Diagnoses Diagnosis Pain Generalized pain documented in this encounter Additional Health Concerns Assessment Noted Time PHQ-9 Depression Total Score: 0 12/02/19 23 2:38 PM EST documented as of this encounter Care Teams Orange Peel Operator Relationship Specialty Start Date End Date Ernie Noriega MD [address] [place] [address] PCP - General Internal Medicine 08/25/19 documented as of this encounter
--- OUTSIDE RECORDS SUMMARY | 2025-01-13 12:40 | XMS_ITS | Encounter Summary ---
Author Organization [employer] Address [address] [place] [address] 7t [place] [address] Care Team Providers Care Concrete Rubber Name Role Phone Ernie Noriega MD Primary Care Provide r Reason for Visit * Reason Onset Date Comments Med Refill 09/18/2023 Encounter Details Date Type Department Care Team ([facility] st Contact Info) Description 09/18/2023 Telephone [facility] [address] [place] [address] Ernie Noriega MD [address] [place], [place] [phone] Med Refill Social History Tobacco Use Types [...] (Ultram) 50 MG tablet Please sent to [facility]/pharmacy #[id number] [place], [place] - [address] [place] [address] documented in this encounter Plan of Treatment Upcoming Encounters Date Type Department Care Team (Late st Contact Info) Description 04/13/2025 2:15 PM EDT Office Visit [facility] [address] [place], [place] [phone] Ernie Noriega MD [address] [place] [address] documented as of this encounter Visit Diagnoses Not on filedocumented in this encounter Additional Health Concerns Assessment Noted Time PHQ-9 Depression Total Score: 0 12/02/19 23 2:38 PM EST documented as of this encounter Care Teams Concrete Rubber Relationship Specialty Start Date End Date Ernie Noriega MD [address] [place], [place] [phone] PCP - General Internal Medicine 08/25/19 documented as of this encounter
--- OUTSIDE RECORDS SUMMARY | 2025-01-13 12:40 | XMS_ITS | Encounter Summary ---
Author Organization [employer] Address [address] [place] [address] [address] [place] [address] Care Team Providers Care Train Station Server Name Role Phone Ernie Noriega MD Primary Care Provide r Reason for Visit * Reason Comments Med Refill Encounter Details Date Type Department Care Team ([facility] st Contact Info) Description 12/25/2023 Refill [facility] MED[facility]INE 230 [place], [place] [phone] Ernie Noriega MD 230 [place], [place] [phone] Pain; Primary hypertension; Seasonal allergies Social History [...] Visit [facility] MED[facility]INE 230 [place] [address] Ernie Noriega MD 230 [place] [address] documented as of this encounter Visit Diagnoses Diagnosis Pain Generalized pain Primary hypertension Unspecified essential hypertension Seasonal allergies Allergic rhinitis, cause unspecified documented in this encounter Additional Health Concerns Assessment Noted Time PHQ-9 Depression Total Score: 0 12/02/19 23 2:38 PM EST documented as of this encounter Care Teams Train Station Server Relationship Specialty Start Date End Date Ernie Noriega MD 230 [place] [address] PCP - General Internal Medicine 08/25/19 documented as of this encounter
--- OUTSIDE RECORDS SUMMARY | 2025-01-13 12:40 | XMS_ITS | Patient Health Record ---
Author Organization [facility] Address [address] [place] [address] Care Team Providers Care Tax Evaluator Name Role Phone Milton Ro MD, Ernie Primary Care Provide r Rodrick Juarez Unavailable [phone] Allergies No Known Allergies Results Component Value Reference Range Notes Pathology (Not yet reviewed by provider) Interpretation: Performing Lab:[facility], [address] [place] [id number] Notes/Report: Name: Ishmael Julien Age/Sex: 58/F : 1965 Unit#: [id number] Attend Dr: Rodrick Millan Re03/18/24 Status : [facility] Location: [facility] Disch: SPEC : [id number] REC STATUS: RUBY GILLESPIE NUM: [id number] SANDEEP: 03/18/24 [facility] DR: Rodrick Millan ENTERED: 03/18/24-06 22 [...] A. CEDS Copies To: Ernie Merritt MD [address] [place] [address] [phone] Rodrick Millan [address] [place] [address] [address] [place] [address] Signed (si gnature on file) Donna Antwerp 03/22/24 1450 END OF REPORT Reason For [...] as needed Inhalation every 4 hrs Active Tmoixkhfrd-Dhekcmj-Mryukgen 50-325-40 MG 1 capsule as needed Orally [...] Problem Status W/U Status Risk Notes Problem 145504962 Colon cancer screening (Z12.11) Active confirmed Problem Diverticular disease of colon (463863916) Diverticulosis of large intestine without perforation or abscess without bleeding (K57.30) Active confirmed Problem 948871171578806 Preprocedural examination (Z01.818) Active confirmed Problem 053351793 Encounter for long-term (current) use of NSAIDs (Z79.1) Active confirmed Encounters Encounter Location Date Provider Diagnosis [facility] Outpatient [address] [place], [place] [phone] 03/18/2024 Rodrick Millan Encounter for screen ing colonoscopy Z12.11 ; Colon polyps K63.5 ; Diverticulosis of large intestine without perforation or abscess without bleeding K57.30 and Internal hemorrhoids K64.8 [facility] [address] [place] [address] 03/17/2024 Rodrick Millan Assessments Encounter Date Diagnosis [...] Start Date Coverage End Date MEDICAID OF [employer] [address] [place] [address] [phone] [id number] JULIEN ISHMAEL Self - patient is the insured Medical (General) History Medical History History ICD Code Denies [place],DM,CVA,renal disease Asthma Depression/anxiety Hypertension Negative screening colonoscopy in 06/2013 Arthritis/Body aches Surgical History Surgery Date(Month/Year) Back surgery for disc disease Bilateral carpal tunnel Left shoulder C-spine disc surgery Bilateral knee replacements Might be having a left shoulder replacem ent as of the 07/2023 OV
--- OUTSIDE RECORDS SUMMARY | 2025-01-13 12:40 | XMS_ITS ---
Author Organization [facility] Address [address] [place] [address] Care Team Providers Care Clinical Consultant Name Role Phone Milton Ro MD, Ernie Primary Care Provide r Rodrick Juarez [phone] REASON FOR VISIT screening Encounters Encounter Location Date Provider Diagnosis [facility] Outpatient [address] [place], [place] [phone] 02/03/2024 Rodrick Millan Plan Of Treatment No Information Progress Notes * ISHMAEL HINOJOSADOB: 3 (59 yo F)Acc No.[id number]:02/03/2024 COLON WITH MAC Patient:?ISHMAEL HINOJOSA Provider:?Rodrick Millan MD :1965???Age:58 Y???Sex:Female D ate:02/03/2024 Address:[address] [place], [place] [address]PEPE NEIL Megan [id number] Pcp:Ernie bonilla MD Subjective: * Chief Complaints: [...] Millan MD Date:? 024 Generated for Printi ng/Faxing/eTransmitting on:?01/13/2025 12:40 PM EDT
--- OUTSIDE RECORDS SUMMARY | 2025-01-13 12:40 | XMS_ITS | Encounter Summary ---
Author Organization [employer] Address [address] [place] [address] 7t [place] [address] Care Team Providers Care Ocular Care Aide Name Role Phone Ernie Noriega MD Primary Care Provide r Reason for Visit * Reason Comments Med Refill Encounter Details Date Type Department Care Team ([facility] st Contact Info) Description 10/11/2023 Refill [facility] MED[facility] [address] [place] [address] Ernie Noriega MD [address] [place] [address] Social History Tobacco Use Types Packs/Day Years [...] Visit [facility] MEDICINE [address] [place] [address] Ernie Noriega MD [address] [place] [address] documented as of this encounter Visit Diagnoses Not on filedocumented in this encounter Additional Health Concerns Assessment Noted Time PHQ-9 Depression Total Score: 0 12/02/19 23 2:38 PM EST documented as of this encounter Care Teams Ocular Care Aide Relationship Specialty Start Date End Date Ernie Noriega MD [address] [place] [address] PCP - General Internal Medicine 08/25/19 documented as of this encounter
--- OUTSIDE RECORDS SUMMARY | 2025-01-13 12:40 | XMS_ITS | Encounter Summary ---
Author Organization [employer] Address [address] [place] [address] 7 [place] [address] Care Team Providers Care Reference Librarian Name Role Phone Ernie Noriega MD Primary Care Provide r Reason for Visit * Reason Onset Date Comments Med Refill 11/17/2024 Encounter Details Date Type Department Care Team ([facility] st Contact Info) Description 11/17/2024 Refill [facility] MEDICINE [address] [place] [address] Ernie Noriega MD [address] [place] [address] Seasonal allergies Social History Tobacco Use Types [...] Description 04/13/2025 2:15 PM EDT Office Visit [facility] MED[facility] [address] [place] [address] Ernie Noriega MD [address] [place] [address] documented as of this encounter Visit Diagnoses Diagnosis Seasonal allergies Allergic rhinitis, cause unspecified documented in this encounter Additional Health Concerns Assessment Noted Time PHQ-9 Depression Total Score: 2 01/21/20 24 1:25 PM EDT documented as of this encounter Care Teams Reference Librarian Relationship Specialty Start Date End Date Ernie Noriega MD [address] [place] [address] PCP - General Internal Medicine 08/25/19 documented as of this encounter
--- OUTSIDE RECORDS SUMMARY | 2025-01-13 12:40 | XMS_ITS | Encounter Summary ---
Author Organization [employer] Address [address] [place] [address] 7 [place] [address] Care Team Providers Care Right Of Way Maintenance Supervisor Name Role Phone Ernie Noriega MD Primary Care Provide r Reason for Visit * Reason Onset Date Comments Med Refill 11/03/2023 Encounter Details Date Type Department Care Team ([facility] st Contact Info) Description 11/03/2023 Refill [facility] 230 [place] [address] Ernie Noriega MD [address] [place] [address] Seasonal allergies Social History Tobacco Use Types [...] 2:15 PM EDT Office Visit [facility] [address] [place] [address] Ernie Noriega MD [address] [place] [address] documented as of this encounter Visit Diagnoses Diagnosis Seasonal allergies Allergic rhinitis, cause unspecified documented in this encounter Additional Health Concerns Assessment Noted Time PHQ-9 Depression Total Score: 0 12/02/19 23 2:38 PM EST documented as of this encounter Care Teams Right Of Way Maintenance Supervisor Relationship Specialty Start Date End Date Ernie Noriega MD [address] [place] [address] PCP - General Internal Medicine 08/25/19 documented as of this encounter
--- OUTSIDE RECORDS SUMMARY | 2025-01-13 12:40 | XMS_ITS | Encounter Summary ---
Author Organization [employer] Address [address] [place] [address] 7 [place] [address] Care Team Providers Care Subway Car Repairer Name Role Phone Ernie Noriega MD Primary Care Provide r Reason for Visit * Reason Onset Date Comments Medication Question 10/03/2022 returning call 10/03/2022 Encounter Details Date Type Department Care Team ([facility] st Contact Info) Description 10/03/2022 Telephone [facility] [address] [place] [address] Ernie Noriega MD [address] [place] [address] Medication Question; returning call Social History Tobacco [...] pt returning call Please contact pt at [phone] * Telephone Encounter - Peg Scott RN - 10/10/2022 11:17 AM EST T/C placed to pt x2AM re below message. No answer, left v/m. Will retask to [facility] for third attempt. * Telephone Encounter - Peg Scott RN - 10/08/2022 3:32 PM EST Incoming T/C from Sylvia CAMARILLO from [facility]. She states spoke with MEDICAL OFFICER who saw pt 09/24. It is not in the OV note (which is located in Epic under Media tab) but that pt reported pain during appt and MEDICAL OFFICER advised pt speak to her PCP and [...] next month with PCP. Will send to [facility] to attempt second call. Al;so sending to PCP as FYI. * Telephone Encounter - Peg Scott RN - 10/08/2022 10:34 AM EST Reviewed most recent note from [facility] note. No mention of increased dose. T/C placed to them who stated they don't see anything but will send message to provider who is out onvacation and will be back next week. Provided my direct ext for call back. * Telephone Encounter - Marjorie Bass - 10/03/2022 10:42 AM EST Tc from pt calling to inform was told by her [facility] DR to request [...] Office Visit [facility] [address] [facility] [place] [address] Ernie Noriega MD [address] [place] [address] documented as of this encounter Visit Diagnoses Not on filedocumented in this encounter Care Teams Subway Car Repairer Relationship Specialty Start Date End Date Ernie Noriega MD [address] [facility] [place] [address] PCP - General Internal Medicine 08/25/19 documented as of this encounter
--- OUTSIDE RECORDS SUMMARY | 2025-01-13 12:40 | XMS_ITS | Encounter Summary ---
Author Organization [employer] Address [address] [place] [address] 7t [place] [address] Care Team Providers Care Post Tronic Machine Operator Name Role Phone Ernie Noriega MD Primary Care Provide r Reason for Visit * Reason Onset Date Comments Med Refill 09/28/2024 Encounter Details Date Type Department Care Team ([facility] st Contact Info) Description 09/28/2024 Refill [facility] MEDICINE [address] [place] [address] Ernie Noriega MD [address] [place] [address] Primary osteoarthritis of knee, unspecified laterality Social [...] Description 04/13/2025 2:15 PM EDT Office Visit [facility] MEDIC[facility] [address] [place] [address] Ernie Noriega MD [address] [place] [address] documented as of this encounter Visit Diagnoses Diagnosis Primary osteoarthritis of knee, unspecified laterality documented in this encounter Additional Health Concerns Assessment Noted Time PHQ-9 Depression Total Score: 2 01/21/20 24 1:25 PM EDT documented as of this encounter Care Teams Post Tronic Machine Operator Relationship Specialty Start Date End Date Ernie Noriega MD [address] [place] [address] PCP - General Internal Medicine 08/25/19 documented as of this encounter
--- OUTSIDE RECORDS SUMMARY | 2025-01-13 12:40 | XMS_ITS | Encounter Summary ---
Author Organization [employer] [facility] Address [address] [place] [address] 7t [place] [address] Care Team Providers Care Spa Director Name Role Phone Ernie Noriega MD Primary Care Provide r Encounter Details Date Type Department Care Team (Latest Contact Info) Description 06/19/2022 Abstract [facility] CONVERSIONS Dental, Provider, DDS Social History [...] [facility] MEDICINE 230 [place] [address] Ernie Noriega MD [address] [place] [address] documented as of this encounter Visit Diagnoses Not on filedocumented in this encounter Care Teams Spa Director Relationship Specialty Start Date End Date Ernie Noriega MD [address] [place] [address] PCP - General Internal Medicine 08/25/19 documented as of this encounter
--- OUTSIDE RECORDS SUMMARY | 2025-01-13 12:41 | XMS_ITS | Encounter Summary ---
Author Organization [employer] Address [address] [place] [address] 7 [place] [address] Care Team Providers Care Utilities Estimator And Drafter Name Role Phone Ernie Noriega MD Primary Care Provide r Reason for Visit * Reason Onset Date Comments Med Refill 10/12/2024 Encounter Details Date Type Department Care Team ([facility] st Contact Info) Description 10/12/2024 Refill [facility] MEDICINE [address] [place] [address] Ernie Noriega MD [address] [place] [address] Primary osteoarthritis of knee, unspecified laterality Social [...] Description 04/13/2025 2:15 PM EDT Office Visit [facility] MEDICINE [address] [place] [address] Ernie Noriega MD [address] [place] [address] documented as of this encounter Visit Diagnoses Diagnosis Primary osteoarthritis of knee, unspecified laterality documented in this encounter Additional Health Concerns Assessment Noted Time PHQ-9 Depression Total Score: 2 01/21/20 24 1:25 PM EDT documented as of this encounter Care Teams Utilities Estimator And Drafter Relationship Specialty Start Date End Date Ernie Noriega MD [address] [place] [address] PCP - General Internal Medicine 08/25/19 documented as of this encounter
--- OUTSIDE RECORDS SUMMARY | 2025-01-13 12:41 | XMS_ITS | Encounter Summary ---
Author Organization [employer] Address [address] [place] [address] 7 [place] [address] Care Team Providers Care Road Consultant Name Role Phone Ernie Noriega MD Primary Care Provide r Reason for Visit * Reason Onset Date Comments Med Refill 09/28/2024 Encounter Details Date Type Department Care Team ([facility] Contact Info) Description 09/28/2024 Telephone [facility] MEDICINE 230 [place] [address] Ernie Noriega MD [address] [place] [address] Med Refill Social History Tobacco Use Types [...] 300 MG capsule To be sent to: [facility]/pharmacy [address] [place] [address] documented in this encounter Plan of Treatment Upcoming Encounters Date Type Department Care Team (Late st Contact Info) Description 04/13/2025 2:15 PM EDT Office Visit [facility] MEDICINE [address] [place] [address] Ernie Noriega MD [address] [place], [place] [phone] documented as of this encounter Visit Diagnoses Not on filedocumented in this encounter Additional Health Concerns Assessment Noted Time PHQ-9 Depression Total Score: 2 01/21/20 24 1:25 PM EDT documented as of this encounter Care Teams Road Consultant Relationship Specialty Start Date End Date Ernie Noriega MD [address] [place] [address] PCP - General Internal Medicine 08/25/19 documented as of this encounter
--- OUTSIDE RECORDS SUMMARY | 2025-01-13 12:41 | XMS_ITS ---
Author Organization [facility] Address [address] [place] [address] Care Team Providers Care Early Childhood Associate Teacher Name Role Phone Milton Ro MD, Ernie Primary Care Provide r Rodrick Juarez [phone] REASON FOR VISIT PROCEDURE TOMORROW Encounters Encounter Location Date Provider Diagnosis [facility] [address] [place] [address] 03/17/2024 Rodrick Millan Plan Of Treatment No Information Progress Notes * ISHMAEL HINOJOSADOB: 3 (58 yo F)Acc No.[id number]:03/17/2024 Patient:?ISHMAEL HINOJOSA :1965???Age:58 Y???Sex:Female Address:[address] [place], [address] * true * Date:? Generated for Gonzálezi pietro/Jean-Paul/eTransmitting on:?01/13/2025 12:40 PM EDT
--- OUTSIDE RECORDS SUMMARY | 2025-01-13 12:41 | XMS_ITS | Encounter Summary ---
Author Organization [employer] Address [address] [place] [address] 7t [place] [address] Care Team Providers Care Computer Art Instructor Name Role Phone Ernie Noriega MD Primary Care Provide r Reason for Visit * Reason Onset Date Comments verbal order 11/21/2022 Encounter Details Date Type Department Care Team (Late Contact Info) Description 11/21/2022 Telephone [facility] MEDICINE [address] [place] [address] Ernie Noriega MD [address] [place] [address] verbal order Social History Tobacco Use Types [...] 1:08 PM EST Tc from Baldemar from [facility] calling to inform pt started home services today . Baldemar is also requesting a verbal order for pt to start physical therapy for 2x a week for 4 weeks . Best contact # [phone]. documented in this encounter Plan of Treatment Upcoming Encounters Date Type Department Care Team (Late Contact Info) Description 04/13/2025 2:15 PM EDT Office Visit [facility] 230 [facility] [place] [address] Ernie Noriega MD [address] [place] [address] documented as of this encounter Visit Diagnoses Not on filedocumented in this encounter Care Teams Computer Art Instructor Relationship Specialty Start Date End Date Ernie Noriega MD [facility] [place] [address] PCP - General Internal Medicine 08/25/19 documented as of this encounter
== END 2025-01-13 11:24 | disposition home or self-care (01) ==
LOC: HO.PMC 10:55
PROVIDERS: PCP Internal Medicine; Visit Provider Nurse Practitioner Family
DX: M48.061 Spinal stenosis, lumbar region without neurogenic claudication (principal); M54.50 Low back pain, unspecified; G89.29 Other chronic pain; M96.1 Postlaminectomy syndrome, not elsewhere classified; M43.15 Spondylolisthesis, thoracolumbar region; G96.198 Other disorders of meninges, not elsewhere classified
CPT/HCPCS: 99214

== ENCOUNTER → 2025-01-13 10:55 | Outpatient (BNVA) | payer MEDICAID, SELFPAY | PROVIDERS: PCP Internal Medicine; Visit Provider Nurse Practitioner Family | DX: M48.061 Spinal stenosis, lumbar region without neurogenic claudication (principal); M54.50 Low back pain, unspecified; M96.1 Postlaminectomy syndrome, not elsewhere classified; M43.15 Spondylolisthesis, thoracolumbar region; G96.198 Other disorders of meninges, not elsewhere classified; G89.29 Other chronic pain; Z79.891 Long term (current) use of opiate analgesic | CPT/HCPCS: 99212 ==

== ENCOUNTER 2025-01-25 08:35 | Outpatient (REF) | payer MEDICAID, SELFPAY ==
--- OUTSIDE RECORDS SUMMARY | 2025-01-25 08:56 | XMS_ITS | Encounter Summary ---
Author Organization [employer] Address [address] [place] [address] 7t [place] [address] Care Team Providers Care Electrical Design Technologist Name Role Phone Ernie Noriega MD Primary Care Provide r Reason for Visit * Reason Onset Date Comments Med Refill 11/04/2023 Encounter Details Date Type Department Care Team ([facility] st Contact Info) Description 11/04/2023 Refill [facility] [address] [place] [address] Ernie Noriega MD [address] [place] [address] Pain Social History Tobacco Use Types Packs/Day [...] 2:15 PM EDT Office Visit [facility] MEDICINE [address] [place] [address] Ernie Noriega MD [address] [place] [address] documented as of this encounter Visit Diagnoses Diagnosis Pain Generalized pain documented in this encounter Additional Health Concerns Assessment Noted Time PHQ-9 Depression Total Score: 0 12/02/19 23 2:38 PM EST documented as of this encounter Care Teams Electrical Design Technologist Relationship Specialty Start Date End Date Ernie Noriega MD [address] [place] [address] PCP - General Internal Medicine 08/25/19 documented as of this encounter
--- OUTSIDE RECORDS SUMMARY | 2025-01-25 08:56 | XMS_ITS | Encounter Summary ---
Author Organization [employer] Address [address] [place] [address] 7t [place] [address] Care Team Providers Care Fund Director Name Role Phone Ernie Noriega MD Primary Care Provide r Reason for Visit * Reason Comments Med Refill Encounter Details Date Type Department Care Team ([facility] st Contact Info) Description 10/16/2023 Refill [facility] [address] [place], [place] [phone] Ernie Noriega MD 230 [place] [address] Pain Social History Tobacco Use Types Packs/Day [...] 2:15 PM EDT Office Visit [facility] MED[facility] [address] [place] [address] Ernie Noriega MD 230 [place] [address] documented as of this encounter Visit Diagnoses Diagnosis Pain Generalized pain documented in this encounter Additional Health Concerns Assessment Noted Time PHQ-9 Depression Total Score: 0 12/02/19 23 2:38 PM EST documented as of this encounter Care Teams Fund Director Relationship Specialty Start Date End Date Ernie Noriega MD 230 [place] [address] PCP - General Internal Medicine 08/25/19 documented as of this encounter
--- OUTSIDE RECORDS SUMMARY | 2025-01-25 08:56 | XMS_ITS | Encounter Summary ---
Author Organization [employer] Address [address] [place] [address] 7 [place] [address] Care Team Providers Care Data Administrator Name Role Phone Ernie Noriega MD Primary Care Provide r Reason for Visit * Reason Onset Date Comments Med Refill 10/25/2023 Encounter Details Date Type Department Care Team ([facility] st Contact Info) Description 10/25/2023 Refill [facility] MED[facility]INE [address] [place] [address] Ernie Noriega MD [address] [place] [address] Social History Tobacco Use Types Packs/Day Years [...] Description 04/13/2025 2:15 PM EDT Office Visit [facility] [address] [place] [address] Ernie Noriega MD [address] [place] [address] documented as of this encounter Visit Diagnoses Not on filedocumented in this encounter Additional Health Concerns Assessment Noted Time PHQ-9 Depression Total Score: 0 12/02/19 23 2:38 PM EST documented as of this encounter Care Teams Data Administrator Relationship Specialty Start Date End Date Ernie Noriega MD [address] [place] [address] PCP - General Internal Medicine 08/25/19 documented as of this encounter
--- OUTSIDE RECORDS SUMMARY | 2025-01-25 08:56 | XMS_ITS | Encounter Summary ---
Author Organization [employer] Address [address] [place] [address] 7t [place] [address] Care Team Providers Care Chro Name Role Phone Ernie Noriega MD Primary Care Provide r Reason for Visit * Reason Onset Date Comments Med Refill 08/12/2024 Encounter Details Date Type Department Care Team ([facility] st Contact Info) Description 08/12/[address] [facility] MED[facility]INE [address] [place] [address] Ilsa Robison, ANP 230 [place] [address] Primary osteoarthritis of knee, unspecified laterality Social [...] Description 04/13/2025 2:15 PM EDT Office Visit [facility] [address] [place] [address] Ernie Noriega MD [address] [place] [address] documented as of this encounter Visit Diagnoses Diagnosis Primary osteoarthritis of knee, unspecified laterality documented in this encounter Additional Health Concerns Assessment Noted Time PHQ-9 Depression Total Score: 2 01/21/20 24 1:25 PM EDT documented as of this encounter Care Teams Chro Relationship Specialty Start Date End Date Ernie Noriega MD [address] [place] [address] PCP - General Internal Medicine 08/25/19 documented as of this encounter
--- OUTSIDE RECORDS SUMMARY | 2025-01-25 08:56 | XMS_ITS | Encounter Summary ---
Author Organization [employer] Address [address] [place] [address] 7t [place] [address] Care Team Providers Care Mix Maker Name Role Phone Ernie Noriega MD Primary Care Provide r Reason for Visit * Reason Onset Date Comments Med Refill 10/25/2024 Encounter Details Date Type Department Care Team ([facility] st Contact Info) Description 10/25/2024 Refill [facility] MED[facility]INE [address] [place] [address] Ernie Noriega MD [address] [place] [address] Chronic midline low back pain without sciatica [...] Description 04/13/2025 2:15 PM EDT Office Visit [facility] MEDICINE [address] [place] [address] Ernie Noriega MD [address] [place] [address] documented as of this encounter Visit Diagnoses Diagnosis Chronic midline low back pain without sciatica documented in this encounter Additional Health Concerns Assessment Noted Time PHQ-9 Depression Total Score: 2 01/21/20 24 1:25 PM EDT documented as of this encounter Care Teams Mix Maker Relationship Specialty Start Date End Date Ernie Noriega MD [address] [place] [address] PCP - General Internal Medicine 08/25/19 documented as of this encounter
--- OUTSIDE RECORDS SUMMARY | 2025-01-25 08:56 | XMS_ITS | Encounter Summary ---
Author Organization [employer] Address [address] [place] [address] 7t [place] [address] Care Team Providers Care Ammonia Worker Name Role Phone Ernie Noriega MD Primary Care Provide r Reason for Visit * Reason Onset Date Comments Med Refill 10/25/2023 Encounter Details Date Type Department Care Team ([facility] st Contact Info) Description 10/25/2023 Refill [facility] [address] [place] [address] Perlita Woody MD [address] [place] [address] Primary hypertension Social History Tobacco Use Types [...] Description 04/13/2025 2:15 PM EDT Office Visit [facility] MED[facility] [address] [place] [address] Ernie Noriega MD [address] [place] [address] documented as of this encounter Visit Diagnoses Diagnosis Primary hypertension Unspecified essential hypertension documented in this encounter Additional Health Concerns Assessment Noted Time PHQ-9 Depression Total Score: 0 12/02/19 23 2:38 PM EST documented as of this encounter Care Teams Ammonia Worker Relationship Specialty Start Date End Date Ernie Noriega MD [address] [place] [address] PCP - General Internal Medicine 08/25/19 documented as of this encounter
--- OUTSIDE RECORDS SUMMARY | 2025-01-25 08:56 | XMS_ITS | Encounter Summary ---
Author Organization [employer] Address [address] [place] [address] 7t [place] [address] Care Team Providers Care Log Chipper Operator Name Role Phone Ernie Noriega MD Primary Care Provide r Reason for Visit * Reason Onset Date Comments Med Refill 10/27/2023 Encounter Details Date Type Department Care Team ([facility] st Contact Info) Description 10/27/2023 Refill [facility] [address] [place] [address] Ernie Noriega MD [address] [place] [address] Seasonal allergies; Pain Social History Tobacco Use [...] 2:15 PM EDT Office Visit [facility] [address] [place] [address] Ernie Noriega MD [address] [place] [address] documented as of this encounter Visit Diagnoses Diagnosis Seasonal allergies Allergic rhinitis, cause unspecified Pain Generalized pain documented in this encounter Additional Health Concerns Assessment Noted Time PHQ-9 Depression Total Score: 0 12/02/19 23 2:38 PM EST documented as of this encounter Care Teams Log Chipper Operator Relationship Specialty Start Date End Date Ernie Noriega MD [address] [place] [address] PCP - General Internal Medicine 08/25/19 documented as of this encounter
--- OUTSIDE RECORDS SUMMARY | 2025-01-25 08:56 | XMS_ITS | Encounter Summary ---
Author Organization [employer] [facility] Address [address] [place] [address] 7t [place] [address] Care Team Providers Care Manager Federal Name Role Phone Ernie Noriega MD Primary Care Provide r Encounter Details Date Type Department Care Team (Latest Contact Info) Description 06/19/[address] [facility] CONVERSIONS Dental, Provider, DDS Social History [...] EDT Office Visit [facility] MED[facility] 230 [place] [address] Ernie Noriega MD 230 [place] [address] documented as of this encounter Visit Diagnoses Not on filedocumented in this encounter Care Teams Manager Federal Relationship Specialty Start Date End Date Ernie Noriega MD [address] [place] [address] PCP - General Internal Medicine 08/25/19 documented as of this encounter
--- OUTSIDE RECORDS SUMMARY | 2025-01-25 08:56 | XMS_ITS | Encounter Summary ---
Author Organization [employer] Address [address] [place] [address] 7t [place] [address] Care Team Providers Care Equity Director Name Role Phone Ernie Noriega MD Primary Care Provide r Reason for Visit * Reason Onset Date Comments Med Refill 01/10/2025 Encounter Details Date Type Department Care Team ([facility] st Contact Info) Description 01/10/2025 Refill [facility] MEDICINE 230 [place] [address] Ernie Noriega MD [address] [place] [address] Primary osteoarthritis of knee, unspecified laterality Social [...] 2:15 PM EDT Office Visit [facility] MEDICINE [address] [place] [address] Ernie Noriega MD [address] [place] [address] documented as of this encounter Visit Diagnoses Diagnosis Primary osteoarthritis of knee, unspecified laterality documented in this encounter Additional Health Concerns Assessment Noted Time PHQ-9 Depression Total Score: 2 01/21/20 24 1:25 PM EDT documented as of this encounter Care Teams Equity Director Relationship Specialty Start Date End Date Ernie Noriega MD [address] [place] [address] PCP - General Internal Medicine 08/25/19 documented as of this encounter
--- OUTSIDE RECORDS SUMMARY | 2025-01-25 08:56 | XMS_ITS | Encounter Summary ---
Author Organization [employer] Address [address] [place] [address] 7t [place] [address] Care Team Providers Care Supply Chain Business Analyst Name Role Phone Ernie Noriega MD Primary Care Provide r Reason for Visit * Reason Onset Date Comments Med Refill 03/15/2024 Encounter Details Date Type Department Care Team ([facility] st Contact Info) Description 03/15/[address] [facility] MEDICINE 230 [place] [address] Ofelia Melgar MD [address] [place] [address] Chronic midline low back pain without sciatica; [...] Visit [facility] MEDICINE [address] [place] [address] Ernie Noriega MD [address] [place] [address] documented as of this encounter Visit Diagnoses Diagnosis Chronic midline low back pain without sciatica Cervical radiculopathy Brachial neuritis or radiculitis nos documented in this encounter Additional Health Concerns Assessment Noted Time PHQ-9 Depression Total Score: 2 01/21/20 24 1:25 PM EDT documented as of this encounter Care Teams Supply Chain Business Analyst Relationship Specialty Start Date End Date Ernie Noriega MD 230 [place] [address] PCP - General Internal Medicine 08/25/19 documented as of this encounter
--- OUTSIDE RECORDS SUMMARY | 2025-01-25 08:56 | XMS_ITS | Encounter Summary ---
Author Organization [employer] Address [address] [place] [address] 7t [place] [address] Care Team Providers Care Business Development Name Role Phone Ernie Noriega MD Primary Care Provide r Reason for Visit * Reason Onset Date Comments Med Refill 04/24/2024 Encounter Details Date Type Department Care Team ([facility] st Contact Info) Description 04/24/2024 Refill [facility] MEDICINE [address] [place] [address] Ernie Noriega MD [address] [place] [address] Essential hypertension Social History Tobacco Use Types [...] Description 04/13/2025 2:15 PM EDT Office Visit [facility] MEDICINE [address] [place] [address] Ernie Noriega MD [address] [place] [address] documented as of this encounter Visit Diagnoses Diagnosis Essential hypertension Unspecified essential hypertension documented in this encounter Additional Health Concerns Assessment Noted Time PHQ-9 Depression Total Score: 2 01/21/20 24 1:25 PM EDT documented as of this encounter Care Teams Business Development Relationship Specialty Start Date End Date Ernie Noriega MD [address] [place] [address] PCP - General Internal Medicine 08/25/19 documented as of this encounter
--- OUTSIDE RECORDS SUMMARY | 2025-01-25 08:56 | XMS_ITS | Encounter Summary ---
Author Organization [employer] Address [address] [place] [address] 7t [place] [address] Care Team Providers Care General Practice Name Role Phone Ernie Noriega MD Primary Care Provide r Reason for Visit * Reason Onset Date Comments Med Refill 01/26/2024 Encounter Details Date Type Department Care Team ([facility] st Contact Info) Description 01/26/2024 Refill [facility] MEDICINE 230 [place] [address] Ilsa Robison, ANP 230 [place] [address] Chronic midline low back pain without sciatica; [...] Description 04/13/2025 2:15 PM EDT Office Visit [facility] MED[facility] [address] [place] [address] Ernie Noriega MD [address] [place] [address] documented as of this encounter Visit Diagnoses Diagnosis Chronic midline low back pain without sciatica Cervical radiculopathy Brachial neuritis or radiculitis nos documented in this encounter Additional Health Concerns Assessment Noted Time PHQ-9 Depression Total Score: 2 01/21/20 24 1:25 PM EDT documented as of this encounter Care Teams General Practice Relationship Specialty Start Date End Date Ernie Noriega MD [address] [place] [address] PCP - General Internal Medicine 08/25/19 documented as of this encounter
--- OUTSIDE RECORDS SUMMARY | 2025-01-25 08:56 | XMS_ITS | Encounter Summary ---
Author Organization [employer] Address [address] [place] [address] 7t [place] [address] Care Team Providers Care Bean Sprout Grower Name Role Phone Ernie Noriega MD Primary Care Provide r Reason for Visit * Reason Onset Date Comments Med Refill 06/25/2024 Encounter Details Date Type Department Care Team ([facility] st Contact Info) Description 06/25/2024 Refill [facility] MEDICINE [address] [place] [address] Ernie Noriega MD 230 [place] [address] Chronic midline low back pain without sciatica; [...] Description 04/13/2025 2:15 PM EDT Office Visit [facility] MEDICINE [address] [place] [address] Ernie Noriega MD [address] [place] [address] documented as of this encounter Visit Diagnoses Diagnosis Chronic midline low back pain without sciatica Cervical radiculopathy Brachial neuritis or radiculitis nos documented in this encounter Additional Health Concerns Assessment Noted Time PHQ-9 Depression Total Score: 2 01/21/20 24 1:25 PM EDT documented as of this encounter Care Teams Bean Sprout Grower Relationship Specialty Start Date End Date Ernie Noriega MD [address] [place] [address] PCP - General Internal Medicine 08/25/19 documented as of this encounter
--- OUTSIDE RECORDS SUMMARY | 2025-01-25 08:56 | XMS_ITS | Clinical Summary ---
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); H/O cervical spine surgery 12/13/2024 Telephone [facility] [address] [place] [address] Christopher Peres MD 12/08/2024 Telephone [facility] [address] [place] [address] Christopher Peres MD 11/01/2024 Orders Only [facility] - External Imaging [address] [place] [address] Radiology, External from Last 3 Months Social [...] Info) Description 03/14/2025 3:00 PM EDT Follow-Up [facility] [address] [place] [address] Christopher Peres MD [address] [place], [place] [phone] Health Maintenance Due Date Last Done Comments [...] complete this topic Procedures * Due to [place] [employer] law, this organization might not be sharing [...] Last 3 Months Results * Due to [place] [employer] law, this organization might not be sharing negative HIV tests. * MRI Cervical Spine WO Contrast (12/21/2024 7:55 AM EDT) Anatomical Region Laterality Modality Spine, C-spine Magnetic Resonan ce 12/21/2024 7:30 AM EDT Narrative 12/22/2024 2:31 PM EDT [facility] Accession Number: [id number] Patient Name: Miguelina Julien Date of : 1965 Date of Exam: 12-21-2024 Referring Physician: Christopher Peres ?[facility] ?[address] [place] [address] ?[place] [address] Exam: MR Cervical Spine (C-) CPT 34531 Room Description: [facility] 1.5 MR Cervical Spine (C-) CPT 73135 INDICATION: previous C spine surgery, appears tight on MRI T spine post form remover ?? TECHNIQUE: Multiplanar, multisequence MRI of the [...] MD Procedure Note Provider, Porsche - 12/22/2024 [facility] Accession Number: [id number] Patient Name: Miguelina Julien Date of : 1965 Date of Exam: 12-21-2024 Referring Physician: Christopher Peres [place] [address] Exam: MR Cervical Spine (C-) CPT 93173 Room Description: [facility] 1.5 MR Cervical Spine (C-) CPT 83626 INDICATION: previous C spine surgery, appears tight on MRI T spine post form remover TECHNIQUE: Multiplanar, multisequence MRI of the cervical [...] obtain the completed interpretation. ? Workstation ID: [id number] Narrative 12/14/2024 5:30 PM EST COMPARISON: There are no prior studies available for comparison at this time. Resulting Agency Comment [id number] Procedure Note Stone Reid MD - 12/14/2024 [...] possible to obtain thecompleted interpretation. Workstation ID: [id number] us Christopher Peres MD IMG XR PROCEDURES [...] obtain the completed interpretation. ? Workstation ID: [id number] Narrative 12/14/2024 5:30 PM EST COMPARISON: There are no prior studies available for comparison at this time. Resulting Agency Comment [id number] Procedure Note Stone Reid MD - 12/14/2024 [...] possible to obtain thecompleted interpretation. Workstation ID: [id number] us Christopher Peres MD IMG XR PROCEDURES Final Res ult * MRI Thoracic and Lumbar Spine, Outside Result (11/01/2024) Anatomical Region Laterality Modality Other 11/01/2024 us Onbase Scan Carol AMB EXTERNAL RESULT PROCEDURE S Final Result from Last [address] [place], [place] [address] [address] [place] Care Teams Front Office Director Relationship Specialty Start Date End Date Ernie Merritt [address] [place] [address] PCP - General Internal Medicine 11/29/24
--- OUTSIDE RECORDS SUMMARY | 2025-01-25 08:56 | XMS_ITS | Encounter Summary ---
Author Organization [employer] Address [address] [place] [address] 7t [place] [address] Care Team Providers Care Box Truck Owner Operator Name Role Phone Ernie Noriega MD Primary Care Provide r Reason for Visit * Reason Onset Date Comments Med Refill 10/27/2023 Encounter Details Date Type Department Care Team ([facility] st Contact Info) Description 10/27/2023 Refill [facility] [address] [place] [address] Perlita Woody MD [address] [place] [address] Primary hypertension Social History Tobacco Use Types [...] 04/13/2025 2:15 PM EDT Office Visit [facility] MEDICINE [address] [place] [address] Ernie Noriega MD [address] [place] [address] documented as of this encounter Visit Diagnoses Diagnosis Primary hypertension Unspecified essential hypertension documented in this encounter Additional Health Concerns Assessment Noted Time PHQ-9 Depression Total Score: 0 12/02/19 23 2:38 PM EST documented as of this encounter Care Teams Box Truck Owner Operator Relationship Specialty Start Date End Date Ernie Noriega MD [address] [place] [address] PCP - General Internal Medicine 08/25/19 documented as of this encounter
--- OUTSIDE RECORDS SUMMARY | 2025-01-25 08:56 | XMS_ITS | Encounter Summary ---
Author Organization [employer] [facility] Address [address] [place] [address] 7t [place] [address] Care Team Providers Care Home Health Care Provider Name Role Phone Ernie Noriega MD Primary Care Provide r Encounter Details Date Type Department Care Team (Late st Contact Info) Description 04/13/2023 Orders Only [facility] MEDICINE [address] [place] [address] [phone] Sugar Mitchell MD [address] [place] [address] [phone] Neuropathic pain of right lower extremity (Primary [...] Description 04/13/2025 2:15 PM EDT Office Visit [facility] MEDICINE [address] [place] [address] Ernie Noriega MD 230 [place], [place] [phone] documented as of this encounter Procedures Procedure Name Priority Date/Time Associated Diagnosis Comments BASIC METABOLIC PANEL Routine 05/13/2023 8:40 AM EDT Neuropathic pain of right lower extremity documented in this encounter Results * (ABNORMAL) Basic Metabolic Panel (05/13/2023 8:40 AM EDT) Sodium 141 135 - 145 mmol/L [facility] Potassium 3.5 3.3 - 5.1 mmol/L [facility] Chloride 103 96 - 108 mmol/L [facility] Carbon Dioxide 23 22 - 29 mmol/L [facility] Anion Gap 19 12 - 20 [facility] Urea Nitrogen (BUN) 15 9 - 16 mg/dL [facility] Creatinine, Serum 0.78 0.5 - 1.4 mg/dL [facility] Estimated Glomerular Filt Rate >60 [facility] Comment:NOTE: For -Am erican individuals, multiply the result by 1.210.Chronic Kidney Disease: Estimated GFR < 60 mL/min/[id number] Kidney Disease: Estimated GFR < 15 mL/min/1.73m2 Glucose 151(H) 60 - 115 mg/dL [facility] Calcium 9.3 8.4 - 10.2 mg/dL [facility] Blood Venous blood specimen / Unknown 05/13/2023 8:40 AM EDT 05/13/2023 11:14 AM EDT us Sugar Mitchell MD LAB BLOOD ORDERABLES Final Resul t [facility] [address] [place] [address] [phone] documented in this encounter Visit Diagnoses Diagnosis Neuropathic pain of right lower extremity- Primary documented in this encounter Additional Health Concerns Assessment Noted Time PHQ-9 Depression Total Score: 0 12/02/19 23 2:38 PM EST documented as of this encounter Care Teams Home Health Care Provider Relationship Specialty Start Date End Date Ernie Noriega MD [address] [place] [address] PCP - General Internal Medicine 08/25/19 documented as of this encounter
--- OUTSIDE RECORDS SUMMARY | 2025-01-25 08:56 | XMS_ITS | Encounter Summary ---
Author Organization [employer] [facility] Address [address] [place] [address] 7t [place] [address] Care Team Providers Care Factory Process Workers Name Role Phone Ernie Noriega MD Primary Care Provide r Encounter Details Date Type Department Care Team (Latest Contact Info) Description 03/07/2021 Abstract [facility] CONVERSIONS Dental, Provider, DDS Social History [...] 2:15 PM EDT Office Visit [facility] MEDICINE [address] [place] [address] Ernie Noriega MD [address] [place] [address] documented as of this encounter Visit Diagnoses Not on filedocumented in this encounter Care Teams Factory Process Workers Relationship Specialty Start Date End Date Ernie Noriega MD [address] [place] [address] PCP - General Internal Medicine 08/25/19 documented as of this encounter
--- OUTSIDE RECORDS SUMMARY | 2025-01-25 08:56 | XMS_ITS | Encounter Summary ---
Author Organization [employer] Address [address] [place] [address] 7t [place] [address] Care Team Providers Care Senior Marketing Engineer Name Role Phone Ernie Noriega MD Primary Care Provide r Reason for Visit * Reason Onset Date Comments Med Refill 11/04/2023 Encounter Details Date Type Department Care Team ([facility] st Contact Info) Description 11/04/2023 Refill [facility] MEDICINE [address] [place] [address] Ernie Noriega MD [address] [place] [address] Chronic midline low back pain without sciatica; [...] Office Visit [facility] MEDICINE [address] [place] [address] Ernie Noriega MD [address] [place] [address] documented as of this encounter Visit Diagnoses Diagnosis Chronic midline low back pain without sciatica Cervical radiculopathy Brachial neuritis or radiculitis nos Seasonal allergies Allergic rhinitis, cause unspecified documented in this encounter Additional Health Concerns Assessment Noted Time PHQ-9 Depression Total Score: 0 12/02/19 23 2:38 PM EST documented as of this encounter Care Teams Senior Marketing Engineer Relationship Specialty Start Date End Date Ernie Noriega MD [address] [place] [phone] PCP - General Internal Medicine 08/25/19 documented as of this encounter
--- OUTSIDE RECORDS SUMMARY | 2025-01-25 08:56 | XMS_ITS | Encounter Summary ---
Author Organization [employer] Address [address] [place] [address] 7 [place] [address] Care Team Providers Care In Store Marketing Representative Name Role Phone Ernie Noriega MD Primary Care Provide r Reason for Visit * Reason Onset Date Comments Med Refill 10/17/2024 Encounter Details Date Type Department Care Team ([facility] st Contact Info) Description 10/17/2024 Refill [facility] [address] [place] [address] Ernie Noriega MD [address] [place] [address] Primary osteoarthritis of knee, unspecified laterality Social [...] Description 04/13/2025 2:15 PM EDT Office Visit [facility] [address] [place] [address] Ernie Noriega MD [address] [place] [address] documented as of this encounter Visit Diagnoses Diagnosis Primary osteoarthritis of knee, unspecified laterality documented in this encounter Additional Health Concerns Assessment Noted Time PHQ-9 Depression Total Score: 2 01/21/20 24 1:25 PM EDT documented as of this encounter Care Teams In Store Marketing Representative Relationship Specialty Start Date End Date Ernie Noriega MD [address] [place] [phone] PCP - General Internal Medicine 08/25/19 documented as of this encounter
--- OUTSIDE RECORDS SUMMARY | 2025-01-25 08:56 | XMS_ITS | Encounter Summary ---
Author Organization [employer] [facility] Address [address] [place] [address] 7 [place] [address] Care Team Providers Care Tubing Machine Operator Name Role Phone Ernie Noriega MD Primary Care Provide r Reason for Visit * Reason Onset Date Comments Appointment Request 02/17/2023 Encounter Details Date Type Department Care Team ([facility] st Contact Info) Description 02/17/2023 Telephone [facility] [address] [place] [address] Ernie Noriega MD [address] [place] [address] Appointment Request Social History Tobacco Use Types [...] a colonoscopy due to advise by her school adjustment counselor in [facility] Please contact pt AT [phone] Amharic Speaker documented in this encounter Plan of Treatment Upcoming Encounters Date Type Department Care Team (Late st Contact Info) Description 04/13/2025 2:15 PM EDT Office Visit [facility] [address] [place] [address] Ernie Noriega MD [address] [place] [address] documented as of this encounter Visit Diagnoses Not on filedocumented in this encounter Additional Health Concerns Assessment Noted Time PHQ-9 Depression Total Score: 0 12/02/19 23 2:38 PM EST documented as of this encounter Care Teams Tubing Machine Operator Relationship Specialty Start Date End Date Ernie Noriega MD [address] [place], [place] [phone] PCP - General Internal Medicine 08/25/19 documented as of this encounter
--- OUTSIDE RECORDS SUMMARY | 2025-01-25 08:56 | XMS_ITS | Encounter Summary ---
Author Organization [employer] Address [address] [place] [address] 7t [place] [address] Care Team Providers Care Medical Claims Examiner Name Role Phone Ernie Noriega MD Primary Care Provide r Reason for Visit * Reason Comments Med Refill Encounter Details Date Type Department Care Team ([facility] st Contact Info) Description 07/28/2024 Refill [facility] MED[facility] [address] [place], [place] [phone] Ernie Noriega MD 230 [place] [address] Primary osteoarthritis of knee, unspecified laterality Social [...] Description 04/13/2025 2:15 PM EDT Office Visit [facility] [address] [place] [address] Ernie Noriega MD [address] [place] [address] documented as of this encounter Visit Diagnoses Diagnosis Primary osteoarthritis of knee, unspecified laterality documented in this encounter Additional Health Concerns Assessment Noted Time PHQ-9 Depression Total Score: 2 01/21/20 24 1:25 PM EDT documented as of this encounter Care Teams Medical Claims Examiner Relationship Specialty Start Date End Date Ernie Noriega MD [address] [place] [address] PCP - General Internal Medicine 08/25/19 documented as of this encounter
--- OUTSIDE RECORDS SUMMARY | 2025-01-25 08:56 | XMS_ITS | Referral Summary ---
Author Organization [facility] Address [address] [place] [address] Care Team Providers Care Communication Center Operator Name Role Phone Ernie Merritt Primary Care Provider + Encounters Date Type Department Care Team Description 12/14/2024 9:00 AM EST Office Visit [facility] [address] [place] [address] Christopher Peres MD Chronic bilateral low back pain with bilateral sciatica (Primary Dx); H/O cervical spine surgery 12/13/2024 Telephone [facility] [address] [place] [address] Christopher Peres MD 12/08/2024 Telephone [facility] [address] [place] [address] Christopher Peres MD 11/01/2024 Orders Only [facility] - External Imaging [address] [place] [address] Radiology, External from Last 3 Months Allergies [...] propionate (FLONASE) 50 mcg/actuation nasal spray SMARTSI Jennings(s) Both Nares Twice Daily 3 Active tamsulosin [...] Info) Description 03/14/2025 3:00 PM EDT Follow-Up [facility] [address] [place] [address] Christopher Peres MD [address] [place], [place] [phone] Procedures * Due to [place] law, this organization might not be sharing [...] Last 3 Months Results * Due to [place] law, this organization might not be sharing negative HIV tests. * MRI Cervical Spine WO Contrast (12/21/2024 7:55 AM EDT) Anatomical Region Laterality Modality Spine, C-spine Magnetic Resonan ce 12/21/2024 7:30 AM EDT Narrative 12/22/2024 2:31 PM EDT [facility] Accession Number: [id number] Patient Name: Miguelina Julien Date of : 1965 Date of Exam: 12-21-2024 Referring Physician: Christopher Peres ?[facility] ?[address] [place] [address] ?[place], [place] [address] Exam: MR Cervical Spine (C-) CPT 23605 Room Description: [facility] 1.5 MR Cervical Spine (C-) CPT 80657 INDICATION: previous C spine surgery, appears tight on MRI T spine banquet coordinator ?? TECHNIQUE: Multiplanar, multisequence MRI of the [...] Note Provider, Porsche - 12/22/2024 [facility] Accession Number: [id number] Patient Name: Miguelina Julien Date of : 1965 Date of Exam: 12-21-2024 Referring Physician: Christopher Peres [place] [id number] Exam: MR Cervical Spine (C-) CPT 39980 Room Description: [facility] 1.5 MR Cervical Spine (C-) CPT 97491 INDICATION: previous C spine surgery, appears tight on MRI T spine banquet coordinator TECHNIQUE: Multiplanar, multisequence MRI of the cervical [...] By: Priti Mendez MD Christopher Peres MD [facility] MRI PROCEDURES Final Re sult * MRI [...] obtain the completed interpretation. ? Workstation ID: [id number] Narrative 12/14/2024 5:30 PM EST COMPARISON: There are no prior studies available for comparison at this time. Resulting Agency Comment [id number] Procedure Note Stone Reid MD - 12/14/2024 [...] possible to obtain thecompleted interpretation. Workstation ID: [id number] us Christopher Peres MD IMG XR PROCEDURES [...] obtain the completed interpretation. ? Workstation ID: [id number] Narrative 12/14/2024 5:30 PM EST COMPARISON: There are no prior studies available for comparison at this time. Resulting Agency Comment [id number] Procedure Note Stone Reid MD - 12/14/2024 [...] possible to obtain thecompleted interpretation. Workstation ID: [id number] us Christopher Peres MD IMG XR PROCEDURES Final Res ult * MRI Thoracic and Lumbar Spine, Outside Result (11/01/2024) Anatomical Region Laterality Modality Other 11/01/2024 us Onbase Scan Carol AMB EXTERNAL RESULT PROCEDURE S Final Result from Last 3 Mon[place] [id number] Care Teams Communication Center Operator Relationship Specialty Start Date End Date Ernie Merritt [address] [place] [address] PCP - General Internal Medicine 11/29/24
--- OUTSIDE RECORDS SUMMARY | 2025-01-25 08:56 | XMS_ITS | Encounter Summary ---
Author Organization [employer] Address [address] [place] [address] 7t [place] [address] Care Team Providers Care Airset Caster Name Role Phone Ernie Noriega MD Primary Care Provide r Reason for Visit * Reason Comments Med Refill Encounter Details Date Type Department Care Team ([facility] st Contact Info) Description 08/10/2023 Refill [facility] MEDICINE [address] [place] [address] Ernie Norigea MD [address] [place] [address] Primary osteoarthritis of knee, unspecified laterality; Chronic [...] Office Visit [facility] MEDICINE [address] [place] [address] Ernie Noriega MD [address] [place] [address] documented as of this encounter Visit Diagnoses Diagnosis Primary osteoarthritis of knee, unspecified laterality Chronic midline low back pain without sciatica Cervical radiculopathy Brachial neuritis or radiculitis nos Pain Generalized pain documented in this encounter Additional Health Concerns Assessment Noted Time PHQ-9 Depression Total Score: 0 12/02/19 23 2:38 PM EST documented as of this encounter Care Teams Airset Caster Relationship Specialty Start Date End Date Ernie Noriega MD [address] [place] [address] PCP - General Internal Medicine 08/25/19 documented as of this encounter
--- OUTSIDE RECORDS SUMMARY | 2025-01-25 08:56 | XMS_ITS | Encounter Summary ---
Author Organization [employer] Address [address] [place] [address] 7t [place] [address] Care Team Providers Care Lead Applier Name Role Phone Ernie Noriega MD Primary Care Provide r Reason for Visit * Reason Onset Date Comments Med Refill 11/01/2024 Encounter Details Date Type Department Care Team ([facility] st Contact Info) Description 11/01/2024 Refill [facility] MED[facility]INE [address] [place] [address] Sugar Mitchell MD [address] [place] [address] Seasonal allergies Social History Tobacco Use Types [...] 2:15 PM EDT Office Visit [facility]INE [address] [place] [address] Ernie Noriega MD [address] [place] [address] documented as of this encounter Visit Diagnoses Diagnosis Seasonal allergies Allergic rhinitis, cause unspecified documented in this encounter Additional Health Concerns Assessment Noted Time PHQ-9 Depression Total Score: 2 01/21/20 24 1:25 PM EDT documented as of this encounter Care Teams Lead Applier Relationship Specialty Start Date End Date Ernie Noriega MD [address] [place] [address] PCP - General Internal Medicine 08/25/19 documented as of this encounter
--- OUTSIDE RECORDS SUMMARY | 2025-01-25 08:56 | XMS_ITS | Encounter Summary ---
Author Organization [employer] Address [address] [place] [address] 7t [place] [address] Care Team Providers Care Airport Maintenance Chief Name Role Phone Ernie Noriega MD Primary Care Provide r Reason for Visit * Reason Onset Date Comments Med Refill 01/10/2025 Encounter Details Date Type Department Care Team ([facility] st Contact Info) Description 01/10/2025 Refill [facility] MED[facility]INE [address] [place] [address] Ernie Noriega MD [address] [place] [address] Chronic midline low back pain without sciatica [...] Description 04/13/2025 2:15 PM EDT Office Visit [facility]INE [address] [place] [address] Ernie Noriega MD [address] [place] [address] documented as of this encounter Visit Diagnoses Diagnosis Chronic midline low back pain without sciatica documented in this encounter Additional Health Concerns Assessment Noted Time PHQ-9 Depression Total Score: 2 01/21/20 24 1:25 PM EDT documented as of this encounter Care Teams Airport Maintenance Chief Relationship Specialty Start Date End Date Ernie Noriega MD [address] [place] [phone] PCP - General Internal Medicine 08/25/19 documented as of this encounter
--- OUTSIDE RECORDS SUMMARY | 2025-01-25 08:56 | XMS_ITS | Encounter Summary ---
Author Organization [employer] [facility] Address [address] [place] [address] 7 [place] [address] Care Team Providers Care Jewelry Drilling Machine Operator Name Role Phone Ernie Noriega MD Primary Care Provide r Encounter Details Date Type Department Care Team (Late st Contact Info) Description 02/18/2023 Abstract [facility] MEDICINE [address] [place] [address] [phone] Ernie Noriega MD [address] [place] [address] [phone] Social History Tobacco Use Types Packs/Day Years [...] Office Visit [facility] MED[facility]INE [address] [place] [address] [phone] Ernie Noriega MD [address] [place] [address] [phone] documented as of this encounter Procedures Procedure [...] as of this encounter Care Teams Jewelry Drilling Machine Operator Relationship Specialty Start Date End Date Ernie Noriega MD [address] [place] [address] PCP - General Internal Medicine 08/25/19 documented as of this encounter
--- OUTSIDE RECORDS SUMMARY | 2025-01-25 08:56 | XMS_ITS | Encounter Summary ---
Author Organization [employer] Address [address] [place] [address] 7 [place] [address] Care Team Providers Care Sports Management Professor Name Role Phone Ernie Noriega MD Primary Care Provide r Reason for Visit * Reason Onset Date Comments Med Refill 08/13/2024 Encounter Details Date Type Department Care Team ([facility] st Contact Info) Description 08/13/2024 Refill [facility] MED[facility]INE [address] [place] [address] Ernie Noriega MD [address] [place] [address] Seasonal allergies Social History Tobacco Use Types [...] 2:15 PM EDT Office Visit [facility] MEDICINE [address] [place] [address] Ernie Noriega MD [address] [place] [address] documented as of this encounter Visit Diagnoses Diagnosis Seasonal allergies Allergic rhinitis, cause unspecified documented in this encounter Additional Health Concerns Assessment Noted Time PHQ-9 Depression Total Score: 2 01/21/20 24 1:25 PM EDT documented as of this encounter Care Teams Sports Management Professor Relationship Specialty Start Date End Date Ernie Noriega MD [address] [place] [address] PCP - General Internal Medicine 08/25/19 documented as of this encounter
--- OUTSIDE RECORDS SUMMARY | 2025-01-25 08:56 | XMS_ITS | Encounter Summary ---
Author Organization [employer] Address [address] [place] [address] 7t [place] [address] Care Team Providers Care Cell Efficiency Supervisor Name Role Phone Ernie Noriega MD Primary Care Provide r Reason for Visit * Reason Onset Date Comments Med Refill 10/27/2023 Encounter Details Date Type Department Care Team ([facility] st Contact Info) Description 10/27/[address] [facility] MED[facility]INE [address] [place] [address] Ernie Noriega MD [address] [place] [address] Mild persistent asthma without complication; Pain; Chronic [...] 04/13/2025 2:15 PM EDT Office Visit [facility] MED[facility]INE [address] [place] [address] Ernie Noriega MD [address] [place] [address] documented as of this encounter Visit Diagnoses Diagnosis Mild persistent asthma without complication Pain Generalized pain Chronic midline low back pain without sciatica Cervical radiculopathy Brachial neuritis or radiculitis nos documented in this encounter Additional Health Concerns Assessment Noted Time PHQ-9 Depression Total Score: 0 12/02/19 23 2:38 PM EST documented as of this encounter Care Teams Cell Efficiency Supervisor Relationship Specialty Start Date End Date Ernie Noriega MD [address] [place] [address] PCP - General Internal Medicine 08/25/19 documented as of this encounter
--- OUTSIDE RECORDS SUMMARY | 2025-01-25 08:56 | XMS_ITS | Encounter Summary ---
Author Organization [employer] Address [address] [place] [address] 7t [place] [address] Care Team Providers Care Behavior Specialist Name Role Phone Ernie Noriega MD Primary Care Provide r Reason for Visit * Reason Onset Date Comments Med Refill 04/16/2024 Encounter Details Date Type Department Care Team ([facility] st Contact Info) Description 04/16/2024 Refill [facility] MEDICINE [address] [place] [address] Ernie Noriega MD [address] [place] [address] Essential hypertension Social History Tobacco Use Types [...] Description 04/13/2025 2:15 PM EDT Office Visit [facility]INE [address] [place] [address] Ernie Noriega MD [address] [place] [address] documented as of this encounter Visit Diagnoses Diagnosis Essential hypertension Unspecified essential hypertension documented in this encounter Additional Health Concerns Assessment Noted Time PHQ-9 Depression Total Score: 2 01/21/20 24 1:25 PM EDT documented as of this encounter Care Teams Behavior Specialist Relationship Specialty Start Date End Date Ernie Noriega MD [address] [place] [address] PCP - General Internal Medicine 08/25/19 documented as of this encounter
--- OUTSIDE RECORDS SUMMARY | 2025-01-25 08:56 | XMS_ITS | Encounter Summary ---
Author Organization [employer] Address [address] [place] [address] 7t [place] [address] Care Team Providers Care Automobile Service Writer Name Role Phone Ernie Noriega MD Primary Care Provide r Reason for Visit * Reason Onset Date Comments Med Refill 11/07/2024 Encounter Details Date Type Department Care Team ([facility] st Contact Info) Description 11/07/2024 Refill [facility] MED[facility]INE [address] [place] [address] Ernie Noriega MD [address] [place] [address] Chronic midline low back pain without sciatica [...] 04/13/2025 2:15 PM EDT Office Visit [facility] [address] [place] [address] Ernie Noriega MD [address] [place] [address] documented as of this encounter Visit Diagnoses Diagnosis Chronic midline low back pain without sciatica documented in this encounter Additional Health Concerns Assessment Noted Time PHQ-9 Depression Total Score: 2 01/21/20 24 1:25 PM EDT documented as of this encounter Care Teams Automobile Service Writer Relationship Specialty Start Date End Date Ernie Noriega MD [address] [place] [address] PCP - General Internal Medicine 08/25/19 documented as of this encounter
--- OUTSIDE RECORDS SUMMARY | 2025-01-25 08:56 | XMS_ITS | Encounter Summary ---
Author Organization [employer] Address [address] [place] [address] 7t [place] [address] Care Team Providers Care Aadc Plans Staff Officer Name Role Phone Ernie Noriega MD Primary Care Provide r Reason for Visit * Reason Onset Date Comments Nurse Triage 12/22/2024 Encounter Details Date Type Department Care Team ([facility] st Contact Info) Description 12/22/2024 Telephone [facility] [address] [place] [address] Ernie Noriega MD [address] [place] [address] Nurse Triage Social History Tobacco Use Types [...] 12/22/2024 10:03 AM EDT Called pt. Via [employer] clinical nurse manager [phone] [place]. Pt. States that she went to [...] leg pain now Please contact pt at [phone]. (Indonesian Speaker) documented in this encounter Plan of Treatment Upcoming Encounters Date Type Department Care Team (Late st Contact Info) Description 04/13/2025 2:15 PM EDT Office Visit [facility] [address] [place] [address] Ernie Noriega MD [address] [place] [address] documented as of this encounter Visit Diagnoses Not on filedocumented in this encounter Additional Health Concerns Assessment Noted Time PHQ-9 Depression Total Score: 2 01/21/20 24 1:25 PM EDT documented as of this encounter Care Teams Aadc Plans Staff Officer Relationship Specialty Start Date End Date Ernie Noriega MD [address] [place] [address] PCP - General Internal Medicine 08/25/19 documented as of this encounter
--- OUTSIDE RECORDS SUMMARY | 2025-01-25 08:56 | XMS_ITS | Clinical Summary ---
Author Organization [address] [facility] Address [address] [place] [address] Phone Care Team Providers Care Studio Camera Operator Name Role Phone Ernie Merritt MD [...] Office Visit Orthopedic Surgery [facility] 175 [facility] [address] [place] [phone] Nicolasa Yu PA S/P trigger finger release (Primary Dx) 12/07/2024 1:30 PM EST - 12/07/2024 3:[address] [facility] [place] [address] [place] [phone] Trista David MD LEFT A1 JOAO/TRIGGER FINGER RELEASE INDEX FINGER [31943 (CPT??)] 12/07/2024 12:30 PM EST Anesthesia Event [facility] [place] [address] [place] [phone] Irvin Fields MD Decandio, Laura, CRNA 12/07/2024 11:51 AM EST - 12/07/2024 2:43 PM EST Hospital Encounter [facility] [address] [place] [phone] Trista David MD Discharge Disposition: Home or Self Care 11/23/2024 11:00 AM EST Office Visit Orthopedic [facility] [address] [facility] [address] [place] [phone] Leroy Lees MD Rotator cuff arthropathy, left (Primary Dx) 11/22/2024 10:45 AM EST Consult Orthopedic Surgery [facility] 175 [facility] [address] [place] [phone] Trista David MD Acquired trigger finger of left index finger (Primary Dx) 11/04/2024 Telephone Orthopedic Surgery [facility] [address] [phone] Eulalia Velez from Last 3 Months Surgical [...] age to complete this topic Meningococcal B Vaccine Aged Out No l onger eligible based on patient's age to complete [...] finger, unspecified finger Case Notes PA ASSIST WI ARTHROCENTESIS/ PIRATION/INJECTIO N MAJOR JOINT/BURSA W/O U/S GUIDANCE Routine 11/23/2024 11:00 AM EST Rotator cuff arthropathy, left from Last 3 Months Results * WI ARTHROCENTESIS/ASPIRATION/INJECTION MAJOR JOINT/BURSA W/O U/S GUIDANCE (11/23/2024 [...] currently active code status orders. Care Teams Studio Camera Operator Relationship Specialty Start Date End Date Ernie Merritt MD [address] [place] [address] [place] [phone] PCP - General Internal Medicine 05/20/21
--- OUTSIDE RECORDS SUMMARY | 2025-01-25 08:57 | XMS_ITS | Clinical Summary ---
Author Organization [employer] Address [address] [place] [address] 7[address] [place] [address] Care Team Providers Care Therapy Tech Name Role Phone Ernie Noriega MD [...] 180 capsule 1 10/13/19 25 2024 Discontinued lidocaine (Lidoderm) 5 % [...] has chronic low back pain, treated at [facility] by Dr Clint Newberry. Hx of AP fusion from L4-sacrum in 2003. She has received epidural injections initially with good results but that is no longer the case. Pt developed lumbar spinal stenosis and on 01/14/2021 underwent Posterior neural foraminotomy L2-L3 by Dr. Bailey. She was admitted to [facility] from 11/13/2022 until 11/20/2022 due to worsening low back pain with radiation to her right thigh and right leg after an experimental thoracic spinal stimulation procedure at the surgery center [facility] (She was referred there by [facility]). Procedure was aborted after pt experienced severe [...] does not want to follow-up with [facility] d/t the severe pain she experienced with [...] has a Medical [place] Card recommended by [facility] treating physician. pt utilizes the liquid form. She is no longer under the care of [facility] I had been prescribing tramadol to use [...] has a Medical [place] Card recommended by [facility] treating physician. pt utilizes the liquid form. She is no longer under the care of [facility] I had been prescribing tramadol to use [...] Dr Soto who referred her back to [facility] for back pain History of total knee [...] Under the care of Dr Almeida at [facility]. see med list for current psychiatric meds, no changes. she has been stable they have requested me to continue his medications for insomnia, Ambien and Benadryl Chronic low back pain 05/12/2012 Assessment & Plan (01/12/2025 3:22 PM EDT): Pt here for a f/u Hx of chronic low back pain, treated in the past at [facility] by Dr Clint Newberry. Hx of AP fusion from L4-sacrum in 2004. She received epidural injections with good results in the past. but that was no longer the case. Pt developed lumbar spinal stenosis and on 01/14/2021 underwent Posterior neural foraminotomy L2-L3by Dr. Bailey. She was admitted to [facility] from 11/13/2022 until 11/20/2022 due to worsening low back pain with radiation to her right thigh and right leg after an experimental thoracic spinal stimulation procedure at the surgery center [facility] (She was referred there by [facility]). Procedure was aborted after pt experienced severe [...] the pain clinic. Pt was [place] [facility]: 11/08/2024 they did an MRI [...] encroachment seen. Subsequently she was referred to [facility], seen Their assesment was:that [...] back pain, treated in the past at [facility] by Dr Clint Newberry. Hx of AP fusion from L4-sacrum in 2003. She received epidural injections with good results in the past. but that was no longer the case. Pt developed lumbar spinal stenosis and on 01/14/2021 underwent Posterior neural foraminotomy L2-L3by Dr. Bailey. She was admitted to [facility] from 11/13/2022 until 11/20/2022 due to worsening low back pain with radiation to her right thigh and right leg after an experimental thoracic spinal stimulation procedure at the surgery center [facility] (She was referred there by [facility]). Procedure was aborted after pt experienced severe [...] the pain clinic. Pt today c/o pain 10/10 Plan: Refer to Pain Clinic Assessment & Plan (05/28/2023 3:25 PM EDT): Pt here for a f/u Hx of chronic low back pain, she had been receiving treatment at [facility] by Dr Clint Newberry. Hx of AP fusion from L4-sacrum in 2003. She has received epidural injections with good results in the past. but that was no longer the case. Pt developed lumbar spinal stenosis and on 01/14/2021 underwent Posterior neural foraminotomy L2-L3by Dr. Bailey. Patient is here for a follow up. She was recently admitted to [facility] from 11/13/2022 until 11/20/2022 due to worsening low back pain with radiation to her right thigh and right leg after an experimental thoracic spinal stimulation procedure at the surgery center [facility] (She was referred there by [facility]). Procedure was aborted after pt experienced severe [...] does not want to follow-up with [facility] d/t the severe pain she experienced with [...] pain, she had been receiving treatment at [facility] by Dr Clint Newberry. Hx of AP fusion from L4-sacrum in 2003. She has received epidural injections with good results in the past. but that was no longer the case. Pt developed lumbar spinal stenosis and on 01/14/2021 underwent Posterior neural foraminotomy L2-L3by Dr. Bailey. She was admitted to [facility] from 11/13/2022 until 11/20/2022 due to worsening low back pain with radiation to her right thigh and right leg after an experimental thoracic spinal stimulation procedure at the surgery center [facility] (She was referred there by [facility]). Procedure was aborted after pt experienced severe [...] does not want to follow-up with [facility] d/t the severe pain she experienced with [...] pain, she had been receiving treatment at [facility] by Dr Clint Newberry. Hx of AP fusion from L4-sacrum in 2003. She has received epidural injections with good results in the past. but that was no longer the case. Pt developed lumbar spinal stenosis and on 01/14/2021 underwent Posterior neural foraminotomy L2-L3by Dr. Bailey. Patient is here for a follow up. She was recently admitted to [facility] from 11/13/2022 until 11/20/2022 due to worsening low back pain with radiation to her right thigh and right leg after an experimental thoracic spinal stimulation procedure at the surgery center [facility] (She was referred there by [...] does not want to follow-up with [facility] d/t the severe pain she experienced with [...] Encounters Date Type Department Care Team Description 01/19/2025 Telephone [facility] [address] [place] [phone] Ernie Noriega MD ER Follow-up 01/12/2025 3:00 PM EDT Office Visit [facility] [address] [place] [address] Ernie Noriega MD Varicose veins of leg with pain, right (Primary Dx); Right foot pain; Chronic midline low back pain without sciatica; Essential hypertension 01/12/2025 Telephone [facility] [address] [place] [address] Ernie Noriega MD Appointment Request 01/12/2025 Travel 01/10/2025 Refill [facility] [address] [place] [address] Ernie Noriega MD Primary osteoarthritis of knee, unspecified laterality 01/10/2025 Refill [facility] [address] [place] [address] Ernie Noriega MD Chronic midline low back pain without sciatica 01/09/2025 Refill [facility] [address] [place] [address] Ofelia Melgar MD 01/09/2025 Refill [facility] [address] [place] [address] Ernie Noriega MD Ischial pain, right; Chronic midline low back pain without sciatica; Primary osteoarthritis of knee, unspecified laterality 01/05/2025 Orders Only [facility] [address] [place] [address] Ernie Noriega MD 01/05/2025 Travel 12/29/2024 Telephone [facility] [address] [place] [address] Ernie Noriega MD Chart Prep 12/23/2024 Population Health Risk Score [facility] [address] [place] [phone] Provider, Population Health Generic 12/23/2024 Telephone [facility] [address] [place] [address] Ernie Noriega MD Referral 12/22/2024 Telephone [facility] [address] [place] [address] Marty Soto MD Results 12/22/2024 Orders Only [facility] [address] [place] [address] Marty Soto MD Right foot pain (Primary Dx) 12/22/2024 Telephone [facility] [address] [place] [address] Ernie Noriega MD Nurse Triage 12/21/2024 9:00 AM EDT Office Visit [facility] [address] [place] [phone] Marty Soto MD Right foot pain (Primary Dx); Ecchymoses, spontaneous 12/15/2024 Refill [facility] [address] [place] [address] Ernie Noriega MD 12/09/2024 Orders Only [facility] External Provider, [facility] 11/28/2024 Refill [facility] [address] [place] [address] Ernie Noriega MD Gastritis without bleeding, unspecified chronicity, unspecified gastritis type 11/18/2024 Refill [facility] [address] [place] [address] Ernie Noriega MD Primary hypertension 11/17/2024 Refill [facility] [address] [place] [address] Ernie Noriega MD Seasonal allergies 11/14/2024 Refill [facility] [address] [place] [address] Ernie Noriega MD Primary osteoarthritis of knee, unspecified laterality 11/07/2024 Refill [facility] [address] [place] [address] Ernie Noriega MD Chronic midline low back pain without sciatica 11/01/2024 Refill [facility] [address] [place] [address] Sugar Mitchell MD Seasonal allergies 11/01/2024 Refill [facility] [address] [place] [address] Sugar Mitchell MD Seasonal allergies from Last 3 Months Immunizations Name Administration [...] Visit [facility] [address] [place] [address] Ernie Noriega MD [address] [place] [address] Health Maintenance Due Date Last Done Comments [...] Screening 12/19/2025 HPV/Cotest 12/19/2025 12/19/2020, 12/10, 09/02/2019 Depression Screening 01/12/2026 01/12/2025, 01/13/20 25 SDOH Screening 01/12/2026 01/12/2025 Tobacco Screening 01/12/2026 01/12/2025 Mammogram 01/05/2027 01/05/2025, 12/11, 12/23/2022, Additional history exists Lipid Panel 11/07/2027 11/07/2022, [...] Comments BI MAMMOGRAM SCREENING TOMOSYNTHESIS BILATERAL Routine 01/05/2025 10:00 AM EDT APTT Routine 12/21/2024 10:13 AM EDT Right [...] OR Routine 12/09/2024 9:0 8 AM EST HM COLONOSCOPY Routine 03/18/2024 HEPATITIS C AB W/REFL TO HCV RNA, QN, PCR Routine 11/07/2022 8:24 AM EST Essential hypertension LIPID PANEL WITH REFLEX TO DIRECT LDL Routine 11/07/2022 8:24 AM EST Essential hypertension ZZZ HISTORICAL HPV E6/E7 RFLX SERGIO 16 18/45 Routine 12/19/2020 3:40 PM EST from Last 3 Months or Most Recently Relevant to Health Maintenance Results * BI Mammogram Screening Tomosynthesis Bilateral (01/05/2025 10:00 AM EDT) Anatomical Region Laterality Modality Breast Bilateral Mammography 01/05/2025 10:0 0 AM EDT Narrative 01/13/2025 2:49 PM EDT ? [facility] ? [address] ?[place] [address] ?[phone] ? Mammography Report ? Signed ? Patient: Julien,Miguelina ?MR#: [id number] ?? 12 ? : 1965 ?Acct:[id number] ? Age/Sex: 59 / F ?ADM Date: 01/05/25 ? Loc: HO.MAMMO ? Attending Dr: Ernie Merritt MD ? Ordering Physician: Ernie Merritt MD ?Resu ?? lts: 1Negative ? Date of Service: 01/05/25 ?Follow Up: 1 Year From Orig ?? inal Mammogram ? Procedure(s): MM tomosynthesis screening BI ?? Accession Number(s): [id number] ? cc: Ernie Merritt MD ? EXAMINATION: ?? MM SCREENING DIGITAL BREAST TOMOSYNTHESIS, BILATERAL ? CLINICAL INFORMATION: ? Screening. Asymptomatic. ? COMPARISON: ?? Mammography: Comparison is made with available priors ? TECHNIQUE: ?? Digital breast mammography with tomosynthesis is performed in both the ?? craniocaudal and mediolateral oblique views along with computer-aided ?? detection (CAD). ? FINDINGS: ?? There are scattered areas of fibroglandular density (ACR BI-RADS breast ?? composition Category b). ? There are no significant masses, abnormal calcifications, or other ?? abnormalities. ? MM/MM tomosynthesis screening BI ?? IMPRESSION: ?? No mammographic evidence of malignancy. ? ASSESSMENT: ? BI-RADS BI-RADS 1 - Negative ? RECOMMENDATION: ?? Routine annual mammography screening. ? 1 year F/U ? This examination should not preclude the clinical evaluation of a ?? suspicious palpable abnormality. ? This patient's information was entered into a reminder system with a ?? target due date for their next mammogram. ? Electronically signed by: ??Yari Valencia DO ??01/13/2025 02:47 PM EDT ?? RP ? Dictated By: ?Yari Valencia DO ? Signed By: ?<Electronically signed by Yari Valencia, DO in OV> ? 01/13/25 1447 ? DD/ 1000 ? TD/TT: 01/05/25 1015 ? [employer]: ? Procedure Note Tiesha, Image - 01/13/2025 [facility] [address] [place] [address] [place] [address] Mammography Report Signed Patient: Miguelina Julien#: [id number] [birth year] : 1965Acct:[id number] Age/Sex: 59 / FADM Date: 01/05/25 Loc: HO.MAMMO Attending Dr: Ernie Merritt MD Ordering Physician: Ernie Merritt MDResu lts: 1Negative Date of Service: 01/05/25Follow Up: 1 Year From Orig inal Mammogram Procedure(s): MM tomosynthesis screening BI Accession Number(s): [id number] cc: Ernie Merritt MD EXAMINATION: MM SCREENING DIGITAL BREAST TOMOSYNTHESIS, BILATERAL CLINICAL INFORMATION: Screening. Asymptomatic. COMPARISON: Mammography: Comparison is made with available priors TECHNIQUE: Digital breast mammography with tomosynthesis is performed in both the craniocaudal and mediolateral oblique views along with computer-aided detection (CAD). FINDINGS: There are scattered areas of fibroglandular density (ACR BI-RADS breast composition Category b). There are no significant masses, abnormal calcifications, or other abnormalities. MM/MM tomosynthesis screening BI IMPRESSION: No mammographic evidence of malignancy. ASSESSMENT: BI-RADS BI-RADS 1 - Negative RECOMMENDATION: Routine annual mammography screening. 1 year F/U This examination should not preclude the clinical evaluation of a suspicious palpable abnormality. This patient's information was entered into a reminder system with a target due date for their next mammogram. Electronically signed by: Yari Valencia DO 01/13/2025 02:47 PM EDT RP Dictated By: Yari Valencia DO Signed By: <Electronically signed by Yari Valencia DO in OV> 01/13/25 1447 DD/ 1000 TD/TT: 01/05/25 1015 [employer]: us Ernie Ro MD IMG BI PROCEDURES Fin al Result * Lyme Disease Ab with Reflex to Blot (IgG, IgM) (12/21/2024 10:13 AM EDT) Lyme Antibody Screen <0.90 index [facility] Comment:Index Interpretation ----- < 0.90 [...] when erythemamigrans is apparent.THIS TEST WAS PERFORMED AT:[facility] [place] [phone] ANTONY MD Lyme Blot TNP [facility] 12/21/2024 10:1 3 AM EDT 12/21/2024 11:45 AM EDT us Marty Soto MD LAB BLOOD ORDERABLES Final Resul t [facility] [address] [place] [address] [phone] * (ABNORMAL) CBC auto differential (12/21/2024 10:13 AM EDT) White Blood Count 8.1 4.8 - 10.8 X10*3/uL [facility] Red Blood Count 4.14(L) 4.20 - 5.50 X10*6/uL [facility] Hemoglobin 11.6(L) 12.0 - 16.0 g/dl [facility] Hematocrit 37.3 37.0 - 47.0 % [facility] Mean Corpuscular Volume 90.1 80.0 - 98.0 fL [facility] Mean Corpuscular Hemoglobin 28.0 27.0 - 33.0 pg [facility] Mean Corpuscular HGB Conc 31.1 31.0 - 35.0 g/dl [facility] Red Cell Distribution Width 13.6 11.0 - 16.0 % [facility] Platelet Count 312 160 - 400 X10*3/uL [facility] Mean Platelet Volume 10.2 9.4 - 12.3 fL [facility] Neutrophils Percent Auto 55.2 45 - 73 % [facility] Imm Gran Pct Auto 0.4 0.0 - 0.4 % [facility] Lymphocytes Percent Auto 35.1 20 - 40 % [facility] Monocytes Percent Auto 7.3 2 - 11 % [facility] Eosinophils Percent Auto 1.4 0 - 4 % [facility] Basophils Percent Auto 0.6 0 - 2 % [facility] NRBC Pct Auto 0.0 0.0 - 0.2 /100WBC [facility] Neutrophils Absolute Auto 4.5 2.0 - 8.3 x10*3/uL [facility] Imm Gran Abs Auto 0.03 0.00 - 0.03 X10*3/uL [facility] Lymphocytes Absolute Auto 2.9 1.2 - 4.9 X10*3/uL [facility] Monocytes Absolute Auto 0.6 0.1 - 1.2 X10*3/uL [facility] Eosinophils Absolute Auto 0.1 0.0 - 0.4 X10*3/uL [facility] Basophils Absolute Auto 0.1 0.0 - 0.2 X10*3/uL [facility] NRBC Abs Auto 0.000 0.0 - 0.012 X10*3/uL [facility] Blood Venous blood specimen / Unknown 12/21/2024 10:13 AM EDT 12/21/2024 11:45 AM EDT us Marty Soto MD LAB BLOOD ORDERABLES Final Resul t Performing Organization Address City/[facility]/ZIP Co de Phone Number [facility] [address] [place] [phone] * Partial Thromboplastin Time, Activated (APTT) (12/21/2024 10:13 AM EDT) [facility] Partial Thromboplastin Time 33.7 26.0 - 36.8 SEC [facility] Comment:For information rega rding the monitoring of direct thrombininhibitors, please refer to Pharmacy. Blood Venous blood specimen / Unknown 12/21/2024 10:13 AM EDT 12/21/2024 11:45 AM EDT us Marty Soto MD LAB BLOOD ORDERABLES Final Resul t Performing Organization Address [facility]/ZIP Co de Phone Number [facility] [address] [place] [phone] * Prothrombin Time-INR (12/21/2024 10:13 AM EDT) Pathologist [facility] Prothrombin Time 11.4 10.9 - 12.4 SEC [facility] INTERNATIONAL NORM RATIO 1.0 0.9 - 1.1 [facility] Comment:INTERNATIONAL NORMAL IZED RATIO (INR) [...] ORDERABLES Final Resul t Performing Organization Address [facility] de Phone Number [facility] [address] [place] [phone] * Uric acid (12/21/2024 10:13 AM EDT) Uric Acid 4.6 2.4 - 5.7 mg/dL [facility] Blood Venous blood specimen / Unknown 12/21/2024 10:13 AM EDT 12/21/2024 11:45 AM EDT us Marty Soto MD LAB BLOOD ORDERABLES Final Resul t Performing Organization Address [facility] de Phone Number [facility] [address] [place] [phone] * XR Foot 3+ Views Right (12/21/2024 9:42 AM EDT) Anatomical Region Laterality Modality Lower Extremities, Foot Right Radiogra phic Imaging 12/21/2024 9:42 AM EDT Narrative 12/21/2024 10:03 AM EDT ?[facility] ?[address] ?[place] [address] ?XRay Report ? Signed ? Patient: Julien,Stafford ?MR#: [id number] ?? 12 ? : 1965 ?Acct:[id number] ? Age/Sex: 59 / F ?ADM Date: 12/21/24 ? Loc: HO.HHCX ? Attending Dr: Marty Soto MD ? Ordering Physician: MARTY SOTO MD ?? Date of Service: 12/21/24 ?? Procedure(s): XR foot RT min 3V ?? Accession Number(s): [id number] ? cc: MARTY SOTO MD ? EXAMINATION: [...] DD/ 0942 ? TD/TT: 12/21/24 0956 ? [employer]: ? Procedure Note Teisha, Image - 12/21/[address] [address] XRay Report Signed Patient: Miguelina Julien#: [id number] [birth year] : 1965Acct:[id number] Age/Sex: 59 / FADM Date: 12/21/24 Loc: HO.HHCX Attending Dr: Marty Soto MD Ordering Physician: MARTY SOTO MD Date of Service: 12/21/24 Procedure(s): XR foot RT min 3V Accession Number(s): [id number] cc: MARTY SOTO MD EXAMINATION: XR FOOT [...] 12/21/24 1000 DD/ 0942 TD/TT: 12/21/24 0956 [employer]: us Marty Soto MD IMG XR PROCEDURES Final Result * FL Guidance in OR (12/09/2024 9:08 AM EST) Anatomical Region Laterality Modality X-Ray Angiograph y 12/09/2024 9:08 AM EST Narrative 12/09/2024 9:48 AM EST ? [facility] ?[address] ?[place] [address] ? Fluoroscopy Report ? Signed ? Patient: Miguelina Julien ?MR#: [id number] ?? 12 ? : 1965 ?Acct:[id number] ? Age/Sex: 59 / F ?ADM Date: 12/09/24 ? Loc: HO.SSS ? Attending Dr: Aldo Casas MD ? Ordering Physician: Aldo Casas MD ?? Date of Service: 12/09/24 ?? Procedure(s): FL guidance in OR ?? Accession Number(s): [id number] ? cc: Ofelia Melgar MD; Aldo Casas [...] ??Rodrick Williamson MD ??12/09/2024 09:45 AM EST ? Dictated By: ?Rodrick Williamson MD ? Signed By: ?<Electronically signed by Rodrick Williamson MD in OV> ?12/09/24 0945 ? DD/ 0908 ? TD/TT: 12/09/24 0930 ? [employer]: ? Procedure Note Donsomter, Image - 12/09/[address] [address] Fluoroscopy Report Signed Patient: Miguelina JulienMR#: [id number] 12 : 1965Acct:[id number] Age/Sex: 59 / FADM Date: 12/09/24 Loc: [facility] Attending Dr: Aldo Casas MD Ordering Physician: Aldo Casas MD Date of Service: 12/09/24 Procedure(s): FL guidance in OR Accession Number(s): [id number] cc: Ofelia Melgar MD; Aldo Casas MD [...] in OV> 12/09/249[address] DD/ 7 TD/TT: 12/09/24929 [employer]: [facility] External Provider IMG IR PROCEDURES Final Result * (ABNORMAL) Hm Colonoscopy (03/18/2024) Colonoscopy Abnormal( A) Normal Comment:Tubular Adenoma 03/18/2024 Historical Provider HEALTH MAINTENANCE Final Result * (ABNORMAL) Lipid Panel with Reflex to Direct LDL (11/07/2022 8:24 AM EST) Cholesterol, Total 235(H) <200 mg/dL [facility] [facility] HDL Cholesterol 64 > OR = 50 mg/dL [employer] [place] [employer] [facility] [employer] Triglycerides 252(H) <150 mg/dL [facility] [facility] Comment: If a non-fasting specimen was collected, consider repeat triglyceride testing on a fasting specimen if clinically indicated. Bebo et al. J. of Clin. Lipidol. 2015;9:129-169. LDL Cholesterol 132(H) mg/dL (calc) [employer] [facility] Comment: Reference range: <100 Desirable range <100 mg/dL for primary prevention; ?? <70 mg/dL for patients with CHD or diabetic patients with > or = 2 CHD risk factors. LDL-C is now calculated using the Jordan-Dawn calculation, which is a validated novel method providing better accuracy than the Friedewald equation in the estimation of LDL-C. Jordan SS et al. BHARAT. 2013;310(19): 1926-6926 (http://education.Brandcast/faq/OEK155) Chol/HDLC Ratio 3.7 <5.0 (calc) [employer] [place] [employer] [facility] [employer] Non-HDL Cholesterol 171(H) <130 mg/dL (calc) [facility] [facility] Comment: For patients with diabetes plus 1 major ASCVD risk factor, treating to a non-HDL-C goal of <100 mg/dL (LDL-C of <70 mg/dL) is considered a therapeutic option. 11/07/2022 8:24 AM EST 11/07/2022 8:25 AM EST Narrative [facility] - 11/08/2022 12:51 AM EST FASTING:YES FASTING: YES Ernie Ro MD LAB BLOOD ORDERABLES Final Result [facility] [address], [place] [phone] [employer] [place] [employer] [address] [place] [address], (Nl2) [place] [phone] * Hepatitis C Antibody with Reflex to HCV, RNA, Quantitative, Real-Time PCR (11/07/2022 8:24 AM EST) Hepatitis C Antibody NON-REACT TAMARA NON-REACT TAMARA [employer] [facility] Index 0.12 <1.00 [facility] [facility] Comment: HCV antibody was non-reactive. There is no laboratory evidence of HCV infection. In most cases, no further action is required. However, if recent HCV exposure is suspected, a test for HCV RNA (test code 31751) is suggested. For additional information please refer to http://education.ProDeaf/faq/EVV61o6 (This link is being provided for informational/ educational purposes only.) Blood Venous blood specimen / Unknown 11/07/2022 8:24 AM EST 11/07/2022 8:25 AM EST Narrative [facility] - 11/08/2022 12:51 AM EST FASTING:YES FASTING: YES Ernie Ro MD LAB BLOOD ORDERABLES Final Result [address], [place] [address] [employer] [address] [place] [address], (Nl2) [place] [address] * HPV E6/E7 RFLX SERGIO 16 18/45 (12/19/2020 3:40 PM EST) HPV 16 RNA [facility] HPV 18/45 RNA [facility] HPV E6 E7 ADD [facility] HPV mRNA E6/E7 rflx Not Detected Not Detected [facility] Comment: Methodology: Pharmaceutical Salesperson-Mediated Amplification This assay detects E6/E7 viral messenger RNA (mRNA) from 14 high-risk HPV types (16,18,31,33,35,39,45,51,52,56,58,59,66,68). The analytical performance characteristics of this assay have been determined by [employer]. The modifications have not been cleared or approved by the FDA. This assay has been validated pursuant to the CLIA regulations and is used for clinical purposes. For additional information, please refer to http://education.ProDeaf/faq/AZI807w7 (This link if provided for information/ educational purposes only.) THIS TEST WAS PERFORMED AT: [facility] [address] [place] [address] [address]LO[address] [place], [place] ??[address] FLACA ANTONY MD 12/19/2020 3:40 PM EST us Historical Provider HISTORICAL/NON ORDERABLE LABS Final Result [facility] Critical access hospital Anywhere [address] from Last 3 Months or Most Recently Relevant to Health Maintenance Insurance Proviation C3 Care Teams Therapy Tech Relationship Specialty Start Date End Date Ernie Noriega MD [address] [place] [address] PCP - General Internal Medicine 08/25/19
--- OUTSIDE RECORDS SUMMARY | 2025-01-25 08:57 | XMS_ITS | Encounter Summary ---
Author Organization [employer] Address [address] [place] [address] 7t [place] [address] Care Team Providers Care Apple Sorter Name Role Phone Ernie Noriega MD Primary Care Provide r Reason for Visit * Reason Comments Med Refill Encounter Details Date Type Department Care Team ([facility] st Contact Info) Description 08/26/2023 Refill [facility] [address] [place] [address] Perlita Woody MD 230 [place] [address] Seasonal allergies Social History Tobacco Use Types [...] Office Visit [facility] [address] [place] [address] Ernie Noriega MD 230 [place] [address] documented as of this encounter Visit Diagnoses Diagnosis Seasonal allergies Allergic rhinitis, cause unspecified documented in this encounter Additional Health Concerns Assessment Noted Time PHQ-9 Depression Total Score: 0 12/02/19 23 2:38 PM EST documented as of this encounter Care Teams Apple Sorter Relationship Specialty Start Date End Date Ernie Noriega MD 230 [place] [address] PCP - General Internal Medicine 08/25/19 documented as of this encounter
--- OUTSIDE RECORDS SUMMARY | 2025-01-25 08:57 | XMS_ITS ---
Author Organization [facility] Address [address] [place] [address] Care Team Providers Care Bottom Turning Lathe Turner Name Role Phone Milton Ro MD, [facility] Primary Care Provide r Unavailable Rodrick Millan Unavailable [phone] REASON FOR VISIT screening Problems Problem Type SNOMED Code ICD Code Onset Dates Problem Status W/U Status Risk Notes Problem Diverticular disease of colon (857062419) Diverticulosis of large intestine without perforation or abscess without bleeding (K57.30) Active confirmed Encounters Encounter Location Date Provider Diagnosis [facility] [place] [address] [place] [id number] 03/18/2024 Rodrick Millan Encounter for scre ening [...] * ISHMAEL HINOJOSADOB: 3 (59 yo F)Acc No.[id number]:03/18/2024 COLON WITH MAC Patient:?ISHMAEL HINOJOSA Provider:?Rodrick Millan MD :1965???Age:58 Y???Sex:Female D ate:03/18/2024 Address:[address] [place], [place] [id number] Pcp:Ernie bonilla MD Subjective: * Chief Complaints: * ???1. Screening. * Medical History:? Objective: * Vitals:? Assessment: * Assessment: 1.?Encounter for screening c olonoscopy - Z12.11 (Primary)???2.?Colon polyps - K63.5???3.?Diverticulosis of large intestine without perforation or abscess without bleeding - K57.30???4.?Internal hemorrhoids - K64.8??? Plan: * Treatment: * Procedure Codes:?17704 COLON OSCOPY AND BIOPSY * * The named appointment provid er may or may not be the originator of this progress note, and it is not deemed complete until electronically signed by the appointment provider. Sign off status: Pending * Provider:?Rodrick Millan MD Date:? 024 Generated for Landon westbrook/Jean-Paul/eTransmitting on:?01/25/2025 08:57 AM EDT
--- OUTSIDE RECORDS SUMMARY | 2025-01-25 08:57 | XMS_ITS | Encounter Summary ---
Author Organization [employer] Address [address] [facility] 7t [place] [address] Care Team Providers Care Residential Care Facility Manager Name Role Phone Ernie Noriega MD Primary Care Provide r Reason for Visit * Reason Onset Date Comments Med Refill 09/18/2023 Encounter Details Date Type Department Care Team ([facility] st Contact Info) Description 09/18/2023 Refill [facility] [address] [place] [address] Ernie Noriega MD [address] [facility] [place] [address] Chronic midline low back pain without sciatica; [...] 04/13/2025 2:15 PM EDT Office Visit [facility] [address] [place] [address] Ernie Noriega MD 230 [place] [address] documented as of this encounter Visit Diagnoses Diagnosis Chronic midline low back pain without sciatica Cervical radiculopathy Brachial neuritis or radiculitis nos documented in this encounter Additional Health Concerns Assessment Noted Time PHQ-9 Depression Total Score: 0 12/02/19 23 2:38 PM EST documented as of this encounter Care Teams Residential Care Facility Manager Relationship Specialty Start Date End Date Ernie Noriega MD 230 [place] [address] PCP - General Internal Medicine 08/25/19 documented as of this encounter
--- OUTSIDE RECORDS SUMMARY | 2025-01-25 08:57 | XMS_ITS | Encounter Summary ---
Author Organization [facility] Address [address] [facility] [address] 7t [place] [address] Care Team Providers Care Tire Stripper Name Role Phone Ernie Noriega MD Primary Care Provide r Reason for Visit * Reason Onset Date Comments Med Refill Referral 12/10/2022 Patient walked i n requesting for referral to a neurologist. It is difficult for her to walk and do her [place] activities. Pt has had [facility] go to her house for therapy, but it has not made any improvements. Encounter Details Date Type Department Care Team (Late st Contact Info) Description 12/10/2022 Refill [facility] 230 [place], [place] [phone] Ernie Noriega MD 230 [place], [place] [phone] Pain Social History Tobacco Use Types Packs/Day [...] Office Visit [facility] [address] [place] [address] Ernie Noriega MD [address] [place] [address] documented as of this encounter Visit Diagnoses Diagnosis Pain Generalized pain documented in this encounter Additional Health Concerns Assessment Noted Time PHQ-9 Depression Total Score: 0 12/02/19 23 2:38 PM EST documented as of this encounter Care Teams Tire Stripper Relationship Specialty Start Date End Date Ernie Noriega MD 230 [place] [address] PCP - General Internal Medicine 08/25/19 documented as of this encounter
--- OUTSIDE RECORDS SUMMARY | 2025-01-25 08:57 | XMS_ITS | Encounter Summary ---
Author Organization [employer] Address [address] [place] [address] 7t [place] [address] Care Team Providers Care Sales Account Associate Name Role Phone Ernie Noriega MD Primary Care Provide r Reason for Visit * Reason Comments Med Refill Encounter Details Date Type Department Care Team ([facility] st Contact Info) Description 11/20/2023 Refill [facility] [address] [place], [place] [phone] Ernie Noriega MD 230 [place] [address] Pain Social History Tobacco Use Types Packs/Day [...] Description 04/13/2025 2:15 PM EDT Office Visit [facility] 230 [place] [address] Ernie Noriega MD 230 [place] [address] documented as of this encounter Visit Diagnoses Diagnosis Pain Generalized pain documented in this encounter Additional Health Concerns Assessment Noted Time PHQ-9 Depression Total Score: 0 12/02/19 23 2:38 PM EST documented as of this encounter Care Teams Sales Account Associate Relationship Specialty Start Date End Date Ernie Noriega MD 230 [place] [address] PCP - General Internal Medicine 08/25/19 documented as of this encounter
--- OUTSIDE RECORDS SUMMARY | 2025-01-25 08:57 | XMS_ITS ---
Author Organization [facility] Address [address] [place] [address] Care Team Providers Care Scrap Wheeler Name Role Phone Milton Ro MD, Ernie Primary Care Provide r Rodrick Juarez [phone] REASON FOR VISIT screening Encounters Encounter Location Date Provider Diagnosis [facility] [place] [address] [place], [place] [id number] 02/03/2024 Rodrick Millan Plan Of Treatment No Information Progress Notes * ISHMAEL HINOJOSADOB: 3 (59 yo F)Acc No.[id number]:02/03/2024 COLON WITH MAC Patient:?ISHMAEL HINOJOSA Provider:?Rodrick Millan MD :1965???Age:58 Y???Sex:Female D ate:02/03/2024 Address:[address] [place], [place] [address] NE[place] Megan [facility] Pcp:Ernie bonilla MD Subjective: * Chief Complaints: [...] MD Date:? 024 Generated for Printi ng/Faanjelg/eTransmitting on:?01/25/2025 08:57 AM EDT
--- OUTSIDE RECORDS SUMMARY | 2025-01-25 08:57 | XMS_ITS | Encounter Summary ---
Author Organization [facility] Address [address] [place] [address] 7t [place] [address] Care Team Providers Care Timber Appraiser Name Role Phone Ernie Noriega MD Primary Care Provide r Encounter Details Date Type Department Care Team ([facility] Contact Info) Description 12/09/2022 Orders Only [facility] [address] [place] [address] Suha Alexander, RN Social History Tobacco [...] Upcoming Encounters Date Type Department Care Team ([facility] Contact Info) Description 04/13/2025 2:15 PM EDT Office Visit [facility] 230 [place] [address] Ernie Noriega MD [address] [place] [address] documented as of this encounter Procedures Procedure Name Priority Date/Time Associated Diagnosis Comments BI MAMMOGRAM SCREENING TOMOSYNTHESIS BILATERAL Routine 12/23/2022 11:35 AM EDT documented in this encounter Results * BI Mammogram Screening Tomosynthesis Bilateral (12/23/2022 11:35 AM EDT) Anatomical Region Laterality Modality Breast Bilateral Mammography 12/23/2022 11:3 5 AM EDT Narrative 12/24/2022 5:15 PM EDT ? [facility] [place] ? [address] ?[place] [address] ? Mammography Report ? Signed ? Patient: Miguelina Watson ?MR#: ?? [id number] ? : 1965 ?Acct:[id number] ? Age/Sex: 57 / F ?ADM Date: 12/23/22 ? Loc: HO.MAMMO ? Attending Dr: Ernie Merritt MD ? Ordering Physician: Ernie Merritt MD ?Resu ?? lts: 1Negative ? Date of Service: 12/23/22 ?Follow Up: 1 Year From Orig ?? inal Mammogram ? Procedure(s): MM tomosynthesis screening BI ?? Accession Number(s): [id number] ? cc: Ernie Merritt MD ? EXAMINATION: [...] 1712 ? DD/ 1135 ? TD/TT: ? Bin Cleaner: SK ? Procedure Note Tiesha, Rene - 12/24/2022 [facility] [address] [place] [address] Dr. [place], [place] [address] Mammography Report Signed [id number] : 1965Acct:[id number] Age/Sex: 57 / FADM Date: 12/23/22 Loc: [facility] Attending Dr: Ernie Merritt MD Ordering Physician: Ernie Merritt MDResu lts: 1Negative Date of Service: 12/23/22Follow Up: 1 Year From Orig inal Mammogram Procedure(s): MM tomosynthesis screening BI Accession Number(s): [id number] cc: Ernie Merritt MD EXAMINATION: MM SCREENING [...] in OV> 12/24/22 1712 DD/ 1135 TD/TT: Bin Cleaner: SMITHA [facility] External Provider IMG BI PROCEDURES Edited Result - Final documented in this encounter Visit Diagnoses Not on filedocumented in this encounter Additional Health Concerns Assessment Noted Time PHQ-9 Depression Total Score: 0 12/02/19 23 2:38 PM EST documented as of this encounter Care Teams Timber Appraiser Relationship Specialty Start Date End Date Ernie Noriega MD [address] [place] [address] PCP - General Internal Medicine 08/25/19 documented as of this encounter
--- OUTSIDE RECORDS SUMMARY | 2025-01-25 08:57 | XMS_ITS | Encounter Summary ---
Author Organization [employer] Address [address] [place] [address] 7 [place] [address] Care Team Providers Care Gig Tender Name Role Phone Ernie Noriega MD Primary Care Provide r Reason for Visit * Reason Onset Date Comments Med Refill 11/03/2023 Encounter Details Date Type Department Care Team ([facility] st Contact Info) Description 11/03/2023 Refill [facility] [address] [place] [address] Ernie Noriega MD [address] [place] [address] Seasonal allergies Social History Tobacco Use Types [...] 2:15 PM EDT Office Visit [facility] [address] [place] [address] Ernie Noriega MD [address] [place] [address] documented as of this encounter Visit Diagnoses Diagnosis Seasonal allergies Allergic rhinitis, cause unspecified documented in this encounter Additional Health Concerns Assessment Noted Time PHQ-9 Depression Total Score: 0 12/02/19 23 2:38 PM EST documented as of this encounter Care Teams Gig Tender Relationship Specialty Start Date End Date Ernie Noriega MD [address] [place] [address] PCP - General Internal Medicine 08/25/19 documented as of this encounter
--- OUTSIDE RECORDS SUMMARY | 2025-01-25 08:57 | XMS_ITS | Encounter Summary ---
Author Organization [employer] Address [address] [place] [address] 7 [place] [address] Care Team Providers Care Community Liaison Officer Name Role Phone Ernie Noriega MD Primary Care Provide r Reason for Visit * Reason Onset Date Comments Med Refill 11/17/2024 Encounter Details Date Type Department Care Team ([facility] st Contact Info) Description 11/17/2024 Refill [facility] [address] [place] [address] Ernie Noriega MD [address] [place] [address] Seasonal allergies Social History Tobacco Use Types [...] Office Visit [facility] [address] [place] [address] Ernie Noriega MD [address] [place] [address] documented as of this encounter Visit Diagnoses Diagnosis Seasonal allergies Allergic rhinitis, cause unspecified documented in this encounter Additional Health Concerns Assessment Noted Time PHQ-9 Depression Total Score: 2 01/21/20 24 1:25 PM EDT documented as of this encounter Care Teams Community Liaison Officer Relationship Specialty Start Date End Date Ernie Noriega MD [address] [place] [address] PCP - General Internal Medicine 08/25/19 documented as of this encounter
--- OUTSIDE RECORDS SUMMARY | 2025-01-25 08:57 | XMS_ITS | Encounter Summary ---
Author Organization [employer] Address [address] [place] [address] 7t [place] [address] Care Team Providers Care Automotive Parts Manager Name Role Phone Ernie Noriega MD Primary Care Provide r Reason for Visit * Reason Comments Med Refill Encounter Details Date Type Department Care Team ([facility] st Contact Info) Description 08/28/[address] [facility] [address] [place] [address] Perlita Woody MD [address] [place] [address] Primary hypertension Social History Tobacco Use Types [...] Office Visit [facility] [address] [place] [address] Ernie Noriega MD [address] [place] [address] documented as of this encounter Visit Diagnoses Diagnosis Primary hypertension Unspecified essential hypertension documented in this encounter Additional Health Concerns Assessment Noted Time PHQ-9 Depression Total Score: 0 12/02/19 23 2:38 PM EST documented as of this encounter Care Teams Automotive Parts Manager Relationship Specialty Start Date End Date Ernie Noriega MD [address] [place] [address] PCP - General Internal Medicine 08/25/19 documented as of this encounter
--- OUTSIDE RECORDS SUMMARY | 2025-01-25 08:57 | XMS_ITS | Encounter Summary ---
Author Organization [employer] Address [address] [place] [address] 7t [place] [address] Care Team Providers Care Industrial Engineering Technician Name Role Phone Ernie Noriega MD Primary Care Provide r Reason for Visit * Reason Comments Med Refill Encounter Details Date Type Department Care Team ([facility] st Contact Info) Description 08/10/2023 Refill [facility] [address] [place] [address] Perlita Woody MD [address] [place] [address] Seasonal allergies; Primary hypertension Social History Tobacco [...] your housing situation today? I have robin armírez 07/29/[address] you li [...] [facility] [address] [place] [address] Ernie Noriega MD [address] [place] [address] documented as of this encounter Visit Diagnoses Diagnosis Seasonal allergies Allergic rhinitis, cause unspecified Primary hypertension Unspecified essential hypertension documented in this encounter Additional Health Concerns Assessment Noted Time PHQ-9 Depression Total Score: 0 12/02/19 23 2:38 PM EST documented as of this encounter Care Teams Industrial Engineering Technician Relationship Specialty Start Date End Date Ernie Noriega MD [address] [place] [address] PCP - General Internal Medicine 08/25/19 documented as of this encounter
--- OUTSIDE RECORDS SUMMARY | 2025-01-25 08:57 | XMS_ITS | Encounter Summary ---
Author Organization [employer] Address [address] [place] [address] 7t [place] [address] Care Team Providers Care Information Broker Name Role Phone Ernie Noriega MD Primary Care Provide r Reason for Visit * Reason Onset Date Comments Med Refill 08/17/2023 Encounter Details Date Type Department Care Team ([facility] st Contact Info) Description 08/17/2023 Telephone [facility] [address] [place], [place] [phone] Ernie Noriega MD [address] [place], [place] [phone] Med Refill Social History Tobacco Use Types [...] sent to [facility]/pharmacy #[id number] [place], [place] - [address] [place] [address] documented in this encounter Plan of Treatment Upcoming Encounters Date Type Department Care Team (Late st Contact Info) Description 04/13/2025 2:15 PM EDT Office Visit [facility] [address] [place] [address] Ernie Noriega MD [address] [place] [address] documented as of this encounter Visit Diagnoses Not on filedocumented in this encounter Additional Health Concerns Assessment Noted Time PHQ-9 Depression Total Score: 0 12/02/19 23 2:38 PM EST documented as of this encounter Care Teams Information Broker Relationship Specialty Start Date End Date Ernie Noriega MD [address] [place] [address] PCP - General Internal Medicine 08/25/19 documented as of this encounter
--- OUTSIDE RECORDS SUMMARY | 2025-01-25 08:57 | XMS_ITS | Encounter Summary ---
Author Organization [employer] Address [address] [place] [address] 7t [place] [address] Care Team Providers Care Raw Material Planner Name Role Phone Ernie Noriega MD Primary Care Provide r Reason for Visit * Reason Comments Med Refill Encounter Details Date Type Department Care Team ([facility] st Contact Info) Description 10/11/[address] [facility] [address] [place] [address] Ernie Noriega MD [address] [place] [address] Social History Tobacco Use Types Packs/Day Years [...] 04/13/2025 2:15 PM EDT Office Visit [facility] [address] [place] [address] Ernie Noriega MD [address] [place] [address] documented as of this encounter Visit Diagnoses Not on filedocumented in this encounter Additional Health Concerns Assessment Noted Time PHQ-9 Depression Total Score: 0 12/02/19 23 2:38 PM EST documented as of this encounter Care Teams Raw Material Planner Relationship Specialty Start Date End Date Ernie Noriega MD [address] [place] [address] PCP - General Internal Medicine 08/25/19 documented as of this encounter
--- OUTSIDE RECORDS SUMMARY | 2025-01-25 08:57 | XMS_ITS | Encounter Summary ---
Author Organization [employer] Address [address] [place] [address] 7t [place] [address] Care Team Providers Care Returns Supervisor Name Role Phone Ernie Noriega MD Primary Care Provide r Reason for Visit * Reason Onset Date Comments ER Follow-up 01/19/2025 Encounter Details Date Type Department Care Team ([facility] st Contact Info) Description 01/19/2025 Telephone [facility] [address] [place] [address] Ernie Noriega MD [address] [place] [address] ER Follow-up Social History Tobacco Use Types Packs/Day Years [...] Telephone Encounter - Catalina West RN - 01/20/2025 11:41 AM EDT TC placed to pt and LVM to call back the office * Telephone Encounter - Federica Malhotra - 01/20/2025 11:18 AM EDT Tc from pt returning phone call. Pt states she feels much better, they gave her Ibuprofen and the swelling goes down completely. * Telephone Encounter - Catalina West RN - 01/20/2025 10:55 AM EDT TC placed to pt and LVM to call back the office * Telephone Encounter - Federica Malhotra - 01/20/2025 9:24 AM EDT Tc from pt returning phone call. Hungarian * Telephone Encounter - Catalina West RN - 01/19/2025 4:02 PM EDT TC placed to pt and LVM to call back the office regarding ED visit * Telephone Encounter - Isai Ashley - 01/19/2025 2:22 PM EDT Patient calling to report ED visit on : Date: 01/13/25 Hospital: [facility] Seen for: Foot swelling Symptomatic No *if yes message should go to Triage Patient advised will forward to team nurse for follow up Contact pt at [phone] documented in this encounter Plan of Treatment Upcoming Encounters Date Type Department Care Team (Late st Contact Info) Description 04/13/2025 2:15 PM EDT Office Visit [facility] [address] [place] [address] Ernie Noriega MD [address] [place] [address] documented as of this encounter Visit Diagnoses Not on filedocumented in this encounter Additional Health Concerns Assessment Noted Time PHQ-9 Depression Total Score: 4 01/13/20 25 2:57 PM EDT documented as of this encounter Care Teams Returns Supervisor Relationship Specialty Start Date End Date Ernie Noriega MD [address] [place] [address] PCP - General Internal Medicine 08/25/19 documented as of this encounter
--- OUTSIDE RECORDS SUMMARY | 2025-01-25 08:57 | XMS_ITS | Encounter Summary ---
Author Organization [employer] Address [address] [place] [address] 7t [place] [address] Care Team Providers Care Human Resources Leader Name Role Phone Ernie Noriega MD Primary Care Provide r Reason for Visit * Reason Onset Date Comments Med Refill 09/18/2023 Encounter Details Date Type Department Care Team ([facility] st Contact Info) Description 09/18/2023 Telephone [facility] MEDICINE [address] [place] [address] Ernie Noriega MD 230 [place], [place] [phone] Med Refill Social History Tobacco Use Types [...] (Ultram) 50 MG tablet Please sent to [facility]/pharmacy #[id number] [place], [place] - [address] [place] [address] documented in this encounter Plan of Treatment Upcoming Encounters Date Type Department Care Team (Late st Contact Info) Description 04/13/2025 2:15 PM EDT Office Visit [facility] MEDICINE 230 [place], [place] [phone] Ernie Noriega MD 230 [place] [address] documented as of this encounter Visit Diagnoses Not on filedocumented in this encounter Additional Health Concerns Assessment Noted Time PHQ-9 Depression Total Score: 0 12/02/19 23 2:38 PM EST documented as of this encounter Care Teams Human Resources Leader Relationship Specialty Start Date End Date Ernie Noriega MD 230 [place], [place] [phone] PCP - General Internal Medicine 08/25/19 documented as of this encounter
--- OUTSIDE RECORDS SUMMARY | 2025-01-25 08:58 | XMS_ITS | Encounter Summary ---
Author Organization [employer] Address [address] [place] [address] 7t [place] [address] Care Team Providers Care Business Management Professor Name Role Phone Ernie Noriega MD Primary Care Provide r Reason for Visit * Reason Onset Date Comments Med Refill 09/28/2024 Encounter Details Date Type Department Care Team ([facility] st Contact Info) Description 09/28/2024 Refill [facility] MEDICINE [address] [place] [address] Ernie Noriega MD 230 [place] [address] Chronic midline low back pain without sciatica; [...] 2:15 PM EDT Office Visit [facility] MEDICINE [address] [place] [address] Ernie Noriega MD 230 [place] [address] documented as of this encounter Visit Diagnoses Diagnosis Chronic midline low back pain without sciatica Cervical radiculopathy Brachial neuritis or radiculitis nos documented in this encounter Additional Health Concerns Assessment Noted Time PHQ-9 Depression Total Score: 2 01/21/20 24 1:25 PM EDT documented as of this encounter Care Teams Business Management Professor Relationship Specialty Start Date End Date Ernie Noriega MD [address] [place] [address] PCP - General Internal Medicine 08/25/19 documented as of this encounter
--- OUTSIDE RECORDS SUMMARY | 2025-01-25 08:58 | XMS_ITS | Encounter Summary ---
Author Organization [employer] [facility] Address [address] [place] [address] 7t [place] [address] Care Team Providers Care Interlocking Pavement Installer Name Role Phone Ernie Noriega MD Primary Care Provide r Encounter Details Date Type Department Care Team (Late st Contact Info) Description 10/03/2022 Orders Only [facility] MEDICINE [address] [place] [address] [phone] Suha Alexander, RN Social History Tobacco Use [...] Description 04/13/2025 2:15 PM EDT Office Visit [facility] MEDICINE [address] [place] [address] [phone] Ernie Noriega MD [address] [place] [address] documented as of this encounter Visit Diagnoses Not on filedocumented in this encounter Care Teams Interlocking Pavement Installer Relationship Specialty Start Date End Date Ernie Noriega MD [address] [place] [address] PCP - General Internal Medicine 08/25/19 documented as of this encounter
--- OUTSIDE RECORDS SUMMARY | 2025-01-25 08:58 | XMS_ITS | Encounter Summary ---
Author Organization [employer] Address [address] [place] [address] 7 [place] [address] Care Team Providers Care Electronic System Engineer Name Role Phone Ernie Noriega MD Primary Care Provide r Reason for Visit * Reason Onset Date Comments Med Refill 10/12/2024 Encounter Details Date Type Department Care Team ([facility] st Contact Info) Description 10/12/2024 Refill [facility] MEDICINE 230 [place] [address] Ernie Noriega MD 230 [place] [address] Primary osteoarthritis of knee, unspecified laterality Social [...] 2:15 PM EDT Office Visit [facility] MEDICINE 230 [place] [address] Ernie Noriega MD 230 [place] [address] documented as of this encounter Visit Diagnoses Diagnosis Primary osteoarthritis of knee, unspecified laterality documented in this encounter Additional Health Concerns Assessment Noted Time PHQ-9 Depression Total Score: 2 01/21/20 24 1:25 PM EDT documented as of this encounter Care Teams Electronic System Engineer Relationship Specialty Start Date End Date Ernie Noriega MD [address] [place] [address] PCP - General Internal Medicine 08/25/19 documented as of this encounter
--- OUTSIDE RECORDS SUMMARY | 2025-01-25 08:58 | XMS_ITS | Encounter Summary ---
Author Organization [employer] Address [address] [place] [address] 7t [place] [address] Care Team Providers Care Powertrain Design Engineer Name Role Phone Ernie Noriega MD Primary Care Provide r Reason for Visit * Reason Onset Date Comments Med Refill 09/28/2024 Encounter Details Date Type Department Care Team ([facility] st Contact Info) Description 09/28/2024 Refill [facility] MEDICINE 230 [place] [address] Ernie Noriega MD 230 [place] [address] Primary osteoarthritis of knee, unspecified laterality Social [...] PM EDT Office Visit [facility] MEDICINE 230 [place] [address] Ernie Noriega MD 230 [place] [address] documented as of this encounter Visit Diagnoses Diagnosis Primary osteoarthritis of knee, unspecified laterality documented in this encounter Additional Health Concerns Assessment Noted Time PHQ-9 Depression Total Score: 2 01/21/20 24 1:25 PM EDT documented as of this encounter Care Teams Powertrain Design Engineer Relationship Specialty Start Date End Date Ernie Noriega MD [address] [place] [address] PCP - General Internal Medicine 08/25/19 documented as of this encounter
--- OUTSIDE RECORDS SUMMARY | 2025-01-25 08:58 | XMS_ITS | Encounter Summary ---
Author Organization [employer] Address [address] [place] [address] 7t [place] [address] Care Team Providers Care Brand Strategy Manager Name Role Phone Ernie Noriega MD Primary Care Provide r Reason for Visit * Reason Onset Date Comments verbal order 11/21/2022 Encounter Details Date Type Department Care Team (Late Contact Info) Description 11/21/[address] [facility] MEDICINE 230 [place] [address] Ernie Noriega MD 230 [place] [address] verbal order Social History Tobacco Use Types [...] 1:08 PM EST Tc from Baldemar from [facility] calling to inform pt started home services today . Baldemar is also requesting a verbal order for pt to start physical therapy for 2x a week for 4 weeks . Best contact # [phone]. documented in this encounter Plan of Treatment Upcoming Encounters Date Type Department Care Team (Late Contact Info) Description 04/13/2025 2:15 PM EDT Office Visit [facility] MEDICINE [address] [facility] [place] [address] Ernie Noriega MD 230 [place] [address] documented as of this encounter Visit Diagnoses Not on filedocumented in this encounter Care Teams Brand Strategy Manager Relationship Specialty Start Date End Date Ernie Noriega MD [facility] [place] [address] PCP - General Internal Medicine 08/25/19 documented as of this encounter
--- OUTSIDE RECORDS SUMMARY | 2025-01-25 08:58 | XMS_ITS | Encounter Summary ---
Author Organization [employer] Address [address] [place] [address] 7 [place] [address] Care Team Providers Care Clerk Stenographer Name Role Phone Ernie Noriega MD Primary Care Provide r Reason for Visit * Reason Onset Date Comments Medication Question 10/03/2022 returning call 10/03/2022 Encounter Details Date Type Department Care Team ([facility] st Contact Info) Description 10/03/2022 Telephone [facility] MEDICINE 230 [place] [address] Ernie Noriega MD 230 [place] [address] Medication Question; returning call Social History Tobacco [...] pt returning call Please contact pt at [phone] * Telephone Encounter - Peg Scott RN - 10/10/2022 11:17 AM EST T/C placed to pt x2AM re below message. No answer, left v/m. Will retask to central nurses for third attempt. * Telephone Encounter - Peg Scott RN - 10/08/2022 3:32 PM EST Incoming T/C from Sylvia CAMARILLO from [facility]. She states spoke with DELI ASSOCIATE who saw pt 09/24. It is not in the OV note (which is located in Epic under Media tab) but that pt reported pain during appt and DELI ASSOCIATE advised pt speak to her PCP and [...] next month with PCP. Will send to central nurses to attempt second call. [place] sending to PCP as FYI. * Telephone Encounter - Peg Scott RN - 10/08/2022 10:34 AM EST Reviewed most recent note from [facility] note. No mention [...] calling to inform was told by her [facility] Physicians DR to request [...] Visit [facility] MEDICINE [address] [facility] [place] [address] Ernie Noriega MD 230 [place] [address] documented as of this encounter Visit Diagnoses Not on filedocumented in this encounter Care Teams Clerk Stenographer Relationship Specialty Start Date End Date Ernie Noriega MD 230 [facility] [place] [address] PCP - General Internal Medicine 08/25/19 documented as of this encounter
--- OUTSIDE RECORDS SUMMARY | 2025-01-25 08:58 | XMS_ITS | Encounter Summary ---
Author Organization [employer] Address [address] [place] [address] 7t [place] [address] Care Team Providers Care Probation Manager Name Role Phone Ernie Noriega MD Primary Care Provide r Reason for Visit * Reason Comments Med Refill Encounter Details Date Type Department Care Team ([facility] st Contact Info) Description 12/25/2023 Refill [facility] MEDICINE 230 [place], [place] [phone] Ernie Noriega MD 230 [place], [place] [phone] Pain; Primary hypertension; Seasonal allergies Social History [...] 04/13/2025 2:15 PM EDT Office Visit [facility] MEDICINE [address] [place] [address] Ernie Noriega MD 230 [place] [address] documented as of this encounter Visit Diagnoses Diagnosis Pain Generalized pain Primary hypertension Unspecified essential hypertension Seasonal allergies Allergic rhinitis, cause unspecified documented in this encounter Additional Health Concerns Assessment Noted Time PHQ-9 Depression Total Score: 0 12/02/19 23 2:38 PM EST documented as of this encounter Care Teams Probation Manager Relationship Specialty Start Date End Date Ernie Noriega MD 230 [place] [address] PCP - General Internal Medicine 08/25/19 documented as of this encounter
--- OUTSIDE RECORDS SUMMARY | 2025-01-25 08:58 | XMS_ITS | Encounter Summary ---
Author Organization [employer] Address [address] [place] [address] 7 [place] [address] Care Team Providers Care Kids Club Attendant Name Role Phone Ernie Noriega MD Primary Care Provide r Reason for Visit * Reason Onset Date Comments Med Refill 09/28/2024 Encounter Details Date Type Department Care Team ([facility] Contact Info) Description 09/28/2024 Telephone [facility] MEDICINE [address] [place] [address] Ernie Noriega MD [address] [place] [address] Med Refill Social History Tobacco Use Types [...] MG capsule To be sent to: [facility]/pharmacy #[address] [place] [address] documented in this encounter Plan of Treatment Upcoming Encounters Date Type Department Care Team (Late st Contact Info) Description 04/13/2025 2:15 PM EDT Office Visit [facility] MEDICINE [address] [place] [address] Ernie Noriega MD [address] [place], [place] [phone] documented as of this encounter Visit Diagnoses Not on filedocumented in this encounter Additional Health Concerns Assessment Noted Time PHQ-9 Depression Total Score: 2 01/21/20 24 1:25 PM EDT documented as of this encounter Care Teams Kids Club Attendant Relationship Specialty Start Date End Date Ernie Noriega MD [address] [place] [address] PCP - General Internal Medicine 08/25/19 documented as of this encounter
--- OUTSIDE RECORDS SUMMARY | 2025-01-25 08:58 | XMS_ITS ---
Author Organization [facility] Address [address] [place] [address] Care Team Providers Care Motor Mechanic Name Role Phone Milton Ro MD, Ernie Primary Care Provide r Rodrick Juarez [phone] REASON FOR VISIT PROCEDURE TOMORROW Encounters Encounter Location Date Provider Diagnosis [facility] [address] [place] [address] 03/17/2024 Rodrick Millan Plan Of Treatment No Information Progress Notes * ISHMAEL HINOJOSADOB: 3 (58 yo F)Acc No.[id number]:03/17/2024 Patient:?ISHMAEL HINOJOSA :1965???Age:58 Y???Sex:Female Address:[address] [place], [address] * true * Date:? Generated for Gonzálezi pietro/Jean-Paul/eTransmitting on:?01/25/2025 08:57 AM EDT
--- OUTSIDE RECORDS SUMMARY | 2025-01-25 08:58 | XMS_ITS | Encounter Summary ---
Author Organization [employer] Address [address] [place] [address] 7t [place] [address] Care Team Providers Care Senior Information Security Engineer Name Role Phone Ernie Noriega MD Primary Care Provide r Reason for Visit * Reason Onset Date Comments Med Refill 10/13/2024 Encounter Details Date Type Department Care Team ([facility] st Contact Info) Description 10/13/2024 Refill [facility] MEDICINE 230 [place] [address] Ernie Noriega MD 230 [place] [address] Chronic midline low back pain without sciatica [...] Office Visit [facility] MEDICINE [address] [place] [address] Ernie Noriega MD 230 [place] [address] documented as of this encounter Visit Diagnoses Diagnosis Chronic midline low back pain without sciatica documented in this encounter Additional Health Concerns Assessment Noted Time PHQ-9 Depression Total Score: 2 01/21/20 24 1:25 PM EDT documented as of this encounter Care Teams Senior Information Security Engineer Relationship Specialty Start Date End Date Ernie Noriega MD [address] [place] [address] PCP - General Internal Medicine 08/25/19 documented as of this encounter
--- OUTSIDE RECORDS SUMMARY | 2025-01-25 08:58 | XMS_ITS | Patient Health Record ---
Author Organization [facility] Address [address] [place] [address] Care Team Providers Care Accounting Supervisor Name Role Phone Milton Ro MD, Ernie Primary Care Provide r Rodrick Juarez Unavailable [phone] Allergies No Known Allergies Results Component Value Reference Range Notes Pathology (Not yet reviewed by provider) Interpretation: Performing Lab:[facility], [address] [place] [id number] Notes/Report: Name: Ishmael Julien Age/Sex: 58/F : 1965 Unit#: [id number] Attend Dr: Rodrick Millan Re03/18/24 Status : [facility] Location: [facility] Disch: SPEC : [id number] REC STATUS: RUBY GILLESPIE NUM: [id number] [place]: 03/18/24 [facility] DR: Rodrick Millan ENTERED: 03/18/24-06 22 SP [...] A. CEDS Copies To: Ernie Merritt MD [address] [place] [phone] Rodrick Millan [address] [place] [address] [address] [place] [address] Signed (si gnature on file) Donna Tovey 03/22/24 1450 END OF REPORT Reason For [...] as needed Inhalation every 4 hrs Active Rwddalkgzi-Wprmvba-Rsqkoymb 50-325-40 MG 1 capsule as needed Orally [...] Problem Status W/U Status Risk Notes Problem 562642249 Colon cancer screening (Z12.11) Active confirmed Problem Diverticular disease of colon (247450511) Diverticulosis of large intestine without perforation or abscess without bleeding (K57.30) Active confirmed Problem 270990927494777 Preprocedural examination (Z01.818) Active confirmed Problem 841261713 Encounter for long-term (current) use of NSAIDs (Z79.1) Active confirmed Encounters Encounter Location Date Provider Diagnosis [facility] Outpatient [address] [place], [place] [phone] 03/18/2024 Rodrick Millan Encounter for screen ing colonoscopy Z12.11 ; Colon polyps K63.5 ; Diverticulosis of large intestine without perforation or abscess without bleeding K57.30 and Internal hemorrhoids K64.8 [facility] [address] [place] [address] 03/17/2024 Rodrick Millan Assessments Encounter Date Diagnosis [...] Start Date Coverage End Date MEDICAID OF [employer] [address] [place] [address] [phone] [id number] JULIEN ISHMAEL Self - patient is the insured Medical (General) History Medical History History ICD Code Denies [place],DM,CVA,renal disease Asthma Depression/anxiety Hypertension Negative screening colonoscopy in 06/2013 Arthritis/Body aches Surgical History Surgery Date(Month/Year) Back surgery for disc disease Bilateral carpal tunnel Left shoulder C-spine disc surgery Bilateral knee replacements Might be having a left shoulder replacem ent as of the 07/2023 OV
[2025-01-25 11:56] LABS: Alanine Aminotransferase 36 U/L (0-31); Albumin Level 4.3 g/dL (3.5-5.0); Alkaline Phosphatase 95 U/L (39-117); Anion Gap 13 (12-20); Aspartate Amino Transferase 36 U/L (5-31); Bilirubin Total 0.7 mg/dL (0.0-1.0); Blood Urea Nitrogen 17 mg/dL (9-16); Calcium 9.1 mg/dL (8.4-10.2); Carbon Dioxide 28 mmol/L (22-29); Chloride 105 mmol/L (96-108); Cholesterol 232 mg/dL (<200); Estimated Glomerular Filt Rate > 60; Glucose Random 101 mg/dL (60-115); HDL Cholesterol 66 mg/dL (>40); LDL Cholesterol Calculated 133 mg/dL (<100); Sodium 142 mmol/L (135-145); Total Protein 7.1 g/dL (6.5-8.0); Triglycerides 165 mg/dL (<150)
== END 2025-01-25 08:36 | disposition home or self-care (01) ==
LOC: HO.HHCL 08:35
PROVIDERS: Visit Provider Internal Medicine
DX: I10 Essential (primary) hypertension (principal)
CPT/HCPCS: 36415; 80053; 80061

== ENCOUNTER 2025-02-06 15:00 | Outpatient (RCR) | payer MEDICAID, SELFPAY | END 2025-02-07 16:48 | disposition home or self-care (01) | LOC: HO.PT 15:00 | PROVIDERS: PCP Internal Medicine; Visit Provider Neurological Surgery | DX: M54.42 Lumbago with sciatica, left side (principal); M54.41 Lumbago with sciatica, right side; G89.29 Other chronic pain | CPT/HCPCS: 97110; 97140; 97162 ==

== ENCOUNTER 2025-02-10 09:09 | Outpatient (AMB) | payer MEDICAID, SELFPAY ==
--- NOTE | 2025-02-10 09:42 | MHC.OFFVIS ---
Intake Visit Reasons: R leg Micro Accompanied by: Self / Same As Patient Allergies No Known Allergies Allergy (Verified 02/10/25 09:42) PFSH Medical History Right-sided ischial pain Tubular adenoma of colon Hematuria Dysuria Overweight Varicose vein of leg Chronic tension-type headache, not intractable Neuropathic pain Hyperlipidemia Carpal tunnel syndrome Cervical radiculopathy Depressive disorder Diverticulosis HTN (hypertension) Osteoarthritis Asthma Essential hypertension Low back pain Pre-diabetes Seasonal allergies GERD (gastroesophageal reflux disease) Post-COVID syndrome COPD (chronic obstructive pulmonary disease) Arthritis Anxiety Depression Hesitancy of micturition Moderate persistent asthma Surgical History History of carpal tunnel release Hx of eye surgery Hx of cataract extraction Hx of shoulder surgery History of carpal tunnel surgery of right wrist H/O colonoscopy History of total right knee replacement History of back surgery History of total left knee replacement (~06/2020) Family History Mother Heart disease Sister HTN (hypertension) Sister HTN (hypertension) Diabetes Maternal Grandmother Cervical cancer Social History Household Members: Spouse Housing: House Are you a primary acute care surgeon to a significant other at home: No Do you presently have visiting nurse or other home services: No Alcohol intake: never Comment: in bathroom, aware of trip hazard Patient Tobacco Use Status: Former Tobacco user Tobacco use type: Cigarette Second Hand Smoke Exposure: No Substance Use Type: Marijuana Advance Directives Date on File: 12/17/21 service: No Current occupational status: unemployed Current occupation: Right Handed Gender identity: Female Office Procedures Vascular Office Procedure Details Details: Diagnosis: Right Leg varicose veins with inflammation Procedure: Right leg Microphlebectomy Anesthesia: Local Infiltration 20 cc, Tumescent: 0 cc. Varicose veins were marked in the standing position on the right leg and the patient was then placed in the pro position. The right lower extremity was prepared and draped to allow knee flexion in the sterile field. The patient had large superficial varicose veins with significant symptoms of pain. It was therefore determined to perform microphlebectomies of the clusters of varicose veins. The patient had bulging varicose veins which were previously marked in the standing position. A small stab incision was made longitudinally directly overlying the varicose vein in the calf and the varicose vein was grasped with a hemostat aided by a vein hook. It was then dissected as far proximally and distally as possible and avulsed. A total of 14 stab incisions were made and the procedure of stab phlebectomies was repeated 14 times. Hemostasis was checked and stab incision sites were closed with steri-strips and sterile dressing was given with gauze and krilex wrap followed by an ronaldo bandage. There were no complications and blood loss was minimal. Post-Op instructions were given and a follow-up appointment was recommended. [address]01 - Phleb Veins, Extrem - up to 20 All charges added?: Procedure code (CPT) selection complete Assessment & Plan Assessment & Plan (1) Varicose veins of right lower extremity with inflammation: Comment: 02/10/2025 - right leg microphlebectomy Code(s): I83.11 - Varicose veins of right lower extremity with inflammation Category: Medical Plan: See op note Coding Level of Care Code Procedure Only Diagnoses Varicose veins of right lower extremity with inflammation I83.11 CPT Codes Details - Vascular 5: 27776 - Phleb Veins, Extrem - up to 20 ([id number])
--- OUTSIDE RECORDS SUMMARY | 2025-02-10 09:43 | XMS_ITS | Clinical Summary ---
Author Organization [facility] Address [address] [place] [address] Phone Care Team Providers Care Retail Beauty Specialist Name Role Phone Ernie Merritt MD Primary [...] 11:00 AM EST Office Visit Orthopedic Surgery [facility] 175 [facility] [address] [place] [phone] Nicolasa Yu PA S/P trigger finger release (Primary Dx) 12/07/2024 1:30 PM EST - 12/07/2024 3:00 PM EST Surgery [facility] OR [address] [place] [phone] Trista David MD LEFT A1 JOAO/TRIGGER FINGER RELEASE INDEX FINGER [94281 (CPT??)] 12/07/2024 12:30 PM EST Anesthesia Event [facility] OR [address] [place] [phone] Irvin Fields MD Decandio, Laura, CRNA 12/07/2024 11:51 AM EST - 12/07/2024 2:43 PM EST Hospital Encounter [facility] OR [address] [place] [phone] Trista David MD Discharge Disposition: Home or Self Care 11/23/2024 11:00 AM EST Office Visit [facility] [address] [facility] [address] [place] [phone] Leroy Lees MD Rotator cuff arthropathy, left (Primary Dx) 11/22/2024 10:45 AM EST Consult Orthopedic Surgery [facility] [address] [facility] [address] [place] [phone] Trista David MD Acquired trigger finger of left index finger (Primary Dx) from Last 3 Months Surgical History Surgery [...] Procedure Name Priority Date/Time Associated Diagnosis Comments MN INCISION TENDON SHEATH 12/07/2024 12:32 PM EST Trigger finger, unspecified finger Case Notes PA ASSIST MN ARTHROCENTESIS/ PIRATION/INJECTIO N MAJOR JOINT/BURSA W/O U/S GUIDANCE Routine 11/23/2024 11:00 AM EST Rotator cuff arthropathy, left from Last 3 Months Results * MN ARTHROCENTESIS/ASPIRATION/INJECTION MAJOR JOINT/BURSA W/O U/S GUIDANCE (11/23/2024 [...] currently active code status orders. Care Teams Retail Beauty Specialist Relationship Specialty Start Date End Date Ernie Merritt MD [address] [place] [address] [place] [phone] PCP - General Internal Medicine 05/20/21
--- OUTSIDE RECORDS SUMMARY | 2025-02-10 09:43 | XMS_ITS | Encounter Summary ---
Author Organization [employer] Address [address] [place] [address] 7t [place] [address] Care Team Providers Care Freight Breaker Name Role Phone Ernie Noriega MD Primary Care Provide r Reason for Visit * Reason Onset Date Comments Med Refill 03/15/2024 Encounter Details Date Type Department Care Team ([facility] st Contact Info) Description 03/15/2024 Refill [facility] [address] [place] [address] Ofelia Melgar MD 230 [place] [address] Chronic midline low back pain without sciatica; [...] Description 04/13/2025 2:15 PM EDT Office Visit [facility] [address] [place] [address] Ernie Noriega MD 230 [place] [address] documented as of this encounter Visit Diagnoses Diagnosis Chronic midline low back pain without sciatica Cervical radiculopathy Brachial neuritis or radiculitis nos documented in this encounter Additional Health Concerns Assessment Noted Time PHQ-9 Depression Total Score: 2 01/21/20 24 1:25 PM EDT documented as of this encounter Care Teams Freight Breaker Relationship Specialty Start Date End Date Ernie Noriega MD [address] [place] [address] PCP - General Internal Medicine 08/25/19 documented as of this encounter
--- OUTSIDE RECORDS SUMMARY | 2025-02-10 09:44 | XMS_ITS | Encounter Summary ---
Author Organization [employer] [facility] Address [address] [place] [address] 7 [place] [address] Care Team Providers Care Day Guard Name Role Phone Ernie Noriega MD Primary Care Provide r Reason for Visit * Reason Onset Date Comments Appointment Request 02/17/2023 Encounter Details Date Type Department Care Team ([facility] st Contact Info) Description 02/17/2023 Telephone [facility] MED[facility]INE 230 [place] [address] Ernie Noriega MD 230 [place] [address] Appointment Request Social History Tobacco Use Types [...] a colonoscopy due to advise by her family law legal assistant in [facility] Please contact pt AT [phone] Czech Speaker documented in this encounter Plan of Treatment Upcoming Encounters Date Type Department Care Team (Late st Contact Info) Description 04/13/2025 2:15 PM EDT Office Visit [facility] MED[facility] 230 [place] [address] Ernie Noriega MD 230 [place] [address] documented as of this encounter Visit Diagnoses Not on filedocumented in this encounter Additional Health Concerns Assessment Noted Time PHQ-9 Depression Total Score: 0 12/02/19 23 2:38 PM EST documented as of this encounter Care Teams Day Guard Relationship Specialty Start Date End Date Ernie Noriega MD 230 [place], [place] [phone] PCP - General Internal Medicine 08/25/19 documented as of this encounter
--- OUTSIDE RECORDS SUMMARY | 2025-02-10 09:44 | XMS_ITS | Encounter Summary ---
Author Organization [employer] Address [address] [place] [address] 7t [place] [address] Care Team Providers Care Die Cast Supervisor Name Role Phone Ernie Noriega MD Primary Care Provide r Reason for Visit * Reason Onset Date Comments Med Refill 06/25/2024 Encounter Details Date Type Department Care Team ([facility] st Contact Info) Description 06/25/2024 Refill [facility] [address] [place] [address] Ernie Noriega MD 230 [place] [address] Chronic midline low back pain without sciatica; [...] PM EDT Office Visit [facility] [address] [place] [address] Ernie Noriega MD 230 [place] [address] documented as of this encounter Visit Diagnoses Diagnosis Chronic midline low back pain without sciatica Cervical radiculopathy Brachial neuritis or radiculitis nos documented in this encounter Additional Health Concerns Assessment Noted Time PHQ-9 Depression Total Score: 2 01/21/20 24 1:25 PM EDT documented as of this encounter Care Teams Die Cast Supervisor Relationship Specialty Start Date End Date Ernie Noriega MD 230 [place] [address] PCP - General Internal Medicine 08/25/19 documented as of this encounter
--- OUTSIDE RECORDS SUMMARY | 2025-02-10 09:44 | XMS_ITS | Encounter Summary ---
Author Organization [employer] Address [address] [place] [address] 7t [place] [address] Care Team Providers Care Assistant Professor Of Geography Name Role Phone Ernie Noriega MD Primary Care Provide r Reason for Visit * Reason Comments Med Refill Encounter Details Date Type Department Care Team ([facility] st Contact Info) Description 11/20/2023 Refill [facility] 230 [place], [place] [phone] Ernie Noriega MD [address] [place] [address] Pain Social History Tobacco Use Types Packs/Day [...] Description 04/13/2025 2:15 PM EDT Office Visit [facility] 230 [place] [address] Ernie Noriega MD [address] [place] [address] documented as of this encounter Visit Diagnoses Diagnosis Pain Generalized pain documented in this encounter Additional Health Concerns Assessment Noted Time PHQ-9 Depression Total Score: 0 12/02/19 23 2:38 PM EST documented as of this encounter Care Teams Assistant Professor Of Geography Relationship Specialty Start Date End Date Ernie Noriega MD [address] [place] [address] PCP - General Internal Medicine 08/25/19 documented as of this encounter
--- OUTSIDE RECORDS SUMMARY | 2025-02-10 09:44 | XMS_ITS | Encounter Summary ---
Author Organization [employer] Address [address] [place] [address] 7t [place] [address] Care Team Providers Care Clinical Immunologist Name Role Phone Ernie Noriega MD Primary Care Provide r Reason for Visit * Reason Onset Date Comments Med Refill 11/04/2023 Encounter Details Date Type Department Care Team ([facility] st Contact Info) Description 11/04/2023 Refill [facility] 230 [place] [address] Ernie Noriega MD 230 [place] [address] Pain Social History Tobacco Use Types Packs/Day [...] 04/13/2025 2:15 PM EDT Office Visit [facility] 230 [place] [address] Ernie Noriega MD [address] [place] [address] documented as of this encounter Visit Diagnoses Diagnosis Pain Generalized pain documented in this encounter Additional Health Concerns Assessment Noted Time PHQ-9 Depression Total Score: 0 12/02/19 23 2:38 PM EST documented as of this encounter Care Teams Clinical Immunologist Relationship Specialty Start Date End Date Ernie Noriega MD [address] [place] [address] PCP - General Internal Medicine 08/25/19 documented as of this encounter
--- OUTSIDE RECORDS SUMMARY | 2025-02-10 09:44 | XMS_ITS | Encounter Summary ---
Author Organization [employer] Address [address] [place] [address] 7t [place] [address] Care Team Providers Care Senior Bi Architect Name Role Phone Ernie Noriega MD Primary Care Provide r Reason for Visit * Reason Comments Med Refill Encounter Details Date Type Department Care Team ([facility] st Contact Info) Description 08/10/2023 Refill [facility] 230 [place] [address] Ernie Noriega MD 230 [place] [address] Primary osteoarthritis of knee, unspecified laterality; Chronic [...] Office Visit [facility] MEDICINE [address] [place] [address] Ernie Noriega MD [address] [place] [address] documented as of this encounter Visit Diagnoses Diagnosis Primary osteoarthritis of knee, unspecified laterality Chronic midline low back pain without sciatica Cervical radiculopathy Brachial neuritis or radiculitis nos Pain Generalized pain documented in this encounter Additional Health Concerns Assessment Noted Time PHQ-9 Depression Total Score: 0 12/02/19 23 2:38 PM EST documented as of this encounter Care Teams Senior Bi Architect Relationship Specialty Start Date End Date Ernie Noriega MD [address] [place] [address] PCP - General Internal Medicine 08/25/19 documented as of this encounter
--- OUTSIDE RECORDS SUMMARY | 2025-02-10 09:44 | XMS_ITS | Encounter Summary ---
Author Organization [employer] Address [address] [place] [address] 7t [place] [address] Care Team Providers Care Catering Truck Driver Name Role Phone Ernie Noriega MD Primary Care Provide r Reason for Visit * Reason Onset Date Comments Med Refill 10/17/2024 Encounter Details Date Type Department Care Team ([facility] st Contact Info) Description 10/17/2024 Refill [facility] 230 [place] [address] Ernie Noriega MD 230 [place] [address] Primary osteoarthritis of knee, unspecified laterality Social [...] [facility] [address] [place] [address] Ernie Noriega MD [address] [place] [address] documented as of this encounter Visit Diagnoses Diagnosis Primary osteoarthritis of knee, unspecified laterality documented in this encounter Additional Health Concerns Assessment Noted Time PHQ-9 Depression Total Score: 2 01/21/20 24 1:25 PM EDT documented as of this encounter Care Teams Catering Truck Driver Relationship Specialty Start Date End Date Ernie Noriega MD [address] [place] [address] PCP - General Internal Medicine 08/25/19 documented as of this encounter
--- OUTSIDE RECORDS SUMMARY | 2025-02-10 09:44 | XMS_ITS | Encounter Summary ---
Author Organization [employer] Address [address] [place] [address] 7t [place] [address] Care Team Providers Care Slag Wheeler Name Role Phone Ernie Noriega MD Primary Care Provide r Reason for Visit * Reason Onset Date Comments Med Refill 01/10/2025 Encounter Details Date Type Department Care Team ([facility] st Contact Info) Description 01/10/2025 Refill [facility] MED[facility] 230 [place] [address] Ernie Noriega MD 230 [place] [address] Primary osteoarthritis of knee, unspecified laterality Social [...] 2:15 PM EDT Office Visit [facility] [address] [place] [address] Ernie Noriega MD [address] [place] [address] documented as of this encounter Visit Diagnoses Diagnosis Primary osteoarthritis of knee, unspecified laterality documented in this encounter Additional Health Concerns Assessment Noted Time PHQ-9 Depression Total Score: 2 01/21/20 24 1:25 PM EDT documented as of this encounter Care Teams Slag Wheeler Relationship Specialty Start Date End Date Ernie Noriega MD [address] [place] [address] PCP - General Internal Medicine 08/25/19 documented as of this encounter
--- OUTSIDE RECORDS SUMMARY | 2025-02-10 09:44 | XMS_ITS | Encounter Summary ---
Author Organization [employer] Address [address] [place] [address] 7t [place] [address] Care Team Providers Care Working Supervisor Name Role Phone Ernie Noriega MD Primary Care Provide r Reason for Visit * Reason Onset Date Comments Med Refill 11/17/2024 Encounter Details Date Type Department Care Team ([facility] st Contact Info) Description 11/17/2024 Refill [facility] MED[facility]INE 230 [place] [address] Ernie Noriega MD 230 [place] [address] Seasonal allergies Social History Tobacco Use Types [...] Description 04/13/2025 2:15 PM EDT Office Visit [facility] MED[facility] 230 [place] [address] Ernie Noriega MD 230 [place] [address] documented as of this encounter Visit Diagnoses Diagnosis Seasonal allergies Allergic rhinitis, cause unspecified documented in this encounter Additional Health Concerns Assessment Noted Time PHQ-9 Depression Total Score: 2 01/21/20 24 1:25 PM EDT documented as of this encounter Care Teams Working Supervisor Relationship Specialty Start Date End Date Ernie Noriega MD [address] [place] [phone] PCP - General Internal Medicine 08/25/19 documented as of this encounter
--- OUTSIDE RECORDS SUMMARY | 2025-02-10 09:44 | XMS_ITS | Encounter Summary ---
Author Organization [employer] Address [address] [place] [address] 7t [place] [address] Care Team Providers Care Materials Buyer Name Role Phone Ernie Noriega MD Primary Care Provide r Reason for Visit * Reason Onset Date Comments Med Refill 10/27/2023 Encounter Details Date Type Department Care Team ([facility] st Contact Info) Description 10/27/2023 Refill [facility] 230 [place] [address] Ernie Noriega MD 230 [place] [address] Seasonal allergies; Pain Social History Tobacco Use [...] Description 04/13/2025 2:15 PM EDT Office Visit [facility] MED[facility] 230 [place] [address] Ernie Noriega MD 230 [place] [address] documented as of this encounter Visit Diagnoses Diagnosis Seasonal allergies Allergic rhinitis, cause unspecified Pain Generalized pain documented in this encounter Additional Health Concerns Assessment Noted Time PHQ-9 Depression Total Score: 0 12/02/19 23 2:38 PM EST documented as of this encounter Care Teams Materials Buyer Relationship Specialty Start Date End Date Ernie Noriega MD 230 [place] [address] PCP - General Internal Medicine 08/25/19 documented as of this encounter
--- OUTSIDE RECORDS SUMMARY | 2025-02-10 09:44 | XMS_ITS | Encounter Summary ---
Author Organization [facility] [facility] Address [address] [place] [address] 7t [place] [address] Care Team Providers Care Contracts Analyst Name Role Phone Ernie Noriega MD Primary Care Provide r Encounter Details Date Type Department Care Team (Latest Contact Info) Description 06/19/2022 Abstract [facility] CONVERSIONS Dental, Provider, DDS Social [...] Description 04/13/2025 2:15 PM EDT Office Visit [facility] MEDICINE [address] [place] [address] Ernie Noriega MD [address] [place] [address] documented as of this encounter Visit Diagnoses Not on filedocumented in this encounter Care Teams Contracts Analyst Relationship Specialty Start Date End Date Ernie Noriega MD [address] [place] [address] PCP - General Internal Medicine 08/25/19 documented as of this encounter
--- OUTSIDE RECORDS SUMMARY | 2025-02-10 09:44 | XMS_ITS | Encounter Summary ---
Author Organization [employer] [facility] Address [address] [place] [address] 7 [place] [address] Care Team Providers Care Quality Assurance Associate Name Role Phone Ernie Noriega MD Primary Care Provide r Encounter Details Date Type Department Care Team (Late st Contact Info) Description 02/18/2023 Abstract [facility] MEDICINE [address] [place] [address] [phone] Ernie Noriega MD [address] [place] [address] [phone] Social History Tobacco Use Types Packs/Day Years [...] 2:15 PM EDT Office Visit [facility] MEDICINE [address] [place] [address] [phone] Ernie Noriega MD [address] [place] [address] [phone] documented as of this encounter Procedures Procedure [...] documented as of this encounter Care Teams Quality Assurance Associate Relationship Specialty Start Date End Date Ernie Noriega MD [address] [place] [phone] PCP - General Internal Medicine 08/25/19 documented as of this encounter
--- OUTSIDE RECORDS SUMMARY | 2025-02-10 09:44 | XMS_ITS | Encounter Summary ---
Author Organization [employer] Address [address] [place] [address] 7t [place] [address] Care Team Providers Care Sewing Machine Tester Name Role Phone Ernie Noriega MD Primary Care Provide r Reason for Visit * Reason Onset Date Comments Med Refill 11/04/2023 Encounter Details Date Type Department Care Team ([facility] st Contact Info) Description 11/04/[address] [facility] MEDICINE 230 [place] [address] Ernie Noriega MD [address] [place] [address] Chronic midline low back pain without sciatica; [...] Office Visit [facility] MEDICINE [address] [place] [address] Ernie Noriega MD [address] [place] [address] documented as of this encounter Visit Diagnoses Diagnosis Chronic midline low back pain without sciatica Cervical radiculopathy Brachial neuritis or radiculitis nos Seasonal allergies Allergic rhinitis, cause unspecified documented in this encounter Additional Health Concerns Assessment Noted Time PHQ-9 Depression Total Score: 0 12/02/19 23 2:38 PM EST documented as of this encounter Care Teams Sewing Machine Tester Relationship Specialty Start Date End Date Ernie Noriega MD [address] [place] [address] PCP - General Internal Medicine 08/25/19 documented as of this encounter
--- OUTSIDE RECORDS SUMMARY | 2025-02-10 09:44 | XMS_ITS | Encounter Summary ---
Author Organization [employer] Address [address] [place] [address] 7t [place] [address] Care Team Providers Care Cloth Beamer Name Role Phone Ernie Noriega MD Primary Care Provide r Reason for Visit * Reason Onset Date Comments Med Refill 10/27/2023 Encounter Details Date Type Department Care Team ([facility] st Contact Info) Description 10/27/2023 Refill [facility] [address] [place] [address] Perlita Woody MD 230 [place] [address] Primary hypertension Social History Tobacco Use Types [...] Office Visit [facility] MEDICINE [address] [place] [address] Ernie Noriega MD [address] [place] [address] documented as of this encounter Visit Diagnoses Diagnosis Primary hypertension Unspecified essential hypertension documented in this encounter Additional Health Concerns Assessment Noted Time PHQ-9 Depression Total Score: 0 12/02/19 23 2:38 PM EST documented as of this encounter Care Teams Cloth Beamer Relationship Specialty Start Date End Date Ernie Noriega MD [address] [place] [address] PCP - General Internal Medicine 08/25/19 documented as of this encounter
--- OUTSIDE RECORDS SUMMARY | 2025-02-10 09:44 | XMS_ITS | Encounter Summary ---
Author Organization [employer] Address [address] [place] [address] 7t [place] [address] Care Team Providers Care Senior Government Program Analyst Name Role Phone Ernie Noriega MD Primary Care Provide r Reason for Visit * Reason Comments Med Refill Encounter Details Date Type Department Care Team ([facility] st Contact Info) Description 07/28/2024 Refill [facility] MEDICINE 230 [place], [place] [phone] Ernie Noriega MD 230 [place] [address] Primary osteoarthritis of knee, unspecified laterality Social [...] Description 04/13/2025 2:15 PM EDT Office Visit [facility] MEDICINE [address] [place] [address] Ernie Noriega MD [address] [place] [address] documented as of this encounter Visit Diagnoses Diagnosis Primary osteoarthritis of knee, unspecified laterality documented in this encounter Additional Health Concerns Assessment Noted Time PHQ-9 Depression Total Score: 2 01/21/20 24 1:25 PM EDT documented as of this encounter Care Teams Senior Government Program Analyst Relationship Specialty Start Date End Date Ernie Noriega MD [address] [place] [phone] PCP - General Internal Medicine 08/25/19 documented as of this encounter
--- OUTSIDE RECORDS SUMMARY | 2025-02-10 09:44 | XMS_ITS | Encounter Summary ---
Author Organization [employer] Address [address] [place] [address] 7t [place] [address] Care Team Providers Care Music Cataloguer Name Role Phone Ernie Noriega MD Primary Care Provide r Reason for Visit * Reason Onset Date Comments Med Refill 11/07/2024 Encounter Details Date Type Department Care Team ([facility] st Contact Info) Description 11/07/2024 Refill [facility] MEDICINE 230 [place] [address] Ernie Noriega MD [address] [place] [address] Chronic midline low back pain without sciatica [...] [facility] MEDICINE [address] [place] [address] Ernie Noriega MD [address] [place] [address] documented as of this encounter Visit Diagnoses Diagnosis Chronic midline low back pain without sciatica documented in this encounter Additional Health Concerns Assessment Noted Time PHQ-9 Depression Total Score: 2 01/21/20 24 1:25 PM EDT documented as of this encounter Care Teams Music Cataloguer Relationship Specialty Start Date End Date Ernie Noriega MD [address] [place] [address] PCP - General Internal Medicine 08/25/19 documented as of this encounter
--- OUTSIDE RECORDS SUMMARY | 2025-02-10 09:44 | XMS_ITS | Encounter Summary ---
Author Organization [employer] Address [address] [place] [address] 7t [place] [address] Care Team Providers Care Quality Assurance Lab Technician Name Role Phone Ernie Noriega MD Primary Care Provide r Reason for Visit * Reason Onset Date Comments Med Refill 08/12/2024 Encounter Details Date Type Department Care Team ([facility] st Contact Info) Description 08/12/2024 Refill [facility] MED[facility]INE [address] [place] [address] Ilsa Robison, ANP [address] [place] [address] Primary osteoarthritis of knee, unspecified laterality Social [...] Visit [facility] MEDICINE [address] [place] [address] Ernie Noriega MD [address] [place] [address] documented as of this encounter Visit Diagnoses Diagnosis Primary osteoarthritis of knee, unspecified laterality documented in this encounter Additional Health Concerns Assessment Noted Time PHQ-9 Depression Total Score: 2 01/21/20 24 1:25 PM EDT documented as of this encounter Care Teams Quality Assurance Lab Technician Relationship Specialty Start Date End Date Ernie Noriega MD [address] [place] [address] PCP - General Internal Medicine 08/25/19 documented as of this encounter
--- OUTSIDE RECORDS SUMMARY | 2025-02-10 09:44 | XMS_ITS | Encounter Summary ---
Author Organization [employer] Address [address] [place] [address] 7t [place] [address] Care Team Providers Care Plastics Scientist Name Role Phone Ernie Noriega MD Primary Care Provide r Reason for Visit * Reason Onset Date Comments Med Refill 08/13/2024 Encounter Details Date Type Department Care Team ([facility] st Contact Info) Description 08/13/2024 Refill [facility] MEDICINE 230 [place] [address] Ernie Noriega MD [address] [place] [address] Seasonal allergies Social History Tobacco Use Types [...] Description 04/13/2025 2:15 PM EDT Office Visit [facility] MEDICINE [address] [place] [address] Ernie Noriega MD 230 [place] [address] documented as of this encounter Visit Diagnoses Diagnosis Seasonal allergies Allergic rhinitis, cause unspecified documented in this encounter Additional Health Concerns Assessment Noted Time PHQ-9 Depression Total Score: 2 01/21/20 24 1:25 PM EDT documented as of this encounter Care Teams Plastics Scientist Relationship Specialty Start Date End Date Ernie Noriega MD [address] [place] [address] PCP - General Internal Medicine 08/25/19 documented as of this encounter
--- OUTSIDE RECORDS SUMMARY | 2025-02-10 09:44 | XMS_ITS | Encounter Summary ---
Author Organization [employer] Address [address] [place] [address] 7 [place] [address] Care Team Providers Care Rehab Care Assistant Name Role Phone Ernie Noriega MD Primary Care Provide r Reason for Visit * Reason Onset Date Comments Med Refill 10/25/2023 Encounter Details Date Type Department Care Team ([facility] st Contact Info) Description 10/25/2023 Refill [facility] [address] [place] [address] Ernie Noriega MD [address] [place] [address] Social History Tobacco Use Types Packs/Day Years [...] [facility] [address] [place] [address] Ernie Noriega MD [address] [place] [address] documented as of this encounter Visit Diagnoses Not on filedocumented in this encounter Additional Health Concerns Assessment Noted Time PHQ-9 Depression Total Score: 0 12/02/19 23 2:38 PM EST documented as of this encounter Care Teams Rehab Care Assistant Relationship Specialty Start Date End Date Ernie Noriega MD [address] [place] [address] PCP - General Internal Medicine 08/25/19 documented as of this encounter
--- OUTSIDE RECORDS SUMMARY | 2025-02-10 09:44 | XMS_ITS | Encounter Summary ---
Author Organization [employer] Address [address] [place] [address] 7t [place] [address] Care Team Providers Care Knit Tubing Dyer Name Role Phone Ernie Noriega MD Primary Care Provide r Reason for Visit * Reason Onset Date Comments Nurse Triage 12/22/2024 Encounter Details Date Type Department Care Team ([facility] st Contact Info) Description 12/22/2024 Telephone [facility] [address] [place] [address] Ernie Noriega MD [address] [place] [address] Nurse Triage Social History Tobacco Use Types [...] 12/22/2024 10:03 AM EDT Called pt. Via [employer] supervisor facepiece line [phone] [address]. Pt. States that she went to [...] leg pain now Please contact pt at [phone]. (Greek Speaker) documented in this encounter Plan of Treatment Upcoming Encounters Date Type Department Care Team (Late st Contact Info) Description 04/13/2025 2:15 PM EDT Office Visit [facility] [address] [place] [address] Ernie Noriega MD [address] [place] [address] documented as of this encounter Visit Diagnoses Not on filedocumented in this encounter Additional Health Concerns Assessment Noted Time PHQ-9 Depression Total Score: 2 01/21/20 24 1:25 PM EDT documented as of this encounter Care Teams Knit Tubing Dyer Relationship Specialty Start Date End Date Ernie Noriega MD [address] [place] [address] PCP - General Internal Medicine 08/25/19 documented as of this encounter
--- OUTSIDE RECORDS SUMMARY | 2025-02-10 09:44 | XMS_ITS | Encounter Summary ---
Author Organization [facility] Address [address] [place] [address] Care Team Providers Care Tank Car Reconditioner Name Role Phone rEnie Merritt Primary Care Provider + Reason for Visit * Reason Onset Date Comments PAC Order Request 01/31/2025 Encounter Details Date Type Department Care Team (Late st Contact Info) Description 01/31/2025 Telephone [facility] [address] [place] [address] Telephone Intake, Staff PAC Order Request Social History Tobacco Use Types Packs/Day [...] encounter Miscellaneous Notes * Telephone Encounter - Rubin Navas - 01/31/2025 2:39 PM EDT Email sent to PAC on 01/24. Second request for auth sent today. We need auth prior to faxing caroline Marrero. * Telephone Encounter - Tess Zelaya - 01/31/2025 10:22 AM EDT What lab are you looking for? Physical or Follow up Medication change? Imaging Order Where would you like to go? (Location and Address if not a [facility]) [facility] Fax number of lab (if not [facility]): Pt unsure of the fax number Any question please contact the pt's back at the number listed? @[phone] Thanks documented in this encounter Plan of Treatment Upcoming Encounters Date Type Department Care Team (Late st Contact Info) Description 03/14/2025 3:00 PM EDT Follow-Up [facility] [address] [place] [address] Christopher Peres MD [address] [place] [address] documented as of this encounter Visit Diagnoses Not on filedocumented in this encounter Care Teams Tank Car Reconditioner Relationship Specialty Start Date End Date Ernie Merritt [address] [place] [address] PCP - General Internal Medicine 11/29/24 documented as of this encounter
--- OUTSIDE RECORDS SUMMARY | 2025-02-10 09:44 | XMS_ITS | Encounter Summary ---
Author Organization [employer] Address [address] [place] [address] 7t [place] [address] Care Team Providers Care Enterprise Analyst Name Role Phone Ernie Noriega MD Primary Care Provide r Reason for Visit * Reason Onset Date Comments Med Refill 10/25/2023 Encounter Details Date Type Department Care Team ([facility] st Contact Info) Description 10/25/2023 Refill [facility] [address] [place] [address] Perlita Woody MD [address] [place] [address] Primary hypertension Social History Tobacco Use Types [...] 04/13/2025 2:15 PM EDT [facility] [address] [place] [address] Ernie Noriega MD [address] [place] [address] documented as of this encounter Visit Diagnoses Diagnosis Primary hypertension Unspecified essential hypertension documented in this encounter Additional Health Concerns Assessment Noted Time PHQ-9 Depression Total Score: 0 12/02/19 23 2:38 PM EST documented as of this encounter Care Teams Enterprise Analyst Relationship Specialty Start Date End Date Ernie Noriega MD [address] [place] [address] PCP - General Internal Medicine 08/25/19 documented as of this encounter
--- OUTSIDE RECORDS SUMMARY | 2025-02-10 09:44 | XMS_ITS | Clinical Summary ---
Author Organization [facility] Address [address] [place] [address] Care Team Providers Care Processing Technician Name Role Phone Ernie Merritt Primary [...] propionate (FLONASE) 50 mcg/actuation nasal spray SMARTSI Lindsay(s) Both Nares Twice Daily 3 Active tamsulosin [...] Encounters Date Type Department Care Team Description 01/31/2025 Telephone [facility] [address] [place] [address] Telephone Intake, Staff PAC Order Request 12/14/2024 9:00 AM EST Office Visit [facility] [address] [place] [address] Christopher Peres MD Chronic bilateral low back pain with bilateral sciatica (Primary Dx); H/O cervical spine surgery 12/13/2024 Telephone [facility] [address] [place] [address] Christopher Peres MD 12/08/2024 Telephone [facility] [address] [place] [address] Christopher Peres MD from Last 3 Months Social History Tobacco [...] Description 03/14/2025 3:00 PM EDT Follow-Up [facility] [address] [place], [place] [phone] Christopher Peres MD [address] [place], [place] [phone] Health Maintenance Due Date Last Done Comments [...] complete this topic Procedures * Due to [facility] law, this organization might not be sharing [...] bilateral low back pain with bilateral sciatica from Last 3 Months Results * Due to [place] [employer] law, this organization might not be sharing negative HIV tests. * MRI Cervical Spine WO Contrast (12/21/2024 7:55 AM EDT) Anatomical Region Laterality Modality Spine, C-spine Magnetic Resonan ce 12/21/2024 7:30 AM EDT Narrative 12/22/2024 2:31 PM EDT [facility] Accession Number: [id number] Patient Name: Miguelina Julien Date of : 1965 Date of Exam: 12-21-2024 Referring Physician: Christopher Peres ?[facility] ?[address] [place] [address] ?[place] [address] Exam: MR Cervical Spine (C-) CPT 36520 Room Description: [facility] 1.5 MR Cervical Spine (C-) CPT 76148 INDICATION: previous C spine surgery, appears tight on MRI T spine consumer product advisor ?? TECHNIQUE: Multiplanar, multisequence MRI of the [...] Note Provider, Porsche - 12/22/2024 [facility] Accession Number: [id number] Patient Name: Miguelina Julien Date of : 1965 Date of Exam: 12-21-2024 Referring Physician: Christopher Peres [place] [address] Exam: MR Cervical Spine (C-) CPT 19115 [facility] MR Cervical Spine (C-) CPT 21560 INDICATION: previous C spine surgery, appears tight on MRI T spine consumer product advisor TECHNIQUE: Multiplanar, multisequence MRI of the cervical [...] obtain the completed interpretation. ? Workstation ID: [id number] Narrative 12/14/2024 5:30 PM EST COMPARISON: There are no prior studies available for comparison at this time. Resulting Agency Comment [id number] Procedure Note Stone Reid MD - 12/14/2024 [...] possible to obtain thecompleted interpretation. Workstation ID: [id number] us Christopher Peres MD IMG XR PROCEDURES [...] obtain the completed interpretation. ? Workstation ID: [id number] Narrative 12/14/2024 5:30 PM EST COMPARISON: There are no prior studies available for comparison at this time. Resulting Agency Comment [id number] Procedure Note Stone Reid MD - 12/14/2024 [...] possible to obtain thecompleted interpretation. Workstation ID: [id number] Christopher Peres MD IMG XR PROCEDURES Final Res ult from Last 3 Months Insurance [facility] [place] [id number] Care Teams Processing Technician Relationship Specialty Start Date End Date Ernie Merritt [address] [place] [address] PCP - General Internal Medicine 11/29/24
--- OUTSIDE RECORDS SUMMARY | 2025-02-10 09:44 | XMS_ITS | Encounter Summary ---
Author Organization [employer] Address [address] [place] [address] 7t [place] [address] Care Team Providers Care News Video Editor Name Role Phone Ernie Noriega MD Primary Care Provide r Reason for Visit * Reason Onset Date Comments Med Refill 04/24/2024 Encounter Details Date Type Department Care Team ([facility] st Contact Info) Description 04/24/2024 Refill [facility] [address] [place] [address] Ernie Noriega MD [address] [place] [address] Essential hypertension Social History Tobacco Use Types [...] Description 04/13/2025 2:15 PM EDT Office Visit [facility] [address] [place] [address] Ernie Noriega MD [address] [place] [address] documented as of this encounter Visit Diagnoses Diagnosis Essential hypertension Unspecified essential hypertension documented in this encounter Additional Health Concerns Assessment Noted Time PHQ-9 Depression Total Score: 2 01/21/20 24 1:25 PM EDT documented as of this encounter Care Teams News Video Editor Relationship Specialty Start Date End Date Ernie Noriega MD [address] [place] [address] PCP - General Internal Medicine 08/25/19 documented as of this encounter
--- OUTSIDE RECORDS SUMMARY | 2025-02-10 09:44 | XMS_ITS | Encounter Summary ---
Author Organization [employer] [facility] Address [address] [place] [address] 7t [place] [address] Care Team Providers Care Hand Former Helper Name Role Phone Ernie Noriega MD Primary Care Provide r Encounter Details Date Type Department Care Team (Late st Contact Info) Description 04/13/2023 Orders Only [facility] MEDICINE [address] [place] [phone] Sugar Mitchell MD [address] [place] [address] [phone] Neuropathic pain of right lower extremity (Primary [...] PM EDT Office Visit [facility] MED[facility]INE [address] [place] [address] Ernie Noriega MD [address] [place], [place] [phone] documented as of this encounter Procedures Procedure [...] 1.210.Chronic Kidney Disease: Estimated GFR < 60 mL/min/1.28h3Ovftjo Kidney Disease: Estimated GFR < 15 mL/min/1.73m2 Glucose 151(H) 60 - 115 mg/dL [facility] Calcium 9.3 8.4 - 10.2 mg/dL [facility] Blood Venous blood specimen / Unknown 05/13/2023 8:40 AM EDT 05/13/2023 11:14 AM EDT us Sugar Mitchell MD LAB BLOOD ORDERABLES Final Resul t [facility] [address] [place] [address] [phone] documented in this encounter Visit Diagnoses Diagnosis Neuropathic pain of right lower extremity- Primary documented in this encounter Additional Health Concerns Assessment Noted Time PHQ-9 Depression Total Score: 0 12/02/19 23 2:38 PM EST documented as of this encounter Care Teams Hand Former Helper Relationship Specialty Start Date End Date Ernie Noriega MD [address] [place] [address] PCP - General Internal Medicine 08/25/19 documented as of this encounter
--- OUTSIDE RECORDS SUMMARY | 2025-02-10 09:44 | XMS_ITS | Encounter Summary ---
Author Organization [employer] Address [address] [place] [address] 7t [place] [address] Care Team Providers Care Director Of Services Name Role Phone Ernie Noriega MD Primary Care Provide r Reason for Visit * Reason Onset Date Comments Med Refill 11/03/2023 Encounter Details Date Type Department Care Team ([facility] st Contact Info) Description 11/03/2023 Refill [facility] [address] [place] [address] Ernie Noriega MD [address] [place] [address] Seasonal allergies Social History Tobacco Use Types Packs/Day Years Used Date Smoking Tobacco: Former Cigarettes Passive Smoke Exposure: Past Smokeless Tobacco: Never Alcohol Use Standard Drinks/Week Comments Never 0 (1 standard drink = 0.6 oz pur e alcohol) Depression Answer Date Recorded Patient Health Questionnaire-9 Score 0 12/02/2022 Housing Stability Answer Date Recorded What is your housing situation today? I have rboin ramírez 07/29/[address] you [...] EDT Office Visit [facility] [address] [place] [address] Ernie Noriega MD [address] [place] [address] documented as of this encounter Visit Diagnoses Diagnosis Seasonal allergies Allergic rhinitis, cause unspecified documented in this encounter Additional Health Concerns Assessment Noted Time PHQ-9 Depression Total Score: 0 12/02/19 23 2:38 PM EST documented as of this encounter Care Teams Director Of Services Relationship Specialty Start Date End Date Ernie Noriega MD [address] [place] [address] PCP - General Internal Medicine 08/25/19 documented as of this encounter
--- OUTSIDE RECORDS SUMMARY | 2025-02-10 09:44 | XMS_ITS | Encounter Summary ---
Author Organization [employer] Address [address] [place] [address] 7t [place] [address] Care Team Providers Care Reading Instructor Name Role Phone Ernie Noriega MD Primary Care Provide r Reason for Visit * Reason Onset Date Comments Med Refill 01/10/2025 Encounter Details Date Type Department Care Team ([facility] st Contact Info) Description 01/10/2025 Refill [facility] MED[facility]INE [address] [place] [address] Ernie Noriega MD [address] [place] [address] Chronic midline low back pain without sciatica [...] 04/13/2025 2:15 PM EDT Office Visit [facility] [address] [place] [address] Ernie Noriega MD [address] [place] [address] documented as of this encounter Visit Diagnoses Diagnosis Chronic midline low back pain without sciatica documented in this encounter Additional Health Concerns Assessment Noted Time PHQ-9 Depression Total Score: 2 01/21/20 24 1:25 PM EDT documented as of this encounter Care Teams Reading Instructor Relationship Specialty Start Date End Date Ernie Noriega MD [address] [place] [address] PCP - General Internal Medicine 08/25/19 documented as of this encounter
--- OUTSIDE RECORDS SUMMARY | 2025-02-10 09:44 | XMS_ITS | Encounter Summary ---
Author Organization [employer] Address [address] [place] [address] 7t [place] [address] Care Team Providers Care Cash Register Operator Name Role Phone Ernie Noriega MD Primary Care Provide r Reason for Visit * Reason Comments Med Refill Encounter Details Date Type Department Care Team ([facility] st Contact Info) Description 10/16/2023 Refill [facility] [address] [place], [place] [phone] Ernie Noriega MD [address] [place] [address] Pain Social History Tobacco Use Types Packs/Day [...] 04/13/2025 2:15 PM EDT Office Visit [facility] [address] [place] [address] Ernie Noriega MD [address] [place] [address] documented as of this encounter Visit Diagnoses Diagnosis Pain Generalized pain documented in this encounter Additional Health Concerns Assessment Noted Time PHQ-9 Depression Total Score: 0 12/02/19 23 2:38 PM EST documented as of this encounter Care Teams Cash Register Operator Relationship Specialty Start Date End Date Ernie Noriega MD [address] [place] [address] PCP - General Internal Medicine 08/25/19 documented as of this encounter
--- OUTSIDE RECORDS SUMMARY | 2025-02-10 09:44 | XMS_ITS | Encounter Summary ---
Author Organization [employer] Address [address] [place] [address] 7t [place] [address] Care Team Providers Care Mixer Driver Name Role Phone Ernie Noriega MD Primary Care Provide r Reason for Visit * Reason Onset Date Comments Med Refill 10/27/2023 Encounter Details Date Type Department Care Team ([facility] st Contact Info) Description 10/27/2023 Refill [facility] [address] [place] [address] Ernie Noriega MD [address] [place] [address] Mild persistent asthma without complication; Pain; Chronic [...] Office Visit [facility] [address] [place] [address] Ernie Noriega MD [address] [place] [address] documented as of this encounter Visit Diagnoses Diagnosis Mild persistent asthma without complication Pain Generalized pain Chronic midline low back pain without sciatica Cervical radiculopathy Brachial neuritis or radiculitis nos documented in this encounter Additional Health Concerns Assessment Noted Time PHQ-9 Depression Total Score: 0 12/02/19 23 2:38 PM EST documented as of this encounter Care Teams Mixer Driver Relationship Specialty Start Date End Date Ernie Noriega MD [address] [place] [address] PCP - General Internal Medicine 08/25/19 documented as of this encounter
--- OUTSIDE RECORDS SUMMARY | 2025-02-10 09:44 | XMS_ITS | Encounter Summary ---
Author Organization [employer] Address [address] [place] [address] 7t [place] [address] Care Team Providers Care Dye Tub Operator Name Role Phone Ernie Noriega MD Primary Care Provide r Reason for Visit * Reason Onset Date Comments Med Refill 01/26/2024 Encounter Details Date Type Department Care Team ([facility] st Contact Info) Description 01/26/2024 Refill [facility] [address] [place] [address] Ilsa Robison, ANP [address] [place] [address] Chronic midline low back pain without sciatica; [...] Description 04/13/2025 2:15 PM EDT Office Visit [facility] [address] [place] [address] Ernie Noriega MD [address] [place] [address] documented as of this encounter Visit Diagnoses Diagnosis Chronic midline low back pain without sciatica Cervical radiculopathy Brachial neuritis or radiculitis nos documented in this encounter Additional Health Concerns Assessment Noted Time PHQ-9 Depression Total Score: 2 01/21/20 24 1:25 PM EDT documented as of this encounter Care Teams Dye Tub Operator Relationship Specialty Start Date End Date Ernie Noriega MD [address] [place] [address] PCP - General Internal Medicine 08/25/19 documented as of this encounter
--- OUTSIDE RECORDS SUMMARY | 2025-02-10 09:44 | XMS_ITS | Encounter Summary ---
Author Organization [employer] Address [address] [place] [address] 7t [place] [address] Care Team Providers Care Medical Records Receptionist Name Role Phone Ernie Noriega MD Primary Care Provide r Reason for Visit * Reason Onset Date Comments Med Refill 04/16/2024 Encounter Details Date Type Department Care Team ([facility] st Contact Info) Description 04/16/2024 Refill [facility] [address] [place] [address] Ernie Noriega MD [address] [place] [address] Essential hypertension Social History Tobacco Use Types [...] [facility] [address] [place] [address] Ernie Noriega MD [address] [place] [address] documented as of this encounter Visit Diagnoses Diagnosis Essential hypertension Unspecified essential hypertension documented in this encounter Additional Health Concerns Assessment Noted Time PHQ-9 Depression Total Score: 2 01/21/20 24 1:25 PM EDT documented as of this encounter Care Teams Medical Records Receptionist Relationship Specialty Start Date End Date Ernie Noriega MD [address] [place] [address] PCP - General Internal Medicine 08/25/19 documented as of this encounter
--- OUTSIDE RECORDS SUMMARY | 2025-02-10 09:44 | XMS_ITS | Encounter Summary ---
Author Organization [employer] Address [address] [place] [address] 7t [place] [address] Care Team Providers Care Clinical Trial Assistant Name Role Phone Ernie Noriega MD Primary Care Provide r Reason for Visit * Reason Onset Date Comments Med Refill 10/25/2024 Encounter Details Date Type Department Care Team ([facility] st Contact Info) Description 10/25/2024 Refill [facility] [address] [place] [address] Ernie Noriega MD [address] [place] [address] Chronic midline low back pain without sciatica [...] 2:15 PM EDT Office Visit [facility] [address] [place] [address] Ernie Noriega MD [address] [place] [address] documented as of this encounter Visit Diagnoses Diagnosis Chronic midline low back pain without sciatica documented in this encounter Additional Health Concerns Assessment Noted Time PHQ-9 Depression Total Score: 2 01/21/20 24 1:25 PM EDT documented as of this encounter Care Teams Clinical Trial Assistant Relationship Specialty Start Date End Date Ernie Noriega MD [address] [place] [phone] PCP - General Internal Medicine 08/25/19 documented as of this encounter
--- OUTSIDE RECORDS SUMMARY | 2025-02-10 09:44 | XMS_ITS | Encounter Summary ---
Author Organization [employer] Address [address] [place] [address] 7t [place] [address] Care Team Providers Care Window Tinter Name Role Phone Ernie Noriega MD Primary Care Provide r Reason for Visit * Reason Onset Date Comments Med Refill 11/01/2024 Encounter Details Date Type Department Care Team ([facility] st Contact Info) Description 11/01/2024 Refill [facility] [address] [place] [address] Sugar Mitchell MD [address] [place] [address] Seasonal allergies Social History Tobacco Use Types [...] Visit [facility] [address] [place] [address] Ernie Noriega MD [address] [place] [address] documented as of this encounter Visit Diagnoses Diagnosis Seasonal allergies Allergic rhinitis, cause unspecified documented in this encounter Additional Health Concerns Assessment Noted Time PHQ-9 Depression Total Score: 2 01/21/20 24 1:25 PM EDT documented as of this encounter Care Teams Window Tinter Relationship Specialty Start Date End Date Ernie Noriega MD [address] [place] [address] PCP - General Internal Medicine 08/25/19 documented as of this encounter
--- OUTSIDE RECORDS SUMMARY | 2025-02-10 09:44 | XMS_ITS | Encounter Summary ---
Author Organization [employer] Address [address] [place] [address] 7 [place] [address] Care Team Providers Care Pencil Sorter Name Role Phone Ernie Noriega MD Primary Care Provide r Reason for Visit * Reason Onset Date Comments Med Refill 01/31/2025 Encounter Details Date Type Department Care Team ([facility] st Contact Info) Description 01/31/2025 Refill [facility] MEDICINE [address] [place] [address] Ernie Noriega MD [address] [place] [address] Pain Social History Tobacco Use Types Packs/Day [...] Description 04/13/2025 2:15 PM EDT Office Visit [facility] MEDICINE [address] [place] [address] Ernie Noriega MD [address] [place] [address] documented as of this encounter Visit Diagnoses Diagnosis Pain Generalized pain documented in this encounter Additional Health Concerns Assessment Noted Time PHQ-9 Depression Total Score: 4 01/13/20 25 2:57 PM EDT documented as of this encounter Care Teams Pencil Sorter Relationship Specialty Start Date End Date Ernie Noriega MD [address] [place] [address] PCP - General Internal Medicine 08/25/19 documented as of this encounter
--- OUTSIDE RECORDS SUMMARY | 2025-02-10 09:44 | XMS_ITS | Referral Summary ---
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); H/O cervical spine surgery 12/13/2024 Telephone [facility] [address] [place] [address] Christopher Peres MD 12/08/2024 Telephone [facility] [address] [place] [address] Christopher Peres MD from Last 3 Months Allergies No known [...] propionate (FLONASE) 50 mcg/actuation nasal spray [employer] [place](s) Both Nares Twice Daily 3 Active tamsulosin [...] Info) Description 03/14/2025 3:00 PM EDT Follow-Up [facility] [address] [place], [place] [phone] Christopher Peres MD [address] [place], [place] [phone] Procedures * Due to [place] [employer] law, this organization might not be sharing [...] 3 Months Results * Due to [place] [employer] law, this organization might not be sharing negative HIV tests. * MRI Cervical Spine WO Contrast (12/21/2024 7:55 AM EDT) Anatomical Region Laterality Modality Spine, C-spine Magnetic Resonan ce 12/21/2024 7:30 AM EDT Narrative 12/22/2024 2:31 PM EDT [facility] Accession Number: [id number] Patient Name: Miguelina Julien Date of : 1965 Date of Exam: 12-21-2024 Referring Physician: Christopher Peres ?[facility] ?[address] [place] [address] ?[place], [place] [address] Exam: MR Cervical Spine (C-) CPT 75127 Room Description: [facility] 1.5 MR Cervical Spine (C-) CPT 67545 INDICATION: previous C spine surgery, appears tight on MRI T spine research analyst ?? TECHNIQUE: Multiplanar, multisequence MRI of the [...] MD Procedure Note Provider, Porsche - 12/22/2024 [facility] Accession Number: [id number] Patient Name: Miguelina Julien Date of : 1965 Date of Exam: 12-21-2024 Referring Physician: Christopher Peres [place] [id number] Exam: MR Cervical Spine (C-) CPT 73420 Room Description: [facility] 1.5 MR Cervical Spine (C-) CPT 21970 INDICATION: previous C spine surgery, appears tight on MRI T spine research analyst TECHNIQUE: Multiplanar, multisequence MRI of the cervical [...] By: Priti Mendez MD Christopher Peres MD IMG MRI PROCEDURES Final [...] obtain the completed interpretation. ? Workstation ID: [id number] Narrative 12/14/2024 5:30 PM EST COMPARISON: There are no prior studies available for comparison at this time. Resulting Agency Comment [id number] Procedure Note Stone Reid MD - 12/14/2024 [...] possible to obtain thecompleted interpretation. Workstation ID: [id number] us Christopher Peres MD IMG XR PROCEDURES [...] obtain the completed interpretation. ? Workstation ID: [id number] Narrative 12/14/2024 5:30 PM EST COMPARISON: There are no prior studies available for comparison at this time. Resulting Agency Comment [id number] Procedure Note Stone Reid MD - 12/14/2024 [...] possible to obtain thecompleted interpretation. Workstation ID: [id number] us Christopher Peres MD IMG XR PROCEDURES Final Res ult from Last 3 Months Insurance Care Teams Bakery Decorator Relationship Specialty Start Date End Date Ernie Merritt [address] [place] [address] [place] [address] PCP - General Internal Medicine 11/29/24
--- OUTSIDE RECORDS SUMMARY | 2025-02-10 09:44 | XMS_ITS | Encounter Summary ---
Author Organization [employer] [facility] Address [address] [place] [address] 7t [place] [address] Care Team Providers Care Prosthodontist/Owner Name Role Phone Ernie Noriega MD Primary Care Provide r Encounter Details Date Type Department Care Team (Latest Contact Info) Description 03/07/2021 Abstract [facility] CONVERSIONS Dental, Provider, DDS Social History [...] Description 04/13/2025 2:15 PM EDT Office Visit [facility] MEDICINE [address] [place] [address] Ernie Noriega MD [address] [place] [address] documented as of this encounter Visit Diagnoses Not on filedocumented in this encounter Care Teams Prosthodontist/Owner Relationship Specialty Start Date End Date Ernie Noriega MD [address] [place] [address] PCP - General Internal Medicine 08/25/19 documented as of this encounter
--- OUTSIDE RECORDS SUMMARY | 2025-02-10 09:45 | XMS_ITS | Encounter Summary ---
Author Organization [employer] Address [address] [place] [address] 7t [place] [address] Care Team Providers Care Hvac Residential Service Technician Name Role Phone Ernie Noriega MD Primary Care Provide r Reason for Visit * Reason Comments Med Refill Encounter Details Date Type Department Care Team ([facility] st Contact Info) Description 08/28/2023 Refill [facility] [address] [place] [address] Perlita Woody MD [address] [place] [address] Primary hypertension Social History Tobacco Use Types [...] Description 04/13/2025 2:15 PM EDT Office Visit [facility] MEDICINE [address] [place] [address] Ernie Noriega MD [address] [place] [address] documented as of this encounter Visit Diagnoses Diagnosis Primary hypertension Unspecified essential hypertension documented in this encounter Additional Health Concerns Assessment Noted Time PHQ-9 Depression Total Score: 0 12/02/19 23 2:38 PM EST documented as of this encounter Care Teams Hvac Residential Service Technician Relationship Specialty Start Date End Date Ernie Noriega MD [address] [place] [address] PCP - General Internal Medicine 08/25/19 documented as of this encounter
--- OUTSIDE RECORDS SUMMARY | 2025-02-10 09:45 | XMS_ITS | Encounter Summary ---
Author Organization [employer] Address [address] [place] [address] 7t [place] [address] Care Team Providers Care Bark Skinner Name Role Phone Ernie Noriega MD Primary Care Provide r Reason for Visit * Reason Onset Date Comments Med Refill 09/28/2024 Encounter Details Date Type Department Care Team ([facility] st Contact Info) Description 09/28/2024 Refill [facility] MEDICINE [address] [place] [address] Ernie Noriega MD [address] [place] [address] Chronic midline low back pain without sciatica; [...] Description 04/13/2025 2:15 PM EDT Office Visit [facility] MEDICINE [address] [place] [address] Ernie Noriega MD [address] [place] [address] documented as of this encounter Visit Diagnoses Diagnosis Chronic midline low back pain without sciatica Cervical radiculopathy Brachial neuritis or radiculitis nos documented in this encounter Additional Health Concerns Assessment Noted Time PHQ-9 Depression Total Score: 2 01/21/20 24 1:25 PM EDT documented as of this encounter Care Teams Bark Skinner Relationship Specialty Start Date End Date Ernie Noriega MD [address] [place] [address] PCP - General Internal Medicine 08/25/19 documented as of this encounter
--- OUTSIDE RECORDS SUMMARY | 2025-02-10 09:45 | XMS_ITS | Encounter Summary ---
Author Organization [employer] Address [address] [place] [address] 7t [place] [address] Care Team Providers Care Catering Barista Name Role Phone Ernie Noriega MD Primary Care Provide r Reason for Visit * Reason Onset Date Comments verbal order 11/21/2022 Encounter Details Date Type Department Care Team (Late Contact Info) Description 11/21/2022 Telephone [facility] MEDICINE [address] [place] [address] Ernie Noriega MD [address] [place] [address] verbal order Social History Tobacco Use Types [...] 1:08 PM EST Tc from Baldemar from [facility] calling to inform pt started home services today . Baldemar is also requesting a verbal order for pt to start physical therapy for 2x a week for 4 weeks . Best contact # [phone]. documented in this encounter Plan of Treatment Upcoming Encounters Date Type Department Care Team (Late Contact Info) Description 04/13/2025 2:15 PM EDT Office Visit [facility] MED[facility] [address] [facility] [place] [address] Ernie Noriega MD [address] [place] [address] documented as of this encounter Visit Diagnoses Not on filedocumented in this encounter Care Teams Catering Barista Relationship Specialty Start Date End Date Ernie Noriega MD [facility] [place] [address] PCP - General Internal Medicine 08/25/19 documented as of this encounter
--- OUTSIDE RECORDS SUMMARY | 2025-02-10 09:45 | XMS_ITS | Encounter Summary ---
Author Organization [employer] Address [address] [facility] 7t [place] [address] Care Team Providers Care Telegraph Repeater Technician Name Role Phone Ernie Noriega MD Primary Care Provide r Reason for Visit * Reason Onset Date Comments Med Refill 09/18/2023 Encounter Details Date Type Department Care Team ([facility] st Contact Info) Description 09/18/2023 Refill [facility] MED & PEDS [address] [place] [address] Ernie Noriega MD 230 [place] [address] Chronic midline low back pain without sciatica; [...] 2:15 PM EDT Office Visit [facility] MEDICINE [address] [place] [address] Ernie Noriega MD [address] [place] [address] documented as of this encounter Visit Diagnoses Diagnosis Chronic midline low back pain without sciatica Cervical radiculopathy Brachial neuritis or radiculitis nos documented in this encounter Additional Health Concerns Assessment Noted Time PHQ-9 Depression Total Score: 0 12/02/19 23 2:38 PM EST documented as of this encounter Care Teams Telegraph Repeater Technician Relationship Specialty Start Date End Date Ernie Noriega MD [address] [place] [address] PCP - General Internal Medicine 08/25/19 documented as of this encounter
--- OUTSIDE RECORDS SUMMARY | 2025-02-10 09:45 | XMS_ITS | Encounter Summary ---
Author Organization [employer] Address [address] [place] [address] 7 [place] [address] Care Team Providers Care Lace Burn Out Tender Name Role Phone Ernie Noriega MD Primary Care Provide r Reason for Visit * Reason Onset Date Comments Medication Question 10/03/2022 returning call 10/03/2022 Encounter Details Date Type Department Care Team ([facility] st Contact Info) Description 10/03/2022 Telephone [facility] MEDICINE [address] [place] [address] Ernie Noriega MD [address] [place] [address] Medication Question; returning call Social History Tobacco [...] pt returning call Please contact pt at [phone] * Telephone Encounter - Peg Scott RN - 10/10/2022 11:17 AM EST T/C placed to pt x2AM re below message. No answer, left v/m. Will retask to [facility] for third attempt. * Telephone Encounter - Peg Scott RN - 10/08/2022 3:32 PM EST Incoming T/C from Sylvia CAMARILLO from [facility]. She states spoke with GOLF RANGE ATTENDANT who saw pt 09/24. It is not in the OV note (which is located in Epic under Media tab) but that pt reported pain during appt and GOLF RANGE ATTENDANT advised pt speak to her PCP and [...] next month with PCP. Will send to [facility] to attempt second call. [place] sending to PCP as FYI. * Telephone Encounter - Peg Scott RN - 10/08/2022 10:34 AM EST Reviewed most recent note from [facility]. No mention [...] calling to inform was told by her [facility] Physicians DR to request [...] Description 04/13/2025 2:15 PM EDT Office Visit [facility] MEDICINE 230 [facility] [place] [address] Ernie Noriega MD [address] [place] [address] documented as of this encounter Visit Diagnoses Not on filedocumented in this encounter Care Teams Lace Burn Out Tender Relationship Specialty Start Date End Date Ernie Noriega MD [address] [facility] [place] [address] PCP - General Internal Medicine 08/25/19 documented as of this encounter
--- OUTSIDE RECORDS SUMMARY | 2025-02-10 09:45 | XMS_ITS | Encounter Summary ---
Author Organization [employer] Address [address] [place] [address] 7t [place] [address] Care Team Providers Care Farm Loan Representative Name Role Phone Ernie Noriega MD Primary Care Provide r Reason for Visit * Reason Comments Med Refill Encounter Details Date Type Department Care Team ([facility] st Contact Info) Description 10/11/2023 Refill [facility] MEDICINE [address] [place] [address] Ernie Noriega MD [address] [place] [address] Social History Tobacco Use Types Packs/Day Years [...] [facility] MEDICINE [address] [place] [address] Ernie Noriega MD [address] [place] [address] documented as of this encounter Visit Diagnoses Not on filedocumented in this encounter Additional Health Concerns Assessment Noted Time PHQ-9 Depression Total Score: 0 12/02/19 23 2:38 PM EST documented as of this encounter Care Teams Farm Loan Representative Relationship Specialty Start Date End Date Ernie Noriega MD [address] [place] [address] PCP - General Internal Medicine 08/25/19 documented as of this encounter
--- OUTSIDE RECORDS SUMMARY | 2025-02-10 09:45 | XMS_ITS | Encounter Summary ---
Author Organization [employer] [facility] Address [address] [facility] [address] 7t [place] [address] Care Team Providers Care Information Delivery Analyst Name Role Phone Ernie Noriega MD Primary Care Provide r Reason for Visit * Reason Onset Date Comments Med Refill Referral 12/10/2022 Patient walked i n requesting for referral to a neurologist. It is difficult for her to walk and do her morton activities. Pt has had [facility] go to her house for therapy, but it has not made any improvements. Encounter Details Date Type Department Care Team (Late st Contact Info) Description 12/10/2022 Refill [facility] MEDICINE [address] [place], [place] [phone] Ernie Noriega MD [address] [place], [place] [phone] Pain Social History Tobacco Use Types Packs/Day [...] Description 04/13/2025 2:15 PM EDT Office Visit [facility] MEDICINE [address] [place] [address] Ernie Noriega MD [address] [place] [address] documented as of this encounter Visit Diagnoses Diagnosis Pain Generalized pain documented in this encounter Additional Health Concerns Assessment Noted Time PHQ-9 Depression Total Score: 0 12/02/19 23 2:38 PM EST documented as of this encounter Care Teams Information Delivery Analyst Relationship Specialty Start Date End Date Ernie Noriega MD [address] [place] [address] PCP - General Internal Medicine 08/25/19 documented as of this encounter
--- OUTSIDE RECORDS SUMMARY | 2025-02-10 09:45 | XMS_ITS | Encounter Summary ---
Author Organization [facility] Address [address] [place] [address] 7t [place] [address] Care Team Providers Care Procurement Assistant Name Role Phone Ernie Noriega MD Primary Care Provide r Encounter Details Date Type Department Care Team ([facility] [address] [facility] Contact Info) Description 12/09/2022 Orders Only [facility] [address] [place] [address] Suha Alexander, RN Social History Tobacco [...] Upcoming Encounters Date Type Department Care Team ([facility] [address] Contact Info) Description 04/13/2025 2:15 PM EDT Office Visit [facility] MEDICINE 230 [place] [address] Ernie Noriega MD [address] [place] [address] documented as of this encounter Procedures Procedure Name Priority Date/Time Associated Diagnosis Comments BI MAMMOGRAM SCREENING TOMOSYNTHESIS BILATERAL Routine 12/23/2022 11:35 AM EDT documented in this encounter Results * BI Mammogram Screening Tomosynthesis Bilateral (12/23/2022 11:35 AM EDT) Anatomical Region Laterality Modality Breast Bilateral Mammography 12/23/2022 11:3 5 AM EDT Narrative 12/24/2022 5:15 PM EDT ? [facility] ? [address] ?[place] [address] ? Mammography Report ? Signed ? Patient: Miguelina Watson ?MR#: ?? [id number] ? : 1965 ?Acct:[id number] ? Age/Sex: 57 / F ?ADM Date: 12/23/22 ? Loc: HO.MAMMO ? Attending Dr: Ernie Merritt MD ? Ordering Physician: Ernie Merritt MD ?Resu ?? lts: 1Negative ? Date of Service: 12/23/22 ?Follow Up: 1 Year From Orig ?? inal Mammogram ? Procedure(s): MM tomosynthesis screening BI ?? Accession Number(s): [id number] ? cc: Ernie Merritt MD ? EXAMINATION: [...] 1712 ? DD/ 1135 ? TD/TT: ? Cda Teacher: SK ? Procedure Note Tiesha, Rene - 12/24/2022 [facility] [address] [place] [address] Dr. [place], [place] T [address] Mammography Report Signed [facility] [id number] : 1965Acct:[id number] Age/Sex: 57 / FADM Date: 12/23/22 Loc: [facility] Attending Dr: Ernie Merritt MD Ordering Physician: Ernie Merritt MDResu lts: 1Negative Date of Service: 12/23/22Follow Up: 1 Year From Orig inal Mammogram Procedure(s): MM tomosynthesis screening BI Accession Number(s): [id number] cc: Ernie Merritt MD EXAMINATION: MM SCREENING [...] in OV> 12/24/22 1712 DD/ 1135 TD/TT: Cda Teacher: [facility] External Provider IMG BI PROCEDURES Edited Result - Final documented in this encounter Visit Diagnoses Not on filedocumented in this encounter Additional Health Concerns Assessment Noted Time PHQ-9 Depression Total Score: 0 12/02/19 23 2:38 PM EST documented as of this encounter Care Teams Procurement Assistant Relationship Specialty Start Date End Date Ernie Noriega MD [address] [place] [address] PCP - General Internal Medicine 08/25/19 documented as of this encounter
--- OUTSIDE RECORDS SUMMARY | 2025-02-10 09:45 | XMS_ITS | Encounter Summary ---
Author Organization [employer] Address [address] [place] [address] 7t [place] [address] Care Team Providers Care Stamp Analyst Name Role Phone Ernie Noriega MD Primary Care Provide r Reason for Visit * Reason Comments Med Refill Encounter Details Date Type Department Care Team ([facility] st Contact Info) Description 12/25/2023 Refill [facility] MEDICINE [address] [place], [place] [phone] Ernie Noriega MD [address] [place], [place] [phone] Pain; Primary hypertension; Seasonal allergies Social History [...] [facility] MEDIC[facility] [address] [place] [address] Ernie Noriega MD [address] [place] [address] documented as of this encounter Visit Diagnoses Diagnosis Pain Generalized pain Primary hypertension Unspecified essential hypertension Seasonal allergies Allergic rhinitis, cause unspecified documented in this encounter Additional Health Concerns Assessment Noted Time PHQ-9 Depression Total Score: 0 12/02/19 23 2:38 PM EST documented as of this encounter Care Teams Stamp Analyst Relationship Specialty Start Date End Date Ernie Noriega MD [address] [place] [address] PCP - General Internal Medicine 08/25/19 documented as of this encounter
--- OUTSIDE RECORDS SUMMARY | 2025-02-10 09:45 | XMS_ITS | Encounter Summary ---
Author Organization [employer] Address [address] [place] [address] 7t [place] [address] Care Team Providers Care Religious Education Director Name Role Phone Ernie Noriega MD Primary Care Provide r Reason for Visit * Reason Onset Date Comments Med Refill 09/28/2024 Encounter Details Date Type Department Care Team ([facility] Contact Info) Description 09/28/2024 Telephone [facility] MEDICINE [address] [place] [address] Ernie Noriega MD [address] [place] [address] Med Refill Social History Tobacco Use Types [...] 300 MG capsule To be sent to: [facility]/pharmacy [address] [place] [address] documented in this encounter Plan of Treatment Upcoming Encounters Date Type Department Care Team (Late st Contact Info) Description 04/13/2025 2:15 PM EDT Office Visit [facility] MEDICINE [address] [place] [address] Ernie Noriega MD [address] [place], [place] [phone] documented as of this encounter Visit Diagnoses Not on filedocumented in this encounter Additional Health Concerns Assessment Noted Time PHQ-9 Depression Total Score: 2 01/21/20 24 1:25 PM EDT documented as of this encounter Care Teams Religious Education Director Relationship Specialty Start Date End Date Ernie Noriega MD [address] [place] [address] PCP - General Internal Medicine 08/25/19 documented as of this encounter
--- OUTSIDE RECORDS SUMMARY | 2025-02-10 09:45 | XMS_ITS | Encounter Summary ---
Author Organization [employer] Address [address] [place] [address] 7t [place] [address] Care Team Providers Care Pathology Laboratory Aide Name Role Phone Ernie Noriega MD Primary Care Provide r Reason for Visit * Reason Onset Date Comments Med Refill 08/17/2023 Encounter Details Date Type Department Care Team ([facility] st Contact Info) Description 08/17/2023 Telephone [facility] MEDICINE [address] [place], [place] [phone] Ernie Noriega MD [address] [place], [place] [phone] Med Refill Social History Tobacco Use Types [...] Please sent to [facility]/pharmacy #[id number] [place], [place] - [address] [place] [address] documented in this encounter Plan of Treatment Upcoming Encounters Date Type Department Care Team (Late st Contact Info) Description 04/13/2025 2:15 PM EDT Office Visit [facility] MEDICINE [address] [place] [address] Ernie Noriega MD [address] [place] [address] documented as of this encounter Visit Diagnoses Not on filedocumented in this encounter Additional Health Concerns Assessment Noted Time PHQ-9 Depression Total Score: 0 12/02/19 23 2:38 PM EST documented as of this encounter Care Teams Pathology Laboratory Aide Relationship Specialty Start Date End Date Ernie Noriega MD [address] [place] [address] PCP - General Internal Medicine 08/25/19 documented as of this encounter
--- OUTSIDE RECORDS SUMMARY | 2025-02-10 09:45 | XMS_ITS | Encounter Summary ---
Author Organization [employer] Address [address] [place] [address] [address] [place] [address] Care Team Providers Care Contact Center Analyst Name Role Phone Ernie Noriega MD Primary Care Provide r Reason for Visit * Reason Onset Date Comments Med Refill 09/18/2023 Encounter Details Date Type Department Care Team ([facility] st Contact Info) Description 09/18/2023 Telephone [facility] [address] [place] [address] Ernie Noriega MD [address] [place], [place] [phone] Med Refill Social History Tobacco Use Types [...] (Ultram) 50 MG tablet Please sent to [facility]/pharmacy #[id number] [place], [place] - [address] [place] [address] documented in this encounter Plan of Treatment Upcoming Encounters Date Type Department Care Team (Late st Contact Info) Description 04/13/2025 2:15 PM EDT Office Visit [facility] [address] [place], [place] [phone] Ernie Noriega MD [address] [place] [address] documented as of this encounter Visit Diagnoses Not on filedocumented in this encounter Additional Health Concerns Assessment Noted Time PHQ-9 Depression Total Score: 0 12/02/19 23 2:38 PM EST documented as of this encounter Care Teams Contact Center Analyst Relationship Specialty Start Date End Date Ernie Noriega MD [address] [place], [place] [phone] PCP - General Internal Medicine 08/25/19 documented as of this encounter
--- OUTSIDE RECORDS SUMMARY | 2025-02-10 09:45 | XMS_ITS | Encounter Summary ---
Author Organization [employer] Address [address] [place] [address] 7t [place] [address] Care Team Providers Care Rock Cutter Name Role Phone Ernie Noriega MD Primary Care Provide r Reason for Visit * Reason Onset Date Comments Med Refill 09/28/2024 Encounter Details Date Type Department Care Team ([facility] st Contact Info) Description 09/28/2024 Refill [facility] [address] [place] [address] Ernie Noriega MD [address] [place] [address] Primary osteoarthritis of knee, unspecified laterality Social [...] EDT Office Visit [facility] [address] [place] [address] Ernie Noriega MD [address] [place] [address] documented as of this encounter Visit Diagnoses Diagnosis Primary osteoarthritis of knee, unspecified laterality documented in this encounter Additional Health Concerns Assessment Noted Time PHQ-9 Depression Total Score: 2 01/21/20 24 1:25 PM EDT documented as of this encounter Care Teams Rock Cutter Relationship Specialty Start Date End Date Ernie Noriega MD [address] [place] [id number] PCP - General Internal Medicine 08/25/19 documented as of this encounter
--- OUTSIDE RECORDS SUMMARY | 2025-02-10 09:45 | XMS_ITS | Encounter Summary ---
Author Organization [employer] Address [address] [place] [address] [address] [place] [address] Care Team Providers Care Microscopist Name Role Phone Ernie Noriega MD Primary Care Provide r Reason for Visit * Reason Comments Med Refill Encounter Details Date Type Department Care Team ([facility] st Contact Info) Description 08/26/2023 Refill [facility] [address] [place] [address] Perlita Woody MD [address] [place] [address] Seasonal allergies Social History Tobacco Use Types [...] [facility] [address] [place] [address] Ernie Noriega MD [address] [place] [address] documented as of this encounter Visit Diagnoses Diagnosis Seasonal allergies Allergic rhinitis, cause unspecified documented in this encounter Additional Health Concerns Assessment Noted Time PHQ-9 Depression Total Score: 0 12/02/19 23 2:38 PM EST documented as of this encounter Care Teams Microscopist Relationship Specialty Start Date End Date Ernie Noriega MD [address] [place] [address] PCP - General Internal Medicine 08/25/19 documented as of this encounter
--- OUTSIDE RECORDS SUMMARY | 2025-02-10 09:45 | XMS_ITS | Encounter Summary ---
Author Organization [email or web address] Address [address] [place] [address] [address] [place] [address] Care Team Providers Care Tugboat Pilot Name Role Phone Ernie Noriega MD Primary Care Provide r Reason for Visit * Reason Onset Date Comments Med Refill 10/13/2024 Encounter Details Date Type Department Care Team ([facility] st Contact Info) Description 10/13/2024 Refill [facility] [address] [place] [address] Ernie Noriega MD [address] [place] [address] Chronic midline low back pain without sciatica [...] Description 04/13/2025 2:15 PM EDT Office Visit [facility] [address] [place] [address] Ernie Noriega MD [address] [place] [address] documented as of this encounter Visit Diagnoses Diagnosis Chronic midline low back pain without sciatica documented in this encounter Additional Health Concerns Assessment Noted Time PHQ-9 Depression Total Score: 2 01/21/20 24 1:25 PM EDT documented as of this encounter Care Teams Tugboat Pilot Relationship Specialty Start Date End Date Ernie Noriega MD [address] [place] [phone] PCP - General Internal Medicine 08/25/19 documented as of this encounter
--- OUTSIDE RECORDS SUMMARY | 2025-02-10 09:45 | XMS_ITS | Encounter Summary ---
Author Organization [employer] Address [address] [place] [address] [address] [place] [address] Care Team Providers Care Nurses Superintendent Name Role Phone Ernie Noriega MD Primary Care Provide r Reason for Visit * Reason Comments Med Refill Encounter Details Date Type Department Care Team ([facility] st Contact Info) Description 08/10/2023 Refill [facility] [address] [place] [address] Perlita Woody MD [address] [place] [address] Seasonal allergies; Primary hypertension Social History Tobacco [...] [facility] [address] [place] [address] Ernie Noriega MD [address] [place] [address] documented as of this encounter Visit Diagnoses Diagnosis Seasonal allergies Allergic rhinitis, cause unspecified Primary hypertension Unspecified essential hypertension documented in this encounter Additional Health Concerns Assessment Noted Time PHQ-9 Depression Total Score: 0 12/02/19 23 2:38 PM EST documented as of this encounter Care Teams Nurses Superintendent Relationship Specialty Start Date End Date Ernie Noriega MD [address] [place] [address] PCP - General Internal Medicine 08/25/19 documented as of this encounter
--- OUTSIDE RECORDS SUMMARY | 2025-02-10 09:45 | XMS_ITS | Clinical Summary ---
Author Organization [employer] Address [address] [place] [address] 7[address] [place] [address] Care Team Providers Care Engineer [employer] Name Role Phone Ernie Noriega MD Primary [...] DAY 90 tablet 2 06/07/20 24 Active fluticasone (Flonase) 50 MCG/ACT nasal [...] DAY 75 mL 1 01/12/20 25 Active Acetaminophen Extra Strength 500 MG tabletIndications :Pain TAKE 1 TABLET BY MOUTH EVERY 12 HOURS IF NEEDED FOR PAIN 60 tablet 3 02/03/20 25 Active Acetaminophen Extra Strength 500 MG tabletIndications :Pain TAKE 1 TABLET BY MOUTH EVERY 12 HOURS IF NEEDED FOR PAIN 60 tablet 3 10/11/20 24 025 Discontinued Active Problems Problem Noted [...] has chronic low back pain, treated at [facility] by Dr Clint Newberry. Hx of AP fusion from L4-sacrum in 2003. She has received epidural injections initially with good results but that is no longer the case. Pt developed lumbar spinal stenosis and on 01/14/2021 underwent Posterior neural foraminotomy L2-L3 by Dr. Bailey. She was admitted to [facility] from 11/13/2022 until 11/20/2022 due to worsening low back pain with radiation to her right thigh and right leg after an experimental thoracic spinal stimulation procedure at the surgery center [facility] (She was referred there by [facility]). Procedure was aborted after pt experienced [...] does not want to follow-up with [facility] [place] d/t the severe pain she experienced with [...] care of Orthopaedic specialist Dr Lees at [facility]. Pt would like to hold off on procedure until her back feels better. I contacted the office of Orthopaedic surgeon who stated this was an elective procedure and was ok with delaying until pt felt ready Assessment & Plan (12/04/2022 8:31 AM EST): Pt had initially come in for a Preoperative exam. Under the care of Orthopaedic specialist Dr Lees at [facility]. Pt would like to hold [...] has a Medical [employer] Card recommended by [facility] treating physician. pt utilizes the liquid form. She is no longer under the care of [facility] I had been prescribing tramadol to use [...] has a Medical [employer] Card recommended by [facility] treating physician. pt utilizes the liquid [...] has a Medical [employer] Card recommended by [facility] treating physician. pt utilizes the liquid form. She is no longer under the care of [facility] I had been prescribing tramadol to [...] Dr Soto who referred her back to [facility] for back pain History of total [...] Under the care of Dr Almeida at [facility]. see med list for current psychiatric meds, no changes. she has been stable they have requested me to continue his medications for insomnia, Ambien and Benadryl Chronic low back pain 05/12/2012 Assessment & Plan (01/12/2025 3:22 PM EDT): Pt here for a f/u Hx of chronic low back pain, treated in the past at [facility] by Dr Clint Newberry. Hx of AP fusion from L4-sacrum in 2003. She received epidural injections with good results in the past. but that was no longer the case. Pt developed lumbar spinal stenosis and on 01/14/2021 underwent Posterior neural foraminotomy L2-L3by Dr. Bailey. She was admitted to [facility] from 11/13/2022 until 11/20/2022 due to worsening low back pain with radiation to her right thigh and right leg after an experimental thoracic spinal stimulation procedure at the surgery center [facility] (She was referred there by [facility]). Procedure was aborted after pt experienced [...] the pain clinic. Pt was evaluated at [facility] Pain [facility]: 11/08/2024 they did an MRI [...] encroachment seen. Subsequently she was referred to [facility] Neurosurgery, seen Their assesment was:that [...] back pain, treated in the past at [facility] by Dr Clint Newberry. Hx of AP fusion from L4-sacrum in 2003. She received epidural injections with good results in the past. but that was no longer the case. Pt developed lumbar spinal stenosis and on 01/14/2021 underwent Posterior neural foraminotomy L2-L3by Dr. Bailey. She was admitted to [facility] from 11/13/2022 until 11/20/2022 due to worsening low back pain with radiation to her right thigh and right leg after an experimental thoracic spinal stimulation procedure at the surgery center of [place] (She was referred there by [facility]). Procedure was aborted after pt experienced [...] pain, she had been receiving treatment at [facility] by Dr Clint Newberry. Hx of AP fusion from L4-sacrum in 2003. She has received epidural injections with good results in the past. but that was no longer the case. Pt developed lumbar spinal stenosis and on 01/14/2021 underwent Posterior neural foraminotomy L2-L3by Dr. Bailey. Patient is here for a follow up. She was recently admitted to [facility] from 11/13/2022 until 11/20/2022 due to worsening low back pain with radiation to her right thigh and right leg after an experimental thoracic spinal stimulation procedure at the surgery [facility] (She was referred there by [facility]). Procedure was aborted after pt experienced [...] does not want to follow-up with Sp[facility] [place] d/t the severe pain she experienced with [...] pain, she had been receiving treatment at [facility] by Dr Clint Newberry. Hx of AP fusion from L4-sacrum in 2003. She has received epidural injections with good results in the past. but that was no longer the case. Pt developed lumbar spinal stenosis and on 01/14/2021 underwent Posterior neural foraminotomy L2-L3by Dr. Bailey. She was admitted to [facility] from 11/13/2022 until 11/20/2022 due to worsening low back pain with radiation to her right thigh and right leg after an experimental thoracic spinal stimulation procedure at the surgery [facility] (She was referred there by [facility]). Procedure was aborted after pt experienced [...] does not want to follow-up with Spinal [place] d/t the severe pain she experienced with [...] pain, she had been receiving treatment at [facility] by Dr Clint Newberry. Hx of AP fusion from L4-sacrum in 2003. She has received epidural injections with good results in the past. but that was no longer the case. Pt developed lumbar spinal stenosis and on 01/14/2021 underwent Posterior neural foraminotomy L2-L3by Dr. Bailey. Patient is here for a follow up. She was recently admitted to [facility] from 11/13/2022 until 11/20/2022 due to worsening low back pain with radiation to her right thigh and right leg after an experimental thoracic spinal stimulation procedure at the surgery center [facility] (She was referred there by [facility]). Procedure was aborted after pt experienced [...] does not want to follow-up with Spinal [place] d/t the severe pain she experienced with [...] Date Type Department Care Team Description 01/31/2025 Refill [facility] MEDICINE [address] [place] [address] Ernie Noriega MD Pain 01/31/2025 Refill [facility] MEDICINE [address] [address] Ernie Noriega MD Pain 01/19/2025 Telephone [facility] MEDICINE [address] [place] [address] Ernie Noriega MD ER Follow-up 01/12/2025 3:00 PM EDT Office Visit [facility] MEDICINE [address] [place] [address] Ernie Noriega MD Varicose veins of leg with pain, right (Primary Dx); Right foot pain; Chronic midline low back pain without sciatica; Essential hypertension 01/12/2025 Telephone [facility] MEDICINE [address] [place] [address] Ernie Noriega MD Appointment Request 01/12/2025 Travel 01/10/2025 Refill [facility] MEDICINE [address] [place] [address] Ernie Noriega MD Primary osteoarthritis of knee, unspecified laterality 01/10/2025 Refill [facility] MEDICINE [address] [place] [address] Ernie Noriega MD Chronic midline low back pain without sciatica 01/09/2025 Refill [facility] MEDICINE [address] [place] [address] Ofelia Melgar MD 01/09/2025 Refill [facility] MEDICINE [address] [place] [address] Ernie Noriega MD Ischial pain, right; Chronic midline low back pain without sciatica; Primary osteoarthritis of knee, unspecified laterality 01/05/2025 Orders Only [facility] MEDICINE [address] [place] [address] Ernie Noriega MD 01/05/2025 Travel 12/29/2024 Telephone [facility] MEDICINE [address] [place] [address] Ernie Noriega MD Chart Prep 12/23/2024 Population Health Risk Score [facility] () Department [address] [place] [phone] Provider, Population Health Generic 12/23/2024 Telephone [facility] MEDICINE [address] [place] [address] Ernie Noriega MD Referral 12/22/2024 Telephone [facility] WALK-IN CENTER [address] [place] [address] Marty Soto MD Results 12/22/2024 Orders Only [facility] [address] Marty Soto MD Right foot pain (Primary Dx) 12/22/2024 Telephone [facility] MEDICINE [address] [place] [address] Ernie Noriega MD Nurse Triage 12/21/2024 9:00 AM EDT Office Visit [facility] [address] [place] [address] Marty Soto MD Right foot pain (Primary Dx); Ecchymoses, spontaneous 12/15/2024 Refill [facility] MEDICINE [address] [place] [address] Ernie Noriega MD 12/09/2024 Orders Only [facility] External Provider, [facility] 11/28/2024 Refill [facility] MEDICINE [address] [place] [address] Ernie Noriega MD Gastritis without bleeding, unspecified chronicity, unspecified gastritis type 11/18/2024 Refill [facility]BILE VACCINE [facility] [address] [place] [address] Ernie Noriega MD Primary hypertension 11/17/2024 Refill [facility] MEDICINE [address] [place] [address] Ernie Noriega MD Seasonal allergies 11/14/2024 Refill [facility] MEDICINE [address] [place] [address] Ernie Noriega MD Primary osteoarthritis of knee, [...] 04/13/2025 2:15 PM EDT Office Visit [facility] MEDICINE [address] [place], [place] [phone] Ernie Noriega MD [address] [place] [address] Health Maintenance Due Date Last Done Comments [...] 12/10, 09/02/2019 Depression Screening 01/12/2026 01/12/2025, 01/13/20 SDOH Screening 01/12/2026 01/12/2025 Tobacco Screening 01/12/2026 01/12/2025 Mammogram 01/05/2027 01/05/2025, 12/11, 12/23/2022, Additional history exists Colonoscopy 03/18/2029 03/18/2024, 06/15/2013 Colorectal Cancer Screening 03/18/2029 Lipid Panel 01/25/2030 01/25/2025, 10/13, 03/27/2021 DTaP/Tdap/Td Vaccines (3 - Td or Tdap) [...] Procedure Name Priority Date/Time Associated Diagnosis Comments COMPREHENSIVE METABOLIC PANEL Routine 01/25/2025 8:37 AM EDT Essential hypertension LIPID PANEL, STANDARD Routine 01/25/2025 8:37 AM EDT Essential hypertension BI MAMMOGRAM SCREENING TOMOSYNTHESIS BILATERAL Routine 01/05/2025 [...] Recently Relevant to Health Maintenance Results * (ABNORMAL) Lipid Panel, Standard (01/25/2025 8:37 AM EDT) Triglycerides 165(H) <150 mg/dL [facility] Comment:Desirable Triglyceri de: less than 150 mg/dLBorderline High Triglyceride 150-199 mg/dLHigh Triglyceride: 200-499 mg/dLVery High Triglyceride: greater than or equal to 5OO mg/dL Cholesterol 232(H) <200 mg/dL [facility] Comment:Desirable Cholestero l: less than 200 mg/dLBorderline High Cholesterol: 200-239 mg/dLHigh Cholesterol: greater than 239 mg/dL LDL Cholesterol Calculated 133(H) <100 mg/dL [facility] Comment:Desirable LDL: less than 100 mg/dLNear Optimal/Above Optimal LDL: 110- 129 mg/dLBorderline High LDL: 130-159 mg/dLHigh LDL: 160-189 mg/dLVery High LDL: greater than or equal to 190 mg/dL HDL Cholesterol 66 >40 mg/dL [facility] Comment:Desirable HDL: great er than 40 mg/dL Note: This HDL assay may give artificially low results in patients with liver disease. Blood Venous blood specimen / Unknown 01/25/2025 8:37 AM EDT 01/25/2025 11:14 AM EDT us Ernie Ro MD LAB BLOOD ORDERABLES Final Result [facility] [address] [place] [address] [phone] * (ABNORMAL) Comprehensive Metabolic Panel (01/25/2025 8:37 AM EDT) Sodium 142 135 - 145 mmol/L [facility] Potassium 4.0 3.3 - 5.1 mmol/L [facility] Chloride 105 96 - 108 mmol/L [facility] Carbon Dioxide 28 22 - 29 mmol/L [facility] Anion Gap 13 12 - 20 [facility] Urea Nitrogen (BUN) 17(H) 9 - 16 mg/dL [facility] Creatinine, Serum 0.80 0.5 - 1.4 mg/dL [facility] Estimated Glomerular Filt Rate >60 [facility] Comment:Chronic Kidney Disea se: Estimated GFR < 60 mL/min/1.10z0Wknify Kidney Disease: Estimated GFR < 15 mL/min/1.73m2 Glucose 101 60 - 115 mg/dL [facility] Calcium 9.1 8.4 - 10.2 mg/dL [facility] Bilirubin, Total 0.7 0.0 - 1.0 mg/dL [facility] Aspartate Amino Transferase 36(H) 5 - 31 U/L [facility] Alanine Aminotransferase 36(H) 0 - 31 U/L [facility] Total Protein 7.1 6.5 - 8.0 g/dL [facility] Albumin Level 4.3 3.5 - 5.0 g/dL [facility] Alkaline Phosphatase 95 39 - 117 U/L [facility] Blood Venous blood specimen / Unknown 01/25/2025 8:37 AM EDT 01/25/2025 11:14 AM EDT Ernie Ro MD LAB BLOOD ORDERABLES Final Result [facility] [address] [facility] [place] [address] [phone] * BI Mammogram Screening Tomosynthesis Bilateral (01/05/2025 10:00 AM EDT) Anatomical Region Laterality Modality Breast Bilateral Mammography 01/05/2025 10:0 0 AM EDT Narrative 01/13/2025 2:49 PM EDT ? [facility] [place] ? [address] ?[place] [address] ?[phone] ? Mammography Report ? Signed ? Patient: Julien,Miguelina ?MR#: [id number] ?? 12 ? : 1965 ?Acct:[id number] ? Age/Sex: 59 / F ?ADM Date: 01/05/25 ? Loc: HO.MAMMO ? Attending Dr: Ernie Merritt MD ? Ordering Physician: Ernie Merritt MD ?Resu ?? lts: 1Negative ? Date of Service: 01/05/25 ?Follow Up: 1 Year From Orig ?? inal Mammogram ? Procedure(s): MM tomosynthesis screening BI ?? Accession Number(s): [id number] ? cc: Ernie Merritt MD ? EXAMINATION: [...] ??Yari Valencia DO ??01/13/2025 02:47 PM EDT ? Dictated By: ?Erik,Yari DO ? Signed By: ?<Electronically signed by Yari Valencia, DO in OV> ? 01/13/25 1447 ? DD/ 1000 ? TD/TT: 01/05/25 1015 ? Telecom Network Manager: ? Procedure Note Rene Motley - 01/13/2025 [facility] [address] [place], [place] [address] Mammography Report Signed Patient: Miguelina Julien#: [id number] 12 : 1965Acct:[id number] Age/Sex: 59 / FADM Date: 01/05/25 Loc: HO.MAMMO Attending Dr: Ernie Merritt MD Ordering Physician: Ernie Merritt MDResu lts: 1Negative Date of Service: 01/05/25Follow Up: 1 Year From Orig inal Mammogram Procedure(s): MM tomosynthesis screening BI Accession Number(s): [id number] cc: Ernie Merritt MD EXAMINATION: MM SCREENING [...] Yari Valencia DO 01/13/2025 02:47 PM EDT Dictated By: Yari Valencia DO Signed By: <Electronically signed by Yari Valencia DO in OV> 01/13/25 1447 DD/ 1000 TD/TT: 01/05/25 1015 Telecom Network Manager: us Ernie Ro MD IMG BI PROCEDURES Fin al Result * Lyme Disease Ab with Reflex to Blot (IgG, IgM) (12/21/2024 10:13 AM EDT) Lyme Antibody Screen <0.90 index [facility] Comment:Index Interpretation ----- < 0.90 [...] when erythemamigrans is apparent.THIS TEST WAS PERFORMED AT:[facility] [employer] [place] [phone] ANTONY MD Lyme Blot TNP [facility] 12/21/2024 10:1 3 AM EDT 12/21/2024 11:45 AM EDT Marty Soto MD LAB BLOOD ORDERABLES Final Resul t [facility] [address] [place] [phone] * (ABNORMAL) CBC auto differential (12/21/2024 10:13 AM EDT) White Blood Count 8.1 4.8 - 10.8 X10*3/uL [facility] Red Blood Count 4.14(L) 4.20 - 5.50 X10*6/uL [facility] Hemoglobin 11.6(L) 12.0 - 16.0 g/dl [facility] Hematocrit 37.3 37.0 - 47.0 % [facility] Mean Corpuscular Volume 90.1 80.0 - 98.0 fL [facility] Mean Corpuscular Hemoglobin 28.0 27.0 - 33.0 pg [facility] Mean Corpuscular HGB Conc 31.1 31.0 - 35.0 g/dl [facility] Red Cell Distribution Width 13.6 11.0 - 16.0 % [facility] Platelet Count 312 160 - 400 X10*3/uL [facility] Mean Platelet Volume 10.2 9.4 - 12.3 fL [facility] Neutrophils Percent Auto 55.2 45 - 73 % [facility] Imm Gran Pct Auto 0.4 0.0 - 0.4 % [facility] Lymphocytes Percent Auto 35.1 20 - 40 % [facility] Monocytes Percent Auto 7.3 2 - 11 % [facility] Eosinophils Percent Auto 1.4 0 - 4 % [facility] Basophils Percent Auto 0.6 0 - 2 % [facility] NRBC Pct Auto 0.0 0.0 - 0.2 /100WBC [facility] Neutrophils Absolute Auto 4.5 2.0 - 8.3 x10*3/uL [facility] Imm Gran Abs Auto 0.03 0.00 - 0.03 X10*3/uL [facility] Lymphocytes Absolute Auto 2.9 1.2 - 4.9 X10*3/uL [facility] Monocytes Absolute Auto 0.6 0.1 - 1.2 X10*3/uL [facility] Eosinophils Absolute Auto 0.1 0.0 - 0.4 X10*3/uL [facility] Basophils Absolute Auto 0.1 0.0 - 0.2 X10*3/uL [facility] NRBC Abs Auto 0.000 0.0 - 0.012 X10*3/uL [facility] Blood Venous blood specimen / Unknown 12/21/2024 10:13 AM EDT 12/21/2024 11:45 AM EDT us Marty Soto MD LAB BLOOD ORDERABLES Final Resul t [facility] [address] [place] [phone] [phone] * Partial Thromboplastin Time, Activated (APTT) (12/21/2024 10:13 AM EDT) Partial Thromboplastin Time 33.7 26.0 - 36.8 SEC [facility] Comment:For information rega rding the monitoring of direct thrombininhibitors, please refer to Pharmacy. Blood Venous blood specimen / Unknown 12/21/2024 10:13 AM EDT 12/21/2024 11:45 AM EDT Result Ian Soto MD LAB BLOOD ORDERABLES Final Resul t Performing Organization Address [facility] de Phone Number [facility] [address] [place] [phone] * Prothrombin Time-INR (12/21/2024 10:13 AM EDT) Prothrombin Time 11.4 10.9 - 12.4 SEC [facility] INTERNATIONAL NORM RATIO 1.0 0.9 - 1.1 [facility] Comment:INTERNATIONAL NORMAL IZED RATIO (INR) [...] ORDERABLES Final Resul t Performing Organization Address City/[facility] Co de Phone Number [facility] [address] [place] [phone] * Uric acid (12/21/2024 10:13 AM EDT) Uric Acid 4.6 2.4 - 5.7 mg/dL [facility] Blood Venous blood specimen / Unknown 12/21/2024 10:13 AM EDT 12/21/2024 11:45 AM EDT us Marty Soto MD LAB BLOOD ORDERABLES Final Resul t [facility] [address] [place] [address] [phone] * XR Foot 3+ Views Right (12/21/2024 9:42 AM EDT) Anatomical Region Laterality Modality Lower Extremities, Foot Right Radiogra phic Imaging 12/21/2024 9:42 AM EDT Narrative 12/21/2024 10:03 AM EDT ?[facility] ?[address] ?[place] [address] ?XRay Report ? Signed ? Patient: Julien,[place] ?MR#: [id number] ?? 12 ? : 1965 ?Acct:[id number] ? Age/Sex: 59 / F ?ADM Date: 12/21/24 ? Loc: HO.HHCX ? Attending Dr: Marty Soto MD ? Ordering Physician: MARTY SOTO MD ?? Date of Service: 12/21/24 ?? Procedure(s): XR foot RT min 3V ?? Accession Number(s): [id number] ? cc: MARTY SOTO MD ? EXAMINATION: [...] DD/ 0942 ? TD/TT: 12/21/24 0956 ? Telecom Network Manager: ? Procedure Note Tiesha, Image - 03/12/2025 [facility] [address] [place] [address] XRay Report Signed Patient: Columba Julien#: [id number] 12 : 1965Acct:[id number] Age/Sex: 59 / FADM Date: 12/21/24 Loc: HO.HHCX Attending Dr: Marty Soto MD Ordering Physician: MARTY SOTO MD Date of Service: 12/21/24 Procedure(s): XR foot RT min 3V Accession Number(s): [id number] cc: MARTY SOTO MD EXAMINATION: XR FOOT [...] 12/21/24 1000 DD/ 0942 TD/TT: 12/21/24 0956 Telecom Network Manager: Marty Soto MD IMG XR PROCEDURES Final Result * FL Guidance in OR (12/09/2024 9:08 AM EST) Anatomical Region Laterality Modality X-Ray Angiograph y 12/09/2024 9:08 AM EST Narrative 12/09/2024 9:48 AM EST ? [facility] ?[address] ?[place] [address] ? Fluoroscopy Report ? Signed ? Patient: Julien,[place] ?MR#: [id number] ?? 12 ? : 1965 ?Acct:[id number] ? Age/Sex: 59 / F ?ADM Date: 02/28/25 ? Loc: HO.SSS ? Attending Dr: Aldo Casas MD ? Ordering Physician: Aldo Casas MD ?? Date of Service: 12/09/24 ?? Procedure(s): FL guidance in OR ?? Accession Number(s): [id number] ? cc: Ofelia Melgar MD; Aldo Casas [...] DD/ 0908 ? TD/TT: 12/09/24 0930 ? Telecom Network Manager: ? Procedure Note Tiesha, Image - 12/09/2024 [place] [address] Fluoroscopy Report Signed Patient: Columba Julien#: [id number] 12 : 1965Acct:[id number] Age/Sex: 59 / FADM Date: 12/09/24 Loc: HO.[facility] Attending Dr: Aldo Casas MD Ordering Physician: Aldo Casas MD Date of Service: 12/09/24 Procedure(s): FL guidance in OR Accession Number(s): [id number] cc: Ofelia Melgar MD; Aldo Casas MD [...] Rodrick Williamson MD in OV> 12/09/2445 DD/ TD/TT: 12/09/24929 Telecom Network Manager: [facility] External Provider IMG IR PROCEDURES Final Result * (ABNORMAL) Hm Colonoscopy (03/18/2024) Colonoscopy Abnormal( A) Normal Comment:Tubular Adenoma 03/18/2024 Historical Provider HEALTH MAINTENANCE Final Result * Hepatitis C Antibody with Reflex to HCV, RNA, Quantitative, Real-Time PCR (11/07/2022 8:24 AM EST) Hepatitis C Antibody NON-REACT TAMARA NON-REACT TAMARA [facility] Index 0.12 <1.00 [facility] Comment: HCV antibody was non-reactive. There is no laboratory evidence of HCV infection. In most cases, no further action is required. However, if recent HCV exposure is suspected, a test for HCV RNA (test code 40661) is suggested. For additional information please refer to http://education.[employer].com/faq/YMM20j8 (This link is being provided for informational/ educational purposes only.) Blood Venous blood specimen / Unknown 11/07/2022 8:24 AM EST 11/07/2022 8:25 AM EST Narrative [facility] - 11/08/2022 12:51 AM EST FASTING:YES FASTING: YES Ernie Ro MD LAB BLOOD ORDERABLES Final Result [facility] [address] [facility], [place] [phone] [facility] [address] [facility], ([address]) [place] [phone] * HPV E6/E7 RFLX SERGIO 16 18/45 (12/19/2020 3:40 PM EST) HPV 16 RNA [facility] HPV 18/45 RNA [facility] HPV E6 E7 ADD [facility] HPV mRNA E6/E7 rflx Not Detected Not Detected [facility] Comment: Methodology: Machine Edge Bander-Mediated Amplification This assay detects E6/E7 viral messenger RNA (mRNA) from 14 high-risk HPV types (16,18,31,33,35,39,45,51,52,56,58,59,66,68). The analytical performance characteristics of this assay have been determined by [employer]. The modifications have not been cleared or approved by the FDA. This assay has been validated pursuant to the CLIA regulations and is used for clinical purposes. For additional information, please refer to http://education.[employer].com/faq/BUE426x4 (This link if provided for information/ educational purposes only.) THIS TEST WAS PERFORMED AT: [facility] [address] [facility] [address] [place], [place] ??[phone] FLACA ANTONY MD 12/19/2020 3:40 PM EST us Historical Provider HISTORICAL/NON ORDERABLE LABS Final Result [facility] [address] from Last 3 Months or Most Recently Relevant to Health Maintenance Insurance [employer] C3 Care Teams Engineer Design And Construction Relationship Specialty Start Date End Date Ernie Noriega MD [address] [place] [id number] PCP - General Internal Medicine 08/25/19
--- OUTSIDE RECORDS SUMMARY | 2025-02-10 09:45 | XMS_ITS | Encounter Summary ---
Author Organization [employer] Address [address] [place] [address] 7t [place] [address] Care Team Providers Care Wood Gluer Name Role Phone Ernie Noriega MD Primary Care Provide r Reason for Visit * Reason Onset Date Comments Med Refill 10/12/2024 Encounter Details Date Type Department Care Team ([facility] st Contact Info) Description 10/12/2024 Refill [facility] [address] [place] [address] Ernie Noriega MD [address] [place] [address] Primary osteoarthritis of knee, unspecified laterality Social [...] Description 04/13/2025 2:15 PM EDT Office Visit [facility] [address] [place] [address] Ernie Noriega MD [address] [place] [address] documented as of this encounter Visit Diagnoses Diagnosis Primary osteoarthritis of knee, unspecified laterality documented in this encounter Additional Health Concerns Assessment Noted Time PHQ-9 Depression Total Score: 2 01/21/20 24 1:25 PM EDT documented as of this encounter Care Teams Wood Gluer Relationship Specialty Start Date End Date Ernie Noriega MD [address] [place] [address] PCP - General Internal Medicine 08/25/19 documented as of this encounter
--- OUTSIDE RECORDS SUMMARY | 2025-02-10 09:45 | XMS_ITS | Encounter Summary ---
Author Organization [employer] [facility] Address [address] [place] [address] 7t [place] [address] Care Team Providers Care Community Worker Name Role Phone Ernie Noriega MD Primary Care Provide r Encounter Details Date Type Department Care Team (Late st Contact Info) Description 10/03/2022 Orders Only [facility] [address] [place] [address] [phone] Suha Alexander, RN Social History Tobacco Use [...] EDT Office Visit [facility] [address] [place] [address] [phone] Ernie Noriega MD [address] [place] [phone] documented as of this encounter Visit Diagnoses Not on filedocumented in this encounter Care Teams Community Worker Relationship Specialty Start Date End Date Ernie Noriega MD [address] [place] [phone] PCP - General Internal Medicine 08/25/19 documented as of this encounter
== END 2025-02-10 10:30 | disposition home or self-care (01) ==
LOC: HO.HVS 09:10
PROVIDERS: PCP Internal Medicine; Visit Provider Surgery Vascular Surgery
DX: I83.11 Varicose veins of right lower extremity with inflammation (principal)
CPT/HCPCS: 37765

== ENCOUNTER → 2025-02-10 09:09 | Outpatient (BNVA) | payer MEDICAID, SELFPAY | PROVIDERS: PCP Internal Medicine; Visit Provider Surgery Vascular Surgery | DX: I83.11 Varicose veins of right lower extremity with inflammation (principal) | CPT/HCPCS: 37765 ==

== ENCOUNTER 2025-02-23 09:01 | Outpatient (AMB) | payer MEDICAID, SELFPAY ==
--- NOTE | 2025-02-23 09:05 | A.OFFVIS_ITS ---
Intake Visit Reasons: 2w follow up s/p R leg micro 02/10/25 Intake Note: Patient presents for follow up right leg micro. She has no complaints. Would like to discuss another micro as she has more veins she would like removed. Accompanied by: Unknown Allergies No Known Allergies Allergy (Verified 02/23/25 09:07) HPI HPI 2w follow up s/p R leg micro 02/10/25: Details: The patient is a 59-year-old female presenting with follow-up for right leg microphlebectomy. Two weeks ago, she underwent this procedure, and overall improvement has been reported concerning her right leg. However, residual spider veins are present, which were challenging to address during the surgery. She now is concerned about her left lower extremity. It continues to be a source of pain and discomfort for her. [facility] Medical History Right-sided ischial pain Tubular adenoma of colon Hematuria Dysuria Overweight Varicose vein of leg Chronic tension-type headache, not intractable Neuropathic pain Hyperlipidemia Carpal tunnel syndrome Cervical radiculopathy Depressive disorder Diverticulosis HTN (hypertension) Osteoarthritis Asthma Essential hypertension Low back pain Pre-diabetes Seasonal allergies GERD (gastroesophageal reflux disease) Post-COVID syndrome COPD (chronic obstructive pulmonary disease) Arthritis Anxiety Depression Hesitancy of micturition Moderate persistent asthma Surgical History History of carpal tunnel release Hx of eye surgery Hx of cataract extraction Hx of shoulder surgery History of carpal tunnel surgery of right wrist H/O colonoscopy History of total right knee replacement History of back surgery History of total left knee replacement (~06/2020) Family History Mother Heart disease Sister HTN (hypertension) Sister HTN (hypertension) Diabetes Maternal Grandmother Cervical cancer Social History Household Members: Spouse Housing: House Are you a primary anesthesiologist and critical care to a significant other at home: No Do you presently have visiting nurse or other home services: No Alcohol intake: never Comment: in bathroom, aware of trip hazard Patient Tobacco Use Status: Former Tobacco user Tobacco use type: Cigarette Second Hand Smoke Exposure: No Substance Use Type: Marijuana Advance Directives Date on File: 12/17/21 service: No Current occupational status: unemployed Current occupation: Right Handed Gender identity: Female Review of Systems Const Reports as per HPI ENT Reports no additional complaints Card Denies chest pain, Denies chest pain at rest and Denies chest pain with activity Resp Denies chest congestion and Denies cough GI Reports no additional complaints Musc Details: pain over varicosities, aching of lower extremities, swelling, cramping, heaviness and tiredness, itching Denies abnormal gait Skin/Breast Reports pruritus and Denies wounds Neuro Reports no additional complaints and Denies abnormal gait Psych Denies no additional complaints Physical Exam Const General: cooperative, healthy appearing and comfortable Orientation/consciousness: oriented to person, oriented to place and oriented to time Neck Carotids: no bruits Chest Chest palpation & inspection: normal inspection of the chest and normal palpation of entire chest wall Resp Effort & Inspection: normal respiratory effort and able to speak in complete sentences Cardio Rate: regular rate Heart sounds: S1 normal heart sound present and S2 normal heart sound present Peripheral pulses: Peripheral pulses 2+ throughout GI Inspection: Yes normal to inspection Skin Other: +2 edema, large rope-like varicosities greater than 4 mm left leg CEAP Classification C4 - skin color changes Ep - Etiology Primary As - superficial veins P - reflux General skin exam: dry skin Neuro General: oriented to person, oriented to place and oriented to time Extrem Right lower extremity: full ROM, normal capillary refill and edema Left lower extremity: full ROM, normal capillary refill and edema Psych Mental Status: mental status grossly normal Assessment & Plan Assessment & Plan (1) Varicose veins of left lower extremity with inflammation: Code(s): I83.12 - Varicose veins of left lower extremity with inflammation Category: Medical Plan: This patient has varicose veins with inflammation. They continue to be a source of discomfort for the patient. The patient has tried conservative treatment with compression, leg elevation and exercise program for over 3 months time. They have been compliant with all treatment. This has provided minimal relief for the patient. I do not anticipate this course of treatment will alter the underlying etiology. The patient has been scheduled for lower extremity venous treatment inclusive of --- left leg microphlebectomy. Risks, benefits, and complications of this procedure has been discussed in detail with the patient including but not limited to bleeding, infection, and the development of a DVT. The patient has demonstrated a clear understanding and has consented. We will schedule the patient as soon as possible. Thank you for allowing us to participate in this patient's care. If there are any questions or concerns please do not hesitate to contact us. Coding Level of Care Code Est Pt Level 4 (93787) Diagnoses Varicose veins of left lower extremity with inflammation I83.12
--- OUTSIDE RECORDS SUMMARY | 2025-02-23 09:31 | XMS_ITS | Encounter Summary ---
Author Organization [employer] Address [address] [facility] 7t [place] [address] Care Team Providers Care Barn Boss Name Role Phone Ernie Noriega MD Primary Care Provide r Reason for Visit * Reason Onset Date Comments Med Refill 03/15/2024 Encounter Details Date Type Department Care Team ([facility] st Contact Info) Description 03/15/2024 Refill [facility] [address] [place], [place] [phone] Ofelia Melgar MD 230 [place] [address] Chronic midline low back pain without sciatica; [...] Description 04/13/2025 2:15 PM EDT Office Visit [facility] [address] [place] [address] Ernie Noriega MD [address] [place] [address] documented as of this encounter Visit Diagnoses Diagnosis Chronic midline low back pain without sciatica Cervical radiculopathy Brachial neuritis or radiculitis nos documented in this encounter Additional Health Concerns Assessment Noted Time PHQ-9 Depression Total Score: 2 01/21/20 24 1:25 PM EDT documented as of this encounter Care Teams Barn Boss Relationship Specialty Start Date End Date Ernie Noriega MD [address] [place] [address] PCP - General Internal Medicine 08/25/19 documented as of this encounter
--- OUTSIDE RECORDS SUMMARY | 2025-02-23 09:32 | XMS_ITS | Encounter Summary ---
Author Organization [employer] Address [address] [place] [address] 7 [place] [address] Care Team Providers Care Stationary Engineer Name Role Phone Ernie Noriega MD Primary Care Provide r Encounter Details Date Type Department Care Team (Late st Contact Info) Description 02/18/2023 Abstract [facility] [address] [place] [address] [phone] Ernie Noriega MD [address] [place] [address] [phone] Social History Tobacco Use Types Packs/Day Years [...] Office Visit [facility] [address] [place] [address] [phone] Ernie Noriega MD [address] [place] [address] [phone] documented as of this encounter Procedures Procedure Name Priority Date/Time Associated Diagnosis Comments COLONOSCOPY Routine 06/15/2013 documented in this encounter Results * Colonoscopy (06/15/2013) Colonoscopy Normal Normal 06/15/2013 Narrative Chery [place] - 06/15/2013 12:03 PM EDT Recommended 10 years follow up Historical Provider HEALTH MAINTENANCE Edited Result - Final documented in this encounter Visit Diagnoses Not on filedocumented in this encounter Additional Health Concerns Assessment Noted Time PHQ-9 Depression Total Score: 0 12/02/19 23 2:38 PM EST documented as of this encounter Care Teams Stationary Engineer Relationship Specialty Start Date End Date Ernie Noriega MD [address] [place] [phone] PCP - General Internal Medicine 08/25/19 documented as of this encounter
--- OUTSIDE RECORDS SUMMARY | 2025-02-23 09:32 | XMS_ITS | Encounter Summary ---
Author Organization [employer] Address [address] [facility] 7t [place] [address] Care Team Providers Care Internet Technology Manager Name Role Phone Ernie Noriega MD Primary Care Provide r Reason for Visit * Reason Onset Date Comments Med Refill 04/24/2024 Encounter Details Date Type Department Care Team ([facility] st Contact Info) Description 04/24/[address] [facility] [address] [place] [address] Ernie Noriega MD [address] [place] [address] Essential hypertension Social History Tobacco Use Types [...] [facility] [address] [place] [address] Ernie Noriega MD [address] [place] [address] documented as of this encounter Visit Diagnoses Diagnosis Essential hypertension Unspecified essential hypertension documented in this encounter Additional Health Concerns Assessment Noted Time PHQ-9 Depression Total Score: 2 01/21/20 24 1:25 PM EDT documented as of this encounter Care Teams Internet Technology Manager Relationship Specialty Start Date End Date Ernie Noriega MD [address] [place] [address] PCP - General Internal Medicine 08/25/19 documented as of this encounter
--- OUTSIDE RECORDS SUMMARY | 2025-02-23 09:32 | XMS_ITS | Encounter Summary ---
Author Organization [employer] Address [address] [place] [address] 7t [place] [address] Care Team Providers Care Cement Mixer Driver Name Role Phone Ernie Noriega MD Primary Care Provide r Reason for Visit * Reason Onset Date Comments Med Refill 11/07/2024 Encounter Details Date Type Department Care Team ([facility] st Contact Info) Description 11/07/2024 Refill [facility] [address] [place] [address] Ernie Noriega MD [address] [place] [address] Chronic midline low back pain without sciatica [...] Visit [facility] [address] [place] [address] Ernie Noriega MD [address] [place] [address] documented as of this encounter Visit Diagnoses Diagnosis Chronic midline low back pain without sciatica documented in this encounter Additional Health Concerns Assessment Noted Time PHQ-9 Depression Total Score: 2 01/21/20 24 1:25 PM EDT documented as of this encounter Care Teams Cement Mixer Driver Relationship Specialty Start Date End Date Ernie Noriega MD [address] [place] [phone] PCP - General Internal Medicine 08/25/19 documented as of this encounter
--- OUTSIDE RECORDS SUMMARY | 2025-02-23 09:32 | XMS_ITS | Encounter Summary ---
Author Organization [employer] Address [address] [place] [address] 7t [place] [address] Care Team Providers Care Fine Arts Packer Name Role Phone Ernie Noriega MD Primary Care Provide r Encounter Details Date Type Department Care Team (Late st Contact Info) Description 04/13/2023 Orders Only [facility] [address] [place] [address] [phone] Sugar Mitchell MD [address] [place], [place] [phone] Neuropathic pain of right lower extremity (Primary [...] Description 04/13/2025 2:15 PM EDT Office Visit [facility] [address] [place] [address] [phone] Ernie Noriega MD [address] [place], [place] [phone] documented as of this encounter Procedures Procedure Name Priority Date/Time Associated Diagnosis Comments BASIC METABOLIC PANEL Routine 05/13/2023 8:40 AM EDT Neuropathic pain of right lower extremity documented in this encounter Results * (ABNORMAL) Basic Metabolic Panel (05/13/2023 8:40 AM EDT) Sodium 141 135 - 145 mmol/L [facility] Potassium 3.5 3.3 - 5.1 mmol/L [facility] Chloride 103 96 - 108 mmol/L [facility] Carbon Dioxide 23 22 - 29 mmol/L [facility] Anion Gap 19 12 - 20 [facility] Urea Nitrogen (BUN) 15 9 - 16 mg/dL [facility] Creatinine, Serum 0.78 0.5 - 1.4 mg/dL [facility] Estimated Glomerular Filt Rate >60 [facility] Comment:NOTE: For -Am erican individuals, multiply the result by 1.210.Chronic Kidney Disease: Estimated GFR < 60 mL/min/[id number] Kidney Disease: Estimated GFR < 15 mL/min/1.73m2 Glucose 151(H) 60 - 115 mg/dL [facility] Calcium 9.3 8.4 - 10.2 mg/dL [facility] Blood Venous blood specimen / Unknown 05/13/2023 8:40 AM EDT 05/13/2023 11:14 AM EDT us Sugar Mitchell MD LAB BLOOD ORDERABLES Final Resul t [facility] [address] [place] [address] [phone] documented in this encounter Visit Diagnoses Diagnosis Neuropathic pain of right lower extremity- Primary documented in this encounter Additional Health Concerns Assessment Noted Time PHQ-9 Depression Total Score: 0 12/02/19 23 2:38 PM EST documented as of this encounter Care Teams Fine Arts Packer Relationship Specialty Start Date End Date Ernie Noriega MD [address] [place] [address] PCP - General Internal Medicine 08/25/19 documented as of this encounter
--- OUTSIDE RECORDS SUMMARY | 2025-02-23 09:32 | XMS_ITS | Encounter Summary ---
Author Organization [employer] Address [address] [facility] 7t [place] [address] Care Team Providers Care Teacher Asst Name Role Phone Ernie Noriega MD Primary Care Provide r Reason for Visit * Reason Onset Date Comments Med Refill 10/27/2023 Encounter Details Date Type Department Care Team ([facility] st Contact Info) Description 10/27/2023 Refill [facility] [address] [place] [address] Perlita Woody MD [address] [place] [address] Primary hypertension Social History Tobacco Use Types [...] EDT Office Visit [facility] [address] [place] [phone] Ernie Noriega MD [address] [place] [phone] documented as of this encounter Visit Diagnoses Diagnosis Primary hypertension Unspecified essential hypertension documented in this encounter Additional Health Concerns Assessment Noted Time PHQ-9 Depression Total Score: 0 12/02/19 23 2:38 PM EST documented as of this encounter Care Teams Teacher Asst Relationship Specialty Start Date End Date Ernie Noriega MD [address] [place] [phone] PCP - General Internal Medicine 08/25/19 documented as of this encounter
--- OUTSIDE RECORDS SUMMARY | 2025-02-23 09:32 | XMS_ITS | Encounter Summary ---
Author Organization [employer] Address [address] [facility] 7t [place] [address] Care Team Providers Care Drafter Automotive Design Name Role Phone Ernie Noriega MD Primary Care Provide r Reason for Visit * Reason Onset Date Comments Med Refill 04/16/2024 Encounter Details Date Type Department Care Team ([facility] st Contact Info) Description 04/16/2024 Refill [facility] [address] [place] [address] Ernie Noriega MD [address] [place] [address] Essential hypertension Social History Tobacco Use Types [...] Visit [facility] [address] [place] [address] Ernie Noriega MD [address] [place] [address] documented as of this encounter Visit Diagnoses Diagnosis Essential hypertension Unspecified essential hypertension documented in this encounter Additional Health Concerns Assessment Noted Time PHQ-9 Depression Total Score: 2 01/21/20 24 1:25 PM EDT documented as of this encounter Care Teams Drafter Automotive Design Relationship Specialty Start Date End Date Ernie Noriega MD [address] [place] [address] PCP - General Internal Medicine 08/25/19 documented as of this encounter
--- OUTSIDE RECORDS SUMMARY | 2025-02-23 09:32 | XMS_ITS | Encounter Summary ---
Author Organization [employer] Address [address] [facility] 7t [place] [address] Care Team Providers Care [employer] Sales [employer] Lending Team Member Name Role Phone Ernie Noriega MD Primary Care Provide r Reason for Visit * Reason Onset Date Comments Nurse Triage 12/22/2024 Encounter Details Date Type Department Care Team ([facility] st Contact Info) Description 12/22/2024 Telephone [facility] [address] [place] [address] Ernie Noriega MD [address] [place] [address] Nurse Triage Social History Tobacco Use Types [...] 12/22/2024 10:03 AM EDT Called pt. Via [employer] erecting engineer [phone] [place]. Pt. States that she went to [...] leg pain now Please contact pt at [phone]. (Saudi Arabian Speaker) documented in this encounter Plan of Treatment Upcoming Encounters Date Type Department Care Team (Late st Contact Info) Description 04/13/2025 2:15 PM EDT Office Visit [facility] [address] [place] [address] Ernie Noriega MD [address] [place] [address] documented as of this encounter Visit Diagnoses Not on filedocumented in this encounter Additional Health Concerns Assessment Noted Time PHQ-9 Depression Total Score: 2 01/21/20 24 1:25 PM EDT documented as of this encounter Care Teams [employer] Team Member Relationship Specialty Start Date End Date Ernie Noriega MD [address] [place] [phone] PCP - General Internal Medicine 08/25/19 documented as of this encounter
--- OUTSIDE RECORDS SUMMARY | 2025-02-23 09:32 | XMS_ITS | Encounter Summary ---
Author Organization [employer] Address [address] [facility] 7t [place] [address] Care Team Providers Care Derrick Boat Lever Operator Name Role Phone Ernie Noriega MD Primary Care Provide r Reason for Visit * Reason Onset Date Comments Med Refill 10/25/2024 Encounter Details Date Type Department Care Team ([facility] st Contact Info) Description 10/25/2024 Refill [facility] [address] [place] [address] Ernie Noriega MD [address] [place] [address] Chronic midline low back pain without sciatica [...] Office Visit [facility] [address] [place] [address] Ernie Noriega MD [address] [place] [address] documented as of this encounter Visit Diagnoses Diagnosis Chronic midline low back pain without sciatica documented in this encounter Additional Health Concerns Assessment Noted Time PHQ-9 Depression Total Score: 2 01/21/20 24 1:25 PM EDT documented as of this encounter Care Teams Derrick Boat Lever Operator Relationship Specialty Start Date End Date Ernie Noriega MD [address] [place] [phone] PCP - General Internal Medicine 08/25/19 documented as of this encounter
--- OUTSIDE RECORDS SUMMARY | 2025-02-23 09:32 | XMS_ITS | Encounter Summary ---
Author Organization [employer] Address [address] [facility] 7t [place] [address] Care Team Providers Care Inspector Tubes Name Role Phone Ernie Noriega MD Primary Care Provide r Reason for Visit * Reason Onset Date Comments Med Refill 11/01/2024 Encounter Details Date Type Department Care Team ([facility] st Contact Info) Description 11/01/2024 Refill [facility] [address] [place], [place] [phone] Sugar Mitchell MD [address] [place] [address] Seasonal allergies Social History Tobacco Use Types [...] EDT Office Visit [facility] [address] [place] [address] Ernie Noriega MD [address] [place] [address] documented as of this encounter Visit Diagnoses Diagnosis Seasonal allergies Allergic rhinitis, cause unspecified documented in this encounter Additional Health Concerns Assessment Noted Time PHQ-9 Depression Total Score: 2 01/21/20 24 1:25 PM EDT documented as of this encounter Care Teams Inspector Tubes Relationship Specialty Start Date End Date Ernie Noriega MD [address] [place] [address] PCP - General Internal Medicine 08/25/19 documented as of this encounter
--- OUTSIDE RECORDS SUMMARY | 2025-02-23 09:32 | XMS_ITS | Encounter Summary ---
Author Organization [employer] Address [address] [facility] 7t [place] [address] Care Team Providers Care Sustain Engineer Name Role Phone Ernie Noriega MD Primary Care Provide r Reason for Visit * Reason Onset Date Comments Med Refill 10/27/2023 Encounter Details Date Type Department Care Team ([facility] st Contact Info) Description 10/27/2023 Refill [facility] [address] [place] [address] Ernie Noriega MD 230 [place], [place] [phone] Seasonal allergies; Pain Social History Tobacco Use [...] 04/13/2025 2:15 PM EDT Office Visit [facility] [address] [place] [address] Ernie Noriega MD [address] [place] [address] documented as of this encounter Visit Diagnoses Diagnosis Seasonal allergies Allergic rhinitis, cause unspecified Pain Generalized pain documented in this encounter Additional Health Concerns Assessment Noted Time PHQ-9 Depression Total Score: 0 12/02/19 23 2:38 PM EST documented as of this encounter Care Teams Sustain Engineer Relationship Specialty Start Date End Date Ernie Noriega MD 230 [place] [address] PCP - General Internal Medicine 08/25/19 documented as of this encounter
--- OUTSIDE RECORDS SUMMARY | 2025-02-23 09:32 | XMS_ITS | Encounter Summary ---
Author Organization [employer] Address [address] [place] [address] 7t [place] [address] Care Team Providers Care Owner [employer] Name Role Phone Ernie Noriega MD Primary Care Provide r Reason for Visit * Reason Onset Date Comments Med Refill 10/25/2023 Encounter Details Date Type Department Care Team ([facility] st Contact Info) Description 10/25/2023 Refill [facility] [address] [place] [address] Ernie Noriega MD 230 [place] [address] Social History Tobacco Use Types Packs/Day Years [...] Description 04/13/2025 2:15 PM EDT Office Visit [facility] [address] [place] [address] Ernie Noriega MD 230 [place] [address] documented as of this encounter Visit Diagnoses Not on filedocumented in this encounter Additional Health Concerns Assessment Noted Time PHQ-9 Depression Total Score: 0 12/02/19 23 2:38 PM EST documented as of this encounter Care Teams Owner [employer] Relationship Specialty Start Date End Date Ernie Noriega MD 230 [place] [address] PCP - General Internal Medicine 08/25/19 documented as of this encounter
--- OUTSIDE RECORDS SUMMARY | 2025-02-23 09:32 | XMS_ITS | Encounter Summary ---
Author Organization [employer] Address [address] [place] [address] 7t [place] [address] Care Team Providers Care Farm Adviser Name Role Phone Ernie Noriega MD Primary Care Provide r Reason for Visit * Reason Onset Date Comments Med Refill 01/10/2025 Encounter Details Date Type Department Care Team ([facility] st Contact Info) Description 01/10/2025 Refill [facility] MEDICINE 230 [place] [address] Ernie Noriega MD 230 [place] [address] Chronic midline low back pain without sciatica [...] AM EDT documented as of this encounter Functional Status * Over the past 2 weeks, how often have you been bothered by any of the following problems? Question Answer Date of Assessment Author Patient Health Questionnaire -2 Score 1 01/12/2025 2:57 PM EDT Gracie Campo [place] * Little interest or pleasure in doing things Answer Date of Assessment Author Not at all 01/12/2025 2:57 PM EDT Priti Campo [place] * Feeling down, depressed, or hopeless Answer Date of Assessment Author Several days 01/12/2025 2:57 PM EDT Priti Campo [place] * Trouble falling or staying asleep, or sleeping too much Answer Date of Assessment Author Several days 01/12/2025 2:57 PM EDT Priti Campo [place] * Feeling tired or having little energy Answer Date of Assessment Author Not at all 01/12/2025 2:57 PM EDT Priti Campo [place] * Poor appetite or overeating Answer Date of Assessment Author Several days 01/12/2025 2:57 PM Priti Morgan [place] * Feeling bad about yourself - or that you are a failure or have let yourself or your family down Answer Date of Assessment Author Not at all 01/12/2025 2:57 PM [facility] Priti Campo [place] * Trouble concentrating on things, such as reading the newspaper or watching television Answer Date of Assessment Author Several days 01/12/2025 2:57 PM EDT Priti Campo [place] * Moving or speaking so slowly that other people could have noticed? Or the opposite - being so fidgety or restless that you have been moving around a lot more than usual. Answer Date of Assessment Author Not at all 01/12/2025 2:57 PM EDT Priti Campo [place] * Thoughts that you would be better off or hurting yourself in some way Answer Date of Assessment Author Not at all 01/12/2025 2:57 PM EDT Priti Campo MA * Patient Health Questionnaire-9 Score Answer Date of Assessment Author 4 01/12/2025 2:57 PM EDT Priti Campo MA * How difficult have these problems made it for you to do your work, take care of things at home, or get along with other people? Answer Date of Assessment Author Not difficult at all 01/12/2025 2:57 PM EDT [facility] Priti coronado [place] documented as of this encounter Plan of Treatment Upcoming Encounters Date Type Department Care Team (Late st Contact Info) Description 04/13/2025 2:15 PM EDT Office Visit [facility] MEDICINE [address] [facility] [place] [address] Ernie Noriega MD [address] [place] [address] documented as of this encounter Visit Diagnoses Diagnosis Chronic midline low back pain without sciatica documented in this encounter Additional Health Concerns Assessment Noted Time PHQ-9 Depression Total Score: 2 01/21/20 24 1:25 PM EDT documented as of this encounter Care Teams Farm Adviser Relationship Specialty Start Date End Date Ernie Noriega MD 230 [place] [address] PCP - General Internal Medicine 08/25/19 documented as of this encounter
--- OUTSIDE RECORDS SUMMARY | 2025-02-23 09:32 | XMS_ITS | Encounter Summary ---
Author Organization [employer] Address [address] [facility] 7t [place] [address] Care Team Providers Care Hearing Impaired Teacher Name Role Phone Ernie Noriega MD Primary Care Provide r Reason for Visit * Reason Onset Date Comments Med Refill 08/13/2024 Encounter Details Date Type Department Care Team ([facility] st Contact Info) Description 08/13/2024 Refill [facility] 230 [place] [address] Ernie Noriega MD 230 [place] [address] Seasonal allergies Social History Tobacco Use Types [...] EDT Office Visit [facility] [address] [place] [address] Ernie Noriega MD [address] [place] [address] documented as of this encounter Visit Diagnoses Diagnosis Seasonal allergies Allergic rhinitis, cause unspecified documented in this encounter Additional Health Concerns Assessment Noted Time PHQ-9 Depression Total Score: 2 01/21/20 24 1:25 PM EDT documented as of this encounter Care Teams Hearing Impaired Teacher Relationship Specialty Start Date End Date Ernie Noriega MD [address] [place] [address] PCP - General Internal Medicine 08/25/19 documented as of this encounter
--- OUTSIDE RECORDS SUMMARY | 2025-02-23 09:32 | XMS_ITS | Encounter Summary ---
Author Organization [email or web address] Address [address] [place] [address] 7t [place] [address] Care Team Providers Care Dean Of Men Name Role Phone Ernie Noriega MD Primary Care Provide r Reason for Visit * Reason Onset Date Comments Med Refill 10/17/2024 Encounter Details Date Type Department Care Team ([facility] st Contact Info) Description 10/17/2024 Refill [facility] MED[facility] [address] [place] [address] Ernie Noriega MD [address] [place] [address] Primary osteoarthritis of knee, unspecified laterality Social [...] 2:15 PM EDT Office Visit [facility] [address] [place] [address] Ernie Noriega MD [address] [place] [address] documented as of this encounter Visit Diagnoses Diagnosis Primary osteoarthritis of knee, unspecified laterality documented in this encounter Additional Health Concerns Assessment Noted Time PHQ-9 Depression Total Score: 2 01/21/20 24 1:25 PM EDT documented as of this encounter Care Teams Dean Of Men Relationship Specialty Start Date End Date Ernie Noriega MD [address] [place] [address] PCP - General Internal Medicine 08/25/19 documented as of this encounter
--- OUTSIDE RECORDS SUMMARY | 2025-02-23 09:32 | XMS_ITS | Clinical Summary ---
Author Organization [facility] Address [address] [place] [address] Phone Care Team Providers Care Poultry Farm Supervisor Name Role Phone Ernie Merritt MD Primary [...] Orthopedic Surgery [facility] [address] [facility] [address] [place] [address] Nicolasa Yu PA S/P trigger finger release (Primary Dx) 12/07/2024 1:30 PM EST - 12/07/2024 3:00 PM EST Surgery [facility] OR [address] [place] [address] Trista David MD LEFT A1 JOAO/TRIGGER FINGER RELEASE INDEX FINGER [10350 (CPT??)] 12/07/2024 12:30 PM EST Anesthesia Event [facility] OR [address] [place] [phone] Irvin Fields MD Decandio, Laura, CRNA 12/07/2024 11:51 AM EST - 12/07/2024 2:43 PM EST Hospital Encounter [facility] OR [address] [place] [address] Trista David MD Discharge Disposition: Home or Self Care from Last 3 Months Surgical History Surgery [...] Procedure Name Priority Date/Time Associated Diagnosis Comments IA INCISION TENDON SHEATH 12/07/2024 12:32 PM EST Trigger finger, unspecified finger Case Notes PA ASSIST from Last 3 Months Insurance MEDICAID - [...] currently active code status orders. Care Teams Poultry Farm Supervisor Relationship Specialty Start Date End Date Ernie Merritt MD [address] [place] [address] [place] [phone] PCP - General Internal Medicine 05/20/21
--- OUTSIDE RECORDS SUMMARY | 2025-02-23 09:32 | XMS_ITS | Encounter Summary ---
Author Organization [employer] Address [address] [place] [address] 7 [place] [address] Care Team Providers Care Night Assistant Name Role Phone Ernie Noriega MD Primary Care Provide r Reason for Visit * Reason Onset Date Comments Appointment Request 02/17/2023 Encounter Details Date Type Department Care Team ([facility] st Contact Info) Description 02/17/2023 Telephone [facility] MED[facility]INE [address] [place] [address] Ernie Noriega MD [address] [place] [address] Appointment Request Social History Tobacco Use Types [...] a colonoscopy due to advise by her block sorter in [facility] Please contact pt AT [phone] Sinhala Speaker documented in this encounter Plan of Treatment Upcoming Encounters Date Type Department Care Team (Late st Contact Info) Description 04/13/2025 2:15 PM EDT Office Visit [facility] MED[facility] [address] [place] [address] Ernie Noriega MD [address] [place] [address] documented as of this encounter Visit Diagnoses Not on filedocumented in this encounter Additional Health Concerns Assessment Noted Time PHQ-9 Depression Total Score: 0 12/02/19 23 2:38 PM EST documented as of this encounter Care Teams Night Assistant Relationship Specialty Start Date End Date Ernie Noriega MD [address] [place] [address] PCP - General Internal Medicine 08/25/19 documented as of this encounter
--- OUTSIDE RECORDS SUMMARY | 2025-02-23 09:32 | XMS_ITS | Encounter Summary ---
Author Organization [employer] Address 75 [facility] 7t [place] [address] Care Team Providers Care Interactive Art Director Name Role Phone Ernie Noriega MD Primary Care Provide r Reason for Visit * Reason Onset Date Comments Med Refill 11/04/2023 Encounter Details Date Type Department Care Team ([facility] st Contact Info) Description 11/04/2023 Refill [facility] [address] [place] [address] Ernie Noriega MD 230 [place], [place] [phone] Pain Social History Tobacco Use Types Packs/Day [...] Description 04/13/2025 2:15 PM EDT Office Visit [facility] MED[facility]INE 230 [place] [address] Ernie Noriega MD 230 [place] [address] documented as of this encounter Visit Diagnoses Diagnosis Pain Generalized pain documented in this encounter Additional Health Concerns Assessment Noted Time PHQ-9 Depression Total Score: 0 12/02/19 23 2:38 PM EST documented as of this encounter Care Teams Interactive Art Director Relationship Specialty Start Date End Date Ernie Noriega MD [address] [place] [address] PCP - General Internal Medicine 08/25/19 documented as of this encounter
--- OUTSIDE RECORDS SUMMARY | 2025-02-23 09:32 | XMS_ITS | Encounter Summary ---
Author Organization [employer] Address 75 [facility] 7t [place] [address] Care Team Providers Care Talent Management Manager Name Role Phone Ernie Noriega MD Primary Care Provide r Reason for Visit * Reason Comments Med Refill Encounter Details Date Type Department Care Team ([facility] st Contact Info) Description 08/10/2023 Refill [facility] MEDICINE 230 [place], [place] [phone] Ernie Noriega MD 230 [place] [address] Primary osteoarthritis of knee, unspecified laterality; Chronic [...] Visit [facility] MEDICINE [address] [place] [address] Ernie Noriega MD [address] [place] [address] documented as of this encounter Visit Diagnoses Diagnosis Primary osteoarthritis of knee, unspecified laterality Chronic midline low back pain without sciatica Cervical radiculopathy Brachial neuritis or radiculitis nos Pain Generalized pain documented in this encounter Additional Health Concerns Assessment Noted Time PHQ-9 Depression Total Score: 0 12/02/19 23 2:38 PM EST documented as of this encounter Care Teams Talent Management Manager Relationship Specialty Start Date End Date Ernie Noriega MD [address] [place] [address] PCP - General Internal Medicine 08/25/19 documented as of this encounter
--- OUTSIDE RECORDS SUMMARY | 2025-02-23 09:32 | XMS_ITS | Encounter Summary ---
Author Organization [employer] Address 75 [facility] 7t [place] [address] Care Team Providers Care Imcu Specialist Name Role Phone Ernie Noriega MD Primary Care Provide r Reason for Visit * Reason Onset Date Comments Med Refill 06/25/2024 Encounter Details Date Type Department Care Team ([facility] st Contact Info) Description 06/25/2024 Refill [facility] MEDICINE [address] [place] [address] Ernie Noriega MD [address] [place] [address] Chronic midline low back pain without sciatica; [...] Office Visit [facility] MEDICINE [address] [place] [address] Ernie Noriega MD [address] [place] [address] documented as of this encounter Visit Diagnoses Diagnosis Chronic midline low back pain without sciatica Cervical radiculopathy Brachial neuritis or radiculitis nos documented in this encounter Additional Health Concerns Assessment Noted Time PHQ-9 Depression Total Score: 2 01/21/20 24 1:25 PM EDT documented as of this encounter Care Teams Imcu Specialist Relationship Specialty Start Date End Date Ernie Noriega MD [address] [place] [address] PCP - General Internal Medicine 08/25/19 documented as of this encounter
--- OUTSIDE RECORDS SUMMARY | 2025-02-23 09:32 | XMS_ITS | Referral Summary ---
Author Organization [facility] Address [address] [place] [address] Care Team Providers Care Knowledge Management Advisor Name Role Phone Ernie Merritt Primary Care Provider + Encounters Date Type Department Care Team Description 02/13/2025 Telephone [facility] [address] [place] [address] Christopher Peres MD PAC General Info 01/31/2025 Telephone [facility] [address] [place] [address] Telephone Intake, Staff PAC Order Request 12/14/2024 9:00 AM EST Office Visit [facility] [address] [place] [address] Christopher Peres MD Chronic bilateral low back pain with bilateral sciatica (Primary Dx); H/O cervical spine surgery 12/13/2024 Telephone [facility] [address] [place] [address] Christopher Peres MD 12/08/2024 Telephone [facility] [address] [place] [address] Christopher Peres MD from Last 3 Months [...] propionate (FLONASE) 50 mcg/actuation nasal spray SMARTSI Sapello(s) Both Nares Twice Daily 3 Active tamsulosin [...] Info) Description 03/14/2025 3:00 PM EDT Follow-Up [facility] [address] [place] [phone] Christopher Peres MD [address] [place] [address] Procedures * Due to [place] [employer] law, this organization might not be sharing [...] Last 3 Months Results * Due to [place] [employer] law, this organization might not be sharing negative HIV tests. * MRI Cervical Spine WO Contrast (12/21/2024 7:55 AM EDT) Anatomical Region Laterality Modality Spine, C-spine Magnetic Resonan ce 12/21/2024 7:30 AM EDT Narrative 12/22/2024 2:31 PM EDT [facility] Accession Number: [id number] Patient Name: Miguelina Julien Date of : 1965 Date of Exam: 12-21-2024 Referring Physician: Christopher Peres ?[facility] ?[address] [place] [address] ?[place] [address] Exam: MR Cervical Spine (C-) CPT 92265 Room Description: [facility] 1.5 MR Cervical Spine (C-) CPT 43404 INDICATION: previous C spine surgery, appears tight on MRI T spine chief credit officer ?? TECHNIQUE: Multiplanar, multisequence MRI of the [...] MD Procedure Note Provider, Morrell - 12/22/2024 [facility] Accession Number: [id number] Patient Name: Miguelina Julien Date of : 1965 Date of Exam: 12-21-2024 Referring Physician: Christopher Peres [place] [address] Exam: MR Cervical Spine (C-) CPT 95641 Room Description: [facility] 1.5 MR Cervical Spine (C-) CPT 25209 INDICATION: previous C spine surgery, appears tight on MRI T spine chief credit officer TECHNIQUE: Multiplanar, multisequence MRI of the cervical [...] IM MRI PROCEDURES Final Re sult * MRI [...] obtain the completed interpretation. ? Workstation ID: [id number] Narrative 12/14/2024 5:30 PM EST COMPARISON: There are no prior studies available for comparison at this time. Resulting Agency Comment [id number] Procedure Note Stone Reid MD - 12/14/2024 [...] possible to obtain thecompleted interpretation. Workstation ID: [id number] us Christopher Peres MD IMG XR PROCEDURES [...] obtain the completed interpretation. ? Workstation ID: [id number] Narrative 12/14/2024 5:30 PM EST COMPARISON: There are no prior studies available for comparison at this time. Resulting Agency Comment [id number] Procedure Note Stone Reid MD - 12/14/2024 [...] possible to obtain thecompleted interpretation. Workstation ID: [id number] Christopher Peres MD IMG XR PROCEDURES Final Res ult from Last 3 Months Insurance [facility] Care Teams Knowledge Management Advisor Relationship Specialty Start Date End Date Ernie Merritt [address] [place] [address] PCP - General Internal Medicine 11/29/24
--- OUTSIDE RECORDS SUMMARY | 2025-02-23 09:32 | XMS_ITS | Encounter Summary ---
Author Organization [employer] Address 75 [facility] 7t [place] [address] Care Team Providers Care Adoption Manager Name Role Phone Ernie Noriega MD Primary Care Provide r Reason for Visit * Reason Onset Date Comments Med Refill 08/12/2024 Encounter Details Date Type Department Care Team ([facility] st Contact Info) Description 08/12/2024 Refill [facility] MEDICINE 230 [place], [place] [phone] Ilsa Robison, ANP 230 [place] [address] Primary osteoarthritis of knee, unspecified laterality Social [...] 2:15 PM EDT Office Visit [facility] MEDICINE [address] [place] [address] Ernie Noriega MD [address] [place] [address] documented as of this encounter Visit Diagnoses Diagnosis Primary osteoarthritis of knee, unspecified laterality documented in this encounter Additional Health Concerns Assessment Noted Time PHQ-9 Depression Total Score: 2 01/21/20 24 1:25 PM EDT documented as of this encounter Care Teams Adoption Manager Relationship Specialty Start Date End Date Ernie Noriega MD [address] [place] [address] PCP - General Internal Medicine 08/25/19 documented as of this encounter
--- OUTSIDE RECORDS SUMMARY | 2025-02-23 09:32 | XMS_ITS | Encounter Summary ---
Author Organization [employer] Address [address] [place] [address] 7t [place] [address] Care Team Providers Care Multiple Coil Winder Name Role Phone Ernie Noriega MD Primary Care Provide r Reason for Visit * Reason Onset Date Comments Med Refill 01/10/2025 Encounter Details Date Type Department Care Team ([facility] st Contact Info) Description 01/10/2025 Refill [facility] MEDICINE [address] [place] [address] Ernie Noriega MD [address] [place] [address] Primary osteoarthritis of knee, unspecified laterality Social [...] difficult at all 01/12/2025 2:57 PM EDT [facility] Priit coronado [place] documented as of this encounter Plan of Treatment Upcoming Encounters Date Type Department Care Team (Late st Contact Info) Description 04/13/2025 2:15 PM EDT Office Visit [facility] MEDICINE [address] [place] [address] Ernie Noriega MD [address] [place] [address] documented as of this encounter Visit Diagnoses Diagnosis Primary osteoarthritis of knee, unspecified laterality documented in this encounter Additional Health Concerns Assessment Noted Time PHQ-9 Depression Total Score: 2 01/21/20 24 1:25 PM EDT documented as of this encounter Care Teams Multiple Coil Winder Relationship Specialty Start Date End Date Ernie Noriega MD [address] [place] [address] PCP - General Internal Medicine 08/25/19 documented as of this encounter
--- OUTSIDE RECORDS SUMMARY | 2025-02-23 09:32 | XMS_ITS | Encounter Summary ---
Author Organization [employer] Address [address] [place] [address] 7t [place] [address] Care Team Providers Care Securities Analyst Name Role Phone Ernie Noriega MD Primary Care Provide r Encounter Details Date Type Department Care Team (Latest Contact Info) Description 03/07/2021 Abstract [facility] CONVERSIONS Dental, Provider, DDS Social History [...] Office Visit [facility] MEDICINE [address] [place] [address] Ernie Noriega MD [address] [place] [address] documented as of this encounter Visit Diagnoses Not on filedocumented in this encounter Care Teams Securities Analyst Relationship Specialty Start Date End Date Ernie Noriega MD [address] [place] [address] PCP - General Internal Medicine 08/25/19 documented as of this encounter
--- OUTSIDE RECORDS SUMMARY | 2025-02-23 09:32 | XMS_ITS | Encounter Summary ---
Author Organization [employer] Address [address] [facility] 7t [place] [address] Care Team Providers Care Post Anesthesia Room Nurse Name Role Phone Ernie Noriega MD Primary Care Provide r Reason for Visit * Reason Onset Date Comments Med Refill 10/25/2023 Encounter Details Date Type Department Care Team ([facility] st Contact Info) Description 10/25/2023 Refill [facility] [address] [place] [address] Perlita Woody MD [address] [place] [address] Primary hypertension Social History Tobacco Use Types [...] 04/13/2025 2:15 PM EDT Office Visit [facility] [address] [place] [address] Ernie Noriega MD [address] [place] [address] documented as of this encounter Visit Diagnoses Diagnosis Primary hypertension Unspecified essential hypertension documented in this encounter Additional Health Concerns Assessment Noted Time PHQ-9 Depression Total Score: 0 12/02/19 23 2:38 PM EST documented as of this encounter Care Teams Post Anesthesia Room Nurse Relationship Specialty Start Date End Date Ernie Noriega MD [address] [place] [address] PCP - General Internal Medicine 08/25/19 documented as of this encounter
--- OUTSIDE RECORDS SUMMARY | 2025-02-23 09:32 | XMS_ITS | Encounter Summary ---
Author Organization [facility] Address [address] [place] [address] Care Team Providers Care Physician Neonatology Name Role Phone Ernie Merritt Primary Care Provider + Reason for Visit * Reason Onset Date Comments PAC Order Request 01/31/2025 Encounter Details Date Type Department Care Team (Late st Contact Info) Description 01/31/2025 Telephone [facility] [address] [place] [address] Telephone Intake, Staff PAC Order Request Social [...] go? (Location and Address if not a [facility]) [facility] Fax number of lab (if not [facility]): Pt unsure of the fax number Any question please contact the pt's back at the number listed? [phone] Thanks documented in this encounter Plan of Treatment Upcoming Encounters Date Type Department Care Team (Late st Contact Info) Description 03/14/2025 3:00 PM EDT Follow-Up [facility] [address] [place] [address] Christopher Peres MD [address] [place] [address] documented as of this encounter Visit Diagnoses Not on filedocumented in this encounter Care Teams Physician Neonatology Relationship Specialty Start Date End Date Ernie Merritt [address] [place] [address] PCP - General Internal Medicine 11/29/24 documented as of this encounter
--- OUTSIDE RECORDS SUMMARY | 2025-02-23 09:32 | XMS_ITS | Encounter Summary ---
Author Organization [employer] Address [address] [facility] 7t [place] [address] Care Team Providers Care Mine Administrator Supervisor Name Role Phone Ernie Noriega MD Primary Care Provide r Reason for Visit * Reason Onset Date Comments Med Refill 10/27/2023 Encounter Details Date Type Department Care Team ([facility] st Contact Info) Description 10/27/2023 Refill [facility] [address] [place] [address] Ernie Noriega MD [address] [place] [address] Mild persistent asthma without complication; Pain; Chronic [...] housing situation today? I have robin desiree 07/29/[address] you li [...] Description 04/13/2025 2:15 PM EDT Office Visit [facility] [address] [place] [address] Ernie Noriega MD [address] [place] [address] documented as of this encounter Visit Diagnoses Diagnosis Mild persistent asthma without complication Pain Generalized pain Chronic midline low back pain without sciatica Cervical radiculopathy Brachial neuritis or radiculitis nos documented in this encounter Additional Health Concerns Assessment Noted Time PHQ-9 Depression Total Score: 0 12/02/19 23 2:38 PM EST documented as of this encounter Care Teams Mine Administrator Supervisor Relationship Specialty Start Date End Date Ernie Noriega MD [address] [place] [address] PCP - General Internal Medicine 08/25/19 documented as of this encounter
--- OUTSIDE RECORDS SUMMARY | 2025-02-23 09:32 | XMS_ITS | Encounter Summary ---
Author Organization [employer] Address [address] [facility] 7t [place] [address] Care Team Providers Care Pricing Associate Name Role Phone Ernie Noriega MD Primary Care Provide r Reason for Visit * Reason Onset Date Comments Med Refill 01/31/2025 Encounter Details Date Type Department Care Team ([facility] st Contact Info) Description 01/31/2025 Refill [facility] [address] [place] [address] Ernie Noriega MD [address] [place] [address] Pain Social History Tobacco Use Types Packs/Day [...] [facility] [address] [place] [address] Ernie Noriega MD [address] [place] [address] documented as of this encounter Visit Diagnoses Diagnosis Pain Generalized pain documented in this encounter Additional Health Concerns Assessment Noted Time PHQ-9 Depression Total Score: 4 01/13/20 25 2:57 PM EDT documented as of this encounter Care Teams Pricing Associate Relationship Specialty Start Date End Date Ernie Noriega MD [address] [place] [address] PCP - General Internal Medicine 08/25/19 documented as of this encounter
--- OUTSIDE RECORDS SUMMARY | 2025-02-23 09:32 | XMS_ITS | Encounter Summary ---
Author Organization [employer] Address [address] [facility] 7t [place] [address] Care Team Providers Care Ham Sawyer Name Role Phone Ernie Noriega MD Primary Care Provide r Reason for Visit * Reason Onset Date Comments Med Refill 01/26/2024 Encounter Details Date Type Department Care Team ([facility] st Contact Info) Description 01/26/2024 Refill [facility] [address] [place], [place] [phone] Ilsa Robison, ANP [address] [place] [address] Chronic midline low back pain without sciatica; [...] Office Visit [facility] [address] [place] [address] Ernie Noriega MD [address] [place] [address] documented as of this encounter Visit Diagnoses Diagnosis Chronic midline low back pain without sciatica Cervical radiculopathy Brachial neuritis or radiculitis nos documented in this encounter Additional Health Concerns Assessment Noted Time PHQ-9 Depression Total Score: 2 01/21/20 24 1:25 PM EDT documented as of this encounter Care Teams Ham Sawyer Relationship Specialty Start Date End Date Ernie Noriega MD [address] [place] [address] PCP - General Internal Medicine 08/25/19 documented as of this encounter
--- OUTSIDE RECORDS SUMMARY | 2025-02-23 09:32 | XMS_ITS | Clinical Summary ---
Author Organization [facility] Address [address] [place] [address] Care Team Providers Care Signal Tester Name Role Phone Ernie Merritt Primary Care [...] propionate (FLONASE) 50 mcg/actuation nasal spray SMARTSI Hitchins(s) Both Nares Twice Daily 3 Active tamsulosin [...] Type Department Care Team Description 02/13/2025 Telephone [facility] [address] [place] [address] Christopher Peres MD PAC General Info 01/31/2025 Telephone [facility] Neurosurgery [address] [address] Telephone Intake, Staff PAC Order Request 12/14/2024 9:00 AM EST Office Visit [facility] [address] [place] [phone] Christopher Peres MD Chronic bilateral low back pain with bilateral sciatica (Primary Dx); H/O cervical spine surgery 12/13/2024 Telephone [facility] [address] [place] [address] Christopher Peres MD 12/08/2024 Telephone [facility] [address] [place] [address] Christopher Peres MD from Last 3 Months [...] Info) Description 03/14/2025 3:00 PM EDT Follow-Up [facility] [address] [place] [address] Christopher Peres MD [address] [place] [address] Health Maintenance Due Date Last Done Comments [...] Health Annual Screening 10/12/2024 Mammogram 12/23/2024 12/23/2022, 12/04/2019, 09/10/2018 DTaP,Tdap,and Td Vaccines (3 - Td or Tdap) 04/04/2031 04/04/2021, 03/10/2014, 05/12/2012 Zoster Vaccines Completed 08/15/2020, 05/26/2020 Hepatitis C Screening Completed 11/07/2022 Pneumococcal Vaccine: 50+ Years Completed 05/13/2023, 11/12/2015, 05/12/2012 Influenza Vaccine Completed 07/09/2024, , 07/16/2022, Additional history exists Hepatitis B Vaccines Aged Out No long er eligible based on patient's age to complete this topic Procedures * Due to [place] [employer] law, this organization might not be sharing [...] 3 Months Results * Due to [place] [employer] law, this organization might not be sharing negative HIV tests. * MRI Cervical Spine WO Contrast (12/21/2024 7:55 AM EDT) Anatomical Region Laterality Modality Spine, C-spine Magnetic Resonan ce 12/21/2024 7:30 AM EDT Narrative 12/22/2024 2:31 PM EDT [facility] Accession Number: [id number] Patient Name: Miguelina Julien Date of : 1965 Date of Exam: 12-21-2024 Referring Physician: Christopher Peres ?[facility] ?[address] [place] [address] ?[place], [place] [address] Exam: MR Cervical Spine (C-) CPT 26529 Room Description: 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 TECHNIQUE: Multiplanar, multisequence MRI of the [...] Note Provider, Porsche - 12/22/[address] [facility] Accession Number: [id number] Patient Name: Miguelina Julien Date of : 1965 Date of Exam: 12-21-2024 Referring Physician: Christopher Peres [place] [address] Exam: MR Cervical Spine (C-) CPT 37824 Room Description: 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 ? Workstation ID: [id number] Narrative 12/14/2024 5:30 PM EST COMPARISON: There are no prior studies available for comparison at this time. Resulting Agency Comment [id number] Procedure Note Stone Reid MD - 12/14/2024 [...] possible to obtain thecompleted interpretation. Workstation ID: [id number] us Christopher Peres MD IMG XR PROCEDURES [...] obtain the completed interpretation. ? Workstation ID: [id number] Narrative 12/14/2024 5:30 PM EST COMPARISON: There are no prior studies available for comparison at this time. Resulting Agency Comment [id number] Procedure Note Stone Reid MD - 12/14/2024 [...] possible to obtain thecompleted interpretation. Workstation ID: [id number] Christopher Peres MD IMG XR PROCEDURES Final Res ult from Last [address] [place], [place] [address] [address] Care Teams Signal Tester Relationship Specialty Start Date End Date Ernie Merritt [address] [place] [phone] PCP - General Internal Medicine 11/29/24
--- OUTSIDE RECORDS SUMMARY | 2025-02-23 09:32 | XMS_ITS | Encounter Summary ---
Author Organization [employer] Address [address] [facility] 7t [place] [address] Care Team Providers Care Granular Operator Name Role Phone Ernie Noriega MD Primary Care Provide r Reason for Visit * Reason Comments Med Refill Encounter Details Date Type Department Care Team ([facility] st Contact Info) Description 07/28/2024 Refill [facility] [address] [place], [place] [phone] Ernie Noriega MD [address] [place], [place] [phone] Primary osteoarthritis of knee, unspecified laterality Social [...] Description 04/13/2025 2:15 PM EDT Office Visit [facility] [address] [place] [address] Ernie Noriega MD [address] [place] [address] documented as of this encounter Visit Diagnoses Diagnosis Primary osteoarthritis of knee, unspecified laterality documented in this encounter Additional Health Concerns Assessment Noted Time PHQ-9 Depression Total Score: 2 01/21/20 24 1:25 PM EDT documented as of this encounter Care Teams Granular Operator Relationship Specialty Start Date End Date Ernie Noriega MD [address] [place] [address] PCP - General Internal Medicine 08/25/19 documented as of this encounter
--- OUTSIDE RECORDS SUMMARY | 2025-02-23 09:32 | XMS_ITS | Encounter Summary ---
Author Organization [employer] Address [address] [facility] 7t [place] [address] Care Team Providers Care Cow Buyer Name Role Phone Ernie Noriega MD Primary Care Provide r Reason for Visit * Reason Comments Med Refill Encounter Details Date Type Department Care Team ([facility] st Contact Info) Description 10/16/2023 Refill [facility] [address] [place], [place] [phone] Ernie Noriega MD [address] [place], [place] [phone] Pain Social History Tobacco Use Types Packs/Day [...] EDT Office Visit [facility] [address] [place] [address] Ernie Noriega MD [address] [place] [address] documented as of this encounter Visit Diagnoses Diagnosis Pain Generalized pain documented in this encounter Additional Health Concerns Assessment Noted Time PHQ-9 Depression Total Score: 0 12/02/19 23 2:38 PM EST documented as of this encounter Care Teams Cow Buyer Relationship Specialty Start Date End Date Ernie Noriega MD [address] [place] [address] PCP - General Internal Medicine 08/25/19 documented as of this encounter
--- OUTSIDE RECORDS SUMMARY | 2025-02-23 09:33 | XMS_ITS | Clinical Summary ---
Author Organization [employer] Address [address] [place] [address] 7[address] [place] [address] Care Team Providers Care Car Loader Name Role Phone Ernie Noriega MD Primary [...] DAY 90 tablet 2 06/07/20 24 Active omeprazole (PriLOSEC) [address] capsuleIndication [...] PAIN 60 tablet 3 02/03/20 25 Active fluticasone (Flonase) 50 MCG/ACT nasal sprayIndications: Seasonal allergies USE 2 SPRAYS INTO EACH NOSTRIL 2 TIMES DAILY 48 mL 02/15/20 25 Active hydroCHLOROthiazi de (HYDRODiuril) 25 MG tabletIndications :Primary hypertension TAKE 1 TABLET BY MOUTH EVERY MORNING 90 tablet 02/15/20 25 Active Acetaminophen Extra Strength 500 MG tabletIndications :Pain TAKE 1 TABLET BY MOUTH EVERY 12 HOURS IF NEEDED FOR PAIN 60 tablet 3 10/11/20 24 2024 Discontinued fluticasone (Flonase) 50 MCG/ACT nasal sprayIndications: Seasonal allergies USE 2 SPRAYS INTO EACH NOSTRIL 2 TIMES DAILY 48 mL 11/03/19 25 2024 Discontinued hydroCHLOROthiazi de (HYDRODiuril) 25 MG tabletIndications :Primary hypertension TAKE 1 TABLET BY MOUTH EVERY MORNING 90 tablet 11/18/19 25 2024 Discontinued(R eorder (will not trigger [...] has chronic low back pain, treated at [facility] by Dr Clint Newberry. Hx of AP fusion from L4-sacrum in 2003. She has received epidural injections initially with good results but that is no longer the case. Pt developed lumbar spinal stenosis and on 01/14/2021 underwent Posterior neural foraminotomy L2-L3 by Dr. Bailey. She was admitted to [facility] from 11/13/2022 until 11/20/2022 due to worsening low back pain with radiation to her right thigh and right leg after an experimental thoracic spinal stimulation procedure at the surgery center [facility] (She was referred there by [facility]). Procedure was aborted after pt experienced [...] does not want to follow-up with [facility] d/t the severe pain she experienced with [...] care of Orthopaedic specialist Dr Lees at [facility]. Pt would like to hold off on procedure until her back feels better. I contacted the office of Orthopaedic surgeon who stated this was an elective procedure and was ok with delaying until pt felt ready Assessment & Plan (12/04/2022 8:31 AM EST): Pt had initially come in for a Preoperative exam. Under the care of Orthopaedic specialist Dr Lees at [facility]. Pt would like to hold [...] [facility] I had been prescribing tramadol [...] has a Medical [place] Card recommended by [facility] treating physician. pt utilizes the liquid form. She is no longer under the care of [facility] I had been prescribing tramadol to [...] has a Medical [place] Card recommended by [facility] treating physician. pt utilizes the liquid form. She is no longer under the care of [facility] I had been prescribing tramadol to [...] Dr Soto who referred her back to [facility] for back pain History of total [...] Under the care of Dr Almeida at [facility]. see med list for current psychiatric meds, no changes. she has been stable they have requested me to continue his medications for insomnia, Ambien and Benadryl Chronic low back pain 05/12/2012 Assessment & Plan (01/12/2025 3:22 PM EDT): Pt here for a f/u Hx of chronic low back pain, treated in the past at [facility] by Dr Clint Newberry. Hx of AP fusion from L4-sacrum in 2003. She received epidural injections with good results in the past. but that was no longer the case. Pt developed lumbar spinal stenosis and on 01/14/2021 underwent Posterior neural foraminotomy L2-L3by Dr. Bailey. She was admitted to [facility] from 11/13/2022 until 11/20/2022 due to worsening low back pain with radiation to her right thigh and right leg after an experimental thoracic spinal stimulation procedure at the surgery center [facility] (She was referred there by [facility]). Procedure was aborted after pt experienced [...] the pain clinic. Pt was evaluated at [facility] Pain clinic: 11/08/2024 they did an [...] encroachment seen. Subsequently she was referred to [facility] Neurosurgery, seen Their assesment was:that [...] back pain, treated in the past at [facility] by Dr Clint Newberry. Hx of AP fusion from L4-sacrum in 2003. She received epidural injections with good results in the past. but that was no longer the case. Pt developed lumbar spinal stenosis and on 01/14/2021 underwent Posterior neural foraminotomy L2-L3by Dr. Bailey. She was admitted to [facility] from 11/13/2022 until 11/20/2022 due to worsening low back pain with radiation to her right thigh and right leg after an experimental thoracic spinal stimulation procedure at the surgery center [facility] (She was referred there by [facility]). Procedure was aborted after pt experienced [...] pain, she had been receiving treatment at [facility] by Dr Clint Newberry. Hx of AP fusion from L4-sacrum in 2003. She has received epidural injections with good results in the past. but that was no longer the case. Pt developed lumbar spinal stenosis and on 01/14/2021 underwent Posterior neural foraminotomy L2-L3by Dr. Bailey. Patient is here for a follow up. She was recently admitted to [facility] from 11/13/2022 until 11/20/2022 due to worsening low back pain with radiation to her right thigh and right leg after an experimental thoracic spinal stimulation procedure at the surgery center [facility] (She was referred there by [facility]). Procedure was aborted after pt experienced [...] does not want to follow-up with [facility] d/t the severe pain she experienced with [...] pain, she had been receiving treatment at [facility] by Dr Clint Newberry. Hx of AP fusion from L4-sacrum in 2003. She has received epidural injections with good results in the past. but that was no longer the case. Pt developed lumbar spinal stenosis and on 01/14/2021 underwent Posterior neural foraminotomy L2-L3by Dr. Bailey. She was admitted to [facility] from 11/13/2022 until 11/20/2022 due to worsening low back pain with radiation to her right thigh and right leg after an experimental thoracic spinal stimulation procedure at the surgery [facility] (She was referred there by [facility]). Procedure was aborted after pt experienced [...] does not want to follow-up with [facility] d/t the severe pain she experienced with [...] pain, she had been receiving treatment at [facility] by Dr Clint Newberry. Hx of AP fusion from L4-sacrum in 2003. She has received epidural injections with good results in the past. but that was no longer the case. Pt developed lumbar spinal stenosis and on 01/14/2021 underwent Posterior neural foraminotomy L2-L3by Dr. Bailey. Patient is here for a follow up. She was recently admitted to [facility] from 11/13/2022 until 11/20/2022 due to worsening low back pain with radiation to her right thigh and right leg after an experimental thoracic spinal stimulation procedure at the surgery [facility] (She was referred there by [facility]). Procedure was aborted after pt experienced [...] does not want to follow-up with [facility] d/t the severe pain she experienced with [...] Encounters Date Type Department Care Team Description 02/14/2025 Refill [facility] [address] [place], [place] [phone] Ilsa Robison ANP Primary hypertension 02/14/2025 Refill [facility] [address] [place], [place] [phone] Ernie Noriega MD Seasonal allergies; Primary hypertension 02/10/2025 Telephone [facility] [address] [place] [address] Ernie Noriega MD Referral 01/31/2025 Refill [facility] [address], [place] [address] Ernie Noriega MD Pain 01/31/2025 Refill [facility] [address], [place] [address] Ernie Noriega MD Pain 01/19/2025 Telephone [facility] [address], [place] [address] Ernie Noriega MD ER Follow-up 01/12/2025 3:00 PM EDT Office Visit [facility] [address], [place] [address] Ernie Noriega MD Varicose veins of leg with pain, right (Primary Dx); Right foot pain; Chronic midline low back pain without sciatica; Essential hypertension 01/12/2025 Telephone [facility] [address], [place] [address] Ernie Noriega MD Appointment Request 01/12/2025 Travel 01/10/2025 Refill [facility] [address], [place] [address] Ernie Noriega MD Primary osteoarthritis of knee, unspecified laterality 01/10/2025 Refill [facility] [address], [place] [address] Ernie Noriega MD Chronic midline low back pain without sciatica 01/09/2025 Refill [facility] [address], [place] [address] Ofelia Melgar MD 01/09/2025 Refill [facility] [address], [place] [address] Ernie Noriega MD Ischial pain, right; Chronic midline low back pain without sciatica; Primary osteoarthritis of knee, unspecified laterality 01/05/2025 Orders Only [facility] [address], [place] [address] Ernie Noriega MD 01/05/2025 Travel 12/29/2024 Telephone [facility] [address] [place] [phone] Ernie Noriega MD Chart Prep 12/23/2024 Population Health Risk Score [facility] ([facility]) Department [address] [place] [phone] Provider, Population Health Generic 12/23/2024 Telephone [facility] [address] [place] [phone] Ernie Noriega MD Referral 12/22/2024 Telephone [facility] [address] [place] [phone] Marty Soto MD Results 12/22/2024 [facility] [address] [address] Marty Soto MD Right foot pain (Primary Dx) 12/22/2024 Telephone [facility] [address] [place] [phone] Ernie Noriega MD Nurse Triage 12/21/2024 9:00 AM EDT Office Visit [facility] [address] [address] Marty Soto MD Right foot pain (Primary Dx); Ecchymoses, spontaneous 12/15/[address] [address] Ernie Noriega MD 12/09/2024 Orders Only [facility] External Provider, [facility] 11/28/[address] [address] Ernie Noriega MD Gastritis without bleeding, unspecified chronicity, unspecified gastritis type from Last 3 Months Immunizations Immunization Administration Dates Next Due Influenza injectable quadriv [...] 2:15 PM EDT Office Visit [facility] [address] [place] [address] Ernie Noriega MD [address] [place] [address] Health Maintenance Due Date Last Done Comments [...] 8:37 AM EDT) Triglycerides 165(H) <150 mg/dL [facility] Comment:Desirable Triglyceri de: less than 150 mg/dLBorderline High Triglyceride 150-199 mg/dLHigh Triglyceride: 200-499 mg/dLVery High Triglyceride: greater than or equal to 5OO mg/dL Cholesterol 232(H) <200 mg/dL [facility] Comment:Desirable Cholestero l: less than 200 mg/dLBorderline High Cholesterol: 200-239 mg/dLHigh Cholesterol: greater than 239 mg/dL LDL Cholesterol Calculated 133(H) <100 mg/dL [facility] Comment:Desirable LDL: less than 100 mg/dLNear Optimal/Above Optimal LDL: 110- 129 mg/dLBorderline High LDL: 130-159 mg/dLHigh LDL: 160-189 mg/dLVery High LDL: greater than or equal to 190 mg/dL HDL Cholesterol 66 >40 mg/dL [facility] Comment:Desirable HDL: great er than 40 mg/dL Note: This HDL assay may give artificially low results in patients with liver disease. Blood Venous blood specimen / Unknown 01/25/2025 8:37 AM EDT 01/25/2025 11:14 AM EDT us Ernie Ro MD LAB BLOOD ORDERABLES Final Result [facility] [address] [place], [place] [phone] * (ABNORMAL) Comprehensive Metabolic Panel (01/25/2025 8:37 AM EDT) Sodium 142 135 - 145 mmol/L [facility] Potassium 4.0 3.3 - 5.1 mmol/L [facility] Chloride 105 96 - 108 mmol/L [facility] Carbon Dioxide 28 22 - 29 mmol/L [facility] Anion Gap 13 12 - 20 [facility] Urea Nitrogen (BUN) 17(H) 9 - 16 mg/dL [facility] Creatinine, Serum 0.80 0.5 - 1.4 mg/dL [facility] Estimated Glomerular Filt Rate >60 [facility] Comment:Chronic Kidney Disea se: Estimated GFR < 60 mL/min/1.55s7Ixniqw Kidney Disease: Estimated GFR < 15 mL/min/1.73m2 Glucose 101 60 - 115 mg/dL [facility] Calcium 9.1 8.4 - 10.2 mg/dL [facility] Bilirubin, Total 0.7 0.0 - 1.0 mg/dL [facility] Aspartate Amino Transferase 36(H) 5 - 31 U/L [facility] Alanine Aminotransferase 36(H) 0 - 31 U/L [facility] Total Protein 7.1 6.5 - 8.0 g/dL [facility] Albumin Level 4.3 3.5 - 5.0 g/dL [facility] Alkaline Phosphatase 95 39 - 117 U/L [facility] Blood Venous blood specimen / Unknown 01/25/2025 8:37 AM EDT 01/25/2025 11:14 AM EDT Ernie Ro MD LAB BLOOD ORDERABLES Final Result [facility] [address] [place] [address] [phone] * BI Mammogram Screening Tomosynthesis Bilateral (01/05/2025 10:00 AM EDT) Anatomical Region Laterality Modality Breast Bilateral Mammography 01/05/2025 10:0 0 AM EDT Narrative 01/13/2025 2:49 PM EDT ? [facility] ? [address] ?[place] [address] ?[phone] ? Mammography Report ? Signed ? Patient: Julien,Miguelina ?MR#: [id number] ?? 12 ? : 1965 ?Acct:[id number] ? Age/Sex: 59 / F ?ADM Date: 03/27/25 ? Loc: HO.MAMMO ? Attending Dr: Ernie Merritt MD ? Ordering Physician: Ernie Merritt MD ?Resu ?? lts: 1Negative ? Date of Service: 01/05/25 ?Follow Up: 1 Year From Orig ?? inal Mammogram ? Procedure(s): MM tomosynthesis screening BI ?? Accession Number(s): [id number] ? cc: Ernie Merritt MD ? EXAMINATION: [...] DD/ 1000 ? TD/TT: 01/05/25 1015 ? Oil Heaterman: ? Procedure Note Donotuseinterpreter, Image - 01/13/2025 [facility] [address] [place] [address] Dr. [place], [place] [address] Mammography Report Signed Patient: Miguelina Julien#: [id number] 12 : 1965Acct:[id number] Age/Sex: 59 / FADM Date: 01/05/25 Loc: HO.MAMMO Attending Dr: Ernie Merritt MD Ordering Physician: Ernie Merritt MDResu lts: 1Negative Date of Service: 01/05/25Follow Up: 1 Year From Orig inal Mammogram Procedure(s): MM tomosynthesis screening BI Accession Number(s): [id number] cc: Ernie Merritt MD EXAMINATION: MM SCREENING [...] 01/13/25 1447 DD/ 1000 TD/TT: 01/05/25 1015 Oil Heaterman: Ernie Ro MD IMG BI PROCEDURES Fin al Result * Lyme Disease Ab with Reflex to Blot (IgG, IgM) (12/21/2024 10:13 AM EDT) Pathologist [facility] Lyme Antibody Screen <0.90 index [facility] Comment:Index Interpretation ----- < 0.90 Negative [...] when erythemamigrans is apparent.THIS TEST WAS PERFORMED AT:[facility] [place] [phone] ANTONY MD Lyme Blot [facility] 12/21/2024 10:1 3 AM EDT 12/21/2024 11:45 AM EDT Marty Soto MD LAB BLOOD ORDERABLES Final Resul t [facility] [address] [place] [address] [phone] * (ABNORMAL) CBC auto differential (12/21/2024 10:13 AM EDT) [facility] White Blood Count 8.1 4.8 - 10.8 X10*3/uL [facility] Red Blood Count 4.14(L) 4.20 - 5.50 X10*6/uL [facility] Hemoglobin 11.6(L) 12.0 - 16.0 g/dl [facility] Hematocrit 37.3 37.0 - 47.0 % [facility] Mean Corpuscular Volume 90.1 80.0 - 98.0 fL [facility] Mean Corpuscular Hemoglobin 28.0 27.0 - 33.0 pg [facility] Mean Corpuscular HGB Conc 31.1 31.0 - 35.0 g/dl [facility] Red Cell Distribution Width 13.6 11.0 - 16.0 % [facility] Platelet Count 312 160 - 400 X10*3/uL [facility] Mean Platelet Volume 10.2 9.4 - 12.3 fL [facility] Neutrophils Percent Auto 55.2 45 - 73 % [facility] Imm Gran Pct Auto 0.4 0.0 - 0.4 % [facility] Lymphocytes Percent Auto 35.1 20 - 40 % [facility] Monocytes Percent Auto 7.3 2 - 11 % [facility] Eosinophils Percent Auto 1.4 0 - 4 % [facility] Basophils Percent Auto 0.6 0 - 2 % [facility] NRBC Pct Auto 0.0 0.0 - 0.2 /100WBC [facility] Neutrophils Absolute Auto 4.5 2.0 - 8.3 x10*3/uL [facility] Imm Gran Abs Auto 0.03 0.00 - 0.03 X10*3/uL [facility] Lymphocytes Absolute Auto 2.9 1.2 - 4.9 X10*3/uL [facility] Monocytes Absolute Auto 0.6 0.1 - 1.2 X10*3/uL [facility] Eosinophils Absolute Auto 0.1 0.0 - 0.4 X10*3/uL [facility] Basophils Absolute Auto 0.1 0.0 - 0.2 X10*3/uL [facility] NRBC Abs Auto 0.000 0.0 - 0.012 X10*3/uL [facility] Blood Venous blood specimen / Unknown 12/21/2024 10:13 AM EDT 12/21/2024 11:45 AM EDT us Marty Soto MD LAB BLOOD ORDERABLES Final Resul t Performing Organization Address [facility] Co de Phone Number [facility] [address] [place] [phone] * Partial Thromboplastin Time, Activated (APTT) (12/21/2024 10:13 AM EDT) Partial Thromboplastin Time 33.7 26.0 - 36.8 SEC [facility] Comment:For information rega rding the monitoring of direct thrombininhibitors, please refer to Pharmacy. Blood Venous blood specimen / Unknown 12/21/2024 10:13 AM EDT 12/21/2024 11:45 AM EDT us Marty Soto MD LAB BLOOD ORDERABLES Final Resul t Performing Organization Address [facility] de Phone Number [facility] [address] [place] [phone] * Prothrombin Time-INR (12/21/2024 10:13 AM EDT) Prothrombin Time 11.4 10.9 - 12.4 SEC [facility] INTERNATIONAL NORM RATIO 1.0 0.9 - 1.1 [facility] Comment:INTERNATIONAL NORMAL IZED RATIO (INR) REFERENCE [...] ORDERABLES Final Resul t Performing Organization Address [facility] Co de Phone Number [facility] [address] [place] [phone] * Uric acid (12/21/2024 10:13 AM EDT) Uric Acid 4.6 2.4 - 5.7 mg/dL [facility] Blood Venous blood specimen / Unknown 12/21/2024 10:13 AM EDT 12/21/2024 11:45 AM EDT us Marty Soto MD LAB BLOOD ORDERABLES Final Resul t [facility] [address] [place] [address] [phone] * XR Foot 3+ Views Right (12/21/2024 9:42 AM EDT) Anatomical Region Laterality Modality Lower Extremities, Foot Right Radiogra phic Imaging 12/21/2024 9:42 AM EDT Narrative 12/21/2024 10:03 AM EDT ?[facility] ?[address] ?[place] [address] ?XRay Report ? Signed ? Patient: Miguelina Julien ?MR#: [id number] ?? 12 ? : 1965 ?Acct:[id number] ? Age/Sex: 59 / F ?ADM Date: 12/21/24 ? Loc: HO.HHCX ? Attending Dr: Marty Soto MD ? Ordering Physician: MARTY SOTO MD ?? Date of Service: 12/21/24 ?? Procedure(s): XR foot RT min 3V ?? Accession Number(s): [id number] ? cc: MARTY SOTO MD ? EXAMINATION: [...] DD/ 0942 ? TD/TT: 12/21/24 0956 ? Oil Heaterman: ? Procedure Note DonRene martínez - 12/21/2024 [facility] [address] [place] [address] XRay Report Signed Patient: Miguelina JulienMR#: [id number] 12 : 1965Acct:[id number] Age/Sex: 59 / FADM Date: 12/21/24 Loc: HO.HHCX Attending Dr: Marty Soto MD Ordering Physician: MARTY SOTO MD Date of Service: 12/21/24 Procedure(s): XR foot RT min 3V Accession Number(s): [id number] cc: MARTY SOTO MD EXAMINATION: XR FOOT [...] Williamson MD in OV> 12/21/24 1000 DD/ TD/TT: 12/21/24955 Oil Heaterman: Marty Soto MD IMG XR PROCEDURES Final Result * FL Guidance in OR (12/09/2024 9:08 AM EST) Anatomical Region Laterality Modality X-Ray Angiograph y 12/09/2024 9:08 AM EST Narrative 12/09/2024 9:48 AM EST ? [facility] ?[address] ?[place] [address] ? Fluoroscopy Report ? Signed ? Patient: Julien,[place] ?MR#: [id number] ?? 12 ? : 1965 ?Acct:[id number] ? Age/Sex: 59 / F ?ADM Date: 12/09/24 ? Loc: HO.SSS ? Attending Dr: Aldo Casas MD ? Ordering Physician: Aldo Casas MD ?? Date of Service: 12/09/24 ?? Procedure(s): FL guidance in OR ?? Accession Number(s): [id number] ? cc: Ofelia Melgar MD; Aldo Casas [...] DD/ 0908 ? TD/TT: 12/09/24 0930 ? Oil Heaterman: ? Procedure Note Ashtynter, Image - 12/09/[address] [address] Fluoroscopy Report Signed Patient: Miguelina Julien#: [id number] 12 : 1965Acct:[id number] Age/Sex: 59 / FADM Date: 12/09/24 Loc: HO.SSS Attending Dr: Aldo Casas MD Ordering Physician: Aldo Casas MD Date of Service: 12/09/24 Procedure(s): FL guidance in OR Accession Number(s): [id number] cc: Ofelia Melgar MD; Aldo Casas MD [...] Rodrick Williamson MD 12/09/2024 09:45 AM EST RP Dictated By: Rodrick Williamson MD Signed By: <Electronically signed by Rodrick Williamson MD in OV> 12/09/24944 DD/ 7 TD/TT: 12/09/24929 Oil Heaterman: [facility] External Provider IMG IR PROCEDURES Final Result * (ABNORMAL) Colonoscopy (03/18/2024) Colonoscopy Abnormal( A) Normal Comment:Tubular Adenoma 03/18/2024 Historical Provider HEALTH MAINTENANCE Final Result * Hepatitis C Antibody with Reflex to HCV, RNA, Quantitative, Real-Time PCR (11/07/2022 8:24 AM EST) Hepatitis C Antibody NON-REACT TAMARA NON-REACT TAMARA [facility] [employer] [place] Index 0.12 <1.00 [facility] [employer] Comment: HCV antibody was non-reactive. There is no laboratory evidence of HCV infection. In most cases, no further action is required. However, if recent HCV exposure is suspected, a test for HCV RNA (test code 80511) is suggested. For additional information please refer to http://education.Codelearn/faq/WBW54m7 (This link is being provided for informational/ educational purposes only.) Blood Venous blood specimen / Unknown 11/07/2022 8:24 AM EST 11/07/2022 8:25 AM EST Narrative [facility] - 11/08/2022 12:51 AM EST FASTING:YES FASTING: YES us Ernie Ro MD LAB BLOOD ORDERABLES Final Result [address], [place] [address] [facility] [address] [facility], ([address]) [place] [address] * HPV E6/E7 RFLX SERGIO 16 18/45 (12/19/2020 3:40 PM EST) HPV 16 RNA [facility] HPV 18/45 RNA [facility] HPV E6 E7 ADD [facility] HPV mRNA E6/E7 rflx Not Detected Not Detected [facility] Comment: Methodology: Horticulture Supervisor-Mediated Amplification This assay detects E6/E7 viral messenger RNA (mRNA) from 14 high-risk HPV types (16,18,31,33,35,39,45,51,52,56,58,59,66,68). The analytical performance characteristics of this assay have been determined by [facility]. The modifications have not been cleared or approved by the FDA. This assay has been validated pursuant to the CLIA regulations and is used for clinical purposes. For additional information, please refer to http://education.Fotofeedback.DailyLook/faq/HIJ404x3 (This link if provided for information/ educational purposes only.) THIS TEST WAS PERFORMED AT: [facility] [address] [place] [address],[address] [place], [place] ??[address] FLACA ANTONY MD 12/19/2020 3:40 PM EST us Historical Provider HISTORICAL/NON ORDERABLE LABS Final Result [facility] [address] from Last 3 Months or Most Recently Relevant to Health Maintenance Insurance [facility] C3 Care Teams Car Loader Relationship Specialty Start Date End Date Ernie Noriega MD [address] [place] [address] PCP - General Internal Medicine 08/25/19
--- OUTSIDE RECORDS SUMMARY | 2025-02-23 09:33 | XMS_ITS | Encounter Summary ---
Author Organization [employer] Address [address] [place] [address] 7t [place] [address] Care Team Providers Care Natural Sciences Manager Name Role Phone Ernie Noriega MD Primary Care Provide r Encounter Details Date Type Department Care Team (Late Contact Info) Description 12/09/2022 Orders Only [facility] [address] [place] [address] [phone] Suha Alexander RN Social History Tobacco Use Types Packs/Day [...] 2:15 PM EDT Office Visit [facility] 230 [place], [place] [phone] Ernie Noriega MD [address] [place], [place] [phone] documented as of this encounter Procedures Procedure Name Priority Date/Time Associated Diagnosis Comments BI MAMMOGRAM SCREENING TOMOSYNTHESIS BILATERAL Routine 12/23/2022 11:35 AM EDT documented in this encounter Results * BI Mammogram Screening Tomosynthesis Bilateral (12/23/2022 11:35 AM EDT) Anatomical Region Laterality Modality Breast Bilateral Mammography 12/23/2022 11:3 5 AM EDT Narrative 12/24/2022 5:15 PM EDT ? [facility] ? [address] ?[place] [address] ? Mammography Report ? Signed ? Patient: Juan Pablo TaylorMiguelina ?MR#: ?? [id number] ? : 1965 ?Acct:[id number] ? Age/Sex: 57 / F ?ADM Date: 12/23/22 ? Loc: HO.MAMMO ? Attending Dr: Ernie Merritt MD ? Ordering Physician: Ernie Merritt MD ?Resu ?? lts: 1Negative ? Date of Service: 12/23/22 ?Follow Up: 1 Year From Orig ?? inal Mammogram ? Procedure(s): MM tomosynthesis screening BI ?? Accession Number(s): [id number] ? cc: Ernie Merritt MD ? EXAMINATION: [...] 1712 ? DD/ 1135 ? TD/TT: ? Cv Rn: SK ? Procedure Note Tiesha, Rene - 12/24/2022 [facility] [address] [place] [address] Dr. [place], MARIA T [address] Mammography Report Signed [facility] [id number] : 1965Acct:[id number] Age/Sex: 57 / FADM Date: 12/23/22 Loc: DANIELE Attending Dr: Ernie Merritt MD Ordering Physician: Ernie Merritt MDResu lts: 1Negative Date of Service: 03/14/23Follow Up: 1 Year From Orig inal Mammogram Procedure(s): MM tomosynthesis screening BI Accession Number(s): [id number] cc: Ernie Merritt MD EXAMINATION: MM SCREENING [...] in OV> 12/24/22 1712 DD/ 1135 TD/TT: Cv Rn: SM[facility] External Provider IMG BI PROCEDURES Edited Result - Final documented in this encounter Visit Diagnoses Not on filedocumented in this encounter Additional Health Concerns Assessment Noted Time PHQ-9 Depression Total Score: 0 12/02/19 23 2:38 PM EST documented as of this encounter Care Teams Natural Sciences Manager Relationship Specialty Start Date End Date Ernie Noriega MD [address] [place] [address] PCP - General Internal Medicine 08/25/19 documented as of this encounter
--- OUTSIDE RECORDS SUMMARY | 2025-02-23 09:33 | XMS_ITS ---
Author Organization [facility] Address [address] [place] [address] Care Team Providers Care Cigarette Packing Machine Operator Name Role Phone [place] Ro MD, [facility] Primary Care Provide r Unavailable Rodrick Millan Unavailable [phone] REASON FOR VISIT screening Problems Problem Type SNOMED Code ICD Code Onset Dates Problem Status W/U Status Risk Notes Problem Diverticular disease of colon (881557472) Diverticulosis of large intestine without perforation or abscess without bleeding (K57.30) Active confirmed Encounters Encounter Location Date Provider Diagnosis [facility] Outpatient [address] [place], [place] [phone] 03/18/2024 Rodrick Millan Encounter for scre ening [...] * ISHMAEL HINOJOSADOB: 3 (59 yo F)Acc No.[id number]:03/18/2024 COLON WITH MAC Patient:?ISHMAEL HINOJOSA Provider:?Rodrick Millan MD :1965???Age:58 Y???Sex:Female D ate:03/18/2024 Address:[address] [place], [place] [address] [facility] Pcp:Ernie bonilla MD Subjective: * Chief Complaints: * ???1. Screening. * Medical History:? Objective: * Vitals:? Assessment: * Assessment: 1.?Encounter for screening c olonoscopy - Z12.11 (Primary)???2.?Colon polyps - K63.5???3.?Diverticulosis of large intestine without perforation or abscess without bleeding - K57.30???4.?Internal hemorrhoids - K64.8??? Plan: * Treatment: * Procedure Codes:?51765 COLON OSCOPY AND BIOPSY * * The named appointment provid er may or may not be the originator of this progress note, and it is not deemed complete until electronically signed by the appointment provider. Sign off status: Pending * Provider:?Rodrick Millan MD Date:? 024 Generated for Landon westbrook/Jean-Paul/eTransmitting on:?02/23/2025 09:33 AM EDT
--- OUTSIDE RECORDS SUMMARY | 2025-02-23 09:33 | XMS_ITS | Encounter Summary ---
Author Organization [employer] Address [address] [place] [address] 7 [place] [address] Care Team Providers Care Corporation Lawyer Name Role Phone Ernie Noriega MD Primary Care Provide r Reason for Visit * Reason Onset Date Comments Medication Question 10/03/2022 returning call 10/03/2022 Encounter Details Date Type Department Care Team ([facility] st Contact Info) Description 10/03/2022 Telephone [facility] [address] [place] [address] Ernie Noriega MD [address] [place] [address] Medication Question; returning call Social History Tobacco [...] pt returning call Please contact pt at [phone] * Telephone Encounter - Peg Scott RN - 10/10/2022 11:17 AM EST T/C placed to pt x2AM re below message. No answer, left v/m. Will retask to [facility] for third attempt. * Telephone Encounter - Peg Scott RN - 10/08/2022 3:32 PM EST Incoming T/C from Sylvia CAMARILLO from [facility]. She states spoke with COMPRESSOR ASSEMBLER who saw pt 09/24. It is not in the OV note (which is located in Epic under Media tab) but that pt reported pain during appt and COMPRESSOR ASSEMBLER advised pt speak to her PCP and [...] next month with PCP. Will send to [facility] to attempt second call. [place]so sending to PCP as FYI. * Telephone Encounter - Peg Scott RN - 10/08/2022 10:34 AM EST Reviewed most recent note from [facility] note. No [...] calling to inform was told by her [facility] Physicians DR to request [...] 2:15 PM EDT Office Visit [facility] [address] [facility] [place] [address] Ernie Noriega MD [address] [place] [address] documented as of this encounter Visit Diagnoses Not on filedocumented in this encounter Care Teams Corporation Lawyer Relationship Specialty Start Date End Date Ernie Noriega MD [address] [facility] [place] [id number] PCP - General Internal Medicine 08/25/19 documented as of this encounter
--- OUTSIDE RECORDS SUMMARY | 2025-02-23 09:33 | XMS_ITS | Patient Health Record ---
Author Organization [facility] Address [address] [place] [address] Care Team Providers Care Security Officers And Guards Name Role Phone [place] Ro MD, Ernie Primary Care Provide r Rodrick Juarez Unavailable [phone] Allergies No Known Allergies Results Component Value Reference Range Notes Pathology (Not yet reviewed by provider) Interpretation: Performing Lab:[facility], [address] [place] [phone] Notes/Report: Name: Ishmael Julien Age/Sex: 58/F : 1965 Unit#: [id number] Attend Dr: Rodrick Millan Re03/18/24 Status : [facility] Location: [facility] Disch: SPEC : [id number] REC STATUS: RUBY GILLESPIE NUM: [id number] SANDEEP: 03/18/[address] [facility] [address]: Rodrick Millan ENTERED: 03/18/24-06 22 [...] A. CEDS Copies To: Ernie Merritt MD [address] [place] [address] [phone] Rodrick Millan [address] [place] [address] [address] [place] [address] Signed (si gnature on file) Donna Melissa 03/22/24 1450 END OF REPORT Reason For [...] as needed Inhalation every 4 hrs Active Hhsskqynyb-Gloxdnt-Fdjtdvjv 50-325-40 MG 1 capsule as needed Orally [...] Problem Status W/U Status Risk Notes Problem 672364881 Colon cancer screening (Z12.11) Active confirmed Problem Diverticular disease of colon (725450273) Diverticulosis of large intestine without perforation or abscess without bleeding (K57.30) Active confirmed Problem 857509081368292 Preprocedural examination (Z01.818) Active confirmed Problem 180156450 Encounter for long-term (current) use of NSAIDs (Z79.1) Active confirmed Encounters Encounter Location Date Provider Diagnosis [facility] Outpatient [address] [place], [place] [phone] 03/18/2024 Rodrick Millan Encounter for screen ing colonoscopy Z12.11 ; Colon polyps K63.5 ; Diverticulosis of large intestine without perforation or abscess without bleeding K57.30 and Internal hemorrhoids K64.8 [facility] [address] [place] [address] 03/17/2024 Rodrick Millan Assessments Encounter Date Diagnosis [...] Start Date Coverage End Date [place] [address] [place] [address] [id number] MARELY JULIENKA Self - patient is the insured Medical [...]
--- OUTSIDE RECORDS SUMMARY | 2025-02-23 09:33 | XMS_ITS | Encounter Summary ---
Author Organization [employer] Address [address] [place] [address] 7t [place] [address] Care Team Providers Care Door Framer Name Role Phone Ernie Noriega MD Primary [...] 2:15 PM EDT Office Visit [facility] [address] [place] [address] Ernie Noriega MD [address] [place] [address] documented as of this encounter Visit Diagnoses Not on filedocumented in this encounter Care Teams Door Framer Relationship Specialty Start Date End Date Ernie Noriega MD [address] [place] [address] PCP - General Internal Medicine 08/25/19 documented as of this encounter
--- OUTSIDE RECORDS SUMMARY | 2025-02-23 09:33 | XMS_ITS | Encounter Summary ---
Author Organization [employer] Address [address] [place] [address] 7t [place] [address] Care Team Providers Care Breakfast Attendant Name Role Phone Ernie Noriega MD Primary Care Provide r Reason for Visit * Reason Comments Med Refill Encounter Details Date Type Department Care Team ([facility] st Contact Info) Description 10/11/[address] [facility] 230 [place], [place] [phone] Ernie Noriega MD 230 [place], [place] [phone] Social History Tobacco Use Types Packs/Day Years [...] 04/13/2025 2:15 PM EDT Office Visit [facility] [address] [place] [address] Ernie Noriega MD [address] [place] [address] documented as of this encounter Visit Diagnoses Not on filedocumented in this encounter Additional Health Concerns Assessment Noted Time PHQ-9 Depression Total Score: 0 12/02/19 23 2:38 PM EST documented as of this encounter Care Teams Breakfast Attendant Relationship Specialty Start Date End Date Ernie Noriega MD [address] [place] [address] PCP - General Internal Medicine 08/25/19 documented as of this encounter
--- OUTSIDE RECORDS SUMMARY | 2025-02-23 09:33 | XMS_ITS | Encounter Summary ---
Author Organization [employer] Address [address] 7t [place] [address] Care Team Providers Care Turner Machine Operator Name Role Phone Ernie Noriega MD Primary Care Provide r Reason for Visit * Reason Onset Date Comments Med Refill Referral 12/10/2022 Patient walked i n requesting for referral to a neurologist. It is difficult for her to walk and do her morton activities. Pt has had [facility] go to her house for therapy, but it has not made any improvements. Encounter Details Date Type Department Care Team (Late st Contact Info) Description 12/10/2022 Refill [facility] 230 [place], [place] [phone] Ernie Noriega MD 230 [place], [place] [phone] Pain Social History Tobacco Use Types Packs/Day [...] 04/13/2025 2:15 PM EDT Office Visit [facility] [address] [place], [place] [phone] Ernie Noriega MD 230 [place] [address] documented as of this encounter Visit Diagnoses Diagnosis Pain Generalized pain documented in this encounter Additional Health Concerns Assessment Noted Time PHQ-9 Depression Total Score: 0 12/02/19 23 2:38 PM EST documented as of this encounter Care Teams Turner Machine Operator Relationship Specialty Start Date End Date Ernie Noriega MD 230 [place], [place] [phone] PCP - General Internal Medicine 08/25/19 documented as of this encounter
--- OUTSIDE RECORDS SUMMARY | 2025-02-23 09:33 | XMS_ITS | Encounter Summary ---
Author Organization [employer] Address [address] [facility] 7t [place] [address] Care Team Providers Care Radioactive Waste Disposal Dispatcher Name Role Phone Ernie Noriega MD Primary Care Provide r Reason for Visit * Reason Comments Med Refill Encounter Details Date Type Department Care Team ([facility] st Contact Info) Description 11/20/2023 Refill [facility] 230 [place], [place] [phone] Ernie Noriega MD 230 [place], [place] [phone] Pain Social History Tobacco Use Types Packs/Day [...] Description 04/13/2025 2:15 PM EDT Office Visit [facility] [address] [place] [address] Ernie Noriega MD [address] [place] [address] documented as of this encounter Visit Diagnoses Diagnosis Pain Generalized pain documented in this encounter Additional Health Concerns Assessment Noted Time PHQ-9 Depression Total Score: 0 12/02/19 23 2:38 PM EST documented as of this encounter Care Teams Radioactive Waste Disposal Dispatcher Relationship Specialty Start Date End Date Ernie Noriega MD [address] [place] [address] PCP - General Internal Medicine 08/25/19 documented as of this encounter
--- OUTSIDE RECORDS SUMMARY | 2025-02-23 09:33 | XMS_ITS ---
Author Organization [facility] Address [address] [place] [address] Care Team Providers Care Clay Miller Name Role Phone [place] Ro MD, Ernie Primary Care Provide r Rodrick Juarez [phone] REASON FOR VISIT screening Encounters Encounter Location Date Provider Diagnosis [facility] Outpatient [address] [place], [place] [phone] 02/03/2024 Rodrick Millan Plan Of Treatment No Information Progress Notes * ISHMAEL HINOJOSADOB: 3 (59 yo F)Acc No.[id number]:02/03/2024 COLON WITH MAC Patient:?ISHMAEL HINOJOSA Provider:?Rodrick Millan MD :1965???Age:58 Y???Sex:Female D ate:02/03/2024 Address: [address] [place] [facility] Pcp:Ernie bonilla MD Subjective: * Chief Complaints: [...] MD Date:? 024 Generated for Printi ng/Faanjelg/eTransmitting on:?02/23/2025 09:33 AM EDT
--- OUTSIDE RECORDS SUMMARY | 2025-02-23 09:33 | XMS_ITS | Encounter Summary ---
Author Organization [employer] Address [address] [facility] 7t [place] [address] Care Team Providers Care Principal Planner Name Role Phone Ernie Noriega MD Primary Care Provide r Reason for Visit * Reason Onset Date Comments Med Refill 08/17/2023 Encounter Details Date Type Department Care Team ([facility] st Contact Info) Description 08/17/2023 Telephone [facility] MEDICINE 230 [place], [place] [phone] Ernie Noriega MD 230 [place], [place] [phone] Med Refill Social History Tobacco Use Types [...] MG tablet Please sent to [facility]/pharmacy #[id number] [place], [place] - [address] [place] [address] documented in this encounter Plan of Treatment Upcoming Encounters Date Type Department Care Team (Late st Contact Info) Description 04/13/2025 2:15 PM EDT Office Visit [facility] [address] [place], [place] [phone] Ernie Noriega MD 230 [place] [address] documented as of this encounter Visit Diagnoses Not on filedocumented in this encounter Additional Health Concerns Assessment Noted Time PHQ-9 Depression Total Score: 0 12/02/19 23 2:38 PM EST documented as of this encounter Care Teams Principal Planner Relationship Specialty Start Date End Date Ernie Noriega MD 230 [place], [place] [phone] PCP - General Internal Medicine 08/25/19 documented as of this encounter
--- OUTSIDE RECORDS SUMMARY | 2025-02-23 09:33 | XMS_ITS | Encounter Summary ---
Author Organization [employer] Address [address] [facility] 7 [place] [address] Care Team Providers Care Scholastic Aptitude Test Grader Name Role Phone Ernie Noriega MD Primary Care Provide r Reason for Visit * Reason Onset Date Comments Med Refill 11/03/2023 Encounter Details Date Type Department Care Team ([facility] st Contact Info) Description 11/03/2023 Refill [facility] 230 [place] [address] Ernie Noriega MD 230 [place], [place] [phone] Seasonal allergies Social History Tobacco Use Types [...] [facility] 230 [place] [address] Ernie Noriega MD [address] [place] [address] documented as of this encounter Visit Diagnoses Diagnosis Seasonal allergies Allergic rhinitis, cause unspecified documented in this encounter Additional Health Concerns Assessment Noted Time PHQ-9 Depression Total Score: 0 12/02/19 23 2:38 PM EST documented as of this encounter Care Teams Scholastic Aptitude Test Grader Relationship Specialty Start Date End Date Ernie Noriega MD [address] [place] [address] PCP - General Internal Medicine 08/25/19 documented as of this encounter
--- OUTSIDE RECORDS SUMMARY | 2025-02-23 09:33 | XMS_ITS | Encounter Summary ---
Author Organization [employer] Address [address] [facility] 7t [place] [address] Care Team Providers Care Building Mechanic Name Role Phone Ernie Noriega MD Primary Care Provide r Reason for Visit * Reason Comments Med Refill Encounter Details Date Type Department Care Team ([facility] st Contact Info) Description 08/26/2023 Refill [facility] 230 [place], [place] [phone] Perlita Woody MD [address] [place] [address] Seasonal allergies Social History Tobacco Use Types [...] Description 04/13/2025 2:15 PM EDT Office Visit [facility] MED[facility] 230 [place], [place] [phone] Ernie Noriega MD [address] [place] [address] documented as of this encounter Visit Diagnoses Diagnosis Seasonal allergies Allergic rhinitis, cause unspecified documented in this encounter Additional Health Concerns Assessment Noted Time PHQ-9 Depression Total Score: 0 12/02/19 23 2:38 PM EST documented as of this encounter Care Teams Building Mechanic Relationship Specialty Start Date End Date Ernie Noriega MD [address] [place] [address] PCP - General Internal Medicine 08/25/19 documented as of this encounter
--- OUTSIDE RECORDS SUMMARY | 2025-02-23 09:33 | XMS_ITS | Encounter Summary ---
Author Organization [employer] Address [address] [facility] 7t [place] [address] Care Team Providers Care Coordinator Cardiopulmonary Services Name Role Phone Ernie Noriega MD Primary Care Provide r Reason for Visit * Reason Onset Date Comments Med Refill 11/04/2023 Encounter Details Date Type Department Care Team ([facility] st Contact Info) Description 11/04/2023 Refill [facility] MEDICINE 230 [place] [address] Ernie Noriega MD 230 [place] [address] Chronic midline low back pain without sciatica; [...] Visit [facility] MEDICINE 230 [place] [address] Ernie Noriega MD 230 [place] [address] documented as of this encounter Visit Diagnoses Diagnosis Chronic midline low back pain without sciatica Cervical radiculopathy Brachial neuritis or radiculitis nos Seasonal allergies Allergic rhinitis, cause unspecified documented in this encounter Additional Health Concerns Assessment Noted Time PHQ-9 Depression Total Score: 0 12/02/19 23 2:38 PM EST documented as of this encounter Care Teams Coordinator Cardiopulmonary Services Relationship Specialty Start Date End Date Ernie Noriega MD [address] [place] [address] PCP - General Internal Medicine 08/25/19 documented as of this encounter
--- OUTSIDE RECORDS SUMMARY | 2025-02-23 09:33 | XMS_ITS | Encounter Summary ---
Author Organization [employer] Address [address] [facility] 7t [place] [address] Care Team Providers Care Hospice Care Sales Consultant Name Role Phone Ernie Noriega MD Primary Care Provide r Reason for Visit * Reason Comments Med Refill Encounter Details Date Type Department Care Team ([facility] st Contact Info) Description 12/25/2023 Refill [facility] MEDICINE 230 [place], [place] [phone] Ernie Noriega MD 230 [place], [place] [phone] Pain; Primary hypertension; Seasonal allergies Social History [...] Office Visit [facility] MEDICINE [address] [place] [address] Ernie Noriega MD 230 [place] [address] documented as of this encounter Visit Diagnoses Diagnosis Pain Generalized pain Primary hypertension Unspecified essential hypertension Seasonal allergies Allergic rhinitis, cause unspecified documented in this encounter Additional Health Concerns Assessment Noted Time PHQ-9 Depression Total Score: 0 12/02/19 23 2:38 PM EST documented as of this encounter Care Teams Hospice Care Sales Consultant Relationship Specialty Start Date End Date Ernie Noriega MD 230 [place] [address] PCP - General Internal Medicine 08/25/19 documented as of this encounter
--- OUTSIDE RECORDS SUMMARY | 2025-02-23 09:33 | XMS_ITS | Encounter Summary ---
Author Organization [employer] Address [address] [facility] 7t [place] [address] Care Team Providers Care Residential Carpenter Name Role Phone Ernie Noriega MD Primary Care Provide r Reason for Visit * Reason Onset Date Comments Med Refill 11/17/2024 Encounter Details Date Type Department Care Team ([facility] st Contact Info) Description 11/17/2024 Refill [facility] MEDICINE 230 [place] [address] Ernie Noriega MD 230 [place] [address] Seasonal allergies Social History Tobacco Use Types [...] Visit [facility]IC[facility] [address] [place] [address] Ernie Noriega MD 230 [place] [address] documented as of this encounter Visit Diagnoses Diagnosis Seasonal allergies Allergic rhinitis, cause unspecified documented in this encounter Additional Health Concerns Assessment Noted Time PHQ-9 Depression Total Score: 2 01/21/20 24 1:25 PM EDT documented as of this encounter Care Teams Residential Carpenter Relationship Specialty Start Date End Date Ernie Noriega MD 230 [place] [address] PCP - General Internal Medicine 08/25/19 documented as of this encounter
--- OUTSIDE RECORDS SUMMARY | 2025-02-23 09:33 | XMS_ITS | Encounter Summary ---
Author Organization [employer] Address [address] [facility] 7t [place] [address] Care Team Providers Care Manager Business Intelligence Name Role Phone Ernie Noriega MD Primary Care Provide r Reason for Visit * Reason Onset Date Comments Med Refill 09/18/2023 Encounter Details Date Type Department Care Team ([facility] st Contact Info) Description 09/18/2023 Refill [facility] [address] [place] [address] Ernie Noriega MD [address] [place] [address] Chronic midline low back pain without sciatica; [...] PM EDT Office Visit [facility] [address] [place] [address] Ernie Noriega MD [address] [place] [address] documented as of this encounter Visit Diagnoses Diagnosis Chronic midline low back pain without sciatica Cervical radiculopathy Brachial neuritis or radiculitis nos documented in this encounter Additional Health Concerns Assessment Noted Time PHQ-9 Depression Total Score: 0 12/02/19 23 2:38 PM EST documented as of this encounter Care Teams Manager Business Intelligence Relationship Specialty Start Date End Date Ernie Noriega MD [address] [place] [address] PCP - General Internal Medicine 08/25/19 documented as of this encounter
--- OUTSIDE RECORDS SUMMARY | 2025-02-23 09:33 | XMS_ITS | Encounter Summary ---
Author Organization [employer] Address [address] [place] [address] 7 [place] [address] Care Team Providers Care Developer Programmer Analyst Name Role Phone Ernie Noriega MD Primary Care Provide r Encounter Details Date Type Department Care Team (Late st Contact Info) Description 10/03/2022 Orders Only [facility] [address] [place] [address] Suha Alexander RN Social History Tobacco Use [...] Description 04/13/2025 2:15 PM EDT Office Visit [facility] [address] [place] [address] Ernie Noriega MD [address] [place] [address] documented as of this encounter Visit Diagnoses Not on filedocumented in this encounter Care Teams Developer Programmer Analyst Relationship Specialty Start Date End Date Ernie Noriega MD [address] [place] [address] PCP - General Internal Medicine 08/25/19 documented as of this encounter
--- OUTSIDE RECORDS SUMMARY | 2025-02-23 09:33 | XMS_ITS | Encounter Summary ---
Author Organization [employer] Address [address] [facility] 7t [place] [address] Care Team Providers Care Ranger Aide Name Role Phone Ernie Noriega MD Primary Care Provide r Reason for Visit * Reason Comments Med Refill Encounter Details Date Type Department Care Team ([facility] st Contact Info) Description 08/10/2023 Refill [facility] [address] [place] [address] Perlita Woody MD [address] [place] [address] Seasonal allergies; Primary hypertension Social History Tobacco [...] [facility] [address] [place] [address] Ernie Noriega MD [address] [place] [address] documented as of this encounter Visit Diagnoses Diagnosis Seasonal allergies Allergic rhinitis, cause unspecified Primary hypertension Unspecified essential hypertension documented in this encounter Additional Health Concerns Assessment Noted Time PHQ-9 Depression Total Score: 0 12/02/19 23 2:38 PM EST documented as of this encounter Care Teams Ranger Aide Relationship Specialty Start Date End Date Ernie Noriega MD [address] [place] [address] PCP - General Internal Medicine 08/25/19 documented as of this encounter
--- OUTSIDE RECORDS SUMMARY | 2025-02-23 09:33 | XMS_ITS | Encounter Summary ---
Author Organization [employer] Address [address] [place] [address] 7t [place] [address] Care Team Providers Care Reservations Sales Supervisor Name Role Phone Ernie Noriega MD Primary Care Provide r Reason for Visit * Reason Onset Date Comments Med Refill 10/13/2024 Encounter Details Date Type Department Care Team ([facility] st Contact Info) Description 10/13/2024 Refill [facility] [address] [place] [address] Ernie Noriega MD [address] [place] [address] Chronic midline low back pain without sciatica [...] Description 04/13/2025 2:15 PM EDT Office Visit [facility] [address] [place] [address] Ernie Noriega MD [address] [place] [address] documented as of this encounter Visit Diagnoses Diagnosis Chronic midline low back pain without sciatica documented in this encounter Additional Health Concerns Assessment Noted Time PHQ-9 Depression Total Score: 2 01/21/20 24 1:25 PM EDT documented as of this encounter Care Teams Reservations Sales Supervisor Relationship Specialty Start Date End Date Ernie Noriega MD [address] [place] [address] PCP - General Internal Medicine 08/25/19 documented as of this encounter
--- OUTSIDE RECORDS SUMMARY | 2025-02-23 09:33 | XMS_ITS | Encounter Summary ---
Author Organization [employer] Address [address] [facility] 7t [place] [address] Care Team Providers Care Procedures Nurse Name Role Phone Ernie Noriega MD Primary Care Provide r Reason for Visit * Reason Comments Med Refill Encounter Details Date Type Department Care Team ([facility] st Contact Info) Description 08/28/2023 Refill [facility] [address] [place], [place] [phone] Perlita Woody MD [address] [place] [address] Primary hypertension Social History Tobacco Use Types [...] Office Visit [facility] [address] [place] [address] Ernie Noriega MD [address] [place] [address] documented as of this encounter Visit Diagnoses Diagnosis Primary hypertension Unspecified essential hypertension documented in this encounter Additional Health Concerns Assessment Noted Time PHQ-9 Depression Total Score: 0 12/02/19 23 2:38 PM EST documented as of this encounter Care Teams Procedures Nurse Relationship Specialty Start Date End Date Ernie Noriega MD [address] [place] [address] PCP - General Internal Medicine 08/25/19 documented as of this encounter
--- OUTSIDE RECORDS SUMMARY | 2025-02-23 09:33 | XMS_ITS | Encounter Summary ---
Author Organization [employer] Address [address] [facility] 7t [place] [address] Care Team Providers Care Press Washer Name Role Phone Ernie Noriega MD Primary Care Provide r Reason for Visit * Reason Onset Date Comments Med Refill 09/18/2023 Encounter Details Date Type Department Care Team ([facility] st Contact Info) Description 09/18/2023 Telephone [facility] [address] [place], [place] [phone] Ernie Noriega MD [address] [place], [place] [phone] Med Refill Social History Tobacco Use Types [...] (Ultram) 50 MG tablet Please sent to [facility]/pharmacy #[id number] [place], [place] - [address] [place] [address] documented in this encounter Plan of Treatment Upcoming Encounters Date Type Department Care Team (Late st Contact Info) Description 04/13/2025 2:15 PM EDT Office Visit [facility] [address] [place], [place] [phone] Ernie Noriega MD [address] [place] [address] documented as of this encounter Visit Diagnoses Not on filedocumented in this encounter Additional Health Concerns Assessment Noted Time PHQ-9 Depression Total Score: 0 12/02/19 23 2:38 PM EST documented as of this encounter Care Teams Press Washer Relationship Specialty Start Date End Date Ernie Noriega MD [address] [place], [place] [phone] PCP - General Internal Medicine 08/25/19 documented as of this encounter
--- OUTSIDE RECORDS SUMMARY | 2025-02-23 09:34 | XMS_ITS | Encounter Summary ---
Author Organization [facility] Address [address] [place] [address] Care Team Providers Care Bit Setter Name Role Phone Ernie Merritt Primary Care Provider + Reason for Visit * Reason Onset Date Comments PAC General Info 02/13/2025 Encounter Details Date Type Department Care Team (Late st Contact Info) Description 02/13/2025 Telephone [facility] [address] [place] [address] Christopher Peres MD [address] [place] [address] PAC General Info Social History Tobacco Use Types Packs/Day Years [...] * Telephone Encounter - Rubin Navas - 02/20/2025 9:53 AM EDT Left message for letting him know that the order has been refaxed to the number he provided. * Telephone Encounter - Agnieszka Peoples - 02/20/2025 9:28 AM EDT Pt's called, Explained [facility] have not received the order for a ct scan. Said clinic told him it has been already been faxed. He called hospital this morning and they said they have not received it yet. Patient wants to confirm you have the correct fax number. The correct fax number is [phone] ([facility]). He is requesting a call back for confirmation. * Telephone Encounter - Jeannie Mijares - 02/20/2025 9:17 AM EDT Pt is calling back and states the [facility] still did not receive the referrals. Please contact pt to confirm fax number. Pt can be reached at [phone] * Telephone Encounter - Rubin Navas - 02/13/2025 2:43 PM EDT Left voicemail for patient to let her know what we have faxed the order to [facility] for her CT scans, she should call back once scheduled. documented in this encounter Plan of Treatment Upcoming Encounters Date Type Department Care Team (Late st Contact Info) Description 03/14/2025 3:00 PM EDT Follow-Up [facility] [address] [place] [address] Christopher Peres MD [address] [place] [address] documented as of this encounter Visit Diagnoses Not on filedocumented in this encounter Care Teams Bit Setter Relationship Specialty Start Date End Date Ernie Merritt [address] [place] [address] PCP - General Internal Medicine 11/29/24 documented as of this encounter
--- OUTSIDE RECORDS SUMMARY | 2025-02-23 09:34 | XMS_ITS | Encounter Summary ---
Author Organization [employer] Address [address] [facility] 7t [place] [address] Care Team Providers Care Instant Potato Processing Supervisor Name Role Phone Ernie Noriega MD Primary Care Provide r Reason for Visit * Reason Onset Date Comments Med Refill 09/28/2024 Encounter Details Date Type Department Care Team ([facility] st Contact Info) Description 09/28/2024 Refill [facility] [address] [place] [address] Ernie Noriega MD [address] [place] [address] Chronic midline low back pain without sciatica; [...] 04/13/2025 2:15 PM EDT Office Visit [facility] [address] [place] [address] Ernie Noriega MD [address] [place] [address] documented as of this encounter Visit Diagnoses Diagnosis Chronic midline low back pain without sciatica Cervical radiculopathy Brachial neuritis or radiculitis nos documented in this encounter Additional Health Concerns Assessment Noted Time PHQ-9 Depression Total Score: 2 01/21/20 24 1:25 PM EDT documented as of this encounter Care Teams Instant Potato Processing Supervisor Relationship Specialty Start Date End Date Ernie Noriega MD [address] [place] [address] PCP - General Internal Medicine 08/25/19 documented as of this encounter
--- OUTSIDE RECORDS SUMMARY | 2025-02-23 09:34 | XMS_ITS | Encounter Summary ---
Author Organization [employer] Address [address] [place] [address] 7t [place] [address] Care Team Providers Care Sticker On Name Role Phone Ernie Noriega MD Primary Care Provide r Reason for Visit * Reason Onset Date Comments Med Refill 09/28/2024 Encounter Details Date Type Department Care Team ([facility] st Contact Info) Description 09/28/2024 Refill [facility] [address] [place] [address] Ernie Noriega MD [address] [place] [address] Primary osteoarthritis of knee, unspecified laterality Social [...] enough money to get more: Never True 04/ 08/2024 Transportation Answer Date Recorded In the [...] Description 04/13/2025 2:15 PM EDT Office Visit [facility] [address] [place] [address] Ernie Noriega MD [address] [place] [address] documented as of this encounter Visit Diagnoses Diagnosis Primary osteoarthritis of knee, unspecified laterality documented in this encounter Additional Health Concerns Assessment Noted Time PHQ-9 Depression Total Score: 2 01/21/20 24 1:25 PM EDT documented as of this encounter Care Teams Sticker On Relationship Specialty Start Date End Date Ernie Noriega MD [address] [place] [address] PCP - General Internal Medicine 08/25/19 documented as of this encounter
--- OUTSIDE RECORDS SUMMARY | 2025-02-23 09:34 | XMS_ITS ---
Author Organization [facility] Address [address] [place] [address] Care Team Providers Care Leaded Glass Installer Name Role Phone Milton Ro MD, Ernie Primary Care Provide r Rodrick Juarez [phone] REASON FOR VISIT PROCEDURE TOMORROW Encounters Encounter Location Date Provider Diagnosis [facility] [address] [place] [address] 03/17/2024 Rodrick Millan Plan Of Treatment No Information Progress Notes * ISHMAEL HINOJOSADOB: 3 (58 yo F)Acc No.[id number]:03/17/2024 Patient:?ISHMAEL HINOJOSA :1965???Age:58 Y???Sex:Female Address:[address] [place], [address] * true * Date:? Generated for Printi pietro/Jean-Paul/eTransmitting on:?02/23/2025 09:33 AM EDT
--- OUTSIDE RECORDS SUMMARY | 2025-02-23 09:34 | XMS_ITS | Encounter Summary ---
Author Organization [employer] Address [address] [facility] 7t [place] [address] Care Team Providers Care Psychiatric Aides Teacher Name Role Phone Ernie Noriega MD Primary Care Provide r Reason for Visit * Reason Onset Date Comments Med Refill 09/28/2024 Encounter Details Date Type Department Care Team ([facility] st Contact Info) Description 09/28/2024 Telephone [facility] 230 [place], [place] [phone] Ernie Noriega MD 230 [place], [place] [phone] Med Refill Social History Tobacco Use Types [...] 300 MG capsule To be sent to: [facility]/pharmacy #[address] [place] [address] - [address] [place] [address] documented in this encounter Plan of Treatment Upcoming Encounters Date Type Department Care Team (Late st Contact Info) Description 04/13/2025 2:15 PM EDT Office Visit [facility] [address] [place] [address] Ernie Noriega MD [address] [place] [address] documented as of this encounter Visit Diagnoses Not on filedocumented in this encounter Additional Health Concerns Assessment Noted Time PHQ-9 Depression Total Score: 2 01/21/20 24 1:25 PM EDT documented as of this encounter Care Teams Psychiatric Aides Teacher Relationship Specialty Start Date End Date Ernie Noriega MD [address] [place] [address] PCP - General Internal Medicine 08/25/19 documented as of this encounter
--- OUTSIDE RECORDS SUMMARY | 2025-02-23 09:34 | XMS_ITS | Encounter Summary ---
Author Organization [employer] Address [address] [place] [address] 7t [place] [address] Care Team Providers Care Health Professor Name Role Phone Ernie Noriega MD Primary Care Provide r Reason for Visit * Reason Onset Date Comments Med Refill 10/12/2024 Encounter Details Date Type Department Care Team ([facility] st Contact Info) Description 10/12/2024 Refill [facility] [address] [place] [address] Ernie Noriega MD [address] [place] [address] Primary osteoarthritis of knee, unspecified laterality Social [...] [facility] [address] [place] [address] Ernie Noriega MD [address] [place] [address] documented as of this encounter Visit Diagnoses Diagnosis Primary osteoarthritis of knee, unspecified laterality documented in this encounter Additional Health Concerns Assessment Noted Time PHQ-9 Depression Total Score: 2 01/21/20 24 1:25 PM EDT documented as of this encounter Care Teams Health Professor Relationship Specialty Start Date End Date Ernie Noriega MD [address] [place] [address] PCP - General Internal Medicine 08/25/19 documented as of this encounter
--- OUTSIDE RECORDS SUMMARY | 2025-02-23 09:34 | XMS_ITS | Encounter Summary ---
Author Organization [employer] Address [address] [place] [address] 7 [place] [address] Care Team Providers Care Call Centre Supervisor Name Role Phone Ernie Noriega MD Primary Care Provide r Reason for Visit * Reason Onset Date Comments verbal order 11/21/2022 Encounter Details Date Type Department Care Team (Late st Contact Info) Description 11/21/2022 Telephone [facility] [address] [place] [address] Ernie Noriega MD [address] [place] [address] verbal order Social History Tobacco Use Types [...] 1:08 PM EST Tc from Baldemar from [facility] calling to inform pt started home services today . Baldemar is also requesting a verbal order for pt to start physical therapy for 2x a week for 4 weeks . Best contact # [phone]. documented in this encounter Plan of Treatment Upcoming Encounters Date Type Department Care Team (Late st Contact Info) Description 04/13/2025 2:15 PM EDT Office Visit [facility] [address] [place] [address] Ernie Noriega MD [address] [place] [address] documented as of this encounter Visit Diagnoses Not on filedocumented in this encounter Care Teams Call Centre Supervisor Relationship Specialty Start Date End Date Ernie Noriega MD [facility] [place] [address] PCP - General Internal Medicine 08/25/19 documented as of this encounter
== END 2025-02-23 09:38 | disposition home or self-care (01) ==
LOC: HO.HVS 09:02
PROVIDERS: PCP Internal Medicine; Visit Provider Surgery Vascular Surgery
DX: I83.12 Varicose veins of left lower extremity with inflammation (principal)
CPT/HCPCS: 99214

== ENCOUNTER → 2025-02-23 09:01 | Outpatient (BNVA) | payer MEDICAID, SELFPAY | PROVIDERS: PCP Internal Medicine; Visit Provider Surgery Vascular Surgery | DX: I83.12 Varicose veins of left lower extremity with inflammation (principal) | CPT/HCPCS: 99212 ==

== ENCOUNTER 2025-02-27 14:43 | Outpatient (AMB) | payer MEDICAID, SELFPAY ==
--- OUTSIDE RECORDS SUMMARY | 2025-02-27 14:47 | XMS_ITS | Clinical Summary ---
Author Organization [facility] Address [address] [place] [address] Care Team Providers Care Shop Laborer Name Role Phone Ernie Merritt Primary Care [...] propionate (FLONASE) 50 mcg/actuation nasal spray SMARTSI [place](s) Both Nares Twice Daily 3 Active tamsulosin [...] Type Department Care Team Description 02/13/2025 Telephone [facility] [address] [place] [address] Christopher Peres MD PAC General Info 01/31/2025 Telephone [facility] Neurosurgery [address] [address] Telephone Intake, Staff PAC Order Request 12/14/2024 9:00 AM EST Office Visit [facility] [address] [place] [address] Christopher Peres MD Chronic bilateral low back pain with bilateral sciatica (Primary Dx); H/O cervical spine surgery 12/13/2024 Telephone [facility] [address] [place] [address] Christopher Peres MD 12/08/2024 Telephone [facility] [address] [place] [address] Christopher Peres MD from Last 3 Months [...] Info) Description 03/14/2025 3:00 PM EDT Follow-Up [facility] [address] [place] [address] Christopher Peres MD [address] [place] [address] Health Maintenance Due Date Last Done Comments [...] this topic Procedures * Due to [place] Social 2 Step law, this organization might not be sharing [...] 3 Months Results * Due to [place] Social 2 Step law, this organization might not be sharing negative HIV tests. * MRI Cervical Spine WO Contrast (12/21/2024 7:55 AM EDT) Anatomical Region Laterality Modality Spine, C-spine Magnetic Resonan ce 12/21/2024 7:30 AM EDT Narrative 12/22/2024 2:31 PM EDT [facility] Accession Number: [id number] Patient Name: Miguelina Julien Date of : 1965 Date of Exam: 12-21-2024 Referring Physician: Christopher Peres ?[facility] ?[address] [place] [address] ?[place], [place] [address] Exam: MR Cervical Spine (C-) CPT 07248 Room Description: [facility] Espr 1.5 MR Cervical Spine (C-) CPT 11330 INDICATION: previous C spine surgery, appears tight on MRI T spine nurse navigator ?? 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 ? Workstation ID: [id number] Narrative 12/14/2024 5:30 PM EST COMPARISON: There are no prior studies available for comparison at this time. Resulting Agency Comment [id number] Procedure Note Stone Reid MD - 12/14/2024 [...] possible to obtain thecompleted interpretation. Workstation ID: [id number] us Christopher Peres MD IMG XR PROCEDURES [...] obtain the completed interpretation. ? Workstation ID: [id number] Narrative 12/14/2024 5:30 PM EST COMPARISON: There are no prior studies available for comparison at this time. Resulting Agency Comment [id number] Procedure Note Stone Reid MD - 12/14/2024 [...] possible to obtain thecompleted interpretation. Workstation ID: [id number] Christopher Peres MD IMG XR PROCEDURES Final Res ult from Last [address] [place], [place] [address] [address] Care Teams Shop Laborer Relationship Specialty Start Date End Date Ernie Merritt [address] [place] [address] PCP - General Internal Medicine 11/29/24
--- OUTSIDE RECORDS SUMMARY | 2025-02-27 14:47 | XMS_ITS ---
Author Organization [facility] Address [address] [place] [address] Care Team Providers Care Director Of Direct Marketing Name Role Phone Milton Ro MD, Ernie Primary Care Provide r Rodrick Juarez [phone] REASON FOR VISIT screening Encounters Encounter Location Date Provider Diagnosis [facility] Outpatient [address] [place], [place] [id number] 02/03/2024 Rodrick Millan Plan Of Treatment No Information Progress Notes * ISHMAEL HINOJOSADOB: 3 (59 yo F)Acc No.[id number]:02/03/2024 COLON WITH MAC Patient:?ISHMAEL HINOJOSA Provider:?Rodrick Millan MD :1965???Age:58 Y???Sex:Female D ate:02/03/2024 Address:[address] [place], [place] [address]PEPE NEIL Megan [facility] Pcp:Ernie bonilla MD Subjective: * Chief Complaints: [...] MD Date:? 024 Generated for Printi ng/Faanjelg/eTransmitting on:?02/27/2025 02:47 PM EDT
--- OUTSIDE RECORDS SUMMARY | 2025-02-27 14:47 | XMS_ITS | Clinical Summary ---
Author Organization [facility] Address [address] [place] [address] Phone Care Team Providers Care Immunology Teacher Name Role Phone Ernie Merritt MD Primary [...] 11:00 AM EST Office Visit Orthopedic Surgery [facility] [address] [place] [address] Nicolasa Yu PA S/P trigger finger release (Primary Dx) 12/07/2024 1:30 PM EST - 12/07/2024 3:00 PM EST Surgery [facility] [place] [address] [place] [address] Trista David MD LEFT A1 JOAO/TRIGGER FINGER RELEASE INDEX FINGER [76065 (CPT??)] 12/07/2024 12:30 PM EST Anesthesia Event [facility] [place] [address] [place] [phone] Irvin Fields MD Decandio, Laura, CRNA 12/07/2024 11:51 AM EST - 12/07/2024 2:43 PM EST Hospital Encounter [facility] [place] [address] [place] [address] Trista David MD Discharge Disposition: [...] Name Priority Date/Time Associated Diagnosis Comments [place] INCISION TENDON SHEATH 12/07/2024 12:32 PM EST [...] currently active code status orders. Care Teams Immunology Teacher Relationship Specialty Start Date End Date Ernie Merritt MD [address] [place] [address] [place] [phone] PCP - General Internal Medicine 05/20/21
--- OUTSIDE RECORDS SUMMARY | 2025-02-27 14:47 | XMS_ITS ---
Author Organization [facility] Address [address] [place] [address] Care Team Providers Care Cone Operator Name Role Phone Milton Ro MD, Ernie Primary Care Provide r Rodrick Juarez [phone] REASON FOR VISIT PROCEDURE TOMORROW Encounters Encounter Location Date Provider Diagnosis [facility] [address] [place] [address] 03/17/2024 Rodrick Millan Plan Of Treatment No Information Progress Notes * ISHMAEL HINOJOSADOB: 3 (58 yo F)Acc No.[id number]:03/17/2024 Patient:?ISHMAEL HINOJOSA :1965???Age:58 Y???Sex:Female Address:[address] [place], [address] * true * Date:? Generated for Gonzálezi pietro/Jean-Paul/eTransmitting on:?02/27/2025 02:47 PM EDT
--- OUTSIDE RECORDS SUMMARY | 2025-02-27 14:47 | XMS_ITS ---
Author Organization [facility] Address [address] [place] [address] Care Team Providers Care Building Economist Name Role Phone Milton Ro MD, Ernie Primary Care Provide r Rodrick Juarez Unavailable [phone] REASON FOR VISIT screening Problems Problem Type SNOMED Code ICD Code Onset Dates Problem Status W/U Status Risk Notes Problem Diverticulosis o f large intestine without perforation or abscess without bleeding (K57.30) Active confirmed Encounters Encounter Location Date Provider Diagnosis [facility] [address] [place], [place] [id number] 03/18/2024 Rodrick Millan Encounter for scre ening [...] * ISHMAEL HINOJOSADOB: 3 (59 yo F)Acc No.[id number]:03/18/2024 COLON WITH MAC Patient:?ISHMAEL HINOJOSA Provider:?Rodrick Millan MD :1965???Age:58 Y???Sex:Female D ate:03/18/2024 Address:[address] [place], [place] [address] Pcp:Ernie bonilla MD Subjective: * Chief Complaints: * ???1. Screening. * Medical History:? Objective: * Vitals:? Assessment: * Assessment: 1.?Encounter for screening c olonoscopy - Z12.11 (Primary)???2.?Colon polyps - K63.5???3.?Diverticulosis of large intestine without perforation or abscess without bleeding - K57.30???4.?Internal hemorrhoids - K64.8??? Plan: * Treatment: * Procedure Codes:?18841 COLON OSCOPY AND BIOPSY * * The named appointment provid er may or may not be the originator of this progress note, and it is not deemed complete until electronically signed by the appointment provider. Sign off status: Pending * Provider:?Rodrick Millan MD Date:? 024 Generated for Landon westbrook/Jean-Paul/eTransmitting on:?02/27/2025 02:47 PM EDT
--- OUTSIDE RECORDS SUMMARY | 2025-02-27 14:47 | XMS_ITS | Referral Summary ---
Author Organization [facility] Address [address] [place] [address] Care Team Providers Care Telecommunications Specialist Name Role Phone Ernie Merritt Primary Care Provider + Encounters Date Type Department Care Team Description 02/13/2025 Telephone [facility] [address] [place] [phone] Christopher Peres MD PAC General Info 01/31/2025 Telephone [facility] [address] [place] [address] Telephone Intake, Staff PAC Order Request 12/14/2024 9:00 AM EST Office Visit [facility] [address] [place] [phone] Christopher Peres MD Chronic bilateral low back pain with bilateral sciatica (Primary Dx); H/O cervical spine surgery 12/13/2024 Telephone [facility] [address] [place] [address] Christopher Peres MD 12/08/2024 Telephone [facility] [address] [place] [phone] Christopher Peres MD from Last 3 Months [...] propionate (FLONASE) 50 mcg/actuation nasal spray SMARTSI Debary(s) Both Nares Twice Daily 3 Active tamsulosin [...] Info) Description 03/14/2025 3:00 PM EDT Follow-Up [facility] [address] [place] [address] [phone] Christopher Peres MD [address] [place] [address] Procedures * Due to [place] [employer] law, this organization might not be sharing [...] Last 3 Months Results * Due to [place] [employer] law, this organization might not be sharing negative HIV tests. * MRI Cervical Spine WO Contrast (12/21/2024 7:55 AM EDT) Anatomical Region Laterality Modality Spine, C-spine Magnetic Resonan ce 12/21/2024 7:30 AM EDT Narrative 12/22/2024 2:31 PM EDT [facility] Accession Number: [id number] Patient Name: Miguelina Julien Date of : 1965 Date of Exam: 12-21-2024 Referring Physician: Christopher Peres ?[facility] ?[address] [place] [address] ?[place] [address] Exam: MR Cervical Spine (C-) CPT 94686 Room Description: [facility] 1.5 MR Cervical Spine (C-) CPT 46955 INDICATION: previous C spine surgery, appears tight on MRI T spine 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 ? Workstation ID: [id number] Narrative 12/14/2024 5:30 PM EST COMPARISON: There are no prior studies available for comparison at this time. Resulting Agency Comment [id number] Procedure Note Stone Reid MD - 12/14/2024 [...] possible to obtain thecompleted interpretation. Workstation ID: [id number] Christopher Peres MD IMG XR PROCEDURES [...] obtain the completed interpretation. ? Workstation ID: [id number] Narrative 12/14/2024 5:30 PM EST COMPARISON: There are no prior studies available for comparison at this time. Resulting Agency Comment [id number] Procedure Note Stone Reid MD - 12/14/2024 [...] possible to obtain thecompleted interpretation. Workstation ID: [id number] Christopher Peres MD IMG XR PROCEDURES Final Res ult from Last 3 Months Insurance [facility] Care Teams Telecommunications Specialist Relationship Specialty Start Date End Date Ernie Merritt [address] [place] [address] PCP - General Internal Medicine 11/29/24
--- OUTSIDE RECORDS SUMMARY | 2025-02-27 14:47 | XMS_ITS | Patient Health Record ---
Author Organization [facility] Address [address] [place] [address] Care Team Providers Care Gas And Oil Servicer Name Role Phone Milton Ro MD, Ernie Primary Care Provide r Rodrick Juarez Unavailable [phone] Allergies No Known Allergies Results Component Value Reference Range Notes Pathology (Not yet reviewed by provider) Interpretation: Performing Lab:[facility], [address] [place] [id number] Notes/Report: Name: Ishmael Julien Age/Sex: 58/F : 1965 Unit#: [id number] Attend Dr: Rodrick Millan Re03/18/24 Status : [facility] Location: [facility] Disch: SPEC : [id number] REC STATUS: RUBY GILLESPIE NUM: [id number] SANDEEP: 03/18/[address] [facility] [address]: Rodrick Millan ENTERED: 03/18/24-06 22 [...] A. CEDS Copies To: Ernie Merritt MD [address] [place] [address] [phone] Rodrick Millan [address] [place] [address] [address] [place] [address] Signed (si gnature on file) Donna [place] 03/22/24 1450 END OF REPORT Reason For [...] as needed Inhalation every 4 hrs Active Jfeccusodg-Ewhfyat-Ydcqpalz 50-325-40 MG 1 capsule as needed Orally [...] Problem Status W/U Status Risk Notes Problem 388989986 Colon cancer screening (Z12.11) Active confirmed Problem Diverticulosis o f large intestine without perforation or abscess without bleeding (K57.30) Active confirmed Problem 796826995976133 Preprocedural examination (Z01.818) Active confirmed Problem 559545061 Encounter for long-term (current) use of NSAIDs (Z79.1) Active confirmed Encounters Encounter Location Date Provider Diagnosis [facility] Out[facility] [address] [place], [place] [phone] 03/18/2024 Rodrick Millan Encounter for screen ing colonoscopy Z12.11 ; Colon polyps K63.5 ; Diverticulosis of large intestine without perforation or abscess without bleeding K57.30 and Internal hemorrhoids K64.8 [facility] [address] [place] [address] 03/17/2024 Rodrick Millan Assessments Encounter Date Diagnosis [...] Start Date Coverage End Date [facility] [address] [place] [address] [id number] [facility] Self - patient is the insured Medical (General) History Medical History History ICD Code Denies FL,DM,CVA,renal disease Asthma Depression/anxiety Hypertension Negative screening colonoscopy in 06/2013 Arthritis/Body aches Surgical History Surgery Date(Month/Year) Back surgery for disc disease Bilateral carpal tunnel Left shoulder C-spine disc surgery Bilateral knee replacements Might be having a left shoulder replacem ent as of the 07/2023 OV
--- NOTE | 2025-02-27 14:52 | MHC.OFFVIS ---
Vital Signs 02/27/25 14:54 Height 5 ft 3 in Weight 164 lb BMI 29.0 BP 128/66 Blood Pressure Location Rt brachial Position Sitting Pulse 59 Pulse Source Pulse Oximeter Pulse Oximetry (%) 96 Oxygen Delivery Method Room Air Intake Visit Reasons: COPD Allergies No Known Allergies Allergy (Verified 02/27/25 14:56) HPI HPI COPD: Details: 59-year-old lady, former 20 pack-year smoker, 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 She has been using Advair 250, Singulair, and albuterol MDI/nebs with good control of her symptoms.? She denies any recent exacerbations. No significant changes since prior. [facility] Medical History Right-sided ischial pain Tubular adenoma of colon Hematuria Dysuria Overweight Varicose vein of leg Chronic tension-type headache, not intractable Neuropathic pain Hyperlipidemia Carpal tunnel syndrome Cervical radiculopathy Depressive disorder Diverticulosis HTN (hypertension) Osteoarthritis Asthma Essential hypertension Low back pain Pre-diabetes Seasonal allergies GERD (gastroesophageal reflux disease) Post-COVID syndrome COPD (chronic obstructive pulmonary disease) Arthritis Anxiety Depression Hesitancy of micturition Moderate persistent asthma Surgical History History of carpal tunnel release Hx of eye surgery Hx of cataract extraction Hx of shoulder surgery History of carpal tunnel surgery of right wrist H/O colonoscopy History of total right knee replacement History of back surgery History of total left knee replacement (~06/2020) Family History Mother Heart disease Sister HTN (hypertension) Sister HTN (hypertension) Diabetes Maternal Grandmother Cervical cancer Social History Household Members: Spouse Housing: House Are you a primary family day carer to a significant other at home: No Do you presently have visiting nurse or other home services: No Alcohol intake: never Comment: in bathroom, aware of trip hazard Patient Tobacco Use Status: Former Tobacco user Tobacco use type: Cigarette Second Hand Smoke Exposure: No Substance Use Type: Marijuana Advance Directives Date on File: 12/17/21 service: No Current occupational status: unemployed Current occupation: Right Handed Gender identity: Female Review of Systems Const Denies daytime sleepiness, Denies excessive sweating, Denies fatigue, Denies fever(s), Denies lethargy, Denies malaise, Denies night sweats, Denies snoring and Denies weight loss Eyes Denies blurry vision and Denies itchy eyes ENT Denies nasal congestion, Denies post nasal drip, Denies sinus pain, Denies sinus pressure and Denies other ( Thrush) Card Denies chest pain, Denies pedal edema, Denies dyspnea, Denies orthopnea and Denies paroxysmal nocturnal dyspnea Resp Denies cough, Denies hemoptysis, Denies excessive phlegm production, Denies dyspnea, Denies snoring and Denies wheezing GI Denies abdominal pain and Denies heartburn Musc Denies myalgias, Denies arthralgias and Denies joint swelling Skin/Breast Denies rash Neuro Denies memory loss and Denies seizure-like activity Psych Denies abnormal sleep pattern, Denies anxiety and Denies memory loss Endo Denies excessive sweating, Denies fatigue and Denies heat intolerance Darrian/Lymph Denies easy bruising Aller/Immun Denies itchy eyes, Denies seasonal rhinorrhea and Denies wheezing Physical Exam Vital Signs: Last Vital Signs Pulse 59 02/27/25 14:54 BP 128/66 02/27/25 14:54 Pulse Ox 96 02/27/25 14:54 Oxygen Delivery Method Room Air 02/27/25 14:54 BMI result Body Mass Index 29.0 Const General: no acute distress and alert Nutritional Appearance: not obese Orientation/consciousness: Other orientation findings ( oriented) HEENT Head: Yes atraumatic Eyes General: appearance normal, both eyes and all related structures Sclerae: sclerae normal EOM: EOMs intact bilaterally Neck Neck: Yes supple Lymphatic: no lymphadenopathy noted Resp Effort & Inspection: normal respiratory effort and no use of accessory muscles Auscultation: clear to auscultation bilaterally Cardio Rate: regular rate Rhythm: regular rhythm Heart sounds: no gallops, no murmurs and no rubs Skin General skin exam: other ( warm) Extrem General: No clubbing, No cyanosis and No edema Assessment & Plan Assessment & Plan (1) Moderate persistent asthma: Code(s): J45.40 - Moderate persistent asthma, uncomplicated Category: Medical Plan: Well controlled on current regimen of Advair and albuterol MDI/nebs. Continue current regimen. (2) Environmental allergies: Code(s): Z91.09 - Other allergy status, other than to drugs and biological substances Category: Medical Plan: Well controlled on Flonase and Singulair. Continue current regimen. Coding Level of Care Code Est Pt Level 4 (07379) Diagnoses Moderate persistent asthma J45.40 Environmental allergies Z91.09
[2025-02-27 14:54] VITALS: BP 128/66; PULSE 59; O2SAT 96; BMI 29.0
== END 2025-02-27 15:30 | disposition home or self-care (01) ==
LOC: HO.HPS 14:44
PROVIDERS: PCP Internal Medicine; Visit Provider Internal Medicine Pulmonary Disease
DX: J45.40 Moderate persistent asthma, uncomplicated (principal); Z91.09 Other allergy status, other than to drugs and biological substances
CPT/HCPCS: 99214

== ENCOUNTER → 2025-02-27 14:43 | Outpatient (BNVA) | payer MEDICAID, SELFPAY | PROVIDERS: PCP Internal Medicine; Visit Provider Internal Medicine Pulmonary Disease | DX: J45.40 Moderate persistent asthma, uncomplicated (principal); Z91.09 Other allergy status, other than to drugs and biological substances | CPT/HCPCS: 99212 ==

== ENCOUNTER 2025-03-07 12:21 | Emergency (ER) | payer MEDICAID, SELFPAY ==
--- NOTE | ~2025-03-07 | XR_ITS ---
EXAMINATION: XR LUMBOSACRAL SPINE CLINICAL INFORMATION: low back pain COMPARISON: 09/23/2024. TECHNIQUE: Three views of the lumbosacral spine. FINDINGS: Transitional lumbosacral anatomy present. There is a mild right convex scoliosis, apex at L3-4. There is straightening of the normal lordosis. There has been posterior fusion with transpedicular screws and posterior connecting rods at L3-4. There have been discectomies with placement of disc prosthesis at L3-4, and disc cages at L4-5 and L5-S1. The hardware is intact and appears well seated without definite loosening. Degenerative retrolisthesis of T12 on L1, and mild anterolisthesis of L1 on L2. Severe disc degeneration throughout the imaged spine. Sclerosis of the endplates present T11-12 and T12-L1. Multilevel facet degeneration throughout the lumbar region. XR/XR lumbar spine 2-3V IMPRESSION: 1. No acute findings of the lumbar spine. 2. Advanced spondylosis with postsurgical fusion of L3-S1. No hardware complication evident. 3. Advanced degenerative disc disease, most notable at L1-L3. Multilevel facet degeneration. 4. Overall no change from 09/23/2024. Electronically signed by: Stone Vann MD 03/07/2025 01:56 PM EDT
[2025-03-07 12:53] VITALS: BP 130/67; PULSE 55; RESP 16; TEMP 36.1; O2SAT 97; BMI 29.0
--- NOTE | 2025-03-07 12:54 | ED.GENADULT ---
HPI - General Adult General Chief complaint: Back Pain/Injury Stated complaint: Pain/tingling both legs, insomnia Time Seen by Provider: 03/07/25 15:27 History of Present Illness ED Provider: Khris Banuelos MD HPI narrative: [age] female with multiple previous back surgeries most recently Dr. Arias and at [facility] sounds like fusions of the lumbar spine with degenerative disc disease known to her. It March 17 she has an upcoming appointment at [facility] for possible additional back surgery. She has chronic lower lumbar pain. She has chronic urinary symptoms she describes as having to push hard that is chronic she sees a urologist for this is unchanged no focal motor deficits. Denies fever Related Data Home Medications ?Medication ?Instructions ?Recorded ?Confirmed hydrochlorothiazide 25 mg tablet 25 mg PO DAILY 12/03/21 01/13/25 montelukast 10 mg tablet 10 mg PO BEDTIME 12/03/21 01/13/25 omeprazole 20 mg capsule,delayed 20 mg PO DAILY 12/03/21 01/13/25 release zolpidem 10 mg tablet 10 mg PO BEDTIME PRN Insomnia 12/03/21 01/13/25 albuterol sulfate 2.5 mg/3 mL 2.5 mg inhalation Q6-8H PRN 12/10/21 01/13/25 (0.083 %) solution for nebulization Shortness Of Breath escitalopram oxalate 5 mg tablet 5 mg PO QAM 09/02/22 01/13/25 lidocaine 5 % topical patch 1 - 2 patch topical Q12H PRN pain 09/02/22 01/13/25 (Lidoderm) multivitamin 1 tab PO DAILY 01/20/24 01/13/25 acetaminophen 500 mg tablet 500 mg PO Q12H PRN pain 08/03/24 01/13/25 diclofenac potassium 50 mg tablet 50 mg PO BID 08/03/24 01/13/25 diphenhydramine HCl 25 mg capsule 25 - 50 mg PO BEDTIME 08/03/24 01/13/25 (Banophen) fluticasone propionate 50 2 spray intranasal BID 08/03/24 01/13/25 mcg/actuation nasal spray,suspension gabapentin 300 mg capsule 300 mg PO TID 08/03/24 01/13/25 omega 2-dpe-plm-fish oil 1,000 mg 1 cap PO DAILY 08/03/24 01/13/25 (120 mg-180 mg) capsule (Fish Oil) valacyclovir 1 gram tablet 2,000 mg PO BID 08/03/24 01/13/25 Previous Rx's ?Medication ?Instructions ?Recorded walker #1 ea 01/28/24 albuterol sulfate 90 mcg/actuation 2 puff inhalation Q4-6H PRN 09/19/24 aerosol inhaler shortness of breath or wheezing #8.5 grams naloxone 4 mg/actuation nasal 4 mg intranasal Q2M PRN opioid 10/20/24 spray (Narcan) overdose #2 ea fluticasone 500 mcg-salmeterol 50 1 ea inhalation BID #60 ea 12/01/24 mcg/dose blistr powdr for inhalation (Advair Diskus) acetaminophen 500 mg tablet 1,000 mg (2 x 500 mg) PO QID PRN 12/22/24 (Tylenol Extra Strength) pain #30 tabs tamsulosin 0.4 mg capsule 0.4 mg PO DAILY@1700 90 days #90 12/27/24 caps ibuprofen 600 mg tablet 600 mg PO Q6H PRN pain #60 tabs 02/02/25 methocarbamol 750 mg tablet 750 mg PO Q8H 4 days #12 tabs 03/07/25 morphine 15 mg immediate release 15 mg PO Q8H PRN pain #7 tabs 03/07/25 tablet Allergies Allergy/AdvReac Type Severity Reaction Status Date / Time No Known Allergies Allergy Verified 03/07/25 12:56 PMFSH Past Medical History Medical History Right-sided ischial pain Tubular adenoma of colon Hematuria Dysuria Overweight Varicose vein of leg Chronic tension-type headache, not intractable Neuropathic pain Hyperlipidemia Carpal tunnel syndrome Cervical radiculopathy Depressive disorder Diverticulosis HTN (hypertension) Osteoarthritis Asthma Essential hypertension Low back pain Pre-diabetes Seasonal allergies GERD (gastroesophageal reflux disease) Post-COVID syndrome COPD (chronic obstructive pulmonary disease) Arthritis Anxiety Depression Hesitancy of micturition Moderate persistent asthma Surgical History History of carpal tunnel release Hx of eye surgery Hx of cataract extraction Hx of shoulder surgery History of carpal tunnel surgery of right wrist H/O colonoscopy History of total right knee replacement History of back surgery History of total left knee replacement (~06/2020) Family History Family History Mother Heart disease Sister HTN (hypertension) Sister HTN (hypertension) Diabetes Maternal Grandmother Cervical cancer Social History Social History Household Members: Spouse Housing: House Are you a primary hospice home care coordinator to a significant other at home: No Do you presently have visiting nurse or other home services: No Alcohol intake: never Comment: in bathroom, aware of trip hazard Patient Tobacco Use Status: Former Tobacco user Tobacco use type: Cigarette Smoked in Last 30 Days: No Second Hand Smoke Exposure: No Use of substances other than those prescribed or required for medical reasons: Yes Substance Use Type: Marijuana Substance Use Frequency: Daily Advance Directives: Yes Advance Directives on File: Yes Advance Directives Date on File: 12/17/21 Do you have a plan to hurt others: No Plan Patient : No service: No Current occupational status: unemployed Current occupation: Right Handed Gender identity: Female Physical Exam ED Vital Signs: Vital Signs - 24 hr 03/07/25 12:53 03/07/25 15:24 03/07/25 16:46 Temperature 97.0 F 98.1 F 98.0 F Pulse Rate 55 52 51 Respiratory Rate 16 19 14 Blood Pressure 130/67 134/66 137/63 Pulse Oximetry 97 95 95 Oxygen Delivery Method Room Air Room Air Room Air 03/07/25 17:56 03/07/25 18:32 Temperature 97.9 F 97.8 F Pulse Rate 51 51 Respiratory Rate 19 16 Blood Pressure 147/60 H 147/60 H Pulse Oximetry 95 98 Oxygen Delivery Method Room Air Room Air BMI result Body Mass Index 29.0 Const Other: EXAM: Gen: Alert, awake, well appearing, well hydrated. Head: Atraumatic Eyes: Anicteric, Normal conjunctiva. ENT: Moist mucosa, no pallor. ? Neck: Supple. Respiratory: Breathing comfortably, No distress.Clear to auscultation bilaterally, symmetric chest expansion, No wheeze, rales, ronchi. Cardiovascular: Regular rate and rhythm. No murmurs or rub. Well perfused periphery, warm extremities. No edema. ? Abdominal: No FOCAL TENDERNESS. Soft, no objective distension. No palpable masses or obvious organomegaly. ?No guarding, no rebound tenderness or other peritoneal findings. : No flank tenderness. Neuro: Alert. Gross movement of all extremities intact. ?Bilateral 4-5 strength with leg lift off bed chronic chronic and unchanged effort/pain degraded per patient and at the bedside. Sensation intact to light touch MSK scar in the lumbar region tender paraspinal musculature Vital signs: See flowsheet Course Course Course Narrative: This is a Rapid Medical Exam performed in triage by Florence Galloway PA-C. Full HPI, ROS and PE to be performed by primary ED provider. 59-year-old female with a past medical history HTN, oa, asthma, GERD, anxiety, depression presenting to the ED c/o low back pain rad down b/l LE with assoc tingling. States she has to push in order to urinate. Denies incontinence/retention PE: +lumbar paraspinal msk ttp, NV intact distally. Ambulating with slow steady gait Plan: X-ray, UA Medications Administered Discontinued Medications Generic Name Dose Route Start Last Admin Trade Name Freq PRN Reason Stop Dose Admin Acetaminophen 975 mg 03/07/25 15:30 03/07/25 16:11 Acetaminophen 325 Mg Tablet PO 03/07/25 15:31 975 mg ONCE ONE Administration Diazepam 2 mg 03/07/25 15:30 03/07/25 16:11 Diazepam 2 Mg Tablet PO 03/07/25 15:31 2 mg ONCE ONE Administration Ketorolac Tromethamine 10 mg 03/07/25 15:30 03/07/25 16:11 Ketorolac Tromethamine 15 Mg/Ml Vial IM 03/07/25 15:31 10 mg ONCE ONE Administration Lidocaine 2 patch 03/07/25 15:30 03/07/25 16:12 Lidocaine 4 % Patch Adh..Patch TRANSDERMA 03/07/25 15:31 2 patch ONCE ONE Administration Protocol Methocarbamol 500 mg 03/07/25 15:30 03/07/25 16:11 Methocarbamol 500 Mg Tablet PO 03/07/25 15:31 500 mg ONCE ONE Administration Medical Decision Making Medical Decision Making [facility] Narrative: 59-year-old female with multiple prior back surgeries chronic arthritis of the lumbar spine. With the recurrent pain atraumatic. No focal neurologic signs or symptoms to suggest cauda equina syndrome or acute cord compression. Ambulatory. Baseline motor exam and gait per patient and . Some pain relief with multimodal analgesia in the ED. Lab Data MDM Lab Attestation statement: I reviewed the patient's lab results. Labs: Lab Results 03/07/25 Range/Units 15:30 Urine Color Yellow Urine Appearance Clear Urine pH 7.0 (5.0-9.0) Ur Specific [place] 1.020 (1.005-1.025) Urine Protein Negative (Neg-Trace) mg/dL Urine Glucose (UA) Negative (Negative) mg/dL Urine Ketones Negative (Negative) mg/dL Urine Blood Negative (Negative) Urine Nitrite Negative (Negative) Ur Leukocyte Esterase Negative (Negative) Independent Interpretation I performed an independent interpretation of an: Plain X-Ray (Lumbar film shows hardware no obvious acute traumatic injury) Discharge Plan Discharge Clinical Impression: Lumbar back pain Patient Disposition: Home, Self-Care Instructions: Acute Low Back Pain (ED) Additional Instructions: DISCHARGE DIAGNOSES: Chronic low back pain degenerative disc disease HISTORY OF PRESENTATION: ?Acute on chronic low back pain no injury EMERGENCY DEPARTMENT COURSE,TESTS, TREATMENTS: While in the ED today you had an x-ray that showed degenerative disease of the spine. You were given multiple medications including anti-inflammatories antispasmodics and topical medications DISCHARGE MEDICATIONS: ?[We have made no changes to your regular medication regimen] FOLLOW-UP: ?Call your primary or general physician soon as possible to discuss your symptoms, your ED visit and to discuss follow up plans Continue with your previously scheduled spine surgery appointment INSTRUCTIONS ?& RETURN PRECAUTIONS: If any symptoms change first call your primary physician, if it is after-hours your primary doctors office should have a provider optoelectronics engineer you can speak with. If the symptoms are severe or very concerning to you then call 911 or return to the ED. Any weakness of your motor strength loss of sensation loss of bowel or bladder incontinence return back to the ED Khris Banuelos MD Emergency Physician [facility] Prescriptions: New methocarbamol 750 mg tablet 750 mg PO Q8H 4 Days Qty: 12 0RF morphine 15 mg tablet 15 mg PO Q8H PRN (Reason: pain) Qty: 7 0RF Rx Instructions: Partial Fill upon patient request. No Action albuterol sulfate 90 mcg/actuation HFA aerosol inhaler 2 puff inhalation Q4-6H PRN (Reason: shortness of breath or wheezing) Qty: 8.5 11RF fluticasone propion-salmeterol [Advair Diskus] 500-50 mcg/dose blister with device 1 ea inhalation BID Qty: 60 6RF tamsulosin 0.4 mg capsule 0.4 mg PO DAILY@1700 90 Days Qty: 90 1RF ibuprofen 600 mg tablet 600 mg PO Q6H PRN (Reason: pain) Qty: 60 1RF albuterol sulfate 2.5 mg /3 mL (0.083 %) Solution For Nebulization 2.5 mg INHALATION Q6-8H PRN (Reason: Shortness Of Breath) valacyclovir 1 gram Tablet 2,000 mg PO BID acetaminophen 500 mg tablet 500 mg PO Q12H PRN (Reason: pain) diphenhydramine HCl [Banophen] 25 mg capsule 25 - 50 mg PO BEDTIME diclofenac potassium 50 mg tablet 50 mg PO BID gabapentin 300 mg capsule 300 mg PO TID fluticasone propionate 50 mcg/actuation spray,suspension 2 spray intranasal BID omega 8-vqf-pvc-fish oil [Fish Oil] 1,000 mg (120 mg-180 mg) Capsule 1 cap PO DAILY multivitamin Tablet 1 tab PO DAILY acetaminophen [Tylenol Extra Strength] 500 mg tablet 1,000 mg PO QID PRN (Reason: pain) Qty: 30 0RF escitalopram oxalate 5 mg tablet 5 mg PO QAM lidocaine [Lidoderm] 5 % adhesive patch,medicated 1 - 2 patch topical Q12H PRN (Reason: pain) montelukast 10 mg tablet 10 mg PO BEDTIME omeprazole 20 mg capsule,delayed release(DR/EC) 20 mg PO DAILY zolpidem 10 mg tablet 10 mg PO BEDTIME PRN (Reason: Insomnia) hydrochlorothiazide 25 mg tablet 25 mg PO DAILY naloxone [Narcan] 4 mg/actuation spray,non-aerosol 4 mg intranasal Q2M PRN (Reason: opioid overdose) Qty: 2 0RF Rx Instructions: spray 1 dose into ONE nostril; alternate nostrils w each dose until help arrives (DME) walker Misc See Rx Instructions .ROUTE .MEDSULY Qty: 1 0RF Rx Instructions: Folding front wheeled walker Interventions: ED Discharge Assessment Last Done: 03/07/25 18:32 Discharge Date/Time: 03/07/25 18:37 Print Language: Ugandan
[2025-03-07 15:24] VITALS: BP 134/66; PULSE 52; RESP 19; TEMP 36.7; O2SAT 95
[2025-03-07 15:56] LABS: Appearance Urine Clear; Color Urine Yellow; Glucose Urine UA Negative (Negative); Leukocyte Esterase Urine Negative (Negative); Nitrite Urine Negative (Negative); Urine Blood Negative (Negative); Urine Ketones Negative (Negative); Urine Protein Negative (Neg-Trace)
--- OUTSIDE RECORDS SUMMARY | 2025-03-07 16:05 | XMS_ITS | Encounter Summary ---
Author Organization [email or web address] Address [address] [place] [address] [address] [place] [address] Care Team Providers Care Dot Net Architect Name Role Phone Ernie Noriega MD Primary Care Provide r Reason for Visit * Reason Onset Date Comments Med Refill 03/15/2024 Encounter Details Date Type Department Care Team ([facility] st Contact Info) Description 03/15/2024 Refill [facility] [address] [place] [address] Ofelia Melgar MD [address] [place] [address] Chronic midline low back pain without sciatica; [...] 2:15 PM EDT Office Visit [facility] [address] [place] [address] Ernie Noriega MD [address] [place] [address] documented as of this encounter Visit Diagnoses Diagnosis Chronic midline low back pain without sciatica Cervical radiculopathy Brachial neuritis or radiculitis nos documented in this encounter Additional Health Concerns Assessment Noted Time PHQ-9 Depression Total Score: 2 01/21/20 24 1:25 PM EDT documented as of this encounter Care Teams Dot Net Architect Relationship Specialty Start Date End Date Ernie Noriega MD [address] [place] [address] PCP - General Internal Medicine 08/25/19 documented as of this encounter
[2025-03-07] MEDS: diazePAM 2 MG TABLET PO (16:11)
[2025-03-07] MEDS: methocarbamoL 500 MG TABLET PO (16:11)
[2025-03-07] MEDS: Acetaminophen 325 MG TABLET 975 MG PO (16:11)
[2025-03-07] MEDS: Ketorolac Tromethamine 15 MG/ML VIAL 10 MG IM (16:11)
[2025-03-07] MEDS: Lidocaine 4 % Patch ADH..PATCH 2 PATCH TRANSDERMA (16:12)
[2025-03-07 16:46] VITALS: BP 137/63; PULSE 51; RESP 14; TEMP 36.7; O2SAT 95
--- NOTE | 2025-03-07 17:25 | PC.NURSE ---
Patient malagasy speaking. Patient A&O x 3. Patient presents to ED c/o back pain rated 10/10. Denies injury. Pain started approx couple weeks ago and has got progressively worse.Patient states my legs are tingling and numb +CMS +ROM. Xray results unremarkable. Patient medicated with somewhat relief, 05/21. . Patient c/o difficulty urinating and a pressure which has been going on for about a year, UA results unremarkable. Patient uses walker to get around. at bedside. Plan of care on going.
[2025-03-07 17:56] VITALS: BP 147/60; PULSE 51; RESP 19; TEMP 36.6; O2SAT 95
[2025-03-07 18:32] VITALS: BP 147/60; PULSE 51; RESP 16; TEMP 36.6; O2SAT 98
== END 2025-03-07 18:37 | disposition home or self-care (01) ==
PROVIDERS: Physician Assistant; Emergency Provider Emergency Medicine; PCP Internal Medicine
DX: M54.50 Low back pain, unspecified (principal); G47.00 Insomnia, unspecified; Z79.899 Other long term (current) drug therapy; Z87.891 Personal history of nicotine dependence
CPT/HCPCS: 72100; 81003; 96372; 99284; J1885

== ENCOUNTER → 2025-03-07 12:57 | Outpatient (BNV) | payer MEDICAID, SELFPAY | PROVIDERS: PCP Internal Medicine; Visit Provider Radiology Diagnostic Radiology | DX: M51.360 Other intervertebral disc degeneration, lumbar region with discogenic back pain only (principal); M47.817 Spondylosis without myelopathy or radiculopathy, lumbosacral region | CPT/HCPCS: 72100 ==

== ENCOUNTER 2025-03-09 14:17 | Outpatient (AMB) | payer MEDICAID, SELFPAY ==
--- NOTE | 2025-03-09 14:18 | MHC.OFFVIS ---
Vital Signs 03/09/25 14:22 Height 5 ft 3 in Weight 164 lb BMI 29.0 BP 116/71 Blood Pressure Location Lt brachial Position Sitting Pulse 58 Pulse Source Pulse Oximeter Pulse Oximetry (%) 97 Oxygen Delivery Method Room Air Intake Visit Reasons: FU Back pain Intake Note: Pain today 10/10 Pathology Assistant Required: Yes Pathology Assistant Language: Sld Educational Aide Name: Accompanied by: Spouse Allergies No Known Allergies Allergy (Verified 03/09/25 14:23) HPI Comments Details: The patient is a 59-year-old female presenting with an increase in back pain and bilateral leg pain. She reports that her leg pain, especially right knee pain has worsened to the point where she requires assistance to get out of bed. The patient has a history of significant varicose veins, and a previous procedure on one leg provided some relief. Despite this, her leg pain persists. Additionally, the patient experiences right knee pain, which is being evaluated by benefits specialist in April. She visited the emergency room recently, where she received morphine and a muscle relaxer, offering temporary relief. She also uses ibuprofen for pain management and has a history of using diclofenac potassium which finds more beneficial. The patient is scheduled for a neurosurgical evaluation at [facility] on March 14 to address her back pain further. She is under the care of a vascular specialist for her varicose veins. PRIOR: The patient is a 59-year-old female presenting with chronic back pain. The pain has continued despite a Caudal Epidural Steroid Injection administered on December 09, from which no relief was achieved. Initially managed with oxycodone, the patient's discomfort has persisted, necessitating further evaluation. Radiating pain affects both lower extremities and is aggravated by physical activity, movements or walking. Recent physical therapy sessions, a precondition for potential surgical consideration at [facility] due to insurance requirements, have intensified her pain. Pain is rated 10/10. The ongoing concern involves a T11 epidural lesion, previously evaluated with no immediate intervention required per patient after she was seen at [facility]. In consultation with a neurosurgeon, a follow-up is scheduled for March to discuss back surgery to address spinal stenosis related pain. Current pain management strategies, including ibuprofen, gabapentin and medical marijuana, offer minimal alleviation. Recent episodes required emergency oxycodone use, highlighting the chronic nature of the pain. She reports good pain relief with oxycodone but notes it causes her significant drowsiness. Initially, she want me to provide her short term oxycodone until back surgery. Upon discussion for opioid program entrance, patient declined opioids for its side effects and elected to continue pain management with Ibuprofen as this has been partially effective for her. - Onset and Timing: Persistent pain, no relief from Caudal epidural steroid injection. - Quality and Character: Chronic, radiating pain affecting both lower extremities. - Primary Location: Mid-back and lower back. - Radiation: From the back down both legs laterally and posteriorly with numbness and tingling. - Exacerbating Factors: Physical therapy and activity. - Alleviating Factors: Limited; minimal relief with ibuprofen, gabapentin, Tylenol and medical marijuana. - Interference: Affects mobility and performance of daily tasks due to persistent pain. - Affect: Heightened mood disturbance due to chronic pain, affecting her daily life and comfort and sleep. - Analgesia: Current use of ibuprofen, Tylenol, gabapentin and medical marijuana with inadequate pain control. Previously took oxycodone for severe episodes. - Adverse Effects: No specific side effects from recent NIC. Reports drowsiness with oxycodone. - Activities of Daily Living: Pain significantly impacts mobility; physical therapy worsens symptoms but is an insurance requirement for surgery. - Aberrant Drug-Related Behaviors: Episodic use of oxycodone when pain is unmanageable, with potential for opioid contract initiation. However, due to significant drowsiness, patient elected not to continue with opioids. Past Procedures: 12/09/24: Caudal NIC with catheter-0% pain relief PRIOR: Patient presents today for follow up to discuss recent thoracic spine MRI results. Patient reports worsening mid and low back pain with radiculopathy. She reports recent fall over 2 weeks ago when she fell on ice and reports increased back pain. We are awaiting insurance approval for Caudal NIC. Thoracic spine MRI results were discussed with patient and her Brandyn who she requested as leadership program intern. We will proceed with Oncology evaluation to further evaluate T11 thoracic epidural lesion. Patient became emotionally tearful as her brother from liver cancer. She is aware lesion might represent disc protrusion and extrusion or fibrous calcified lesion. Denies any recent cough, cold, infection, fever or any significant changes in medical history since last office visit. PRIOR: Patient is a pleasant 59 years old Greenlandic speaking female with history of rotator cuff impingement, chronic back pain with h/o lumbar fusion L3-S1 in 2004, posterior neural foraminotomy at L2-L3 [place] [address] Bailey, varicose veins, mild persistent asthma, chronic neuropathy, osteoarthritis, cervical radiculopathy, chronic headaches, depression, h/o bilateral TKR, chronic left shoulder pain, presents today for initial evaluation for chronic low back pain with radiculopathy. Denies any recent trauma, injury or falls. Reports history of multiple surgeries and falls. Patient reports midline low back pain with radiation into both lower lower extremities predominantly posteriorly but also experiences significant bilateral groin pain, worse on the right side with SLR testing. She reports her back pain is also radiates upward and into her left flank and partially left side of middle of abdomen. Patient was previously followed by [facility] by Dr. Clint Newberry in the past and had undergone multiple injection and incomplete SCS trial in the past which she attributes to miscommunication due to language barrier. Per referral notes, patient was admitted to [facility] 11/13/22-11/20/22 due to worsening low back pain with radiation to her right thigh and right leg after an thoracic spinal stimulation procedure which was aborted due to severe pain during the procedure. She was treated with gabapentin, diazepam and hydromorphine. She is willing to undergo repeat SCS trial in the near future in our office but requests epidural steroid injection to alleviate her radicular symptoms. Patient was also seen at [facility] on 08/26/24 with c/o low back pain with radiculopathy. Patient was seen by [facility] providers last month and was deemed not surgical after recent lumbar spine MRI results. Per most recent Neurosurgical evaluation, patient was discussed about an oblique lumbar interbody fusion L2-3, trans Kambin lumbar interbody fusion L1-2 and T12-L1, as well as pedicle screws at T11 to stabilize the thoracolumbar junction if her back pain caused a profound impact on her quality of life. Patient is hesitant towards additional back surgery. Pain affects her daily activities and functioning, mobility, sleep, mood, social interactions and quality of life. Patient receives Psychological counseling for chronic pain and depression through [facility]. Back pain has been resistant to physical therapy (completed 02/17/24-03/23/24), home exercise program, TENS unit, oral and topical medication and activity modifications. Denies any fever or chills, bladder or bowel dysfunction or saddle anesthesia. Reports bilateral weakness of lower extremities due to back pain, left worse than right. Oswestry Low Back Pain Disability Score=32 (severe disability) Location: Lower back pain radiates upward (more on left) and lower extremities, L>R Duration: Chronic pain, worsening for past 1-2 years Characteristics of symptom or complaint: Throbbing, shooting, stabbing, pinching, radiating, tingling, burning, sore Aggravating or associated factors: Movements, walking, standing, bending, lifting, ADLs, sleep, cold Relieving factors: Rest, heat/cold, Tylenol, NSAIDs, gabapentin, PFSH Medical History Right-sided ischial pain Tubular adenoma of colon Hematuria Dysuria Overweight Varicose vein of leg Chronic tension-type headache, not intractable Neuropathic pain Hyperlipidemia Carpal tunnel syndrome Cervical radiculopathy Depressive disorder Diverticulosis HTN (hypertension) Osteoarthritis Asthma Essential hypertension Low back pain Pre-diabetes Seasonal allergies GERD (gastroesophageal reflux disease) Post-COVID syndrome COPD (chronic obstructive pulmonary disease) Arthritis Anxiety Depression Hesitancy of micturition Moderate persistent asthma Surgical History History of carpal tunnel release Hx of eye surgery Hx of cataract extraction Hx of shoulder surgery History of carpal tunnel surgery of right wrist H/O colonoscopy History of total right knee replacement History of back surgery History of total left knee replacement (~06/2020) Family History Mother Heart disease Sister HTN (hypertension) Sister HTN (hypertension) Diabetes Maternal Grandmother Cervical cancer Social History Household Members: Spouse Housing: House Are you a primary continuum of care manager to a significant other at home: No Do you presently have visiting nurse or other home services: No Alcohol intake: never Comment: in bathroom, aware of trip hazard Patient Tobacco Use Status: Former Tobacco user Tobacco use type: Cigarette Second Hand Smoke Exposure: No Substance Use Type: Marijuana Advance Directives Date on File: 12/17/21 service: No Current occupational status: unemployed Current occupation: Right Handed Gender identity: Female Review of Systems Const All systems reviewed & are unremarkable except as noted in HPI and below Results Reviewed Results Reviewed: MR THORACIC w + wo CONTRAST 11/01/24 INDICATION: Spinal stenosis, thoracic region. Spondylosis, thoracolumbar region. TECHNIQUE: Unenhanced and enhanced multiplanar, multisequence MR imaging of the thoracic spine. Dotarem 15 mL was administered intravenously. No contrast waste documented. COMPARISON: None available. FINDINGS: Normal alignment is demonstrated. Vertebral heights are well maintained. Bone marrow signal is within normal limits, and no suspicious osseous lesion is identified. Thoracic cord demonstrates normal course, caliber, and signal characteristics. No epidural fluid collection or hematoma is identified. There is a stable anterior epidural enhancing T1 hypointense and T2 hyperintense lesion at T11 impressing upon the anterior aspect of the thecal sac and thoracic cord along with hypertrophic facet arthropathy and ligamentum flavum hypertrophy causing moderate T11 central canal stenosis. Neural foramina are patent throughout. Visualized chest and abdomen are grossly unremarkable. IMPRESSION: 1.There is a stable anterior epidural enhancing lesion at the level of T11 along with hypertrophic facet arthropathy and ligamentum flavum hypertrophy causing moderate T11 central canal stenosis. Imaging characteristics suggest either disc fragment in the epidural space versus a fibrous calcified lesion. 2.No focal disc herniation or exiting nerve root encroachment seen. MR SPINE LUMBAR w + wo CONTRAST 09/16/24 at [facility] INDICATION: Dorsalgia. Lower back pain intermittently radiating down right leg for two years. Additional History: Lumbar fusion five years ago. TECHNIQUE: Unenhanced and enhanced multiplanar, multisequence MR imaging of the lumbar spine. Dotarem 15 mL was administered intravenously. No contrast waste documented. COMPARISON: None Available. FINDINGS: Straightening of normal lumbar lordosis. Approximate 5 mm degenerative retrolisthesis of T12 on L1. Approximate 5 mm degenerative anterolisthesis of L2 on L3. Postoperative changes of L3, L4 and L5 fusion with bilateral pedicle screws L3-L4 and laminectomies at these levels. Loss of intervertebral disc space height throughout the remainder the examination with endplate Modic type II changes and facet arthrosis. Conus and cauda equina of normal appearance. The conus tip T12-L1. Question a disc protrusion and extrusion at the level of T11. This is only partially visualized on this lumbar examination. Question a moderate associated central stenosis and contribution to moderate LEFT foraminal narrowing. Examination through the T12-L1 intervertebral level revealing facet arthrosis. Posterior disc osteophyte. Approximate 5 mm degenerative retrolisthesis of T12 on L1. There is a moderate central stenosis. Bilateral lateral recess encroachment. Mild LEFT foraminal narrowing. Moderate RIGHT foraminal narrowing. Examination through the L1-L2 intervertebral level revealing facet arthrosis. Prominence of ligamentum flavum. Posterior disc osteophyte. Moderate central stenosis. Bilateral lateral recess encroachment. Mild bilateral foraminal narrowing. Examination through the L2-L3 intervertebral level revealing facet arthrosis. Prominence of the ligamentum flavum. Apparent RIGHT laminectomy. Mild central stenosis. Bilateral lateral recess encroachment. No significant foraminal narrowing. Examination through the fused L3-L4 intervertebral level without central stenosis or foraminal narrowing. Examination through the fused L4-L5 intervertebral level without central stenosis or significant foraminal narrowing. Examination through the fused L5-S1 intervertebral level without central stenosis or foraminal narrowing. IMPRESSION: Straightening of normal lumbar lordosis. Approximate 5 mm degenerative retrolisthesis of T12 on L1. Approximate 5 mm degenerative anterolisthesis of L2 on L3. Postoperative changes of L3, L4 and L5 fusion with bilateral pedicle screws L3 and L4 and laminectomies at these levels. Loss of intervertebral disc space height throughout the remainder the examination with endplate Modic type II changes and facet arthrosis. The conus tip T12-L1. Question a disc protrusion and extrusion at the level of T11. This is only partially visualized on this lumbar examination. Question a moderate associated central stenosis and contribution to moderate LEFT foraminal narrowing. Consider dedicated evaluation of the lower thoracic spine with and without the use of intravenous contrast. T12-L1 facet arthrosis. Posterior disc osteophyte. Approximate 5 mm degenerative retrolisthesis of T12 on L1. There is a moderate central stenosis. Bilateral lateral recess encroachment. Mild LEFT foraminal narrowing. Moderate RIGHT foraminal narrowing. L1-L2 facet arthrosis. Prominence of ligamentum flavum. Posterior disc osteophyte. Moderate central stenosis. Bilateral lateral recess encroachment. Mild bilateral foraminal narrowing. L2-L3 facet arthrosis. Prominence of the ligamentum flavum. Apparent RIGHT laminectomy. Mild central stenosis. No significant foraminal narrowing. Examination through the postoperative levels without central stenosis or significant foraminal narrowing. XR LUMBOSACRAL SPINE 03/07/25 CLINICAL INFORMATION: low back pain COMPARISON: 09/23/2024. TECHNIQUE: Three views of the lumbosacral spine. FINDINGS: Transitional lumbosacral anatomy present. There is a mild right convex scoliosis, apex at L3-4. There is straightening of the normal lordosis. There has been posterior fusion with transpedicular screws and posterior connecting rods at L3-4. There have been discectomies with placement of disc prosthesis at L3-4, and disc cages at L4-5 and L5-S1. The hardware is intact and appears well seated without definite loosening. Degenerative retrolisthesis of T12 on L1, and mild anterolisthesis of L1 on L2. Severe disc degeneration throughout the imaged spine. Sclerosis of the endplates present T11-12 and T12-L1. Multilevel facet degeneration throughout the lumbar region. IMPRESSION: 1. No acute findings of the lumbar spine. 2. Advanced spondylosis with postsurgical fusion of L3-S1. No hardware complication evident. 3. Advanced degenerative disc disease, most notable at L1-L3. Multilevel facet degeneration. 4. Overall no change from 09/23/2024. Assessment & Plan Assessment & Plan (1) Back pain: Code(s): M54.9 - Dorsalgia, unspecified Category: Medical (2) Lumbar post-laminectomy syndrome: Code(s): M96.1 - Postlaminectomy syndrome, not elsewhere classified Category: Medical (3) Lumbar spinal stenosis: Code(s): M48.061 - Spinal stenosis, lumbar region without neurogenic claudication Category: Medical (4) Back pain: Code(s): M54.9 - Dorsalgia, unspecified Category: Medical (5) Chronic low back pain: Code(s): M54.50 - Low back pain, unspecified; G89.29 - Other chronic pain Category: Medical (6) Spondylolisthesis of thoracolumbar region: Code(s): M43.15 - Spondylolisthesis, thoracolumbar region Category: Medical (7) Arachnoid cyst of spine: Code(s): G96.198 - Other disorders of meninges, not elsewhere classified Category: Medical Plan The patient will proceed with the scheduled neurosurgical evaluation at [facility] as planned for 03/14/25 to assess possible surgical options for her back pain. Current pain management includes diclofenac potassium, lidocaine patches and a Medrol pack to reduce inflammation and alleviate pain. Instructions on Medrol pack usage have been provided. The patient is advised against further opioid use unless necessary and should consult her primary care physician for opioid prescriptions. Francist reviewed and noted for recent script for morphine filled on 03/07/25 following ER visit. Continued follow-up with the Vascular specialist, Dr. Villalba, is planned to manage varicose vein issues. Patient is aware to call if pain worsens or if she develops any red flag symptoms to seek emergency care. Patient denies any cauda equina syndrome symptoms at this time. All questions and concerns have been answered and patient agreed with the plan. Follow up as needed. Patient was informed and verbally consented to the use of an ambient scribe for clinic note documentation during this visit. Medications: New methylprednisolone (Medrol (Titus)) PO PER PKG DIR 21 ea 0RF pain M48.061 - Spinal stenosis, lumbar region without neurogenic claudication, M96.1 - Postlaminectomy syndrome, not elsewhere classified lidocaine 5% (Lidoderm) 1 - 2 patches topical Q12H PRN 30 ea 0RF pain M54.9 - Dorsalgia, unspecified Changed From diclofenac potassium 50 mg PO BID M54.9 - Dorsalgia, unspecified, M96.1 - Postlaminectomy syndrome, not elsewhere classified To diclofenac potassium 50 mg PO BID PRN 60 tabs 1RF pain (scale score 7-10) M54.9 - Dorsalgia, unspecified, M96.1 - Postlaminectomy syndrome, not elsewhere classified Discontinued ibuprofen Discontinued Reason: Patient no longer taking 600 mg PO Q6H PRN 60 tabs 1RF pain G89.29 - Other chronic pain, M48.061 - Spinal stenosis, lumbar region without neurogenic claudication, M54.50 - Low back pain, unspecified Coding Level of Care Code Est Pt Level 4 (66469) Complex EM visit Add On G2211 Diagnoses Back pain M54.9 Lumbar post-laminectomy syndrome M96.1 Lumbar spinal stenosis M48.061 Chronic low back pain M54.50; G89.29 Spondylolisthesis of thoracolumbar region M43.15 Arachnoid cyst of spine G96.198
[2025-03-09 14:22] VITALS: BP 116/71; PULSE 58; O2SAT 97; BMI 29.0
== END 2025-03-09 14:39 | disposition home or self-care (01) ==
LOC: HO.PMC 14:17
PROVIDERS: PCP Internal Medicine; Visit Provider Nurse Practitioner Family
DX: M54.9 Dorsalgia, unspecified (principal); M96.1 Postlaminectomy syndrome, not elsewhere classified; M48.061 Spinal stenosis, lumbar region without neurogenic claudication; M54.50 Low back pain, unspecified; G89.29 Other chronic pain; M43.15 Spondylolisthesis, thoracolumbar region; G96.198 Other disorders of meninges, not elsewhere classified
CPT/HCPCS: 99214

== ENCOUNTER → 2025-03-09 14:17 | Outpatient (BNVA) | payer MEDICAID, SELFPAY | PROVIDERS: PCP Internal Medicine; Visit Provider Nurse Practitioner Family | DX: M96.1 Postlaminectomy syndrome, not elsewhere classified (principal); M48.061 Spinal stenosis, lumbar region without neurogenic claudication; M54.50 Low back pain, unspecified; G89.29 Other chronic pain; M43.15 Spondylolisthesis, thoracolumbar region; G96.198 Other disorders of meninges, not elsewhere classified | CPT/HCPCS: 99212 ==

== ENCOUNTER 2025-03-18 13:16 | Emergency (ER) | payer MEDICAID, SELFPAY ==
[2025-03-18] VITALS (15 sets, daily range): BP systolic 125–166; BP diastolic 58–79; PULSE 50–95; RESP 8–19; TEMP 36.6–37; O2SAT 86–99; BMI 26.6
--- NOTE | ~2025-03-18 | XR_ITS ---
CLINICAL HISTORY: s p shoulder reduction 3 view right shoulder Comparison: None Findings: Moderate degenerative change of the glenohumeral and acromioclavicular joints. No fracture or dislocation. No erosions. No radiopaque foreign body. IMPRESSION: Successful reduction of the previous right glenohumeral dislocation. This document has been electronically signed by: Riki Magana MD on 03/18/2025 16:30:00
--- NOTE | ~2025-03-18 | XR_ITS ---
CLINICAL HISTORY: R shoulder ?dislocation fall Radiographs of the right shoulder, 3 views Comparison: None Findings: Anterior glenohumeral joint dislocation. No identified fracture. Xqcz-wc-ehrccggu degenerative change. Bone mineralization is decreased. Soft tissue swelling. Impression: Anterior dislocation. This document has been electronically signed by: Christine Blood MD on 03/18/2025 13:50:05
--- NOTE | ~2025-03-18 | XR_ITS ---
CLINICAL HISTORY: fall, dislocation, ; neutral 1V per ordering provider to confirm/deny humeral fx b efore reducing shoulder. image copied to remove accidental N placed in anatomy on portable machine. unable to delete image from folder. Radiograph of the right humerus, single view Comparison: None Findings: Anterior glenohumeral joint dislocation. No fracture of the humerus. Uwbs-lv-daijyeln degenerative change. Bone mineralization is decreased. No soft tissue swelling. Impression: Intact humerus. Anterior glenohumeral joint dislocation. This document has been electronically signed by: Christine Blood MD on 03/18/2025 14:22:10
--- NOTE | 2025-03-18 13:20 | ED.UPPEXIN ---
HPI - Extremity Injury (Upper) General Chief Complaint: Fall Stated Complaint: r arm inj fall Time Seen by Provider: 03/18/25 13:25 Source: patient Mode of arrival: ambulatory Limitations: language barrier (Turkmen-speaking) History of Present Illness ED Provider: Chelsea Rogers PA-C HPI narrative: 59-year-old female with HLD, GERD, COPD, arthritis, anxiety, depression, cervical radiculopathy, presents to the emergency department after a fall onto outstretched hand. Patient states she tripped over her sandals causing her to fall and she caught herself on outstretched arms onto the floor. She denies head strike or LOC. Patient not on AC. denies chest pain, SOB, nausea, vomiting, headache, dizziness, lightheadedness MD complaint: injury to: right Onset (ago): hour(s) (1) Other Extremity Injury: right: shoulder Other injuries: none Handedness: right Place: home Severity: severe Severity scale (1-10): 10 Relieving factors: none Exacerbating factors: movement of extremity Context: fall (FOOSH) Related Data Home Medications ?Medication ?Instructions ?Recorded ?Confirmed hydrochlorothiazide 25 mg tablet 25 mg PO DAILY 12/03/21 01/13/25 montelukast 10 mg tablet 10 mg PO BEDTIME 12/03/21 01/13/25 omeprazole 20 mg capsule,delayed 20 mg PO DAILY 12/03/21 01/13/25 release zolpidem 10 mg tablet 10 mg PO BEDTIME PRN Insomnia 12/03/21 01/13/25 albuterol sulfate 2.5 mg/3 mL 2.5 mg inhalation Q6-8H PRN 12/10/21 01/13/25 (0.083 %) solution for nebulization Shortness Of Breath escitalopram oxalate 5 mg tablet 5 mg PO QAM 09/02/22 01/13/25 multivitamin 1 tab PO DAILY 01/20/24 01/13/25 acetaminophen 500 mg tablet 500 mg PO Q12H PRN pain 08/03/24 01/13/25 diphenhydramine HCl 25 mg capsule 25 - 50 mg PO BEDTIME 08/03/24 01/13/25 (Banophen) fluticasone propionate 50 2 spray intranasal BID 08/03/24 01/13/25 mcg/actuation nasal spray,suspension gabapentin 300 mg capsule 300 mg PO TID 08/03/24 01/13/25 omega 2-txd-bdd-fish oil 1,000 mg 1 cap PO DAILY 08/03/24 01/13/25 (120 mg-180 mg) capsule (Fish Oil) valacyclovir 1 gram tablet 2,000 mg PO BID 08/03/24 01/13/25 Previous Rx's ?Medication ?Instructions ?Recorded walker #1 ea 01/28/24 albuterol sulfate 90 mcg/actuation 2 puff inhalation Q4-6H PRN 09/19/24 aerosol inhaler shortness of breath or wheezing #8.5 grams naloxone 4 mg/actuation nasal 4 mg intranasal Q2M PRN opioid 10/20/24 spray (Narcan) overdose #2 ea fluticasone 500 mcg-salmeterol 50 1 ea inhalation BID #60 ea 12/01/24 mcg/dose blistr powdr for inhalation (Advair Diskus) acetaminophen 500 mg tablet 1,000 mg (2 x 500 mg) PO QID PRN 12/22/24 (Tylenol Extra Strength) pain #30 tabs tamsulosin 0.4 mg capsule 0.4 mg PO DAILY@1700 90 days #90 12/27/24 caps methocarbamol 750 mg tablet 750 mg PO Q8H 4 days #12 tabs 03/07/25 morphine 15 mg immediate release 15 mg PO Q8H PRN pain #7 tabs 03/07/25 tablet diclofenac potassium 50 mg tablet 50 mg PO BID PRN pain (scale score 03/09/25 7-10) #60 tabs lidocaine 5 % topical patch 1 - 2 patch topical Q12H PRN pain 03/09/25 (Lidoderm) #30 ea methylprednisolone 4 mg tablets in See Rx Instructions PO PER PKG DIR 03/09/25 a dose pack (Medrol (Titus)) pain #21 ea acetaminophen 500 mg tablet 500 mg PO Q6H PRN pain #30 tabs 03/18/25 (Tylenol Extra Strength) ibuprofen 200 mg capsule (Motrin 400 mg (2 x 200 mg) PO Q8H #30 caps 03/18/25 IB) Allergies Allergy/AdvReac Type Severity Reaction Status Date / Time No Known Allergies Allergy Verified 03/18/25 13:23 Review of Systems Review of Systems: CONST: Negative for fever, body aches and chills. HENT: Negative for neck pain/stiffness, headache, congestion, sore throat, swelling. EYES: Negative for discharge/pain or vision changes. RESP: Negative for cough/hemoptysis and shortness of breath. CV: Negative chest pain, difficulty breathing, palpitations. ABD: Negative pain, nausea, vomiting. : Negative increase frequency, dysuria, blood in urine or stool. MUSC: Negative for muscle aches, edema. Extremities: POS right shoulder pain after fall on outstretched hand SKIN: Negative rash, lesions/sores. NEURO: Negative headache, dizziness, weakness. FOR[facility]LY [facility], [facility] Past Medical History Attestation statement: The following information was validated with the patient. Source: old records reviewed, obtained from family and nursing notes reviewed Medical History Right-sided ischial pain Tubular adenoma of colon Hematuria Dysuria Overweight Varicose vein of leg Chronic tension-type headache, not intractable Neuropathic pain Hyperlipidemia Carpal tunnel syndrome Cervical radiculopathy Depressive disorder Diverticulosis HTN (hypertension) Osteoarthritis Asthma Essential hypertension Low back pain Pre-diabetes Seasonal allergies GERD (gastroesophageal reflux disease) Post-COVID syndrome COPD (chronic obstructive pulmonary disease) Arthritis Anxiety Depression Hesitancy of micturition Moderate persistent asthma Surgical History History of carpal tunnel release Hx of eye surgery Hx of cataract extraction Hx of shoulder surgery History of carpal tunnel surgery of right wrist H/O colonoscopy History of total right knee replacement History of back surgery History of total left knee replacement (~06/2020) Family History Family History Mother Heart disease Sister HTN (hypertension) Sister HTN (hypertension) Diabetes Maternal Grandmother Cervical cancer Social History Social History Household Members: Spouse Housing: House Are you a primary care worker to a significant other at home: No Do you presently have visiting nurse or other home services: No Unable to assess alcohol history related to: Unknown Alcohol intake: never Comment: in bathroom, aware of trip hazard Patient Tobacco Use Status: Former Tobacco user Tobacco use type: Cigarette Second Hand Smoke Exposure: No Substance Use Type: Marijuana Advance Directives Date on File: 12/17/21 service: No Current occupational status: unemployed Current occupation: Right Handed Gender identity: Female Physical Exam Vital Signs: Vital Signs: Last Vital Signs Temp 98.6 F 03/18/25 18:19 Pulse 70 03/18/25 18:19 Resp 13 03/18/25 18:19 BP 133/70 03/18/25 18:19 Pulse Ox 99 03/18/25 18:19 O2 Del Method Room Air 03/18/25 18:19 O2 Flow Rate 7 03/18/25 16:55 Oxygen Flow Rate 4 03/18/25 15:23 BMI result Body Mass Index 26.6 GENERAL APPEARANCE: ?AxOx4, in mild distress due to pain, HEENT: ?NC, AT. MMM. EOMI, clear conjunctiva, oropharynx clear. HEART:? Normal rate and regular rhythm, normal S1/S1, no m/r/g LUNGS:? CTAB, moving air well. No crackles or wheezes are heard. EXTREMITIES: ?Without cyanosis, clubbing or edema. R shoulder with anatomical deformity, humeral head palpated anteriorly. unable to assess ROM. NEUROLOGICAL: ?Grossly nonfocal. Alert and oriented, moving all 4 extremities. Observed to ambulate with normal gait. Skin: ?Warm and dry without any rash. Course Course Course Narrative: This is a Rapid Medical Exam performed in triage by Florence Galloway PA-C. Full HPI, ROS and PE to be performed by primary ED provider. 59 yo female with a past medical history asthma, oa, HTN, presenting to the ED c/o right shoulder pain s/p mechanical trip and fall [employer] onto right shoulder. Patient with chronic lower extremity weakness, was wearing poor slippers & fell. PE: + right shoulder appreciable deformity. Limited ROM. Neurovascularly intact distally. Plan: XR Medications Administered Discontinued Medications Generic Name Dose Route Start Last Admin Trade Name Freq PRN Reason Stop Dose Admin Hydromorphone HCl 1 mg 03/18/25 17:36 03/18/25 17:41 Hydromorphone Hcl 1 Mg/Ml Syringe IVPUSH 03/18/25 17:37 1 mg ONCE ONE Administration Protocol Acetaminophen 1,000 mg in 100 mls @ 400 mls/hr 03/18/25 17:36 03/18/25 17:57 Ofirmev IV 03/18/25 17:50 Infused ONCE ONE Infusion Morphine Sulfate 4 mg 03/18/25 14:13 03/18/25 14:26 Morphine Sulfate 4 Mg/Ml Cartridge IVPUSH 03/18/25 14:14 4 mg ONCE ONE Administration Protocol Propofol 100 mg 03/18/25 15:02 03/18/25 15:30 Propofol 200 Mg/20 Ml Vial IVPUSH 03/18/25 15:03 Not Given ONCE ONE Propofol 80 mg 03/18/25 15:52 03/18/25 15:25 Propofol 200 Mg/20 Ml Vial IVPUSH 03/18/25 15:53 80 mg ONCE ONE Administration Medical Decision Making Medical Decision Making MDM Narrative: 59-year-old female with HLD, GERD, COPD, arthritis, anxiety, depression, cervical radiculopathy, presents to the emergency department after a fall onto outstretched hand. Patient states she tripped over her sandals causing her to fall and she caught herself on outstretched arms onto the floor. She denies head strike or LOC. Patient not on AC. denies chest pain, SOB, nausea, vomiting, headache, dizziness, lightheadedness VSS, in moderate distress due to pain of the right shoulder, nontoxic appearing. On physical exam patient is holding her arm in slight abduction with external rotation, there is slight anatomical abnormality with loss of the normal shoulder contour, humeral head palpable anteriorly. There is a small green/yellow bruise over the deltoid. Mild pain to palpation over the distal humerus. No pain with palpation over scaphoid. No pain to palpation over right clavicle, no clavicle tenting. Radial pulses 2+ B/L. Shoulder x-ray reveals right anterior glenohumeral joint dislocation without fracture. Mild to moderate degenerative changes, bone materialization decreased, soft tissue swelling. X-ray of right humerus did not reveal any fracture. We will perform right shoulder reduction under conscious sedation of propofol with my attending Dr. Johnston. Patient counseled, consent for conscious sedation obtained. Patient and her at the bedside understands risks of procedure. Shoulder reduction successful with 80 mg of propofol. Patient maintained airway, no respiratory distress, tolerated procedure well. Is still experiencing moderate pain of the shoulder. Post-reduction x-ray reveals successful reduction. Patient counseled on pain control and urged to follow up with ortho to ensure improvement. Patient very tearful in the pain prior to discharge. Is requesting something for pain management. will give IV Tylenol and 1 mg Dilaudid for pain management. We will keep patient in department for 30 minutes after administration of medication to ensure her well-being. Patient re-evaluated feeling much better after being medicated with IV tylenol and IV 1mg dilaudid. Went over follow up instructions and strict return precautions for return to ED. Differential Diagnosis Differential Diagnoses: The differential diagnosis associated with the presentation includes Shoulder fracture Shoulder dislocation Shoulder strain Shoulder sprain Admission/Observation Consideration of admission/observation: Escalation of care including admission/observation considered Independent Interpretation I performed an independent interpretation of an: Plain X-Ray Interpretation: I independently reviewed the patient's x-rays and agree with the radiologist's findings Radiology Impression Discussion of test interpretation with radiology: I have reviewed the radiologist's reading. Radiologist Impression: Initial right shoulder x-ray Findings: Anterior glenohumeral joint dislocation. No identified fracture. [id number]-nz-[id number] degenerative change. Bone mineralization is decreased. Soft tissue swelling. Impression: Anterior dislocation. This document has been electronically signed by: Christine Blood MD on 03/18/2025 13:50:05 Humerus X-ray Findings: Anterior glenohumeral joint dislocation. No fracture of the humerus. Ddqq-us-[id number] degenerative change. Bone mineralization is decreased. No soft tissue swelling. Impression: Intact humerus. Anterior glenohumeral joint dislocation. This document has been electronically signed by: Christine Blood MD on 03/18/2025 14:22:10 Post reduction R shoulder Xray Findings: Moderate degenerative change of the glenohumeral and acromioclavicular joints. No fracture or dislocation. No erosions. No radiopaque foreign body. IMPRESSION: Successful reduction of the previous right glenohumeral dislocation. This document has been electronically signed by: Riki Magana MD on 03/18/2025 16:30:00 Dictated By: Riki Magana MD Signed By: <Electronically signed by Riki Magana MD in OV> Independent Historian Clinical information obtained from an independent historian. History obtained from or confirmed by: Spouse ( at bedside corroborating history) External Record Review External record reviewed: Inpatient record, Office record and Outpatient record Procedures Orthopedic Joint Reduction Joint #1: Time Out Performed: Yes Side: right Joint Reduction Location: shoulder Analgesia: procedural sedation (80 mg propofol) Shoulder Technique Used (if applicable): external rotation Technique used: direct manipulation Post-reduction neuro exam: intact Post-reduction vascular: intact Post Reduction X-Ray Obtained: Yes Post Reduction X-Ray Results: reduced Splint Applied: No (Right arm placed in a shoulder sling) Patient Tolerated Procedure: well Procedural Sedation Indication: fracture/dislocation reduction Presedation Evaluation: Patient is in moderate pain, overall healthy female with Mallampati score of 2, ASA Class: II (COPD) Mallampati Class: II Preparation: personnel monitor applied, pulse oximeter, capnometry used, supplemental O2 applied, reversal agents at bedside, suction/airway equipment at bedside and IV secured Patient Tolerated Procedure: well Complications: none Interventions: oxygen applied Critical Care Time Critical Care Time Critical Care Time: Yes Total Critical Care Time: 43 Attestation: I have personally provided 43 minutes of critical care time exclusive of time spent on separately billable procedures. Time includes review of lab data, radiology results, discussion with consultants, and monitoring for potential decompensation. Intervention performed as documented. Discharge Plan Discharge Clinical Impression: Anterior shoulder dislocation Patient Disposition: Home, Self-Care Instructions: Shoulder Dislocation (ED), How to Use a Sling (ED) Additional Instructions: You were evaluated in the ED today due to right shoulder pain after a fall. Your 1st shoulder x-ray revealed that you had an anterior dislocation of your shoulder. You underwent a shoulder reduction meaning we placed your shoulder back into its socket while you were under conscious sedation using 80 mg of propofol for sedation and pain management. You were also given 4 mg of IV morphine for pain management. You tolerated the reduction procedure well, with post reduction x-ray showing that your shoulder is within the socket and successfully reduced. You can take Tylenol and Motrin together every 6 hours for pain management. You will be prescribed 3 days of oral morphine for breakthrough pain, or every 8 hours. This medication is addicting, you should not drive or operate heavy machinery while using this medication. You should only take this medication when you were experiencing severe pain that is not managed by Tylenol and Motrin. Please keep your arm in the sling and do not remove until you follow up with ortho or you risk the joint slipping out of its socket again. You should follow up with our orthopedic group to ensure improvement. Please return to the emergency department if you have any worsening pain, unable to move the limb, decreased sensation of the limb, if the limb becomes dislocated again, fevers over 100.4?, chest pain, shortness of breath, or any new/worsening/concerning symptoms. Prescriptions: New ibuprofen [Motrin IB] 200 mg capsule 400 mg PO Q8H Qty: 30 0RF acetaminophen [Tylenol Extra Strength] 500 mg tablet 500 mg PO Q6H PRN (Reason: pain) Qty: 30 0RF No Action albuterol sulfate 90 mcg/actuation HFA aerosol inhaler 2 puff inhalation Q4-6H PRN (Reason: shortness of breath or wheezing) Qty: 8.5 11RF fluticasone propion-salmeterol [Advair Diskus] 500-50 mcg/dose blister with device 1 ea inhalation BID Qty: 60 6RF tamsulosin 0.4 mg capsule 0.4 mg PO DAILY@1700 90 Days Qty: 90 1RF albuterol sulfate 2.5 mg /3 mL (0.083 %) Solution For Nebulization 2.5 mg INHALATION Q6-8H PRN (Reason: Shortness Of Breath) valacyclovir 1 gram Tablet 2,000 mg PO BID acetaminophen 500 mg tablet 500 mg PO Q12H PRN (Reason: pain) diphenhydramine HCl [Banophen] 25 mg capsule 25 - 50 mg PO BEDTIME gabapentin 300 mg capsule 300 mg PO TID fluticasone propionate 50 mcg/actuation spray,suspension 2 spray intranasal BID omega 2-mpe-ioy-fish oil [Fish Oil] 1,000 mg (120 mg-180 mg) Capsule 1 cap PO DAILY methocarbamol 750 mg tablet 750 mg PO Q8H 4 Days Qty: 12 0RF morphine 15 mg tablet 15 mg PO Q8H PRN (Reason: pain) Qty: 7 0RF Rx Instructions: Partial Fill upon patient request. multivitamin Tablet 1 tab PO DAILY acetaminophen [Tylenol Extra Strength] 500 mg tablet 1,000 mg PO QID PRN (Reason: pain) Qty: 30 0RF escitalopram oxalate 5 mg tablet 5 mg PO QAM montelukast 10 mg tablet 10 mg PO BEDTIME omeprazole 20 mg capsule,delayed release(DR/EC) 20 mg PO DAILY zolpidem 10 mg tablet 10 mg PO BEDTIME PRN (Reason: Insomnia) hydrochlorothiazide 25 mg tablet 25 mg PO DAILY naloxone [Narcan] 4 mg/actuation spray,non-aerosol 4 mg intranasal Q2M PRN (Reason: opioid overdose) Qty: 2 0RF Rx Instructions: spray 1 dose into ONE nostril; alternate nostrils w each dose until help arrives diclofenac potassium 50 mg tablet 50 mg PO BID PRN (Reason: pain (scale score 7-10)) Qty: 60 1RF methylprednisolone [Medrol (Titus)] 4 mg tablets,dose pack See Rx Instructions PO PER PKG DIR Qty: 21 0RF Rx Instructions: PO PER PKG DIR lidocaine [Lidoderm] 5 % adhesive patch,medicated 1 - 2 patch topical Q12H PRN (Reason: pain) Qty: 30 0RF (DME) walker Misc See Rx Instructions .ROUTE .MEDSUPPLY Qty: 1 0RF Rx Instructions: Folding front wheeled walker Referrals: [facility] [place] [facility] [Provider Group] (shoulder dislocation, successfully reduced in department under conscious sedation) Interventions: ED Discharge Assessment Last Done: 03/18/25 18:19 Discharge Date/Time: 03/18/25 18:20 Print Language: Turkmen
--- OUTSIDE RECORDS SUMMARY | 2025-03-18 13:48 | XMS_ITS | Encounter Summary ---
Author Organization [facility] Address [address] [place] [address] Care Team Providers Care Channel Lip Stiffener Insoles Name Role Phone Ernie Merritt Primary Care Provider + Reason for Referral * Diagnostic Imaging (Routine) - Pending Review Specialty Diagnoses / Procedures Referred By Contac t Referred To Contact Diagnoses Chronic bilateral low back pain with bilateral sciatica Procedures DXA Axial and TBS Christopher Appiah MD [address] [place] [id number] Phone: tel: fax: Referral ID Status Reason Start Date Expiration Date V isits Requested Visits Authorized [id number] Pending Review 03/14/2025 09/13/2026 1 1 Reason for Visit * Consultation (Routine) - Pending Review Specialty Diagnoses / Procedures Referred By Contac t Referred To Contact Neurosurgery Diagnoses Chronic bilateral low back pain with bilateral sciatica 3 month return from 12/14/24 dx arachnoid cyst-T11 epidural lesion Procedures FOLLOW UP Ernie Merritt [address] [place] [address] Phone: tel: fax: Christopher Appiah MD [address] [place] [id number] Phone: tel: fax: Referral ID Status Reason Start Date Expiration Date V isits Requested Visits Authorized [id number] Pending Review 03/14/2025 09/13/2026 6 6 Encounter Details Date Type Department Care Team (Late st Contact Info) Description 03/14/2025 3:00 PM EDT Follow-Up [facility] [address] [place] [address] Christopher Appiah MD [address] [place] [address] Chronic bilateral low back pain with bilateral sciatica (Primary Dx) Social History Tobacco Use Types [...] AM EDT documented as of this encounter Progress Notes * Christopher Appiah MD - 03/14/2025 3:12 PM EDT CLINIC FOLLOW UP NOTE Subjective Miguelina Julien is a very pleasant 59-year-old Congolese-speaking female (exam done with machine whitener) who presents with a long history of multiple lower back surgeries and severe lower back pain and pain radiating down her legs. She also notes that her balance is quite poor and has been continuing to worsen. She has tried and failed all conservative measures including injections and physical therapy. 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 Severe T12 stenosis. Arachnoid cysts mid to upper thoracic spine. Assessment & Plan Miguelina Julien is a very pleasant 59-year-old Congolese-speaking female who presents with a long history of multiple lower back surgeries and severe lower back pain radiating down her legs with concordant balance issues. She has a severely degenerative spine with significant malalignment. I obtained a lateral standing scoliosis film today for consideration of surgical intervention. In addition we ordered an urgent DEXA scan to determine her osteoporosis status. Finally I will present her to our multidisciplinary spine conference to discuss surgical intervention which I do think will be a combination of a T10 to pelvis with several osteotomies. There may need to be a discussion of intradural ex ploration and multilevel decompression +/-BMP. Pending the results of this we will plan to scheduleher surgery. The patient is in understanding and agreement with this plan. I spent a total of 37 minutes on the date of encounter, which included: ?? Preparing to see the patient (e.g., review of test results) ?? Obtaining and/or reviewing separately obtained history ?? Performing a medically appropriate exam and/or evaluation ?? Counseling and educating the patient/family/caregiver ?? Ordering medications, tests, procedures ?? Documenting clinical information in the health record Christopher Appiah MD documented in this encounter Miscellaneous Notes * Addendum Note - Christopher Appiah MD - 03/14/2025 4:23 PM EDTAddended by: CHRISTOPHER APPIAH on: 03/14/2025 04:23 PM Modules accepted: Orders documented in this encounter Plan of Treatment Scheduled Orders Name Type Priority Associated Diagnoses Orde r Schedule DEXA Bone Density Axial and Peripheral Imaging Routine Chronic bilateral low back pain with bilateral sciatica Expected: 03/14/2025, Expires: 05/14/2026 DXA Axial and TBS Imaging Routine Chronic bilateral low back pain with bilateral sciatica Expected: 03/14/2025, Expires: 04/13/2026 documented as of this encounter Visit Diagnoses Diagnosis Chronic bilateral low back pain with bilateral sciatica- Primary documented in this encounter Care Teams Channel Lip Stiffener Insoles Relationship Specialty Start Date End Date Ernie Merritt [address] [place] [address] PCP - General Internal Medicine 11/29/24 documented as of this encounter
[2025-03-18] MEDS: Morphine Sulfate 4 MG/ML CARTRIDGE IVPUSH (14:26)
--- NOTE | 2025-03-18 14:29 | PC.NURSE ---
patient medicated per provider. effectiveness pending.
[2025-03-18] MEDS: propofoL 200 MG/20 ML VIAL 80 MG IVPUSH (15:25)
--- NOTE | 2025-03-18 16:00 | PC.NURSE ---
late entry: patient moved to ED4 for conscious sedation of dislocated right shoulder. patient changed into hospital attire. placed on tele displaying nsr w/ frequent PVCs. vss and up to date. initially on RA w/o difficulty. ambu bag in place. suction placed bedside for safety precautions. pt also placed on capnography. RN x 2, PA x 2, MD bedside for assistance. time out initiated at 1523. patient placed on 4L via NC for safety precautions. 80mg of propofol administered by MD at 1525 w/ good effect. pt then became unarousable to verbal/physical stimuli. shoulder reduction completed. pt then placed on 7L via NC for a brief period of time after she became hypoxic - positive effect noted w/ supplemental O2/jaw thrusts that were performed by MD. procedural end time completed at 1528. repeat shoulder XR completed s/p procedure. patient then became responsive to verbal stimuli. awake but confused. still unable to answer questions/follow commands appropriately. patient eventually titrated to RA w/ good effect. no apparent respiratory distress/compromise noted once titrated to RA. able to manage secretions on her own. maintaining airway w/o difficulty. no sob/wob noted. respirations even/unlabored. RUE placed in sling to promote comfort. bedside for support. plan of care ongoing. call gutierrez placed within reach.
--- NOTE | 2025-03-18 17:10 | PC.NURSE ---
pt continues to remain alert and oriented x 4. vss and up to date. nsr on the classroom monitor. pt remains in no apparent respiratory distress. pt able to maintain airway independently w/o difficulty. managing secretions on her own. no sob/wob noted. respirations even/unlabored. plan of care ongoing. call gutierrez placed within reach.
[2025-03-18] MEDS: HYDROmorphone HCl 1 MG/ML SYRINGE IVPUSH (17:41)
[2025-03-18] MEDS: Acetaminophen 1,000 MG/100 ML PIGGYBACK 400 MG IV (17:41)
--- NOTE | 2025-03-18 17:41 | PC.NURSE ---
pt up for discharge but still verbalizing 10/10 pain in right shoulder. provider notified/aware. pt medicated per provider order. effectiveness pending.
--- NOTE | 2025-03-18 18:05 | PC.NURSE ---
discharge instructions discussed w/ patient as well as patient's prior to d/c.
== END 2025-03-18 18:20 | disposition home or self-care (01) ==
PROVIDERS: Emergency Provider Emergency Medicine; PCP Internal Medicine
DX: S43.004A Unspecified dislocation of right shoulder joint, initial encounter (principal); W19.XXXA Unspecified fall, initial encounter; Y93.9 Activity, unspecified; Y92.9 Unspecified place or not applicable; Y99.9 Unspecified external cause status; I10 Essential (primary) hypertension; Z79.899 Other long term (current) drug therapy
CPT/HCPCS: 73030; 73060; 96365; 96375; 99285; J0131; J1171; J2270; J2704

== ENCOUNTER → 2025-03-18 13:20 | Outpatient (BNV) | payer MEDICAID, SELFPAY | PROVIDERS: Emergency Provider Emergency Medicine; PCP Internal Medicine; Visit Provider Radiology Diagnostic Radiology | DX: S43.011A Anterior subluxation of right humerus, initial encounter (principal) | CPT/HCPCS: 73030; 73060 ==

== ENCOUNTER 2025-03-27 13:04 | Outpatient (AMB) | payer MEDICAID, SELFPAY ==
--- NOTE | 2025-03-27 13:09 | MHC.OFFVIS ---
Vital Signs 03/27/25 13:15 Height 5 ft 3 in Weight 164 lb BMI 29.0 Handedness Right Intake Visit Reasons: OV- shoulder dislocation Intake Note: Miguelina is a 59 year old right hand dominant female who presents today with her for an ER follow up of right shoulder dislocation,DOI 03/18/25. Patient was seen at [facility] after a fall onto an outstretched arm. X-rays were taken, she was placed in a sling and referred to orthopedics. Patient reports she is not having much pain in her shoulder. She notices that her bicep feels very sore and she has some bruising. Patient has been taking some pain medication from what the ED has given her which helped. IMPRESSION: Successful reduction of the previous right glenohumeral dislocation. Allergies No Known Allergies Allergy (Verified 03/27/25 13:15) Medication List - Last Reconciled 03/27/25 by Fatmata Whitehead PA-C acetaminophen 500 mg PO Q12H PRN acetaminophen (Tylenol Extra Strength) 1,000 mg (2 x 500 mg) PO QID PRN acetaminophen (Tylenol Extra Strength) 500 mg PO Q6H PRN albuterol sulfate 2.5 mg inhalation Q6-8H PRN albuterol sulfate 90 mcg/actuation 2 puffs inhalation Q4-6H PRN diclofenac potassium 50 mg PO BID PRN diphenhydramine HCl (Banophen) 25 - 50 mg PO BEDTIME escitalopram oxalate 5 mg PO QAM fluticasone propion-salmeterol 500-50 mcg/dose (Advair Diskus) 1 ea inhalation BID fluticasone propionate 50 mcg/actuation 2 sprays intranasal BID gabapentin 300 mg PO TID hydrochlorothiazide 25 mg PO DAILY ibuprofen (Motrin IB) 400 mg (2 x 200 mg) PO Q8H lidocaine 5% (Lidoderm) 1 - 2 patches topical Q12H PRN methocarbamol 750 mg PO Q8H 4 days methylprednisolone (Medrol (Titus)) PO PER PKG DIR montelukast 10 mg PO BEDTIME morphine 15 mg PO Q8H PRN multivitamin 1 tab PO DAILY naloxone 4 mg/actuation (Narcan) 4 mg intranasal Q2M PRN omega 5-rgz-gfs-fish oil 1,000 (120-180) mg (Fish Oil) 1 cap PO DAILY omeprazole 20 mg PO DAILY tamsulosin 0.4 mg PO DAILY@1700 90 days valacyclovir 2,000 mg PO BID walker Folding front wheeled walker zolpidem 10 mg PO BEDTIME PRN HPI HPI OV- shoulder dislocation: Details: 59-year-old female presents to the office today for an injury she sustained to her right shoulder on 03/18/2025. She states she was walking when she tripped over her shoes and fell landing on her right arm. Immediately she noticed abnormality to the right shoulder with pain and was seen in the emergency department where x-rays confirmed a dislocation of the right shoulder. The shoulder was reduced in the emergency department and she was placed in a sling and referred to our office for ortho eval. We should be noted at baseline the patient has generalized lower extremity weakness and is being treated for low back pathology. Recently had an MRI and is being referred to [facility] to further evaluate the extent of her generalized lower extremity weakness. [facility] Medical History Right-sided ischial pain Tubular adenoma of colon Hematuria Dysuria Overweight Varicose vein of leg Chronic tension-type headache, not intractable Neuropathic pain Hyperlipidemia Carpal tunnel syndrome Cervical radiculopathy Depressive disorder Diverticulosis HTN (hypertension) Osteoarthritis Asthma Essential hypertension Low back pain Pre-diabetes Seasonal allergies GERD (gastroesophageal reflux disease) Post-COVID syndrome COPD (chronic obstructive pulmonary disease) Arthritis Anxiety Depression Hesitancy of micturition Moderate persistent asthma Surgical History History of carpal tunnel release Hx of eye surgery Hx of cataract extraction Hx of shoulder surgery History of carpal tunnel surgery of right wrist H/O colonoscopy History of total right knee replacement History of back surgery History of total left knee replacement (~06/2020) Family History Mother Heart disease Sister HTN (hypertension) Sister HTN (hypertension) Diabetes Maternal Grandmother Cervical cancer Social History Household Members: Spouse Housing: House Are you a primary point of care specialist to a significant other at home: No Do you presently have visiting nurse or other home services: No Unable to assess alcohol history related to: Unknown Alcohol intake: never Comment: in bathroom, aware of trip hazard Patient Tobacco Use Status: Former Tobacco user Tobacco use type: Cigarette Second Hand Smoke Exposure: No Substance Use Type: Marijuana Advance Directives Date on File: 12/17/21 service: No Current occupational status: unemployed Current occupation: Right Handed Gender identity: Female Review of Systems Const All systems reviewed & are unremarkable except as noted in HPI and below Physical Exam Vital Signs: BMI result Body Mass Index 29.0 Extrem Other: Right shoulder is normal to inspection. She can forward flex to 115 degrees. External rotation to 45 degrees. She can internally rotate to back pocket. Mild discomfort with rotator cuff strength testing however she is able to activate the rotator cuff. Assessment & Plan Assessment & Plan (1) Dislocation of right shoulder joint: Code(s): S43.004A - Unspecified dislocation of right shoulder joint, initial encounter Category: Medical Plan: She will discontinue the use of the sling. She can increase activities as tolerated. I stressed the importance of working with physical therapy for range of motion periscapular stabilization along with rotator cuff strengthening exercises. Given her generalized weakness in the lower extremities and difficulty with ambulation on her own she primarily uses a wheelchair to get around making her homebound at this time. I did place referral for VNA services to come to her house for therapy evaluation and treatment. If symptoms persist worsen or there is any concerns she will contact our office otherwise follow up as needed. Orders: Referrals [facility] Referral S43.004A - Unspecified dislocation of right shoulder joint, initial encounter Coding Level of Care Code Est Pt Level 3 (64546) Complex EM visit Add On G2211 Diagnoses Dislocation of right shoulder joint S43.004A
[2025-03-27 13:15] VITALS: BMI 29.0
--- OUTSIDE RECORDS SUMMARY | 2025-03-27 14:30 | XMS_ITS | Encounter Summary ---
Author Organization [employer] Address [address] [place] [address] [address] [place] [address] Care Team Providers Care Mortgage Loan Coordinator Name Role Phone Ernie Noriega MD Primary Care Provide r Reason for Visit * Reason Onset Date Comments Med Refill 03/15/2024 Encounter Details Date Type Department Care Team ([facility] st Contact Info) Description 03/15/2024 Refill [facility] [address] [place] [address] Ofelia Melgar MD [address] [place] [address] Chronic midline low back pain without sciatica; [...] 2:15 PM EDT Office Visit [facility] [address] [place] [address] Ernie Noriega MD [address] [place] [address] documented as of this encounter Visit Diagnoses Diagnosis Chronic midline low back pain without sciatica Cervical radiculopathy Brachial neuritis or radiculitis nos documented in this encounter Additional Health Concerns Assessment Noted Time PHQ-9 Depression Total Score: 2 01/21/20 24 1:25 PM EDT documented as of this encounter Care Teams Mortgage Loan Coordinator Relationship Specialty Start Date End Date Ernie Noriega MD [address] [place] [address] PCP - General Internal Medicine 08/25/19 documented as of this encounter
== END 2025-03-27 13:44 | disposition home or self-care (01) ==
LOC: HO.HOS 13:04
PROVIDERS: PCP Internal Medicine; Visit Provider Physician Assistant
DX: S43.004A Unspecified dislocation of right shoulder joint, initial encounter (principal)
CPT/HCPCS: 99213

== ENCOUNTER → 2025-03-27 13:04 | Outpatient (BNVA) | payer MEDICAID, SELFPAY | PROVIDERS: PCP Internal Medicine; Visit Provider Physician Assistant | DX: M25.511 Pain in right shoulder (principal); S43.004A Unspecified dislocation of right shoulder joint, initial encounter | CPT/HCPCS: 99212 ==

== ENCOUNTER 2025-04-04 10:48 | Outpatient (REF) | payer MEDICAID, SELFPAY ==
--- NOTE | ~2025-04-04 | XR_ITS ---
EXAMINATION: XR FOOT, RIGHT CLINICAL INFORMATION: right foot pain COMPARISON: None available. TECHNIQUE: AP, lateral, and oblique views of the right foot. FINDINGS: There is mild asymmetric narrowing of the first metatarsophalangeal joint with small marginal osteophytes. There is a bipartite medial sesamoid. There is a bony spur at the base of the fifth metatarsal. The calcaneal enthesophyte at the distal Achilles insertion. XR/XR foot RT min 3V IMPRESSION: Mild first MTP joint osteoarthritis. Electronically signed by: Preston Bernal MD 04/04/2025 11:57 AM EDT
--- OUTSIDE RECORDS SUMMARY | 2025-04-04 12:11 | XMS_ITS | Encounter Summary ---
Author Organization [employer] Address [address] [place] [address] [address] [place] [address] Care Team Providers Care Orthopedic Physical Therapist Name Role Phone Ernie Noriega MD Primary Care Provide r Reason for Visit * Reason Onset Date Comments Med Refill 03/15/2024 Encounter Details Date Type Department Care Team ([facility] st Contact Info) Description 03/15/2024 Refill [facility] [address] [place] [address] Ofelia Melgar MD [address] [place] [address] Chronic midline low back pain without sciatica; [...] Care Team (Late st Contact Info) Description 05/09/2025 1:00 PM EDT Office Visit [facility] [address] [place] [address] Ernie Noriega MD [address] [place] [address] documented as of this encounter Visit Diagnoses Diagnosis Chronic midline low back pain without sciatica Cervical radiculopathy Brachial neuritis or radiculitis nos documented in this encounter Additional Health Concerns Assessment Noted Time PHQ-9 Depression Total Score: 2 01/21/20 24 1:25 PM EDT documented as of this encounter Care Teams Orthopedic Physical Therapist Relationship Specialty Start Date End Date Ernie Noriega MD [address] [place] [address] PCP - General Internal Medicine 08/25/19 documented as of this encounter
== END 2025-04-04 10:49 | disposition home or self-care (01) ==
LOC: HO.HHCX 10:48
PROVIDERS: PCP Internal Medicine; Visit Provider Internal Medicine
DX: M79.671 Pain in right foot (principal)
CPT/HCPCS: 73630

== ENCOUNTER → 2025-04-04 10:58 | Outpatient (BNV) | payer MEDICAID, SELFPAY | PROVIDERS: PCP Internal Medicine; Visit Provider Radiology Diagnostic Radiology | DX: M79.671 Pain in right foot (principal) | CPT/HCPCS: 73630 ==

== ENCOUNTER 2025-04-06 14:08 | Outpatient (AMB) | payer MEDICAID, SELFPAY ==
--- NOTE | 2025-04-06 14:27 | A.OFFVIS_ITS ---
Vital Signs 04/06/25 14:28 Height 5 ft 3 in Weight 164 lb BMI 29.0 Intake Visit Reasons: OV - right knee pain, DOI 03/18/25 Intake Note: Miguelina is a 59 year old female who presents today for a evaluation of her right knee pain, DOI 03/18/25. Patient had a right knee TKA revision on 02/03/24 with NE. Patient reports that she had a fall and she hurt both of her knees but the right knee is worse. Senior Developer Required: Yes Senior Developer Services: Senior Developer Present Senior Developer Name: Deanne YOVANI, NOLA Allergies No Known Allergies Allergy (Verified 04/06/25 14:30) HPI HPI OV - right knee pain, DOI 03/18/25: Details: Ms. Julien is a 59-year-old female who presents to the office today for right knee pain status post a fall on 03/18/2025 landing directly onto the right knee. She is status post right total knee arthroplasty in 11/12/2015. She later underwent a patellar resurfacing with Dr. Taylor on 02/03/2024. Patient has been ambulating with pain after the fall. She states that she fell because she is having difficulties with her lower back causing numbness and tingling to bilateral lower extremities. She has seen a neurosurgeon for this and is preparing to undergo surgery. Additionally, she has pain in the right foot due to osteoarthritis at the 1st MTP joint. After the fall she did notice bruising on bilateral knees. [facility] Medical History Right-sided ischial pain Tubular adenoma of colon Hematuria Dysuria Overweight Varicose vein of leg Chronic tension-type headache, not intractable Neuropathic pain Hyperlipidemia Carpal tunnel syndrome Cervical radiculopathy Depressive disorder Diverticulosis HTN (hypertension) Osteoarthritis Asthma Essential hypertension Low back pain Pre-diabetes Seasonal allergies GERD (gastroesophageal reflux disease) Post-COVID syndrome COPD (chronic obstructive pulmonary disease) Arthritis Anxiety Depression Hesitancy of micturition Moderate persistent asthma Surgical History History of carpal tunnel release Hx of eye surgery Hx of cataract extraction Hx of shoulder surgery History of carpal tunnel surgery of right wrist H/O colonoscopy History of total right knee replacement History of back surgery History of total left knee replacement (~06/2020) Family History Mother Heart disease Sister HTN (hypertension) Sister HTN (hypertension) Diabetes Maternal Grandmother Cervical cancer Social History Household Members: Spouse Housing: House Are you a primary outdoor emergency care technician to a significant other at home: No Do you presently have visiting nurse or other home services: No Unable to assess alcohol history related to: Unknown Alcohol intake: never Comment: in bathroom, aware of trip hazard Patient Tobacco Use Status: Former Tobacco user Tobacco use type: Cigarette Second Hand Smoke Exposure: No Substance Use Type: Marijuana Advance Directives Date on File: 12/17/21 service: No Current occupational status: unemployed Current occupation: Right Handed Gender identity: Female Review of Systems Const All systems reviewed & are unremarkable except as noted in HPI and below Physical Exam Vital Signs: BMI result Body Mass Index 29.0 Const General: cooperative, healthy appearing and no acute distress Resp Effort & Inspection: normal respiratory effort and able to speak in complete sentences Extrem Other: Right knee resolving ecchymosis over the anterior aspect of the patella. No breaks in the skin. No surrounding erythema or drainage. No signs of infection. Mild effusion. Patient is able to demonstrate straight leg raise. No palpable defect at the quad tendon insertion. She has good strength with resisted knee extension and flexion. No palpable defect at the patellar tendon insertion. NVI. Assessment & Plan Assessment & Plan (1) History of total right knee replacement: Comment: 2015 Code(s): Z96.651 - Presence of right artificial knee joint Category: Surgical (2) Right knee pain: Code(s): M25.561 - Pain in right knee Category: Medical (3) Contusion of right knee: Code(s): S80.01XA - Contusion of right knee, initial encounter Category: Medical Plan Ms. Julien is a 59-year-old female who presents to the office today for right knee pain status post a fall on 03/18/2025 landing directly onto the right knee. She is status post right total knee arthroplasty in 11/12/2015. She later underwent a patellar resurfacing with Dr. Taylor on 02/03/2024. Patient has been ambulating with pain after the fall. She states that she fell because she is having difficulties with her lower back causing numbness and tingling to bilateral lower extremities. She has seen a neurosurgeon for this and is preparing to undergo surgery. Additionally, she has pain in the right foot due to osteoarthritis at the 1st MTP joint. After the fall she did notice bruising on bilateral knees. While in the office today repeat x-rays were obtained of the right knee to ensure the integrity of the total knee arthroplasty. I do not see any evidence of periprosthetic fracture on x-ray. Of note, there is redemonstration of a prior fracture of the distal pole of the patella. This is noted on x-ray from 08/29/2024. We will continue to monitor this patient for resolution of symptoms. Should she continue to have right knee pain or concerns she will contact our office for immediate follow-up. Otherwise she will follow up PRN. Orders: Orders XR knee RT 3V 04/06/25 M25.569 - Pain in unspecified knee Coding Level of Care Code Est Pt Level 3 (39367) Diagnoses History of total right knee replacement Z96.651 Right knee pain M25.561 Contusion of right knee S80.01XA
[2025-04-06 14:28] VITALS: BMI 29.0
--- OUTSIDE RECORDS SUMMARY | 2025-04-06 17:06 | XMS_ITS | Encounter Summary ---
Author Organization [employer] Address [address] [facility] [address] [place] [address] Care Team Providers Care Burring Machine Operator Name Role Phone Ernie Noriega MD Primary Care Provide r Reason for Visit * Reason Onset Date Comments Med Refill 03/15/2024 Encounter Details Date Type Department Care Team (Late st Contact Info) Description 03/15/2024 Refill [facility] [address] [place] [address] Ofelia Melgar MD [address] [place] [address] Chronic midline low back pain without sciatica; [...] Description 05/09/2025 1:00 PM EDT Office Visit [facility] [address] [place] [address] Ernie Noriega MD [address] [place] [address] documented as of this encounter Visit Diagnoses Diagnosis Chronic midline low back pain without sciatica Cervical radiculopathy Brachial neuritis or radiculitis nos documented in this encounter Additional Health Concerns Assessment Noted Time PHQ-9 Depression Total Score: 2 01/21/20 24 1:25 PM EDT documented as of this encounter Care Teams Burring Machine Operator Relationship Specialty Start Date End Date Ernie Noriega MD [address] [place] [address] PCP - General Internal Medicine 08/25/19 documented as of this encounter
== END 2025-04-06 15:01 | disposition home or self-care (01) ==
LOC: HO.HOS 14:09
PROVIDERS: PCP Internal Medicine; Visit Provider Physician Assistant
DX: M25.561 Pain in right knee (principal); Z96.651 Presence of right artificial knee joint; S80.01XA Contusion of right knee, initial encounter
CPT/HCPCS: 99213

== ENCOUNTER 2025-04-06 14:08 | Outpatient (REF) | payer MEDICAID, SELFPAY ==
--- NOTE | ~2025-04-06 | XR_ITS ---
CLINICAL HISTORY: M25.569 - Pain in unspecified knee Exam: Right knee three views Comparison: None Findings: Likely acute comminuted displaced fracture of patella lower pole, 7 mm posterior displacement of the dominant distal fragment, neighboring infrapatellar soft tissue swelling. Status post total knee arthroplasty, intact hardware without loosening. Loose bodies posteriorly. No dislocation. Impression: Acute comminuted displaced fracture of patellar lower pole, neighboring soft tissue swelling. This document has been electronically signed by: Christie Fernandez MD on 04/17/2025 16:00:56
== END 2025-04-06 14:09 | disposition home or self-care (01) ==
LOC: HO.HOSX 14:08
PROVIDERS: PCP Internal Medicine; Visit Provider Physician Assistant
DX: S80.01XA Contusion of right knee, initial encounter (principal); Z96.651 Presence of right artificial knee joint
CPT/HCPCS: 73562; 99212

== ENCOUNTER → 2025-04-06 14:34 | Outpatient (BNV) | payer MEDICAID, SELFPAY | PROVIDERS: PCP Internal Medicine; Visit Provider Radiology Diagnostic Radiology | DX: S82.041A Displaced comminuted fracture of right patella, initial encounter for closed fracture (principal) | CPT/HCPCS: 73562 ==

== ENCOUNTER 2025-04-27 11:40 | Outpatient (AMB) | payer MEDICAID, SELFPAY ==
--- OUTSIDE RECORDS SUMMARY | 2024-02-03 04:40 | XMS_ITS ---
Author Organization [facility] Address [address] [place] [address] Care Team Providers Care Internal Audit Senior Manager Name Role Phone Milton Ro MD, Ernie Primary Care Provide Rodrick Rose [phone] REASON FOR VISIT screening Encounters Encounter Location Date Provider Diagnosis [facility] [place] Outpatient [address] [place], [place] [phone] 02/03/2024 Rodrick Millan Plan Of Treatment No Information Progress Notes * ISHMAEL HINOJOSADOB: 3 (60 yo F)Acc No.[id number]:02/03/2024 COLON WITH MAC Patient: ISHMAEL PORTILLO Provider: Dane Millan MD :1965 A ge:58 Y S ex:Female Date:02/03/2024 Address:[address] [place] [address] [facility] Pcp:Ernie bonilla MD Subjective: * Chief Complaints: [...] 02/03/2024 Generated for Printi ng/Faxing/eTransmitting on: 0 04/27/2025 12:32 PM EDT
--- NOTE | 2025-04-26 22:13 | A.OFFVIS_ITS ---
Intake Visit Reasons: FU voiding dysfunction, UTI Intake Note: Patient presents today for a 7w follow up/UTI/UA Urology Meds- Tamsulosin Allergies to Antibiotic:No Known Allergies Blood Thinner:None PVR:0ml Accompanied by: Self / Same As Patient Allergies No Known Allergies Allergy (Verified 04/27/25 11:52) Medication List - Last Reconciled 04/27/25 by Charissa Hurd MD acetaminophen 500 mg PO Q12H PRN acetaminophen (Tylenol Extra Strength) 1,000 mg (2 x 500 mg) PO QID PRN acetaminophen (Tylenol Extra Strength) 500 mg PO Q6H PRN albuterol sulfate 2.5 mg inhalation Q6-8H PRN albuterol sulfate 90 mcg/actuation 2 puffs inhalation Q4-6H PRN bethanechol chloride 25 mg PO TID diclofenac potassium 50 mg PO BID PRN diphenhydramine HCl (Banophen) 25 - 50 mg PO BEDTIME escitalopram oxalate 5 mg PO QAM fluticasone propion-salmeterol 500-50 mcg/dose (Advair Diskus) 1 ea inhalation BID fluticasone propionate 50 mcg/actuation 2 sprays intranasal BID gabapentin 300 mg PO TID hydrochlorothiazide 25 mg PO DAILY ibuprofen (Motrin IB) 400 mg (2 x 200 mg) PO Q8H lidocaine 5% (Lidoderm) 1 - 2 patches topical Q12H PRN methylprednisolone (Medrol (Titus)) PO PER PKG DIR montelukast 10 mg PO BEDTIME morphine 15 mg PO Q8H PRN multivitamin 1 tab PO DAILY naloxone 4 mg/actuation (Narcan) 4 mg intranasal Q2M PRN omega 4-agm-xxp-fish oil 1,000 (120-180) mg (Fish Oil) 1 cap PO DAILY omeprazole 20 mg PO DAILY sulfamethoxazole-trimethoprim 800-160 mg (Bactrim DS) 1 tab PO BID tamsulosin 0.4 mg PO DAILY@1700 90 days valacyclovir 2,000 mg PO BID walker Folding front wheeled walker zolpidem 10 mg PO BEDTIME PRN HPI Comments Details: 04/27/25-- LV--- 08/05/24 Miguelina is a 59-year-old female who presents today to the office for a follow- up. diplomatic interpreter/translator declined. Patient's interprets for her today. She is followed for lower urinary tract symptoms of voiding dysfunction, hesitancy, urgency and slowing of urinary stream. Comorbidity chronic low back pain.? History of back surgery several years ago.She has been on Flomax 0.4 mg daily to bid, She was on bethanechol in the past which was d/c'd. Urinalysis nitrite positive. I will send urine for culture. The patient states she is having to push more to urinate I will restart bethanechol 25 mg t.i.d.. Antibiotic sent to pharmacy pending urine culture. Continue tamsulosin b.i.d. 08/05/24--Miguelina is a 59-year-old female who presents today to the office for a follow-up. She is followed today for voiding dysfunction and incomplete bladder emptying. She has been on Flomax 0.4 mg daily to bid, She was on bethanechol in the past which has been d/c'd. Patient states that she goes to bathroom frequently during the day time, and infrequently she may leak urine. She does consume 3 cups of coffee and she is on HCTZ diuretic medication. I discussed with the patient that this will contribute her going more frequently to the bathroom. I discussed to avoid dietary bladder irritants to help with her symptoms of urinary urgency. Comorbidity chronic low back pain.? History of back surgery several years ago. h/o lead placement trial for a back stimulator that was unsuccessful --she had significant pain after the lead was placed so it was removed has been on tramadol and gabapentin for pain. previous discussion regarding causes for her voiding dysfunction may be multifactorial; Nerve related, bladder muscle hypo contractility versus bladder outlet dysfunction. Tx options discussed included pelvic floor physical therapy.? [facility] Medical History Right-sided ischial pain Tubular adenoma of colon Hematuria Dysuria Overweight Varicose vein of leg Chronic tension-type headache, not intractable Neuropathic pain Hyperlipidemia Carpal tunnel syndrome Cervical radiculopathy Depressive disorder Diverticulosis HTN (hypertension) Osteoarthritis Asthma Essential hypertension Low back pain Pre-diabetes Seasonal allergies GERD (gastroesophageal reflux disease) Post-COVID syndrome COPD (chronic obstructive pulmonary disease) Arthritis Anxiety Depression Hesitancy of micturition Moderate persistent asthma Surgical History History of carpal tunnel release Hx of eye surgery Hx of cataract extraction Hx of shoulder surgery History of carpal tunnel surgery of right wrist H/O colonoscopy History of total right knee replacement History of back surgery History of total left knee replacement (~06/2020) Family History Mother Heart disease Sister HTN (hypertension) Sister HTN (hypertension) Diabetes Maternal Grandmother Cervical cancer Social History Household Members: Spouse Housing: House Are you a primary senior care assistant to a significant other at home: No Do you presently have visiting nurse or other home services: No Unable to assess alcohol history related to: Unknown Alcohol intake: never Comment: in bathroom, aware of trip hazard Patient Tobacco Use Status: Former Tobacco user Tobacco use type: Cigarette Second Hand Smoke Exposure: No Substance Use Type: Marijuana Advance Directives Date on File: 12/17/21 service: No Current occupational status: unemployed Current occupation: Right Handed Gender identity: Female Review of Systems Const All systems reviewed & are unremarkable except as noted in HPI and below Reports no additional complaints Eyes Reports no additional complaints ENT Reports no additional complaints Card Reports no additional complaints Resp Reports no additional complaints GI Reports no additional complaints Reports as per HPI Musc Reports no additional complaints Skin/Breast Reports system reviewed and no additional complaints, except as documented Neuro Reports no additional complaints Psych Reports no additional complaints Endo Reports no additional complaints Darrian/Lymph Reports no additional complaints Aller/Immun Reports no additional complaints Results AMB Urinalysis, Automated UA Leukoctes 15 Anand/uL Last Edit by Charla Roberson on 04/27/25 13:46 UA Nitrite Negative Last Edit by Charla Roberson on 04/27/25 13:46 UA Urobilinogen 17 mg/dL Last Edit by Charla Roberson on 04/27/25 13:46 UA Protein 1 mg/dL Last Edit by Charla Roberson on 04/27/25 13:46 UA pH 6.0 Last Edit by Charla Roberson on 04/27/25 13:46 UA Blood 0 Jose/uL Last Edit by Charla Roberson on 04/27/25 13:46 UA Specific [place] 1.015 Last Edit by Charla Roberson on 04/27/25 13:46 UA Ketone Negative Last Edit by Charla Roberson on 04/27/25 13:46 UA Bilirubin 17 mg/dL Last Edit by Charla Roberson on 04/27/25 13:46 UA Glucose 0 mg/dL Last Edit by Charla Roberson on 04/27/25 13:46 Results Reviewed Results Reviewed: Laboratory Last Values Urine pH (Auto) 6.0 04/27/25 13:45 Specific [place] (Auto) 1.015 04/27/25 13:45 Urine Protein (Auto) 1 mg/dL 04/27/25 13:45 Glucose (UA)(Auto) 0 mg/dL 04/27/25 13:45 Urine Ketones (Auto) Negative 04/27/25 13:45 Urine Blood (Auto) 0 Jose/uL 04/27/25 13:45 Urine Nitrite (Auto) Negative 04/27/25 13:45 Urine Bilirubin (Auto) 17 mg/dL 04/27/25 13:45 Urine Urobilinogen (Auto) 17 mg/dL 04/27/25 13:45 Leukocyte Esterase (Auto) 15 Anand/uL 04/27/25 13:45 Assessment & Plan Assessment & Plan (1) Voiding dysfunction: Code(s): N39.8 - Other specified disorders of urinary system Category: Medical (2) Hesitancy of micturition: Code(s): R39.11 - Hesitancy of micturition Category: Medical Plan I will restart bethanechol 25 mg t.i.d.. Antibiotic sent to pharmacy pending urine culture. Continue tamsulosin b.i.d. Medications: New bethanechol chloride 25 mg PO TID 90 tabs 3RF sulfamethoxazole-trimethoprim 800-160 mg (Bactrim DS) 1 tab PO BID 14 tabs 0RF Patient Instructions: The patient had an opportunity to ask questions regarding treatment plan. The patient expressed understanding and agreement with the above treatment plan. The patient is aware they should contact our office by phone for worsening of their current condition or the appearance of new symptoms. Compliance is encouraged with any medications and followup testing that is ordered. It is a privilege to be allowed the opportunity to participate in the urologic care of your patient. If you have any questions or concerns regarding treatment for the above conditions please do not hesitate to contact me. The office telephone contact is [phone]. This note is constructed in part using voice recognition software. While every effort has been made to ensure accuracy cylinder inspector and tester errors may have been included. Yours sincerely, Charissa Hurd MD Coding Level of Care Code Est Pt Level 4 (06303) Diagnoses Voiding dysfunction N39.8 Hesitancy of micturition R39.11
--- OUTSIDE RECORDS SUMMARY | 2025-04-27 12:32 | XMS_ITS | Encounter Summary ---
Author Organization [facility] Address [address] [place] [address] Care Team Providers Care Director Of Business Systems Name Role Phone Ernie Merritt Primary Care Provider + Reason for Visit * Reason Onset Date Comments PAC Patient Request Call Back 04/03/2025 PAC Sick/Symptoms 04/03/2025 Encounter Details Date Type Department Care Team (Late st Contact Info) Description 04/03/2025 Telephone [facility] [address] [place] [id number] Telephone Intake, Staff PAC Patient Request Call Back; PAC Sick/Symptoms Social History Tobacco Use Types Packs/Day Years [...] Miscellaneous Notes * Telephone Encounter - Agnieszka Peoples - 04/03/2025 9:33 AM EDT Pt's called, He is concerned because patient's condition is worsening, severe back pain, numbness and loss of feeling on both legs, unable to walk, completely depending on for care now, her symptoms are worsening. Her last ov was w Larisa 03/22/2025 Chronic bilateral low back pain with bilateral sciatica. Related te 03/22/2025 for possibility of surgery discussion. is requesting a call back. Best number to reach him is [phone] documented in this encounter Plan of Treatment Upcoming Encounters Date Type Department Care Team (Latest Contact Info) Description 05/01/2025 11:00 AM EDT Appointment [facility] [address] [place] [address] [address] [place] [address] 05/12/2025 7:05 AM EDT Hospital Encounter [facility] [address] [place] [phone] Christopher Peres MD [address] [place] [phone] 05/12/2025 7:05 AM EDT - 05/12/2025 9:35 PM EDT Surgery [facility] [address] [place] [phone] Christopher Peres MD [address] [place] [phone] FUSION, POSTERIOR, FOR SPINAL DEFORMITY, POSSIBLE CASTING, 7 TO 12 VERTEBRAL SEGMENTS [56592 (CPT )] 05/30/2025 2:30 PM EDT Follow-Up [facility] [address] [place] [phone] Fang Altamirano NP [address] [place] [phone] 06/27/2025 3:45 PM EDT Follow-Up [facility] [address] [place] [address] Christopher Peres MD [address] [place] [phone] Scheduled Procedures Name Priority Associated Diagnoses Date/Ti me FUSION, POSTERIOR, FOR SPINAL DEFORMITY, POSSIBLE CASTING, 7 TO 12 VERTEBRAL SEGMENTS Other idiopathic scoliosis, thoracolumbar region 05/12/2025 7:05 AM EDT POSTERIOR SEGMENTAL INSTRUMENTATION, 7 TO 12 VERTEBRAL SEGMENTS Other idiopathic scoliosis, thoracolumbar region 05/12/2025 7:05 AM EDT LAMINECTOMY, FACETECTOMY, AND FORAMINOTOMY, LUMBAR, SINGLE LEVEL Other idiopathic scoliosis, thoracolumbar region 05/12/2025 7:05 AM EDT LAMINECTOMY, FACETECTOMY, AND FORAMINOTOMY, CERVICAL, THORACIC, OR LUMBAR, EACH ADDITIONAL LEVEL Other idiopathic scoliosis, thoracolumbar region 05/12/2025 7:05 AM EDT LAMINECTOMY, FACETECTOMY, AND FORAMINOTOMY, THORACIC, SINGLE LEVEL Other idiopathic scoliosis, thoracolumbar region 05/12/2025 7:05 AM EDT OSTEOTOMY OF SPINE, POSTERIOR OR POSTEROLATERAL APPROACH, 3 COLUMNS, 1 VERTEBRAL SEGMENT (EG, PEDICLE/VERTEBRAL BODY SUBTRACTION); LUMBAR Other idiopathic scoliosis, thoracolumbar region 05/12/2025 7:05 AM EDT documented as of this encounter Visit Diagnoses Not on filedocumented in this encounter Care Teams Director Of Business Systems Relationship Specialty Start Date End Date Ernie Merritt [address] [place] [phone] PCP - General Internal Medicine 11/29/24 documented as of this encounter
--- OUTSIDE RECORDS SUMMARY | 2025-04-27 12:32 | XMS_ITS | Encounter Summary ---
Author Organization [employer] Address [address] [facility] [address] [place] [address] Care Team Providers Care Paste Maker Name Role Phone Ernie Noriega MD Primary Care Provide r Reason for Visit * Reason Onset Date Comments Med Refill 03/15/2024 Encounter Details Date Type Department Care Team (Late st Contact Info) Description 03/15/2024 Refill [facility] [address] [place] [address] Ofelia Melgar MD [address] [place] [address] Chronic midline low back pain without sciatica; [...] Description 05/09/2025 1:00 PM EDT Office Visit [facility] [address] [place] [address] Ernie Noriega MD [address] [place] [address] documented as of this encounter Visit Diagnoses Diagnosis Chronic midline low back pain without sciatica Cervical radiculopathy Brachial neuritis or radiculitis nos documented in this encounter Additional Health Concerns Assessment Noted Time PHQ-9 Depression Total Score: 2 01/21/20 24 1:25 PM EDT documented as of this encounter Care Teams Paste Maker Relationship Specialty Start Date End Date Ernie Noriega MD [address] [place] [address] PCP - General Internal Medicine 08/25/19 Elida KELLYA 03/31/25 documented as of this encounter
--- OUTSIDE RECORDS SUMMARY | 2025-04-27 12:32 | XMS_ITS | Clinical Summary ---
Author Organization [address] [facility] Address [address] [place] [address] Phone Care Team Providers Care Merchandise Director Name Role Phone Ernie Merritt MD Primary [...] 09/01/2023 Trigger thumb of right hand 07/03/2021 Surgical History Surgery Date Site/Laterality Comments CARPAL [...] 54 12/07/2024 1:50 PM EST Temperature 36.2 C (97.2 F) 12/07/2024 1:21 PM EST Respiratory Rate 16 12/07/2024 1:50 PM EST [...] Blood Test 11/22/2024 Depression Screening 01/20/2025 01/21/2024 Influenza Vaccine (#1) 2025 4, 07/21/2023, 07/16/2022, Additional history exists DTaP,Tdap,and Td Vaccines (4 - Td or Tdap) 04/04/2031 04/04/2021, 03/10/2014, 05/12/2012 Zoster Vaccines Completed 08/15/2020, 05/26/2020 Hepatitis C Screening Completed 11/07/2022 Pneumococcal Vaccine: 50+ Years Completed 05/13/2023, 11/12/2015, 05/12/2012 HIB Vaccines Aged Out No longer eligi [...] patient's age to complete this topic Insurance MEDICAID - [place] Advance Directives * [...] currently active code status orders. Care Teams Merchandise Director Relationship Specialty Start Date End Date Ernie Merritt MD [address] [place] [address] [place] [address] PCP - General Internal Medicine 05/20/21
== END 2025-04-27 12:26 | disposition home or self-care (01) ==
LOC: HO.HUSH 11:41
PROVIDERS: PCP Internal Medicine; Visit Provider Urology
DX: N39.8 Other specified disorders of urinary system (principal); R39.11 Hesitancy of micturition; Z13.9 Encounter for screening, unspecified
CPT/HCPCS: 99214

== ENCOUNTER 2025-04-27 11:40 | Outpatient (REF) | payer MEDICAID, SELFPAY | END 2025-04-27 11:41 | disposition home or self-care (01) | LOC: HO.LAB 11:40 | PROVIDERS: PCP Internal Medicine; Visit Provider Urology | DX: N39.8 Other specified disorders of urinary system (principal); R39.11 Hesitancy of micturition; R33.9 Retention of urine, unspecified; Z79.899 Other long term (current) drug therapy | CPT/HCPCS: 51798; 81003; 87086; 99212 ==

== ENCOUNTER 2025-06-09 08:46 | Outpatient (REF) | payer MEDICAID, SELFPAY ==
--- OUTSIDE RECORDS SUMMARY | 2024-02-03 04:40 | XMS_ITS ---
Author Organization [facility] Address [address] [place] [address] Care Team Providers Care Cloud Solutions Architect Name Role Phone Milton Ro MD, Ernie Primary Care Provide Rodrick Rose [phone] REASON FOR VISIT screening Encounters Encounter Location Date Provider Diagnosis [facility] [place] Out[place] [address] [place], [place] [id number] 02/03/2024 Rodrick Millan Plan Of Treatment No Information Progress Notes * ISHMAEL HINOJOSADOB: 3 (60 yo F)Acc No.[id number]:02/03/2024 COLON WITH MAC Patient: ISHMAEL PORTILLO Provider: Dane Millan MD :1965 A ge:58 Y S ex:Female Date:02/03/2024 Address:[address] [place] [address] Megan [id number] Pcp:Ernie bonilla MD Subjective: * Chief Complaints: * 1 . Screening. * Medical History: Objective: * Vitals: Assessment: Plan: * Treatment: * * The named appointment provid er may or may not be the originator of this progress note, and it is not deemed complete until electronically signed by the appointment provider. Sign off status: Pending * Provider: Dane Millan MD Date: 02/03/2024 Generated for Printi ng/Faxing/eTransmitting on: 06/09/2025 09:40 AM EDT
--- OUTSIDE RECORDS SUMMARY | 2024-03-18 03:30 | XMS_ITS ---
Author Organization [facility] Address [address] [place] [address] Care Team Providers Care Tool Filer Hand Name Role Phone Milton Ro MD, [facility] Primary Care Provide r Rodrick Juarez Unavailable [phone] REASON FOR VISIT screening Problems Problem Type SNOMED Code ICD Code Onset Dates Problem Status W/U Status Risk Notes Problem Diverticular disease of colon (752620250) Diverticulosis of large intestine without perforation or abscess without bleeding (K57.30) Active confirmed Encounters Encounter Location Date Provider Diagnosis [facility] [place] Out[place] [address] [place], [place] [phone] 03/18/2024 Rodrick Millan Encounter for scre ening [...] * ISHMAEL HINOJOSADOB: 3 (60 yo F)Acc No.[id number]:03/18/2024 COLON WITH MAC Patient: Dane SALVADOR ISHMAEL Provider: Dane Millan MD :1965 A ge:58 Y S ex:Female Date:03/18/2024 Address:[address] [place] [address] [id number] Pcp:Ernie bonilla MD Subjective: * Chief Complaints: [...] 03/18/2024 Generated for Landon westbrook/Jean-Paul/Demetriusitting on: 0 06/09/2025 09:42 AM EDT
--- OUTSIDE RECORDS SUMMARY | 2025-06-06 10:30 | XMS_ITS | Encounter Summary ---
Author Organization [employer] Address [address] [facility] 7[address] [place] [address] Care Team Providers Care Industrial Truck Operator Name Role Phone Ernie Noriega MD Primary Care Provide r Reason for Referral * Imaging (Routine) - Authorized Specialty Diagnoses / Procedures Referred By Bro sommer Referred To Contact Radiology Diagnoses Acute pain of right knee Procedures US SOFT TISSUE Ilsa Robison ANP [address] [place] [address] Phone: tel: fax: [address] Phone: tel: fax: Referral ID Status Reason Start Date Expiration Date V isits Requested Visits Authorized [id number] Authorized 06/06/2025 06/06/2026 1 1 * Imaging (STAT) - Authorized Specialty Diagnoses / Procedures Referred By Bro t Referred To Contact Cardiology Diagnoses Acute pain of right knee Procedures VASC US Lower Extremity Venous Duplex Right Ilsa Robison ANP [address] [place] [address] Phone: tel: fax: [address] Phone: tel: fax: Referral ID Status Reason Start Date Expiration Date Visits Requested Visits Authorized [id number] Authorized Perform Procedure 06/06/2025 06/06/2026 1 1 Reason for Visit * Reason Comments Hospital Follow-up Encounter Details Date Type Department Care Team (Late st Contact Info) Description 06/06/2025 10:30 AM EDT Office Visit [facility] [address] [place] [address] Ilsa Robison ANP [address] [place] [address] Hospital discharge follow-up (Primary Dx); Status post osteotomy; Status post laminectomy with spinal fusion; Constipation, unspecified constipation type; Acute pain of right knee; Anemia, unspecified type; Chronic right shoulder pain Social History Tobacco Use Types Packs/Day [...] Sign Reading Time Taken Comments Blood Pressure 110/58 06/06/2025 10:45 AM EDT Pulse 67 06/06/2025 10:45 AM EDT Temperature 36.3 C (97.4 F) 06/06/2025 10:45 AM EDT Respiratory Rate 14 06/06/2025 10:45 AM EDT Oxygen Saturation 99% 06/06/2025 10:45 AM EDT Inhaled Oxygen Concentration - - Weight 69.4 kg (153 lb) 06/06/2025 10:45 AM EDT Height - - Body Mass Index 27.1 04/04/2025 10:11 AM EDT documented in this encounter Progress Notes * [employer] - 06/06/2025 10:30 AM EDT Images from the original note were not included. Subjective Patient ID: Miguelina Julien is a 60 y.o. female who presents for HDF s/p planned back surgeries. [facility] Interpreters utilized for Slovak interpretation #Perlita, then disconnected [phone] Would like to be back with [facility], possibly [facility] - she would like to resume PT for her Rshoulder She is starting therapy today for her back with home PT via [place] I will speak w/ PCP about oxycodone She also has new bump behind R knee, not evident on eval but pt does have posterior knee tenderness She is having RLE pain and bilateral foot numbness - she was seen by Dr. Peres who is rx'ing morphine MS contin and they will request refill Taking gabapentin, tylenol Taking stool softener but still constipated. Will send miralax to use as needed PMH significant for multiple lumbar surgeries and severely degenerative spine with scoliosis s/p T10 - pelvis fusion with L4 PSO (Dr. Peres, 05/12/2025) At 05/30/25 visit w/ Dr. Peres: -Methocarbamol prescription refilled -Continue TLSO brace when OOB. Don/doff on edge of bed -Avoid lifting >10lbs and avoid any repetitive bending or twisting activities Plan for patient to follow up with Dr. Peres in four weeks with scoliosis XR to review. Review of Systems Constitutional: Negative for chills and fever. HENT: Negative for sore throat. Respiratory: Negative for cough and shortness of breath. Cardiovascular: Negative for chest pain. Gastrointestinal: Negative for abdominal pain, constipation and diarrhea. Endocrine: Negative for polydipsia, polyphagia and polyuria. Genitourinary: Negative for difficulty urinating and dysuria. Musculoskeletal: Positive for arthralgias, back pain and joint swelling. Skin: Negative for rash. Psychiatric/Behavioral: Positive for sleep disturbance. Objective BP 110/58 (BP Location: Left arm, Patient Position: Sitting, BP Cuff Size: Adult) Pulse67 Temp 97.4 ??F (36.3 ??C) (Oral) Resp 14 Wt 153 lb (69.4 kg) SpO2 99% BMI 27.10 kg/m?? Physical Exam Vitals reviewed. Constitutional: Comments: Uncomfortable, in brace HENT: Head: Normocephalic and atraumatic. Eyes: General: No scleral icterus. Extraocular Movements: Extraocular movements intact. Pupils: Pupils are equal, round, and reactive to light. Cardiovascular: Rate and Rhythm: Normal rate and regular rhythm. Musculoskeletal: Right lower leg: No edema. Left lower leg: No edema. Comments: Varicosities bilateral LE; tenderness behind R knee but no obvious cyst Neurological: Mental Status: She is alert and oriented to person, place, and time. Psychiatric: Mood and Affect: Mood normal. Behavior: Behavior normal. No results found for: HGBA1C Assessment/Plan Diagnoses and all orders for this visit: Hospital discharge follow-up Would like to check A1c given elevated BG a few times while admitted, reviewed mild w/ pt. BMP to recheck for electrolyte disturbance, had mention of hypokalemia in discharge paperwork CBC for anemia status, H/H relatively stable during admission but low - Hemoglobin A1c; Future - Basic Metabolic Panel; Future - CBC auto differential; Future Status post osteotomy Cont follow-up w/ surgeon as scheduled Status post laminectomy with spinal fusion I will discuss oxycodone w/ PCP Family has narcan She will cont ms contin from surgeon and gabapentin, APAP, muscle relaxant Cont ambulating w/ walker and minimizing bending, twisting, no lifting over 10 kb Constipation, unspecified constipation type - polyethylene glycol, PEG, 3350 (MiraLax) 17 GM/SCOOP powder; Take 17g once daily for 3 day and then as needed R shoulder pain chronic Resume PT w/ [facility], will discuss w/ team Acute pain of right knee R/o DVT given recent operation. Mobility limitation LE w/o swelling, +palpable pulses Suspect anthony's cyst - VASC US Lower Extremity Venous Duplex Right; Future - US SOFT TISSUE; Future Future Appointments Date Time Provider Department Center 07/06/2025 11:15 AM Ernie Ro MD MEDICINE [facility] documented in this encounter Plan of Treatment Upcoming Encounters Date Type Department Care Team (Late st Contact Info) Description 07/06/2025 11:15 AM EDT Office Visit [facility] [address] [place] [address] Ernie Noriega MD [address] [place] [address] Scheduled Orders Name Type Priority Associated Diagnoses Orde r Schedule US SOFT TISSUE Imaging Routine Acute pain of right knee Expected: 06/06/2025, Expires: 06/06/2026 Hemoglobin A1c Lab Routine Hospital discharge follow-up Expected: 06/06/2025 (Approximate), Expires: 06/06/2026 Basic Metabolic Panel Lab Routine Hospital discharge follow-up Expected: 06/06/2025 (Approximate), Expires: 06/06/2026 CBC auto differential Lab Routine Hospital discharge follow-up Expected: 06/06/2025 (Approximate), Expires: 06/06/2026 Iron And Total Iron Binding Capacity Lab Routine Anemia, unspecified type Expected: 06/06/2025, Expires: 06/06/2026 documented as of this encounter Visit Diagnoses Diagnosis Hospital discharge follow-up- Primary Other follow-up examination Status post osteotomy Status post laminectomy with spinal fusion Arthrodesis status Constipation, unspecified constipation type Acute pain of right knee Anemia, unspecified type Chronic right shoulder pain Pain in joint, shoulder region documented in this encounter Additional Health Concerns Assessment Noted Time PHQ-9 Depression Total Score: 4 01/13/20 25 2:57 PM EDT documented as of this encounter Care Teams Industrial Truck Operator Relationship Specialty Start Date End Date Ernie Noriega MD [address] [place] [address] PCP - General Internal Medicine 08/25/19 Jesus LENZ 05/25/25 documented as of this encounter
--- NOTE | ~2025-06-09 | US_ITS ---
EXAMINATION: US TRIPLEX LOWER EXTREMITY, RIGHT CLINICAL INFORMATION: Right lower extremity swelling COMPARISON: None available. TECHNIQUE: Color-flow triplex imaging with spectral analysis and compression Doppler were performed on the right lower extremity. FINDINGS: Respiratory variation, normal compression and augmented flow are noted throughout the right lower extremity. The visualized common femoral vein, superficial femoral vein, profunda femoral vein, popliteal vein and midcalf peroneal and posterior tibial venous segments show no evidence of deep venous thrombosis. There is no Michele's cyst. US/US venous duplex LE RT IMPRESSION: No evidence of deep venous thrombosis involving the right lower extremity. No Michele's cyst. Electronically signed by: Preston Bernal MD 06/09/2025 10:00 AM EDT
--- OUTSIDE RECORDS SUMMARY | 2025-06-09 09:40 | XMS_ITS | Encounter Summary ---
Author Organization [employer] Address [address] [facility] 7t [place] [address] Care Team Providers Care It Program Auditor Name Role Phone Ernie Noriega MD Primary Care Provide r Reason for Visit * Reason Onset Date Comments Med Refill 01/10/2025 Encounter Details Date Type Department Care Team (Late st Contact Info) Description 01/10/2025 Refill [facility] MEDICINE [address] [place] [address] Ernie Noriega MD [address] [place] [address] Primary osteoarthritis of knee, unspecified laterality Social [...] Assessment Author Several days 01/12/2025 2:57 PM [facility] Priti Campo [place] * Trouble falling or [...] PM EDT Priti Campo [place] * Feeling bad about yourself - [...] difficult at all 01/12/2025 2:57 PM EDT [facility] Priti coronado [place] documented as of this encounter Plan of Treatment Upcoming Encounters Date Type Department Care Team (Late st Contact Info) Description 07/06/2025 11:15 AM EDT Office Visit [facility] MEDICINE [address] [place] [address] Ernie Noriega MD [address] [place] [address] documented as of this encounter Visit Diagnoses Diagnosis Primary osteoarthritis of knee, unspecified laterality documented in this encounter Additional Health Concerns Assessment Noted Time PHQ-9 Depression Total Score: 2 01/21/20 24 1:25 PM EDT documented as of this encounter Care Teams It Program Auditor Relationship Specialty Start Date End Date Ernie Noriega MD [address] [place] [address] PCP - General Internal Medicine 08/25/19 [place] [facility] 03/31/25 05/25/25 Jesus [facility] 05/25/25 documented as of this encounter
--- OUTSIDE RECORDS SUMMARY | 2025-06-09 09:40 | XMS_ITS | Encounter Summary ---
Author Organization [employer] Address 75 [facility] 7t [place] [address] Care Team Providers Care Marker Machine Name Role Phone Ernie Noriega MD Primary Care Provide r Reason for Visit * Reason Onset Date Comments Med Refill 11/01/2024 Encounter Details Date Type Department Care Team ([facility] st Contact Info) Description 11/01/2024 Refill [facility] MEDICINE [address] [place] [address] Sugar Mitchell MD [address] [place] [address] Seasonal allergies Social History Tobacco Use Types [...] Description 07/06/2025 11:15 AM EDT Office Visit [facility] MEDICINE [address] [place] [address] Ernie Noriega MD [address] [place] [address] documented as of this encounter Visit Diagnoses Diagnosis Seasonal allergies Allergic rhinitis, cause unspecified documented in this encounter Additional Health Concerns Assessment Noted Time PHQ-9 Depression Total Score: 2 01/21/20 24 1:25 PM EDT documented as of this encounter Care Teams Marker Machine Relationship Specialty Start Date End Date Ernie Noriega MD [address] [place] [id number] PCP - General Internal Medicine 08/25/19 [place] [facility] 03/31/25 05/25/25 Jesus [facility] 05/25/25 documented as of this encounter
--- OUTSIDE RECORDS SUMMARY | 2025-06-09 09:40 | XMS_ITS | Encounter Summary ---
Author Organization [employer] Address 75 [facility] 7t [place] [address] Care Team Providers Care Hang Gliding Instructor Name Role Phone Ernie Noriega MD Primary Care Provide r Reason for Visit * Reason Onset Date Comments Med Refill 10/17/2024 Encounter Details Date Type Department Care Team (Late st Contact Info) Description 10/17/2024 Refill [facility] MEDICINE [address] [place] [address] Ernie Noriega MD [address] [place] [address] Primary osteoarthritis of knee, unspecified laterality Social [...] Description 07/06/2025 11:15 AM EDT Office Visit [facility] MEDICINE [address] [place] [address] Ernie Noriega MD [address] [place] [address] documented as of this encounter Visit Diagnoses Diagnosis Primary osteoarthritis of knee, unspecified laterality documented in this encounter Additional Health Concerns Assessment Noted Time PHQ-9 Depression Total Score: 2 01/21/20 24 1:25 PM EDT documented as of this encounter Care Teams Hang Gliding Instructor Relationship Specialty Start Date End Date Ernie Noriega MD [address] [place] [address] PCP - General Internal Medicine 08/25/19 [facility] 03/31/25 05/25/25 Jesus [facility] 05/25/25 documented as of this encounter
--- OUTSIDE RECORDS SUMMARY | 2025-06-09 09:40 | XMS_ITS | Encounter Summary ---
Author Organization [employer] Address 75 [facility] 7t [place] [address] Care Team Providers Care Account Executive Healthcare Name Role Phone Ernie Noriega MD Primary Care Provide r Reason for Visit * Reason Onset Date Comments Med Refill 01/26/2024 Encounter Details Date Type Department Care Team (Late st Contact Info) Description 01/26/2024 Refill [facility] MEDICINE [address] [place] [address] Ilsa Robison, ANP [address] [place] [address] Chronic midline low back pain without sciatica; [...] Description 07/06/2025 11:15 AM EDT Office Visit [facility] MEDICINE [address] [place] [address] Ernie Noriega MD [address] [place] [address] documented as of this encounter Visit Diagnoses Diagnosis Chronic midline low back pain without sciatica Cervical radiculopathy Brachial neuritis or radiculitis nos documented in this encounter Additional Health Concerns Assessment Noted Time PHQ-9 Depression Total Score: 2 01/21/20 24 1:25 PM EDT documented as of this encounter Care Teams Account Executive Healthcare Relationship Specialty Start Date End Date Ernie Noriega MD [address] [place] [address] PCP - General Internal Medicine 08/25/19 [facility] 03/31/25 05/25/25 Jesus [facility] 05/25/25 documented as of this encounter
--- OUTSIDE RECORDS SUMMARY | 2025-06-09 09:40 | XMS_ITS | Encounter Summary ---
Author Organization [employer] Address 75 [facility] 7t [place] [address] Care Team Providers Care Miner Operator Name Role Phone Ernie Noriega MD Primary Care Provide r Reason for Visit * Reason Comments Med Refill Encounter Details Date Type Department Care Team ([facility] Contact Info) Description 04/11/2025 Refill [facility] MEDICINE [address] [place] [address] Ofelia Melgar MD [address] [place] [address] Social History Tobacco Use Types Packs/Day Years [...] Description 07/06/2025 11:15 AM EDT Office Visit [facility] MEDICINE [address] [place] [address] Ernie Noriega MD [address] [place] [address] documented as of this encounter Visit Diagnoses Not on filedocumented in this encounter Additional Health Concerns Assessment Noted Time PHQ-9 Depression Total Score: 4 01/13/20 25 2:57 PM EDT documented as of this encounter Care Teams Miner Operator Relationship Specialty Start Date End Date Ernie Noriega MD 230 [place] [address] PCP - General Internal Medicine 08/25/19 [place] [facility] 03/31/25 05/25/25 Jesus [facility] 05/25/25 documented as of this encounter
--- OUTSIDE RECORDS SUMMARY | 2025-06-09 09:40 | XMS_ITS | Encounter Summary ---
Author Organization [employer] Address [address] [facility] 7t [place] [address] Care Team Providers Care Spreader Box Operator Name Role Phone Ernie Noriega MD Primary Care Provide r Reason for Visit * Reason Onset Date Comments Med Refill 06/25/2024 Encounter Details Date Type Department Care Team (Late st Contact Info) Description 06/25/2024 Refill [facility] MEDICINE [address] [place] [address] Ernie Noriega MD [address] [place] [address] Chronic midline low back pain without sciatica; [...] 11:15 AM EDT Office Visit [facility] MEDICINE [address] [place] [address] Ernie Noriega MD [address] [place] [address] documented as of this encounter Visit Diagnoses Diagnosis Chronic midline low back pain without sciatica Cervical radiculopathy Brachial neuritis or radiculitis nos documented in this encounter Additional Health Concerns Assessment Noted Time PHQ-9 Depression Total Score: 2 01/21/20 24 1:25 PM EDT documented as of this encounter Care Teams Spreader Box Operator Relationship Specialty Start Date End Date Ernie Noriega MD [address] [place] [address] PCP - General Internal Medicine 08/25/19 El[place] KELLYA 03/31/25 05/25/25 Jesus LENZ 05/25/25 documented as of this encounter
--- OUTSIDE RECORDS SUMMARY | 2025-06-09 09:40 | XMS_ITS | Encounter Summary ---
Author Organization [employer] Address 75 [facility] 7t [place] [address] Care Team Providers Care Interventional Neuroradiologist Name Role Phone Ernie Noriega MD Primary Care Provide r Encounter Details Date Type Department Care Team (Late st Contact Info) Description 02/18/2023 Abstract [facility] MEDICINE [address] [place] [address] [phone] Ernie Noriega MD [address] [place] [address] [phone] Social History Tobacco Use Types Packs/Day Years [...] Description 07/06/2025 11:15 AM EDT Office Visit [facility] MEDICINE [address] [place] [address] [phone] Ernie Noriega MD [address] [place] [address] [phone] documented as of this encounter Procedures Procedure [...] documented as of this encounter Care Teams Interventional Neuroradiologist Relationship Specialty Start Date End Date Ernie Noriega MD [address] [place] [phone] PCP - General Internal Medicine 08/25/19 [place] [facility] 03/31/25 05/25/25 Jesus [facility] 05/25/25 documented as of this encounter
--- OUTSIDE RECORDS SUMMARY | 2025-06-09 09:40 | XMS_ITS | Encounter Summary ---
Author Organization [employer] Address 75 [facility] 7t [place] [address] Care Team Providers Care Photographic Developer And Printer Name Role Phone Ernie Noriega MD Primary Care Provide r Reason for Visit * Reason Onset Date Comments Med Refill 08/13/2024 Encounter Details Date Type Department Care Team ([facility] st Contact Info) Description 08/13/2024 Refill [facility] MEDICINE [address] [place] [address] Ernie Noriega MD [address] [place] [address] Seasonal allergies Social History Tobacco Use Types [...] Description 07/06/2025 11:15 AM EDT Office Visit [facility] MEDICINE [address] [place] [address] Ernie Noriega MD [address] [place] [address] documented as of this encounter Visit Diagnoses Diagnosis Seasonal allergies Allergic rhinitis, cause unspecified documented in this encounter Additional Health Concerns Assessment Noted Time PHQ-9 Depression Total Score: 2 01/21/20 24 1:25 PM EDT documented as of this encounter Care Teams Photographic Developer And Printer Relationship Specialty Start Date End Date Ernie Noriega MD [address] [place] [address] PCP - General Internal Medicine 08/25/19 [facility] 03/31/25 05/25/25 Jesus [facility] 05/25/25 documented as of this encounter
--- OUTSIDE RECORDS SUMMARY | 2025-06-09 09:40 | XMS_ITS | Encounter Summary ---
Author Organization [employer] Address [address] [facility] 7t [place] [address] Care Team Providers Care Mushroom Packer Name Role Phone Ernie Noriega MD Primary Care Provide r Reason for Visit * Reason Onset Date Comments Med Refill 04/16/2024 Encounter Details Date Type Department Care Team (Late st Contact Info) Description 04/16/2024 Refill [facility] MEDICINE [address] [place] [address] Ernie Noriega MD [address] [place] [address] Essential hypertension Social History Tobacco Use Types [...] Description 07/06/2025 11:15 AM EDT Office Visit [facility] MEDICINE [address] [place] [address] Ernie Noriega MD [address] [place] [address] documented as of this encounter Visit Diagnoses Diagnosis Essential hypertension Unspecified essential hypertension documented in this encounter Additional Health Concerns Assessment Noted Time PHQ-9 Depression Total Score: 2 01/21/20 24 1:25 PM EDT documented as of this encounter Care Teams Mushroom Packer Relationship Specialty Start Date End Date Ernie Noriega MD [address] [place] [address] PCP - General Internal Medicine 08/25/19 [place] [facility] 03/31/25 05/25/25 Jesus [facility]NA 05/25/25 documented as of this encounter
--- OUTSIDE RECORDS SUMMARY | 2025-06-09 09:40 | XMS_ITS | Encounter Summary ---
Author Organization [employer] Address 75 [facility] 7t [place] [address] Care Team Providers Care Rn Pacu Name Role Phone Ernie Noriega MD Primary Care Provide r Reason for Visit * Reason Comments Med Refill Encounter Details Date Type Department Care Team ([facility] st Contact Info) Description 08/10/2023 Refill [facility] MEDICINE [address] [place] [address] Ernie Noriega MD [address] [place] [address] Primary osteoarthritis of knee, unspecified laterality; Chronic [...] Description 07/06/2025 11:15 AM EDT Office Visit [facility] MEDICINE [address] [place] [address] Ernie Noriega MD [address] [place] [address] documented as of this encounter Visit Diagnoses Diagnosis Primary osteoarthritis of knee, unspecified laterality Chronic midline low back pain without sciatica Cervical radiculopathy Brachial neuritis or radiculitis nos Pain Generalized pain documented in this encounter Additional Health Concerns Assessment Noted Time PHQ-9 Depression Total Score: 0 12/02/19 23 2:38 PM EST documented as of this encounter Care Teams Rn Pacu Relationship Specialty Start Date End Date Ernie Noriega MD [address] [place] [phone] PCP - General Internal Medicine 08/25/19 [facility] 03/31/25 05/25/25 Jesus [facility] 05/25/25 documented as of this encounter
--- OUTSIDE RECORDS SUMMARY | 2025-06-09 09:40 | XMS_ITS | Encounter Summary ---
Author Organization [employer] Address 75 [facility] 7t [place] [address] Care Team Providers Care Pricing Strategist Name Role Phone Ernie Noriega MD Primary Care Provide r Reason for Visit * Reason Comments Med Refill Encounter Details Date Type Department Care Team ([facility] st Contact Info) Description 07/28/2024 Refill [facility] MEDICINE [address] [place] [address] Ernie Noriega MD [address] [place], [place] [phone] Primary osteoarthritis of knee, unspecified laterality Social [...] Description 07/06/2025 11:15 AM EDT Office Visit [facility] MEDICINE [address] [place] [address] Ernie Noriega MD [address] [place] [address] documented as of this encounter Visit Diagnoses Diagnosis Primary osteoarthritis of knee, unspecified laterality documented in this encounter Additional Health Concerns Assessment Noted Time PHQ-9 Depression Total Score: 2 01/21/20 24 1:25 PM EDT documented as of this encounter Care Teams Pricing Strategist Relationship Specialty Start Date End Date Ernie Noriega MD [address] [place] [id number] PCP - General Internal Medicine 08/25/19 [place] [facility] 03/31/25 05/25/25 Jesus [facility] 05/25/25 documented as of this encounter
--- OUTSIDE RECORDS SUMMARY | 2025-06-09 09:40 | XMS_ITS | Encounter Summary ---
Author Organization [employer] Address 75 [facility] 7t [place] [address] Care Team Providers Care Fiscal Specialist Name Role Phone Ernie Noriega MD Primary Care Provide r Reason for Visit * Reason Onset Date Comments Med Refill 11/07/2024 Encounter Details Date Type Department Care Team (Late st Contact Info) Description 11/07/2024 Refill [facility] MEDICINE [address] [place] [address] Ernie Noriega MD [address] [place], [place] [phone] Chronic midline low back pain without sciatica [...] Description 07/06/2025 11:15 AM EDT Office Visit [facility] MEDICINE [address] [place] [address] Ernie Noriega MD [address] [place] [address] documented as of this encounter Visit Diagnoses Diagnosis Chronic midline low back pain without sciatica documented in this encounter Additional Health Concerns Assessment Noted Time PHQ-9 Depression Total Score: 2 01/21/20 24 1:25 PM EDT documented as of this encounter Care Teams Fiscal Specialist Relationship Specialty Start Date End Date Ernie Noriega MD [address] [place] [address] PCP - General Internal Medicine 08/25/19 [place] [facility] 03/31/25 05/25/25 Jesus [facility]NA 05/25/25 documented as of this encounter
--- OUTSIDE RECORDS SUMMARY | 2025-06-09 09:40 | XMS_ITS | Encounter Summary ---
Author Organization [employer] Address [address] [facility] 7t [place] [address] Care Team Providers Care Lipstick Molder Name Role Phone Ernie Noriega MD Primary Care Provide r Reason for Visit * Reason Onset Date Comments Referral 04/18/2025 Encounter Details Date Type Department Care Team ([facility] st Contact Info) Description 04/18/2025 Telephone [facility] MEDICINE [address] [place] [address] Ernie Noriega MD [address] [place] [address] Referral Social History Tobacco Use Types Packs/Day Years [...] encounter Miscellaneous Notes * Telephone Encounter - Og Sargent - 04/18/2025 9:12 AM EDT Tc from pt would like to change Podiatry location from [facility]: [facility] Blank[facility]hip[facility] [place] [address]. If any questions you can contact pt at [phone] documented in this encounter Plan of Treatment Upcoming Encounters Date Type Department Care Team (Late st Contact Info) Description 07/06/2025 11:15 AM EDT Office Visit [facility] MEDICINE 230 [place] [address] Ernie Noriega MD [address] [place] [address] documented as of this encounter Visit Diagnoses Not on filedocumented in this encounter Additional Health Concerns Assessment Noted Time PHQ-9 Depression Total Score: 4 01/13/20 25 2:57 PM EDT documented as of this encounter Care Teams Lipstick Molder Relationship Specialty Start Date End Date Ernie Noriega MD 230 [place], [place] [phone] PCP - General Internal Medicine 08/25/19 Elida LENZ 03/31/25 05/25/25 Jesus LENZ 05/25/25 documented as of this encounter
--- OUTSIDE RECORDS SUMMARY | 2025-06-09 09:40 | XMS_ITS | Encounter Summary ---
Author Organization [employer] Address 75 [facility] 7t [place] [address] Care Team Providers Care Household Appliance Mechanic Name Role Phone Ernie Noriega MD Primary Care Provide r Reason for Visit * Reason Onset Date Comments Med Refill 03/15/2024 Encounter Details Date Type Department Care Team (Late st Contact Info) Description 03/15/2024 Refill [facility] MEDICINE 230 [place] [address] Ofelia Melgar MD [address] [place] [address] Chronic midline low back pain without sciatica; [...] Description 07/06/2025 11:15 AM EDT Office Visit [facility] MEDICINE 230 [place] [address] Ernie Noriega MD [address] [place] [address] documented as of this encounter Visit Diagnoses Diagnosis Chronic midline low back pain without sciatica Cervical radiculopathy Brachial neuritis or radiculitis nos documented in this encounter Additional Health Concerns Assessment Noted Time PHQ-9 Depression Total Score: 2 01/21/20 24 1:25 PM EDT documented as of this encounter Care Teams Household Appliance Mechanic Relationship Specialty Start Date End Date Ernie Noriega MD [address] [place] [address] PCP - General Internal Medicine 08/25/19 Elida KELLYA 03/31/25 05/25/25 Jesus LENZ 05/25/25 documented as of this encounter
--- OUTSIDE RECORDS SUMMARY | 2025-06-09 09:40 | XMS_ITS | Encounter Summary ---
Author Organization [employer] Address 75 [facility] 7t [place] [address] Care Team Providers Care Hr Manager Name Role Phone Ernie Noriega MD Primary Care Provide r Reason for Visit * Reason Onset Date Comments Med Refill 04/24/2024 Encounter Details Date Type Department Care Team (Late st Contact Info) Description 04/24/2024 Refill [facility] MEDICINE [address] [place] [address] Ernie Noriega MD [address] [place] [address] Essential hypertension Social History Tobacco Use Types [...] 11:15 AM EDT Office Visit [facility] MEDICINE [address] [place] [address] Ernie Noriega MD [address] [place] [address] documented as of this encounter Visit Diagnoses Diagnosis Essential hypertension Unspecified essential hypertension documented in this encounter Additional Health Concerns Assessment Noted Time PHQ-9 Depression Total Score: 2 01/21/20 24 1:25 PM EDT documented as of this encounter Care Teams Hr Manager Relationship Specialty Start Date End Date Ernie Noriega MD [address] [place] [address] PCP - General Internal Medicine 08/25/19 [place] [facility] 03/31/25 05/25/25 Jesus [facility] 05/25/25 documented as of this encounter
--- OUTSIDE RECORDS SUMMARY | 2025-06-09 09:40 | XMS_ITS | Encounter Summary ---
Author Organization [employer] Address 75 [facility] 7t [place] [address] Care Team Providers Care Automotive Power Electronics Engineer Name Role Phone Ernie Noriega MD Primary Care Provide r Reason for Visit * Reason Onset Date Comments Med Refill 01/10/2025 Encounter Details Date Type Department Care Team (Late st Contact Info) Description 01/10/2025 Refill [facility] MEDICINE [address] [place] [address] Ernie Noriega MD 230 [place] [address] Chronic midline low back pain without sciatica [...] difficult at all 01/12/2025 2:57 PM EDT [facility] Priti coronado [place] documented as of this encounter Plan of Treatment Upcoming Encounters Date Type Department Care Team (Late st Contact Info) Description 07/06/2025 11:15 AM EDT Office Visit [facility] MEDICINE [address] [place] [address] Ernie Noriega MD [address] [place] [address] documented as of this encounter Visit Diagnoses Diagnosis Chronic midline low back pain without sciatica documented in this encounter Additional Health Concerns Assessment Noted Time PHQ-9 Depression Total Score: 2 01/21/20 24 1:25 PM EDT documented as of this encounter Care Teams Automotive Power Electronics Engineer Relationship Specialty Start Date End Date Ernie Noriega MD [address] [place] [address] PCP - General Internal Medicine 08/25/19 [place] [facility] 03/31/25 05/25/25 Jesus VNA 05/25/25 documented as of this encounter
--- OUTSIDE RECORDS SUMMARY | 2025-06-09 09:40 | XMS_ITS | Encounter Summary ---
Author Organization [employer] Address [address] [facility] 7t [place] [address] Care Team Providers Care Potato Sorter Name Role Phone Ernie Noriega MD Primary Care Provide r Encounter Details Date Type Department Care Team (Late st Contact Info) Description 03/09/2025 Orders Only [facility] [address] [place], [place] [phone] ProviderNeville MD Social History Tobacco Use Types Packs/Day Years [...] Description 07/06/2025 11:15 AM EDT Office Visit [facility] MEDICINE 230 [place] [address] Ernie Noriega MD 230 [place] [address] documented as of this encounter Procedures Procedure Name Priority Date/Time Associated Diagnosis Comments CT THORACIC SPINE WO CONTRAST Routine 03/04/2025 9:47 AM EDT documented in this encounter Results * CT Throacic Spine w/o Contrast (03/04/2025 9:47 AM EDT) Anatomical Region Laterality Modality Spine, T-spine Computed Tomogra phy us Historical Provider MD IBARRA CT PROCEDURES Final R esult documented in this encounter Visit Diagnoses Not on filedocumented in this encounter Additional Health Concerns Assessment Noted Time PHQ-9 Depression Total Score: 4 01/13/20 25 2:57 PM EDT documented as of this encounter Care Teams Potato Sorter Relationship Specialty Start Date End Date Ernie Noriega MD [address] [place] [address] PCP - General Internal Medicine 08/25/19 [place] [facility] 03/31/25 05/25/25 Jesus VNA 05/25/25 documented as of this encounter
--- OUTSIDE RECORDS SUMMARY | 2025-06-09 09:40 | XMS_ITS | Encounter Summary ---
Author Organization [employer] Address [address] [facility] 7t [place] [address] Care Team Providers Care Rock Wool Insulator Name Role Phone Ernie Noriega MD Primary Care Provide r Encounter Details Date Type Department Care Team (Late st Contact Info) Description 04/13/2023 Orders Only [facility] [address] [place] [address] [phone] Sugar Mitchell MD [address] [place] [address] [phone] Neuropathic pain of right lower extremity (Primary [...] Description 07/06/2025 11:15 AM EDT Office Visit [facility] [address] [place] [address] [phone] Ernie Noriega MD [address] [place] [address] documented as of this encounter Procedures Procedure [...] 1.210.Chronic Kidney Disease: Estimated GFR < 60 mL/min/1.69u5Jtbalo Kidney Disease: Estimated GFR < 15 mL/min/1.73m2 Glucose 151(H) 60 - 115 mg/dL [facility] Calcium 9.3 8.4 - 10.2 mg/dL [facility] Blood Venous blood specimen / Unknown 05/13/2023 8:40 AM EDT 05/13/2023 11:14 AM EDT us Sugar Mitchell MD LAB BLOOD ORDERABLES Final Resul t [facility] [address] [place] [address] [phone] documented in this encounter Visit Diagnoses Diagnosis Neuropathic pain of right lower extremity- Primary documented in this encounter Additional Health Concerns Assessment Noted Time PHQ-9 Depression Total Score: 0 12/02/19 23 2:38 PM EST documented as of this encounter Care Teams Rock Wool Insulator Relationship Specialty Start Date End Date Ernie Noriega MD [address] [place] [address] PCP - General Internal Medicine 08/25/19 [place] KELLYA 03/31/25 05/25/25 Jesus VNJuan C 05/25/25 documented as of this encounter
--- OUTSIDE RECORDS SUMMARY | 2025-06-09 09:40 | XMS_ITS | Encounter Summary ---
Author Organization [employer] Address [address] [facility] 7t [place] [address] Care Team Providers Care Fashion Marketer Name Role Phone Ernie Noriega MD Primary Care Provide r Reason for Visit * Reason Onset Date Comments Med Refill 04/13/2025 Encounter Details Date Type Department Care Team (Late st Contact Info) Description 04/13/[address] [facility] [address] [place] [address] Ernie Noriega MD [address] [place] [address] Primary osteoarthritis of knee, unspecified laterality Social [...] Description 07/06/2025 11:15 AM EDT Office Visit [facility] [address] [place] [address] Ernie Noriega MD [address] [place] [address] documented as of this encounter Visit Diagnoses Diagnosis Primary osteoarthritis of knee, unspecified laterality documented in this encounter Additional Health Concerns Assessment Noted Time PHQ-9 Depression Total Score: 4 01/13/20 25 2:57 PM EDT documented as of this encounter Care Teams Fashion Marketer Relationship Specialty Start Date End Date Ernie Noriega MD [address] [place] [address] PCP - General Internal Medicine 08/25/19 [place] VNA 03/31/25 05/25/25 Jesus VNA 05/25/25 documented as of this encounter
--- OUTSIDE RECORDS SUMMARY | 2025-06-09 09:40 | XMS_ITS | Encounter Summary ---
Author Organization [employer] Address [address] [facility] 7t [place] [address] Care Team Providers Care Internal Affairs Investigator Name Role Phone Ernie Noriega MD Primary Care Provide r Reason for Visit * Reason Onset Date Comments Med Refill 08/12/2024 Encounter Details Date Type Department Care Team (Late st Contact Info) Description 08/12/2024 Refill [facility] [address] [place] [address] Ilsa Robison, ANP [address] [place] [address] Primary osteoarthritis of knee, unspecified laterality Social [...] Description 07/06/2025 11:15 AM EDT Office Visit [facility] [address] [place] [address] Ernie Noriega MD [address] [place] [address] documented as of this encounter Visit Diagnoses Diagnosis Primary osteoarthritis of knee, unspecified laterality documented in this encounter Additional Health Concerns Assessment Noted Time PHQ-9 Depression Total Score: 2 01/21/20 24 1:25 PM EDT documented as of this encounter Care Teams Internal Affairs Investigator Relationship Specialty Start Date End Date Ernie Noriega MD [address] [place] [address] PCP - General Internal Medicine 08/25/19 [place] VNA 03/31/25 05/25/25 Jesus VNA 05/25/25 documented as of this encounter
--- OUTSIDE RECORDS SUMMARY | 2025-06-09 09:40 | XMS_ITS | Encounter Summary ---
Author Organization [employer] Address [address] [facility] 7t [place] [address] Care Team Providers Care Director Specialty Name Role Phone Ernie Noriega MD Primary Care Provide r Reason for Visit * Reason Onset Date Comments Med Refill 10/25/2024 Encounter Details Date Type Department Care Team (Late st Contact Info) Description 10/25/2024 Refill [facility] [address] [place] [address] Ernei Noriega MD [address] [place] [address] Chronic midline low back pain without sciatica [...] Description 07/06/2025 11:15 AM EDT Office Visit [facility] [address] [place] [address] Ernie Noriega MD [address] [place] [address] documented as of this encounter Visit Diagnoses Diagnosis Chronic midline low back pain without sciatica documented in this encounter Additional Health Concerns Assessment Noted Time PHQ-9 Depression Total Score: 2 01/21/20 24 1:25 PM EDT documented as of this encounter Care Teams Director Specialty Relationship Specialty Start Date End Date Ernie Noriega MD [address] [place] [address] PCP - General Internal Medicine 08/25/19 [place] VNA 03/31/25 05/25/25 Jesus VNA 05/25/25 documented as of this encounter
--- OUTSIDE RECORDS SUMMARY | 2025-06-09 09:40 | XMS_ITS | Encounter Summary ---
Author Organization [email or web address] Address [address] [place] [address] 7t [place] [address] Care Team Providers Care Strategy Lead Name Role Phone Ernie Noriega MD Primary Care Provide r Reason for Visit * Reason Onset Date Comments Appointment Request 02/17/2023 Encounter Details Date Type Department Care Team ([facility] st Contact Info) Description 02/17/2023 Telephone [facility] [address] [place] [address] Ernie Noriega MD [address] [place] [address] Appointment Request Social History Tobacco Use Types [...] a colonoscopy due to advise by her starch dumper in [facility] Please contact pt AT [phone] Uzbek Speaker documented in this encounter Plan of Treatment Upcoming Encounters Date Type Department Care Team (Late st Contact Info) Description 07/06/2025 11:15 AM EDT Office Visit [facility] 230 [facility] [place] [address] Ernie Noriega MD [address] [place] [address] documented as of this encounter Visit Diagnoses Not on filedocumented in this encounter Additional Health Concerns Assessment Noted Time PHQ-9 Depression Total Score: 0 12/02/19 23 2:38 PM EST documented as of this encounter Care Teams Strategy Lead Relationship Specialty Start Date End Date Ernie Noriega MD [address] [place] [address] PCP - General Internal Medicine 08/25/19 [place] VNA 03/31/25 05/25/25 Jesus VNA 05/25/25 documented as of this encounter
--- OUTSIDE RECORDS SUMMARY | 2025-06-09 09:40 | XMS_ITS | Encounter Summary ---
Author Organization [employer] Address [address] [facility] 7t [place] [address] Care Team Providers Care Profiling Machine Setup Operator Name Role Phone Ernie Noriega MD Primary Care Provide r Reason for Visit * Reason Onset Date Comments Med Refill 03/22/2025 Encounter Details Date Type Department Care Team (Late st Contact Info) Description 03/22/2025 Refill [facility] [address] [place] [address] Ernie Noriega MD [address] [place] [address] Gastritis without bleeding, unspecified chronicity, unspecified gastritis type; Ischial pain, right; Pain; Chronic midline low back pain without sciatica [...] Description 07/06/2025 11:15 AM EDT Office Visit [facility] [address] [place] [address] Ernie Noriega MD [address] [place] [address] documented as of this encounter Visit Diagnoses Diagnosis Gastritis without bleeding, unspecified chronicity, unspecified gastritis type Ischial pain, right Pain Generalized pain Chronic midline low back pain without sciatica documented in this encounter Additional Health Concerns Assessment Noted Time PHQ-9 Depression Total Score: 4 01/13/20 2:57 PM EDT documented as of this encounter Care Teams Profiling Machine Setup Operator Relationship Specialty Start Date End Date Ernie Noriega MD [address] [place] [address] PCP - General Internal Medicine 08/25/19 [place] VNA 03/31/25 05/25/25 Jesus VNA 05/25/25 documented as of this encounter
--- OUTSIDE RECORDS SUMMARY | 2025-06-09 09:41 | XMS_ITS | Encounter Summary ---
Author Organization [employer] Address [address] [facility] 7t [place] [address] Care Team Providers Care Media Intern Name Role Phone Ernie Noriega MD Primary Care Provide r Reason for Visit * Reason Onset Date Comments Med Refill 09/28/2024 Encounter Details Date Type Department Care Team (Late st Contact Info) Description 09/28/2024 Refill [facility] [address] [place] [address] Ernie Noriega MD [address] [place] [address] Primary osteoarthritis of knee, unspecified laterality Social [...] Office Visit [facility] [address] [place] [address] Ernie Noriega MD [address] [place] [address] documented as of this encounter Visit Diagnoses Diagnosis Primary osteoarthritis of knee, unspecified laterality documented in this encounter Additional Health Concerns Assessment Noted Time PHQ-9 Depression Total Score: 2 01/21/20 24 1:25 PM EDT documented as of this encounter Care Teams Media Intern Relationship Specialty Start Date End Date Ernie Noriega MD [address] [place] [address] PCP - General Internal Medicine 08/25/19 [place] VNA 03/31/25 05/25/25 Jesus VNA 05/25/25 documented as of this encounter
--- OUTSIDE RECORDS SUMMARY | 2025-06-09 09:41 | XMS_ITS | Encounter Summary ---
Author Organization [employer] Address [address] [facility] 7t [place] [address] Care Team Providers Care Audit Intern Name Role Phone Ernie Noriega MD Primary Care Provide r Reason for Visit * Reason Comments Med Refill Encounter Details Date Type Department Care Team ([facility] st Contact Info) Description 04/01/2025 Refill [facility] [address] [place] [address] Ernie Noriega MD 230 [place], [place] [phone] Primary hypertension; Seasonal allergies Social History Tobacco [...] your housing situation today? I have robin ramríez 01/21/[address] you li [...] this encounter Functional Status * Over the last 2 weeks, how often have you been bothered by any of the following problems? Question Answer Date of Assessment Author Feeling nervous, anxious, or on edge 2 04/04/2025 10:11 AM Rogelio Morgan [place] Not being able to stop or control worrying 2 04/04/2025 10:11 AM Rogelio Morgan [place] Worrying too much about different things 2 04/04/2025 10:11 AM Rogelio Morgan [place] Trouble relaxing 2 04/04/2025 10:11 AM Priti Morgan [place] Being so restless that it is hard to sit still 2 04/04/2025 10:11 AM Rogelio Morgan [place] Becoming easily annoyed or irritable 1 04/04/2025 10:11 AM Rogelio Morgan [place] Feeling afraid as if somethi ng awful might happen 1 04/04/2025 10:11 AM Rogelio Morgan MA PIERO-7 Total Score 12 04/04/2025 10:11 AM Priti Morgan [place] documented as of this encounter Plan of Treatment Upcoming Encounters Date Type Department Care Team ([facility] st Contact Info) Description 07/06/2025 11:15 AM EDT Office Visit [facility] [address] [place] [address] Ernie Noriega MD [address] [place] [address] documented as of this encounter Visit Diagnoses Diagnosis Primary hypertension Unspecified essential hypertension Seasonal allergies Allergic rhinitis, cause unspecified documented in this encounter Additional Health Concerns Assessment Noted Time PHQ-9 Depression Total Score: 4 01/13/20 25 2:57 PM EDT documented as of this encounter Care Teams Audit Intern Relationship Specialty Start Date End Date Ernie Noriega MD 230 [place] [address] PCP - General Internal Medicine 08/25/19 [place] VNA 03/31/25 05/25/25 Jesus VNA 05/25/25 documented as of this encounter
--- OUTSIDE RECORDS SUMMARY | 2025-06-09 09:41 | XMS_ITS | Encounter Summary ---
Author Organization [employer] Address 75 [facility] 7t [place] [address] Care Team Providers Care Production Control Expediter Name Role Phone Ernie Noriega MD Primary Care Provide r Reason for Visit * Reason Onset Date Comments Med Refill 09/28/2024 Encounter Details Date Type Department Care Team ([facility] st Contact Info) Description 09/28/[address] [facility]INE [address] [place] [address] Ernie Nroiega MD 230 [place] [address] Med Refill Social History Tobacco Use Types [...] MG capsule To be sent to: [facility]/pharmacy #[id number] [place] [address] documented in this encounter Plan of Treatment Upcoming Encounters Date Type Department Care Team (Late st Contact Info) Description 07/06/2025 11:15 AM EDT Office Visit [facility] [address] [place] [address] Ernie Noriega MD [address] [place] [address] documented as of this encounter Visit Diagnoses Not on filedocumented in this encounter Additional Health Concerns Assessment Noted Time PHQ-9 Depression Total Score: 2 01/21/20 24 1:25 PM EDT documented as of this encounter Care Teams Production Control Expediter Relationship Specialty Start Date End Date Ernie Noriega MD [address] [place] [address] PCP - General Internal Medicine 08/25/19 [place] KELLYA 03/31/25 05/25/25 Jesus VNA 05/25/25 documented as of this encounter
--- OUTSIDE RECORDS SUMMARY | 2025-06-09 09:41 | XMS_ITS | Encounter Summary ---
Author Organization [employer] Address [address] [facility] 7t [place] [address] Care Team Providers Care High School Academic Coach Name Role Phone Ernie Noriega MD Primary Care Provide r Reason for Visit * Reason Onset Date Comments Med Refill 10/12/2024 Encounter Details Date Type Department Care Team (Late st Contact Info) Description 10/12/2024 Refill [facility] 230 [place] [address] Ernie Noriega MD [address] [place] [address] Primary osteoarthritis of knee, unspecified laterality Social [...] Description 07/06/2025 11:15 AM EDT Office Visit [facility] [address] [place] [address] Ernie Noriega MD [address] [place] [address] documented as of this encounter Visit Diagnoses Diagnosis Primary osteoarthritis of knee, unspecified laterality documented in this encounter Additional Health Concerns Assessment Noted Time PHQ-9 Depression Total Score: 2 01/21/20 24 1:25 PM EDT documented as of this encounter Care Teams High School Academic Coach Relationship Specialty Start Date End Date Ernie Noriega MD [address] [place] [address] PCP - General Internal Medicine 08/25/19 [place] VNA 03/31/25 05/25/25 Jesus VNA 05/25/25 documented as of this encounter
--- OUTSIDE RECORDS SUMMARY | 2025-06-09 09:41 | XMS_ITS | Encounter Summary ---
Author Organization [employer] Address [address] [facility] 7t [place] [address] Care Team Providers Care Timber Grader Name Role Phone Ernie Noriega MD Primary Care Provide r Reason for Visit * Reason Comments Med Refill Encounter Details Date Type Department Care Team ([facility] st Contact Info) Description 10/16/[address] [facility] [address] [place] [address] Ernie Noriega MD [address] [place], [place] [phone] Pain Social History Tobacco Use Types Packs/Day [...] AM EDT Office Visit [facility] [address] [place] [address] Ernie Noriega MD [address] [place] [address] documented as of this encounter Visit Diagnoses Diagnosis Pain Generalized pain documented in this encounter Additional Health Concerns Assessment Noted Time PHQ-9 Depression Total Score: 0 12/02/19 23 2:38 PM EST documented as of this encounter Care Teams Timber Grader Relationship Specialty Start Date End Date Ernie Noriega MD [address] [place] [phone] PCP - General Internal Medicine 08/25/19 [place] VNA 03/31/25 05/25/25 Jesus VNA 05/25/25 documented as of this encounter
--- OUTSIDE RECORDS SUMMARY | 2025-06-09 09:41 | XMS_ITS | Encounter Summary ---
Author Organization [employer] Address [address] [facility] 7t [place] [address] Care Team Providers Care Chemical Research Technician Name Role Phone Ernie Noriega MD Primary Care Provide r Reason for Visit * Reason Onset Date Comments Med Refill 10/27/2023 Encounter Details Date Type Department Care Team (Late st Contact Info) Description 10/27/2023 Refill [facility] [address] [place] [address] Perlita Woody MD [address] [place] [address] Primary hypertension Social History Tobacco Use Types [...] [facility] [address] [place] [address] Ernie Noriega MD [address] [place] [address] documented as of this encounter Visit Diagnoses Diagnosis Primary hypertension Unspecified essential hypertension documented in this encounter Additional Health Concerns Assessment Noted Time PHQ-9 Depression Total Score: 0 12/02/19 23 2:38 PM EST documented as of this encounter Care Teams Chemical Research Technician Relationship Specialty Start Date End Date Ernie Noriega MD [address] [place] [address] PCP - General Internal Medicine 08/25/19 [place] VNA 03/31/25 05/25/25 Jesus VNA 05/25/25 documented as of this encounter
--- OUTSIDE RECORDS SUMMARY | 2025-06-09 09:41 | XMS_ITS | Encounter Summary ---
Author Organization [employer] Address [address] [facility] 7t [place] [address] Care Team Providers Care Fruit Picker Name Role Phone Ernie Noriega MD Primary Care Provide r Reason for Visit * Reason Onset Date Comments Med Refill 10/27/2023 Encounter Details Date Type Department Care Team (Late st Contact Info) Description 10/27/2023 Refill [facility] [address] [place] [address] Ernie Noriega MD [address] [place] [address] Mild persistent asthma without complication; Pain; Chronic [...] 07/06/2025 11:15 AM EDT Office Visit [facility] [address] [place] [address] Ernie Noriega MD [address] [place] [address] documented as of this encounter Visit Diagnoses Diagnosis Mild persistent asthma without complication Pain Generalized pain Chronic midline low back pain without sciatica Cervical radiculopathy Brachial neuritis or radiculitis nos documented in this encounter Additional Health Concerns Assessment Noted Time PHQ-9 Depression Total Score: 0 12/02/19 23 2:38 PM EST documented as of this encounter Care Teams Fruit Picker Relationship Specialty Start Date End Date Ernie Noriega MD [address] [place] [address] PCP - General Internal Medicine 08/25/19 [place] VNA 03/31/25 05/25/25 Jesus VNA 05/25/25 documented as of this encounter
--- OUTSIDE RECORDS SUMMARY | 2025-06-09 09:41 | XMS_ITS | Encounter Summary ---
Author Organization [employer] Address 75 [facility] 7t [place] [address] Care Team Providers Care Cigarette Seller Name Role Phone Ernie Noriega MD Primary Care Provide r Reason for Visit * Reason Onset Date Comments Med Refill 10/25/2023 Encounter Details Date Type Department Care Team ([facility] st Contact Info) Description 10/25/2023 Refill [facility] [address] [place] [address] Ernie Noriega MD [address] [place] [address] Social History Tobacco Use Types Packs/Day Years [...] Description 07/06/2025 11:15 AM EDT Office Visit [facility] MEDICINE [address] [place] [address] Ernie Noriega MD [address] [place] [address] documented as of this encounter Visit Diagnoses Not on filedocumented in this encounter Additional Health Concerns Assessment Noted Time PHQ-9 Depression Total Score: 0 12/02/19 23 2:38 PM EST documented as of this encounter Care Teams Cigarette Seller Relationship Specialty Start Date End Date Ernie Noriega MD [address] [place] [address] PCP - General Internal Medicine 08/25/19 [place] VNA 03/31/25 05/25/25 Jesus VNA 05/25/25 documented as of this encounter
--- OUTSIDE RECORDS SUMMARY | 2025-06-09 09:41 | XMS_ITS | Patient Health Record ---
Author Organization [facility] Address [address] [place] [address] Care Team Providers Care Dialer Name Role Phone Milton Ro MD, Ernie Primary Care Provide r Unavailable Rodrick Millan Unavailable [phone] Allergies No Known Allergies Reason For Referral No Information Medications Medication [...] as needed Inhalation every 4 hrs Active Gdgdvrwomc-Nurfgtr-Yhxxwihq 50-325-40 MG 1 capsule as needed Orally [...] Problem Status W/U Status Risk Notes Problem 850629875 Colon cancer screening (Z12.11) Active confirmed Problem Diverticulosis o f large intestine without perforation or abscess without bleeding (K57.30) Active confirmed Problem [id number] Preprocedural examination (Z01.818) Active confirmed Problem 679128753 Encounter for long-term (current) use of NSAIDs (Z79.1) Active confirmed Plan Of Treatment Pending Test Test Name Order Date Pathology 03/18/2024 Future Test Test Name Order Date COLONOSCOPY 03/24/2013 COLONOSCOPY 08/11/2023 Insurance Providers Payer Name Payer Address Payer Phone Subscriber Number Group Number Insured Name Patient Relationship to Insured Coverage Start Date Coverage End Date [facility] [facility] [place] [facility] [address] [place] [phone] [id number] ISHMAEL HINOJOSA Self - patient is the insured Medical (General) History Medical History History ICD Code Denies VT,DM,CVA,renal disease Asthma Depression/anxiety Hypertension Negative screening colonoscopy in 06/2013 Arthritis/Body aches Surgical History Surgery Date(Month/Year) Back surgery for disc disease Bilateral carpal tunnel Left shoulder C-spine disc surgery Bilateral knee replacements Might be having a left shoulder replacem ent as of the 07/2023 OV
--- OUTSIDE RECORDS SUMMARY | 2025-06-09 09:41 | XMS_ITS | Encounter Summary ---
Author Organization [employer] Address 75 [facility] 7t [place] [address] Care Team Providers Care Residential Concierge Name Role Phone Ernie Noriega MD Primary Care Provide r Reason for Visit * Reason Onset Date Comments Med Refill 10/25/2023 Encounter Details Date Type Department Care Team (Late st Contact Info) Description 10/25/2023 Refill [facility] [address] [place] [address] Perlita Woody MD [address] [place] [address] Primary hypertension Social History Tobacco Use Types [...] Description 07/06/2025 11:15 AM EDT Office Visit [facility] MEDICINE [address] [place] [address] Ernie Noriega MD [address] [place] [address] documented as of this encounter Visit Diagnoses Diagnosis Primary hypertension Unspecified essential hypertension documented in this encounter Additional Health Concerns Assessment Noted Time PHQ-9 Depression Total Score: 0 12/02/19 23 2:38 PM EST documented as of this encounter Care Teams Residential Concierge Relationship Specialty Start Date End Date Ernie Noriega MD [address] [place] [address] PCP - General Internal Medicine 08/25/19 [place] VNA 03/31/25 05/25/25 Jesus VNA 05/25/25 documented as of this encounter
--- OUTSIDE RECORDS SUMMARY | 2025-06-09 09:41 | XMS_ITS | Encounter Summary ---
Author Organization [employer] Address [address] [facility] 7[address] [place] [address] Care Team Providers Care Demonstrator Sewing Techniques Name Role Phone Ernie Noriega MD Primary Care Provide r Reason for Visit * Reason Onset Date Comments Med Refill 01/31/2025 Encounter Details Date Type Department Care Team ([facility] st Contact Info) Description 01/31/2025 Refill [facility] [address] [place] [address] Ernie Noriega MD [address] [place] [address] Pain Social History Tobacco Use Types Packs/Day [...] [facility] [address] [place] [address] Ernie Noriega MD [address] [place] [address] documented as of this encounter Visit Diagnoses Diagnosis Pain Generalized pain documented in this encounter Additional Health Concerns Assessment Noted Time PHQ-9 Depression Total Score: 4 01/13/20 25 2:57 PM EDT documented as of this encounter Care Teams Demonstrator Sewing Techniques Relationship Specialty Start Date End Date Ernie Noriega MD [address] [place] [id number] PCP - General Internal Medicine 08/25/19 Elida [facility] 03/31/25 05/25/25 Jesus [facility] 05/25/25 documented as of this encounter
--- OUTSIDE RECORDS SUMMARY | 2025-06-09 09:41 | XMS_ITS | Encounter Summary ---
Author Organization [employer] Address [address] [place] [address] Care Team Providers Care Flat Cutter Name Role Phone Ernie Merritt MD Primary Care Provi bobo Encounter Details Date Type Department Care Team (Late st Contact Info) Description 05/23/2025 Lab Requisition [facility] [address] [facility] [place] [address] Partha Hermosillo MD [address] [place] [address] Fusion of spine, lumbar region Social History Tobacco Use Types Packs/Day Years [...] on file documented as of this encounter Plan of Treatment Not on file documented as of this encounter Procedures Procedure Name Priority Date/Time Associated Diagnosis Comments COMPLETE BLOOD COUNT Routine 05/23/2025 8:40 AM EDT Fusion of spine, lumbar region THYROID STIMULATING HORMONE Routine 05/23/2025 8:40 AM EDT Fusion of spine, lumbar region FOLATE Routine 05/23/2025 8:40 AM EDT Fusion of spine, lumbar region VITAMIN B12 Routine 05/23/2025 8:40 AM EDT Fusion of spine, lumbar region BASIC METABOLIC PANEL Routine 05/23/2025 8:40 AM EDT Fusion of spine, lumbar region documented in this encounter Results * (ABNORMAL) Vitamin B12 (05/23/2025 8:40 AM EDT) [facility] Vitamin B-12 1,040(H) 250 - 900 pcg/mL LAB CHEMISTRY METHOD 05/23/2025 12:[address] [facility] Blood Venous blood specimen / Unknown Venipuncture / Unknown 05/23/2025 8:40 AM EDT 05/23/2025 9:43 AM EDT Partha Hermosillo MD LAB BLOOD ORDERABLES Final Result Performing Organization Address City/[facility]/ZIP Co de Phone Number [facility] [address] [place] [address], [place] [phone] * (ABNORMAL) Folate (05/23/2025 8:40 AM EDT) [facility] Folate >20.0(H) 2.8 - 17.0 ng/ml LAB CHEMISTRY METHOD 05/23/2025 12:[address] [facility] Blood Venous blood specimen / Unknown Venipuncture / Unknown 05/23/2025 8:40 AM EDT 05/23/2025 9:43 AM EDT Partha Hermosillo MD LAB BLOOD ORDERABLES Final Result [facility] [address] [place] [address], [place] [phone] * Thyroid stimulating hormone (05/23/2025 8:40 AM EDT) [facility] TSH 1.49 0.40 - 4.00 mcIU/mL LAB CHEMISTRY METHOD 05/23/2025 1:07 PM [facility] Blood Venous blood specimen / Unknown Venipuncture / Unknown 05/23/2025 8:40 AM EDT 05/23/2025 9:43 AM EDT us Partha Hermosillo MD LAB BLOOD ORDERABLES Final Result [facility] [address] [place] [address], [place] [phone] * (ABNORMAL) Basic metabolic panel (05/23/2025 8:40 AM EDT) Sodium 135 133 - 145 mmol/L LAB CHEMISTRY METHOD 05/23/2025 12:33 PM [facility] Potassium 4.0 3.5 - 5.5 mmol/L LAB CHEMISTRY METHOD 05/23/2025 12:33 PM [facility] Chloride 99 96 - 110 mmol/L LAB CHEMISTRY METHOD 05/23/2025 12:33 PM [facility] CO2 27 21 - 32 mmol/L LAB CHEMISTRY METHOD 05/23/2025 12:33 PM [facility] Anion Gap 9 3 - 11 LAB CHEMISTRY METHOD 05/23/2025 12:33 PM [facility] Glucose 121(H) 70 - 100 mg/dL LAB CHEMISTRY METHOD 05/23/2025 12:33 PM [facility] BUN 13 5 - 25 mg/dL LAB CHEMISTRY METHOD 05/23/2025 12:33 PM [facility] Creatinine 0.47(L) 0.50 - 1.10 mg/dL LAB CHEMISTRY METHOD 05/23/2025 12:33 PM [facility] eGFR 108 >=60 mL/min/1. 73m2 LAB CHEMISTRY METHOD [facility]/23[facility]25 [facility] Comment:Calculation based on the Chronic Kidney Disease Epidemiology Collaboration (CKD-EPI) equation refit without adjustment for race. BUN/Creatinine Ratio 27.7 LAB CHEMISTRY METHOD 05/23/2025 12:33 PM [facility] Calcium 8.8 8.5 - 10.5 mg/dL LAB CHEMISTRY METHOD 05/23/2025 12:33 PM [facility] Blood Venous blood specimen / Unknown Venipuncture / Unknown 05/23/2025 8:40 AM EDT 05/23/2025 9:43 AM EDT Partha Hermosillo MD LAB BLOOD ORDERABLES Final Result [facility] [address] [place] [address], [place] [phone] * (ABNORMAL) Complete blood count (05/23/2025 8:40 AM EDT) WBC 8.9 4.8 - 10.8 K/mcL LAB HEMETOLOGY METHOD 05/23/2025 10:45 AM [facility] RBC 3.10(L) 3.80 - 4.80 M/mcL LAB HEMETOLOGY METHOD 05/23/2025 10:45 AM [facility] Hemoglobin 8.4(L) 11.5 - 16.0 g/dL LAB HEMETOLOGY METHOD 05/23/2025 10:45 AM [facility] Hematocrit 27.6(L) 35.0 - 47.0 % LAB HEMETOLOGY METHOD 05/23/2025 10:45 AM [facility] MCV 90.2 79.0 - 98.0 FL LAB HEMETOLOGY METHOD 05/23/2025 10:45 AM [facility] MCH 27.5 27.0 - 32.0 pcg LAB HEMETOLOGY METHOD 05/23/2025 10:[address] [facility] MCHC 30.4(L) 32.0 - 37.0 g/dL LAB HEMETOLOGY METHOD 05/23/2025 10:[address] [facility] RDW 14.9 11.0 - 15.0 % LAB HEMETOLOGY METHOD 05/23/2025 10:[address] [facility] Platelets 750(H) 130 - 400 K/mcL LAB HEMETOLOGY METHOD 05/23/2025 10:[address] [facility] MPV 9.4 7.0 - 11.0 FL LAB HEMETOLOGY METHOD 05/23/2025 10:[address] [facility] NRBC 0.0 <1.0 % LAB HEMETOLOGY METHOD 05/23/2025 10:[address] [facility] NRBC Absolute 0.00 <0.10 K/mcL LAB HEMETOLOGY METHOD 05/23/2025 10:[address] [facility] Blood Venous blood specimen / Unknown Venipuncture / Unknown 05/23/2025 8:40 AM EDT 05/23/2025 9:43 AM EDT us Partha Hermosillo MD LAB BLOOD ORDERABLES Final Result [facility] [address] [place] [address], documented in this encounter Visit Diagnoses Diagnosis Fusion of spine, lumbar region documented in this encounter Care Teams Flat Cutter Relationship Specialty Start Date End Date Ernie Merritt MD [address] [place] [address] [place] [address] PCP - General Internal Medicine 05/20/21 documented as of this encounter
--- OUTSIDE RECORDS SUMMARY | 2025-06-09 09:41 | XMS_ITS | Encounter Summary ---
Author Organization [employer] Address [address] [facility] 7t [place] [address] Care Team Providers Care Superannuation Funds Manager Name Role Phone Ernie Noriega MD Primary Care Provide r Reason for Visit * Reason Onset Date Comments Nurse Triage 12/22/2024 Encounter Details Date Type Department Care Team ([facility] st Contact Info) Description 12/22/2024 Telephone [facility] [address] [place] [address] Ernie Noriega MD [address] [place] [address] Nurse Triage Social History Tobacco Use Types [...] 12/22/2024 10:03 AM EDT 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 Pt. States that she went to [...] leg pain now Please contact pt at [phone]. (Wolof Speaker) documented in this encounter Plan of Treatment Upcoming Encounters Date Type Department Care Team (Late st Contact Info) Description 07/06/2025 11:15 AM EDT Office Visit [facility] [address] [place] [address] Ernie Noriega MD [address] [place] [address] documented as of this encounter Visit Diagnoses Not on filedocumented in this encounter Additional Health Concerns Assessment Noted Time PHQ-9 Depression Total Score: 2 01/21/20 24 1:25 PM EDT documented as of this encounter Care Teams Superannuation Funds Manager Relationship Specialty Start Date End Date Ernie Noriega MD [address] [place] [id number] PCP - General Internal Medicine 08/25/19 Elida KELLYA 03/31/25 05/25/25 [facility] 05/25/25 documented as of this encounter
--- OUTSIDE RECORDS SUMMARY | 2025-06-09 09:41 | XMS_ITS | Clinical Summary ---
Author Organization [address] [facility] Address [address] [place] [address] Phone Care Team Providers Care Criminal Justice Professor Name Role Phone Ernie Merritt MD Primary [...] Encounters Date Type Department Care Team Description 05/23/2025 Lab Requisition [facility] [address] [place] [address] Partha Hermosillo MD Fusion of spine, lumbar region from Last 3 Months Surgical History Surgery [...] 1963 Cervical Cancer Screening: Pap Smear 1984 HIV Screening 09/21/2022 Social Influencers of Health Screening 09/21/2022 RSV Immunization Adult Patients (1 - Risk 60-74 years 1-dose series) 2023 COVID-19 Vaccine ( season) 2024 07/16/2022, 08/28/2021, 02/22/2021, Additional history exists Depression Screening 10/12/2024 Influenza Vaccine (#1) 2025 , 07/21/2023, 07/16/2022, Additional history exists Hypertension/CHF/CAD Annual BMP Blood Test 05/23/2026 05/23/2025, 05/21/2025, 05/20/2025, Additional history exists Cholesterol Screening (Lipid Panel) 01/25/2030 01/25/2025 DTaP,Tdap,and Td Vaccines (4 - Td or Tdap) 04/04/2031 04/04/2021, 03/10/2014, 05/12/2012 Colorectal Cancer Screening: Colonoscopy 03/18/2034 03/18/2024 Zoster Vaccines Completed 08/15/2020, 05/26/2020 Hepatitis C [...] Procedure Name Priority Date/Time Associated Diagnosis Comments VITAMIN B12 Routine 05/23/2025 8:40 AM EDT Fusion of spine, lumbar region FOLATE Routine 05/23/2025 8:40 AM EDT Fusion of spine, lumbar region THYROID STIMULATING HORMONE Routine 05/23/2025 8:40 AM EDT Fusion of spine, lumbar region BASIC METABOLIC PANEL Routine 05/23/2025 8:40 AM EDT Fusion of spine, lumbar region COMPLETE BLOOD COUNT Routine 05/23/2025 8:40 AM EDT Fusion of spine, lumbar region from Last 3 Months Results * (ABNORMAL) Complete blood count (05/23/2025 8:40 AM EDT) [facility] WBC 8.9 4.8 - 10.8 K/mcL LAB HEMETOLOGY METHOD 05/23/2025 10:45 AM [facility] RBC 3.10(L) 3.80 - 4.80 M/mcL LAB HEMETOLOGY METHOD 05/23/2025 10:45 AM [facility] Hemoglobin 8.4(L) 11.5 - 16.0 g/dL LAB HEMETOLOGY METHOD 05/23/2025 10:45 AM [facility] Hematocrit 27.6(L) 35.0 - 47.0 % LAB HEMETOLOGY METHOD 05/23/2025 10:45 AM [facility] MCV 90.2 79.0 - 98.0 FL LAB HEMETOLOGY METHOD 05/23/2025 10:45 AM [facility] MCH 27.5 27.0 - 32.0 pcg LAB HEMETOLOGY METHOD 05/23/2025 10:45 AM [facility] MCHC 30.4(L) 32.0 - 37.0 g/dL LAB HEMETOLOGY METHOD 05/23/2025 10:45 AM [facility] RDW 14.9 11.0 - 15.0 % LAB HEMETOLOGY METHOD 05/23/2025 10:45 AM [facility] Platelets 750(H) 130 - 400 K/mcL LAB HEMETOLOGY METHOD 05/23/2025 10:45 AM EDT [facility] MPV 9.4 7.0 - 11.0 FL LAB HEMETOLOGY METHOD 05/23/2025 10:45 AM EDT [facility] NRBC 0.0 <1.0 % LAB HEMETOLOGY METHOD 05/23/2025 10:45 AM EDT [facility] NRBC Absolute 0.00 <0.10 K/mcL LAB HEMETOLOGY METHOD 05/23/2025 10:45 AM EDT [facility] Blood Venous blood specimen / Unknown Venipuncture / Unknown 05/23/2025 8:40 AM EDT 05/23/2025 9:43 AM EDT Partha Hermosillo MD LAB BLOOD ORDERABLES Final Result Performing Organization Address [facility] [address]/ZIP Co de Phone Number [facility] [address] [place] [address], * Thyroid stimulating hormone (05/23/2025 8:40 AM EDT) TSH 1.49 0.40 - 4.00 mcIU/mL LAB CHEMISTRY METHOD 05/23/2025 1:07 PM EDT [facility] Blood Venous blood specimen / Unknown Venipuncture / Unknown 05/23/2025 8:40 AM EDT 05/23/2025 9:43 AM EDT Partha Hermosillo MD LAB BLOOD ORDERABLES Final Result [facility] [address] [place] [address], [place] [phone] * (ABNORMAL) Folate (05/23/2025 8:40 AM EDT) Folate >20.0(H) 2.8 - 17.0 ng/ml LAB CHEMISTRY METHOD 05/23/2025 12:33 PM EDT [facility] Blood Venous blood specimen / Unknown Venipuncture / Unknown 05/23/2025 8:40 AM EDT 05/23/2025 9:43 AM EDT us Partha Hermosillo MD LAB BLOOD ORDERABLES Final Result Performing Organization Address City/[facility] [address]/ZIP Co de Phone Number [facility] [address] [place] [address], [place] [phone] * (ABNORMAL) Vitamin B12 (05/23/2025 8:40 AM EDT) [facility] Vitamin B-12 1,040(H) 250 - 900 pcg/mL LAB CHEMISTRY METHOD 05/23/2025 12:33 PM EDT [facility] Blood Venous blood specimen / Unknown Venipuncture / Unknown 05/23/2025 8:40 AM EDT 05/23/2025 9:43 AM EDT us Partha Hermosillo MD LAB BLOOD ORDERABLES Final Result Performing Organization Address City/[facility] [address]/ZIP Co de Phone Number [facility] [address] [place] [address], [place] [phone] * (ABNORMAL) Basic metabolic panel (05/23/2025 8:40 AM EDT) [facility] Sodium 135 133 - 145 mmol/L LAB CHEMISTRY METHOD 05/23/2025 12:33 PM EDT [facility] Potassium 4.0 3.5 - 5.5 mmol/L LAB CHEMISTRY METHOD 05/23/2025 12:33 PM EDT [facility] Chloride 99 96 - 110 mmol/L LAB CHEMISTRY METHOD 05/23/2025 12:33 PM EDT [facility] CO2 27 21 - 32 mmol/L LAB CHEMISTRY METHOD 05/23/2025 12:33 PM EDT [facility] Anion Gap 9 3 - 11 LAB CHEMISTRY METHOD 05/23/2025 12:33 PM EDT [facility] Glucose 121(H) 70 - 100 mg/dL LAB CHEMISTRY METHOD 05/23/2025 12:33 PM EDT [facility] BUN 13 5 - 25 mg/dL LAB CHEMISTRY METHOD 05/23/2025 12:33 PM EDT [facility] Creatinine 0.47(L) 0.50 - 1.10 mg/dL LAB CHEMISTRY METHOD 05/23/2025 12:33 PM EDT [facility] eGFR 108 >=60 mL/min/1. 73m2 LAB CHEMISTRY METHOD 05/23/2025 12:33 PM EDT [facility] Comment:Calculation based on the Chronic Kidney Disease Epidemiology Collaboration (CKD-EPI) equation refit without adjustment for race. BUN/Creatinine Ratio 27.7 LAB CHEMISTRY METHOD 05/23/2025 12:33 PM EDT [facility] Calcium 8.8 8.5 - 10.5 mg/dL LAB CHEMISTRY METHOD 05/23/2025 12:[facility] Blood Venous blood specimen / Unknown Venipuncture / Unknown 05/23/2025 8:40 AM EDT 05/23/2025 9:43 AM EDT Partha Hermosillo MD LAB BLOOD ORDERABLES Final Result [facility] [address] [place] [address], from Last 3 [place] [address] MEDICAID [id number] Advance Directives * Full Code - Default [...] currently active code status orders. Care Teams Criminal Justice Professor Relationship Specialty Start Date End Date Ernie Merritt MD [address] [place] [address] [place] [address] PCP - General Internal Medicine 05/20/21
--- OUTSIDE RECORDS SUMMARY | 2025-06-09 09:41 | XMS_ITS | Clinical Summary ---
Author Organization [facility] Address [address] [place] [address] Care Team Providers Care Aging Room Operator Name Role Phone Ernie Merritt Primary Care Provider + Allergies Active Allergy Reactions Criticality Noted Date Comments Pollen Extracts Rhinorrhea 05/01/2025 Medications acetaminophen (TYLENOL) 500 mg tablet SMARTSI Tablet(s) By Mouth Every 12 Hours PRN 03/08/20 23 Active escitalopram (LEXAPRO) 5 mg tablet Take 5 mg by mouth once a day. 03/05/20 23 Active Advair Diskus 250-50 mcg/dose inhaler SMARTSI inhalation By Mouth Twice Daily 02/23/20 23 Active fluticasone propionate (FLONASE) 50 mcg/actuation nasal spray SMARTSI [place](s) Both Nares Twice Daily 12/29/19 23 Active tamsulosin (FLOMAX) 0.4 mg capsule Take 0.4 mg by mouth once a day. 03/10/20 23 Active lidocaine (LIDODERM) 5% patch Apply 1 patch topically to the affected area once a day. 02/20/20 23 Active montelukast (SINGULAIR) 10 mg tablet Take 10 mg by mouth nightly. 01/08/20 23 Active hydroCHLOROthia zide (HYDRODIURIL) 25 mg tablet Take 25 mg by mouth daily. 09/30/20 22 Active omeprazole (PriLOSEC) 20 mg capsule Take 20 mg by mouth once a day. 01/14/20 23 Active zolpidem (AMBIEN) 10 mg tablet Take 10 mg by mouth nightly as needed for sleep. 03/09/20 23 Active gabapentin (NEURONTIN) 600 mg tablet Take 600 mg by mouth 3 times a day. Active Ventolin HFA 90 mcg/actuation inhaler PLEASE SEE ATTACHED FOR DETAILED DIRECTIONS 04/26/20 Active bethanechol (URECHOLINE) 25 mg tablet SMARTSI Tablet(s) By Mouth 3 Times Daily 04/27/20 Active bisacodyL (DULCOLAX) 10 mg suppository Insert 1 suppository (10 mg total) into the rectum daily as needed for constipation (no bowel movement x 48 hours). 10 suppository 05/22/20 25 Active docusate sodium (COLACE) 100 mg capsule Take 1 capsule (100 mg total) by mouth 2 times a day. 10 capsule 05/22/20 25 Active heparin 5,000 unit/mL subcutaneous injection Inject 1 mL (5,000 Units total) under the skin every 8 hours. 90 mL 05/22/20 Active miconazole 2% powder Apply topically to the affected area 2 times a day. 71 g 05/22/20 25 Active naloxone (NARCAN) 0.4 mg/mL injection Infuse 1 mL (0.4 mg total) intravenously every 2 hours as needed for opioid reversal or respiratory depression. 1 mL 05/22/20 25 Active polyethylene glycol 3350 (MIRALAX) 17 gram packet Take 1 packet (17 g total) by mouth 2 times a day. Mix powder in 4 to 8 oz of water, juice, coffee, or tea prior to administration. 4 packet 05/22/20 25 Active senna (SENOKOT) 8.6 mg tablet Take 1 tablet (8.6 mg total) by mouth nightly. 10 tablet 05/22/20 25 Active methocarbamoL (ROBAXIN) 500 mg tablet Take 1 tablet (500 mg total) by mouth 4 times a day as needed for muscle spasms. 120 tablet 1 05/30/20 25 2024 Active docosahexaenoic acid-epa 120-180 mg capsule Take 1,000 mg by mouth daily. 2024 Discontin ued(Stop Taking at Discharge ) nabumetone (RELAFEN) 750 mg tablet Take 750 mg by mouth once a day. 02/25/20 23 2024 Discontin ued(Stop Taking at Discharge ) traMADoL (ULTRAM) 50 mg tablet SMARTSI Tablet(s) By Mouth Every 8 Hours PRN 03/06/20 23 2024 Discontin ued(Stop Taking at Discharge ) diclofenac (CATAFLAM) 50 mg tablet TOME 1 TABLETA POR VIA ORAL DOS VECES AL FERNANDO 04/27/20 25 2024 Discontin ued(Stop Taking at Discharge ) ibuprofen (MOTRIN) 200 mg tablet SMARTSI Tablet(s) By Mouth Every 8 Hours 03/18/20 25 2024 Discontin ued(Stop Taking at Discharge ) oxyCODONE IR (ROXICODONE) 5 mg tablet Take 5 mg by mouth every 6 hours as needed. 12/07/192024 Discontin ued(Stop Taking at Discharge ) sulfamethoxazol e-trimethoprim (BACTRIM DS) 800-160 mg tablet SMARTSI Tablet(s) By Mouth Twice Daily 04/27/20 25 2024 Discontin ued(Stop Taking at Discharge ) HYDROmorphone (DILAUDID) 2 mg tablet Take 1 tablet (2 mg total) by mouth every 4 hours as needed for pain for up to 3 days. Max Daily Amount: 12 mg 18 tablet 05/22/20 25 2024 morphine ER (MS CONTIN) 15 mg tablet Take 1 tablet (15 mg total) by mouth every 12 hours for 3 days. 6 tablet 05/22/20 25 2024 Active Problems Problem Noted Date Diagnosed Date Spinal deformity 05/12/2025 Asthma 05/01/2025 Class 1 obesity 05/01/2025 Pre-diabetes 05/28/2023 Neuropathic pain of right lower extremity 2022 Hyperlipidemia 12/04/2022 Essential hypertension 10/03/2022 Cervical radiculopathy 09/22/2017 History of total knee arthroplasty 07/15/2016 Depressive disorder 10/29/2012 GERD (gastroesophageal reflux disease) 2 Lump In / On The Skin 09/24/2010 Anxiety Disorder NOS 09/24/2010 Encounters Date Type Department Care Team Description 05/31/2025 Orders Only [facility] [address] [place] [id number] Heidi Knott PA S/P fusion of thoracic spine (Primary Dx) 05/31/2025 Telephone [facility] [address] [place] [address] Christopher Peres MD 05/30/2025 2:30 PM EDT Follow-Up [facility] [address] [place] [address] Fang Altamirano NP S/P fusion of thoracic spine (Primary Dx) 05/29/2025 Telephone [facility] [address] [place] [address] Fang Altamirano NP 05/12/2025 9:47 AM EDT Anesthesia Event [facility] Operating Room [address] [place] [address] Mu Vilchis MD He, MD Gorge 05/12/2025 7:05 AM EDT - 05/12/2025 9:35 PM EDT Surgery [facility] Operating Room [address] [place] [address] Christopher Peres MD FUSION, POSTERIOR, FOR SPINAL DEFORMITY, POSSIBLE CASTING, 7 TO 12 VERTEBRAL SEGMENTS [93944 (CPT )] 05/12/2025 5:58 AM EDT - 05/22/2025 2:42 PM EDT Hospital Encounter [facility] [address] [place] [address] Christopher Peres MD Discharge Disposition: Long-Term Facility (03) 04/11/2025 myChart Message [facility] Operating Room [address] [place] [id number] Salvatore Solorio Provider Questionnaire Submission 04/03/2025 Orders Only [facility] [address] [place] [phone] Interior Assemblies Developer Prover: Christopher Weber MD Other idiopathic scoliosis, thoracolumbar region (Primary Dx) 04/03/2025 Telephone [facility] [address] [place] [address] Ana Lilia Portillo PA 04/03/2025 Documentation [facility] [address] [place] [phone] Ana Lilia Portillo PA 04/03/2025 Telephone [facility] [address] [address] Telephone Intake, Staff PAC Patient Request Call Back; PAC Sick/Symptoms 03/22/2025 Telephone [facility] [address] [address] Telephone Intake, Staff PAC Surgery/procedure Scheduling 03/17/2025 10:59 AM EDT - 03/17/2025 11:59 PM EDT Hospital Encounter [facility] [address] [place] [address] Chronic bilateral low back pain with bilateral sciatica Discharge Disposition: Home or Self Care (01) 03/14/2025 3:00 PM EDT Follow-Up [facility] [address] [address] Christopher Peres MD Chronic bilateral low back pain with bilateral sciatica (Primary Dx) 03/14/2025 Orders Only [facility] [address] [address] Traci Garcia PA Chronic bilateral low back pain with bilateral sciatica (Primary Dx) from Last 3 Months Family History Medical History Relation Name Comments Coronary artery disease Maternal Half-brother S/P cabg Liver cancer Maternal Half-brother Diabetes Maternal Half-sister Myocardial Infarction Mother Heart failure Mother's Brother PPM Relation Name Status Comments Father Maternal Half-brother Maternal Half-sister Alive Mother Mother's Brother Alive Social History Tobacco Use Types Packs/Day Years [...] Sign Reading Time Taken Comments Blood Pressure 128/83 05/30/2025 3:07 PM EDT Pulse 71 05/30/2025 3:07 PM EDT Temperature 36.4 C (97.5 F) 05/30/2025 3:07 PM EDT Respiratory Rate 16 05/22/2025 12:0 0 PM EDT Oxygen Saturation 96% 05/30/2025 3:0 7 PM EDT Inhaled Oxygen Concentration - - Weight 61.2 kg (135 lb) 05/01/2025 11:1 3 AM EDT Height 160 cm (5' 3 ) 05/01/2025 11:13 AM EDT unable to stand Body Mass Index 23.91 05/01/2025 11:13 AM EDT Plan of Treatment Upcoming Encounters Date Type Department Care Team (Late st Contact Info) Description 06/27/2025 3:45 PM EDT Follow-Up [facility] [address] [place] [phone] Christopher Peres MD [address] [place] [phone] Health Maintenance Due Date Last Done Comments Cervical Cancer Screening 1965 Cologuard 1965 Controlled Substance Agreement 1963 FOBT / Fit Test 1963 HIV [...] Screening 10/12/2024 Mammogram 12/23/2024 12/23/2022, 09/12, 09/10/2018 Influenza Vaccine (#1) 2025 , 07/21/2023, 07/16/2022, Additional history exists Basic Metabolic Panel 05/23/2026 05/23/2025 , 05/21/2025, 05/20/2025, Additional history exists DTaP,Tdap,and Td Vaccines (3 - Td or Tdap) 04/04/2031 04/04/2021, 03/10/2014, 05/12/2012 Colon Cancer Screening 03/18/2034 Colonoscopy 03/18/2034 03/18/2024 Zoster Vaccines Completed 08/15/2020, 05/26/2020 Hepatitis C Screening Completed 11/07/2022 Pneumococcal Vaccine: 50+ Years Completed 05/13/2023, 11/12/2015, 05/12/2012 Hepatitis B Vaccines Aged Out No long er eligible based on patient's age to complete this topic Medical Devices Implanted Type Area Credit Rating Inspector Device Identifier Shelf Expiration Date Model / Serial / Lot Ruas Head And Ss For 5.5/6.0 Russell 2pk Implanted:Qty: 2 on 05/12/2025 by Christopher Peres MD at [facility] Implant N/A: Spine Lumbar Medtronic 04/28/2029 [id number] / / [id number] Ruas Head And Ss For 5.5/6.0 Russell Implanted:Qty: 2 on 05/12/2025 by Christopher Peres MD at [facility] Implant N/A: Spine Lumbar Medtronic 04/28/2029 [id number] / / [id number] Kit Bone Graft Large Infuse - [id number] Implanted:Qty: 1 on 05/12/2025 by Christopher Peres MD at [facility] Implant N/A: Spine Lumbar Medtronic 04/11/2026 [id number] / / [id number] Pyramesh Round 13mm X 70mm - [id number] Implanted:Qty: 1 on 05/12/2025 by Christopher Peres MD at [facility] Implant N/A: Spine Lumbar Medtronic [id number] / / 5.5-6.0 Biased Mas [employer] Setscrew Implanted:Qty: 1 on 05/12/2025 by Christopher Peres MD at [facility] Implant N/A: Spine Lumbar Medtronic 07/14/2032 [id number] / / [id number] Connector Spinal Tl 5/6-5/6 Cd Horizon - [id number] Implanted:Qty: 3 on 05/12/2025 by Christopher Peres MD at [facility] Implant N/A: Spine Lumbar Medtronic 05/29/2031 [id number] / / [id number] Connector Spinal Tl 5/6-5/6 Cd Horizon - [id number] Implanted:Qty: 1 on 05/12/2025 by Christopher Peres MD at [facility] Implant N/A: Spine Lumbar Medtronic 11/21/2032 [id number] / / [id number] Screw Spinal Shank 6.1xwe51kl Ats Cd Horizon Modulex - [id number] Implanted:Qty: 4 on 05/12/2025 by Christopher Peres MD at [facility] Implant N/A: Spine Lumbar Medtronic [id number] / / Screw Spinal Shank Thread Ats 6.4tbu85is Cd Horizon Modulex - [id number] Implanted:Qty: 4 on 05/12/2025 by Christopher Peres MD at [facility] Implant N/A: Spine Lumbar Medtronic [id number] / / Screw Spinal Shank Thread Ats 7.1nyv46fy Cd Horizon Modulex - [id number] Implanted:Qty: 1 on 05/12/2025 by Christopher Peres MD at [facility] Implant N/A: Spine Lumbar Medtronic [id number] / / Russell Straight Long 5.3pub413ag Solera - [id number] Implanted:Qty: 2 on 05/12/2025 by Christopher Peres MD at [facility] Implant N/A: Spine Lumbar Medtronic [id number] / / Patch Fibrin Sealant Pooled Human Plasma And Equine Collagen 4.8cmx4.8cm Tachosil - [id number] Implanted:Qty: 1 on 05/12/2025 by Christopher Peres MD at [facility] Implant N/A: Spine Lumbar COR MEDICAL 08/10/2027 [id number] / / [id number] Screw Spinal Shank Thread Ats 7.5mm X 45mm Cd Horizon Modulex - [id number] Implanted:Qty: 3 on 05/12/2025 by Christopher Peres MD at [facility] Screw N/A: Spine Lumbar Medtronic [id number] / / Screw Spinal Shank Thread Ats 7.2mwu69sk Cd Horizon Modulex - [id number] Implanted:Qty: 4 on 05/12/2025 by Christopher Peres MD at [facility] Screw N/A: Spine Lumbar Medtronic [id number] / / Modulex 10.5 X 100 Screw Implanted:Qty: 2 on 05/12/2025 by Christopher Peres MD at [facility] Screw N/A: Spine Lumbar Medtronic [id number] / / Screw Set Breakoff 5.5mm Titanium Cd Horizon - [id number] Implanted:Qty: 8 on 05/12/2025 by Christopher Peres MD at [facility] Screw N/A: Spine Lumbar Medtronic [id number] / / Graft Bone Demineralized Bone Matrix Fiber Inject 9cc [place] - [id number] - [id number] Implanted:Qty: 1 on 05/12/2025 by Christopher Peres MD at [facility] Tissue N/A: Spine Lumbar Medtronic 05/09/2026 [id number] / [id number] / Rmas Head And Ss For 5.5/6.0 Russell Implanted:Qty: 4 on 05/12/2025 by Christopher Peres MD at [facility] N/A: Spine Lumbar Medtronic 03/04/2029 [id number] / / [id number] Procedures * Due to [place] state law, this organization might not be sharing negative HIV tests. Procedure Name Priority Date/Time Associated Diagnosis Comments XR SCOLIOSIS 2-3 VIEWS Routine 05/30/2025 4:28 PM EDT S/P fusion of thoracic spine MAGNESIUM Routine 05/21/2025 8:10 AM EDT BASIC METABOLIC PANEL Routine 05/21/2025 8:10 AM EDT CBC Routine 05/21/2025 8:10 AM EDT MAGNESIUM Routine 05/20/2025 3:51 PM EDT CBC Routine 05/20/2025 3:51 PM EDT BASIC METABOLIC PANEL Routine 05/20/2025 3:51 PM EDT MAGNESIUM Routine 05/19/2025 6:18 AM EDT CBC Routine 05/19/2025 6:18 AM EDT BASIC METABOLIC PANEL Routine 05/19/2025 6:18 AM EDT PHOSPHORUS Routine 05/18/2025 6:13 AM EDT MAGNESIUM Routine 05/18/2025 6:13 AM EDT BASIC METABOLIC PANEL Routine 05/18/2025 6:13 AM EDT CBC Routine 05/18/2025 6:13 AM EDT CBC STAT 05/17/2025 6:40 AM EDT PHOSPHORUS Routine 05/17/2025 6:40 AM EDT MAGNESIUM Routine 05/17/2025 6:40 AM EDT BASIC METABOLIC PANEL Routine 05/17/2025 6:40 AM EDT CBC Timed 05/16/2025 7:57 AM EDT PHOSPHORUS Timed 05/16/2025 7:57 AM EDT MAGNESIUM Timed 05/16/2025 7:57 AM EDT BASIC METABOLIC PANEL Timed 05/16/2025 7:57 AM EDT CBC Routine 05/15/2025 8:17 AM EDT BASIC METABOLIC PANEL Routine 05/15/2025 8:17 AM EDT XR SCOLIOSIS 2-3 VIEWS Routine 05/14/2025 4:41 PM EDT XR THORACOLUMBAR SPINE 2 VIEWS Routine 05/14/2025 4:40 PM EDT BASIC METABOLIC PANEL Routine 05/14/2025 5:15 AM EDT CBC Routine 05/14/2025 5:15 AM EDT PHOSPHORUS Routine 05/13/2025 4:50 AM EDT MAGNESIUM Routine 05/13/2025 4:50 AM EDT CBC AUTO DIFFERENTIAL Routine 05/13/2025 4:50 AM EDT BASIC METABOLIC PANEL Routine 05/13/2025 4:50 AM EDT POCT GLUCOSE Routine 05/12/2025 8:02 PM EDT SMEAR REVIEW Routine 05/12/2025 8:01 PM EDT MAGNESIUM Timed 05/12/2025 8:01 PM EDT PHOSPHORUS Timed 05/12/2025 8:01 PM EDT CBC Timed 05/12/2025 8:01 PM EDT BASIC METABOLIC PANEL Timed 05/12/2025 8:01 PM EDT TRANSFUSE FRESH FROZEN PLASMA STAT 05/12/2025 6:32 PM EDT TRANSFUSE FRESH FROZEN PLASMA STAT 05/12/2025 6:31 PM EDT FL C-ARM WITH IMAGES (ADULT MSK) NONREPORTABLE STAT 05/12/2025 6:27 PM EDT POCT I-STAT CHEMISTRY PANEL W/ABG Routine 05/12/2025 6:27 PM EDT XR LUMBAR SPINE 1 VIEW STAT 05/12/2025 6:24 PM EDT POCT I-STAT CHEMISTRY PANEL W/ABG Routine 05/12/2025 5:16 PM EDT PREPARE FRESH FROZEN PLASMA STAT 05/12/2025 5:05 PM EDT POCT TEG6 GLOBAL HEMOSTATSIS W/LYSIS, INTERFACED Routine 05/12/2025 5:01 PM EDT PREPARE FRESH FROZEN PLASMA STAT 05/12/2025 4:50 PM EDT PREPARE RBC STAT 05/12/2025 4:49 PM EDT TRANSFUSE RED BLOOD CELLS STAT 05/12/2025 4:45 PM EDT TRANSFUSE RED BLOOD CELLS STAT 05/12/2025 4:43 PM EDT POCT HEMOGLOBIN Routine 05/12/2025 4:21 PM EDT PREPARE RBC STAT 05/12/2025 3:39 PM EDT TRANSFUSE RED BLOOD CELLS STAT 05/12/2025 3:31 PM EDT POCT I-STAT CHEMISTRY PANEL W/ABG Routine 05/12/2025 3:27 PM EDT POCT HEMOGLOBIN Routine 05/12/2025 3:25 PM EDT TRANSFUSE RED BLOOD CELLS STAT 05/12/2025 2:56 PM EDT POCT I-STAT CHEMISTRY PANEL W/ABG Routine 05/12/2025 2:37 PM EDT POCT HEMOGLOBIN Routine 05/12/2025 2:35 PM EDT POCT I-STAT CHEMISTRY PANEL W/ABG Routine 05/12/2025 12:29 PM EDT POCT HEMOGLOBIN Routine 05/12/2025 12:28 PM EDT POCT I-STAT CHEMISTRY PANEL W/ABG Routine 05/12/2025 11:30 AM EDT POCT HEMOGLOBIN Routine 05/12/2025 11:29 AM EDT PREPARE RBC STAT 05/12/2025 10:13 AM EDT UT OSTEOTOMY SPINE POSTERIOR 3 COLUMN LUMBAR 05/12/2025 9:22 AM EDT Other idiopathic scoliosis, thoracolumbar region Special Needs Xiao Souza Cheryl, medtronic, neuromonitoring, stealth, O arm, misonixReps aware 05/01Checked by Miesha Bae UT LAMINEC/FACETECT/FORA MIN,THORACIC 1 SEG 05/12/2025 9:22 AM EDT Other idiopathic scoliosis, thoracolumbar region Special Needs Xiao Souza Cheryl, medtronic, neuromonitoring, stealth, O arm, misonixReps aware 05/01Checked by Miesha Bae UT LAMINEC/FACETECT/FORA MIN,EACH ADDNL 05/12/2025 9:22 AM EDT Other idiopathic scoliosis, thoracolumbar region Special Needs Xiao Souza Cheryl, medtronic, neuromonitoring, stealth, O arm, misonixReps aware 05/01Checked by Miesha Bae UT LAMINEC/FACETECT/FORA MIN,LUMBAR 1 SEG 05/12/2025 9:22 AM EDT Other idiopathic scoliosis, thoracolumbar region Special Needs Xiao Souza Cheryl, medtronic, neuromonitoring, stealth, O arm, misonixReps aware 05/01Checked by Miesha Bae UT POSTERIOR SEGMENTAL INSTRUMENTATION 7-12 VRT SEG 05/12/2025 9:22 AM EDT Other idiopathic scoliosis, thoracolumbar region Special Needs Xiao Souza Cheryl, medtronic, neuromonitoring, stealth, O arm, misonixReps aware 05/01Checked by Miesha Bae UT ARTHRODESIS POSTERIOR SPINAL DEFORMITY UP 7-12 SEGMENTS 05/12/2025 9:22 AM EDT Other idiopathic scoliosis, thoracolumbar region Special Needs Xiao Souza Cheryl, medtronic, neuromonitoring, stealth, O arm, misonixReps aware 05/01Checked by Miesha Bae AN ARTERIAL LINE DUMMY PERFORMABLE Routine 05/12/2025 7:30 AM EDT UT INSERT CATH,ART,PERCUT,SHORT TERM Routine 05/12/2025 7:30 AM EDT ECG 12-LEAD Routine 05/01/2025 11:29 AM EDT Idiopathic scoliosis of thoracolumbar region Preop testing TYPE AND SCREEN Routine 05/01/2025 11:08 AM EDT Idiopathic scoliosis of thoracolumbar region Preop testing PTT Routine 05/01/2025 11:08 AM EDT Idiopathic scoliosis of thoracolumbar region Preop testing CBC Routine 05/01/2025 11:08 AM EDT Idiopathic scoliosis of thoracolumbar region Preop testing BASIC METABOLIC PANEL Routine 05/01/2025 11:08 AM EDT Idiopathic scoliosis of thoracolumbar region Preop testing DEXA BONE DENSITY AXIAL AND PERIPHERAL Routine 03/17/2025 11:30 AM EDT Chronic bilateral low back pain with bilateral sciatica XR SCOLIOSIS 2-3 VIEWS Routine 03/14/2025 3:26 PM EDT Chronic bilateral low back pain with bilateral sciatica from Last 3 Months Results * Due to [place] state law, this organization might not be sharing negative HIV tests. * X-Ray Scoliosis 2 Views (05/30/2025 4:28 PM EDT) Only the most recent of3 resultswithin the time period is included. Anatomical Region Laterality Modality Spine Computed Radiogr aphy 05/31/2025 9:19 PM EDT Impressions 05/31/2025 9:25 PM EDT Findings and impression: Scoliosis series AP and lateral views only. Numbering of the vertebral bodies is in keeping with the previous study dated 05/31/2025. Instrumented posterior spinal fusion with bilateral vertical rods and pedicular screws at the 11 through the sacrum and screws across the SI joints. Interbody fusions at L4-5 and L5 and S1 and S1 no significant interval change . Additional vertical rods from the upper lumbar region to the lower lumbar region no significant interval change. In the views available no significant interval change in the hardware or fracture of the hardware is detected with certainty. Multilevel degenerative disc changes of the mid and the lower thoracic region more advanced in the lower thoracic region. Also degenerative changes of the lumbar intervertebral disc spaces. No interval change within the surgical disc C4-5 and C5-6. No significant interval change is seen in any of the findings compared with the previous examination If this radiology report contains a blank impression section, it is an incomplete radiology report. Please contact the interpreting radiologist or applicable radiology division as soon as possible to obtain the completed interpretation. Workstation ID: [id number] Narrative 05/31/2025 9:25 PM EDT Comparison 05/14/2025. Resulting Agency Comment [id number] Procedure Note Ambreen Infante MD - 05/31/2025 Comparison 05/14/2025. IMPRESSION: Findings and impression: Scoliosis series AP and lateral views only. Numbering of the vertebral bodies is in keeping with the previous studydated 05/31/2025. Instrumented posterior spinal fusion with bilateral vertical rods andpedicular screws at the 11 through the sacrum and screws across the SIjoints. Interbody fusions at L4-5 and L5 and S1 and S1 no significantinterval change . Additional vertical rods from the upper lumbar region to the lowerlumbar region no significant interval change. In the views available nosignificant interval change in the hardware or fracture of the hardware isdetected with certainty. Multilevel degenerative disc changes of the mid and the lowerthoracic region more advanced in the lower thoracic region. Alsodegenerative changes of the lumbar intervertebral disc spaces. No interval change within the surgical disc C4-5 and C5-6. No significantinterval change is seen in any of the findings compared with the previousexamination If this radiology report contains a blank impression section, it is anincomplete radiology report. Please contact the interpreting radiologistor applicable radiology division as soon as possible to obtain thecompleted interpretation. Workstation ID: [id number] us Fang Altamirano LAW OFFICE MANAGER IMG XR PROCEDURES Final R esult * (ABNORMAL) CBC (05/21/2025 8:10 AM EDT) Only the most recent of10 resultswithin the time period is included. WBC 7.5 3.8 - 10.8 10*3/uL 05/21/2025 8:36 AM EDT [facility] RBC 2.87(L) 3.80 - 5.10 10*6/uL 05/21/2025 8:36 AM EDT [facility] Hemoglobin 8.2(L) 11.7 - 15.5 g/dL 05/21/2025 8:36 AM EDT [facility] Hematocrit 25.4(L) 35.0 - 45.0 % 05/21/2025 8:36 AM EDT [facility] MCV 88.5 80.0 - 100.0 fL 05/21/2025 8:36 AM EDT [facility] MCH 28.6 27.0 - 33.0 pg 05/21/2025 8:36 AM EDT [facility] MCHC 32.3 32.0 - 36.0 g/dL 05/21/2025 8:36 AM EDT [facility] RDW 14.9 11.0 - 15.0 % 05/21/2025 8:36 AM EDT [facility] Platelets 527(H) 140 - 400 10*3/uL 05/21/2025 8:36 AM EDT [facility] MPV 9.3 7.5 - 12.5 fL 05/21/2025 8:36 AM EDT [facility] DiagnosticsSELECT [facility] [employer] [facility] Blood Structure of peripheral vein / Unknown Venipuncture / Unknown 05/21/2025 8:10 AM EDT 05/21/2025 8:28 AM EDT [employer] LAB BLOOD ORDERABLES Final Resu lt Performing Organization Address City/[facility]/ZIP Co de Phone Number [facility] [address] [place] [address], * Magnesium (05/21/2025 8:10 AM EDT) Only the most recent of8 resultswithin the time period is included. MG 2.1 1.6 - 2.4 mg/dL 05/21/2025 8:59 AM EDT [facility] Blood Structure of peripheral vein / Unknown Venipuncture / Unknown 05/21/2025 8:10 AM EDT 05/21/2025 8:27 AM EDT [employer] [facility] LAB BLOOD ORDERABLES Final Resu lt Performing Organization Address City/[facility]/ZIP Co de Phone Number [facility] [address] [place] [address], * (ABNORMAL) Basic metabolic panel (05/21/2025 8:10 AM EDT) Only the most recent of11 resultswithin the time period is included. NA 139 135 - 145 mmol/L 05/21/2025 8:59 AM EDT [facility] K 3.6 3.5 - 5.3 mmol/L 05/21/2025 8:59 AM EDT Assay DepotMDFitwallTN [facility] Cl 101 98 - 107 mmol/L 05/21/2025 8:59 AM EDT [employer] crowdmarketingTN [facility] CO2 26 22 - 32 mmol/L 05/21/2025 8:59 AM EDT [facility] CENTEREVIAGENICSTN [facility] BUN 14 7 - 23 mg/dL 05/21/2025 8:59 AM EDT [facility]ENTERCritical DiagnosticsSELECT [facility]ICAL [facility] Creatinine 0.47(L) 0.50 - 1.20 mg/dL 05/21/2025 8:59 AM EDT [facility] CENTERCritical DiagnosticsSELECT [facility]ICAL [facility] Glucose 119(H) 65 - 99 mg/dL 05/21/2025 8:59 AM EDT [facility]intSELECT [facility] Calcium 8.7 8.6 - 10.5 mg/dL 05/21/2025 8:59 AM EDT [facility] CENTERXangaSELECT [facility]ICAL [facility] Anion Gap 12 5 - 15 05/21/2025 8:59 AM EDT Assay DepotMDFitwallTN [facility] eGFR >90 >=60 mL/min/1 .73m2 05/21/2025 8:59 AM EDT NeongaTN [facility] Comment:The estimated glomer ular filtration rate (eGFR) is calculated using a new formula developed by the NKF-ASN task force to eliminate race-based correction factors. The new formula uses serum/plasma creatinine, age, and gender to determine eGFR. A value below 60mls/min might indicate kidney disease and will be flagged. For additional information, see Nicholson et al, Am J Kidney Dis. 2021;79(2):268- 288, A Unifying Approach for GFR estimation: Recommendations of the NKF-ASN Task Force on Reassessing the Inclusion of Race in Diagnosing Kidney Disease . Blood Structure of peripheral vein / Unknown Venipuncture / Unknown 05/21/2025 8:10 AM EDT 05/21/2025 8:27 AM EDT us Leida WILDER LAB BLOOD ORDERABLES Final Resu lt [facility] [address] [place] [address], [place] * Phosphorus (05/18/2025 6:13 AM EDT) Only the most recent of5 resultswithin the time period is included. Phosphorus 4.2 2.5 - 4.5 mg/dL 05/18/2025 7:05 AM EDT [facility] Blood Structure of peripheral vein / Unknown Venipuncture / Unknown 05/18/2025 6:13 AM EDT 05/18/2025 6:36 AM EDT us Leida WILDER LAB BLOOD ORDERABLES Final Resu lt [facility] [address] [place] [address], [place] * X-Ray Thoracolumbar Spine 2 Views (05/14/2025 4:40 PM EDT) Anatomical Region Laterality Modality Spine, T-spine, L-spine Computed Radiography 05/14/2025 4:42 PM EDT Impressions 05/14/2025 4:50 PM EDT FINDINGS/IMPRESSION: There is transitional anatomy. For purposes of this report to be consistent the prior CT from 03/04/2025, there is lumbarization of S1 first nonrib-bearing lumbar-type vertebral bodies denoted L1. Large aimim-ob-veeb imaging precludes fine osseous and soft tissue evaluation. Images were obtained for biometric analysis. Status post posterior decompression and posterior instrumented spinal fusion of T11 to the sacroiliac joints. Prior interbody fusions of L4-L5, L5-S1, and S1-S2. There is a new surgical device projecting over the L5 vertebral body. Expected immediate postsurgical changes within the posterior paraspinal soft tissues including surgical drainage catheter. Prior disc replacements at C4-C5 and C5-C6. There is minimal dextroconvex curvature of the lower thoracic spine. The normal cervical lordosis is straightened. Normal thoracic kyphosis is maintained. The normal lumbar lordosis is maintained. Similar multilevel disc degeneration and facet arthropathy. Mild degenerative changes of pubis symphysis and pubic symphysis. Mild osteoarthritis of both hips. The sacrum is obscured by overlying soft tissue structures. If this radiology report contains a blank impression section, it is an incomplete radiology report. Please contact the interpreting radiologist or applicable radiology division as soon as possible to obtain the completed interpretation. Workstation ID: [id number] Narrative 05/14/2025 4:50 PM EDT COMPARISON: Scoliosis series from 06/14/2025. Resulting Agency Comment [id number] Procedure Note Stone Reid MD - 05/14/2025 COMPARISON: Scoliosis series from 06/14/2025. IMPRESSION: FINDINGS/IMPRESSION: There is transitional anatomy. For purposes of this report to beconsistent the prior CT from 03/04/2025, there is lumbarization of F1qqwjf nonrib-bearing lumbar-type vertebral bodies denoted L1. Large vcinl-gm-elwq imaging precludes fine osseous and soft tissueevaluation. Images were obtained for biometric analysis. Status post posterior decompression and posterior instrumented spinalfusion of T11 to the sacroiliac joints. Prior interbody fusions of L4-L5,L5-S1, and S1-S2. There is a new surgical device projecting over the B6nxujenkbf body. Expected immediate postsurgical changes within theposterior paraspinal soft tissues including surgical drainage catheter. Prior disc replacements at C4-C5 and C5-C6. There is minimal dextroconvexcurvature of the lower thoracic spine. The normal cervical lordosis isstraightened. Normal thoracic kyphosis is maintained. The normal lumbarlordosis is maintained. Similar multilevel disc degeneration and facetarthropathy. Mild degenerative changes of pubis symphysis and pubic symphysis. Mildosteoarthritis of both hips. The sacrum is obscured by overlying softtissue structures. If this radiology report contains a blank impression section, it is anincomplete radiology report. Please contact the interpreting radiologistor applicable radiology division as soon as possible to obtain thecompleted interpretation. Workstation ID: [id number] us Christopher Peres MD IMG XR PROCEDURES Final Res ult * (ABNORMAL) CBC Auto Differential (05/13/2025 4:50 AM EDT) WBC 8.6 3.8 - 10.8 10*3/uL 05/13/2025 5:19 AM EDT [employer] crowdmark[facility]AL [facility] [employer] [facility] RBC 3.53(L) 3.80 - 5.10 10*6/uL 05/13/2025 5:19 AM EDT [facility] Hemoglobin 9.9(L) 11.7 - 15.5 g/dL 05/13/2025 5:19 AM EDT [facility] [employer] [facility] Hematocrit 30.3(L) 35.0 - 45.0 % 05/13/2025 5:19 AM EDT [employer]AL [facility] [employer] [facility] MCV 85.8 80.0 - 100.0 fL 05/13/2025 5:19 AM EDT [employer] [facility] MCH 28.0 27.0 - 33.0 pg 05/13/2025 5:19 AM EDT [employer] [employer] [facility] MCHC 32.7 32.0 - 36.0 g/dL 05/13/2025 5:19 AM EDT [facility] RDW 14.7 11.0 - 15.0 % 05/13/2025 5:19 AM EDT [facility] Platelets 162 140 - 400 10*3/uL 05/13/2025 5:19 AM EDT [employer] crowdmarketingAL [employer] [facility] MPV 9.8 7.5 - 12.5 fL 05/13/2025 5:19 AM EDT [employer] [facility] Neutrophil % 88.7 % 05/13/2025 5:19 AM EDT [employer] Immature Grans % 0.5 0.0 - 0.9 % 05/13/2025 5:19 AM EDT [facility] Lymphocyte % 6.6 % 05/13/2025 5:19 AM EDT [facility] Monocyte % 3.9 % 05/13/2025 5:19 AM EDT [facility] [employer] [facility] Eosinophil % 0.2 % 05/13/2025 5:19 AM EDT [facility] [employer] [facility] Basophil % 0.1 % 05/13/2025 5:19 AM EDT [facility] Neutrophil # 7.65 1.50 - 7.80 10*3/uL 05/13/2025 5:19 AM EDT [facility] Immature Grans # 0.04(H) <=0.03 10*3/uL 05/13/2025 5:19 AM EDT [facility] Lymphocyte # 0.60(L) 0.85 - 3.90 10*3/uL 05/13/2025 5:19 AM EDT [facility] Monocyte # 0.30 0.20 - 0.95 10*3/uL 05/13/2025 5:19 AM EDT [facility] Eosinophil # <0.03 0.02 - 0.50 10*3/uL 05/13/2025 5:19 AM EDT [facility] Basophil # <0.03 0.00 - 0.20 10*3/uL 05/13/2025 5:19 AM EDT [facility] nRBC % 0.0 /100 WBCs 05/13/2025 5:19 AM EDT [facility] nRBC # <0.01 <0.01 10*3/uL 05/13/2025 5:19 AM EDT [facility] Blood Structure of peripheral vein / Unknown Venipuncture / Unknown 05/13/2025 4:50 AM EDT 05/13/2025 5:09 AM EDT Christopher Peres MD LAB BLOOD ORDERABLES Final Result Performing Organization Address [facility] Co de Phone Number [facility]cycle[facility] [address] [place] [address], [place] * (ABNORMAL) POCT Glucose, interfaced (05/12/2025 8:02 PM EDT) Glucose, POCT 128(H) 70 - 99 mg/dL 05/12/2025 8:04 PM EDT [facility] Comment: The bioinformatics computer scientist has not determined the efficacy of this test in Critically ill patients. [facility] defines Critically ill patients for the purpose of blood glucose monitoring (BGM) by glucometer, as patients meeting one or more of the following criteria: Hypotension- non-ICU patients (systolic blood pressure Less than 90 mmHg) due to shock Hypotension -ICU patients (Mean Arterial Pressure (MAP) <60 mmHg or systolic blood pressure < 90 mmHg due to shock Patients receiving Vasopressors (phenylephrine, vasopressin or norepinephrine) Anasarca In all locations, BGM test results should not be relied upon in the above situations, unless these results confirmed with lab-based glucose values. Blood 05/12/2025 8:02 PM EDT 05/12/2025 8:04 PM EDT us Christopher Peres MD LAB POCT ORDERABLES - DEVIC E Final Result Performing Organization Address [facility] Co de Phone Number [facility] [address] [place] [address], [place] * Smear Review (05/12/2025 8:01 PM EDT) Platelet Estimate Adequate Adequate 05/12/2025 9:01 PM EDT [facility]ENTERUn[facility] RBC Morphology Normal Normal, No clinically significant RBC morphology present (ICSH guidelines, 2015). 05/12/2025 9:01 PM EDT [facility]cycle[facility] Blood Structure of peripheral vein / Unknown Venipuncture / Unknown 05/12/2025 8:01 PM EDT 05/12/2025 8:16 PM EDT Christopher Peres MD LAB BLOOD ORDERABLES Final Result [facility]IKCritical DiagnosticsSIMINFND [facility] LABORATORY [address] [place] [address], [place] * Clinician: Transfuse Plasma (05/12/2025 6:32 PM EDT) Only the most recent of2 resultswithin the time period is included. Thalia Ford MD BLOOD TRANSFUSION ORDERABLES F inal Result * FL C-arm with Images (Adult MSK) NONREPORTABLE (05/12/2025 6:27 PM EDT) Narrative IMAGING - 05/12/2025 6:27 PM EDT This procedure does not contain a result. Please see the surgeon's note for official report. Christopher Peres MD IMG FLUOROSCOPY PROCEDURES Final Result Performing Organization Address City/[facility]/ZIP Co de Phone Number IMAGING * (ABNORMAL) POCT I-STAT Chemistry Panel W/ABG, interfaced (05/12/2025 6:27 PM EDT) Only the most recent of6 resultswithin the time period is included. Sample Type, POCT Arterial 05/12/2025 10:00 PM EDT [facility] Sodium, POCT 144 135 - 145 mmol/L 05/12/2025 10:00 PM EDT [facility] Potassium, POCT 3.5 3.5 - 5.3 mmol/L 05/12/2025 10:00 PM EDT [facility] Glucose, POCT 126(H) 70 - 99 mg/dL 05/12/2025 10:00 PM EDT [facility] iCA, POCT 4.5(L) 4.6 - 5.3 mg/dL 05/12/2025 10:00 PM EDT [facility] HCT, POCT 28(L) 37 - 42 % 05/12/2025 10:00 PM EDT [facility] pH, POCT 7.38 7.35 - 7.45 05/12/2025 10:00 PM EDT [facility] pCO2, POCT 35.4 35 - 45 mmHg 05/12/2025 10:00 PM EDT [facility] pO2, POCT 213(H) 80 - 105 mmHg 05/12/2025 10:00 PM EDT [facility] Base Excess, POCT -5(L) 0 - 3 mmol/L 05/12/2025 10:00 PM EDT [facility] HCO3, POCT 20.7(L) 21 - 28 mmol/L 05/12/2025 10:00 PM EDT [facility] TCO2, POCT 22(L) 23 - 27 mmol/L 05/12/2025 10:00 PM EDT [facility] Saturated O2, POCT 100(H) 95 - 98 % 05/12/2025 10:00 PM EDT [facility] FIO2, POCT 50 % 05/12/2025 10:00 PM EDT [facility] Tidal Volume, POCT 450 ml 05/12/2025 10:00 PM EDT [facility] Mason's Test, POCT N/A 05/12/2025 10:00 PM EDT [facility] Blood 05/12/2025 6:27 PM EDT 05/12/2025 10:00 PM EDT [facility] - 05/12/2025 10:00 PM EDT i-STAT analyzer cannot determine presence of hemolysis in sample us Christopher Peres MD LAB POCT ORDERABLES - DEVIC E Final Result [facility] [address] [place] [address], [place] * XR L-Spine 1 vw (05/12/2025 6:24 PM EDT) Anatomical Region Laterality Modality Spine Computed Radiogr aphy 05/12/2025 6:55 PM EDT Impressions 05/12/2025 6:57 PM EDT FINDINGS/IMPRESSION: Single crosstable portable radiograph of the spine demonstrate extensive posterior instrumented hardware spanning from T11 through the pelvis. Interbody devices at L4-L5 and L5-S1, S1-S2 levels. If this radiology report contains a blank impression section, it is an incomplete radiology report. Please contact the interpreting radiologist or applicable radiology division as soon as possible to obtain the completed interpretation. Workstation ID: [id number] Narrative 05/12/2025 6:57 PM EDT COMPARISON: 03/14/2025 Resulting Agency Comment [id number] Procedure Note Parth Villareal MD - 05/12/2025 COMPARISON: 03/14/2025 IMPRESSION: FINDINGS/IMPRESSION: Single crosstable portable radiograph of the spine demonstrate extensiveposterior instrumented hardware spanning from T11 through the pelvis.Interbody devices at L4-L5 and L5-S1, S1-S2 levels. If this radiology report contains a blank impression section, it is anincomplete radiology report. Please contact the interpreting radiologistor applicable radiology division as soon as possible to obtain thecompleted interpretation. Workstation ID: [id number] Christopher Peres MD IMG XR PROCEDURES Final Res ult * Blood Bank: Prepare Plasma Transfusion Indications: Intraoperative Hemostatic Defect: 2 Units (05/12/2025 5:05 PM EDT) Only the most recent of2 resultswithin the time period is included. Product Code A8396M01 [facility] Unit Number [id number] [facility] Unit ABO O [facility] Unit RH POS [facility] Dispense Status Presumed Transfuse [facility] Blood Expiration Date [facility] Blood Type Barcode 5100 [facility] Dispensed Volume 213 ML [facility] Product Code I3303M60 [facility] Unit Number [id number] [facility] Unit ABO O [facility] Unit RH POS [facility] Dispense Status /Released [facility] Blood Expiration Date 926323903183 [facility] Blood Type Barcode 5100 [facility] Dispensed Volume 222 ML [facility] 05/12/2025 5:05 PM EDT us Thalia Ford MD BLOOD BANK PRODUCT ORDERABLES Final Result Performing Organization Address City/[facility]/ZIP Co de Phone Number [facility] [address] [place] [address], [place] [phone] * POCT TEG6 GLOBAL HEMOSTASIS W/LYSIS, interfaced (05/12/2025 5:01 PM EDT) Citrated Kaolin Reaction Time, POCT 6.2 4.6 - 9.1 min 05/12/2025 6:02 PM EDT [facility] Citrated Kaolin Lysis, POCT 0.0 0.0 - 2.6 % 05/12/2025 6:02 PM EDT [facility] Cit[facility] RapidTEG Max Amplitude, POCT 61.2 52.0 - 70.0 mm 05/12/2025 6:02 PM EDT [facility] Cit[facility] Functional Fibrinogen Max Amplitude, POCT 17.9 15.0 - 32.0 mm 05/12/2025 6:02 PM EDT [facility] Blood 05/12/2025 5:01 PM EDT 05/12/2025 6:02 PM EDT us Christopher Peres MD LAB POCT ORDERABLES - DEVIC E Final Result [facility] [address] [place] [address], [place] * Blood Bank: Prepare Red Blood Cells Transfusion indications: Active blood loss; Irradiated?: No; Special requirements: Leukoreduced: 2 Units (05/12/2025 4:49 PM EDT) Only the most recent of3 resultswithin the time period is included. Product Code [id number] [facility] Unit Number [id number] [facility] Unit ABO O [facility] Unit RH POS [facility] Crossmatch Compatible [facility] Dispense Status /Released [facility] Blood Expiration Date [id number] [facility] Blood Type Barcode 5100 [facility] Dispensed Volume 330 ML [facility] Product Code [id number] [facility] Unit Number [id number] [facility] Unit ABO O [facility] Unit RH POS [facility] Crossmatch Compatible [facility] Dispense Status /Released [facility] Blood Expiration Date [id number] [facility] Blood Type Barcode 5100 [facility] Dispensed Volume 300 ML [facility] Other 05/12/2025 4:49 PM EDT 05/01/2025 2:13 PM EDT us Thalia Ford MD BLOOD BANK PRODUCT ORDERABLES Final Result [facility] [address] [place] [address], * Clinician: Transfuse Red Blood Cells (05/12/2025 4:45 PM EDT) Only the most recent of4 resultswithin the time period is included. us Thalia Ford MD BLOOD TRANSFUSION ORDERABLES F inal Result * (ABNORMAL) POCT Hemoglobin, interfaced (05/12/2025 4:21 PM EDT) Only the most recent of5 resultswithin the time period is included. Hemoglobin, POCT 9.7(L) 12.0 - 16.0 g/dL 05/13/2025 6:19 AM EDT [facility] Blood 05/12/2025 4:21 PM EDT 05/13/2025 6:19 AM EDT us Christopher Peres MD LAB POCT ORDERABLES - DEVIC E Final Result [facility] [address] [place] [address], [place] * UT INSERT CATH,ART,PERCUT,SHORTTERM, AN ARTERIAL LINE DUMMY PERFORMABLE (05/12/2025 7:30 AM EDT) Narrative Mu Vilchis MD - 05/12/2025 7:30 AM EDT Mu Vilchis MD 05/12/2025 11:02 AM Arterial Line Date/Time: 05/12/2025 7:30 AM Patient Location: pre-op Indication: continuous blood pressure monitoring and blood sampling needed Anesthesia Staff Authorized by: Mu Vilchis MD Performed by: Gorge Zazueta MD Anesthesiologist: Mu Vilchis MD Resident: Gorge Zazueta MD Performed: resident I was present during this procedure. Preanesthetic Checklist 2 patient identifiers IV checked site marked risks and benefits discussed monitors and equipment checked pre-op evaluation anesthesia consent all elements of maximal sterile barrier technique followed patient position confirmed timeout performed hand hygiene performed Procedure Detail: Ultrasound #1 Probe: Linear [id number] Catheter Size: 20 G Catheter Length: 4.45 cm Catheter Type: Arrow Laterality: Right Site: radial artery. The site was prepped with Chloraprep. The skin prep agent completely dried prior to procedure. Line Secured By: CHG dressing Number of attempts at approach: 1 Events: patient tolerated procedure well with no complications us Mu Vilchis MD ANESTHESIA ORDERABLES Final Re sult * ECG 12 lead (05/01/2025 11:29 AM EDT) Ventricular Rate EKG 57 BPM MUSE EKG Atrial Rate 57 BPM MUSE EKG UT Interval 154 ms MUSE EKG QRS Interval 98 ms MUSE EKG QT Interval 408 ms MUSE EKG QTC Interval 397 ms MUSE EKG P [place] -14 degrees MUSE EKG R [place] 18 degrees MUSE EKG T Wave [place] 30 degrees MUSE EKG 05/01/2025 11:2 9 AM EDT 05/02/2025 1:07 PM EDT Impressions MUSE EKG - 05/02/2025 1:07 PM EDT SINUS BRADYCARDIA NONSPECIFIC ST AND T WAVE ABNORMALITY ABNORMAL ECG NO PREVIOUS ECGS AVAILABLE Confirmed by Anuel Marino ([id number]) on 05/02/2025 1:07:04 PM Narrative Procedure Note O'Anuel Jimenez MD - 05/02/2025 IMPRESSION: SINUS BRADYCARDIA NONSPECIFIC ST AND T WAVE ABNORMALITY ABNORMAL ECG NO PREVIOUS ECGS AVAILABLE Confirmed by Anuel Marino ([id number]) on 05/02/2025 1:07:04 PM Miriam Bai LAW OFFICE MANAGER ECG ORDERABLES Final Re sult Performing Organization Address City/[facility]/ZIP Co de Phone Number MUSE EKG * PTT (05/01/2025 11:08 AM EDT) aPTT 28.5 23.0 - 32.0 Seconds 05/01/2025 12:47 PM EDT [facility] Comment: Current PTT reagent is not sensitive to detect all Lupus Anticoagulant (LA) Inhibitor Cases. If a LA is suspected, please order a Lupus Anticoagulation w/ Reflex Test which is performed at [facility] in [place], [place]. Blood Structure of peripheral vein / Unknown Venipuncture / Unknown 05/01/2025 11:08 AM EDT 05/01/2025 12:25 PM EDT Miriam Bai NP LAB BLOOD ORDERABLES Fin al Result Performing Organization Address City/[facility]/ZIP Co de Phone Number [facility] [address] [place] [address], * Type and Screen (05/01/2025 11:08 AM EDT) ABO Blood Type O 05/01/2025 5:36 PM EDT [facility] RH Type Positive 05/01/2025 5:36 PM EDT [facility] Expiration Date/Time 2025-05-15 23:59 05/01/2025 5:36 PM EDT [facility] Antibody Screen Negative 05/01/2025 5:36 PM EDT [facility] Blood Structure of peripheral vein / Unknown Venipuncture / Unknown 05/01/2025 11:08 AM EDT 05/01/2025 2:13 PM EDT us Miriam Bai LAW OFFICE MANAGER LAB BLOOD BANK TEST ANTWON VARGAS Final Result [facility] [address] [place] [address], [place] [phone] * DEXA Bone Density Axial and Peripheral (03/17/2025 11:30 AM EDT) Anatomical Region Laterality Modality Lumbar spine, Hip Bone Densitome try 03/17/2025 5:34 PM EDT Impressions 03/17/2025 5:35 PM EDT This patient has osteopenia. Diagnostic criteria and clinical considerations: Neither osteopenia (low bone mass) nor osteoporosis: Based on T-scores, TBS adjusted T-scores or 10 year FRAX risk) Osteopenia (low bone mass): Based on T-scores, TBS adjusted T-scores or 10 year FRAX risk Osteoporosis: Based on T-scores of or below -2.5, TBS adjusted T-scores of or below -2.5, or TBS adjusted T-scores between -1.1 and -2.4 and high 10 year FRAX probability of fracture (major osteoporotic >20% or hip >3% - additional assessment and pharmacological management to be considered A low trauma fracture (spine, hip, pelvis, proximal humerus, distal radius), especially after the age of 50 is consistent with a clinical diagnosis of osteoporosis, independent of BMD/ T-scores. Patients already diagnosed with osteoporosis and treated continue to bear the initial diagnosis, and fracture risk estimations are modified by many clinical factors, including prior treatment, or fall risk. Thank you for the courtesy of this referral. If this radiology report contains a blank impression section, it is an incomplete radiology report. Please contact the interpreting radiologist or applicable radiology division as soon as possible to obtain the completed interpretation. Workstation ID: [id number] Narrative 03/17/2025 5:35 PM EDT EXAM: BONE MINERAL DENSITY PROCEDURE: The bone mineral density (BMD) of the right forearm and proximal left femur was determined using an external X-ray source ([email or web address]) SITE: [facility] FINDINGS: Femoral neck: BMD 0.66gm/cm2 T-Score -1.7 Z-score: -0.4 1/3 (cortical) forearm: BMD 0.59 gm/cm2 T-Score -1.7 Z-score: -0.3 10-year Fracture Risk (FRAX) Major osteoporotic fracture 8.9% Hip fracture 0.9% The World Health Organization (WHO) defines osteoporosis (as studied in post-menopausal women) as BMD with a T value of (-)2.5 or less at any site. Osteopenia is defined by a T value between (-)1.1 and (-)2.4. In general, it is recommended that patients receive approximately 1000 mg of calcium daily, either from dairy products or supplements (including multiple vitamin). Patients should consider supplementing with vitamin D. Vitamin D recommendations should be discussed with Health Care Provider and measurement of vitamin D levels should be considered. Careful weight-bearing exercise is also useful in maintaining bone mass and to help protect against falls. Based on our precision data, a change of 1.5% in the spine or 3.6% at the femoral neck is significant in the individual patient. Resulting Agency Comment [id number] Procedure Note Rodrick Hoyt MD - 03/17/2025 EXAM: BONE MINERAL DENSITY PROCEDURE: The bone mineral density (BMD) of the right forearm andproximal left femur was determined using an external X-ray source([email or web address]) SITE: [facility] FINDINGS: Femoral neck: BMD 0.66gm/cm2 T-Score -1.7 Z-score: -0.4 1/3 (cortical) forearm: BMD 0.59 gm/cm2 T-Score -1.7 Z-score: -0.3 10-year Fracture Risk (FRAX) Major osteoporotic fracture 8.9% Hip fracture 0.9% The World Health Organization (WHO) defines osteoporosis (as studied inpost-menopausal women) as BMD with a T value of (-)2.5 or less at anysite. Osteopenia is defined by a T value between (-)1.1 and (-)2.4. In general, it is recommended that patients receive approximately 1000 mgof calcium daily, either from dairy products or supplements (includingmultiple vitamin). Patients should consider supplementing with vitamin D.Vitamin D recommendations should be discussed with Health Care Providerand measurement of vitamin D levels should be considered. Carefulweight-bearing exercise is also useful in maintaining bone mass and tohelp protect against falls. Based on our precision data, a change of 1.5% in the spine or 3.6% at thefemoral neck is significant in the individual patient. IMPRESSION: This patient has osteopenia. Diagnostic criteria and clinical considerations: Neither osteopenia (low bone mass) nor osteoporosis: Based on T-scores,TBS adjusted T-scores or 10 year FRAX risk) Osteopenia (low bone mass): Based on T-scores, TBS adjusted T-scores or10 year FRAX risk Osteoporosis: Based on T-scores of or below -2.5, TBS adjusted T-scores ofor below -2.5, or TBS adjusted T-scores between -1.1 and -2.4 and high 10year FRAX probability of fracture (major osteoporotic >20% or hip >3% -additional assessment and pharmacological management to be considered A low trauma fracture (spine, hip, pelvis, proximal humerus, distalradius), especially after the age of 50 is consistent with a clinicaldiagnosis of osteoporosis, independent of BMD/ T-scores. Patients alreadydiagnosed with osteoporosis and treated continue to bear the initialdiagnosis, and fracture risk estimations are modified by many clinicalfactors, including prior treatment, or fall risk. Thank you for the courtesy of this referral. If this radiology report contains a blank impression section, it is anincomplete radiology report. Please contact the interpreting radiologistor applicable radiology division as soon as possible to obtain thecompleted interpretation. 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
--- OUTSIDE RECORDS SUMMARY | 2025-06-09 09:41 | XMS_ITS | Encounter Summary ---
Author Organization [employer] Address 75 [facility] 7t [place] [address] Care Team Providers Care Director Building Name Role Phone Ernie Noriega MD Primary Care Provide r Reason for Visit * Reason Onset Date Comments Med Refill 10/13/2024 Encounter Details Date Type Department Care Team (Late st Contact Info) Description 10/13/2024 Refill [facility] [address] [place] [address] Ernie Noriega MD [address] [place] [address] Chronic midline low back pain without sciatica [...] 07/06/2025 11:15 AM EDT Office Visit [facility] [address] [place] [address] Ernie Noriega MD [address] [place] [address] documented as of this encounter Visit Diagnoses Diagnosis Chronic midline low back pain without sciatica documented in this encounter Additional Health Concerns Assessment Noted Time PHQ-9 Depression Total Score: 2 01/21/20 24 1:25 PM EDT documented as of this encounter Care Teams Director Building Relationship Specialty Start Date End Date Ernie Noriega MD [address] [place] [address] PCP - General Internal Medicine 08/25/19 [place] VNA 03/31/25 05/25/25 Jesus VNA 05/25/25 documented as of this encounter
--- OUTSIDE RECORDS SUMMARY | 2025-06-09 09:41 | XMS_ITS | Encounter Summary ---
Author Organization [employer] Address 75 [facility] 7t [place] [address] Care Team Providers Care Delivery Merchandiser Name Role Phone Ernie Noriega MD Primary Care Provide r Reason for Visit * Reason Comments Med Refill Encounter Details Date Type Department Care Team ([facility] Contact Info) Description 04/01/2025 Refill [facility] [address] [place] [address] Perlita Myers MD [address] [place] [address] Mild persistent asthma without complication Social History Tobacco Use Types Packs/Day Years [...] [facility] [address] [place] [address] Ernie Noriega MD [address] [place] [address] documented as of this encounter Visit Diagnoses Diagnosis Mild persistent asthma without complication documented in this encounter Additional Health Concerns Assessment Noted Time PHQ-9 Depression Total Score: 4 01/13/20 25 2:57 PM EDT documented as of this encounter Care Teams Delivery Merchandiser Relationship Specialty Start Date End Date Ernie Noriega MD [address] [facility] [place] [address] PCP - General Internal Medicine 08/25/19 [place] VNA 03/31/25 05/25/25 Jesus VNA 05/25/25 documented as of this encounter
--- OUTSIDE RECORDS SUMMARY | 2025-06-09 09:41 | XMS_ITS | Encounter Summary ---
Author Organization [employer] Address [address] [facility] 7t [place] [address] Care Team Providers Care Subassembler Name Role Phone Ernie Noriega MD Primary Care Provide r Reason for Visit * Reason Onset Date Comments Med Refill 10/27/2023 Encounter Details Date Type Department Care Team ([facility] st Contact Info) Description 10/27/2023 Refill [facility] [address] [place] [address] Ernie Noriega MD [address] [place] [address] Seasonal allergies; Pain Social History Tobacco Use [...] Description 07/06/2025 11:15 AM EDT Office Visit [facility] [address] [place] [address] Ernie Noriega MD [address] [place] [address] documented as of this encounter Visit Diagnoses Diagnosis Seasonal allergies Allergic rhinitis, cause unspecified Pain Generalized pain documented in this encounter Additional Health Concerns Assessment Noted Time PHQ-9 Depression Total Score: 0 12/02/19 23 2:38 PM EST documented as of this encounter Care Teams Subassembler Relationship Specialty Start Date End Date Ernie Noriega MD [address] [place] [address] PCP - General Internal Medicine 08/25/19 [place] VNA 03/31/25 05/25/25 Jesus VNA 05/25/25 documented as of this encounter
--- OUTSIDE RECORDS SUMMARY | 2025-06-09 09:41 | XMS_ITS | Encounter Summary ---
Author Organization [employer] Address [address] [facility] 7t [place] [address] Care Team Providers Care Area Director Of Home Health Sales Name Role Phone Ernie Noriega MD Primary Care Provide r Reason for Visit * Reason Onset Date Comments Med Refill 09/28/2024 Encounter Details Date Type Department Care Team (Late st Contact Info) Description 09/28/2024 Refill [facility] [address] [place] [address] Ernie Noriega MD [address] [place] [address] Chronic midline low back pain without sciatica; [...] 11:15 AM EDT Office Visit [facility] [address] [place] [address] Ernie Noriega MD [address] [place] [address] documented as of this encounter Visit Diagnoses Diagnosis Chronic midline low back pain without sciatica Cervical radiculopathy Brachial neuritis or radiculitis nos documented in this encounter Additional Health Concerns Assessment Noted Time PHQ-9 Depression Total Score: 2 01/21/20 24 1:25 PM EDT documented as of this encounter Care Teams Area Director Of Home Health Sales Relationship Specialty Start Date End Date Ernie Noriega MD [address] [place] [address] PCP - General Internal Medicine 08/25/19 [place] KELLYA 03/31/25 05/25/25 Jesus LENZ 05/25/25 documented as of this encounter
--- OUTSIDE RECORDS SUMMARY | 2025-06-09 09:42 | XMS_ITS | Encounter Summary ---
Author Organization [facility] Address [address] [place] [address] Care Team Providers Care Nutrition Teacher Name Role Phone Ernie Merritt Primary Care Provider + Encounter Details Date Type Department Care Team (Late st Contact Info) Description 04/11/2025 RxAppst Message [facility] Operating Room [address] [place] [address] [employer], Generic Provider [address] [place], [place] [id number] Questionnaire Submission Social History Tobacco Use Types Packs/Day Years [...] Info) Description 06/27/2025 3:45 PM EDT Follow-Up [facility] Building Neuro[facility] [address] [place] [address] Christopher Peres MD [address] [place] [address] documented as of this encounter Visit Diagnoses Not on filedocumented in this encounter Care Teams Nutrition Teacher Relationship Specialty Start Date End Date Ernie Merritt [address] [place] [address] PCP - General Internal Medicine 11/29/24 documented as of this encounter
--- OUTSIDE RECORDS SUMMARY | 2025-06-09 09:42 | XMS_ITS | Encounter Summary ---
Author Organization [employer] Address [address] [place] [address] 7t [place] [address] Care Team Providers Care Head Housekeeper Name Role Phone Ernie Noriega MD Primary Care Provide r Encounter Details Date Type Department Care Team ([facility] Contact Info) Description 12/09/2022 Orders Only [facility] [address] [place] [address] Suha Alexander, RN Social History Tobacco Use [...] Upcoming Encounters Date Type Department Care Team ([facility] Contact Info) Description 07/06/2025 11:15 AM EDT Office Visit [facility] [address] [place] [address] Ernie Noriega MD [address] [place] [address] [place] [address] documented as of this encounter Procedures Procedure Name Priority Date/Time Associated Diagnosis Comments BI MAMMOGRAM SCREENING TOMOSYNTHESIS BILATERAL Routine 12/23/2022 11:35 AM EDT documented in this encounter Results * BI Mammogram Screening Tomosynthesis Bilateral (12/23/2022 11:35 AM EDT) Anatomical Region Laterality Modality Breast Bilateral Mammography 12/23/2022 11:3 5 AM EDT Narrative 12/24/2022 5:15 PM EDT [facility] [address] [place] [address] Mammography Report Signed Patient: Miguelina Watson MR#: [id number] : 1965 Acct:[id number] Age/Sex: 57 / F ADM Date: 12/23/22 Loc: [facility] Attending Dr: Ernie Merritt MD Ordering Physician: Ernie Merritt MD Resu lts: 1Negative Date of Service: 12/23/22 Follow Up: 1 Year From Orig formerly [facility] Mammogram Procedure(s): MM tomosynthesis screening BI Accession Number(s): [id number] cc: Ernie Merritt MD EXAMINATION: MM SCREENING [...] in OV> 12/24/22 1712 DD/ 1135 TD/TT: Dioramist: SK Procedure Note Donotuseinterpreter, Image - 12/24/2022 [facility] [address] [place] [address] Mammography Report Signed Patient: Miguelina Watson#: [id number] : 1965Acct:[id number] Age/Sex: 57 / FADM Date: 12/23/22 Loc: HO.MAMMO Attending Dr: Ernie Merritt MD Ordering Physician: Ernie Merritt MDResu lts: 1Negative Date of Service: 12/23/22Follow Up: 1 Year From Orig inal Mammogram Procedure(s): MM tomosynthesis screening BI Accession Number(s): [id number] cc: Ernie Merritt MD EXAMINATION: MM SCREENING [...] date for their next mammogram. Dictated By: Zelaya,Eyad V MD Signed By: <Electronically signed by Eyad Zelaya MD in OV> 12/24/22 1712 DD/ 1135 TD/TT: Dioramist: SMITHA [facility] External Provider IMG BI PROCEDURES Edited Result - Final documented in this encounter Visit Diagnoses Not on filedocumented in this encounter Additional Health Concerns Assessment Noted Time PHQ-9 Depression Total Score: 0 12/02/19 23 2:38 PM EST documented as of this encounter Care Teams Head Housekeeper Relationship Specialty Start Date End Date Ernie Noriega MD [address] [place] [address] PCP - General Internal Medicine 08/25/19 [place] VNA 03/31/25 05/25/25 Jesus VNA 05/25/25 documented as of this encounter
--- OUTSIDE RECORDS SUMMARY | 2025-06-09 09:42 | XMS_ITS | Encounter Summary ---
Author Organization [employer] Address 75 [facility] 7t [place] [address] Care Team Providers Care Underwriting Technician Name Role Phone Ernie Noriega MD Primary Care Provide r Reason for Visit * Reason Onset Date Comments Med Refill 11/17/2024 Encounter Details Date Type Department Care Team ([facility] st Contact Info) Description 11/17/[address] [facility] [address] [place] [address] Ernie Noriega MD [address] [place] [address] Seasonal allergies Social History Tobacco Use Types [...] [facility] [address] [place] [address] Ernie Noriega MD [address] [place] [address] documented as of this encounter Visit Diagnoses Diagnosis Seasonal allergies Allergic rhinitis, cause unspecified documented in this encounter Additional Health Concerns Assessment Noted Time PHQ-9 Depression Total Score: 2 01/21/20 24 1:25 PM EDT documented as of this encounter Care Teams Underwriting Technician Relationship Specialty Start Date End Date Ernie Noriega MD [address] [place] [address] PCP - General Internal Medicine 08/25/19 [place] KELLYA 03/31/25 05/25/25 Jesus VNA 05/25/25 documented as of this encounter
--- OUTSIDE RECORDS SUMMARY | 2025-06-09 09:42 | XMS_ITS | Encounter Summary ---
Author Organization [employer] Address [address] [facility] [address] 7t [place] [address] Care Team Providers Care Medical Detail Representative Name Role Phone Ernie Noriega MD Primary Care Provide r Reason for Visit * Reason Onset Date Comments Med Refill 09/18/2023 Encounter Details Date Type Department Care Team (Late st Contact Info) Description 09/18/2023 Refill [facility] [address] [place] [address] Ernie Noriega MD [address] [place] [address] Chronic midline low back pain without sciatica; [...] [facility] [address] [place] [address] Ernie Noriega MD [address] [place] [address] documented as of this encounter Visit Diagnoses Diagnosis Chronic midline low back pain without sciatica Cervical radiculopathy Brachial neuritis or radiculitis nos documented in this encounter Additional Health Concerns Assessment Noted Time PHQ-9 Depression Total Score: 0 12/02/19 23 2:38 PM EST documented as of this encounter Care Teams Medical Detail Representative Relationship Specialty Start Date End Date Ernie Noriega MD [address] [place] [address] PCP - General Internal Medicine 08/25/19 [place] VNA 03/31/25 05/25/25 Jesus VNA 05/25/25 documented as of this encounter
--- OUTSIDE RECORDS SUMMARY | 2025-06-09 09:42 | XMS_ITS | Encounter Summary ---
Author Organization [employer] Address [address] [facility] 7t [place] [address] Care Team Providers Care Oil Refinery Operator Name Role Phone Ernie Noriega MD Primary Care Provide r Reason for Visit * Reason Onset Date Comments Med Refill 11/03/2023 Encounter Details Date Type Department Care Team ([facility] st Contact Info) Description 11/03/2023 Refill [facility] [address] [place] [address] Ernie Noriega MD [address] [place] [address] Seasonal allergies Social History Tobacco Use Types [...] 11:15 AM EDT Office Visit [facility] [address] [place] [address] Ernie Noriega MD [address] [place] [address] documented as of this encounter Visit Diagnoses Diagnosis Seasonal allergies Allergic rhinitis, cause unspecified documented in this encounter Additional Health Concerns Assessment Noted Time PHQ-9 Depression Total Score: 0 12/02/19 23 2:38 PM EST documented as of this encounter Care Teams Oil Refinery Operator Relationship Specialty Start Date End Date Ernie Noriega MD [address] [place] [address] PCP - General Internal Medicine 08/25/19 [place] VNA 03/31/25 05/25/25 Jesus VNA 05/25/25 documented as of this encounter
--- OUTSIDE RECORDS SUMMARY | 2025-06-09 09:42 | XMS_ITS | Encounter Summary ---
Author Organization [employer] Address [address] [facility] 7t [place] [address] Care Team Providers Care Class 1 Owner Operator Name Role Phone Ernie Noriega MD Primary Care Provide r Reason for Visit * Reason Comments Med Refill Encounter Details Date Type Department Care Team ([facility] st Contact Info) Description 08/28/2023 Refill [facility] [address] [place] [address] Perlita Woody MD [address] [place] [address] Primary hypertension Social History Tobacco Use Types [...] 11:15 AM EDT Office Visit [facility] [address] [place] [address] Ernie Noriega MD [address] [place] [address] documented as of this encounter Visit Diagnoses Diagnosis Primary hypertension Unspecified essential hypertension documented in this encounter Additional Health Concerns Assessment Noted Time PHQ-9 Depression Total Score: 0 12/02/19 23 2:38 PM EST documented as of this encounter Care Teams Class 1 Owner Operator Relationship Specialty Start Date End Date Ernie Noriega MD [address] [place] [address] PCP - General Internal Medicine 08/25/19 [place] VNA 03/31/25 05/25/25 Jesus VNA 05/25/25 documented as of this encounter
--- OUTSIDE RECORDS SUMMARY | 2025-06-09 09:42 | XMS_ITS | Encounter Summary ---
Author Organization [employer] Address [address] [place] [address] 7t [place] [address] Care Team Providers Care Hospital Chief Financial Officer Name Role Phone Ernie Noriega MD Primary Care Provide r Reason for Visit * Reason Onset Date Comments Medication Question 10/03/2022 returning call 10/03/2022 Encounter Details Date Type Department Care Team ([facility] st Contact Info) Description 10/03/2022 Telephone [facility] [address] [place] [address] Ernie Noriega MD [address] [place] [address] Medication Question; returning call Social History Tobacco [...] pt returning call Please contact pt at [phone] * Telephone Encounter - Peg Scott RN - 10/10/2022 11:17 AM EST T/C placed to pt x2AM re below message. No answer, left v/m. Will retask to [facility] nurses for third attempt. * Telephone Encounter - Peg Scott RN - 10/08/2022 3:32 PM EST Incoming T/C from Sylvia CAMARILLO from [facility]. She states spoke with AIR CARRIER OPERATIONS INSPECTOR who saw pt 09/24. It is not in the OV note (which is located in Epic under Media tab) but that pt reported pain during appt and AIR CARRIER OPERATIONS INSPECTOR advised pt speak to her PCP and [...] next month with PCP. Will send to [facility] to attempt second call. [place] sending to PCP as FYI. * Telephone Encounter - Peg Scott RN - 10/08/2022 10:34 AM EST Reviewed most recent note from [facility] note. No [...] calling to inform was told by her [facility] Physicians DR to request [...] Description 07/06/2025 11:15 AM EDT Office Visit [facility] [address] [place] [address] Ernie Noriega MD [address] [place], [place] [phone] documented as of this encounter Visit Diagnoses Not on filedocumented in this encounter Care Teams Hospital Chief Financial Officer Relationship Specialty Start Date End Date Ernie Noriega MD [address] [place], [place] [phone] PCP - General Internal Medicine 08/25/19 [place] VNA 03/31/25 05/25/25 Jesus VNA 05/25/25 documented as of this encounter
--- OUTSIDE RECORDS SUMMARY | 2025-06-09 09:42 | XMS_ITS | Encounter Summary ---
Author Organization [employer] Address 75 [facility] 7t [place] [address] Care Team Providers Care Asset Specialist Name Role Phone Ernie Noriega MD Primary Care Provide r Reason for Visit * Reason Onset Date Comments Med Refill 09/18/2023 Encounter Details Date Type Department Care Team ([facility] st Contact Info) Description 09/18/2023 Telephone [facility] [address] [place] [address] Ernie Noriega MD [address] [place], [place] [phone] Med Refill Social History Tobacco Use Types [...] (Ultram) 50 MG tablet Please sent to [facility] #[id number] - [place] - [address] [place] [place] [address] documented in this encounter Plan of Treatment Upcoming Encounters Date Type Department Care Team (Late st Contact Info) Description 07/06/2025 11:15 AM EDT Office Visit [facility] [address] [place] [address] Ernie Noriega MD [address] [place] [address] documented as of this encounter Visit Diagnoses Not on filedocumented in this encounter Additional Health Concerns Assessment Noted Time PHQ-9 Depression Total Score: 0 12/02/19 23 2:38 PM EST documented as of this encounter Care Teams Asset Specialist Relationship Specialty Start Date End Date Ernie Noriega MD [address] [place] [address] PCP - General Internal Medicine 08/25/19 [place] VNA 03/31/25 05/25/25 Jesus VNA 05/25/25 documented as of this encounter
--- OUTSIDE RECORDS SUMMARY | 2025-06-09 09:42 | XMS_ITS | Encounter Summary ---
Author Organization [employer] Address [address] [facility] 7t [place] [address] Care Team Providers Care Data Architect Name Role Phone Ernie Noriega MD Primary Care Provide r Reason for Visit * Reason Onset Date Comments Med Refill 11/04/2023 Encounter Details Date Type Department Care Team (Late st Contact Info) Description 11/04/2023 Refill [facility] [address] [place] [address] Ernie Noriega MD [address] [place] [address] Chronic midline low back pain without sciatica; [...] Description 07/06/2025 11:15 AM EDT Office Visit [facility] [address] [place] [address] Ernie Noriega MD [address] [place] [address] documented as of this encounter Visit Diagnoses Diagnosis Chronic midline low back pain without sciatica Cervical radiculopathy Brachial neuritis or radiculitis nos Seasonal allergies Allergic rhinitis, cause unspecified documented in this encounter Additional Health Concerns Assessment Noted Time PHQ-9 Depression Total Score: 0 12/02/19 23 2:38 PM EST documented as of this encounter Care Teams Data Architect Relationship Specialty Start Date End Date Ernie Noriega MD [address] [place] [address] PCP - General Internal Medicine 08/25/19 [place] VNA 03/31/25 05/25/25 Jesus VNA 05/25/25 documented as of this encounter
--- OUTSIDE RECORDS SUMMARY | 2025-06-09 09:42 | XMS_ITS | Encounter Summary ---
Author Organization [employer] Address [address] [facility] 7t [place] [address] Care Team Providers Care Wallpaper Consultant Name Role Phone Ernie Noriega MD Primary Care Provide r Reason for Visit * Reason Onset Date Comments Med Refill 08/17/2023 Encounter Details Date Type Department Care Team ([facility] st Contact Info) Description 08/17/2023 Telephone [facility] [address] [place] [address] Ernie Noriega MD [address] [place], [place] [phone] Med Refill Social History Tobacco Use Types [...] (Ultram) 50 MG tablet Please sent to [facility]/pharmacy #[id number] - [place] - [address] [place] [address] documented in this encounter Plan of Treatment Upcoming Encounters Date Type Department Care Team (Late st Contact Info) Description 07/06/2025 11:15 AM EDT Office Visit [facility] [address] [place] [address] Ernie Noriega MD [address] [place] [address] documented as of this encounter Visit Diagnoses Not on filedocumented in this encounter Additional Health Concerns Assessment Noted Time PHQ-9 Depression Total Score: 0 12/02/19 23 2:38 PM EST documented as of this encounter Care Teams Wallpaper Consultant Relationship Specialty Start Date End Date Ernie Noriega MD [address] [place] [address] PCP - General Internal Medicine 08/25/19 [facility] 03/31/25 05/25/25 [facility] 05/25/25 documented as of this encounter
--- OUTSIDE RECORDS SUMMARY | 2025-06-09 09:42 | XMS_ITS | Encounter Summary ---
Author Organization [employer] Address 75 [facility] 7t [place] [address] Care Team Providers Care Controls Operator Molded Goods Name Role Phone Ernie Noriega MD Primary Care Provide r Reason for Visit * Reason Comments Med Refill Encounter Details Date Type Department Care Team ([facility] st Contact Info) Description 08/26/2023 Refill [facility] [address] [place] [address] Perlita Woody MD [address] [place] [address] Seasonal allergies Social History Tobacco Use Types [...] Description 07/06/2025 11:15 AM EDT Office Visit [facility] [address] [place] [address] Ernie Noriega MD [address] [place] [address] documented as of this encounter Visit Diagnoses Diagnosis Seasonal allergies Allergic rhinitis, cause unspecified documented in this encounter Additional Health Concerns Assessment Noted Time PHQ-9 Depression Total Score: 0 12/02/19 23 2:38 PM EST documented as of this encounter Care Teams Controls Operator Molded Goods Relationship Specialty Start Date End Date Ernie Noriega MD [address] [place] [address] PCP - General Internal Medicine 08/25/19 [facility] 03/31/25 05/25/25 [facility] 05/25/25 documented as of this encounter
--- OUTSIDE RECORDS SUMMARY | 2025-06-09 09:42 | XMS_ITS | Encounter Summary ---
Author Organization [employer] Address [address] [facility] 7t [place] [address] Care Team Providers Care Vrt Mechanic Name Role Phone Ernie Noriega MD Primary Care Provide r Reason for Visit * Reason Comments Med Refill Encounter Details Date Type Department Care Team ([facility] st Contact Info) Description 12/25/2023 Refill [facility] [address] [place] [address] Ernie Noriega MD [address] [place], [place] [phone] Pain; Primary hypertension; Seasonal allergies Social History [...] Description 07/06/2025 11:15 AM EDT Office Visit [facility] [address] [place] [address] Ernie Noriega MD [address] [place] [address] documented as of this encounter Visit Diagnoses Diagnosis Pain Generalized pain Primary hypertension Unspecified essential hypertension Seasonal allergies Allergic rhinitis, cause unspecified documented in this encounter Additional Health Concerns Assessment Noted Time PHQ-9 Depression Total Score: 0 12/02/19 23 2:38 PM EST documented as of this encounter Care Teams Vrt Mechanic Relationship Specialty Start Date End Date Ernie Noriega MD [address] [place] [id number] PCP - General Internal Medicine 08/25/19 [facility] 03/31/25 05/25/25 [facility] 05/25/25 documented as of this encounter
--- OUTSIDE RECORDS SUMMARY | 2025-06-09 09:42 | XMS_ITS | Encounter Summary ---
Author Organization [employer] Address [address] [facility] [address] 7t [place] [address] Care Team Providers Care Purse Maker Name Role Phone Ernie Noriega MD Primary Care Provide r Encounter Details Date Type Department Care Team (Latest Contact Info) Description 06/06/2025 Travel Social History Tobacco Use Types Packs/Day [...] [facility] [address] [place] [address] Ernie Noriega MD [address] [place] [phone] documented as of this encounter Visit Diagnoses Not on filedocumented in this encounter Additional Health Concerns Assessment Noted Time PHQ-9 Depression Total Score: 4 01/13/20 25 2:57 PM EDT documented as of this encounter Care Teams Purse Maker Relationship Specialty Start Date End Date Ernie Noriega MD [address] [place] [id number] PCP - General Internal Medicine 08/25/19 Jesus [facility] 05/25/25 documented as of this encounter
--- OUTSIDE RECORDS SUMMARY | 2025-06-09 09:42 | XMS_ITS | Encounter Summary ---
Author Organization [facility] Address [address] [facility] 7t [place] [address] Care Team Providers Care Enterprise Analyst Name Role Phone Ernie Noriega MD Primary Care Provide r Encounter Details Date Type Department Care Team (Latest Contact Info) Description 03/07/2021 Abstract [facility] CONVERSION[facility] Dental, Provider, DDS Social History Tobacco [...] Description 07/06/2025 11:15 AM EDT Office Visit [facility] [address] [place] [address] Ernie Noriega MD [address] [place] [address] documented as of this encounter Visit Diagnoses Not on filedocumented in this encounter Care Teams Enterprise Analyst Relationship Specialty Start Date End Date Ernie Noriega MD [address] [place] [id number] PCP - General Internal Medicine 08/25/19 [facility] 03/31/25 05/25/25 [facility] 05/25/25 documented as of this encounter
--- OUTSIDE RECORDS SUMMARY | 2025-06-09 09:42 | XMS_ITS | Encounter Summary ---
Author Organization [facility] Address [address] [place] [address] 7t [place] [address] Care Team Providers Care Tongue And Quarter Stitcher Name Role Phone Ernie Noriega MD Primary Care Provide r Encounter Details Date Type Department Care Team (Late st Contact Info) Description 10/03/2022 Orders Only [facility] MEDICINE [address] [place] [phone] Suha Alexander, RN Social History Tobacco Use [...] Description 07/06/2025 11:15 AM EDT Office Visit [facility] [address] [place] [phone] Ernie Noriega MD [address] [place] [address] documented as of this encounter Visit Diagnoses Not on filedocumented in this encounter Care Teams Tongue And Quarter Stitcher Relationship Specialty Start Date End Date Ernie Noriega MD [address] [place] [id number] PCP - General Internal Medicine 08/25/19 [facility] 03/31/25 05/25/25 [facility] 05/25/25 documented as of this encounter
--- OUTSIDE RECORDS SUMMARY | 2025-06-09 09:42 | XMS_ITS | Encounter Summary ---
Author Organization [employer] Address [address] [facility] [address] [place] [address] Care Team Providers Care Countersinker Name Role Phone Ernie Noriega MD Primary Care Provide r Reason for Visit * Reason Onset Date Comments Med Refill Referral 12/10/2022 Patient walked i n requesting for referral to a neurologist. It is difficult for her to walk and do her [place] activities. Pt has had [facility] go to her house for therapy, but it has not made any improvements. Encounter Details Date Type Department Care Team (Late st Contact Info) Description 12/10/2022 Refill [facility] [address] [place], [place] [phone] Ernie Noriega MD [address] [place], [place] [phone] Pain Social History Tobacco Use Types Packs/Day [...] do her [place] activities. Pt has had [facility] go to her house for therapy, but it has not made any improvements. documented in this encounter Plan of Treatment Upcoming Encounters Date Type Department Care Team (Late st Contact Info) Description 07/06/2025 11:15 AM EDT Office Visit [facility] [address] [place] [address] Ernie Noriega MD [address] [place] [address] documented as of this encounter Visit Diagnoses Diagnosis Pain Generalized pain documented in this encounter Additional Health Concerns Assessment Noted Time PHQ-9 Depression Total Score: 0 12/02/19 23 2:38 PM EST documented as of this encounter Care Teams Countersinker Relationship Specialty Start Date End Date Ernie Noriega MD [address] [place] [address] PCP - General Internal Medicine 08/25/19 [facility] 03/31/25 05/25/25 [facility] 05/25/25 documented as of this encounter
--- OUTSIDE RECORDS SUMMARY | 2025-06-09 09:42 | XMS_ITS | Encounter Summary ---
Author Organization [employer] Address [address] [facility] 7t [place] [address] Care Team Providers Care Billing Representative Name Role Phone Ernie Noriega MD Primary Care Provide r Reason for Visit * Reason Onset Date Comments Referral 05/26/2025 Encounter Details Date Type Department Care Team ([facility] st Contact Info) Description 05/26/2025 Telephone [facility] MED[facility] [address] [place] [address] Ernie Noriega MD [address] [place] [address] Referral Social History Tobacco Use Types Packs/Day [...] encounter Miscellaneous Notes * Telephone Encounter - Radhames Shen - 05/26/2025 10:57 AM EDT Tc from pt requesting a referral to [facility] for PT for patients right shoulder Contact pt at [phone] (azeri) documented in this encounter Plan of Treatment Upcoming Encounters Date Type Department Care Team (Late st Contact Info) Description 07/06/2025 11:15 AM EDT Office Visit [facility] [address] [place] [address] Ernie Noriega MD [address] [place] [address] documented as of this encounter Visit Diagnoses Not on filedocumented in this encounter Additional Health Concerns Assessment Noted Time PHQ-9 Depression Total Score: 4 01/13/20 25 2:57 PM EDT documented as of this encounter Care Teams Billing Representative Relationship Specialty Start Date End Date Ernie Noriega MD [address] [place] [address] PCP - General Internal Medicine 08/25/19 [facility] 05/25/25 documented as of this encounter
--- OUTSIDE RECORDS SUMMARY | 2025-06-09 09:42 | XMS_ITS | Encounter Summary ---
Author Organization [employer] Address [address] [place] [address] 7t [place] [address] Care Team Providers Care Yarder Operator Name Role Phone Ernie Noriega MD Primary Care Provide r Reason for Visit * Reason Onset Date Comments verbal order 11/21/2022 Encounter Details Date Type Department Care Team (Late st Contact Info) Description 11/21/2022 Telephone [facility] [address] [place] [address] Ernie Noriega MD [address] [place] [address] verbal order Social History Tobacco Use Types [...] PM EST Tc from Baldemar from [facility] calling to inform pt started home services today . Baldemar is also requesting a verbal order for pt to start physical therapy for 2x a week for 4 weeks . Best contact # [phone]. documented in this encounter Plan of Treatment Upcoming Encounters Date Type Department Care Team (Late st Contact Info) Description 07/06/2025 11:15 AM EDT Office Visit [facility] [address] [place] [address] Ernie Noriega MD [address] [place] [address] documented as of this encounter Visit Diagnoses Not on filedocumented in this encounter Care Teams Yarder Operator Relationship Specialty Start Date End Date [place] [address] PCP - General Internal Medicine 08/25/19 [facility] 03/31/25 05/25/25 Jesus [facility] 05/25/25 documented as of this encounter
--- OUTSIDE RECORDS SUMMARY | 2025-06-09 09:42 | XMS_ITS | Clinical Summary ---
Author Organization [employer] Address [address] [place] [address] Care Team Providers Care Roastmaster Name Role Phone Ernie Noriega MD Primary Care Provide r Allergies No known active allergies Medications zolpidem (Ambien) 10 MG tablet Take 1 tablet by mouth. 09/29/20 19 Active albuterol 108 (90 Base) MCG/ACT inhaler Inhale 2 puffs every 4 (four) hours if needed. 08/25/20 19 Active Banophen 25 MG capsule Take 1-2 [...] Use daily 1 kit 04/26/20 24 Active omeprazole (PriLOSEC) [address] capsuleIndication s:Gastritis without bleeding, unspecified chronicity, unspecified gastritis type TOME 1 CAPSULA POR VIA ORAL TODOS [place]ARE[place] BEFORE A MEAL 90 capsule 3 11/29/19 25 Active fluticasone (Flonase) 50 MCG/ACT nasal sprayIndications: Seasonal allergies USE 2 SPRAYS INTO EACH NOSTRIL 2 TIMES DAILY 48 mL 02/15/20 25 Active oxyCODONE (Roxicodone) 5 MG immediate release tabletIndications :Chronic midline low back pain without sciatica Take 1 tablet (5 mg) by mouth every 6 (six) hours if needed for severe pain. 112 tablet 04/04/20 25 Active lidocaine (Lidoderm) 5 % patchIndications: Primary osteoarthritis of knee, unspecified laterality APPLY 1 TO 2 PATCHES TOPICALLY AND LEAVE ON UP TO 12 HOURS DAILY IF NEEDED FOR PAIN 60 patch 1 04/13/20 25 Active Acetaminophen Extra Strength 500 MG tabletIndications :Pain TAKE 1 TABLET BY MOUTH EVERY 12 HOURS IF NEEDED FOR PAIN 60 tablet 3 04/27/20 25 Active hydroCHLOROthiazi de (HYDRODiuril) 25 MG tabletIndications :Primary hypertension TAKE 1 TABLET BY MOUTH EVERY MORNING 90 tablet 04/27/20 25 Active montelukast (Singulair) 10 MG tabletIndications :Mild persistent asthma without complication TAKE 1 TABLET BY MOUTH EVERY DAY 90 tablet 04/27/20 25 Active gabapentin (Neurontin) 300 MG capsuleIndication s:Chronic midline low back pain without sciatica TAKE 2 CAPSULES BY MOUTH 3 TIMES DAILY 180 capsule 1 04/27/20 25 Active albuterol (2.5 MG/3ML) 0.083% nebulizer solution INHALE THE CONTENTS OF 1 VIAL WITH NEBULIZER 3 TIMES A DAY 75 mL 1 05/31/20 25 Active Advair Diskus 500-50 MCG/ACT aerosol powder Take 1 puff by mouth 2 times daily. Active bethanechol (Urecholine) 25 MG tablet Take 1 tablet by mouth 3 times daily. 04/27/20 25 Active methocarbamol (Robaxin) 500 MG tablet Take 1 tablet by mouth if needed in the morning, at noon, in the evening, and at bedtime for muscle spasms. 05/23/20 25 Active sennosides (Senokot) 8.6 MG tablet Take 8.6 mg by mouth at bedtime. 05/22/20 25 Active morphine CR (MS Contin) 15 MG 12 hr tablet Take 1 tablet by mouth every 12 (twelve) hours. Do not crush, chew, or split. Active polyethylene glycol, PEG, 3350 (MiraLax) 17 GM/SCOOP powderIndications :Constipation, unspecified constipation type Take 17g once daily for 3 day and then as needed 510 g 06/06/20 Active Fluticasone-Salme terol 250-50 MCG/ACT aerosol powder Inhale 1 puff every 12 (twelve) hours. 2024 Discontinued(M ed list cleanup (will not trigger notification to Pharmacy)) albuterol (2.5 MG/3ML) 0.083% nebulizer solution INHALE THE CONTENTS OF 1 VIAL WITH NEBULIZER 3 TIMES A DAY 75 mL 1 04/13/202024 Discontinued diclofenac (Cataflam) 50 MG tabletIndications :Ischial pain, right TOME 1 TABLETA POR VIA ORAL DOS VECES AL FERNANDO 60 tablet 3 04/27/202024 Discontinued(S top taking at discharge) polyethylene glycol, PEG, 3350 (Miralax) 17 g packet Take 17 g by mouth 2 times daily. 05/22/202024 Discontinued Active Problems Problem Noted Date Diagnosed Date Pulmonary nodules 04/04/2025 Assessment & Plan (04/04/2025 10:09 AM EDT): While undergoing a CT of her spine ( scanned 03/04/2025) there were Incidental finding of pulmonary nodules on CT of spine Radiologist recommended to repeat CT Chest in 3 months 05/2025 will order next visit Hx of closed dislocation of shoulder 04/04/2025 Assessment & Plan (04/04/2025 10:17 AM EDT): Pt seen in the ER 03/18/2025 after a fall onto an outstretched arm. X-rays were taken and showed a dislocation that was succesfully reduced. she was placed in a sling and referred to orthopedics. Patient was seen 03/27/2025 According to Ortho patient reports she is not having much pain in her shoulder. She notices that her bicep feels very sore and she has some bruising. Right foot pain 01/12/2025 Assessment & Plan [...] has chronic low back pain, treated at [facility] by Dr Clint Newberry. Hx of AP fusion from L4-sacrum in 2003. She has received epidural injections initially with good results but that is no longer the case. Pt developed lumbar spinal stenosis and on 01/14/2021 underwent Posterior neural foraminotomy L2-L3 by Dr. Bailey. She was admitted to [facility] from 11/13/2022 until 11/20/2022 due to worsening low back pain with radiation to her right thigh and right leg after an experimental thoracic spinal stimulation procedure at the surgery center [facility] (She was referred there by [facility]). Procedure was aborted after pt experienced severe [...] does not want to follow-up with [facility] d/t the severe pain she experienced with [...] of Orthopaedic specialist Dr Lees at [facility]. Pt would like to hold [...] of Orthopaedic specialist Dr Lees at [facility]. Pt would like to hold [...] has a Medical [place] Card recommended by [facility] treating physician. pt utilizes the liquid form. She is no longer under the care of [facility] I had been prescribing tramadol to use [...] has a Medical [place] Card recommended by [facility] treating physician. pt utilizes the liquid form. She is no longer under the care of [facility] I had been prescribing tramadol to use [...] has a Medical [place] Card recommended by [facility] treating physician. pt utilizes the liquid form. She is no longer under the care of [facility] I had been prescribing tramadol to use [...] Dr Soto who referred her back to [facility] for back pain History of total knee [...] the care of Dr Almeida at [facility]. see med list for current psychiatric meds, no changes. she has been stable they have requested me to continue his medications for insomnia, Ambien and Benadryl Chronic low back pain 05/12/2012 Assessment & Plan (05/09/2025 1:14 PM EDT): Pt here for a f/u c/p pain 10/10 Unable to walk on her own. Patient has a Hx of chronic low back pain, treated in the past at [facility] by Dr Clint Newberry. Hx of AP fusion from L4-sacrum in 2003. She received epidural injections with good results in the past. but that is no longer the case. Pt developed lumbar spinal stenosis and on 01/14/2021 underwent Posterior neural foraminotomy L2-L3by Dr. Bailey. Admitted to [facility] from 11/13/2022 until 11/20/2022 due to worsening low back pain with radiation to her right thigh and right leg after an experimental thoracic spinal stimulation procedure at the surgery center [facility] (She was referred there by [facility]). Procedure was aborted after pt experienced severe pain during the procedure. Patient treated with multiple rounds of pain medication with reported pain of 8/10. Acute pain service recommended increase in gabapentin dose hydromorphone and diazepam. Patient to continue PT. Condition stabilized. Her Gabapentin was increased to 600 mg po TID She was seen by Neurology as well who recommended no further work up from their perspective Seen by Spine surgeon Dr. Epstein as per his [...] the pain clinic. Pt was evaluated at [facility]: 11/08/2024 they did an MRI [...] encroachment seen. Subsequently she was referred to [facility] Neurosurgery, Their assesment was that patient hadsevere back pain likely related to [...] CTs of her thoracic and lumbar spine. 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 Severe T12 stenosis. Arachnoid cysts mid to upper thoracic spine. Pt continues to c/o severe lower back pain radiating down her legs with concordant balance issues. She has a severely degenerative spine with significant malalignment. Dr Peres present her to their multidisciplinary spine conference to discuss surgical intervention, He stated that he is considering intradural exploration and multilevel decompression. I have been prescribing Oxycodone 5 mg po q 6 hrs in the hopes of decreasing her pain. Pt is already scheduled for surgery 05/12/2025 FUSION, POSTERIOR, FOR SPINAL DEFORMITY, POSSIBLE CASTING, 7 TO 12 VERTEBRAL SEGMENTS Assessment & Plan (04/04/2025 4:26 PM EDT): Pt here for a f/u with c/o acute on chronic low back pain described as intensity 10/10 Patient has a Hx of chronic low back pain, treated in the past at [facility] by Dr Clint Newberry. Hx of AP fusion from L4-sacrum in 2003. She received epidural injections with good results in the past. but that is no longer the case. Pt developed lumbar spinal stenosis and on 01/14/2021 underwent Posterior neural foraminotomy L2-L3by Dr. Bailey. She was admitted to [facility] from 11/13/2022 until 11/20/2022 due to worsening low back pain with radiation to her right thigh and right leg after an experimental thoracic spinal stimulation procedure at the surgery center [facility] (She was referred there by [facility]). Procedure was aborted after pt experienced severe pain during the procedure. Patient treated with multiple rounds of pain medication with reported pain of 8/10. Acute pain service recommended increase in gabapentin dose hydromorphone and diazepam. Patient to continue PT. Condition stabilized. Her Gabapentin was increased to 600 mg po TID She was seen by Neurology as well who recommended no further work up from their perspective She was referred to Spine surgeon Dr. [...] the pain clinic. Pt was evaluated at [facility]: 11/08/2024 they did an MRI [...] encroachment seen. Subsequently she was referred to [facility]surgery, Their assesment was that patient hadsevere back pain likely related to [...] CTs of her thoracic and lumbar spine. 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 Severe T12 stenosis. Arachnoid cysts mid to upper thoracic spine. Pt continues to c/o severe lower back pain radiating down her legs with concordant balance issues. She has a severely degenerative spine with significant malalignment. Dr Peres present her to their multidisciplinary spine conference to discuss surgical intervention, He stated that he is considering intradural exploration and multilevel decompression. Plan: I have started her on Oxycodone 5 mg po q 6 hrs in the hopes of decreasing her pain,pending on what the neurosurgeon will ultimately decide, we might need to transition to long acting narcotic agent Assessment & Plan (01/12/2025 3:22 PM EDT): Pt here for a f/u Hx of chronic low back pain, treated in the past at [facility] by Dr Clint Newberry. Hx of AP fusion from L4-sacrum in 2003. She received epidural injections with good results in the past. but that was no longer the case. Pt developed lumbar spinal stenosis and on 01/14/2021 underwent Posterior neural foraminotomy L2-L3by Dr. Bailey. She was admitted to [facility] from 11/13/2022 until 11/20/2022 due to worsening low back pain with radiation to her right thigh and right leg after an experimental thoracic spinal stimulation procedure at the surgery center [facility] (She was referred there [...] the pain clinic. Pt was evaluated at [facility]: 11/08/2024 they did an MRI [...] encroachment seen. Subsequently she was referred to [facility]surgery, seen Their assesment was:that patient [...] treated in the past at [facility] by Dr Clint Newberry. Hx of AP fusion from L4-sacrum in 2003. She received epidural injections with good results in the past. but that was no longer the case. Pt developed lumbar spinal stenosis and on 01/14/2021 underwent Posterior neural foraminotomy L2-L3by Dr. Bailey. She was admitted to [facility] from 11/13/2022 until 11/20/2022 due to worsening low back pain with radiation to her right thigh and right leg after an experimental thoracic spinal stimulation procedure at the surgery center [facility] (She was referred there by [facility]). Procedure was aborted after pt experienced severe [...] pain, she had been receiving treatment at [facility] by Dr Clint Newberry. Hx of AP fusion from L4-sacrum in 2003. She has received epidural injections with good results in the past. but that was no longer the case. Pt developed lumbar spinal stenosis and on 01/14/2021 underwent Posterior neural foraminotomy L2-L3by Dr. Bailey. Patient is here for a follow up. She was recently admitted to [facility] from 11/13/2022 until 11/20/2022 due to worsening low back pain with radiation to her right thigh and right leg after an experimental thoracic spinal stimulation procedure at the surgery center [facility] (She was referred there by [facility]). Procedure was aborted after pt experienced severe [...] does not want to follow-up with [facility] d/t the severe pain she experienced with [...] pain, she had been receiving treatment at [facility] by Dr Clint Newberry. Hx of AP fusion from L4-sacrum in 2003. She has received epidural injections with good results in the past. but that was no longer the case. Pt developed lumbar spinal stenosis and on 01/14/2021 underwent Posterior neural foraminotomy L2-L3by Dr. Bailey. She was admitted to [facility] from 11/13/2022 until 11/20/2022 due to worsening low back pain with radiation to her right thigh and right leg after an experimental thoracic spinal stimulation procedure at the surgery center [facility] (She was referred there by [facility]). Procedure was aborted after pt experienced severe pain during the procedure. Patient treated with multiple rounds of pain medication with reported pain of 8/10. Acute pain service recommended increase in gabapentin dose hydromorphone and diazepam. Per Dr. Btehea, no further inpatient intervention needed. Patient to continue PT. Condition stabilized and patient was discharged home to follow up with us. Her Gabapentin was increased to 600 mg po TID Today she says she is always in pain but pain. She requires assistance walking to bathroom during the night or morning. She does not want to follow-up with [facility] d/t the severe pain she experienced with [...] pain, she had been receiving treatment at [facility] by Dr Clint Newberry. Hx of AP fusion from L4-sacrum in 2003. She has received epidural injections with good results in the past. but that was no longer the case. Pt developed lumbar spinal stenosis and on 01/14/2021 underwent Posterior neural foraminotomy L2-L3by Dr. Bailey. Patient is here for a follow up. She was recently admitted to [facility] from 11/13/2022 until 11/20/2022 due to worsening low back pain with radiation to her right thigh and right leg after an experimental thoracic spinal stimulation procedure at the surgery center [facility] (She was referred there by [facility]). Procedure was aborted after pt experienced severe [...] does not want to follow-up with [facility] d/t the severe pain she experienced with [...] Encounters Date Type Department Care Team Description 06/07/2025 Telephone [facility] [place] [address] Ernie Noriega MD FYI 06/06/2025 10:30 AM EDT Office Visit [facility] [place] [address] Ilsa Robison ANP Hospital discharge follow-up (Primary Dx); Status post osteotomy; Status post laminectomy with spinal fusion; Constipation, unspecified constipation type; Acute pain of right knee; Anemia, unspecified type; Chronic right shoulder pain 06/06/2025 Travel 05/30/2025 Refill [facility] [place] [address] Ernie Noriega MD 05/30/2025 Travel 05/26/2025 Telephone [facility] [place] [address] Ernie Noriega MD Referral 05/24/2025 Telephone [facility] [place] [address] Ernie Noriega MD Verbal Order 05/23/2025 Patient Outreach [facility] [place] [address] Ernie Noriega MD Transition Of Care (Tcm) (HDF- Transferred to Rehab due to Surgery ) 05/09/2025 1:00 PM EDT Office Visit [facility] [place] [address] Ernie Noriega MD Chronic midline low back pain without sciatica (Primary Dx) 05/09/2025 Travel 05/08/2025 Telephone [facility] [address] [place] [address] Ernie Noriega MD Chart Prep 05/02/2025 Telephone [facility] [address] [place] [address] Ernie Noriega MD Durable Medical Equipment (DME Request: Hip Kit) 05/02/2025 Travel 04/27/2025 Orders Only GENERIC EXTERNAL DATA DEPARTMENT Provider, Generic External Data 04/26/2025 Refill [facility] [address] [place] [address] Ernie Noriega MD Ischial pain, right; Pain; Primary hypertension; Mild persistent asthma without complication; Chronic midline low back pain without sciatica; Primary osteoarthritis of knee, unspecified laterality 04/18/2025 Telephone [facility] [address] [place] [address] Ernie Noriega MD Referral 04/13/2025 Orders Only [facility] [address] [place] [address] Ernie Noriega MD Right foot pain (Primary Dx) 04/13/2025 Refill [facility] [address] [place] [address] Ernie Noriega MD Primary osteoarthritis of knee, unspecified laterality 04/13/2025 Refill [facility] [address] [place] [address] Ernie Noriega MD Primary osteoarthritis of knee, unspecified laterality 04/11/2025 Telephone [facility] [address] [place] [address] Ernie Noriega MD 04/11/2025 Refill [facility] [address] [place] [address] Ofelia Melgar MD 04/06/2025 Orders Only [facility] External Provider, [facility] 04/04/2025 10:15 AM EDT Office Visit [facility] [address] [place] [address] Ernie Noriega MD Chronic midline low back pain without sciatica (Primary Dx); Pulmonary nodules; Hx of closed dislocation of shoulder; Right foot pain; Frequent falls 04/04/2025 Telephone [facility] [address] [place] [address] Peg Peoples, RN VNA Referral; Durable Medical Equipment 04/04/2025 Travel 04/03/2025 Travel 04/03/2025 Telephone [facility] [address] [place] [address] Ernie Noriega MD chart prep 04/01/2025 Refill [facility] [address] [place] [address] Ernie Noriega MD Primary hypertension; Seasonal allergies 04/01/2025 Refill [facility] [address] [place] [address] Perlita Myers MD Mild persistent asthma without complication 03/27/2025 Telephone [facility] [address] [place] [address] Peg Peoples, RN Appointment Request 03/22/2025 Refill [facility] [address] [place] [address] Ernie Noriega MD Gastritis without bleeding, unspecified chronicity, unspecified gastritis type; Ischial pain, right; Pain; Chronic midline low back pain without sciatica 03/20/2025 Patient Outreach [facility] [address] [place] [address] Ernie Noriega MD Transition Of Care (Tcm) 03/18/2025 Orders Only [facility] External Provider, [facility] 03/10/2025 Refill [facility] [address] [place] [address] Ernie Noriega MD Chronic midline low back pain without sciatica 03/09/2025 Orders Only [facility] [address] [place] [address] Provider, MD Neville from Last 3 Months Immunizations Immunization Administration [...] adsorbed 05/12/2012 Tdap 04/04/2021,03/10/2014 Zoster, Recombinant 08/15/2020,05/26/2020 Family History Medical History Relation Name Comments Diabetes Mother Zaria Heart disease Mother Zaria Stroke Mother Zaria Hypertension Sister 1 Perlita Hypertension Sister 2 Perlita Relation Name Status Comments Mother Zaria Alive Sister 1 Perlita Alive Sister 2 Perlita Alive Social History Tobacco Use Types Packs/Day [...] (153 lb) 06/06/2025 10:45 AM EDT Height 160 cm (5' 3 ) 04/04/2025 10:11 AM EDT Body Mass Index 27.1 04/04/2025 10:11 AM EDT Plan of Treatment Upcoming Encounters Date Type Department Care Team (Late st Contact Info) Description 07/06/2025 11:15 AM EDT Office Visit [facility] [address] [place] [address] Ernie Noriega MD [address] [place] [address] Health Maintenance Due Date Last Done Comments CT Colonography 1963 FIT DNA/Cologuard 1963 FIT 1963 FOBT 1963 HIV Screening 1965 Sigmoidoscopy 1963 Pap Smear 1984 RSV Patients and Patients Aged 60 years or older (1 - Risk 60-74 years 1-dose series) 2023 COVID-19 Vaccine ( season) 2024 07/16/2022, 08/28/2021, 02/22/2021, Additional history exists Influenza Vaccine (#1) 2025 , 07/21/2023, 07/16/2022, Additional history exists Alcohol/Substance Use Screening 10/13/2025 10/13/2024 Cervical Cancer Screening 12/19/2025 HPV/Cotest 12/19/2025 12/19/2020, 12/10, 09/02/2019 Depression Screening 01/12/2026 01/12/2025, 01/13/20 25 SDOH Screening 01/12/2026 01/12/2025 Disability Screening 04/04/2026 04/04/2025 Tobacco Screening 06/06/2026 06/06/2025 Mammogram 01/05/2027 01/05/2025, 12/11, 12/23/2022, Additional history exists Colonoscopy 03/18/2029 03/18/2024, 0604/2024, 06/15/2013 Colorectal Cancer Screening 03/18/2029 Lipid Panel [...] Procedure Name Priority Date/Time Associated Diagnosis Comments CULTURE, URINE, ROUTINE Routine 04/27/2025 11:40 AM EDT XR KNEE 3 VIEWS RIGHT Routine 04/17/2025 4:00 PM EDT XR FOOT 3+ VIEWS RIGHT Routine 04/04/2025 10:17 AM EDT Right foot pain XR SHOULDER 2+ VIEWS RIGHT Routine 03/18/2025 4:30 PM EDT XR HUMERUS RIGHT Routine 03/18/2025 2:22 PM EDT XR SHOULDER 2+ VIEWS RIGHT Routine 03/18/2025 1:50 PM EDT LIPID PANEL, STANDARD Routine 01/25/2025 8:37 AM EDT Essential hypertension BI MAMMOGRAM SCREENING TOMOSYNTHESIS BILATERAL Routine 01/05/2025 10:00 AM EDT HM COLONOSCOPY Routine 03/18/2024 HEPATITIS C AB W/REFL TO HCV RNA, QN, PCR Routine 11/07/2022 8:24 AM EST Essential hypertension ZZZ HISTORICAL HPV E6/E7 RFLX SERGIO 16 18/45 Routine 12/19/2020 3:40 PM EST from Last 3 Months or Most Recently Relevant to Health Maintenance Results * Culture, Urine, Routine (04/27/2025 11:40 AM EDT) Urine Urine specimen obtained by clean catch procedure / Unknown 04/27/2025 11:40 AM EDT 04/27/2025 5:12 PM EDT Comment:UACC Narrative [facility] - 04/29/2025 10:49 AM EDT Urine Culture Report Result Urine Culture < 10,000 cfu/ml Specimen Source: Urine clean catch us Generic External Data Provider LAB MICROBIOLOGY - GENERAL ORDERABLES Final Result [facility] [address] [place] [address] [phone] * XR Knee 3 Views Right (04/17/2025 4:00 PM EDT) Anatomical Region Laterality Modality Lower Extremities, Knee Right Radiogra phic Imaging 04/17/2025 4:00 PM EDT Narrative 04/17/2025 4:02 PM EDT [facility] [address] [place] [address] XRay Report Signed Patient: Miguelina Julien MR#: [id number] [birth year] : 1965 Acct:[id number] Age/Sex: 59 / F ADM Date: 04/06/25 Loc: HO.HOSX Attending Dr: Michelle Peguero PA-C Ordering Physician: Michelle Peguero PA-C Date of Service: 04/06/25 Procedure(s): XR knee RT 3V Accession Number(s): [id number] cc: Ernie Merritt MD; Michelle Peguero PA-C CLINICAL HISTORY: M25.569 - Pain in unspecified knee Exam: Right knee three views Comparison: None Findings: Likely acute comminuted displaced fracture of patella lower pole, 7 mm posterior displacement of the dominant distal fragment, neighboring infrapatellar soft tissue swelling. Status post total knee arthroplasty, intact hardware without loosening. Loose bodies posteriorly. No dislocation. Impression: Acute comminuted displaced fracture of patellar lower pole, neighboring soft tissue swelling. This document has been electronically signed by: Christie Fernandez MD on 04/17/2025 16:00:56 Dictated By: Christie Fernandez MD Signed By: <Electronically signed by Christie Fernandez MD in OV> 04/17/25 1602 DD/ 1600 TD/TT: 04/17/251599 Wind Energy Technician: Procedure Note Donotazarinterpreter, Image - 04/17/2025 [facility] [address] [place] [address] Drive [address] [place] [address] XRay Report Signed Patient: Miguelina Julien#: [id number] 12 : 1965Acct:[id number] Age/Sex: 59 / FADM Date: 04/06/25 Loc: PASCUALHammadRAVEN Attending Dr: Michelle Peguero PA-C Ordering Physician: Michelle Peguero PA-C Date of Service: 04/06/25 Procedure(s): XR knee RT 3V Accession Number(s): [id number] cc: Ernie Merritt MD; Michelle Peguero PA-C CLINICAL HISTORY: M25.569 - Pain in unspecified knee Exam: Right knee three views Comparison: None Findings: Likely acute comminuted displaced fracture of patella lower pole, 7 mm posterior displacement of the dominant distal fragment, neighboring infrapatellar soft tissue swelling. Status post total knee arthroplasty, intact hardware without loosening. Loose bodies posteriorly. No dislocation. Impression: Acute comminuted displaced fracture of patellar lower pole, neighboring soft tissue swelling. This document has been electronically signed by: Christie Fernandez MD on 04/17/2025 16:00:56 Dictated By: Christie Fernandez MD Signed By: <Electronically signed by Christie Fernandez MD in OV> 04/17/25 1602 DD/ 1600 TD/TT: 04/17/25 1600 Wind Energy Technician: [facility] External Provider IMG XR PROCEDURES Final Result * XR Foot 3+ Views Right (04/04/2025 10:17 AM EDT) Anatomical Region Laterality Modality Lower Extremities, Foot Right Radiogra phic Imaging 04/04/2025 10:1 7 AM EDT Narrative 04/04/2025 11:59 AM EDT [address] [address] XRay Report Signed Patient: Miguelina Julien MR#: [id number] 12 : 1965 Acct:[id number] Age/Sex: 59 / F ADM Date: 04/04/25 Loc: HO.ISELACX Attending Dr: Ernie Merritt MD Ordering Physician: Ernie Merritt MD Date of Service: 04/04/25 Procedure(s): XR foot RT min 3V Accession Number(s): [id number] cc: Ernie Merritt MD EXAMINATION: XR FOOT, RIGHT CLINICAL INFORMATION: right foot pain COMPARISON: None available. TECHNIQUE: AP, lateral, and oblique views of the right foot. FINDINGS: There is mild asymmetric narrowing of the first metatarsophalangeal joint with small marginal osteophytes. There is a bipartite medial sesamoid. There is a bony spur at the base of the fifth metatarsal. The calcaneal enthesophyte at the distal Achilles insertion. XR/XR foot RT min 3V IMPRESSION: Mild first MTP joint osteoarthritis. Electronically signed by: Preston Bernal MD 04/04/2025 11:57 AM EDT Dictated By: Preston Bernal MD Signed By: <Electronically signed by Preston Bernal MD in OV> 04/04/25 1157 DD/ 1017 TD/TT: 04/04/25 1020 Wind Energy Technician: Procedure Note Donotuseinterpreter, Image - 04/04/[address] [address] XRay Report Signed Patient: Miguelina JulienMR#: [id number] 12 : 1965Acct:[id number] Age/Sex: 59 / FADM Date: 04/04/25 Loc: HOCONNIECX Attending Dr: Ernie Merritt MD Ordering Physician: Ernie Merritt MD Date of Service: 04/04/25 Procedure(s): XR foot RT min 3V Accession Number(s): [id number] cc: Ernie Merritt MD EXAMINATION: XR FOOT, RIGHT CLINICAL INFORMATION: right foot pain COMPARISON: None available. TECHNIQUE: AP, lateral, and oblique views of the right foot. FINDINGS: There is mild asymmetric narrowing of the first metatarsophalangeal joint with small marginal osteophytes. There is a bipartite medial sesamoid. There is a bony spur at the base of the fifth metatarsal. The calcaneal enthesophyte at the distal Achilles insertion. XR/XR foot RT min 3V IMPRESSION: Mild first MTP joint osteoarthritis. Electronically signed by: Preston Bernal MD 04/04/2025 11:57 AM EDT Dictated By: Preston Bernal MD Signed By: <Electronically signed by Preston Bernal MD in OV> 04/04/25 1157 DD/ 1017 TD/TT: 04/04/25 1020 Wind Energy Technician: us Ernie Ro MD IMG XR PROCEDURES Fin al Result * XR Shoulder 2+ Views Right (03/18/2025 4:30 PM EDT) Only the most recent of2 resultswithin the time period is included. Anatomical Region Laterality Modality Upper Extremities, Shoulder Right Radi ographic Imaging 03/18/2025 4:30 PM EDT Narrative 03/18/2025 4:31 PM EDT [address] [address] XRay Report Signed Patient: Miguelina Julien MR#: [id number] 12 : 1965 Acct:[id number] Age/Sex: 59 / F ADM Date: 03/18/25 Loc: HO.ED Attending Dr: Ordering Physician: Sue Tran PA-C Date of Service: 03/18/25 Procedure(s): XR shoulder RT min 2V Accession Number(s): [id number] cc: Sue Tran PA-C; Ernie Merritt MD CLINICAL HISTORY: s p shoulder reduction 3 view right shoulder Comparison: None Findings: Moderate degenerative change of the glenohumeral and acromioclavicular joints. No fracture or dislocation. No erosions. No radiopaque foreign body. IMPRESSION: Successful reduction of the previous right glenohumeral dislocation. This document has been electronically signed by: Riki Magana MD on 03/18/2025 16:30:00 Dictated By: Riki Magana MD Signed By: <Electronically signed by Riki Magana MD in OV> 03/18/25 1630 DD/ 1630 TD/TT: 03/18/25 1630 Wind Energy Technician: Procedure Note Donotuseinterpreter, Image - 03/18/[address] [address] XRay Report Signed Patient: Miguelina Julien#: [id number] 12 : 1965Acct:[id number] Age/Sex: 59 / FADM Date: 03/18/25 Loc: .ED Attending Dr: Ordering Physician: Sue Tran PA-C Date of Service: 03/18/25 Procedure(s): XR shoulder RT min 2V Accession Number(s): [id number] cc: Sue Tran PA-C; Ernie Merritt MD CLINICAL HISTORY: s p shoulder reduction 3 view right shoulder Comparison: None Findings: Moderate degenerative change of the glenohumeral and acromioclavicular joints. No fracture or dislocation. No erosions. No radiopaque foreign body. IMPRESSION: Successful reduction of the previous right glenohumeral dislocation. This document has been electronically signed by: Riki Magana MD on 03/18/2025 16:30:00 Dictated By: Riki Magana MD Signed By: <Electronically signed by Riki Magana MD in OV> 03/18/25 1630 DD/ 1630 TD/TT: 03/18/25 1630 Wind Energy Technician: [facility] External Provider IMG XR PROCEDURES Edited Result - Final * XR Humerus Right (03/18/2025 2:22 PM EDT) Anatomical Region Laterality Modality Upper Extremities, Humerus Right Radio graphic Imaging 03/18/2025 2:22 PM EDT Narrative 03/18/2025 2:23 PM EDT [address] [address] XRay Report Signed Patient: Miguelina Julien MR#: [id number] 12 : 1965 Acct:[id number] Age/Sex: 59 / F ADM Date: 03/18/25 Loc: HO.ED Attending Dr: Ordering Physician: Sue Tran PA-C Date of Service: 03/18/25 Procedure(s): XR humerus RT Accession Number(s): [id number] cc: Sue Tran PA-C; Ernie Merritt MD CLINICAL HISTORY: fall, dislocation, ; neutral 1V per ordering provider to confirm/deny humeral fx before reducing shoulder. image copied to remove accidental N placed in anatomy on portable machine. unable to delete image from folder. Radiograph of the right humerus, single view Comparison: None Findings: Anterior glenohumeral joint dislocation. No fracture of the humerus. Aaju-ws-szkhzvmm degenerative change. Bone mineralization is decreased. No soft tissue swelling. Impression: Intact humerus. Anterior glenohumeral joint dislocation. This document has been electronically signed by: Christine Blood MD on 03/18/2025 14:22:10 Dictated By: Christine Diaz MD Signed By: <Electronically signed by Christine Diaz MD in OV> 03/18/25 1423 DD/ 1422 TD/TT: 03/18/25 142 Wind Energy Technician: Procedure Note Donotuseinterpreter, Image - 03/18/2025 [address] [place] [address] XRay Report Signed Patient: Miguelina JulienMR#: [id number] 12 : 1965Acct:[id number] Age/Sex: 59 / FADM Date: 03/18/25 Loc: HO.ED Attending Dr: Ordering Physician: Sue Tran PA-C Date of Service: 03/18/25 Procedure(s): XR humerus RT Accession Number(s): [id number] cc: Sue Tran PA-C; Ernie Merritt MD CLINICAL HISTORY: fall, dislocation, ; neutral 1V per ordering providerto confirm/deny humeral fx before reducing shoulder. image copied to remove accidental N placed inanatomy on portable machine. unable to delete image from folder. Radiograph of the right humerus, single view Comparison: None Findings: Anterior glenohumeral joint dislocation. No fracture of the humerus. Ztvo-qq-zwgxzfjv degenerative change. Bone mineralization is decreased. No soft tissue swelling. Impression: Intact humerus. Anterior glenohumeral joint dislocation. This document has been electronically signed by: Christine Blood MD on 03/18/2025 14:22:10 Dictated By: Christine Diaz MD Signed By: <Electronically signed by Christine Diaz MD in OV> 03/18/25 1423 DD/ 1422 TD/TT: 03/18/25 1422 Wind Energy Technician: [facility] External Provider IMG XR PROCEDURES Edited Result - Final * (ABNORMAL) Lipid Panel, Standard (01/25/2025 8:37 AM EDT) Triglycerides 165(H) <150 mg/dL [facility] Comment:Desirable Triglyceri de: less than 150 mg/dLBorderline High Triglyceride 150-199 mg/dLHigh Triglyceride: 200-499 mg/dLVery High Triglyceride: greater than or equal to 5OO mg/dL Cholesterol 232(H) <200 mg/dL [facility] Comment:Desirable Cholestero l: less than 200 mg/dLBorderline High Cholesterol: 200-239 mg/dLHigh Cholesterol: greater than 239 mg/dL LDL Cholesterol Calculated 133(H) <100 mg/dL [facility] Comment:Desirable LDL: less than 100 mg/dLNear Optimal/Above Optimal LDL: 110- 129 mg/dLBorderline High LDL: 130-159 mg/dLHigh LDL: 160-189 mg/dLVery High LDL: greater than or equal to 190 mg/dL HDL Cholesterol 66 >40 mg/dL [facility] Comment:Desirable HDL: great er than 40 mg/dL Note: This HDL assay may give artificially low results in patients with liver disease. Blood Venous blood specimen / Unknown 01/25/2025 8:37 AM EDT 01/25/2025 11:14 AM EDT Ernie Ro MD LAB BLOOD ORDERABLES Final Result Performing Organization Address City/State/[facility] Co de Phone Number [facility] [address] [place] [phone] * BI Mammogram Screening Tomosynthesis Bilateral (01/05/2025 10:00 AM EDT) Anatomical Region Laterality Modality Breast Bilateral Mammography 01/05/2025 10:0 0 AM EDT Narrative 01/13/2025 2:49 PM EDT [facility] [address] [place] [address] Mammography Report Signed Patient: Miguelina Julien MR#: [id number] [birth year] : 1965 Acct:[id number] Age/Sex: 59 / F ADM Date: 01/05/25 Loc: HO.MAMMO Attending Dr: Ernie Merritt MD Ordering Physician: Ernie Merritt MD Resu lts: 1Negative Date of Service: 01/05/25 Follow Up: 1 Year From Orig inal Mammogram Procedure(s): MM tomosynthesis screening BI Accession Number(s): [id number] cc: Ernie Merritt MD EXAMINATION: MM SCREENING [...] 01/13/25 1447 DD/ 1000 TD/TT: 01/05/25 1015 Wind Energy Technician: Procedure Note Donotuseinterpreter, Image - 01/13/2025 [facility] [address] [place], [place] [address] Mammography Report Signed Patient: Miguelina Julien#: [id number] 12 : 1965Acct:[id number] Age/Sex: 59 / FADM Date: 01/05/25 Loc: HO.MAMMO Attending Dr: Ernie Merritt MD Ordering Physician: Ernie Merritt MDResu lts: 1Negative Date of Service: 01/05/25Follow Up: 1 Year From Orig inal Mammogram Procedure(s): MM tomosynthesis screening BI Accession Number(s): [id number] cc: Ernie Merritt MD EXAMINATION: MM SCREENING [...] 01/13/25 1447 DD/ 1000 TD/TT: 01/05/25 1015 Wind Energy Technician: Ernie Ro MD IMG BI PROCEDURES Fin al Result * (ABNORMAL) Colonoscopy (03/18/2024) Colonoscopy Abnormal( A) Normal Comment:Tubular Adenoma 03/18/2024 Historical Provider [facility] Final Result * Hepatitis C Antibody with Reflex to HCV, RNA, Quantitative, Real-Time PCR (11/07/2022 8:24 AM EST) Hepatitis C Antibody NON-REACT TAMARA NON-REACT TAMARA [facility] Index 0.12 <1.00 [facility] Comment: HCV antibody was non-reactive. There is no laboratory evidence of HCV infection. In most cases, no further action is required. However, if recent HCV exposure is suspected, a test for HCV RNA (test code 95410) is suggested. For additional information please refer to http://education.Ept[employer]/faq/ERV01e2 (This link is being provided for informational/ educational purposes only.) Blood Venous blood specimen / Unknown 11/07/2022 8:24 AM EST 11/07/2022 8:25 AM EST Narrative [facility] - 11/08/2022 12:51 AM EST FASTING:YES FASTING: YES Ernie Ro MD LAB BLOOD ORDERABLES Final Result Performing Organization Address [facility] de Phone Number [address], [place] [address] [facility] [address] [place] [address], (Nl2) [place] [address] * HPV E6/E7 RFLX SERGIO 16 18/45 (12/19/2020 3:40 PM EST) HPV 16 RNA [facility] HPV 18/45 RNA [facility] HPV E6 E7 ADD [facility] HPV mRNA E6/E7 rflx Not Detected Not Detected [facility] Comment: Methodology: Paper Machine Back Tender-Mediated Amplification This assay detects E6/E7 viral messenger RNA (mRNA) from 14 high-risk HPV types (16,18,31,33,35,39,45,51,52,56,58,59,66,68). The analytical performance characteristics of this assay have been determined by [facility]. The modifications have not been cleared or approved by the FDA. This assay has been validated pursuant to the CLIA regulations and is used for clinical purposes. For additional information, please refer to http://education.Eptica/faq/JQX521f6 (This link if provided for information/ educational purposes only.) THIS TEST WAS PERFORMED AT: [facility] [address] [place] [address],[place] [address] FLACA ANTONY MD 12/19/2020 3:40 PM EST Historical Provider MD HISTORICAL/NON ORDERABLE LABS Final Result Performing Organization Address City/[facility] Co de Phone Number [facility] [address] from Last 3 Months or Most Recently Relevant to Health Maintenance Insurance [facility] C3 Care Teams Roastmaster Relationship Specialty Start Date End Date Ernie Noriega MD [address] [place] [phone] PCP - General Internal Medicine 08/25/19 [facility] 05/25/25
--- OUTSIDE RECORDS SUMMARY | 2025-06-09 09:42 | XMS_ITS | Encounter Summary ---
Author Organization [employer] Address [address] [facility] 7t [place] [address] Care Team Providers Care Dietitian Chief Name Role Phone Ernie Noriega MD Primary Care Provide r Reason for Visit * Reason Comments Med Refill Encounter Details Date Type Department Care Team ([facility] Contact Info) Description 10/11/2023 Refill [facility] [address] [place] [address] Ernie Noriega MD [address] [place], [place] [phone] Social History Tobacco Use Types Packs/Day Years [...] 11:15 AM EDT Office Visit [facility] [address] [place] [address] Ernie Noriega MD [address] [place] [address] documented as of this encounter Visit Diagnoses Not on filedocumented in this encounter Additional Health Concerns Assessment Noted Time PHQ-9 Depression Total Score: 0 12/02/19 23 2:38 PM EST documented as of this encounter Care Teams Dietitian Chief Relationship Specialty Start Date End Date Ernie Noriega MD [address] [place] [address] PCP - General Internal Medicine 08/25/19 [facility] 03/31/25 05/25/25 [facility] 05/25/25 documented as of this encounter
--- OUTSIDE RECORDS SUMMARY | 2025-06-09 09:42 | XMS_ITS | Encounter Summary ---
Author Organization [employer] Address [address] [facility] 7t [place] [address] Care Team Providers Care Mentally Retarded Teacher Name Role Phone Ernie Noriega MD Primary Care Provide r Reason for Visit * Reason Onset Date Comments FYI 06/07/2025 Encounter Details Date Type Department Care Team ([facility] Contact Info) Description 06/07/2025 Telephone [facility] [address] [place] [address] Ernie Noriega MD [address] [place] [address] FYI Social History Tobacco Use Types Packs/Day Years [...] Telephone Encounter - Catalina West RN - 06/07/2025 4:14 PM EDT Noted * Telephone Encounter - Son Mak - 06/07/2025 4:09 PM EDT FYI> Tc from Nellie a physical therapist with [facility] reporting that she had opened Physical therapy to the pt as of 06/07/2025. Any questions contact nellie at [phone] documented in this encounter Plan of Treatment Upcoming Encounters Date Type Department Care Team (Late st Contact Info) Description 07/06/2025 11:15 AM EDT Office Visit [facility] [address] [place], [place] [phone] Ernie Noriega MD [address] [place] [address] documented as of this encounter Visit Diagnoses Not on filedocumented in this encounter Additional Health Concerns Assessment Noted Time PHQ-9 Depression Total Score: 4 01/13/20 25 2:57 PM EDT documented as of this encounter Care Teams Mentally Retarded Teacher Relationship Specialty Start Date End Date Ernie Noriega MD [address] [place] [address] PCP - General Internal Medicine 08/25/19 [facility] 05/25/25 documented as of this encounter
--- OUTSIDE RECORDS SUMMARY | 2025-06-09 09:42 | XMS_ITS | Encounter Summary ---
Author Organization [employer] Address [address] [facility] 7t [place] [address] Care Team Providers Care Investor Relations Manager Name Role Phone Ernie Noriega MD Primary Care Provide r Reason for Visit * Reason Onset Date Comments Med Refill 11/04/2023 Encounter Details Date Type Department Care Team ([facility] st Contact Info) Description 11/04/2023 Refill [facility] [address] [place] [address] Ernie Noriega MD [address] [place] [address] Pain Social History Tobacco Use Types Packs/Day [...] Description 07/06/2025 11:15 AM EDT Office Visit [facility] [address] [place] [phone] Ernie Noriega MD [address] [place] [phone] documented as of this encounter Visit Diagnoses Diagnosis Pain Generalized pain documented in this encounter Additional Health Concerns Assessment Noted Time PHQ-9 Depression Total Score: 0 12/02/19 23 2:38 PM EST documented as of this encounter Care Teams Investor Relations Manager Relationship Specialty Start Date End Date Ernie Noriega MD [address] [place] [phone] PCP - General Internal Medicine 08/25/19 [facility] 03/31/25 05/25/25 [facility] 05/25/25 documented as of this encounter
--- OUTSIDE RECORDS SUMMARY | 2025-06-09 09:42 | XMS_ITS | Encounter Summary ---
Author Organization [email or web address] Address [address] [facility] 7t [place] [address] Care Team Providers Care Cell Manager Name Role Phone Ernie Noriega MD Primary Care Provide r Reason for Visit * Reason Comments Med Refill Encounter Details Date Type Department Care Team ([facility] st Contact Info) Description 08/10/2023 Refill [facility] [address] [place] [address] Perlita Woody MD [address] [place] [address] Seasonal allergies; Primary hypertension Social History Tobacco [...] 07/06/2025 11:15 AM EDT Office Visit [facility] [address] [place] [address] Ernie Noriega MD [address] [place] [address] documented as of this encounter Visit Diagnoses Diagnosis Seasonal allergies Allergic rhinitis, cause unspecified Primary hypertension Unspecified essential hypertension documented in this encounter Additional Health Concerns Assessment Noted Time PHQ-9 Depression Total Score: 0 12/02/19 23 2:38 PM EST documented as of this encounter Care Teams Cell Manager Relationship Specialty Start Date End Date Ernie Noriega MD [address] [place] [address] PCP - General Internal Medicine 08/25/19 [facility] 03/31/25 05/25/25 [facility] 05/25/25 documented as of this encounter
--- OUTSIDE RECORDS SUMMARY | 2025-06-09 09:42 | XMS_ITS | Encounter Summary ---
Author Organization [email or web address] Address [address] [facility] 7t [place] [address] Care Team Providers Care Nurses' Association Counselor Name Role Phone Ernie Noriega MD Primary Care Provide r Reason for Visit * Reason Comments Med Refill Encounter Details Date Type Department Care Team ([facility] st Contact Info) Description 11/20/2023 Refill [facility] [address] [place] [address] Ernie Noriega MD [address] [place], [place] [phone] Pain Social History Tobacco Use Types Packs/Day [...] [facility] [address] [place] [address] Ernie Noriega MD [address] [place] [address] documented as of this encounter Visit Diagnoses Diagnosis Pain Generalized pain documented in this encounter Additional Health Concerns Assessment Noted Time PHQ-9 Depression Total Score: 0 12/02/19 23 2:38 PM EST documented as of this encounter Care Teams Nurses' Association Counselor Relationship Specialty Start Date End Date Ernie Noriega MD [address] [place] [phone] PCP - General Internal Medicine 08/25/19 [facility] 03/31/25 05/25/25 [facility] 05/25/25 documented as of this encounter
--- OUTSIDE RECORDS SUMMARY | 2025-06-09 09:42 | XMS_ITS | Encounter Summary ---
Author Organization [employer] [facility] Address [address] [facility] 7t [place] [address] Care Team Providers Care Transmitter Engineer In Charge Name Role Phone Ernie Noriega MD Primary Care Provide r Encounter Details Date Type Department Care Team (Latest Contact Info) Description 06/19/2022 Abstract [facility] CONVERSIONS Dental, Provider, DDS Social History [...] [facility] [address] [place] [address] Ernie Noriega MD [address] [place] [address] documented as of this encounter Visit Diagnoses Not on filedocumented in this encounter Care Teams Transmitter Engineer In Charge Relationship Specialty Start Date End Date Ernie Noriega MD [address] [place] [address] PCP - General Internal Medicine 08/25/19 [facility] 03/31/25 05/25/25 [facility] 05/25/25 documented as of this encounter
[2025-06-09 10:00] LABS: MANUAL DIFF FLAG NO
[2025-06-09 10:37] LABS: Hematocrit 31.8 % (37.0-47.0); Hemoglobin 10.0 g/dl (12.0-16.0); Imm Gran Abs Auto 0.08 X10*3/uL (0.00-0.03); Imm Gran Pct Auto 1.0 % (0.0-0.4); Lymphocytes Absolute Auto 1.9 X10*3/uL (1.2-4.9); Mean Corpuscular HGB Conc 31.4 g/dl (31.0-35.0); Mean Corpuscular Hemoglobin 26.8 pg (27.0-33.0); Mean Corpuscular Volume 85.3 fL (80.0-98.0); NRBC Abs Auto 0.000 X10*3/uL (0.0-0.012); NRBC Pct Auto 0.0 /100WBC (0.0-0.2); Platelet Count 577 X10*3/uL (160-400); Red Blood Count 3.73 X10*6/uL (4.20-5.50); White Blood Count 8.0 X10*3/uL (4.8-10.8)
[2025-06-09 11:13] LABS: Anion Gap 13 (12-20); Blood Urea Nitrogen 17 mg/dL (9-16); Calcium 9.4 mg/dL (8.4-10.2); Carbon Dioxide 27 mmol/L (22-29); Chloride 105 mmol/L (96-108); Estimated Glomerular Filt Rate > 60; Iron 40 mcg/dL (30-160); Percent Iron Saturation 15 % (15-50); Potassium 3.8 mmol/L (3.3-5.1); Sodium 141 mmol/L (135-145); Total Iron Binding Capacity 267 mcg/dL (228-428); Unsaturated Iron Binding 227 ug/dL
[2025-06-09 11:15] LABS: Hemoglobin A1C 97.0112 umol/L; Total Hemoglobin (HGBA1C) 2717.8209 umol/L
== END 2025-06-09 08:47 | disposition home or self-care (01) ==
LOC: HO.US 08:46
PROVIDERS: PCP Internal Medicine; Visit Provider Nurse Practitioner Primary Care
DX: M25.561 Pain in right knee (principal); D64.9 Anemia, unspecified
CPT/HCPCS: 36415; 80048; 83036; 83540; 85025; 93971

== ENCOUNTER → 2025-06-09 09:18 | Outpatient (BNV) | payer MEDICAID, SELFPAY | PROVIDERS: PCP Internal Medicine; Visit Provider Radiology Diagnostic Radiology | DX: R22.41 Localized swelling, mass and lump, right lower limb (principal) | CPT/HCPCS: 93971 ==

== ENCOUNTER 2025-07-06 12:14 | Outpatient (REF) | payer MEDICAID, SELFPAY ==
--- OUTSIDE RECORDS SUMMARY | 2024-02-03 04:40 | XMS_ITS ---
Author Organization [facility] Address [address] [place] [address] Care Team Providers Care Bufferer Name Role Phone Milton Ro MD, Ernie Primary Care Provide Rodrick Rose [phone] REASON FOR VISIT screening Encounters Encounter Location Date Provider Diagnosis [facility] [place] Outpatient [address] [place], [place] [id number] 02/03/2024 Rodrick Millan Plan Of Treatment No Information Progress Notes * ISHMAEL HINOJOSADOB: 3 (60 yo F)Acc No.[id number]:02/03/2024 COLON WITH MAC Patient: ISHMAEL PORTILLO Provider: Dane Millan MD :1965 A ge:58 Y S ex:Female Date:02/03/2024 Address:[address] [place] [address] [id number] Pcp:Ernie bonilla MD Subjective: * Chief Complaints: [...] Date: 02/03/2024 Generated for Printi ng/Faxing/eTransmitting on: 0 07/06/2025 05:10 PM EDT
--- OUTSIDE RECORDS SUMMARY | 2024-03-18 03:30 | XMS_ITS ---
Author Organization [facility] Address [address] [place] [address] Care Team Providers Care Orchard Manager Name Role Phone Milton Ro MD, [facility] Primary Care Provide r Rodrick Juarez Unavailable [phone] REASON FOR VISIT screening Problems Problem Type SNOMED Code ICD Code Onset Dates Problem Status W/U Status Risk Notes Problem Diverticular disease of colon (546458234) Diverticulosis of large intestine without perforation or abscess without bleeding (K57.30) Active confirmed Encounters Encounter Location Date Provider [place] [facility] [place] [address] [place], [place] [id number] 03/18/2024 Rodrick Millan Encounter for scre ening colonoscopy Z12.11 ; Colon polyps K63.5 ; Diverticulosis of large intestine without perforation or abscess without bleeding K57.30 and Internal hemorrhoids K64.8 Assessments Encounter Date Diagnosis (ICD Code) Assessment Notes Treatment Notes Treatment Clinical Notes Section Notes 03/18/2024 Encounter for screening colonoscopy (ICD-10 - Z12.11) 03/18/2024 Colon polyps (ICD-10 - K63.5) 03/18/2024 Diverticulosis of large intestine without perforation or abscess without bleeding (ICD-10 - K57.30) 03/18/2024 Internal hemorrhoids (ICD-10 - K64.8) Plan Of Treatment No Information Progress Notes * ISHMAEL HINOJOSADOB: 3 (60 yo F)Acc No.[id number]:03/18/2024 COLON WITH MAC Patient: Dane SALVADOR ISHMAEL Provider: Dane Millan MD :1965 A ge:58 Y S ex:Female Date:03/18/2024 Address:[address] [place] [address] [place], [id number] Pcp:Ernie bonilla MD Subjective: * Chief Complaints: * 1 . Screening. * Medical History: Objective: * Vitals: Assessment: * Assessment: 1. E ncounter for screening colonoscopy - Z12.11 (Primary) 2 . C olon polyps - K63.5 3 . D iverticulosis of large intestine without perforation or abscess without bleeding - K57.30 4 . I nternal hemorrhoids - K64.8 Plan: * Treatment: * Procedure Codes: 4 5380 COLONOSCOPY AND BIOPSY * * The named appointment provid er may or may not be the originator of this progress note, and it is not deemed complete until electronically signed by the appointment provider. Sign off status: Pending * Provider: Dane Millan MD Date: 0 03/18/2024 Generated for Landon westbrook/Jean-Paul/Demetriusitting on: 0 07/06/2025 05:11 PM EDT
--- OUTSIDE RECORDS SUMMARY | 2025-07-05 12:00 | XMS_ITS | Encounter Summary ---
Author Organization [facility] Address [address] [place] [address] Care Team Providers Care Trust Evaluation Supervisor Name Role Phone Ernie Merritt Primary Care Provider + Reason for Visit * Reason Comments Post-op * Consultation (Routine) - Authorized Specialty Diagnoses / Procedures Referred By Contac t Referred To Contact Neurosurgery Diagnoses Chronic bilateral low back pain with bilateral sciatica 3 month return from 12/14/24 dx arachnoid cyst-T11 epidural lesion Procedures FOLLOW UP Ernie Merritt [address] [place] [address] Phone: tel: fax: Christopher Peres MD [address] [place] [address] Phone: tel: fax: Referral ID Status Reason Start Date Expiration Date V isits Requested Visits Authorized [id number] Authorized 03/14/2025 09/13/2026 6 6 Encounter Details Date Type Department Care Team (Late st Contact Info) Description 07/05/2025 12:00 PM EDT Follow-Up [facility] [address] [place] [address] Christopher Peres MD [address] [place] [address] S/P fusion of thoracic spine (Primary Dx) Social History Tobacco Use Types [...] Sign Reading Time Taken Comments Blood Pressure 132/74 07/05/2025 11:46 AM EDT Pulse 61 07/05/2025 11:46 AM EDT Temperature 36.9 C (98.4 F) 07/05/2025 11:46 AM EDT Respiratory Rate - - Oxygen Saturation 98% 07/05/2025 11:46 AM EDT Inhaled Oxygen Concentration - - Weight - - Height - - Body Mass Index - - documented in this encounter Progress Notes * Christopher Peres MD - 07/05/2025 12:26 PM EDT CLINIC FOLLOW UP NOTE Subjective Miguelina Julien is a very pleasant 60-year-old female who on 05/12/2025 underwent L4 PSO with T10 to pelvis fusion for iatrogenic deformity correction. Postoperatively did quite well and her pain is significantly improved. Unfortunately she does have a right L4 radiculopathy which we are monitoring inna kristi. I do think this is likely related to nerve irritation. She is otherwise now able to ambulate whereas she was unable to do so prior. X-rays today without change in hardware location or alignmentno hardware related complications. Review of Systems: Negative except per above Objective PHYSICAL EXAM: General: Awake, Alert, Oriented, Fluent BUE 5/5 BLE 5/5 SILT IMAGING /OTHER STUDIES: I have personally reviewed the patient's imaging results X-rays today without change in hardware location or alignment no hardware related complications. Assessment & Plan Miguelina Julien is a very pleasant 60-year-old female who on 05/12/2025 underwent L4 PSO with T10 to pelvis fusion for iatrogenic deformity correction. Postoperatively has had significant improvement inher preoperative pain but unfortunately did develop a right L4 radiculopathy which we are very closely monitoring. I did give her a prescription for duloxetine to start today. I told her that I wouldlike to see her in early August (at approximately the 3-month iris) and if she is still having this pain we will refer her for pain management. I also discussed with her weaning of the brace. She and her are in understanding and agreement with this plan. I spent a total of 26 minutes on the date of encounter, which included: ?? Preparing to see the patient (e.g., review of test results) ?? Obtaining and/or reviewing separately obtained history ?? Performing a medically appropriate exam and/or evaluation ?? Counseling and educating the patient/family/caregiver ?? Ordering medications, tests, procedures ?? Documenting clinical information in the health record Christopher Peres MD documented in this encounter Plan of Treatment Upcoming Encounters Date Type Department Care Team (Late st Contact Info) Description 08/16/2025 1:15 PM EST Follow-Up [facility] [address] [place] [address] Christopher Peres MD [address] [place] [address] documented as of this encounter Visit Diagnoses Diagnosis S/P fusion of thoracic spine- Primary documented in this encounter Care Teams Trust Evaluation Supervisor Relationship Specialty Start Date End Date Ernie Merritt [address] [place] [address] PCP - General Internal Medicine 11/29/24 documented as of this encounter
--- NOTE | ~2025-07-06 | XR_ITS ---
EXAMINATION: XR SHOULDER, RIGHT CLINICAL INFORMATION: right shoulder pain COMPARISON: March 18, 2025 TECHNIQUE: Three views of the right shoulder. FINDINGS: Moderate marginal osteophytes are present involving the humeral head and glenoid. There is no dislocation. No fractures identified. The AC joint demonstrates minimal degenerative change. XR/XR shoulder RT min 2V IMPRESSION: Mild to moderate degenerative changes in the shoulder and minimal degenerative change in the AC joint. Electronically signed by: Preston Bernal MD 07/06/2025 12:46 PM EDT
--- OUTSIDE RECORDS SUMMARY | 2025-07-06 11:15 | XMS_ITS | Encounter Summary ---
Author Organization [employer] Address [address] [facility] 7t [place] [address] Care Team Providers Care Director Public Service Name Role Phone Ernie Noriega MD Primary Care Provide r Encounter Details Date Type Department Care Team ([facility] st Contact Info) Description 07/06/2025 11:15 AM EDT Office Visit [facility] MED[facility]INE [address] [place] [address] Ernie Noriega MD [address] [place] [address] Chronic midline low back pain without sciatica (Primary Dx); Acute pain of right shoulder Social History Tobacco Use Types Packs/Day Years [...] Sign Reading Time Taken Comments Blood Pressure 104/70 07/06/2025 11:20 AM EDT Pulse 74 07/06/2025 11:20 AM EDT Temperature 36 C (96.8 F) 07/06/2025 11:20 AM EDT Respiratory Rate 16 07/06/2025 11:20 AM EDT Oxygen Saturation 97% 07/06/2025 11:20 AM EDT Inhaled Oxygen Concentration - - Weight 69.9 kg (154 lb 3.2 oz) 07/06/2025 11:20 AM EDT Height 160 cm (5' 3 ) 07/06/2025 11:20 AM EDT Body Mass Index 27.32 07/06/2025 11:20 AM EDT documented in this encounter Progress Notes * Ernie Ro MD - 07/06/2025 11:15 AM EDT REBEKAH Julien is a 60 y.o. female who presents for No chief complaint on file.. Pt here for a follow up Back pain has improved but still present Back Pain This is a chronic problem. The problem has been gradually improving since onset. The pain is at a severity of 6/10. The pain is moderate. Pertinent negatives include no abdominal pain, chest pain, fever or headaches. Review of Systems Constitutional: Negative for fever. HENT: Negative for sore throat. Respiratory: Negative for cough and shortness of breath. Cardiovascular: Negative for chest pain. Gastrointestinal: Negative for abdominal pain. Musculoskeletal: Positive for back pain. Neurological: Negative for headaches. Allergies[1] OBJECTIVE Vitals: 07/06/25 1120 BP: 104/70 Pulse: 74 Resp: 16 Temp: 96.8 ??F (36 ??C) TempSrc: Temporal SpO2: 97% Weight: 154 lb 3.2 oz (69.9 kg) Height: 5' 3 (1.6 m) Physical Exam Vitals reviewed. Constitutional: Appearance: Normal appearance. HENT: Head: Normocephalic and atraumatic. Right Ear: External ear normal. Left Ear: External ear normal. Nose: Nose normal. Mouth/Throat: Mouth: Mucous membranes are moist. Eyes: Conjunctiva/sclera: Conjunctivae normal. Cardiovascular: Rate and Rhythm: Normal rate and regular rhythm. Pulmonary: Effort: Pulmonary effort is normal. Breath sounds: Normal breath sounds. Musculoskeletal: Right shoulder: Tenderness present. No swelling or effusion. Decreased range of motion. Right upper arm: No swelling, edema or tenderness. Skin: General: Skin is warm. Neurological: Mental Status: She is alert. Mental status is at baseline. Assessment/Plan Problem List Items Addressed This Visit Chronic low back pain - Primary Pt here for a f/u Patient has a Hx of chronic low back pain, treated in the past at [facility] by Dr Clint Newberry. Hx of AP fusion from L4-sacrum in 2003. She received epidural injections with good results in the past. but that is no longer the case. Pt developed lumbar spinal stenosis and on 01/14/2021 underwent Posterior neural foraminotomy L2-L3byDr. Bailey. Admitted to [facility] from 11/13/2022 until 11/20/2022 due to worsening low back pain with radiation to her right thigh and right leg after an experimental thoracic spinal stimulation procedure at the surgery center [facility] (She was referred there by [facility]). Procedure was aborted after pt experienced [...] the pain clinic. Pt was evaluated at [facility] Pain clinic: 11/08/2024 they did an MRI [...] encroachment seen. Subsequently she was referred to [facility] Neurosurgery, Their assesment was that patient hadsevere [...] care of Dr Christopher Peres Neurosurgeon at [facility] He reviewed her MRI thoracic and lumbar [...] hopes of decreasing her pain. Pt is underwent L4 PSO on 05/12/2025 with T10 to pelvis fusion for iatrogenic deformity correction. Postoperatively has had significant improvement in her preoperative pain but unfortunately did develop a right L4 radiculopathy which Dr Peres is closely monitoring. He gave her a prescription for duloxetine yesterday. And has a f/u in early August with him and if she is still having this pain hewill refer her for pain management. He also discussed with her weaning of the brace. Follow up with me in 3 months Acute pain of right shoulder New onset, since April, patient receiving PT with no goof results On exam decreased ROM right shoulder, Pt has a history of a fall Plan: Plain films continue PT Relevant Orders XR Shoulder 2+ Views Right No future appointments. [1] No Known Allergies documented in this encounter Miscellaneous Notes * Assessment & Plan Note - Ernie Ro MD - 07/06/2025 11:41 AM EDT Associated Problem(s): Acute pain of right shoulder New onset, since April, patient receiving PT with no goof results On exam decreased ROM right shoulder, Pt has a history of a fall Plan: Plain films continue PT * Assessment & Plan Note - Ernie Ro MD - 07/06/2025 11:33 AM EDT Associated Problem(s): Chronic low back pain Pt here for a f/u Patient has a Hx of chronic low back pain, treated in the past at [facility] by Dr Clint Newberry. Hx of AP fusion from L4-sacrum in 2004. She received epidural injections with good results in the past. but that is no longer the case. Pt developed lumbar spinal stenosis and on 01/14/2021 underwent Posterior neural foraminotomy L2-L3livHammad Bailey. Admitted to [facility] from 11/13/2022 until 11/20/2022 due to worsening low back pain with radiation to her right thigh and right leg after an experimental thoracic spinal stimulation procedure at the surgery center [facility] (She was referred there by [facility]). Procedure was aborted after pt experienced [...] the pain clinic. Pt was evaluated at [facility] Pain clinic: 11/08/2024 they did an MRI [...] encroachment seen. Subsequently she was referred to [facility] Neurosurgery, Their assesment was that patient hadsevere [...] care of Dr Christopher Peres Neurosurgeon at [facility] He reviewed her MRI thoracic and lumbar [...] hopes of decreasing her pain. Pt is underwent L4 PSO on 05/12/2025 with T10 to pelvis fusion for iatrogenic deformity correction. Postoperatively has had significant improvement in her preoperative pain but unfortunately did develop a right L4 radiculopathy which Dr Peres is closely monitoring. He gave her a prescription for duloxetine yesterday. And has a f/u in early August with him and if she is still having this pain hewill refer her for pain management. He also discussed with her weaning of the brace. Follow up with me in 3 months documented in this encounter Plan of Treatment Upcoming Encounters Date Type Department Care Team (Late st Contact Info) Description 09/26/2025 3:00 PM EST Office Visit [facility] MEDICINE [address] [place] [address] Ernie Noriega MD [address] [place] [address] documented as of this encounter Procedures Procedure Name Priority Date/Time Associated Diagnosis Comments XR SHOULDER 2+ VIEWS RIGHT Routine 07/06/2025 12:35 PM EDT Acute pain of right shoulder documented in this encounter Results * XR Shoulder 2+ Views Right (07/06/2025 12:35 PM EDT) Anatomical Region Laterality Modality Upper Extremities, Shoulder Right Radi ographic Imaging 07/06/2025 12:3 5 PM EDT Narrative 07/06/2025 12:49 PM EDT [facility] [address] [place] [address] XRay Report Signed Patient: Miguelina Julien MR#: [id number] [birth year] : 1965 Acct:[id number] Age/Sex: 60 / F ADM Date: 07/06/25 Loc: HO.HHX Attending Dr: Ernie Merritt MD Ordering Physician: Ernie Merritt MD Date of Service: 07/06/25 Procedure(s): XR shoulder RT min 2V Accession Number(s): [id number] cc: Ernie Merritt MD Reason for Exam: right shoulder pain EXAMINATION: XR SHOULDER, RIGHT CLINICAL INFORMATION: right shoulder pain COMPARISON: March 18, 2025 TECHNIQUE: Three views of the right shoulder. FINDINGS: Moderate marginal osteophytes are present involving the humeral head and glenoid. There is no dislocation. No fractures identified. The AC joint demonstrates minimal degenerative change. XR/XR shoulder RT min 2V IMPRESSION: Mild to moderate degenerative changes in the shoulder and minimal degenerative change in the AC joint. Electronically signed by: Preston Bernal MD 07/06/2025 12:46 PM EDT RP Dictated By: Preston Bernal MD Signed By: <Electronically signed by Preston Bernal MD in OV> 07/06/25 1246 DD/ 1235 TD/TT: 07/06/25 1235 Astrochemist: Procedure Note Donotuseinterpreter, Image - 07/06/[address] [address] XRay Report Signed Patient: Miguelina JulienMR#: [id number] 12 : 1965Acct:[id number] Age/Sex: 60 / FADM Date: 07/06/25 Loc: HO.HHCX Attending Dr: Ernie Merritt MD Ordering Physician: Ernie Merritt MD Date of Service: 07/06/25 Procedure(s): XR shoulder RT min 2V Accession Number(s): [id number] cc: Ernie Merritt MD Reason for Exam: right shoulder pain EXAMINATION: XR SHOULDER, RIGHT CLINICAL INFORMATION: right shoulder pain COMPARISON: March 18, 2025 TECHNIQUE: Three views of the right shoulder. FINDINGS: Moderate marginal osteophytes are present involving the humeral head and glenoid. There is no dislocation. No fractures identified. The AC joint demonstrates minimal degenerative change. XR/XR shoulder RT min 2V IMPRESSION: Mild to moderate degenerative changes in the shoulder and minimal degenerative change in the AC joint. Electronically signed by: Preston Bernal MD 07/06/2025 12:46 PM EDT RP Dictated By: Preston Bernal MD Signed By: <Electronically signed by Preston Bernal MD in OV> 07/06/25 1246 DD/ 1235 TD/TT: 07/06/25 1235 Astrochemist: us Ernie Ro MD IMG XR PROCEDURES Fin al Result documented in this encounter Visit Diagnoses Diagnosis Chronic midline low back pain without sciatica- Primary Acute pain of right shoulder documented in this encounter Additional Health Concerns Assessment Noted Time PHQ-9 Depression Total Score: 4 01/13/20 25 2:57 PM EDT documented as of this encounter Care Teams Director Public Service Relationship Specialty Start Date End Date Ernie Noriega MD [address] [place] [address] PCP - General Internal Medicine 08/25/19 Elida Juan C 06/07/25 documented as of this encounter
--- OUTSIDE RECORDS SUMMARY | 2025-07-06 17:10 | XMS_ITS | Encounter Summary ---
Author Organization [employer] Address [address] [facility] [address] [place] [address] Care Team Providers Care Natural Gas Engineer Name Role Phone Ernie Noriega MD Primary Care Provide r Reason for Visit * Reason Onset Date Comments Med Refill 06/25/2024 Encounter Details Date Type Department Care Team (Late st Contact Info) Description 06/25/[address] [facility] MEDICINE [address] [place] [address] Ernie Noriega MD [address] [place] [address] Chronic midline low back pain without sciatica; [...] Description 09/26/2025 3:00 PM EST Office Visit [facility] MEDICINE [address] [place] [address] Ernie oNriega MD [address] [place] [address] documented as of this encounter Visit Diagnoses Diagnosis Chronic midline low back pain without sciatica Cervical radiculopathy Brachial neuritis or radiculitis nos documented in this encounter Additional Health Concerns Assessment Noted Time PHQ-9 Depression Total Score: 2 01/21/20 24 1:25 PM EDT documented as of this encounter Care Teams Natural Gas Engineer Relationship Specialty Start Date End Date Ernie Noriega MD [address] [place] [address] PCP - General Internal Medicine 08/25/19 [facility] 03/31/25 05/25/25 [facility] 05/25/25 06/13/25 [facility] 05/25/25 06/19/25 [facility] 06/07/25 documented as of this encounter
--- OUTSIDE RECORDS SUMMARY | 2025-07-06 17:10 | XMS_ITS | Encounter Summary ---
Author Organization [employer] Address [address] [facility] 7t [place] [address] Care Team Providers Care Knock Out Hand Name Role Phone Ernie Noriega MD Primary Care Provide r Reason for Visit * Reason Onset Date Comments Med Refill 08/12/2024 Encounter Details Date Type Department Care Team (Late st Contact Info) Description 08/12/2024 Refill [facility] MED[facility]INE [address] [place] [address] Ilsa Robison, ANP [address] [place] [address] Primary osteoarthritis of knee, unspecified laterality Social [...] Description 09/26/2025 3:00 PM EST Office Visit [facility] [address] [place] [address] Ernie Noriega MD [address] [place] [address] documented as of this encounter Visit Diagnoses Diagnosis Primary osteoarthritis of knee, unspecified laterality documented in this encounter Additional Health Concerns Assessment Noted Time PHQ-9 Depression Total Score: 2 01/21/20 24 1:25 PM EDT documented as of this encounter Care Teams Knock Out Hand Relationship Specialty Start Date End Date Ernie Noriega MD [address] [place] [address] PCP - General Internal Medicine 08/25/19 [facility] 03/31/25 05/25/25 [facility] 05/25/25 06/13/25 [facility] 05/25/25 06/19/25 [facility] 06/07/25 documented as of this encounter
--- OUTSIDE RECORDS SUMMARY | 2025-07-06 17:10 | XMS_ITS | Encounter Summary ---
Author Organization [employer] Address [address] [facility] 7t [place] [address] Care Team Providers Care Power Line Lineman Name Role Phone Ernie Noriega MD Primary Care Provide r Reason for Visit * Reason Onset Date Comments Med Refill 06/26/2025 Encounter Details Date Type Department Care Team ([facility] st Contact Info) Description 06/26/2025 Refill [facility] MEDICINE [address] [place] [address] Ernie Noriega MD [address] [place] [address] Seasonal allergies Social History Tobacco Use Types [...] Description 09/26/2025 3:00 PM EST Office Visit [facility] MEDICINE [address] [place] [address] Ernie Noriega MD [address] [place] [address] documented as of this encounter Visit Diagnoses Diagnosis Seasonal allergies Allergic rhinitis, cause unspecified documented in this encounter Additional Health Concerns Assessment Noted Time PHQ-9 Depression Total Score: 4 01/13/20 25 2:57 PM EDT documented as of this encounter Care Teams Power Line Lineman Relationship Specialty Start Date End Date Ernie Noriega MD [address] [place] [address] PCP - General Internal Medicine 08/25/19 Elida KELLYA 06/07/25 documented as of this encounter
--- OUTSIDE RECORDS SUMMARY | 2025-07-06 17:10 | XMS_ITS | Encounter Summary ---
Author Organization [employer] Address [address] [facility] [address]t [place] [address] Care Team Providers Care Real Estate Agency Licensee Name Role Phone Ernie Noriega MD Primary Care Provide r Reason for Visit * Reason Onset Date Comments Med Refill 11/07/2024 Encounter Details Date Type Department Care Team (Late st Contact Info) Description 11/07/2024 Refill [facility] MEDICINE [address] [place] [address] Ernie Noriega MD [address] [place], [place] [phone] Chronic midline low back pain without sciatica [...] Description 09/26/2025 3:00 PM EST Office Visit [facility] MEDICINE [address] [place] [address] Ernie Noriega MD [address] [place] [address] documented as of this encounter Visit Diagnoses Diagnosis Chronic midline low back pain without sciatica documented in this encounter Additional Health Concerns Assessment Noted Time PHQ-9 Depression Total Score: 2 01/21/20 24 1:25 PM EDT documented as of this encounter Care Teams Real Estate Agency Licensee Relationship Specialty Start Date End Date Ernie Noriega MD [address] [place] [address] PCP - General Internal Medicine 08/25/19 [facility] 03/31/25 05/25/25 [facility] 05/25/25 06/13/25 [facility] 05/25/25 06/19/25 [facility] 06/07/25 documented as of this encounter
--- OUTSIDE RECORDS SUMMARY | 2025-07-06 17:10 | XMS_ITS | Encounter Summary ---
Author Organization [employer] Address [address] [facility] 7t [place] [address] Care Team Providers Care Kiln Operator Helper Name Role Phone Ernie Noriega MD Primary Care Provide r Reason for Visit * Reason Onset Date Comments Med Refill 01/26/2024 Encounter Details Date Type Department Care Team (Late st Contact Info) Description 01/26/[address] [facility]INE [address] [place] [address] Ilsa Robison, ANP [address] [place] [address] Chronic midline low back pain without sciatica; [...] Description 09/26/2025 3:00 PM EST Office Visit [facility] [address] [place] [address] Ernie Noriega MD [address] [place] [address] documented as of this encounter Visit Diagnoses Diagnosis Chronic midline low back pain without sciatica Cervical radiculopathy Brachial neuritis or radiculitis nos documented in this encounter Additional Health Concerns Assessment Noted Time PHQ-9 Depression Total Score: 2 01/21/20 24 1:25 PM EDT documented as of this encounter Care Teams Kiln Operator Helper Relationship Specialty Start Date End Date Ernie Noriega MD [address] [place] [address] PCP - General Internal Medicine 08/25/19 [facility] 03/31/25 05/25/25 [facility] 05/25/25 06/13/25 [facility] 05/25/25 06/19/25 [facility] 06/07/25 documented as of this encounter
--- OUTSIDE RECORDS SUMMARY | 2025-07-06 17:10 | XMS_ITS | Encounter Summary ---
Author Organization [employer] Address [address] [facility] 7t [place] [address] Care Team Providers Care Sorting Machine Attendant Name Role Phone Ernie Noriega MD Primary Care Provide r Reason for Visit * Reason Onset Date Comments Med Refill 03/15/2024 Encounter Details Date Type Department Care Team (Late st Contact Info) Description 03/15/2024 Refill [facility] MED[facility]INE [address] [place] [address] Ofelia Melgar MD [address] [place] [address] Chronic midline low back pain without sciatica; [...] Description 09/26/2025 3:00 PM EST Office Visit [facility] MEDICINE [address] [place] [address] Ernie Noriega MD [address] [place] [address] documented as of this encounter Visit Diagnoses Diagnosis Chronic midline low back pain without sciatica Cervical radiculopathy Brachial neuritis or radiculitis nos documented in this encounter Additional Health Concerns Assessment Noted Time PHQ-9 Depression Total Score: 2 01/21/20 24 1:25 PM EDT documented as of this encounter Care Teams Sorting Machine Attendant Relationship Specialty Start Date End Date Ernie Noriega MD [address] [place] [address] PCP - General Internal Medicine 08/25/19 [facility] 03/31/25 05/25/25 [facility] 05/25/25 06/13/25 [facility] 05/25/25 06/19/25 [facility] 06/07/25 documented as of this encounter
--- OUTSIDE RECORDS SUMMARY | 2025-07-06 17:10 | XMS_ITS | Encounter Summary ---
Author Organization [employer] Address 75 [facility] 7t [place] [address] Care Team Providers Care Certified Ski Patroller Name Role Phone Ernie Noriega MD Primary Care Provide r Reason for Visit * Reason Onset Date Comments Med Refill 03/22/2025 Encounter Details Date Type Department Care Team (Late st Contact Info) Description 03/22/2025 Refill [facility] 230 [place] [address] Ernie Noriega MD 230 [place] [address] Gastritis without bleeding, unspecified chronicity, unspecified gastritis [...] Description 09/26/2025 3:00 PM EST Office Visit [facility] [address] [place] [address] Ernie Noriega MD [address] [place] [address] documented as of this encounter Visit Diagnoses Diagnosis Gastritis without bleeding, unspecified chronicity, unspecified gastritis type Ischial pain, right Pain Generalized pain Chronic midline low back pain without sciatica documented in this encounter Additional Health Concerns Assessment Noted Time PHQ-9 Depression Total Score: 4 01/13/20 2:57 PM EDT documented as of this encounter Care Teams Certified Ski Patroller Relationship Specialty Start Date End Date rEnie Noriega MD [address] [place] [address] PCP - General Internal Medicine 08/25/19 [place] [facility] 03/31/25 05/25/25 [facility] 05/25/25 06/13/25 [facility] 05/25/25 06/19/25 [place] [facility] 06/07/25 documented as of this encounter
--- OUTSIDE RECORDS SUMMARY | 2025-07-06 17:10 | XMS_ITS | Encounter Summary ---
Author Organization [employer] Address 75 [facility] 7t [place] [address] Care Team Providers Care Precision Printing Worker Name Role Phone Ernie Noriega MD Primary Care Provide r Reason for Visit * Reason Onset Date Comments Med Refill 10/17/2024 Encounter Details Date Type Department Care Team (Late st Contact Info) Description 10/17/2024 Refill [facility] 230 [place] [address] Ernie Noriega MD 230 [place] [address] Primary osteoarthritis of knee, unspecified laterality Social [...] Description 09/26/2025 3:00 PM EST Office Visit [facility] 230 [place] [address] Ernie Noriega MD [address] [place] [address] documented as of this encounter Visit Diagnoses Diagnosis Primary osteoarthritis of knee, unspecified laterality documented in this encounter Additional Health Concerns Assessment Noted Time PHQ-9 Depression Total Score: 2 01/21/20 24 1:25 PM EDT documented as of this encounter Care Teams Precision Printing Worker Relationship Specialty Start Date End Date Ernie Noriega MD [address] [place] [address] PCP - General Internal Medicine 08/25/19 [place] [facility] 03/31/25 05/25/25 [facility] 05/25/25 06/13/25 [facility] 05/25/25 06/19/25 [place] [facility] 06/07/25 documented as of this encounter
--- OUTSIDE RECORDS SUMMARY | 2025-07-06 17:10 | XMS_ITS | Encounter Summary ---
Author Organization [employer] Address 75 [facility] 7t [place] [address] Care Team Providers Care Aircraft Engine Assembler Name Role Phone Ernie Noriega MD Primary Care Provide r Reason for Visit * Reason Onset Date Comments Med Refill 08/13/2024 Encounter Details Date Type Department Care Team ([facility] st Contact Info) Description 08/13/2024 Refill [facility] [address] [place] [address] Ernie Noriega MD 230 [place] [address] Seasonal allergies Social History Tobacco Use Types [...] 3:00 PM EST Office Visit [facility] [address] [place] [address] Ernie Noriega MD 230 [place] [address] documented as of this encounter Visit Diagnoses Diagnosis Seasonal allergies Allergic rhinitis, cause unspecified documented in this encounter Additional Health Concerns Assessment Noted Time PHQ-9 Depression Total Score: 2 01/21/20 24 1:25 PM EDT documented as of this encounter Care Teams Aircraft Engine Assembler Relationship Specialty Start Date End Date Ernie Noriega MD [address] [place] [address] PCP - General Internal Medicine 08/25/19 [place] [facility] 03/31/25 05/25/25 [facility] 05/25/25 06/13/25 [facility] 05/25/25 06/19/25 [place] [facility] 06/07/25 documented as of this encounter
--- OUTSIDE RECORDS SUMMARY | 2025-07-06 17:10 | XMS_ITS | Encounter Summary ---
Author Organization [employer] Address 75 [facility] 7t [place] [address] Care Team Providers Care President Sales And Marketing Name Role Phone Ernie Noriega MD Primary Care Provide r Reason for Visit * Reason Onset Date Comments Med Refill 10/25/2024 Encounter Details Date Type Department Care Team (Late st Contact Info) Description 10/25/2024 Refill [facility] 230 [place] [address] Ernie Noriega MD 230 [place] [address] Chronic midline low back pain without sciatica [...] Description 09/26/2025 3:00 PM EST Office Visit [facility]INE 230 [place] [address] Ernie Noriega MD 230 [place] [address] documented as of this encounter Visit Diagnoses Diagnosis Chronic midline low back pain without sciatica documented in this encounter Additional Health Concerns Assessment Noted Time PHQ-9 Depression Total Score: 2 01/21/20 24 1:25 PM EDT documented as of this encounter Care Teams President Sales And Marketing Relationship Specialty Start Date End Date Ernie Noriega MD 230 [place] [address] PCP - General Internal Medicine 08/25/19 [place] [facility] 03/31/25 05/25/25 [facility] 05/25/25 06/13/25 [facility] 05/25/25 06/19/25 [place] [facility] 06/07/25 documented as of this encounter
--- OUTSIDE RECORDS SUMMARY | 2025-07-06 17:10 | XMS_ITS | Encounter Summary ---
Author Organization [employer] Address 75 [facility] 7t [place] [address] Care Team Providers Care Child Attendant Name Role Phone Ernie Noriega MD Primary Care Provide r Reason for Visit * Reason Comments Med Refill Encounter Details Date Type Department Care Team ([facility] st Contact Info) Description 08/10/2023 Refill [facility] 230 [place] [address] Ernie Noriega MD 230 [place] [address] Primary osteoarthritis of knee, unspecified laterality; Chronic [...] Description 09/26/2025 3:00 PM EST Office Visit [facility] [address] [place] [address] Ernie Noriega MD [address] [place] [address] documented as of this encounter Visit Diagnoses Diagnosis Primary osteoarthritis of knee, unspecified laterality Chronic midline low back pain without sciatica Cervical radiculopathy Brachial neuritis or radiculitis nos Pain Generalized pain documented in this encounter Additional Health Concerns Assessment Noted Time PHQ-9 Depression Total Score: 0 12/02/19 23 2:38 PM EST documented as of this encounter Care Teams Child Attendant Relationship Specialty Start Date End Date Ernie Noriega MD [address] [place] [address] PCP - General Internal Medicine 08/25/19 [place] [facility] 03/31/25 05/25/25 [facility] 05/25/25 06/13/25 [facility] 05/25/25 06/19/25 [place] [facility] 06/07/25 documented as of this encounter
--- OUTSIDE RECORDS SUMMARY | 2025-07-06 17:10 | XMS_ITS | Encounter Summary ---
Author Organization [employer] Address 75 [facility] 7t [place] [address] Care Team Providers Care Director Correctional Agency Name Role Phone Ernie Noriega MD Primary Care Provide r Reason for Visit * Reason Onset Date Comments Med Refill 01/10/2025 Encounter Details Date Type Department Care Team (Late st Contact Info) Description 01/10/[address] [facility] MEDICINE [address] [place] [address] Ernie Noriega MD 230 [place] [address] Primary osteoarthritis of knee, unspecified laterality Social [...] difficult at all 01/12/2025 2:57 PM EDT [facility] Priti coronado [place] documented as of this encounter Plan of Treatment Upcoming Encounters Date Type Department Care Team (Late st Contact Info) Description 09/26/2025 3:00 PM EST Office Visit [facility] MEDICINE [address] [place] [address] Ernie Noriega MD [address] [place] [address] documented as of this encounter Visit Diagnoses Diagnosis Primary osteoarthritis of knee, unspecified laterality documented in this encounter Additional Health Concerns Assessment Noted Time PHQ-9 Depression Total Score: 2 01/21/20 24 1:25 PM EDT documented as of this encounter Care Teams Director Correctional Agency Relationship Specialty Start Date End Date Ernie Noriega MD [address] [place] [address] PCP - General Internal Medicine 08/25/19 [place] [facility] 03/31/25 05/25/25 [facility] 05/25/25 06/13/25 [facility] 05/25/25 06/19/25 [place] [facility] 06/07/25 documented as of this encounter
--- OUTSIDE RECORDS SUMMARY | 2025-07-06 17:10 | XMS_ITS | Encounter Summary ---
Author Organization [employer] Address 75 [facility] 7t [place] [address] Care Team Providers Care Bandage Winding Machine Operator Name Role Phone Ernie Noriega MD Primary Care Provide r Reason for Visit * Reason Onset Date Comments Med Refill 04/13/2025 Encounter Details Date Type Department Care Team (Late st Contact Info) Description 04/13/2025 Refill [facility] 230 [place] [address] Ernie Noriega MD 230 [place] [address] Primary osteoarthritis of knee, unspecified laterality Social [...] Description 09/26/2025 3:00 PM EST Office Visit [facility] 230 [place] [address] Ernie Noriega MD 230 [place] [address] documented as of this encounter Visit Diagnoses Diagnosis Primary osteoarthritis of knee, unspecified laterality documented in this encounter Additional Health Concerns Assessment Noted Time PHQ-9 Depression Total Score: 4 01/13/20 25 2:57 PM EDT documented as of this encounter Care Teams Bandage Winding Machine Operator Relationship Specialty Start Date End Date Ernie Noriega MD 230 [place] [address] PCP - General Internal Medicine 08/25/19 [place] [facility] 03/31/25 05/25/25 [facility] 05/25/25 06/13/25 [facility] 05/25/25 06/19/25 [place] [facility] 06/07/25 documented as of this encounter
--- OUTSIDE RECORDS SUMMARY | 2025-07-06 17:10 | XMS_ITS | Encounter Summary ---
Author Organization [employer] Address 75 [facility] 7t [place] [address] Care Team Providers Care Butter Melter Name Role Phone Ernie Noriega MD Primary Care Provide r Reason for Visit * Reason Onset Date Comments Med Refill 06/26/2025 Encounter Details Date Type Department Care Team (Late st Contact Info) Description 06/26/2025 Refill [facility] MED[facility]INE [address] [place] [address] Ernie Noriega MD [address] [place] [address] Chronic midline low back pain without sciatica [...] Description 09/26/2025 3:00 PM EST Office Visit [facility] [address] [place] [address] Ernie Noriega MD 230 [place] [address] documented as of this encounter Visit Diagnoses Diagnosis Chronic midline low back pain without sciatica documented in this encounter Additional Health Concerns Assessment Noted Time PHQ-9 Depression Total Score: 4 01/13/20 25 2:57 PM EDT documented as of this encounter Care Teams Butter Melter Relationship Specialty Start Date End Date Ernie Noriega MD 230 [place] [address] PCP - General Internal Medicine 08/25/19 [place] [facility] 06/07/25 documented as of this encounter
--- OUTSIDE RECORDS SUMMARY | 2025-07-06 17:10 | XMS_ITS | Encounter Summary ---
Author Organization [employer] Address 75 [facility] 7t [place] [address] Care Team Providers Care Voice Over Announcer Name Role Phone Ernie Noriega MD Primary Care Provide r Reason for Visit * Reason Onset Date Comments Med Refill 01/10/2025 Encounter Details Date Type Department Care Team (Late st Contact Info) Description 01/10/2025 Refill [facility]INE 230 [place] [address] Ernie Noriega MD 230 [place] [address] Chronic midline low back pain without sciatica [...] Author Several days 01/12/2025 2:57 PM EDT Priit Campo [place] * Moving or speaking so [...] difficult at all 01/12/2025 2:57 PM EDT [facility] Priti coronado [place] documented as of this encounter Plan of Treatment Upcoming Encounters Date Type Department Care Team (Late st Contact Info) Description 09/26/2025 3:00 PM EST Office Visit [facility]INE [address] [place] [address] Ernie Noriega MD [address] [place] [address] documented as of this encounter Visit Diagnoses Diagnosis Chronic midline low back pain without sciatica documented in this encounter Additional Health Concerns Assessment Noted Time PHQ-9 Depression Total Score: 2 01/21/20 24 1:25 PM EDT documented as of this encounter Care Teams Voice Over Announcer Relationship Specialty Start Date End Date Ernie Noriega MD [address] [place] [address] PCP - General Internal Medicine 08/25/19 [place] [facility] 03/31/25 05/25/25 [facility] 05/25/25 06/13/25 [facility] 05/25/25 06/19/25 [place] [facility] 06/07/25 documented as of this encounter
--- OUTSIDE RECORDS SUMMARY | 2025-07-06 17:10 | XMS_ITS | Encounter Summary ---
Author Organization [employer] Address 75 [facility] 7t [place] [address] Care Team Providers Care Toe Lining Closer Name Role Phone Ernie Noriega MD Primary Care Provide r Reason for Visit * Reason Onset Date Comments Med Refill 04/16/2024 Encounter Details Date Type Department Care Team (Late st Contact Info) Description 04/16/2024 Refill [facility] MEDICINE 230 [place] [address] Ernie Noriega MD 230 [place] [address] Essential hypertension Social History Tobacco Use Types [...] Description 09/26/2025 3:00 PM EST Office Visit [facility] MEDICINE 230 [place] [address] Ernie Noriega MD 230 [place] [address] documented as of this encounter Visit Diagnoses Diagnosis Essential hypertension Unspecified essential hypertension documented in this encounter Additional Health Concerns Assessment Noted Time PHQ-9 Depression Total Score: 2 01/21/20 24 1:25 PM EDT documented as of this encounter Care Teams Toe Lining Closer Relationship Specialty Start Date End Date Ernie Noriega MD 230 [place] [address] PCP - General Internal Medicine 08/25/19 [place] [facility] 03/31/25 05/25/25 [facility] 05/25/25 06/13/25 [facility] 05/25/25 06/19/25 [place] [facility] 06/07/25 documented as of this encounter
--- OUTSIDE RECORDS SUMMARY | 2025-07-06 17:10 | XMS_ITS | Encounter Summary ---
Author Organization [employer] Address 75 [facility] 7t [place] [address] Care Team Providers Care Steeple Jack Name Role Phone Ernie Noriega MD Primary Care Provide r Reason for Visit * Reason Onset Date Comments Med Refill 06/26/2025 Encounter Details Date Type Department Care Team ([facility] st Contact Info) Description 06/26/2025 Refill [facility] MEDICINE 230 [place] [address] Ernie Noriega MD 230 [place] [address] Gastritis without bleeding, unspecified chronicity, unspecified gastritis [...] Description 09/26/2025 3:00 PM EST Office Visit [facility]INE 230 [place] [address] Ernie Noriega MD 230 [place] [address] documented as of this encounter Visit Diagnoses Diagnosis Gastritis without bleeding, unspecified chronicity, unspecified gastritis type documented in this encounter Additional Health Concerns Assessment Noted Time PHQ-9 Depression Total Score: 4 01/13/20 25 2:57 PM EDT documented as of this encounter Care Teams Steeple Jack Relationship Specialty Start Date End Date Ernie Noriega MD 230 [place] [address] PCP - General Internal Medicine 08/25/19 [place] KELLYA 06/07/25 documented as of this encounter
--- OUTSIDE RECORDS SUMMARY | 2025-07-06 17:10 | XMS_ITS | Encounter Summary ---
Author Organization [employer] Address 75 [facility] 7t [place] [address] Care Team Providers Care Adjustment Clerk Name Role Phone Ernie Noriega MD Primary Care Provide r Reason for Visit * Reason Onset Date Comments Med Refill 04/24/2024 Encounter Details Date Type Department Care Team (Late st Contact Info) Description 04/24/2024 Refill [facility] MEDICINE 230 [place] [address] Ernie Noriega MD 230 [place] [address] Essential hypertension Social History Tobacco Use Types [...] Description 09/26/2025 3:00 PM EST Office Visit [facility] MEDICINE 230 [place] [address] Ernie Noriega MD 230 [place] [address] documented as of this encounter Visit Diagnoses Diagnosis Essential hypertension Unspecified essential hypertension documented in this encounter Additional Health Concerns Assessment Noted Time PHQ-9 Depression Total Score: 2 01/21/20 24 1:25 PM EDT documented as of this encounter Care Teams Adjustment Clerk Relationship Specialty Start Date End Date Ernie Noriega MD 230 [place] [address] PCP - General Internal Medicine 08/25/19 [place] [facility] 03/31/25 05/25/25 [facility] 05/25/25 06/13/25 [facility] 05/25/25 06/19/25 [place] [facility] 06/07/25 documented as of this encounter
--- OUTSIDE RECORDS SUMMARY | 2025-07-06 17:10 | XMS_ITS | Encounter Summary ---
Author Organization [employer] Address 75 [facility] 7t [place] [address] Care Team Providers Care Meat Press Operator Name Role Phone Ernie Noriega MD Primary Care Provide r Reason for Visit * Reason Onset Date Comments chart prep 07/05/2025 Encounter Details Date Type Department Care Team ([facility] st Contact Info) Description 07/05/2025 Telephone [facility] MEDICINE [address] [place] [address] Ernie Noriega MD 230 [place] [address] chart prep Social History Tobacco Use Types Packs/Day Years [...] encounter Miscellaneous Notes * Telephone Encounter - Evon Zhao [place] - 07/05/2025 2:52 PM EDT Chart Prep Labs: done Images: done Screenings: HIV screening Vaccines due: Covid Due and Flu Due Referrals: Podiatry Pending appointment on 07/10/25 at 2:30 PM Overdue care gaps: None documented in this encounter Plan of Treatment Upcoming Encounters Date Type Department Care Team (Late st Contact Info) Description 09/26/2025 3:00 PM EST Office Visit [facility] MEDICINE 230 [place] [address] Ernie Noriega MD [address] [place] [address] documented as of this encounter Visit Diagnoses Not on filedocumented in this encounter Additional Health Concerns Assessment Noted Time PHQ-9 Depression Total Score: 4 01/13/20 2:57 PM EDT documented as of this encounter Care Teams Meat Press Operator Relationship Specialty Start Date End Date Ernie Noriega MD 230 [place] [address] PCP - General Internal Medicine 08/25/19 [place] LENZ 06/07/25 documented as of this encounter
--- OUTSIDE RECORDS SUMMARY | 2025-07-06 17:10 | XMS_ITS | Encounter Summary ---
Author Organization [employer] Address 75 [facility] 7t [place] [address] Care Team Providers Care Iron Plastic Bullet Maker Name Role Phone Ernie Noriega MD Primary Care Provide r Encounter Details Date Type Department Care Team (Late st Contact Info) Description 03/09/2025 Orders Only [facility] 230 [place], [place] [phone] ProviderNeville MD Social History Tobacco Use Types [...] EST Office Visit [facility] MEDICINE [address] [place] [address] Ernie Noriega MD [address] [place] [address] documented as of this encounter Procedures Procedure [...] documented as of this encounter Care Teams Iron Plastic Bullet Maker Relationship Specialty Start Date End Date Ernie Noriega MD [address] [place] [address] PCP - General Internal Medicine 08/25/19 [facility] [place] [facility] 03/31/25 05/25/25 [facility] 05/25/25 06/13/25 [facility] 05/25/25 06/19/25 [place] KELLYA 06/07/25 documented as of this encounter
--- OUTSIDE RECORDS SUMMARY | 2025-07-06 17:10 | XMS_ITS | Encounter Summary ---
Author Organization [employer] Address 75 [facility] 7t [place] [address] Care Team Providers Care Cigarette Catcher Name Role Phone Ernie Noriega MD Primary Care Provide r Encounter Details Date Type Department Care Team ([facility] st Contact Info) Description 06/15/2025 Results Follow-Up [facility] MEDICINE 230 [place] [address] Ilsa Robison, ANP [address] [place] [address] US VENOUS DUPLEX LE RT Social History Tobacco Use Types Packs/Day Years [...] as of this encounter Miscellaneous Notes * Result Encounter Note - MITCH Lobo - 06/15/2025 11:35 AM EDT [facility] [place] Julien, Trent ultrasonido sali?? normal, sin co??gulos ni quistes. Si contin??a con dolor o inflamaci??n, por favor, inf??rmenos. Please call our office if you have any questions. Por favor llame a la oficina si tiene preguntas. Take care, Cu??Ilsa ramirez DRUG SAFETY ASSOCIATE documented in this encounter Plan of Treatment Upcoming Encounters Date Type Department Care Team (Late st Contact Info) Description 09/26/2025 3:00 PM EST Office Visit [facility] MEDICINE 230 [place] [address] Ernie Noriega MD [address] [place] [address] documented as of this encounter Visit Diagnoses Not on filedocumented in this encounter Additional Health Concerns Assessment Noted Time PHQ-9 Depression Total Score: 4 01/13/20 25 2:57 PM EDT documented as of this encounter Care Teams Cigarette Catcher Relationship Specialty Start Date End Date Ernie Noriega MD 230 [facility] [place] [address] PCP - General Internal Medicine 08/25/19 [place] [facility] 05/25/25 06/19/25 [place] LENZ 06/07/25 documented as of this encounter
--- OUTSIDE RECORDS SUMMARY | 2025-07-06 17:10 | XMS_ITS | Encounter Summary ---
Author Organization [employer] Address [address] [place] [address] 7t [place] [address] Care Team Providers Care Machine Printer Name Role Phone Ernie Noriega MD Primary Care Provide r Reason for Visit * Reason Onset Date Comments Appointment Request 02/17/2023 Encounter Details Date Type Department Care Team ([facility] st Contact Info) Description 02/17/2023 Telephone [facility] MEDICINE 230 [place] [address] Ernie Noriega MD 230 [place] [address] Appointment Request Social History Tobacco Use Types [...] a colonoscopy due to advise by her labor delivery specialist in [facility] Please contact pt AT [phone] Iranian Speaker documented in this encounter Plan of Treatment Upcoming Encounters Date Type Department Care Team (Late st Contact Info) Description 09/26/2025 3:00 PM EST Office Visit [facility] [place] [address] Ernie Noriega MD 230 [place] [address] documented as of this encounter Visit Diagnoses Not on filedocumented in this encounter Additional Health Concerns Assessment Noted Time PHQ-9 Depression Total Score: 0 12/02/19 23 2:38 PM EST documented as of this encounter Care Teams Machine Printer Relationship Specialty Start Date End Date Ernie Noriega MD [facility] [place] [address] PCP - General Internal Medicine 08/25/19 [place] [facility] 03/31/25 05/25/25 [facility] 05/25/25 06/13/25 [facility] 05/25/25 06/19/25 [place] [facility] 06/07/25 documented as of this encounter
--- OUTSIDE RECORDS SUMMARY | 2025-07-06 17:10 | XMS_ITS | Encounter Summary ---
Author Organization [employer] Address 75 [facility] 7t [place] [address] Care Team Providers Care Sales Support Technician Name Role Phone Ernie Noriega MD Primary Care Provide r Reason for Visit * Reason Comments Med Refill Encounter Details Date Type Department Care Team ([facility] st Contact Info) Description 07/28/2024 Refill [facility] [address] [place] [address] Ernie Noriega MD [address] [place], [place] [phone] Primary osteoarthritis of knee, unspecified laterality Social [...] Description 09/26/2025 3:00 PM EST Office Visit [facility] [address] [place] [address] Ernie Noriega MD [address] [place] [address] documented as of this encounter Visit Diagnoses Diagnosis Primary osteoarthritis of knee, unspecified laterality documented in this encounter Additional Health Concerns Assessment Noted Time PHQ-9 Depression Total Score: 2 01/21/20 24 1:25 PM EDT documented as of this encounter Care Teams Sales Support Technician Relationship Specialty Start Date End Date Ernie Noriega MD [address] [place] [address] PCP - General Internal Medicine 08/25/19 [facility] 03/31/25 05/25/25 [facility] 05/25/25 06/13/25 [facility] 05/25/25 06/19/25 [facility] 06/07/25 documented as of this encounter
--- OUTSIDE RECORDS SUMMARY | 2025-07-06 17:10 | XMS_ITS | Encounter Summary ---
Author Organization [employer] Address 75 [facility] 7t [place] [address] Care Team Providers Care Correctional Substance Abuse Counselor Name Role Phone Ernie Noriega MD Primary Care Provide r Reason for Visit * Reason Onset Date Comments Med Refill 11/01/2024 Encounter Details Date Type Department Care Team ([facility] st Contact Info) Description 11/01/2024 Refill [facility] MED[facility]INE 230 [place] [address] Sugar Mitchell MD 230 [place] [address] Seasonal allergies Social History Tobacco Use Types [...] 3:00 PM EST Office Visit [facility] MEDICINE [address] [place] [address] Ernie Noriega MD 230 [place] [address] documented as of this encounter Visit Diagnoses Diagnosis Seasonal allergies Allergic rhinitis, cause unspecified documented in this encounter Additional Health Concerns Assessment Noted Time PHQ-9 Depression Total Score: 2 01/21/20 24 1:25 PM EDT documented as of this encounter Care Teams Correctional Substance Abuse Counselor Relationship Specialty Start Date End Date Ernie Noriega MD [address] [place] [address] PCP - General Internal Medicine 08/25/19 [facility] 03/31/25 05/25/25 [facility] 05/25/25 06/13/25 [facility] 05/25/25 06/19/25 [facility] 06/07/25 documented as of this encounter
--- OUTSIDE RECORDS SUMMARY | 2025-07-06 17:10 | XMS_ITS | Encounter Summary ---
Author Organization [employer] Address 75 [facility] 7t [place] [address] Care Team Providers Care Public Safety Police Name Role Phone Ernie Noriega MD Primary Care Provide r Reason for Visit * Reason Comments Med Refill Encounter Details Date Type Department Care Team ([facility] Contact Info) Description 07/03/[address] [facility] MEDICINE [address] [place] [address] Ilsa Robison, ANP 230 [place] [address] Constipation, unspecified constipation type Social History Tobacco Use Types Packs/Day [...] 09/26/2025 3:00 PM EST Office Visit [facility] MEDICINE [address] [place] [address] Ernie Noriega MD 230 [place] [address] documented as of this encounter Visit Diagnoses Diagnosis Constipation, unspecified constipation type documented in this encounter Additional Health Concerns Assessment Noted Time PHQ-9 Depression Total Score: 4 01/13/20 25 2:57 PM EDT documented as of this encounter Care Teams Public Safety Police Relationship Specialty Start Date End Date Ernie Noriega MD 230 [place] [address] PCP - General Internal Medicine 08/25/19 [facility] 06/07/25 documented as of this encounter
--- OUTSIDE RECORDS SUMMARY | 2025-07-06 17:10 | XMS_ITS | Encounter Summary ---
Author Organization [employer] Address [address] [place] [address] 7t [place] [address] Care Team Providers Care Ramp Service Man Name Role Phone Ernie Noriega MD Primary Care Provide r Encounter Details Date Type Department Care Team (Late Contact Info) Description 02/18/2023 Abstract [facility] MEDICINE [address] [place] [address] [phone] Ernie Noriega MD [address] [place] [address] [phone] Social History Tobacco Use Types Packs/Day Years [...] Description 09/26/2025 3:00 PM EST Office Visit [facility] MEDICINE [address] [place] [address] [phone] Ernie Noriega MD [address] [place] [address] [phone] documented as of this encounter Procedures Procedure [...] documented as of this encounter Care Teams Ramp Service Man Relationship Specialty Start Date End Date Ernie Noriega MD [address] [place] [address] PCP - General Internal Medicine 08/25/19 [facility] 03/31/25 05/25/25 [facility] 05/25/25 06/13/25 [facility] 05/25/25 06/19/25 [facility] 06/07/25 documented as of this encounter
--- OUTSIDE RECORDS SUMMARY | 2025-07-06 17:10 | XMS_ITS | Encounter Summary ---
Author Organization [employer] Address 75 [facility] 7t [place] [address] Care Team Providers Care Elevator Runner Name Role Phone Ernie Noriega MD Primary Care Provide r Reason for Visit * Reason Onset Date Comments Referral 04/18/2025 Encounter Details Date Type Department Care Team ([facility] st Contact Info) Description 04/18/2025 Telephone [facility] MEDICINE 230 [place] [address] Ernie Noriega MD 230 [place] [address] Referral Social History Tobacco Use Types Packs/Day [...] would like to change Podiatry location from [facility] to [facility] Podiatry: [facility] Blankenship[facility] [place] [address]. If any questions you can contact pt at [phone] documented in this encounter Plan of Treatment Upcoming Encounters Date Type Department Care Team ([facility] st Contact Info) Description 09/26/2025 3:00 PM EST Office Visit [facility] MEDICINE 230 [place] [address] Ernie Noriega MD [address] [place] [address] documented as of this encounter Visit Diagnoses Not on filedocumented in this encounter Additional Health Concerns Assessment Noted Time PHQ-9 Depression Total Score: 4 01/13/20 25 2:57 PM EDT documented as of this encounter Care Teams Elevator Runner Relationship Specialty Start Date End Date Ernie Noriega MD [address] [place] [address] PCP - General Internal Medicine 08/25/19 [facility] 03/31/25 05/25/25 [facility] 05/25/25 06/13/25 [facility] 05/25/25 06/19/25 [facility] 06/07/25 documented as of this encounter
--- OUTSIDE RECORDS SUMMARY | 2025-07-06 17:10 | XMS_ITS | Encounter Summary ---
Author Organization [employer] Address 75 [facility] 7t [place] [address] Care Team Providers Care Respiratory Assistant Name Role Phone Ernie Noriega MD Primary Care Provide r Reason for Visit * Reason Comments Care Coordination VNA Agencies Encounter Details Date Type Department Care Team (Latest Contact Info) Description 06/16/2025 Patient Outreach [facility] MEDICINE 230 [place] [address] Ernie Noriega MD [address] [place] [address] Care Coordination (VNA Agencies) Social History Tobacco Use Types Packs/Day Years [...] as of this encounter Progress Notes * Demetria Hoyt RN - 06/16/2025 11:15 AM EDT Received orders from duplicate VNA agencies. Received Plan of Care for [facility] with certification period 05/25/25-07/23/25, as well as [facility] or [facility] certification period 06/07/25-08/05/25. Orders can not be signed for duplicative services. Please confirm if the patient is being actively seen by both agencies. If patient is active with both agencies, please discharge from one agency immediately and update the Care team. * Catalina West RN - 06/16/2025 11:15 AM EDT TC placed to the pt with [facility] staff interpreter #[phone] in regards to inquiring if they are actively receiving VNA services from [facility] and [facility]. Pt states that they are actively being seen by the [facility] for physical therapy of the shoulder. RN called the [facility] to confirm this information and a detailed VM was left to call back the office. Will update the care team when information isknown. * Demetria Hoyt RN - 06/16/2025 11:15 AM EDT Received home care order from [facility] today, 06/20/25. [facility] agency sent notification that the agency is closing and patient is being discharged. Will send orders for [facility] and [facility] out to PCP for signature and will update the care team. * Catalina West RN - 06/16/2025 11:15 AM EDT Message from care team noted regarding pt VNA. Pt chart will be updated as needed. * Peg Peoples RN - 06/16/2025 11:15 AM EDT Pt transitions to [facility] as seen in media documented in this encounter Plan of Treatment Upcoming Encounters Date Type Department Care Team (Late st Contact Info) Description 09/26/2025 3:00 PM EST Office Visit [facility] MEDICINE [address] [place] [address] Ernie Noriega MD [address] [place] [address] documented as of this encounter Visit Diagnoses Not on filedocumented in this encounter Additional Health Concerns Assessment Noted Time PHQ-9 Depression Total Score: 4 01/13/20 25 2:57 PM EDT documented as of this encounter Care Teams Respiratory Assistant Relationship Specialty Start Date End Date Ernie Noriega MD [address] [place] [address] PCP - General Internal Medicine 08/25/19 [facility] 05/25/25 06/19/25 [facility] 06/07/25 documented as of this encounter
--- OUTSIDE RECORDS SUMMARY | 2025-07-06 17:10 | XMS_ITS | Encounter Summary ---
Author Organization [employer] Address [address] [facility] 7t [place] [address] Care Team Providers Care Nurse Examiner Name Role Phone Ernie Noriega MD Primary Care Provide r Encounter Details Date Type Department Care Team (Late Contact Info) Description 04/13/2023 Orders Only [facility] MEDICINE [address] [place] [address] [phone] Sugar Mitchell MD [address] [place] [address] [phone] Neuropathic pain of right lower extremity (Primary [...] Description 09/26/2025 3:00 PM EST Office Visit [facility] MEDICINE [address] [place] [address] [phone] Ernie Noriega MD [address] [place] [address] documented as of this encounter Procedures Procedure [...] 1.210.Chronic Kidney Disease: Estimated GFR < 60 mL/min/1.99o4Xolfjt Kidney Disease: Estimated GFR < 15 mL/min/1.73m2 Glucose 151(H) 60 - 115 mg/dL [facility] Calcium 9.3 8.4 - 10.2 mg/dL [facility] Blood Venous blood specimen / Unknown 05/13/2023 8:40 AM EDT 05/13/2023 11:14 AM EDT us Sugar Mitchell MD LAB BLOOD ORDERABLES Final Resul t [facility] [address] [place] [address] [phone] documented in this encounter Visit Diagnoses Diagnosis Neuropathic pain of right lower extremity- Primary documented in this encounter Additional Health Concerns Assessment Noted Time PHQ-9 Depression Total Score: 0 12/02/19 23 2:38 PM EST documented as of this encounter Care Teams Nurse Examiner Relationship Specialty Start Date End Date Ernie Noriega MD 230 [facility] [place] [address] PCP - General Internal Medicine 08/25/19 [facility] 03/31/25 05/25/25 [facility] 05/25/25 06/13/25 [facility] 05/25/25 06/19/25 [facility] 06/07/25 documented as of this encounter
--- OUTSIDE RECORDS SUMMARY | 2025-07-06 17:10 | XMS_ITS | Encounter Summary ---
Author Organization [employer] Address 75 [facility] 7t [place] [address] Care Team Providers Care Printed Circuit Board Panels Trimmer Name Role Phone Ernie Noriega MD Primary Care Provide r Reason for Visit * Reason Comments Med Refill Encounter Details Date Type Department Care Team ([facility] Contact Info) Description 04/11/2025 Refill [facility] MEDICINE [address] [place] [address] Ofelia Melgar MD [address] [place] [address] Social History Tobacco Use Types Packs/Day Years [...] EST Office Visit [facility] MEDICINE [address] [place] [address] Ernie Noriega MD [address] [place] [address] documented as of this encounter Visit Diagnoses Not on filedocumented in this encounter Additional Health Concerns Assessment Noted Time PHQ-9 Depression Total Score: 4 01/13/20 25 2:57 PM EDT documented as of this encounter Care Teams Printed Circuit Board Panels Trimmer Relationship Specialty Start Date End Date Ernie Noriega MD 230 [place] [address] PCP - General Internal Medicine 08/25/19 [facility] 03/31/25 05/25/25 [facility] 05/25/25 06/13/25 [facility] 05/25/25 06/19/25 [facility] 06/07/25 documented as of this encounter
--- OUTSIDE RECORDS SUMMARY | 2025-07-06 17:11 | XMS_ITS | Encounter Summary ---
Author Organization [employer] Address [address] [facility] 7t [place] [address] Care Team Providers Care 4 H Youth Development Specialist Name Role Phone Ernie Noriega MD Primary Care Provide r Reason for Visit * Reason Onset Date Comments Med Refill 09/28/2024 Encounter Details Date Type Department Care Team (Late st Contact Info) Description 09/28/2024 Refill [facility] [address] [place] [address] Ernie Noriega MD 230 [place] [address] Chronic midline low back pain without sciatica; [...] Description 09/26/2025 3:00 PM EST Office Visit [facility] [address] [place] [address] Ernie Noriega MD [address] [place] [address] documented as of this encounter Visit Diagnoses Diagnosis Chronic midline low back pain without sciatica Cervical radiculopathy Brachial neuritis or radiculitis nos documented in this encounter Additional Health Concerns Assessment Noted Time PHQ-9 Depression Total Score: 2 01/21/20 24 1:25 PM EDT documented as of this encounter Care Teams 4 H Youth Development Specialist Relationship Specialty Start Date End Date Ernie Noriega MD 230 [place] [address] PCP - General Internal Medicine 08/25/19 [facility] 03/31/25 05/25/25 [facility] 05/25/25 06/13/25 [facility] 05/25/25 06/19/25 [facility] 06/07/25 documented as of this encounter
--- OUTSIDE RECORDS SUMMARY | 2025-07-06 17:11 | XMS_ITS | Encounter Summary ---
Author Organization [employer] Address 75 [facility] 7t [place] [address] Care Team Providers Care Window Trimmer Name Role Phone Ernie Noriega MD Primary Care Provide r Reason for Visit * Reason Onset Date Comments Med Refill 10/27/2023 Encounter Details Date Type Department Care Team (Late st Contact Info) Description 10/27/2023 Refill [facility] 230 [place] [address] Perlita Woody MD [address] [place] [address] Primary hypertension Social History Tobacco Use Types [...] 3:00 PM EST Office Visit [facility] MEDICINE [address] [place] [address] Ernie Noriega MD [address] [place] [address] documented as of this encounter Visit Diagnoses Diagnosis Primary hypertension Unspecified essential hypertension documented in this encounter Additional Health Concerns Assessment Noted Time PHQ-9 Depression Total Score: 0 12/02/19 23 2:38 PM EST documented as of this encounter Care Teams Window Trimmer Relationship Specialty Start Date End Date Ernie Noriega MD [address] [place] [address] PCP - General Internal Medicine 08/25/19 [facility] 03/31/25 05/25/25 [facility] 05/25/25 06/13/25 [facility] 05/25/25 06/19/25 [facility] 06/07/25 documented as of this encounter
--- OUTSIDE RECORDS SUMMARY | 2025-07-06 17:11 | XMS_ITS | Encounter Summary ---
Author Organization [employer] [facility] Address [address] [place] [address] 7t [place] [address] Care Team Providers Care Train Operations Manager Name Role Phone Ernie Noriega MD Primary Care Provide r Encounter Details Date Type Department Care Team (Latest Contact Info) Description 03/07/2021 Abstract [facility] CON[facility] Dental, Provider, DDS Social History [...] Description 09/26/2025 3:00 PM EST Office Visit [facility] MEDICINE 230 [place] [address] Ernie Noriega MD 230 [place] [address] documented as of this encounter Visit Diagnoses Not on filedocumented in this encounter Care Teams Train Operations Manager Relationship Specialty Start Date End Date Ernie Noriega MD [address] [place] [address] PCP - General Internal Medicine 08/25/19 [facility] 03/31/25 05/25/25 [facility] 05/25/25 06/13/25 [facility] 05/25/25 06/19/25 [facility] 06/07/25 documented as of this encounter
--- OUTSIDE RECORDS SUMMARY | 2025-07-06 17:11 | XMS_ITS | Encounter Summary ---
Author Organization [employer] Address [address] [facility] 7t [place] [address] Care Team Providers Care Cleaner Assistant Name Role Phone Ernie Noriega MD Primary Care Provide r Reason for Visit * Reason Onset Date Comments Med Refill 01/31/2025 Encounter Details Date Type Department Care Team ([facility] st Contact Info) Description 01/31/2025 Refill [facility] MEDICINE 230 [place] [address] Ernie Noriega MD 230 [place] [address] Pain Social History Tobacco Use Types Packs/Day [...] Description 09/26/2025 3:00 PM EST Office Visit [facility] MEDICINE [address] [place] [address] Ernie Noriega MD [address] [place] [address] documented as of this encounter Visit Diagnoses Diagnosis Pain Generalized pain documented in this encounter Additional Health Concerns Assessment Noted Time PHQ-9 Depression Total Score: 4 01/13/20 25 2:57 PM EDT documented as of this encounter Care Teams Cleaner Assistant Relationship Specialty Start Date End Date Ernie Noriega MD 230 [place] [address] PCP - General Internal Medicine 08/25/19 [facility] 03/31/25 05/25/25 [facility] 05/25/25 06/13/25 [facility] 05/25/25 06/19/25 [facility] 06/07/25 documented as of this encounter
--- OUTSIDE RECORDS SUMMARY | 2025-07-06 17:11 | XMS_ITS | Encounter Summary ---
Author Organization [employer] Address 75 [facility] 7t [place] [address] Care Team Providers Care Commercial Property Manager Name Role Phone Ernie Noriega MD Primary Care Provide r Reason for Visit * Reason Comments Med Refill Encounter Details Date Type Department Care Team ([facility] st Contact Info) Description 08/28/2023 Refill [facility] [address] [place] [address] Perlita Woody MD [address] [place] [address] Primary hypertension Social History Tobacco Use Types [...] Visit [facility] MEDICINE [address] [place] [address] Ernie Noriega MD [address] [place] [address] documented as of this encounter Visit Diagnoses Diagnosis Primary hypertension Unspecified essential hypertension documented in this encounter Additional Health Concerns Assessment Noted Time PHQ-9 Depression Total Score: 0 12/02/19 23 2:38 PM EST documented as of this encounter Care Teams Commercial Property Manager Relationship Specialty Start Date End Date Ernie Noriega MD [address] [place] [address] PCP - General Internal Medicine 08/25/19 [facility] 03/31/25 05/25/25 [facility] 05/25/25 06/13/25 [facility] 05/25/25 06/19/25 [facility] 06/07/25 documented as of this encounter
--- OUTSIDE RECORDS SUMMARY | 2025-07-06 17:11 | XMS_ITS | Encounter Summary ---
Author Organization [employer] Address 75 [facility] 7t [place] [address] Care Team Providers Care Orthotic/Prosthetic Practitioner Name Role Phone Ernie Noriega MD Primary Care Provide r Reason for Visit * Reason Onset Date Comments Med Refill 10/13/2024 Encounter Details Date Type Department Care Team (Late st Contact Info) Description 10/13/2024 Refill [facility] MEDICINE [address] [place] [address] Ernie oNriega MD 230 [place], [place] [phone] Chronic midline low back pain without sciatica [...] 09/26/2025 3:00 PM EST Office Visit [facility] MEDICINE [address] [place] [address] Ernie Noriega MD [address] [place] [address] documented as of this encounter Visit Diagnoses Diagnosis Chronic midline low back pain without sciatica documented in this encounter Additional Health Concerns Assessment Noted Time PHQ-9 Depression Total Score: 2 01/21/20 24 1:25 PM EDT documented as of this encounter Care Teams Orthotic/Prosthetic Practitioner Relationship Specialty Start Date End Date Ernie Noriega MD [address] [place] [address] PCP - General Internal Medicine 08/25/19 [facility] 03/31/25 05/25/25 [facility] 05/25/25 06/13/25 [facility] 05/25/25 06/19/25 [facility] 06/07/25 documented as of this encounter
--- OUTSIDE RECORDS SUMMARY | 2025-07-06 17:11 | XMS_ITS | Encounter Summary ---
Author Organization [employer] Address 75 [facility] 7t [place] [address] Care Team Providers Care Productivity Engineer Name Role Phone Ernie Noriega MD Primary Care Provide r Reason for Visit * Reason Comments Med Refill Encounter Details Date Type Department Care Team ([facility] st Contact Info) Description 08/26/2023 Refill [facility] [address] [place] [address] Perlita Woody MD [address] [place] [address] Seasonal allergies Social History Tobacco Use Types [...] Description 09/26/2025 3:00 PM EST Office Visit [facility] MEDICINE [address] [place] [address] Ernie Noriega MD [address] [place] [address] documented as of this encounter Visit Diagnoses Diagnosis Seasonal allergies Allergic rhinitis, cause unspecified documented in this encounter Additional Health Concerns Assessment Noted Time PHQ-9 Depression Total Score: 0 12/02/19 23 2:38 PM EST documented as of this encounter Care Teams Productivity Engineer Relationship Specialty Start Date End Date Ernie Noriega MD [address] [place] [address] PCP - General Internal Medicine 08/25/19 [facility] 03/31/25 05/25/25 [facility] 05/25/25 06/13/25 [facility] 05/25/25 06/19/25 [facility] 06/07/25 documented as of this encounter
--- OUTSIDE RECORDS SUMMARY | 2025-07-06 17:11 | XMS_ITS | Encounter Summary ---
Author Organization [employer] Address 75 [facility] 7t [place] [address] Care Team Providers Care Electrical Engineering Draftsperson Name Role Phone Ernie Noriega MD Primary Care Provide r Reason for Visit * Reason Onset Date Comments Med Refill 10/27/2023 Encounter Details Date Type Department Care Team ([facility] st Contact Info) Description 10/27/2023 Refill [facility] [address] [place] [address] Ernie Noriega MD [address] [place] [address] Seasonal allergies; Pain Social History Tobacco Use [...] Description 09/26/2025 3:00 PM EST Office Visit [facility] MEDICINE [address] [place] [address] Ernie Noriega MD [address] [place] [address] documented as of this encounter Visit Diagnoses Diagnosis Seasonal allergies Allergic rhinitis, cause unspecified Pain Generalized pain documented in this encounter Additional Health Concerns Assessment Noted Time PHQ-9 Depression Total Score: 0 12/02/19 23 2:38 PM EST documented as of this encounter Care Teams Electrical Engineering Draftsperson Relationship Specialty Start Date End Date Ernie Noriega MD [address] [place] [address] PCP - General Internal Medicine 08/25/19 [facility] 03/31/25 05/25/25 [facility] 05/25/25 06/13/25 [facility] 05/25/25 06/19/25 [facility] 06/07/25 documented as of this encounter
--- OUTSIDE RECORDS SUMMARY | 2025-07-06 17:11 | XMS_ITS | Encounter Summary ---
Author Organization [employer] Address [address] [facility] 7t [place] [address] Care Team Providers Care Direct Customer Service Representative Name Role Phone Ernie Noriega MD Primary Care Provide r Reason for Visit * Reason Onset Date Comments Med Refill 09/28/2024 Encounter Details Date Type Department Care Team (Late st Contact Info) Description 09/28/2024 Refill [facility] MEDICINE [address] [place] [address] Ernie Noriega MD [address] [place] [address] Primary osteoarthritis of knee, unspecified laterality Social [...] Description 09/26/2025 3:00 PM EST Office Visit [facility] MEDICINE [address] [place] [address] Ernie Noriega MD [address] [place] [address] documented as of this encounter Visit Diagnoses Diagnosis Primary osteoarthritis of knee, unspecified laterality documented in this encounter Additional Health Concerns Assessment Noted Time PHQ-9 Depression Total Score: 2 01/21/20 24 1:25 PM EDT documented as of this encounter Care Teams Direct Customer Service Representative Relationship Specialty Start Date End Date Ernie Noriega MD [address] [place] [address] PCP - General Internal Medicine 08/25/19 [facility] 03/31/25 05/25/25 [facility] 05/25/25 06/13/25 [facility] 05/25/25 06/19/25 [facility] 06/07/25 documented as of this encounter
--- OUTSIDE RECORDS SUMMARY | 2025-07-06 17:11 | XMS_ITS | Encounter Summary ---
Author Organization [employer] Address 75 [facility] 7t [place] [address] Care Team Providers Care Dry Cell Sealer Name Role Phone Ernie Noriega MD Primary Care Provide r Reason for Visit * Reason Onset Date Comments Med Refill 08/17/2023 Encounter Details Date Type Department Care Team ([facility] st Contact Info) Description 08/17/2023 Telephone [facility] MEDICINE [address] [place] [address] Ernie Noriega MD [address] [place], [place] [phone] Med Refill Social History Tobacco Use Types [...] (Ultram) 50 MG tablet Please sent to [facility]/pharmacy #[id number] - [place], [place] - [address] [place] [address] documented in this encounter Plan of Treatment Upcoming Encounters Date Type Department Care Team (Late st Contact Info) Description 09/26/2025 3:00 PM EST Office Visit [facility] MED[facility]INE [address] [place] [address] Ernie Noriega MD [address] [place] [address] documented as of this encounter Visit Diagnoses Not on filedocumented in this encounter Additional Health Concerns Assessment Noted Time PHQ-9 Depression Total Score: 0 12/02/19 23 2:38 PM EST documented as of this encounter Care Teams Dry Cell Sealer Relationship Specialty Start Date End Date Ernie Noriega MD [address] [place], [place] [phone] PCP - General Internal Medicine 08/25/19 [facility] 03/31/25 05/25/25 [facility] 05/25/25 06/13/25 [facility] 05/25/25 06/19/25 [facility] 06/07/25 documented as of this encounter
--- OUTSIDE RECORDS SUMMARY | 2025-07-06 17:11 | XMS_ITS | Encounter Summary ---
Author Organization [employer] Address 75 [facility] 7t [place] [address] Care Team Providers Care Cost Control Analyst Name Role Phone Ernie Noriega MD Primary Care Provide r Reason for Visit * Reason Onset Date Comments Med Refill 10/25/2023 Encounter Details Date Type Department Care Team ([facility] st Contact Info) Description 10/25/2023 Refill [facility] MEDICINE [address] [place] [address] Ernie Noriega MD [address] [place] [address] Social History Tobacco Use Types Packs/Day Years [...] 3:00 PM EST Office Visit [facility] MEDICINE [address] [place] [address] Ernie Noriega MD [address] [place] [address] documented as of this encounter Visit Diagnoses Not on filedocumented in this encounter Additional Health Concerns Assessment Noted Time PHQ-9 Depression Total Score: 0 12/02/19 23 2:38 PM EST documented as of this encounter Care Teams Cost Control Analyst Relationship Specialty Start Date End Date Ernie Noriega MD [address] [place] [address] PCP - General Internal Medicine 08/25/19 [facility] 03/31/25 05/25/25 [facility] 05/25/25 06/13/25 [facility] 05/25/25 06/19/25 [facility] 06/07/25 documented as of this encounter
--- OUTSIDE RECORDS SUMMARY | 2025-07-06 17:11 | XMS_ITS | Encounter Summary ---
Author Organization [employer] Address [address] [facility] [address] 7t [place] [address] Care Team Providers Care Terra Cotta Setter Name Role Phone Ernie Noriega MD Primary Care Provide r Encounter Details Date Type Department Care Team (Latest Contact Info) Description 07/06/2025 Travel Social History Tobacco Use Types Packs/Day [...] 09/26/2025 3:00 PM EST Office Visit [facility] MEDICINE [address] [place] [address] Ernie Noriega MD [address] [place] [address] documented as of this encounter Visit Diagnoses Not on filedocumented in this encounter Additional Health Concerns Assessment Noted Time PHQ-9 Depression Total Score: 4 01/13/20 25 2:57 PM EDT documented as of this encounter Care Teams Terra Cotta Setter Relationship Specialty Start Date End Date Ernie Noriega MD [address] [place] [address] PCP - General Internal Medicine 08/25/19 [facility] KELLYA 06/07/25 documented as of this encounter
--- OUTSIDE RECORDS SUMMARY | 2025-07-06 17:11 | XMS_ITS | Encounter Summary ---
Author Organization [employer] Address [address] [facility] 7t [place] [address] Care Team Providers Care Land Appraiser Name Role Phone Ernie Noriega MD Primary Care Provide r Reason for Visit * Reason Onset Date Comments Med Refill 11/03/2023 Encounter Details Date Type Department Care Team ([facility] st Contact Info) Description 11/03/2023 Refill [facility] [address] [place] [address] Ernie Noriega MD [address] [place] [address] Seasonal allergies Social History Tobacco Use Types [...] 3:00 PM EST Office Visit [facility] MEDICINE [address] [place] [address] Ernie Noriega MD [address] [place] [address] documented as of this encounter Visit Diagnoses Diagnosis Seasonal allergies Allergic rhinitis, cause unspecified documented in this encounter Additional Health Concerns Assessment Noted Time PHQ-9 Depression Total Score: 0 12/02/19 23 2:38 PM EST documented as of this encounter Care Teams Land Appraiser Relationship Specialty Start Date End Date Ernie Noriega MD [address] [place] [address] PCP - General Internal Medicine 08/25/19 [facility] 03/31/25 05/25/25 [facility] 05/25/25 06/13/25 [facility] 05/25/25 06/19/25 [facility] 06/07/25 documented as of this encounter
--- OUTSIDE RECORDS SUMMARY | 2025-07-06 17:11 | XMS_ITS | Encounter Summary ---
Author Organization [facility] Address [address] [place] [address] 7t [place] [address] Care Team Providers Care Client Service And Consulting Manager Name Role Phone Ernie Noriega MD Primary Care Provide r Encounter Details Date Type Department Care Team (Latest Contact Info) Description 06/19/2022 Abstract [facility] CONVERSIONS Dental, Provider, DDS Social [...] 3:00 PM EST Office Visit [facility] MEDICINE 230 [place] [address] Ernie Noriega MD [address] [place] [address] documented as of this encounter Visit Diagnoses Not on filedocumented in this encounter Care Teams Client Service And Consulting Manager Relationship Specialty Start Date End Date Ernie Noriega MD [address] [place] [address] PCP - General Internal Medicine 08/25/19 [facility] 03/31/25 05/25/25 [facility] 05/25/25 06/13/25 [facility] 05/25/25 06/19/25 [facility] 06/07/25 documented as of this encounter
--- OUTSIDE RECORDS SUMMARY | 2025-07-06 17:11 | XMS_ITS | Encounter Summary ---
Author Organization [employer] Address 75 [facility] 7t [place] [address] Care Team Providers Care Right Of Way Man Name Role Phone Ernie Noriega MD Primary Care Provide r Reason for Visit * Reason Onset Date Comments Med Refill 11/17/2024 Encounter Details Date Type Department Care Team ([facility] st Contact Info) Description 11/17/2024 Refill [facility] MEDICINE 230 [place] [address] Ernie Noriega MD 230 [place] [address] Seasonal allergies Social History Tobacco Use Types [...] 3:00 PM EST Office Visit [facility] MEDICINE 230 [place] [address] Ernie Noriega MD [address] [place] [address] documented as of this encounter Visit Diagnoses Diagnosis Seasonal allergies Allergic rhinitis, cause unspecified documented in this encounter Additional Health Concerns Assessment Noted Time PHQ-9 Depression Total Score: 2 01/21/20 24 1:25 PM EDT documented as of this encounter Care Teams Right Of Way Man Relationship Specialty Start Date End Date Ernie Noriega MD 230 [place] [address] PCP - General Internal Medicine 08/25/19 [facility] 03/31/25 05/25/25 [facility] 05/25/25 06/13/25 [facility] 05/25/25 06/19/25 [facility] 06/07/25 documented as of this encounter
--- OUTSIDE RECORDS SUMMARY | 2025-07-06 17:11 | XMS_ITS | Encounter Summary ---
Author Organization [employer] Address [address] [facility] 7t [place] [address] Care Team Providers Care Electric Meter Installer Helper Name Role Phone Ernie Noriega MD Primary Care Provide r Reason for Visit * Reason Onset Date Comments Med Refill 10/25/2023 Encounter Details Date Type Department Care Team (Late st Contact Info) Description 10/25/2023 Refill [facility]LE [facility]ACCINE CLINIC [address] [place] [address] Perlita Woody MD [address] [place] [address] Primary hypertension Social History Tobacco Use Types [...] 3:00 PM EST Office Visit [facility] MEDICINE [address] [place] [address] Ernie Noriega MD [address] [place] [address] documented as of this encounter Visit Diagnoses Diagnosis Primary hypertension Unspecified essential hypertension documented in this encounter Additional Health Concerns Assessment Noted Time PHQ-9 Depression Total Score: 0 12/02/19 23 2:38 PM EST documented as of this encounter Care Teams Electric Meter Installer Helper Relationship Specialty Start Date End Date Ernie Noriega MD 230 [place] [address] PCP - General Internal Medicine 08/25/19 [facility] 03/31/25 05/25/25 [facility] 05/25/25 06/13/25 [facility] 05/25/25 06/19/25 [facility] 06/07/25 documented as of this encounter
--- OUTSIDE RECORDS SUMMARY | 2025-07-06 17:11 | XMS_ITS | Encounter Summary ---
Author Organization [employer] Address [address] [facility] 7t [place] [address] Care Team Providers Care Kai Whakaruruhau Name Role Phone Ernie Noriega MD Primary Care Provide r Reason for Visit * Reason Onset Date Comments Med Refill 09/28/2024 Encounter Details Date Type Department Care Team ([facility] st Contact Info) Description 09/28/2024 Telephone [facility] MEDICINE 230 [place] [address] Ernie Noriega MD [address] [place] [address] Med Refill Social History Tobacco Use Types [...] 300 MG capsule To be sent to: [facility]/pharmacy #[id number] [place] [address] documented in this encounter Plan of Treatment Upcoming Encounters Date Type Department Care Team (Late st Contact Info) Description 09/26/2025 3:00 PM EST Office Visit [facility] MEDICINE [address] [place] [address] Ernie Noriega MD [address] [place] [address] documented as of this encounter Visit Diagnoses Not on filedocumented in this encounter Additional Health Concerns Assessment Noted Time PHQ-9 Depression Total Score: 2 01/21/20 24 1:25 PM EDT documented as of this encounter Care Teams Kai Whakaruruhau Relationship Specialty Start Date End Date Ernie Noriega MD 230 [place] [address] PCP - General Internal Medicine 08/25/19 [facility] 03/31/25 05/25/25 [facility] 05/25/25 06/13/25 [facility] 05/25/25 06/19/25 [facility] 06/07/25 documented as of this encounter
--- OUTSIDE RECORDS SUMMARY | 2025-07-06 17:11 | XMS_ITS | Encounter Summary ---
Author Organization [employer] Address [address] [facility] 7t [place] [address] Care Team Providers Care Orchard Worker Name Role Phone Ernie Noriega MD Primary Care Provide r Reason for Visit * Reason Onset Date Comments Med Refill 10/12/2024 Encounter Details Date Type Department Care Team (Late st Contact Info) Description 10/12/2024 Refill [facility] MEDICINE 230 [place] [address] Ernie Noriega MD [address] [place] [address] Primary osteoarthritis of knee, unspecified laterality Social [...] 3:00 PM EST Office Visit [facility] MEDICINE [address] [place] [address] Ernie Noriega MD [address] [place] [address] documented as of this encounter Visit Diagnoses Diagnosis Primary osteoarthritis of knee, unspecified laterality documented in this encounter Additional Health Concerns Assessment Noted Time PHQ-9 Depression Total Score: 2 01/21/20 24 1:25 PM EDT documented as of this encounter Care Teams Orchard Worker Relationship Specialty Start Date End Date Ernie Noriega MD [address] [place] [address] PCP - General Internal Medicine 08/25/19 [facility] 03/31/25 05/25/25 [facility] 05/25/25 06/13/25 [facility] 05/25/25 06/19/25 [facility] 06/07/25 documented as of this encounter
--- OUTSIDE RECORDS SUMMARY | 2025-07-06 17:11 | XMS_ITS | Encounter Summary ---
Author Organization [employer] Address [address] [facility] 7t [place] [address] Care Team Providers Care Mid Teacher Name Role Phone Ernie Noriega MD Primary Care Provide r Reason for Visit * Reason Onset Date Comments Med Refill 11/04/2023 Encounter Details Date Type Department Care Team ([facility] st Contact Info) Description 11/04/2023 Refill [facility]ACCINE CLINIC [address] [place] [address] Ernie Noriega MD [address] [place] [address] Pain Social History Tobacco Use Types Packs/Day [...] Description 09/26/2025 3:00 PM EST Office Visit [facility] MEDICINE [address] [place] [address] Ernie Noriega MD [address] [place] [address] documented as of this encounter Visit Diagnoses Diagnosis Pain Generalized pain documented in this encounter Additional Health Concerns Assessment Noted Time PHQ-9 Depression Total Score: 0 12/02/19 23 2:38 PM EST documented as of this encounter Care Teams Mid Teacher Relationship Specialty Start Date End Date Ernie Noriega MD [address] [place] [address] PCP - General Internal Medicine 08/25/19 [facility] 03/31/25 05/25/25 [facility] 05/25/25 06/13/25 [facility] 05/25/25 06/19/25 [facility] 06/07/25 documented as of this encounter
--- OUTSIDE RECORDS SUMMARY | 2025-07-06 17:11 | XMS_ITS | Encounter Summary ---
Author Organization [employer] Address 75 [facility] 7t [place] [address] Care Team Providers Care Equipment Service Associate Name Role Phone Ernie Noriega MD Primary Care Provide r Reason for Visit * Reason Comments Med Refill Encounter Details Date Type Department Care Team ([facility] st Contact Info) Description 08/10/2023 Refill [facility] CL[facility]IC [address] [place] [address] Perlita Woody MD [address] [place] [address] Seasonal allergies; Primary hypertension Social History Tobacco [...] 3:00 PM EST Office Visit [facility] MEDICINE [address] [place] [address] Ernie Noriega MD [address] [place] [address] documented as of this encounter Visit Diagnoses Diagnosis Seasonal allergies Allergic rhinitis, cause unspecified Primary hypertension Unspecified essential hypertension documented in this encounter Additional Health Concerns Assessment Noted Time PHQ-9 Depression Total Score: 0 12/02/19 23 2:38 PM EST documented as of this encounter Care Teams Equipment Service Associate Relationship Specialty Start Date End Date Ernie Noriega MD [address] [place] [address] PCP - General Internal Medicine 08/25/19 [facility] 03/31/25 05/25/25 [facility] 05/25/25 06/13/25 [facility] 05/25/25 06/19/25 [facility] 06/07/25 documented as of this encounter
--- OUTSIDE RECORDS SUMMARY | 2025-07-06 17:11 | XMS_ITS | Encounter Summary ---
Author Organization [employer] Address [address] [facility] 7t [place] [address] Care Team Providers Care Drawing In Hand Name Role Phone Ernie Noriega MD Primary Care Provide r Reason for Visit * Reason Comments Med Refill Encounter Details Date Type Department Care Team ([facility] st Contact Info) Description 04/01/2025 Refill [facility] MEDICINE 230 [place] [address] Ernie Noriega MD 230 [place], [place] [phone] Primary hypertension; Seasonal allergies Social History Tobacco [...] Upcoming Encounters Date Type Department Care Team ([facility] st Contact Info) Description 09/26/2025 3:00 PM EST Office Visit [facility] MEDICINE [address] [place] [address] Ernie Noriega MD [address] [place] [address] documented as of this encounter Visit Diagnoses Diagnosis Primary hypertension Unspecified essential hypertension Seasonal allergies Allergic rhinitis, cause unspecified documented in this encounter Additional Health Concerns Assessment Noted Time PHQ-9 Depression Total Score: 4 01/13/20 25 2:57 PM EDT documented as of this encounter Care Teams Drawing In Hand Relationship Specialty Start Date End Date Ernie Noriega MD [address] [place] [address] PCP - General Internal Medicine 08/25/19 [facility] 03/31/25 05/25/25 [facility] 05/25/25 06/13/25 [facility] 05/25/25 06/19/25 [facility] 06/07/25 documented as of this encounter
--- OUTSIDE RECORDS SUMMARY | 2025-07-06 17:11 | XMS_ITS | Encounter Summary ---
Author Organization [employer] Address 75 [facility] 7t [place] [address] Care Team Providers Care Jewelry Mold Maker Name Role Phone Ernie Noriega MD Primary Care Provide r Reason for Visit * Reason Comments Med Refill Encounter Details Date Type Department Care Team ([facility] st Contact Info) Description 11/20/2023 Refill [facility]BILE [facility]ACCINE CLINIC 230 [place] [address] Ernie Noriega MD 230 [place], [place] [phone] Pain Social History Tobacco Use Types Packs/Day [...] Description 09/26/2025 3:00 PM EST Office Visit [facility] MEDICINE [address] [place] [address] Ernie Noriega MD 230 [place] [address] documented as of this encounter Visit Diagnoses Diagnosis Pain Generalized pain documented in this encounter Additional Health Concerns Assessment Noted Time PHQ-9 Depression Total Score: 0 12/02/19 23 2:38 PM EST documented as of this encounter Care Teams Jewelry Mold Maker Relationship Specialty Start Date End Date Ernie Noriega MD [address] [place] [address] PCP - General Internal Medicine 08/25/19 [facility] 03/31/25 05/25/25 [facility] 05/25/25 06/13/25 [facility] 05/25/25 06/19/25 [facility] 06/07/25 documented as of this encounter
--- OUTSIDE RECORDS SUMMARY | 2025-07-06 17:11 | XMS_ITS | Patient Health Record ---
Author Organization [facility] Address [address] [place] [address] Care Team Providers Care Shuttle Operator Name Role Phone Milton Ro MD, Ernie Primary Care Provide r Unavailable Rodrick Millan Unavailable [phone] Allergies No Known Allergies Reason For Referral [...] as needed Inhalation every 4 hrs Active Jubpxbwyjn-Flzkcwc-Idzxxezm 50-325-40 MG 1 capsule as needed Orally [...] Problem Status W/U Status Risk Notes Problem 754657125 Colon cancer screening (Z12.11) Active confirmed Problem Diverticular disease of colon (005028999) Diverticulosis of large intestine without perforation or abscess without bleeding (K57.30) Active confirmed Problem 080323266382507 Preprocedural examination (Z01.818) Active confirmed Problem 821998367 Encounter for long-term (current) use of NSAIDs (Z79.1) Active confirmed Plan Of Treatment Pending Test Test Name Order Date Pathology 03/18/2024 Future Test Test Name Order Date COLONOSCOPY 03/24/2013 COLONOSCOPY 08/11/2023 Insurance Providers Payer Name Payer Address Payer Phone Subscriber Number Group Number Insured Name Patient Relationship to Insured Coverage Start Date Coverage End Date MEDICAID OF [facility] [address] [place] [phone] [id number] ISHMAEL HINOJOSA Self - patient is the insured Medical (General) History Medical History History ICD Code Denies NM,DM,CVA,renal disease Asthma Depression/anxiety Hypertension Negative screening colonoscopy in 06/2013 Arthritis/Body aches Surgical History Surgery Date(Month/Year) Back surgery for disc disease Bilateral carpal tunnel Left shoulder C-spine disc surgery Bilateral knee replacements Might be having a left shoulder replacem ent as of the 07/2023 OV
--- OUTSIDE RECORDS SUMMARY | 2025-07-06 17:11 | XMS_ITS | Encounter Summary ---
Author Organization [employer] Address 75 [facility] 7t [place] [address] Care Team Providers Care Senior C Developer Name Role Phone Ernie Noriega MD Primary Care Provide r Reason for Visit * Reason Onset Date Comments Med Refill 11/04/2023 Encounter Details Date Type Department Care Team (Late st Contact Info) Description 11/04/[address] [facility] MEDICINE 230 [place] [address] Ernie Noriega MD [address] [place] [address] Chronic midline low back pain without sciatica; [...] 09/26/2025 3:00 PM EST Office Visit [facility] MEDICINE 230 [place] [address] Ernie Norieag MD [address] [place] [address] documented as of this encounter Visit Diagnoses Diagnosis Chronic midline low back pain without sciatica Cervical radiculopathy Brachial neuritis or radiculitis nos Seasonal allergies Allergic rhinitis, cause unspecified documented in this encounter Additional Health Concerns Assessment Noted Time PHQ-9 Depression Total Score: 0 12/02/19 23 2:38 PM EST documented as of this encounter Care Teams Senior C Developer Relationship Specialty Start Date End Date Ernie Noriega MD [address] [place] [address] PCP - General Internal Medicine 08/25/19 [facility] 03/31/25 05/25/25 [facility] 05/25/25 06/13/25 [facility] 05/25/25 06/19/25 [facility] 06/07/25 documented as of this encounter
--- OUTSIDE RECORDS SUMMARY | 2025-07-06 17:11 | XMS_ITS | Encounter Summary ---
Author Organization [employer] Address 75 [facility] 7t [place] [address] Care Team Providers Care Product Applications Engineer Name Role Phone Ernie Noriega MD Primary Care Provide r Reason for Visit * Reason Comments Med Refill Encounter Details Date Type Department Care Team ([facility] Contact Info) Description 04/01/2025 Refill [facility] MEDICINE [address] [place] [address] Perlita Myers MD [address] [place] [address] Mild persistent asthma without complication Social History [...] 3:00 PM EST Office Visit [facility] MEDICINE [address] [place] [address] Ernie Noriega MD [address] [place] [address] documented as of this encounter Visit Diagnoses Diagnosis Mild persistent asthma without complication documented in this encounter Additional Health Concerns Assessment Noted Time PHQ-9 Depression Total Score: 4 01/13/20 25 2:57 PM EDT documented as of this encounter Care Teams Product Applications Engineer Relationship Specialty Start Date End Date Ernie Noriega MD 230 [facility] [place] [address] PCP - General Internal Medicine 08/25/19 [facility] 03/31/25 05/25/25 [facility] 05/25/25 06/13/25 [facility] 05/25/25 06/19/25 [facility] 06/07/25 documented as of this encounter
--- OUTSIDE RECORDS SUMMARY | 2025-07-06 17:11 | XMS_ITS | Encounter Summary ---
Author Organization [employer] Address [address] [facility] [address] [place] [address] Care Team Providers Care Dairy Quality Assurance Officer Name Role Phone Ernie Noriega MD Primary Care Provide r Reason for Visit * Reason Onset Date Comments Nurse Triage 12/22/2024 Encounter Details Date Type Department Care Team ([facility] st Contact Info) Description 12/22/2024 Telephone [facility] [address] [place] [address] Ernie Noriega MD [address] [place] [address] Nurse Triage Social History Tobacco Use Types [...] 12/22/2024 10:03 AM EDT Called pt. Via [employer] volleyball referee [phone] [place]. Pt. States that she went to [...] leg pain now Please contact pt at [phone]. (Mauritian Speaker) documented in this encounter Plan of Treatment Upcoming Encounters Date Type Department Care Team (Late st Contact Info) Description 09/26/2025 3:00 PM EST Office Visit [facility] [address] [place] [address] Ernie Noriega MD [address] [place] [address] documented as of this encounter Visit Diagnoses Not on filedocumented in this encounter Additional Health Concerns Assessment Noted Time PHQ-9 Depression Total Score: 2 01/21/20 24 1:25 PM EDT documented as of this encounter Care Teams Dairy Quality Assurance Officer Relationship Specialty Start Date End Date Ernie Noriega MD [address] [place] [phone] PCP - General Internal Medicine 08/25/19 [facility] 03/31/25 05/25/25 [facility] 05/25/25 06/13/25 [facility] 05/25/25 06/19/25 [facility] 06/07/25 documented as of this encounter
--- OUTSIDE RECORDS SUMMARY | 2025-07-06 17:11 | XMS_ITS | Encounter Summary ---
Author Organization [employer] Address [address] [facility] [address] [place] [address] Care Team Providers Care Manager Motor Name Role Phone Ernie Noriega MD Primary Care Provide r Reason for Visit * Reason Onset Date Comments Med Refill 10/27/2023 Encounter Details Date Type Department Care Team (Late st Contact Info) Description 10/27/2023 Refill [facility] [address] [place] [address] Ernie Noriega MD [address] [place] [address] Mild persistent asthma without complication; Pain; Chronic [...] Description 09/26/2025 3:00 PM EST Office Visit [facility] [address] [place] [phone] Ernie Noriega MD [address] [place] [phone] documented as of this encounter Visit Diagnoses Diagnosis Mild persistent asthma without complication Pain Generalized pain Chronic midline low back pain without sciatica Cervical radiculopathy Brachial neuritis or radiculitis nos documented in this encounter Additional Health Concerns Assessment Noted Time PHQ-9 Depression Total Score: 0 12/02/19 23 2:38 PM EST documented as of this encounter Care Teams Manager Motor Relationship Specialty Start Date End Date Ernie Noriega MD [address] [place] [id number] PCP - General Internal Medicine 08/25/19 [facility] 03/31/25 05/25/25 [facility] 05/25/25 06/13/25 [facility] 05/25/25 06/19/25 [facility] 06/07/25 documented as of this encounter
--- OUTSIDE RECORDS SUMMARY | 2025-07-06 17:11 | XMS_ITS | Encounter Summary ---
Author Organization [employer] Address [address] [facility] 7[address] [place] [address] Care Team Providers Care Burial Vault Deliverer And Installer Name Role Phone Ernie Noriega MD Primary Care Provide r Reason for Visit * Reason Comments Med Refill Encounter Details Date Type Department Care Team ([facility] st Contact Info) Description 10/16/2023 Refill [facility] [address] [place] [address] Ernie Noriega MD [address] [place], [place] [phone] Pain Social History Tobacco Use Types Packs/Day [...] EST Office Visit [facility] [address] [place] [address] Ernie Noriega MD [address] [place] [address] documented as of this encounter Visit Diagnoses Diagnosis Pain Generalized pain documented in this encounter Additional Health Concerns Assessment Noted Time PHQ-9 Depression Total Score: 0 12/02/19 23 2:38 PM EST documented as of this encounter Care Teams Burial Vault Deliverer And Installer Relationship Specialty Start Date End Date Ernie Noriega MD [address] [place] [phone] PCP - General Internal Medicine 08/25/19 [facility] 03/31/25 05/25/25 [facility] 05/25/25 06/13/25 [facility] 05/25/25 06/19/25 [facility] 06/07/25 documented as of this encounter
--- OUTSIDE RECORDS SUMMARY | 2025-07-06 17:11 | XMS_ITS | Clinical Summary ---
Author Organization [employer] Address [address] [facility] [address] [place] [address] Care Team Providers Care Format Proofreader Name Role Phone Ernie Noriega MD Primary [...] Use daily 1 kit 04/26/20 24 Active Acetaminophen Extra Strength 500 MG [...] EVERY DAY 90 tablet 04/27/20 25 Active albuterol (2.5 MG/3ML) 0.083% [...] Do not crush, chew, or split. Active oxyCODONE (Roxicodone) 5 MG immediate release tabletIndications :Chronic midline low back pain without sciatica Take 1 tablet (5 mg) by mouth every 6 (six) hours if needed for severe pain. 112 tablet 06/13/20 25 Active lidocaine (Lidoderm) 5 % patchIndications: Primary osteoarthritis of knee, unspecified laterality APPLY 1 TO 2 PATCHES TOPICALLY AND LEAVE ON UP TO 12 HOURS DAILY IF NEEDED FOR PAIN 60 patch 1 06/20/20 25 Active gabapentin (Neurontin) 300 MG capsuleIndication s:Chronic midline low back pain without sciatica TAKE 2 CAPSULES BY MOUTH 3 TIMES DAILY 180 capsule 1 06/27/20 25 Active omeprazole (PriLOSEC) [address] capsuleIndication s:Gastritis without bleeding, unspecified chronicity, unspecified gastritis type TOME 1 CAPSULA POR VIA ORAL TODOS [place]ARE[place] BEFORE A MEAL 90 capsule 3 06/27/20 25 Active fluticasone (Flonase) 50 MCG/ACT nasal sprayIndications: Seasonal allergies USE 2 SPRAYS INTO EACH NOSTRIL 2 TIMES DAILY 48 mL 06/27/20 25 Active polyethylene glycol, PEG, 3350 (GaviLAX) 17 GM/SCOOP powderIndications :Constipation, unspecified constipation type TAKE 17G ONCE DAILY FOR 3 DAY AND THEN NEEDED 510 g 2 07/04/20 Active omeprazole (PriLOSEC) [address] capsuleIndication s:Gastritis without bleeding, unspecified chronicity, unspecified gastritis type TOME 1 CAPSULA POR VIA ORAL TODOS [place]ARE[place] BEFORE A MEAL 90 capsule 3 11/29/19 25 2024 Discontinued(R eorder (will not trigger notification to Pharmacy)) fluticasone (Flonase) 50 MCG/ACT nasal sprayIndications: Seasonal allergies USE 2 SPRAYS INTO EACH NOSTRIL 2 TIMES DAILY 48 mL 02/15/20 25 2024 Discontinued(R eorder (will not trigger notification to Pharmacy)) oxyCODONE (Roxicodone) 5 MG immediate release tabletIndications :Chronic midline low back pain without sciatica Take 1 tablet (5 mg) by mouth every 6 (six) hours if needed for severe pain. 112 tablet 04/04/20 25 2024 Discontinued(R eorder (will not trigger notification to Pharmacy)) lidocaine (Lidoderm) 5 % patchIndications: Primary osteoarthritis of knee, unspecified laterality APPLY 1 TO 2 PATCHES TOPICALLY AND LEAVE ON UP TO 12 HOURS DAILY IF NEEDED FOR PAIN 60 patch 1 04/13/20 25 2024 Discontinued gabapentin (Neurontin) 300 MG capsuleIndication s:Chronic midline low back pain without sciatica TAKE 2 CAPSULES BY MOUTH 3 TIMES DAILY 180 capsule 1 04/27/20 25 2024 Discontinued polyethylene glycol, PEG, 3350 (MiraLax) 17 GM/SCOOP powderIndications :Constipation, unspecified constipation type Take 17g once daily for 3 day and then as needed 510 g 06/06/20 25 2024 Discontinued Active Problems Problem Noted Date Diagnosed Date Acute pain of right shoulder 07/06/2025 Assessment & Plan (07/06/2025 11:41 AM EDT): New onset, since April, patient receiving PT with no goof results On exam decreased ROM right shoulder, Pt has a history of a fall Plan: Plain films continue PT Pulmonary nodules 04/04/2025 Assessment & Plan (04/04/2025 [...] has chronic low back pain, treated at [facility] by Dr Clint Newberry. Hx of AP fusion from L4-sacrum in 2003. She has received epidural injections initially with good results but that is no longer the case. Pt developed lumbar spinal stenosis and on 01/14/2021 underwent Posterior neural foraminotomy L2-L3 by Dr. Bailey. She was admitted to [facility] from 11/13/2022 until 11/20/2022 due to worsening low back pain with radiation to her right thigh and right leg after an experimental thoracic spinal stimulation procedure at the surgery center of [place] (She was referred there by [facility]). Procedure was aborted after pt experienced [...] does not want to follow-up with [facility] d/t the severe pain she experienced with [...] care of Orthopaedic specialist Dr Lees at [facility]. Pt would like to hold off on procedure until her back feels better. I contacted the office of Orthopaedic surgeon who stated this was an elective procedure and was ok with delaying until pt felt ready Assessment & Plan (12/04/2022 8:31 AM EST): Pt had initially come in for a Preoperative exam. Under the care of Orthopaedic specialist Dr Lees at [facility]. Pt would like to hold off on [...] has a [employer] Card recommended by [facility] treating physician. pt utilizes the liquid form. She is no [facility] under [facility] of [facility] I had been prescribing tramadol [...] has a Medical [place] Card recommended by [facility] treating physician. pt utilizes the liquid form. She is no longer under the care of [facility] I had been prescribing tramadol to [...] Dr Soto who referred her back to [facility] for back pain History of total [...] is under the care of Pulmonology Dr Sniedr, last seen 08/11/2024 Continue current regimen 6 [...] low back pain 05/12/2012 Assessment & Plan (07/06/2025 11:43 AM EDT): Pt here for a f/u Patient has a Hx of chronic low back pain, treated in the past at [facility] by Dr Clint Newberry. Hx of AP fusion from L4-sacrum in 2004. She received epidural injections with good results in the past. but that is no longer the case. Pt developed lumbar spinal stenosis and on 01/14/2021 underwent Posterior neural foraminotomy L2-L3by Dr. Bailey. Admitted to [facility] from 11/13/2022 until 11/20/2022 due to worsening low back pain with radiation to her right thigh and right leg after an experimental thoracic spinal stimulation procedure at the surgery center [facility] (She was referred there by [facility]). Procedure [...] encroachment seen. Subsequently she was referred to [facility], Their assesment was that patient hadsevere [...] care of Dr Christopher Peres Neurosurgeon at [facility] He reviewed her MRI thoracic and lumbar [...] if she is still having this pain he will refer her for pain management. He also discussed with her weaning of the brace. Follow up with me in 3 months Assessment & Plan (05/09/2025 1:14 PM EDT): Pt here for a f/u c/p pain 10/10 Unable to walk on her own. Patient has a Hx of chronic low back pain, treated in the past at [facility] by Dr Clint Newberry. Hx of AP fusion from L4-sacrum in 2003. She received epidural injections with good results in the past. but that is no longer the case. Pt developed lumbar spinal stenosis and on 01/14/2021 underwent Posterior neural foraminotomy L2-L3by Dr. Bailey. Admitted to [facility] from 11/13/2022 until 11/20/2022 due to worsening low back pain with radiation to her right thigh and right leg after an experimental thoracic spinal stimulation procedure at the surgery center [facility] (She was referred there by [facility]). Procedure [...] encroachment seen. Subsequently she was referred to [facility], Their assesment was that patient hadsevere [...] care of Dr Christopher Peres Neurosurgeon at [facility] He reviewed her MRI thoracic and lumbar [...] back pain, treated in the past at [facility] by Dr Clint Newberry. Hx of AP fusion from L4-sacrum in 2003. She received epidural injections with good results in the past. but that is no longer the case. Pt developed lumbar spinal stenosis and on 01/14/2021 underwent Posterior neural foraminotomy L2-L3by Dr. Bailey. She was admitted to [facility] from 11/13/2022 until 11/20/2022 due to worsening low back pain with radiation to her right thigh and right leg after an experimental thoracic spinal stimulation procedure at the surgery center of [place] (She was referred there by [facility]). Procedure was aborted after pt experienced [...] encroachment seen. Subsequently she was referred to [facility], Their assesment was that patient hadsevere [...] care of Dr Christopher Peres Neurosurgeon at [facility] He reviewed her MRI thoracic and lumbar [...] back pain, treated in the past at [facility] by Dr Clint Newberry. Hx of AP fusion from L4-sacrum in 2003. She received epidural injections with good results in the past. but that was no longer the case. Pt developed lumbar spinal stenosis and on 01/14/2021 underwent Posterior neural foraminotomy L2-L3by Dr. Bailey. She was admitted to [facility] from 11/13/2022 until 11/20/2022 due to worsening low back pain with radiation to her right thigh and right leg after an experimental thoracic spinal stimulation procedure at the surgery center [facility] (She was referred there by [facility]). Procedure was aborted after pt experienced [...] encroachment seen. Subsequently she was referred to [facility], seen Their assesment was:that [...] back pain, treated in the past at [facility] by Dr Clint Newberry. Hx of AP fusion from L4-sacrum in 2003. She received epidural injections with good results in the past. but that was no longer the case. Pt developed lumbar spinal stenosis and on 01/14/2021 underwent Posterior neural foraminotomy L2-L3by Dr. Bailey. She was admitted to [facility] from 11/13/2022 until 11/20/2022 due to worsening low back pain with radiation to her right thigh and right leg after an experimental thoracic spinal stimulation procedure at the surgery center [facility] (She was referred there by [facility]). Procedure [...] pain, she had been receiving treatment at [facility] by Dr Clint Newberry. Hx of AP fusion from L4-sacrum in 2003. She has received epidural injections with good results in the past. but that was no longer the case. Pt developed lumbar spinal stenosis and on 01/14/2021 underwent Posterior neural foraminotomy L2-L3by Dr. Bailey. Patient is here for a follow up. She was recently admitted to [facility] from 11/13/2022 until 11/20/2022 due to worsening low back pain with radiation to her right thigh and right leg after an experimental thoracic spinal stimulation procedure at the surgery center [facility] (She was referred there by [facility]). Procedure was aborted after pt experienced [...] does not want to follow-up with [facility] d/t the severe pain she experienced with [...] pain, she had been receiving treatment at [facility] by Dr Clint Newberry. Hx of AP fusion from L4-sacrum in 2003. She has received epidural injections with good results in the past. but that was no longer the case. Pt developed lumbar spinal stenosis and on 01/14/2021 underwent Posterior neural foraminotomy L2-L3by Dr. Bailey. She was admitted to [facility] from 11/13/2022 until 11/20/2022 due to worsening low back pain with radiation to her right thigh and right leg after an experimental thoracic spinal stimulation procedure at the surgery center [facility] (She was referred there by [facility]). Procedure was aborted after pt experienced [...] does not want to follow-up with [facility] [place] d/t the severe pain she experienced with [...] pain, she had been receiving treatment at [facility] by Dr Clint Newberry. Hx of AP fusion from L4-sacrum in 2003. She has received epidural injections with good results in the past. but that was no longer the case. Pt developed lumbar spinal stenosis and on 01/14/2021 underwent Posterior neural foraminotomy L2-L3by Dr. Bailey. Patient is here for a follow up. She was recently admitted to [facility] from 11/13/2022 until 11/20/2022 due to worsening low back pain with radiation to her right thigh and right leg after an experimental thoracic spinal stimulation procedure at the surgery [facility] (She was referred there by [facility]). Procedure was aborted after pt experienced [...] does not want to follow-up with [facility] [place] d/t the severe pain she experienced with [...] Encounters Date Type Department Care Team Description 07/06/2025 11:15 AM EDT Office Visit [facility] [address] [place] [address] Ernie Noriega MD Chronic midline low back pain without sciatica (Primary Dx); Acute pain of right shoulder 07/06/2025 Travel 07/05/2025 Telephone [facility] [address] [facility] [place] [address] Ernie Noriega MD chart prep 07/03/2025 Refill [facility] [address] [facility] [place] [phone] Wandy Persaud ANP Constipation, unspecified constipation type 06/29/2025 Travel 06/26/2025 Refill [facility] [address] [place] [address] Ernie Noriega MD Chronic midline low back pain without sciatica 06/26/2025 Refill [facility] [address] [place] [address] Ernie Noriega MD Gastritis without bleeding, unspecified chronicity, unspecified gastritis type 06/26/2025 Refill [facility] [address] [place] [address] Ernie Noriega MD Seasonal allergies 06/26/2025 Refill [facility] [address] [place] [address] Ernie Noriega MD Chronic midline low back pain without sciatica; Gastritis without bleeding, unspecified chronicity, unspecified gastritis type; Seasonal allergies 06/18/2025 Refill [facility] [address] [place] [address] Ernie Noriega MD Primary osteoarthritis of knee, unspecified laterality 06/16/2025 Patient Outreach [facility] [address] [place] [address] Ernie Noriega MD Care Coordination ([facility]gencies) 06/15/2025 Results Follow-Up [facility] [address] [place] [address] Wandy Persaud ANP Hemoglobin A1c, Basic Metabolic Panel, CBC auto differential, Iron And Total Iron Binding Capacity 06/15/2025 Results Follow-Up [facility] [address] [place] [address] Wandy Persaud ANP US VENOUS DUPLEX LE RT 06/13/2025 Refill [facility] [address] [place] [address] Ernie Noriega MD Chronic midline low back pain without sciatica 06/09/2025 Orders Only [facility] [address] [place] [address] Wandy Persaud ANP 06/07/2025 Telephone [facility] [address] [place] [address] Ernie Noriega MD FYI 06/06/2025 10:30 AM EDT Office Visit [facility] [place] [address] Wandy Persaud ANP Hospital discharge follow-up (Primary Dx); Status post osteotomy; Status post laminectomy with spinal fusion; Constipation, unspecified constipation type; Acute pain of right knee; Anemia, unspecified type; Chronic right shoulder pain 06/06/2025 Travel 05/30/2025 Refill [facility] [place] [address] Ernie Noriega MD 05/30/2025 Travel 05/26/2025 Telephone [facility] MARIA T Almeida [phone] Ernie Noriega MD Referral 05/24/2025 Telephone [facility] [address] Ernie Noriega MD Verbal Order 05/23/2025 Patient Outreach [facility] [place] [address] Ernie Noriega MD Transition Of Care (Tcm) (HDF- Transferred to Rehab due to Surgery ) 05/09/2025 1:00 PM EDT Office Visit [facility] [place] [address] Ernie Noriega MD Chronic midline low back pain without sciatica (Primary Dx) 05/09/2025 Travel 05/08/2025 Telephone [facility] [address] Ernie Noriega MD Chart Prep 05/02/2025 Telephone [facility] [place] [address] Ernie Noriega MD Durable Medical Equipment (DME Request: Hip Kit) 05/02/2025 Travel 04/27/2025 Orders Only GENERIC EXTERNAL DATA DEPARTMENT Provider, Generic External Data 04/26/2025 Refill [facility] [place] [address] Ernie Noriega MD Ischial pain, right; Pain; Primary hypertension; Mild persistent asthma without complication; Chronic midline low back pain without sciatica; Primary osteoarthritis of knee, unspecified laterality 04/18/2025 Telephone [facility] [address] [place] [address] Ernie Noriega MD Referral 04/13/2025 Orders Only [facility] [address] [place] [address] Ernie Noriega MD Right foot pain (Primary Dx) 04/13/2025 Refill [facility] [address] [place] [address] Ernie Noriega MD Primary osteoarthritis of knee, unspecified laterality 04/13/2025 Refill [facility] [address] [place] [address] Ernie Noriega MD Primary osteoarthritis of knee, unspecified laterality 04/11/2025 Telephone [facility] [address] [place] [address] Ernie Noriega MD 04/11/2025 Refill [facility] [address] [place] [address] Ofelia Melgar MD 04/06/2025 Orders Only [facility] External Provider, [facility] from Last 3 Months Immunizations Immunization Administration [...] Mass Index 27.32 07/06/2025 11:20 AM EDT Plan of Treatment Upcoming Encounters Date Type Department Care Team (Late st Contact Info) Description 09/26/2025 3:00 PM EST Office Visit [facility] [address] [place] [address] Ernie Noriega MD [address] [place] [address] Health Maintenance Due Date Last Done Comments CT Colonography 1965 FIT DNA/Cologuard 1965 FIT 1965 FOBT 1965 HIV Screening 1965 Sigmoidoscopy 1965 Pap Smear 1984 RSV Patients and Patients Aged 60 years or older (1 - Risk 60-74 years 1-dose series) 2023 COVID-19 Vaccine ( season) 2025 07/16/2022, 08/28/2021, 02/22/2021, Additional history exists Influenza Vaccine (#1) 2025 , 07/21/2023, 07/16/2022, Additional history exists Alcohol/Substance Use Screening 10/13/2025 10/13/2024 Cervical Cancer Screening 12/19/2025 HPV/Cotest 12/19/2025 12/19/2020, 12/10, 09/02/2019 Depression Screening 01/12/2026 01/12/2025, 01/13/20 SDOH Screening 01/12/2026 01/12/2025 Disability Screening 04/04/2026 04/04/2025 Tobacco Screening 07/06/2026 07/06/2025 Mammogram 01/05/2027 01/05/2025, 12/11, 12/23/2022, Additional history exists Colonoscopy 03/18/2029 03/18/2024, 04/2024, 06/15/2013 Colorectal Cancer Screening 03/18/2029 Lipid Panel [...] PM EDT Acute pain of right shoulder IRON AND TOTAL IRON BINDING CAPACITY Routine 06/09/2025 9:57 AM EDT Anemia, unspecified type CBC WITH AUTO DIFFERENTIAL Routine 06/09/2025 9:57 AM EDT Hospital discharge follow-up BASIC METABOLIC PANEL Routine 06/09/2025 9:57 AM EDT Hospital discharge follow-up HEMOGLOBIN A1C Routine 06/09/2025 9:57 AM EDT Hospital discharge follow-up US VENOUS DUPLEX LE RT Routine 06/09/2025 9:18 AM EDT CULTURE, URINE, ROUTINE Routine 04/27/2025 11:40 AM EDT XR KNEE 3 VIEWS RIGHT Routine 04/17/2025 4:00 PM EDT LIPID PANEL, STANDARD Routine 01/25/2025 [...] Relevant to Health Maintenance Results * XR Shoulder 2+ Views Right (07/06/2025 12:35 PM EDT) Anatomical Region Laterality Modality Upper Extremities, Shoulder Right Radi ographic Imaging 07/06/2025 12:3 5 PM EDT Narrative 07/06/2025 12:49 PM EDT [address] [address] XRay Report Signed Patient: Miguelina Julien MR#: [id number] 12 : 1965 Acct:[id number] Age/Sex: 60 / F ADM Date: 07/06/25 Loc: [facility] Attending Dr: Ernie Merritt MD Ordering Physician: Ernie Merritt MD Date of Service: 07/06/25 Procedure(s): XR shoulder RT min 2V Accession Number(s): [id number] cc: Ernie Merritt MD Reason for Exam: [...] Preston Bernal MD 07/06/2025 12:46 PM EDT Dictated By: Preston Bernal MD Signed By: <Electronically signed by Preston Bernal MD in OV> 07/06/25 1246 DD/ 1235 TD/TT: 07/06/25 1235 [employer]bags: Procedure Note Donotuseinterpreter, Image - 07/06/[address] [address] XRay Report Signed Patient: Miguelina JulienMR#: [id number] 12 : 1965Acct:[id number] Age/Sex: 60 / FADM Date: 07/06/25 Loc: [facility] Attending Dr: Ernie Merritt MD Ordering Physician: Ernie Merritt MD Date of Service: 07/06/25 Procedure(s): XR shoulder RT min 2V Accession Number(s): [id number] cc: Ernie Merritt MD Reason for Exam: [...] 07/06/25 1246 DD/ 1235 TD/TT: 07/06/25 1235 [employer]bags: us Ernie Ro MD IMG XR PROCEDURES Fin al Result * (ABNORMAL) CBC auto differential (06/09/2025 9:57 AM EDT) White Blood Count 8.0 4.8 - 10.8 X10*3/uL [facility] Red Blood Count 3.73(L) 4.20 - 5.50 X10*6/uL [facility] Hemoglobin 10.0(L) 12.0 - 16.0 g/dl [facility] Hematocrit 31.8(L) 37.0 - 47.0 % [facility] Mean Corpuscular Volume 85.3 80.0 - 98.0 fL [facility] Mean Corpuscular Hemoglobin 26.8(L) 27.0 - 33.0 pg [facility] Mean Corpuscular HGB Conc 31.4 31.0 - 35.0 g/dl [facility] Red Cell Distribution Width 14.8 11.0 - 16.0 % [facility] Platelet Count 577(H) 160 - 400 X10*3/uL [facility] Mean Platelet Volume 9.4 9.4 - 12.3 fL [facility] Neutrophils Percent Auto 66.9 45 - 73 % [facility] Imm Gran Pct Auto 1.0(H) 0.0 - 0.4 % [facility] Lymphocytes Percent Auto 23.8 20 - 40 % [facility] Monocytes Percent Auto 5.9 2 - 11 % [facility] Eosinophils Percent Auto 1.5 0 - 4 % [facility] Basophils Percent Auto 0.9 0 - 2 % [facility] NRBC Pct Auto 0.0 0.0 - 0.2 /100WBC [facility] Neutrophils Absolute Auto 5.3 2.0 - 8.3 x10*3/uL [facility] Imm Gran Abs Auto 0.08(H) 0.00 - 0.03 X10*3/uL [facility] Lymphocytes Absolute Auto 1.9 1.2 - 4.9 X10*3/uL [facility] Monocytes Absolute Auto 0.5 0.1 - 1.2 X10*3/uL [facility] Eosinophils Absolute Auto 0.1 0.0 - 0.4 X10*3/uL [facility] Basophils Absolute Auto 0.1 0.0 - 0.2 X10*3/uL [facility] NRBC Abs Auto 0.000 0.0 - 0.012 X10*3/uL [facility] Blood Venous blood specimen / Unknown 06/09/2025 9:57 AM EDT 06/09/2025 9:57 AM EDT Wandy Persaud [facility] LAB BLOOD ORDERABLES Final Resul t [facility] [address] [place], [place] [phone] * Iron And Total Iron Binding Capacity (06/09/2025 9:57 AM EDT) Iron 40 30 - 160 mcg/dL [facility] Total Iron Binding Capacity 267 228 - 428 mcg/dL [facility] Percent Iron Saturation 15 15 - 50 % [facility] Unsaturated Iron Binding 227 ug/dL [facility] Blood Venous blood specimen / Unknown 06/09/2025 9:57 AM EDT 06/09/2025 9:57 AM EDT Wandy Persaud ANP LAB BLOOD ORDERABLES Final Resul t Performing Organization Address [facility] de Phone Number [facility] [address] [place] [phone] * Hemoglobin A1c (06/09/2025 9:57 AM EDT) Hemoglobin A1c 5.4 <6.0 % [facility] Comment:Hemoglobin A1C Refer ence Range Adults: 4.8 - 6.0 % Non diabetic: < 6.0 % Goal: < 7.0 %Additional Action Suggested: > 8.0 %Note: Hemoglobin A1c results are invalid for patients with abnormal amounts of HbF. Blood transfusions may impact the HbA1c concentration in the patient sample. Estimated Average Glucose 108 mg/dL [facility] Comment:eAG = Estimated ave rage glucose which is %A1C expressed asaverage glucose, using the formula of the [id number] Glucose study (ADAG), Diabetes Care, Vol.31,#8,May. 2007 Blood Venous blood specimen / Unknown 06/09/2025 9:57 AM EDT 06/09/2025 9:57 AM EDT us Wandy Persaud ANP LAB BLOOD ORDERABLES Final Resul t Performing Organization Address [facility] de Phone Number [facility] [address] [place] [phone] * (ABNORMAL) Basic Metabolic Panel (06/09/2025 9:57 AM EDT) Sodium 141 135 - 145 mmol/L [facility] Potassium 3.8 3.3 - 5.1 mmol/L [facility] Chloride 105 96 - 108 mmol/L [facility] Carbon Dioxide 27 22 - 29 mmol/L [facility] Anion Gap 13 12 - 20 [facility] Urea Nitrogen (BUN) 17(H) 9 - 16 mg/dL [facility] Creatinine, Serum 0.59 0.5 - 1.4 mg/dL [facility] Estimated Glomerular Filt Rate >60 [facility] Comment:Chronic Kidney Disea se: Estimated GFR < 60 mL/min/1.08h8Sbszdm Kidney Disease: Estimated GFR < 15 mL/min/1.73m2 Glucose 108 60 - 115 mg/dL [facility] Calcium 9.4 8.4 - 10.2 mg/dL [facility] Blood Venous blood specimen / Unknown 06/09/2025 9:57 AM EDT 06/09/2025 9:57 AM EDT us Wandy Persaud ANP LAB BLOOD ORDERABLES Final Resul t Performing Organization Address City/State/[facility] Co de Phone Number [facility] [address] [place] [phone] * US VENOUS DUPLEX LE RT (06/09/2025 9:18 AM EDT) Anatomical Region Laterality Modality Abdomen Ultrasound 06/09/2025 9:18 AM EDT Narrative 06/09/2025 10:02 AM EDT [address] [address] Ultrasound Report Signed Patient: Miguelina Julien MR#: [id number] [birth year] : 1965 Acct:[id number] Age/Sex: 60 / F ADM Date: 06/09/25 Loc: HO.US Attending Dr: Wandy Persaud NP Ordering Physician: WANDY PERSAUD NP Date of Service: 06/09/25 Procedure(s): US venous duplex LE RT Accession Number(s): [id number] cc: Ernie Merritt MD; WANDY PERSAUD NP EXAMINATION: US TRIPLEX LOWER EXTREMITY, RIGHT CLINICAL INFORMATION: Right lower extremity swelling COMPARISON: None available. TECHNIQUE: Color-flow triplex imaging with spectral analysis and compression Doppler were performed on the right lower extremity. FINDINGS: Respiratory variation, normal compression and augmented flow are noted throughout the right lower extremity. The visualized common femoral vein, superficial femoral vein, profunda femoral vein, popliteal vein and midcalf peroneal and posterior tibial venous segments show no evidence of deep venous thrombosis. There is no Michele's cyst. US/US venous duplex LE RT IMPRESSION: No evidence of deep venous thrombosis involving the right lower extremity. No Michele's cyst. Electronically signed by: Preston Bernal MD 06/09/2025 10:00 AM EDT Dictated By: Preston Bernal MD Signed By: <Electronically signed by Preston Bernal MD in OV> 06/09/25 1000 DD/ 7 TD/TT: 06/09/25926 Assembler Handbags: Procedure Note Donotuseinterpreter, Image - 06/09/2025 [place] [address] Ultrasound Report Signed Patient: Miguelina Julien#: [id number] 12 : 1965Acct:[id number] Age/Sex: 60 / FADM Date: 06/09/25 Loc: .US Attending Dr: Wandy Persaud NP Ordering Physician: WANDY PERSAUD NP Date of Service: 06/09/25 Procedure(s): US venous duplex LE RT Accession Number(s): [id number] cc: Ernie Merritt MD; WANDY PERSAUD NP EXAMINATION: US TRIPLEX LOWER EXTREMITY, RIGHT CLINICAL INFORMATION: Right lower extremity swelling COMPARISON: None available. TECHNIQUE: Color-flow triplex imaging with spectral analysis and compression Doppler were performed on the right lower extremity. FINDINGS: Respiratory variation, normal compression and augmented flow are noted throughout the right lower extremity. The visualized common femoral vein, superficial femoral vein, profunda femoral vein, popliteal vein and midcalf peroneal and posterior tibial venous segments show no evidence of deep venous thrombosis. There is no Mcihele's cyst. US/US venous duplex LE RT IMPRESSION: No evidence of deep venous thrombosis involving the right lower extremity. No Michele's cyst. Electronically signed by: Preston Bernal MD 06/09/2025 10:00 AM EDT RP Dictated By: Preston Bernal MD Signed By: <Electronically signed by Preston Bernal MD in OV> 06/09/25 1000 DD/ 7 TD/TT: 06/09/25926 Assembler Handbags: us Wandy MEYER IMG US PROCEDURES Edited Result - Final * Culture, Urine, Routine (04/27/2025 11:40 AM EDT) Urine Urine specimen obtained by clean catch procedure / Unknown 04/27/2025 11:40 AM EDT 04/27/2025 5:12 PM EDT Comment:UACC Narrative [facility] - 04/29/2025 10:49 AM EDT Urine Culture Report Result Urine Culture < 10,000 cfu/ml Specimen Source: Urine clean catch us Generic External Data Provider LAB MICROBIOLOGY - GENERAL ORDERABLES Final Result Performing Organization Address City/State/[facility] Co de Phone Number [facility] [address] [place] [phone] * XR Knee 3 Views Right (04/17/2025 4:00 PM EDT) Anatomical Region Laterality Modality Lower Extremities, Knee Right Radiogra phic Imaging 04/17/2025 4:00 PM EDT Narrative 04/17/2025 4:02 PM EDT [facility] [address] [place] [address] XRay Report Signed Patient: Miguelina Julien MR#: [id number] [birth year] : 1965 Acct:[id number] Age/Sex: 59 / F ADM Date: 04/06/25 Loc: [facility] Attending Dr: Michelle Peguero PA-C Ordering Physician: Michelle Peguero PA-C Date of Service: 04/06/25 Procedure(s): XR knee RT 3V Accession Number(s): [id number] cc: Ernie Merritt MD; Michelle Peguero PA-C [...] 04/17/25 1602 DD/ 1600 TD/TT: 04/17/25 1600 Assembler Handbags: Procedure Note Donsomter, Image - 04/17/2025 [facility] [address] [place] [address] [place] [address] XRay Report Signed Patient: Miguelina Julien#: [id number] 12 : 1965Acct:[id number] Age/Sex: 59 / FADM Date: 04/06/25 Loc: HO.HOSX Attending Dr: Michelle Peguero PA-C Ordering Physician: Michelle Peguero PA-C Date of Service: 04/06/25 Procedure(s): XR knee RT 3V Accession Number(s): [id number] cc: Ernie Merritt MD; Michelle Peguero PA-C [...] 04/17/25 1602 DD/ 1600 TD/TT: 04/17/25 1600 Assembler Handbags: [facility] External Provider IMG XR PROCEDURES Final Result * (ABNORMAL) Lipid Panel, Standard (01/25/2025 8:37 AM EDT) Triglycerides 165(H) <150 mg/dL [facility] Comment:Desirable Triglyceri de: less than 150 mg/dLBorderline High Triglyceride 150-199 mg/dLHigh Triglyceride: 200-499 mg/dLVery High Triglyceride: greater than or equal to 5OO mg/dL Cholesterol 232(H) <200 mg/dL [facility] Comment:Desirable Cholestero l: less than 200 mg/dLBorderline High Cholesterol: 200-239 mg/dLHigh Cholesterol: greater than 239 mg/dL LDL Cholesterol Calculated 133(H) <100 mg/dL [facility] Comment:Desirable LDL: less than 100 mg/dLNear Optimal/Above Optimal LDL: 110- 129 mg/dLBorderline High LDL: 130-159 mg/dLHigh LDL: 160-189 mg/dLVery High LDL: greater than or equal to 190 mg/dL HDL Cholesterol 66 >40 mg/dL [facility] Comment:Desirable HDL: great er than 40 mg/dL Note: This HDL assay may give artificially low results in patients with liver disease. Blood Venous blood specimen / Unknown 01/25/2025 8:37 AM EDT 01/25/2025 11:14 AM EDT Ernie Ro MD LAB BLOOD ORDERABLES Final Result [facility] [address] [place] [phone] * BI Mammogram Screening Tomosynthesis Bilateral (01/05/2025 10:00 AM EDT) Anatomical Region Laterality Modality Breast Bilateral Mammography 01/05/2025 10:0 0 AM EDT Narrative 01/13/2025 2:49 PM EDT [address] [place] [address] Mammography Report Signed Patient: Miguelina Julien MR#: [id number] [birth year] : 1965 Acct:[id number] Age/Sex: 59 / F ADM Date: 01/05/25 Loc: HO.MAMMO Attending Dr: Ernie Merritt MD Ordering Physician: Ernie Merritt MD Resu lts: 1Negative Date of Service: 01/05/25 Follow Up: 1 Year From Orig inal Mammogram Procedure(s): MM tomosynthesis screening BI Accession Number(s): [id number] cc: Ernie Merritt MD EXAMINATION: MM SCREENING [...] 01/13/25 1447 DD/ 1000 TD/TT: 01/05/25 1015 Assembler Handbags: Procedure Note Donotuseinterpreter, Image - 01/13/[address] [place] [address] Mammography Report Signed Patient: Miguelina Julien#: [id number] [birth year] : 1965Acct:[id number] Age/Sex: 59 / FADM Date: 01/05/25 Loc: HO.MAMMO Attending Dr: Ernie Merritt MD Ordering Physician: Ernie Merritt MDResu lts: 1Negative Date of Service: 01/05/25Follow Up: 1 Year From Orig inal Mammogram Procedure(s): MM tomosynthesis screening BI Accession Number(s): [id number] cc: Ernie Merritt MD EXAMINATION: MM SCREENING [...] for their next mammogram. Electronically signed by: aYri Valencia DO 01/13/2025 02:47 PM EDT Dictated By: Yari Valencia DO Signed By: <Electronically signed by Yari Valencia DO in OV> 01/13/25 1447 DD/ 1000 TD/TT: 01/05/25 1015 Assembler Handbags: us Ernie Ro MD IMG BI PROCEDURES Fin al Result * (ABNORMAL) Hm Colonoscopy (03/18/2024) Colonoscopy Abnormal( A) Normal Comment:Tubular Adenoma 03/18/2024 Historical Provider HEALTH MAINTENANCE Final Result * Hepatitis C Antibody with Reflex to HCV, RNA, Quantitative, Real-Time PCR (11/07/2022 8:24 AM EST) Hepatitis C Antibody NON-REACT TAMARA NON-REACT TAMARA [facility] Index 0.12 <1.00 [facility] Comment: HCV antibody was non-reactive. There is no laboratory evidence of HCV infection. In most cases, no further action is required. However, if recent HCV exposure is suspected, a test for HCV RNA (test code 34060) is suggested. For additional information please refer to http://education.Lopoly/faq/SJV55q4 (This link is being provided for informational/ educational purposes only.) Blood Venous blood specimen / Unknown 11/07/2022 8:24 AM EST 11/07/2022 8:25 AM EST Narrative [facility] - 11/08/2022 12:51 AM EST FASTING:YES FASTING: YES Ernie Ro MD LAB BLOOD ORDERABLES Final Result [facility] [address], [place] [address] [facility] [address] [facility], ([address]) [place] [address] * HPV E6/E7 RFLX SERGIO 16 18/45 (12/19/2020 3:40 PM EST) HPV 16 RNA [facility] HPV 18/45 RNA [facility] HPV E6 E7 ADD [facility]NP [facility] HPV mRNA E6/E7 rflx Not Detected Not Detected [facility] Comment: Methodology: Regional Operations Director-Mediated Amplification This assay detects E6/E7 viral messenger RNA (mRNA) from 14 high-risk HPV types (16,18,31,33,35,39,45,51,52,56,58,59,66,68). The analytical performance characteristics of this assay have been determined by [facility]. The modifications have not been cleared or approved by the FDA. This assay has been validated pursuant to the CLIA regulations and is used for clinical purposes. For additional information, please refer to http://education.Lopoly/faq/CTZ000b2 (This link if provided for information/ educational purposes only.) THIS TEST WAS PERFORMED AT: [address] [place] [address] [address] [address] FLACA ANTONY MD 12/19/2020 3:40 PM EST us Historical Provider HISTORICAL/NON ORDERABLE LABS Final Result Performing Organization Address City/State/[facility] Co de Phone Number [facility] [address] from Last 3 Months or Most Recently Relevant to Health Maintenance Insurance [employer] Care Teams Format Proofreader Relationship Specialty Start Date End Date Ernie Noriega MD [address] [place] [phone] PCP - General Internal Medicine 08/25/19 [facility] 06/07/25
--- OUTSIDE RECORDS SUMMARY | 2025-07-06 17:11 | XMS_ITS | Clinical Summary ---
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 023 Active Advair Diskus 250-50 mcg/dose inhaler SMARTSI inhalation By Mouth Twice Daily 023 Active fluticasone propionate (FLONASE) 50 mcg/actuation nasal spray SMARTSI Odon(s) Both Nares Twice Daily 023 Active tamsulosin (FLOMAX) 0.4 mg capsule Take 0.4 mg by mouth once a day. 023 Active lidocaine (LIDODERM) 5% patch Apply 1 patch topically to the affected area once a day. 023 Active montelukast (SINGULAIR) 10 mg tablet Take 10 mg by mouth nightly. 023 Active hydroCHLOROthia zide (HYDRODIURIL) 25 mg tablet Take 25 mg by mouth daily. 022 Active omeprazole (PriLOSEC) 20 mg capsule Take 20 mg by mouth once a day. 023 Active zolpidem (AMBIEN) 10 mg tablet Take 10 mg by mouth nightly as needed for sleep. 05/29/2 023 Active gabapentin (NEURONTIN) 600 mg tablet Take 600 mg by mouth 3 times a day. Active Ventolin HFA 90 mcg/actuation inhaler PLEASE SEE ATTACHED FOR DETAILED DIRECTIONS Active bethanechol (URECHOLINE) 25 mg tablet SMARTSI Tablet(s) By Mouth 3 Times Daily Active bisacodyL (DULCOLAX) 10 mg suppository Insert 1 suppository (10 mg total) into the rectum daily as needed for constipation (no bowel movement x 48 hours). 10 suppository Active docusate sodium (COLACE) 100 mg capsule Take 1 capsule (100 mg total) by mouth 2 times a day. 10 capsule Active heparin 5,000 unit/mL subcutaneous injection Inject 1 mL (5,000 Units total) under the skin every 8 hours. 90 mL Active miconazole 2% powder Apply topically to the affected area 2 times a day. 71 g Active naloxone (NARCAN) 0.4 mg/mL injection Infuse 1 mL (0.4 mg total) intravenously every 2 hours as needed for opioid reversal or respiratory depression. 1 mL Active polyethylene glycol 3350 (MIRALAX) 17 gram packet Take 1 packet (17 g total) by mouth 2 times a day. Mix powder in 4 to 8 oz of water, juice, coffee, or tea prior to administration. 4 packet Active senna (SENOKOT) 8.6 mg tablet Take 1 tablet (8.6 mg total) by mouth nightly. 10 tablet Active methocarbamoL (ROBAXIN) 500 mg tablet Take 1 tablet (500 mg total) by mouth 4 times a day as needed for muscle spasms. 120 tablet [address] (CYMBALTA) 30 mg capsule Take 1 capsule (30 mg total) by mouth once a day. 30 capsule [address] (CYMBALTA) 30 mg capsule Take 1 capsule (30 mg total) by mouth once a day. 30 capsule 2 025 2024 Discontinued Active Problems Problem Noted Date [...] Encounters Date Type Department Care Team Description 07/05/2025 12:00 PM EDT Follow-Up [facility] [address] [place] [phone] Christopher Peres MD S/P fusion of thoracic spine (Primary Dx) 06/13/2025 Telephone [facility] [address] [place] [address] [phone] Christopher Peres MD 05/31/2025 Orders Only [facility] [address] [place] [address] [phone] Heidi Knott PA S/P fusion of thoracic spine (Primary Dx) 05/31/2025 Telephone [facility] [address] [place] [address] [phone] Christopher Peres MD 05/30/2025 2:30 PM EDT Follow-Up [facility] [address] [place] [phone] Fang Altamirano NP S/P fusion of thoracic spine (Primary Dx) 05/29/2025 Telephone [facility] [address] [place] [address] [phone] Fang Altamirano NP 05/12/2025 9:47 AM EDT Anesthesia Event [facility] Operating Room [address] [place] [address] [phone] Mu Vilchis MD He, Yifan MD 05/12/2025 7:05 AM EDT - 05/12/2025 9:35 PM EDT Surgery [facility] Operating Room [address] [place] [address] Christopher Peres MD FUSION, POSTERIOR, FOR SPINAL DEFORMITY, POSSIBLE CASTING, 7 TO 12 VERTEBRAL SEGMENTS [29673 (CPT )] 05/12/2025 5:58 AM EDT - 05/22/2025 2:42 PM EDT Hospital Encounter [facility] [address] [place] [address] Christopher Peres MD Discharge Disposition: Retirement Facility (03) 04/11/2025 myChart Message [facility] Operating Room [address] [place] [address] Mychart, [place] Provider Questionnaire Submission from Last 3 Months Family History Medical History Relation Name Comments Coronary artery disease Maternal Half-brother S/P cabg Liver cancer Maternal Half-brother Diabetes Maternal Half-sister Myocardial Infarction Mother Heart failure Mother's Brother PPM Relation Name Status Comments Father Maternal Half-brother Maternal Half-sister Alive Mother Mother's Brother Alive Social History Tobacco Use Types Packs/Day Years Used Date Smoking Tobacco: Former Cigarettes Q uit: 2003 Smokeless Tobacco: Never Tobacco Cessation:Counseling Given: Not [...] F) 07/05/2025 11:46 AM EDT Respiratory Rate 16 05/22/2025 12:0 0 PM EDT Oxygen Saturation 98% 07/05/2025 11: 46 AM EDT Inhaled Oxygen Concentration - - Weight 61.2 kg (135 lb) 05/01/2025 11:1 3 AM EDT Height 160 cm (5' 3 ) 05/01/2025 11:13 AM EDT unable to stand Body Mass Index 23.91 05/01/2025 11:13 AM EDT Plan of Treatment Upcoming Encounters Date Type Department Care Team (Late st Contact Info) Description 08/16/2025 1:15 PM EST Follow-Up [facility] [address] [place] [address] Christopher Peres MD [address] [place] [address] Health Maintenance Due Date Last Done Comments Cervical Cancer Screening 1963 Cologuard 1963 Controlled Substance Agreement 1963 HIV Screening 1965 HPV and Pap Smear 1963 Pap Smear 1963 Sigmoidoscopy 1963 RSV Vaccine (60+ years old and patients) (1 - Risk 60-74 years 1-dose series) 2023 Alcohol/Substance Use Screening 10/12/2024 Depression Screening and Follow-Up 10/12/2024 Social Drivers of Health Annual Screening 10/12/2024 Mammogram 12/23/2024 12/23/2022, 09/12, 09/10/2018 COVID-19 Vaccine ( season) 2025 07/16/2022, 08/28/2021, 02/22/2021, Additional history exists Influenza Vaccine (#1) 2025 , 07/21/2023, 07/16/2022, Additional history exists Basic Metabolic Panel 06/09/2026 06/09/2025 , 05/23/2025, 05/21/2025, Additional history exists FOBT / Fit Test 06/09/2026 06/09/2025 DTaP,Tdap,and Td Vaccines (3 - Td or Tdap) 04/04/2031 04/04/2021, 03/10/2014, 05/12/2012 Colon Cancer Screening 03/18/2034 Colonoscopy 03/18/2034 03/18/2024 Zoster Vaccines Completed 08/15/2020, 05/26/2020 Hepatitis C Screening Completed 11/07/2022 Pneumococcal Vaccine: 50+ Years Completed 05/13/2023, 11/12/2015, 05/12/2012 Hepatitis B Vaccines Aged Out No long er eligible based on patient's age to complete this topic Medical Devices Implanted Type Area Manager Floor Device Identifier Shelf Expiration Date Model / Serial / Lot Ruas Head And Ss For 5.5/6.0 Russell 2pk Implanted:Qty: 2 on 05/12/2025 by Christopher Peres MD at [facility] Implant N/A: Spine Lumbar Medtronic 04/28/2029 [id number] / / [id number] Ruas Head And Ss For 5.5/6.0 Russell Implanted:Qty: 2 on 05/12/2025 by Christopher Peres MD at [facility] Implant N/A: Spine Lumbar Medtronic 04/28/2029 [id number] / / [id number] Kit Bone Graft Large Infuse - [id number] Implanted:Qty: 1 on 05/12/2025 by Christopher Peres MD at [facility] Implant N/A: Spine Lumbar Medtronic 04/11/2026 [id number] / / [id number] Pyramesh Round 13mm X 70mm - [id number] Implanted:Qty: 1 on 05/12/2025 by Christopher Peres MD at [facility] Implant N/A: Spine Lumbar Medtronic [id number] / / 5.5-6.0 Biased Mas & Setscrew Implanted:Qty: 1 on 05/12/2025 by Christopher Peres MD at [facility] Implant N/A: Spine Lumbar Medtronic 07/14/2032 [id number] / / [id number] Connector Spinal Tl 5/6-5/6 Cd Horizon - [id number] Implanted:Qty: 3 on 05/12/2025 by Christopher Peres MD at [facility] Implant N/A: Spine Lumbar Medtronic 05/29/2031 [id number] / / [id number] Connector Spinal Tl 5/6-5/6 Cd Horizon - [id number] Implanted:Qty: 1 on 05/12/2025 by Christopher Peres MD at [facility] Implant N/A: Spine Lumbar Medtronic 11/21/2032 [id number] / / [id number] Screw Spinal Shank 6.9wwj08lf Ats Cd Horizon Modulex - [id number] Implanted:Qty: 4 on 05/12/2025 by Christopher Peres MD at [facility] Implant N/A: Spine Lumbar Medtronic [id number] / / Screw Spinal Shank Thread Ats 6.1ctm09ek Cd Horizon Modulex - [id number] Implanted:Qty: 4 on 05/12/2025 by Christopher Peres MD at [facility] Implant N/A: Spine Lumbar Medtronic [id number] / / Screw Spinal Shank Thread Ats 7.8aks76qi Cd Horizon Modulex - [id number] Implanted:Qty: 1 on 05/12/2025 by Christopher Peres MD at [facility] Implant N/A: Spine Lumbar Medtronic [id number] / / Russell Straight Long 5.6jhw683qc Solera - [id number] Implanted:Qty: 2 on 05/12/2025 by Christopher Peres MD at [facility] Implant N/A: Spine Lumbar Medtronic [id number] / / Patch Fibrin Sealant Pooled Human Plasma And Equine Collagen 4.8cmx4.8cm Tachosil - [id number] Implanted:Qty: 1 on 05/12/2025 by Christopher Peres MD at [facility] Implant N/A: Spine Lumbar [facility] 08/10/2027 [id number] / / [id number] Screw Spinal Shank Thread Ats 7.5mm X 45mm Cd Horizon Modulex - [id number] Implanted:Qty: 3 on 05/12/2025 by Christopher Peres MD at [facility] Screw N/A: Spine Lumbar Medtronic [id number] / / Screw Spinal Shank Thread Ats 7.1ixg48ul Cd Horizon Modulex - [id number] Implanted:Qty: 4 on 05/12/2025 by Christopher Peres MD at [facility] Screw N/A: Spine Lumbar Medtronic [id number] / / Modulex 10.5 X 100 Screw Implanted:Qty: 2 on 05/12/2025 by Christopher Peres MD at [facility] Screw N/A: Spine Lumbar Medtronic [id number] / / Screw Set Breakoff 5.5mm Titanium Cd Horizon - [id number] Implanted:Qty: 8 on 05/12/2025 by Christopher Peres MD at [facility] Screw N/A: Spine Lumbar Medtronic [id number] / / Graft Bone Demineralized Bone Matrix Fiber Inject 9cc [place] - [id number] - [id number] Implanted:Qty: 1 on 05/12/2025 by Christopher Peres MD at [facility] Tissue N/A: Spine Lumbar Medtronic 05/09/2026 [id number] / [id number] / Rmas Head And Ss For 5.5/6.0 Russell Implanted:Qty: 4 on 05/12/2025 by Christopher Peres MD at [facility] N/A: Spine Lumbar Medtronic 03/04/2029 [id number] / / [id number] Procedures * Due to [place] state law, this organization might not be [...] PREPARE RBC STAT 05/12/2025 10:13 AM EDT [place] OSTEOTOMY SPINE POSTERIOR 3 COLUMN LUMBAR 05/12/2025 9:22 AM EDT Other idiopathic scoliosis, thoracolumbar region Special Needs Xiao Souza, Tamera, medtronic, neuromonitoring, stealth, O arm, misonixReps aware 05/01Checked by Miesha Bae W[place] LAMINEC/FACETECT/FORA MIN,THORACIC 1 SEG 05/12/2025 9:22 AM EDT Other idiopathic scoliosis, thoracolumbar region Special Needs GeorgeoBeatricee, Tamera, medtronic, neuromonitoring, stealth, O arm, misonixReps aware 05/01Checked by Miesha Bae [place] LAMINEC/FACETECT/FORA MIN,EACH ADDNL 05/12/2025 9:22 AM EDT Other idiopathic scoliosis, thoracolumbar region Special Needs Xiao Souza, Tamera, medtronic, neuromonitoring, stealth, O arm, misonixReps aware 05/01Checked by Miesha Bae [place] LAMINEC/FACETECT/FORA MIN,LUMBAR 1 SEG 05/12/2025 9:22 AM EDT Other idiopathic scoliosis, thoracolumbar region Special Needs Xiao Souza, Tamera, medtronic, neuromonitoring, stealth, O arm, misonixReps aware 05/01Checked by Miesha Bae WY POSTERIOR SEGMENTAL INSTRUMENTATION 7-12 VRT SEG 05/12/2025 9:22 AM EDT Other idiopathic scoliosis, thoracolumbar region Special Needs Xiao Souza, Tamera, medtronic, neuromonitoring, stealth, O arm, misonixReps aware 05/01Checked by Miesha Bae WY ARTHRODESIS POSTERIOR SPINAL DEFORMITY UP 7-12 SEGMENTS 05/12/2025 9:22 AM EDT Other idiopathic scoliosis, thoracolumbar region Special Needs SchBeatrice whitakere, Tamera, medtronic, neuromonitoring, stealth, O arm, misonixReps aware 05/01Checked by Miesha Bae AN ARTERIAL LINE DUMMY PERFORMABLE Routine 05/12/2025 7:30 AM EDT [place] INSERT CATH,ART,PERCUT,SHORT TERM Routine 05/12/2025 7:30 AM [...] Idiopathic scoliosis of thoracolumbar region Preop testing from Last 3 Months Results * Due to [place] state law, this organization might not be sharing negative HIV tests. * X-Ray Scoliosis 2 Views (05/30/2025 4:28 PM EDT) Only the most recent of2 resultswithin the time period is included. Anatomical Region Laterality Modality Spine Computed Radiogr aphy 05/31/2025 9:19 PM EDT Addenda Addendum by Ambreen Infante MD on 06/19/2025 6:21 PM EDT Please disregard the previous report. Comparison 05/14/2025. Findings and impression: Scoliosis series AP view only. Numbering of the vertebral bodies is in keeping with the previous study dated 05/31/2025. Instrumented posterior spinal fusion with bilateral vertical rods and pedicular screws at the T10 through the sacrum and screws across the SI joints. Interbody fusion with graft at L4-5 and L5 and S1. An additional vertical rods from the upper lumbar region to the lower lumbar region no significant interval change. In the views available no significant change in the hardware or fractures of the hardware detected with certainty. Multilevel degenerative disc changes of the mid and the lower thoracic region more advanced in the lower thoracic region also degenerative changes of the lumbar interspaces. Postsurgical changes at C4-5 C5-6 no significant interval change. If this radiology report contains a blank impression section, it is an incomplete radiology report. Please contact the interpreting radiologist or applicable radiology division as soon as possible to obtain the completed interpretation. Workstation ID: [id number] Impressions 05/31/2025 9:25 PM EDT Findings and [...] to obtain the completed interpretation. Workstation ID: [id number] Narrative 05/31/2025 9:25 PM EDT Comparison 05/14/2025. Resulting Agency Comment [id number] Procedure Note Ambreen Infante MD - 05/31/2025 [...] possible to obtain thecompleted interpretation. Workstation ID: [id number] us Fang Altamirano SUPERVISOR BEET END IMG XR PROCEDURES Edited Result - Final * (ABNORMAL) CBC (05/21/2025 8:10 AM EDT) Only the most recent of10 resultswithin the time period is included. WBC 7.5 3.8 - 10.8 10*3/uL 05/21/2025 8:36 AM EDT [facility] RBC 2.87(L) 3.80 - 5.10 10*6/uL 05/21/2025 8:36 AM EDT [facility] Hemoglobin 8.2(L) 11.7 - 15.5 g/dL 05/21/2025 8:36 AM EDT [facility] Hematocrit 25.4(L) 35.0 - 45.0 % 05/21/2025 8:36 AM EDT [facility] MCV 88.5 80.0 - 100.0 fL 05/21/2025 8:36 AM EDT [facility] MCH 28.6 27.0 - 33.0 pg 05/21/2025 8:36 AM EDT [facility] MCHC 32.3 32.0 - 36.0 g/dL 05/21/2025 8:36 AM EDT [facility] RDW 14.9 11.0 - 15.0 % 05/21/2025 8:36 AM EDT [facility] Platelets 527(H) 140 - 400 10*3/uL 05/21/2025 8:36 AM EDT [facility] MPV 9.3 7.5 - 12.5 fL 05/21/2025 8:36 AM EDT [facility] Blood Structure of peripheral vein / Unknown Venipuncture / Unknown 05/21/2025 8:10 AM EDT 05/21/2025 8:28 AM EDT [employer] LAB BLOOD ORDERABLES Final Resu lt Performing Organization Address City/[facility]/ZIP Co de Phone Number [facility] [address] [place] [address], * Magnesium (05/21/2025 8:10 AM EDT) Only the most recent of8 resultswithin the time period is included. MG 2.1 1.6 - 2.4 mg/dL 05/21/2025 8:59 AM EDT [facility] Blood Structure of peripheral vein / Unknown Venipuncture / Unknown 05/21/2025 8:10 AM EDT 05/21/2025 8:27 AM EDT [facility] LAB BLOOD ORDERABLES Final Resu lt Performing Organization Address City/[facility]/ZIP Co de Phone Number [facility] [address] [place] [address], * (ABNORMAL) Basic metabolic panel (05/21/2025 8:10 AM EDT) Only the most recent of11 resultswithin the time period is included. NA 139 135 - 145 mmol/L 05/21/2025 8:59 AM EDT [facility] K 3.6 3.5 - 5.3 mmol/L 05/21/2025 8:59 AM EDT [facility] Cl 101 98 - 107 mmol/L 05/21/2025 8:59 AM EDT [employer] CO2 26 22 - 32 mmol/L 05/21/2025 8:59 AM EDT [facility] BUN 14 7 - 23 mg/dL 05/21/2025 8:59 AM EDT [facility] [employer] Creatinine 0.47(L) 0.50 - 1.20 mg/dL 05/21/2025 8:59 AM EDT [facility] [employer] [facility] Glucose 119(H) 65 - 99 mg/dL 05/21/2025 8:59 AM EDT [facility] [employer] Calcium 8.7 8.6 - 10.5 mg/dL 05/21/2025 8:59 AM EDT [facility] Anion Gap 12 5 - 15 05/21/2025 8:59 AM EDT [facility] eGFR >90 >=60 mL/min/1 .73m2 05/21/2025 8:59 AM EDT [facility] Comment:The estimated glomer ular [...] WILDER LAB BLOOD ORDERABLES Final Resu lt [facility] [employer] [address] [place] [address], [place] * Phosphorus (05/18/2025 6:13 AM EDT) Only the most recent of5 resultswithin the time period is included. Phosphorus 4.2 2.5 - 4.5 mg/dL 05/18/2025 7:05 AM EDT [facility] Blood Structure of peripheral vein / Unknown Venipuncture / Unknown 05/18/2025 6:13 AM EDT 05/18/2025 6:36 AM EDT us Leida WILDER LAB BLOOD ORDERABLES Final Resu lt [facility] [address] [place] [address], [place] * X-Ray Thoracolumbar Spine 2 Views (05/14/2025 4:40 PM EDT) Anatomical Region Laterality Modality Spine, T-spine, L-spine Computed Radiography 05/14/2025 4:42 PM EDT Impressions 05/14/2025 4:50 PM EDT FINDINGS/IMPRESSION: There is transitional anatomy. For purposes of this report to be consistent the prior CT from 03/04/2025, there is lumbarization of S1 first nonrib-bearing lumbar-type vertebral bodies denoted L1. Large rnmvu-je-bwyz imaging precludes fine osseous and soft tissue [...] to obtain the completed interpretation. Workstation ID: [id number] Narrative 05/14/2025 4:50 PM EDT COMPARISON: Scoliosis series from 06/14/2025. Resulting Agency Comment [id number] Procedure Note Stone Reid MD - 05/14/2025 COMPARISON: Scoliosis series from 06/14/2025. IMPRESSION: FINDINGS/IMPRESSION: There is transitional anatomy. For purposes of this report to beconsistent the prior CT from 03/04/2025, there is lumbarization of J5vnomi nonrib-bearing lumbar-type vertebral bodies denoted L1. Large nfmcz-xa-olax imaging precludes fine osseous and soft tissueevaluation. Images were obtained for biometric analysis. Status post posterior decompression and posterior instrumented spinalfusion of T11 to the sacroiliac joints. Prior interbody fusions of L4-L5,L5-S1, and S1-S2. There is a new surgical device projecting over the Y7utihssyfa body. Expected immediate postsurgical changes within theposterior [...] possible to obtain thecompleted interpretation. Workstation ID: [id number] us Christopher Peres MD IMG XR PROCEDURES Final Res ult * (ABNORMAL) CBC Auto Differential (05/13/2025 4:50 AM EDT) WBC 8.6 3.8 - 10.8 10*3/uL 05/13/2025 5:19 AM EDT [facility] [employer] [facility] RBC 3.53(L) 3.80 - 5.10 10*6/uL 05/13/2025 5:19 AM EDT [facility] Hemoglobin 9.9(L) 11.7 - 15.5 g/dL 05/13/2025 5:19 AM EDT [facility] [employer] [facility] Hematocrit 30.3(L) 35.0 - 45.0 % 05/13/2025 5:19 AM EDT [facility] [employer] [facility] MCV 85.8 80.0 - 100.0 fL 05/13/2025 5:19 AM EDT [facility] [employer] [facility] MCH 28.0 27.0 - 33.0 pg 05/13/2025 5:19 AM EDT [facility] [employer] [facility] MCHC 32.7 32.0 - 36.0 g/dL 05/13/2025 5:19 AM EDT [facility] [employer] [facility] RDW 14.7 11.0 - 15.0 % 05/13/2025 5:19 AM EDT [facility] Platelets 162 140 - 400 10*3/uL 05/13/2025 5:19 AM EDT [facility] [employer] [employer] [facility] MPV 9.8 7.5 - 12.5 fL 05/13/2025 5:19 AM EDT [employer] [facility] Neutrophil % 88.7 % 05/13/2025 5:19 AM EDT [facility] [employer] [facility] Immature Grans % 0.5 0.0 - 0.9 % 05/13/2025 5:19 AM EDT [facility] Lymphocyte % 6.6 % 05/13/2025 5:19 AM EDT [facility] Monocyte % 3.9 % 05/13/2025 5:19 AM EDT [facility] [employer] [facility] Eosinophil % 0.2 % 05/13/2025 5:19 AM EDT [facility] [employer] [facility] Basophil % 0.1 % 05/13/2025 5:19 AM EDT [facility] Neutrophil # 7.65 1.50 - 7.80 10*3/uL 05/13/2025 5:19 AM EDT [facility] Immature Grans # 0.04(H) <=0.03 10*3/uL 05/13/2025 5:19 AM EDT [facility] Lymphocyte # 0.60(L) 0.85 - 3.90 10*3/uL 05/13/2025 5:19 AM EDT [facility] Monocyte # 0.30 0.20 - 0.95 10*3/uL 05/13/2025 5:19 AM EDT [facility] Eosinophil # <0.03 0.02 - 0.50 10*3/uL 05/13/2025 5:19 AM EDT [facility] Basophil # <0.03 0.00 - 0.20 10*3/uL 05/13/2025 5:19 AM EDT [facility] nRBC % 0.0 /100 WBCs 05/13/2025 5:19 AM EDT [facility] nRBC # <0.01 <0.01 10*3/uL 05/13/2025 5:19 AM EDT [facility] Blood Structure of peripheral vein / Unknown Venipuncture / Unknown 05/13/2025 4:50 AM EDT 05/13/2025 5:09 AM EDT Christopher Peres MD LAB BLOOD ORDERABLES Final Result Performing Organization Address [facility] Co de Phone Number [facility] [address] [place] [address], [place] * (ABNORMAL) POCT Glucose, interfaced (05/12/2025 8:02 PM EDT) Glucose, POCT 128(H) 70 - 99 mg/dL 05/12/2025 8:04 PM EDT [facility] Comment: The block sealer has not determined the efficacy of this test in Critically ill patients. [facility] defines Critically ill patients for the purpose [...] DEVIC E Final Result Performing Organization Address [facility] Co de Phone Number [facility] [address] [place] [address], [place] * Smear Review (05/12/2025 8:01 PM EDT) Platelet Estimate Adequate Adequate 05/12/2025 9:01 PM EDT [facility] RBC Morphology Normal Normal, No clinically significant RBC morphology present (ICSH guidelines, 2015). 05/12/2025 9:01 PM EDT [facility] LAB[facility] Blood Structure of peripheral vein / Unknown Venipuncture / Unknown 05/12/2025 8:01 PM EDT 05/12/2025 8:16 PM EDT Christopher Peres MD LAB BLOOD ORDERABLES Final Result [id number] [facility] [facility] CLINICAL PATHOLOGY LABORATORY [address] [place] [address], [place] * Clinician: Transfuse Plasma (05/12/2025 6:32 [...] FLUOROSCOPY PROCEDURES Final Result Performing Organization Address City/[facility]/ZIP Co de Phone Number IMAGING * (ABNORMAL) POCT I-STAT Chemistry Panel W/ABG, interfaced (05/12/2025 6:27 PM EDT) Only the most recent of6 resultswithin the time period is included. Sample Type, POCT Arterial 05/12/2025 10:00 PM EDT [facility] Sodium, POCT 144 135 - 145 mmol/L 05/12/2025 10:00 PM EDT [facility] Potassium, POCT 3.5 3.5 - 5.3 mmol/L 05/12/2025 10:00 PM EDT [facility] Glucose, POCT 126(H) 70 - 99 mg/dL 05/12/2025 10:00 PM EDT [facility] iCA, POCT 4.5(L) 4.6 - 5.3 mg/dL 05/12/2025 10:00 PM EDT [facility] HCT, POCT 28(L) 37 - 42 % 05/12/2025 10:00 PM EDT [facility] pH, POCT 7.38 7.35 - 7.45 05/12/2025 10:00 PM EDT [facility] pCO2, POCT 35.4 35 - 45 mmHg 05/12/2025 10:00 PM EDT [facility] pO2, POCT 213(H) 80 - 105 mmHg 05/12/2025 10:00 PM EDT [facility] Base Excess, POCT -5(L) 0 - 3 mmol/L 05/12/2025 10:00 PM EDT [facility] HCO3, POCT 20.7(L) 21 - 28 mmol/L 05/12/2025 10:00 PM EDT [facility] TCO2, POCT 22(L) 23 - 27 mmol/L 05/12/2025 10:00 PM EDT [facility] Saturated O2, POCT 100(H) 95 - 98 % 05/12/2025 10:00 PM EDT [facility] FIO2, POCT 50 % 05/12/2025 10:00 PM EDT [facility] Tidal Volume, POCT 450 ml 05/12/2025 10:00 PM EDT [facility] Mason's Test, POCT N/A 05/12/2025 10:00 PM EDT [facility] Blood 05/12/2025 6:27 PM EDT 05/12/2025 10:00 PM EDT [facility] - 05/12/2025 10:00 PM EDT i-STAT analyzer cannot determine presence of hemolysis in sample us Christopher Peres MD LAB POCT ORDERABLES - DEVIC E Final Result [facility] [address] [place] [address], [place] * XR L-Spine 1 vw (05/12/2025 [...] to obtain the completed interpretation. Workstation ID: [id number] Narrative 05/12/2025 6:57 PM EDT COMPARISON: 03/14/2025 Resulting Agency Comment [id number] Procedure Note Parth Villareal MD - 05/12/2025 [...] possible to obtain thecompleted interpretation. Workstation ID: [id number] Christopher Peres MD IMG XR PROCEDURES Final Res ult * Blood Bank: Prepare Plasma Transfusion Indications: Intraoperative Hemostatic Defect: 2 Units (05/12/2025 5:05 PM EDT) Only the most recent of2 resultswithin the time period is included. Product Code Q4704F43 [facility] Unit Number [id number] [facility] Unit ABO O [facility] Unit RH POS [facility] Dispense Status Presumed Transfuse [facility] Blood Expiration Date [facility] Blood Type Barcode 5100 [facility] Dispensed Volume 213 ML [facility] Product Code S1903G27 [facility] Unit Number [id number] [facility] Unit ABO O [facility] Unit RH POS [facility] Dispense Status /Released [facility] Blood Expiration Date [id number] [facility] Blood Type Barcode 5100 [facility] Dispensed Volume 222 ML [facility] 05/12/2025 5:05 PM EDT us Thalia Ford MD BLOOD BANK PRODUCT ORDERABLES Final Result Performing Organization Address City/[facility]/ZIP Co de Phone Number [facility] [address] [place] [address], [place] [phone] * POCT TEG6 GLOBAL HEMOSTASIS W/LYSIS, interfaced (05/12/2025 5:01 PM EDT) Citrated Kaolin Reaction Time, POCT 6.2 4.6 - 9.1 min 05/12/2025 6:02 PM EDT [facility] Citrated Kaolin Lysis, POCT 0.0 0.0 - 2.6 % 05/12/2025 6:02 PM EDT [facility] Citrated RapidTEG Max Amplitude, POCT 61.2 52.0 - 70.0 mm 05/12/2025 6:02 PM EDT [facility] Citrated Functional Fibrinogen Max Amplitude, POCT 17.9 15.0 - 32.0 mm 05/12/2025 6:02 PM EDT [facility] Blood 05/12/2025 5:01 PM EDT 05/12/2025 6:02 PM EDT us Christopher Peres MD LAB POCT ORDERABLES - DEVIC E Final Result [facility] [address] [place] [address], [place] * Blood Bank: Prepare Red Blood Cells Transfusion indications: Active blood loss; Irradiated?: No; Special requirements: Leukoreduced: 2 Units (05/12/2025 4:49 PM EDT) Only the most recent of3 resultswithin the time period is included. Product Code T0998P84 [facility] Unit Number [id number] [facility] IN[facility] Unit ABO O [facility] IN[facility] Unit RH POS [facility] IN[facility] Crossmatch Compatible [facility] INFCE Dispense Status /Released [facility] Blood Expiration Date [id number] [facility] Blood Type Barcode 5100 [facility] Dispensed Volume 330 ML [facility] Product Code Q3526T68 [facility] Unit Number [id number] [facility]LO[facility] Unit ABO O [facility]LO[facility] INF[facility] Unit RH POS UU BLOOD BANK INFCE Crossmatch Compatible UU BLOOD BANK INFCE Dispense Status /Released [facility] Blood Expiration Date [id number] [facility] Blood Type Barcode 5100 [facility] Dispensed Volume 300 ML [facility] IN[facility] Other 05/12/2025 4:49 PM EDT 05/01/2025 2:13 PM EDT us Thalia Ford MD BLOOD BANK PRODUCT ORDERABLES Final Result [facility] [address] [place] [address], * Clinician: Transfuse Red Blood Cells (05/12/2025 4:45 PM EDT) Only the most recent of4 resultswithin the time period is included. us Thalia Ford MD BLOOD TRANSFUSION ORDERABLES F inal Result * (ABNORMAL) POCT Hemoglobin, interfaced (05/12/2025 4:21 PM EDT) Only the most recent of5 resultswithin the time period is included. Hemoglobin, POCT 9.7(L) 12.0 - 16.0 g/dL 05/13/2025 6:19 AM EDT [facility] Blood 05/12/2025 4:21 PM EDT 05/13/2025 6:19 AM EDT us Christopher Peres MD LAB POCT ORDERABLES - DEVIC E Final Result [facility] [address] [place] [address], [place] * [place] INSERT CATH,ART,PERCUT,SHORTTERM, AN ARTERIAL LINE DUMMY PERFORMABLE [...] performed Procedure Detail: Ultrasound #1 Probe: Linear [id number] Catheter Size: 20 G Catheter Length: 4.45 [...] EKG Atrial Rate 57 BPM MUSE EKG W[place] Interval 154 ms MUSE EKG QRS Interval 98 ms MUSE EKG QT Interval 408 ms MUSE EKG QTC Interval 397 ms MUSE EKG P [place] -14 degrees MUSE EKG R [place] 18 degrees MUSE EKG T Wave [place] 30 degrees MUSE EKG 05/01/2025 11:2 9 [...] (2993) on 05/02/2025 1:07:04 PM Miriam Bai SUPERVISOR BEET END ECG ORDERABLES Final Re sult Performing Organization Address City/[facility]/ZIP Co de Phone Number MUSE EKG * PTT (05/01/2025 11:08 AM EDT) aPTT 28.5 23.0 - 32.0 Seconds 05/01/2025 12:47 PM EDT [facility] CLINICAL PATHOLOGY LABORATORY Comment: Current PTT reagent is not sensitive to detect all Lupus Anticoagulant (LA) Inhibitor Cases. If a LA is suspected, please order a Lupus Anticoagulation w/ Reflex Test which is performed at [facility] in [place], [place]. Blood Structure of peripheral vein / Unknown Venipuncture / Unknown 05/01/2025 11:08 AM EDT 05/01/2025 12:25 PM EDT Miriam Bai NP LAB BLOOD ORDERABLES Fin al Result Performing Organization Address City/[facility]/ZIP Co de Phone Number [facility] CLINICAL PATHOLOGY LABORATORY [address] [place] [address], * Type and Screen (05/01/2025 11:08 AM [...] 11:08 AM EDT 05/01/2025 2:13 PM EDT Miriam Bai SUPERVISOR BEET END LAB BLOOD BANK TEST ANTWON VARGAS Final Result [facility] [address] [place] [address], [place] [phone] from Last 3 Months Insurance [facility] Advance Directives Documents on File Type Date Recorded Patient Shield Operator Expl anation Health Care Proxy 05/12/2025 6:38 AM * Full Code (Latest Code Status on File) Date Activated Date Inactivated Comments 05/12/2025 7:40 PM 05/22/2025 4:48 PM Care Teams Cork Painter And Grader Relationship Specialty Start Date End Date Ernie Merritt [address] [place] [address] PCP - General Internal Medicine 11/29/24
--- OUTSIDE RECORDS SUMMARY | 2025-07-06 17:12 | XMS_ITS | Encounter Summary ---
Author Organization [employer] Address [address] [facility] 7t [place] [address] Care Team Providers Care Paid Search Analyst Name Role Phone Ernie Noriega MD Primary Care Provide r Reason for Visit * Reason Onset Date Comments Referral 05/26/2025 Encounter Details Date Type Department Care Team ([facility] st Contact Info) Description 05/26/2025 Telephone [facility] MED[facility] [address] [place] [address] Ernie Noriega MD [address] [place] [address] Referral Social History Tobacco Use Types Packs/Day [...] for patients right shoulder Contact pt at [phone] ([place]) documented in this encounter Plan of Treatment Upcoming Encounters Date Type Department Care Team (Late st Contact Info) Description 09/26/2025 3:00 PM EST Office Visit [facility] [address] [place] [address] Ernie Noriega MD [address] [place] [address] documented as of this encounter Visit Diagnoses Not on filedocumented in this encounter Additional Health Concerns Assessment Noted Time PHQ-9 Depression Total Score: 4 01/13/20 25 2:57 PM EDT documented as of this encounter Care Teams Paid Search Analyst Relationship Specialty Start Date End Date Ernie Noriega MD [address] [place] [address] PCP - General Internal Medicine 08/25/19 Jesus LENZ 05/25/25 06/13/25 Jesus LENZ 05/25/25 06/19/25 Elida LENZ 06/07/25 documented as of this encounter
--- OUTSIDE RECORDS SUMMARY | 2025-07-06 17:12 | XMS_ITS | Encounter Summary ---
Author Organization [employer] Address [address] [facility] 7[address] [place] [address] Care Team Providers Care Supermarket Manager Name Role Phone Ernei Noriega MD Primary Care Provide r Reason for Visit * Reason Onset Date Comments Med Refill 09/18/2023 Encounter Details Date Type Department Care Team ([facility] st Contact Info) Description 09/18/2023 Telephone [facility] [address] [place] [address] Ernie Noriega MD [address] [place], [place] [phone] Med Refill Social History Tobacco Use Types [...] to [facility]/pharmacy #[id number] - [place], [place] - [address] [place] [address] documented in this encounter Plan of Treatment Upcoming Encounters Date Type Department Care Team (Late st Contact Info) Description 09/26/2025 3:00 PM EST Office Visit [facility] [address] [place], [place] [phone] Ernie Noriega MD [address] [place] [address] documented as of this encounter Visit Diagnoses Not on filedocumented in this encounter Additional Health Concerns Assessment Noted Time PHQ-9 Depression Total Score: 0 12/02/19 23 2:38 PM EST documented as of this encounter Care Teams Supermarket Manager Relationship Specialty Start Date End Date Ernie Noriega MD [address] [place], [place] [phone] PCP - General Internal Medicine 08/25/19 [facility] 03/31/25 05/25/25 [facility] 05/25/25 06/13/25 [facility] 05/25/25 06/19/25 Elida LENZ 06/07/25 documented as of this encounter
--- OUTSIDE RECORDS SUMMARY | 2025-07-06 17:12 | XMS_ITS | Encounter Summary ---
Author Organization [employer] Address [address] [place] [address] 7t [place] [address] Care Team Providers Care Air Value Tester Name Role Phone Ernie Noriega MD Primary Care Provide r Reason for Visit * Reason Onset Date Comments Medication Question 10/03/2022 returning call 10/03/2022 Encounter Details Date Type Department Care Team ([facility] st Contact Info) Description 10/03/2022 Telephone [facility] [address] [place] [address] Ernie Noriega MD [address] [place] [address] Medication Question; returning call Social History Tobacco [...] pt returning call Please contact pt at [phone] * Telephone Encounter - Peg Scott RN - 10/10/2022 11:17 AM EST T/C placed to pt x2AM re below message. No answer, left v/m. Will retask to [facility] nurses for third attempt. * Telephone Encounter - Peg Scott RN - 10/08/2022 3:32 PM EST Incoming T/C from Sylvia CAMARILLO from [facility]. She states spoke with PITCH WORKER who saw pt 09/24. It is not in the OV note (which is located in Epic under Media tab) but that pt reported pain during appt and PITCH WORKER advised pt speak to her PCP and [...] next month with PCP. Will send to [place] [facility] to attempt second call. [place] sending to PCP as FYI. * Telephone Encounter - Peg Scott RN - 10/08/2022 10:34 AM EST Reviewed most recent note from [facility]. No [...] calling to inform was told by her [facility] Physicians DR to request [...] Description 09/26/2025 3:00 PM EST Office Visit [facility] [address] [facility] [place] [address] Ernie Noriega MD [address] [place] [address] documented as of this encounter Visit Diagnoses Not on filedocumented in this encounter Care Teams Air Value Tester Relationship Specialty Start Date End Date Ernie Noriega MD [address] [facility] [place] [address] PCP - General Internal Medicine 08/25/19 [facility] 03/31/25 05/25/25 [facility] 05/25/25 06/13/25 [facility] 05/25/25 06/19/25 [facility] 06/07/25 documented as of this encounter
--- OUTSIDE RECORDS SUMMARY | 2025-07-06 17:12 | XMS_ITS | Encounter Summary ---
Author Organization [employer] Address [address] 7t [place] [address] Care Team Providers Care Client Strategist Name Role Phone Ernie Noriega MD Primary Care Provide r Reason for Visit * Reason Onset Date Comments Med Refill 09/18/2023 Encounter Details Date Type Department Care Team (Late st Contact Info) Description 09/18/2023 Refill [facility] [address] [place] [address] Ernie Noriega MD [address] [place] [address] Chronic midline low back pain without sciatica; [...] 3:00 PM EST Office Visit [facility] [address] [place] [address] Ernie Noriega MD [address] [place] [address] documented as of this encounter Visit Diagnoses Diagnosis Chronic midline low back pain without sciatica Cervical radiculopathy Brachial neuritis or radiculitis nos documented in this encounter Additional Health Concerns Assessment Noted Time PHQ-9 Depression Total Score: 0 12/02/19 23 2:38 PM EST documented as of this encounter Care Teams Client Strategist Relationship Specialty Start Date End Date Ernie Noriega MD [address] [place] [address] PCP - General Internal Medicine 08/25/19 [facility] 03/31/25 05/25/25 [facility] 05/25/25 06/13/25 [facility] 05/25/25 06/19/25 [facility] 06/07/25 documented as of this encounter
--- OUTSIDE RECORDS SUMMARY | 2025-07-06 17:12 | XMS_ITS | Encounter Summary ---
Author Organization [employer] Address [address] [place] [address] Care Team Providers Care Trademark Affixer Name Role Phone Ernie Noriega MD Primary Care Provide r Reason for Visit * Reason Onset Date Comments Med Refill Referral 12/10/2022 Patient walked i n requesting for referral to a neurologist. It is difficult for her to walk and do her [place] activities. Pt has had [facility] go to her house for therapy, but it has not made any improvements. Encounter Details Date Type Department Care Team (Late st Contact Info) Description 12/10/2022 Refill [facility] [address] [place], [place] [phone] Ernie Noriega MD [address] [place], [place] [phone] Pain Social History Tobacco Use Types Packs/Day [...] do her [place] activities. Pt has had [facility] go to her house for therapy, but it has not made any improvements. documented in this encounter Plan of Treatment Upcoming Encounters Date Type Department Care Team (Late st Contact Info) Description 09/26/2025 3:00 PM EST Office Visit [facility] [address] [place] [address] Ernie Noriega MD [address] [place] [address] documented as of this encounter Visit Diagnoses Diagnosis Pain Generalized pain documented in this encounter Additional Health Concerns Assessment Noted Time PHQ-9 Depression Total Score: 0 12/02/19 2:38 PM EST documented as of this encounter Care Teams Trademark Affixer Relationship Specialty Start Date End Date Ernie Noriega MD [address] [place] [address] PCP - General Internal Medicine 08/25/19 [facility] 03/31/25 05/25/25 [facility] 05/25/25 06/13/25 [facility] 05/25/25 06/19/25 [facility] 06/07/25 documented as of this encounter
--- OUTSIDE RECORDS SUMMARY | 2025-07-06 17:12 | XMS_ITS | Encounter Summary ---
Author Organization [employer] Address [address] [place] [address] 7t [place] [address] Care Team Providers Care Safety And Health Manager Name Role Phone Ernie Noriega MD Primary Care Provide r Reason for Visit * Reason Onset Date Comments verbal order 11/21/2022 Encounter Details Date Type Department Care Team (Late st Contact Info) Description 11/21/2022 Telephone [facility] [address] [place] [address] Ernie Noriega MD [address] [place] [address] verbal order Social History Tobacco Use Types [...] 1:08 PM EST Tc from Baldemar from [facility] calling to inform pt started home services today . Baldemar is also requesting a verbal order for pt to start physical therapy for 2x a week for 4 weeks . Best contact # [phone]. documented in this encounter Plan of Treatment Upcoming Encounters Date Type Department Care Team (Late st Contact Info) Description 09/26/2025 3:00 PM EST Office Visit [facility] [address] [place] [address] Ernie Noriega MD [address] [place] [address] documented as of this encounter Visit Diagnoses Not on filedocumented in this encounter Care Teams Safety And Health Manager Relationship Specialty Start Date End Date Ernie Noriega MD [facility] [place] [address] PCP - General Internal Medicine 08/25/19 [facility] 03/31/25 05/25/25 [facility] 05/25/25 06/13/25 [facility] 05/25/25 06/19/25 [facility] 06/07/25 documented as of this encounter
--- OUTSIDE RECORDS SUMMARY | 2025-07-06 17:12 | XMS_ITS | Encounter Summary ---
Author Organization [facility] Address [address] [place] [address] 7t [place] [address] Care Team Providers Care Clean In Places Operator Name Role Phone Ernie Noriega MD Primary Care Provide r Encounter Details Date Type Department Care Team (Late st Contact Info) Description 10/03/2022 Orders Only [facility] [address] [place] [id number] Suha Alexander, RN Social History Tobacco Use [...] Description 09/26/2025 3:00 PM EST Office Visit [facility] [address] [place] [address] Ernie Noriega MD [address] [place] [address] documented as of this encounter Visit Diagnoses Not on filedocumented in this encounter Care Teams Clean In Places Operator Relationship Specialty Start Date End Date Ernie Noriega MD [address] [place] [phone] PCP - General Internal Medicine 08/25/19 [facility] 03/31/25 05/25/25 [facility] 05/25/25 06/13/25 [facility] 05/25/25 06/19/25 [facility] 06/07/25 documented as of this encounter
--- OUTSIDE RECORDS SUMMARY | 2025-07-06 17:12 | XMS_ITS | Encounter Summary ---
Author Organization [employer] Address [address] [facility] [address] [place] [address] Care Team Providers Care Merchandising Intern Name Role Phone Ernie Noriega MD Primary Care Provide r Reason for Visit * Reason Comments Med Refill Encounter Details Date Type Department Care Team ([facility] st Contact Info) Description 12/25/2023 Refill [facility] [address] [place] [address] Ernie Noriega MD [address] [place], [place] [phone] Pain; Primary hypertension; Seasonal allergies Social History [...] 3:00 PM EST Office Visit [facility] [address] [place] [address] Ernie Noriega MD [address] [place] [address] documented as of this encounter Visit Diagnoses Diagnosis Pain Generalized pain Primary hypertension Unspecified essential hypertension Seasonal allergies Allergic rhinitis, cause unspecified documented in this encounter Additional Health Concerns Assessment Noted Time PHQ-9 Depression Total Score: 0 12/02/19 23 2:38 PM EST documented as of this encounter Care Teams Merchandising Intern Relationship Specialty Start Date End Date Ernie Noriega MD [address] [place] [address] PCP - General Internal Medicine 08/25/19 [facility] 03/31/25 05/25/25 [facility] 05/25/25 06/13/25 [facility] 05/25/25 06/19/25 [facility] 06/07/25 documented as of this encounter
--- OUTSIDE RECORDS SUMMARY | 2025-07-06 17:12 | XMS_ITS | Encounter Summary ---
Author Organization [facility] Address [address] [place] [address] Care Team Providers Care Professor Of Finance Name Role Phone Ernie Merritt Primary Care Provider + Encounter Details Date Type Department Care Team (Late st Contact Info) Description 04/11/[address] [employer] Message [facility] Operating Room [address] [place], [place] [phone] Automated Insights, Generic Provider [address] [place], [place] [phone] Questionnaire Submission Social History Tobacco Use Types [...] Info) Description 08/16/2025 1:15 PM EST Follow-Up [facility] [address] [place] [address] Christopher Peres MD [address] [place], [place] [phone] documented as of this encounter Visit Diagnoses Not on filedocumented in this encounter Care Teams Professor Of Finance Relationship Specialty Start Date End Date Ernie Merritt [address] [place] [address] PCP - General Internal Medicine 11/29/24 documented as of this encounter
--- OUTSIDE RECORDS SUMMARY | 2025-07-06 17:12 | XMS_ITS | Encounter Summary ---
Author Organization [employer] Address [address] [place] [address] 7t [place] [address] Care Team Providers Care Sales Department Supervisor Name Role Phone Ernie Noriega MD Primary Care Provide r Encounter Details Date Type Department Care Team ([facility] Contact Info) Description 12/09/2022 Orders Only [facility] [address] [place] [phone] Suha Alexander, RN Social History Tobacco Use [...] Upcoming Encounters Date Type Department Care Team ([facility] Contact Info) Description 09/26/2025 3:00 PM EST Office Visit [facility] [address] [place] [address] Ernie Noriega MD [address] [place] [phone] documented as of this encounter Procedures Procedure Name Priority Date/Time Associated Diagnosis Comments BI MAMMOGRAM SCREENING TOMOSYNTHESIS BILATERAL Routine 12/23/2022 11:35 AM EDT documented in this encounter Results * BI Mammogram Screening Tomosynthesis Bilateral (12/23/2022 11:35 AM EDT) Anatomical Region Laterality Modality Breast Bilateral Mammography 12/23/2022 11:3 5 AM EDT Narrative 12/24/2022 5:15 PM EDT [facility] [address] [place] [address] Mammography Report Signed Patient: Miguelina Watson MR#: [id number] : 1965 Acct:[id number] Age/Sex: 57 / F ADM Date: 12/23/22 Loc: [facility] Attending Dr: Ernie Merritt MD Ordering Physician: Ernie Merritt MD Resu lts: 1Negative Date of Service: 12/23/22 Follow Up: 1 Year From Orig ina Mammogram Procedure(s): MM tomosynthesis screening BI Accession Number(s): [id number] cc: Ernie Merritt MD EXAMINATION: MM SCREENING [...] in OV> 12/24/22 1712 DD/ 1135 TD/TT: Salesperson [employer]: SK Procedure Note Donotuseinterpreter, Image - 12/24/2022 [facility] [address] [place], [place] [address] Mammography Report Signed Patient: Miguelina Watson#: [id number] : 1965Acct:[id number] Age/Sex: 57 / FADM Date: 12/23/22 Loc: HO.MAMMO Attending Dr: Ernie Merritt MD Ordering Physician: Ernie Merritt MDResu lts: 1Negative Date of Service: 12/23/22Follow Up: 1 Year From Orig inal Mammogram Procedure(s): MM tomosynthesis screening BI Accession Number(s): [id number] cc: Ernie Merritt MD EXAMINATION: MM SCREENING [...] in OV> 12/24/22 1712 DD/ 1135 TD/TT: Salesperson [employer]: [facility] External Provider IMG BI PROCEDURES Edited Result - Final documented in this encounter Visit Diagnoses Not on filedocumented in this encounter Additional Health Concerns Assessment Noted Time PHQ-9 Depression Total Score: 0 12/02/19 23 2:38 PM EST documented as of this encounter Care Teams Sales Department Supervisor Relationship Specialty Start Date End Date Ernie Noriega MD [address] [place] [address] PCP - General Internal Medicine 08/25/19 [facility] 03/31/25 05/25/25 [facility] 05/25/25 06/13/25 [facility] 05/25/25 06/19/25 [facility] 06/07/25 documented as of this encounter
--- OUTSIDE RECORDS SUMMARY | 2025-07-06 17:12 | XMS_ITS | Encounter Summary ---
Author Organization [employer] Address [address] [facility] 7t [place] [address] Care Team Providers Care Health Facilities Surveyor Name Role Phone Ernie Noriega MD Primary Care Provide r Reason for Visit * Reason Comments Med Refill Encounter Details Date Type Department Care Team ([facility] Contact Info) Description 10/11/2023 Refill [facility] [address] [place] [address] Ernie Noriega MD 230 [place], [place] [phone] Social History Tobacco Use Types Packs/Day Years [...] Description 09/26/2025 3:00 PM EST Office Visit [facility] [address] [place] [address] Ernie Noriega MD [address] [place] [address] documented as of this encounter Visit Diagnoses Not on filedocumented in this encounter Additional Health Concerns Assessment Noted Time PHQ-9 Depression Total Score: 0 12/02/19 23 2:38 PM EST documented as of this encounter Care Teams Health Facilities Surveyor Relationship Specialty Start Date End Date Ernie Noriega MD [address] [place] [address] PCP - General Internal Medicine 08/25/19 [facility] 03/31/25 05/25/25 [facility] 05/25/25 06/13/25 [facility] 05/25/25 06/19/25 [facility] 06/07/25 documented as of this encounter
== END 2025-07-06 12:15 | disposition home or self-care (01) ==
LOC: HO.HHCX 12:14
PROVIDERS: Visit Provider Internal Medicine
DX: M25.511 Pain in right shoulder (principal)
CPT/HCPCS: 73030

== ENCOUNTER → 2025-07-06 12:15 | Outpatient (BNV) | payer MEDICAID, SELFPAY | PROVIDERS: Visit Provider Radiology Diagnostic Radiology | DX: M19.011 Primary osteoarthritis, right shoulder (principal) | CPT/HCPCS: 73030 ==

== ENCOUNTER 2025-08-04 13:49 | Outpatient (AMB) | payer MEDICAID, SELFPAY ==
--- OUTSIDE RECORDS SUMMARY | 2024-02-03 04:40 | XMS_ITS ---
Author Organization [facility] Address [address] [place] [address] Care Team Providers Care Hot Plate Plywood Press Feeder Name Role Phone Milton Ro MD, Ernie Primary Care Provide Rodrick Rose [phone] REASON FOR VISIT screening Encounters Encounter Location Date Provider Diagnosis [facility] [place] [address] [place], [place] [id number] 02/03/2024 Rodrick Millan Plan Of Treatment No Information Progress Notes * ISHMAEL HINOJOSADOB: 3 (60 yo F)Acc No.[id number]:02/03/2024 COLON WITH MAC Patient: ISHMAEL PORTILLO Provider: Dane Millan MD :1965 A ge:58 Y S ex:Female Date:02/03/2024 Address:[address] [place] [address] [id number] Pcp:Ernie bonilla MD Subjective: * Chief Complaints: * 1 . Screening. * Medical History: Objective: * Vitals: Assessment: Plan: * Treatment: * * The named appointment provid er may or may not be the originator of this progress note, and it is not deemed complete until electronically signed by the appointment provider. Sign off status: Pending * Provider: Dane Millan MD Date: 0 02/03/2024 Generated for Printi ng/Faxing/eTransmitting on: 1 03:50 PM EDT
--- OUTSIDE RECORDS SUMMARY | 2024-03-18 03:30 | XMS_ITS ---
Author Organization [facility] Address [address] [place] [address] Care Team Providers Care Rn Imaging Name Role Phone Milton Ro MD, [facility] Primary Care Provide r Rodrick Juarez Unavailable [phone] REASON FOR VISIT screening Problems Problem Type SNOMED Code ICD Code Onset Dates Problem Status W/U Status Risk Notes Problem Diverticular disease of colon (869536518) Diverticulosis of large intestine without perforation or abscess without bleeding (K57.30) Active confirmed Encounters Encounter Location Date Provider Diagnosis [facility] [place] Out[place] [address] [place], [place] [phone] 03/18/2024 Rodrick Millan Encounter for scre ening [...] * ISHMAEL HINOJOSADOB: 3 (60 yo F)Acc No.[id number]:03/18/2024 COLON WITH MAC Patient: Dane SALVADOR ISHMAEL Provider: Dane Millan MD :1965 A ge:58 Y S ex:Female Date:03/18/2024 Address:[address] [place] [address] [place], [id number] Pcp:Ernie bonilla MD Subjective: * Chief Complaints: [...] MD Date: 0 03/18/2024 Generated for Landon westbrook/Jean-Paul/Edilsonsmitting on: 1 03:51 PM EDT
--- NOTE | 2025-08-04 13:55 | MHC.OFFVIS ---
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 The voiding dysfunction was previously evaluated in April, with symptoms including urinary urgency and hesitancy. The patient was prescribed Flomax (tamsulosin) 0.4 mg daily. The patient reported that taking the medication twice a day resulted in adverse effects, such as nocturnal enuresis. She found that using Bethanechol, twice daily was more effective in managing her symptoms without causing significant side effects. Plan - Continue Bethanechol twice daily as it effectively manages symptoms without significant side effects. - Discontinue tamsulosin due to adverse effects such as nocturnal enuresis. - Schedule follow-up in nine months to reassess symptoms and treatment efficacy. 04/27/25-- LV--- 08/05/24 --Miguelina is a 59-year-old female who presents today to the office for a follow-up. warehouseman declined. Patient's interprets for her today. She is followed for lower urinary tract symptoms of voiding dysfunction, hesitancy, urgency and slowing of urinary stream. Comorbidity chronic low back pain.? History of back surgery several years ago.She has been on Flomax 0.4 mg daily to bid, She was on bethanechol in the past which was d/c'd. Urinalysis nitrite positive. I will send urine for culture. The patient states she is having to push more to urinate I will restart bethanechol 25 mg t.i.d.. Antibiotic sent to pharmacy pending urine culture. Continue tamsulosin b.i.d. 08/05/24--Miguelina is a 59-year-old female who presents today to the office for a follow-up. She is followed today for voiding dysfunction and incomplete bladder emptying. She has been on Flomax 0.4 mg daily to bid, She was on bethanechol in the past which has been d/c'd. Patient states that she goes to bathroom frequently during the day time, and infrequently she may leak urine. She does consume 3 cups of coffee and she is on HCTZ diuretic medication. I discussed with the patient that this will contribute her going more frequently to the bathroom. I discussed to avoid dietary bladder irritants to help with her symptoms of urinary urgency. Comorbidity chronic low back pain.? History of back surgery several years ago. h/o lead placement trial for a back stimulator that was unsuccessful --she had significant pain after the lead was placed so it was removed has been on tramadol and gabapentin for pain. previous discussion regarding causes for her voiding dysfunction may be multifactorial; Nerve related, bladder muscle hypo contractility versus bladder outlet dysfunction. Tx options discussed included pelvic floor physical therapy.? [facility] Medical History Right-sided ischial pain Tubular adenoma of colon Hematuria Dysuria Overweight Varicose vein of leg Chronic tension-type headache, not intractable Neuropathic pain Hyperlipidemia Carpal tunnel syndrome Cervical radiculopathy Depressive disorder Diverticulosis HTN (hypertension) Osteoarthritis Asthma Essential hypertension Low back pain Pre-diabetes Seasonal allergies GERD (gastroesophageal reflux disease) Post-COVID syndrome COPD (chronic obstructive pulmonary disease) Arthritis Anxiety Depression Hesitancy of micturition Moderate persistent asthma Surgical History History of carpal tunnel release Hx of eye surgery Hx of cataract extraction Hx of shoulder surgery History of carpal tunnel surgery of right wrist H/O colonoscopy History of total right knee replacement History of back surgery History of total left knee replacement (~06/2020) Family History Mother Heart disease Sister HTN (hypertension) Sister HTN (hypertension) Diabetes Maternal Grandmother Cervical cancer Social History Household Members: Spouse Housing: House Are you a primary manager intensive care unit to a significant other at home: No Do you presently have visiting nurse or other home services: No Alcohol intake: never Comment: in bathroom, aware of trip hazard Patient Tobacco Use Status: Former Tobacco user Tobacco use type: Cigarette Second Hand Smoke Exposure: No Substance Use Type: Marijuana Advance Directives Date on File: 12/17/21 service: No Current occupational status: unemployed Current occupation: Right Handed Gender identity: Female Office Procedures Post Void Residual Post Residual Void Post Void Residual (PVR): [id number] Void Residual by ultrasound Assessment & Plan Assessment & Plan (1) Voiding dysfunction: Code(s): N39.8 - Other specified disorders of urinary system Category: Medical (2) Hesitancy of micturition: Code(s): R39.11 - Hesitancy of micturition Category: Medical Plan Plan - Continue Bethanechol twice daily as it effectively manages symptoms without significant side effects. - Discontinue tamsulosin due to adverse effects such as nocturnal enuresis. - Schedule follow-up in nine months to reassess symptoms and treatment efficacy. Orders: Orders AMB Post Void Residual by ultrasound 08/04/25 R39.198 - Other difficulties with micturition Medications: Discontinued tamsulosin Discontinued Reason: Doctor's Order 0.4 mg PO DAILY@1700 90 days 90 caps 0RF Patient Instructions: The patient had an opportunity to ask questions regarding treatment plan. The patient expressed understanding and agreement with the above treatment plan. The patient is aware they should contact our office by phone for worsening of their current condition or the appearance of new symptoms. Compliance is encouraged with any medications and followup testing that is ordered. It is a privilege to be allowed the opportunity to participate in the urologic care of your patient. If you have any questions or concerns regarding treatment for the above conditions please do not hesitate to contact me. The office telephone contact is [phone]. This note is constructed in part using voice recognition software. While every effort has been made to ensure accuracy lump receiver errors may have been included. Yours sincerely, Charissa Hurd MD Scribe Plan - Not visible on output: Patient was informed and verbally consented to the use of an ambient scribe for clinic note documentation during this visit. Coding Level of Care Code Complex visit Add On G2211 Diagnoses Voiding dysfunction N39.8 Hesitancy of micturition R39.11 CPT Codes Post Residual Void - PVR CPT Code: 50244-Sobo Void Residual by ultrasound ([id number])
--- OUTSIDE RECORDS SUMMARY | 2025-08-04 15:50 | XMS_ITS | Encounter Summary ---
Author Organization [employer] Address [address] [facility] 7t [place] [address] Care Team Providers Care Photogrammetric Surveyor Name Role Phone Ernie Noriega MD Primary Care Provide r Reason for Visit * Reason Onset Date Comments Med Refill 01/26/2024 Encounter Details Date Type Department Care Team (Late st Contact Info) Description 01/26/2024 Refill [facility] [address] [place] [address] Ilsa Robison, ANP [address] [place] [address] Chronic midline low back pain without sciatica; [...] Care Team (Late st Contact Info) Description 09/01/2025 9:00 AM EST Clinical Support [facility] [address] [place] [address] 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, MARQUISE [address] [place] [address] 09/26/2025 3:00 PM EST Office Visit [facility] [address] [place] [phone] Ernie Noriega MD [address] [place] [address] documented as of this encounter Visit Diagnoses Diagnosis Chronic midline low back pain without sciatica Cervical radiculopathy Brachial neuritis or radiculitis nos documented in this encounter Additional Health Concerns Assessment Noted Time PHQ-9 Depression Total Score: 2 01/21/20 24 1:25 PM EDT documented as of this encounter Care Teams Photogrammetric Surveyor Relationship Specialty Start Date End Date Ernie Noriega MD [address] [place] [address] PCP - General Internal Medicine 08/25/19 [facility] 03/31/25 05/25/25 [facility] 05/25/25 06/13/25 [facility] 05/25/25 06/19/25 [facility] 06/07/25 documented as of this encounter
--- OUTSIDE RECORDS SUMMARY | 2025-08-04 15:50 | XMS_ITS | Encounter Summary ---
Author Organization [employer] Address [address] [facility] 7t [place] [address] Care Team Providers Care Board Lining Machine Operator Name Role Phone Ernie Noriega MD Primary Care Provide r Reason for Visit * Reason Onset Date Comments Med Refill 09/28/2024 Encounter Details Date Type Department Care Team (Late st Contact Info) Description 09/28/2024 Refill [facility] [address] [place] [address] Ernie Noriega MD 230 [place] [address] Chronic midline low back pain without sciatica; [...] Description 09/01/2025 9:00 AM EST Clinical Support [facility] [address] [place] [address] 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 RN 505 [place] [address] 09/26/2025 3:00 PM EST Office Visit [facility] [address] [place] [address] Ernie Noriega MD [address] [place] [address] documented as of this encounter Visit Diagnoses Diagnosis Chronic midline low back pain without sciatica Cervical radiculopathy Brachial neuritis or radiculitis nos documented in this encounter Additional Health Concerns Assessment Noted Time PHQ-9 Depression Total Score: 2 01/21/20 24 1:25 PM EDT documented as of this encounter Care Teams Board Lining Machine Operator Relationship Specialty Start Date End Date Ernie Noriega MD [address] [place] [address] PCP - General Internal Medicine 08/25/19 [facility] 03/31/25 05/25/25 [facility] 05/25/25 06/13/25 [facility] 05/25/25 06/19/25 [facility] 06/07/25 documented as of this encounter
--- OUTSIDE RECORDS SUMMARY | 2025-08-04 15:50 | XMS_ITS | Encounter Summary ---
Author Organization [employer] Address [address] [facility] 7t [place] [address] Care Team Providers Care Government Affairs Manager Name Role Phone Ernie Noriega MD Primary Care Provide r Reason for Visit * Reason Onset Date Comments Med Refill 08/12/2024 Encounter Details Date Type Department Care Team (Late st Contact Info) Description 08/12/2024 Refill [facility] [address] [place] [address] Ilsa Robison, ANP [address] [place] [address] Primary osteoarthritis of knee, unspecified laterality Social [...] Description 09/01/2025 9:00 AM EST Clinical Support [facility] [address] [place] [address] 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 RN 505 [place] [address] 09/26/2025 3:00 PM EST Office Visit [facility] [address] [place] [address] Ernie Noriega MD [address] [place] [address] documented as of this encounter Visit Diagnoses Diagnosis Primary osteoarthritis of knee, unspecified laterality documented in this encounter Additional Health Concerns Assessment Noted Time PHQ-9 Depression Total Score: 2 01/21/20 24 1:25 PM EDT documented as of this encounter Care Teams Government Affairs Manager Relationship Specialty Start Date End Date Ernie Noriega MD [address] [place] [address] PCP - General Internal Medicine 08/25/19 [facility] 03/31/25 05/25/25 [facility] 05/25/25 06/13/25 [facility] 05/25/25 06/19/25 [facility] 06/07/25 documented as of this encounter
--- OUTSIDE RECORDS SUMMARY | 2025-08-04 15:50 | XMS_ITS | Encounter Summary ---
Author Organization [employer] Address [address] [facility] 7t [place] [address] Care Team Providers Care Skirt Trimmer Name Role Phone Ernie Noriega MD Primary Care Provide r Reason for Visit * Reason Onset Date Comments Med Refill 11/07/2024 Encounter Details Date Type Department Care Team (Late st Contact Info) Description 11/07/2024 Refill [facility] [address] [place] [address] Ernie Noriega MD 230 [place], [place] [phone] Chronic midline low back pain without sciatica [...] Description 09/01/2025 9:00 AM EST Clinical Support [facility] [address] [place] [address] 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 RN 505 [place] [address] 09/26/2025 3:00 PM EST Office Visit [facility] [address] [place] [address] Ernie Noriega MD [address] [place] [address] documented as of this encounter Visit Diagnoses Diagnosis Chronic midline low back pain without sciatica documented in this encounter Additional Health Concerns Assessment Noted Time PHQ-9 Depression Total Score: 2 01/21/20 24 1:25 PM EDT documented as of this encounter Care Teams Skirt Trimmer Relationship Specialty Start Date End Date Ernie Noriega MD [address] [place] [address] PCP - General Internal Medicine 08/25/19 [place] 03/31/25 05/25/25 [facility] 05/25/25 06/13/25 [facility] 05/25/25 06/19/25 [facility] 06/07/25 documented as of this encounter
--- OUTSIDE RECORDS SUMMARY | 2025-08-04 15:50 | XMS_ITS | Encounter Summary ---
Author Organization [email or web address] Address [address] [facility] 7t [place] [address] Care Team Providers Care Health Care Technician Name Role Phone Ernie Noriega MD Primary Care Provide r Reason for Visit * Reason Onset Date Comments Med Refill 10/13/2024 Encounter Details Date Type Department Care Team (Late st Contact Info) Description 10/13/2024 Refill [facility] 230 [place] [address] Ernie Noriega MD 230 [place], [place] [phone] Chronic midline low back pain without sciatica [...] Description 09/01/2025 9:00 AM EST Clinical Support [facility] [address] [place] [address] 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 RN 505 [place] [address] 09/26/2025 3:00 PM EST Office Visit [facility] [address] [place] [address] Ernie Noriega MD [address] [place] [address] documented as of this encounter Visit Diagnoses Diagnosis Chronic midline low back pain without sciatica documented in this encounter Additional Health Concerns Assessment Noted Time PHQ-9 Depression Total Score: 2 01/21/20 24 1:25 PM EDT documented as of this encounter Care Teams Health Care Technician Relationship Specialty Start Date End Date Ernie Noriega MD [address] [place] [address] PCP - General Internal Medicine 08/25/19 [facility] 03/31/25 05/25/25 [facility] 05/25/25 06/13/25 [facility] 05/25/25 06/19/25 [facility] 06/07/25 documented as of this encounter
--- OUTSIDE RECORDS SUMMARY | 2025-08-04 15:50 | XMS_ITS | Encounter Summary ---
Author Organization [employer] Address [address] [facility] 7t [place] [address] Care Team Providers Care Quality Technician Fiberglass Name Role Phone Ernie Noriega MD Primary Care Provide r Reason for Visit * Reason Onset Date Comments Referral 04/18/2025 Encounter Details Date Type Department Care Team ([facility] st Contact Info) Description 04/18/2025 Telephone [facility] [address] [place] [address] Ernie Noriega MD 230 [place] [address] Referral Social History Tobacco Use Types Packs/Day [...] would like to [facility] [place] [address]. If any questions you can contact pt at [phone] documented in this encounter Plan of Treatment Upcoming Encounters Date Type Department Care Team ([facility] st Contact Info) Description 09/01/2025 9:00 AM EST Clinical Support [facility] [address] [place] [phone] 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 RN 505 [place] [address] 09/26/2025 3:00 PM EST Office Visit [facility] [address] [place] [address] Ernie Noriega MD [address] [place] [address] documented as of this encounter Visit Diagnoses Not on filedocumented in this encounter Additional Health Concerns Assessment Noted Time PHQ-9 Depression Total Score: 4 01/13/20 2:57 PM EDT documented as of this encounter Care Teams Quality Technician Fiberglass Relationship Specialty Start Date End Date Ernie Noriega MD 230 [facility] [place] [address] PCP - General Internal Medicine 08/25/19 [facility] 03/31/25 05/25/25 [facility] 05/25/25 06/13/25 [facility] 05/25/25 06/19/25 [facility] 06/07/25 documented as of this encounter
--- OUTSIDE RECORDS SUMMARY | 2025-08-04 15:50 | XMS_ITS | Patient Health Record ---
Author Organization [facility] Address [address] [place] [address] Care Team Providers Care Guide Excursion Name Role Phone Milton Ro MD, Ernie Primary Care Provide r Unavailable Rodrick Millan Unavailable [phone] Allergies No Known Allergies Reason For Referral No Information Medications Medication SIG (Take, Route, Frequency, Duration) Notes Start Date End Date Status diphenhydrAMINE HCl 25 MG 1 capsule at bedtime as needed Orally Once a day; Duration: 30 day(s) Active Escitalopram Oxalate 5 MG 1 tablet Orall y Once a day; Duration: 30 day(s) Active Albuterol Sulfate HFA 108 (9 0 Base) MCG/ACT 1 puff as needed Inhalation every 4 hrs Active Dykjipfqyh-Gxhtvsj-Wzkdhaqu 50-325-40 MG 1 capsule as needed Orally every 4 hrs Active Montelukast Sodium 10 MG 1 tablet Orally Once a day; Duration: 30 day(s) Active Nabumetone 750 MG as directed Orally Active Diclofenac Potassium 50 MG 1 tablet with food or milk as needed Orally Twice a day Not-Taking hydroCHLOROthiazide 25 MG 1 tablet in morning Orally Once a day; Duration: 30 day(s) Active Lidocaine 5 % 1 patch remove after 12 hours Externally Once a day Active Fluticasone Furoate 50 MCG/ACT 1 puff Inhalation Once a day Active Dulcolax (colon prep) 5 MG take at 3:00 p.m and 7:00p.m. Orally two tablets twice a day for one day; Duration: 1 day 08/12/2023 Active Gabapentin 600 MG 1 tablet Orally Once a day; Duration: 30 day(s) Active Fluticasone Propionate (Inhal) 250 MCG/ACT 1 puff Inhalation Twice a day Active Triamcinolone Acetonide 0.1% Active Zolpidem Tartrate 10 MG 1 tablet at bedt nithin as needed Orally Once a day Active buPROPion HCl 100mg Active Claritin 10mg Active Omeprazole 20 MG 1 capsule 30 minutes before morning meal Orally Once a day; Duration: 30 day(s) Active Zolpidem & Diet Manage Prod 10mg Active Tamsulosin HCl 0.4 MG 1 capsule Orally Once a day; Duration: 30 day(s) Active clonazePAM 0.5mg Act nayla [...] at 5:00 p.m. the day before the procedure; Duration: 1 day 08/12/2023 Active Problems Problem Type SNOMED Code ICD Code Onset Dates Problem Status W/U Status Risk Notes Problem Colon cancer screening (434171797) Colon cancer screening (Z12.11) Active confirmed Problem Diverticular disease of colon (682395032) Diverticulosis of large intestine without perforation or abscess without bleeding (K57.30) Active confirmed Problem Preprocedural examination (364828353014284) Preprocedural examination (Z01.818) Active confirmed Problem [facility] current use of non-steroidal anti-inflammatory drug (221009242031325) Encounter for long-term (current) use of NSAIDs (Z79.1) Active confirmed Plan Of Treatment Pending Test Test Name Order Date Pathology 03/18/2024 Future Test Test Name Order Date COLONOSCOPY 03/24/2013 COLONOSCOPY 08/11/2023 Insurance Providers Payer Name Payer Address Payer Phone Subscriber Number Group Number Insured Name Patient Relationship to Insured Coverage Start Date Coverage End Date [place] [address] [place] [phone] [id number] ISHMAEL HINOJOSA Self - patient is the insured Medical (General) History Medical History History ICD Code Denies [place],DM,CVA,renal disease Asthma Depression/anxiety Hypertension Negative screening colonoscopy in 06/2013 Arthritis/Body aches Surgical History Surgery Date(Month/Year) Back surgery for disc disease Bilateral carpal tunnel Left shoulder C-spine disc surgery Bilateral knee replacements Might be having a left shoulder replacem ent as of the 07/2023 OV
--- OUTSIDE RECORDS SUMMARY | 2025-08-04 15:50 | XMS_ITS | Encounter Summary ---
Author Organization [employer] Address [address] [facility] 7t [place] [address] Care Team Providers Care Bedspread Folder Name Role Phone Ernie Noriega MD Primary Care Provide r Encounter Details Date Type Department Care Team (Late st Contact Info) Description 02/18/2023 Abstract [facility] [address] [place] [address] Ernie Noriega MD 230 [place] [address] Social History Tobacco Use Types Packs/Day Years [...] Description 09/01/2025 9:00 AM EST Clinical Support [facility] [address] [place] [address] 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 RN 505 [place] [address] 09/26/2025 3:00 PM EST Office Visit [facility] 230 [place] [address] Ernie Noriega MD 230 [facility] [place] [address] documented as of this encounter Procedures Procedure [...] documented as of this encounter Care Teams Bedspread Folder Relationship Specialty Start Date End Date Ernie [place] [address] PCP - General Internal Medicine 08/25/19 [facility] 03/31/25 05/25/25 [facility] 05/25/25 06/13/25 [facility] 05/25/25 06/19/25 [facility] 06/07/25 documented as of this encounter
--- OUTSIDE RECORDS SUMMARY | 2025-08-04 15:50 | XMS_ITS | Encounter Summary ---
Author Organization [employer] Address 75 [facility] 7t [place] [address] Care Team Providers Care Manufacturing Systems Engineer Name Role Phone Ernie Noriega MD Primary Care Provide r Reason for Visit * Reason Onset Date Comments Med Refill 04/24/2024 Encounter Details Date Type Department Care Team (Late st Contact Info) Description 04/24/2024 Refill [facility] 230 [place] [address] Ernie Noriega MD 230 [place] [address] Essential hypertension Social History Tobacco Use Types [...] Description 09/01/2025 9:00 AM EST Clinical Support [facility] [address] [place] [address] 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 RN 505 [place] [address] 09/26/2025 3:00 PM EST Office Visit [facility] [address] [place] [address] Ernie Noriega MD [address] [place] [address] documented as of this encounter Visit Diagnoses Diagnosis Essential hypertension Unspecified essential hypertension documented in this encounter Additional Health Concerns Assessment Noted Time PHQ-9 Depression Total Score: 2 01/21/20 24 1:25 PM EDT documented as of this encounter Care Teams Manufacturing Systems Engineer Relationship Specialty Start Date End Date Ernie Noriega MD [address] [place] [address] PCP - General Internal Medicine 08/25/19 [facility] 03/31/25 05/25/25 [facility] 05/25/25 06/13/25 [facility] 05/25/25 06/19/25 [facility] 06/07/25 documented as of this encounter
--- OUTSIDE RECORDS SUMMARY | 2025-08-04 15:50 | XMS_ITS | Encounter Summary ---
Author Organization [employer] Address 75 [facility] 7t [place] [address] Care Team Providers Care Branch Logistics Supervisor Name Role Phone Ernie Noriega MD Primary Care Provide r Reason for Visit * Reason Onset Date Comments Med Refill 09/28/2024 Encounter Details Date Type Department Care Team (Late st Contact Info) Description 09/28/2024 Refill [facility] 230 [place] [address] Ernie Noriega MD 230 [place] [address] Primary osteoarthritis of knee, unspecified laterality Social [...] Clinical Support [facility] [address] [place] [address] 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, MARQUISE 505 [place] [address] 09/26/2025 3:00 PM EST Office Visit [facility] [address] [place] [address] Ernie Noriega MD [address] [place] [address] documented as of this encounter Visit Diagnoses Diagnosis Primary osteoarthritis of knee, unspecified laterality documented in this encounter Additional Health Concerns Assessment Noted Time PHQ-9 Depression Total Score: 2 01/21/20 24 1:25 PM EDT documented as of this encounter Care Teams Branch Logistics Supervisor Relationship Specialty Start Date End Date Ernie Noriega MD [address] [place] [address] PCP - General Internal Medicine 08/25/19 [facility] 03/31/25 05/25/25 [facility] 05/25/25 06/13/25 [facility] 05/25/25 06/19/25 [facility] 06/07/25 documented as of this encounter
--- OUTSIDE RECORDS SUMMARY | 2025-08-04 15:50 | XMS_ITS | Encounter Summary ---
Author Organization [employer] Address 75 [facility] 7t [place] [address] Care Team Providers Care Perinatal Educator Name Role Phone Ernie Noriega MD Primary Care Provide r Reason for Visit * Reason Comments Med Refill Encounter Details Date Type Department Care Team ([facility] Contact Info) Description 04/11/2025 Refill [facility] 230 [place] [address] Ofelia Melgar MD 230 [place] [address] Social History Tobacco Use Types Packs/Day Years [...] Description 09/01/2025 9:00 AM EST Clinical Support [facility]INE [address] [place] [address] 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 RN 505 [place] [address] 09/26/2025 3:00 PM EST Office Visit [facility] [address] [place] [address] Ernie Noriega MD [address] [place] [address] documented as of this encounter Visit Diagnoses Not on filedocumented in this encounter Additional Health Concerns Assessment Noted Time PHQ-9 Depression Total Score: 4 01/13/20 2:57 PM EDT documented as of this encounter Care Teams Perinatal Educator Relationship Specialty Start Date End Date Ernie Noriega MD [address] [place] [address] PCP - General Internal Medicine 08/25/19 [facility] 03/31/25 05/25/25 [facility] 05/25/25 06/13/25 [facility] 05/25/25 06/19/25 [facility] 06/07/25 documented as of this encounter
--- OUTSIDE RECORDS SUMMARY | 2025-08-04 15:50 | XMS_ITS | Encounter Summary ---
Author Organization [employer] Address 75 [facility] 7t [place] [address] Care Team Providers Care Statistician Applied Name Role Phone Ernie Noriega MD Primary Care Provide r Encounter Details Date Type Department Care Team (Late st Contact Info) Description 03/09/2025 Orders Only [facility] [address] [employer], [place] [phone] ProviderNeville MD Social History Tobacco Use Types [...] Description 09/01/2025 9:00 AM EST Clinical Support [address] [address] 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 RN 505 [place] [address] 09/26/2025 3:00 PM EST Office Visit [facility] [address] [place] [address] Ernie Noriega MD [address] [place] [address] documented as of this encounter Procedures Procedure [...] as of this encounter Care Teams Statistician Applied Relationship Specialty Start Date End Date Ernie Noriega MD [address] [place] [address] PCP - General Internal Medicine 08/25/19 [facility] 03/31/25 05/25/25 [facility]LLYA 05/25/25 06/13/25 [facility] 05/25/25 06/19/25 [facility] 06/07/25 documented as of this encounter
--- OUTSIDE RECORDS SUMMARY | 2025-08-04 15:50 | XMS_ITS | Encounter Summary ---
Author Organization [employer] Address 75 [facility] 7t [place] [address] Care Team Providers Care Outside Machinist Apprentice Name Role Phone Ernie Noriega MD Primary Care Provide r Reason for Visit * Reason Onset Date Comments Med Refill 04/16/2024 Encounter Details Date Type Department Care Team (Late st Contact Info) Description 04/16/2024 Refill [facility] 230 [place] [address] Ernie Noriega MD 230 [place] [address] Essential hypertension Social History Tobacco Use Types [...] Description 09/01/2025 9:00 AM EST Clinical Support [facility] [address] [place] [address] 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 RN 505 [place] [address] 09/26/2025 3:00 PM EST Office Visit [facility] [address] [place] [address] Ernie Noriega MD [address] [place] [address] documented as of this encounter Visit Diagnoses Diagnosis Essential hypertension Unspecified essential hypertension documented in this encounter Additional Health Concerns Assessment Noted Time PHQ-9 Depression Total Score: 2 01/21/20 24 1:25 PM EDT documented as of this encounter Care Teams Outside Machinist Apprentice Relationship Specialty Start Date End Date Ernie Noriega MD [address] [place] [address] PCP - General Internal Medicine 08/25/19 [facility] 03/31/25 05/25/25 [facility] 05/25/25 06/13/25 [facility] 05/25/25 06/19/25 [facility] 06/07/25 documented as of this encounter
--- OUTSIDE RECORDS SUMMARY | 2025-08-04 15:50 | XMS_ITS | Encounter Summary ---
Author Organization [employer] Address 75 [facility] 7t [place] [address] Care Team Providers Care Feed Preparation Operator Name Role Phone Ernie Noriega MD Primary Care Provide r Reason for Visit * Reason Comments Med Refill Encounter Details Date Type Department Care Team ([facility] st Contact Info) Description 08/10/2023 Refill [facility] 230 [place] [address] Ernie Noriega MD 230 [place] [address] Primary osteoarthritis of knee, unspecified laterality; Chronic [...] Description 09/01/2025 9:00 AM EST Clinical Support [facility] [address] [place] [address] 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 RN 505 [place] [address] 09/26/2025 3:00 PM EST Office Visit [facility] [address] [place] [address] Ernie Noriega MD [address] [place] [address] documented as of this encounter Visit Diagnoses Diagnosis Primary osteoarthritis of knee, unspecified laterality Chronic midline low back pain without sciatica Cervical radiculopathy Brachial neuritis or radiculitis nos Pain Generalized pain documented in this encounter Additional Health Concerns Assessment Noted Time PHQ-9 Depression Total Score: 0 12/02/19 23 2:38 PM EST documented as of this encounter Care Teams Feed Preparation Operator Relationship Specialty Start Date End Date Ernie Noriega MD [address] [place] [address] PCP - General Internal Medicine 08/25/19 [facility] 03/31/25 05/25/25 [facility] 05/25/25 06/13/25 [facility] 05/25/25 06/19/25 [facility] 06/07/25 documented as of this encounter
--- OUTSIDE RECORDS SUMMARY | 2025-08-04 15:50 | XMS_ITS | Encounter Summary ---
Author Organization [employer] Address 75 [facility] 7t [place] [address] Care Team Providers Care Foundry Metallurgist Name Role Phone Ernie Noriega MD Primary Care Provide r Reason for Visit * Reason Onset Date Comments Med Refill 06/26/2025 Encounter Details Date Type Department Care Team (Late st Contact Info) Description 06/26/2025 Refill [facility] 230 [place] [address] Ernie Noriega MD 230 [place] [address] Chronic midline low back pain without sciatica [...] Description 09/01/2025 9:00 AM EST Clinical Support [facility] [address] [place] [address] 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 RN 505 [place] [address] 09/26/2025 3:00 PM EST Office Visit [facility] [address] [place] [address] Ernie Noriega MD [address] [place] [address] documented as of this encounter Visit Diagnoses Diagnosis Chronic midline low back pain without sciatica documented in this encounter Additional Health Concerns Assessment Noted Time PHQ-9 Depression Total Score: 4 01/13/20 25 2:57 PM EDT documented as of this encounter Care Teams Foundry Metallurgist Relationship Specialty Start Date End Date Ernie Noriega MD [address] [place] [address] PCP - General Internal Medicine 08/25/19 [facility] A 06/07/25 documented as of this encounter
--- OUTSIDE RECORDS SUMMARY | 2025-08-04 15:50 | XMS_ITS | Encounter Summary ---
Author Organization [employer] Address 75 [facility] 7t [place] [address] Care Team Providers Care Veterinary Technician Instructor Name Role Phone Ernie Noriega MD Primary Care Provide r Reason for Visit * Reason Onset Date Comments Med Refill 10/25/2024 Encounter Details Date Type Department Care Team (Late st Contact Info) Description 10/25/2024 Refill [facility] 230 [place] [address] Ernie Noriega MD 230 [place] [address] Chronic midline low back pain without sciatica [...] Description 09/01/2025 9:00 AM EST Clinical Support [facility] [address] [place] [address] 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 RN 505 [place] [address] 09/26/2025 3:00 PM EST Office Visit [facility] [address] [place] [address] Ernie Noriega MD [address] [place] [address] documented as of this encounter Visit Diagnoses Diagnosis Chronic midline low back pain without sciatica documented in this encounter Additional Health Concerns Assessment Noted Time PHQ-9 Depression Total Score: 2 01/21/20 24 1:25 PM EDT documented as of this encounter Care Teams Veterinary Technician Instructor Relationship Specialty Start Date End Date Ernie Noriega MD [address] [place] [address] PCP - General Internal Medicine 08/25/19 [facility] 03/31/25 05/25/25 [facility] 05/25/25 06/13/25 [facility] 05/25/25 06/19/25 [facility] 06/07/25 documented as of this encounter
--- OUTSIDE RECORDS SUMMARY | 2025-08-04 15:50 | XMS_ITS | Encounter Summary ---
Author Organization [employer] Address [address] [facility] 7t [place] [address] Care Team Providers Care Multi Disciplined Language Analyst Name Role Phone Ernie Noriega MD Primary Care Provide r Reason for Visit * Reason Comments Med Refill Encounter Details Date Type Department Care Team ([facility] st Contact Info) Description 07/28/2024 Refill [facility] 230 [place] [address] Ernie Noriega MD 230 [place], [place] [phone] Primary osteoarthritis of knee, unspecified laterality Social [...] Description 09/01/2025 9:00 AM EST Clinical Support [facility] [address] [place] [address] 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 RN 505 [place] [address] 09/26/2025 3:00 PM EST Office Visit [facility] [address] [place] [address] Ernie Noriega MD [address] [place] [address] documented as of this encounter Visit Diagnoses Diagnosis Primary osteoarthritis of knee, unspecified laterality documented in this encounter Additional Health Concerns Assessment Noted Time PHQ-9 Depression Total Score: 2 01/21/20 24 1:25 PM EDT documented as of this encounter Care Teams Multi Disciplined Language Analyst Relationship Specialty Start Date End Date Ernie Noriega MD [address] [place] [address] PCP - General Internal Medicine 08/25/19 [facility] 03/31/25 05/25/25 [facility] 05/25/25 06/13/25 [facility] 05/25/25 06/19/25 [facility] 06/07/25 documented as of this encounter
--- OUTSIDE RECORDS SUMMARY | 2025-08-04 15:50 | XMS_ITS | Encounter Summary ---
Author Organization [facility] Address [address] [place] [address] Care Team Providers Care Base Ply Hand Name Role Phone Ernie Merritt Primary Care Provider + Encounter Details Date Type Department Care Team (Late st Contact Info) Description 08/01/2025 Telephone [facility] [address] [place] [address] Fang Altamirano NP 55 [place] [address] Social History Tobacco Use Types Packs/Day Years [...] Miscellaneous Notes * Telephone Encounter - Agnieszka Nieves - 08/01/2025 8:41 AM EDT Shannan high is calling requesting a copy of the paperwork for the DFMLA. States that [employer] has not received anything from us. This was in deed faxed and confirmed on . We are mailing a copy to the patient and will refax the documents. Leela has been notified. documented in this encounter Plan of Treatment Upcoming Encounters Date Type Department Care Team (Late st Contact Info) Description 08/16/2025 1:15 PM EST Follow-Up [facility] [address] [place] [address] Christopher Peres MD 55 [place] [address] documented as of this encounter Visit Diagnoses Not on filedocumented in this encounter Care Teams Base Ply Hand Relationship Specialty Start Date End Date rEnie Merritt 230 [place] [address] PCP - General Internal Medicine 11/29/24 documented as of this encounter
--- OUTSIDE RECORDS SUMMARY | 2025-08-04 15:50 | XMS_ITS | Encounter Summary ---
Author Organization [employer] Address 75 [facility] 7t [place] [address] Care Team Providers Care Perforator Operator Oil Well Name Role Phone Ernie Noriega MD Primary Care Provide r Reason for Visit * Reason Onset Date Comments Med Refill 09/28/2024 Encounter Details Date Type Department Care Team ([facility] st Contact Info) Description 09/28/2024 Telephone [facility] 230 [place] [address] Ernie Noriega MD 230 [place] [address] Med Refill Social History Tobacco Use Types [...] 300 MG capsule To be sent to: [facility]/pharmacy #[id number] [place] [address] documented in this encounter Plan of Treatment Upcoming Encounters Date Type Department Care Team (Late st Contact Info) Description 09/01/2025 9:00 AM EST Clinical Support [facility] [address] [place] [address] 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 RN 505 [place] [address] 09/26/2025 3:00 PM EST Office Visit [facility] [address] [place] [address] Ernie Noriega MD 230 [place] [address] documented as of this encounter Visit Diagnoses Not on filedocumented in this encounter Additional Health Concerns Assessment Noted Time PHQ-9 Depression Total Score: 2 01/21/20 24 1:25 PM EDT documented as of this encounter Care Teams Perforator Operator Oil Well Relationship Specialty Start Date End Date Ernie Noriega MD [address] [place] [address] PCP - General Internal Medicine 08/25/19 [facility] 03/31/25 05/25/25 [facility] 05/25/25 06/13/25 [facility] 05/25/25 06/19/25 [facility] 06/07/25 documented as of this encounter
--- OUTSIDE RECORDS SUMMARY | 2025-08-04 15:50 | XMS_ITS | Encounter Summary ---
Author Organization [employer] Address [address] [facility] 7t [place] [address] Care Team Providers Care Geriatric Care Manager Name Role Phone Ernie Noriega MD Primary Care Provide r Encounter Details Date Type Department Care Team (Late Contact Info) Description 04/13/2023 Orders Only [facility] MEDICINE [address] [place] [address] Sugar Mitchell MD [address] [place] [address] [phone] Neuropathic pain of right lower extremity (Primary [...] Department Care Team (Late Contact Info) Description 09/01/2025 9:00 AM EST Clinical Support [facility] MEDICINE [address] [place] [address] 480[address] 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 RN 505 [place], [place] [phone] 09/26/2025 3:00 PM EST Office Visit [facility] MED[facility]INE [address] [place] [address] Ernie Noriega MD [address] [place] [address] documented as of this encounter Procedures Procedure Name Priority Date/Time Associated Diagnosis Comments BASIC METABOLIC PANEL Routine 05/13/2023 8:40 AM EDT Neuropathic pain of right lower extremity documented in this encounter Results * (ABNORMAL) Basic Metabolic Panel (05/13/2023 8:40 AM EDT) Sodium 141 135 - 145 mmol/L [facility] Potassium 3.5 3.3 - 5.1 mmol/L [facility] Chloride 103 96 - 108 mmol/L [facility] Carbon Dioxide 23 22 - 29 mmol/L [facility] Anion Gap 19 12 - 20 [facility] Urea Nitrogen (BUN) 15 9 - 16 mg/dL [facility] Creatinine, Serum 0.78 0.5 - 1.4 mg/dL [facility] Estimated Glomerular Filt Rate >60 [facility] Comment:NOTE: For -Am erican individuals, multiply the result by 1.210.Chronic Kidney Disease: Estimated GFR < 60 mL/min/1.83p0Pllajv Kidney Disease: Estimated GFR < 15 mL/min/1.73m2 Glucose 151(H) 60 - 115 mg/dL [facility] Calcium 9.3 8.4 - 10.2 mg/dL [facility] Blood Venous blood specimen / Unknown 05/13/2023 8:40 AM EDT 05/13/2023 11:14 AM EDT us Sugar Mitchell MD LAB BLOOD ORDERABLES Final Resul t [facility] [address] [place] [address] [phone] documented in this encounter Visit Diagnoses Diagnosis Neuropathic pain of right lower extremity- Primary documented in this encounter Additional Health Concerns Assessment Noted Time PHQ-9 Depression Total Score: 0 12/02/19 23 2:38 PM EST documented as of this encounter Care Teams Geriatric Care Manager Relationship Specialty Start Date End Date Ernie Noriega MD 230 [place] [address] PCP - General Internal Medicine 08/25/19 [facility] 03/31/25 05/25/25 [facility] 05/25/25 06/13/25 [facility] 05/25/25 06/19/25 [facility] 06/07/25 documented as of this encounter
--- OUTSIDE RECORDS SUMMARY | 2025-08-04 15:50 | XMS_ITS | Encounter Summary ---
Author Organization [employer] Address 75 [facility] 7t [place] [address] Care Team Providers Care Visitor Services Information Assistant Name Role Phone Ernie Noriega MD Primary Care Provide r Reason for Visit * Reason Onset Date Comments Med Refill 11/01/2024 Encounter Details Date Type Department Care Team ([facility] st Contact Info) Description 11/01/2024 Refill [facility] MEDICINE 230 [place] [address] Sugar Mitchell MD 230 [place] [address] Seasonal allergies Social History Tobacco Use Types [...] Description 09/01/2025 9:00 AM EST Clinical Support [facility] MEDICINE [address] [place] [address] 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, MARQUISE [address] [place] [address] 09/26/2025 3:00 PM EST Office Visit [address] [address] Ernie Noriega MD [address] [place] [address] documented as of this encounter Visit Diagnoses Diagnosis Seasonal allergies Allergic rhinitis, cause unspecified documented in this encounter Additional Health Concerns Assessment Noted Time PHQ-9 Depression Total Score: 2 01/21/20 24 1:25 PM EDT documented as of this encounter Care Teams Visitor Services Information Assistant Relationship Specialty Start Date End Date Ernie Noriega MD [address] [place] [address] PCP - General Internal Medicine 08/25/19 [facility] 03/31/25 05/25/25 [facility] 05/25/25 06/13/25 [facility] 05/25/25 06/19/25 [facility] 06/07/25 documented as of this encounter
--- OUTSIDE RECORDS SUMMARY | 2025-08-04 15:50 | XMS_ITS | Encounter Summary ---
Author Organization [employer] Address 75 [facility] 7t [place] [address] Care Team Providers Care Fiscal Accountant Name Role Phone Ernie Noriega MD Primary Care Provide r Reason for Visit * Reason Onset Date Comments Med Refill 08/13/2024 Encounter Details Date Type Department Care Team ([facility] st Contact Info) Description 08/13/2024 Refill [facility] MEDICINE 230 [place] [address] Ernie Noriega MD 230 [place] [address] Seasonal allergies Social History Tobacco Use Types [...] Description 09/01/2025 9:00 AM EST Clinical Support [facility] MEDICINE [address] [place] [address] 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 RN 505 [place] [address] 09/26/2025 3:00 PM EST Office Visit [facility] MEDICINE [address] [place] [address] Ernie Noriega MD [address] [place] [address] documented as of this encounter Visit Diagnoses Diagnosis Seasonal allergies Allergic rhinitis, cause unspecified documented in this encounter Additional Health Concerns Assessment Noted Time PHQ-9 Depression Total Score: 2 01/21/20 24 1:25 PM EDT documented as of this encounter Care Teams Fiscal Accountant Relationship Specialty Start Date End Date Ernie Noriega MD [address] [place] [address] PCP - General Internal Medicine 08/25/19 [facility] 03/31/25 05/25/25 [facility] 05/25/25 06/13/25 [facility] 05/25/25 06/19/25 [facility] 06/07/25 documented as of this encounter
--- OUTSIDE RECORDS SUMMARY | 2025-08-04 15:50 | XMS_ITS | Encounter Summary ---
Author Organization [employer] Address 75 [facility] 7t [place] [address] Care Team Providers Care Associate Product Manager Name Role Phone Ernie Noriega MD Primary Care Provide r Reason for Visit * Reason Onset Date Comments Med Refill 06/25/2024 Encounter Details Date Type Department Care Team (Late st Contact Info) Description 06/25/2024 Refill [facility] MEDICINE 230 [place] [address] Ernie Noriega MD 230 [place] [address] Chronic midline low back pain without sciatica; [...] Description 09/01/2025 9:00 AM EST Clinical Support [facility] MEDICINE [address] [place] [address] 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 RN 505 [place] [address] 09/26/2025 3:00 PM EST Office Visit [facility] [address] [place] [address] Ernie Noriega MD [address] [place] [address] documented as of this encounter Visit Diagnoses Diagnosis Chronic midline low back pain without sciatica Cervical radiculopathy Brachial neuritis or radiculitis nos documented in this encounter Additional Health Concerns Assessment Noted Time PHQ-9 Depression Total Score: 2 01/21/20 24 1:25 PM EDT documented as of this encounter Care Teams Associate Product Manager Relationship Specialty Start Date End Date Ernie Noriega MD [address] [place] [address] PCP - General Internal Medicine 08/25/19 [facility] 03/31/25 05/25/25 [facility] 05/25/25 06/13/25 [facility] 05/25/25 06/19/25 [facility] 06/07/25 documented as of this encounter
--- OUTSIDE RECORDS SUMMARY | 2025-08-04 15:50 | XMS_ITS | Encounter Summary ---
Author Organization [employer] Address 75 [facility] 7t [place] [address] Care Team Providers Care Mh Teacher Name Role Phone Ernie Noriega MD Primary Care Provide r Reason for Visit * Reason Onset Date Comments Med Refill 06/26/2025 Encounter Details Date Type Department Care Team ([facility] st Contact Info) Description 06/26/2025 Refill [facility] MEDICINE 230 [place] [address] Ernie Noriega MD 230 [place] [address] Seasonal allergies Social History Tobacco Use Types [...] Description 09/01/2025 9:00 AM EST Clinical Support [facility] MEDICINE [address] [place] [address] 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, RN 505 [place] [address] 09/26/2025 3:00 PM EST Office Visit [facility]INE [address] [place] [address] Ernie Noriega MD [address] [place] [address] documented as of this encounter Visit Diagnoses Diagnosis Seasonal allergies Allergic rhinitis, cause unspecified documented in this encounter Additional Health Concerns Assessment Noted Time PHQ-9 Depression Total Score: 4 01/13/20 25 2:57 PM EDT documented as of this encounter Care Teams Mh Teacher Relationship Specialty Start Date End Date Ernie Noriega MD [address] [place] [address] PCP - General Internal Medicine 08/25/19 [facility] 06/07/25 documented as of this encounter
--- OUTSIDE RECORDS SUMMARY | 2025-08-04 15:50 | XMS_ITS | Encounter Summary ---
Author Organization [employer] Address [address] [place] [address] 7t [place] [address] Care Team Providers Care Funeral Attendant Name Role Phone Ernie Noriega MD Primary Care Provide r Reason for Visit * Reason Onset Date Comments Appointment Request 02/17/2023 Encounter Details Date Type Department Care Team ([facility] [place] st Contact Info) Description 02/17/2023 Telephone [facility] MEDICINE 230 [place] [address] Ernie Noriega MD 230 [place] [address] Appointment Request Social History Tobacco Use Types [...] a colonoscopy due to advise by her test facility engineer in [facility] Please contact pt AT [phone] Kinyarwanda Speaker documented in this encounter Plan of Treatment Upcoming Encounters Date Type Department Care Team (Late st Contact Info) Description 09/01/2025 9:00 AM EST Clinical Support [facility] MEDICINE [address] [place] [address] 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, RN 505 [place] [address] 09/26/2025 3:00 PM EST Office Visit [facility] [address] [place] [address] Ernie Noriega MD 230 [place] [address] documented as of this encounter Visit Diagnoses Not on filedocumented in this encounter Additional Health Concerns Assessment Noted Time PHQ-9 Depression Total Score: 0 12/02/19 23 2:38 PM EST documented as of this encounter Care Teams Funeral Attendant Relationship Specialty Start Date End Date Ernie Noriega MD 230 [place] [address] PCP - General Internal Medicine 08/25/19 [facility] 03/31/25 05/25/25 [facility] 05/25/25 06/13/25 [facility] 05/25/25 06/19/25 [facility] 06/07/25 documented as of this encounter
--- OUTSIDE RECORDS SUMMARY | 2025-08-04 15:50 | XMS_ITS | Encounter Summary ---
Author Organization [employer] Address 75 [facility] 7t [place] [address] Care Team Providers Care Clinical Team Lead Name Role Phone Ernie Noriega MD Primary Care Provide r Reason for Visit * Reason Onset Date Comments Med Refill 10/17/2024 Encounter Details Date Type Department Care Team (Late st Contact Info) Description 10/17/2024 Refill [facility] MEDICINE 230 [place] [address] Ernie Noriega MD 230 [place] [address] Primary osteoarthritis of knee, unspecified laterality Social [...] Description 09/01/2025 9:00 AM EST Clinical Support [facility] MEDICINE [address] [place] [address] 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 RN 505 [place] [address] 09/26/2025 3:00 PM EST Office Visit [facility] MEDICINE [address] [place] [address] Ernie Noriega MD [address] [place] [address] documented as of this encounter Visit Diagnoses Diagnosis Primary osteoarthritis of knee, unspecified laterality documented in this encounter Additional Health Concerns Assessment Noted Time PHQ-9 Depression Total Score: 2 01/21/20 24 1:25 PM EDT documented as of this encounter Care Teams Clinical Team Lead Relationship Specialty Start Date End Date Ernie Noriega MD [address] [place] [address] PCP - General Internal Medicine 08/25/19 [facility] 03/31/25 05/25/25 [facility] 05/25/25 06/13/25 [facility] 05/25/25 06/19/25 [facility] 06/07/25 documented as of this encounter
--- OUTSIDE RECORDS SUMMARY | 2025-08-04 15:50 | XMS_ITS | Encounter Summary ---
Author Organization [employer] Address 75 [facility] 7t [place] [address] Care Team Providers Care Tufting Machine Fixer Name Role Phone Ernie Noriega MD Primary Care Provide r Reason for Visit * Reason Onset Date Comments Med Refill 04/13/2025 Encounter Details Date Type Department Care Team (Late st Contact Info) Description 04/13/2025 Refill [facility] MEDICINE 230 [place] [address] Ernie Noriega MD 230 [place] [address] Primary osteoarthritis of knee, unspecified laterality Social [...] Description 09/01/2025 9:00 AM EST Clinical Support [facility] MEDICINE [address] [place] [address] 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 RN 505 [place] [address] 09/26/2025 3:00 PM EST Office Visit [facility] MEDICINE [address] [place] [address] Ernie Noriega MD [address] [place] [address] documented as of this encounter Visit Diagnoses Diagnosis Primary osteoarthritis of knee, unspecified laterality documented in this encounter Additional Health Concerns Assessment Noted Time PHQ-9 Depression Total Score: 4 01/13/20 2:57 PM EDT documented as of this encounter Care Teams Tufting Machine Fixer Relationship Specialty Start Date End Date Ernie Noriega MD [address] [place] [address] PCP - General Internal Medicine 08/25/19 [facility] 03/31/25 05/25/25 [facility] 05/25/25 06/13/25 [facility] 05/25/25 06/19/25 [facility] 06/07/25 documented as of this encounter
--- OUTSIDE RECORDS SUMMARY | 2025-08-04 15:50 | XMS_ITS | Encounter Summary ---
Author Organization [employer] Address 75 [facility] [place] 7t [place] [address] Care Team Providers Care Course Developer Name Role Phone Ernie Noriega MD Primary Care Provide r Reason for Visit * Reason Onset Date Comments Med Refill 01/10/2025 Encounter Details Date Type Department Care Team (Late st Contact Info) Description 01/10/2025 Refill [facility] MEDICINE 230 [place] [address] Ernie Noriega MD 230 [place] [address] Chronic midline low back pain without sciatica [...] difficult at all 01/12/2025 2:57 PM EDT [facility] Priti coronado [place] documented as of this encounter Plan of Treatment Upcoming Encounters Date Type Department Care Team (Late st Contact Info) Description 09/01/2025 9:00 AM EST Clinical Support [address] [address] 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, RN 505 [place] [address] 09/26/2025 3:00 PM EST Office Visit [address] [address] Ernie Noriega MD [address] [place] [address] documented as of this encounter Visit Diagnoses Diagnosis Chronic midline low back pain without sciatica documented in this encounter Additional Health Concerns Assessment Noted Time PHQ-9 Depression Total Score: 2 01/21/20 24 1:25 PM EDT documented as of this encounter Care Teams Course Developer Relationship Specialty Start Date End Date Ernie oNriega MD [address] [place] [address] PCP - General Internal Medicine 08/25/19 [facility] 03/31/25 05/25/25 [facility] 05/25/25 06/13/25 [facility] 05/25/25 06/19/25 [facility] 06/07/25 documented as of this encounter
--- OUTSIDE RECORDS SUMMARY | 2025-08-04 15:50 | XMS_ITS | Encounter Summary ---
Author Organization [employer] Address 75 [facility] 7t [place] [address] Care Team Providers Care Financial Data Analyst Name Role Phone Ernie Noriega MD Primary Care Provide r Reason for Visit * Reason Onset Date Comments Med Refill 01/10/2025 Encounter Details Date Type Department Care Team (Late st Contact Info) Description 01/10/[address] [facility] MEDICINE 230 [place] [address] Ernie Noriega MD 230 [place] [address] Primary osteoarthritis of knee, unspecified laterality Social [...] difficult at all 01/12/2025 2:57 PM EDT [facility] Priti coronado [place] documented as of this encounter Plan of Treatment Upcoming Encounters Date Type Department Care Team (Late st Contact Info) Description 09/01/2025 9:00 AM EST Clinical Support [address] [address] 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, RN 505 [place] [address] 09/26/2025 3:00 PM EST Office Visit [address] [address] Ernie Noriega MD [address] [place] [address] documented as of this encounter Visit Diagnoses Diagnosis Primary osteoarthritis of knee, unspecified laterality documented in this encounter Additional Health Concerns Assessment Noted Time PHQ-9 Depression Total Score: 2 01/21/20 24 1:25 PM EDT documented as of this encounter Care Teams Financial Data Analyst Relationship Specialty Start Date End Date Ernie Noriega MD [address] [place] [address] PCP - General Internal Medicine 08/25/19 [facility] 03/31/25 05/25/25 [facility] 05/25/25 06/13/25 [facility] 05/25/25 06/19/25 [facility] 06/07/25 documented as of this encounter
--- OUTSIDE RECORDS SUMMARY | 2025-08-04 15:50 | XMS_ITS | Encounter Summary ---
Author Organization [employer] Address 75 [facility] 7t [place] [address] Care Team Providers Care Cable Way Operator Name Role Phone Ernie Noriega MD Primary Care Provide r Reason for Visit * Reason Onset Date Comments Med Refill 10/12/2024 Encounter Details Date Type Department Care Team (Late st Contact Info) Description 10/12/2024 Refill [facility] MEDICINE 230 [place] [address] Ernie Noriega MD 230 [place] [address] Primary osteoarthritis of knee, unspecified laterality Social [...] Description 09/01/2025 9:00 AM EST Clinical Support [facility] MEDICINE [address] [place] [address] 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 RN 505 [place] [address] 09/26/2025 3:00 PM EST Office Visit [facility] MEDICINE [address] [place] [address] Ernie Noriega MD [address] [place] [address] documented as of this encounter Visit Diagnoses Diagnosis Primary osteoarthritis of knee, unspecified laterality documented in this encounter Additional Health Concerns Assessment Noted Time PHQ-9 Depression Total Score: 2 01/21/20 24 1:25 PM EDT documented as of this encounter Care Teams Cable Way Operator Relationship Specialty Start Date End Date Ernie Noriega MD [address] [place] [address] PCP - General Internal Medicine 08/25/19 [facility] 03/31/25 05/25/25 [facility] 05/25/25 06/13/25 [facility] 05/25/25 06/19/25 [facility] 06/07/25 documented as of this encounter
--- OUTSIDE RECORDS SUMMARY | 2025-08-04 15:50 | XMS_ITS | Encounter Summary ---
Author Organization [employer] Address 75 [facility] 7t [place] [address] Care Team Providers Care Fuel Efficient Automobile Designer Name Role Phone Ernie Norieag MD Primary Care Provide r Reason for Visit * Reason Onset Date Comments Med Refill 03/22/2025 Encounter Details Date Type Department Care Team (Late st Contact Info) Description 03/22/2025 Refill [facility] MEDICINE 230 [place] [address] Ernie Noriega MD 230 [place] [address] Gastritis without bleeding, unspecified chronicity, unspecified gastritis [...] Description 09/01/2025 9:00 AM EST Clinical Support [facility] MEDICINE [address] [place] [address] 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 RN 505 [place] [address] 09/26/2025 3:00 PM EST Office Visit [address] [address] Ernie Noriega MD [address] [place] [address] documented as of this encounter Visit Diagnoses Diagnosis Gastritis without bleeding, unspecified chronicity, unspecified gastritis type Ischial pain, right Pain Generalized pain Chronic midline low back pain without sciatica documented in this encounter Additional Health Concerns Assessment Noted Time PHQ-9 Depression Total Score: 4 01/13/20 25 2:57 PM EDT documented as of this encounter Care Teams Fuel Efficient Automobile Designer Relationship Specialty Start Date End Date Ernie Noriega MD [address] [place] [address] PCP - General Internal Medicine 08/25/19 [facility] 03/31/25 05/25/25 [facility] 05/25/25 06/13/25 [facility] 05/25/25 06/19/25 [facility] 06/07/25 documented as of this encounter
--- OUTSIDE RECORDS SUMMARY | 2025-08-04 15:50 | XMS_ITS | Encounter Summary ---
Author Organization [employer] Address 75 [facility] 7t [place] [address] Care Team Providers Care Tire Buffer Name Role Phone Ernie Noriega MD Primary Care Provide r Reason for Visit * Reason Onset Date Comments Med Refill 06/26/2025 Encounter Details Date Type Department Care Team ([facility] st Contact Info) Description 06/26/2025 Refill [facility] MEDICINE 230 [place] [address] Ernie Noriega MD 230 [place] [address] Gastritis without bleeding, unspecified chronicity, unspecified gastritis [...] Description 09/01/2025 9:00 AM EST Clinical Support [facility] MEDICINE [address] [place] [address] 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 RN 505 [place] [address] 09/26/2025 3:00 PM EST Office Visit [facility] MEDICINE [address] [place] [address] Ernie Noriega MD [address] [place] [address] documented as of this encounter Visit Diagnoses Diagnosis Gastritis without bleeding, unspecified chronicity, unspecified gastritis type documented in this encounter Additional Health Concerns Assessment Noted Time PHQ-9 Depression Total Score: 4 01/13/20 25 2:57 PM EDT documented as of this encounter Care Teams Tire Buffer Relationship Specialty Start Date End Date Ernie Noriega MD [address] [place] [address] PCP - General Internal Medicine 08/25/19 [place] 06/07/25 documented as of this encounter
--- OUTSIDE RECORDS SUMMARY | 2025-08-04 15:50 | XMS_ITS | Encounter Summary ---
Author Organization [employer] Address 75 [facility] 7t [place] [address] Care Team Providers Care Card Folder Name Role Phone Ernie Noriega MD Primary Care Provide r Reason for Visit * Reason Onset Date Comments Med Refill 03/15/2024 Encounter Details Date Type Department Care Team (Late st Contact Info) Description 03/15/2024 Refill [facility] MEDICINE 230 [place] [address] Ofelia Melgar MD 230 [place] [address] Chronic midline low back pain without sciatica; [...] Description 09/01/2025 9:00 AM EST Clinical Support [facility] MEDICINE [address] [place] [address] 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, MARQUISE 505 [place] [address] 09/26/2025 3:00 PM EST Office Visit [facility] MEDICINE [address] [place] [address] Ernie Noriega MD [address] [place] [address] documented as of this encounter Visit Diagnoses Diagnosis Chronic midline low back pain without sciatica Cervical radiculopathy Brachial neuritis or radiculitis nos documented in this encounter Additional Health Concerns Assessment Noted Time PHQ-9 Depression Total Score: 2 01/21/20 24 1:25 PM EDT documented as of this encounter Care Teams Card Folder Relationship Specialty Start Date End Date Ernie Noriega MD [address] [place] [address] PCP - General Internal Medicine 08/25/19 [facility]LL[facility] 03/31/25 05/25/25 [facility] 05/25/25 06/13/25 [facility] 05/25/25 06/19/25 [facility] 06/07/25 documented as of this encounter
--- OUTSIDE RECORDS SUMMARY | 2025-08-04 15:50 | XMS_ITS | Encounter Summary ---
Author Organization [employer] Address [address] [facility] [address] 7t [place] [address] Care Team Providers Care Counter Professional Name Role Phone Ernie Noriega MD Primary Care Provide r Encounter Details Date Type Department Care Team ([facility] st Contact Info) Description 06/15/2025 Results Follow-Up [facility] [address] [place] [address] Ilsa Robison, ANP 230 [place] [address] [place] VENOUS DUPLEX LE RT Social History [...] Lobo - 06/15/2025 11:35 AM EDT Clint Jerome Julien, Trent ultrasonido sali?? normal, sin co??gulos ni quistes. Si contin??a con dolor o inflamaci??n, por favor, inf??rmenos. Please call our office if you have any questions. Por favor llame a la oficina si tiene preguntas. Take care, Cu??Ilsa ramirez ROUGH RICE TENDER documented in this encounter Plan of Treatment Upcoming Encounters Date Type Department Care Team (Late st Contact Info) Description 09/01/2025 9:00 AM EST Clinical Support [facility] MED[facility]INE [address] [place] [address] 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 RN 505 [place] [address] 09/26/2025 3:00 PM EST Office Visit [facility] [address] [place] [address] Ernie Noriega MD 230 [place] [address] documented as of this encounter Visit Diagnoses Not on filedocumented in this encounter Additional Health Concerns Assessment Noted Time PHQ-9 Depression Total Score: 4 01/13/20 25 2:57 PM EDT documented as of this encounter Care Teams Counter Professional Relationship Specialty Start Date End Date Ernie Noriega MD 230 [place] [address] PCP - General Internal Medicine 08/25/19 [facility] 05/25/25 06/19/25 [facility] 06/07/25 documented as of this encounter
--- OUTSIDE RECORDS SUMMARY | 2025-08-04 15:51 | XMS_ITS | Encounter Summary ---
Author Organization [employer] Address 75 [facility] 7t [place] [address] Care Team Providers Care Production Designer Name Role Phone Ernie Noriega MD Primary Care Provide r Reason for Visit * Reason Onset Date Comments Med Refill 08/17/2023 Encounter Details Date Type Department Care Team ([facility] st Contact Info) Description 08/17/2023 Telephone [facility] MED[facility]INE [address] [place] [address] Ernie Noriega MD [address] [place], [place] [phone] Med Refill Social History Tobacco Use Types [...] (Ultram) 50 MG tablet Please sent to [facility]/pharmacy #[id number] [place], [place] - [address] [place] [address] documented in this encounter Plan of Treatment Upcoming Encounters Date Type Department Care Team (Late st Contact Info) Description 09/01/2025 9:00 AM EST Clinical Support [facility] MEDICINE [address] [place] [address] 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 RN 505 [place] [address] 09/26/2025 3:00 PM EST Office Visit [facility] [address] [place] [address] Ernie Noriega MD [address] [place] [address] documented as of this encounter Visit Diagnoses Not on filedocumented in this encounter Additional Health Concerns Assessment Noted Time PHQ-9 Depression Total Score: 0 12/02/19 23 2:38 PM EST documented as of this encounter Care Teams Production Designer Relationship Specialty Start Date End Date Ernie Noriega MD [address] [place] [address] PCP - General Internal Medicine 08/25/19 [facility] LENZ 03/31/25 05/25/25 Jesus KELLYA 05/25/25 06/13/25 [facility] [facility] 05/25/25 06/19/25 [place] [facility] 06/07/25 documented as of this encounter
--- OUTSIDE RECORDS SUMMARY | 2025-08-04 15:51 | XMS_ITS | Encounter Summary ---
Author Organization [employer] Address 75 [facility] 7t [place] [address] Care Team Providers Care Orthopedic Nurse Name Role Phone Ernie Noriega MD Primary Care Provide r Reason for Visit * Reason Comments Med Refill Encounter Details Date Type Department Care Team ([facility] st Contact Info) Description 08/10/2023 Refill [facility] 230 [place] [address] Perlita Woody MD 230 [place] [address] Seasonal allergies; Primary hypertension Social History Tobacco [...] Description 09/01/2025 9:00 AM EST Clinical Support [address] [address] 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, RN 505 [place] [address] 09/26/2025 3:00 PM EST Office Visit [facility] [address] [place] [address] Ernie Noriega MD [address] [place] [address] documented as of this encounter Visit Diagnoses Diagnosis Seasonal allergies Allergic rhinitis, cause unspecified Primary hypertension Unspecified essential hypertension documented in this encounter Additional Health Concerns Assessment Noted Time PHQ-9 Depression Total Score: 0 12/02/19 23 2:38 PM EST documented as of this encounter Care Teams Orthopedic Nurse Relationship Specialty Start Date End Date Ernie Noriega MD [address] [place] [address] PCP - General Internal Medicine 08/25/19 [place] [facility] 03/31/25 05/25/25 [facility] 05/25/25 06/13/25 [facility] 05/25/25 06/19/25 [facility] [facility] 06/07/25 documented as of this encounter
--- OUTSIDE RECORDS SUMMARY | 2025-08-04 15:51 | XMS_ITS | Encounter Summary ---
Author Organization [employer] Address 75 [facility] 7t [place] [address] Care Team Providers Care Tug Boat Engineer Name Role Phone Ernie Noriega MD Primary Care Provide r Reason for Visit * Reason Onset Date Comments Med Refill 10/27/2023 Encounter Details Date Type Department Care Team ([facility] st Contact Info) Description 10/27/2023 Refill [facility] 230 [place] [address] Ernie Noriega MD 230 [place] [address] Seasonal allergies; Pain Social History Tobacco Use [...] Description 09/01/2025 9:00 AM EST Clinical Support [facility] MEDICINE [address] [place] [address] 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 RN 505 [place] [address] 09/26/2025 3:00 PM EST Office Visit [facility]INE [address] [place] [address] Ernie Noriega MD [address] [place] [address] documented as of this encounter Visit Diagnoses Diagnosis Seasonal allergies Allergic rhinitis, cause unspecified Pain Generalized pain documented in this encounter Additional Health Concerns Assessment Noted Time PHQ-9 Depression Total Score: 0 12/02/19 23 2:38 PM EST documented as of this encounter Care Teams Tug Boat Engineer Relationship Specialty Start Date End Date Ernie Noriega MD [address] [place] [address] PCP - General Internal Medicine 08/25/19 [place] [facility] 03/31/25 05/25/25 [facility] 05/25/25 06/13/25 [facility] 05/25/25 06/19/25 [place] [facility] 06/07/25 documented as of this encounter
--- OUTSIDE RECORDS SUMMARY | 2025-08-04 15:51 | XMS_ITS | Encounter Summary ---
Author Organization [employer] Address 75 [facility] 7t [place] [address] Care Team Providers Care Parent Trainer Name Role Phone Ernie Noriega MD Primary Care Provide r Reason for Visit * Reason Comments Med Refill Encounter Details Date Type Department Care Team ([facility] st Contact Info) Description 08/26/2023 Refill [facility] 230 [place] [address] Perlita Woody MD 230 [place] [address] Seasonal allergies Social History Tobacco Use Types [...] Description 09/01/2025 9:00 AM EST Clinical Support [address] [address] 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 RN 505 [place] [address] 09/26/2025 3:00 PM EST Office Visit [facility] MEDICINE [address] [place] [address] Ernie Noriega MD [address] [place] [address] documented as of this encounter Visit Diagnoses Diagnosis Seasonal allergies Allergic rhinitis, cause unspecified documented in this encounter Additional Health Concerns Assessment Noted Time PHQ-9 Depression Total Score: 0 12/02/19 23 2:38 PM EST documented as of this encounter Care Teams Parent Trainer Relationship Specialty Start Date End Date Ernie Noriega MD [address] [place] [address] PCP - General Internal Medicine 08/25/19 [place] [facility] 03/31/25 05/25/25 [facility] [facility] 05/25/25 06/13/25 [facility] 05/25/25 06/19/25 [place] [facility] 06/07/25 documented as of this encounter
--- OUTSIDE RECORDS SUMMARY | 2025-08-04 15:51 | XMS_ITS | Encounter Summary ---
Author Organization [employer] Address 75 [facility] 7t [place] [address] Care Team Providers Care Senior Physical Therapist Name Role Phone Ernie Noriega MD Primary Care Provide r Reason for Visit * Reason Comments Med Refill Encounter Details Date Type Department Care Team ([facility] st Contact Info) Description 04/01/2025 Refill [facility] 230 [place] [address] Ernie Noriega MD 230 [place], [place] [phone] Primary hypertension; Seasonal allergies Social History Tobacco [...] Description 09/01/2025 9:00 AM EST Clinical Support [facility] 230 [place] [address] 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, RN 505 [place] [address] 09/26/2025 3:00 PM EST Office Visit [facility] 230 [place] [address] Ernie Noriega MD 230 [place] [address] documented as of this encounter Visit Diagnoses Diagnosis Primary hypertension Unspecified essential hypertension Seasonal allergies Allergic rhinitis, cause unspecified documented in this encounter Additional Health Concerns Assessment Noted Time PHQ-9 Depression Total Score: 4 01/13/20 25 2:57 PM EDT documented as of this encounter Care Teams Senior Physical Therapist Relationship Specialty Start Date End Date Ernie Noriega MD 230 [place] [address] PCP - General Internal Medicine 08/25/19 [place] [facility] 03/31/25 05/25/25 [facility] 05/25/25 06/13/25 [facility] 05/25/25 06/19/25 [place] [facility] 06/07/25 documented as of this encounter
--- OUTSIDE RECORDS SUMMARY | 2025-08-04 15:51 | XMS_ITS | Encounter Summary ---
Author Organization [employer] Address [address] [facility] [address] 7t [place] [address] Care Team Providers Care Scrub Technician Name Role Phone Ernie Noriega MD Primary Care Provide r Reason for Visit * Reason Onset Date Comments Med Refill 09/18/2023 Encounter Details Date Type Department Care Team (Late st Contact Info) Description 09/18/2023 Refill [facility] [address] [place] [address] Ernie Noriega MD 230 [place] [address] Chronic midline low back pain without sciatica; [...] 09/01/2025 9:00 AM EST Clinical Support [facility] MEDICINE [address] [place] [address] 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 RN 505 [place] [address] 09/26/2025 3:00 PM EST Office Visit [facility] MEDICINE [address] [place] [address] Ernie Noriega MD [address] [place] [address] documented as of this encounter Visit Diagnoses Diagnosis Chronic midline low back pain without sciatica Cervical radiculopathy Brachial neuritis or radiculitis nos documented in this encounter Additional Health Concerns Assessment Noted Time PHQ-9 Depression Total Score: 0 12/02/19 23 2:38 PM EST documented as of this encounter Care Teams Scrub Technician Relationship Specialty Start Date End Date Ernie Noriega MD [address] [place] [address] PCP - General Internal Medicine 08/25/19 [place] [facility] 03/31/25 05/25/25 [facility] 05/25/25 06/13/25 [facility] 05/25/25 06/19/25 [place] [facility] 06/07/25 documented as of this encounter
--- OUTSIDE RECORDS SUMMARY | 2025-08-04 15:51 | XMS_ITS | Encounter Summary ---
Author Organization [employer] Address 75 [facility] 7t [place] [address] Care Team Providers Care Turning Lathe Tender Name Role Phone Ernie Noriega MD Primary Care Provide r Reason for Visit * Reason Onset Date Comments Med Refill 11/17/2024 Encounter Details Date Type Department Care Team ([facility] st Contact Info) Description 11/17/2024 Refill [facility] MED[facility]INE 230 [place] [address] Ernie Noriega MD 230 [place] [address] Seasonal allergies Social History Tobacco Use Types [...] Clinical Support [facility] MEDICINE [address] [place] [address] 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, MARQUISE 505 [place] [address] 09/26/2025 3:00 PM EST Office Visit [facility] MEDICINE [address] [place] [address] Ernie Noriega MD [address] [place] [address] documented as of this encounter Visit Diagnoses Diagnosis Seasonal allergies Allergic rhinitis, cause unspecified documented in this encounter Additional Health Concerns Assessment Noted Time PHQ-9 Depression Total Score: 2 01/21/20 24 1:25 PM EDT documented as of this encounter Care Teams Turning Lathe Tender Relationship Specialty Start Date End Date Ernie Noriega MD [address] [place] [address] PCP - General Internal Medicine 08/25/19 [facility] 03/31/25 05/25/25 [facility] 05/25/25 06/13/25 [facility] 05/25/25 06/19/25 [facility] 06/07/25 documented as of this encounter
--- OUTSIDE RECORDS SUMMARY | 2025-08-04 15:51 | XMS_ITS | Encounter Summary ---
Author Organization [employer] Address 75 [facility] 7t [place] [address] Care Team Providers Care Internal Carver Name Role Phone Ernie Noriega MD Primary Care Provide r Reason for Visit * Reason Onset Date Comments Med Refill 10/27/2023 Encounter Details Date Type Department Care Team (Late st Contact Info) Description 10/27/2023 Refill [facility] 230 [place] [address] Perlita Woody MD 230 [place] [address] Primary hypertension Social History Tobacco Use Types [...] Description 09/01/2025 9:00 AM EST Clinical Support [facility] MED[facility] [address] [place] [address] 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 RN 505 [place] [address] 09/26/2025 3:00 PM EST Office Visit [facility] [address] [place] [address] Ernie Noriega MD [address] [place] [address] documented as of this encounter Visit Diagnoses Diagnosis Primary hypertension Unspecified essential hypertension documented in this encounter Additional Health Concerns Assessment Noted Time PHQ-9 Depression Total Score: 0 12/02/19 23 2:38 PM EST documented as of this encounter Care Teams Internal Carver Relationship Specialty Start Date End Date Ernie Noriega MD [address] [place] [address] PCP - General Internal Medicine 08/25/19 [place] [facility] 03/31/25 05/25/25 [facility] 05/25/25 06/13/25 [facility] 05/25/25 06/19/25 [place] [facility] 06/07/25 documented as of this encounter
--- OUTSIDE RECORDS SUMMARY | 2025-08-04 15:51 | XMS_ITS | Encounter Summary ---
Author Organization [employer] Address 75 [facility] 7t [place] [address] Care Team Providers Care Benefits Manager Name Role Phone Ernie Noriega MD Primary Care Provide r Reason for Visit * Reason Onset Date Comments Med Refill 11/04/2023 Encounter Details Date Type Department Care Team (Late st Contact Info) Description 11/04/2023 Refill [facility] 230 [place] [address] Ernie Noriega MD 230 [place] [address] Chronic midline low back pain without sciatica; [...] Description 09/01/2025 9:00 AM EST Clinical Support [facility] MEDICINE [address] [place] [address] 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 RN 505 [place] [address] 09/26/2025 3:00 PM EST Office Visit [facility] MEDICINE [address] [place] [address] Ernie Noriega MD [address] [place] [address] documented as of this encounter Visit Diagnoses Diagnosis Chronic midline low back pain without sciatica Cervical radiculopathy Brachial neuritis or radiculitis nos Seasonal allergies Allergic rhinitis, cause unspecified documented in this encounter Additional Health Concerns Assessment Noted Time PHQ-9 Depression Total Score: 0 12/02/19 23 2:38 PM EST documented as of this encounter Care Teams Benefits Manager Relationship Specialty Start Date End Date Ernie Noriega MD [address] [place] [address] PCP - General Internal Medicine 08/25/19 [facility] 03/31/25 05/25/25 [facility] [facility] 05/25/25 06/13/25 [facility] 05/25/25 06/19/25 [facility] LENZ 06/07/25 documented as of this encounter
--- OUTSIDE RECORDS SUMMARY | 2025-08-04 15:51 | XMS_ITS | Encounter Summary ---
Author Organization [employer] Address [address] [place] [address] Care Team Providers Care Souvenir And Novelty Maker Name Role Phone Ernie Merritt MD Primary Care Provi bobo Encounter Details Date Type Department Care Team (Late st Contact Info) Description 05/23/[address] [facility] Lab [address] [facility] [place] [address] Partha Hermosillo MD [address] [place] [address] Fusion of spine, lumbar region Social History [...] B12 (05/23/2025 8:40 AM EDT) [facility] Vitamin B-12 1,040(H) 250 - 900 pcg/mL LAB CHEMISTRY METHOD 05/23/2025 12:[address] [facility] Blood Venous blood specimen / Unknown Venipuncture / Unknown 05/23/2025 8:40 AM EDT 05/23/2025 9:43 AM EDT Partha Hermosillo MD LAB BLOOD ORDERABLES Final Result Performing Organization Address City/[facility]/ZIP Co de Phone Number [facility] [address] [place] [address], [place] [phone] * (ABNORMAL) Folate (05/23/2025 8:40 AM EDT) [facility] Folate >20.0(H) 2.8 - 17.0 ng/ml LAB CHEMISTRY METHOD 05/23/2025 12:[address] [facility] Blood Venous blood specimen / Unknown Venipuncture / Unknown 05/23/2025 8:40 AM EDT 05/23/2025 9:43 AM EDT Partha Hermosillo MD LAB BLOOD ORDERABLES Final Result [facility] [address] [place] [address], [place] [phone] * Thyroid stimulating hormone (05/23/2025 8:40 AM EDT) [facility] TSH 1.49 0.40 - 4.00 mcIU/mL LAB CHEMISTRY METHOD 05/23/2025 1:07 PM [facility] Blood Venous blood specimen / Unknown Venipuncture / Unknown 05/23/2025 8:40 AM EDT 05/23/2025 9:43 AM EDT us Partha Hermosillo MD LAB BLOOD ORDERABLES Final Result [facility] [address] [place] [address], [place] [phone] * (ABNORMAL) Basic metabolic panel (05/23/2025 8:40 AM EDT) Sodium 135 133 - 145 mmol/L LAB CHEMISTRY METHOD 05/23/2025 12:33 PM [facility] Potassium 4.0 3.5 - 5.5 mmol/L LAB CHEMISTRY METHOD 05/23/2025 12:33 PM [facility] Chloride 99 96 - 110 mmol/L LAB CHEMISTRY METHOD 05/23/2025 12:33 PM [facility] CO2 27 21 - 32 mmol/L LAB CHEMISTRY METHOD 05/23/2025 12:33 PM [facility] Anion Gap 9 3 - 11 LAB CHEMISTRY METHOD 05/23/2025 12:33 PM [facility] Glucose 121(H) 70 - 100 mg/dL LAB CHEMISTRY METHOD 05/23/2025 12:33 PM [facility] BUN 13 5 - 25 mg/dL LAB CHEMISTRY METHOD 05/23/2025 12:33 PM [facility] Creatinine 0.47(L) 0.50 - 1.10 mg/dL LAB CHEMISTRY METHOD 05/23/2025 12:33 PM [facility] eGFR 108 >=60 mL/min/1. 73m2 LAB CHEMISTRY METHOD 05/23/2025 12:33 [facility] Comment:Calculation based on the Chronic Kidney Disease Epidemiology Collaboration (CKD-EPI) equation refit without adjustment for race. BUN/Creatinine Ratio 27.7 LAB CHEMISTRY METHOD 05/23/2025 12:33 PM [facility] Calcium 8.8 8.5 - 10.5 mg/dL LAB CHEMISTRY METHOD 05/23/2025 12:33 PM [facility] Blood Venous blood specimen / Unknown Venipuncture / Unknown 05/23/2025 8:40 AM EDT 05/23/2025 9:43 AM EDT Partha Hermosillo MD LAB BLOOD ORDERABLES Final Result [facility] [address] [place] [address], [place] [phone] * (ABNORMAL) Complete blood count (05/23/2025 8:40 AM EDT) WBC 8.9 4.8 - 10.8 K/mcL LAB HEMETOLOGY METHOD 05/23/2025 10:45 AM [facility] RBC 3.10(L) 3.80 - 4.80 M/mcL LAB HEMETOLOGY METHOD 05/23/2025 10:45 AM [facility] Hemoglobin 8.4(L) 11.5 - 16.0 g/dL LAB HEMETOLOGY METHOD 05/23/2025 10:45 AM [facility] Hematocrit 27.6(L) 35.0 - 47.0 % LAB HEMETOLOGY METHOD 05/23/2025 10:45 AM [facility] MCV 90.2 79.0 - 98.0 FL LAB HEMETOLOGY METHOD 05/23/2025 10:45 AM [facility] MCH 27.5 27.0 - 32.0 pcg LAB HEMETOLOGY METHOD 05/23/2025 10:[address] [facility] MCHC 30.4(L) 32.0 - 37.0 g/dL LAB HEMETOLOGY METHOD 05/23/2025 10:[address] [facility] RDW 14.9 11.0 - 15.0 % LAB HEMETOLOGY METHOD 05/23/2025 10:[address] [facility] Platelets 750(H) 130 - 400 K/mcL LAB HEMETOLOGY METHOD 05/23/2025 10:[address] [facility] MPV 9.4 7.0 - 11.0 FL LAB HEMETOLOGY METHOD 05/23/2025 10:[address] [facility] NRBC 0.0 <1.0 % LAB HEMETOLOGY METHOD 05/23/2025 10:[address] [facility] NRBC Absolute 0.00 <0.10 K/mcL LAB HEMETOLOGY METHOD 05/23/2025 10:[address] [facility] Blood Venous blood specimen / Unknown Venipuncture / Unknown 05/23/2025 8:40 AM EDT 05/23/2025 9:43 AM EDT us Partha Hermosillo MD LAB BLOOD ORDERABLES Final Result [facility] [address] [place] [address], documented in this encounter Visit Diagnoses Diagnosis Fusion of spine, lumbar region documented in this encounter Care Teams Souvenir And Novelty Maker Relationship Specialty Start Date End Date Ernie Merritt MD [address] [place] [address] [place] [address] PCP - General Internal Medicine 05/20/21 documented as of this encounter
--- OUTSIDE RECORDS SUMMARY | 2025-08-04 15:51 | XMS_ITS | Encounter Summary ---
Author Organization [employer] Address 75 [facility] 7t [place] [address] Care Team Providers Care Lead Application Architect Name Role Phone Ernie Noriega MD Primary Care Provide r Reason for Visit * Reason Onset Date Comments Med Refill 10/27/2023 Encounter Details Date Type Department Care Team (Late st Contact Info) Description 10/27/2023 Refill [facility] MEDICINE [address] [place] [address] Ernie Noriega MD 230 [place] [address] Mild persistent asthma without complication; Pain; Chronic [...] Description 09/01/2025 9:00 AM EST Clinical Support [facility] MEDICINE [address] [place] [address] 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 RN 505 [place] [address] 09/26/2025 3:00 PM EST Office Visit [facility] MEDICINE [address] [place] [address] Ernie Noriega MD [address] [place] [address] documented as of this encounter Visit Diagnoses Diagnosis Mild persistent asthma without complication Pain Generalized pain Chronic midline low back pain without sciatica Cervical radiculopathy Brachial neuritis or radiculitis nos documented in this encounter Additional Health Concerns Assessment Noted Time PHQ-9 Depression Total Score: 0 12/02/19 23 2:38 PM EST documented as of this encounter Care Teams Lead Application Architect Relationship Specialty Start Date End Date Ernie Noriega MD [address] [place] [address] PCP - General Internal Medicine 08/25/19 [facility] 03/31/25 05/25/25 [facility] 05/25/25 06/13/25 [facility] 05/25/25 06/19/25 [facility] 06/07/25 documented as of this encounter
--- OUTSIDE RECORDS SUMMARY | 2025-08-04 15:51 | XMS_ITS | Encounter Summary ---
Author Organization [employer] Address [address] [facility] [address] [place] [address] Care Team Providers Care Staff Antisubmarine Officer Name Role Phone Ernie Noriega MD Primary Care Provide r Reason for Visit * Reason Onset Date Comments Med Refill 11/04/2023 Encounter Details Date Type Department Care Team ([facility] st Contact Info) Description 11/04/[address] [facility] [address] [place] [id number] Ernie Noriega MD [address] [place] [address] Pain Social History Tobacco Use Types Packs/Day [...] 9:00 AM EST Clinical Support [facility] [address] [place] [phone] 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 RN [address] [place] [address] 09/26/2025 3:00 PM EST Office Visit [facility] [address] [place] [phone] Ernie Noriega MD [address] [place] [phone] documented as of this encounter Visit Diagnoses Diagnosis Pain Generalized pain documented in this encounter Additional Health Concerns Assessment Noted Time PHQ-9 Depression Total Score: 0 12/02/19 23 2:38 PM EST documented as of this encounter Care Teams Staff Antisubmarine Officer Relationship Specialty Start Date End Date Ernie Noriega MD [address] [place] [phone] PCP - General Internal Medicine 08/25/19 [facility] 03/31/25 05/25/25 [facility] 05/25/25 06/13/25 [facility] 05/25/25 06/19/25 [facility] 06/07/25 documented as of this encounter
--- OUTSIDE RECORDS SUMMARY | 2025-08-04 15:51 | XMS_ITS | Clinical Summary ---
Author Organization [employer] Address [address] [place] [address] Care Team Providers Care Biztalk Administrator Name Role Phone Ernie Noriega MD Primary Care Provide r Allergies No known active allergies Medications zolpidem (Ambien) 10 MG tablet Take 1 tablet by mouth. 019 Active albuterol 108 (90 Base) MCG/ACT inhaler Inhale 2 puffs every 4 (four) hours if needed. 019 Active Banophen 25 MG capsule Take 1-2 capsules by mouth if needed at bedtime. 023 Active escitalopram (Lexapro) 5 MG tablet Take 1 tablet by mouth in the morning. 023 Active tamsulosin (Flomax) 0.4 MG 24 hr capsule Take 1 capsule by mouth 1 (one) time each day. 022 Active Multiple Vitamins-Minerals (Centrum Women) tablet Take 1 tablet by mouth 1 (one) time each day. OTC Active omega-3 (Fish Oil) 1000 MG capsule Take 1,000 mg by mouth in the morning. OTC Active valACYclovir (Valtrex) 1 g tablet Take 2 tabs twice daily for one day per flare 12 tablet 023 Active Blood Pressure kitIndications:Es sential hypertension Use daily 1 kit 024 Active Acetaminophen Extra Strength 500 MG tabletIndications :Pain TAKE 1 TABLET BY MOUTH EVERY 12 HOURS IF NEEDED FOR PAIN 60 tablet 3 025 Active hydroCHLOROthiazi de (HYDRODiuril) 25 MG tabletIndications :Primary hypertension TAKE 1 TABLET BY MOUTH EVERY MORNING 90 tablet Active montelukast (Singulair) 10 MG tabletIndications :Mild persistent asthma without complication TAKE 1 TABLET BY MOUTH EVERY DAY 90 tablet Active Advair Diskus 500-50 MCG/ACT aerosol powder Take 1 puff by mouth 2 times daily. Active bethanechol (Urecholine) 25 MG tablet Take 1 tablet by mouth 3 times daily. Active methocarbamol (Robaxin) 500 MG tablet Take 1 tablet by mouth if needed in the morning, at noon, in the evening, and at bedtime for muscle spasms. Active sennosides (Senokot) 8.6 MG tablet Take 8.6 mg by mouth at bedtime. Active morphine CR (MS Contin) 15 MG 12 hr tablet Take 1 tablet by mouth every 12 (twelve) hours. Do not crush, chew, or split. Active lidocaine (Lidoderm) 5 % patchIndications: Primary osteoarthritis of knee, unspecified laterality APPLY 1 TO 2 PATCHES TOPICALLY AND LEAVE ON UP TO 12 HOURS DAILY IF NEEDED FOR PAIN 60 patch 1 025 Active gabapentin (Neurontin) 300 MG capsuleIndication s:Chronic midline low back pain without sciatica TAKE 2 CAPSULES BY MOUTH 3 TIMES DAILY 180 capsule 1 025 Active omeprazole (PriLOSEC) [address] capsuleIndication s:Gastritis without bleeding, unspecified chronicity, unspecified gastritis type TOME 1 CAPSULA POR VIA ORAL TODOS [place] SUAREZ BEFORE A MEAL 90 capsule 3 025 Active fluticasone (Flonase) 50 MCG/ACT nasal sprayIndications: Seasonal allergies USE 2 SPRAYS INTO EACH NOSTRIL 2 TIMES DAILY 48 mL 025 Active polyethylene glycol, PEG, 3350 (GaviLAX) 17 GM/SCOOP powderIndications :Constipation, unspecified constipation type TAKE 17G ONCE DAILY FOR 3 DAY AND THEN NEEDED 510 g 2 025 Active oxyCODONE (Roxicodone) 5 MG immediate release tabletIndications :Chronic midline low back pain without sciatica Take 1 tablet (5 mg) by mouth every 6 (six) hours if needed for severe pain. 112 tablet 025 Active albuterol (2.5 MG/3ML) 0.083% nebulizer solution INHALE THE CONTENTS OF 1 VIAL WITH NEBULIZER 3 TIMES A DAY 75 mL 1 Active naloxone (Narcan) 4 mg/0.1 mL nasal spray Administer 1 spray (4 mg) into affected nostril(s) if needed for opioid reversal. May repeat every 2-3 minutes if needed, alternating nostrils, until medical assistance becomes available. 2 each 2 025 2025 Active amoxicillin (Amoxil) 500 MG capsule Take 1 capsule (500 mg) by mouth every 8 (eight) hours for 7 days. 21 capsule 025 2024 Active albuterol (2.5 MG/3ML) 0.083% nebulizer solution INHALE THE CONTENTS OF 1 VIAL WITH NEBULIZER 3 TIMES A DAY 75 mL 1 025 2024 Discontinued oxyCODONE (Roxicodone) 5 MG immediate release tabletIndications :Chronic midline low back pain without sciatica Take 1 tablet (5 mg) by mouth every 6 (six) hours if needed for severe pain. 112 tablet 025 2024 Discontinued(R eorder (will not trigger notification to Pharmacy)) Active Problems Problem Noted Date Diagnosed Date Periodontal disease 07/28/2025 Pain, dental 07/28/2025 Acute pain of right shoulder 07/06/2025 Assessment [...] treated at [facility] by Dr Clint Newberry. Hx of AP fusion from L4-sacrum in 2003. She has received epidural injections initially with good results but that is no longer the case. Pt developed lumbar spinal stenosis and on 01/14/2021 underwent Posterior neural foraminotomy L2-L3 by Dr. Bailey. She was admitted to [facility] from 11/13/2022 until 11/20/2022 due to worsening low back pain with radiation to her right thigh and right leg after an experimental thoracic spinal stimulation procedure at the surgery center [facility] (She was referred there by [facility]). Procedure was aborted after pt experienced severe [...] does not want to follow-up with [facility] d/t the severe pain she experienced with [...] care of Orthopaedic specialist Dr Lees at [facility]. Pt would like to hold off on procedure until her back feels better. I contacted the office of Orthopaedic surgeon who stated this was an elective procedure and was ok with delaying until pt felt ready Assessment & Plan (12/04/2022 8:31 AM EST): Pt had initially come in for a Preoperative exam. Under the care of Orthopaedic specialist Dr Lees at [facility]. Pt would like to hold [...] recommended by [facility] treating physician. pt utilizes the liquid form. She is no longer under the care of [facility] I had been prescribing tramadol to use [...] recommended by [facility] treating physician. pt utilizes the liquid form. She is no longer under the care of [facility] I had been prescribing tramadol to use [...] Dr Soto who referred her back to [facility] for back pain History of total knee [...] Under the care of Dr Almeida at [facility]. see med list for current [...] past at [facility] by Dr Clint Newberry. Hx of AP fusion from L4-sacrum in 2004. She received epidural injections with good results in the past. but that is no longer the case. Pt developed lumbar spinal stenosis and on 01/14/2021 underwent Posterior neural foraminotomy L2-L3by Dr. Bailey. Admitted to [facility] from 11/13/2022 until 11/20/2022 due to worsening low back pain with radiation to her right thigh and right leg after an experimental thoracic spinal stimulation procedure at the surgery center of [place] (She was referred there by [facility]). Procedure was aborted after pt experienced severe [...] the pain clinic. Pt was evaluated at [facility] Pain clinic: 11/08/2024 they did an MRI [...] encroachment seen. Subsequently she was referred to [facility] Neurosurgery, Their assesment was that [...] care of Dr Christopher Peres Neurosurgeon at [facility] He reviewed her MRI thoracic [...] past at [facility] by Dr Clint Newberry. Hx of AP fusion from L4-sacrum in 2003. She received epidural injections with good results in the past. but that is no longer the case. Pt developed lumbar spinal stenosis and on 01/14/2021 underwent Posterior neural foraminotomy L2-L3by Dr. Bailey. Admitted to [facility] from 11/13/2022 until 11/20/2022 due to worsening low back pain with radiation to her right thigh and right leg after an experimental thoracic spinal stimulation procedure at the surgery center of [place] (She was referred there by [facility]). Procedure was aborted after pt experienced severe [...] the pain clinic. Pt was evaluated at [facility] Pain clinic: 11/08/2024 they did an MRI [...] encroachment seen. Subsequently she was referred to [facility] Neurosurgery, Their assesment was that [...] care of Dr Christopher Peres Neurosurgeon at [facility] He reviewed her MRI thoracic [...] past at [facility] by Dr Clint Newberry. Hx of AP fusion from L4-sacrum in 2003. She received epidural injections with good results in the past. but that is no longer the case. Pt developed lumbar spinal stenosis and on 01/14/2021 underwent Posterior neural foraminotomy L2-L3by Dr. Bailey. She was admitted to [facility] from 11/13/2022 until 11/20/2022 due to worsening low back pain with radiation to her right thigh and right leg after an experimental thoracic spinal stimulation procedure at the surgery center [facility] (She was referred there by [facility]). Procedure was aborted after pt experienced severe [...] the pain clinic. Pt was evaluated at [facility] Pain clinic: 11/08/2024 they did an MRI [...] encroachment seen. Subsequently she was referred to [facility] Neurosurgery, Their assesment was that [...] care of Dr Christopher Peres Neurosurgeon at [facility] He reviewed her MRI thoracic [...] past at [facility] by Dr Clint Newberry. Hx of AP fusion from L4-sacrum in 2003. She received epidural injections with good results in the past. but that was no longer the case. Pt developed lumbar spinal stenosis and on 01/14/2021 underwent Posterior neural foraminotomy L2-L3by Dr. Bailey. She was admitted to [facility] from 11/13/2022 until 11/20/2022 due to worsening low back pain with radiation to her right thigh and right leg after an experimental thoracic spinal stimulation procedure at the surgery center [facility] (She was referred there by [facility]). Procedure was aborted after pt experienced severe [...] the pain clinic. Pt was evaluated at [facility] Pain clinic: 11/08/2024 they did an MRI [...] encroachment seen. Subsequently she was referred to [facility] Neurosurgery, seen Their assesment [...] past at [facility] by Dr Clint Newberry. Hx of AP fusion from L4-sacrum in 2003. She received epidural injections with good results in the past. but that was no longer the case. Pt developed lumbar spinal stenosis and on 01/14/2021 underwent Posterior neural foraminotomy L2-L3by Dr. Bailey. She was admitted to [facility] from 11/13/2022 until 11/20/2022 due to worsening low back pain with radiation to her right thigh and right leg after an experimental thoracic spinal stimulation procedure at the surgery center of [place] (She was referred there by [facility]). Procedure was aborted after pt experienced severe [...] treatment at [facility] by Dr Clint Newberry. Hx of AP fusion from L4-sacrum in 2003. She has received epidural injections with good results in the past. but that was no longer the case. Pt developed lumbar spinal stenosis and on 01/14/2021 underwent Posterior neural foraminotomy L2-L3by Dr. Bailey. Patient is here for a follow up. She was recently admitted to [facility] from 11/13/2022 until 11/20/2022 due to worsening low back pain with radiation to her right thigh and right leg after an experimental thoracic spinal stimulation procedure at the surgery [facility] (She was referred there by [facility]). Procedure was aborted after pt experienced severe [...] does not want to follow-up with [facility] d/t the severe pain she experienced with [...] treatment at [facility] by Dr Clint Newberry. Hx of AP fusion from L4-sacrum in 2003. She has received epidural injections with good results in the past. but that was no longer the case. Pt developed lumbar spinal stenosis and on 01/14/2021 underwent Posterior neural foraminotomy L2-L3by Dr. Bailey. She was admitted to [facility] from 11/13/2022 until 11/20/2022 due to worsening low back pain with radiation to her right thigh and right leg after an experimental thoracic spinal stimulation procedure at the surgery [facility] (She was referred there by [facility]). Procedure was aborted after pt experienced severe [...] does not want to follow-up with [facility] d/t the severe pain she experienced with [...] treatment at [facility] by Dr Clint Newberry. Hx of AP fusion from L4-sacrum in 2003. She has received epidural injections with good results in the past. but that was no longer the case. Pt developed lumbar spinal stenosis and on 01/14/2021 underwent Posterior neural foraminotomy L2-L3by Dr. Bailey. Patient is here for a follow up. She was recently admitted to [facility] from 11/13/2022 until 11/20/2022 due to worsening low back pain with radiation to her right thigh and right leg after an experimental thoracic spinal stimulation procedure at the surgery center [facility] (She was referred there by [facility]). Procedure was aborted after pt experienced severe [...] does not want to follow-up with [facility] d/t the severe pain she experienced with [...] Encounters Date Type Department Care Team Description 07/28/2025 1:00 PM EDT Office Visit [facility] [address] [place] [address] Shmuel Vega DDS Periodontal disease (Primary Dx); Pain, dental 07/28/2025 Travel 07/17/2025 Refill [facility] [address] [place] [address] Ofelia Melgar MD 07/17/2025 Refill [facility] [address] [place] [address] Ernie Noriega MD Pain 07/17/2025 Refill [facility] [address] [place] [address] Ernie Noriega MD Chronic midline low back pain without sciatica 07/06/2025 11:15 AM EDT Office Visit [facility] [address] [place] [address] Ernie Noriega MD Chronic midline low back pain without sciatica (Primary Dx); Acute pain of right shoulder 07/06/2025 Travel 07/05/2025 Telephone [facility] [address] [place] [address] Ernie Noriega MD chart prep 07/03/2025 Refill [facility] [address] [place] [address] Wandy Persaud ANP Constipation, unspecified constipation type 06/29/2025 Travel 06/26/2025 Refill [facility] [address] [place] [address] Ernie Noriega MD Chronic midline low back pain without sciatica 06/26/2025 Refill [facility] [address] [place] [address] Ernie Noriega MD Gastritis without bleeding, unspecified chronicity, unspecified gastritis type 06/26/2025 Refill [facility] [address] [place] [address] Ernie Noriega MD Seasonal allergies 06/26/2025 Refill [facility] [address] [place] [address] Ernie Noriega MD Chronic midline low back pain without sciatica; Gastritis without bleeding, unspecified chronicity, unspecified gastritis type; Seasonal allergies 06/18/2025 Refill [facility] [address] [place] [address] Ernie Noriega MD Primary osteoarthritis of knee, unspecified laterality 06/16/2025 Patient Outreach [facility] [address] [place] [address] Ernie Noriega MD Care Coordination (A Agencies) 06/15/2025 Results Follow-Up [facility] [address] [place] [address] Wandy Persaud ANP Hemoglobin A1c, Basic Metabolic Panel, CBC auto differential, Iron And Total Iron Binding Capacity 06/15/2025 Results Follow-Up [facility] [address] [place] [address] Wandy Persaud ANP US VENOUS DUPLEX LE RT 06/13/2025 Refill [facility] [address] [place] [address] Ernie Noriega MD Chronic midline low back pain without sciatica 06/09/2025 Orders Only [facility] [place] [address] Wandy Persaud ANP 06/07/2025 Telephone [facility] [place] [address] Ernie Noriega MD FYI 06/06/2025 10:30 AM EDT Office Visit [facility] [place] [address] Wandy Persaud ANP Hospital discharge follow-up (Primary Dx); Status post osteotomy; Status post laminectomy with spinal fusion; Constipation, unspecified constipation type; Acute pain of right knee; Anemia, unspecified type; Chronic right shoulder pain 06/06/2025 Travel 05/30/2025 Refill [facility] [place] [address] Ernie Noriega MD 05/30/2025 Travel 05/26/2025 Telephone [facility] [place] [address] Ernie Noriega MD Referral 05/24/2025 Telephone [facility] [place] [address] Ernie Noriega MD Verbal Order 05/23/2025 Patient Outreach [facility] [place] [address] Ernie Noriega MD Transition Of Care (Tcm) (HDF- Transferred to Rehab due to Surgery ) 05/09/2025 1:00 PM EDT Office Visit [facility] [place] [address] Ernie Noriega MD Chronic midline low back pain without sciatica (Primary Dx) 05/09/2025 Travel 05/08/2025 Telephone [facility] [place] [address] Ernie Noriega MD Chart Prep from Last 3 Months Immunizations Immunization Administration [...] Past Smokeless Tobacco: Never Tobacco Cessation:Counseling Given: No Alcohol Use Standard Drinks/Week Comments Never 0 [...] Sign Reading Time Taken Comments Blood Pressure 128/80 07/28/2025 1:19 PM EDT Pulse 70 07/28/2025 1:19 PM EDT Temperature 36 C (96.8 F) 07/06/2025 [...] 9:00 AM EST Clinical Support [facility] [address] [place] [phone] 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 RN [address] [place] [address] 09/26/2025 3:00 PM EST Office Visit [facility] [address] [place] [phone] Ernie Noriega MD [address] [place] [address] Health Maintenance Due Date Last Done Comments CT Colonography 1965 FIT DNA/Cologuard 1963 FIT 1963 FOBT 1965 HIV Screening 1965 Sigmoidoscopy 1965 Pap Smear 1984 Dental X-Ray: Bitewings 09/17/2012 09/16/2011, 03/05 Dental X-Ray: Full Mouth 09/17/2014 09/16/2011 Dental Oral Exam 12/18/2022 06/19/2022, , 09/27/2019, Additional history exists Dental Prophylaxis 12/18/2022 06/19/2022, 0 03/07/2021, 11/08/2019, Additional history exists RSV Patients and Patients Aged 60 years or older (1 - Risk 60-74 years 1-dose series) 2023 Alcohol/Substance Use Screening 10/13/2025 10/13/2024 Cervical Cancer Screening 12/19/2025 HPV/Cotest 12/19/2025 12/19/2020, 12/10, 09/02/2019 Depression Screening 01/12/2026 01/12/2025, 01/13/20 25 SDOH Screening 01/12/2026 01/12/2025 Disability Screening 04/04/2026 04/04/2025 Tobacco Screening 07/28/2026 07/28/2025 Mammogram 01/05/2027 01/05/2025, 12/11, 12/23/2022, Additional history exists Colonoscopy 03/18/2029 03/18/2024, 0604/2024, 06/15/2013 Colorectal Cancer Screening 03/18/2029 Lipid Panel 01/25/2030 01/25/2025, 10/13, 03/27/2021 DTaP/Tdap/Td Vaccines (3 - Td or Tdap) 04/04/2031 04/04/2021, 03/10/2014, 05/12/2012 Zoster Vaccines Completed 08/15/2020, 05/26/2020 Hepatitis C Screening Completed 11/07/2022 Pneumococcal Vaccine: 50+ Years Completed 05/13/2023, 11/12/2015, 05/12/2012 COVID-19 Vaccine Completed 07/15/2025, 02/2022, 08/28/2021, Additional history exists Influenza Vaccine Completed 07/15/2025, , 07/21/2023, Additional history exists HIB Vaccines Aged Out [...] Procedure Name Priority Date/Time Associated Diagnosis Comments CASE PRESENTATION, DETAILED AND EXTENSIVE TREATMENT PLANNING Routine 07/28/2025 1:00 PM EDT INTRAORAL - PERIAPICAL FIRST RADIOGRAPHIC IMAGE Routine 07/28/2025 1:00 PM EDT LIMITED ORAL EVALUATION - PROBLEM FOCUSED Routine 07/28/2025 1:00 PM EDT 21 EXTRACTION, ERUPTED TOOTH OR EXPOSED ROOT (ELEVATION/FORCEPS REMOVAL) Routine 07/28/2025 1:00 PM EDT XR SHOULDER 2+ VIEWS RIGHT Routine 07/06/2025 [...] LE RT Routine 06/09/2025 9:18 AM EDT LIPID PANEL, STANDARD Routine 01/25/2025 8:37 AM EDT Essential hypertension BI MAMMOGRAM SCREENING TOMOSYNTHESIS BILATERAL Routine 01/05/2025 10:00 AM EDT HM COLONOSCOPY Routine 03/18/2024 HEPATITIS C AB W/REFL TO HCV RNA, QN, PCR Routine 11/07/2022 8:24 AM EST Essential hypertension PROPHYLAXIS - ADULT Routine 06/19/2022 1 2:00 AM EDT PERIODIC ORAL EVALUATION - ESTABLISHED PATIENT Routine 06/19/2022 12:00 AM EDT ZZZ HISTORICAL HPV E6/E7 RFLX SERGIO 16 18/45 Routine 12/19/2020 3:40 PM EST INTRAORAL - COMPLETE SERIES OF RADIOGRAPHIC IMAGES Routine 09/16/2011 12:00 AM EST from Last 3 Months or Most Recently Relevant to Health Maintenance Results * XR Shoulder 2+ Views Right (07/06/2025 12:35 PM EDT) Anatomical Region Laterality Modality Upper Extremities, Shoulder Right Radi ographic Imaging 07/06/2025 12:3 5 PM EDT Narrative 07/06/2025 12:49 PM EDT [address] [address] XRay Report Signed Patient: Miguelina Julien MR#: [id number] 12 : 1965 Acct:[id number] Age/Sex: 60 / F ADM Date: 07/06/25 Loc: HO.HHCX Attending Dr: Ernie Merritt MD Ordering Physician: Ernie Merritt MD Date of Service: 07/06/25 Procedure(s): XR shoulder RT min 2V Accession Number(s): [id number] cc: Ernie Merritt MD Reason for Exam: [...] 07/06/25 1246 DD/ 1235 TD/TT: 07/06/25 1235 [employer]: Procedure Note Donotuseinterpreter, Image - 07/06/[address] [address] XRay Report Signed Patient: Miguelina JulienMR#: [id number] 12 : 1965Acct:[id number] Age/Sex: 60 / FADM Date: 07/06/25 Loc: HO.HHCX Attending Dr: Ernie Merritt MD Ordering Physician: Ernie Merritt MD Date of Service: 07/06/25 Procedure(s): XR shoulder RT min 2V Accession Number(s): [id number] cc: Ernie Merritt MD Reason for Exam: [...] 07/06/25 1246 DD/ 1235 TD/TT: 07/06/25 1235 [employer]: us Ernie Ro MD IMG XR PROCEDURES Fin al Result * (ABNORMAL) CBC auto differential (06/09/2025 9:57 AM EDT) White Blood Count 8.0 4.8 - 10.8 X10*3/uL [facility] Red Blood Count 3.73(L) 4.20 - 5.50 X10*6/uL [facility] Hemoglobin 10.0(L) 12.0 - 16.0 g/dl [facility] Hematocrit 31.8(L) 37.0 - 47.0 % [facility] Mean Corpuscular Volume 85.3 80.0 - 98.0 fL [facility] Mean Corpuscular Hemoglobin 26.8(L) 27.0 - 33.0 pg [facility] Mean Corpuscular HGB Conc 31.4 31.0 - 35.0 g/dl [facility] Red Cell Distribution Width 14.8 11.0 - 16.0 % [facility] Platelet Count 577(H) 160 - 400 X10*3/uL [facility] Mean Platelet Volume 9.4 9.4 - 12.3 fL [facility] [facility] Neutrophils Percent Auto 66.9 45 - 73 % [facility] Imm Gran Pct Auto 1.0(H) 0.0 - 0.4 % [facility] Lymphocytes Percent Auto 23.8 20 - 40 % [facility] Monocytes Percent Auto 5.9 2 - 11 % [facility] Eosinophils Percent Auto 1.5 0 - 4 % [facility] Basophils Percent Auto 0.9 0 - 2 % [facility] NRBC Pct Auto 0.0 0.0 - 0.2 /100WBC [facility] Neutrophils Absolute Auto 5.3 2.0 - 8.3 x10*3/uL [facility] Imm Gran Abs Auto 0.08(H) 0.00 - 0.03 X10*3/uL [facility] Lymphocytes Absolute Auto 1.9 1.2 - 4.9 X10*3/uL [facility] Monocytes Absolute Auto 0.5 0.1 - 1.2 X10*3/uL [facility] Eosinophils Absolute Auto 0.1 0.0 - 0.4 X10*3/uL [facility] Basophils Absolute Auto 0.1 0.0 - 0.2 X10*3/uL [facility] NRBC Abs Auto 0.000 0.0 - 0.012 X10*3/uL [facility] Blood Venous blood specimen / Unknown 06/09/2025 9:57 AM EDT 06/09/2025 9:57 AM EDT Wandy Persaud ANP LAB BLOOD ORDERABLES Final Resul t Performing Organization Address City/[facility] Co de Phone Number [facility] [address] [place] [phone] * Iron And Total Iron Binding Capacity (06/09/2025 9:57 AM EDT) Iron 40 30 - 160 mcg/dL [facility] Total Iron Binding Capacity 267 228 - 428 mcg/dL [facility] Percent Iron Saturation 15 15 - 50 % [facility] Unsaturated Iron Binding 227 ug/dL [facility] Blood Venous blood specimen / Unknown 06/09/2025 9:57 AM EDT 06/09/2025 9:57 AM EDT Wandy Persaud ANP LAB BLOOD ORDERABLES Final Resul t Performing Organization Address [facility] Co de Phone Number [facility] [address] [place] [phone] * Hemoglobin A1c (06/09/2025 9:57 AM EDT) Hemoglobin A1c 5.4 <6.0 % [facility] Comment:Hemoglobin A1C Refer ence Range Adults: 4.8 - 6.0 % Non diabetic: < 6.0 % Goal: < 7.0 %Additional Action Suggested: > 8.0 %Note: Hemoglobin A1c results are invalid for patients with abnormal amounts of HbF. Blood transfusions may impact the HbA1c concentration in the patient sample. Estimated Average Glucose 108 mg/dL [facility] Comment:eAG = Estimated ave rage glucose which is %A1C expressed asaverage glucose, using the formula of the F6H-MsydxcgNslocym Glucose study (ADAG), Diabetes Care, Vol.31,#8,2007 Blood Venous blood specimen / Unknown 06/09/2025 9:57 AM EDT 06/09/2025 9:57 AM EDT Wandy Persaud [facility] LAB BLOOD ORDERABLES Final Resul t [facility] [address] [place] [phone] * (ABNORMAL) Basic Metabolic Panel (06/09/2025 9:57 AM EDT) Sodium 141 135 - 145 mmol/L [facility] Potassium 3.8 3.3 - 5.1 mmol/L [facility] Chloride 105 96 - 108 mmol/L [facility] Carbon Dioxide 27 22 - 29 mmol/L [facility] Anion Gap 13 12 - 20 [facility] Urea Nitrogen (BUN) 17(H) 9 - 16 mg/dL [facility] Creatinine, Serum 0.59 0.5 - 1.4 mg/dL [facility] Estimated Glomerular Filt Rate >60 [facility] Comment:Chronic Kidney Disea se: Estimated GFR < 60 mL/min/1.46o0Hijvrc Kidney Disease: Estimated GFR < 15 mL/min/1.73m2 Glucose 108 60 - 115 mg/dL [facility] Calcium 9.4 8.4 - 10.2 mg/dL [facility] Blood Venous blood specimen / Unknown 06/09/2025 9:57 AM EDT 06/09/2025 9:57 AM EDT us Wandy Persaud ANP LAB BLOOD ORDERABLES Final Resul t [facility] [address] [place] [address] [phone] * US VENOUS DUPLEX LE RT (06/09/2025 9:18 AM EDT) Anatomical Region Laterality Modality Abdomen Ultrasound 06/09/2025 9:18 AM EDT Narrative 06/09/2025 10:02 AM EDT [address] [address] Ultrasound Report Signed Patient: Miguelina Julien MR#: [id number] [birth year] : 1965 Acct:[id number] Age/Sex: 60 / F ADM Date: 06/09/25 Loc: .US Attending Dr: Wandy Persaud NP Ordering Physician: WANDY PERSAUD NP Date of Service: 06/09/25 Procedure(s): US venous duplex LE RT Accession Number(s): [id number] cc: Ernie Merritt MD; WANDY PERSAUD NP [...] OV> 06/09/25 1000 DD/ 7 TD/TT: 06/09/25926 [employer]: Procedure Note Ashtynter, Image - 06/09/2025 [place] [address] Ultrasound Report Signed Patient: Miguelina JulienMR#: [id number] 12 : 1965Acct:[id number] Age/Sex: 60 / FADM Date: 06/09/25 Loc: HO.US Attending Dr: Wandy Persaud NP Ordering Physician: WANDY PERSAUD NP Date of Service: 06/09/25 Procedure(s): US venous duplex LE RT Accession Number(s): [id number] cc: Ernie Merritt MD; WANDY PERSAUD NP [...] OV> 06/09/25 1000 DD/ 7 TD/TT: 06/09/25926 [employer]: us Wandy Persaud ANP IMG US PROCEDURES Edited Result - Final * (ABNORMAL) Lipid Panel, Standard (01/25/2025 8:37 AM EDT) Triglycerides 165(H) <150 mg/dL [facility] Comment:Desirable Triglyceri de: less than 150 mg/dLBorderline High Triglyceride 150-199 mg/dLHigh Triglyceride: 200-499 mg/dLVery High Triglyceride: greater than or equal to 5OO mg/dL Cholesterol 232(H) <200 mg/dL [facility] Comment:Desirable Cholestero l: less than 200 mg/dLBorderline High Cholesterol: 200-239 mg/dLHigh Cholesterol: greater than 239 mg/dL LDL Cholesterol Calculated 133(H) <100 mg/dL [facility] Comment:Desirable LDL: less than 100 mg/dLNear Optimal/Above Optimal LDL: 110- 129 mg/dLBorderline High LDL: 130-159 mg/dLHigh LDL: 160-189 mg/dLVery High LDL: greater than or equal to 190 mg/dL HDL Cholesterol 66 >40 mg/dL [facility] Comment:Desirable HDL: great er than 40 mg/dL Note: This HDL assay may give artificially low results in patients with liver disease. Blood Venous blood specimen / Unknown 01/25/2025 8:37 AM EDT 01/25/2025 11:14 AM EDT Ernie Ro MD LAB BLOOD ORDERABLES Final Result [facility] [address] [place] [phone] * BI Mammogram Screening Tomosynthesis Bilateral (01/05/2025 10:00 AM EDT) Anatomical Region Laterality Modality Breast Bilateral Mammography 01/05/2025 10:0 0 AM EDT Narrative 01/13/2025 2:49 PM EDT [facility] [address] [place] [address] [place] [address] Mammography Report Signed Patient: Miguelina Julien MR#: [id number] [birth year] : 1965 Acct:[id number] Age/Sex: 59 / F ADM Date: 01/05/25 Loc: HO.MAMMO Attending Dr: Ernie Merritt MD Ordering Physician: Ernie Merritt MD Resu lts: 1Negative Date of Service: 01/05/25 Follow Up: 1 Year From Orig inal Mammogram Procedure(s): MM tomosynthesis screening BI Accession Number(s): [id number] cc: Ernie Merritt MD EXAMINATION: MM SCREENING [...] 01/13/25 1447 DD/ 1000 TD/TT: 01/05/25 1015 [employer]: Procedure Note Donotuseinterpreter, Image - 01/13/2025 [facility] [address] [place] [address] Mammography Report Signed Patient: Miguelina Julien#: [id number] 12 : 1965Acct:[id number] Age/Sex: 59 / FADM Date: 01/05/25 Loc: DANIELE Attending Dr: Ernie Merritt MD Ordering Physician: Ernie Merritt MDResu lts: 1Negative Date of Service: 01/05/25Follow Up: 1 Year From Orig ina Mammogram Procedure(s): MM tomosynthesis screening BI Accession Number(s): [id number] cc: Ernie Merritt MD EXAMINATION: MM SCREENING [...] 01/13/25 1447 DD/ 1000 TD/TT: 01/05/25 1015 [employer]: Ernie Ro MD IMG BI PROCEDURES Fin al Result * (ABNORMAL) Hm Colonoscopy (03/18/2024) Colonoscopy Abnormal( A) Normal Comment:Tubular Adenoma 03/18/2024 Historical Provider HEALTH MAINTENANCE Final Result * Hepatitis C Antibody with Reflex to HCV, RNA, Quantitative, Real-Time PCR (11/07/2022 8:24 AM EST) Hepatitis C Antibody NON-REACT TAMARA NON-REACT TAMARA [facility] [place] [employer] Index 0.12 <1.00 [facility] [place] [employer] Comment: HCV antibody was non-reactive. There is no laboratory evidence of HCV infection. In most cases, no further action is required. However, if recent HCV exposure is suspected, a test for HCV RNA (test code 40381) is suggested. For additional information please refer to http://bluebottlebiz.[employer]/faq/TSC16n1 (This link is being provided for informational/ educational purposes only.) Blood Venous blood specimen / Unknown 11/07/2022 8:24 AM EST 11/07/2022 8:25 AM EST Narrative [facility] - 11/08/2022 12:51 AM EST FASTING:YES FASTING: YES Ernie Ro MD LAB BLOOD ORDERABLES Final Result [facility] [address], [place] [address] [facility] [place] [employer] [address] [facility], (Nl2) [place] [address] * HPV E6/E7 RFLX SERGIO 16 18/45 (12/19/2020 3:40 PM EST) Pathologist [facility] HPV 16 RNA [facility] HPV 18/45 RNA [facility] HPV E6 E7 ADD [facility] HPV mRNA E6/E7 rflx Not Detected Not Detected [facility] Comment: Methodology: Radio Presenter-Mediated Amplification This assay detects E6/E7 viral messenger RNA (mRNA) from 14 high-risk HPV types (16,18,31,33,35,39,45,51,52,56,58,59,66,68). The analytical performance characteristics of this assay have been determined by [facility]. The modifications have not been cleared or approved by the FDA. This assay has been validated pursuant to the CLIA regulations and is used for clinical purposes. For additional information, please refer to http://bluebottlebiz.[employer]/faq/XPV107p6 (This link if provided for information/ educational purposes only.) THIS TEST WAS PERFORMED AT: [employer] [address] [place] [address] [address]LO[address],[place] [address] FLACA ANTONY MD 12/19/2020 3:40 PM EST us Historical Provider HISTORICAL/NON ORDERABLE LABS Final Result [facility] [address] from Last 3 Months or Most Recently Relevant to Health Maintenance Insurance [facility] C3 DENTAL-[facility] MEDICAID STAND ADULT Care Teams Biztalk Administrator Relationship Specialty Start Date End Date Ernie Noriega MD [address] [place] [phone] PCP - General Internal Medicine 08/25/19 [facility] A 06/07/25
--- OUTSIDE RECORDS SUMMARY | 2025-08-04 15:51 | XMS_ITS | Encounter Summary ---
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 Pt. States that she went to [...] leg pain now Please contact pt at [phone]. (Mongolian Speaker) documented in this encounter Plan of Treatment Upcoming Encounters Date Type Department Care Team (Late st Contact Info) Description 09/01/2025 9:00 AM EST Clinical Support [address] [address] 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 RN [address] [place] [address] 09/26/2025 3:00 PM EST Office Visit [facility] [address] [place] [address] Ernie Noriega MD [address] [place] [phone] documented as of this encounter Visit Diagnoses Not on filedocumented in this encounter Additional Health Concerns Assessment Noted Time PHQ-9 Depression Total Score: 2 01/21/20 24 1:25 PM EDT documented as of this encounter Care Teams Marketing Manager Health Communications Relationship Specialty Start Date End Date Ernie Noriega MD [address] [place], [place] [address] [place] [address] PCP - General Internal Medicine 08/25/19 [facility] LENZ 03/31/25 05/25/25 [facility] 05/25/25 06/13/25 [facility] 05/25/25 06/19/25 [facility] 06/07/25 documented as of this encounter
--- OUTSIDE RECORDS SUMMARY | 2025-08-04 15:51 | XMS_ITS | Encounter Summary ---
Author Organization [facility] Address [address] [place] [address] Care Team Providers Care Sole Filler Name Role Phone Ernie Merritt Primary Care Provider + Encounter Details Date Type Department Care Team (Late st Contact Info) Description 08/01/2025 [employer] Message [facility] [address] [place] [address] [phone] [employer], Generic Provider [address] [place], [place] [phone] FMLA forms requested Social History Tobacco Use Types Packs/Day Years [...] Info) Description 08/16/2025 1:15 PM EST Follow-Up [facility] [address] [place], [place] [phone] Christopher Peres MD [address] [place], [place] [phone] documented as of this encounter Visit Diagnoses Not on filedocumented in this encounter Care Teams Sole Filler Relationship Specialty Start Date End Date Ernie Merritt [address] [place] [address] PCP - General Internal Medicine 11/29/24 documented as of this encounter
--- OUTSIDE RECORDS SUMMARY | 2025-08-04 15:51 | XMS_ITS | Encounter Summary ---
Author Organization [employer] Address [address] [facility] 7t [place] [address] Care Team Providers Care Wood Heel Cementer Name Role Phone Ernie Noriega MD Primary Care Provide r Reason for Visit * Reason Onset Date Comments Med Refill 01/31/2025 Encounter Details Date Type Department Care Team ([facility] st Contact Info) Description 01/31/2025 Refill [facility] [address] [place] [address] Ernie Noriega MD [address] [place] [address] Pain Social History Tobacco Use Types Packs/Day [...] Description 09/01/2025 9:00 AM EST Clinical Support [facility] [address] [place] [phone] 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, MARQUISE [address] [place] [address] 09/26/2025 3:00 PM EST Office Visit [address] [address] Ernie Noriega MD [address] [place] [address] documented as of this encounter Visit Diagnoses Diagnosis Pain Generalized pain documented in this encounter Additional Health Concerns Assessment Noted Time PHQ-9 Depression Total Score: 4 01/13/20 2:57 PM EDT documented as of this encounter Care Teams Wood Heel Cementer Relationship Specialty Start Date End Date Ernie Noriega MD [address] [place] [address] PCP - General Internal Medicine 08/25/19 [facility] 03/31/25 05/25/25 [place] [facility] 05/25/25 06/13/25 [facility] 05/25/25 06/19/25 [facility] 06/07/25 documented as of this encounter
--- OUTSIDE RECORDS SUMMARY | 2025-08-04 15:51 | XMS_ITS | Encounter Summary ---
Author Organization [employer] Address [address] [facility] 7t [place] [address] Care Team Providers Care Resolution Rep Name Role Phone Ernie Noriega MD Primary Care Provide r Reason for Visit * Reason Onset Date Comments Med Refill 07/17/2025 Encounter Details Date Type Department Care Team ([facility] st Contact Info) Description 07/17/2025 Refill [facility] [address] [place] [address] Ernie Noriega MD 230 [place] [address] Pain Social History Tobacco Use Types Packs/Day [...] is your housing situation today? I have orbinmerrick ramírez 01/21/[address] you [...] Description 09/01/2025 9:00 AM EST Clinical Support [facility] [address] [place] [address] 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, RN [address] [place] [address] 09/26/2025 3:00 PM EST Office Visit [address] [address] Ernie Noriega MD [address] [place] [address] documented as of this encounter Visit Diagnoses Diagnosis Pain Generalized pain documented in this encounter Additional Health Concerns Assessment Noted Time PHQ-9 Depression Total Score: 4 01/13/20 2:57 PM EDT documented as of this encounter Care Teams Resolution Rep Relationship Specialty Start Date End Date Ernie Noriega MD [address] [place] [phone] PCP - General Internal Medicine 08/25/19 [facility] KELLYA 06/07/25 documented as of this encounter
--- OUTSIDE RECORDS SUMMARY | 2025-08-04 15:51 | XMS_ITS | Encounter Summary ---
Author Organization [employer] Address [address] [facility] 7t [place] [address] Care Team Providers Care Seamer Panty Hose Name Role Phone Ernie Noriega MD Primary Care Provide r Reason for Visit * Reason Onset Date Comments Med Refill 11/03/2023 Encounter Details Date Type Department Care Team ([facility] st Contact Info) Description 11/03/2023 Refill [facility] [address] [place] [address] Ernie Noriega MD [address] [place] [address] Seasonal allergies Social History Tobacco Use Types [...] Description 09/01/2025 9:00 AM EST Clinical Support [facility] [address] [place] [phone] 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 RN [address] [place] [address] 09/26/2025 3:00 PM EST Office Visit [facility] [address] [place] [address] Ernie Noriega MD [address] [place] [address] documented as of this encounter Visit Diagnoses Diagnosis Seasonal allergies Allergic rhinitis, cause unspecified documented in this encounter Additional Health Concerns Assessment Noted Time PHQ-9 Depression Total Score: 0 12/02/19 23 2:38 PM EST documented as of this encounter Care Teams Seamer Panty Hose Relationship Specialty Start Date End Date Ernie Noriega MD [address] [place] [address] PCP - General Internal Medicine 08/25/19 [facility] 03/31/25 05/25/25 [facility] 05/25/25 06/13/25 [facility] 05/25/25 06/19/25 [facility] 06/07/25 documented as of this encounter
--- OUTSIDE RECORDS SUMMARY | 2025-08-04 15:51 | XMS_ITS | Encounter Summary ---
Author Organization [employer] Address [address] [facility] 7t [place] [address] Care Team Providers Care Seafood Service Team Member Name Role Phone Ernie Noriega MD Primary Care Provide r Reason for Visit * Reason Onset Date Comments Med Refill 09/18/2023 Encounter Details Date Type Department Care Team ([facility] st Contact Info) Description 09/18/2023 Telephone [facility] [address] [place] [address] Ernie Noriega MD [address] [place], [place] [phone] Med Refill Social History Tobacco Use Types [...] (Ultram) 50 MG tablet Please sent to [facility]/pharmacy #[id number] [place], [place] - [address] [place] [address] documented in this encounter Plan of Treatment Upcoming Encounters Date Type Department Care Team (Late st Contact Info) Description 09/01/2025 9:00 AM EST Clinical Support [facility] [address] [place] [address] 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 RN 505 [place] [address] 09/26/2025 3:00 PM EST Office Visit [facility] [address] [place] [address] Ernie Noriega MD [address] [place] [address] documented as of this encounter Visit Diagnoses Not on filedocumented in this encounter Additional Health Concerns Assessment Noted Time PHQ-9 Depression Total Score: 0 12/02/19 23 2:38 PM EST documented as of this encounter Care Teams Seafood Service Team Member Relationship Specialty Start Date End Date Ernie Noriega MD [address] [place] [phone] PCP - General Internal Medicine 08/25/19 [facility] LENZ 03/31/25 05/25/25 [facility] 05/25/25 06/13/25 [facility] 05/25/25 06/19/25 [place] [facility] 06/07/25 documented as of this encounter
--- OUTSIDE RECORDS SUMMARY | 2025-08-04 15:51 | XMS_ITS | Encounter Summary ---
Author Organization [employer] [facility] Address [address] [place] [address] 7t [place] [address] Care Team Providers Care Radio Engineering Teacher Name Role Phone Ernie Noriega MD Primary Care Provide r Encounter Details Date Type Department Care Team (Latest Contact Info) Description 03/07/2021 Abstract [facility] CON[facility] Dental, Provider, DDS Social History [...] AM EST Clinical Support [facility] [address] [place] [phone] 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 RN [address] [place] [address] 09/26/2025 3:00 PM EST Office Visit [facility] [address] [place] [address] [phone] Ernie Noriega MD [address] [place] [address] documented as of this encounter Visit Diagnoses Not on filedocumented in this encounter Care Teams Radio Engineering Teacher Relationship Specialty Start Date End Date Ernie Noriega MD [address] [place] [address] PCP - General Internal Medicine 08/25/19 [facility] KELLYA 03/31/25 05/25/25 [facility] 05/25/25 06/13/25 [facility] 05/25/25 06/19/25 [place] [facility] 06/07/25 documented as of this encounter
--- OUTSIDE RECORDS SUMMARY | 2025-08-04 15:51 | XMS_ITS | Encounter Summary ---
Author Organization [employer] Address [address] [facility] 7t [place] [address] Care Team Providers Care Assistant Store Director Name Role Phone Ernie Noriega MD Primary Care Provide r Reason for Visit * Reason Comments Med Refill Encounter Details Date Type Department Care Team ([facility] Contact Info) Description 04/01/2025 Refill [facility] MED[facility]INE [address] [place] [address] Perlita Myers MD 230 [place] [address] Mild persistent asthma without complication Social History [...] Description 09/01/2025 9:00 AM EST Clinical Support [facility] [address] [place] [address] 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, RN [address] [place] [address] 09/26/2025 3:00 PM EST Office Visit [facility] [address] [place] [address] Ernie Noriega MD [address] [place] [address] documented as of this encounter Visit Diagnoses Diagnosis Mild persistent asthma without complication documented in this encounter Additional Health Concerns Assessment Noted Time PHQ-9 Depression Total Score: 4 01/13/20 2:57 PM EDT documented as of this encounter Care Teams Assistant Store Director Relationship Specialty Start Date End Date Ernie Noriega MD [address] [place] [address] PCP - General Internal Medicine 08/25/19 [place] [facility] 03/31/25 05/25/25 [facility] 05/25/25 06/13/25 [facility] 05/25/25 06/19/25 [place] [facility] 06/07/25 documented as of this encounter
--- OUTSIDE RECORDS SUMMARY | 2025-08-04 15:51 | XMS_ITS | Encounter Summary ---
Author Organization [employer] Address [address] [facility] [address] [place] [address] Care Team Providers Care Senior Brand Manager Name Role Phone Ernie Noriega MD Primary Care Provide r Reason for Visit * Reason Comments Med Refill Encounter Details Date Type Department Care Team ([facility] st Contact Info) Description 08/28/2023 Refill [facility] [address] [place] [address] Perlita Woody MD [address] [place] [address] Primary hypertension Social History Tobacco Use Types [...] Description 09/01/2025 9:00 AM EST Clinical Support [address] [phone] 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, MARQUISE [address] [place] [address] 09/26/2025 3:00 PM EST Office Visit [facility] MEDICINE [address] [place] [phone] Ernie Noriega MD [address] [place] [phone] documented as of this encounter Visit Diagnoses Diagnosis Primary hypertension Unspecified essential hypertension documented in this encounter Additional Health Concerns Assessment Noted Time PHQ-9 Depression Total Score: 0 12/02/19 23 2:38 PM EST documented as of this encounter Care Teams Senior Brand Manager Relationship Specialty Start Date End Date Ernie Noriega MD [address] [place] [phone] PCP - General Internal Medicine 08/25/19 [facility] 03/31/25 05/25/25 [facility] 05/25/25 06/13/25 [facility] 05/25/25 06/19/25 [facility] 06/07/25 documented as of this encounter
--- OUTSIDE RECORDS SUMMARY | 2025-08-04 15:51 | XMS_ITS | Encounter Summary ---
Author Organization [email or web address] Address [address] [place] [address] Care Team Providers Care Entry Level Programmer Name Role Phone Ernie Noriega MD Primary Care Provide r Reason for Visit * Reason Comments Med Refill Encounter Details Date Type Department Care Team ([facility] st Contact Info) Description 11/20/2023 Refill [facility] [address] [place] [address] Ernie Noriega MD [address] [place], [place] [phone] Pain Social History Tobacco Use Types Packs/Day [...] Description 09/01/2025 9:00 AM EST Clinical Support [address] [address] 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 RN [address] [place] [address] 09/26/2025 3:00 PM EST Office Visit [facility] MEDICINE [address] [place] [phone] Ernie Noriega MD [address] [place] [phone] documented as of this encounter Visit Diagnoses Diagnosis Pain Generalized pain documented in this encounter Additional Health Concerns Assessment Noted Time PHQ-9 Depression Total Score: 0 12/02/19 23 2:38 PM EST documented as of this encounter Care Teams Entry Level Programmer Relationship Specialty Start Date End Date Ernie Noriega MD [address] [place] [phone] PCP - General Internal Medicine 08/25/19 [facility] 03/31/25 05/25/25 [facility] 05/25/25 06/13/25 [facility] 05/25/25 06/19/25 [facility] 06/07/25 documented as of this encounter
--- OUTSIDE RECORDS SUMMARY | 2025-08-04 15:51 | XMS_ITS | Clinical Summary ---
Author Organization [facility] Address [address] [place] [address] Care Team Providers Care Granite Chip Terrazzo Finisher Name Role Phone Ernie Merritt Primary Care [...] propionate (FLONASE) 50 mcg/actuation nasal spray SMARTSI Garretson(s) Both Nares Twice Daily 12/29/19 23 Active [...] skin every 8 hours. 90 mL 05/22/20 25 Active miconazole 2% powder Apply topically to [...] mouth nightly. 10 tablet 05/22/[address] (CYMBALTA) 30 mg capsule Take 1 capsule (30 mg total) by mouth once a day. 30 capsule 2 07/05/20 25 Active methocarbamoL (ROBAXIN) 500 mg tablet Take 1 tablet (500 mg total) by mouth 4 times a day as needed for muscle spasms. 120 tablet 1 05/30/20 25 025 Active Problems Problem Noted Date Diagnosed Date [...] Encounters Date Type Department Care Team Description 08/01/2025 myChart Message [facility] [address] [place] [address] [phone] Mychart, Generic Provider FMLA forms requested 08/01/2025 Telephone [facility] [address] [place] [address] [phone] Fang Altamirano NP 07/25/2025 Telephone [facility] [address] [place] [address] [phone] Christopher Peres MD 07/13/2025 Telephone [facility] [address] [place] [address] [phone] Heidi Knott PA 07/11/2025 Orders Only [facility] [address] [place] [address] [phone] Heidi Knott PA Other idiopathic scoliosis, thoracolumbar region (Primary Dx); Chronic bilateral low back pain with bilateral sciatica; S/P fusion of thoracic spine 07/10/2025 Telephone [facility] [address] [place] [address] [phone] Christopher Peres MD 07/07/2025 Orders Only [facility] [address] [place] [address] [phone] Fang Altamirano NP 07/07/2025 Telephone [facility] [address] [place] [address] [phone] Christopher Peres MD 07/05/2025 12:00 PM EDT Follow-Up [facility] [address] [place] [address] [phone] Christopher Peres MD S/P fusion of thoracic spine (Primary Dx) 06/13/2025 Telephone [facility] [address] [place] [address] [phone] Christopher Peres MD 05/31/2025 Orders Only [facility] [address] [place] [address] [phone] Heidi Knott PA S/P fusion of thoracic spine (Primary Dx) 05/31/2025 Telephone [facility] [address] [phone] Christopher Peres MD 05/30/2025 2:30 PM EDT Follow-Up [facility] [address] [place] [address] [phone] Fang Altamirano NP S/P fusion of thoracic spine (Primary Dx) 05/29/2025 Telephone [facility] [address] [address] Fang Altamirano NP 05/12/2025 9:47 AM EDT Anesthesia Event [facility] [address] [place] [phone] Mu Vilchis MD He, Yifan, MD 05/12/2025 7:05 AM EDT - 05/12/2025 9:35 PM EDT Surgery [facility] [address] [place] [phone] Christopher Peers MD FUSION, POSTERIOR, FOR SPINAL DEFORMITY, POSSIBLE CASTING, 7 TO 12 VERTEBRAL SEGMENTS [94990 (CPT )] 05/12/2025 5:58 AM EDT - 05/22/2025 2:42 PM EDT Hospital Encounter [facility] [address] [place] [address] Christopher Peres MD Discharge Disposition: Care Home Facility (03) from Last 3 Months Family History Medical [...] Info) Description 08/16/2025 1:15 PM EST Follow-Up [facility] [address] [place] [address] Christopher Peres MD [address] [place] [address] Health Maintenance Due Date Last Done Comments [...] this topic Medical Devices Implanted Type Area Mail Opener Device Identifier Shelf Expiration Date Model / Serial / Lot Ruas Head And Ss For 5.5/6.0 Russell 2pk Implanted:Qty: 2 on 05/12/2025 by Christopher Peres MD at [facility] Implant N/A: Spine Lumbar Medtronic 04/28/2029 [id number] / / [id number] Ruas Head And Ss For 5.5/6.0 Russell Implanted:Qty: 2 on 05/12/2025 by Christopher Peres MD at [facility] Implant N/A: Spine Lumbar Medtronic 04/28/2029 [id number] / / [id number] Kit Bone Graft Large Infuse - [id number] Implanted:Qty: 1 on 05/12/2025 by Christopher Peres MD at [facility] Implant N/A: Spine Lumbar Medtronic 04/11/2026 [id number] / / [id number] Pyramesh Round 13mm X 70mm - [id number] Implanted:Qty: 1 on 05/12/2025 by Christopher Peres MD at [facility] Implant N/A: Spine Lumbar Medtronic [id number] / / 5.5-6.0 Biased Mas & Setscrew Implanted:Qty: 1 on 05/12/2025 by Christopher Peres MD at [facility] Implant N/A: Spine Lumbar Medtronic 07/14/2032 [id number] / / [id number] Connector Spinal Tl 5/6-5/6 Cd Horizon - [id number] Implanted:Qty: 3 on 05/12/2025 by Christopher Peres MD at [facility] Implant N/A: Spine Lumbar Medtronic 05/29/2031 [id number] / / [id number] Connector Spinal Tl 5/6-5/6 Cd Horizon - [id number] Implanted:Qty: 1 on 05/12/2025 by Christopher Peres MD at [facility] Implant N/A: Spine Lumbar Medtronic 11/21/2032 [id number] / / [id number] Screw Spinal Shank 6.0qfa25de Ats Cd Horizon Modulex - [id number] Implanted:Qty: 4 on 05/12/2025 by Christopher Peres MD at [facility] Implant N/A: Spine Lumbar Medtronic [id number] / / Screw Spinal Shank Thread Ats 6.1yek06iu Cd Horizon Modulex - [id number] Implanted:Qty: 4 on 05/12/2025 by Christopher Peres MD at [facility] Implant N/A: Spine Lumbar Medtronic [id number] / / Screw Spinal Shank Thread Ats 7.1ufu42rj Cd Horizon Modulex - [id number] Implanted:Qty: 1 on 05/12/2025 by Christopher Peres MD at [facility] Implant N/A: Spine Lumbar Medtronic [id number] / / Russell Straight Long 5.5ymx518gg Solera - [id number] Implanted:Qty: 2 on 05/12/2025 by Christopher Peres MD at [facility] Implant N/A: Spine Lumbar Medtronic [id number] / / Patch Fibrin Sealant Pooled Human Plasma And Equine Collagen 4.8cmx4.8cm Tachosil - [id number] Implanted:Qty: 1 on 05/12/2025 by Christopher Peres MD at [facility] Implant N/A: Spine Lumbar [facility] 08/10/2027 [id number] / / [id number] Screw Spinal Shank Thread Ats 7.5mm X 45mm Cd Horizon Modulex - [id number] Implanted:Qty: 3 on 05/12/2025 by Christopher Peres MD at [facility] Screw N/A: Spine Lumbar Medtronic [id number] / / Screw Spinal Shank Thread Ats 7.0vif62yr Cd Horizon Modulex - [id number] Implanted:Qty: 4 on 05/12/2025 by Christopher Peres MD at [facility] Screw N/A: Spine Lumbar Medtronic [id number] / / Modulex 10.5 X 100 Screw Implanted:Qty: 2 on 05/12/2025 by Christopher Peres MD at [facility] Screw N/A: Spine Lumbar Medtronic [id number] / / Screw Set Breakoff 5.5mm Titanium Cd Horizon - [id number] Implanted:Qty: 8 on 05/12/2025 by Christopher Peres MD at [facility] Screw N/A: Spine Lumbar Medtronic [id number] / / Graft Bone Demineralized Bone Matrix Fiber Inject 9cc Melissa - [id number] - [id number] Implanted:Qty: 1 on 05/12/2025 by Christopher Peres MD at [facility] Tissue N/A: Spine Lumbar Medtronic 05/09/2026 [id number] / [id number] / Rmas Head And Ss For 5.5/6.0 Russell Implanted:Qty: 4 on 05/12/2025 by Christopher Peres MD at [facility] N/A: Spine Lumbar Medtronic 03/04/2029 [id number] / / [id number] Procedures * Due to [place] state law, this organization might not be sharing negative HIV tests. Procedure Name Priority Date/Time Associated Diagnosis Comments XR SCOLIOSIS 2-3 VIEWS Routine 07/05/2025 11:44 AM EDT S/P fusion of thoracic spine XR SCOLIOSIS 2-3 VIEWS Routine 05/30/2025 4:28 [...] PREPARE RBC STAT 05/12/2025 10:13 AM EDT CO OSTEOTOMY SPINE POSTERIOR 3 COLUMN LUMBAR 05/12/2025 9:22 AM EDT Other idiopathic scoliosis, thoracolumbar region Special Needs Xiao Souza Cheryl, medtronic, neuromonitoring, stealth, O arm, misonixReps aware 05/01Checked by Miesha Bae CO LAMINEC/FACETECT/FORA MIN,THORACIC 1 SEG 05/12/2025 9:22 AM EDT Other idiopathic scoliosis, thoracolumbar region Special Needs Xiao Souza Cheryl, medtronic, neuromonitoring, stealth, O arm, misonixReps aware 05/01Checked by Miesha Bae CO LAMINEC/FACETECT/FORA MIN,EACH ADDNL 05/12/2025 9:22 AM EDT Other idiopathic scoliosis, thoracolumbar region Special Needs Xiao Souza Cheryl, medtronic, neuromonitoring, stealth, O arm, misonixReps aware 05/01Checked by Miesha Bae CO LAMINEC/FACETECT/FORA MIN,LUMBAR 1 SEG 05/12/2025 9:22 AM EDT Other idiopathic scoliosis, thoracolumbar region Special Needs Xiao Souza, Tamera, medtronic, neuromonitoring, stealth, O arm, misonixReps aware 05/01Checked by Miesha Bae CO POSTERIOR SEGMENTAL INSTRUMENTATION 7-12 VRT SEG 05/12/2025 9:22 AM EDT Other idiopathic scoliosis, thoracolumbar region Special Needs Xiao Souza Cheryl, medtronic, neuromonitoring, stealth, O arm, misonixReps aware 05/01Checked by Miesha Bae CO ARTHRODESIS POSTERIOR SPINAL DEFORMITY UP 7-12 SEGMENTS 05/12/2025 9:22 AM EDT Other idiopathic scoliosis, thoracolumbar region Special Needs Xiao Souza, Tamera, medtronic, neuromonitoring, stealth, O arm, misonixReps aware 05/01Checked by Miesha Bae AN ARTERIAL LINE DUMMY PERFORMABLE Routine 05/12/2025 7:30 AM EDT CO INSERT CATH,ART,PERCUT,SHORT TERM Routine 05/12/2025 7:30 AM EDT from Last 3 Months Results * Due to [place] state law, this organization might not be sharing negative HIV tests. * X-Ray Scoliosis 2 Views (07/05/2025 11:44 AM EDT) Only the most recent of3 resultswithin the time period is included. Anatomical Region Laterality Modality Spine Computed Radiogr aphy 07/09/2025 6:00 PM EDT Impressions 07/09/2025 7:57 PM EDT FINDINGS/IMPRESSION: No significant scoliosis of the thoracolumbar spine. Thoracic kyphosis measuring 27 degrees and lumbar lordosis measuring 42 degrees. Changes of prior posterior instrumented fusion and decompression spanning from T11 through S1 and interbody fusions at L4-L5, L5-S1 and S1-S2, unchanged multilevel degenerative disc and facet disease in the thoracolumbar spine. Changes of prior disc replacement at C4-C5 and C5-C6 levels. Sacrum partly obscured. Large kpcxs-ni-grmr imaging technique limits assessment of fine osseous and soft tissue detail. Images are provided for biometric measurement. If this radiology report contains a blank impression section, it is an incomplete radiology report. Please contact the interpreting radiologist or applicable radiology division as soon as possible to obtain the completed interpretation. Workstation ID: [id number] Narrative 07/09/2025 7:57 PM EDT COMPARISON: 05/30/2025 Resulting Agency Comment [id number] Procedure Note Parth Villareal MD - 07/09/2025 COMPARISON: 05/30/2025 IMPRESSION: FINDINGS/IMPRESSION: No significant scoliosis of the thoracolumbar spine. Thoracic kyphosismeasuring 27 degrees and lumbar lordosis measuring 42 degrees. Changes ofprior posterior instrumented fusion and decompression spanning from A84oemntxy S1 and interbody fusions at L4-L5, L5-S1 and S1-S2, unchangedmultilevel degenerative disc and facet disease in the thoracolumbar spine.Changes of prior disc replacement at C4-C5 and C5-C6 levels. Sacrumpartly obscured. Large tvckn-zo-tbip imaging technique limits assessment of fine osseousand soft tissue detail. Images are provided for biometric measurement. If this radiology report contains a blank impression section, it is anincomplete radiology report. Please contact the interpreting radiologistor applicable radiology division as soon as possible to obtain thecompleted interpretation. Workstation ID: [id number] us Fang Altamirano WIND FARM DESIGNER IMG XR PROCEDURES Final R esult * (ABNORMAL) CBC (05/21/2025 8:10 AM EDT) Only the most recent of9 resultswithin the time period is included. WBC 7.5 3.8 - 10.8 10*3/uL 05/21/2025 8:36 AM EDT [facility] RBC 2.87(L) 3.80 - 5.10 10*6/uL 05/21/2025 8:36 AM EDT [facility] Hemoglobin 8.2(L) 11.7 - 15.5 g/dL 05/21/2025 8:36 AM EDT [employer] [facility] Hematocrit 25.4(L) 35.0 - 45.0 % 05/21/2025 8:36 AM EDT [facility] MCV 88.5 80.0 - 100.0 fL 05/21/2025 8:36 AM EDT [facility] MCH 28.6 27.0 - 33.0 pg 05/21/2025 8:36 AM EDT [employer] [facility] MCHC 32.3 32.0 - 36.0 g/dL 05/21/2025 8:36 AM EDT [employer] [facility] RDW 14.9 11.0 - 15.0 % 05/21/2025 8:36 AM EDT [employer] [facility] Platelets 527(H) 140 - 400 10*3/uL 05/21/2025 8:36 AM EDT [employer] [facility] MPV 9.3 7.5 - 12.5 fL 05/21/2025 8:36 AM EDT [employer] [facility] Blood Structure of peripheral vein / Unknown Venipuncture / Unknown 05/21/2025 8:10 AM EDT 05/21/2025 8:28 AM EDT us Leida WILDER LAB BLOOD ORDERABLES Final Resu lt [facility] [employer] [facility] [address] [place] [address], [place] * Magnesium (05/21/2025 8:10 AM EDT) Only the most recent of8 resultswithin the time period is included. MG 2.1 1.6 - 2.4 mg/dL 05/21/2025 8:59 AM EDT [facility] Blood Structure of peripheral vein / Unknown Venipuncture / Unknown 05/21/2025 8:10 AM EDT 05/21/2025 8:27 AM EDT us Leida WILDER LAB BLOOD ORDERABLES Final Resu lt [facility] [address] [place] [address], * (ABNORMAL) Basic metabolic panel (05/21/2025 8:10 AM EDT) Only the most recent of10 resultswithin the time period is included. NA 139 135 - 145 mmol/L 05/21/2025 8:59 AM EDT [facility] K 3.6 3.5 - 5.3 mmol/L 05/21/2025 8:59 AM EDT [facility] Cl 101 98 - 107 mmol/L 05/21/2025 8:59 AM EDT [facility] CO2 26 22 - 32 mmol/L 05/21/2025 8:59 AM EDT [facility] BUN 14 7 - 23 mg/dL 05/21/2025 8:59 AM EDT [facility] Creatinine 0.47(L) 0.50 - 1.20 mg/dL 05/21/2025 8:59 AM EDT [facility] Glucose 119(H) 65 - 99 mg/dL 05/21/2025 8:59 AM EDT [facility] Calcium 8.7 8.6 - 10.5 mg/dL 05/21/2025 8:59 AM EDT [facility] Anion Gap 12 5 - 15 05/21/2025 8:59 AM EDT [facility] eGFR >90 >=60 mL/min/1 .73m2 05/21/2025 8:59 AM EDT [facility] Comment:The estimated glomer ular filtration rate (eGFR) is calculated using a new formula developed by the NKF-ASN task force to eliminate race-based correction factors. The new formula uses serum/plasma creatinine, age, and gender to determine eGFR. A value below 60mls/min might indicate kidney disease and will be flagged. For additional information, see Lyn et al, Am J Kidney Dis. 2021;79(2):268- 288, A Unifying Approach for GFR estimation: Recommendations of the NKF-ASN Task Force on Reassessing the Inclusion of Race in Diagnosing Kidney Disease . Blood Structure of peripheral vein / Unknown Venipuncture / Unknown 05/21/2025 8:10 AM EDT 05/21/2025 8:27 AM EDT [facility] LAB BLOOD ORDERABLES Final Resu lt Performing Organization Address City/[facility]/ZIP Co de Phone Number [facility] [address] [place] [id number], * Phosphorus (05/18/2025 6:13 AM EDT) Only the most recent of5 resultswithin the time period is included. Phosphorus 4.2 2.5 - 4.5 mg/dL 05/18/2025 7:05 AM EDT [facility] Blood Structure of peripheral vein / Unknown Venipuncture / Unknown 05/18/2025 6:13 AM EDT 05/18/2025 6:36 AM EDT [facility] LAB BLOOD ORDERABLES Final Resu lt [facility] [address] [place] [address] * X-Ray Thoracolumbar Spine 2 Views (05/14/2025 4:40 PM EDT) Anatomical Region Laterality Modality Spine, T-spine, L-spine Computed Radiography 05/14/2025 4:42 PM EDT Impressions 05/14/2025 4:50 PM EDT FINDINGS/IMPRESSION: There is transitional anatomy. For purposes of this report to be consistent the prior CT from 03/04/2025, there is lumbarization of S1 first nonrib-bearing lumbar-type vertebral bodies denoted L1. Large vatbw-gi-ebbz imaging precludes fine osseous and soft tissue [...] to obtain the completed interpretation. Workstation ID: [id number] Narrative 05/14/2025 4:50 PM EDT COMPARISON: Scoliosis series from 06/14/2025. Resulting Agency Comment [id number] Procedure Note Stone Reid MD - 05/14/2025 COMPARISON: Scoliosis series from 06/14/2025. IMPRESSION: FINDINGS/IMPRESSION: There is transitional anatomy. For purposes of this report to samistent the prior CT from 03/04/2025, there is lumbarization of J4otygy nonrib-bearing lumbar-type vertebral bodies denoted L1. Large ggroi-kc-vuup imaging precludes fine osseous and soft tissueevaluation. Images were obtained for biometric analysis. Status post posterior decompression and posterior instrumented spinalfusion of T11 to the sacroiliac joints. Prior interbody fusions of L4-L5,L5-S1, and S1-S2. There is a new surgical device projecting over the H5anrakiegd body. Expected immediate postsurgical changes within theposterior [...] possible to obtain thecompleted interpretation. Workstation ID: [id number] us Christopher Peres MD IMG XR PROCEDURES Final Res ult * (ABNORMAL) CBC Auto Differential (05/13/2025 4:50 AM EDT) WBC 8.6 3.8 - 10.8 10*3/uL 05/13/2025 5:19 AM EDT [facility] RBC 3.53(L) 3.80 - 5.10 10*6/uL 05/13/2025 5:19 AM EDT [facility] Hemoglobin 9.9(L) 11.7 - 15.5 g/dL 05/13/2025 5:19 AM EDT [facility] Hematocrit 30.3(L) 35.0 - 45.0 % 05/13/2025 5:19 AM EDT [facility] MCV 85.8 80.0 - 100.0 fL 05/13/2025 5:19 AM EDT [facility] MCH 28.0 27.0 - 33.0 pg 05/13/2025 5:19 AM EDT [facility] MCHC 32.7 32.0 - 36.0 g/dL 05/13/2025 5:19 AM EDT [facility] RDW 14.7 11.0 - 15.0 % 05/13/2025 5:19 AM EDT [facility] Platelets 162 140 - 400 10*3/uL 05/13/2025 5:19 AM EDT [facility] MPV 9.8 7.5 - 12.5 fL 05/13/2025 5:19 AM EDT [facility] Neutrophil % 88.7 % 05/13/2025 5:19 AM EDT [facility] Immature Grans % 0.5 0.0 - 0.9 % 05/13/2025 5:19 AM EDT [facility] Lymphocyte % 6.6 % 05/13/2025 5:19 AM EDT [facility] Monocyte % 3.9 % 05/13/2025 5:19 AM EDT [facility] Eosinophil % 0.2 % 05/13/2025 5:19 AM EDT [facility] Basophil % 0.1 % 05/13/2025 5:19 AM EDT [facility] Neutrophil # 7.65 1.50 - 7.80 10*3/uL 05/13/2025 5:19 AM EDT [facility] Immature Grans # 0.04(H) <=0.03 10*3/uL 05/13/2025 5:19 AM EDT [facility] Lymphocyte # 0.60(L) 0.85 - 3.90 10*3/uL 05/13/2025 5:19 AM EDT [facility] Monocyte # 0.30 0.20 - 0.95 10*3/uL 05/13/2025 5:19 AM EDT [facility] Eosinophil # <0.03 0.02 - 0.50 10*3/uL 05/13/2025 5:19 AM EDT [facility] [employer] [facility] Basophil # <0.03 0.00 - 0.20 10*3/uL 05/13/2025 5:19 AM EDT [facility] nRBC % 0.0 /100 WBCs 05/13/2025 5:19 AM EDT [facility] PATH[facility] LAB[facility] nRBC # <0.01 <0.01 10*3/uL 05/13/2025 5:19 AM EDT [facility] [employer] [facility] CL[facility] PATHOLOG[facility] LABORATORY Blood Structure of peripheral vein / Unknown Venipuncture / Unknown 05/13/2025 4:50 AM EDT 05/13/2025 5:09 AM EDT us Christopher Peres MD LAB BLOOD ORDERABLES Final Result [facility] PATHOLOG[facility] LAB[facility]ATORY [address] [place] [address], * (ABNORMAL) POCT Glucose, interfaced (05/12/2025 8:02 PM EDT) [facility] Glucose, POCT 128(H) 70 - 99 mg/dL 05/12/2025 8:04 PM EDT [facility] Comment: The mobile game engineer has not determined the efficacy of this test in Critically ill patients. [facility] defines Critically ill patients for the purpose [...] 8:02 PM EDT 05/12/2025 8:04 PM EDT Christopher Perse MD LAB POCT ORDERABLES - DEVIC E Final Result Performing Organization Address [facility] Co de Phone Number [facility] [address] [place] [address], * Smear Review (05/12/2025 8:01 PM EDT) Platelet Estimate Adequate Adequate 05/12/2025 9:01 PM EDT [employer] [facility] RBC Morphology Normal Normal, No clinically significant RBC morphology present (ICSH guidelines, 2015). 05/12/2025 9:01 PM EDT [facility] Blood Structure of peripheral vein / Unknown Venipuncture / Unknown 05/12/2025 8:01 PM EDT 05/12/2025 8:16 PM EDT Christopher Peres MD LAB BLOOD ORDERABLES Final Result Performing Organization Address [facility] Co de Phone Number [facility] [employer] [facility] [address] [place] [address], * Clinician: Transfuse Plasma (05/12/2025 6:32 PM EDT) Only the most recent of2 resultswithin the time period is included. Thalia Ford MD BLOOD TRANSFUSION ORDERABLES F inal Result * FL C-arm with Images (Adult MSK) NONREPORTABLE (05/12/2025 6:27 PM EDT) Narrative IMAGING - 05/12/2025 6:27 PM EDT This procedure does not contain a result. Please see the surgeon's note for official report. us Christopher Peres MD IMG FLUOROSCOPY PROCEDURES Final Result IMAGING * (ABNORMAL) POCT I-STAT Chemistry Panel W/ABG, interfaced (05/12/2025 6:27 PM EDT) Only the most recent of6 resultswithin the time period is included. Sample Type, POCT Arterial 05/12/2025 10:00 PM EDT [facility] Sodium, POCT 144 135 - 145 mmol/L 05/12/2025 10:00 PM EDT [facility] Potassium, POCT 3.5 3.5 - 5.3 mmol/L 05/12/2025 10:00 PM EDT [facility] Glucose, POCT 126(H) 70 - 99 mg/dL 05/12/2025 10:00 PM EDT [facility] iCA, POCT 4.5(L) 4.6 - 5.3 mg/dL 05/12/2025 10:00 PM EDT [facility] HCT, POCT 28(L) 37 - 42 % 05/12/2025 10:00 PM EDT [facility] pH, POCT 7.38 7.35 - 7.45 05/12/2025 10:00 PM EDT [facility] pCO2, POCT 35.4 35 - 45 mmHg 05/12/2025 10:00 PM EDT [facility], [facility] pO2, POCT 213(H) 80 - 105 mmHg 05/12/2025 10:00 PM T [facility], [facility] Base Excess, POCT -5(L) 0 - 3 mmol/L 05/12/2025 10:00 PM EDT [facility] HCO3, POCT 20.7(L) 21 - 28 mmol/L 05/12/2025 10:00 PM EDT [facility] TCO2, POCT 22(L) 23 - 27 mmol/L 05/12/2025 10:00 PM EDT [facility] Saturated O2, POCT 100(H) 95 - 98 % 05/12/2025 10:00 PM EDT [facility] FIO2, POCT 50 % 05/12/2025 10:00 PM EDT [facility] Tidal Volume, POCT 450 ml 05/12/2025 10:00 PM EDT [facility] Mason's Test, POCT N/A 05/12/2025 10:00 PM EDT [facility] Blood 05/12/2025 6:27 PM EDT 05/12/2025 10:00 PM EDT Narrative [facility] - 05/12/2025 10:00 PM EDT i-STAT analyzer cannot determine presence of hemolysis in sample us Christopher Peres MD LAB POCT ORDERABLES - DEVIC E Final Result [facility], [facility] [address] [place] [address], [place] * XR L-Spine 1 vw (05/12/2025 [...] to obtain the completed interpretation. Workstation ID: [id number] Narrative 05/12/2025 6:57 PM EDT COMPARISON: 03/14/2025 Resulting Agency Comment [id number] Procedure Note Parth Villareal MD - 05/12/2025 [...] possible to obtain thecompleted interpretation. Workstation ID: [id number] us Christopher Peres MD IMG XR PROCEDURES Final Res ult * Blood Bank: Prepare Plasma Transfusion Indications: Intraoperative Hemostatic Defect: 2 Units (05/12/2025 5:05 PM EDT) Only the most recent of2 resultswithin the time period is included. Product Code V5207X34 [facility] Unit Number [id number] [facility] Unit ABO O [facility] Unit RH POS [facility] Dispense Status Presumed Transfuse [facility] Blood Expiration Date [facility] Blood Type Barcode 5100 [facility] Dispensed Volume 213 ML [facility] Product Code V6197C59 [facility] Unit Number [id number] [facility] Unit ABO O [facility] B[facility] Unit RH POS [facility] Dispense Status /Released [facility] Blood Expiration Date [facility] Blood Type Barcode 5100 [facility] Dispensed Volume 222 ML [facility] 05/12/2025 5:05 PM EDT Thalia Ford MD BLOOD BANK PRODUCT ORDERABLES Final Result [facility] [address] [place] [address], [place] [phone] * POCT TEG6 GLOBAL HEMOSTASIS W/LYSIS, interfaced (05/12/2025 5:01 PM EDT) Citrated Kaolin Reaction Time, POCT 6.2 4.6 - 9.1 min 05/12/2025 6:02 PM EDT [facility] Citrated Kaolin Lysis, POCT 0.0 0.0 - 2.6 % 05/12/2025 6:02 PM EDT [facility] Citrated RapidTEG Max Amplitude, POCT 61.2 52.0 - 70.0 mm 05/12/2025 6:02 PM EDT [facility] Citrated Functional Fibrinogen Max Amplitude, POCT 17.9 15.0 - 32.0 mm 05/12/2025 6:02 PM EDT [facility] Blood 05/12/2025 5:01 PM EDT 05/12/2025 6:02 PM EDT us Christopher Peres MD LAB POCT ORDERABLES - DEVIC E Final Result [facility] [address] [place] [address], * Blood Bank: Prepare Red Blood Cells Transfusion indications: Active blood loss; Irradiated?: No; Special requirements: Leukoreduced: 2 Units (05/12/2025 4:49 PM EDT) Only the most recent of3 resultswithin the time period is included. Product Code L0213O82 [facility] Unit Number [id number] [facility] INF[facility] Unit ABO O [facility] INF[facility] Unit RH POS [facility]LOOD B[facility] INFCE Crossmatch Compatible [facility] INFCE Dispense Status /Released [facility] Blood Expiration Date [id number] [facility] Blood Type Barcode 5100 [facility] Dispensed Volume 330 ML [facility] Product Code Q9316N84 [facility] Unit Number [id number] [facility] BLOOD BANK INFCE Unit ABO O [facility] BLOOD BANK INFCE Unit RH POS UU BLOOD BANK INFCE Crossmatch Compatible [facility]U BLOOD BANK INFCE Dispense Status /Released [facility] IN[facility] Blood Expiration Date [id number] [facility] Blood Type Barcode 5100 [facility] BLO[facility] INFCE Dispensed Volume 300 ML [facility]LOOD B[facility] INFCE Other 05/12/2025 4:49 PM EDT 05/01/2025 2:13 PM EDT Thalai Ford MD BLOOD BANK PRODUCT ORDERABLES Final Result Performing Organization Address [facility]/ZIP Co de Phone Number [facility] [address] [place] [id number], [place] [phone] * Clinician: Transfuse Red Blood Cells (05/12/2025 4:45 PM EDT) Only the most recent of4 resultswithin the time period is included. Thalia Ford MD BLOOD TRANSFUSION ORDERABLES F inal Result * (ABNORMAL) POCT Hemoglobin, interfaced (05/12/2025 4:21 PM EDT) Only the most recent of5 resultswithin the time period is included. [facility] Hemoglobin, POCT 9.7(L) 12.0 - 16.0 g/dL 05/13/2025 6:19 AM EDT [facility], [facility] Blood 05/12/2025 4:21 PM EDT 05/13/2025 6:19 AM EDT Christopher Peres MD LAB POCT ORDERABLES - DEVIC E Final Result [facility] [address] [place] [address], [place] * CO INSERT CATH,ART,PERCUT,SHORTTERM, AN ARTERIAL LINE DUMMY PERFORMABLE [...] performed Procedure Detail: Ultrasound #1 Probe: Linear [id number] Catheter Size: 20 G Catheter Length: 4.45 cm Catheter Type: Arrow Laterality: Right Site: radial artery. The site was prepped with Chloraprep. The skin prep agent completely dried prior to procedure. Line Secured By: CHG dressing Number of attempts at approach: 1 Events: patient tolerated procedure well with no complications Mu Vilchis MD ANESTHESIA ORDERABLES Final Re sult from Last 3 Months Insurance [facility] Advance Directives Documents on File Type Date Recorded Patient Wallpaper Printer Expl anation Health Care Proxy 05/12/2025 6:38 AM * Full Code (Latest Code Status on File) Date Activated Date Inactivated Comments 05/12/2025 7:40 PM 05/22/2025 4:48 PM Care Teams Granite Chip Terrazzo Finisher Relationship Specialty Start Date End Date Ernie Merritt [address] [place] [address] PCP - General Internal Medicine 11/29/24
--- OUTSIDE RECORDS SUMMARY | 2025-08-04 15:51 | XMS_ITS | Encounter Summary ---
Author Organization [facility] [facility] Address [address] [place] [address] 7t [place] [address] Care Team Providers Care Garment Worker Name Role Phone Ernie Noriega MD Primary Care Provide r Encounter Details Date Type Department Care Team (Latest Contact Info) Description 06/19/2022 Abstract [facility] CONVERSIONS Dental, Provider, DDS Social History [...] 09/01/2025 9:00 AM EST Clinical Support [facility] MEDICINE [address] [place] [address] 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 RN [address] [place] [address] 09/26/2025 3:00 PM EST Office Visit [facility] MEDICINE [address] [place] [phone] Ernie Noriega MD [address] [place] [address] documented as of this encounter Visit Diagnoses Not on filedocumented in this encounter Care Teams Garment Worker Relationship Specialty Start Date End Date Ernie Nroiega MD [address] [place] [address] PCP - General Internal Medicine 08/25/19 [facility] 03/31/25 05/25/25 [facility] 05/25/25 06/13/25 [facility] 05/25/25 06/19/25 [facility] 06/07/25 documented as of this encounter
--- OUTSIDE RECORDS SUMMARY | 2025-08-04 15:51 | XMS_ITS | Clinical Summary ---
Author Organization [facility] Address [address] [place] [address] Phone Care Team Providers Care Block Engraver Name Role Phone Ernie Merritt MD Primary [...] Department Care Team Description 05/23/2025 Lab Requisition [facility] - Main Lab [address] [place] [address] Partha Hermosillo MD Fusion of [...] 1963 Cervical Cancer Screening: Pap Smear 1984 RSV Immunization Adult Patients (1 - Risk 50-74 years 1-dose series) 2013 HIV Screening 09/21/2022 Social Influencers of Health Screening 09/21/2022 Depression Screening 10/12/2024 COVID-19 Vaccine ( season) 2025 07/16/2022, 08/28/2021, [...] Complete blood count (05/23/2025 8:40 AM EDT) [facility] WBC 8.9 4.8 - 10.8 K/mcL LAB HEMETOLOGY METHOD 05/23/2025 10:45 AM [facility] RBC 3.10(L) 3.80 - 4.80 M/mcL LAB HEMETOLOGY METHOD 05/23/2025 10:45 AM [facility] Hemoglobin 8.4(L) 11.5 - 16.0 g/dL LAB HEMETOLOGY METHOD 05/23/2025 10:45 AM [facility] Hematocrit 27.6(L) 35.0 - 47.0 % LAB HEMETOLOGY METHOD 05/23/2025 10:45 AM [facility] MCV 90.2 79.0 - 98.0 FL LAB HEMETOLOGY METHOD 05/23/2025 10:45 AM [facility] MCH 27.5 27.0 - 32.0 pcg LAB HEMETOLOGY METHOD 05/23/2025 10:45 AM [facility] MCHC 30.4(L) 32.0 - 37.0 g/dL LAB HEMETOLOGY METHOD 05/23/2025 10:45 AM [facility] RDW 14.9 11.0 - 15.0 % LAB HEMETOLOGY METHOD 05/23/2025 10:45 AM [facility] Platelets 750(H) 130 - 400 K/mcL LAB HEMETOLOGY METHOD 05/23/2025 10:45 AM EDT [facility] MPV 9.4 7.0 - 11.0 FL LAB HEMETOLOGY METHOD 05/23/2025 10:45 AM EDT [facility] NRBC 0.0 <1.0 % LAB HEMETOLOGY METHOD 05/23/2025 10:45 AM EDT [facility] NRBC Absolute 0.00 <0.10 K/mcL LAB HEMETOLOGY METHOD 05/23/2025 10:45 AM EDT [facility] Blood Venous blood specimen / Unknown Venipuncture / Unknown 05/23/2025 8:40 AM EDT 05/23/2025 9:43 AM EDT Partha Hermosillo MD LAB BLOOD ORDERABLES Final Result Performing Organization Address City/[facility]/ZIP Co de Phone Number [facility] [address] [place] [address], * Thyroid stimulating hormone (05/23/2025 8:40 AM EDT) Pathologist [facility] TSH 1.49 0.40 - 4.00 mcIU/mL LAB CHEMISTRY METHOD 05/23/2025 1:07 PM EDT [facility] Blood Venous blood specimen / Unknown Venipuncture / Unknown 05/23/2025 8:40 AM EDT 05/23/2025 9:43 AM EDT Partha Hermosillo MD LAB BLOOD ORDERABLES Final Result [facility] [address] [place] [address], [place] [phone] * (ABNORMAL) Folate (05/23/2025 8:40 AM EDT) Folate >20.0(H) 2.8 - 17.0 ng/ml LAB CHEMISTRY METHOD 05/23/2025 12:33 PM EDT [facility] Blood Venous blood specimen / Unknown Venipuncture / Unknown 05/23/2025 8:40 AM EDT 05/23/2025 9:43 AM EDT us Partha Hermosillo MD LAB BLOOD ORDERABLES Final Result Performing Organization Address City/[facility]/ZIP Co de Phone Number [facility] [address] [place] [address], [place] [phone] * (ABNORMAL) Vitamin B12 (05/23/2025 8:40 AM EDT) [facility] Vitamin B-12 1,040(H) 250 - 900 pcg/mL LAB CHEMISTRY METHOD 05/23/2025 12:33 PM EDT [facility] Blood Venous blood specimen / Unknown Venipuncture / Unknown 05/23/2025 8:40 AM EDT 05/23/2025 9:43 AM EDT us Partha Hermosillo MD LAB BLOOD ORDERABLES Final Result Performing Organization Address City/[facility]/ZIP Co de Phone Number [facility] [address] [place] [address], [place] [phone] * (ABNORMAL) Basic metabolic panel (05/23/2025 8:40 AM EDT) [facility] Sodium 135 133 - 145 mmol/L LAB CHEMISTRY METHOD 05/23/2025 12:33 PM EDT [facility] Potassium 4.0 3.5 - 5.5 mmol/L LAB CHEMISTRY METHOD 05/23/2025 12:33 PM EDT [facility] Chloride 99 96 - 110 mmol/L LAB CHEMISTRY METHOD 05/23/2025 12:33 PM EDT [facility] CO2 27 21 - 32 mmol/L LAB CHEMISTRY METHOD 05/23/2025 12:33 PM EDT [facility] Anion Gap 9 3 - 11 LAB CHEMISTRY METHOD 05/23/2025 12:33 PM EDT [facility] Glucose 121(H) 70 - 100 mg/dL LAB CHEMISTRY METHOD 05/23/2025 12:33 PM EDT [facility] BUN 13 5 - 25 mg/dL LAB CHEMISTRY METHOD 05/23/2025 12:33 PM EDT [facility] Creatinine 0.47(L) 0.50 - 1.10 mg/dL LAB CHEMISTRY METHOD 05/23/2025 12:33 PM EDT [facility] eGFR 108 >=60 mL/min/1. 73m2 LAB CHEMISTRY METHOD 05/23/2025 12:33 PM EDT [facility] Comment:Calculation based on the Chronic Kidney Disease Epidemiology Collaboration (CKD-EPI) equation refit without adjustment for race. BUN/Creatinine Ratio 27.7 LAB CHEMISTRY METHOD 05/23/2025 12:33 PM EDT [facility] Calcium 8.8 8.5 - 10.5 mg/dL LAB CHEMISTRY METHOD 05/23/2025 12:[facility] Blood Venous blood specimen / Unknown Venipuncture / Unknown 05/23/2025 8:40 AM EDT 05/23/2025 9:43 AM EDT Partha Hermosillo MD LAB BLOOD ORDERABLES Final Result [facility] [address] [place] [address], from Last 3 [place] [address] MEDICAID - [place] Advance Directives * Full [...] currently active code status orders. Care Teams Block Engraver Relationship Specialty Start Date End Date Ernie Merritt MD [address] [place] [address] [place] [address] PCP - General Internal Medicine 05/20/21
--- OUTSIDE RECORDS SUMMARY | 2025-08-04 15:51 | XMS_ITS | Encounter Summary ---
Author Organization [employer] Address [address] [facility] 7t [place] [address] Care Team Providers Care Scrap Cutter Name Role Phone Ernie Noriega MD Primary Care Provide r Reason for Visit * Reason Comments Med Refill Encounter Details Date Type Department Care Team ([facility] st Contact Info) Description 10/16/2023 Refill [facility] [address] [place] [address] Ernie Noriega MD [address] [place], [place] [phone] Pain Social History Tobacco Use Types Packs/Day [...] Description 09/01/2025 9:00 AM EST Clinical Support [address] [address] 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 RN [address] [place] [address] 09/26/2025 3:00 PM EST Office Visit [facility] MEDICINE [address] [place] [address] Ernie Noriega MD [address] [place] [address] documented as of this encounter Visit Diagnoses Diagnosis Pain Generalized pain documented in this encounter Additional Health Concerns Assessment Noted Time PHQ-9 Depression Total Score: 0 12/02/19 23 2:38 PM EST documented as of this encounter Care Teams Scrap Cutter Relationship Specialty Start Date End Date Ernie Noriega MD [address] [place] [address] PCP - General Internal Medicine 08/25/19 [facility] 03/31/25 05/25/25 [facility] 05/25/25 06/13/25 [facility] 05/25/25 06/19/25 [facility] 06/07/25 documented as of this encounter
--- OUTSIDE RECORDS SUMMARY | 2025-08-04 15:51 | XMS_ITS | Encounter Summary ---
Author Organization [employer] Address [address] [facility] 7t [place] [address] Care Team Providers Care Kitchen Worker Name Role Phone Ernie Noriega MD Primary Care Provide r Reason for Visit * Reason Onset Date Comments Med Refill 10/25/2023 Encounter Details Date Type Department Care Team (Late st Contact Info) Description 10/25/2023 Refill [facility] [address] [place] [address] Perlita Woody MD [address] [place] [address] Primary hypertension Social History Tobacco Use Types [...] Description 09/01/2025 9:00 AM EST Clinical Support [facility] MEDICINE [address] [place] [address] 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 RN [address] [place] [address] 09/26/2025 3:00 PM EST Office Visit [facility] MED[facility] [address] [place] [address] Ernie Noriega MD [address] [place] [address] documented as of this encounter Visit Diagnoses Diagnosis Primary hypertension Unspecified essential hypertension documented in this encounter Additional Health Concerns Assessment Noted Time PHQ-9 Depression Total Score: 0 12/02/19 23 2:38 PM EST documented as of this encounter Care Teams Kitchen Worker Relationship Specialty Start Date End Date Ernie Noriega MD [address] [place] [address] PCP - General Internal Medicine 08/25/19 [facility] 03/31/25 05/25/25 [facility] 05/25/25 06/13/25 [facility] 05/25/25 06/19/25 [facility] 06/07/25 documented as of this encounter
--- OUTSIDE RECORDS SUMMARY | 2025-08-04 15:51 | XMS_ITS | Encounter Summary ---
Author Organization [employer] Address [address] [facility] 7t [place] [address] Care Team Providers Care Career Guidance Technician Name Role Phone Ernie Noriega MD Primary Care Provide r Reason for Visit * Reason Onset Date Comments Med Refill 10/25/2023 Encounter Details Date Type Department Care Team ([facility] st Contact Info) Description 10/25/2023 Refill [facility] MEDICINE [address] [place] [address] Ernie Noriega MD [address] [place] [address] Social History Tobacco Use Types Packs/Day Years [...] Description 09/01/2025 9:00 AM EST Clinical Support [address] [address] 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, RN [address] [place] [address] 09/26/2025 3:00 PM EST Office Visit [facility] MEDICINE [address] [place] [address] Ernie Noriega MD [address] [place] [address] documented as of this encounter Visit Diagnoses Not on filedocumented in this encounter Additional Health Concerns Assessment Noted Time PHQ-9 Depression Total Score: 0 12/02/19 23 2:38 PM EST documented as of this encounter Care Teams Career Guidance Technician Relationship Specialty Start Date End Date Ernie Noriega MD [address] [place] [address] PCP - General Internal Medicine 08/25/19 [facility] 03/31/25 05/25/25 [facility] 05/25/25 06/13/25 [facility] 05/25/25 06/19/25 [facility] 06/07/25 documented as of this encounter
--- OUTSIDE RECORDS SUMMARY | 2025-08-04 15:52 | XMS_ITS | Encounter Summary ---
Author Organization [facility] Address [address] [place] [address] Care Team Providers Care Roller Billet Mill Name Role Phone Ernie Merritt Primary Care Provider + Encounter Details Date Type Department Care Team (Late st Contact Info) Description 04/11/2025 Indicative Software Message [facility] Operating Room [address] [place], [place] [phone] Optinuity, Generic Provider [address] [place], [place] [phone] Questionnaire Submission Social History Tobacco Use Types [...] Info) Description 08/16/2025 1:15 PM EST Follow-Up [facility] Building Neurosurgery Clinic [address] [place] [address] Christopher Peres MD [address] [place], [place] [phone] documented as of this encounter Visit Diagnoses Not on filedocumented in this encounter Care Teams Roller Billet Mill Relationship Specialty Start Date End Date Ernie Merritt [address] [place] [address] PCP - General Internal Medicine 11/29/24 documented as of this encounter
--- OUTSIDE RECORDS SUMMARY | 2025-08-04 15:52 | XMS_ITS | Encounter Summary ---
Author Organization [employer] [facility] Address [address] [place] [address] 7t [place] [address] Care Team Providers Care Can Labeler Name Role Phone Ernie Noriega MD Primary Care Provide r Encounter Details Date Type Department Care Team (Late st Contact Info) Description 10/03/2022 Orders Only [facility] MEDICINE [address] [place] [address] Suha Alexander RN Social History Tobacco Use [...] Description 09/01/2025 9:00 AM EST Clinical Support [address] [address] 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, MARQUISE [address] [place] [address] 09/26/2025 3:00 PM EST Office Visit [address] [address] Ernie Noriega MD [address] [place] [address] documented as of this encounter Visit Diagnoses Not on filedocumented in this encounter Care Teams Can Labeler Relationship Specialty Start Date End Date Ernie Noriega MD 230 [facility] [place] [address] PCP - General Internal Medicine 08/25/19 [facility] 03/31/25 05/25/25 [facility] 05/25/25 06/13/25 [facility] 05/25/25 06/19/25 [facility] 06/07/25 documented as of this encounter
--- OUTSIDE RECORDS SUMMARY | 2025-08-04 15:52 | XMS_ITS | Encounter Summary ---
Author Organization [employer] Address [address] [facility] [address] 7t [place] [address] Care Team Providers Care Vinyl Dipper Name Role Phone Ernie Noriega MD Primary Care Provide r Reason for Visit * Reason Onset Date Comments Med Refill Referral 12/10/2022 Patient walked i n requesting for referral to a neurologist. It is difficult for her to walk and do her [place] activities. Pt has had [facility] go to her house for therapy, but it has not made any improvements. Encounter Details Date Type Department Care Team (Late st Contact Info) Description 12/10/2022 Refill [facility] [address] [place], [place] [phone] Ernie Noriega MD [address] [place], [place] [phone] Pain Social History Tobacco Use Types Packs/Day [...] do her [place] activities. Pt has [facility] go to [facility] house for therapy, but it has not made any improvements. documented in this encounter Plan of Treatment Upcoming Encounters Date Type Department Care Team (Late st Contact Info) Description 09/01/2025 9:00 AM EST Clinical Support [address] [address] 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 RN [address] [place] [address] 09/26/2025 3:00 PM EST Office Visit [facility] [address] [place] [address] Ernie Noriega MD [address] [place] [address] documented as of this encounter Visit Diagnoses Diagnosis Pain Generalized pain documented in this encounter Additional Health Concerns Assessment Noted Time PHQ-9 Depression Total Score: 0 12/02/19 23 2:38 PM EST documented as of this encounter Care Teams Vinyl Dipper Relationship Specialty Start Date End Date Ernie Noriega MD [address] [place] [address] PCP - General Internal Medicine 08/25/19 [place] [facility] 03/31/25 05/25/25 [facility] 05/25/25 06/13/25 [facility] 05/25/25 06/19/25 [facility] 06/07/25 documented as of this encounter
--- OUTSIDE RECORDS SUMMARY | 2025-08-04 15:52 | XMS_ITS | Encounter Summary ---
Author Organization [employer] Address [address] [place] [address] 7t [place] [address] Care Team Providers Care Safety Equipment Testing Specialist Name Role Phone Ernie Noriega MD Primary Care Provide r Reason for Visit * Reason Onset Date Comments verbal order 11/21/2022 Encounter Details Date Type Department Care Team (Late st Contact Info) Description 11/21/2022 Telephone [facility] MEDICINE [address] [place] [address] Ernie Noriega MD [address] [place] [address] verbal order Social History Tobacco Use Types [...] PM EST Tc from Baldemar from [facility] calling to inform pt started home services today . Baldemar is also requesting a verbal order for pt to start physical therapy for 2x a week for 4 weeks . Best contact # [phone]. documented in this encounter Plan of Treatment Upcoming Encounters Date Type Department Care Team (Late st Contact Info) Description 09/01/2025 9:00 AM EST Clinical Support [facility] MEDICINE [address] [place] [address] 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 RN [address] [place] [address] 09/26/2025 3:00 PM EST Office Visit [facility] MEDICINE [address] [place] [address] Ernie Noriega MD [address] [place] [address] documented as of this encounter Visit Diagnoses Not on filedocumented in this encounter Care Teams Safety Equipment Testing Specialist Relationship Specialty Start Date End Date [place] [address] PCP - General Internal Medicine 08/25/19 [facility] 03/31/25 05/25/25 [facility] 05/25/25 06/13/25 [facility] 05/25/25 06/19/25 [facility] 06/07/25 documented as of this encounter
--- OUTSIDE RECORDS SUMMARY | 2025-08-04 15:52 | XMS_ITS | Encounter Summary ---
Author Organization [employer] Address 75 [facility] 7t [place] [address] Care Team Providers Care Rehabilitation Medicine Physician Name Role Phone Ernie Noriega MD Primary Care Provide r Encounter Details Date Type Department Care Team ([facility] Contact Info) Description 12/09/2022 Orders Only [facility] PEDIATRICS [address] [place] [address] Suha Alexander RN Social History Tobacco Use [...] 9:00 AM EST Clinical Support [facility] MEDICINE [address] [place] [address] 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 RN [address] [place] [address] 09/26/2025 3:00 PM EST Office Visit [facility] MED[facility]INE [address] [facility] [place] [address] Ernie Noriega MD [address] [facility] [place] [address] documented as of this encounter Procedures Procedure Name Priority Date/Time Associated Diagnosis Comments BI MAMMOGRAM SCREENING TOMOSYNTHESIS BILATERAL Routine 12/23/2022 11:35 AM EDT documented in this encounter Results * BI Mammogram Screening Tomosynthesis Bilateral (12/23/2022 11:35 AM EDT) Anatomical Region Laterality Modality Breast Bilateral Mammography 12/23/2022 11:3 5 AM EDT Narrative 12/24/2022 5:15 PM EDT [facility]'s [address] [place] [address] Mammography Report Signed Patient: Miguelina Watson MR#: [id number] : 1965 Acct:[id number] Age/Sex: 57 / F ADM Date: 12/23/22 Loc: HO.MAMMO Attending Dr: Ernie Merritt MD Ordering Physician: Ernie Merritt MD Resu lts: 1Negative Date of Service: 12/23/22 Follow Up: 1 Year From Orig ina Mammogram Procedure(s): MM tomosynthesis screening BI Accession Number(s): [id number] cc: Ernie Merritt MD EXAMINATION: MM SCREENING [...] in OV> 12/24/22 1712 DD/ 1135 TD/TT: Assignment Editor: SK Procedure Note Donotuseinterpreter, Image - 12/24/2022 [facility] [address] [place] [address] Mammography Report Signed Patient: Miguelina Watson#: [id number] : 1965Acct:[id number] Age/Sex: 57 / FADM Date: 12/23/22 Loc: HO.MAMMO Attending Dr: Ernie Merritt MD Ordering Physician: Ernie Merritt MDResu lts: 1Negative Date of Service: 12/23/22Follow Up: 1 Year From Orig inal Mammogram Procedure(s): MM tomosynthesis screening BI Accession Number(s): [id number] cc: Ernie Merritt MD EXAMINATION: MM SCREENING [...] in OV> 12/24/22 1712 DD/ 1135 TD/TT: Assignment Editor: SMITHA [facility] External Provider IMG BI PROCEDURES Edited Result - Final documented in this encounter Visit Diagnoses Not on filedocumented in this encounter Additional Health Concerns Assessment Noted Time PHQ-9 Depression Total Score: 0 12/02/19 23 2:38 PM EST documented as of this encounter Care Teams Rehabilitation Medicine Physician Relationship Specialty Start Date End Date Ernie Noriega MD [address] [place] [address] PCP - General Internal Medicine 08/25/19 [facility] 03/31/25 05/25/25 [facility] 05/25/25 06/13/25 [facility] 05/25/25 06/19/25 [facility] 06/07/25 documented as of this encounter
--- OUTSIDE RECORDS SUMMARY | 2025-08-04 15:52 | XMS_ITS | Encounter Summary ---
Author Organization [employer] Address 75 [facility] 7t [place] [address] Care Team Providers Care Hoe Runner Name Role Phone Ernie Noriega MD Primary Care Provide r Reason for Visit * Reason Comments Med Refill Encounter Details Date Type Department Care Team ([facility] Contact Info) Description 10/11/2023 Refill [facility] MEDICINE [address] [place] [address] Ernie Noriega MD [address] [place], [place] [phone] Social History Tobacco Use Types Packs/Day Years [...] 9:00 AM EST Clinical Support [facility] MEDICINE [address] [place] [phone] 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 RN [address] [place] [address] 09/26/2025 3:00 PM EST Office Visit [facility] MEDICINE [address] [place] [address] Ernie Noriega MD [address] [place] [address] documented as of this encounter Visit Diagnoses Not on filedocumented in this encounter Additional Health Concerns Assessment Noted Time PHQ-9 Depression Total Score: 0 12/02/19 23 2:38 PM EST documented as of this encounter Care Teams Hoe Runner Relationship Specialty Start Date End Date Ernie Noriega MD [address] [place] [address] PCP - General Internal Medicine 08/25/19 [facility] 03/31/25 05/25/25 [facility] 05/25/25 06/13/25 [facility] 05/25/25 06/19/25 [facility] 06/07/25 documented as of this encounter
--- OUTSIDE RECORDS SUMMARY | 2025-08-04 15:52 | XMS_ITS | Encounter Summary ---
Author Organization [employer] Address 75 [facility] 7t [place] [address] Care Team Providers Care Quality Measurement Specialist Name Role Phone Ernie Noriega MD Primary Care Provide r Reason for Visit * Reason Comments Med Refill Encounter Details Date Type Department Care Team ([facility] st Contact Info) Description 12/25/2023 Refill [facility] MEDICINE [address] [place] [address] Ernie Noriega MD 230 [place], [place] [phone] Pain; Primary hypertension; Seasonal allergies Social History [...] 09/01/2025 9:00 AM EST Clinical Support [address] [address] 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, RN [address] [place] [address] 09/26/2025 3:00 PM EST Office Visit [facility] MEDICINE [address] [place] [address] Ernie Noriega MD [address] [place] [address] documented as of this encounter Visit Diagnoses Diagnosis Pain Generalized pain Primary hypertension Unspecified essential hypertension Seasonal allergies Allergic rhinitis, cause unspecified documented in this encounter Additional Health Concerns Assessment Noted Time PHQ-9 Depression Total Score: 0 12/02/19 23 2:38 PM EST documented as of this encounter Care Teams Quality Measurement Specialist Relationship Specialty Start Date End Date Ernie Noriega MD [address] [place] [address] PCP - General Internal Medicine 08/25/19 [facility] 03/31/25 05/25/25 [facility] 05/25/25 06/13/25 [facility] 05/25/25 06/19/25 [facility] 06/07/25 documented as of this encounter
--- OUTSIDE RECORDS SUMMARY | 2025-08-04 15:52 | XMS_ITS | Encounter Summary ---
Author Organization [employer] Address 75 [facility] 7t [place] [address] Care Team Providers Care Basket Sorter Name Role Phone Ernie Noriega MD Primary Care Provide r Reason for Visit * Reason Onset Date Comments Referral 05/26/2025 Encounter Details Date Type Department Care Team ([facility] st Contact Info) Description 05/26/2025 Telephone [facility] MEDICINE [address] [place] [address] Ernie Noriega MD [address] [place] [address] Referral Social History Tobacco Use Types Packs/Day [...] for patients right shoulder Contact pt at [phone] (ukrainian) documented in this encounter Plan of Treatment Upcoming Encounters Date Type Department Care Team (Late st Contact Info) Description 09/01/2025 9:00 AM EST Clinical Support [facility] MEDICINE [address] [place] [address] 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 RN [address] [place] [address] 09/26/2025 3:00 PM EST Office Visit [facility] MEDICINE [address] [place] [address] Ernie Noriega MD [address] [place] [address] documented as of this encounter Visit Diagnoses Not on filedocumented in this encounter Additional Health Concerns Assessment Noted Time PHQ-9 Depression Total Score: 4 01/13/20 25 2:57 PM EDT documented as of this encounter Care Teams Basket Sorter Relationship Specialty Start Date End Date Ernie Noriega MD [address] [place] [address] PCP - General Internal Medicine 08/25/19 [facility] 05/25/25 06/13/25 [facility] 05/25/25 06/19/25 [facility] 06/07/25 documented as of this encounter
--- OUTSIDE RECORDS SUMMARY | 2025-08-04 15:52 | XMS_ITS | Encounter Summary ---
Author Organization [employer] Address [address] [place] [address] 7t [place] [address] Care Team Providers Care Hydrographer Name Role Phone Ernie Noriega MD Primary Care Provide r Reason for Visit * Reason Onset Date Comments Medication Question 10/03/2022 returning call 10/03/2022 Encounter Details Date Type Department Care Team ([facility] st Contact Info) Description 10/03/2022 Telephone [facility] MEDICINE [address] [place] [address] Ernie Noriega MD [address] [place] [address] Medication Question; returning call Social History Tobacco [...] pt returning call Please contact pt at [phone] * Telephone Encounter - Peg Scott RN - 10/10/2022 11:17 AM EST T/C placed to pt x2AM re below message. No answer, left v/m. Will retask to green nurses for third attempt. * Telephone Encounter - Peg Scott RN - 10/08/2022 3:32 PM EST Incoming T/C from Sylvia CAMARILLO from [facility]. She states spoke with PERMACULTURE CONTRACTOR who saw pt 09/24. It is not in the OV note (which is located in Epic under Media tab) but that pt reported pain during appt and PERMACULTURE CONTRACTOR advised pt speak to her PCP and [...] next month with PCP. Will send to [facility] nurses to attempt second call. [place]so sending to PCP as FYI. * Telephone Encounter - Peg Scott RN - 10/08/2022 10:34 AM EST Reviewed most recent note from [facility]. No [...] calling to inform was told by her [facility] Physicians DR to request [...] Description 09/01/2025 9:00 AM EST Clinical Support [address] [place] [address] 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, RN [address] [place] [address] 09/26/2025 3:00 PM EST Office Visit [facility] 230 [facility] [place] [address] Ernie Noriega MD 230 [facility] [place] [address] documented as of this encounter Visit Diagnoses Not on filedocumented in this encounter Care Teams Hydrographer Relationship Specialty Start Date End Date Ernie Noriega MD [facility] [place] [address] PCP - General Internal Medicine 08/25/19 [facility] 03/31/25 05/25/25 [facility] 05/25/25 06/13/25 [facility] 05/25/25 06/19/25 [facility] 06/07/25 documented as of this encounter
== END 2025-08-04 14:48 | disposition home or self-care (01) ==
LOC: HO.HUSH 13:49
PROVIDERS: PCP Internal Medicine; Visit Provider Urology
DX: N39.8 Other specified disorders of urinary system (principal); R39.11 Hesitancy of micturition
CPT/HCPCS: 99214

== ENCOUNTER → 2025-08-04 13:49 | Outpatient (BNVA) | payer MEDICAID, SELFPAY | PROVIDERS: PCP Internal Medicine; Visit Provider Urology | DX: R39.15 Urgency of urination (principal); R39.11 Hesitancy of micturition; M54.50 Low back pain, unspecified; G89.29 Other chronic pain | CPT/HCPCS: 51798 ==

== ENCOUNTER 2025-10-10 09:21 | Outpatient (AMB) | payer MEDICAID, SELFPAY ==
[2025-10-10 09:23] VITALS: BP 138/76; BMI 29.4
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
--- OUTSIDE RECORDS SUMMARY | 2025-10-10 11:50 | XMS_ITS | Encounter Summary ---
Author Organization [employer] Address [address] [facility] 7t [place] [address] Care Team Providers Care Furniture Painter Name Role Phone Ernie Noriega MD Primary Care Provide r Reason for Visit * Reason Onset Date Comments Med Refill 04/16/2024 Encounter Details Date Type Department Care Team (Late st Contact Info) Description 04/16/2024 Refill [facility] MEDICINE [address] [place] [address] Ernie Noriega MD [address] [place] [address] Essential hypertension Social History Tobacco Use Types [...] Upcoming Encounters Date Type Department Care Team ([facility] st Contact Info) Description 11/27/2025 9:30 AM EST Telemedicine [facility] [address] [place] [address] 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, MARQUISE [address] [place] [address] documented as of this encounter Visit Diagnoses Diagnosis Essential hypertension Unspecified essential hypertension documented in this encounter Additional Health Concerns Assessment Noted Time PHQ-9 Depression Total Score: 2 01/21/20 24 1:25 PM EDT documented as of this encounter Care Teams Furniture Painter Relationship Specialty Start Date End Date Ernie Noriega MD [address] [place] [address] PCP - General Internal Medicine 08/25/19 [facility] 03/31/25 05/25/25 [facility] 05/25/25 06/13/25 [facility] 05/25/25 06/19/25 [facility] 06/07/25 documented as of this encounter
--- OUTSIDE RECORDS SUMMARY | 2025-10-10 11:50 | XMS_ITS | Encounter Summary ---
Author Organization [employer] Address 75 [facility] 7t [place] [address] Care Team Providers Care Coil Strapper Name Role Phone Ernie Noriega MD Primary Care Provide r Reason for Visit * Reason Onset Date Comments Med Refill 06/26/2025 Encounter Details Date Type Department Care Team (Late st Contact Info) Description 06/26/2025 Refill [facility] MEDICINE 230 [place] [address] Ernie Noriega MD 230 [place] [address] Chronic midline low back pain without sciatica [...] Care Team (Late st Contact Info) Description 11/27/2025 9:30 AM EST Telemedicine [facility] MED & PEDS 505 [place] [address] 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, RN 505 [place] [address] documented as of this encounter Visit Diagnoses Diagnosis Chronic midline low back pain without sciatica documented in this encounter Additional Health Concerns Assessment Noted Time PHQ-9 Depression Total Score: 4 01/13/20 25 2:57 PM EDT documented as of this encounter Care Teams Coil Strapper Relationship Specialty Start Date End Date Ernie Noriega MD [address] [place] [address] PCP - General Internal Medicine 08/25/19 Elida LENZ 06/07/25 documented as of this encounter
--- OUTSIDE RECORDS SUMMARY | 2025-10-10 11:50 | XMS_ITS | Encounter Summary ---
Author Organization [employer] Address 75 [facility] 7t [place] [address] Care Team Providers Care Doctor Of Nursing Practice Name Role Phone Ernie Noriega MD Primary Care Provide r Reason for Visit * Reason Onset Date Comments Med Refill 10/17/2024 Encounter Details Date Type Department Care Team (Late st Contact Info) Description 10/17/2024 Refill [facility] MEDICINE 230 [place] [address] Ernie Noriega MD 230 [place] [address] Primary osteoarthritis of knee, unspecified laterality Social [...] Info) Description 11/27/2025 9:30 AM EST Telemedicine [facility] CH[facility] MED & PEDS 505 [place] [address] 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, MARQUISE 505 [place] [address] documented as of this encounter Visit Diagnoses Diagnosis Primary osteoarthritis of knee, unspecified laterality documented in this encounter Additional Health Concerns Assessment Noted Time PHQ-9 Depression Total Score: 2 01/21/20 24 1:25 PM EDT documented as of this encounter Care Teams Doctor Of Nursing Practice Relationship Specialty Start Date End Date Ernie Noriega MD [address] [place] [address] PCP - General Internal Medicine 08/25/19 [facility] 03/31/25 05/25/25 [facility] 05/25/25 06/13/25 [facility] 05/25/25 06/19/25 [facility] 06/07/25 documented as of this encounter
--- OUTSIDE RECORDS SUMMARY | 2025-10-10 11:50 | XMS_ITS | Encounter Summary ---
Author Organization [employer] Address 75 [facility] 7t [place] [address] Care Team Providers Care E Business Specialist Name Role Phone Ernie Noriega MD Primary Care Provide r Reason for Visit * Reason Onset Date Comments Med Refill 06/25/2024 Encounter Details Date Type Department Care Team (Late st Contact Info) Description 06/25/2024 Refill [facility] MEDICINE 230 [place] [address] Ernie Noriega MD 230 [place] [address] Chronic midline low back pain without sciatica; [...] Info) Description 11/27/2025 9:30 AM EST Telemedicine [facility] MED & PEDS 505 [place] [address] 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 RN 505 [place] [address] documented as of this encounter Visit Diagnoses Diagnosis Chronic midline low back pain without sciatica Cervical radiculopathy Brachial neuritis or radiculitis nos documented in this encounter Additional Health Concerns Assessment Noted Time PHQ-9 Depression Total Score: 2 01/21/20 24 1:25 PM EDT documented as of this encounter Care Teams E Business Specialist Relationship Specialty Start Date End Date Ernie Noriega MD [address] [place] [address] PCP - General Internal Medicine 08/25/19 [facility] 03/31/25 05/25/25 [facility] 05/25/25 06/13/25 [facility] 05/25/25 06/19/25 [facility] 06/07/25 documented as of this encounter
--- OUTSIDE RECORDS SUMMARY | 2025-10-10 11:50 | XMS_ITS | Encounter Summary ---
Author Organization [employer] Address 75 [facility] 7t [place] [address] Care Team Providers Care Floor Service Worker Spring Name Role Phone Ernie Noriega MD Primary Care Provide r Reason for Visit * Reason Onset Date Comments Med Refill 11/01/2024 Encounter Details Date Type Department Care Team ([facility] st Contact Info) Description 11/01/2024 Refill [facility] MEDICINE 230 [place] [address] Sugar Mitchell MD 230 [place] [address] Seasonal allergies Social History Tobacco Use Types [...] 11/27/2025 9:30 AM EST Telemedicine [facility] MED & PEDS 505 [place] [address] 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, RN 505 [place] [address] documented as of this encounter Visit Diagnoses Diagnosis Seasonal allergies Allergic rhinitis, cause unspecified documented in this encounter Additional Health Concerns Assessment Noted Time PHQ-9 Depression Total Score: 2 01/21/20 24 1:25 PM EDT documented as of this encounter Care Teams Floor Service Worker Spring Relationship Specialty Start Date End Date Ernie Noriega MD [address] [place] [address] PCP - General Internal Medicine 08/25/19 [facility] 03/31/25 05/25/25 [facility] 05/25/25 06/13/25 [facility] 05/25/25 06/19/25 [facility] 06/07/25 documented as of this encounter
--- OUTSIDE RECORDS SUMMARY | 2025-10-10 11:50 | XMS_ITS | Encounter Summary ---
Author Organization [employer] Address 75 [facility] 7t [place] [address] Care Team Providers Care Tube Draw Helper Name Role Phone Ernie Noriega MD Primary Care Provide r Reason for Visit * Reason Comments Med Refill Encounter Details Date Type Department Care Team ([facility] st Contact Info) Description 07/28/2024 Refill [facility] MEDICINE 230 [place] [address] Ernie Noriega MD 230 [place], [place] [phone] Primary osteoarthritis of knee, unspecified laterality Social [...] Upcoming Encounters Date Type Department Care Team ([facility] st Contact Info) Description 11/27/2025 9:30 AM EST Telemedicine [facility] MED & PEDS 505 [place] [address] 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, MARQUISE 505 [place] [address] documented as of this encounter Visit Diagnoses Diagnosis Primary osteoarthritis of knee, unspecified laterality documented in this encounter Additional Health Concerns Assessment Noted Time PHQ-9 Depression Total Score: 2 01/21/20 24 1:25 PM EDT documented as of this encounter Care Teams Tube Draw Helper Relationship Specialty Start Date End Date Ernie Noriega MD 230 [place] [address] PCP - General Internal Medicine 08/25/19 [facility] 03/31/25 05/25/25 [facility] 05/25/25 06/13/25 [facility] 05/25/25 06/19/25 [facility] 06/07/25 documented as of this encounter
--- OUTSIDE RECORDS SUMMARY | 2025-10-10 11:50 | XMS_ITS | Encounter Summary ---
Author Organization [employer] Address 75 [facility] 7t [place] [address] Care Team Providers Care Saw Offbearer Name Role Phone Ernie Noriega MD Primary Care Provide r Reason for Visit * Reason Comments Med Refill Encounter Details Date Type Department Care Team ([facility] Contact Info) Description 04/11/2025 Refill [facility] MEDICINE 230 [place] [address] Ofelia Melgar MD 230 [place] [address] Social History Tobacco Use Types Packs/Day Years [...] 11/27/2025 9:30 AM EST Telemedicine [facility] MED & PEDS 505 [place] [address] 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, MARQUISE 505 [place] [address] documented as of this encounter Visit Diagnoses Not on filedocumented in this encounter Additional Health Concerns Assessment Noted Time PHQ-9 Depression Total Score: 4 01/13/20 25 2:57 PM EDT documented as of this encounter Care Teams Saw Offbearer Relationship Specialty Start Date End Date Ernie Noriega MD [address] [place] [address] PCP - General Internal Medicine 08/25/19 [facility] 03/31/25 05/25/25 [facility] 05/25/25 06/13/25 [facility] 05/25/25 06/19/25 [facility] 06/07/25 documented as of this encounter
--- OUTSIDE RECORDS SUMMARY | 2025-10-10 11:50 | XMS_ITS | Encounter Summary ---
Author Organization [employer] Address 75 [facility] 7t [place] [address] Care Team Providers Care Project Accountant Name Role Phone Ernie Noriega MD Primary Care Provide r Reason for Visit * Reason Onset Date Comments Med Refill 03/15/2024 Encounter Details Date Type Department Care Team (Late st Contact Info) Description 03/15/2024 Refill [facility] MEDICINE 230 [place] [address] Ofelia Melgar MD 230 [place] [address] Chronic midline low back pain without sciatica; [...] 11/27/2025 9:30 AM EST Telemedicine [facility] MED & PEDS 505 [place] [address] 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, MARQUISE 505 [place] [address] documented as of this encounter Visit Diagnoses Diagnosis Chronic midline low back pain without sciatica Cervical radiculopathy Brachial neuritis or radiculitis nos documented in this encounter Additional Health Concerns Assessment Noted Time PHQ-9 Depression Total Score: 2 01/21/20 24 1:25 PM EDT documented as of this encounter Care Teams Project Accountant Relationship Specialty Start Date End Date Ernie Noriega MD 230 [place] [address] PCP - General Internal Medicine 08/25/19 [facility] 03/31/25 05/25/25 [facility] 05/25/25 06/13/25 [facility] 05/25/25 06/19/25 [facility] 06/07/25 documented as of this encounter
--- OUTSIDE RECORDS SUMMARY | 2025-10-10 11:50 | XMS_ITS | Encounter Summary ---
Author Organization [employer] Address 75 [facility] 7t [place] [address] Care Team Providers Care Ramp Manager Name Role Phone Ernie Noriega MD Primary Care Provide r Reason for Visit * Reason Onset Date Comments Med Refill 08/12/2024 Encounter Details Date Type Department Care Team (Late st Contact Info) Description 08/12/2024 Refill [facility] MEDICINE 230 [place] [address] Ilsa Robison, ANP 230 [place] [address] Primary osteoarthritis of knee, unspecified laterality Social [...] Upcoming Encounters Date Type Department Care Team ([facility] st Contact Info) Description 11/27/2025 9:30 AM EST Telemedicine [facility] MED & PEDS 505 [place] [address] 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, MARQUISE 505 [place] [address] documented as of this encounter Visit Diagnoses Diagnosis Primary osteoarthritis of knee, unspecified laterality documented in this encounter Additional Health Concerns Assessment Noted Time PHQ-9 Depression Total Score: 2 01/21/20 24 1:25 PM EDT documented as of this encounter Care Teams Ramp Manager Relationship Specialty Start Date End Date Ernie Noriega MD 230 [place] [address] PCP - General Internal Medicine 08/25/19 [facility] [facility] [place] [facility] 03/31/25 05/25/25 [facility] 05/25/25 06/13/25 [facility] 05/25/25 06/19/25 [facility] 06/07/25 documented as of this encounter
--- OUTSIDE RECORDS SUMMARY | 2025-10-10 11:50 | XMS_ITS | Encounter Summary ---
Author Organization [employer] Address 75 [facility] 7t [place] [address] Care Team Providers Care Computer Information Systems Instructor Name Role Phone Ernie Noriega MD Primary Care Provide r Reason for Visit * Reason Onset Date Comments Med Refill 01/10/2025 Encounter Details Date Type Department Care Team (Late st Contact Info) Description 01/10/[address] [facility] MEDICINE 230 [place] [address] Ernie Noriega MD 230 [place] [address] Chronic midline low back pain without sciatica [...] Info) Description 11/27/2025 9:30 AM EST Telemedicine [facility] CHC MED & PEDS 505 [place] [address] 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, MARQUISE 505 [place] [address] documented as of this encounter Visit Diagnoses Diagnosis Chronic midline low back pain without sciatica documented in this encounter Additional Health Concerns Assessment Noted Time PHQ-9 Depression Total Score: 2 01/21/20 24 1:25 PM EDT documented as of this encounter Care Teams Computer Information Systems Instructor Relationship Specialty Start Date End Date Ernie Noriega MD [address] [place] [address] PCP - General Internal Medicine 08/25/19 [facility] 03/31/25 05/25/25 [facility] 05/25/25 06/13/25 [facility] 05/25/25 06/19/25 [facility] 06/07/25 documented as of this encounter
--- OUTSIDE RECORDS SUMMARY | 2025-10-10 11:50 | XMS_ITS | Encounter Summary ---
Author Organization [employer] Address 75 [facility] 7t [place] [address] Care Team Providers Care Banking Teacher Name Role Phone Ernie Noriega MD Primary Care Provide r Reason for Visit * Reason Onset Date Comments Referral 04/18/2025 Encounter Details Date Type Department Care Team ([facility] st Contact Info) Description 04/18/2025 Telephone [facility] MEDICINE 230 [place] [address] Ernie Noriega MD 230 [place] [address] Referral Social History Tobacco Use Types Packs/Day [...] would like to change Podiatry location from [facility] to [facility] Podiatry: Dr. Blankenship, [address] [place] [address]. If any questions you can contact pt at [phone] documented in this encounter Plan of Treatment Upcoming Encounters Date Type Department Care Team ([facility] st Contact Info) Description 11/27/2025 9:30 AM EST Telemedicine [facility] MED & PEDS 505 [place] [address] 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, MARQUISE 505 [place] [address] documented as of this encounter Visit Diagnoses Not on filedocumented in this encounter Additional Health Concerns Assessment Noted Time PHQ-9 Depression Total Score: 4 01/13/20 25 2:57 PM EDT documented as of this encounter Care Teams Banking Teacher Relationship Specialty Start Date End Date Ernie Noriega MD 230 [place] [address] PCP - General Internal Medicine 08/25/19 Elida LENZ 03/31/25 05/25/25 Jesus LENZ 05/25/25 06/13/25 Jesus LENZ 05/25/25 06/19/25 Elida KELLY 06/07/25 documented as of this encounter
--- OUTSIDE RECORDS SUMMARY | 2025-10-10 11:50 | XMS_ITS | Encounter Summary ---
Author Organization [employer] Address 75 [facility] 7t [place] [address] Care Team Providers Care Light Rail Transit Operator Name Role Phone Ernie Noriega MD Primary Care Provide r Reason for Visit * Reason Onset Date Comments Med Refill 10/25/2024 Encounter Details Date Type Department Care Team (Late st Contact Info) Description 10/25/2024 Refill [facility] MEDICINE 230 [place] [address] Ernie Noriega MD 230 [place] [address] Chronic midline low back pain without sciatica [...] Info) Description 11/27/2025 9:30 AM EST Telemedicine [facility] CHC MED & PEDS 505 [place] [address] 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, MARQUISE 505 [place] [address] documented as of this encounter Visit Diagnoses Diagnosis Chronic midline low back pain without sciatica documented in this encounter Additional Health Concerns Assessment Noted Time PHQ-9 Depression Total Score: 2 01/21/20 24 1:25 PM EDT documented as of this encounter Care Teams Light Rail Transit Operator Relationship Specialty Start Date End Date Ernie Noriega MD [address] [place] [address] PCP - General Internal Medicine 08/25/19 [facility] 03/31/25 05/25/25 [facility] 05/25/25 06/13/25 [facility] 05/25/25 06/19/25 [facility] 06/07/25 documented as of this encounter
--- OUTSIDE RECORDS SUMMARY | 2025-10-10 11:50 | XMS_ITS | Encounter Summary ---
Author Organization [employer] Address 75 [facility] 7t [place] [address] Care Team Providers Care Street Light Servicer Supervisor Name Role Phone Ernie Noriega MD Primary Care Provide r Reason for Visit * Reason Onset Date Comments Med Refill 08/13/2024 Encounter Details Date Type Department Care Team ([facility] st Contact Info) Description 08/13/2024 Refill [facility] MEDICINE [address] [place] [address] Ernie Noriega MD 230 [place] [address] Seasonal allergies Social History Tobacco Use Types [...] Upcoming Encounters Date Type Department Care Team ([facility] st Contact Info) Description 11/27/2025 9:30 AM EST Telemedicine [facility] MED & PEDS 505 [place] [address] 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, MARQUISE 505 [place] [address] documented as of this encounter Visit Diagnoses Diagnosis Seasonal allergies Allergic rhinitis, cause unspecified documented in this encounter Additional Health Concerns Assessment Noted Time PHQ-9 Depression Total Score: 2 01/21/20 24 1:25 PM EDT documented as of this encounter Care Teams Street Light Servicer Supervisor Relationship Specialty Start Date End Date Ernie Noriega MD 230 [place] [address] PCP - General Internal Medicine 08/25/19 [facility] 03/31/25 05/25/25 [facility] 05/25/25 06/13/25 [facility] 05/25/25 06/19/25 [facility] 06/07/25 documented as of this encounter
--- OUTSIDE RECORDS SUMMARY | 2025-10-10 11:50 | XMS_ITS | Encounter Summary ---
Author Organization [employer] Address 75 [facility] 7t [place] [address] Care Team Providers Care Cocoa Room Operator Name Role Phone Ernie Noriega MD Primary Care Provide r Reason for Visit * Reason Onset Date Comments Med Refill 01/26/2024 Encounter Details Date Type Department Care Team (Late st Contact Info) Description 01/26/2024 Refill [facility] MEDICINE 230 [place] [address] Ilsa Robison, ANP 230 [place] [address] Chronic midline low back pain without sciatica; [...] Upcoming Encounters Date Type Department Care Team ([facility] st Contact Info) Description 11/27/2025 9:30 AM EST Telemedicine [facility] MED & PEDS 505 [place] [address] 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, RN 505 [place] [address] documented as of this encounter Visit Diagnoses Diagnosis Chronic midline low back pain without sciatica Cervical radiculopathy Brachial neuritis or radiculitis nos documented in this encounter Additional Health Concerns Assessment Noted Time PHQ-9 Depression Total Score: 2 01/21/20 24 1:25 PM EDT documented as of this encounter Care Teams Cocoa Room Operator Relationship Specialty Start Date End Date Ernie Noriega MD [address] [place] [address] PCP - General Internal Medicine 08/25/19 [facility] 03/31/25 05/25/25 [facility] 05/25/25 06/13/25 [facility] 05/25/25 06/19/25 [facility] 06/07/25 documented as of this encounter
--- OUTSIDE RECORDS SUMMARY | 2025-10-10 11:50 | XMS_ITS | Encounter Summary ---
Author Organization [employer] Address 75 [facility] 7t [place] [address] Care Team Providers Care Net Developer With [employer] Name Role Phone Ernie Noriega MD Primary Care Provide r Reason for Visit * Reason Onset Date Comments Med Refill 01/10/2025 Encounter Details Date Type Department Care Team (Late st Contact Info) Description 01/10/2025 Refill [facility] MEDICINE 230 [place] [address] Ernie Noriega MD 230 [place] [address] Primary osteoarthritis of knee, unspecified laterality Social [...] Info) Description 11/27/2025 9:30 AM EST Telemedicine [facility]C MED & PEDS 505 [place] [address] 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, MARQUISE 505 [place] [address] documented as of this encounter Visit Diagnoses Diagnosis Primary osteoarthritis of knee, unspecified laterality documented in this encounter Additional Health Concerns Assessment Noted Time PHQ-9 Depression Total Score: 2 01/21/20 24 1:25 PM EDT documented as of this encounter Care Teams Net Developer With [employer] Relationship Specialty Start Date End Date Ernie Noriega MD [address] [place] [address] PCP - General Internal Medicine 08/25/19 [facility] 03/31/25 05/25/25 [facility] 05/25/25 06/13/25 [facility] 05/25/25 06/19/25 [facility] 06/07/25 documented as of this encounter
--- OUTSIDE RECORDS SUMMARY | 2025-10-10 11:50 | XMS_ITS | Encounter Summary ---
Author Organization [employer] Address 75 [facility] 7t [place] [address] Care Team Providers Care Drivematic Machine Operator Name Role Phone Ernie Noriega MD Primary Care Provide r Reason for Visit * Reason Onset Date Comments Med Refill 11/07/2024 Encounter Details Date Type Department Care Team (Late st Contact Info) Description 11/07/2024 Refill [facility] MEDICINE 230 [place] [address] Ernie Noriega MD 230 [place], [place] [phone] Chronic midline low back pain without sciatica [...] Info) Description 11/27/2025 9:30 AM EST Telemedicine [facility]C MED & PEDS 505 [place] [address] 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, MARQUISE 505 [place] [address] documented as of this encounter Visit Diagnoses Diagnosis Chronic midline low back pain without sciatica documented in this encounter Additional Health Concerns Assessment Noted Time PHQ-9 Depression Total Score: 2 01/21/20 24 1:25 PM EDT documented as of this encounter Care Teams Drivematic Machine Operator Relationship Specialty Start Date End Date Ernie Noriega MD [address] [place] [address] PCP - General Internal Medicine 08/25/19 [place] 03/31/25 05/25/25 [facility] 05/25/25 06/13/25 [facility] 05/25/25 06/19/25 [facility] 06/07/25 documented as of this encounter
--- OUTSIDE RECORDS SUMMARY | 2025-10-10 11:50 | XMS_ITS | Encounter Summary ---
Author Organization [employer] Address 75 [facility] 7t [place] [address] Care Team Providers Care Decal Cutter Name Role Phone Ernie Noriega MD Primary Care Provide r Reason for Visit * Reason Onset Date Comments Med Refill 04/13/2025 Encounter Details Date Type Department Care Team (Late st Contact Info) Description 04/13/2025 Refill [facility] MEDICINE [address] [place] [address] Ernie Noriega MD 230 [place] [address] Primary osteoarthritis of knee, unspecified laterality Social [...] Info) Description 11/27/2025 9:30 AM EST Telemedicine [facility]C MED & PEDS 505 [place] [address] 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, MARQUISE 505 [place] [address] documented as of this encounter Visit Diagnoses Diagnosis Primary osteoarthritis of knee, unspecified laterality documented in this encounter Additional Health Concerns Assessment Noted Time PHQ-9 Depression Total Score: 4 01/13/20 25 2:57 PM EDT documented as of this encounter Care Teams Decal Cutter Relationship Specialty Start Date End Date Ernie Noriega MD [address] [place] [address] PCP - General Internal Medicine 08/25/19 [facility] 03/31/25 05/25/25 [facility] 05/25/25 06/13/25 [facility] 05/25/25 06/19/25 [facility] 06/07/25 documented as of this encounter
--- OUTSIDE RECORDS SUMMARY | 2025-10-10 11:50 | XMS_ITS | Encounter Summary ---
Author Organization [employer] Address 75 [facility] 7t [place] [address] Care Team Providers Care Director Software Name Role Phone Ernie Noriega MD Primary Care Provide r Reason for Visit * Reason Comments Med Refill Encounter Details Date Type Department Care Team ([facility] st Contact Info) Description 08/10/2023 Refill [facility] MEDICINE 230 [place] [address] Ernie Noriega MD 230 [place] [address] Primary osteoarthritis of knee, unspecified laterality; Chronic [...] Upcoming Encounters Date Type Department Care Team ([facility] st Contact Info) Description 11/27/2025 9:30 AM EST Telemedicine [facility] MED & PEDS 505 [place] [address] 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, MARQUISE 505 [place] [address] documented as of this encounter Visit Diagnoses Diagnosis Primary osteoarthritis of knee, unspecified laterality Chronic midline low back pain without sciatica Cervical radiculopathy Brachial neuritis or radiculitis nos Pain Generalized pain documented in this encounter Additional Health Concerns Assessment Noted Time PHQ-9 Depression Total Score: 0 12/02/19 23 2:38 PM EST documented as of this encounter Care Teams Director Software Relationship Specialty Start Date End Date Ernie Noriega MD [address] [place] [address] PCP - General Internal Medicine 08/25/19 [facility] 03/31/25 05/25/25 [facility] 05/25/25 06/13/25 [facility] 05/25/25 06/19/25 [facility] 06/07/25 documented as of this encounter
--- OUTSIDE RECORDS SUMMARY | 2025-10-10 11:51 | XMS_ITS | Encounter Summary ---
Author Organization [employer] Address 75 [facility] 7t [place] [address] Care Team Providers Care Sql Ssrs Developer Name Role Phone Ernie Noriega MD Primary Care Provide r Reason for Visit * Reason Onset Date Comments Med Refill 04/24/2024 Encounter Details Date Type Department Care Team (Late st Contact Info) Description 04/24/2024 Refill [facility] MEDICINE [address] [place] [address] Ernie Noriega MD 230 [place] [address] Essential hypertension Social History Tobacco Use Types [...] Upcoming Encounters Date Type Department Care Team ([facility] st Contact Info) Description 11/27/2025 9:30 AM EST Telemedicine [facility] MED & PEDS 505 [place] [address] 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, MARQUISE 505 [place] [address] documented as of this encounter Visit Diagnoses Diagnosis Essential hypertension Unspecified essential hypertension documented in this encounter Additional Health Concerns Assessment Noted Time PHQ-9 Depression Total Score: 2 01/21/20 24 1:25 PM EDT documented as of this encounter Care Teams Sql Ssrs Developer Relationship Specialty Start Date End Date Ernie Noriega MD 230 [place] [address] PCP - General Internal Medicine 08/25/19 [facility] [facility] 03/31/25 05/25/25 [facility] 05/25/25 06/13/25 [facility] 05/25/25 06/19/25 [facility] 06/07/25 documented as of this encounter
--- OUTSIDE RECORDS SUMMARY | 2025-10-10 11:51 | XMS_ITS | Encounter Summary ---
Author Organization [employer] Address 75 [facility] 7t [place] [address] Care Team Providers Care Desktop Operator Name Role Phone Ernie Noriega MD Primary Care Provide r Reason for Visit * Reason Onset Date Comments Med Refill 10/13/2024 Encounter Details Date Type Department Care Team (Late st Contact Info) Description 10/13/2024 Refill [facility] MEDICINE 230 [place] [address] Ernie Noriega MD 230 [place], [place] [phone] Chronic midline low back pain without sciatica [...] Info) Description 11/27/2025 9:30 AM EST Telemedicine [facility] MED & PEDS 505 [place] [address] Francy Huirton, MARQUISE 505 [place] [address] documented as of this encounter Visit Diagnoses Diagnosis Chronic midline low back pain without sciatica documented in this encounter Additional Health Concerns Assessment Noted Time PHQ-9 Depression Total Score: 2 01/21/20 24 1:25 PM EDT documented as of this encounter Care Teams Desktop Operator Relationship Specialty Start Date End Date Ernie Noriega MD [address] [place] [address] PCP - General Internal Medicine 08/25/19 [place] [facility] 03/31/25 05/25/25 [facility] 05/25/25 06/13/25 [facility] 05/25/25 06/19/25 [facility] [place] [facility] 06/07/25 documented as of this encounter
--- OUTSIDE RECORDS SUMMARY | 2025-10-10 11:51 | XMS_ITS | Encounter Summary ---
Author Organization [email or web address] Address 75 [facility] 7t [place] [address] Care Team Providers Care Porter Luggage Name Role Phone Ernie Noriega MD Primary Care Provide r Reason for Visit * Reason Onset Date Comments Med Refill 06/26/2025 Encounter Details Date Type Department Care Team ([facility] st Contact Info) Description 06/26/2025 Refill [facility] MEDICINE 230 [place] [address] Ernie Noriega MD 230 [place] [address] Gastritis without bleeding, unspecified chronicity, unspecified gastritis [...] Info) Description 11/27/2025 9:30 AM EST Telemedicine [facility] MED & PEDS 505 [place] [address] 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, MARQUISE 505 [place] [address] documented as of this encounter Visit Diagnoses Diagnosis Gastritis without bleeding, unspecified chronicity, unspecified gastritis type documented in this encounter Additional Health Concerns Assessment Noted Time PHQ-9 Depression Total Score: 4 01/13/20 25 2:57 PM EDT documented as of this encounter Care Teams Porter Luggage Relationship Specialty Start Date End Date Ernie Noriega MD 230 [place] [address] PCP - General Internal Medicine 08/25/19 [facility] 06/07/25 documented as of this encounter
--- OUTSIDE RECORDS SUMMARY | 2025-10-10 11:51 | XMS_ITS | Encounter Summary ---
Author Organization [employer] Address [address] [place] [address] 7t [place] [address] Care Team Providers Care Park Interpretive Ranger Name Role Phone Ernie Noriega MD Primary Care Provide r Encounter Details Date Type Department Care Team (Late Contact Info) Description 02/18/2023 Abstract [facility] MEDICINE 230 [place] [address] Ernie Noriega MD 230 [place] [address] Social History Tobacco Use Types Packs/Day Years [...] Info) Description 11/27/2025 9:30 AM EST Telemedicine [facility] CH[facility] MED & PEDS 505 [place] [address] 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, RN 505 [place] [address] documented as of this encounter Procedures Procedure Name Priority Date/Time Associated Diagnosis Comments COLONOSCOPY Routine 06/15/2013 documented in this encounter Results * Colonoscopy (06/15/2013) Colonoscopy Normal Normal 06/15/2013 Luis Antonio Chery Hays - 06/15/2013 12:03 PM EDT Recommended 10 years follow up us Historical Provider HEALTH MAINTENANCE Edited Result - Final documented in this encounter Visit Diagnoses Not on filedocumented in this encounter Additional Health Concerns Assessment Noted Time PHQ-9 Depression Total Score: 0 12/02/19 23 2:38 PM EST documented as of this encounter Care Teams Park Interpretive Ranger Relationship Specialty Start Date End Date Ernie Noriega MD [address] [place] [address] PCP - General Internal Medicine 08/25/19 [place] [facility] 03/31/25 05/25/25 [facility] 05/25/25 06/13/25 [facility] 05/25/25 06/19/25 [facility] [place] [facility] 06/07/25 documented as of this encounter
--- OUTSIDE RECORDS SUMMARY | 2025-10-10 11:51 | XMS_ITS | Encounter Summary ---
Author Organization [employer] Address 75 [facility] 7t [place] [address] Care Team Providers Care Electromechanic Name Role Phone Ernie Noriega MD Primary Care Provide r Reason for Visit * Reason Onset Date Comments Med Refill 09/28/2024 Encounter Details Date Type Department Care Team ([facility] st Contact Info) Description 09/28/2024 Telephone [facility] MEDICINE 230 [place] [address] Ernie Noriega MD 230 [place] [address] Med Refill Social History Tobacco Use Types [...] 300 MG capsule To be sent to: [facility]/pharmacy #[id number] [place] [address] documented in this encounter Plan of Treatment Upcoming Encounters Date Type Department Care Team (Late st Contact Info) Description 11/27/2025 9:30 AM EST Telemedicine [facility] MED & PEDS 505 [place] [address] 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, MARQUISE 505 [place] [address] documented as of this encounter Visit Diagnoses Not on filedocumented in this encounter Additional Health Concerns Assessment Noted Time PHQ-9 Depression Total Score: 2 01/21/20 24 1:25 PM EDT documented as of this encounter Care Teams Electromechanic Relationship Specialty Start Date End Date Ernie Noriega MD [address] [facility] [place] [address] PCP - General Internal Medicine 08/25/19 [facility] 03/31/25 05/25/25 [facility] 05/25/25 06/13/25 [facility] 05/25/25 06/19/25 [facility] 06/07/25 documented as of this encounter
--- OUTSIDE RECORDS SUMMARY | 2025-10-10 11:51 | XMS_ITS | Encounter Summary ---
Author Organization [employer] Address 75 [facility] 7t [place] [address] Care Team Providers Care Sheep Rancher Name Role Phone Ernie Noriega MD Primary Care Provide r Reason for Visit * Reason Onset Date Comments Med Refill 08/15/2025 Encounter Details Date Type Department Care Team (Late st Contact Info) Description 08/15/2025 Refill [facility] MEDICINE 230 [place] [address] Ernie Noriega MD 230 [place] [address] Chronic midline low back pain without sciatica [...] Info) Description 11/27/2025 9:30 AM EST Telemedicine [facility] MED & PEDS 505 [place] [address] 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, RN 505 [place] [address] documented as of this encounter Visit Diagnoses Diagnosis Chronic midline low back pain without sciatica documented in this encounter Additional Health Concerns Assessment Noted Time PHQ-9 Depression Total Score: 4 01/13/20 25 2:57 PM EDT documented as of this encounter Care Teams Sheep Rancher Relationship Specialty Start Date End Date Ernie Noriega MD [address] [place] [address] PCP - General Internal Medicine 08/25/19 [facility] 06/07/25 documented as of this encounter
--- OUTSIDE RECORDS SUMMARY | 2025-10-10 11:51 | XMS_ITS | Encounter Summary ---
Author Organization [employer] Address [address] [place] [address] 7t [place] [address] Care Team Providers Care Convention Worker Name Role Phone Ernie Noriega MD Primary Care Provide r Reason for Visit * Reason Onset Date Comments Appointment Request 02/17/2023 Encounter Details Date Type Department Care Team ([facility] st Contact Info) Description 02/17/2023 Telephone [facility] MEDICINE 230 [place] [address] Ernie Noriega MD 230 [place] [address] Appointment Request Social History Tobacco Use Types [...] a colonoscopy due to advise by her pipe bowl paint trimmer in [facility] Please contact pt AT [phone] [place] Citizen Speaker documented in this encounter Plan of Treatment Upcoming Encounters Date Type Department Care Team ([facility] st Contact Info) Description 11/27/2025 9:30 AM EST Telemedicine [facility] MED & PEDS 505 [place] [address] 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, RN 505 [place] [address] documented as of this encounter Visit Diagnoses Not on filedocumented in this encounter Additional Health Concerns Assessment Noted Time PHQ-9 Depression Total Score: 0 12/02/19 23 2:38 PM EST documented as of this encounter Care Teams Convention Worker Relationship Specialty Start Date End Date Ernie Noriega MD 230 [place] [address] PCP - General Internal Medicine 08/25/19 [facility] 03/31/25 05/25/25 [facility] 05/25/25 06/13/25 [facility] 05/25/25 06/19/25 [place] [facility] 06/07/25 documented as of this encounter
--- OUTSIDE RECORDS SUMMARY | 2025-10-10 11:51 | XMS_ITS | Encounter Summary ---
Author Organization [employer] Address 75 [facility] 7t [place] [address] Care Team Providers Care Campus Director Name Role Phone Ernie Noriega MD Primary Care Provide r Encounter Details Date Type Department Care Team ([facility] Contact Info) Description 04/13/2023 Orders Only [facility] MEDICINE 230 [place] [address] Sugar Mitchell MD 230 [place] [address] Neuropathic pain of right lower extremity (Primary [...] Upcoming Encounters Date Type Department Care Team ([facility] Contact Info) Description 11/27/2025 9:30 AM EST Telemedicine [facility] CHC MED & PEDS 505 [place] [address] 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, MARQUISE 505 [place] [address] documented as of this encounter Procedures Procedure Name Priority Date/Time Associated Diagnosis Comments BASIC METABOLIC PANEL Routine 05/13/2023 8:40 AM EDT Neuropathic pain of right lower extremity documented in this encounter Results * (ABNORMAL) Basic Metabolic Panel (05/13/2023 8:40 AM EDT) Sodium 141 135 - 145 mmol/L [facility] Potassium 3.5 3.3 - 5.1 mmol/L [facility] Chloride 103 96 - 108 mmol/L [facility] Carbon Dioxide 23 22 - 29 mmol/L [facility] Anion Gap 19 12 - 20 [facility] Urea Nitrogen (BUN) 15 9 - 16 mg/dL [facility] Creatinine, Serum 0.78 0.5 - 1.4 mg/dL [facility] Estimated Glomerular Filt Rate >60 [facility] Comment:NOTE: For -Am erican individuals, multiply the result by 1.210.Chronic Kidney Disease: Estimated GFR < 60 mL/min/1.19c3Xordmm Kidney Disease: Estimated GFR < 15 mL/min/1.73m2 Glucose 151(H) 60 - 115 mg/dL [facility] Calcium 9.3 8.4 - 10.2 mg/dL [facility] Blood Venous blood specimen / Unknown 05/13/2023 8:40 AM EDT 05/13/2023 11:14 AM EDT us Sugra Mitchell MD LAB BLOOD ORDERABLES Final Resul t [facility] [address] [place] [address] [phone] documented in this encounter Visit Diagnoses Diagnosis Neuropathic pain of right lower extremity- Primary documented in this encounter Additional Health Concerns Assessment Noted Time PHQ-9 Depression Total Score: 0 12/02/19 23 2:38 PM EST documented as of this encounter Care Teams Campus Director Relationship Specialty Start Date End Date Ernie Noriega MD [address] [place] [address] PCP - General Internal Medicine 08/25/19 [facility] 03/31/25 05/25/25 [facility] 05/25/25 06/13/25 [facility] 05/25/25 06/19/25 [facility] 06/07/25 documented as of this encounter
--- OUTSIDE RECORDS SUMMARY | 2025-10-10 11:51 | XMS_ITS | Encounter Summary ---
Author Organization [employer] Address 75 [facility] 7t [place] [address] Care Team Providers Care Construction Director Name Role Phone Ernie Noriega MD Primary Care Provide r Reason for Visit * Reason Onset Date Comments Med Refill 10/12/2024 Encounter Details Date Type Department Care Team (Late st Contact Info) Description 10/12/[address] [facility] MEDICINE 230 [place] [address] Ernie Noriega MD 230 [place] [address] Primary osteoarthritis of knee, unspecified laterality Social [...] Info) Description 11/27/2025 9:[address] [facility] MED & PEDS [address] [place] [address] 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, MARQUISE 505 [place] [address] documented as of this encounter Visit Diagnoses Diagnosis Primary osteoarthritis of knee, unspecified laterality documented in this encounter Additional Health Concerns Assessment Noted Time PHQ-9 Depression Total Score: 2 01/21/20 24 1:25 PM EDT documented as of this encounter Care Teams Construction Director Relationship Specialty Start Date End Date Ernie Noriega MD [address] [place] [address] PCP - General Internal Medicine 08/25/19 [place] [facility] 03/31/25 05/25/25 [facility] 05/25/25 06/13/25 [facility] 05/25/25 06/19/25 [facility] 06/07/25 documented as of this encounter
--- OUTSIDE RECORDS SUMMARY | 2025-10-10 11:51 | XMS_ITS | Encounter Summary ---
Author Organization [employer] Address 75 [facility] 7t [place] [address] Care Team Providers Care Rigging And Controls Aircraft Mechanic Name Role Phone Ernie Noriega MD Primary Care Provide r Reason for Visit * Reason Onset Date Comments Med Refill 09/28/2024 Encounter Details Date Type Department Care Team (Late st Contact Info) Description 09/28/2024 Refill [facility] MEDICINE 230 [place] [address] Ernie Noriega MD 230 [place] [address] Chronic midline low back pain without sciatica; [...] Description 11/27/2025 9:30 AM EST Telemedicine [facility] MED & PEDS 505 [place] [address] 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 RN 505 [place] [address] documented as of this encounter Visit Diagnoses Diagnosis Chronic midline low back pain without sciatica Cervical radiculopathy Brachial neuritis or radiculitis nos documented in this encounter Additional Health Concerns Assessment Noted Time PHQ-9 Depression Total Score: 2 01/21/20 24 1:25 PM EDT documented as of this encounter Care Teams Rigging And Controls Aircraft Mechanic Relationship Specialty Start Date End Date Ernie Noriega MD [address] [place] [address] PCP - General Internal Medicine 08/25/19 [place] [facility] 03/31/25 05/25/25 [facility] 05/25/25 06/13/25 [facility] 05/25/25 06/19/25 [place] [facility] 06/07/25 documented as of this encounter
--- OUTSIDE RECORDS SUMMARY | 2025-10-10 11:51 | XMS_ITS | Encounter Summary ---
Author Organization [employer] Address 75 [facility] 7t [place] [address] Care Team Providers Care Clearing Distribution Clerk Name Role Phone Ernie Noriega MD Primary Care Provide r Encounter Details Date Type Department Care Team (Late st Contact Info) Description 03/09/2025 Orders Only [facility] 230 [place], [place] [phone] ProviderNeville MD Social History Tobacco Use Types [...] Upcoming Encounters Date Type Department Care Team ([facility] st Contact Info) Description 11/27/2025 9:30 AM EST Telemedicine [facility] MED & PEDS 505 [place] [address] 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 RN 505 [place] [address] documented as of this encounter Procedures Procedure [...] documented as of this encounter Care Teams Clearing Distribution Clerk Relationship Specialty Start Date End Date Ernie Noriega MD [address] [place] [address] PCP - General Internal Medicine 08/25/19 [facility] 03/31/25 05/25/25 [facility] 05/25/25 06/13/25 [facility] 05/25/25 06/19/25 [facility] 06/07/25 documented as of this encounter
--- OUTSIDE RECORDS SUMMARY | 2025-10-10 11:51 | XMS_ITS | Encounter Summary ---
Author Organization [employer] Address 75 [facility] 7t [place] [address] Care Team Providers Care Line Producer Name Role Phone Ernie Noriega MD Primary Care Provide r Reason for Visit * Reason Onset Date Comments Med Refill 06/26/2025 Encounter Details Date Type Department Care Team ([facility] st Contact Info) Description 06/26/2025 Refill [facility] MEDICINE 230 [place] [address] Ernie Noriega MD 230 [place] [address] Seasonal allergies Social History Tobacco Use Types [...] Upcoming Encounters Date Type Department Care Team ([facility] st Contact Info) Description 11/27/2025 9:30 AM EST Telemedicine [facility] MED & PEDS 505 [place] [address] 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, RN 505 [place] [address] documented as of this encounter Visit Diagnoses Diagnosis Seasonal allergies Allergic rhinitis, cause unspecified documented in this encounter Additional Health Concerns Assessment Noted Time PHQ-9 Depression Total Score: 4 01/13/20 25 2:57 PM EDT documented as of this encounter Care Teams Line Producer Relationship Specialty Start Date End Date Ernie Noriega MD [address] [place] [address] PCP - General Internal Medicine 08/25/19 [facility] 06/07/25 documented as of this encounter
--- OUTSIDE RECORDS SUMMARY | 2025-10-10 11:51 | XMS_ITS | Patient Health Record ---
Author Organization [facility] Address [address] [place] [address] Care Team Providers Care Inspector Welded Parts Name Role Phone Milton Ro MD, Ernei Primary Care Provide r Unavailable Rodrick Millan Unavailable [phone] Allergies No Known Allergies Reason For Referral No Information Medications Medication SIG (Take, Route, Frequency, Duration) Notes Start Date End Date Status diphenhydrAMINE HCl 25 MG Capsule 1 capsule at bedtime as needed Orally Once a day; Duration: 30 day(s) Active Escitalopram Oxalate 5 MG Tablet 1 tablet Orally Once a day; Duration: 30 day(s) Active Albuterol Sulfate HFA 108 (90 Base) MCG/ACT Aerosol Solution 1 puff as needed Inhalation every 4 hrs Active Gloyhbmzpp-Sxcwade-Wbmcdmxf 50-325-40 MG Capsule 1 capsule as needed Orally every 4 hrs Active Montelukast Sodium 10 MG Tablet 1 tablet Orally Once a day; Duration: 30 day(s) Active Nabumetone 750 MG Tablet as directed Orally Active Diclofenac Potassium 50 MG Tablet 1 tablet with food or milk as needed Orally Twice a day Not-Taking/ND N hydroCHLOROthiazide 25 MG Tablet 1 tablet in the morning Orally Once a day; Duration: 30 day(s) Active Lidocaine 5 % Patch 1 patch remove after 12 hours Externally Once a day Active Fluticasone Furoate 50 MCG/ACT Aerosol Powder Breath Activated 1 puff Inhalation Once a day Active Dulcolax (colon prep) 5 MG Tablet Delayed Release take at 3:00 p.m and 7:00p.m. Orally two tablets twice a day for one day; Duration: 1 day 08/12/2023 Active Gabapentin 600 MG Tablet 1 tablet Orally Once a day; Duration: 30 day(s) Active Fluticasone Propionate (Inhal) 250 MCG/ACT Aerosol Powder Breath Activated 1 puff Inhalation Twice a day Active Triamcinolone Acetonide 0.1% Active Zolpidem Tartrate 10 MG Tablet 1 tablet at bedtime as needed Orally Once a day Active buPROPion HCl 100mg Active Claritin 10mg Active Omeprazole 20 MG Capsule Delayed Release 1 capsule 30 minutes before morning meal Orally Once a day; Duration: 30 day(s) Active Zolpidem & Diet Manage Prod 10mg Active Tamsulosin HCl 0.4 MG Capsule 1 capsule Orally Once a day; Duration: 30 day(s) Active clonazePAM 0.5mg Act nayla Acetaminophen 500 MG Capsule 1 capsule as needed Orally every 6 hrs Active Albuterol Sulfate (2.5 MG/3ML) 0.083% Nebulization Solution 3 mL as needed Inhalation every 6 hrs Active ProAir HFA 90mcg Act nayla Ibuprofen 800mg Not- Taking/PRN Cyclobenzaprine HCl 10mg Active traMADol HCl 50mg Ac tive MiraLax (colon prep) 17 GM/SCOOP Powder 1 238Gm bottle mixed with Gatorade or Crystal Light Orally begin at 5:00 p.m. the day before the procedure; Duration: 1 day 08/12/2023 Active Social History Social History Additional Details Category Social Info Options Details Miscellaneous: Marital status: Occupation: unemployed Problems Problem Type SNOMED Code ICD Code Onset Dates Problem Status W/U Status Risk Notes Problem Colon cancer screening (471607355) Colon cancer screening (Z12.11) Active confirmed Problem Diverticular disease of colon (110957064) Diverticulosis of large intestine without perforation or abscess without bleeding (K57.30) Active confirmed Problem Preprocedural examination (202159111212180) Preprocedural examination (Z01.818) Active confirmed Problem terminal carman current use of non-steroidal anti-inflammatory drug (877834565435806) Encounter for long-term (current) use of NSAIDs (Z79.1) Active confirmed Plan Of Treatment Pending Test Test Name Order Date Pathology 03/18/2024 Future Test Test Name Order Date COLONOSCOPY 03/24/2013 COLONOSCOPY 08/11/2023 Insurance Providers Payer Name Payer Address Payer Phone Subscriber Number Group Number Insured Name Patient Relationship to Insured Coverage Start Date Coverage End Date [facility] [address] [place] [id number] ISHMAEL HINOJOSA Self - patient is the insured Medical (General) History Medical History History ICD Code Denies CO,DM,CVA,renal disease Asthma Depression/anxiety Hypertension Negative screening colonoscopy in 06/2013 Arthritis/Body aches Surgical History Surgery Date(Month/Year) Back surgery for disc disease Bilateral carpal tunnel Left shoulder C-spine disc surgery Bilateral knee replacements Might be having a left shoulder replacem ent as of the 07/2023 OV
--- OUTSIDE RECORDS SUMMARY | 2025-10-10 11:51 | XMS_ITS | Encounter Summary ---
Author Organization [employer] Address [address] [facility] 7t [place] [address] Care Team Providers Care Tobacco Shaker Name Role Phone Ernie Noriega MD Primary Care Provide r Reason for Visit * Reason Onset Date Comments Med Refill 08/15/2025 Encounter Details Date Type Department Care Team ([facility] st Contact Info) Description 08/15/2025 Refill [facility] MEDICINE [address] [place] [address] Ernie Noriega MD [address] [place] [address] Seasonal allergies Social History Tobacco Use Types [...] Upcoming Encounters Date Type Department Care Team ([facility] st Contact Info) Description 11/27/2025 9:30 AM EST Telemedicine [facility] MED & PEDS [address] [place] [address] 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, RN [address] [place] [address] documented as of this encounter Visit Diagnoses Diagnosis Seasonal allergies Allergic rhinitis, cause unspecified documented in this encounter Additional Health Concerns Assessment Noted Time PHQ-9 Depression Total Score: 4 01/13/20 25 2:57 PM EDT documented as of this encounter Care Teams Tobacco Shaker Relationship Specialty Start Date End Date Ernie Noriega MD [address] [place] [id number] PCP - General Internal Medicine 08/25/19 Elida LENZ 06/07/25 documented as of this encounter
--- OUTSIDE RECORDS SUMMARY | 2025-10-10 11:51 | XMS_ITS | Encounter Summary ---
Author Organization [employer] Address [address] [facility] 7t [place] [address] Care Team Providers Care Waistline Joiner Lockstitch Name Role Phone Ernie Noriega MD Primary Care Provide r Reason for Visit * Reason Onset Date Comments Med Refill 03/22/2025 Encounter Details Date Type Department Care Team (Late st Contact Info) Description 03/22/2025 Refill [facility] MEDICINE [address] [place] [address] Ernie Noriega MD [address] [place] [address] Gastritis without bleeding, unspecified chronicity, unspecified gastritis [...] [facility] [address] [place] [address] 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 RN [address] [place] [address] documented as of this encounter Visit Diagnoses Diagnosis Gastritis without bleeding, unspecified chronicity, unspecified gastritis type Ischial pain, right Pain Generalized pain Chronic midline low back pain without sciatica documented in this encounter Additional Health Concerns Assessment Noted Time PHQ-9 Depression Total Score: 4 01/13/20 2:57 PM EDT documented as of this encounter Care Teams Waistline Joiner Lockstitch Relationship Specialty Start Date End Date Ernie Noriega MD [address] [place] [id number] PCP - General Internal Medicine 08/25/19 [facility] 03/31/25 05/25/25 [facility] 05/25/25 06/13/25 [facility] 05/25/25 06/19/25 Elida LENZ 06/07/25 documented as of this encounter
--- OUTSIDE RECORDS SUMMARY | 2025-10-10 11:51 | XMS_ITS | Encounter Summary ---
Author Organization [employer] Address [address] [facility] 7[address] [place] [address] Care Team Providers Care Market Research Interviewer Name Role Phone Ernie Noriega MD Primary Care Provide r Reason for Visit * Reason Onset Date Comments Med Refill 08/15/2025 Encounter Details Date Type Department Care Team ([facility] st Contact Info) Description 08/15/2025 Refill [facility] MEDICINE [address] [place] [address] Ernie Noriega MD [address] [place] [address] Pain Social History Tobacco Use Types Packs/Day [...] Info) Description 11/27/2025 9:30 AM EST Telemedicine [facility] MED & PEDS [address] [place] [address] 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, RN [address] [place] [address] documented as of this encounter Visit Diagnoses Diagnosis Pain Generalized pain documented in this encounter Additional Health Concerns Assessment Noted Time PHQ-9 Depression Total Score: 4 01/13/20 25 2:57 PM EDT documented as of this encounter Care Teams Market Research Interviewer Relationship Specialty Start Date End Date Ernie Noriega MD [address] [place] [phone] PCP - General Internal Medicine 08/25/19 Elida LENZ 06/07/25 documented as of this encounter
--- OUTSIDE RECORDS SUMMARY | 2025-10-10 11:51 | XMS_ITS | Encounter Summary ---
Author Organization [employer] Address [address] [facility] 7t [place] [address] Care Team Providers Care Laundromat Worker Name Role Phone Ernie Noriega MD Primary Care Provide r Reason for Visit * Reason Onset Date Comments Med Refill 09/04/2025 Encounter Details Date Type Department Care Team (Late st Contact Info) Description 09/04/2025 Refill [facility] MEDICINE [address] [place] [address] Ernie Noriega MD [address] [place] [address] Chronic midline low back pain without sciatica; Seasonal allergies Social History Tobacco Use Types [...] 11/27/2025 9:30 AM EST Telemedicine [facility] MED & PEDS [address] [place] [address] 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, RN [address] [place] [address] documented as of this encounter Visit Diagnoses Diagnosis Chronic midline low back pain without sciatica Seasonal allergies Allergic rhinitis, cause unspecified documented in this encounter Additional Health Concerns Assessment Noted Time PHQ-9 Depression Total Score: 4 01/13/20 25 2:57 PM EDT documented as of this encounter Care Teams Laundromat Worker Relationship Specialty Start Date End Date Ernie Noriega MD [address] [place] [address] PCP - General Internal Medicine 08/25/19 Elida LENZ 06/07/25 documented as of this encounter
--- OUTSIDE RECORDS SUMMARY | 2025-10-10 11:51 | XMS_ITS | Encounter Summary ---
Author Organization [employer] Address [address] [facility] 7t [place] [address] Care Team Providers Care Recreational Vehicle Repairer Name Role Phone Ernie Noriega MD Primary Care Provide r Reason for Visit * Reason Onset Date Comments Med Refill 09/28/2024 Encounter Details Date Type Department Care Team (Late st Contact Info) Description 09/28/2024 Refill [facility] MEDICINE [address] [place] [address] Ernie Noriega MD [address] [place] [address] Primary osteoarthritis of knee, unspecified laterality Social [...] Upcoming Encounters Date Type Department Care Team ([facility] st Contact Info) Description 11/27/2025 9:30 AM EST Telemedicine [facility] MED & PEDS [address] [place] [address] 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, RN [address] [place] [address] documented as of this encounter Visit Diagnoses Diagnosis Primary osteoarthritis of knee, unspecified laterality documented in this encounter Additional Health Concerns Assessment Noted Time PHQ-9 Depression Total Score: 2 01/21/20 24 1:25 PM EDT documented as of this encounter Care Teams Recreational Vehicle Repairer Relationship Specialty Start Date End Date Ernie Noriega MD [address] [place] [address] PCP - General Internal Medicine 08/25/19 [facility] 03/31/25 05/25/25 [facility] 05/25/25 06/13/25 [facility] 05/25/25 06/19/25 [facility] 06/07/25 documented as of this encounter
--- OUTSIDE RECORDS SUMMARY | 2025-10-10 11:52 | XMS_ITS | Encounter Summary ---
Author Organization [employer] Address [address] [facility] 7t [place] [address] Care Team Providers Care Street Contractor Name Role Phone Ernie Noriega MD Primary Care Provide r Reason for Visit * Reason Onset Date Comments Med Refill 11/17/2024 Encounter Details Date Type Department Care Team ([facility] st Contact Info) Description 11/17/2024 Refill [facility] MEDICINE [address] [place] [address] Ernie Noriega MD [address] [place] [address] Seasonal allergies Social History Tobacco Use Types [...] Upcoming Encounters Date Type Department Care Team ([facility] st Contact Info) Description 11/27/2025 9:30 AM EST Telemedicine [facility] MED & PEDS [address] [place] [address] 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, RN [address] [place] [address] documented as of this encounter Visit Diagnoses Diagnosis Seasonal allergies Allergic rhinitis, cause unspecified documented in this encounter Additional Health Concerns Assessment Noted Time PHQ-9 Depression Total Score: 2 01/21/20 24 1:25 PM EDT documented as of this encounter Care Teams Street Contractor Relationship Specialty Start Date End Date Ernie Noriega MD [address] [place] [phone] PCP - General Internal Medicine 08/25/19 [facility] 03/31/25 05/25/25 [facility] 05/25/25 06/13/25 [facility] 05/25/25 06/19/25 [facility] 06/07/25 documented as of this encounter
--- OUTSIDE RECORDS SUMMARY | 2025-10-10 11:52 | XMS_ITS | Clinical Summary ---
Author Organization [facility] Address [address] [place] [address] Phone Care Team Providers Care Cotton Expert Name Role Phone Ernie Merritt MD Primary [...] AM EST Sexual Orientation Not on file Last Filed Vital Signs Vital Sign Reading [...] Last Done Comments Breast Cancer Screening 1965 Drug Screen 1965 Non-Opioid Controlled Substance Agreement 1963 Cervical Cancer Screening: Pap Smear 1984 [...] Associated Diagnosis Comments BASIC METABOLIC PANEL Routine 05/23/2025 8:40 AM EDT Fusion of spine, lumbar region from Last 3 Months or Most Recently Relevant to Health Maintenance Results * (ABNORMAL) Basic metabolic panel (05/23/2025 8:40 AM EDT) Sodium 135 133 - 145 mmol/L LAB CHEMISTRY METHOD 05/23/2025 12:33 PM EDT [facility] Potassium 4.0 3.5 - 5.5 [...] 73m2 LAB CHEMISTRY METHOD 05/23/2025 12:33 PM [facility] Comment:Calculation based on the [...] Hermosillo MD LAB BLOOD ORDERABLES Final Result [facility] [address] [place] [address], [place] [phone] from Last 3 Months or Most Recently Relevant to Health Maintenance Insurance MAMIWagner MARIEMARIA T HARRIS [id number] MEDICAID - [place] Advance Directives * Full [...] currently active code status orders. Care Teams Cotton Expert Relationship Specialty Start Date End Date Ernie Merritt MD [address] [place] [address] [place] [phone] PCP - General Internal Medicine 05/20/21
--- OUTSIDE RECORDS SUMMARY | 2025-10-10 11:52 | XMS_ITS | Clinical Summary ---
Author Organization [facility] Address [address] [place] [address] Care Team Providers Care Social Science Research Assistant Name Role Phone Ernie Merritt Primary [...] propionate (FLONASE) 50 mcg/actuation nasal spray SMARTSI [place](s) Both Nares Twice Daily 023 Active tamsulosin [...] by mouth nightly as needed for sleep. 023 Active gabapentin (NEURONTIN) 600 mg tablet [...] tablet Active methocarbamoL (ROBAXIN) 500 mg tablet TAKE 1 TABLET (500 MG TOTAL) BY MOUTH FOUR TIMES A DAY NEEDED FOR MUSCLE SPASMS (PAIN) 60 tablet [address] (CYMBALTA) 30 mg capsule Take 1 capsule (30 mg total) by mouth once a day. 30 capsule 2 Active methocarbamoL (ROBAXIN) 500 mg tablet Take 1 tablet (500 mg total) by mouth 4 times a day. 120 tablet [address] (CYMBALTA) 30 mg capsule Take 1 capsule (30 mg total) by mouth once a day. 30 capsule 025 2025 Active methocarbamoL (ROBAXIN) 500 mg tablet Take 1 tablet (500 mg total) by mouth 4 times a day as needed for muscle spasms (Pain). 60 tablet 1 025 2024 Discontinued Active Problems Problem Noted [...] Encounters Date Type Department Care Team Description 10/10/2025 yaM Labst Message [facility] Financial Clearance Department [address] [place] [address] [phone] Mychart, Generic Provider No Auth required 10/10/2025 Telephone [facility] [address] [place] [address] [phone] Fang Altamirano NP 10/03/2025 Refill [facility] [address] [place] [address] 43723 Mady Romo PA 10/02/2025 Orders Only [facility] [address] [place] [address] 32174 Ana Lilia Portillo PA 10/02/2025 Telephone [facility] [address] [place] [address] [phone] Christopher Peres MD 09/28/2025 Orders Only [facility] [address] [place] [address] 95380 Mady Romo PA 09/28/2025 Refill [facility] Building [facility] [address] [place] [address] Heidi Knott PA 09/28/2025 myChart Message [facility] Financial Clearance Department [address] [place] [address] [phone] Mychart, Generic Provider No Auth Required 09/28/2025 Telephone [facility] [address] [place] [address] [phone] Leela RicoMARIA T 09/25/2025 Orders Only [facility] [address] [place] [address] [phone] Yasmeen Powell NP 09/25/2025 Telephone [facility] [address] [place] [address] [phone] Telephone Intake, Staff 09/25/2025 Refill [facility] [address] [place] [address] 10100 Heidi Knott PA 09/23/2025 Refill [facility] [address] [place] [address] 50769 Heidi Knott PA 09/22/2025 Refill [facility] [address] [place] [address] [phone] Heidi Knott PA 09/11/2025 Documentation [facility] [address] [place] [address] [phone] Ana Lilia Portillo PA 09/11/2025 Documentation [facility] [address] [place] [address] [phone] Ana Lilia Portillo PA 09/11/2025 Orders Only [facility] [address] [place] [address] 36481 Ana Lilia Portillo PA Radiculopathy, unspecified spinal region (Primary Dx) 09/06/2025 Telephone [facility] [address] [place] [address] [phone] Christopher Peres MD 08/24/2025 Orders Only [facility] [address] [place] [address] 63829 Heidi Knott PA 08/23/2025 Telephone [facility] [address] [place] [address] 37691 Christopher Peres MD 08/21/2025 Refill [facility] [address] [place] [address] 28071 Christopher Peres MD 08/21/2025 Refill [facility] [address] [place] [address] 05633 Fang Altamirano NP 08/19/2025 Refill [facility] [address] [place] [address] 35191 Christopher Peres MD 08/19/2025 Refill [facility] [address] [place] [address] 12448 Fang Altamirano NP 08/16/2025 1:15 PM EST Follow-Up [facility] [address] [place] [address] 62919 Christopher Peres MD S/P fusion of thoracic spine (Primary Dx) 08/16/2025 Orders Only [facility] [address] [place] [address] [phone] Fang Altamirano NP 08/08/2025 Orders Only [facility] [address] [place] [address] 10911 Logan Herrera PA 08/08/2025 Refill [facility] [address] [place] [address] 71987 Fang Altamirano NP 08/08/2025 Telephone [facility] [address] [place] [address] [phone] Telephone Intake, Staff 08/01/2025 myChart Message [facility] [address] [place] [address] [phone] Mychart, Generic Provider FMLA forms requested 08/01/2025 Telephone [facility] [address] [address] Fang Altamirano NP 07/25/2025 Telephone [facility] [address] [place] [address] 60745 Christopher Peres MD 07/13/2025 Telephone [facility] [address] [place] [address] 69252 Heidi Knott PA 07/11/2025 Orders Only [facility] [address] [place] [address] 60388 Heidi Knott PA Other idiopathic scoliosis, thoracolumbar region (Primary Dx); Chronic bilateral low back pain with bilateral sciatica; S/P fusion of thoracic spine from Last 3 Months Family History Medical History Relation Name Comments Coronary artery disease Maternal Half-brother S/P cabg Liver cancer Maternal Half-brother Diabetes Maternal Half-sister Myocardial Infarction Mother Heart failure Mother's Brother PPM Relation Name Status Comments Father Maternal Half-brother Maternal Half-sister Alive Mother Mother's Brother Alive Social History Tobacco Use Types Packs/Day Years Used Date Smoking Tobacco: Former Cigarettes 0 Q uit: 2002 Smokeless Tobacco: Never Tobacco [...] Sign Reading Time Taken Comments Blood Pressure 126/76 08/16/2025 1:06 PM EST Pulse 71 08/16/2025 1:06 PM EST Temperature 36.9 C (98.4 F) 07/05/2025 11:46 AM EDT Respiratory Rate 18 08/16/2025 1:06 PM EST Oxygen Saturation 97% 08/16/2025 1:0 6 PM EST Inhaled Oxygen Concentration - - Weight 61.2 kg (135 lb) 05/01/2025 11:1 3 AM EDT Height 160 cm (5' 3 ) 05/01/2025 11:13 AM EDT unable to stand Body Mass Index 23.91 05/01/2025 11:13 AM EDT Plan of Treatment Upcoming Encounters Date Type Department Care Team (Late st Contact Info) Description 02/14/2026 1:15 PM EDT Follow-Up [facility] Building Neurosurgery Clinic [address] [place] [address] [phone] Christopher Peres MD [address] [place] [address] [phone] Health Maintenance Due Date Last Done Comments Cervical Cancer Screening 1963 Cologuard 1965 HIV Screening 1965 HPV and Pap Smear 1963 Pap Smear 1963 Sigmoidoscopy 1963 RSV Vaccine (60+ years old and patients) (1 - Risk 50-74 years 1-dose series) 2013 Alcohol/Substance Use Screening 10/12/2024 Depression Screening and Follow-Up 10/12/2024 Social Drivers of Health Annual Screening 10/12/2024 Mammogram 12/23/2024 12/23/2022, 09/12, 09/10/2018 Influenza Vaccine (#1) 2025 4, 07/21/2023, 07/16/2022, Additional history exists COVID-19 Vaccine ( season) 2025 07/16/2022, 08/28/2021, 02/22/2021, Additional history exists Basic Metabolic Panel 06/09/2026 [...] this topic Medical Devices Implanted Type Area Biscuit Packer Device Identifier Shelf Expiration Date Model / Serial / Lot Ruas Head And Ss For 5.5/6.0 Russell 2pk Implanted:Qty: 2 on 05/12/2025 by Christopher Peres MD at [facility] Implant N/A: Spine Lumbar Medtronic 04/28/2029 [id number] / / [id number] Ruas Head And Ss For 5.5/6.0 Russell Implanted:Qty: 2 on 05/12/2025 by Christopher Peres MD at [facility] Implant N/A: Spine Lumbar Medtronic 04/28/2029 [id number] / / [id number] Kit Bone Graft Large Infuse - [id number] Implanted:Qty: 1 on 05/12/2025 by Christopher Peres MD at [facility] Implant N/A: Spine Lumbar Medtronic 04/11/2026 [id number] / / [id number] Pyramesh Round 13mm X 70mm - [id number] Implanted:Qty: 1 on 05/12/2025 by Christopher Peres MD at [facility] Implant N/A: Spine Lumbar Medtronic [id number] / / 5.5-6.0 Biased Mas & Setscrew Implanted:Qty: 1 on 05/12/2025 by Christopher Peres MD at [facility] Implant N/A: Spine Lumbar Medtronic 07/14/2032 [id number] / / [id number] Connector Spinal Tl 5/6-5/6 Cd Horizon - [id number] Implanted:Qty: 3 on 05/12/2025 by Christopher Peres MD at [facility] Implant N/A: Spine Lumbar Medtronic 05/29/2031 [id number] / / [id number] Connector Spinal Tl 5/6-5/6 Cd Horizon - [id number] Implanted:Qty: 1 on 05/12/2025 by Christopher Peres MD at [facility] Implant N/A: Spine Lumbar Medtronic 11/21/2032 [id number] / / [id number] Screw Spinal Shank 6.0xmq29in Ats Cd Horizon Modulex - [id number] Implanted:Qty: 4 on 05/12/2025 by Christopher Peres MD at [facility] Implant N/A: Spine Lumbar Medtronic [id number] / / Screw Spinal Shank Thread Ats 6.1xxu21fp Cd Horizon Modulex - [id number] Implanted:Qty: 4 on 05/12/2025 by Christopher Peres MD at [facility] Implant N/A: Spine Lumbar Medtronic [id number] / / Screw Spinal Shank Thread Ats 7.2nhj79wq Cd Horizon Modulex - [id number] Implanted:Qty: 1 on 05/12/2025 by Christopher Peres MD at [facility] Implant N/A: Spine Lumbar Medtronic [id number] / / Russell Straight Long 5.8bfh889ky Solera - [id number] Implanted:Qty: 2 on 05/12/2025 by Christopher Peres MD at [facility] Implant N/A: Spine Lumbar Medtronic [id number] / / Patch Fibrin Sealant Pooled Human Plasma And Equine Collagen 4.8cmx4.8cm Tachosil - [id number] Implanted:Qty: 1 on 05/12/2025 by Christopher Peres MD at [facility] Implant N/A: Spine Lumbar [employer] 08/10/2027 [id number] / / [id number] Screw Spinal Shank Thread Ats 7.5mm X 45mm Cd Horizon Modulex - [id number] Implanted:Qty: 3 on 05/12/2025 by Christopher Peres MD at [facility] Screw N/A: Spine Lumbar Medtronic [id number] / / Screw Spinal Shank Thread Ats 7.2ltp57nu Cd Horizon Modulex - [id number] Implanted:Qty: 4 on 05/12/2025 by Christopher Peres MD at [facility] Screw N/A: Spine Lumbar Medtronic [id number] / / Modulex 10.5 X 100 Screw Implanted:Qty: 2 on 05/12/2025 by Christopher Peres MD at [facility] Screw N/A: Spine Lumbar Medtronic [id number] / / Screw Set Breakoff 5.5mm Titanium Cd Horizon - [id number] Implanted:Qty: 8 on 05/12/2025 by Christopher Peres MD at [facility] Screw N/A: Spine Lumbar Medtronic [id number] / / Graft Bone Demineralized Bone Matrix Fiber Inject 9cc [place] - [id number] - [id number] Implanted:Qty: 1 on 05/12/2025 by Christopher Peres MD at [facility] Tissue N/A: Spine Lumbar Medtronic 05/09/2026 [id number] / [id number] / Rmas Head And Ss For 5.5/6.0 Russell Implanted:Qty: 4 on 05/12/2025 by Christopher Peres MD at [facility] N/A: Spine Lumbar Medtronic 03/04/2029 [id number] / / [id number] Procedures * Due to [place] [employer] law, this organization might not be sharing negative HIV tests. Procedure Name Priority Date/Time Associated Diagnosis Comments XR SCOLIOSIS 2-3 VIEWS Routine 08/16/2025 2:24 PM EST S/P fusion of thoracic spine BASIC METABOLIC PANEL Routine 05/21/2025 8:10 AM EDT from Last 3 Months or Most Recently Relevant to Health Maintenance Results * Due to [place] state law, this organization might not be sharing negative HIV tests. * XR Scoliosis 2-3 Views (08/16/2025 2:24 PM EST) Anatomical Region Laterality Modality Spine Computed Radiogr aphy 08/21/2025 5:55 PM EST Impressions 08/21/2025 6:36 PM EST FINDINGS/IMPRESSION: No significant scoliosis of the thoracolumbar spine. Thoracic kyphosis measuring 35 degrees, previously 27 degrees and lumbar lordosis measuring 42 degrees, previously measuring 42 degrees. Extensive posterior instrumented fusion from lower thoracic to the S1 and across sacroiliac joints, unchanged alignment. Multilevel degenerative disc and facet is in the cervical spine. Sacrum partly obscured. Large egnps-ut-klsa imaging technique limits assessment of fine osseous and soft tissue detail. Images are provided for biometric measurement. If this radiology report contains a blank impression section, it is an incomplete radiology report. Please contact the interpreting radiologist or applicable radiology division as soon as possible to obtain the completed interpretation. Workstation ID: [id number] Narrative 08/21/2025 6:36 PM EST COMPARISON: 07/05/2025 Resulting Agency Comment [id number] Procedure Note Parth Villareal MD - 08/21/2025 COMPARISON: 07/05/2025 IMPRESSION: FINDINGS/IMPRESSION: No significant scoliosis of the thoracolumbar spine. Thoracic kyphosismeasuring 35 degrees, previously 27 degrees and lumbar lordosis [id number] degrees, previously measuring 42 degrees. Extensive posteriorinstrumented fusion from lower thoracic to the S1 and across sacroiliacjoints, unchanged alignment. Multilevel degenerative disc and facet is inthe cervical spine. Sacrum partly obscured. Large pidww-oi-xmse imaging technique limits assessment of fine osseousand soft tissue detail. Images are provided for biometric measurement. If this radiology report contains a blank impression section, it is anincomplete radiology report. Please contact the interpreting radiologistor applicable radiology division as soon as possible to obtain thecompleted interpretation. Workstation ID: [id number] us Christopher Peres MD IMG XR PROCEDURES Final Res ult * (ABNORMAL) Basic metabolic panel (05/21/2025 8:10 AM EDT) NA 139 135 - 145 mmol/L 05/21/2025 8:59 AM EDT [facility] K 3.6 3.5 - 5.3 mmol/L 05/21/2025 8:59 AM EDT [facility] Cl 101 98 - 107 mmol/L 05/21/2025 8:59 AM EDT [facility] CO2 26 22 - 32 mmol/L 05/21/2025 8:59 AM EDT [facility] BUN 14 7 - 23 mg/dL 05/21/2025 8:59 AM EDT [facility] Creatinine 0.47(L) 0.50 - 1.20 mg/dL 05/21/2025 8:59 AM EDT [facility] Glucose 119(H) 65 - 99 mg/dL 05/21/2025 8:59 AM EDT [facility] Calcium 8.7 8.6 - 10.5 mg/dL 05/21/2025 8:59 AM EDT [facility] Anion Gap 12 5 - 15 05/21/2025 8:59 AM EDT [facility] eGFR >90 >=60 mL/min/1 .73m2 05/21/2025 8:59 AM EDT [facility] Comment:The estimated glomer ular filtration rate (eGFR) is calculated using a new formula developed by the NKF-ASN task force to eliminate race-based correction factors. The new formula uses serum/plasma creatinine, age, and gender to determine eGFR. A value below 60mls/min might indicate kidney disease and will be flagged. For additional information, see Lyn joyce al, Am J Kidney Dis. 2021;79(2):268- 288, A Unifying Approach for GFR estimation: Recommendations of the NKF-ASN Task Force on Reassessing the Inclusion of Race in Diagnosing Kidney Disease . Blood Structure of peripheral vein / Unknown Venipuncture / Unknown 05/21/2025 8:10 AM EDT 05/21/2025 8:27 AM EDT us Le[facility] BLOOD ORDERABLES Final Resu lt [facility] [address] [place] [address], from Last 3 Months or Most Recently Relevant to Health Maintenance Insurance [facility] Advance Directives Documents on File Type Date Recorded Patient Liner Installer Expl anation Health Care Proxy 05/12/2025 6:38 AM * Full Code (Latest Code Status on File) Date Activated Date Inactivated Comments 05/12/2025 7:40 PM 05/22/2025 4:48 PM Care Teams Social Science Research Assistant Relationship Specialty Start Date End Date Ernie Merritt [address] [place] [address] 34156 PCP - General Internal Medicine 11/29/24
--- OUTSIDE RECORDS SUMMARY | 2025-10-10 11:52 | XMS_ITS | Encounter Summary ---
Author Organization [employer] Address [address] [facility] 7t [place] [address] Care Team Providers Care Environmental Services Manager Name Role Phone Ernie Noriega MD Primary Care Provide r Reason for Visit * Reason Onset Date Comments Med Refill 08/17/2023 Encounter Details Date Type Department Care Team ([facility] st Contact Info) Description 08/17/2023 Telephone [facility] [address] [place] [address] Ernie Noriega MD [address] [place], [place] [phone] Med Refill Social History Tobacco Use Types [...] (Ultram) 50 MG tablet Please sent to [facility]/pharmacy #[id number] - [place] - [address] [place] [address] documented in this encounter Plan of Treatment Upcoming Encounters Date Type Department Care Team (Late st Contact Info) Description 11/27/2025 9:30 AM EST Telemedicine [facility] MED & PEDS [address] [place] [address] 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, RN [address] [place] [address] documented as of this encounter Visit Diagnoses Not on filedocumented in this encounter Additional Health Concerns Assessment Noted Time PHQ-9 Depression Total Score: 0 12/02/19 23 2:38 PM EST documented as of this encounter Care Teams Environmental Services Manager Relationship Specialty Start Date End Date Ernie Noriega MD [address] [place] [address] PCP - General Internal Medicine 08/25/19 [facility] 03/31/25 05/25/25 [facility] 05/25/25 06/13/25 [facility] 05/25/25 06/19/25 [facility] 06/07/25 documented as of this encounter
--- OUTSIDE RECORDS SUMMARY | 2025-10-10 11:52 | XMS_ITS | Encounter Summary ---
Author Organization [employer] Address [address] [facility] 7t [place] [address] Care Team Providers Care Biogeographer Name Role Phone Ernie Noriega MD Primary Care Provide r Reason for Visit * Reason Comments Med Refill Encounter Details Date Type Department Care Team ([facility] st Contact Info) Description 08/26/2023 Refill [facility] [address] [place] [address] Perlita Woody MD [address] [place] [address] Seasonal allergies Social History Tobacco Use Types [...] 9:30 AM EST Telemedicine [facility] MED & PEDS [address] [place] [address] 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, RN [address] [place] [address] documented as of this encounter Visit Diagnoses Diagnosis Seasonal allergies Allergic rhinitis, cause unspecified documented in this encounter Additional Health Concerns Assessment Noted Time PHQ-9 Depression Total Score: 0 12/02/19 23 2:38 PM EST documented as of this encounter Care Teams Biogeographer Relationship Specialty Start Date End Date Ernie Noriega MD [address] [place] [address] PCP - General Internal Medicine 08/25/19 [facility] 03/31/25 05/25/25 [facility] 05/25/25 06/13/25 [facility] 05/25/25 06/19/25 [facility] 06/07/25 documented as of this encounter
--- OUTSIDE RECORDS SUMMARY | 2025-10-10 11:52 | XMS_ITS | Encounter Summary ---
Author Organization [employer] Address [address] [facility] 7t [place] [address] Care Team Providers Care Grades 1 6 Tutor Name Role Phone Ernie Noriega MD Primary Care Provide r Reason for Visit * Reason Onset Date Comments Med Refill 10/25/2023 Encounter Details Date Type Department Care Team (Late st Contact Info) Description 10/25/2023 Refill [facility] [address] [place] [address] Perlita Woody MD [address] [place] [address] Primary hypertension Social History Tobacco Use Types [...] Info) Description 11/27/2025 9:30 AM EST Telemedicine [facility] MED & PEDS [address] [place] [address] 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 RN [address] [place] [address] documented as of this encounter Visit Diagnoses Diagnosis Primary hypertension Unspecified essential hypertension documented in this encounter Additional Health Concerns Assessment Noted Time PHQ-9 Depression Total Score: 0 12/02/19 23 2:38 PM EST documented as of this encounter Care Teams Grades 1 6 Tutor Relationship Specialty Start Date End Date Ernie Noriega MD [address] [place] [address] PCP - General Internal Medicine 08/25/19 [facility] 03/31/25 05/25/25 [facility] 05/25/25 06/13/25 [facility] 05/25/25 06/19/25 [facility] 06/07/25 documented as of this encounter
--- OUTSIDE RECORDS SUMMARY | 2025-10-10 11:52 | XMS_ITS | Encounter Summary ---
Author Organization [employer] Address [address] [facility] 7t [place] [address] Care Team Providers Care Hostage Negotiator Name Role Phone Ernie Noriega MD Primary Care Provide r Reason for Visit * Reason Onset Date Comments Med Refill 07/17/2025 Encounter Details Date Type Department Care Team ([facility] st Contact Info) Description 07/17/2025 Refill [facility] MEDICINE [address] [place] [address] Ernie Noriega MD [address] [place] [address] Pain Social History Tobacco Use Types Packs/Day [...] Info) Description 11/27/2025 9:30 AM EST Telemedicine [facility] MED & PEDS [address] [place] [address] 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, RN [address] [place] [address] documented as of this encounter Visit Diagnoses Diagnosis Pain Generalized pain documented in this encounter Additional Health Concerns Assessment Noted Time PHQ-9 Depression Total Score: 4 01/13/20 25 2:57 PM EDT documented as of this encounter Care Teams Hostage Negotiator Relationship Specialty Start Date End Date Ernie Noriega MD [address] [place] [phone] PCP - General Internal Medicine 08/25/19 [facility] 06/07/25 documented as of this encounter
--- OUTSIDE RECORDS SUMMARY | 2025-10-10 11:52 | XMS_ITS | Encounter Summary ---
Author Organization [employer] Address [address] [facility] 7t [place] [address] Care Team Providers Care Nuclear Plant Operator Name Role Phone Ernie Noriega MD Primary Care Provide r Reason for Visit * Reason Comments Med Refill Encounter Details Date Type Department Care Team ([facility] st Contact Info) Description 08/28/2023 Refill [facility] [address] [place] [address] Perlita Woody MD [address] [place] [address] Primary hypertension Social History Tobacco Use Types [...] 11/27/2025 9:30 AM EST Telemedicine [facility] MED & PEDS [address] [place] [address] 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, RN [address] [place] [address] documented as of this encounter Visit Diagnoses Diagnosis Primary hypertension Unspecified essential hypertension documented in this encounter Additional Health Concerns Assessment Noted Time PHQ-9 Depression Total Score: 0 12/02/19 23 2:38 PM EST documented as of this encounter Care Teams Nuclear Plant Operator Relationship Specialty Start Date End Date Ernie Noriega MD [address] [place] [address] PCP - General Internal Medicine 08/25/19 [facility] 03/31/25 05/25/25 [facility] 05/25/25 06/13/25 [facility] 05/25/25 06/19/25 [facility] 06/07/25 documented as of this encounter
--- OUTSIDE RECORDS SUMMARY | 2025-10-10 11:52 | XMS_ITS | Encounter Summary ---
Author Organization [employer] Address 75 [facility] 7t [place] [address] Care Team Providers Care Barrel Scraper Name Role Phone Ernie Noriega MD Primary Care Provide r Reason for Visit * Reason Onset Date Comments Med Refill 10/25/2023 Encounter Details Date Type Department Care Team ([facility] st Contact Info) Description 10/25/2023 Refill [facility] MED[facility]INE 230 [place] [address] Ernie Noriega MD 230 [place] [address] Social History Tobacco Use Types Packs/Day Years [...] Description 11/27/2025 9:30 AM EST Telemedicine [facility] MED & PEDS 505 [place] [address] 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, RN 505 [place] [address] documented as of this encounter Visit Diagnoses Not on filedocumented in this encounter Additional Health Concerns Assessment Noted Time PHQ-9 Depression Total Score: 0 12/02/19 23 2:38 PM EST documented as of this encounter Care Teams Barrel Scraper Relationship Specialty Start Date End Date Ernie Noriega MD [address] [place] [address] PCP - General Internal Medicine 08/25/19 [facility] 03/31/25 05/25/25 [facility] 05/25/25 06/13/25 [facility] 05/25/25 06/19/25 [place] [facility] 06/07/25 documented as of this encounter
--- OUTSIDE RECORDS SUMMARY | 2025-10-10 11:52 | XMS_ITS | Encounter Summary ---
Author Organization [employer] Address [address] [place] [address] 7t [place] [address] Care Team Providers Care Senior Geologist Name Role Phone Ernie Noriega MD Primary Care Provide r Encounter Details Date Type Department Care Team (Latest Contact Info) Description 06/19/2022 Abstract [facility] Dental, Provider, DDS Social History Tobacco [...] Info) Description 11/27/2025 9:30 AM EST Telemedicine [facility] MED & PEDS 505 [place] [address] 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, MARQUISE 505 [place] [address] documented as of this encounter Visit Diagnoses Not on filedocumented in this encounter Care Teams Senior Geologist Relationship Specialty Start Date End Date Ernie Noriega MD 230 [place] [address] PCP - General Internal Medicine 08/25/19 [place] [facility] 03/31/25 05/25/25 [facility] 05/25/25 06/13/25 [facility] 05/25/25 06/19/25 [facility] 06/07/25 documented as of this encounter
--- OUTSIDE RECORDS SUMMARY | 2025-10-10 11:52 | XMS_ITS | Encounter Summary ---
Author Organization [employer] Address 75 [facility] 7t [place] [address] Care Team Providers Care Chlorinator Operator Name Role Phone Ernie Noriega MD Primary Care Provide r Reason for Visit * Reason Onset Date Comments Med Refill 09/18/2023 Encounter Details Date Type Department Care Team ([facility] st Contact Info) Description 09/18/2023 Telephone [facility] MEDICINE 230 [place] [address] Ernie Noriega MD 230 [place], [place] [phone] Med Refill Social History Tobacco Use Types [...] (Ultram) 50 MG tablet Please sent to [facility]/pharmacy #[id number] - [place] - [address] [place] [address] documented in this encounter Plan of Treatment Upcoming Encounters Date Type Department Care Team (Late st Contact Info) Description 11/27/2025 9:30 AM EST Telemedicine [facility] & PEDS 505 [place] [address] 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, RN 505 [place] [address] documented as of this encounter Visit Diagnoses Not on filedocumented in this encounter Additional Health Concerns Assessment Noted Time PHQ-9 Depression Total Score: 0 12/02/19 23 2:38 PM EST documented as of this encounter Care Teams Chlorinator Operator Relationship Specialty Start Date End Date Ernie Noriega MD 230 [place] [address] PCP - General Internal Medicine 08/25/19 [place] [facility] 03/31/25 05/25/25 [facility] 05/25/25 06/13/25 [facility] 05/25/25 06/19/25 [facility] 06/07/25 documented as of this encounter
--- OUTSIDE RECORDS SUMMARY | 2025-10-10 11:52 | XMS_ITS | Encounter Summary ---
Author Organization [employer] Address [address] [place] [address] Care Team Providers Care Software Applications Specialist Name Role Phone Ernie Merritt MD Primary Care Provi bobo Encounter Details Date Type Department Care Team (Late st Contact Info) Description 05/23/[address] [facility] [address] [facility] [place] [address] Partha Hermosillo MD [address] [place] [address] Fusion of spine, lumbar region Social History [...] (ABNORMAL) Vitamin B12 (05/23/2025 8:40 AM EDT) [facility] Vitamin B-12 1,040(H) 250 - 900 pcg/mL LAB CHEMISTRY METHOD 05/23/2025 12:33 PM EDT [facility] Blood Venous blood specimen / Unknown Venipuncture / Unknown 05/23/2025 8:40 AM EDT 05/23/2025 9:43 AM EDT Partha Hermosillo MD LAB BLOOD ORDERABLES Final Result Performing Organization Address City/[facility]/ZIP Co de Phone Number [facility] [address] [place] [address], [place] [phone] * (ABNORMAL) Folate (05/23/2025 8:40 AM EDT) [facility] Folate >20.0(H) 2.8 - 17.0 ng/ml LAB CHEMISTRY METHOD 05/23/2025 12:33 PM EDT [facility] Blood Venous blood specimen / Unknown Venipuncture / Unknown 05/23/2025 8:40 AM EDT 05/23/2025 9:43 AM EDT Partha Hermosillo MD LAB BLOOD ORDERABLES Final Result [facility] [address] [place] [address], [place] [phone] * Thyroid stimulating hormone (05/23/2025 8:40 AM EDT) [facility] TSH 1.49 0.40 - 4.00 mcIU/mL LAB CHEMISTRY METHOD 05/23/2025 1:07 PM [facility] Blood Venous blood specimen / Unknown Venipuncture / Unknown 05/23/2025 8:40 AM EDT 05/23/2025 9:43 AM EDT us Partha Hermosillo MD LAB BLOOD ORDERABLES Final Result [facility] [address] [place] [address], [place] [phone] * (ABNORMAL) Basic metabolic panel (05/23/2025 8:40 AM EDT) Sodium 135 133 - 145 mmol/L LAB CHEMISTRY METHOD 05/23/2025 12:33 PM [facility] Potassium 4.0 3.5 - 5.5 mmol/L LAB CHEMISTRY METHOD 05/23/2025 12:33 PM [facility] Chloride 99 96 - 110 mmol/L LAB CHEMISTRY METHOD 05/23/2025 12:33 PM [facility] CO2 27 21 - 32 mmol/L LAB CHEMISTRY METHOD 05/23/2025 12:33 PM [facility] Anion Gap 9 3 - 11 LAB CHEMISTRY METHOD 05/23/2025 12:33 PM [facility] Glucose 121(H) 70 - 100 mg/dL LAB CHEMISTRY METHOD 05/23/2025 12:33 PM [facility] BUN 13 5 - 25 mg/dL LAB CHEMISTRY METHOD 05/23/2025 12:33 PM [facility] Creatinine 0.47(L) 0.50 - 1.10 mg/dL LAB CHEMISTRY METHOD 05/23/2025 12:33 PM [facility] eGFR 108 >=60 mL/min/1. 73m2 LAB CHEMISTRY METHOD 05/23/2025 12:[facility] Comment:Calculation based on the Chronic Kidney Disease Epidemiology Collaboration (CKD-EPI) equation refit without adjustment for race. BUN/Creatinine Ratio 27.7 LAB CHEMISTRY METHOD 05/23/2025 12:33 PM [facility] Calcium 8.8 8.5 - 10.5 mg/dL LAB CHEMISTRY METHOD 05/23/2025 12:33 PM [facility] Blood Venous blood specimen / Unknown Venipuncture / Unknown 05/23/2025 8:40 AM EDT 05/23/2025 9:43 AM EDT Partha Hermosillo MD LAB BLOOD ORDERABLES Final Result [facility] [address] [place] [address], [place] [phone] * (ABNORMAL) Complete blood count (05/23/2025 8:40 AM EDT) WBC 8.9 4.8 - 10.8 K/mcL LAB HEMETOLOGY METHOD 05/23/2025 10:45 AM [facility] RBC 3.10(L) 3.80 - 4.80 M/mcL LAB HEMETOLOGY METHOD 05/23/2025 10:45 AM [facility] Hemoglobin 8.4(L) 11.5 - 16.0 g/dL LAB HEMETOLOGY METHOD 05/23/2025 10:45 AM [facility] Hematocrit 27.6(L) 35.0 - 47.0 % LAB HEMETOLOGY METHOD 05/23/2025 10:45 AM [facility] MCV 90.2 79.0 - 98.0 FL LAB HEMETOLOGY METHOD 05/23/2025 10:45 AM [facility] MCH 27.5 27.0 - 32.0 pcg LAB HEMETOLOGY METHOD 05/23/2025 10:45 AM EDT [facility] MCHC 30.4(L) 32.0 - 37.0 g/dL LAB HEMETOLOGY METHOD 05/23/2025 10:45 AM EDT [facility] RDW 14.9 11.0 - 15.0 % LAB HEMETOLOGY METHOD 05/23/2025 10:45 AM EDT [facility] Platelets 750(H) 130 - 400 K/mcL LAB HEMETOLOGY METHOD 05/23/2025 10:45 AM EDT [facility] MPV 9.4 7.0 - 11.0 FL LAB HEMETOLOGY METHOD 05/23/2025 10:45 AM EDT [facility] NRBC 0.0 <1.0 % LAB HEMETOLOGY METHOD 05/23/2025 10:45 AM EDT [facility] NRBC Absolute 0.00 <0.10 K/mcL LAB HEMETOLOGY METHOD 05/23/2025 10:45 AM EDT [facility] Blood Venous blood specimen / Unknown Venipuncture / Unknown 05/23/2025 8:40 AM EDT 05/23/2025 9:43 AM EDT us Partha Hermosillo MD LAB BLOOD ORDERABLES Final Result [facility] [address] [place] [address], documented in this encounter Visit Diagnoses Diagnosis Fusion of spine, lumbar region documented in this encounter Care Teams Software Applications Specialist Relationship Specialty Start Date End Date Ernie Merritt MD [address] [place] [address] [place] [address] PCP - General Internal Medicine 05/20/21 documented as of this encounter
--- OUTSIDE RECORDS SUMMARY | 2025-10-10 11:52 | XMS_ITS | Encounter Summary ---
Author Organization [employer] Address 75 [facility] 7t [place] [address] Care Team Providers Care Validation Specialist Name Role Phone Ernie Noriega MD Primary Care Provide r Reason for Visit * Reason Onset Date Comments Med Refill 10/27/2023 Encounter Details Date Type Department Care Team ([facility] st Contact Info) Description 10/27/2023 Refill [facility] 230 [place] [address] Ernie Noriega MD 230 [place] [address] Seasonal allergies; Pain Social History Tobacco Use [...] Upcoming Encounters Date Type Department Care Team ([facility] st Contact Info) Description 11/27/2025 9:30 AM EST Telemedicine [facility] MED & PEDS [address] [place] [address] 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 RN 505 [place] [address] documented as of this encounter Visit Diagnoses Diagnosis Seasonal allergies Allergic rhinitis, cause unspecified Pain Generalized pain documented in this encounter Additional Health Concerns Assessment Noted Time PHQ-9 Depression Total Score: 0 12/02/19 23 2:38 PM EST documented as of this encounter Care Teams Validation Specialist Relationship Specialty Start Date End Date Ernie Noriega MD [address] [place] [address] PCP - General Internal Medicine 08/25/19 [facility] 03/31/25 05/25/25 [facility] 05/25/25 06/13/25 [facility] 05/25/25 06/19/25 [place] [facility] 06/07/25 documented as of this encounter
--- OUTSIDE RECORDS SUMMARY | 2025-10-10 11:52 | XMS_ITS | Encounter Summary ---
Author Organization [employer] Address 75 [facility] 7t [place] [address] Care Team Providers Care Teacher [employer] Name Role Phone Ernie Noriega MD Primary Care Provide r Reason for Visit * Reason Onset Date Comments Med Refill 11/04/2023 Encounter Details Date Type Department Care Team (Late st Contact Info) Description 11/04/2023 Refill [facility] MEDICINE 230 [place] [address] Ernie Noriega MD 230 [place] [address] Chronic midline low back pain without sciatica; [...] Info) Description 11/27/2025 9:30 AM EST Telemedicine [facility] MED & PEDS 505 [place] [address] 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, MARQUISE 505 [place] [address] documented as of this encounter Visit Diagnoses Diagnosis Chronic midline low back pain without sciatica Cervical radiculopathy Brachial neuritis or radiculitis nos Seasonal allergies Allergic rhinitis, cause unspecified documented in this encounter Additional Health Concerns Assessment Noted Time PHQ-9 Depression Total Score: 0 12/02/19 23 2:38 PM EST documented as of this encounter Care Teams Teacher [employer] Relationship Specialty Start Date End Date Ernie Noriega MD [address] [place] [address] PCP - General Internal Medicine 08/25/19 [place] [facility] 03/31/25 05/25/25 [facility] 05/25/25 06/13/25 [facility] 05/25/25 06/19/25 [facility] 06/07/25 documented as of this encounter
--- OUTSIDE RECORDS SUMMARY | 2025-10-10 11:52 | XMS_ITS | Encounter Summary ---
Author Organization [employer] Address 75 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 Pt. States that she went to [...] leg pain now Please contact pt at [phone]. (Sami Speaker) documented in this encounter Plan of Treatment Upcoming Encounters Date Type Department Care Team (Late st Contact Info) Description 11/27/2025 9:30 AM EST Telemedicine [facility] MED & PEDS 505 [place] [address] 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, RN 505 [place] [address] documented as of this encounter Visit Diagnoses Not on filedocumented in this encounter Additional Health Concerns Assessment Noted Time PHQ-9 Depression Total Score: 2 01/21/20 24 1:25 PM EDT documented as of this encounter Care Teams Seed Cone Picker Relationship Specialty Start Date End Date Ernie Noriega MD [address] [place] [address] PCP - General Internal Medicine 08/25/19 [place] [facility] 03/31/25 05/25/25 [place] [facility] 05/25/25 06/13/25 [facility] 05/25/25 06/19/25 [facility] 06/07/25 documented as of this encounter
--- OUTSIDE RECORDS SUMMARY | 2025-10-10 11:52 | XMS_ITS | Encounter Summary ---
Author Organization [employer] Address 75 [facility] 7t [place] [address] Care Team Providers Care Early Head Start Teacher Name Role Phone Ernie Noriega MD Primary Care Provide r Reason for Visit * Reason Onset Date Comments Med Refill 01/31/2025 Encounter Details Date Type Department Care Team ([facility] st Contact Info) Description 01/31/2025 Refill [facility] MEDICINE 230 [place] [address] Ernie Noriega MD 230 [place] [address] Pain Social History Tobacco Use Types Packs/Day [...] 11/27/2025 9:30 AM EST Telemedicine [facility] MED & PEDS 505 [place] [address] 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, RN 505 [place] [address] documented as of this encounter Visit Diagnoses Diagnosis Pain Generalized pain documented in this encounter Additional Health Concerns Assessment Noted Time PHQ-9 Depression Total Score: 4 01/13/20 25 2:57 PM EDT documented as of this encounter Care Teams Early Head Start Teacher Relationship Specialty Start Date End Date Ernie Noriega MD [address] [place] [address] PCP - General Internal Medicine 08/25/19 [place] [facility] 03/31/25 05/25/25 [facility] 05/25/25 06/13/25 [facility] 05/25/25 06/19/25 [place] [facility] 06/07/25 documented as of this encounter
--- OUTSIDE RECORDS SUMMARY | 2025-10-10 11:52 | XMS_ITS | Encounter Summary ---
Author Organization [employer] Address 75 [facility] 7t [place] [address] Care Team Providers Care German Instructor Name Role Phone Ernie Noriega MD Primary Care Provide r Reason for Visit * Reason Comments Med Refill Encounter Details Date Type Department Care Team ([facility] Contact Info) Description 04/01/2025 Refill [facility] MEDICINE 230 [place] [address] Perlita Myers MD 230 [place] [address] Mild persistent asthma without complication Social History [...] Info) Description 11/27/2025 9:30 AM EST Telemedicine [facility] MED & PEDS 505 [place] [address] 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, MARQUISE 505 [place] [address] documented as of this encounter Visit Diagnoses Diagnosis Mild persistent asthma without complication documented in this encounter Additional Health Concerns Assessment Noted Time PHQ-9 Depression Total Score: 4 01/13/20 25 2:57 PM EDT documented as of this encounter Care Teams German Instructor Relationship Specialty Start Date End Date Ernie Noriega MD [address] [place] [address] PCP - General Internal Medicine 08/25/19 [place] [facility] 03/31/25 05/25/25 [facility] [facility] 05/25/25 06/13/25 [facility] 05/25/25 06/19/25 [place] [facility] 06/07/25 documented as of this encounter
--- OUTSIDE RECORDS SUMMARY | 2025-10-10 11:52 | XMS_ITS | Encounter Summary ---
Author Organization [facility] Address [address] [place] [address] Care Team Providers Care Product Applications Scientist Name Role Phone Ernie Merritt Primary Care Provider + Encounter Details Date Type Department Care Team (Late st Contact Info) Description 10/02/2025 Orders Only [facility] [address] [place] [address] Ana Lilia Portillo PA [address] [place] [address] Social History Tobacco Use Types Packs/Day Years Used Date Smoking Tobacco: Former Cigarettes 0 Q uit: 2002 Smokeless Tobacco: Never Alcohol [...] Info) Description 02/14/2026 1:15 PM EDT Follow-Up [facility] [address] [place] [address] Christopher Peres MD [address] [place] [address] documented as of this encounter Visit Diagnoses Not on filedocumented in this encounter Care Teams Product Applications Scientist Relationship Specialty Start Date End Date Ernie Merritt [address] [place] [address] PCP - General Internal Medicine 11/29/24 documented as of this encounter
--- OUTSIDE RECORDS SUMMARY | 2025-10-10 11:52 | XMS_ITS | Encounter Summary ---
Author Organization [facility] Address [address] [place] [address] Care Team Providers Care Microstrategy Architect Name Role Phone Ernie Merritt Primary Care Provider + Encounter Details Date Type Department Care Team (Late st Contact Info) Description 09/28/2025 [employer] Message [facility] Financial Clearance Department [address] [place] [address] [employer], Generic Provider [address] [place], [place] [phone] No Auth Required Social History Tobacco Use Types Packs/Day Years [...] Info) Description 02/14/2026 1:15 PM EDT Follow-Up [facility] [address] [place] [address] Christopher Peres MD [address] [place], [place] [phone] documented as of this encounter Visit Diagnoses Not on filedocumented in this encounter Care Teams Microstrategy Architect Relationship Specialty Start Date End Date Ernie Merritt [address] [place] [address] PCP - General Internal Medicine 11/29/24 documented as of this encounter
--- OUTSIDE RECORDS SUMMARY | 2025-10-10 11:52 | XMS_ITS | Encounter Summary ---
Author Organization [employer] Address 75 [facility] 7t [place] [address] Care Team Providers Care Chain Person Name Role Phone Ernie Noriega MD Primary Care Provide r Reason for Visit * Reason Comments Med Refill Encounter Details Date Type Department Care Team ([facility] st Contact Info) Description 08/10/2023 Refill [facility] [address] [place] [address] Perlita Woody MD [address] [place] [address] Seasonal allergies; Primary hypertension Social History Tobacco [...] ([facility] st Contact Info) Description 11/27/2025 9:30 AM EST Telemedicine [facility] MED & PEDS 505 [place] [address] 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, RN 505 [place] [address] documented as of this encounter Visit Diagnoses Diagnosis Seasonal allergies Allergic rhinitis, cause unspecified Primary hypertension Unspecified essential hypertension documented in this encounter Additional Health Concerns Assessment Noted Time PHQ-9 Depression Total Score: 0 12/02/19 23 2:38 PM EST documented as of this encounter Care Teams Chain Person Relationship Specialty Start Date End Date Ernie Noriega MD [address] [place] [address] PCP - General Internal Medicine 08/25/19 [place] [facility] 03/31/25 05/25/25 [facility] 05/25/25 06/13/25 [facility] 05/25/25 06/19/25 [place] [facility] 06/07/25 documented as of this encounter
--- OUTSIDE RECORDS SUMMARY | 2025-10-10 11:52 | XMS_ITS | Encounter Summary ---
Author Organization [employer] Address 75 [facility] 7t [place] [address] Care Team Providers Care Radio Maintainer Name Role Phone Ernie Noriega MD Primary Care Provide r Reason for Visit * Reason Onset Date Comments Med Refill 11/03/2023 Encounter Details Date Type Department Care Team ([facility] st Contact Info) Description 11/03/2023 Refill [facility] [address] [place] [address] Ernie Noriega MD 230 [place] [address] Seasonal allergies Social History Tobacco Use Types [...] Info) Description 11/27/2025 9:30 AM EST Telemedicine [facility] MED [facility] PEDS 505 [place] [address] 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 RN 505 [place] [address] documented as of this encounter Visit Diagnoses Diagnosis Seasonal allergies Allergic rhinitis, cause unspecified documented in this encounter Additional Health Concerns Assessment Noted Time PHQ-9 Depression Total Score: 0 12/02/19 23 2:38 PM EST documented as of this encounter Care Teams Radio Maintainer Relationship Specialty Start Date End Date Ernie Noriega MD 230 [place] [address] PCP - General Internal Medicine 08/25/19 [facility] 03/31/25 05/25/25 [facility] 05/25/25 06/13/25 [facility] 05/25/25 06/19/25 [place] [facility] 06/07/25 documented as of this encounter
--- OUTSIDE RECORDS SUMMARY | 2025-10-10 11:52 | XMS_ITS | Encounter Summary ---
Author Organization [employer] Address 75 [facility] 7t [place] [address] Care Team Providers Care Welt Stitch Cleaner Name Role Phone Ernie Noriega MD Primary Care Provide r Reason for Visit * Reason Comments Med Refill Encounter Details Date Type Department Care Team ([facility] st Contact Info) Description 11/20/2023 Refill [facility] [address] [place] [address] Ernie Noriega MD 230 [place], [place] [phone] Pain Social History Tobacco Use Types Packs/Day [...] Description 11/27/2025 9:30 AM EST Telemedicine [facility] MED & PEDS 505 [place] [address] 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, RN [address] [place] [address] documented as of this encounter Visit Diagnoses Diagnosis Pain Generalized pain documented in this encounter Additional Health Concerns Assessment Noted Time PHQ-9 Depression Total Score: 0 12/02/19 23 2:38 PM EST documented as of this encounter Care Teams Welt Stitch Cleaner Relationship Specialty Start Date End Date Ernie Noriega MD [address] [place] [address] PCP - General Internal Medicine 08/25/19 [facility] 03/31/25 05/25/25 [facility] 05/25/25 06/13/25 [facility] 05/25/25 06/19/25 [place] [facility] 06/07/25 documented as of this encounter
--- OUTSIDE RECORDS SUMMARY | 2025-10-10 11:52 | XMS_ITS | Clinical Summary ---
Author Organization [employer] Address [address] [place] [address] Care Team Providers Care Audience Development Manager Name Role Phone Ernie Noriega MD [...] by mouth in the morning. 023 Active Multiple Vitamins-Minerals (Centrum Women) tablet Take [...] hypertension Use daily 1 kit 024 Active Advair Diskus 500-50 MCG/ACT aerosol powder Take 1 puff by mouth 2 times daily. Active bethanechol (Urecholine) 25 MG tablet Take 1 tablet by mouth 3 times daily. 025 Active methocarbamol (Robaxin) 500 MG tablet Take 1 tablet by mouth if needed in the morning, at noon, in the evening, and at bedtime for muscle spasms. 025 Active sennosides (Senokot) 8.6 MG tablet Take 8.6 mg by mouth at bedtime. 025 Active omeprazole (PriLOSEC) [address] capsuleIndication s:Gastritis without bleeding, unspecified chronicity, unspecified gastritis type TOME 1 CAPSULA POR VIA ORAL TODOS LOS SUAREZ BEFORE A MEAL 90 capsule 3 025 Active naloxone (Narcan) 4 mg/0.1 mL nasal spray Administer 1 spray (4 mg) into affected nostril(s) if needed for opioid reversal. May repeat every 2-3 minutes if needed, alternating nostrils, until medical assistance becomes available. 2 each 2 025 2025 Active hydroCHLOROthiazi de (HYDRODiuril) 25 MG tabletIndications :Primary hypertension TAKE 1 TABLET BY MOUTH EVERY MORNING 90 tablet 025 Active montelukast (Singulair) 10 MG tabletIndications :Mild persistent asthma without complication TAKE 1 TABLET BY MOUTH EVERY DAY 90 tablet 025 Active lidocaine (Lidoderm) 5 % patchIndications: Primary osteoarthritis of knee, unspecified laterality APPLY 1 TO 2 PATCHES TOPICALLY AND LEAVE ON UP TO 12 HOURS DAILY IF NEEDED FOR PAIN 60 patch 1 025 Active Acetaminophen Extra Strength 500 MG tabletIndications :Pain TAKE 1 TABLET BY MOUTH EVERY 12 HOURS IF NEEDED FOR PAIN 60 tablet 3 025 Active fluticasone (Flonase) 50 MCG/ACT nasal sprayIndications: Seasonal allergies USE 2 SPRAYS INTO EACH NOSTRIL 2 TIMES DAILY 48 mL 025 Active oxyCODONE (Roxicodone) 5 MG immediate release tabletIndications :Chronic midline low back pain without sciatica Take 1 tablet (5 mg) by mouth every 6 (six) hours if needed for severe pain. 112 tablet 025 Active gabapentin (Neurontin) 300 MG capsuleIndication s:Chronic midline low back pain without sciatica TAKE 2 CAPSULES BY MOUTH 3 TIMES A DAY 180 capsule 1 025 Active polyethylene glycol, PEG, 3350 (GaviLAX) 17 GM/SCOOP powderIndications :Constipation, unspecified constipation type MIX AND DRINK 17G ONCE DAILY FOR 3 DAYS AND THEN NEEDED 510 g 2 025 Active albuterol (2.5 MG/3ML) 0.083% nebulizer solution INHALE THE CONTENTS OF 1 VIAL WITH NEBULIZER 3 TIMES A DAY 75 mL 1 025 Active tamsulosin (Flomax) 0.4 MG 24 hr capsule Take 1 capsule by mouth 1 (one) time each day. 022 2024 Discontinued(T herapy completed) morphine CR (MS Contin) 15 MG 12 hr tablet Take 1 tablet by mouth every 12 (twelve) hours. Do not crush, chew, or split. 2024 Discontinued(T herapy completed) gabapentin (Neurontin) 300 MG capsuleIndication s:Chronic midline low back pain without sciatica TAKE 2 CAPSULES BY MOUTH 3 TIMES DAILY 180 capsule 1 025 2024 Discontinued polyethylene glycol, PEG, 3350 (GaviLAX) 17 GM/SCOOP powderIndications :Constipation, unspecified constipation type TAKE 17G ONCE DAILY FOR 3 DAY AND THEN NEEDED 510 g 2 025 2024 Discontinued albuterol (2.5 MG/3ML) 0.083% nebulizer solution INHALE THE CONTENTS OF 1 VIAL WITH NEBULIZER 3 TIMES A DAY 75 mL 1 025 2024 Discontinued Active Problems Problem Noted Date Diagnosed Date Long-term current use of opiate analgesic 2024 Periodontal disease 07/28/2025 Pain, dental 07/28/2025 Acute [...] with normal Uric Acid and Lyme titers Tubular adenoma of colon 06/07/2024 Assessment & [...] -continue care w urologist -PCP apt 06/07/2024 Voiding dysfunction 04/01/2024 Assessment & Plan (09/26/2025 3:09 PM EST): Under the care of Urology, last seen 08/04/2025 Overweight (BMI 25.0-29.9) 02/11/2024 Assessment & Plan [...] Preventative health care 03/12/2023 Assessment & Plan (09/26/2025 3:14 PM EST): Mammogram: 01/05/2025 NL Pap Smear: 11/21/2020 Negative with co-testing 5 yr f/u Colonoscopy: 03/18/2024 Tubular adenoma, 5 [address] follow up recommended Dr. Millan Assessment & Plan (06/07/2024 12:53 PM EDT): [...] has chronic low back pain, treated at [facility] by Dr Clint Newberry. Hx of AP fusion from L4-sacrum in 2003. She has received epidural injections initially with good results but that is no longer the case. Pt developed lumbar spinal stenosis and on 01/14/2021 underwent Posterior neural foraminotomy L2-L3 by Dr. Bailey. [place] [facility] [place] 11/20/2022 due to worsening low back pain with radiation to her right thigh and right leg after an experimental thoracic spinal stimulation procedure at the surgery center of [place] (She was referred there by [facility]). Procedure was aborted after pt [...] does not want to follow-up with [facility] d/t the severe pain she experienced with [...] care of Orthopaedic specialist Dr Lees at [facility]. Pt would like to hold off on procedure until her back feels better. I contacted the office of Orthopaedic surgeon who stated this was an elective procedure and was ok with delaying until pt felt ready Assessment & Plan (12/04/2022 8:31 AM EST): Pt had initially come in for a Preoperative exam. Under the care of Orthopaedic specialist Dr Lees at [facility]. Pt would like to hold off on procedure until her back feels better. I contacted the office of Orthopaedic surgeon who stated this was an elective procedure and was ok with delaying until pt felt ready Essential hypertension 10/03/2022 Assessment & Plan (09/26/2025 3:13 PM EST): Patient with Hypertension currently controlled on a regimen of Hctz 25 mg po daily Most recent electrolytes, Bun and Creatinine done on: Lab Results Component Value Date NA 141 06/09/2025 NA 142 01/25/2025 K 3.8 06/09/2025 K 4.0 01/25/2025 CL 105 06/09/2025 CL 105 01/25/2025 BUN 17 (H) 06/09/2025 BUN 17 (H) 01/25/2025 CREATININE 0.59 06/09/2025 CREATININE 0.80 01/25/2025 were within normal limits. Plan: Continue current regimen patient advised to adhere to a low sodium diet, encouraged about medication compliance, counseled about weight loss. Assessment & Plan (01/12/2025 3:27 PM EDT): [...] has a Medical [employer] Card recommended by [facility] treating physician. pt utilizes the liquid form. She is no longer under the care of [facility] I had been prescribing tramadol [...] has a Medical [employer] Card recommended by [facility] treating physician. pt utilizes the liquid form. She is no longer under the care of [facility] I had been prescribing tramadol [...] has a Medical [employer] Card recommended by [facility] treating physician. pt utilizes the liquid form. [...] Dr Soto who referred her back to [facility] for back pain History of [...] 10 year f/u recommended 2022, already scheduled Mild episode of recurrent major depressive disor bobo 10/29/2012 Assessment & Plan (09/26/2025 3:21 PM EST): Under the care of Dr Almeida at [facility]. And gamal Rodarteos see med list for current psychiatric meds, no changes. she has been stable they have requested me to continue his medications for insomnia, Ambien and Benadryl Assessment & Plan (05/28/2023 3:42 PM EDT): Under the care of Dr Almeida at [facility]. see med list for current psychiatric meds, no changes. she has been stable they have requested me to continue his medications for insomnia, Ambien and Benadryl Chronic low back pain 05/12/2012 Assessment & Plan (09/26/2025 3:13 PM EST): Pt here for a f/u Patient has a Hx of chronic low back pain, treated in the past at [facility] by Dr Clint Newberry. Hx of AP fusion from L4-sacrum in 2003. She received epidural injections with good results in the past. but that is no longer the case. Pt developed lumbar spinal stenosis and on 01/14/2021 underwent Posterior neural foraminotomy L2-L3by Dr. Bailey. Ad[place] [facility] [place] until 11/20/2022 due to worsening low back pain with radiation to her right thigh and right leg after an experimental thoracic spinal stimulation procedure at the surgery center [facility] (She was referred there by [facility]). Procedure was aborted after pt [...] the pain clinic. Pt was evaluated at [facility]: 11/08/2024 they did [...] encroachment seen. Subsequently she was referred to [facility] Neurosurgery, Their assesment was that patient [...] care of Dr Christopher Peres Neurosurgeon at [facility] He reviewed her MRI thoracic and [...] monitoring. He gave her a prescription for duloxetine. She was seen again by Dr Peres in 08/16/2025 and mentioned that with duloxetine and physical therapy her back pain was almost completely gone. He told her to continue with physical therapy and planned to see her in 6 months time with repeat scoliosis x-rays. Assessment & Plan (07/06/2025 11:43 AM EDT): Pt here for a f/u Patient has a Hx of chronic low back pain, treated in the past at [facility] by Dr Clint Newberry. Hx of AP fusion from L4-sacrum in 2003. She received epidural injections with good results in the past. but that is no longer the case. Pt developed lumbar spinal stenosis and on 01/14/2021 underwent Posterior neural foraminotomy L2-L3by Dr. Bailey. Ad[place] [facility] [place] until 11/20/2022 due to worsening low back pain with radiation to her right thigh and right leg after an experimental thoracic spinal stimulation procedure at the surgery center [facility] (She was referred there by [facility]). Procedure was aborted after pt [...] the pain clinic. Pt was evaluated at [facility] Pain clinic: 11/08/2024 they did [...] encroachment seen. Subsequently she was referred to [facility], Their assesment was that patient [...] care of Dr Christopher Peres Neurosurgeon at [facility] He reviewed her MRI thoracic and [...] back pain, treated in the past at [facility] by Dr Clint Newberry. Hx of AP fusion from L4-sacrum in 2003. She received epidural injections with good results in the past. but that is no longer the case. Pt developed lumbar spinal stenosis and on 01/14/2021 underwent Posterior neural foraminotomy L2-L3by Dr. Bailey. Ad[place] [facility] [place] until 11/20/2022 due to worsening low back pain with radiation to her right thigh and right leg after an experimental thoracic spinal stimulation procedure at the surgery center [facility] (She was referred there by [facility]). Procedure was aborted after pt [...] the pain clinic. Pt was evaluated at [facility] Pain clinic: 11/08/2024 they did [...] encroachment seen. Subsequently she was referred to [facility], Their assesment was that patient [...] care of Dr Christopher Peres Neurosurgeon at [facility] He reviewed her MRI thoracic and [...] back pain, treated in the past at [facility] by Dr Clint Newberry. Hx of AP fusion from L4-sacrum in 2003. She received epidural injections with good results in the past. but that is no longer the case. Pt developed lumbar spinal stenosis and on 01/14/2021 underwent Posterior neural foraminotomy L2-L3by Dr. Bailey. She was admitted [place] [facility] [place] until 11/20/2022 due to worsening low back pain with radiation to her right thigh and right leg after an experimental thoracic spinal stimulation procedure at the surgery center [facility] (She was referred there by [facility]). Procedure was aborted after pt [...] the pain clinic. Pt was evaluated at [facility] Pain clinic: 11/08/2024 they did [...] encroachment seen. Subsequently she was referred to [facility], Their assesment was that patient [...] care of Dr Christopher Peres Neurosurgeon at [facility] He reviewed her MRI thoracic and [...] back pain, treated in the past at [facility] by Dr Clint Newberry. Hx of AP fusion from L4-sacrum in 2003. She received epidural injections with good results in the past. but that was no longer the case. Pt developed lumbar spinal stenosis and on 01/14/2021 underwent Posterior neural foraminotomy L2-L3by Dr. Bailey. She was admitted [place] [facility] [place] until 11/20/2022 due to worsening low back pain with radiation to her right thigh and right leg after an experimental thoracic spinal stimulation procedure at the surgery center [facility] (She was referred there [...] the pain clinic. Pt was evaluated at [facility] Pain clinic: 11/08/2024 they did [...] encroachment seen. Subsequently she was referred to [facility], seen Their assesment was:that [...] back pain, treated in the past at [facility] by Dr Clint Newberry. Hx of AP fusion from L4-sacrum in 2003. She received epidural injections with good results in the past. but that was no longer the case. Pt developed lumbar spinal stenosis and on 01/14/2021 underwent Posterior neural foraminotomy L2-L3by Dr. Bailey. She was admitted to [facility] [place] until 11/20/2022 due to worsening low back pain with radiation to her right thigh and right leg after an experimental thoracic spinal stimulation procedure at the surgery center [facility] (She was referred there by [facility]). Procedure was aborted after pt [...] pain, she had been receiving treatment at [facility] by Dr Clint Newberry. Hx of AP fusion from L4-sacrum in 2003. She has received epidural injections with good results in the past. but that was no longer the case. Pt developed lumbar spinal stenosis and on 01/14/2021 underwent Posterior neural foraminotomy L2-L3by Dr. Bailey. Patient is here for a follow up. She was recently admitted to [facility] [place]/20[place] until 11/20/2022 due to worsening low back pain with radiation to her right thigh and right leg after an experimental thoracic spinal stimulation procedure at the surgery center [facility] (She was referred there by [facility]). Procedure was aborted after pt [...] does not want to follow-up with [facility] d/t the severe pain she experienced with [...] pain, she had been receiving treatment at [facility] by Dr Clint Newberry. Hx of AP fusion from L4-sacrum in 2003. She has received epidural injections with good results in the past. but that was no longer the case. Pt developed lumbar spinal stenosis and on 01/14/2021 underwent Posterior neural foraminotomy L2-L3by Dr. Bailey. She was admitted [place] [facility] [place]/20[place] until 11/20/2022 due to worsening low back pain with radiation to her right thigh and right leg after an experimental thoracic spinal stimulation procedure at the surgery center [facility] (She was referred there by [facility]). Procedure was aborted after pt [...] does not want to follow-up with [facility] d/t the severe pain she experienced with [...] pain, she had been receiving treatment at [facility] by Dr Clint Newberry. Hx of AP fusion from L4-sacrum in 2003. She has received epidural injections with good results in the past. but that was no longer the case. Pt developed lumbar spinal stenosis and on 01/14/2021 underwent Posterior neural foraminotomy L2-L3by Dr. Bailey. Patient is here for a follow up. She was recently admitted to [facility] [place] until 11/20/2022 due to worsening low back pain with radiation to her right thigh and right leg after an experimental thoracic spinal stimulation procedure at the surgery center [facility] (She was referred there by [facility]). Procedure was aborted after pt [...] does not want to follow-up with [facility] d/t the severe pain she experienced with [...] Problem Noted Date Diagnosed Date Resolved Date UTI symptoms 10/25/2024 09/26/2025 Assessment & Plan (10/25/2024 1:16 PM EST): Preoperative examination 01/21/202411/2023 Assessment & Plan (01/21/2024 [...] Encounters Date Type Department Care Team Description 10/02/2025 Telephone [facility] [place] [address] Ernie Noriega MD Appointment Request 09/29/2025 Refill [facility] [place] [address] Ernie Noriega MD 09/26/2025 3:00 PM EST Office Visit [facility] [place] [address] Ernie Noriega MD Chronic midline low back pain without sciatica (Primary Dx); Essential hypertension; Mild episode of recurrent major depressive disorder (CMS/HCC); Voiding dysfunction; Preventative health care 09/26/2025 Travel 09/20/2025 Refill [facility] [place] [address] Ernie Noriega MD Constipation, unspecified constipation type 09/19/2025 Telephone [facility] [place] [address] Ernie Noriega MD Chart Prep 09/19/2025 Refill [facility] [address] [place] [address] Ernie Noriega MD Chronic midline low back pain without sciatica 09/19/2025 Travel 09/04/2025 Refill [facility] [address] [place] [address] Ernie Noriega MD Chronic midline low back pain without sciatica; Seasonal allergies 09/01/2025 9:00 AM EST Clinical Support [facility] [address] [place] [address] 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, 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 back pain without sciatica (Primary Dx); Long-term current use of opiate analgesic 09/01/2025 Refill [facility] [address] [place] [address] Ernie Noriega MD Chronic midline low back pain without sciatica 09/01/2025 Telephone [facility] [address] [place] [address] 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, MARQUISE 09/01/2025 Travel 08/29/2025 Refill [facility] [address] [place] [address] Ernie Noriega MD Seasonal allergies 08/25/2025 Travel 08/15/2025 Refill [facility] [address] [place] [address] Ernie Noriega MD Seasonal allergies 08/15/2025 Refill [facility] [address] [place] [address] Ernie Noriega MD Primary osteoarthritis of knee, unspecified laterality; Pain 08/15/2025 Refill [facility] [address] [place] [address] Ernie Noriega MD Chronic midline low back pain without sciatica 08/15/2025 Refill [facility] [address] [place] [address] Ernie Noriega MD Pain 08/10/2025 Refill [facility] [address] [place] [address] Ernie Noriega MD Primary hypertension; Mild persistent asthma without complication 07/28/2025 1:00 PM EDT Office Visit [facility] [address] [place] [address] Shmuel Vega DDS Periodontal disease (Primary Dx); Pain, dental 07/28/2025 Travel 07/17/2025 Refill [facility] [address] [place] [address] Ofelia Melgar MD 07/17/2025 Refill [facility] [address] [place] [address] Ernie Noriega MD Pain 07/17/2025 Refill [facility] [address] [place] [address] Ernie Noriega MD Chronic midline low back pain without sciatica from Last 3 Months Immunizations Immunization Administration [...] Zaria Stroke Mother Zaria Hypertension Sister 1 Eprlita Hypertension Sister 2 Perlita Relation Name Status [...] Sign Reading Time Taken Comments Blood Pressure 136/82 09/26/2025 3:13 PM EST Pulse 67 09/26/2025 2:58 PM EST Temperature 36.3 C (97.4 F) 09/26/2025 2:58 PM EST Respiratory Rate 19 09/26/2025 2:58 PM EST Oxygen Saturation 98% 09/26/2025 2:58 PM EST Inhaled Oxygen Concentration - - Weight 74.9 kg (165 lb 3.2 oz) 09/26/2025 2:58 P M EST Height 160 cm (5' 3 ) 09/26/2025 2:58 PM EST Body Mass Index 29.26 09/26/2025 2:58 PM EST Plan of Treatment Upcoming Encounters Date Type Department Care Team (Late st Contact Info) Description 11/27/2025 9:30 AM EST Telemedicine [facility] [address] [facility] [place] [address] 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, MARQUISE [address] [place] [address] Health Maintenance Due Date Last Done Comments CT Colonography 1963 FIT DNA/Cologuard 1963 FIT 1963 FOBT 1963 HIV Screening 1963 Sigmoidoscopy 1963 Pap Smear 1984 Dental X-Ray: Bitewings 09/17/2012 09/16/2011, 03/05 RSV Patients and Patients Aged 60 years or older (1 - Risk 50-74 years 1-dose series) 2013 Dental X-Ray: Full Mouth 09/17/2014 09/16/2011 Dental Oral Exam 12/18/2022 06/19/2022, , 09/27/2019, Additional history exists Dental Prophylaxis 12/18/2022 06/19/2022, 0 03/07/2021, 11/08/2019, Additional history exists Cervical Cancer Screening 12/19/2025 HPV/Cotest 12/19/2025 12/19/2020, 12/10, 09/02/2019 Depression Screening 01/12/2026 01/12/2025, 01/13/20 25 SDOH Screening 01/12/2026 01/12/2025 Disability Screening 04/04/2026 04/04/2025 Tobacco Screening 07/28/2026 07/28/2025 Alcohol/Substance Use Screening 09/26/2026 09/26/2025 Mammogram 01/05/2027 01/05/2025, 12/11, 12/23/2022, Additional history [...] Name Priority Date/Time Associated Diagnosis Comments POCT REGGIE-14 URINE DRUG SCREEN Routine 09/01/2025 10:36 AM EST Chronic midline low back pain without sciatica CASE PRESENTATION, DETAILED AND EXTENSIVE TREATMENT PLANNING Routine 07/28/2025 1:00 PM EDT INTRAORAL - PERIAPICAL FIRST RADIOGRAPHIC IMAGE Routine 07/28/2025 1:00 PM EDT LIMITED ORAL EVALUATION - PROBLEM FOCUSED Routine 07/28/2025 1:00 PM EDT 21 EXTRACTION, ERUPTED TOOTH OR EXPOSED ROOT (ELEVATION/FORCEPS REMOVAL) Routine 07/28/2025 1:00 PM EDT LIPID PANEL, STANDARD Routine 01/25/2025 [...] Relevant to Health Maintenance Results * (ABNORMAL) POCT REGGIE-14 Urine Drug Screen (09/01/2025 10:36 AM EST) THC Positive(A) Negative Cocaine Screen, Urine Negative Negative Opiate Screen, Urine Negative Negative Methamphetamine Screen Urine Negative Negative Amphetamine Screen, Urine Negative Negative Benzodiazepines Screen, Urine Negative Negative Barbiturate Screen, Urine Negative Negative Methadone Screen, Urine Negative Negative Buprenophine Screen, Urine Negative Negative TCA, Urine Negative Negative MDMA Urine Negative Negative ng/mL Oxycodone Screen, Urine Positive(A) Negative Comment:Rx Phencyclidine (PCP), Urine Negative Negative Propoxyphene, Urine Negative Negative Fentanyl, Urine Negative Negative Urine Urine specimen obtained by clean catch procedure / Unknown 09/01/2025 10:36 AM EST Narrative 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 RN - 09/01/2025 10:36 AM EST .UTOX cup Lot#[id number] Exp. 09/11/26 Internal Pass Control us Ernie Ro MD POINT OF CARE TEST EN TER/EDIT ORDERABLES Final Result * (ABNORMAL) Lipid Panel, Standard (01/25/2025 8:37 AM EDT) Triglycerides 165(H) <150 mg/dL [facility] Comment:Desirable Triglyceri de: less than 150 mg/dLBorderline High Triglyceride 150-199 mg/dLHigh Triglyceride: 200-499 mg/dLVery High Triglyceride: greater than or equal to 5OO mg/dL Cholesterol 232(H) <200 mg/dL [facility] Comment:Desirable Cholestero l: less than 200 mg/dLBorderline High Cholesterol: 200-239 mg/dLHigh Cholesterol: greater than 239 mg/dL LDL Cholesterol Calculated 133(H) <100 mg/dL [facility] Comment:Desirable LDL: less than 100 mg/dLNear Optimal/Above Optimal LDL: 110- 129 mg/dLBorderline High LDL: 130-159 mg/dLHigh LDL: 160-189 mg/dLVery High LDL: greater than or equal to 190 mg/dL HDL Cholesterol 66 >40 mg/dL [facility] Comment:Desirable HDL: great er than 40 mg/dL Note: This HDL assay may give artificially low results in patients with liver disease. Blood Venous blood specimen / Unknown 01/25/2025 8:37 AM EDT 01/25/2025 11:14 AM EDT us Ernie Ro MD LAB BLOOD ORDERABLES Final Result [facility] [address] [place] [address] [phone] * BI Mammogram Screening Tomosynthesis Bilateral (01/05/2025 10:00 AM EDT) Anatomical Region Laterality Modality Breast Bilateral Mammography 01/05/2025 10:0 0 AM EDT Narrative 01/13/2025 2:49 PM EDT [facility] [address] [place] [address] Mammography Report Signed Patient: Miguelina Julien MR#: [id number] 12 : 1965 Acct:[id number] Age/Sex: 59 / F ADM Date: 01/05/25 Loc: HO.MAMMO Attending Dr: Ernie Merritt MD Ordering Physician: Ernie Merritt MD Resu lts: 1Negative Date of Service: 01/05/25 Follow Up: 1 Year From Orig inal Mammogram Procedure(s): MM tomosynthesis screening BI Accession Number(s): [id number] cc: Ernie Merritt MD EXAMINATION: MM SCREENING [...] 01/13/25 1447 DD/ 1000 TD/TT: 01/05/25 1015 Deicer Inspector Pneumatic: Procedure Note Donotuseinterpreter, Image - 01/13/2025 [facility] [address] [place] [address] [place] [address] Mammography Report Signed Patient: Miguelina Julien#: [id number] 12 : 1965Acct:[id number] Age/Sex: 59 / FADM Date: 01/05/25 Loc: DANIELE Attending Dr: Ernie Merritt MD Ordering Physician: Ernie Merritt MDResu lts: 1Negative Date of Service: 01/05/25Follow Up: 1 Year From Orig inal Mammogram Procedure(s): MM tomosynthesis screening BI Accession Number(s): [id number] cc: Ernie Merritt MD EXAMINATION: MM SCREENING [...] 01/13/25 1447 DD/ 1000 TD/TT: 01/05/25 1015 Deicer Inspector Pneumatic: Ernie Ro MD IMG BI PROCEDURES Fin al Result * (ABNORMAL) Hm Colonoscopy (03/18/2024) Pathologist [facility] Colonoscopy Abnormal( A) Normal Comment:Tubular Adenoma 03/18/2024 Historical Provider HEALTH MAINTENANCE Final Result * Hepatitis C Antibody with Reflex to HCV, RNA, Quantitative, Real-Time PCR (11/07/2022 8:24 AM EST) Hepatitis C Antibody NON-REACT TAMARA NON-REACT TAMARA [facility] Index 0.12 <1.00 [facility] Comment: HCV antibody was non-reactive. There is no laboratory evidence of HCV infection. In most cases, no further action is required. However, if recent HCV exposure is suspected, a test for HCV RNA (test code 35920) is suggested. For additional information please refer to http://Airpush.voxapp/faq/CQZ96e7 (This link is being provided for informational/ educational purposes only.) Blood Venous blood specimen / Unknown 11/07/2022 8:24 AM EST 11/07/2022 8:25 AM EST Narrative [facility] - 11/08/2022 12:51 AM EST FASTING:YES FASTING: YES Ernie Ro MD LAB BLOOD ORDERABLES Final Result [address], [place] [address] [facility], ([address]) [place] [address] * HPV E6/E7 RFLX SERGIO 16 18/45 (12/19/2020 3:40 PM EST) HPV 16 RNA [facility] HPV 18/45 RNA [facility] HPV E6 E7 ADD [facility] HPV mRNA E6/E7 rflx Not Detected Not Detected [facility] Comment: Methodology: Faculty Support Coordinator-Mediated Amplification This assay detects E6/E7 viral messenger RNA (mRNA) from 14 high-risk HPV types (16,18,31,33,35,39,45,51,52,56,58,59,66,68). The analytical performance characteristics of this assay have been determined by [facility]. The modifications have not been cleared or approved by the FDA. This assay has been validated pursuant to the CLIA regulations and is used for clinical purposes. For additional information, please refer to http://Airpush.voxapp/faq/STB426s5 (This link if provided for information/ educational purposes only.) THIS TEST WAS PERFORMED AT: [facility] [address] [place] [address],[place] [address] FLACA ANTONY MD 12/19/2020 3:40 PM EST us Historical Provider HISTORICAL/NON ORDERABLE LABS Final Result [facility] [address] from Last 3 Months or Most Recently Relevant to Health Maintenance Insurance [facility] C3 [facility]AL[facility] [place] [address] Care Teams Audience Development Manager Relationship Specialty Start Date End Date Ernie Noriega MD [address] [place] [address] [place] [address] PCP - General Internal Medicine 08/25/19 [place] A 06/07/25
--- OUTSIDE RECORDS SUMMARY | 2025-10-10 11:52 | XMS_ITS | Encounter Summary ---
Author Organization [facility] Address [address] [place] [address] Care Team Providers Care Principal Strategist Name Role Phone Ernie Merritt Primary Care Provider + Encounter Details Date Type Department Care Team (Late st Contact Info) Description 10/10/2025 Telephone [facility] [address] [place] [address] Fang Altamirano NP [address] [place] [address] Social History Tobacco Use Types [...] encounter Miscellaneous Notes * Telephone Encounter - Leela Rico [place] - 10/10/2025 8:48 AM EST Please note a second fax came in for the refill: [facility]: [id number] Prescriber Mady Romo PA-C This document is saved in Media w/ document ID [id number] * Telephone Encounter - Leela Rico MA - 10/10/2025 8:30 AM EST Received another prior auth request from [employer] for med DULoxetine DR 30 mg capsule. [facility]: [id number] Prescriber: Heidi Knott PA-C Documentation is saved in Media. Please notify the prescriber and/or NSG of outcome. Please note TE from 10/02/2025 states the pharmacy does require a prior auth. documented in this encounter Plan of Treatment Upcoming Encounters Date Type Department Care Team (Late st Contact Info) Description 02/14/2026 1:15 PM EDT Follow-Up [facility] [address] [place] [address] Christopher Peres MD [address] [place] [address] documented as of this encounter Visit Diagnoses Not on filedocumented in this encounter Care Teams Principal Strategist Relationship Specialty Start Date End Date Ernie Merritt [address] [place] [address] PCP - General Internal Medicine 11/29/24 documented as of this encounter
--- OUTSIDE RECORDS SUMMARY | 2025-10-10 11:52 | XMS_ITS | Encounter Summary ---
Author Organization [employer] Address 75 [facility] 7t [place] [address] Care Team Providers Care Viticulture Teacher Name Role Phone Ernie Noriega MD Primary Care Provide r Reason for Visit * Reason Onset Date Comments Med Refill 10/27/2023 Encounter Details Date Type Department Care Team (Late st Contact Info) Description 10/27/2023 Refill [facility] [address] [place] [address] Ernie Noriega MD [address] [place] [address] Mild persistent asthma without complication; Pain; Chronic [...] [facility] [address] [place] [address] 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 RN 505 [place] [address] documented as of this encounter Visit Diagnoses Diagnosis Mild persistent asthma without complication Pain Generalized pain Chronic midline low back pain without sciatica Cervical radiculopathy Brachial neuritis or radiculitis nos documented in this encounter Additional Health Concerns Assessment Noted Time PHQ-9 Depression Total Score: 0 12/02/19 23 2:38 PM EST documented as of this encounter Care Teams Viticulture Teacher Relationship Specialty Start Date End Date Ernie Noriega MD [address] [place] [address] PCP - General Internal Medicine 08/25/19 [place] [facility] 03/31/25 05/25/25 [facility] 05/25/25 06/13/25 [facility] 05/25/25 06/19/25 [place] [facility] 06/07/25 documented as of this encounter
--- OUTSIDE RECORDS SUMMARY | 2025-10-10 11:52 | XMS_ITS | Encounter Summary ---
Author Organization [employer] Address [address] [place] [address] 7t [place] [address] Care Team Providers Care Gasket Notcher Name Role Phone Ernie Noriega MD Primary Care Provide r Encounter Details Date Type Department Care Team (Latest Contact Info) Description 03/07/2021 [facility] Dental, Provider, DDS Social [...] Info) Description 11/27/2025 9:30 AM EST Telemedicine [facility] [address] [place] [address] 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, MARQUISE 505 [place] [address] documented as of this encounter Visit Diagnoses Not on filedocumented in this encounter Care Teams Gasket Notcher Relationship Specialty Start Date End Date Ernie Noriega MD [address] [place] [address] PCP - General Internal Medicine 08/25/19 [place] [place] [facility] 03/31/25 05/25/25 [facility] 05/25/25 06/13/25 [facility] 05/25/25 06/19/25 [place] [facility] 06/07/25 documented as of this encounter
--- OUTSIDE RECORDS SUMMARY | 2025-10-10 11:52 | XMS_ITS | Encounter Summary ---
Author Organization [facility] Address [address] [place] [address] Care Team Providers Care Coder Name Role Phone Ernie Merritt Primary Care Provider + Reason for Visit * Reason Onset Date Comments Med Refill 10/03/2025 Encounter Details Date Type Department Care Team (Late st Contact Info) Description 10/03/2025 Refill [facility] [address] [place] [address] Mady Romo PA [address] [place] [address] Social History Tobacco Use Types Packs/Day Years [...] Info) Description 02/14/2026 1:15 PM EDT Follow-Up [facility] [address] [place] [address] Christopher Peres MD [address] [place] [address] [phone] documented as of this encounter Visit Diagnoses Not on filedocumented in this encounter Care Teams Coder Relationship Specialty Start Date End Date Ernie Merritt [address] [place] [address] PCP - General Internal Medicine 11/29/24 documented as of this encounter
--- OUTSIDE RECORDS SUMMARY | 2025-10-10 11:52 | XMS_ITS | Encounter Summary ---
Author Organization [employer] Address 75 [facility] 7t [place] [address] Care Team Providers Care Studio Assistant Name Role Phone Ernie Noriega MD Primary Care Provide r Reason for Visit * Reason Comments Med Refill Encounter Details Date Type Department Care Team ([facility] st Contact Info) Description 10/16/2023 Refill [facility] [address] [place] [address] Ernie Noriega MD 230 [place], [place] [phone] Pain Social History Tobacco Use Types Packs/Day [...] Description 11/27/2025 9:30 AM EST Telemedicine [facility] 505 [place] [address] 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, RN 505 [place] [address] documented as of this encounter Visit Diagnoses Diagnosis Pain Generalized pain documented in this encounter Additional Health Concerns Assessment Noted Time PHQ-9 Depression Total Score: 0 12/02/19 23 2:38 PM EST documented as of this encounter Care Teams Studio Assistant Relationship Specialty Start Date End Date Ernie Noriega MD [address] [place] [address] PCP - General Internal Medicine 08/25/19 [place] [facility] 03/31/25 05/25/25 [facility] 05/25/25 06/13/25 [facility] 05/25/25 06/19/25 [facility] [facility] 06/07/25 documented as of this encounter
--- OUTSIDE RECORDS SUMMARY | 2025-10-10 11:52 | XMS_ITS | Encounter Summary ---
Author Organization [employer] Address 75 [facility] 7t [place] [address] Care Team Providers Care Town Justice Name Role Phone Ernie Noriega MD Primary Care Provide r Reason for Visit * Reason Comments Med Refill Encounter Details Date Type Department Care Team ([facility] st Contact Info) Description 04/01/2025 Refill [facility] MEDICINE [address] [place] [address] Ernie Noriega MD 230 [place], [place] [phone] Primary hypertension; Seasonal allergies Social History Tobacco [...] [facility] [address] [place] [address] 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, RN 505 [place] [address] documented as of this encounter Visit Diagnoses Diagnosis Primary hypertension Unspecified essential hypertension Seasonal allergies Allergic rhinitis, cause unspecified documented in this encounter Additional Health Concerns Assessment Noted Time PHQ-9 Depression Total Score: 4 01/13/20 25 2:57 PM EDT documented as of this encounter Care Teams Town Justice Relationship Specialty Start Date End Date Ernie Noriega MD [address] [place] [address] PCP - General Internal Medicine 08/25/19 [place] [facility] 03/31/25 05/25/25 [facility] 05/25/25 06/13/25 [facility] 05/25/25 06/19/25 [facility] [facility] 06/07/25 documented as of this encounter
--- OUTSIDE RECORDS SUMMARY | 2025-10-10 11:52 | XMS_ITS | Encounter Summary ---
Author Organization [facility] Address [address] [place] [address] Care Team Providers Care Ice Cream Mixer Name Role Phone Ernie Merritt Primary Care Provider + Encounter Details Date Type Department Care Team (Late st Contact Info) Description 10/10/2025 [facility] Financial Clearance Department [address] [place] [address] [employer], Generic Provider [address] [place], [place] [phone] No Auth required Social History Tobacco Use Types Packs/Day Years [...] Info) Description 02/14/2026 1:15 PM EDT Follow-Up [facility] [address] [place] [address] Christopher Peres MD [address] [place], [place] [phone] documented as of this encounter Visit Diagnoses Not on filedocumented in this encounter Care Teams Ice Cream Mixer Relationship Specialty Start Date End Date Ernie Merritt [address] [place] [address] PCP - General Internal Medicine 11/29/24 documented as of this encounter
--- OUTSIDE RECORDS SUMMARY | 2025-10-10 11:52 | XMS_ITS | Encounter Summary ---
Author Organization [employer] Address 75 [facility] 7t [place] [address] Care Team Providers Care Manager Proposal Name Role Phone Ernie Noriega MD Primary Care Provide r Reason for Visit * Reason Onset Date Comments Med Refill 10/27/2023 Encounter Details Date Type Department Care Team (Late st Contact Info) Description 10/27/2023 Refill [facility] [address] [place] [address] Perlita Woody MD [address] [place] [address] Primary hypertension Social History Tobacco Use Types [...] Info) Description 11/27/2025 9:30 AM EST Telemedicine [facility]S [address] [place] [address] 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 RN 505 [place] [address] documented as of this encounter Visit Diagnoses Diagnosis Primary hypertension Unspecified essential hypertension documented in this encounter Additional Health Concerns Assessment Noted Time PHQ-9 Depression Total Score: 0 12/02/19 23 2:38 PM EST documented as of this encounter Care Teams Manager Proposal Relationship Specialty Start Date End Date Ernie Noriega MD [address] [place] [address] PCP - General Internal Medicine 08/25/19 [place] [facility] 03/31/25 05/25/25 [facility] 05/25/25 06/13/25 [facility] 05/25/25 06/19/25 [place] [facility] 06/07/25 documented as of this encounter
--- OUTSIDE RECORDS SUMMARY | 2025-10-10 11:52 | XMS_ITS | Encounter Summary ---
Author Organization [employer] Address 75 [facility] 7t [place] [address] Care Team Providers Care Artificial Breeding Ranch Supervisor Name Role Phone Ernie Noriega MD Primary Care Provide r Reason for Visit * Reason Onset Date Comments Med Refill 11/04/2023 Encounter Details Date Type Department Care Team ([facility] st Contact Info) Description 11/04/2023 Refill [facility] [address] [place] [address] Ernie Noriega MD 230 [place] [address] Pain Social History Tobacco Use Types Packs/Day Years Used Date Smoking Tobacco: Former Cigarettes Passive Smoke Exposure: Past Smokeless Tobacco: Never Alcohol Use Standard Drinks/Week Comments Never 0 (1 standard drink = 0.6 oz pur e alcohol) Depression Answer Date Recorded Patient Health Questionnaire-9 Score 0 12/02/2022 Housing Stability Answer Date Recorded What is your housing situation today? I have roibn ramírez 07/29/[address] you [...] Upcoming Encounters Date Type Department Care Team ([facility] st Contact Info) Description 11/27/2025 9:30 AM EST Telemedicine [facility] MED [facility]EDS [address] [place] [address] 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, MARQUISE 505 [place] [address] documented as of this encounter Visit Diagnoses Diagnosis Pain Generalized pain documented in this encounter Additional Health Concerns Assessment Noted Time PHQ-9 Depression Total Score: 0 12/02/19 23 2:38 PM EST documented as of this encounter Care Teams Artificial Breeding Ranch Supervisor Relationship Specialty Start Date End Date Ernie Noriega MD [address] [place] [address] PCP - General Internal Medicine 08/25/19 [place] [facility] 03/31/25 05/25/25 [facility] 05/25/25 06/13/25 [facility] 05/25/25 06/19/25 [place] [facility] 06/07/25 documented as of this encounter
--- OUTSIDE RECORDS SUMMARY | 2025-10-10 11:53 | XMS_ITS | Encounter Summary ---
Author Organization [employer] Address [address] [facility] 7t [place] [address] Care Team Providers Care Bulk Station Operator Name Role Phone Ernie Noriega MD Primary Care Provide r Encounter Details Date Type Department Care Team ([facility] [address] Contact Info) Description 12/09/2022 Orders Only [facility] [address] [place] [address] Suha Alexander RN Social History Tobacco Use [...] Care Team ([facility] [address] Contact Info) Description 11/27/2025 9:30 AM EST Telemedicine [facility] [address] [place], [place] [phone] 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, MARQUISE 505 [place] [address] documented as of this encounter Procedures Procedure Name Priority Date/Time Associated Diagnosis Comments BI MAMMOGRAM SCREENING TOMOSYNTHESIS BILATERAL Routine 12/23/2022 11:35 AM EDT documented in this encounter Results * BI Mammogram Screening Tomosynthesis Bilateral (12/23/2022 11:35 AM EDT) Anatomical Region Laterality Modality Breast Bilateral Mammography 12/23/2022 11:3 5 AM EDT Narrative 12/24/2022 5:15 PM EDT [place] [facility] [address] [place] [address] Mammography Report Signed Patient: Miguelina Watson MR#: [id number] : 1965 Acct:[id number] Age/Sex: 57 / F ADM Date: 12/23/22 Loc: HOSOHEILA Attending Dr: Ernie Merritt MD Ordering Physician: Ernie Merritt MD Resu lts: 1Negative Date of Service: 12/23/22 Follow Up: 1 Year From Orig inal Mammogram Procedure(s): MM tomosynthesis screening BI Accession Number(s): [id number] cc: Ernie Merritt MD EXAMINATION: MM SCREENING [...] in OV> 12/24/22 1712 DD/ 1135 TD/TT: Design Coordinator: SMITHA Procedure Note Donotuseinterpreter, Image - 12/24/2022 [place] [facility] [address] [place] [address] Mammography Report Signed Patient: Miguelina Watson#: [id number] : 1965Acct:[id number] Age/Sex: 57 / FADM Date: 12/23/22 Loc: HO.TYLER Attending Dr: Ernie Merritt MD Ordering Physician: Ernie Merritt MDResu lts: 1Negative Date of Service: 12/23/22Follow Up: 1 Year From Orig inal Mammogram Procedure(s): MM tomosynthesis screening BI Accession Number(s): [id number] cc: Ernie Merritt MD EXAMINATION: MM SCREENING [...] in OV> 12/24/22 1712 DD/ 1135 TD/TT: Design Coordinator: SMITHA [facility] External Provider IMG BI PROCEDURES Edited Result - Final documented in this encounter Visit Diagnoses Not on filedocumented in this encounter Additional Health Concerns Assessment Noted Time PHQ-9 Depression Total Score: 0 12/02/19 23 2:38 PM EST documented as of this encounter Care Teams Bulk Station Operator Relationship Specialty Start Date End Date Ernie Noriega MD [address] [place] [address] PCP - General Internal Medicine 08/25/19 [place] [facility] 03/31/25 05/25/25 [facility] 05/25/25 06/13/25 [facility] 05/25/25 06/19/25 [facility] 06/07/25 documented as of this encounter
--- OUTSIDE RECORDS SUMMARY | 2025-10-10 11:53 | XMS_ITS | Encounter Summary ---
Author Organization [facility] Address [address] [place] [address] 7t [place] [address] Care Team Providers Care Global Sourcing Manager Name Role Phone Ernie Noriega MD Primary Care Provide r Encounter Details Date Type Department Care Team (Late st Contact Info) Description 10/03/2022 Orders Only [facility] MEDICINE [address] [place] [address] Suha Alexander, RN Social History Tobacco Use [...] Info) Description 11/27/2025 9:30 AM EST Telemedicine [facility] MED [facility] PEDS 505 [place] [address] 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, MARQUISE 505 [place] [address] documented as of this encounter Visit Diagnoses Not on filedocumented in this encounter Care Teams Global Sourcing Manager Relationship Specialty Start Date End Date Ernie Noriega MD [address] [place] [address] PCP - General Internal Medicine [facility] 05/25/25 06/13/25 [facility] 05/25/25 06/19/25 [place] [facility] 06/07/25 documented as of this encounter
--- OUTSIDE RECORDS SUMMARY | 2025-10-10 11:53 | XMS_ITS | Encounter Summary ---
Author Organization [employer] Address 75 [facility] 7t [place] [address] Care Team Providers Care Patient Services Technician Name Role Phone Ernie Noriega MD Primary Care Provide r Reason for Visit * Reason Comments Med Refill Encounter Details Date Type Department Care Team ([facility] st Contact Info) Description 12/25/2023 Refill [facility] MEDICINE [address] [place] [address] Ernie Noriega MD 230 [place], [place] [phone] Pain; Primary hypertension; Seasonal allergies Social History [...] 9:30 AM EST Telemedicine [facility] MED [facility] PEDS 505 [place] [address] 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, RN 505 [place] [address] documented as of this encounter Visit Diagnoses Diagnosis Pain Generalized pain Primary hypertension Unspecified essential hypertension Seasonal allergies Allergic rhinitis, cause unspecified documented in this encounter Additional Health Concerns Assessment Noted Time PHQ-9 Depression Total Score: 0 12/02/19 23 2:38 PM EST documented as of this encounter Care Teams Patient Services Technician Relationship Specialty Start Date End Date Ernie Noriega MD [address] [place] [address] PCP - General Internal Medicine 08/25/19 [place] [facility] 03/31/25 05/25/25 [facility] 05/25/25 06/13/25 [facility] 05/25/25 06/19/25 [place] [facility] 06/07/25 documented as of this encounter
--- OUTSIDE RECORDS SUMMARY | 2025-10-10 11:53 | XMS_ITS | Encounter Summary ---
Author Organization [employer] Address [address] [place] [address] Care Team Providers Care Photogrammetric Surveyor Name Role Phone Ernie Noriega MD Primary Care Provide r Reason for Visit * Reason Onset Date Comments Med Refill Referral 12/10/2022 Patient walked i n requesting for referral to a neurologist. It is difficult for her to walk and do her [place] activities. Pt has had [facility] go to her house for therapy, but it has not made any improvements. Encounter Details Date Type Department Care Team (Late st Contact Info) Description 12/10/2022 Refill [facility] [address] [place], [place] [phone] Ernie Noriega MD [address] [place], [place] [phone] Pain Social History Tobacco Use Types Packs/Day [...] do her [place] activities. Pt has had [facility] go to her house for therapy, but it has not made any improvements. documented in this encounter Plan of Treatment Upcoming Encounters Date Type Department Care Team (Late st Contact Info) Description 11/27/2025 9:30 AM EST Telemedicine [facility] MED & PEDS [address] [place] [address] 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, RN [address] [place] [address] documented as of this encounter Visit Diagnoses Diagnosis Pain Generalized pain documented in this encounter Additional Health Concerns Assessment Noted Time PHQ-9 Depression Total Score: 0 12/02/19 23 2:38 PM EST documented as of this encounter Care Teams Photogrammetric Surveyor Relationship Specialty Start Date End Date Ernie Noriega MD [address] [place] [address] PCP - General Internal Medicine 08/25/19 [facility] 03/31/25 05/25/25 [facility] 05/25/25 06/13/25 [facility] 05/25/25 06/19/25 [facility] 06/07/25 documented as of this encounter
--- OUTSIDE RECORDS SUMMARY | 2025-10-10 11:53 | XMS_ITS | Encounter Summary ---
Author Organization [employer] Address [address] [place] [address] Care Team Providers Care Aids Social Worker Name Role Phone Ernie Noriega MD Primary Care Provide r Reason for Visit * Reason Onset Date Comments Med Refill 09/18/2023 Encounter Details Date Type Department Care Team (Late st Contact Info) Description 09/18/[address] [facility]S [address] [place] [address] Ernie Noriega MD [address] [place] [address] Chronic midline low back pain without sciatica; [...] Upcoming Encounters Date Type Department Care Team ([facility] st Contact Info) Description 11/27/2025 9:30 AM EST Telemedicine [facility] [address] [place] [address] 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, MARQUISE [address] [place] [address] documented as of this encounter Visit Diagnoses Diagnosis Chronic midline low back pain without sciatica Cervical radiculopathy Brachial neuritis or radiculitis nos documented in this encounter Additional Health Concerns Assessment Noted Time PHQ-9 Depression Total Score: 0 12/02/19 23 2:38 PM EST documented as of this encounter Care Teams Aids Social Worker Relationship Specialty Start Date End Date Ernie Noriega MD [address] [place] [address] PCP - General Internal Medicine 08/25/19 [facility] 03/31/25 05/25/25 [facility] 05/25/25 06/13/25 [facility] 05/25/25 06/19/25 [facility] 06/07/25 documented as of this encounter
--- OUTSIDE RECORDS SUMMARY | 2025-10-10 11:53 | XMS_ITS | Encounter Summary ---
Author Organization [employer] Address [address] [facility] [address] [place] [address] Care Team Providers Care Office Machine Mechanic Name Role Phone Ernie Noriega MD Primary Care Provide r Reason for Visit * Reason Comments Med Refill Encounter Details Date Type Department Care Team ([facility] Contact Info) Description 10/11/2023 Refill [facility] [address] [place] [address] Ernie Noriega MD [address] [place], [place] [phone] Social History Tobacco Use Types Packs/Day Years [...] [facility] [address] [place] [address] 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, RN [address] [place] [address] documented as of this encounter Visit Diagnoses Not on filedocumented in this encounter Additional Health Concerns Assessment Noted Time PHQ-9 Depression Total Score: 0 12/02/19 23 2:38 PM EST documented as of this encounter Care Teams Office Machine Mechanic Relationship Specialty Start Date End Date Ernie Noriega MD [address] [place] [address] PCP - General Internal Medicine 08/25/19 [facility] 03/31/25 05/25/25 [facility] 05/25/25 06/13/25 [facility] 05/25/25 06/19/25 [facility] 06/07/25 documented as of this encounter
--- OUTSIDE RECORDS SUMMARY | 2025-10-10 11:53 | XMS_ITS | Encounter Summary ---
Author Organization [employer] Address [address] [place] [address] [address] [place] [address] Care Team Providers Care State Game Warden Name Role Phone Ernie Noriega MD Primary Care Provide r Reason for Visit * Reason Onset Date Comments Medication Question 10/03/2022 returning call 10/03/2022 Encounter Details Date Type Department Care Team ([facility] st Contact Info) Description 10/03/2022 Telephone [facility] [address] [place] [address] Ernie Noriega MD [address] [place] [address] Medication Question; returning call Social History Tobacco [...] pt returning call Please contact pt at [phone] * Telephone Encounter - Peg Scott RN - 10/10/2022 11:17 AM EST T/C placed to pt x2AM re below message. No answer, left v/m. Will retask to [facility] nurses for third attempt. * Telephone Encounter - Peg Scott RN - 10/08/2022 3:32 PM EST Incoming T/C from Sylvia CAMARILLO from [facility]. She states spoke with [employer]TER who saw pt 09/24. It is not in the OV note (which is located in Epic under Media tab) but that pt reported pain during appt and [employer] PR[employer]TER advised pt speak to her PCP and [...] next month with PCP. Will send to [facility] to attempt second call. [place] sending to PCP as FYI. * Telephone Encounter - Peg Scott RN - 10/08/2022 10:34 AM EST Reviewed most recent note from [facility]. No mention of increased dose. T/C placed to them who stated they don't see anything but will send message to provider who is out onvacation and will be back next week. Provided my direct ext for call back. * Telephone Encounter - Marjorie Bass - 10/03/2022 10:42 AM EST Tc from pt calling to inform was told by her [facility] DR to request [...] Info) Description 11/27/2025 9:30 AM EST Telemedicine [facility] P[facility]S [address] [place] [address] 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, RN [address] [place] [address] documented as of this encounter Visit Diagnoses Not on filedocumented in this encounter Care Teams State Game Warden Relationship Specialty Start Date End Date Ernie Noriega MD [address] [place] [address] PCP - General Internal Medicine 08/25/19 [facility] 03/31/25 05/25/25 [facility] 05/25/25 06/13/25 [facility] 05/25/25 06/19/25 [facility] 06/07/25 documented as of this encounter
--- OUTSIDE RECORDS SUMMARY | 2025-10-10 11:53 | XMS_ITS | Encounter Summary ---
Author Organization [facility] Address [address] [place] [address] Care Team Providers Care Gore Stitcher Name Role Phone Ernie Merritt Primary Care Provider + Encounter Details Date Type Department Care Team (Late st Contact Info) Description 04/11/2025 [employer] Fin[employer] Message [facility] Operating Room [address] [place] [address] [employer] [facility], Generic Provider [address] [place], [place] [phone] Questionnaire Submission Social History Tobacco Use Types [...] Info) Description 02/14/2026 1:15 PM EDT Follow-Up [facility] [address] [place] [address] Christopher Peres MD [address] [place] [address] documented as of this encounter Visit Diagnoses Not on filedocumented in this encounter Care Teams Gore Stitcher Relationship Specialty Start Date End Date Ernie Merritt [address] [place] [address] PCP - General Internal Medicine 11/29/24 documented as of this encounter
--- OUTSIDE RECORDS SUMMARY | 2025-10-10 11:53 | XMS_ITS | Encounter Summary ---
Author Organization [email or web address] Address [address] [place] [address] [address] [place] [address] Care Team Providers Care Support Director Name Role Phone Ernie Noriega MD Primary Care Provide r Reason for Visit * Reason Onset Date Comments verbal order 11/21/2022 Encounter Details Date Type Department Care Team (Late st Contact Info) Description 11/21/2022 Telephone [facility] [address] [place] [address] Ernie Noriega MD [address] [place] [address] verbal order Social History Tobacco Use Types [...] 1:08 PM EST Tc from Baldemar from [facility] calling to inform pt started home services today . Baldemar is also requesting a verbal order for pt to start physical therapy for 2x a week for 4 weeks . Best contact # [phone]. documented in this encounter Plan of Treatment Upcoming Encounters Date Type Department Care Team (Late st Contact Info) Description 11/27/2025 9:30 AM EST Telemedicine [facility]S [address] [place] [address] 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, MARQUISE [address] [place] [address] documented as of this encounter Visit Diagnoses Not on filedocumented in this encounter Care Teams Support Director Relationship Specialty Start Date End Date Ernie Noriega MD [address] [place] [id number] PCP - General Internal Medicine 08/25/19 [facility] 03/31/25 05/25/25 [facility] 05/25/25 06/13/25 [facility] 05/25/25 06/19/25 [facility] 06/07/25 documented as of this encounter
== END 2025-10-10 10:16 | disposition home or self-care (01) ==
LOC: HO.HWSM 09:21
PROVIDERS: PCP Internal Medicine; Visit Provider Advanced Practice Midwife
DX: Z01.419 Encounter for gynecological examination (general) (routine) without abnormal findings (principal); Z12.39 Encounter for other screening for malignant neoplasm of breast; Z12.4 Encounter for screening for malignant neoplasm of cervix; M54.40 Lumbago with sciatica, unspecified side; G89.29 Other chronic pain
CPT/HCPCS: 99396; 99459

== ENCOUNTER 2025-10-10 09:21 | Outpatient (REF) | payer MEDICAID, SELFPAY ==
[2025-10-10 22:32] LABS: Bacterial Vaginosis PCR NEGATIVE (Negative); Candida Group PCR NOT DETECTED (Not Detect); Candida glab krusei PCR NOT DETECTED (Not Detect); Trichomonas vaginalis PCR NOT DETECTED (Not Detect)
== END 2025-10-10 09:22 | disposition home or self-care (01) ==
LOC: HO.LNP 09:21
PROVIDERS: PCP Internal Medicine; Visit Provider Advanced Practice Midwife
DX: Z01.419 Encounter for gynecological examination (general) (routine) without abnormal findings (principal); Z12.39 Encounter for other screening for malignant neoplasm of breast; G89.29 Other chronic pain; M54.40 Lumbago with sciatica, unspecified side; K59.00 Constipation, unspecified; B02.9 Zoster without complications; Z80.41 Family history of malignant neoplasm of ovary
CPT/HCPCS: 81515; 87626; 88175